=== PATIENT | female | born 1950 | race Caucasian/White ===

== ENCOUNTER 2016-08-09 09:53 | Emergency (ER) | payer OTHER, MEDICARE ==
[2016-08-09 09:59] VITALS: TEMP 98.5; BMI 39.1
--- NOTE | 2016-08-09 10:20 | PDOC ---
History of Present Illness - General History Source: Patient Exam Limitations: No Limitations - History of Present Illness Initial Comments: 08/09/16 10:45 The patient is a 65 year old female, with a significant past medical history of mantle cell lymphoma, NIDDM, diverticulitis, anxiety, bladder dysfunction, HTN, and ITP who presents to the emergency department with bilateral leg discoloration. She also has chief complaints of SOB for 3 months and some change in mental status which she attributes to her xanax. She reports her SOB is often made worse with any strenuous activity. She denies recent fevers, chills, headache or dizziness. She denies recent nausea, vomit, diarrhea or constipation. She denies recent dysuria, frequency, urgency or hematuria. She denies recent chest pain. Allergies: As per nursing notes. Past surgical history: Splenectomy, cervical laminectomy x2 Social history: Nonsmoker. Denies EtOH use and drug use. PCP: <Rich Soliman - Last Filed: 08/09/16 11:40> - General History Source: Patient Exam Limitations: No Limitations <Madisyn Hinkle - Last Filed: 08/09/16 12:43> - General Stated Complaint: LEG DISCOLORATION Time Seen by Provider: 08/09/16 10:17 Past History <Rich Soliman - Last Filed: 08/09/16 11:40> - Past Medical History Anemia: No Asthma: No Cancer: Yes (lymphoma) Cardiac Disorders: No CVA: No COPD: No CHF: No Dementia: No Diabetes: Yes (niddm) GI Disorders: Yes (DIVERTICULITIS) Disorders: Yes (bladder dysfunction) HTN: No Hypercholesterolemia: No Liver Disease: No Psychiatric Problems: Yes (ANXIETY) Seizures: No Thyroid Disease: No - Surgical History Abdominal Surgery: Yes (SPLEENECTOMY) Appendectomy: No Cardiac Surgery: No Cholecystectomy: No Lung Surgery: No Neurologic Surgery: (cervical laminectomy x 2) Orthopedic Surgery: Yes (Anterior and posterior cervical laminectomy with fusion ) - Psycho/Social/Smoking Cessation Hx Anxiety: Yes Suicidal Ideation: No Smoking Status: No Smoking History: Never smoked Have you smoked in the past 12 months: No Number of Cigarettes Smoked Daily: 0 If you are a former smoker, when did you quit?: 2001 Information on smoking cessation initiated: No Hx Alcohol Use: No Drug/Substance Use Hx: No Substance Use Type: None Hx Substance Use Treatment: No <Madisyn Hinkle - Last Filed: 08/09/16 12:43> - Past Medical History Allergies/Adverse Reactions: Allergies Allergy/AdvReac Type Severity Reaction Status Date / Time ciprofloxacin HCl Allergy Intermediate Itching Verified 08/09/16 09:59 [From Cipro] levofloxacin [From Levaquin] Allergy Intermediate Rash Verified 08/09/16 09:59 atorvastatin calcium Allergy Mild muscle Verified 08/09/16 09:59 [From Lipitor] aches Home Medications: Ambulatory Orders Sertraline HCl [Zoloft -] 25 mg PO DAILY 08/28/14 Lisinopril [Prinivil] 10 mg PO DAILY #30 tablet 09/09/14 Alprazolam [Xanax] 0.5 mg PO Q8H PRN #0 tablet 09/10/14 Morphine *Sr* [MS Contin -] 30 mg PO TID #0 tablet.sa 09/10/14 Pantoprazole Sodium [Protonix -] 40 mg PO DAILY #0 tablet.ec 09/10/14 Glipizide [Glucotrol Xl] 5 mg PO BID 11/12/15 Metformin HCl [Metformin HCl ER] 1,000 mg PO BID 03/31/16 Morphine Sulfate 15 mg PO QID PRN 03/31/16 Pregabalin [Lyrica] 25 mg PO DAILY 03/31/16 Allopurinol [Zyloprim -] 150 mg PO DAILY #60 tablet 04/07/16 Amlodipine Besylate 10 mg PO DAILY #30 tablet 04/07/16 Amlodipine Besylate [Norvasc -] 5 mg PO DAILY #30 tablet 04/07/16 Prednisone [Deltasone] 50 mg PO DAILY #42 tablet 04/07/16 Review of Systems - Review of Systems Able to Perform ROS?: Yes Comments:: 08/09/16 10:45 GENERAL/CONSTITUTIONAL: No: fever, chills, weakness, loss of appetite. HEAD, EYES, EARS, NOSE AND THROAT: No: change in vision, ear pain, discharge, sore throat, throat swelling. CARDIOVASCULAR: No: chest pain, lightheadedness, palpitations, syncope RESPIRATORY: +SOB. No: cough, wheezing, hemoptysis, stridor. GASTROINTESTINAL: No: nausea, vomiting, diarrhea, abdominal cramping, rectal bleeding, constipation. GENITOURINARY: No: dysuria, hematuria, frequency, urgency, flank pain. MUSCULOSKELETAL: No: back pain, neck pain, joint pain, muscle swelling or pain SKIN : +bilateral leg discoloration. No: lesions, pallor, rash or easy bruising. NEUROLOGIC: No: headache, vertigo, paresthesias, weakness ENDOCRINE: No: unexplained weight gain or loss HEMATOLOGIC/LYMPHATIC: No: anemia, easy bleeding, swelling nodes. <Rich Soliman - Last Filed: 08/09/16 11:40> *Physical Exam - Vital Signs Last Vital Signs Temp Pulse Resp BP Pulse Ox 98.5 F 95 H 18 159/96 95 08/09/16 09:54 08/09/16 09:54 08/09/16 09:54 08/09/16 09:54 08/09/16 09:54 - Physical Exam Comments: 08/09/16 11:02 GENERAL: The patient is in no acute distress. HEAD: Normal with no signs of trauma. EYES: PERRLA, EOMI, sclera anicteric, conjunctiva clear. ENT: Ears normal, nares patent, oropharynx clear without exudates. Moist mucous membranes. NECK: Normal range of motion, supple without lymphadenopathy, JVD, or masses. LUNGS: Questionable faint crackles at the bases. HEART: Regular rate and rhythm, normal S1 and S2 without murmur, rub or gallop. ABDOMEN: Soft, nontender, normoactive bowel sounds. No guarding, no rebound. No masses palpable. EXTREMITIES: Normal range of motion, no edema. No clubbing or cyanosis. No erythema, or tenderness. NEUROLOGICAL: Cranial nerves II through XII grossly intact. Normal speech. No focal neurological deficits. MUSCULOSKELETAL: Back non-tender to palpation, no CVA tenderness SKIN: Lower extremity petechiae. Warm, Dry, normal turgor. <Rich Soliman - Last Filed: 08/09/16 11:40> - Vital Signs Last Vital Signs Temp Pulse Resp BP Pulse Ox 98.5 F 95 H 18 159/96 95 08/09/16 09:54 08/09/16 09:54 08/09/16 09:54 08/09/16 09:54 08/09/16 09:54 <Madisyn Hinkle - Last Filed: 08/09/16 12:43> ED Treatment Course - LABORATORY CBC & Chemistry Diagram: 08/09/16 10:40 08/09/16 10:20 <Rich Soliman - Last Filed: 08/09/16 11:40> - LABORATORY CBC & Chemistry Diagram: 08/09/16 10:40 08/09/16 10:20 <Madisyn Hinkle - Last Filed: 08/09/16 12:43> Medical Decision Making - Medical Decision Making 08/09/16 11:40 Call made to , awaiting call back <Rich Soliman - Last Filed: 08/09/16 11:40> - Medical Decision Making 08/09/16 10:20 A portion of this note was documented by scribe services under my direction. I have reviewed the details of the note, within reason, and agree with the documentation with the following case summary and management plan written by me. Nursing documentation reviewed and incorporated into medical decision making 08/09/16 10:53 This is a 65 yo F with a history mantle cell lymphoma, NIDDM, diverticulitis, anxiety, bladder dysfunction, HTN, and ITP who presents to the emergency department due to bilateral lower extremity purpura/petechiae. Pt denies chest pain Pt reports 3 months of shortness of breath (cxrs in the past nml) Pt was recently admitted to the hospital for ITP (platelet count as low as 8), started on Steroids and IVIG with recovery of her platelet count to nml PT denies headache, head trauma Pt denies hematuria Pt denies rectal bleeding 08/09/16 10:57 Will check labs Will check CXR will re assess Pt may need admission, steroids, IVIG again 08/09/16 11:32 Laboratory Tests 08/09/16 08/09/16 10:20 10:40 WBC 10.8 H D Hgb 10.8 Hct 34.7 BUN 23 H D Creatinine 1.2 H 08/09/16 12:[address] Ty Pt does not follow up in the office He does not think pt needs to be admitted at this time She needs repeat labs in 2 days This was reviewed with Dr Mcfarlane who will see her in the office I have reviewed this with the patient she states she had a prescription for labs written by Karson I have enouraged her to be sure that those labs are reviewed with someone - Denys or Karson Clinical Impression: ITP, petechiae <Madisyn Hinkle - Last Filed: 08/09/16 12:43> *DC/Admit/Observation/Transfer - Attestations Scribe Attestion: 08/09/16 10:24 Documentation prepared by Rich Soliman, acting as biomedical engineering professor for Madisyn Hinkle MD. <Rich Soliman - Last Filed: 08/09/16 11:40> - Discharge Dispostion Admit: No <Madisyn Hinkle - Last Filed: 08/09/16 12:43> Diagnosis at time of Disposition: ITP (idiopathic thrombocytopenic purpura) - Discharge Dispostion Disposition: HOME Condition at time of disposition: Stable - Referrals Referrals: Subhash Mcfarlane MD [Primary Care Provider] - Rafael Ty MD [Staff Physician] - - Patient Instructions Printed Discharge Instructions: DI for Petechiae Additional Instructions: Thank you for coming in to the Er Please re check your CBC in 2 days Please follow up with Karson leon/or Denys in 2 days Return to the ER for any other concerns or complaints
[2016-08-09 10:50] LABS: BASOPHIL 1.1 % (0-2.0); EOSINOPHIL 2.9 % (0-4.5); MEAN CELL VOLUME 83.8 fl (80-96); MEAN PLT VOLUME 10.3 fl (7.5-11.1); RDW 17.3 % (11.6-15.6); WHITE BLOOD COUNT 10.8 K/mm3 (4.0-10.0)
[2016-08-09 11:20] LABS: ALBUMIN 3.4 g/dl (3.4-5.0); BILIRUBIN,TOTAL 0.2 mg/dL (0.2-1.0); CALCIUM 8.7 mg/dL (8.5-10.1); CREATININE 1.2 mg/dL (0.55-1.02); TOT PROT 7.5 g/dl (6.4-8.2)
[2016-08-09 11:34] LABS: PLATELET COUNT 50 K/MM3 (134-434)
[2016-08-09 11:37] LABS: INR 1.04 (0.82-1.09); PROTHROMBIN TIME (PATIENT) 11.5 SEC (9.98-11.88)
[2016-08-09 13:28] VITALS: BP 133/88; PULSE 68
== END 2016-08-09 12:45 | disposition home or self-care (01) ==
LOC: JER 09:53
DX: D69.3 Immune thrombocytopenic purpura (principal); C85.80 Other specified types of non-Hodgkin lymphoma, unspecified site; E11.9 Type 2 diabetes mellitus without complications; Z79.84 Long term (current) use of oral hypoglycemic drugs; I10 Essential (primary) hypertension; F41.9 Anxiety disorder, unspecified; N31.9 Neuromuscular dysfunction of bladder, unspecified
CPT/HCPCS: 36415; 71010-TC; 80053; 85025; 85610; 86850; 86900; 86901; 99282-25

== ENCOUNTER 2016-10-22 16:47 | Inpatient (IN) | payer OTHER, MEDICARE ==
[2016-10-22] MEDS ORDERED: ALPRAZolam 0.25 MG TABLET PO ONE (17:42)
[2016-10-22] MEDS ORDERED: ALPRAZolam 0.25 MG TABLET ONE (17:51)
[2016-10-22 18:18] LABS: EOSINOPHIL 1.7 % (0-4.5); MCH 23.9 pg (25.7-33.7); MCHC 30.5 g/dl (32.0-36.0); MEAN CELL VOLUME 78.2 fl (80-96); MEAN PLT VOLUME 12.4 fl (7.5-11.1); NEUTROPHILS 78.4 % (42.8-82.8); RDW 18.2 % (11.6-15.6); WHITE BLOOD COUNT 12.3 K/mm3 (4.0-10.0)
--- NOTE | 2016-10-22 18:22 | PDOC ---
History of Present Illness <Guanakito Cronin - Last Filed: 10/22/16 19:31> - General History Source: Patient, Family, Old Records Exam Limitations: No Limitations - History of Present Illness Initial Comments: 10/22/16 18:23 The patient is a 66 year old female presemting with her family, with a significant past medical history of mantle cell lymphoma, NIDDM, diverticulitis , anxiety, bladder dysfunction, HTN, and ITP, who presents to the emergency department after being sent by her PMD with bilateral lower extremity petechiae. She notes that the petechiae is mostly localized in the legs, from the ankle to the knees. She denies any kind of trauma. She denies any kind of bleeding from any sites. She states that her last platelet count was drawn on 10/10/2016 and was 50. She notes that she has been to the ED in the past for similar episodes. She also reports shortness of breath and nausea associated with her chief complaint. The patient denies chest pain, headache and dizziness. Denies fever, chills, cough, nausea, vomit, diarrhea and constipation. Denies dysuria, frequency, urgency and hematuria. Allergies: levofloxacin, lipitor, ciprofloxacin HCl Past surgical history: Splenectomy, cervical laminectomy x2 Social history: Nonsmoker. Denies EtOH use and drug use. PMD - Dr. Subhash Mcfarlane Oncologist - Dr. Rafael yT <Vipul Mills - Last Filed: 10/22/16 19:56> - General Chief Complaint: Redness To Affected Area Stated Complaint: PCP SENT/BLEEDING FROM LEGS/LOW PLATELET Time Seen by Provider: 10/22/16 17:40 Past History - Past Medical History Anemia: No Asthma: No Cancer: Yes (lymphoma) Cardiac Disorders: No CVA: No COPD: No CHF: No Dementia: No Diabetes: Yes (niddm) GI Disorders: Yes (DIVERTICULITIS) Disorders: Yes (bladder dysfunction) HTN: No Hypercholesterolemia: No Liver Disease: No Psychiatric Problems: Yes (ANXIETY) Seizures: No Thyroid Disease: No - Surgical History Abdominal Surgery: Yes (SPLEENECTOMY) Appendectomy: No Cardiac Surgery: No Cholecystectomy: No Lung Surgery: No Neurologic Surgery: (cervical laminectomy x 2) Orthopedic Surgery: Yes (Anterior and posterior cervical laminectomy with fusion ) - Psycho/Social/Smoking Cessation Hx Anxiety: Yes Suicidal Ideation: No Smoking Status: No Smoking History: Never smoked Have you smoked in the past 12 months: No Number of Cigarettes Smoked Daily: 0 If you are a former smoker, when did you quit?: 2001 Information on smoking cessation initiated: No Hx Alcohol Use: No Drug/Substance Use Hx: No Substance Use Type: None Hx Substance Use Treatment: No <Guanakito Cronin - Last Filed: 10/22/16 19:31> <Vipul Mills - Last Filed: 10/22/16 19:56> - Past Medical History Allergies/Adverse Reactions: Allergies Allergy/AdvReac Type Severity Reaction Status Date / Time ciprofloxacin HCl Allergy Intermediate Itching Verified 10/22/16 16:49 [From Cipro] levofloxacin [From Levaquin] Allergy Intermediate Rash Verified 10/22/16 16:49 atorvastatin calcium Allergy Mild muscle Verified 10/22/16 16:49 [From Lipitor] aches Home Medications: Ambulatory Orders Sertraline HCl [Zoloft -] 25 mg PO DAILY 08/28/14 Lisinopril [Prinivil] 10 mg PO DAILY #30 tablet 09/09/14 Alprazolam [Xanax] 0.5 mg PO Q8H PRN #0 tablet 09/10/14 Morphine *Sr* [MS Contin -] 30 mg PO TID #0 tablet.sa 09/10/14 Pantoprazole Sodium [Protonix -] 40 mg PO DAILY #0 tablet.ec 09/10/14 Glipizide [Glucotrol Xl] 5 mg PO BID 11/12/15 Metformin HCl [Metformin HCl ER] 1,000 mg PO BID 03/31/16 Morphine Sulfate 15 mg PO QID PRN 03/31/16 Allopurinol [Zyloprim -] 150 mg PO DAILY #60 tablet 04/07/16 Albuterol Sulfate Inhaler - [Ventolin Hfa Inhaler -] 1 - 2 inh PO Q4H 08/09/16 Calcium Carbonate 648 mg PO BID 08/09/16 Potassium Citrate [Potassium Citrate ER] 10 meq PO TID 08/09/16 Review of Systems - Review of Systems Constitutional: No: Chills, Fever HEENTM: No: Nose Bleeding Respiratory: No: Cough, Shortness of Breath Cardiac (ROS): No: Chest Pain ABD/GI: No: Blood Streaked Bowels : No: Hematuria Integumentary: Yes: Rash. No: Bruising Neurological: No: Headache All Other Systems: Reviewed and Negative <Guanakito Cronin - Last Filed: 10/22/16 19:31> *Physical Exam - Vital Signs Last Vital Signs Temp Pulse Resp BP Pulse Ox 97.9 F 101 H 18 147/104 93 L 10/22/16 16:50 10/22/16 16:50 10/22/16 16:50 10/22/16 16:50 10/22/16 16:50 <Guanakito Cronin - Last Filed: 10/22/16 19:31> - Vital Signs Last Vital Signs Temp Pulse Resp BP Pulse Ox 97.9 F 101 H 18 147/104 93 L 10/22/16 16:50 10/22/16 16:50 10/22/16 16:50 10/22/16 16:50 10/22/16 16:50 - Physical Exam Comments: 10/22/16 18:23 GENERAL: The patient is awake, alert, and fully oriented, in no acute distress. HEAD: Normal with no signs of trauma. EYES: Pupils equal, round and reactive to light, extraocular movements intact, sclera anicteric, conjunctiva clear with no pallor. ENT: Ears normal, nares patent, oropharynx clear without exudates. Moist mucous membranes. NECK: Normal range of motion, supple without lymphadenopathy, JVD, or masses. LUNGS: Breath sounds equal, clear to auscultation bilaterally. No wheeze/ crackles. HEART: Regular rate and rhythm, normal S1 and S2 without murmur or rub .ABDOMEN: Soft/nontender/nondistended. BS wnl. No guarding or rebound. No palpable masses. No hepatosplenomegaly. EXTREMITIES: Normal range of motion, no edema. No clubbing or cyanosis. No cords , erythema, or tenderness. NEUROLOGICAL: Cranial nerves II through XII grossly intact. Normal speech. PSYCH: Normal mood, normal affect. SKIN: (+) Multiple individual patechiae up the the knee, no confluence or indulgence <Vipul Mills - Last Filed: 10/22/16 19:56> Heart Score/ECG Review #1 ECG reviewed & interpreted by me at: 17:57 General ECG Interpretation: Sinus Rhythm, Normal Rate (99), Normal Intervals ( IRBBB), No acute ischemic changes <Guanakito Cronin - Last Filed: 10/22/16 19:31> ED Treatment Course - LABORATORY CBC & Chemistry Diagram: 10/22/16 18:04 10/22/16 18:04 - Medications Given in the ED: ED Medications Discontinued Medications Generic Name Dose Route Start Last Admin Trade Name Freq PRN Reason Stop Dose Admin Alprazolam 0.5 mg 10/22/16 17:42 10/22/16 17:54 Xanax - PO 10/22/16 17:43 0.5 mg ONCE ONE Administration <Guanakito Cronin - Last Filed: 10/22/16 19:31> - LABORATORY CBC & Chemistry Diagram: 10/22/16 18:04 10/22/16 18:20 - Medications Given in the ED: ED Medications Discontinued Medications Generic Name Dose Route Start Last Admin Trade Name Freq PRN Reason Stop Dose Admin Alprazolam 0.5 mg 10/22/16 17:42 10/22/16 17:54 Xanax - PO 10/22/16 17:43 0.5 mg ONCE ONE Administration <Vipul Mills - Last Filed: 10/22/16 19:56> Medical Decision Making - Medical Decision Making 10/22/16 18:13 66y/o F h/o mantle cell lymphoma and chronic ITP p/w atraumatic and otherwise asymptomatic petechiae to b/l lower legs that began yesterday. no other stigmata of bleeding, sent for platelet check by Dr. Mcfarlane. VSS, O2 98% well appearing b/l individual petechiea to the knees, no confluence/swelling/ecchymosis nvi no other bleeding/brusing check cbc and coags transfuse as needed. has received IVIG for past exacerbations reassess - discuss with Dr. Ty, her dispatcher refinery 10/22/16 18:46 Baseline hemoglobin of 10.2, but platelets decreased at 19,000, down from 50, 000 on 10/10. Will consult with Dr. Ty, will likely need treatment. 10/22/16 19:12 D/W Dr. Orellana, who knows the patient well. Recommends platelet transfusion, prednisone up to 1mg/kg, and admission for IVIG. Pt agrees, no clinical change. Dr. Mcfarlane's service called for admission. 10/22/16 19:31 Accepted for inpatient med/surg by Dr. Mcfarlane. <Guanakito Cronin - Last Filed: 10/22/16 19:31> - Medical Decision Making 10/22/16 19:52 Dr. Ty was called regarding the patient at 6:40pm. Dr. Orellana covering. Dr. Orellana was consulted regarding the patient at 7:08pm [phone] Dr. Mcfarlane was called regarding the patient at 7:09pm Dr. Mcfarlane was consulted regarding the patient at 7:30pm [phone] <Vipul Mills - Last Filed: 10/22/16 19:56> *DC/Admit/Observation/Transfer - Discharge Dispostion Admit: Yes <Guanakito Cronin - Last Filed: 10/22/16 19:31> - Attestations Scribe Attestion: 10/22/16 18:24 Documentation prepared by Vipul Mills, acting as medical investigator for Guanakito Cronin MD <Vipul Mills - Last Filed: 10/22/16 19:56> Diagnosis at time of Disposition: ITP (idiopathic thrombocytopenic purpura), Thrombopenia Mantle cell lymphoma Qualifiers: Lymphoma site: unspecified region Qualified Code(s): C83.10 - Mantle cell lymphoma, unspecified site - Discharge Dispostion Condition at time of disposition: Stable - Referrals
[2016-10-22 18:25] LABS: PLATELET COUNT 19 K/MM3 (134-434)
[2016-10-22 18:46] LABS: INR 1.08 (0.82-1.09); PROTHROMBIN TIME (PATIENT) 11.9 SEC (9.98-11.88)
[2016-10-22 18:48] LABS: ACTIVATED PTT 29.3 SECONDS (26.9-34.4)
[2016-10-22] MEDS ORDERED: predniSONE 20 MG TABLET (UD) PO ONE (19:09)
[2016-10-22] MEDS ORDERED: predniSONE 20 MG TABLET (UD) ONE (19:15)
[2016-10-22 19:32] LABS: ALBUMIN 3.6 g/dl (3.4-5.0); BILIRUBIN,TOTAL 0.3 mg/dL (0.2-1.0); CALCIUM 9.1 mg/dL (8.5-10.1); COCKROFT - GAULT 53.6095; CREATININE 1.7 mg/dL (0.55-1.02); TOT PROT 8.4 g/dl (6.4-8.2)
[2016-10-22] MEDS ORDERED: ALBUTEROL SO4 6.7 GM HFA INHALER IH PRN (20:15)
--- NOTE | 2016-10-22 20:22 | HP ---
Admitting History and Physical - Admission Chief Complaint: Spots on legs History of Present Illness: 66 yo female, h/o ITP, Mantle cell lymphoma with thrombocytopenia, noted spots on legs, similar to petechiae that she has had with previous low platelet readings. Had been hospitalized about 7 months ago with platelets 6000 at that time. Was started at that time on IVIG and Prednisone and responded well. Lately platelets had been dropping, down to 50,000 on 10/10/16. 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 History Source: Patient, Medical Record Limitations to Obtaining History: No Limitations - Past Medical History Cardiovascular: Yes: HTN Pulmonary: Yes: Other (diaphragmatic hernia) Gastrointestinal: Yes: Diverticulitis (osteoarthritis right hip) Renal/: Yes: Renal Calculi, UTI, Other (bladder dysfunction) Heme/Onc: Yes: Thrombocytopenia (s/p splenectomy), Other (lymphoma -Mantle cell) Psych: Yes: Anxiety, Depression Musculoskeletal: Yes: Chronic low back pain, Osteoarthritis (right hip) Rheumatology: Yes: Other (degenerative spine disease) Endocrine: Yes: Diabetes Mellitus - Past Surgical History Past Surgical History: Yes: Laminectomy (cervical laminectomy x2 (2001)), Splenectomy, Thoracotomy - Smoking History Smoking history: Never smoked Have you smoked in the past 12 months: No Aproximately how many cigarettes per day: 0 If you are a former smoker, when did you quit?: 2001 - Alcohol/Substance Use Hx Alcohol Use: No History of Substance Use: reports: None - Social History ADL: Independent 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, , 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 History of Recent Travel: No Home Medications - Allergies Allergies/Adverse Reactions: Allergies Allergy/AdvReac Type Severity Reaction Status Date / Time ciprofloxacin HCl Allergy Intermediate Itching Verified 10/22/16 16:49 [From Cipro] levofloxacin [From Levaquin] Allergy Intermediate Rash Verified 10/22/16 16:49 atorvastatin calcium Allergy Mild muscle Verified 10/22/16 16:49 [From Lipitor] aches - Home Medications Home Medications: Ambulatory Orders Sertraline HCl [Zoloft -] 25 mg PO DAILY 08/28/14 Lisinopril [Prinivil] 10 mg PO DAILY #30 tablet 09/09/14 Alprazolam [Xanax] 0.5 mg PO Q8H PRN #0 tablet 09/10/14 Morphine *Sr* [MS Contin -] 30 mg PO TID #0 tablet.sa 09/10/14 Pantoprazole Sodium [Protonix -] 40 mg PO DAILY #0 tablet.ec 09/10/14 Glipizide [Glucotrol Xl] 5 mg PO BID 11/12/15 Metformin HCl [Metformin HCl ER] 1,000 mg PO BID 03/31/16 Morphine Sulfate 15 mg PO QID PRN 03/31/16 Allopurinol [Zyloprim -] 150 mg PO DAILY #60 tablet 04/07/16 Albuterol Sulfate Inhaler - [Ventolin Hfa Inhaler -] 1 - 2 inh PO Q4H 08/09/16 Calcium Carbonate 648 mg PO BID 08/09/16 Potassium Citrate [Potassium Citrate ER] 10 meq PO TID 08/09/16 Family Disease History - Family Disease History Family Disease History: Heart Disease: Mother, Other: Father (thrombocytopenia) , Daughter (hypothyroidism) Review of Systems - Review of Systems Constitutional: reports: Lethargy. denies: Chills, Fever, Loss of Appetite Eyes: reports: No Symptoms HENT: denies: Difficult Swallowing, Epistaxis Neck: denies: Stiffness Cardiovascular: denies: Chest Pain, Palpitations Respiratory: reports: SOB on Exertion Gastrointestinal: denies: Abdominal Pain, Diarrhea, Melena, Nausea, Rectal Bleeding Genitourinary: denies: Burning, Dysuria Psychiatric: reports: Anxiety Physical Examination Vital Signs: Vital Signs Temperature 98.2 F 10/22/16 19:59 Pulse Rate 89 10/22/16 19:59 Respiratory Rate 18 10/22/16 19:59 Blood Pressure 121/58 10/22/16 19:59 O2 Sat by Pulse Oximetry (%) 94 L 10/22/16 19:59 Constitutional: Yes: Well Nourished, No Distress, Calm Eyes: Yes: Conjunctiva Clear, EOM Intact, PERRL HENT: Yes: Atraumatic, Normocephalic Neck: Yes: Supple, Trachea Midline Cardiovascular: Yes: Regular Rate and Rhythm, S1, S2. No: Murmur Respiratory: Yes: Regular, Diminished (left chest) Gastrointestinal: Yes: Normal Bowel Sounds, Soft, Abdomen, Obese. No: Distention, Tenderness Extremities: Yes: Other (petechiae lower extremities) Edema: No Neurological: Yes: Alert, Oriented Labs: Laboratory Results - last 24 hr 10/22/16 10/22/16 10/22/16 18:04 18:04 18:04 WBC 12.3 H RBC 4.28 Hgb 10.2 L Hct 33.5 MCV 78.2 L MCHC 30.5 L RDW 18.2 H Plt Count 19 L* D MPV 12.4 H D Neutrophils % 78.4 Lymphocytes % 11.1 Monocytes % 7.8 Eosinophils % 1.7 Basophils % 1.0 INR 1.08 PTT (Actin FS) 29.3 Sodium Cancelled Potassium Cancelled Chloride Cancelled Carbon Dioxide Cancelled Anion Gap Cancelled BUN Cancelled Creatinine Cancelled Creat Clearance w eGFR Cancelled Random Glucose Cancelled Calcium Cancelled Total Bilirubin Cancelled AST Cancelled ALT Cancelled Alkaline Phosphatase Cancelled Total Protein Cancelled Albumin Cancelled Blood Type Antibody Screen 10/22/16 10/22/16 18:04 18:20 WBC RBC Hgb Hct MCV MCHC RDW Plt Count MPV Neutrophils % Lymphocytes % Monocytes % Eosinophils % Basophils % INR PTT (Actin FS) Sodium 133 L Potassium 4.3 Chloride 96 L Carbon Dioxide 27 Anion Gap 10 BUN 36 H D Creatinine 1.7 H D Creat Clearance w eGFR 30.07 Random Glucose 104 D Calcium 9.1 Total Bilirubin 0.3 D AST 20 D ALT 14 D Alkaline Phosphatase 89 Total Protein 8.4 H Albumin 3.6 Blood Type A POSITIVE Antibody Screen Negative Problem List - Problems (1) ITP (idiopathic thrombocytopenic purpura) Assessment/Plan: -platelets dropped below 20,000 again -to restart IVIG, Prednisone -to get platelet transfusion for now Code(s): D69.3 - IMMUNE THROMBOCYTOPENIC PURPURA (2) Mantle cell lymphoma Assessment/Plan: -oncology to evaluate (not on active treatment currently) Code(s): C83.10 - MANTLE CELL LYMPHOMA, UNSPECIFIED SITE Qualifiers: Lymphoma site: unspecified region Qualified Code(s): C83.10 - Mantle cell lymphoma, unspecified site (3) Diabetes mellitus Assessment/Plan: -as will be on prednisone, will start insulin sliding scale and antihyperglycemics may hav eto be adjusted Code(s): E11.9 - TYPE 2 DIABETES MELLITUS WITHOUT COMPLICATIONS (4) Diaphragmatic hernia Assessment/Plan: -getting HAUSER due to hernia (eventual repair) Code(s): K44.9 - DIAPHRAGMATIC HERNIA WITHOUT OBSTRUCTION OR GANGRENE (5) HTN (hypertension) Assessment/Plan: -on lisinopril Code(s): I10 - ESSENTIAL (PRIMARY) HYPERTENSION
[2016-10-22] MEDS: INSULIN SLIDING SCALE (NOVOLOG) 1 VIAL SQ SCH (23:12)
[2016-10-22] MEDS: SODIUM CHLORIDE 1,000 ML IV SCH (23:13)
[2016-10-22] MEDS: CALCIUM CARBONATE 650 MG TABLET PO SCH (23:14)
[2016-10-22] MEDS: morphine SO4 SUSTAINED ACTING 30 MG TABLET.SA PO SCH (23:14)
[2016-10-22] MEDS: POTASSIUM CITRATE/CITRIC ACID 2 MEQ/ML ML PO SCH (23:15)
[2016-10-23] MEDS: ALPRAZolam 0.25 MG TABLET PO PRN ×2 (02:58→18:57)
[2016-10-23 05:05] VITALS: BMI 39.9
[2016-10-23] MEDS: INSULIN SLIDING SCALE (NOVOLOG) 1 VIAL SQ SCH ×4 (06:29→22:30)
[2016-10-23] MEDS: POTASSIUM CITRATE/CITRIC ACID 2 MEQ/ML ML PO SCH ×3 (06:30→21:31)
[2016-10-23] MEDS: morphine SO4 SUSTAINED ACTING 30 MG TABLET.SA PO SCH ×3 (06:30→21:33)
[2016-10-23] MEDS: metFORMIN HCL 500 MG TABLET (FP) PO SCH ×2 (06:31→17:27)
[2016-10-23] MEDS: glipiZIDE 5 MG TABLET (FP) PO SCH ×2 (06:31→17:27)
[2016-10-23 07:59] LABS: BASOPHIL 0.4 % (0-2.0); MCH 24.5 pg (25.7-33.7); MCHC 31.2 g/dl (32.0-36.0); MEAN CELL VOLUME 78.5 fl (80-96); MEAN PLT VOLUME 8.4 fl (7.5-11.1); NEUTROPHILS 88.4 % (42.8-82.8); PLATELET COUNT 48 K/MM3 (134-434); RDW 18.3 % (11.6-15.6)
[2016-10-23 08:37] LABS: ALBUMIN 3.4 g/dl (3.4-5.0); BILIRUBIN,TOTAL 0.3 mg/dL (0.2-1.0); COCKROFT - GAULT 59.5085; CREATININE 1.6 mg/dL (0.55-1.02); TOT PROT 8.2 g/dl (6.4-8.2); URIC ACID 5.1 mg/dL (2.6-7.2)
[2016-10-23] MEDS ORDERED: predniSONE 20 MG TABLET (UD) PO SCH (10:00)
[2016-10-23] MEDS: CALCIUM CARBONATE 650 MG TABLET PO SCH ×2 (10:17→21:31)
[2016-10-23] MEDS: ALLOPURINOL 100 MG TABLET (FP) PO SCH (10:17)
[2016-10-23] MEDS: methylPREDNISolone NA SUCC 125 MG/2 ML VIAL IVPB SCH ×2 (10:17→21:32)
[2016-10-23] MEDS: LISINOPRIL 10 MG TABLET (FP) PO SCH (10:17)
[2016-10-23] MEDS: PANTOPRAZOLE 40 MG TABLET (FP) PO SCH (10:17)
[2016-10-23] MEDS: SERTRALINE HCL 25 MG TABLET (FP) PO SCH (10:18)
[2016-10-23] MEDS: morphine SULFATE IMMEDIATE RELEASE 30 MG TAB PO PRN (10:24)
--- NOTE | 2016-10-23 10:44 | PN ---
Progress Note, Physician History of Present Illness: Patient feeling anxious about platelets, otherwise feeling OK. Did get a pruritic reaction to platelets yesterday, feeling better after Benadryl. - Current Medication List Current Medications: Active Medications Albuterol Sulfate (Ventolin Hfa Inhaler -) 2 puff IH Q4H PRN PRN Reason: SHORT OF BREATH/WHEEZING Allopurinol (Zyloprim -) 150 mg PO DAILY [facility] Last Admin: 10/23/16 10:17 Dose: 150 mg Alprazolam (Xanax -) 0.5 mg PO Q8H PRN PRN Reason: ANXIETY Last Admin: 10/23/16 02:58 Dose: 0.5 mg Calcium Carbonate (Calcium Carbonate -) 650 mg PO BID [facility] Last Admin: 10/23/16 10:17 Dose: 650 mg Glipizide (Glucotrol -) 5 mg PO BIDAC [facility] Last Admin: 10/23/16 06:31 Dose: 5 mg Sodium Chloride (Normal Saline -) 1,000 mls @ 42 mls/hr IV ASDIR [facility] Last Admin: 10/22/16 23:13 Dose: 42 mls/hr Insulin Aspart (Novolog Vial Sliding Scale -) 1 vial SQ ACHS [facility] PRN Reason: Protocol Last Admin: 10/23/16 06:29 Dose: 2 units Lisinopril (Prinivil) 10 mg PO DAILY [facility] Last Admin: 10/23/16 10:17 Dose: 10 mg Metformin HCl (Glucophage -) 1,000 mg PO BIDAC [facility] Last Admin: 10/23/16 06:31 Dose: 1,000 mg Methylprednisolone Sodium Succinate (Solu-Medrol -) 55 mg IVPB Q12H [facility] Last Admin: 10/23/16 10:17 Dose: 55 mg Morphine Sulfate (Ms Contin -) 30 mg PO TID [facility] Last Admin: 10/23/16 06:30 Dose: 30 mg Morphine Sulfate (Msir -) 15 mg PO Q4H PRN PRN Reason: breakthrough pain Last Admin: 10/23/16 10:24 Dose: 15 mg Pantoprazole Sodium (Protonix -) 40 mg PO DAILY [facility] Last Admin: 10/23/16 10:17 Dose: 40 mg Potassium Citrate/Citric Acid (Cytra-K -) 10 meq PO TID [facility] Last Admin: 10/23/16 06:30 Dose: 10 meq Sertraline HCl (Zoloft -) 25 mg PO DAILY [facility] Last Admin: 10/23/16 10:18 Dose: 25 mg - Objective Vital Signs: Vital Signs Temperature 97.5 F L 10/23/16 06:00 Pulse Rate 74 10/23/16 06:00 Respiratory Rate 20 10/23/16 06:00 Blood Pressure 126/68 10/23/16 06:00 O2 Sat by Pulse Oximetry (%) 99 10/23/16 01:55 Constitutional: Yes: No Distress, Calm Neck: Yes: Supple, Trachea Midline Cardiovascular: Yes: Regular Rate and Rhythm, S1, S2. No: Murmur Respiratory: Yes: Regular, Diminished (left side) Gastrointestinal: Yes: Normal Bowel Sounds, Soft, Abdomen, Obese. No: Distention, Tenderness Extremities: Yes: Other (petechiae on legs bilaterally) Neurological: Yes: Alert, Oriented Labs: CBC, BMP 10/23/16 06:00 10/23/16 06:00 INR, PTT INR 1.08 (0.82-1.09) 10/22/16 18:04 Problem List - Problems (1) ITP (idiopathic thrombocytopenic purpura) Code(s): D69.3 - IMMUNE THROMBOCYTOPENIC PURPURA (2) Mantle cell lymphoma Code(s): C83.10 - MANTLE CELL LYMPHOMA, UNSPECIFIED SITE Qualifiers: Lymphoma site: unspecified region Qualified Code(s): C83.10 - Mantle cell lymphoma, unspecified site (3) Diabetes mellitus Code(s): E11.9 - TYPE 2 DIABETES MELLITUS WITHOUT COMPLICATIONS (4) Diaphragmatic hernia Code(s): K44.9 - DIAPHRAGMATIC HERNIA WITHOUT OBSTRUCTION OR GANGRENE (5) HTN (hypertension) Code(s): I10 - ESSENTIAL (PRIMARY) HYPERTENSION Assessment/Plan Current Active Problems ITP (idiopathic thrombocytopenic purpura) (Acute) Mantle cell lymphoma (Acute) DM Anxiety Osteoarthritis Diaphragmatic Hernia -hematology to follow -to get IVIG, solumedrol for thrombocytopenia
--- NOTE | 2016-10-23 10:54 | EKG ---
Test Reason : Blood Pressure : / mmHG Vent. Rate : 099 BPM Atrial Rate : 099 BPM P-R Int : 140 ms QRS Dur : 088 ms QT Int : 368 ms P-R-T Axes : 056 -31 044 degrees QTc Int : 472 ms POOR DATA QUALITY, INTERPRETATION MAY BE ADVERSELY AFFECTED NORMAL SINUS RHYTHM LEFT AXIS DEVIATION LEFT ANTERIOR FASCICULAR BLOCK ABNORMAL ECG Confirmed by MD MELITON, PALOMA ([id number]) on 10/23/2016 10:54:11 AM Referred By: Confirmed By:PALOMA COELHO MD
[2016-10-23] MEDS: DOCUSATE SODIUM 100 MG CAPSULE (FP) PO SCH ×2 (12:20→21:31)
--- NOTE | 2016-10-23 15:10 | CONSULT ---
Consult - text type - Consultation Consultation Note: The patient is a 65 year old female, with a significant past medical history of mantle cell lymphoma, NIDDM, diverticulitis, anxiety, bladder dysfunction, HTN, and ITP who presents to the emergency department with bilateral petechial rash. She also has chief complaints of SOB for 3 months and some change in mental status which she attributes to her xanax. She denies recent fevers, chills, headache or dizziness. She denies recent nausea, vomit, diarrhea or constipation. She denies recent dysuria, frequency, urgency or hematuria. Allergies: As per nursing notes. Past surgical history: Splenectomy, cervical laminectomy x2 Social history: Nonsmoker. Denies EtOH use and drug use. - Past Medical History Cancer: Yes (lymphoma) Diabetes: Yes (niddm) GI Disorders: Yes (DIVERTICULITIS) Disorders: Yes (bladder dysfunction) Psychiatric Problems: Yes (ANXIETY) - Surgical History Abdominal Surgery: Yes (SPLENECTOMY) Neurologic Surgery: (cervical laminectomy x 2) Orthopedic Surgery: Yes (Anterior and posterior cervical laminectomy with fusion ) - Psycho/Social/Smoking Cessation Hx Anxiety: Yes Smoking History: Never smoked - Past Medical History Allergies/Adverse Reactions: Allergies Allergy/AdvReac Type Severity Reaction Status Date / Time ciprofloxacin HCl Allergy Intermediate Itching Verified 08/09/16 09:59 [From Cipro] levofloxacin [From Levaquin] Allergy Intermediate Rash Verified 08/09/16 09:59 atorvastatin calcium Allergy Mild muscle Verified 08/09/16 09:59 [From Lipitor] aches Home Medications: Ambulatory Orders Sertraline HCl [Zoloft -] 25 mg PO DAILY 08/28/14 Lisinopril [Prinivil] 10 mg PO DAILY #30 tablet 09/09/14 Alprazolam [Xanax] 0.5 mg PO Q8H PRN #0 tablet 09/10/14 Morphine *Sr* [MS Contin -] 30 mg PO TID #0 tablet.sa 09/10/14 Pantoprazole Sodium [Protonix -] 40 mg PO DAILY #0 tablet.ec 09/10/14 Glipizide [Glucotrol Xl] 5 mg PO BID 11/12/15 Metformin HCl [Metformin HCl ER] 1,000 mg PO BID 03/31/16 Morphine Sulfate 15 mg PO QID PRN 03/31/16 Pregabalin [Lyrica] 25 mg PO DAILY 03/31/16 Allopurinol [Zyloprim -] 150 mg PO DAILY #60 tablet 04/07/16 Amlodipine Besylate 10 mg PO DAILY #30 tablet 04/07/16 Amlodipine Besylate [Norvasc -] 5 mg PO DAILY #30 tablet 04/07/16 Prednisone [Deltasone] 50 mg PO DAILY #42 tablet 04/07/16 Active Medications Albuterol Sulfate (Ventolin Hfa Inhaler -) 2 puff IH Q4H PRN PRN Reason: SHORT OF BREATH/WHEEZING Allopurinol (Zyloprim -) 150 mg PO DAILY [facility] Last Admin: 10/23/16 10:17 Dose: 150 mg Alprazolam (Xanax -) 0.5 mg PO Q8H PRN PRN Reason: ANXIETY Last Admin: 10/23/16 02:58 Dose: 0.5 mg Calcium Carbonate (Calcium Carbonate -) 650 mg PO BID [facility] Last Admin: 10/23/16 10:17 Dose: 650 mg Docusate Sodium (Colace -) 100 mg PO BID [facility] Last Admin: 10/23/16 12:20 Dose: 100 mg Glipizide (Glucotrol -) 5 mg PO BIDAC [facility] Last Admin: 10/23/16 06:31 Dose: 5 mg Sodium Chloride (Normal Saline -) 1,000 mls @ 42 mls/hr IV ASDIR [facility] Last Admin: 10/22/16 23:13 Dose: 42 mls/hr Insulin Aspart (Novolog Vial Sliding Scale -) 1 vial SQ ACHS [facility] PRN Reason: Protocol Last Admin: 10/23/16 11:53 Dose: Not Given Lisinopril (Prinivil) 10 mg PO DAILY [facility] Last Admin: 10/23/16 10:17 Dose: 10 mg Metformin HCl (Glucophage -) 1,000 mg PO BIDAC [facility] Last Admin: 10/23/16 06:31 Dose: 1,000 mg Methylprednisolone Sodium Succinate (Solu-Medrol -) 55 mg IVPB Q12H [facility] Last Admin: 10/23/16 10:17 Dose: 55 mg Morphine Sulfate (Ms Contin -) 30 mg PO TID [facility] Last Admin: 10/23/16 14:06 Dose: 30 mg Morphine Sulfate (Msir -) 15 mg PO Q4H PRN PRN Reason: breakthrough pain Last Admin: 10/23/16 10:24 Dose: 15 mg Pantoprazole Sodium (Protonix -) 40 mg PO DAILY [facility] Last Admin: 10/23/16 10:17 Dose: 40 mg Potassium Citrate/Citric Acid (Cytra-K -) 10 meq PO TID [facility] Last Admin: 10/23/16 14:06 Dose: 10 meq Sertraline HCl (Zoloft -) 25 mg PO DAILY [facility] Last Admin: 10/23/16 10:18 Dose: 25 mg *Physical Exam - Vital Signs Last Vital Signs Temp Pulse Resp BP Pulse Ox 98 F 62 20 143/68 99 10/23/16 13:42 10/23/16 13:42 10/23/16 13:42 10/23/16 13:42 10/23/16 01:55 Cor: RSR, No murmurs, No gallops Lungs: Clear to P&A Abd: Soft, Normal bowel sounds, No organomegaly Ext:No significant edema Abnormal Lab Results 10/22/16 10/22/16 10/23/16 18:04 18:20 06:00 WBC 12.3 H Hgb 10.2 L 10.0 L Hct 32.1 L MCV 78.2 L 78.5 L MCHC 30.5 L 31.2 L RDW 18.2 H 18.3 H Plt Count 19 L* D 48 L D MPV 12.4 H D Neutrophils % 88.4 H Monocytes % 2.4 L ESR Sodium 133 L Chloride 96 L BUN 36 H D Creatinine 1.7 H D Random Glucose C-Reactive Protein Total Protein 8.4 H 10/23/16 10/23/16 10/23/16 06:00 06:00 06:00 WBC Hgb Hct MCV MCHC RDW Plt Count MPV Neutrophils % Monocytes % ESR 62 H Sodium 131 L Chloride 96 L BUN 32 H Creatinine 1.6 H Random Glucose 218 H D C-Reactive Protein 4.9 H Total Protein Home Medication List Medication Instructions Recorded Confirmed Type Sertraline HCl [Zoloft -] 25 mg PO DAILY 08/28/14 10/22/16 History Glipizide [Glucotrol Xl] 5 mg PO BID 11/12/15 10/22/16 History Metformin HCl [Metformin HCl ER] 1,000 mg PO BID 03/31/16 10/22/16 History Morphine Sulfate 15 mg PO QID PRN 03/31/16 10/22/16 History Albuterol Sulfate Inhaler - 1 - 2 inh PO Q4H 08/09/16 10/22/16 History [Ventolin Hfa Inhaler -] Calcium Carbonate 648 mg PO BID 08/09/16 10/22/16 History Potassium Citrate [Potassium 10 meq PO TID 08/09/16 10/22/16 History Citrate ER] Active Medications Generic Name Dose Route Start Last Admin Trade Name Freq PRN Reason Stop Dose Admin Albuterol Sulfate 2 puff 10/22/16 20:15 Ventolin Hfa Inhaler - IH Q4H PRN SHORT OF BREATH/WHEEZING Allopurinol 150 mg 10/23/16 10:00 10/23/16 10:17 Zyloprim - PO 150 mg DAILY [facility] Administration Alprazolam 0.5 mg 10/22/16 20:10 10/23/16 02:58 Xanax - PO 0.5 mg Q8H PRN Administration ANXIETY Calcium Carbonate 650 mg 10/22/16 22:00 10/23/16 10:17 Calcium Carbonate - PO 650 mg BID [facility] Administration Docusate Sodium 100 mg 10/23/16 11:15 10/23/16 12:20 Colace - PO 100 mg BID [facility] Administration Glipizide 5 mg 10/23/16 07:00 10/23/16 06:31 Glucotrol - PO 5 mg BIDAC [facility] Administration Sodium Chloride 1,000 mls @ 42 mls/hr 10/22/16 21:45 10/22/16 23:13 Normal Saline - IV 42 mls/hr ASDIR [facility] Administration Insulin Aspart 1 vial 10/22/16 22:00 10/23/16 11:53 Novolog Vial Sliding Scale - SQ Not Given ACHS [facility] Protocol Lisinopril 10 mg 10/23/16 10:00 10/23/16 10:17 Prinivil PO 10 mg DAILY [facility] Administration Metformin HCl 1,000 mg 10/23/16 07:00 10/23/16 06:31 Glucophage - PO 1,000 mg BIDAC [facility] Administration Methylprednisolone Sodium Succinate 55 mg 10/23/16 10:00 10/23/16 10:17 Solu-Medrol - IVPB 55 mg Q12H [facility] Administration Morphine Sulfate 30 mg 10/22/16 22:00 10/23/16 14:06 Ms Contin - PO 30 mg TID [facility] Administration Morphine Sulfate 15 mg 10/22/16 20:10 10/23/16 10:24 Msir - PO 15 mg Q4H PRN Administration breakthrough pain Pantoprazole Sodium 40 mg 10/23/16 10:00 10/23/16 10:17 Protonix - PO 40 mg DAILY [facility] Administration Potassium Citrate/Citric Acid 10 meq 10/22/16 22:00 10/23/16 14:06 Cytra-K - PO 10 meq TID [facility] Administration Sertraline HCl 25 mg 10/23/16 10:00 10/23/16 10:18 Zoloft - PO 25 mg DAILY [facility] Administration A/P 66 y/o patient with ITP/mantle cell lymphoma, h/o antiphospholipids, nephrolithiasis, DM, comes in with recurrent ITP petechial rash over lower ext. . No other bleeding issues s/p 1 unit monodonor platelets On medrol 55mg bid [facility] BMBX 04/10- < 5% mantle cell lymphoma repeat CT chest ? IVIG ? cytoxan ? Ibrutinib gentle hydration , await cr to improve further
--- NOTE | 2016-10-23 17:03 | CONSULT ---
Consult Consult Specialty:: Nephrolog ( [facility]) Referred by:: Dr. Orellana Reason for Consultation:: Abnormal kidney functions - History of Present Illness Chief Complaint: Multiple petiechiae on the lower extremities. History of Present Illness: The patient has h/o ITP, Mantle cell lymphoma, admitted with multiple lower extremity petiechie. She has h/o similar episodes in the past, at which time her platelets were very low, and and she had responded to Steroids and IVIG. Had minimal Shortness of breath. Her other medical issues include Nephrolithiasis, Hypertension, D2, O/A of the hip., UTI, Chronic low back pain. - History Source History Provided By: Patient Limitations to Obtaining History: No Limitations - Past Medical History Cardio/Vascular: Yes: HTN Pulmonary: Yes: Other (diaphragmatic hernia) Gastrointestinal: Yes: Diverticulitis (osteoarthritis right hip) Renal/: Yes: Renal Calculi, UTI, Other (bladder dysfunction) Psych: Yes: Anxiety, Depression Musculoskeletal: Yes: Chronic low back pain, Osteoarthritis (right hip) Rheumatology: Yes: Other (degenerative spine disease) Endocrine: Yes: Diabetes Mellitus Additional Medical History: ITP, Mantle Cell Lymphoma - Past Surgical History Past Surgical History: Yes: Laminectomy (cervical laminectomy x2 (2001)), Splenectomy, Thoracotomy - Alcohol/Substance Use Hx Alcohol Use: No History of Substance Use: reports: None - Smoking History Smoking history: Never smoked Have you smoked in the past 12 months: No Aproximately how many cigarettes per day: 0 If you are a former smoker, when did you quit?: 2001 - Social History Usual Living Arrangement: Other ADL: Independent 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, , 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 History of Recent Travel: No Home Medications - Allergies Allergies/Adverse Reactions: Allergies Allergy/AdvReac Type Severity Reaction Status Date / Time ciprofloxacin HCl Allergy Intermediate Itching Verified 10/22/16 16:49 [From Cipro] levofloxacin [From Levaquin] Allergy Intermediate Rash Verified 10/22/16 16:49 atorvastatin calcium Allergy Mild muscle Verified 10/22/16 16:49 [From Lipitor] aches - Home Medications Home Medications: Ambulatory Orders Sertraline HCl [Zoloft -] 25 mg PO DAILY 08/28/14 Lisinopril [Prinivil] 10 mg PO DAILY #30 tablet 09/09/14 Alprazolam [Xanax] 0.5 mg PO Q8H PRN #0 tablet 09/10/14 Morphine *Sr* [MS Contin -] 30 mg PO TID #0 tablet.sa 09/10/14 Pantoprazole Sodium [Protonix -] 40 mg PO DAILY #0 tablet.ec 09/10/14 Glipizide [Glucotrol Xl] 5 mg PO BID 11/12/15 Metformin HCl [Metformin HCl ER] 1,000 mg PO BID 03/31/16 Morphine Sulfate 15 mg PO QID PRN 03/31/16 Allopurinol [Zyloprim -] 150 mg PO DAILY #60 tablet 04/07/16 Albuterol Sulfate Inhaler - [Ventolin Hfa Inhaler -] 1 - 2 inh PO Q4H 08/09/16 Calcium Carbonate 648 mg PO BID 08/09/16 Potassium Citrate [Potassium Citrate ER] 10 meq PO TID 08/09/16 Family Disease History - Family Disease History Family Disease History: Heart Disease: Mother, Other: Father (thrombocytopenia) , Daughter (hypothyroidism) Review of Systems - Review of Systems Constitutional: denies: Chills, Diaphoresis, Fever, Lethargy Cardiovascular: reports: Shortness of Breath (mild). denies: Chest Pain, Palpitations Respiratory: denies: Cough, Hemoptysis Gastrointestinal: denies: Melena, Rectal Bleeding, Vomiting Blood Musculoskeletal: reports: Back Pain Integumentary: reports: Rash Physical Exam Vital Signs: Vital Signs Temperature 98 F 10/23/16 13:42 Pulse Rate 62 10/23/16 13:42 Respiratory Rate 20 10/23/16 13:42 Blood Pressure 143/68 10/23/16 13:42 O2 Sat by Pulse Oximetry (%) 99 10/23/16 01:55 Constitutional: Yes: Well Nourished, No Distress, Calm Eyes: Yes: Conjunctiva Clear HENT: Yes: Normocephalic Neck: Yes: Trachea Midline Cardiovascular: Yes: S1, S2 Respiratory: Yes: CTA Bilaterally, Diminished, Poor Air Entry Gastrointestinal: Yes: Normal Bowel Sounds, Abdomen, Obese Edema: LLE: 1+, RLE: 1+ Integumentary: Yes: Petechiae Labs: CBC, BMP 10/23/16 06:00 10/23/16 06:00 Problem List - Problems (1) ITP (idiopathic thrombocytopenic purpura) Code(s): D69.3 - IMMUNE THROMBOCYTOPENIC PURPURA (2) Mantle cell lymphoma Code(s): C83.10 - MANTLE CELL LYMPHOMA, UNSPECIFIED SITE Qualifiers: Lymphoma site: unspecified region Qualified Code(s): C83.10 - Mantle cell lymphoma, unspecified site (3) Thrombopenia Code(s): D69.6 - THROMBOCYTOPENIA, UNSPECIFIED (4) Abdominal pain Code(s): R10.9 - UNSPECIFIED ABDOMINAL PAIN (5) Diabetes mellitus Code(s): E11.9 - TYPE 2 DIABETES MELLITUS WITHOUT COMPLICATIONS (6) HTN (hypertension) Code(s): I10 - ESSENTIAL (PRIMARY) HYPERTENSION (7) Nephrolithiasis Code(s): N20.0 - CALCULUS OF KIDNEY (8) Spinal stenosis Code(s): M48.00 - SPINAL STENOSIS, SITE UNSPECIFIED (9) Staghorn kidney stones Code(s): N20.0 - CALCULUS OF KIDNEY (10) Urinary tract infection Code(s): N39.0 - URINARY TRACT INFECTION, SITE NOT SPECIFIED (11) Chronic kidney disease Code(s): N18.9 - CHRONIC KIDNEY DISEASE, UNSPECIFIED Assessment/Plan 66 y/o female admitted with petechial lesions of the lower extremities and Thrombocytopenia. Started on IV Medrol. The patient has h/o good response with IVIG. NO overt contraindication for the use of the same. The patient has h/o Chronic Nephrolithiasis. On KCitrate. Will continue the same. The Renal functions are close to her base line. Will monitor. Thanks again. Barbie Sabillon MD
[2016-10-23] MEDS ORDERED: PT OWN MED DRAWER 7, Y5N ONE (21:14)
[2016-10-23] MEDS: SODIUM CHLORIDE 1,000 ML IV SCH (22:30)
[2016-10-24] MEDS: SODIUM CHLORIDE 1,000 ML IV SCH ×2 (02:41→22:01)
[2016-10-24] MEDS: morphine SULFATE IMMEDIATE RELEASE 30 MG TAB PO PRN ×2 (04:39→20:59)
[2016-10-24] MEDS ORDERED: PT OWN MED DRAWER 7, Y5N ONE ×3 (05:15→20:11)
[2016-10-24] MEDS: morphine SO4 SUSTAINED ACTING 30 MG TABLET.SA PO SCH ×3 (06:08→21:55)
[2016-10-24] MEDS: POTASSIUM CITRATE/CITRIC ACID 2 MEQ/ML ML PO SCH ×3 (06:11→21:57)
[2016-10-24] MEDS: glipiZIDE 5 MG TABLET (FP) PO SCH ×2 (06:49→17:20)
[2016-10-24] MEDS: metFORMIN HCL 500 MG TABLET (FP) PO SCH ×2 (06:49→17:20)
[2016-10-24] MEDS: INSULIN SLIDING SCALE (NOVOLOG) 1 VIAL SQ SCH ×4 (06:50→22:20)
[2016-10-24] MEDS ORDERED: INSULIN (NOVOLOG) ASPART 100 UNITS/ML 10ML VIAL ONE (07:49)
[2016-10-24 08:06] LABS: BASOPHIL 0.2 % (0-2.0); MCH 24.7 pg (25.7-33.7); MCHC 31.2 g/dl (32.0-36.0); MEAN PLT VOLUME 10.8 fl (7.5-11.1); NEUTROPHILS 87.7 % (42.8-82.8); PLATELET COUNT 46 K/MM3 (134-434); RDW 18.1 % (11.6-15.6); WHITE BLOOD COUNT 10.7 K/mm3 (4.0-10.0)
[2016-10-24 08:42] LABS: CALCIUM 8.6 mg/dL (8.5-10.1); COCKROFT - GAULT 63.58; CREATININE 1.5 mg/dL (0.55-1.02)
[2016-10-24] MEDS: ALLOPURINOL 100 MG TABLET (FP) PO SCH (09:01)
[2016-10-24] MEDS: PANTOPRAZOLE 40 MG TABLET (FP) PO SCH (09:02)
[2016-10-24] MEDS: LISINOPRIL 10 MG TABLET (FP) PO SCH (09:02)
[2016-10-24] MEDS: ALPRAZolam 0.25 MG TABLET PO PRN ×2 (09:02→22:21)
[2016-10-24] MEDS: DOCUSATE SODIUM 100 MG CAPSULE (FP) PO SCH ×2 (09:02→21:55)
[2016-10-24] MEDS: methylPREDNISolone NA SUCC 125 MG/2 ML VIAL IVPB SCH ×2 (09:03→21:55)
[2016-10-24] MEDS: SERTRALINE HCL 25 MG TABLET (FP) PO SCH (11:08)
[2016-10-24] MEDS: CALCIUM CARBONATE 650 MG TABLET PO SCH ×2 (13:45→21:57)
--- NOTE | 2016-10-24 14:51 | PN ---
Progress Note, Physician Chief Complaint: Ms Painting says she is feeling a little nauseous today but not severe. No emesis. No cp or sob. Rash on legs improving. - Current Medication List Current Medications: Active Medications Albuterol Sulfate (Ventolin Hfa Inhaler -) 2 puff IH Q4H PRN PRN Reason: SHORT OF BREATH/WHEEZING Allopurinol (Zyloprim -) 150 mg PO DAILY [facility] Last Admin: 10/24/16 09:01 Dose: 150 mg Alprazolam (Xanax -) 0.5 mg PO Q8H PRN PRN Reason: ANXIETY Last Admin: 10/24/16 09:02 Dose: 0.5 mg Calcium Carbonate (Calcium Carbonate -) 650 mg PO BID [facility] Last Admin: 10/24/16 13:45 Dose: 650 mg Docusate Sodium (Colace -) 100 mg PO BID [facility] Last Admin: 10/24/16 09:02 Dose: Not Given Glipizide (Glucotrol -) 5 mg PO BIDAC [facility] Last Admin: 10/24/16 06:49 Dose: 5 mg Sodium Chloride (Normal Saline -) 1,000 mls @ 42 mls/hr IV ASDIR [facility] Last Admin: 10/24/16 02:41 Dose: 42 mls/hr Insulin Aspart (Novolog Vial Sliding Scale -) 1 vial SQ ACHS [facility] PRN Reason: Protocol Last Admin: 10/24/16 11:41 Dose: Not Given Lisinopril (Prinivil) 10 mg PO DAILY [facility] Last Admin: 10/24/16 09:02 Dose: 10 mg Metformin HCl (Glucophage -) 1,000 mg PO BIDAC [facility] Last Admin: 10/24/16 06:49 Dose: 1,000 mg Methylprednisolone Sodium Succinate (Solu-Medrol -) 55 mg IVPB Q12H [facility] Last Admin: 10/24/16 09:03 Dose: 55 mg Morphine Sulfate (Ms Contin -) 30 mg PO TID [facility] Last Admin: 10/24/16 13:45 Dose: 30 mg Morphine Sulfate (Msir -) 15 mg PO Q4H PRN PRN Reason: breakthrough pain Last Admin: 10/24/16 04:39 Dose: 15 mg Pantoprazole Sodium (Protonix -) 40 mg PO DAILY [facility] Last Admin: 10/24/16 09:02 Dose: 40 mg Potassium Citrate/Citric Acid (Cytra-K -) 10 meq PO TID [facility] Last Admin: 10/24/16 13:46 Dose: 10 meq Sertraline HCl (Zoloft -) 25 mg PO DAILY [facility] Last Admin: 10/24/16 11:08 Dose: 25 mg - Objective Vital Signs: Vital Signs Temperature 98 F 10/24/16 13:28 Pulse Rate 43 L 10/24/16 13:28 Respiratory Rate 20 10/24/16 13:28 Blood Pressure 131/61 10/24/16 13:28 O2 Sat by Pulse Oximetry (%) 99 10/24/16 09:00 Constitutional: Yes: No Distress, Calm, Obese Cardiovascular: Yes: Regular Rate and Rhythm. No: Gallop, Murmur, Rub Respiratory: Yes: Regular, CTA Bilaterally. No: Rales, Rhonchi, Wheezes Gastrointestinal: Yes: Normal Bowel Sounds, Soft. No: Distention, Tenderness Extremities: Yes: Other (petechiae on BLE) Edema: No Labs: CBC, BMP 10/24/16 07:00 10/24/16 07:00 INR, PTT INR 1.08 (0.82-1.09) 10/22/16 18:04 Problem List - Problems (1) ITP (idiopathic thrombocytopenic purpura) Assessment/Plan: -hematology following -on steroids -s/p platelet transfusion -possible IVIg per hematology orders Code(s): D69.3 - IMMUNE THROMBOCYTOPENIC PURPURA (2) Chronic kidney disease Assessment/Plan: -appreciate Dr Valentin's assistance -approaching baseline Code(s): N18.9 - CHRONIC KIDNEY DISEASE, UNSPECIFIED Qualifiers: Chronic kidney disease stage: stage 3 (moderate) Qualified Code(s): N18.3 - Chronic kidney disease, stage 3 (moderate) (3) Mantle cell lymphoma Assessment/Plan: -stable Code(s): C83.10 - MANTLE CELL LYMPHOMA, UNSPECIFIED SITE Qualifiers: Lymphoma site: unspecified region Qualified Code(s): C83.10 - Mantle cell lymphoma, unspecified site (4) Diabetes mellitus Assessment/Plan: -diabetic diet -continue glipizide and metformin -continue SSI -elevated glucose secondary to steroids Code(s): E11.9 - TYPE 2 DIABETES MELLITUS WITHOUT COMPLICATIONS (5) Diaphragmatic hernia Assessment/Plan: -with bowel sounds in the chest exam -outpatient follow up Code(s): K44.9 - DIAPHRAGMATIC HERNIA WITHOUT OBSTRUCTION OR GANGRENE (6) HTN (hypertension) Assessment/Plan: -well controlled Code(s): I10 - ESSENTIAL (PRIMARY) HYPERTENSION
--- NOTE | 2016-10-24 15:31 | PN ---
Progress Note, Physician Chief Complaint: The patient seen in her bed. Comfortable. Good urine output. No hematuria. The petiechial lesions are unchanged. History of Present Illness: The patient has h/o ITP, Mantle cell lymphoma, admitted with multiple lower extremity petiechie. The petechial lesions are unchanged. Her platelets are 46.000 today. Her other medical issues include Nephrolithiasis, Hypertension, D2, O/A of the hip., UTI, Chronic low back pain. - Current Medication List Current Medications: Active Medications Albuterol Sulfate (Ventolin Hfa Inhaler -) 2 puff IH Q4H PRN PRN Reason: SHORT OF BREATH/WHEEZING Allopurinol (Zyloprim -) 150 mg PO DAILY [facility] Last Admin: 10/24/16 09:01 Dose: 150 mg Alprazolam (Xanax -) 0.5 mg PO Q8H PRN PRN Reason: ANXIETY Last Admin: 10/24/16 09:02 Dose: 0.5 mg Calcium Carbonate (Calcium Carbonate -) 650 mg PO BID [facility] Last Admin: 10/24/16 13:45 Dose: 650 mg Docusate Sodium (Colace -) 100 mg PO BID [facility] Last Admin: 10/24/16 09:02 Dose: Not Given Glipizide (Glucotrol -) 5 mg PO BIDAC [facility] Last Admin: 10/24/16 06:49 Dose: 5 mg Sodium Chloride (Normal Saline -) 1,000 mls @ 42 mls/hr IV ASDIR [facility] Last Admin: 10/24/16 02:41 Dose: 42 mls/hr Insulin Aspart (Novolog Vial Sliding Scale -) 1 vial SQ ACHS [facility] PRN Reason: Protocol Last Admin: 10/24/16 11:41 Dose: Not Given Lisinopril (Prinivil) 10 mg PO DAILY [facility] Last Admin: 10/24/16 09:02 Dose: 10 mg Metformin HCl (Glucophage -) 1,000 mg PO BIDAC [facility] Last Admin: 10/24/16 06:49 Dose: 1,000 mg Methylprednisolone Sodium Succinate (Solu-Medrol -) 55 mg IVPB Q12H [facility] Last Admin: 10/24/16 09:03 Dose: 55 mg Morphine Sulfate (Ms Contin -) 30 mg PO TID [facility] Last Admin: 10/24/16 13:45 Dose: 30 mg Morphine Sulfate (Msir -) 15 mg PO Q4H PRN PRN Reason: breakthrough pain Last Admin: 10/24/16 04:39 Dose: 15 mg Pantoprazole Sodium (Protonix -) 40 mg PO DAILY [facility] Last Admin: 10/24/16 09:02 Dose: 40 mg Potassium Citrate/Citric Acid (Cytra-K -) 10 meq PO TID [facility] Last Admin: 10/24/16 13:46 Dose: 10 meq Sertraline HCl (Zoloft -) 25 mg PO DAILY [facility] Last Admin: 10/24/16 11:08 Dose: 25 mg - Objective Vital Signs: Vital Signs Temperature 98 F 10/24/16 13:28 Pulse Rate 43 L 10/24/16 13:28 Respiratory Rate 20 10/24/16 13:28 Blood Pressure 131/61 10/24/16 13:28 O2 Sat by Pulse Oximetry (%) 99 10/24/16 09:00 Constitutional: Yes: No Distress, Calm Cardiovascular: Yes: S1, S2 Respiratory: Yes: CTA Bilaterally, Diminished Gastrointestinal: Yes: Normal Bowel Sounds, Abdomen, Obese Edema: LLE: 1+, RLE: 1+ Neurological: Yes: Alert, Oriented Psychiatric: Yes: Oriented Labs: CBC, BMP 10/24/16 07:00 10/24/16 07:00 INR, PTT INR 1.08 (0.82-1.09) 10/22/16 18:04 Problem List - Problems (1) ITP (idiopathic thrombocytopenic purpura) Code(s): D69.3 - IMMUNE THROMBOCYTOPENIC PURPURA (2) Mantle cell lymphoma Code(s): C83.10 - MANTLE CELL LYMPHOMA, UNSPECIFIED SITE Qualifiers: Lymphoma site: unspecified region Qualified Code(s): C83.10 - Mantle cell lymphoma, unspecified site (3) Thrombopenia Code(s): D69.6 - THROMBOCYTOPENIA, UNSPECIFIED (4) Abdominal pain Code(s): R10.9 - UNSPECIFIED ABDOMINAL PAIN (5) Diabetes mellitus Code(s): E11.9 - TYPE 2 DIABETES MELLITUS WITHOUT COMPLICATIONS (6) HTN (hypertension) Code(s): I10 - ESSENTIAL (PRIMARY) HYPERTENSION (7) Nephrolithiasis Code(s): N20.0 - CALCULUS OF KIDNEY (8) Spinal stenosis Code(s): M48.00 - SPINAL STENOSIS, SITE UNSPECIFIED (9) Staghorn kidney stones Code(s): N20.0 - CALCULUS OF KIDNEY (10) Urinary tract infection Code(s): N39.0 - URINARY TRACT INFECTION, SITE NOT SPECIFIED (11) Chronic kidney disease Code(s): N18.9 - CHRONIC KIDNEY DISEASE, UNSPECIFIED Qualifiers: Chronic kidney disease stage: stage 3 (moderate) Qualified Code(s): N18.3 - Chronic kidney disease, stage 3 (moderate) Assessment/Plan 66 y/o female admitted with petechial lesions of the lower extremities and Thrombocytopenia. Started on IV Medrol. The patient has h/o good response with IVIG. NO overt contraindication for the use of the same. The patient has h/o Chronic Nephrolithiasis. On KCitrate. Will continue the same. The Serum Cr 1.5. Almost at her baseline. Will discuss with dr. Orellana about possible IVIG. Barbie Sabillon MD
--- NOTE | 2016-10-24 22:39 | PN ---
Progress Note (short form) - Note Progress Note: Patient seen and examined no c/o Last Vital Signs Temp Pulse Resp BP Pulse Ox 98.8 F 52 L 20 147/72 99 10/24/16 22:00 10/24/16 22:00 10/24/16 22:00 10/24/16 22:00 10/24/16 09:00 Cor: RSR, No murmurs, No gallops Lungs: Clear to P&A Abd: Soft, Normal bowel sounds, No organomegaly Ext:No significant edema Abnormal Lab Results 10/24/16 10/24/16 07:00 07:00 WBC 10.7 H Hgb 10.0 L Hct 32.1 L MCV 79.0 L MCHC 31.2 L RDW 18.1 H Plt Count 46 L Neutrophils % 87.7 H Monocytes % 3.6 L Sodium 133 L BUN 35 H Creatinine 1.5 H Random Glucose 226 H Active Medications Generic Name Dose Route Start Last Admin Trade Name Freq PRN Reason Stop Dose Admin Acetaminophen 650 mg 10/25/16 10:00 Tylenol - PO 10/29/16 10:01 DAILY [facility] Albuterol Sulfate 2 puff 10/22/16 20:15 Ventolin Hfa Inhaler - IH Q4H PRN SHORT OF BREATH/WHEEZING Allopurinol 150 mg 10/23/16 10:00 10/24/16 09:01 Zyloprim - PO 150 mg DAILY [facility] Administration Alprazolam 0.5 mg 10/22/16 20:10 10/24/16 22:21 Xanax - PO 0.5 mg Q8H PRN Administration ANXIETY Calcium Carbonate 650 mg 10/22/16 22:00 10/24/16 21:57 Calcium Carbonate - PO 650 mg BID [facility] Administration Diphenhydramine HCl 50 mg 10/25/16 10:00 Benadryl Injection - IVPB 10/29/16 10:01 DAILY [facility] Docusate Sodium 100 mg 10/23/16 11:15 10/24/16 21:55 Colace - PO 100 mg BID [facility] Administration Glipizide 5 mg 10/23/16 07:00 10/24/16 17:20 Glucotrol - PO 5 mg BIDAC [facility] Administration Sodium Chloride 1,000 mls @ 42 mls/hr 10/22/16 21:45 10/24/16 22:01 Normal Saline - IV 42 mls/hr ASDIR [facility] Administration Immune Globulin 400 mls @ 100 mls/hr 10/25/16 10:00 Gamunex-C IVPB 10/29/16 13:59 DAILY [facility] Insulin Aspart 1 vial 10/22/16 22:00 10/24/16 22:20 Novolog Vial Sliding Scale - SQ Not Given ACHS [facility] Protocol Lisinopril 10 mg 10/23/16 10:00 10/24/16 09:02 Prinivil PO 10 mg DAILY [facility] Administration Metformin HCl 1,000 mg 10/23/16 07:00 10/24/16 17:20 Glucophage - PO 1,000 mg BIDAC [facility] Administration Methylprednisolone Sodium Succinate 55 mg 10/23/16 10:00 10/24/16 21:55 Solu-Medrol - IVPB 55 mg Q12H [facility] Administration Morphine Sulfate 30 mg 10/22/16 22:00 10/24/16 21:55 Ms Contin - PO 30 mg TID [facility] Administration Morphine Sulfate 15 mg 10/22/16 20:10 10/24/16 20:59 Msir - PO 15 mg Q4H PRN Administration breakthrough pain Ondansetron HCl 4 mg 10/24/16 22:20 10/24/16 22:48 Zofran Injection IVPB 4 mg Q8H PRN Administration NAUSEA AND/OR VOMITING Pantoprazole Sodium 40 mg 10/23/16 10:00 10/24/16 09:02 Protonix - PO 40 mg DAILY [facility] Administration Potassium Citrate/Citric Acid 10 meq 10/22/16 22:00 10/24/16 21:57 Cytra-K - PO 10 meq TID [facility] Administration Sertraline HCl 25 mg 10/23/16 10:00 10/24/16 11:08 Zoloft - PO 25 mg DAILY [facility] Administration a/p 66 y/o with mantle cell lymphoma/itp/obesity/CKD/nephrolitjoasis to start ivig --400mh/kg perez 5 days, benadryl/tylenol/steroid premeds gentle hydraton discussed with nephrology
[2016-10-24] MEDS: ONDANSETRON 4 MG/2 ML VIAL IVPB PRN (22:48)
[2016-10-25] MEDS: morphine SULFATE IMMEDIATE RELEASE 30 MG TAB PO PRN ×2 (04:06→20:14)
[2016-10-25] MEDS: SODIUM CHLORIDE 1,000 ML IV SCH ×2 (04:08→22:30)
[2016-10-25] MEDS: morphine SO4 SUSTAINED ACTING 30 MG TABLET.SA PO SCH ×3 (05:59→22:29)
[2016-10-25] MEDS: POTASSIUM CITRATE/CITRIC ACID 2 MEQ/ML ML PO SCH ×2 (06:00→16:07)
[2016-10-25] MEDS: ONDANSETRON 4 MG/2 ML VIAL IVPB PRN ×2 (06:18→15:51)
[2016-10-25] MEDS: INSULIN SLIDING SCALE (NOVOLOG) 1 VIAL SQ SCH ×4 (06:35→22:35)
[2016-10-25] MEDS: glipiZIDE 5 MG TABLET (FP) PO SCH ×2 (06:35→18:00)
[2016-10-25] MEDS: metFORMIN HCL 500 MG TABLET (FP) PO SCH ×2 (06:35→18:00)
[2016-10-25 07:42] LABS: BASOPHIL 0.1 % (0-2.0); MCH 24.6 pg (25.7-33.7); MCHC 31.3 g/dl (32.0-36.0); MEAN CELL VOLUME 78.6 fl (80-96); MEAN PLT VOLUME 10.6 fl (7.5-11.1); NEUTROPHILS 88.6 % (42.8-82.8); PLATELET COUNT 56 K/MM3 (134-434); RDW 18.6 % (11.6-15.6); WHITE BLOOD COUNT 10.4 K/mm3 (4.0-10.0)
[2016-10-25 08:29] LABS: CALCIUM 8.4 mg/dL (8.5-10.1); COCKROFT - GAULT 68.2125; CREATININE 1.4 mg/dL (0.55-1.02); PHOSPHOROUS 3.5 mg/dL (2.5-4.9)
[2016-10-25] MEDS: ACETAMINOPHEN 325 MG TABLET (FP) PO SCH (09:17)
[2016-10-25] MEDS: ALLOPURINOL 100 MG TABLET (FP) PO SCH (09:18)
[2016-10-25] MEDS: methylPREDNISolone NA SUCC 125 MG/2 ML VIAL IVPB SCH ×2 (09:18→22:29)
[2016-10-25] MEDS: PANTOPRAZOLE 40 MG TABLET (FP) PO SCH (09:19)
[2016-10-25] MEDS: LISINOPRIL 10 MG TABLET (FP) PO SCH (09:19)
[2016-10-25] MEDS: SERTRALINE HCL 25 MG TABLET (FP) PO SCH (09:19)
[2016-10-25] MEDS ORDERED: IMMUNE GLOBULIN (IgG) 20 GM VIAL IVPB SCH (10:00)
[2016-10-25] MEDS: IMMUNE GLOB,GAM CAPRYLATE(IGG) 40 GM IVPB SCH (11:32)
--- NOTE | 2016-10-25 14:28 | PN ---
Progress Note, Physician Chief Complaint: Ms Painting says she is feeling a little jittery from the IVIg but otherwise is doing well. No cp, sob, n/v. - Current Medication List Current Medications: Active Medications Acetaminophen (Tylenol -) 650 mg PO DAILY [facility] Stop: 10/29/16 10:01 Last Admin: 10/25/16 09:17 Dose: 650 mg Albuterol Sulfate (Ventolin Hfa Inhaler -) 2 puff IH Q4H PRN PRN Reason: SHORT OF BREATH/WHEEZING Allopurinol (Zyloprim -) 150 mg PO DAILY [facility] Last Admin: 10/25/16 09:18 Dose: 150 mg Alprazolam (Xanax -) 0.5 mg PO Q8H PRN PRN Reason: ANXIETY Last Admin: 10/24/16 22:21 Dose: 0.5 mg Calcium Carbonate (Calcium Carbonate -) 650 mg PO BID [facility] Last Admin: 10/24/16 21:57 Dose: 650 mg Diphenhydramine HCl (Benadryl Injection -) 50 mg IVPB DAILY [facility] Stop: 10/29/16 10:01 Last Admin: 10/25/16 10:49 Dose: 50 mg Docusate Sodium (Colace -) 100 mg PO BID [facility] Last Admin: 10/24/16 21:55 Dose: 100 mg Glipizide (Glucotrol -) 5 mg PO BIDAC [facility] Last Admin: 10/25/16 06:35 Dose: 5 mg Sodium Chloride (Normal Saline -) 1,000 mls @ 42 mls/hr IV ASDIR [facility] Last Admin: 10/25/16 04:08 Dose: 42 mls/hr Immune Globulin (Gamunex-C) 400 mls @ 100 mls/hr IVPB DAILY [facility] Stop: 10/29/16 13:59 Last Admin: 10/25/16 11:32 Dose: 100 mls/hr Insulin Aspart (Novolog Vial Sliding Scale -) 1 vial SQ ACHS [facility] PRN Reason: Protocol Last Admin: 10/25/16 13:24 Dose: Not Given Lisinopril (Prinivil) 10 mg PO DAILY [facility] Last Admin: 10/25/16 09:19 Dose: 10 mg Metformin HCl (Glucophage -) 1,000 mg PO BIDAC [facility] Last Admin: 10/25/16 06:35 Dose: 1,000 mg Methylprednisolone Sodium Succinate (Solu-Medrol -) 55 mg IVPB Q12H [facility] Last Admin: 10/25/16 09:18 Dose: 55 mg Morphine Sulfate (Ms Contin -) 30 mg PO TID [facility] Last Admin: 10/25/16 05:59 Dose: 30 mg Morphine Sulfate (Msir -) 15 mg PO Q4H PRN PRN Reason: breakthrough pain Last Admin: 10/25/16 04:06 Dose: 15 mg Ondansetron HCl (Zofran Injection) 4 mg IVPB Q8H PRN PRN Reason: NAUSEA AND/OR VOMITING Last Admin: 10/25/16 06:18 Dose: 4 mg Pantoprazole Sodium (Protonix -) 40 mg PO DAILY [facility] Last Admin: 10/25/16 09:19 Dose: 40 mg Potassium Citrate/Citric Acid (Cytra-K -) 10 meq PO TID [facility] Last Admin: 10/25/16 06:00 Dose: 10 meq Sertraline HCl (Zoloft -) 25 mg PO DAILY [facility] Last Admin: 10/25/16 09:19 Dose: 25 mg - Objective Vital Signs: Vital Signs Temperature 98.5 F 10/25/16 05:58 Pulse Rate 43 L 10/25/16 05:58 Respiratory Rate 20 10/25/16 05:58 Blood Pressure 137/68 10/25/16 05:58 O2 Sat by Pulse Oximetry (%) 98 10/24/16 21:00 Constitutional: Yes: No Distress, Calm, Obese Cardiovascular: Yes: Regular Rate and Rhythm. No: Gallop, Murmur, Rub Respiratory: Yes: Regular, CTA Bilaterally. No: Rales, Rhonchi, Wheezes Gastrointestinal: Yes: Normal Bowel Sounds, Soft. No: Distention, Tenderness Extremities: Yes: WNL Edema: No Labs: CBC, BMP 10/25/16 06:00 10/25/16 06:00 INR, PTT INR 1.08 (0.82-1.09) 10/22/16 18:04 Problem List - Problems (1) ITP (idiopathic thrombocytopenic purpura) Code(s): D69.3 - IMMUNE THROMBOCYTOPENIC PURPURA (2) Chronic kidney disease Code(s): N18.9 - CHRONIC KIDNEY DISEASE, UNSPECIFIED Qualifiers: Chronic kidney disease stage: stage 3 (moderate) Qualified Code(s): N18.3 - Chronic kidney disease, stage 3 (moderate) (3) Mantle cell lymphoma Code(s): C83.10 - MANTLE CELL LYMPHOMA, UNSPECIFIED SITE Qualifiers: Lymphoma site: unspecified region Qualified Code(s): C83.10 - Mantle cell lymphoma, unspecified site (4) Diabetes mellitus Code(s): E11.9 - TYPE 2 DIABETES MELLITUS WITHOUT COMPLICATIONS (5) Diaphragmatic hernia Code(s): K44.9 - DIAPHRAGMATIC HERNIA WITHOUT OBSTRUCTION OR GANGRENE (6) HTN (hypertension) Code(s): I10 - ESSENTIAL (PRIMARY) HYPERTENSION Assessment/Plan (1) ITP (idiopathic thrombocytopenic purpura) Assessment/Plan: -platelet improving -IVIg started today Code(s): D69.3 - IMMUNE THROMBOCYTOPENIC PURPURA (2) Chronic kidney disease Assessment/Plan: -appreciate Dr Valentin's assistance -approaching baseline -with hyperkalemia -nephrology aware and will treat Code(s): N18.9 - CHRONIC KIDNEY DISEASE, UNSPECIFIED Qualifiers: Chronic kidney disease stage: stage 3 (moderate) Qualified Code(s): N18.3 - Chronic kidney disease, stage 3 (moderate) (3) Mantle cell lymphoma Assessment/Plan: -stable Code(s): C83.10 - MANTLE CELL LYMPHOMA, UNSPECIFIED SITE Qualifiers: Lymphoma site: unspecified region Qualified Code(s): C83.10 - Mantle cell lymphoma, unspecified site (4) Diabetes mellitus Assessment/Plan: -diabetic diet -continue glipizide and metformin -continue SSI -elevated glucose secondary to steroids Code(s): E11.9 - TYPE 2 DIABETES MELLITUS WITHOUT COMPLICATIONS (5) Diaphragmatic hernia Assessment/Plan: -with bowel sounds in the chest exam -outpatient follow up Code(s): K44.9 - DIAPHRAGMATIC HERNIA WITHOUT OBSTRUCTION OR GANGRENE (6) HTN (hypertension) Assessment/Plan: -well controlled Code(s): I10 - ESSENTIAL (PRIMARY) HYPERTENSION
--- NOTE | 2016-10-25 15:25 | PN ---
Progress Note (short form) - Note Progress Note: Patient seen and examined Complains of shortness of breath with minimal exertion. No chest pains Restricted volume of lung secondary to diaphragmatic hernia Begun on Gamma Globulin 0.4 mg/kg x 5 days. On steroids Last Vital Signs Temp Pulse Resp BP Pulse Ox 97.9 F 46 L 20 122/51 98 10/25/16 14:38 10/25/16 14:38 10/25/16 14:38 10/25/16 14:38 10/24/16 21:00 HEENT: DENEEN, EOM Intact Oropharynx: No thrush, No mucositis Neck: Supple Nodes: Without adenopathy Cor: RSR, No murmurs, No gallops Lungs: Clear to P&A Abd: Soft, Normal bowel sounds, No organomegaly Ext:No significant edema Skin: No rashes, Integument intact CBC, BMP 10/25/16 06:00 10/25/16 06:00 Current Medications Generic Name Dose Route Start Last Admin Trade Name Freq PRN Reason Stop Dose Admin Acetaminophen 650 mg 10/25/16 10:00 10/25/16 09:17 Tylenol - PO 10/29/16 10:01 650 mg DAILY [facility] Administration Albuterol Sulfate 2 puff 10/22/16 20:15 Ventolin Hfa Inhaler - IH Q4H PRN SHORT OF BREATH/WHEEZING Allopurinol 150 mg 10/23/16 10:00 10/25/16 09:18 Zyloprim - PO 150 mg DAILY [facility] Administration Alprazolam 0.5 mg 10/22/16 20:10 10/24/16 22:21 Xanax - PO 0.5 mg Q8H PRN Administration ANXIETY Calcium Carbonate 650 mg 10/22/16 22:00 10/24/16 21:57 Calcium Carbonate - PO 650 mg BID [facility] Administration Diphenhydramine HCl 50 mg 10/25/16 10:00 10/25/16 10:49 Benadryl Injection - IVPB 10/29/16 10:01 50 mg DAILY [facility] Administration Docusate Sodium 100 mg 10/23/16 11:15 10/24/16 21:55 Colace - PO 100 mg BID [facility] Administration Glipizide 5 mg 10/23/16 07:00 10/25/16 06:35 Glucotrol - PO 5 mg BIDAC [facility] Administration Sodium Chloride 1,000 mls @ 42 mls/hr 10/22/16 21:45 10/25/16 04:08 Normal Saline - IV 42 mls/hr ASDIR [facility] Administration Immune Globulin 400 mls @ 100 mls/hr 10/25/16 10:00 10/25/16 11:32 Gamunex-C IVPB 10/29/16 13:59 100 mls/hr DAILY [facility] Administration Insulin Aspart 1 vial 10/22/16 22:00 10/25/16 13:24 Novolog Vial Sliding Scale - SQ Not Given ACHS [facility] Protocol Lisinopril 10 mg 10/23/16 10:00 10/25/16 09:19 Prinivil PO 10 mg DAILY [facility] Administration Metformin HCl 1,000 mg 10/23/16 07:00 10/25/16 06:35 Glucophage - PO 1,000 mg BIDAC [facility] Administration Methylprednisolone Sodium Succinate 55 mg 10/23/16 10:00 10/25/16 09:18 Solu-Medrol - IVPB 55 mg Q12H [facility] Administration Morphine Sulfate 30 mg 10/22/16 22:00 10/25/16 05:59 Ms Contin - PO 30 mg TID [facility] Administration Morphine Sulfate 15 mg 10/22/16 20:10 10/25/16 04:06 Msir - PO 15 mg Q4H PRN Administration breakthrough pain Ondansetron HCl 4 mg 10/24/16 22:20 10/25/16 06:18 Zofran Injection IVPB 4 mg Q8H PRN Administration NAUSEA AND/OR VOMITING Pantoprazole Sodium 40 mg 10/23/16 10:00 10/25/16 09:19 Protonix - PO 40 mg DAILY [facility] Administration Potassium Citrate/Citric Acid 10 meq 10/22/16 22:00 10/25/16 06:00 Cytra-K - PO 10 meq TID [facility] Administration Sertraline HCl 25 mg 10/23/16 10:00 10/25/16 09:19 Zoloft - PO 25 mg DAILY [facility] Administration Impression: ITP Mantle cell lymphoma S/P splenectomy Hyperkalemia Pain management Diabetes Mellitus Hypertension Renal insufficiency Plan - d/c K+ Daily chemistries and CBC's Steroids and Gamma globulin
[2016-10-25] MEDS: CALCIUM CARBONATE 650 MG TABLET PO SCH ×2 (16:26→22:29)
--- NOTE | 2016-10-25 17:02 | PN ---
Progress Note (short form) - Note Progress Note: Renal follow up for CKD Pt seen and examined at the bedside no acute complaints getting IVIG no sob, chest pain, Abd pain, N/V/D no dysuria Vital Signs Temperature 97.9 F 10/25/16 14:38 Pulse Rate 46 L 10/25/16 14:38 Respiratory Rate 20 10/25/16 14:38 Blood Pressure 122/51 10/25/16 14:38 O2 Sat by Pulse Oximetry (%) 98 10/24/16 21:00 Intake & Output 10/22/16 10/23/16 10/24/16 10/25/16 23:59 23:59 23:59 23:59 Intake Total 870 1584 2054 720 Balance 870 1584 2054 720 Weight 240 lb 3.2 oz 240 lb 4.8 oz 240 lb 14.4 oz 241 lb Gen: NAD CVS: Braycardic no M/R Lungs :CTA, no rales or wheeze Abd: soft NT/ND Ext: No edema, clubbing or cyanosis : No bladder distension CBC, BMP 10/25/16 06:00 10/25/16 06:00 Current Medications Acetaminophen (Tylenol -) 650 mg PO DAILY [facility] Stop: 10/29/16 10:01 Last Admin: 10/25/16 09:17 Dose: 650 mg Albuterol Sulfate (Ventolin Hfa Inhaler -) 2 puff IH Q4H PRN PRN Reason: SHORT OF BREATH/WHEEZING Allopurinol (Zyloprim -) 150 mg PO DAILY [facility] Last Admin: 10/25/16 09:18 Dose: 150 mg Alprazolam (Xanax -) 0.5 mg PO Q8H PRN PRN Reason: ANXIETY Last Admin: 10/24/16 22:21 Dose: 0.5 mg Calcium Carbonate (Calcium Carbonate -) 650 mg PO BID [facility] Last Admin: 10/25/16 16:26 Dose: 650 mg Diphenhydramine HCl (Benadryl Injection -) 50 mg IVPB DAILY [facility] Stop: 10/29/16 10:01 Last Admin: 10/25/16 10:49 Dose: 50 mg Docusate Sodium (Colace -) 100 mg PO BID [facility] Last Admin: 10/24/16 21:55 Dose: 100 mg Glipizide (Glucotrol -) 5 mg PO BIDAC [facility] Last Admin: 10/25/16 06:35 Dose: 5 mg Sodium Chloride (Normal Saline -) 1,000 mls @ 42 mls/hr IV ASDIR [facility] Last Admin: 10/25/16 04:08 Dose: 42 mls/hr Immune Globulin (Gamunex-C) 400 mls @ 100 mls/hr IVPB DAILY [facility] Stop: 10/29/16 13:59 Last Admin: 10/25/16 11:32 Dose: 100 mls/hr Insulin Aspart (Novolog Vial Sliding Scale -) 1 vial SQ ACHS [facility] PRN Reason: Protocol Last Admin: 10/25/16 13:24 Dose: Not Given Lisinopril (Prinivil) 10 mg PO DAILY [facility] Last Admin: 10/25/16 09:19 Dose: 10 mg Metformin HCl (Glucophage -) 1,000 mg PO BIDAC [facility] Last Admin: 10/25/16 06:35 Dose: 1,000 mg Methylprednisolone Sodium Succinate (Solu-Medrol -) 55 mg IVPB Q12H [facility] Last Admin: 10/25/16 09:18 Dose: 55 mg Morphine Sulfate (Ms Contin -) 30 mg PO TID [facility] Last Admin: 10/25/16 15:52 Dose: 30 mg Morphine Sulfate (Msir -) 15 mg PO Q4H PRN PRN Reason: breakthrough pain Last Admin: 10/25/16 04:06 Dose: 15 mg Ondansetron HCl (Zofran Injection) 4 mg IVPB Q8H PRN PRN Reason: NAUSEA AND/OR VOMITING Last Admin: 10/25/16 15:51 Dose: 4 mg Pantoprazole Sodium (Protonix -) 40 mg PO DAILY [facility] Last Admin: 10/25/16 09:19 Dose: 40 mg Sertraline HCl (Zoloft -) 25 mg PO DAILY [facility] Last Admin: 10/25/16 09:19 Dose: 25 mg A/P 66 year old woman with PMhx of Mantle Cell Lymphoma, ITP, Hydronephrosis, Staghorn Calculi presented with worsening thrombocytopenia #CKD Stage 3 with b/l Hydronephrosis and staghorn calculi Renal function appears stable Repeat US of the Kidneys Continue to trend BUN/Cr while on IVIG continue gentle IVF #Nephrolithiasis Was on K-citra as an outpatient not on it now as pt with mildly elevated K Repeat US #Thrombocytopenia continue IVIG as per Heme #Mild Hyperkalemia Changed diet to low K Thank you Dash Padron DO
[2016-10-25] MEDS: DOCUSATE SODIUM 100 MG CAPSULE (FP) PO SCH ×2 (19:12→22:29)
[2016-10-25] MEDS: ALPRAZolam 0.25 MG TABLET PO PRN (22:28)
[2016-10-26] MEDS: morphine SULFATE IMMEDIATE RELEASE 30 MG TAB PO PRN ×2 (03:17→19:08)
[2016-10-26] MEDS: morphine SO4 SUSTAINED ACTING 30 MG TABLET.SA PO SCH ×3 (06:14→22:05)
[2016-10-26] MEDS: INSULIN SLIDING SCALE (NOVOLOG) 1 VIAL SQ SCH ×4 (06:16→22:07)
[2016-10-26] MEDS: SODIUM CHLORIDE 1,000 ML IV SCH ×2 (06:49→22:02)
[2016-10-26 07:46] LABS: CALCIUM 8.6 mg/dL (8.5-10.1); COCKROFT - GAULT 67.4135; CREATININE 1.4 mg/dL (0.55-1.02); MAGNESIUM 2.2 mg/dL (1.8-2.4); PHOSPHOROUS 3.4 mg/dL (2.5-4.9)
[2016-10-26 08:13] LABS: BASOPHIL 0.4 % (0-2.0); MCH 24.2 pg (25.7-33.7); MEAN CELL VOLUME 78.1 fl (80-96); MEAN PLT VOLUME 11.5 fl (7.5-11.1); PLATELET COUNT 101 K/MM3 (134-434); RDW 18.1 % (11.6-15.6); WHITE BLOOD COUNT 9.4 K/mm3 (4.0-10.0)
[2016-10-26] MEDS: metFORMIN HCL 500 MG TABLET (FP) PO SCH ×2 (09:01→17:18)
[2016-10-26] MEDS: glipiZIDE 5 MG TABLET (FP) PO SCH ×2 (09:01→17:18)
[2016-10-26] MEDS: ALPRAZolam 0.25 MG TABLET PO PRN ×2 (09:36→23:07)
[2016-10-26] MEDS: methylPREDNISolone NA SUCC 125 MG/2 ML VIAL IVPB SCH ×2 (09:36→22:06)
[2016-10-26] MEDS: SERTRALINE HCL 25 MG TABLET (FP) PO SCH (10:25)
[2016-10-26] MEDS: ALLOPURINOL 100 MG TABLET (FP) PO SCH (10:26)
[2016-10-26] MEDS: DOCUSATE SODIUM 100 MG CAPSULE (FP) PO SCH ×2 (10:26→22:05)
[2016-10-26] MEDS: ACETAMINOPHEN 325 MG TABLET (FP) PO SCH (10:26)
[2016-10-26] MEDS: PANTOPRAZOLE 40 MG TABLET (FP) PO SCH (10:26)
[2016-10-26] MEDS: LISINOPRIL 10 MG TABLET (FP) PO SCH (10:26)
[2016-10-26] MEDS ORDERED: PT OWN MED DRAWER 7, Y5N ONE (10:38)
[2016-10-26] MEDS: CALCIUM CARBONATE 650 MG TABLET PO SCH ×2 (10:52→22:05)
[2016-10-26] MEDS: IMMUNE GLOB,GAM CAPRYLATE(IGG) 40 GM IVPB SCH (11:08)
--- NOTE | 2016-10-26 11:48 | PN ---
Progress Note, Physician Chief Complaint: Ms Painting is without complaint. No cp, sob, n/v. - Current Medication List Current Medications: Active Medications Acetaminophen (Tylenol -) 650 mg PO DAILY [facility] Stop: 10/29/16 10:01 Last Admin: 10/26/16 10:26 Dose: 650 mg Albuterol Sulfate (Ventolin Hfa Inhaler -) 2 puff IH Q4H PRN PRN Reason: SHORT OF BREATH/WHEEZING Allopurinol (Zyloprim -) 150 mg PO DAILY [facility] Last Admin: 10/26/16 10:26 Dose: 150 mg Alprazolam (Xanax -) 0.5 mg PO Q8H PRN PRN Reason: ANXIETY Last Admin: 10/26/16 09:36 Dose: 0.5 mg Calcium Carbonate (Calcium Carbonate -) 650 mg PO BID [facility] Last Admin: 10/26/16 10:52 Dose: 650 mg Diphenhydramine HCl (Benadryl Injection -) 50 mg IVPB DAILY [facility] Stop: 10/29/16 10:01 Last Admin: 10/26/16 10:26 Dose: 50 mg Docusate Sodium (Colace -) 100 mg PO BID [facility] Last Admin: 10/26/16 10:26 Dose: 100 mg Glipizide (Glucotrol -) 5 mg PO BIDAC [facility] Last Admin: 10/26/16 09:01 Dose: 5 mg Sodium Chloride (Normal Saline -) 1,000 mls @ 42 mls/hr IV ASDIR [facility] Last Admin: 10/26/16 06:49 Dose: 42 mls/hr Immune Globulin (Gamunex-C) 400 mls @ 100 mls/hr IVPB DAILY [facility] Stop: 10/29/16 13:59 Last Admin: 10/26/16 11:08 Dose: 100 mls/hr Insulin Aspart (Novolog Vial Sliding Scale -) 1 vial SQ ACHS [facility] PRN Reason: Protocol Last Admin: 10/26/16 06:16 Dose: Not Given Lisinopril (Prinivil) 10 mg PO DAILY [facility] Last Admin: 10/26/16 10:26 Dose: 10 mg Metformin HCl (Glucophage -) 1,000 mg PO BIDAC [facility] Last Admin: 10/26/16 09:01 Dose: 1,000 mg Methylprednisolone Sodium Succinate (Solu-Medrol -) 55 mg IVPB Q12H [facility] Last Admin: 10/26/16 09:36 Dose: 55 mg Morphine Sulfate (Ms Contin -) 30 mg PO TID [facility] Last Admin: 10/26/16 06:14 Dose: 30 mg Morphine Sulfate (Msir -) 15 mg PO Q4H PRN PRN Reason: breakthrough pain Last Admin: 10/26/16 03:17 Dose: 15 mg Ondansetron HCl (Zofran Injection) 4 mg IVPB Q8H PRN PRN Reason: NAUSEA AND/OR VOMITING Last Admin: 10/25/16 15:51 Dose: 4 mg Pantoprazole Sodium (Protonix -) 40 mg PO DAILY [facility] Last Admin: 10/26/16 10:26 Dose: 40 mg Potassium Citrate/Citric Acid (Cytra-K -) 20 meq PO BID [facility] Sertraline HCl (Zoloft -) 25 mg PO DAILY [facility] Last Admin: 10/26/16 10:25 Dose: 25 mg - Objective Vital Signs: Vital Signs Temperature 97.8 F 10/26/16 06:00 Pulse Rate 59 L 10/26/16 06:00 Respiratory Rate 20 10/26/16 06:00 Blood Pressure 158/92 10/26/16 06:00 O2 Sat by Pulse Oximetry (%) 96 10/25/16 20:19 Constitutional: Yes: No Distress, Calm, Obese Cardiovascular: Yes: Regular Rate and Rhythm. No: Gallop, Murmur, Rub Respiratory: Yes: Regular, CTA Bilaterally. No: Rales, Rhonchi, Wheezes Gastrointestinal: Yes: Normal Bowel Sounds, Soft. No: Distention, Tenderness Extremities: Yes: WNL Edema: No Labs: CBC, BMP 10/26/16 06:10 10/26/16 06:10 INR, PTT INR 1.08 (0.82-1.09) 10/22/16 18:04 Problem List - Problems (1) ITP (idiopathic thrombocytopenic purpura) Code(s): D69.3 - IMMUNE THROMBOCYTOPENIC PURPURA (2) Chronic kidney disease Code(s): N18.9 - CHRONIC KIDNEY DISEASE, UNSPECIFIED Qualifiers: Chronic kidney disease stage: stage 3 (moderate) Qualified Code(s): N18.3 - Chronic kidney disease, stage 3 (moderate) (3) Mantle cell lymphoma Code(s): C83.10 - MANTLE CELL LYMPHOMA, UNSPECIFIED SITE Qualifiers: Lymphoma site: unspecified region Qualified Code(s): C83.10 - Mantle cell lymphoma, unspecified site (4) Diabetes mellitus Code(s): E11.9 - TYPE 2 DIABETES MELLITUS WITHOUT COMPLICATIONS (5) Diaphragmatic hernia Code(s): K44.9 - DIAPHRAGMATIC HERNIA WITHOUT OBSTRUCTION OR GANGRENE (6) HTN (hypertension) Code(s): I10 - ESSENTIAL (PRIMARY) HYPERTENSION Assessment/Plan (1) ITP (idiopathic thrombocytopenic purpura) Assessment/Plan: -platelet much improved -IVIgper hematology Code(s): D69.3 - IMMUNE THROMBOCYTOPENIC PURPURA (2) Chronic kidney disease Assessment/Plan: -nephrology following -hyperkalemia resolved -at baseline Code(s): N18.9 - CHRONIC KIDNEY DISEASE, UNSPECIFIED Qualifiers: Chronic kidney disease stage: stage 3 (moderate) Qualified Code(s): N18.3 - Chronic kidney disease, stage 3 (moderate) (3) Mantle cell lymphoma Assessment/Plan: -stable Code(s): C83.10 - MANTLE CELL LYMPHOMA, UNSPECIFIED SITE Qualifiers: Lymphoma site: unspecified region Qualified Code(s): C83.10 - Mantle cell lymphoma, unspecified site (4) Diabetes mellitus Assessment/Plan: -diabetic diet -continue glipizide and metformin -continue SSI Code(s): E11.9 - TYPE 2 DIABETES MELLITUS WITHOUT COMPLICATIONS (5) Diaphragmatic hernia Assessment/Plan: -with bowel sounds in the chest exam -outpatient follow up Code(s): K44.9 - DIAPHRAGMATIC HERNIA WITHOUT OBSTRUCTION OR GANGRENE (6) HTN (hypertension) Assessment/Plan: -well controlled Code(s): I10 - ESSENTIAL (PRIMARY) HYPERTENSION
[2016-10-26] MEDS ORDERED: INSULIN (NOVOLOG) ASPART 100 UNITS/ML 10ML VIAL ONE (12:11)
--- NOTE | 2016-10-26 12:51 | EKG ---
Test Reason : Blood Pressure : / mmHG Vent. Rate : 053 BPM Atrial Rate : 053 BPM P-R Int : 128 ms QRS Dur : 100 ms QT Int : 484 ms P-R-T Axes : 059 -13 017 degrees QTc Int : 454 ms SINUS BRADYCARDIA OTHERWISE NORMAL ECG WHEN COMPARED WITH ECG OF 22-OCT-2016 17:57, VENT. RATE HAS DECREASED BY 46 BPM NONSPECIFIC T WAVE ABNORMALITY NO LONGER EVIDENT IN ANTERIOR LEADS Confirmed by NANCI OLIVO, SHEKHAR ([id number]) on 10/26/2016 12:50:29 PM Referred By: Brianne CHADWICK Confirmed By:SHEKHAR CHRISTINE MD
--- NOTE | 2016-10-26 14:15 | PN ---
Progress Note (short form) - Note Progress Note: Renal follow up for CKD Pt seen and examined at the bedside no acute complaints no sob, chest pain, abd pain Vital Signs Temperature 98.5 F 10/26/16 10:00 Pulse Rate 54 L 10/26/16 10:00 Respiratory Rate 20 10/26/16 10:00 Blood Pressure 133/55 10/26/16 10:00 O2 Sat by Pulse Oximetry (%) 95 10/26/16 09:00 Intake & Output 10/23/16 10/24/16 10/25/16 10/26/16 23:59 23:59 23:59 23:59 Intake Total 1582053 119 Balance 1582053 119 Weight 240 lb 4.8 oz 240 lb 14.4 oz 241 lb 238 lb 3.2 oz Gen: NAD CVS: Braycardic no M/R Lungs :CTA, no rales or wheeze Abd: soft NT/ND Ext: No edema, clubbing or cyanosis : No bladder distension CBC, BMP 10/26/16 06:10 10/26/16 06:10 Current Medications Acetaminophen (Tylenol -) 650 mg PO DAILY [facility] Stop: 10/29/16 10:01 Last Admin: 10/26/16 10:26 Dose: 650 mg Albuterol Sulfate (Ventolin Hfa Inhaler -) 2 puff IH Q4H PRN PRN Reason: SHORT OF BREATH/WHEEZING Allopurinol (Zyloprim -) 150 mg PO DAILY [facility] Last Admin: 10/26/16 10:26 Dose: 150 mg Alprazolam (Xanax -) 0.5 mg PO Q8H PRN PRN Reason: ANXIETY Last Admin: 10/26/16 09:36 Dose: 0.5 mg Calcium Carbonate (Calcium Carbonate -) 650 mg PO BID [facility] Last Admin: 10/26/16 10:52 Dose: 650 mg Diphenhydramine HCl (Benadryl Injection -) 50 mg IVPB DAILY [facility] Stop: 10/29/16 10:01 Last Admin: 10/26/16 10:26 Dose: 50 mg Docusate Sodium (Colace -) 100 mg PO BID [facility] Last Admin: 10/26/16 10:26 Dose: 100 [facility] Last Admin: 10/26/16 09:01 Dose: 5 mg Sodium Chloride (Normal Saline -) 1,000 mls @ 42 mls/hr IV ASDIR [facility] Last Admin: 10/26/16 06:49 Dose: 42 mls/hr Immune Globulin (Gamunex-C) 400 mls @ 100 mls/hr IVPB DAILY [facility] Stop: 10/29/16 13:59 Last Admin: 10/26/16 11:08 Dose: 100 mls/hr Insulin Aspart (Novolog Vial Sliding Scale -) 1 vial SQ ACHS [facility] PRN Reason: Protocol Last Admin: 10/26/16 12:12 Dose: Not Given Lisinopril (Prinivil) 10 mg PO DAILY [facility] Last Admin: 10/26/16 10:26 Dose: 10 mg Metformin HCl (Glucophage -) 1,000 mg PO BIDAC [facility] Last Admin: 10/26/16 09:01 Dose: 1,000 mg Methylprednisolone Sodium Succinate (Solu-Medrol -) 55 mg IVPB Q12H [facility] Last Admin: 10/26/16 09:36 Dose: 55 mg Morphine Sulfate (Ms Contin -) 30 mg PO TID [facility] Last Admin: 10/26/16 06:14 Dose: 30 mg Morphine Sulfate (Msir -) 15 mg PO Q4H PRN PRN Reason: breakthrough pain Last Admin: 10/26/16 03:17 Dose: 15 mg Ondansetron HCl (Zofran Injection) 4 mg IVPB Q8H PRN PRN Reason: NAUSEA AND/OR VOMITING Last Admin: 10/25/16 15:51 Dose: 4 mg Pantoprazole Sodium (Protonix -) 40 mg PO DAILY [facility] Last Admin: 10/26/16 10:26 Dose: 40 mg Potassium Citrate/Citric Acid (Cytra-K -) 20 meq PO BID [facility] Sertraline HCl (Zoloft -) 25 mg PO DAILY [facility] Last Admin: 10/26/16 10:25 Dose: 25 mg A/P 66 year old woman with PMhx of Mantle Cell Lymphoma, ITP, Hydronephrosis, Staghorn Calculi presented with worsening thrombocytopenia #CKD Stage 3 with b/l Hydronephrosis and staghorn calculi Renal function stable trend BUN/Cr while on IVIG gentle hydration #Nephrolithiasis restarted K-citra (pt with stone studies as an outpatient that showed that she had a low urinary citrate level which is a risk factor for further stone formation) on Low K diet trend K levels #Thrombocytopenia continue IVIG as per Heme #Mild Hyperkalemia Changed diet to low K Thank you Dash Padron DO
--- NOTE | 2016-10-26 17:32 | PN ---
Progress Note (short form) - Note Progress Note: Patient seen and examined no c/o Last Vital Signs Temp Pulse Resp BP Pulse Ox 98.2 F 44 L 20 145/62 95 10/26/16 16:00 10/26/16 16:00 10/26/16 16:00 10/26/16 16:00 10/26/16 09:00 Cor: RSR, No murmurs, No gallops Lungs: Clear to P&A Abd: Soft, Normal bowel sounds, No organomegaly Ext:No significant edema Abnormal Lab Results 10/26/16 10/26/16 06:10 06:10 Hgb 10.1 L MCV 78.1 L MCHC 31.0 L RDW 18.1 H Plt Count 101 L D MPV 11.5 H Neutrophils % 85.0 H Monocytes % 3.2 L Sodium 134 L BUN 44 H Creatinine 1.4 H Random Glucose 155 H D Active Medications Generic Name Dose Route Start Last Admin Trade Name Freq PRN Reason Stop Dose Admin Acetaminophen 650 mg 10/25/16 10:00 10/26/16 10:26 Tylenol - PO 10/29/16 10:01 650 mg DAILY [facility] Administration Albuterol Sulfate 2 puff 10/22/16 20:15 Ventolin Hfa Inhaler - IH Q4H PRN SHORT OF BREATH/WHEEZING Allopurinol 150 mg 10/23/16 10:00 10/26/16 10:26 Zyloprim - PO 150 mg DAILY [facility] Administration Alprazolam 0.5 mg 10/22/16 20:10 10/26/16 09:36 Xanax - PO 0.5 mg Q8H PRN Administration ANXIETY Calcium Carbonate 650 mg 10/22/16 22:00 10/26/16 10:52 Calcium Carbonate - PO 650 mg BID [facility] Administration Diphenhydramine HCl 50 mg 10/25/16 10:00 10/26/16 10:26 Benadryl Injection - IVPB 10/29/16 10:01 50 mg DAILY [facility] Administration Docusate Sodium 100 mg 10/23/16 11:15 10/26/16 10:26 Colace - PO 100 mg BID [facility] Administration Glipizide 5 mg 10/23/16 07:00 10/26/16 17:18 Glucotrol - PO 5 mg BIDAC [facility] Administration Sodium Chloride 1,000 mls @ 42 mls/hr 10/22/16 21:45 10/26/16 06:49 Normal Saline - IV 42 mls/hr ASDIR [facility] Administration Immune Globulin 400 mls @ 100 mls/hr 10/25/16 10:00 10/26/16 11:08 Gamunex-C IVPB 10/29/16 13:59 100 mls/hr DAILY [facility] Administration Insulin Aspart 1 vial 10/22/16 22:00 10/26/16 17:19 Novolog Vial Sliding Scale - SQ Not Given ACHS [facility] Protocol Lisinopril 10 mg 10/23/16 10:00 10/26/16 10:26 Prinivil PO 10 mg DAILY [facility] Administration Metformin HCl 1,000 mg 10/23/16 07:00 10/26/16 17:18 Glucophage - PO 1,000 mg BIDAC [facility] Administration Methylprednisolone Sodium Succinate 55 mg 10/23/16 10:00 10/26/16 09:36 Solu-Medrol - IVPB 55 mg Q12H [facility] Administration Morphine Sulfate 30 mg 10/22/16 22:00 10/26/16 14:59 Ms Contin - PO 30 mg TID [facility] Administration Morphine Sulfate 15 mg 10/22/16 20:10 10/26/16 03:17 Msir - PO 15 mg Q4H PRN Administration breakthrough pain Ondansetron HCl 4 mg 10/24/16 22:20 10/25/16 15:51 Zofran Injection IVPB 4 mg Q8H PRN Administration NAUSEA AND/OR VOMITING Pantoprazole Sodium 40 mg 10/23/16 10:00 10/26/16 10:26 Protonix - PO 40 mg DAILY [facility] Administration Potassium Citrate/Citric Acid 20 meq 10/26/16 22:00 Cytra-K - PO BID [facility] Sertraline HCl 25 mg 10/23/16 10:00 10/26/16 10:25 Zoloft - PO 25 mg DAILY [facility] Administration a/p 66 y/o with mantle cell lymphoma/itp/obesity/CKD/nephrolithiasis on ivig --400mg/kg perez 5 days, benadryl/tylenol/steroid premeds gentle hydraton Cr stable platelets improved bradycardia--cardiology consult
[2016-10-26] MEDS: POTASSIUM CITRATE/CITRIC ACID 2 MEQ/ML ML PO SCH ×2 (22:06→22:12)
[2016-10-27] MEDS: morphine SULFATE IMMEDIATE RELEASE 30 MG TAB PO PRN ×2 (03:03→16:55)
[2016-10-27] MEDS: INSULIN SLIDING SCALE (NOVOLOG) 1 VIAL SQ SCH ×4 (06:36→22:15)
[2016-10-27] MEDS: morphine SO4 SUSTAINED ACTING 30 MG TABLET.SA PO SCH ×3 (06:37→22:09)
[2016-10-27] MEDS: glipiZIDE 5 MG TABLET (FP) PO SCH ×2 (06:37→17:53)
[2016-10-27] MEDS: metFORMIN HCL 500 MG TABLET (FP) PO SCH ×2 (06:38→17:52)
[2016-10-27 07:50] LABS: BASOPHIL 0.4 % (0-2.0); MCH 24.4 pg (25.7-33.7); MCHC 31.4 g/dl (32.0-36.0); MEAN CELL VOLUME 77.7 fl (80-96); MEAN PLT VOLUME 10.6 fl (7.5-11.1); NEUTROPHILS 82.1 % (42.8-82.8); PLATELET COUNT 150 K/MM3 (134-434); RDW 18.5 % (11.6-15.6); WHITE BLOOD COUNT 10.6 K/mm3 (4.0-10.0)
[2016-10-27 08:16] LABS: CALCIUM 8.6 mg/dL (8.5-10.1); CREATININE 1.3 mg/dL (0.55-1.02); MAGNESIUM 2.2 mg/dL (1.8-2.4); PHOSPHOROUS 3.6 mg/dL (2.5-4.9)
[2016-10-27] MEDS: methylPREDNISolone NA SUCC 125 MG/2 ML VIAL IVPB SCH ×2 (09:38→22:10)
[2016-10-27] MEDS: POTASSIUM CITRATE/CITRIC ACID 2 MEQ/ML ML PO SCH ×3 (10:15→22:17)
[2016-10-27] MEDS: ALLOPURINOL 100 MG TABLET (FP) PO SCH (10:38)
[2016-10-27] MEDS: PANTOPRAZOLE 40 MG TABLET (FP) PO SCH (10:38)
[2016-10-27] MEDS: amLODIPine BESYLATE 5 MG TABLET (FP) PO SCH (10:38)
[2016-10-27] MEDS: LISINOPRIL 10 MG TABLET (FP) PO SCH (10:39)
[2016-10-27] MEDS: SERTRALINE HCL 25 MG TABLET (FP) PO SCH (10:39)
[2016-10-27] MEDS: DOCUSATE SODIUM 100 MG CAPSULE (FP) PO SCH ×2 (10:39→22:08)
[2016-10-27] MEDS: ACETAMINOPHEN 325 MG TABLET (FP) PO SCH (10:39)
[2016-10-27] MEDS ORDERED: PT OWN MED DRAWER 7, Y5N ONE ×2 (10:44→11:50)
[2016-10-27] MEDS: IMMUNE GLOB,GAM CAPRYLATE(IGG) 40 GM IVPB SCH (11:14)
[2016-10-27] MEDS: CALCIUM CARBONATE 650 MG TABLET PO SCH ×2 (11:14→22:10)
[2016-10-27] MEDS: ALPRAZolam 0.25 MG TABLET PO PRN (12:46)
--- NOTE | 2016-10-27 13:13 | PN ---
Progress Note (short form) - Note Progress Note: Renal follow up for CKD Pt seen and examined at the bedside no acute complaints nurser reported that she refused k-citra yesterday Vital Signs Temperature 98.4 F 10/27/16 06:00 Pulse Rate 43 L 10/27/16 06:00 Respiratory Rate 20 10/27/16 06:00 Blood Pressure 170/72 10/27/16 06:00 O2 Sat by Pulse Oximetry (%) 97 10/26/16 21:00 Intake & Output 10/24/16 10/25/16 10/26/16 10/27/16 23:59 23:59 23:59 23:59 Intake Total 2053 1973 1909 Balance 2053 1973 1909 Weight 240 lb 14.4 oz 241 lb 238 lb 3.2 oz 236 lb 8 oz Gen: NAD CVS: Braycardic no M/R Lungs :CTA, no rales or wheeze Abd: soft NT/ND Ext: No edema, clubbing or cyanosis : No bladder distension CBC, BMP 10/27/16 06:00 10/27/16 06:00 Current Medications Acetaminophen (Tylenol -) 650 mg PO DAILY [facility] Stop: 10/29/16 10:01 Last Admin: 10/27/16 10:39 Dose: 650 mg Albuterol Sulfate (Ventolin Hfa Inhaler -) 2 puff IH Q4H PRN PRN Reason: SHORT OF BREATH/WHEEZING Allopurinol (Zyloprim -) 150 mg PO DAILY [facility] Last Admin: 10/27/16 10:38 Dose: 150 mg Alprazolam (Xanax -) 0.5 mg PO Q8H PRN PRN Reason: ANXIETY Last Admin: 10/27/16 12:46 Dose: 0.5 mg Amlodipine Besylate (Norvasc -) 5 mg PO DAILY [facility] Last Admin: 10/27/16 10:38 Dose: 5 mg Calcium Carbonate (Calcium Carbonate -) 650 mg PO BID [facility] Last Admin: 10/27/16 11:14 Dose: 650 mg Diphenhydramine HCl (Benadryl Injection -) 50 mg IVPB DAILY [facility] Stop: 10/29/16 10:01 Last Admin: 10/27/16 10:29 Dose: 50 mg Docusate Sodium (Colace -) 100 mg PO BID [facility] Last Admin: 10/27/16 10:39 Dose: 100 mg Glipizide (Glucotrol -) 5 mg PO BIDAC [facility] Last Admin: 10/27/16 06:37 Dose: 5 mg Sodium Chloride (Normal Saline -) 1,000 mls @ 42 mls/hr IV ASDIR [facility] Last Admin: 10/26/16 22:02 Dose: Not Given Immune Globulin (Gamunex-C) 400 mls @ 100 mls/hr IVPB DAILY [facility] Stop: 10/29/16 13:59 Last Admin: 10/27/16 11:14 Dose: 100 mls/hr Insulin Aspart (Novolog Vial Sliding Scale -) 1 vial SQ ACHS [facility] PRN Reason: Protocol Last Admin: 10/27/16 11:44 Dose: Not Given Lisinopril (Prinivil) 10 mg PO DAILY [facility] Last Admin: 10/27/16 10:39 Dose: 10 mg Metformin HCl (Glucophage -) 1,000 mg PO BIDAC [facility] Last Admin: 10/27/16 06:38 Dose: 1,000 mg Methylprednisolone Sodium Succinate (Solu-Medrol -) 55 mg IVPB Q12H [facility] Last Admin: 10/27/16 09:38 Dose: 55 mg Morphine Sulfate (Ms Contin -) 30 mg PO TID [facility] Last Admin: 10/27/16 06:37 Dose: 30 mg Morphine Sulfate (Msir -) 15 mg PO Q4H PRN PRN Reason: breakthrough pain Last Admin: 10/27/16 03:03 Dose: 15 mg Ondansetron HCl (Zofran Injection) 4 mg IVPB Q8H PRN PRN Reason: NAUSEA AND/OR VOMITING Last Admin: 10/25/16 15:51 Dose: 4 mg Pantoprazole Sodium (Protonix -) 40 mg PO DAILY [facility] Last Admin: 10/27/16 10:38 Dose: 40 mg Potassium Citrate/Citric Acid (Cytra-K -) 20 meq PO BID [facility] Last Admin: 10/27/16 11:56 Dose: 10 ml Sertraline HCl (Zoloft -) 25 mg PO DAILY [facility] Last Admin: 10/27/16 10:39 Dose: 25 mg A/P 66 year old woman with PMhx of Mantle Cell Lymphoma, ITP, Hydronephrosis, Staghorn Calculi presented with worsening thrombocytopenia #CKD Stage 3 with b/l Hydronephrosis and staghorn calculi Renal function stable trend BUN/Cr while on IVIG gentle hydration #Nephrolithiasis discussed importance of k-citra with pt, she was confused and thought it was kayexalate trend K on current meds #Thrombocytopenia continue IVIG as per Heme #Mild Hyperkalemia Changed diet to low K #Hypertension Amlodpine added for better BP control continue Lisinopril Thank you Dash Padron DO
--- NOTE | 2016-10-27 14:00 | PN ---
Progress Note, Physician Chief Complaint: Ms Painting is without complaint. No cp, sob, n/v. - Current Medication List Current Medications: Active Medications Acetaminophen (Tylenol -) 650 mg PO DAILY [facility] Stop: 10/29/16 10:01 Last Admin: 10/27/16 10:39 Dose: 650 mg Albuterol Sulfate (Ventolin Hfa Inhaler -) 2 puff IH Q4H PRN PRN Reason: SHORT OF BREATH/WHEEZING Allopurinol (Zyloprim -) 150 mg PO DAILY [facility] Last Admin: 10/27/16 10:38 Dose: 150 mg Alprazolam (Xanax -) 0.5 mg PO Q8H PRN PRN Reason: ANXIETY Last Admin: 10/27/16 12:46 Dose: 0.5 mg Amlodipine Besylate (Norvasc -) 5 mg PO DAILY [facility] Last Admin: 10/27/16 10:38 Dose: 5 mg Calcium Carbonate (Calcium Carbonate -) 650 mg PO BID [facility] Last Admin: 10/27/16 11:14 Dose: 650 mg Diphenhydramine HCl (Benadryl Injection -) 50 mg IVPB DAILY [facility] Stop: 10/29/16 10:01 Last Admin: 10/27/16 10:29 Dose: 50 mg Docusate Sodium (Colace -) 100 mg PO BID [facility] Last Admin: 10/27/16 10:39 Dose: 100 mg Glipizide (Glucotrol -) 5 mg PO BIDAC [facility] Last Admin: 10/27/16 06:37 Dose: 5 mg Sodium Chloride (Normal Saline -) 1,000 mls @ 42 mls/hr IV ASDIR [facility] Last Admin: 10/26/16 22:02 Dose: Not Given Immune Globulin (Gamunex-C) 400 mls @ 100 mls/hr IVPB DAILY [facility] Stop: 10/29/16 13:59 Last Admin: 10/27/16 11:14 Dose: 100 mls/hr Insulin Aspart (Novolog Vial Sliding Scale -) 1 vial SQ ACHS [facility] PRN Reason: Protocol Last Admin: 10/27/16 11:44 Dose: Not Given Lisinopril (Prinivil) 10 mg PO DAILY [facility] Last Admin: 10/27/16 10:39 Dose: 10 mg Metformin HCl (Glucophage -) 1,000 mg PO BIDAC [facility] Last Admin: 10/27/16 06:38 Dose: 1,000 mg Methylprednisolone Sodium Succinate (Solu-Medrol -) 55 mg IVPB Q12H [facility] Last Admin: 10/27/16 09:38 Dose: 55 mg Morphine Sulfate (Ms Contin -) 30 mg PO TID [facility] Last Admin: 10/27/16 06:37 Dose: 30 mg Morphine Sulfate (Msir -) 15 mg PO Q4H PRN PRN Reason: breakthrough pain Last Admin: 10/27/16 03:03 Dose: 15 mg Ondansetron HCl (Zofran Injection) 4 mg IVPB Q8H PRN PRN Reason: NAUSEA AND/OR VOMITING Last Admin: 10/25/16 15:51 Dose: 4 mg Pantoprazole Sodium (Protonix -) 40 mg PO DAILY [facility] Last Admin: 10/27/16 10:38 Dose: 40 mg Potassium Citrate/Citric Acid (Cytra-K -) 20 meq PO BID [facility] Last Admin: 10/27/16 11:56 Dose: 10 ml Sertraline HCl (Zoloft -) 25 mg PO DAILY [facility] Last Admin: 10/27/16 10:39 Dose: 25 mg - Objective Vital Signs: Vital Signs Temperature 97.2 F L 10/27/16 10:00 Pulse Rate 42 L 10/27/16 10:00 Respiratory Rate 20 10/27/16 10:00 Blood Pressure 145/60 10/27/16 10:00 O2 Sat by Pulse Oximetry (%) 97 10/27/16 09:00 Constitutional: Yes: No Distress, Calm, Obese Cardiovascular: Yes: Regular Rate and Rhythm. No: Gallop, Murmur, Rub Respiratory: Yes: Regular, CTA Bilaterally. No: Rales, Rhonchi, Wheezes Gastrointestinal: Yes: Normal Bowel Sounds, Soft. No: Distention, Tenderness Extremities: Yes: WNL Edema: No Labs: CBC, BMP 10/27/16 06:00 10/27/16 06:00 INR, PTT INR 1.08 (0.82-1.09) 10/22/16 18:04 Problem List - Problems (1) ITP (idiopathic thrombocytopenic purpura) Code(s): D69.3 - IMMUNE THROMBOCYTOPENIC PURPURA (2) Chronic kidney disease Code(s): N18.9 - CHRONIC KIDNEY DISEASE, UNSPECIFIED Qualifiers: Chronic kidney disease stage: stage 3 (moderate) Qualified Code(s): N18.3 - Chronic kidney disease, stage 3 (moderate) (3) Mantle cell lymphoma Code(s): C83.10 - MANTLE CELL LYMPHOMA, UNSPECIFIED SITE Qualifiers: Lymphoma site: unspecified region Qualified Code(s): C83.10 - Mantle cell lymphoma, unspecified site (4) Diabetes mellitus Code(s): E11.9 - TYPE 2 DIABETES MELLITUS WITHOUT COMPLICATIONS Qualifiers: 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 insulin use: without fpc use Chronic kidney disease stage: stage 2 (mild) (5) Diaphragmatic hernia Code(s): K44.9 - DIAPHRAGMATIC HERNIA WITHOUT OBSTRUCTION OR GANGRENE Qualifiers: Obstruction and gangrene presence: without obstruction or gangrene Qualified Code(s): K44.9 - Diaphragmatic hernia without obstruction or gangrene (6) HTN (hypertension) Code(s): I10 - ESSENTIAL (PRIMARY) HYPERTENSION Qualifiers: Hypertension type: essential hypertension Qualified Code(s): I10 - Essential (primary) hypertension Assessment/Plan (1) ITP (idiopathic thrombocytopenic purpura) Assessment/Plan: -platelets continues to improve -now normal at 150K -continue IVIg per hematology, day 3 Code(s): D69.3 - IMMUNE THROMBOCYTOPENIC PURPURA (2) Chronic kidney disease Assessment/Plan: -nephrology following -hyperkalemia resolved -at baseline Code(s): N18.9 - CHRONIC KIDNEY DISEASE, UNSPECIFIED Qualifiers: Chronic kidney disease stage: stage 3 (moderate) Qualified Code(s): N18.3 - Chronic kidney disease, stage 3 (moderate) (3) Mantle cell lymphoma Assessment/Plan: -stable Code(s): C83.10 - MANTLE CELL LYMPHOMA, UNSPECIFIED SITE Qualifiers: Lymphoma site: unspecified region Qualified Code(s): C83.10 - Mantle cell lymphoma, unspecified site (4) Diabetes mellitus Assessment/Plan: -diabetic diet -continue glipizide and metformin -continue SSI Code(s): E11.9 - TYPE 2 DIABETES MELLITUS WITHOUT COMPLICATIONS (5) Diaphragmatic hernia Assessment/Plan: -with bowel sounds in the chest exam -outpatient follow up Code(s): K44.9 - DIAPHRAGMATIC HERNIA WITHOUT OBSTRUCTION OR GANGRENE (6) HTN (hypertension) Assessment/Plan: -well controlled Code(s): I10 - ESSENTIAL (PRIMARY) HYPERTENSION
--- NOTE | 2016-10-27 14:57 | CON.CARD ---
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 She also recurrent SOB on exertion referable to failure of diaphragmatic hernia repair without associated chest pain, near or true syncope, palpitations, orthopnea, PND or LE edema. Allergies: As per nursing notes. Past surgical history: Splenectomy, cervical laminectomy x2 Social history: Nonsmoker. Denies EtOH use and drug use. - History Source History Provided By: Patient Limitations to Obtaining History: Clinical Condition - Past Medical History Cardio/Vascular: Yes: HTN Pulmonary: Yes: Other (diaphragmatic hernia) Gastrointestinal: Yes: Diverticulitis (osteoarthritis right hip) Renal/: Yes: Renal Calculi, UTI, Other (bladder dysfunction) Psych: Yes: Anxiety, Depression Musculoskeletal: Yes: Chronic low back pain, Osteoarthritis (right hip) Rheumatology: Yes: Other (degenerative spine disease) Endocrine: Yes: Diabetes Mellitus Additional Medical History: ITP, Mantle Cell Lymphoma - Past Surgical History Past Surgical History: Yes: Laminectomy (cervical laminectomy x2 (2001)), Splenectomy, Thoracotomy - Alcohol/Substance Use Hx Alcohol Use: No History of Substance Use: reports: None - Smoking History Smoking history: Never smoked Have you smoked in the past 12 months: No Aproximately how many cigarettes per day: 0 If you are a former smoker, when did you quit?: 2001 - Social History Usual Living Arrangement: Other ADL: Independent 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, , 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 History of Recent Travel: No Home Medications - Allergies Allergies/Adverse Reactions: Allergies Allergy/AdvReac Type Severity Reaction Status Date / Time ciprofloxacin HCl Allergy Intermediate Itching Verified 10/22/16 16:49 [From Cipro] levofloxacin [From Levaquin] Allergy Intermediate Rash Verified 10/22/16 16:49 atorvastatin calcium Allergy Mild muscle Verified 10/22/16 16:49 [From Lipitor] aches - Home Medications Home Medications: Ambulatory Orders Sertraline HCl [Zoloft -] 25 mg PO DAILY 03/26/15 Lisinopril [Prinivil] 10 mg PO DAILY #30 tablet 09/09/14 Alprazolam [Xanax] 0.5 mg PO Q8H PRN #0 tablet 09/10/14 Morphine *Sr* [MS Contin -] 30 mg PO TID #0 tablet.sa 09/10/14 Pantoprazole Sodium [Protonix -] 40 mg PO DAILY #0 tablet.ec 09/10/14 Glipizide [Glucotrol Xl] 5 mg PO BID 11/12/15 Metformin HCl [Metformin HCl ER] 1,000 mg PO BID 03/31/16 Morphine Sulfate 15 mg PO QID PRN 03/31/16 Allopurinol [Zyloprim -] 150 mg PO DAILY #60 tablet 04/07/16 Albuterol Sulfate Inhaler - [Ventolin Hfa Inhaler -] 1 - 2 inh PO Q4H 08/09/16 Calcium Carbonate 648 mg PO BID 08/09/16 Potassium Citrate [Potassium Citrate ER] 10 meq PO TID 08/09/16 Family Disease History - Family Disease History Family Disease History: Heart Disease: Mother, Other: Father (thrombocytopenia) , Daughter (hypothyroidism) Vital Signs: Vital Signs Temperature 97.2 F L 10/27/16 10:00 Pulse Rate 42 L 10/27/16 10:00 Respiratory Rate 20 10/27/16 10:00 Blood Pressure 145/60 10/27/16 10:00 O2 Sat by Pulse Oximetry (%) 97 10/27/16 09:00 - Other Data Labs, Other Data: CBC, BMP 10/27/16 06:00 10/27/16 06:00 INR, PTT INR 1.08 (0.82-1.09) 10/22/16 18:04 SB @ 53 Imaging - Results Cat Scan: Report Reviewed (10/24/2016 Recurrent left diaphragmatic hernia) Problem List - Problems (1) Chronic kidney disease Code(s): N18.9 - CHRONIC KIDNEY DISEASE, UNSPECIFIED Qualifiers: Chronic kidney disease stage: stage 3 (moderate) Qualified Code(s): N18.3 - Chronic kidney disease, stage 3 (moderate) (2) ITP (idiopathic thrombocytopenic purpura) Code(s): D69.3 - IMMUNE THROMBOCYTOPENIC PURPURA (3) Mantle cell lymphoma Code(s): C83.10 - MANTLE CELL LYMPHOMA, UNSPECIFIED SITE Qualifiers: Lymphoma site: unspecified region Qualified Code(s): C83.10 - Mantle cell lymphoma, unspecified site (4) Bradycardia Code(s): R00.1 - BRADYCARDIA, UNSPECIFIED (5) Diabetes mellitus Code(s): E11.9 - TYPE 2 DIABETES MELLITUS WITHOUT COMPLICATIONS Qualifiers: Diabetes mellitus senior care insulin use: without senior care use Chronic kidney disease stage: stage 2 (mild) (6) Diaphragmatic hernia Code(s): K44.9 - DIAPHRAGMATIC HERNIA WITHOUT OBSTRUCTION OR GANGRENE Qualifiers: Obstruction and gangrene presence: without obstruction or gangrene Qualified Code(s): K44.9 - Diaphragmatic hernia without obstruction or gangrene (7) HTN (hypertension) Code(s): I10 - ESSENTIAL (PRIMARY) HYPERTENSION Qualifiers: Hypertension type: essential hypertension Qualified Code(s): I10 - Essential (primary) hypertension (8) Hydronephrosis Code(s): N13.30 - UNSPECIFIED HYDRONEPHROSIS (9) Leukocytosis Code(s): D72.829 - ELEVATED WHITE BLOOD CELL COUNT, UNSPECIFIED Qualifiers: Leukocytosis type: unspecified Qualified Code(s): D72.829 - Elevated white blood cell count, unspecified (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 (11) Staghorn kidney stones Code(s): N20.0 - CALCULUS OF KIDNEY Assessment/Plan 08/29/2014 Normal LV size and fxn without sig valve abnl 1. Recurrent ITP h/o splenectomy improving 2. Recurrent dyspnea on exertion after failure of left diaphragmatic hernia repair/mesh 3. HTN 4. NIDDM 5. Sinus bradycardia due to high vagal tone 6. History of Mantle Cell Lymphoma 7. CKD 3, staghorn calculi and hydronephrosis PLAN: 1. Continue Lisinopril 10 qd and Norvasc 5 qd 2. DVT and GI prophylaxis, BD as needed 3. Steroids and IVIG course with monitor Plt 4. Consideration for re-op diaphragmatic hernia repair after recovery of plt counts, no specific cardiac therapy warranted for asymptomatic sinus bradycardia Thank you for consultative opportunity
[2016-10-27] MEDS: SODIUM CHLORIDE 1,000 ML IV SCH (22:08)
--- NOTE | 2016-10-27 22:41 | PN ---
Progress Note (short form) - Note Progress Note: Patient seen and examined no c/o afvss Cor: RSR, No murmurs, No gallops Lungs: Clear to P&A Abd: Soft, Normal bowel sounds, No organomegaly Ext:No significant edema labs/meds reviewed a/p 66 y/o with mantle cell lymphoma/itp/obesity/CKD/nephrolithiasis on ivig --400mg/kg perez 5 days, benadryl/tylenol/steroid premeds gentle hydraton Cr stable platelets improved
[2016-10-28] MEDS: ALPRAZolam 0.25 MG TABLET PO PRN ×2 (00:24→22:45)
[2016-10-28] MEDS: INSULIN SLIDING SCALE (NOVOLOG) 1 VIAL SQ SCH ×4 (06:28→22:04)
[2016-10-28] MEDS: morphine SO4 SUSTAINED ACTING 30 MG TABLET.SA PO SCH ×3 (06:29→22:05)
[2016-10-28] MEDS: glipiZIDE 5 MG TABLET (FP) PO SCH ×2 (06:29→17:30)
[2016-10-28] MEDS: metFORMIN HCL 500 MG TABLET (FP) PO SCH ×2 (06:29→17:30)
[2016-10-28 07:40] LABS: BASOPHIL 0.6 % (0-2.0); MCH 24.4 pg (25.7-33.7); MCHC 31.6 g/dl (32.0-36.0); MEAN CELL VOLUME 77.3 fl (80-96); MEAN PLT VOLUME 9.1 fl (7.5-11.1); NEUTROPHILS 86.3 % (42.8-82.8); PLATELET COUNT 206 K/MM3 (134-434); RDW 18.7 % (11.6-15.6); WHITE BLOOD COUNT 9.8 K/mm3 (4.0-10.0)
[2016-10-28 08:18] LABS: CALCIUM 8.2 mg/dL (8.5-10.1); COCKROFT - GAULT 66.844; CREATININE 1.4 mg/dL (0.55-1.02); MAGNESIUM 2.2 mg/dL (1.8-2.4); PHOSPHOROUS 3.9 mg/dL (2.5-4.9)
[2016-10-28] MEDS: DOCUSATE SODIUM 100 MG CAPSULE (FP) PO SCH ×2 (10:36→22:03)
[2016-10-28] MEDS: amLODIPine BESYLATE 5 MG TABLET (FP) PO SCH (10:36)
[2016-10-28] MEDS: ALLOPURINOL 100 MG TABLET (FP) PO SCH (10:36)
[2016-10-28] MEDS: LISINOPRIL 10 MG TABLET (FP) PO SCH (10:36)
[2016-10-28] MEDS: PANTOPRAZOLE 40 MG TABLET (FP) PO SCH (10:36)
[2016-10-28] MEDS: SERTRALINE HCL 25 MG TABLET (FP) PO SCH (10:37)
[2016-10-28] MEDS: methylPREDNISolone NA SUCC 125 MG/2 ML VIAL IVPB SCH (10:37)
[2016-10-28] MEDS: ACETAMINOPHEN 325 MG TABLET (FP) PO SCH (10:38)
--- NOTE | 2016-10-28 11:44 | PN ---
Progress Note, Physician History of Present Illness: Thrombocytopenia resolved with steroids and IVIG course. She also recurrent SOB on exertion referable to failure of diaphragmatic hernia repair without associated chest pain, near or true syncope, palpitations, orthopnea, PND or LE edema. - Current Medication List Current Medications: Active Medications Acetaminophen (Tylenol -) 650 mg PO DAILY [facility] Stop: 10/29/16 10:01 Last Admin: 10/28/16 10:38 Dose: 650 mg Albuterol Sulfate (Ventolin Hfa Inhaler -) 2 puff IH Q4H PRN PRN Reason: SHORT OF BREATH/WHEEZING Allopurinol (Zyloprim -) 150 mg PO DAILY [facility] Last Admin: 10/28/16 10:36 Dose: 150 mg Alprazolam (Xanax -) 0.5 mg PO Q8H PRN PRN Reason: ANXIETY Last Admin: 10/28/16 00:24 Dose: 0.5 mg Amlodipine Besylate (Norvasc -) 5 mg PO DAILY [facility] Last Admin: 10/28/16 10:36 Dose: 5 mg Calcium Carbonate (Calcium Carbonate -) 650 mg PO BID [facility] Last Admin: 10/27/16 22:10 Dose: 650 mg Diphenhydramine HCl (Benadryl Injection -) 50 mg IVPB DAILY [facility] Stop: 10/29/16 10:01 Last Admin: 10/28/16 10:51 Dose: 50 mg Docusate Sodium (Colace -) 100 mg PO BID [facility] Last Admin: 10/28/16 10:36 Dose: 100 mg Glipizide (Glucotrol -) 5 mg PO BIDAC [facility] Last Admin: 10/28/16 06:29 Dose: 5 mg Sodium Chloride (Normal Saline -) 1,000 mls @ 42 mls/hr IV ASDIR [facility] Last Admin: 10/27/16 22:08 Dose: 42 mls/hr Immune Globulin (Gamunex-C) 400 mls @ 100 mls/hr IVPB DAILY [facility] Stop: 10/29/16 13:59 Last Admin: 10/27/16 11:14 Dose: 100 mls/hr Insulin Aspart (Novolog Vial Sliding Scale -) 1 vial SQ ACHS [facility] PRN Reason: Protocol Last Admin: 10/28/16 06:28 Dose: Not Given Lisinopril (Prinivil) 10 mg PO DAILY [facility] Last Admin: 10/28/16 10:36 Dose: 10 mg Metformin HCl (Glucophage -) 1,000 mg PO BIDAC [facility] Last Admin: 10/28/16 06:29 Dose: 1,000 mg Methylprednisolone Sodium Succinate (Solu-Medrol -) 55 mg IVPB Q12H [facility] Last Admin: 10/28/16 10:37 Dose: 55 mg Morphine Sulfate (Ms Contin -) 30 mg PO TID [facility] Last Admin: 10/28/16 06:29 Dose: 30 mg Morphine Sulfate (Msir -) 15 mg PO Q4H PRN PRN Reason: breakthrough pain Last Admin: 10/27/16 16:55 Dose: 15 mg Ondansetron HCl (Zofran Injection) 4 mg IVPB Q8H PRN PRN Reason: NAUSEA AND/OR VOMITING Last Admin: 10/25/16 15:51 Dose: 4 mg Pantoprazole Sodium (Protonix -) 40 mg PO DAILY [facility] Last Admin: 10/28/16 10:36 Dose: 40 mg Potassium Citrate/Citric Acid (Cytra-K -) 20 meq PO BID [facility] Last Admin: 10/27/16 22:17 Dose: 20 ml Sertraline HCl (Zoloft -) 25 mg PO DAILY [facility] Last Admin: 10/28/16 10:37 Dose: 25 mg - Objective Vital Signs: Vital Signs Temperature 98.5 F 10/28/16 05:41 Pulse Rate 46 L 10/28/16 05:41 Respiratory Rate 20 10/28/16 05:41 Blood Pressure 108/43 10/28/16 05:41 O2 Sat by Pulse Oximetry (%) 95 10/27/16 20:54 Constitutional: Yes: No Distress, Calm Neck: Yes: Supple Cardiovascular: Yes: Regular Rate and Rhythm Respiratory: Yes: Regular, Diminished Gastrointestinal: Yes: Normal Bowel Sounds, Soft Edema: No Labs: CBC, BMP 10/28/16 06:00 10/28/16 06:00 INR, PTT INR 1.08 (0.82-1.09) 10/22/16 18:04 Problem List - Problems (1) Chronic kidney disease Code(s): N18.9 - CHRONIC KIDNEY DISEASE, UNSPECIFIED Qualifiers: Chronic kidney disease stage: stage 3 (moderate) Qualified Code(s): N18.3 - Chronic kidney disease, stage 3 (moderate) (2) ITP (idiopathic thrombocytopenic purpura) Code(s): D69.3 - IMMUNE THROMBOCYTOPENIC PURPURA (3) Mantle cell lymphoma Code(s): C83.10 - MANTLE CELL LYMPHOMA, UNSPECIFIED SITE Qualifiers: Lymphoma site: unspecified region Qualified Code(s): C83.10 - Mantle cell lymphoma, unspecified site (4) Bradycardia Code(s): R00.1 - BRADYCARDIA, UNSPECIFIED (5) Diabetes mellitus Code(s): E11.9 - TYPE 2 DIABETES MELLITUS WITHOUT COMPLICATIONS Qualifiers: Diabetes mellitus middle or intermediate school principal insulin use: without middle or intermediate school principal use Chronic kidney disease stage: stage 2 (mild) (6) Diaphragmatic hernia Code(s): K44.9 - DIAPHRAGMATIC HERNIA WITHOUT OBSTRUCTION OR GANGRENE Qualifiers: Obstruction and gangrene presence: without obstruction or gangrene Qualified Code(s): K44.9 - Diaphragmatic hernia without obstruction or gangrene (7) HTN (hypertension) Code(s): I10 - ESSENTIAL (PRIMARY) HYPERTENSION Qualifiers: Hypertension type: essential hypertension Qualified Code(s): I10 - Essential (primary) hypertension (8) Hydronephrosis Code(s): N13.30 - UNSPECIFIED HYDRONEPHROSIS (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 Recurrent ITP h/o splenectomy resolved 2. Recurrent dyspnea on exertion after failure of left diaphragmatic hernia repair/mesh 3. HTN 4. NIDDM 5. Sinus bradycardia due to high vagal tone 6. History of Mantle Cell Lymphoma 7. CKD 3, staghorn calculi and hydronephrosis PLAN: 1. Continue Lisinopril 10 qd and Norvasc 5 qd 2. DVT and GI prophylaxis, BD as needed 3. Steroids and IVIG course with monitor Plt 4. Consideration for re-op diaphragmatic hernia repair after recovery of plt counts, no specific cardiac therapy warranted for asymptomatic sinus bradycardia
[2016-10-28] MEDS: IMMUNE GLOB,GAM CAPRYLATE(IGG) 40 GM IVPB SCH (12:11)
--- NOTE | 2016-10-28 12:56 | PN ---
Progress Note, Physician Chief Complaint: Ms Painting is without complaint. No cp, sob, n/v. - Current Medication List Current Medications: Active Medications Acetaminophen (Tylenol -) 650 mg PO DAILY [facility] Stop: 10/29/16 10:01 Last Admin: 10/28/16 10:38 Dose: 650 mg Albuterol Sulfate (Ventolin Hfa Inhaler -) 2 puff IH Q4H PRN PRN Reason: SHORT OF BREATH/WHEEZING Allopurinol (Zyloprim -) 150 mg PO DAILY [facility] Last Admin: 10/28/16 10:36 Dose: 150 mg Alprazolam (Xanax -) 0.5 mg PO Q8H PRN PRN Reason: ANXIETY Last Admin: 10/28/16 00:24 Dose: 0.5 mg Amlodipine Besylate (Norvasc -) 5 mg PO DAILY [facility] Last Admin: 10/28/16 10:36 Dose: 5 mg Calcium Carbonate (Calcium Carbonate -) 650 mg PO BID [facility] Last Admin: 10/27/16 22:10 Dose: 650 mg Diphenhydramine HCl (Benadryl Injection -) 50 mg IVPB DAILY [facility] Stop: 10/29/16 10:01 Last Admin: 10/28/16 10:51 Dose: 50 mg Docusate Sodium (Colace -) 100 mg PO BID [facility] Last Admin: 10/28/16 10:36 Dose: 100 mg Glipizide (Glucotrol -) 5 mg PO BIDAC [facility] Last Admin: 10/28/16 06:29 Dose: 5 mg Sodium Chloride (Normal Saline -) 1,000 mls @ 42 mls/hr IV ASDIR [facility] Last Admin: 10/27/16 22:08 Dose: 42 mls/hr Immune Globulin (Gamunex-C) 400 mls @ 100 mls/hr IVPB DAILY [facility] Stop: 10/29/16 13:59 Last Admin: 10/28/16 12:11 Dose: 100 mls/hr Insulin Aspart (Novolog Vial Sliding Scale -) 1 vial SQ ACHS [facility] PRN Reason: Protocol Last Admin: 10/28/16 06:28 Dose: Not Given Lisinopril (Prinivil) 10 mg PO DAILY [facility] Last Admin: 10/28/16 10:36 Dose: 10 mg Metformin HCl (Glucophage -) 1,000 mg PO BIDAC [facility] Last Admin: 10/28/16 06:29 Dose: 1,000 mg Methylprednisolone Sodium Succinate (Solu-Medrol -) 55 mg IVPB Q12H [facility] Last Admin: 10/28/16 10:37 Dose: 55 mg Morphine Sulfate (Ms Contin -) 30 mg PO TID [facility] Last Admin: 10/28/16 06:29 Dose: 30 mg Morphine Sulfate (Msir -) 15 mg PO Q4H PRN PRN Reason: breakthrough pain Last Admin: 10/27/16 16:55 Dose: 15 mg Ondansetron HCl (Zofran Injection) 4 mg IVPB Q8H PRN PRN Reason: NAUSEA AND/OR VOMITING Last Admin: 10/25/16 15:51 Dose: 4 mg Pantoprazole Sodium (Protonix -) 40 mg PO DAILY [facility] Last Admin: 10/28/16 10:36 Dose: 40 mg Potassium Citrate/Citric Acid (Cytra-K -) 20 meq PO BID [facility] Last Admin: 10/27/16 22:17 Dose: 20 ml Sertraline HCl (Zoloft -) 25 mg PO DAILY [facility] Last Admin: 10/28/16 10:37 Dose: 25 mg - Objective Vital Signs: Vital Signs Temperature 98.5 F 10/28/16 05:41 Pulse Rate 46 L 10/28/16 05:41 Respiratory Rate 20 10/28/16 05:41 Blood Pressure 108/43 10/28/16 05:41 O2 Sat by Pulse Oximetry (%) 95 10/27/16 20:54 Constitutional: Yes: No Distress, Calm, Obese Cardiovascular: Yes: Regular Rate and Rhythm. No: Gallop, Murmur, Rub Respiratory: Yes: Regular, CTA Bilaterally. No: Rales, Rhonchi, Wheezes Gastrointestinal: Yes: Normal Bowel Sounds, Soft. No: Distention, Tenderness Extremities: Yes: WNL Edema: No Labs: CBC, BMP 10/28/16 06:00 10/28/16 06:00 INR, PTT INR 1.08 (0.82-1.09) 10/22/16 18:04 Problem List - Problems (1) ITP (idiopathic thrombocytopenic purpura) Code(s): D69.3 - IMMUNE THROMBOCYTOPENIC PURPURA (2) Chronic kidney disease Code(s): N18.9 - CHRONIC KIDNEY DISEASE, UNSPECIFIED Qualifiers: Chronic kidney disease stage: stage 3 (moderate) Qualified Code(s): N18.3 - Chronic kidney disease, stage 3 (moderate) (3) Mantle cell lymphoma Code(s): C83.10 - MANTLE CELL LYMPHOMA, UNSPECIFIED SITE Qualifiers: Lymphoma site: unspecified region Qualified Code(s): C83.10 - Mantle cell lymphoma, unspecified site (4) Diabetes mellitus Code(s): E11.9 - TYPE 2 DIABETES MELLITUS WITHOUT COMPLICATIONS Qualifiers: Diabetes mellitus long term care administrator insulin use: without long term care administrator use Chronic kidney disease stage: stage 2 (mild) (5) Diaphragmatic hernia Code(s): K44.9 - DIAPHRAGMATIC HERNIA WITHOUT OBSTRUCTION OR GANGRENE Qualifiers: Obstruction and gangrene presence: without obstruction or gangrene Qualified Code(s): K44.9 - Diaphragmatic hernia without obstruction or gangrene (6) HTN (hypertension) Code(s): I10 - ESSENTIAL (PRIMARY) HYPERTENSION Qualifiers: Hypertension type: essential hypertension Qualified Code(s): I10 - Essential (primary) hypertension Assessment/Plan (1) ITP (idiopathic thrombocytopenic purpura) Assessment/Plan: -platelets continues to improve -continue IVIg per hematology, day 4 Code(s): D69.3 - IMMUNE THROMBOCYTOPENIC PURPURA (2) Chronic kidney disease Assessment/Plan: -nephrology following -hyperkalemia resolved -at baseline Code(s): N18.9 - CHRONIC KIDNEY DISEASE, UNSPECIFIED Qualifiers: Chronic kidney disease stage: stage 3 (moderate) Qualified Code(s): N18.3 - Chronic kidney disease, stage 3 (moderate) (3) Mantle cell lymphoma Assessment/Plan: -stable Code(s): C83.10 - MANTLE CELL LYMPHOMA, UNSPECIFIED SITE Qualifiers: Lymphoma site: unspecified region Qualified Code(s): C83.10 - Mantle cell lymphoma, unspecified site (4) Diabetes mellitus Assessment/Plan: -diabetic diet -continue glipizide and metformin -continue SSI Code(s): E11.9 - TYPE 2 DIABETES MELLITUS WITHOUT COMPLICATIONS (5) Diaphragmatic hernia Assessment/Plan: -with bowel sounds in the chest exam -outpatient follow up Code(s): K44.9 - DIAPHRAGMATIC HERNIA WITHOUT OBSTRUCTION OR GANGRENE (6) HTN (hypertension) Assessment/Plan: -well controlled Code(s): I10 - ESSENTIAL (PRIMARY) HYPERTENSION Dispo -discharge tomorrow after last dose IVIg if ok with hematology
[2016-10-28] MEDS: POTASSIUM CITRATE/CITRIC ACID 2 MEQ/ML ML PO SCH ×2 (13:11→22:04)
[2016-10-28] MEDS: CALCIUM CARBONATE 650 MG TABLET PO SCH ×2 (13:11→22:03)
--- NOTE | 2016-10-28 16:05 | PN ---
Progress Note (short form) - Note Progress Note: Renal follow up for CKD Pt seen and examined at the bedside no acute complaints. Vital Signs Temperature 98.3 F 10/28/16 14:15 Pulse Rate 57 L 10/28/16 14:15 Respiratory Rate 20 10/28/16 14:15 Blood Pressure 143/58 10/28/16 14:15 O2 Sat by Pulse Oximetry (%) 95 10/27/16 20:54 Intake & Output 10/25/16 10/26/16 10/27/16 10/28/16 23:59 23:59 23:59 23:59 Intake Total 1973 1635 548 8746 Balance 1973 3325 841 0962 Weight 241 lb 238 lb 3.2 oz 236 lb 8 oz 236 lb 3 oz Gen: NAD CVS: Braycardic no M/R Lungs :CTA, no rales or wheeze Abd: soft NT/ND Ext: No edema, clubbing or cyanosis : No bladder distension CBC, BMP 10/28/16 06:00 10/28/16 06:00 Laboratory Tests 04/06/16 10/28/16 06:00 06:00 Calcium 8.2 L 8.2 L Phosphorus 4.1 3.9 Magnesium 2.2 2.2 Current Medications Acetaminophen (Tylenol -) 650 mg PO DAILY [facility] Stop: 10/29/16 10:01 Last Admin: 10/28/16 10:38 Dose: 650 mg Albuterol Sulfate (Ventolin Hfa Inhaler -) 2 puff IH Q4H PRN PRN Reason: SHORT OF BREATH/WHEEZING Allopurinol (Zyloprim -) 150 mg PO DAILY [facility] Last Admin: 10/28/16 10:36 Dose: 150 mg Alprazolam (Xanax -) 0.5 mg PO Q8H PRN PRN Reason: ANXIETY Last Admin: 10/28/16 00:24 Dose: 0.5 mg Amlodipine Besylate (Norvasc -) 5 mg PO DAILY [facility] Last Admin: 10/28/16 10:36 Dose: 5 mg Calcium Carbonate (Calcium Carbonate -) 650 mg PO BID [facility] Last Admin: 10/28/16 13:11 Dose: 650 mg Diphenhydramine HCl (Benadryl Injection -) 50 mg IVPB DAILY [facility] Stop: 10/29/16 10:01 Last Admin: 10/28/16 10:51 Dose: 50 mg Docusate Sodium (Colace -) 100 mg PO BID [facility] Last Admin: 10/28/16 10:36 Dose: 100 mg Glipizide (Glucotrol -) 5 mg PO BIDAC [facility] Last Admin: 10/28/16 06:29 Dose: 5 mg Sodium Chloride (Normal Saline -) 1,000 mls @ 42 mls/hr IV ASDIR [facility] Last Admin: 10/27/16 22:08 Dose: 42 mls/hr Immune Globulin (Gamunex-C) 400 mls @ 100 mls/hr IVPB DAILY [facility] Stop: 10/29/16 13:59 Last Admin: 10/28/16 12:11 Dose: 100 mls/hr Insulin Aspart (Novolog Vial Sliding Scale -) 1 vial SQ ACHS [facility] PRN Reason: Protocol Last Admin: 10/28/16 13:17 Dose: Not Given Lisinopril (Prinivil) 10 mg PO DAILY [facility] Last Admin: 10/28/16 10:36 Dose: 10 mg Metformin HCl (Glucophage -) 1,000 mg PO BIDAC [facility] Last Admin: 10/28/16 06:29 Dose: 1,000 mg Methylprednisolone Sodium Succinate (Solu-Medrol -) 55 mg IVPB Q12H [facility] Last Admin: 10/28/16 10:37 Dose: 55 mg Morphine Sulfate (Ms Contin -) 30 mg PO TID [facility] Last Admin: 10/28/16 14:19 Dose: 30 mg Morphine Sulfate (Msir -) 15 mg PO Q4H PRN PRN Reason: breakthrough pain Last Admin: 10/27/16 16:55 Dose: 15 mg Ondansetron HCl (Zofran Injection) 4 mg IVPB Q8H PRN PRN Reason: NAUSEA AND/OR VOMITING Last Admin: 10/25/16 15:51 Dose: 4 mg Pantoprazole Sodium (Protonix -) 40 mg PO DAILY [facility] Last Admin: 10/28/16 10:36 Dose: 40 mg Potassium Citrate/Citric Acid (Cytra-K -) 20 meq PO BID [facility] Last Admin: 10/28/16 13:11 Dose: 20 ml Sertraline HCl (Zoloft -) 25 mg PO DAILY [facility] Last Admin: 10/28/16 10:37 Dose: 25 mg A/P 66 year old woman with PMhx of Mantle Cell Lymphoma, ITP, Hydronephrosis, Staghorn Calculi presented with worsening thrombocytopenia #CKD Stage 3 with b/l Hydronephrosis and staghorn calculi Renal function stable #Nephrolithiasis continue k-citra trend K #Thrombocytopenia continue IVIG as per Heme #Mild Hyperkalemia Changed diet to low K on K citral and Lisinopril Trend serum k levels #Hypertension Amlodpine added for better BP control continue Lisinopril Thank you Dash Padron DO
[2016-10-28] MEDS: morphine SULFATE IMMEDIATE RELEASE 30 MG TAB PO PRN (17:31)
[2016-10-28] MEDS ORDERED: PT OWN MED DRAWER 7, Y5N ONE (21:37)
[2016-10-28] MEDS: SODIUM CHLORIDE 1,000 ML IV SCH (22:02)
--- NOTE | 2016-10-28 23:25 | PN ---
Progress Note (short form) - Note Progress Note: Patient seen and examined no c/o Last Vital Signs Temp Pulse Resp BP Pulse Ox 98.2 F 44 L 20 145/62 95 10/26/16 16:00 10/26/16 16:00 10/26/16 16:00 10/26/16 16:00 10/26/16 09:00 Cor: RSR, No murmurs, No gallops Lungs: Clear to P&A Abd: Soft, Normal bowel sounds, No organomegaly Ext:No significant edema Abnormal Lab Results 10/26/16 10/26/16 06:10 06:10 Hgb 10.1 L MCV 78.1 L MCHC 31.0 L RDW 18.1 H Plt Count 101 L D MPV 11.5 H Neutrophils % 85.0 H Monocytes % 3.2 L Sodium 134 L BUN 44 H Creatinine 1.4 H Random Glucose 155 H D Active Medications Generic Name Dose Route Start Last Admin Trade Name Freq PRN Reason Stop Dose Admin Acetaminophen 650 mg 10/25/16 10:00 10/26/16 10:26 Tylenol - PO 10/29/16 10:01 650 mg DAILY PRASHANT Administration Albuterol Sulfate 2 puff 10/22/16 20:15 Ventolin Hfa Inhaler - IH Q4H PRN SHORT OF BREATH/WHEEZING Allopurinol 150 mg 10/23/16 10:00 10/26/16 10:26 Zyloprim - PO 150 mg DAILY PRASHANT Administration Alprazolam 0.5 mg 10/22/16 20:10 10/26/16 09:36 Xanax - PO 0.5 mg Q8H PRN Administration ANXIETY Calcium Carbonate 650 mg 10/22/16 22:00 10/26/16 10:52 Calcium Carbonate - PO 650 mg BID PRASHANT Administration Diphenhydramine HCl 50 mg 10/25/16 10:00 10/26/16 10:26 Benadryl Injection - IVPB 10/29/16 10:01 50 mg DAILY PRASHANT Administration Docusate Sodium 100 mg 10/23/16 11:15 10/26/16 10:26 Colace - PO 100 mg BID PRASHANT Administration Glipizide 5 mg 10/23/16 07:00 10/26/16 17:18 Glucotrol - PO 5 mg BIDAC PRASHANT Administration Sodium Chloride 1,000 mls @ 42 mls/hr 10/22/16 21:45 10/26/16 06:49 Normal Saline - IV 42 mls/hr ASDIR PRASHANT Administration Immune Globulin 400 mls @ 100 mls/hr 10/25/16 10:00 10/26/16 11:08 Gamunex-C IVPB 10/29/16 13:59 100 mls/hr DAILY PRASHANT Administration Insulin Aspart 1 vial 10/22/16 22:00 10/26/16 17:19 Novolog Vial Sliding Scale - SQ Not Given ACHS [facility] Protocol Lisinopril 10 mg 10/23/16 10:00 10/26/16 10:26 Prinivil PO 10 mg DAILY PRASHANT Administration Metformin HCl 1,000 mg 10/23/16 07:00 10/26/16 17:18 Glucophage - PO 1,000 mg BIDAC PRASHANT Administration Methylprednisolone Sodium Succinate 55 mg 10/23/16 10:00 10/26/16 09:36 Solu-Medrol - IVPB 55 mg Q12H PRASHANT Administration Morphine Sulfate 30 mg 10/22/16 22:00 10/26/16 14:59 Ms Contin - PO 30 mg TID PRASHANT Administration Morphine Sulfate 15 mg 10/22/16 20:10 10/26/16 03:17 Msir - PO 15 mg Q4H PRN Administration breakthrough pain Ondansetron HCl 4 mg 10/24/16 22:20 10/25/16 15:51 Zofran Injection IVPB 4 mg Q8H PRN Administration NAUSEA AND/OR VOMITING Pantoprazole Sodium 40 mg 10/23/16 10:00 10/26/16 10:26 Protonix - PO 40 mg DAILY PRASHANT Administration Potassium Citrate/Citric Acid 20 meq 10/26/16 22:00 Cytra-K - PO BID PRASHANT Sertraline HCl 25 mg 10/23/16 10:00 10/26/16 10:25 Zoloft - PO 25 mg DAILY PRASHANT Administration a/p 66 y/o with mantle cell lymphoma/itp/obesity/CKD/nephrolithiasis on ivig --400mg/kg perez 5 days, benadryl/tylenol/steroid premeds gentle hydraton Cr stable platelets improved bradycardia--cardiology consul will discharge after todays dose ---on prednisone --20mg 3 tabs. daily ==60mg for 2 days followed by 40mg'd will add mepron 1500mg daily
[2016-10-29] MEDS: metFORMIN HCL 500 MG TABLET (FP) PO SCH ×2 (06:29→17:19)
[2016-10-29] MEDS: glipiZIDE 5 MG TABLET (FP) PO SCH ×2 (06:29→17:18)
[2016-10-29] MEDS: morphine SO4 SUSTAINED ACTING 30 MG TABLET.SA PO SCH ×2 (06:33→15:03)
[2016-10-29] MEDS: INSULIN SLIDING SCALE (NOVOLOG) 1 VIAL SQ SCH ×3 (06:34→17:19)
[2016-10-29 07:47] LABS: BASOPHIL 0.5 % (0-2.0); EOSINOPHIL 0.2 % (0-4.5); MCH 24.7 pg (25.7-33.7); MCHC 31.8 g/dl (32.0-36.0); MEAN CELL VOLUME 77.7 fl (80-96); MEAN PLT VOLUME 8.6 fl (7.5-11.1); NEUTROPHILS 67.9 % (42.8-82.8); PLATELET COUNT 278 K/MM3 (134-434); RDW 18.4 % (11.6-15.6); WHITE BLOOD COUNT 13.5 K/mm3 (4.0-10.0)
[2016-10-29 08:02] LABS: CALCIUM 7.8 mg/dL (8.5-10.1); CREATININE 1.2 mg/dL (0.55-1.02)
[2016-10-29 08:22] LABS: COCKROFT - GAULT 78.455
[2016-10-29] MEDS ORDERED: methylPREDNISolone NA SUCC 125 MG/2 ML VIAL IVPB SCH (10:00)
[2016-10-29] MEDS: ALLOPURINOL 100 MG TABLET (FP) PO SCH (10:18)
[2016-10-29] MEDS: SERTRALINE HCL 25 MG TABLET (FP) PO SCH (10:18)
[2016-10-29] MEDS: ACETAMINOPHEN 325 MG TABLET (FP) PO SCH (10:19)
[2016-10-29] MEDS: amLODIPine BESYLATE 5 MG TABLET (FP) PO SCH (10:20)
[2016-10-29] MEDS: LISINOPRIL 10 MG TABLET (FP) PO SCH (10:20)
[2016-10-29] MEDS: PANTOPRAZOLE 40 MG TABLET (FP) PO SCH (10:20)
[2016-10-29] MEDS: IMMUNE GLOB,GAM CAPRYLATE(IGG) 40 GM IVPB SCH (11:37)
--- NOTE | 2016-10-29 12:04 | PN ---
Progress Note (short form) - Note Progress Note: Progress Note: Patient seen in follow up. No events overnight. No complaints at this time. Meds reviewed. Current Medications Generic Name Dose Route Start Last Admin Trade Name Freq PRN Reason Stop Dose Admin Albuterol Sulfate 2 puff 10/22/16 20:15 Ventolin Hfa Inhaler - IH Q4H PRN SHORT OF BREATH/WHEEZING Allopurinol 150 mg 10/23/16 10:00 10/29/16 10:18 Zyloprim - PO 150 mg DAILY PRASHANT Administration Alprazolam 0.5 mg 10/22/16 20:10 10/28/16 22:45 Xanax - PO 0.5 mg Q8H PRN Administration ANXIETY Amlodipine Besylate 5 mg 10/27/16 10:15 10/29/16 10:20 Norvasc - PO 5 mg DAILY PRASHANT Administration Calcium Carbonate 650 mg 10/22/16 22:00 10/28/16 22:03 Calcium Carbonate - PO 650 mg BID PRASHANT Administration Docusate Sodium 100 mg 10/23/16 11:15 10/28/16 22:03 Colace - PO 100 mg BID PRASHANT Administration Glipizide 5 mg 10/23/16 07:00 10/29/16 06:29 Glucotrol - PO 5 mg BIDAC PRASHANT Administration Sodium Chloride 1,000 mls @ 42 mls/hr 10/22/16 21:45 10/28/16 22:02 Normal Saline - IV 42 mls/hr ASDIR PRASHANT Administration Immune Globulin 400 mls @ 100 mls/hr 10/25/16 10:00 10/29/16 11:37 Gamunex-C IVPB 10/29/16 13:59 100 mls/hr DAILY PRASHANT Administration Insulin Aspart 1 vial 10/22/16 22:00 10/29/16 06:34 Novolog Vial Sliding Scale - SQ Not Given ACHS PRASHANT Protocol Lisinopril 10 mg 10/23/16 10:00 10/29/16 10:20 Prinivil PO 10 mg DAILY PRASHANT Administration Metformin HCl 1,000 mg 10/23/16 07:00 10/29/16 06:29 Glucophage - PO 1,000 mg BIDAC PRASHANT Administration Methylprednisolone Sodium Succinate 60 mg 10/29/16 10:00 10/29/16 10:18 Solu-Medrol - IVPB 60 mg DAILY PRASHANT Administration Morphine Sulfate 30 mg 10/22/16 22:00 10/29/16 06:33 Ms Contin - PO 30 mg TID PRASHANT Administration Morphine Sulfate 15 mg 10/22/16 20:10 10/28/16 17:31 Msir - PO 15 mg Q4H PRN Administration breakthrough pain Ondansetron HCl 4 mg 10/24/16 22:20 10/25/16 15:51 Zofran Injection IVPB 4 mg Q8H PRN Administration NAUSEA AND/OR VOMITING Pantoprazole Sodium 40 mg 10/23/16 10:00 10/29/16 10:20 Protonix - PO 40 mg DAILY PRASHANT Administration Potassium Citrate/Citric Acid 20 meq 10/26/16 22:00 10/28/16 22:04 Cytra-K - PO 10 ml BID PRASHANT Administration Sertraline HCl 25 mg 10/23/16 10:00 10/29/16 10:18 Zoloft - PO 25 mg DAILY PRASHANT Administration On examination: Last Vital Signs Temp Pulse Resp BP Pulse Ox 97.8 F 56 L 18 139/64 96 10/29/16 08:14 10/29/16 08:14 10/29/16 08:14 10/29/16 08:14 10/28/16 21:00 General: In no acute distress. Extremities: no pedal edema. Resp: breathing comfortably, not tachypneic Abdomen: Obese. Neuro: Alert and oriented, non-focal. Skin: No rash, no petechiiae. Labs reviewed: CBC, BMP 10/29/16 06:00 10/29/16 06:00 Assessment: ITP (?secondary ITP, with background indolent mantle cell), with recent exacerbation, responded to steroids/IVIG. Will go home today on steroid taper, as described by Dr Orellana. Noted to have mild microcytic anemia, likely attributable to iron deficiency. (No stainable iron seen on bone marrow biopsy April 2016) Recommend out patient follow up.
[2016-10-29] MEDS: morphine SULFATE IMMEDIATE RELEASE 30 MG TAB PO PRN (12:24)
--- NOTE | 2016-10-29 12:54 | PN ---
Progress Note (short form) - Note Progress Note: Renal follow up for CKD Pt seen and examined at the bedside getting IVF no complaints k is 4.6 today Vital Signs Temperature 97.8 F 10/29/16 08:14 Pulse Rate 56 L 10/29/16 08:14 Respiratory Rate 18 10/29/16 08:14 Blood Pressure 139/64 10/29/16 08:14 O2 Sat by Pulse Oximetry (%) 96 10/28/16 21:00 Intake & Output 10/26/16 10/27/16 10/28/16 10/29/16 23:59 23:59 23:59 23:59 Intake Total 0564 829 1451 540 Balance 7281 923 0151 540 Weight 238 lb 3.2 oz 236 lb 8 oz 236 lb 3 oz 237 lb 9.6 oz Gen: NAD CVS: Braycardic no M/R Lungs :CTA, no rales or wheeze Abd: soft NT/ND Ext: No edema, clubbing or cyanosis : No bladder distension CBC, BMP 10/29/16 06:00 10/29/16 06:00 Current Medications Albuterol Sulfate (Ventolin Hfa Inhaler -) 2 puff IH Q4H PRN PRN Reason: SHORT OF BREATH/WHEEZING Allopurinol (Zyloprim -) 150 mg PO DAILY [facility] Last Admin: 10/29/16 10:18 Dose: 150 mg Alprazolam (Xanax -) 0.5 mg PO Q8H PRN PRN Reason: ANXIETY Last Admin: 10/28/16 22:45 Dose: 0.5 mg Amlodipine Besylate (Norvasc -) 5 mg PO DAILY [facility] Last Admin: 10/29/16 10:20 Dose: 5 mg Calcium Carbonate (Calcium Carbonate -) 650 mg PO BID [facility] Last Admin: 10/28/16 22:03 Dose: 650 mg Docusate Sodium (Colace -) 100 mg PO BID [facility] Last Admin: 10/28/16 22:03 Dose: 100 mg Glipizide (Glucotrol -) 5 mg PO BIDAC [facility] Last Admin: 10/29/16 06:29 Dose: 5 mg Sodium Chloride (Normal Saline -) 1,000 mls @ 42 mls/hr IV ASDIR [facility] Last Admin: 10/28/16 22:02 Dose: 42 mls/hr Immune Globulin (Gamunex-C) 400 mls @ 100 mls/hr IVPB DAILY [facility] Stop: 10/29/16 13:59 Last Admin: 10/29/16 11:37 Dose: 100 mls/hr Insulin Aspart (Novolog Vial Sliding Scale -) 1 vial SQ ACHS [facility] PRN Reason: Protocol Last Admin: 10/29/16 06:34 Dose: Not Given Lisinopril (Prinivil) 10 mg PO DAILY [facility] Last Admin: 10/29/16 10:20 Dose: 10 mg Metformin HCl (Glucophage -) 1,000 mg PO BIDAC [facility] Last Admin: 10/29/16 06:29 Dose: 1,000 mg Methylprednisolone Sodium Succinate (Solu-Medrol -) 60 mg IVPB DAILY [facility] Last Admin: 10/29/16 10:18 Dose: 60 mg Morphine Sulfate (Ms Contin -) 30 mg PO TID [facility] Last Admin: 10/29/16 06:33 Dose: 30 mg Morphine Sulfate (Msir -) 15 mg PO Q4H PRN PRN Reason: breakthrough pain Last Admin: 10/29/16 12:24 Dose: 15 mg Ondansetron HCl (Zofran Injection) 4 mg IVPB Q8H PRN PRN Reason: NAUSEA AND/OR VOMITING Last Admin: 10/25/16 15:51 Dose: 4 mg Pantoprazole Sodium (Protonix -) 40 mg PO DAILY [facility] Last Admin: 10/29/16 10:20 Dose: 40 mg Potassium Citrate/Citric Acid (Cytra-K -) 20 meq PO BID [facility] Last Admin: 10/28/16 22:04 Dose: 10 ml Sertraline HCl (Zoloft -) 25 mg PO DAILY [facility] Last Admin: 10/29/16 10:18 Dose: 25 mg A/P 66 year old woman with PMhx of Mantle Cell Lymphoma, ITP, Hydronephrosis, Staghorn Calculi presented with worsening thrombocytopenia #CKD Stage 3 with b/l Hydronephrosis and staghorn calculi Renal function stable #Nephrolithiasis continue potassium citrate to prevent formation of new Ca-phosphate stones #Thrombocytopenia continue IVIG as per Heme #Mild Hyperkalemia K is WNL at this time continue K-citrate and Linsopril #Hypertension Amlodpine added for better BP control continue Lisinopril Pt to have repeat labs in 1 week adn to follow up in the office on discharge Dash Padron DO
[2016-10-29] MEDS: ALPRAZolam 0.25 MG TABLET PO PRN (13:47)
[2016-10-29] MEDS ORDERED: predniSONE 20 MG TABLET (UD) PO SCH (14:00)
--- NOTE | 2016-10-29 14:04 | DS ---
Physical Examination Vital Signs: Vital Signs Temperature 97.8 F 10/29/16 08:14 Pulse Rate 56 L 10/29/16 08:14 Respiratory Rate 18 10/29/16 08:14 Blood Pressure 139/64 10/29/16 08:14 O2 Sat by Pulse Oximetry (%) 96 10/28/16 21:00 Constitutional: Yes: Calm Eyes: Yes: Conjunctiva Clear Cardiovascular: Yes: Regular Rate and Rhythm Respiratory: Yes: Regular Gastrointestinal: Yes: Soft. No: Tenderness Edema: No Neurological: Yes: Alert, Oriented Labs: CBC, BMP 10/29/16 06:00 10/29/16 06:00 Discharge Summary Reason For Visit: IDIOPATHIC THROMBOCYTOPENIC PURPURA Current Active Problems Chronic kidney disease (Acute) ITP (idiopathic thrombocytopenic purpura) (Acute) Mantle cell lymphoma (Acute) Thrombopenia (Acute) DM acute Hypertension acute Procedures: Principal: IV Steroids and Immune Globulin Other Procedures: Daily cbcc; BGM's. Heme Consultation Hospital Course: Improvement in Platelet count. Condition: Stable - Instructions Diet, Activity, Other Instructions: No added sugar or salt. Call Dr. Orellana Monday Re: continuing dose of Prednisone. Prednisone 60mg for 2 days ; the 40mg a day until Hematology is called. Referrals: Subhash Mcfarlane MD [Primary Care Provider] - Reyna Pham MD [Staff Physician] - Disposition: HOME - Home Medications Comprehensive Discharge Medication List: Ambulatory Orders Sertraline HCl [Zoloft -] 25 mg PO DAILY 08/28/14 Lisinopril [Prinivil] 10 mg PO DAILY #30 tablet 09/09/14 Alprazolam [Xanax] 0.5 mg PO Q8H PRN #0 tablet 09/10/14 Morphine *Sr* [MS Contin -] 30 mg PO TID #0 tablet.sa 09/10/14 Pantoprazole Sodium [Protonix -] 40 mg PO DAILY #0 tablet.ec 09/10/14 Glipizide [Glucotrol Xl] 5 mg PO BID 11/12/15 Metformin HCl [Metformin HCl ER] 1,000 mg PO BID 03/31/16 Morphine Sulfate 15 mg PO QID PRN 03/31/16 Allopurinol [Zyloprim -] 150 mg PO DAILY #60 tablet 04/07/16 Albuterol Sulfate Inhaler - [Ventolin HFA Inhaler -] 1 - 2 inh PO Q4H 08/09/16 Calcium Carbonate 648 mg PO BID 08/09/16 Potassium Citrate [Potassium Citrate ER] 10 meq PO TID 08/09/16 Acetaminophen [Tylenol .Regular Strength -] 650 mg PO DAILY tablet 10/29/16 Amlodipine Besylate [Norvasc -] 5 mg PO DAILY #0 tablet 10/29/16 Docusate Sodium [Colace -] 100 mg PO BID #60 tab-cap 10/29/16 Prednisone [Deltasone -] 20 mg PO TID #45 tablet 10/29/16
[2016-10-29] MEDS ORDERED: PT OWN MED DRAWER 7, Y5N ONE (15:01)
[2016-10-29] MEDS: POTASSIUM CITRATE/CITRIC ACID 2 MEQ/ML ML PO SCH (15:04)
[2016-10-29] MEDS: CALCIUM CARBONATE 650 MG TABLET PO SCH (15:05)
[2016-10-29] MEDS: DOCUSATE SODIUM 100 MG CAPSULE (FP) PO SCH (15:05)
[2016-10-29 18:59] VITALS: BP 124/69; PULSE 74; TEMP 99.3
== END 2016-10-29 18:00 | disposition home or self-care (01) | DRG 813 ==
LOC: JER 16:47 → JERBED 19:33 → J7W 20:10
PROVIDERS: ADMIT Specialist; ATTEND Specialist
PROC: 30233R1 Transfusion of Nonautologous Platelets into Peripheral Vein, Percutaneous Approach (ICD-10-PCS; principal; 2016-10-22)
DX: D69.3 Immune thrombocytopenic purpura (principal); C83.10 Mantle cell lymphoma, unspecified site; K57.92 Diverticulitis of intestine, part unspecified, without perforation or abscess without bleeding; N13.2 Hydronephrosis with renal and ureteral calculous obstruction; N31.9 Neuromuscular dysfunction of bladder, unspecified; F41.8 Other specified anxiety disorders; K44.9 Diaphragmatic hernia without obstruction or gangrene; D69.6 Thrombocytopenia, unspecified; M54.5 Low back pain; M16.11 Unilateral primary osteoarthritis, right hip; I12.9 Hypertensive chronic kidney disease with stage 1 through stage 4 chronic kidney disease, or unspecified chronic kidney disease; E11.22 Type 2 diabetes mellitus with diabetic chronic kidney disease; N18.3 Chronic kidney disease, stage 3 (moderate); E66.9 Obesity, unspecified; Z68.39 Body mass index [BMI] 39.0-39.9, adult; E87.5 Hyperkalemia; R00.1 Bradycardia, unspecified; D50.9 Iron deficiency anemia, unspecified; Z90.81 Acquired absence of spleen
CPT/HCPCS: 36415; 36430; 71250-TC; 80048; 80053; 83615; 83735; 84100; 84550; 85025; 85610; 85651; 85730; 86140; 86850; 86900; 86901; 87040; 87086; 93005; 93010; 97116-GP; 97162-PG; 99284-25; J1459; P9034

== ENCOUNTER 2016-12-23 14:09 | Inpatient (IN) | payer OTHER, MEDICARE ==
[2016-12-23] MEDS ORDERED: ALBUTEROL SO4 6.7 GM HFA INHALER IH PRN (16:24)
[2016-12-23 16:57] LABS: BASOPHIL 0.4 % (0-2.0); MCH 25.5 pg (25.7-33.7); MCHC 30.8 g/dl (32.0-36.0); MEAN CELL VOLUME 82.7 fl (80-96); NEUTROPHILS 92.8 % (42.8-82.8); RDW 18.9 % (11.6-15.6); WHITE BLOOD COUNT 10.2 K/mm3 (4.0-10.0)
[2016-12-23 17:11] LABS: INR 0.95 (0.82-1.09); PROTHROMBIN TIME (PATIENT) 10.4 SEC (9.98-11.88)
[2016-12-23 17:14] LABS: ACTIVATED PTT 19.6 SECONDS (26.9-34.4)
[2016-12-23] MEDS ORDERED: IMMUNE GLOBULIN (IgG) 10 GM VIAL IVPB SCH (17:30)
[2016-12-23] MEDS ORDERED: DEXAMETHASONE SOD PHOSPHATE 4 MG/1 ML VIAL IVPB SCH (17:30)
[2016-12-23 17:36] LABS: MEAN PLT VOLUME 8.9 fl (7.5-11.1); PLATELET COMMENT2 NO CLUMPING NOTED; PLATELET COMMENT3 NO CLOTTING DETECTED; PLATELET ESTIMATE MARKEDLY DECREASED (NORMAL)
[2016-12-23 17:38] LABS: PLATELET COUNT 22 K/MM3 (134-434)
[2016-12-23 17:43] LABS: ALBUMIN 3.2 g/dl (3.4-5.0); ANION GAP 12 (8-16); BILIRUBIN,TOTAL 0.5 mg/dL (0.2-1.0); CALCIUM 8.6 mg/dL (8.5-10.1); CO2 24 mmol/L (21-32); CREATININE 1.7 mg/dL (0.55-1.02); LDH 153 U/L (84-246); SGOT/AST 12 U/L (15-37); SGPT/ALT 10 U/L (12-78)
[2016-12-23 17:44] LABS: ALK PHOS 94 U/L (45-117); TOT PROT 8.1 g/dl (6.4-8.2)
[2016-12-23 17:50] LABS: GLUCOSE,RANDOM 398 mg/dL (74-106)
[2016-12-23] MEDS ORDERED: INSULIN (NOVOLOG) ASPART 100 UNITS/ML 10ML VIAL SQ ONE (18:30)
[2016-12-23 18:59] VITALS: BMI 36.6
--- NOTE | 2016-12-23 18:59 | HP ---
Admitting History and Physical - Admission Chief Complaint: low platelets History of Present Illness: 66 yo female, h/o ITP, Non-hodgkins lymphoma (not on any active lymphoma treatment) here for thrombocytopenia. She was hospitalized for IVIG and steroids about 3 months ago. She has been getting weekly home blood draws and last week's PLT in low 100,000's, now at 23,000. Did note some leg redness this morning which seems to have improved. Notes chronic left sided pain and dyspnea related to diaphragmatic hernia at site of her splenectomy. No bleeding noted. History Source: Patient - Past Medical History Cardiovascular: Yes: HTN Pulmonary: Yes: Other (diaphragmatic hernia) Gastrointestinal: Yes: Diverticulitis (osteoarthritis right hip) Renal/: Yes: Renal Calculi, UTI, Other (bladder dysfunction) ...: No Heme/Onc: Yes: Thrombocytopenia (s/p splenectomy), Other (lymphoma -Mantle cell) Psych: Yes: Anxiety, Depression Musculoskeletal: Yes: Chronic low back pain, Osteoarthritis (right hip) Rheumatology: Yes: Other (degenerative spine disease) Endocrine: Yes: Diabetes Mellitus - Past Surgical History Past Surgical History: Yes: Laminectomy (cervical laminectomy x2 (2001)), Splenectomy, Thoracotomy - Smoking History Smoking history: Former smoker Have you smoked in the past 12 months: No Aproximately how many cigarettes per day: 0 If you are a former smoker, when did you quit?: 2001 - Alcohol/Substance Use Hx Alcohol Use: No History of Substance Use: reports: None - Social History ADL: Independent 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, , 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 History of Recent Travel: No Home Medications - Allergies Allergies/Adverse Reactions: Allergies Allergy/AdvReac Type Severity Reaction Status Date / Time ciprofloxacin HCl Allergy Intermediate Itching Verified 10/22/16 16:49 [From Cipro] levofloxacin [From Levaquin] Allergy Intermediate Rash Verified 10/22/16 16:49 atorvastatin calcium Allergy Mild muscle Verified 10/22/16 16:49 [From Lipitor] aches - Home Medications Home Medications: Ambulatory Orders Sertraline HCl [Zoloft -] 25 mg PO DAILY 08/28/14 Lisinopril [Prinivil] 10 mg PO DAILY #30 tablet 09/09/14 Alprazolam [Xanax] 0.5 mg PO Q8H PRN #0 tablet 09/10/14 Morphine *Sr* [MS Contin -] 30 mg PO TID #0 tablet.sa 09/10/14 Pantoprazole Sodium [Protonix -] 40 mg PO DAILY #0 tablet.ec 09/10/14 Glipizide [Glucotrol Xl] 5 mg PO BID 11/12/15 Metformin HCl [Metformin HCl ER] 1,000 mg PO BID 03/31/16 Morphine Sulfate 15 mg PO QID PRN 03/31/16 Allopurinol [Zyloprim -] 150 mg PO DAILY #60 tablet 04/07/16 Albuterol Sulfate Inhaler - [Ventolin HFA Inhaler -] 1 - 2 inh PO Q4H 08/09/16 Calcium Carbonate 648 mg PO BID 08/09/16 Potassium Citrate [Potassium Citrate ER] 10 meq PO TID 08/09/16 Acetaminophen [Tylenol .Regular Strength -] 650 mg PO DAILY tablet 10/29/16 Amlodipine Besylate [Norvasc -] 5 mg PO DAILY #0 tablet 10/29/16 Docusate Sodium [Colace -] 100 mg PO BID #60 tab-cap 10/29/16 Prednisone [Deltasone -] 20 mg PO TID #45 tablet 10/29/16 Family Disease History - Family Disease History Family Disease History: Heart Disease: Mother, Other: Father (thrombocytopenia) , Daughter (hypothyroidism) Review of Systems - Review of Systems Constitutional: denies: Chills, Fever Eyes: reports: No Symptoms HENT: denies: Difficult Swallowing, Epistaxis, Throat Pain Neck: denies: Stiffness, Tenderness Cardiovascular: denies: Chest Pain, Palpitations Respiratory: denies: Cough, Hemoptysis, Wheezing Gastrointestinal: reports: Abdominal Pain (chronic left sided pressure from diaphragmatic hernia). denies: Nausea, Vomiting Genitourinary: denies: Burning, Discharge, Dysuria Musculoskeletal: reports: Other (chronic right hip, back pain) Neurological: denies: Change in LOC Physical Examination Vital Signs: Vital Signs Temperature 98.6 F 12/23/16 18:15 Pulse Rate 98 H 12/23/16 18:15 Respiratory Rate 20 12/23/16 18:15 Blood Pressure 122/53 12/23/16 18:15 O2 Sat by Pulse Oximetry (%) Constitutional: Yes: Well Nourished, No Distress, Calm Eyes: Yes: Conjunctiva Clear, EOM Intact, PERRL HENT: Yes: Atraumatic, Normocephalic Neck: Yes: Supple, Trachea Midline Cardiovascular: Yes: Regular Rate and Rhythm, S1, S2. No: Murmur Respiratory: Yes: Regular, Diminished (on left base) Gastrointestinal: Yes: Normal Bowel Sounds, Soft. No: Distention, Tenderness Extremities: Yes: Other (early venous stasis changes (slight discoloration to lower legs)) Edema: No Neurological: Yes: Alert, Oriented Labs: CBC, BMP 12/23/16 16:45 12/23/16 04:45 Problem List - Problems (1) ITP (idiopathic thrombocytopenic purpura) Assessment/Plan: -to restart steroids and IVIG, hematology following Code(s): D69.3 - IMMUNE THROMBOCYTOPENIC PURPURA (2) Diabetes mellitus Assessment/Plan: -likely control to worsen on steroids -to start insulin sliding scale, cont oral hypoglycemics as well Code(s): E11.9 - TYPE 2 DIABETES MELLITUS WITHOUT COMPLICATIONS Qualifiers: Diabetes mellitus jail insulin use: without superintendent terminal use Chronic kidney disease stage: stage 2 (mild) (3) Mantle cell lymphoma Assessment/Plan: -appears not to be active currently, not on active treatment Code(s): C83.10 - MANTLE CELL LYMPHOMA, UNSPECIFIED SITE Qualifiers: Lymphoma site: unspecified region Qualified Code(s): C83.10 - Mantle cell lymphoma, unspecified site (4) Renal insufficiency Assessment/Plan: -likely due to diabetes -creatinine stable at 1.5-1.7 Code(s): N28.9 - DISORDER OF KIDNEY AND URETER, UNSPECIFIED (5) Diaphragmatic hernia Assessment/Plan: -stable -causes pain and shortness of breath (may need surgical correction eventually) Code(s): K44.9 - DIAPHRAGMATIC HERNIA WITHOUT OBSTRUCTION OR GANGRENE Qualifiers: Obstruction and gangrene presence: without obstruction or gangrene Qualified Code(s): K44.9 - Diaphragmatic hernia without obstruction or gangrene (6) HTN (hypertension) Assessment/Plan: -stable on Norvasc, lisinopril Code(s): I10 - ESSENTIAL (PRIMARY) HYPERTENSION Qualifiers: Hypertension type: essential hypertension Qualified Code(s): I10 - Essential (primary) hypertension (7) Post-splenectomy Assessment/Plan: -has received pneumonia vaccines Code(s): 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 (8) Osteoarthritis Assessment/Plan: -chronic hip and knee pain -on MS contin and short acting morphine prn Code(s): M19.90 - UNSPECIFIED OSTEOARTHRITIS, UNSPECIFIED SITE
[2016-12-23] MEDS: glipiZIDE-XL 5 MG TAB.ER.24 PO SCH (19:02)
[2016-12-23] MEDS ORDERED: ACETAMINOPHEN 325 MG TABLET (FP) ONE (21:33)
[2016-12-23] MEDS: CALCIUM CARBONATE 650 MG TABLET PO SCH (21:46)
[2016-12-23] MEDS: morphine SO4 SUSTAINED ACTING 30 MG TABLET.SA PO SCH (21:47)
[2016-12-23] MEDS: DOCUSATE SODIUM 100 MG CAPSULE (FP) PO SCH (21:51)
[2016-12-23] MEDS: INSULIN SLIDING SCALE (NOVOLOG) 1 VIAL SQ SCH (21:52)
[2016-12-23] MEDS: ACETAMINOPHEN 325 MG TABLET (FP) PO SCH (21:53)
[2016-12-23] MEDS: DEXAMETHASONE SOD PHOSPHATE 4 MG/1 ML VIAL IVPB SCH (22:09)
[2016-12-23] MEDS: IMMUNE GLOB,GAM CAPRYLATE(IGG) 40 GM IVPB SCH (22:35)
[2016-12-24] MEDS: morphine SULFATE IMMEDIATE RELEASE 30 MG TAB PO PRN ×3 (00:10→18:16)
[2016-12-24] MEDS: morphine SO4 SUSTAINED ACTING 30 MG TABLET.SA PO SCH ×3 (06:16→21:18)
[2016-12-24] MEDS: metFORMIN HCL 500 MG TABLET (FP) PO SCH ×2 (06:24→18:05)
[2016-12-24] MEDS: INSULIN SLIDING SCALE (NOVOLOG) 1 VIAL SQ SCH ×4 (06:24→21:16)
[2016-12-24 07:31] LABS: ANION GAP 7 (8-16); CALCIUM 8.6 mg/dL (8.5-10.1); CO2 26 mmol/L (21-32); CREATININE 1.3 mg/dL (0.55-1.02); GLUCOSE,RANDOM 180 mg/dL (74-106)
[2016-12-24 07:37] LABS: MCH 26.2 pg (25.7-33.7); MCHC 31.9 g/dl (32.0-36.0); RDW 18.3 % (11.6-15.6); WHITE BLOOD COUNT 10.3 K/mm3 (4.0-10.0)
[2016-12-24] MEDS: glipiZIDE-XL 5 MG TAB.ER.24 PO SCH ×2 (08:03→18:06)
[2016-12-24] MEDS ORDERED: PT OWN MED DRAWER 7, Y5N ONE ×2 (09:55→19:40)
[2016-12-24] MEDS: ALLOPURINOL 100 MG TABLET (FP) PO SCH (09:56)
[2016-12-24] MEDS: SERTRALINE HCL 25 MG TABLET (FP) PO SCH (09:58)
[2016-12-24] MEDS: PANTOPRAZOLE 40 MG TABLET (FP) PO SCH (09:58)
[2016-12-24] MEDS: DOCUSATE SODIUM 100 MG CAPSULE (FP) PO SCH ×2 (09:59→21:17)
[2016-12-24] MEDS ORDERED: LISINOPRIL 10 MG TABLET (FP) PO SCH (10:00)
[2016-12-24] MEDS: CALCIUM CARBONATE 650 MG TABLET PO SCH ×2 (10:00→21:17)
[2016-12-24] MEDS ORDERED: ACETAMINOPHEN 325 MG TABLET (FP) PO SCH (10:00)
[2016-12-24] MEDS: ACETAMINOPHEN 325 MG TABLET (FP) PO SCH ×2 (10:10→21:37)
[2016-12-24 10:12] LABS: PLATELET COUNT 50 K/MM3 (134-434)
--- NOTE | 2016-12-24 10:59 | CONSULT ---
Consult Consult Specialty:: hematology Referred by:: Reason for Consultation:: Thrombocytopenia - History of Present Illness History of Present Illness: is a 66 year old patient with h/o mantle cell lymphoma , ITP, s/p steroids, rituxan, splenectomy, N-Plate. Splenic pathology was c/w mantle cell lymphoma.Patient was in remission after splenectomy. She did have a BM biopsy in 04/2016 with less than 5% of Mantle cell. Most recent ITP flare was in 10/2016, was discharged on a short steroid taper. She now is admitted with Thrombocytopenia. She also has a PMH of NIDDM, diverticulitis, anxiety, bladder dysfunction, HTN, and ITP , and a diaphrgamatic hernia post splenectomy complication. She denies any mucosal bleeding or bleed elsewhere. She denies recent fevers, chills, headache or dizziness. She denies recent nausea, vomit, diarrhea or constipation. She denies recent dysuria, frequency, urgency or hematuria. She was directly admitted under , [place] [id number]. She mentioned to me that she took prednisone 60mg yesterday at home. - History Source History Provided By: Patient Limitations to Obtaining History: No Limitations - Past Medical History Cardio/Vascular: Yes: HTN Pulmonary: Yes: Other (diaphragmatic hernia) Gastrointestinal: Yes: Diverticulitis (osteoarthritis right hip) Renal/: Yes: Renal Calculi, UTI, Other (bladder dysfunction) ...: No Psych: Yes: Anxiety, Depression Musculoskeletal: Yes: Chronic low back pain, Osteoarthritis (right hip) Rheumatology: Yes: Other (degenerative spine disease) Endocrine: Yes: Diabetes Mellitus Additional Medical History: ITP, Mantle Cell Lymphoma - Past Surgical History Past Surgical History: Yes: Laminectomy (cervical laminectomy x2 (2001)), Splenectomy, Thoracotomy - Alcohol/Substance Use Hx Alcohol Use: No History of Substance Use: reports: None - Smoking History Smoking history: Former smoker Have you smoked in the past 12 months: No Aproximately how many cigarettes per day: 0 If you are a former smoker, when did you quit?: 2001 - Social History Usual Living Arrangement: Other ADL: Independent 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, , 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 History of Recent Travel: No Home Medications - Allergies Allergies/Adverse Reactions: Allergies Allergy/AdvReac Type Severity Reaction Status Date / Time ciprofloxacin HCl Allergy Intermediate Itching Verified 10/22/16 16:49 [From Cipro] levofloxacin [From Levaquin] Allergy Intermediate Rash Verified 10/22/16 16:49 atorvastatin calcium Allergy Mild muscle Verified 10/22/16 16:49 [From Lipitor] aches - Home Medications Home Medications: Ambulatory Orders Sertraline HCl [Zoloft -] 25 mg PO DAILY 08/28/14 Lisinopril [Prinivil] 10 mg PO DAILY #30 tablet 09/09/14 Alprazolam [Xanax] 0.5 mg PO Q8H PRN #0 tablet 09/10/14 Morphine *Sr* [MS Contin -] 30 mg PO TID #0 tablet.sa 09/10/14 Pantoprazole Sodium [Protonix -] 40 mg PO DAILY #0 tablet.ec 09/10/14 Glipizide [Glucotrol Xl] 5 mg PO BID 11/12/15 Metformin HCl [Metformin HCl ER] 1,000 mg PO BID 03/31/16 Morphine Sulfate 15 mg PO QID PRN 03/31/16 Allopurinol [Zyloprim -] 150 mg PO DAILY #60 tablet 04/07/16 Albuterol Sulfate Inhaler - [Ventolin HFA Inhaler -] 1 - 2 inh PO Q4H 08/09/16 Calcium Carbonate 648 mg PO BID 08/09/16 Potassium Citrate [Potassium Citrate ER] 10 meq PO TID 08/09/16 Acetaminophen [Tylenol .Regular Strength -] 650 mg PO DAILY tablet 10/29/16 Amlodipine Besylate [Norvasc -] 5 mg PO DAILY #0 tablet 10/29/16 Docusate Sodium [Colace -] 100 mg PO BID #60 tab-cap 10/29/16 Prednisone [Deltasone -] 20 mg PO TID #45 tablet 10/29/16 Family Disease History - Family Disease History Family Disease History: Heart Disease: Mother, Other: Father (thrombocytopenia) , Daughter (hypothyroidism) Review of Systems - Review of Systems Constitutional: denies: Chills, Diaphoresis, Fever, Lethargy, Loss of Appetite, Unintentional Wgt. Loss Eyes: denies: Blurred Vision HENT: denies: Difficult Swallowing Neck: denies: Lumps, Pain on Movement Cardiovascular: reports: Shortness of Breath. denies: Chest Pain, Palpitations Respiratory: denies: Cough, Exercise Intolerance, Hemoptysis Gastrointestinal: denies: Abdominal Pain, Bloating, Constipation, Nausea, Rectal Bleeding, Vomiting Genitourinary: denies: Burning, Discharge, Dysuria Musculoskeletal: reports: Joint Pain Integumentary: denies: Blister, Bruising, Change in Color, Erythema, Rash, Wound Neurological: denies: Change in LOC, Change in Speech Endocrine: reports: No Symptoms Hematology/Lymphatic: denies: Easily Bruised, Excessive Bleeding, Swollen Glands Physical Exam Vital Signs: Vital Signs Temperature 97.6 F 12/24/16 09:44 Pulse Rate 67 12/24/16 09:44 Respiratory Rate 20 12/24/16 09:44 Blood Pressure 115/50 12/24/16 09:44 O2 Sat by Pulse Oximetry (%) Labs: CBC, BMP 12/24/16 05:50 12/24/16 05:50 Problem List - Problems (1) ITP (idiopathic thrombocytopenic purpura) Code(s): D69.3 - IMMUNE THROMBOCYTOPENIC PURPURA (2) Mantle cell lymphoma Code(s): C83.10 - MANTLE CELL LYMPHOMA, UNSPECIFIED SITE Qualifiers: Lymphoma site: unspecified region Qualified Code(s): C83.10 - Mantle cell lymphoma, unspecified site (3) Renal insufficiency Code(s): N28.9 - DISORDER OF KIDNEY AND URETER, UNSPECIFIED (4) Diaphragmatic hernia Code(s): K44.9 - DIAPHRAGMATIC HERNIA WITHOUT OBSTRUCTION OR GANGRENE Qualifiers: Obstruction and gangrene presence: without obstruction or gangrene Qualified Code(s): K44.9 - Diaphragmatic hernia without obstruction or gangrene (5) Leukocytosis Code(s): D72.829 - ELEVATED WHITE BLOOD CELL COUNT, UNSPECIFIED Qualifiers: Leukocytosis type: unspecified Qualified Code(s): D72.829 - Elevated white blood cell count, unspecified (6) 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 (7) Anemia Code(s): D64.9 - ANEMIA, UNSPECIFIED Qualifiers: Anemia type: due to chronic kidney disease Qualified Code(s): - Assessment/Plan ITP: -refractory at this point -no trigger identified -will dose IVIG with 400mg/kg/day x5 days with premeds of benadryl, dex, tylenol ( D1 on 12/23) -will continue to monitor CBC and chem. ( renal insufficiency reported with IVIG )' -CBC in the am reviewed -fall precautions -??prolonged steroid taper upon discharge to be discussed Mantle cell Lymphoma: - s/p splenectomy -BMB in 04/2016 with <5% -Presently in remission Leukocytosis: -observed in post splenectomy pts and also pt is s/p receiving steroids CKD: -continue to monitor Cr -Pt with episodes of HyperK, will order chem20 for tomorrow -renal input appreciated. Anemia: -basic screening labs ordered. -will follow will follow closely
[2016-12-24] MEDS: amLODIPine BESYLATE 5 MG TABLET (FP) PO SCH ×2 (11:17→18:19)
--- NOTE | 2016-12-24 12:34 | PN ---
Progress Note, Physician Chief Complaint: Ms Painting says she is feeling fatigued but otherwise is doing well. No cp, sob, n/ v. - Current Medication List Current Medications: Active Medications Acetaminophen (Tylenol -) 650 mg PO DAILY [facility] Last Admin: 12/24/16 10:10 Dose: Not Given Albuterol Sulfate (Ventolin Hfa Inhaler -) 2 puff IH Q4H PRN PRN Reason: SHORTNESS OF BREATH Allopurinol (Zyloprim -) 150 mg PO DAILY [facility] Last Admin: 12/24/16 09:56 Dose: 150 mg Alprazolam (Xanax -) 0.5 mg PO Q8H PRN PRN Reason: ANXIETY Amlodipine Besylate (Norvasc -) 5 mg PO DAILY [facility] Last Admin: 12/24/16 11:17 Dose: Not Given Calcium Carbonate (Calcium Carbonate -) 650 mg PO BID [facility] Last Admin: 12/24/16 10:00 Dose: 650 mg Dexamethasone Sodium Phosphate (Decadron Injection -) 4 mg IVPB DAILY@1930 [facility] Stop: 12/27/16 19:31 Last Admin: 12/23/16 22:09 Dose: 4 mg Diphenhydramine HCl (Benadryl Injection -) 25 mg IVPB DAILY@1930 [facility] Stop: 12/27/16 19:31 Last Admin: 12/23/16 21:36 Dose: 25 mg Docusate Sodium (Colace -) 100 mg PO BID [facility] Last Admin: 12/24/16 09:59 Dose: 100 mg Glipizide (Glucotrol Xl -) 5 mg PO BIDAC [facility] Last Admin: 12/24/16 08:03 Dose: 5 mg Immune Globulin (Gamunex-C) 400 mls @ 100 mls/hr IVPB DAILY@20 [facility] Stop: 12/27/16 23:59 Last Admin: 12/23/16 22:35 Dose: 100 mls/hr Insulin Aspart (Novolog Vial Sliding Scale -) 1 vial SQ ACHS [facility] PRN Reason: Protocol Last Admin: 12/24/16 12:07 Dose: 2 unit Lisinopril (Prinivil) 10 mg PO DAILY [facility] Last Admin: 12/24/16 11:11 Dose: 10 mg Metformin HCl (Glucophage -) 1,000 mg PO BIDAC [facility] Last Admin: 12/24/16 06:24 Dose: Not Given Morphine Sulfate (Ms Contin -) 30 mg PO TID [facility] Last Admin: 12/24/16 06:16 Dose: 30 mg Morphine Sulfate (Msir -) 15 mg PO QID PRN PRN Reason: breakthrough pain Last Admin: 12/24/16 10:05 Dose: 15 mg Pantoprazole Sodium (Protonix -) 40 mg PO DAILY [facility] Last Admin: 12/24/16 09:58 Dose: 40 mg Sertraline HCl (Zoloft -) 25 mg PO DAILY [facility] Last Admin: 12/24/16 09:58 Dose: 25 mg - Objective Vital Signs: Vital Signs Temperature 97.6 F 12/24/16 09:44 Pulse Rate 68 12/24/16 11:00 Respiratory Rate 20 12/24/16 11:00 Blood Pressure 101/79 12/24/16 11:00 O2 Sat by Pulse Oximetry (%) Constitutional: Yes: No Distress, Calm, Obese Cardiovascular: Yes: Regular Rate and Rhythm. No: Gallop, Murmur, Rub Respiratory: Yes: Regular, CTA Bilaterally. No: Rales, Rhonchi, Wheezes Gastrointestinal: Yes: Normal Bowel Sounds, Soft. No: Distention, Tenderness Extremities: Yes: WNL Edema: No Labs: CBC, BMP 12/24/16 05:50 12/24/16 05:50 INR, PTT INR 0.95 (0.82-1.09) 12/23/16 04:45 Assessment/Plan (1) ITP (idiopathic thrombocytopenic purpura) Assessment/Plan: -hematology following -on IV steroids and IVIg -improving Code(s): D69.3 - IMMUNE THROMBOCYTOPENIC PURPURA (2) Diabetes mellitus Assessment/Plan: -continue home regimen -place on SSI, expect hyperglycemia secondary to steroids Code(s): E11.9 - TYPE 2 DIABETES MELLITUS WITHOUT COMPLICATIONS Qualifiers: Diabetes mellitus intermediate manager insulin use: without intermediate manager use Chronic kidney disease stage: stage 2 (mild) (3) Mantle cell lymphoma Assessment/Plan: -appears not to be active currently, not on active treatment Code(s): C83.10 - MANTLE CELL LYMPHOMA, UNSPECIFIED SITE Qualifiers: Lymphoma site: unspecified region Qualified Code(s): C83.10 - Mantle cell lymphoma, unspecified site (4) Renal insufficiency Assessment/Plan: -secondary to diabetes -stable Code(s): N28.9 - DISORDER OF KIDNEY AND URETER, UNSPECIFIED (5) Diaphragmatic hernia Assessment/Plan: -stable Code(s): K44.9 - DIAPHRAGMATIC HERNIA WITHOUT OBSTRUCTION OR GANGRENE Qualifiers: Obstruction and gangrene presence: without obstruction or gangrene Qualified Code(s): K44.9 - Diaphragmatic hernia without obstruction or gangrene (6) HTN (hypertension) Assessment/Plan: --continue norvasc and lisinopril Code(s): I10 - ESSENTIAL (PRIMARY) HYPERTENSION Qualifiers: Hypertension type: essential hypertension Qualified Code(s): I10 - Essential (primary) hypertension (7) Post-splenectomy Assessment/Plan: -has received pneumonia vaccines Code(s): 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 (8) Osteoarthritis Assessment/Plan: -pain control Code(s): M19.90 - UNSPECIFIED OSTEOARTHRITIS, UNSPECIFIED SITE
--- NOTE | 2016-12-24 12:49 | CONSULT ---
Consult Consult Specialty:: Nephrology ( [facility]) Referred by:: Dr. Ruiz Reason for Consultation:: Abnormal kidney functions. - History of Present Illness Chief Complaint: Patient admitted with progressive thrombocytopenia. History of Present Illness: This is a 66 year old patient with h/o mantle cell lymphoma , ITP, s/p steroids , rituxan, splenectomy.. Splenic pathology was c/w mantle cell lymphoma.Patient was in remission after splenectomy. The patient has h/o diaphragmatic tear, evisceration of bowels into the thorax. She now is admitted with Thrombocytopenia. She also has a PMH of NIDDM, diverticulitis, anxiety, bladder dysfunction, HTN, and ITP , and a diaphrgamatic hernia post splenectomy complication. She denies any mucosal bleeding or bleed elsewhere. She denies recent fevers, chills, headache or dizziness. She denies recent nausea, vomit, diarrhea or constipation. She denies recent dysuria, frequency, urgency or hematuria. - History Source History Provided By: Patient Limitations to Obtaining History: No Limitations - Past Medical History Cardio/Vascular: Yes: HTN Pulmonary: Yes: Other (diaphragmatic hernia) Gastrointestinal: Yes: Diverticulitis (osteoarthritis right hip) Renal/: Yes: Renal Calculi, UTI, Other (bladder dysfunction) ...: No Psych: Yes: Anxiety, Depression Musculoskeletal: Yes: Chronic low back pain, Osteoarthritis (right hip) Rheumatology: Yes: Other (degenerative spine disease) Endocrine: Yes: Diabetes Mellitus Additional Medical History: ITP, Mantle Cell Lymphoma - Past Surgical History Past Surgical History: Yes: Laminectomy (cervical laminectomy x2 (2002)), Splenectomy, Thoracotomy - Alcohol/Substance Use Hx Alcohol Use: No History of Substance Use: reports: None - Smoking History Smoking history: Former smoker Have you smoked in the past 12 months: No Aproximately how many cigarettes per day: 0 If you are a former smoker, when did you quit?: 2001 - Social History Usual Living Arrangement: Other ADL: Independent 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, , 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 History of Recent Travel: No Home Medications - Allergies Allergies/Adverse Reactions: Allergies Allergy/AdvReac Type Severity Reaction Status Date / Time ciprofloxacin HCl Allergy Intermediate Itching Verified 10/22/16 16:49 [From Cipro] levofloxacin [From Levaquin] Allergy Intermediate Rash Verified 10/22/16 16:49 atorvastatin calcium Allergy Mild muscle Verified 10/22/16 16:49 [From Lipitor] aches - Home Medications Home Medications: Ambulatory Orders Sertraline HCl [Zoloft -] 25 mg PO DAILY 08/28/14 Lisinopril [Prinivil] 10 mg PO DAILY #30 tablet 09/09/14 Alprazolam [Xanax] 0.5 mg PO Q8H PRN #0 tablet 09/10/14 Morphine *Sr* [MS Contin -] 30 mg PO TID #0 tablet.sa 09/10/14 Pantoprazole Sodium [Protonix -] 40 mg PO DAILY #0 tablet.ec 09/10/14 Glipizide [Glucotrol Xl] 5 mg PO BID 11/12/15 Metformin HCl [Metformin HCl ER] 1,000 mg PO BID 03/31/16 Morphine Sulfate 15 mg PO QID PRN 03/31/16 Allopurinol [Zyloprim -] 150 mg PO DAILY #60 tablet 04/07/16 Albuterol Sulfate Inhaler - [Ventolin HFA Inhaler -] 1 - 2 inh PO Q4H 08/09/16 Calcium Carbonate 648 mg PO BID 08/09/16 Potassium Citrate [Potassium Citrate ER] 10 meq PO TID 08/09/16 Acetaminophen [Tylenol .Regular Strength -] 650 mg PO DAILY tablet 10/29/16 Amlodipine Besylate [Norvasc -] 5 mg PO DAILY #0 tablet 10/29/16 Docusate Sodium [Colace -] 100 mg PO BID #60 tab-cap 10/29/16 Prednisone [Deltasone -] 20 mg PO TID #45 tablet 10/29/16 Family Disease History - Family Disease History Family Disease History: Heart Disease: Mother, Other: Father (thrombocytopenia) , Daughter (hypothyroidism) Review of Systems - Review of Systems Constitutional: reports: Malaise Neck: reports: No Symptoms Cardiovascular: denies: Chest Pain, Palpitations Respiratory: denies: Cough Gastrointestinal: reports: Bloating Genitourinary: denies: Burning Musculoskeletal: reports: Back Pain Physical Exam Vital Signs: Vital Signs Temperature 97.6 F 12/24/16 09:44 Pulse Rate 68 12/24/16 11:00 Respiratory Rate 20 12/24/16 11:00 Blood Pressure 101/79 12/24/16 11:00 O2 Sat by Pulse Oximetry (%) Constitutional: Yes: Well Nourished, Calm Eyes: Yes: Conjunctiva Clear HENT: Yes: Normocephalic Neck: Yes: Trachea Midline Cardiovascular: Yes: Regular Rate and Rhythm, S1, S2 Respiratory: Yes: CTA Bilaterally, Diminished. No: Rales, Rhonchi Gastrointestinal: Yes: Normal Bowel Sounds, Soft, Abdomen, Obese Edema: LLE: Trace, RLE: Trace Neurological: Yes: Alert, Oriented Labs: CBC, BMP 12/24/16 05:50 12/24/16 05:50 Problem List - Problems (1) Anemia Code(s): D64.9 - ANEMIA, UNSPECIFIED Qualifiers: Anemia type: due to chronic kidney disease (2) Chronic kidney disease Code(s): N18.9 - CHRONIC KIDNEY DISEASE, UNSPECIFIED Qualifiers: Chronic kidney disease stage: stage 3 (moderate) Qualified Code(s): N18.3 - Chronic kidney disease, stage 3 (moderate) (3) Diabetes mellitus Code(s): E11.9 - TYPE 2 DIABETES MELLITUS WITHOUT COMPLICATIONS Qualifiers: Diabetes mellitus predatory animal exterminator insulin use: without group home use Chronic kidney disease stage: stage 2 (mild) (4) HTN (hypertension) Code(s): I10 - ESSENTIAL (PRIMARY) HYPERTENSION Qualifiers: Hypertension type: essential hypertension Qualified Code(s): I10 - Essential (primary) hypertension (5) ITP (idiopathic thrombocytopenic purpura) Code(s): D69.3 - IMMUNE THROMBOCYTOPENIC PURPURA (6) Mantle cell lymphoma Code(s): C83.10 - MANTLE CELL LYMPHOMA, UNSPECIFIED SITE Qualifiers: Lymphoma site: unspecified region Qualified Code(s): C83.10 - Mantle cell lymphoma, unspecified site (7) Acute kidney failure Code(s): N17.9 - ACUTE KIDNEY FAILURE, UNSPECIFIED (8) Hyperkalemia Code(s): E87.5 - HYPERKALEMIA Assessment/Plan 66 year old patient with h/o mantle cell lymphoma , ITP, NIDDM, diverticulitis , anxiety, bladder dysfunction, HTN, and ITP , and a diaphrgamatic hernia post splenectomy complication. Admitted with Thrombocytosis. Acute Hemodynamic Kidney injury, with some degree of underlying Chronic Kidney Disease Even though she has h/o Hypertension, the patients BP in low normal ranges at this point. Hyperkalemia may be due in part to the Hyperglycemia and to the effects of ACEI. Doubt GI bleeding. PLAN: Will reduce the dose of Enalapril No immediate indication to give Kayexelate Will monitor the renal function. Thank you. Will follow with you. Barbie Sabillon MD
[2016-12-24] MEDS ORDERED: INSULIN (NOVOLOG) ASPART 100 UNITS/ML 10ML VIAL ONE (19:39)
[2016-12-24] MEDS: DEXAMETHASONE SOD PHOSPHATE 4 MG/1 ML VIAL IVPB SCH (21:13)
[2016-12-24] MEDS: IMMUNE GLOB,GAM CAPRYLATE(IGG) 40 GM IVPB SCH (22:05)
[2016-12-25] MEDS: morphine SULFATE IMMEDIATE RELEASE 30 MG TAB PO PRN ×2 (01:40→09:19)
[2016-12-25] MEDS: metFORMIN HCL 500 MG TABLET (FP) PO SCH (06:19)
[2016-12-25] MEDS: morphine SO4 SUSTAINED ACTING 30 MG TABLET.SA PO SCH ×3 (06:19→21:22)
[2016-12-25] MEDS: INSULIN SLIDING SCALE (NOVOLOG) 1 VIAL SQ SCH ×4 (06:20→21:23)
[2016-12-25] MEDS: glipiZIDE-XL 5 MG TAB.ER.24 PO SCH ×2 (07:31→18:25)
[2016-12-25 08:19] LABS: FERRITIN 69.792 ng/ml (6.9-282.5)
[2016-12-25 08:23] LABS: ALK PHOS 67 U/L (45-117); THYROID STIMULATING HORMONE 0.17 uIU/ml (0.358-3.74)
[2016-12-25 08:32] LABS: ALBUMIN 2.8 g/dl (3.4-5.0); ANION GAP 8 (8-16); BILIRUBIN,TOTAL 0.3 mg/dL (0.2-1.0); CALCIUM 8.5 mg/dL (8.5-10.1); CO2 26 mmol/L (21-32); CREATININE 1.4 mg/dL (0.55-1.02); GLUCOSE,RANDOM 189 mg/dL (74-106); LDH 122 U/L (84-246); SGOT/AST 12 U/L (15-37); SGPT/ALT 9 U/L (12-78); TOT PROT 8.8 g/dl (6.4-8.2)
[2016-12-25] MEDS: ACETAMINOPHEN 325 MG TABLET (FP) PO SCH (09:03)
[2016-12-25] MEDS: SERTRALINE HCL 25 MG TABLET (FP) PO SCH (09:04)
[2016-12-25] MEDS: ALLOPURINOL 100 MG TABLET (FP) PO SCH (09:04)
[2016-12-25] MEDS: PANTOPRAZOLE 40 MG TABLET (FP) PO SCH (09:13)
[2016-12-25] MEDS: DOCUSATE SODIUM 100 MG CAPSULE (FP) PO SCH ×2 (09:13→21:22)
[2016-12-25] MEDS: CALCIUM CARBONATE 650 MG TABLET PO SCH ×2 (09:18→21:22)
[2016-12-25] MEDS: LISINOPRIL 5 MG TABLET (FP) PO SCH (10:12)
[2016-12-25] MEDS: amLODIPine BESYLATE 5 MG TABLET (FP) PO SCH (10:12)
--- NOTE | 2016-12-25 10:48 | PN ---
Progress Note, Physician Chief Complaint: Ms Painting complains of severe pain in her back. No cp, sob, n/v. - Current Medication List Current Medications: Active Medications Acetaminophen (Tylenol -) 650 mg PO DAILY [facility] Last Admin: 12/25/16 09:03 Dose: 650 mg Albuterol Sulfate (Ventolin Hfa Inhaler -) 2 puff IH Q4H PRN PRN Reason: SHORTNESS OF BREATH Allopurinol (Zyloprim -) 150 mg PO DAILY [facility] Last Admin: 12/25/16 09:04 Dose: 150 mg Alprazolam (Xanax -) 0.5 mg PO Q8H PRN PRN Reason: ANXIETY Amlodipine Besylate (Norvasc -) 5 mg PO DAILY [facility] Last Admin: 12/25/16 10:12 Dose: Not Given Calcium Carbonate (Calcium Carbonate -) 650 mg PO BID [facility] Last Admin: 12/25/16 09:18 Dose: 650 mg Dexamethasone Sodium Phosphate (Decadron Injection -) 4 mg IVPB DAILY@1930 [facility] Stop: 12/27/16 19:31 Last Admin: 12/24/16 21:13 Dose: 4 mg Diphenhydramine HCl (Benadryl Injection -) 25 mg IVPB DAILY@1930 [facility] Stop: 12/27/16 19:31 Last Admin: 12/24/16 20:36 Dose: 25 mg Docusate Sodium (Colace -) 100 mg PO BID [facility] Last Admin: 12/25/16 09:13 Dose: 100 mg Glipizide (Glucotrol Xl -) [facility] Last Admin: 12/25/16 07:31 Dose: 5 mg Immune Globulin (Gamunex-C) 400 mls @ 100 mls/hr IVPB DAILY@20 [facility] Stop: 12/27/16 23:59 Last Admin: 12/24/16 22:05 Dose: 100 mls/hr Insulin Aspart (Novolog Vial Sliding Scale -) 1 vial SQ ACHS [facility] PRN Reason: Protocol Last Admin: 12/25/16 06:20 Dose: Not Given Lisinopril (Prinivil) 5 mg PO DAILY [facility] Last Admin: 12/25/16 10:12 Dose: Not Given Morphine Sulfate (Msir -) 15 mg PO QID PRN PRN Reason: breakthrough pain Last Admin: 12/25/16 09:19 Dose: 15 mg Morphine Sulfate (Ms Contin -) 60 mg PO TID [facility] Pantoprazole Sodium (Protonix -) 40 mg PO DAILY [facility] Last Admin: 12/25/16 09:13 Dose: 40 mg Sertraline HCl (Zoloft -) 25 mg PO DAILY [facility] Last Admin: 12/25/16 09:04 Dose: 25 mg - Objective Vital Signs: Vital Signs Temperature 98 F 12/25/16 10:15 Pulse Rate 67 12/25/16 10:15 Respiratory Rate 20 12/25/16 10:15 Blood Pressure 118/57 12/25/16 10:15 O2 Sat by Pulse Oximetry (%) Constitutional: Yes: No Distress, Calm, Obese Cardiovascular: Yes: Regular Rate and Rhythm. No: Gallop, Murmur, Rub Respiratory: Yes: Regular, CTA Bilaterally. No: Rales, Rhonchi, Wheezes Gastrointestinal: Yes: Normal Bowel Sounds, Soft. No: Distention, Tenderness Extremities: Yes: WNL Edema: No Labs: CBC, BMP 12/24/16 05:50 12/25/16 06:10 INR, PTT INR 0.95 (0.82-1.09) 12/23/16 04:45 Assessment/Plan (1) ITP (idiopathic thrombocytopenic purpura) Assessment/Plan: -hematology following -on IV steroids and IVIg -improving Code(s): D69.3 - IMMUNE THROMBOCYTOPENIC PURPURA (2) Diabetes mellitus Assessment/Plan: -continue home regimen -continue SSI, elevation secondary to steroids Code(s): E11.9 - TYPE 2 DIABETES MELLITUS WITHOUT COMPLICATIONS Qualifiers: Diabetes mellitus terminal worker insulin use: without terminal worker use Chronic kidney disease stage: stage 2 (mild) (3) Mantle cell lymphoma Assessment/Plan: -appears not to be active currently, not on active treatment Code(s): C83.10 - MANTLE CELL LYMPHOMA, UNSPECIFIED SITE Qualifiers: Lymphoma site: unspecified region Qualified Code(s): C83.10 - Mantle cell lymphoma, unspecified site (4) Renal insufficiency Assessment/Plan: -secondary to diabetes -stable Code(s): N28.9 - DISORDER OF KIDNEY AND URETER, UNSPECIFIED (5) Diaphragmatic hernia Assessment/Plan: -stable Code(s): K44.9 - DIAPHRAGMATIC HERNIA WITHOUT OBSTRUCTION OR GANGRENE Qualifiers: Obstruction and gangrene presence: without obstruction or gangrene Qualified Code(s): K44.9 - Diaphragmatic hernia without obstruction or gangrene (6) HTN (hypertension) Assessment/Plan: -continue norvasc -lisinopril decreased to 5mg daily Code(s): I10 - ESSENTIAL (PRIMARY) HYPERTENSION Qualifiers: Hypertension type: essential hypertension Qualified Code(s): I10 - Essential (primary) hypertension (7) Post-splenectomy Assessment/Plan: -has received pneumonia vaccines Code(s): 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 (8) Osteoarthritis Assessment/Plan: -increase MS Contin to 60mg today Code(s): M19.90 - UNSPECIFIED OSTEOARTHRITIS, UNSPECIFIED SITE
--- NOTE | 2016-12-25 10:54 | PN ---
Progress Note (short form) - Note Progress Note: Patient seen and examined. No overnight events. Patient feels tired and has a bit of headache,s he also could not sleep well overnight. she feels that the present pain management may need to be titrated. O/E: General: NAD HEENT: No purpura noted, normal appearing mucous membranes' Cardiac: regular rate and rythm Lung: CTAS b/L Abdomen: Obese, soft Extremities: Mild pitting edema Last Vital Signs Temp Pulse Resp BP Pulse Ox 98 F 67 20 118/57 12/25/16 10:15 12/25/16 10:15 12/25/16 10:15 12/25/16 10:15 Abnormal Lab Results 12/25/16 06:10 Sodium 132 L Potassium 5.2 H BUN 42 H D Creatinine 1.4 H Random Glucose 189 H AST 12 L ALT 9 L Total Protein 8.8 H Albumin 2.8 L TSH 0.17 L D Current Medications Generic Name Dose Route Start Last Admin Trade Name Freq PRN Reason Stop Dose Admin Acetaminophen 650 mg 12/23/16 22:00 12/25/16 09:03 Tylenol - PO 650 mg DAILY PRASHANT Administration Albuterol Sulfate 2 puff 12/23/16 16:24 Ventolin Hfa Inhaler - IH Q4H PRN SHORTNESS OF BREATH Allopurinol 150 mg 12/24/16 10:00 12/25/16 09:04 Zyloprim - PO 150 mg DAILY PRASHANT Administration Alprazolam 0.5 mg 12/23/16 16:24 Xanax - PO Q8H PRN ANXIETY Amlodipine Besylate 5 mg 12/24/16 10:00 12/25/16 10:12 Norvasc - PO Not Given DAILY PRASHANT Calcium Carbonate 650 mg 12/23/16 22:00 12/25/16 09:18 Calcium Carbonate - PO 650 mg BID PRASHANT Administration Dexamethasone Sodium Phosphate 4 mg 12/23/16 19:30 12/24/16 21:13 Decadron Injection - IVPB 12/27/16 19:31 4 mg DAILY@1929 PRASHANT Administration Diphenhydramine HCl 25 mg 12/23/16 19:30 12/24/16 20:36 Benadryl Injection - IVPB 12/27/16 19:31 25 mg DAILY@1929 PRASHANT Administration Docusate Sodium 100 mg 12/23/16 22:00 12/25/16 09:13 Colace - PO 100 mg BID PRASHANT Administration Glipizide 5 mg 12/23/16 16:45 12/25/16 07:31 Glucotrol Xl - PO 5 mg BIDAC PRASHANT Administration Immune Globulin 400 mls @ 100 mls/hr 12/23/16 20:00 12/24/16 22:05 Gamunex-C IVPB 12/27/16 23:59 100 mls/hr DAILY@20 PRASHANT Administration Insulin Aspart 1 vial 12/23/16 22:00 12/25/16 06:20 Novolog Vial Sliding Scale - SQ Not Given ACHS [facility] Protocol Lisinopril 5 mg 12/25/16 10:00 12/25/16 10:12 Prinivil PO Not Given DAILY PRASHANT Morphine Sulfate 15 mg 12/23/16 16:24 12/25/16 09:19 Msir - PO 15 mg QID PRN Administration breakthrough pain Morphine Sulfate 60 mg 12/25/16 14:00 Ms Contin - PO TID PRASHANT Pantoprazole Sodium 40 mg 12/24/16 10:00 12/25/16 09:13 Protonix - PO 40 mg DAILY PRASHANT Administration Sertraline HCl 25 mg 12/24/16 10:00 12/25/16 09:04 Zoloft - PO 25 mg DAILY PRASHANT Administration Assessment/Plan: ITP: -refractory at this point -no trigger identified -On IVIG with 400mg/kg/day x5 days with premeds of benadryl, dex, tylenol ( D1 on 12/23) -will continue to monitor CBC and chem -CBC from today reviewed with up-trend in the platelet count -??prolonged steroid taper upon discharge to be discussed Mantle cell Lymphoma: - s/p splenectomy -BMB in 04/2016 with <5% -Presently in remission Leukocytosis: -observed in post splenectomy pts and also pt is s/p receiving steroids CKD: -continue to monitor Cr -Pt with episodes of HyperK, daily chem, pt considering low K diet. -renal input appreciated. Anemia: -basic screening labs ordered, pending -TSH slightly low, will order FT4 Diabetes: -exacerbated with the use of steroids -on Insulin Arthritic pain: -Patient on narcotics, long acting and also immediate release will follow closely Problem List - Problems (1) ITP (idiopathic thrombocytopenic purpura) Code(s): D69.3 - IMMUNE THROMBOCYTOPENIC PURPURA (2) Mantle cell lymphoma Code(s): C83.10 - MANTLE CELL LYMPHOMA, UNSPECIFIED SITE Qualifiers: Lymphoma site: unspecified region Qualified Code(s): C83.10 - Mantle cell lymphoma, unspecified site (3) Renal insufficiency Code(s): N28.9 - DISORDER OF KIDNEY AND URETER, UNSPECIFIED (4) Diaphragmatic hernia Code(s): K44.9 - DIAPHRAGMATIC HERNIA WITHOUT OBSTRUCTION OR GANGRENE Qualifiers: Obstruction and gangrene presence: without obstruction or gangrene Qualified Code(s): K44.9 - Diaphragmatic hernia without obstruction or gangrene (5) Leukocytosis Code(s): D72.829 - ELEVATED WHITE BLOOD CELL COUNT, UNSPECIFIED Qualifiers: Leukocytosis type: unspecified Qualified Code(s): D72.829 - Elevated white blood cell count, unspecified (6) 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 (7) Anemia Code(s): D64.9 - ANEMIA, UNSPECIFIED Qualifiers: Anemia type: due to chronic kidney disease (8) Diabetes mellitus Code(s): E11.9 - TYPE 2 DIABETES MELLITUS WITHOUT COMPLICATIONS Qualifiers: Diabetes mellitus intermediate card tender insulin use: without longterm use Chronic kidney disease stage: stage 2 (mild) (9) Osteoarthritis Code(s): M19.90 - UNSPECIFIED OSTEOARTHRITIS, UNSPECIFIED SITE
[2016-12-25 13:25] LABS: BASOPHIL 1.1 % (0-2.0); EOSINOPHIL 0.1 % (0-4.5); MCH 26.2 pg (25.7-33.7); MCHC 32.2 g/dl (32.0-36.0); MEAN CELL VOLUME 81.3 fl (80-96); MEAN PLT VOLUME 9.9 fl (7.5-11.1); NEUTROPHILS 74.2 % (42.8-82.8); PLATELET COUNT 115 K/MM3 (134-434); RDW 18.6 % (11.6-15.6); WHITE BLOOD COUNT 8.7 K/mm3 (4.0-10.0)
[2016-12-25] MEDS ORDERED: PT OWN MED DRAWER 7, Y5N ONE (20:00)
[2016-12-25] MEDS ORDERED: ACETAMINOPHEN 325 MG TABLET (FP) PO ONE (20:00)
[2016-12-25] MEDS: DEXAMETHASONE SOD PHOSPHATE 4 MG/1 ML VIAL IVPB SCH (20:22)
[2016-12-25] MEDS: IMMUNE GLOB,GAM CAPRYLATE(IGG) 40 GM IVPB SCH (21:18)
[2016-12-25] MEDS: ALPRAZolam 0.25 MG TABLET PO PRN (22:56)
[2016-12-26] MEDS: morphine SULFATE IMMEDIATE RELEASE 30 MG TAB PO PRN ×2 (04:01→09:47)
[2016-12-26 06:06] LABS: SERUM IRON 40 ug/dL (27-139); TOTAL IRON BINDING CAPACITY 304 ug/dL (250-450); UIBC 264 ug/dL (118-369)
[2016-12-26] MEDS: morphine SO4 SUSTAINED ACTING 30 MG TABLET.SA PO SCH ×3 (06:12→21:23)
[2016-12-26] MEDS: glipiZIDE-XL 5 MG TAB.ER.24 PO SCH ×2 (06:15→16:44)
[2016-12-26] MEDS: INSULIN SLIDING SCALE (NOVOLOG) 1 VIAL SQ SCH ×4 (06:15→21:24)
[2016-12-26 07:21] LABS: BASOPHIL 0.6 % (0-2.0); EOSINOPHIL 0.1 % (0-4.5); MCH 26.5 pg (25.7-33.7); MCHC 32.3 g/dl (32.0-36.0); MEAN PLT VOLUME 9.3 fl (7.5-11.1); NEUTROPHILS 79.1 % (42.8-82.8); PLATELET COUNT 152 K/MM3 (134-434); RDW 18.3 % (11.6-15.6); WHITE BLOOD COUNT 6.3 K/mm3 (4.0-10.0)
[2016-12-26 07:46] LABS: ANION GAP 9 (8-16); CALCIUM 8.3 mg/dL (8.5-10.1); CO2 25 mmol/L (21-32); CREATININE 1.4 mg/dL (0.55-1.02); GLUCOSE,RANDOM 248 mg/dL (74-106); MAGNESIUM 2.1 mg/dL (1.8-2.4); PHOSPHOROUS 3.3 mg/dL (2.5-4.9)
--- NOTE | 2016-12-26 08:54 | PN ---
Progress Note (short form) - Note Progress Note: Patient seen and examined ROS-- complains of frontal headaches, no diplopia, epistaxis, dysphahgia, some SOB, dyspnea, no chest pains, some LUQ abdominal pains, without nausea, emesis no dysuria, hematuria, back pains, no calf pains. Last Vital Signs Temp Pulse Resp BP Pulse Ox 98.1 F 50 L 20 143/68 12/26/16 06:09 12/26/16 06:09 12/26/16 06:09 12/26/16 06:09 HEENT: DENEEN, EOM Intact Oropharynx: No thrush, No mucositis Neck: Supple Nodes: Without adenopathy Cor: RSR, No murmurs, No gallops Lungs: Clear to P&A Abd: Soft, Normal bowel sounds, No organomegaly, ventral hernia Ext:No significant edema Skin: No rashes, Integument intact CBC, BMP 12/26/16 05:40 12/26/16 05:40 Current Medications Generic Name Dose Route Start Last Admin Trade Name Freq PRN Reason Stop Dose Admin Acetaminophen 650 mg 12/23/16 22:00 12/25/16 09:03 Tylenol - PO 650 mg DAILY PRASHANT Administration Albuterol Sulfate 2 puff 12/23/16 16:24 Ventolin Hfa Inhaler - IH Q4H PRN SHORTNESS OF BREATH Allopurinol 150 mg 12/24/16 10:00 12/25/16 09:04 Zyloprim - PO 150 mg DAILY PRASHANT Administration Alprazolam 0.5 mg 12/23/16 16:24 12/25/16 22:56 Xanax - PO 0.5 mg Q8H PRN Administration ANXIETY Amlodipine Besylate 5 mg 12/24/16 10:00 12/25/16 10:12 Norvasc - PO Not Given DAILY PRASHANT Calcium Carbonate 650 mg 12/23/16 22:00 12/25/16 21:22 Calcium Carbonate - PO 650 mg BID PRASHANT Administration Dexamethasone Sodium Phosphate 4 mg 12/23/16 19:30 12/25/16 20:22 Decadron Injection - IVPB 12/27/16 19:31 4 mg DAILY@1930 PRASHANT Administration Diphenhydramine HCl 25 mg 12/23/16 19:30 12/25/16 19:44 Benadryl Injection - IVPB 12/27/16 19:31 25 mg DAILY@1930 PRASHANT Administration Docusate Sodium 100 mg 12/23/16 22:00 12/25/16 21:22 Colace - PO 100 mg BID PRASHANT Administration Glipizide 5 mg 12/23/16 16:45 12/26/16 06:15 Glucotrol Xl - PO 5 mg BIDAC PRASHANT Administration Immune Globulin 400 mls @ 100 mls/hr 12/23/16 20:00 12/25/16 21:18 Gamunex-C IVPB 12/27/16 23:59 100 mls/hr DAILY@20 PRASHANT Administration Insulin Aspart 1 vial 12/23/16 22:00 12/26/16 06:15 Novolog Vial Sliding Scale - SQ 2 unit ACHS PRASHANT Administration Protocol Lisinopril 5 mg 12/25/16 10:00 12/25/16 10:12 Prinivil PO Not Given DAILY PRASHANT Morphine Sulfate 15 mg 12/23/16 16:24 12/26/16 04:01 Msir - PO 15 mg QID PRN Administration breakthrough pain Morphine Sulfate 60 mg 12/25/16 14:00 12/26/16 06:12 Ms Contin - PO 60 mg TID PRASHANT Administration Pantoprazole Sodium 40 mg 12/24/16 10:00 12/25/16 09:13 Protonix - PO 40 mg DAILY PRASHANT Administration Sertraline HCl 25 mg 12/24/16 10:00 12/25/16 09:04 Zoloft - PO 25 mg DAILY PRASHANT Administration Problem List - Problems (1) ITP (idiopathic thrombocytopenic purpura) Assessment/Plan: Day 4 of gamma globulin and steroids. To complete 5 day course of therapy. Code(s): D69.3 - IMMUNE THROMBOCYTOPENIC PURPURA (2) Acute kidney failure Assessment/Plan: Kidney function being monitored on Gamma Globulin- Creatinine stable . Code(s): N17.9 - ACUTE KIDNEY FAILURE, UNSPECIFIED (3) Diabetes mellitus Assessment/Plan: Blood sugars elevated on steroids. Coverage with insulin . Code(s): E11.9 - TYPE 2 DIABETES MELLITUS WITHOUT COMPLICATIONS Qualifiers: Diabetes mellitus oil heaterman insulin use: without oil heaterman use Chronic kidney disease stage: stage 2 (mild) (4) Leukocytosis Assessment/Plan: On steroids . Code(s): D72.829 - ELEVATED WHITE BLOOD CELL COUNT, UNSPECIFIED Qualifiers: Leukocytosis type: unspecified Qualified Code(s): D72.829 - Elevated white blood cell count, unspecified (5) Mantle cell lymphoma Assessment/Plan: S/P splenectomy < 5% cells on Flow To continue to monitor. Code(s): C83.10 - MANTLE CELL LYMPHOMA, UNSPECIFIED SITE Qualifiers: Lymphoma site: unspecified region Qualified Code(s): C83.10 - Mantle cell lymphoma, unspecified site (6) Diaphragmatic hernia Assessment/Plan: Ultimately will need surgical intervention . Code(s): K44.9 - DIAPHRAGMATIC HERNIA WITHOUT OBSTRUCTION OR GANGRENE Qualifiers: Obstruction and gangrene presence: without obstruction or gangrene Qualified Code(s): K44.9 - Diaphragmatic hernia without obstruction or gangrene
[2016-12-26] MEDS ORDERED: PT OWN MED DRAWER 7, Y5N ONE ×3 (09:28→13:49)
[2016-12-26] MEDS: ALLOPURINOL 100 MG TABLET (FP) PO SCH (09:40)
[2016-12-26] MEDS: PANTOPRAZOLE 40 MG TABLET (FP) PO SCH (09:48)
[2016-12-26] MEDS: SERTRALINE HCL 25 MG TABLET (FP) PO SCH (09:48)
[2016-12-26] MEDS: amLODIPine BESYLATE 5 MG TABLET (FP) PO SCH (09:48)
[2016-12-26] MEDS: DOCUSATE SODIUM 100 MG CAPSULE (FP) PO SCH ×2 (09:48→21:21)
[2016-12-26] MEDS: LISINOPRIL 5 MG TABLET (FP) PO SCH (09:48)
[2016-12-26] MEDS: ACETAMINOPHEN 325 MG TABLET (FP) PO SCH (09:50)
[2016-12-26] MEDS: CALCIUM CARBONATE 650 MG TABLET PO SCH ×2 (09:50→21:20)
[2016-12-26] MEDS: ENOXAPARIN NA (PORCINE) 40 MG/0.4 ML DISP.SYRIN SQ SCH ×2 (10:41→13:54)
--- NOTE | 2016-12-26 14:24 | PN ---
Progress Note (short form) - Note Progress Note: Renal Follow up for ARLETTE on CKD Pt seen and examined at the bedside no acute complaints no dysuria, hematuria, flank pain good urine output Vital Signs Temperature 99.2 F 12/26/16 10:42 Pulse Rate 84 12/26/16 10:42 Respiratory Rate 20 12/26/16 10:42 Blood Pressure 107/71 12/26/16 10:42 O2 Sat by Pulse Oximetry (%) Intake & Output 12/23/16 12/24/16 12/25/16 12/26/16 23:59 23:59 23:59 23:59 Intake Total 100 1030 1630 700 Balance 100 1030 1630 700 Weight 234 lb 1.6 oz Gen: NAD, awake and alert CVS: RRR Lungs: CTA, no rales Abd: soft, Obese, NT/ND Ext: No edema CBC, BMP 12/26/16 05:40 12/26/16 05:40 Current Medications Acetaminophen (Tylenol -) 650 mg PO DAILY [facility] Last Admin: 12/26/16 09:50 Dose: Not Given Albuterol Sulfate (Ventolin Hfa Inhaler -) 2 puff IH Q4H PRN PRN Reason: SHORTNESS OF BREATH Allopurinol (Zyloprim -) 150 mg PO DAILY [facility] Last Admin: 12/26/16 09:40 Dose: 150 mg Alprazolam (Xanax -) 0.5 mg PO Q8H PRN PRN Reason: ANXIETY Last Admin: 12/25/16 22:56 Dose: 0.5 mg Amlodipine Besylate (Norvasc -) 5 mg PO DAILY [facility] Last Admin: 12/26/16 09:48 Dose: 5 mg Calcium Carbonate (Calcium Carbonate -) 650 mg PO BID [facility] Last Admin: 12/26/16 09:50 Dose: 650 mg Dexamethasone Sodium Phosphate (Decadron Injection -) 4 mg IVPB DAILY@0 [facility] Stop: 12/27/16 19:31 Last Admin: 12/25/16 20:22 Dose: 4 mg Diphenhydramine HCl (Benadryl Injection -) 25 mg IVPB DAILY@1930 [facility] Stop: 12/27/16 19:31 Last Admin: 12/25/16 19:44 Dose: 25 mg Docusate Sodium (Colace -) 100 mg PO BID [facility] Last Admin: 12/26/16 09:48 Dose: 100 mg Enoxaparin Sodium (Lovenox -) 40 mg SQ DAILY [facility] Last Admin: 12/26/16 13:54 Dose: 40 mg Glipizide (Glucotrol Xl -) 5 mg PO BIDAC [facility] Last Admin: 12/26/16 06:15 Dose: 5 mg Immune Globulin (Gamunex-C) 400 mls @ 100 mls/hr IVPB DAILY@20 PRASHANT Stop: 12/27/16 23:59 Last Admin: 12/25/16 21:18 Dose: 100 mls/hr Insulin Aspart (Novolog Vial Sliding Scale -) 1 vial SQ ACHS [facility] PRN Reason: Protocol Last Admin: 12/26/16 11:47 Dose: Not Given Lisinopril (Prinivil) 5 mg PO DAILY [facility] Last Admin: 12/26/16 09:48 Dose: 5 mg Morphine Sulfate (Msir -) 15 mg PO QID PRN PRN Reason: breakthrough pain Last Admin: 12/26/16 09:47 Dose: 15 mg Morphine Sulfate (Ms Contin -) 60 mg PO TID [facility] Last Admin: 12/26/16 13:35 Dose: 60 mg Pantoprazole Sodium (Protonix -) 40 mg PO DAILY [facility] Last Admin: 12/26/16 09:48 Dose: 40 mg Sertraline HCl (Zoloft -) 25 mg PO DAILY [facility] Last Admin: 12/26/16 09:48 Dose: 25 mg A/p 66 year old woman with PMhx of CKD, Nephrolithiasis, Hypertension, ITP, Mantle Cell Ca s/p Splenectomy presented with thrombocytopenia with Cr of 1.7 #ARLETTE on CKD Renal function improving toward near baseline on ACEi pt appears evolemic continue to trend BU/Cr while on IVIG #Hyperkalemia on Low K DIET on DERRICK but dose is reduced #Hyponatremia likely from mild volume expansion (salt and water retention from steroids) continue to trend Na avoid hypotonic IVF's #ITP/Thrombocytopenia continue IVIG and steroids as per Enrique Padron DO
--- NOTE | 2016-12-26 15:47 | PN ---
Progress Note, Physician Chief Complaint: Pain is much better controlled today with increase in MS Contin. No cp, sob, n/ v. - Current Medication List Current Medications: Active Medications Acetaminophen (Tylenol -) 650 mg PO DAILY [facility] Last Admin: 12/26/16 09:50 Dose: Not Given Albuterol Sulfate (Ventolin Hfa Inhaler -) 2 puff IH Q4H PRN PRN Reason: SHORTNESS OF BREATH Allopurinol (Zyloprim -) 150 mg PO DAILY [facility] Last Admin: 12/26/16 09:40 Dose: 150 mg Alprazolam (Xanax -) 0.5 mg PO Q8H PRN PRN Reason: ANXIETY Last Admin: 12/25/16 22:56 Dose: 0.5 mg Amlodipine Besylate (Norvasc -) 5 mg PO DAILY [facility] Last Admin: 12/26/16 09:48 Dose: 5 mg Calcium Carbonate (Calcium Carbonate -) 650 mg PO BID [facility] Last Admin: 12/26/16 09:50 Dose: 650 mg Dexamethasone Sodium Phosphate (Decadron Injection -) 4 mg IVPB DAILY@1930 [facility] Stop: 12/27/16 19:31 Last Admin: 12/25/16 20:22 Dose: 4 mg Diphenhydramine HCl (Benadryl Injection -) 25 mg IVPB DAILY@1930 [facility] Stop: 12/27/16 19:31 Last Admin: 12/25/16 19:44 Dose: 25 mg Docusate Sodium (Colace -) 100 mg PO BID [facility] Last Admin: 12/26/16 09:48 Dose: 100 mg Enoxaparin Sodium (Lovenox -) 40 mg SQ DAILY [facility] Last Admin: 12/26/16 13:54 Dose: 40 mg Glipizide (Glucotrol Xl -) 5 mg PO BIDAC [facility] Last Admin: 12/26/16 06:15 Dose: 5 mg Immune Globulin (Gamunex-C) 400 mls @ 100 mls/hr IVPB DAILY@20 [facility] Stop: 12/27/16 23:59 Last Admin: 12/25/16 21:18 Dose: 100 mls/hr Insulin Aspart (Novolog Vial Sliding Scale -) 1 vial SQ ACHS [facility] PRN Reason: Protocol Last Admin: 12/26/16 11:47 Dose: Not Given Lisinopril (Prinivil) 5 mg PO DAILY [facility] Last Admin: 12/26/16 09:48 Dose: 5 mg Morphine Sulfate (Msir -) 15 mg PO QID PRN PRN Reason: breakthrough pain Last Admin: 12/26/16 09:47 Dose: 15 mg Morphine Sulfate (Ms Contin -) 60 mg PO TID [facility] Last Admin: 12/26/16 13:35 Dose: 60 mg Pantoprazole Sodium (Protonix -) 40 mg PO DAILY [facility] Last Admin: 12/26/16 09:48 Dose: 40 mg Sertraline HCl (Zoloft -) 25 mg PO DAILY [facility] Last Admin: 12/26/16 09:48 Dose: 25 mg - Objective Vital Signs: Vital Signs Temperature 97.6 F 12/26/16 14:23 Pulse Rate 67 12/26/16 14:23 Respiratory Rate 20 12/26/16 14:23 Blood Pressure 118/62 12/26/16 14:23 O2 Sat by Pulse Oximetry (%) Constitutional: Yes: No Distress, Calm, Obese Cardiovascular: Yes: Regular Rate and Rhythm. No: Gallop, Murmur, Rub Respiratory: Yes: Regular, CTA Bilaterally. No: Rales, Rhonchi, Wheezes Gastrointestinal: Yes: Normal Bowel Sounds, Soft. No: Distention, Tenderness Extremities: Yes: WNL Edema: No Labs: CBC, BMP 12/26/16 05:40 12/26/16 05:40 INR, PTT INR 0.95 (0.82-1.09) 12/23/16 04:45 Assessment/Plan (1) ITP (idiopathic thrombocytopenic purpura) Assessment/Plan: -hematology following -on IV steroids and IVIg -continues to improve, now normal -reviewed hematology note, start lovenox for DVT PPx Code(s): D69.3 - IMMUNE THROMBOCYTOPENIC PURPURA (2) Diabetes mellitus Assessment/Plan: -continue home regimen -continue SSI, elevation secondary to steroids Code(s): E11.9 - TYPE 2 DIABETES MELLITUS WITHOUT COMPLICATIONS Qualifiers: Diabetes mellitus long term care phlebotomist insulin use: without long term care phlebotomist use Chronic kidney disease stage: stage 2 (mild) (3) Mantle cell lymphoma Assessment/Plan: -appears not to be active currently, not on active treatment Code(s): C83.10 - MANTLE CELL LYMPHOMA, UNSPECIFIED SITE Qualifiers: Lymphoma site: unspecified region Qualified Code(s): C83.10 - Mantle cell lymphoma, unspecified site (4) Renal insufficiency Assessment/Plan: -secondary to diabetes -stable Code(s): N28.9 - DISORDER OF KIDNEY AND URETER, UNSPECIFIED (5) Diaphragmatic hernia Assessment/Plan: -stable Code(s): K44.9 - DIAPHRAGMATIC HERNIA WITHOUT OBSTRUCTION OR GANGRENE Qualifiers: Obstruction and gangrene presence: without obstruction or gangrene Qualified Code(s): K44.9 - Diaphragmatic hernia without obstruction or gangrene (6) HTN (hypertension) Assessment/Plan: -continue norvasc -lisinopril decreased to 5mg daily this admission Code(s): I10 - ESSENTIAL (PRIMARY) HYPERTENSION Qualifiers: Hypertension type: essential hypertension Qualified Code(s): I10 - Essential (primary) hypertension (7) Post-splenectomy Assessment/Plan: -has received pneumonia vaccines Code(s): 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 (8) Osteoarthritis Assessment/Plan: -pain much improved -continue MS Contin at increased dose Code(s): M19.90 - UNSPECIFIED OSTEOARTHRITIS, UNSPECIFIED SITE
[2016-12-26] MEDS: DEXAMETHASONE SOD PHOSPHATE 4 MG/1 ML VIAL IVPB SCH (20:30)
[2016-12-26] MEDS: IMMUNE GLOB,GAM CAPRYLATE(IGG) 40 GM IVPB SCH (21:16)
[2016-12-27] MEDS: ALPRAZolam 0.25 MG TABLET PO PRN (02:08)
[2016-12-27] MEDS: morphine SO4 SUSTAINED ACTING 30 MG TABLET.SA PO SCH ×3 (05:38→22:02)
[2016-12-27] MEDS: glipiZIDE-XL 5 MG TAB.ER.24 PO SCH ×2 (06:42→16:53)
[2016-12-27] MEDS: INSULIN SLIDING SCALE (NOVOLOG) 1 VIAL SQ SCH ×4 (06:42→22:02)
[2016-12-27 07:52] LABS: BASOPHIL 0.4 % (0-2.0); MCHC 32.1 g/dl (32.0-36.0); MEAN PLT VOLUME 9.3 fl (7.5-11.1); NEUTROPHILS 85.7 % (42.8-82.8); PLATELET COUNT 208 K/MM3 (134-434); RDW 17.6 % (11.6-15.6); WHITE BLOOD COUNT 9.2 K/mm3 (4.0-10.0)
[2016-12-27 08:01] LABS: ALBUMIN 2.7 g/dl (3.4-5.0); ANION GAP 8 (8-16); CALCIUM 8.6 mg/dL (8.5-10.1); CO2 26 mmol/L (21-32); GLUCOSE,RANDOM 221 mg/dL (74-106); MAGNESIUM 2.2 mg/dL (1.8-2.4)
[2016-12-27 08:07] LABS: ALK PHOS 65 U/L (45-117); BILIRUBIN,TOTAL 0.5 mg/dL (0.2-1.0); CREATININE 1.5 mg/dL (0.55-1.02); SGOT/AST 12 U/L (15-37); SGPT/ALT 11 U/L (12-78); TOT PROT 9.7 g/dl (6.4-8.2)
[2016-12-27] MEDS: amLODIPine BESYLATE 5 MG TABLET (FP) PO SCH (09:37)
[2016-12-27] MEDS: ENOXAPARIN NA (PORCINE) 40 MG/0.4 ML DISP.SYRIN SQ SCH (09:37)
[2016-12-27] MEDS: SERTRALINE HCL 25 MG TABLET (FP) PO SCH (09:38)
[2016-12-27] MEDS: LISINOPRIL 5 MG TABLET (FP) PO SCH (09:38)
[2016-12-27] MEDS: ALLOPURINOL 100 MG TABLET (FP) PO SCH (09:38)
[2016-12-27] MEDS: DOCUSATE SODIUM 100 MG CAPSULE (FP) PO SCH ×2 (09:38→22:02)
[2016-12-27] MEDS: PANTOPRAZOLE 40 MG TABLET (FP) PO SCH (09:38)
[2016-12-27] MEDS: CALCIUM CARBONATE 650 MG TABLET PO SCH ×2 (09:39→22:02)
[2016-12-27] MEDS: ACETAMINOPHEN 325 MG TABLET (FP) PO SCH ×2 (09:42→19:38)
--- NOTE | 2016-12-27 12:32 | PN ---
Progress Note (short form) - Note Progress Note: Renal Follow up for ARLETTE on CKD Pt seen and examined at the bedside no acute complaints denies any sob, chest pain, abd pain, N/v/D drinking > 1L of water daily + other fluids Vital Signs Temperature 98.3 F 12/27/16 09:44 Pulse Rate 55 L 12/27/16 09:44 Respiratory Rate 20 12/27/16 09:44 Blood Pressure 119/60 12/27/16 09:44 O2 Sat by Pulse Oximetry (%) 98 12/27/16 09:00 Intake & Output 12/24/16 12/25/16 12/26/16 12/27/16 23:59 23:59 23:59 23:59 Intake Total 1030 1630 1780 650 Balance 1030 1630 1780 650 Gen: NAD, awake and alert CVS: RRR Lungs: CTA, no rales Abd: soft, Obese, NT/ND Ext: No edema CBC, BMP 12/27/16 06:00 12/27/16 06:00 Laboratory Tests 12/26/16 12/27/16 05:40 06:00 Calcium 8.3 L 8.6 Phosphorus 3.3 Magnesium 2.1 2.2 Albumin 2.7 L Current Medications Acetaminophen (Tylenol -) 650 mg PO DAILY [facility] Last Admin: 12/27/16 09:42 Dose: Not Given Albuterol Sulfate (Ventolin Hfa Inhaler -) 2 puff IH Q4H PRN PRN Reason: SHORTNESS OF BREATH Allopurinol (Zyloprim -) 150 mg PO DAILY [facility] Last Admin: 12/27/16 09:38 Dose: 150 mg Alprazolam (Xanax -) 0.5 mg PO Q8H PRN PRN Reason: ANXIETY Last Admin: 12/27/16 02:08 Dose: 0.5 mg Amlodipine Besylate (Norvasc -) 5 mg PO DAILY [facility] Last Admin: 12/27/16 09:37 Dose: 5 mg Calcium Carbonate (Calcium Carbonate -) 650 mg PO BID [facility] Last Admin: 12/27/16 09:39 Dose: 650 mg Dexamethasone Sodium Phosphate (Decadron Injection -) 4 mg IVPB DAILY@1930 [facility] Stop: 12/27/16 19:31 Last Admin: 12/26/16 20:30 Dose: 4 mg Diphenhydramine HCl (Benadryl Injection -) 25 mg IVPB DAILY@1930 [facility] Stop: 12/27/16 19:31 Last Admin: 12/26/16 19:49 Dose: 25 mg Docusate Sodium (Colace -) 100 mg PO BID [facility] Last Admin: 12/27/16 09:38 Dose: 100 mg Enoxaparin Sodium (Lovenox -) 40 mg SQ DAILY [facility] Last Admin: 12/27/16 09:37 Dose: 40 mg Glipizide (Glucotrol Xl -) 5 mg PO BIDAC [facility] Last Admin: 12/27/16 06:42 Dose: 5 mg Immune Globulin (Gamunex-C) 400 mls @ 100 mls/hr IVPB DAILY@20 [facility] Stop: 12/27/16 23:59 Last Admin: 12/26/16 21:16 Dose: 100 mls/hr Insulin Aspart (Novolog Vial Sliding Scale -) 1 vial SQ ACHS [facility] PRN Reason: Protocol Last Admin: 12/27/16 11:27 Dose: Not Given Lisinopril (Prinivil) 5 mg PO DAILY [facility] Last Admin: 12/27/16 09:38 Dose: 5 mg Morphine Sulfate (Msir -) 15 mg PO QID PRN PRN Reason: breakthrough pain Last Admin: 12/26/16 09:47 Dose: 15 mg Morphine Sulfate (Ms Contin -) 60 mg PO TID [facility] Last Admin: 12/27/16 05:38 Dose: 60 mg Pantoprazole Sodium (Protonix -) 40 mg PO DAILY [facility] Last Admin: 12/27/16 09:38 Dose: 40 mg Sertraline HCl (Zoloft -) 25 mg PO DAILY [facility] Last Admin: 12/27/16 09:38 Dose: 25 mg A/p 66 year old woman with PMhx of CKD, Nephrolithiasis, Hypertension, ITP, Mantle Cell Ca s/p Splenectomy presented with thrombocytopenia with Cr of 1.7 #CKD stage 3 Renal function remains stable IVIG can cause acute kidney injury through osmotic nephrosis Trend BUN/Cr daily #Hyperkalemia on Low K DIET on DERRICK but dose is reduced #Hyponatremia IVIG can cause hyponatremia in rare instances by limiting the kidneys abiltiy to handle free water advised pt to reduce free water intake to < 1L daily Trend Na expect improvement possibly of IVIG #ITP/Thrombocytopenia continue IVIG and steroids as per Heme Dash Padron DO
--- NOTE | 2016-12-27 13:12 | PN ---
Progress Note, Physician Chief Complaint: Ms Painting says she is doing well today. No cp, sob, n/v. - Current Medication List Current Medications: Active Medications Acetaminophen (Tylenol -) 650 mg PO DAILY [facility] Last Admin: 12/27/16 09:42 Dose: Not Given Albuterol Sulfate (Ventolin Hfa Inhaler -) 2 puff IH Q4H PRN PRN Reason: SHORTNESS OF BREATH Allopurinol (Zyloprim -) 150 mg PO DAILY [facility] Last Admin: 12/27/16 09:38 Dose: 150 mg Alprazolam (Xanax -) 0.5 mg PO Q8H PRN PRN Reason: ANXIETY Last Admin: 12/27/16 02:08 Dose: 0.5 mg Amlodipine Besylate (Norvasc -) 5 mg PO DAILY [facility] Last Admin: 12/27/16 09:37 Dose: 5 mg Calcium Carbonate (Calcium Carbonate -) 650 mg PO BID [facility] Last Admin: 12/27/16 09:39 Dose: 650 mg Dexamethasone Sodium Phosphate (Decadron Injection -) 4 mg IVPB DAILY@1930 [facility] Stop: 12/27/16 19:31 Last Admin: 12/26/16 20:30 Dose: 4 mg Diphenhydramine HCl (Benadryl Injection -) 25 mg IVPB DAILY@1930 [facility] Stop: 12/27/16 19:31 Last Admin: 12/26/16 19:49 Dose: 25 mg Docusate Sodium (Colace -) 100 mg PO BID [facility] Last Admin: 12/27/16 09:38 Dose: 100 mg Enoxaparin Sodium (Lovenox -) 40 mg SQ DAILY [facility] Last Admin: 12/27/16 09:37 Dose: 40 mg Glipizide (Glucotrol Xl -) 5 mg PO BIDAC [facility] Last Admin: 12/27/16 06:42 Dose: 5 mg Immune Globulin (Gamunex-C) 400 mls @ 100 mls/hr IVPB DAILY@20 [facility] Stop: 12/27/16 23:59 Last Admin: 12/26/16 21:16 Dose: 100 mls/hr Insulin Aspart (Novolog Vial Sliding Scale -) 1 vial SQ ACHS [facility] PRN Reason: Protocol Last Admin: 12/27/16 11:27 Dose: Not Given Lisinopril (Prinivil) 5 mg PO DAILY [facility] Last Admin: 12/27/16 09:38 Dose: 5 mg Morphine Sulfate (Msir -) 15 mg PO QID PRN PRN Reason: breakthrough pain Last Admin: 12/26/16 09:47 Dose: 15 mg Morphine Sulfate (Ms Contin -) 60 mg PO TID [facility] Last Admin: 12/27/16 05:38 Dose: 60 mg Pantoprazole Sodium (Protonix -) 40 mg PO DAILY [facility] Last Admin: 12/27/16 09:38 Dose: 40 mg Sertraline HCl (Zoloft -) 25 mg PO DAILY [facility] Last Admin: 12/27/16 09:38 Dose: 25 mg - Objective Vital Signs: Vital Signs Temperature 98.3 F 12/27/16 09:44 Pulse Rate 55 L 12/27/16 09:44 Respiratory Rate 20 12/27/16 09:44 Blood Pressure 119/60 12/27/16 09:44 O2 Sat by Pulse Oximetry (%) 98 12/27/16 09:00 Constitutional: Yes: Well Nourished, No Distress, Calm Cardiovascular: Yes: Regular Rate and Rhythm. No: Gallop, Murmur, Rub Respiratory: Yes: Regular, CTA Bilaterally. No: Rales, Rhonchi, Wheezes Gastrointestinal: Yes: Normal Bowel Sounds, Soft. No: Distention, Tenderness Extremities: Yes: WNL Edema: No Labs: CBC, BMP 12/27/16 06:00 12/27/16 06:00 INR, PTT INR 0.95 (0.82-1.09) 12/23/16 04:45 Assessment/Plan (1) ITP (idiopathic thrombocytopenic purpura) Assessment/Plan: -hematology following -on IV steroids and IVIg -continues to improve, now normal -on lovenox for DVT PPx -finished IVIg today, plan for discharge tomorrow Code(s): D69.3 - IMMUNE THROMBOCYTOPENIC PURPURA (2) Diabetes mellitus Assessment/Plan: -continue home regimen -continue SSI, elevation secondary to steroids Code(s): E11.9 - TYPE 2 DIABETES MELLITUS WITHOUT COMPLICATIONS Qualifiers: Diabetes mellitus chcf insulin use: without chcf use Chronic kidney disease stage: stage 2 (mild) (3) Mantle cell lymphoma Assessment/Plan: -appears not to be active currently, not on active treatment Code(s): C83.10 - MANTLE CELL LYMPHOMA, UNSPECIFIED SITE Qualifiers: Lymphoma site: unspecified region Qualified Code(s): C83.10 - Mantle cell lymphoma, unspecified site (4) Renal insufficiency Assessment/Plan: -secondary to diabetes -stable Code(s): N28.9 - DISORDER OF KIDNEY AND URETER, UNSPECIFIED (5) Diaphragmatic hernia Assessment/Plan: -stable Code(s): K44.9 - DIAPHRAGMATIC HERNIA WITHOUT OBSTRUCTION OR GANGRENE Qualifiers: Obstruction and gangrene presence: without obstruction or gangrene Qualified Code(s): K44.9 - Diaphragmatic hernia without obstruction or gangrene (6) HTN (hypertension) Assessment/Plan: -continue norvasc -lisinopril decreased to 5mg daily this admission Code(s): I10 - ESSENTIAL (PRIMARY) HYPERTENSION Qualifiers: Hypertension type: essential hypertension Qualified Code(s): I10 - Essential (primary) hypertension (7) Post-splenectomy Assessment/Plan: -has received pneumonia vaccines Code(s): 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 (8) Osteoarthritis Assessment/Plan: -pain much improved -continue MS Contin at increased dose Code(s): M19.90 - UNSPECIFIED OSTEOARTHRITIS, UNSPECIFIED SITE
[2016-12-27] MEDS: DEXAMETHASONE SOD PHOSPHATE 4 MG/1 ML VIAL IVPB SCH (20:01)
[2016-12-27] MEDS: IMMUNE GLOB,GAM CAPRYLATE(IGG) 40 GM IVPB SCH (20:39)
--- NOTE | 2016-12-27 21:38 | PN ---
Progress Note (short form) - Note Progress Note: Patient seen and examined Completed 5 day course of Gamma Globulin with steroids Good response Last Vital Signs Temp Pulse Resp BP Pulse Ox 98.6 F 64 18 126/59 98 12/27/16 20:51 12/27/16 20:51 12/27/16 20:51 12/27/16 20:51 12/27/16 09:00 HEENT: DENEEN, EOM Intact Oropharynx: No thrush, No mucositis Cor: RSR, No murmurs, No gallops Lungs: Clear to P&A Abd: Soft, Normal bowel sounds, No organomegaly Ext:No significant edema Skin: No rashes, Integument intact CBC, BMP 12/27/16 06:00 12/27/16 06:00 Current Medications Generic Name Dose Route Start Last Admin Trade Name Freq PRN Reason Stop Dose Admin Acetaminophen 650 mg 12/23/16 22:00 12/27/16 19:38 Tylenol - PO 650 mg DAILY [facility] Administration Albuterol Sulfate 2 puff 12/23/16 16:24 Ventolin Hfa Inhaler - IH Q4H PRN SHORTNESS OF BREATH Allopurinol 150 mg 12/24/16 10:00 12/27/16 09:38 Zyloprim - PO 150 mg DAILY [facility] Administration Alprazolam 0.5 mg 12/23/16 16:24 12/27/16 02:08 Xanax - PO 0.5 mg Q8H PRN Administration ANXIETY Amlodipine Besylate 5 mg 12/24/16 10:00 12/27/16 09:37 Norvasc - PO 5 mg DAILY [facility] Administration Calcium Carbonate 650 mg 12/23/16 22:00 12/27/16 09:39 Calcium Carbonate - PO 650 mg BID [facility] Administration Docusate Sodium 100 mg 12/23/16 22:00 12/27/16 09:38 Colace - PO 100 mg BID PR[facility] Administration Enoxaparin Sodium 40 mg 12/26/16 10:00 12/27/16 09:37 Lovenox - SQ 40 mg DAILY [facility] Administration Glipizide 5 mg 12/23/16 16:45 12/27/16 16:53 Glucotrol Xl - PO 5 mg BIDAC PR[facility] Administration Immune Globulin 400 mls @ 100 mls/hr 12/23/16 20:00 12/27/16 20:39 Gamunex-C IVPB 12/27/16 23:59 100 mls/hr DAILY@20 PR[facility] Administration Insulin Aspart 1 vial 12/23/16 22:00 12/27/16 16:52 Novolog Vial Sliding Scale - SQ Not Given ACHS [facility] Protocol Lisinopril 5 mg 12/25/16 10:00 12/27/16 09:38 Prinivil PO 5 mg DAILY [facility] Administration Morphine Sulfate 15 mg 12/23/16 16:24 12/26/16 09:47 Msir - PO 15 mg QID PRN Administration breakthrough pain Morphine Sulfate 60 mg 12/25/16 14:00 12/27/16 14:38 Ms Contin - PO 60 mg TID [facility] Administration Pantoprazole Sodium 40 mg 12/24/16 10:00 12/27/16 09:38 Protonix - PO 40 mg DAILY [facility] Administration Sertraline HCl 25 mg 12/24/16 10:00 12/27/16 09:38 Zoloft - PO 25 mg DAILY [facility] Administration Impression: ITP- good response to gamma globulin and steroids Mantle cell lymphoma- less than 5% of cells in periphery on Flow -- s/p splenectomy DM - increase in levels on glucose Suggest: Discharge on prednisone 60 day with out patient taper Problem List - Problems (1) ITP (idiopathic thrombocytopenic purpura) Code(s): D69.3 - IMMUNE THROMBOCYTOPENIC PURPURA (2) Acute kidney failure Code(s): N17.9 - ACUTE KIDNEY FAILURE, UNSPECIFIED (3) Diabetes mellitus Code(s): E11.9 - TYPE 2 DIABETES MELLITUS WITHOUT COMPLICATIONS (4) Leukocytosis Code(s): D72.829 - ELEVATED WHITE BLOOD CELL COUNT, UNSPECIFIED Qualifiers: Qualified Code(s): D72.829 - Elevated white blood cell count, unspecified (5) Mantle cell lymphoma Code(s): C83.10 - MANTLE CELL LYMPHOMA, UNSPECIFIED SITE Qualifiers: Qualified Code(s): C83.10 - Mantle cell lymphoma, unspecified site (6) Diaphragmatic hernia Code(s): K44.9 - DIAPHRAGMATIC HERNIA WITHOUT OBSTRUCTION OR GANGRENE Qualifiers: Qualified Code(s): K44.9 - Diaphragmatic hernia without obstruction or gangrene
[2016-12-27] MEDS ORDERED: PT OWN MED DRAWER 7, Y5N ONE (22:01)
[2016-12-28] MEDS: ALPRAZolam 0.25 MG TABLET PO PRN (01:05)
[2016-12-28] MEDS: INSULIN SLIDING SCALE (NOVOLOG) 1 VIAL SQ SCH (06:47)
[2016-12-28] MEDS: morphine SO4 SUSTAINED ACTING 30 MG TABLET.SA PO SCH (06:47)
[2016-12-28] MEDS: glipiZIDE-XL 5 MG TAB.ER.24 PO SCH (06:47)
[2016-12-28] MEDS ORDERED: INSULIN (NOVOLOG) ASPART 100 UNITS/ML 10ML VIAL ONE (06:53)
[2016-12-28 07:28] LABS: BASOPHIL 0.3 % (0-2.0); MCH 26.4 pg (25.7-33.7); MCHC 32.4 g/dl (32.0-36.0); MEAN CELL VOLUME 81.4 fl (80-96); MEAN PLT VOLUME 9.3 fl (7.5-11.1); NEUTROPHILS 85.8 % (42.8-82.8); PLATELET COUNT 266 K/MM3 (134-434); RDW 17.4 % (11.6-15.6); WHITE BLOOD COUNT 8.2 K/mm3 (4.0-10.0)
[2016-12-28 07:50] LABS: ANION GAP 7 (8-16); CALCIUM 8.3 mg/dL (8.5-10.1); CO2 26 mmol/L (21-32); CREATININE 1.4 mg/dL (0.55-1.02); GLUCOSE,RANDOM 182 mg/dL (74-106); MAGNESIUM 2.2 mg/dL (1.8-2.4); PHOSPHOROUS 3.9 mg/dL (2.5-4.9)
[2016-12-28 08:23] VITALS: BP 149/52; PULSE 55; TEMP 98.8
[2016-12-28] MEDS ORDERED: PT OWN MED DRAWER 7, Y5N ONE (09:29)
[2016-12-28] MEDS: DOCUSATE SODIUM 100 MG CAPSULE (FP) PO SCH (09:40)
[2016-12-28] MEDS: ALLOPURINOL 100 MG TABLET (FP) PO SCH (09:40)
[2016-12-28] MEDS: PANTOPRAZOLE 40 MG TABLET (FP) PO SCH (09:41)
[2016-12-28] MEDS: LISINOPRIL 5 MG TABLET (FP) PO SCH (09:42)
[2016-12-28] MEDS: amLODIPine BESYLATE 5 MG TABLET (FP) PO SCH (09:42)
[2016-12-28] MEDS: CALCIUM CARBONATE 650 MG TABLET PO SCH (09:43)
[2016-12-28] MEDS: SERTRALINE HCL 25 MG TABLET (FP) PO SCH (09:43)
[2016-12-28] MEDS: ACETAMINOPHEN 325 MG TABLET (FP) PO SCH (09:44)
[2016-12-28] MEDS: ENOXAPARIN NA (PORCINE) 40 MG/0.4 ML DISP.SYRIN SQ SCH (09:44)
--- NOTE | 2016-12-28 10:28 | PN ---
Progress Note (short form) - Note Progress Note: Patient seen and examined. No overnight events. She feels well. O/E: General: NAD HEENT: No purpura noted, normal appearing mucous membranes' Cardiac: regular rate and rythm Lung: CTAS b/L Abdomen: Obese, soft Extremities: Mild pitting edema Last Vital Signs Temp Pulse Resp BP Pulse Ox 98.8 F 55 L 16 149/52 97 12/28/16 08:23 12/28/16 08:23 12/28/16 08:23 12/28/16 08:23 12/27/16 21:00 Current Medications Generic Name Dose Route Start Last Admin Trade Name Freq PRN Reason Stop Dose Admin Acetaminophen 650 mg 12/23/16 22:00 12/28/16 09:44 Tylenol - PO Not Given DAILY [facility] Albuterol Sulfate 2 puff 12/23/16 16:24 Ventolin Hfa Inhaler - IH Q4H PRN SHORTNESS OF BREATH Allopurinol 150 mg 12/24/16 10:00 12/28/16 09:40 Zyloprim - PO 150 mg DAILY [facility] Administration Alprazolam 0.5 mg 12/23/16 16:24 12/28/16 01:05 Xanax - PO 0.5 mg Q8H PRN Administration ANXIETY Amlodipine Besylate 5 mg 12/24/16 10:00 12/28/16 09:42 Norvasc - PO 5 mg DAILY [facility] Administration Calcium Carbonate 650 mg 12/23/16 22:00 12/28/16 09:43 Calcium Carbonate - PO 650 mg BID [facility] Administration Docusate Sodium 100 mg 12/23/16 22:00 12/28/16 09:40 Colace - PO 100 mg BID [facility] Administration Enoxaparin Sodium 40 mg 12/26/16 10:00 12/28/16 09:44 Lovenox - SQ Not Given DAILY [facility] Glipizide 5 mg 12/23/16 16:45 12/28/16 06:47 Glucotrol Xl - PO 5 mg BIDAC [facility] Administration Insulin Aspart 1 vial 12/23/16 22:00 12/28/16 06:47 Novolog Vial Sliding Scale - SQ Not Given [facility] Protocol Lisinopril 5 mg 12/25/16 10:00 12/28/16 09:42 Prinivil PO 5 mg DAILY [facility] Administration Morphine Sulfate 15 mg 12/23/16 16:24 12/26/16 09:47 Msir - PO 15 mg QID PRN Administration breakthrough pain Morphine Sulfate 60 mg 12/25/16 14:00 12/28/16 06:47 Ms Contin - PO 60 mg TID [facility] Administration Pantoprazole Sodium 40 mg 12/24/16 10:00 12/28/16 09:41 Protonix - PO 40 mg DAILY [facility] Administration Sertraline HCl 25 mg 12/24/16 10:00 12/28/16 09:43 Zoloft - PO 25 mg DAILY [facility] Administration CBC, BMP 12/28/16 05:35 12/28/16 05:35 Assessment/Plan: ITP: -s/p IVIG x5 days. -To be discharged on 60mg prednisone. -to continue until next monday, CBC on , pt will call with results on Monday. -pt will call the office for follow-up -advised to monitor her sugars closely and she is already on a PPI. Mantle cell Lymphoma: - s/p splenectomy -BMB in 04/2016 with <5% -Presently in remission CKD: -continue to monitor Cr Diabetes: -dvised to monitor her sugars closely due to increased steroids now. -on Insulin Follow-up in the office. Problem List - Problems (1) ITP (idiopathic thrombocytopenic purpura) Code(s): D69.3 - IMMUNE THROMBOCYTOPENIC PURPURA (2) Mantle cell lymphoma Code(s): C83.10 - MANTLE CELL LYMPHOMA, UNSPECIFIED SITE Qualifiers: Qualified Code(s): C83.10 - Mantle cell lymphoma, unspecified site (3) Renal insufficiency Code(s): N28.9 - DISORDER OF KIDNEY AND URETER, UNSPECIFIED (4) Diaphragmatic hernia Code(s): K44.9 - DIAPHRAGMATIC HERNIA WITHOUT OBSTRUCTION OR GANGRENE Qualifiers: Qualified Code(s): K44.9 - Diaphragmatic hernia without obstruction or gangrene (5) Leukocytosis Code(s): D72.829 - ELEVATED WHITE BLOOD CELL COUNT, UNSPECIFIED Qualifiers: Qualified Code(s): D72.829 - Elevated white blood cell count, unspecified (6) 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 (7) Anemia Code(s): D64.9 - ANEMIA, UNSPECIFIED (8) Diabetes mellitus Code(s): E11.9 - TYPE 2 DIABETES MELLITUS WITHOUT COMPLICATIONS (9) Osteoarthritis Code(s): M19.90 - UNSPECIFIED OSTEOARTHRITIS, UNSPECIFIED SITE
[2016-12-28] MEDS ORDERED: predniSONE 20 MG TABLET (UD) PO ONE (10:55)
--- NOTE | 2016-12-28 10:57 | DS ---
Physical Examination Vital Signs: Vital Signs Temperature 98.8 F 12/28/16 08:23 Pulse Rate 55 L 12/28/16 08:23 Respiratory Rate 16 12/28/16 08:23 Blood Pressure 149/52 12/28/16 08:23 O2 Sat by Pulse Oximetry (%) 97 12/27/16 21:00 Labs: CBC, BMP 12/28/16 05:35 12/28/16 05:35 Discharge Summary Reason For Visit: IMMUNE THROMBOCYTOPENIC PURPURA (ITP) Current Active Problems Acute kidney failure (Acute) Anemia (Acute) Hyperkalemia (Acute) Osteoarthritis (Acute) Renal insufficiency (Acute) Condition: Good - Instructions Diet, Activity, Other Instructions: resume previous diet and activity Referrals: Subhash Mcfarlane MD [Staff Physician] - Rafael Ty MD [Staff Physician] - Disposition: HOME - Home Medications Comprehensive Discharge Medication List: Ambulatory Orders Sertraline HCl [Zoloft -] 25 mg PO DAILY 08/28/14 Alprazolam [Xanax] 0.5 mg PO Q8H PRN #0 tablet 09/10/14 Pantoprazole Sodium [Protonix -] 40 mg PO DAILY #0 tablet.ec 09/10/14 Glipizide [Glucotrol Xl] 5 mg PO BID 11/12/15 Morphine Sulfate 15 mg PO QID PRN 03/31/16 Allopurinol [Zyloprim -] 150 mg PO DAILY #60 tablet 04/07/16 Albuterol Sulfate Inhaler - [Ventolin HFA Inhaler -] 1 - 2 inh PO Q4H 08/09/16 Calcium Carbonate 648 mg PO BID 08/09/16 Acetaminophen [Tylenol .Regular Strength -] 650 mg PO DAILY tablet 10/29/16 Amlodipine Besylate [Norvasc -] 5 mg PO DAILY #0 tablet 10/29/16 Docusate Sodium [Colace -] 100 mg PO BID #60 tab-cap 10/29/16 Lisinopril [Prinivil] 5 mg PO DAILY #30 tablet 12/28/16 Morphine *Sr* [MS Contin -] 60 mg PO TID #120 tab.sa MDD 180mg 12/28/16 Prednisone [Deltasone] 20 mg PO DAILY #90 tablet 12/28/16
[2016-12-29 00:10] LABS: A/G RATIO 0.5 (0.7-1.7); ALBUMIN 2.7 g/dL (2.9-4.4); ALPHA-1-GLOBULIN 0.3 g/dL (0.0-0.4); BETA GLOBULIN 1.1 g/dL (0.7-1.3); GAMMA GLOBULIN 3.3 g/dL (0.4-1.8); GLOBULIN, TOTAL 5.6 g/dL (2.2-3.9); M-SPIKE Not Observed g/dL (Not Observed); TOTAL PROTEIN 8.3 g/dL (6.0-8.5)
== END 2016-12-28 12:13 | disposition home or self-care (01) | DRG 813 ==
LOC: J7W 15:57
PROVIDERS: ADMIT Specialist; ATTEND Specialist
DX: D69.3 Immune thrombocytopenic purpura (principal); C83.10 Mantle cell lymphoma, unspecified site; N17.9 Acute kidney failure, unspecified; E87.1 Hypo-osmolality and hyponatremia; K44.9 Diaphragmatic hernia without obstruction or gangrene; M16.11 Unilateral primary osteoarthritis, right hip; D69.6 Thrombocytopenia, unspecified; M54.5 Low back pain; F41.8 Other specified anxiety disorders; E11.9 Type 2 diabetes mellitus without complications; D72.829 Elevated white blood cell count, unspecified; D63.8 Anemia in other chronic diseases classified elsewhere; E87.5 Hyperkalemia; I12.9 Hypertensive chronic kidney disease with stage 1 through stage 4 chronic kidney disease, or unspecified chronic kidney disease; N18.3 Chronic kidney disease, stage 3 (moderate); E11.22 Type 2 diabetes mellitus with diabetic chronic kidney disease; N20.0 Calculus of kidney; Z87.891 Personal history of nicotine dependence; Z79.52 Long term (current) use of systemic steroids; Z90.81 Acquired absence of spleen
CPT/HCPCS: 36415; 80048; 80053; 82607; 82728; 82746; 82784; 83540; 83550; 83615; 83735; 84100; 84155; 84165; 84439; 84443; 85025; 85027; 85044; 85610; 85730; 86334; 86850; 86900; 86901; J1459

== ENCOUNTER 2017-03-17 22:39 | Inpatient (IN) | payer OTHER, MEDICARE ==
--- NOTE | 2017-03-17 23:30 | PDOC ---
History of Present Illness <Willam Carey - Last Filed: 03/18/17 03:47> - General History Source: Patient Exam Limitations: No Limitations - History of Present Illness Initial Comments: 03/18/17 00:27 The patient is a 66-year-old female, with a significant past medical history of HTN, diabetes, Non-hodgkins lymphoma (not on any active lymphoma treatment), diaphragmatic hernia, Diverticulitis, Renal Calculi, UTI, Thrombocytopenia (s/p splenectomy), Anxiety, and Depression, who presents to the with thrombocytopenia. The pt had blood work drawn today at Dr. Meier office today. Pt received a call later on in the day and was advised that her platelet count was low at 30. She was told to report to the ED for further evaluation. Pt gets blood work done every week. The pts platelet count last week was noted to be 110. She reports that when she experiences thrombocytopenia she usually receives prednisone and a blood transfusion. Pt last had an episode of thrombocytopenia 3 months ago; pt last took prednisone one month ago. On exam, pt states that she thought she was experiencing purpura in her lower extremities since they appeared to be slightly red, but she denies noting any bleeding. The patient denies any fever, chills, nausea, vomiting, diarrhea, or abdominal pain. She denies any shortness of breath. PCP: Dr. Mcfarlane Nutrition Intern: Dr. Ty Surgical History: Laminectomy (cervical laminectomy x2 (2001)), Splenectomy, Thoracotomy <Neelam Miller - Last Filed: 03/18/17 06:41> - General Chief Complaint: Blood Transfusion Stated Complaint: PCP SENT Time Seen by Provider: 03/17/17 23:29 Past History - Past Medical History Anemia: Yes (ITP) Asthma: No Cancer: Yes (lymphoma) Cardiac Disorders: No CVA: No COPD: No CHF: No Dementia: No Diabetes: Yes (niddm) GI Disorders: Yes (DIVERTICULITIS) Disorders: Yes (bladder dysfunction) HTN: No Hypercholesterolemia: No Liver Disease: No Psychiatric Problems: Yes (Anxiety) Seizures: No Thyroid Disease: No Other medical history: Kidney stones - Surgical History Abdominal Surgery: Yes (SPLEENECTOMY) Appendectomy: No Cardiac Surgery: No Cholecystectomy: No Lung Surgery: No Neurologic Surgery: Yes (cervical laminectomy x 2) Orthopedic Surgery: Yes (Anterior and posterior cervical laminectomy with fusion ) - Suicide/Smoking/Psychosocial Hx Smoking Status: No Smoking History: Never smoked Have you smoked in the past 12 months: No Number of Cigarettes Smoked Daily: 0 If you are a former smoker, when did you quit?: 2001 Information on smoking cessation initiated: No Hx Alcohol Use: No Drug/Substance Use Hx: No Substance Use Type: None Hx Substance Use Treatment: No <Willam Carey - Last Filed: 03/18/17 03:47> <Neelam Miller - Last Filed: 03/18/17 06:41> - Past Medical History Allergies/Adverse Reactions: Allergies Allergy/AdvReac Type Severity Reaction Status Date / Time ciprofloxacin HCl Allergy Intermediate Itching Verified 03/17/17 22:49 [From Cipro] levofloxacin [From Levaquin] Allergy Intermediate Rash Verified 03/17/17 22:49 atorvastatin calcium Allergy Mild muscle Verified 03/17/17 22:49 [From Lipitor] aches Home Medications: Ambulatory Orders Sertraline HCl [Zoloft -] 25 mg PO DAILY 08/28/14 Alprazolam [Xanax] 0.5 mg PO Q8H PRN #0 tablet 09/10/14 Pantoprazole Sodium [Protonix -] 40 mg PO DAILY #0 tablet.ec 09/10/14 Glipizide [Glucotrol Xl] 10 mg PO Q6H PRN 11/12/15 Morphine Sulfate 15 mg PO QID PRN 03/31/16 Allopurinol [Zyloprim -] 150 mg PO DAILY #60 tablet 04/07/16 Albuterol Sulfate Inhaler - [Ventolin HFA Inhaler -] 1 - 2 inh PO Q4H 08/09/16 Calcium Carbonate 648 mg PO BID 08/09/16 Acetaminophen [Tylenol .Regular Strength -] 650 mg PO DAILY tablet 10/29/16 Amlodipine Besylate [Norvasc -] 5 mg PO DAILY #0 tablet 10/29/16 Docusate Sodium [Colace -] 100 mg PO BID #60 tab-cap 10/29/16 Morphine *Sr* [MS Contin -] 60 mg PO TID #120 tab.sa MDD 180mg 12/28/16 Sitagliptin Phosphate [Januvia] 50 mg PO DAILY 03/18/17 Review of Systems - Review of Systems Able to Perform ROS?: Yes Comments:: 03/18/17 00:30 GENERAL/CONSTITUTIONAL: No fever or chills. No weakness. HEAD, EYES, EARS, NOSE AND THROAT: No change in vision. No ear pain or discharge. No sore throat. CARDIOVASCULAR: No chest pain or shortness of breath. RESPIRATORY: No cough, wheezing, or hemoptysis. GASTROINTESTINAL: No nausea, vomiting, diarrhea or constipation. GENITOURINARY: No dysuria, frequency, or change in urination. MUSCULOSKELETAL: No joint or muscle swelling or pain. No neck or back pain. SKIN: No rash NEUROLOGIC: No headache, vertigo, loss of consciousness, or change in strength/ sensation. ENDOCRINE: No increased thirst. No abnormal weight change. HEMATOLOGIC/LYMPHATIC: (+)thrombocytopenia. ALLERGIC/IMMUNOLOGIC: No hives or skin allergy. <Neelam Miller - Last Filed: 03/18/17 06:41> *Physical Exam - Vital Signs Last Vital Signs Temp Pulse Resp BP Pulse Ox 98.3 F 105 H 20 146/69 96 03/17/17 22:49 03/17/17 22:49 03/17/17 22:49 03/17/17 22:49 03/17/17 22:49 <Willam Carey - Last Filed: 03/18/17 03:47> - Vital Signs Last Vital Signs Temp Pulse Resp BP Pulse Ox 98.3 F 105 H 20 146/69 96 03/17/17 22:49 03/17/17 22:49 03/17/17 22:49 03/17/17 22:49 03/17/17 22:49 - Physical Exam Comments: 03/18/17 00:32 GENERAL: Awake, alert, and fully oriented, in no acute distress HEAD: No signs of trauma EYES: PERRLA, EOMI, sclera anicteric, conjunctiva clear ENT: Auricles normal inspection, hearing grossly normal, nares patent, oropharynx clear without exudates. Moist mucosa NECK: Normal ROM, supple, no lymphadenopathy, JVD, or masses LUNGS: Breath sounds equal, clear to auscultation bilaterally. No wheezes, and no crackles HEART: (+)Systolic murmur. Normal S1 and S2, rubs or gallops ABDOMEN: Soft, nontender, normoactive bowel sounds. No guarding, no rebound. No masses EXTREMITIES: Normal range of motion, no edema. No clubbing or cyanosis. No cords, erythema, or tenderness NEUROLOGICAL: Cranial nerves II through XII grossly intact. SKIN: Warm, Dry, normal turgor. No purpura noted, not even on the dorsum of her feet bilaterally. <Neelam Miller - Last Filed: 03/18/17 06:41> Heart Score/ECG Review - ECG Intrepretation Comment:: 03/18/17 00:42 EKG was reviewed by Dr. Carey at 00:36. Impression: Normal sinus rhythm. Left axis deviation. Vent. Rate: 91 bpm GA Interval: 140 ms QTc: 484 ms <Neelam Miller - Last Filed: 03/18/17 06:41> ED Treatment Course - LABORATORY CBC & Chemistry Diagram: 03/18/17 00:14 03/18/17 00:14 <Willam Carey - Last Filed: 03/18/17 03:47> - LABORATORY CBC & Chemistry Diagram: 03/18/17 00:14 03/18/17 00:14 <Neelam Miller - Last Filed: 03/18/17 06:41> Medical Decision Making - Medical Decision Making 03/18/17 00:50 Dr. Ty was paged and notified via phone service. 03/18/17 01:42 Dr. Mcfarlane wanted the pt to receive 40 of decadron IV. The patient has already taken 60 of prednisone at home. Dr. Keating advised us to hold off on transfusion since the patient is not actively bleeding. Pt will be admitted to medicine. Dr. Nice signed out to [facility]. 03/18/17 06:41 Pt was admitted to [facility]. <Neelam Miller - Last Filed: 03/18/17 06:41> *DC/Admit/Observation/Transfer - Discharge Dispostion Admit: Yes - Attestations Physician Attestion: 03/17/17 23:29 I, Dr. Willam Carey, attest that this document has been prepared under my direction and personally reviewed by me in its entirety. I further attest, that it accurately reflects all work, treatment, procedures and medical decision -making performed by me. <Willam Carey - Last Filed: 03/18/17 03:47> - Attestations Scribe Attestion: 03/18/17 00:33 Documentation prepared by Neelam Miller, acting as biomedical repair technician for Willam Carey MD. <Neelam Miller - Last Filed: 03/18/17 06:41> Diagnosis at time of Disposition: Acute ITP - Discharge Dispostion Condition at time of disposition: Unchanged/Unknown - Referrals
[2017-03-18 00:32] LABS: BASOPHIL 0.4 % (0-2.0); EOSINOPHIL 0.3 % (0-4.5); MCH 24.1 pg (25.7-33.7); MCHC 30.8 g/dl (32.0-36.0); MEAN CELL VOLUME 78.2 fl (80-96); MEAN PLT VOLUME 11.1 fl (7.5-11.1); NEUTROPHILS 93.9 % (42.8-82.8); RDW 18.7 % (11.6-15.6); WHITE BLOOD COUNT 18.4 K/mm3 (4.0-10.0)
[2017-03-18 00:43] LABS: PLATELET COUNT 22 K/MM3 (134-434)
[2017-03-18 00:46] LABS: INR 1.08 (0.82-1.09); PROTHROMBIN TIME (PATIENT) 12.2 SEC (9.98-11.88)
[2017-03-18 00:56] LABS: ALBUMIN 3.6 g/dl (3.4-5.0); ALK PHOS 80 U/L (45-117); ANION GAP 12 (8-16); BILIRUBIN,DIRECT 0.1 mg/dL (0.0-0.2); BILIRUBIN,TOTAL 0.3 mg/dL (0.2-1.0); CALCIUM 9.3 mg/dL (8.5-10.1); CO2 26 mmol/L (21-32); CREATININE 1.3 mg/dL (0.55-1.02); GLUCOSE,RANDOM 188 mg/dL (74-106); SGOT/AST 14 U/L (15-37); SGPT/ALT 12 U/L (12-78); TOT PROT 8.8 g/dl (6.4-8.2)
--- NOTE | 2017-03-18 02:17 | HP ---
CHIEF COMPLAINT: Abnormal Lab Value PCP: Dr. Mcfarlane HISTORY OF PRESENT ILLNESS: This is a 66 y/o woman with a significant past medical history of Thrombocytopenia s/p Splenectomy, Non Hodgkin's Lymphoma (No active treatment). Who presents to the ED, for low platelet count 30. Patient reports having her platelets checked weekly, and was told to come in per her PCP. Patient reports her counts are normally in the low 100's. She reports her last transfusion of IMG was 3 months ago. Patient reports taking 60mg of Prednisone at home last night, per her PCP. Patient reports noting BRB after having a BM which she attributes to hemorrhoids. Patient denies fever, chills, cough, dizziness, CP, palpitations, AP, N/V/D, hematochezia, melena, hematuria, dysuria. ER course was notable for: (1) Platelets 22 (2) WBC 18.4 (3) BUN 33, Cr 1.3 Recent Travel: None PAST MEDICAL HISTORY: Thrombocytopenia Non- Hodgkin's Lymphoma (no active treatment) HTN NIDDM Spinal Stenosis OA Renal Insufficiency PAST SURGICAL HISTORY: Splenectomy Thoracotomy Social History: Smoking: Former Alcohol: None Drugs: None Lives with family Family History: Father: ITP, Lung Ca Mother- [place] Allergies ciprofloxacin HCl [From Cipro] Allergy (Intermediate, Verified 03/17/17 22:49) Itching levofloxacin [From Levaquin] Allergy (Intermediate, Verified 03/17/17 22:49) Rash atorvastatin calcium [From Lipitor] Allergy (Mild, Verified 03/17/17 22:49) muscle aches muscle aches HOME MEDICATIONS: Home Medications Medication Instructions Recorded Sertraline HCl [Zoloft -] 25 mg PO DAILY 08/28/14 Alprazolam [Xanax] 0.5 mg PO Q8H PRN #0 tablet 09/10/14 Pantoprazole Sodium [Protonix -] 40 mg PO DAILY #0 tablet.ec 09/10/14 Glipizide [Glucotrol Xl] 5 mg PO BID 11/12/15 Morphine Sulfate 15 mg PO QID PRN 03/31/16 Allopurinol [Zyloprim -] 150 mg PO DAILY #60 tablet 04/07/16 Albuterol Sulfate Inhaler - 1 - 2 inh PO Q4H 08/09/16 [Ventolin HFA Inhaler -] Calcium Carbonate 648 mg PO BID 08/09/16 Acetaminophen [Tylenol .Regular 650 mg PO DAILY tablet 10/29/16 Strength -] Amlodipine Besylate [Norvasc -] 5 mg PO DAILY #0 tablet 10/29/16 Docusate Sodium [Colace -] 100 mg PO BID #60 tab-cap 10/29/16 Lisinopril [Prinivil] 5 mg PO DAILY #30 tablet 12/28/16 Morphine *Sr* [MS Contin -] 60 mg PO TID #120 tab.sa MDD 180mg 12/28/16 Prednisone [Deltasone] 20 mg PO DAILY #90 tablet 12/28/16 REVIEW OF SYSTEMS CONSTITUTIONAL: Absent: fever, chills, diaphoresis, generalized weakness, malaise, loss of appetite, weight change HEENT: Absent: rhinorrhea, nasal congestion, throat pain, throat swelling, difficulty swallowing, mouth swelling, ear pain, eye pain, visual changes CARDIOVASCULAR: peripheral edema Absent: chest pain, syncope, palpitations, irregular heart rate, lightheadedness RESPIRATORY: chronic shortness of breath, dyspnea with exertion Absent: cough, orthopnea, wheezing, stridor, hemoptysis GASTROINTESTINAL: Absent: Obese, abdominal pain, abdominal distension, nausea, vomiting, diarrhea , constipation, melena, hematochezia RECTAL EXAM: Patient refused GENITOURINARY: Absent: dysuria, frequency, urgency, hesitancy, hematuria, flank pain, genital pain MUSCULOSKELETAL: arthralgia Absent: myalgia, joint swelling, back pain, neck pain SKIN: Absent: rash, itching, pallor HEMATOLOGIC/IMMUNOLOGIC: Absent: easy bleeding, easy bruising, lymphadenopathy, frequent infections ENDOCRINE: Absent: unexplained weight gain, unexplained weight loss, heat intolerance, cold intolerance NEUROLOGIC: Absent: headache, focal weakness or paresthesias, dizziness, unsteady gait, seizure, mental status changes, bladder or bowel incontinence PSYCHIATRIC: Absent: anxiety, depression, suicidal or homicidal ideation, hallucinations. PHYSICAL EXAMINATION GENERAL: Awake, alert, and fully oriented, in no acute distress. HEAD: Normal with no signs of trauma. EYES: Pupils equal, round and reactive to light, extraocular movements intact, sclera anicteric, conjunctiva clear. No lid lag. EARS, NOSE, THROAT: Ears normal, nares patent, oropharynx clear without exudates. Dry mucous membranes. NECK: Normal range of motion, supple without lymphadenopathy, JVD, or masses. LUNGS: Breath sounds equal, clear to auscultation bilaterally. No wheezes, and no crackles. No accessory muscle use. HEART: Regular rate and rhythm, normal S1 and S2 without murmur, rub or gallop. ABDOMEN: Obese, soft, nontender, not distended, normoactive bowel sounds, no guarding, no rebound, no masses. No hepatomegaly or splenomegaly. MUSCULOSKELETAL: Normal range of motion at all joints. No bony deformities or tenderness. No CVA tenderness. UPPER EXTREMITIES: 2+ pulses, warm, well-perfused. No cyanosis. No clubbing. No peripheral edema. LOWER EXTREMITIES: 2+ pulses, warm, well-perfused. No calf tenderness. +1 pitting R>L peripheral edema. NEUROLOGICAL: Cranial nerves II-XII intact. Normal speech. Gait not observed. PSYCHIATRIC: Cooperative. Good eye contact. Appropriate mood and affect. SKIN: Warm, dry, normal turgor, no rashes or lesions noted, normal capillary refill. Laboratory Results - last 24 hr 03/18/17 03/18/17 03/18/17 00:14 00:14 00:14 WBC 18.4 H D RBC 4.17 Hgb 10.0 L Hct 32.6 MCV 78.2 L MCH 24.1 L MCHC 30.8 L RDW 18.7 H Plt Count 22 L* D MPV 11.1 D Neutrophils % 93.9 H Lymphocytes % 3.7 L D Monocytes % 1.7 L Eosinophils % 0.3 D Basophils % 0.4 PT with INR 12.20 H INR 1.08 Sodium 135 L Potassium 4.0 D Chloride 97 L Carbon Dioxide 26 Anion Gap 12 BUN 17 D Creatinine 1.3 H Creat Clearance w eGFR 40.98 Random Glucose 188 H Calcium 9.3 Total Bilirubin 0.3 D Direct Bilirubin 0.1 D AST 14 L ALT 12 Alkaline Phosphatase 80 D B-Natriuretic Peptide 146.10 H Total Protein 8.8 H Albumin 3.6 D Blood Type Antibody Screen 03/18/17 00:14 WBC RBC Hgb Hct MCV MCH MCHC RDW Plt Count MPV Neutrophils % Lymphocytes % Monocytes % Eosinophils % Basophils % PT with INR INR Sodium Potassium Chloride Carbon Dioxide Anion Gap BUN Creatinine Creat Clearance w eGFR Random Glucose Calcium Total Bilirubin Direct Bilirubin AST ALT Alkaline Phosphatase B-Natriuretic Peptide Total Protein Albumin Blood Type A POSITIVE Antibody Screen Negative ASSESSMENT/PLAN: This is a 66 y/o woman with a PMHx of: Thrombocytopenia, Non- Hodgkin's Lymphoma, HTN, DM, OA. Admitted to M/S Acute ITP for further evaluation of their emergent condition. Plan: 1. Heme: Acute ITP - s/p Splenectomy - Patient took Prednisone 60mg at home before arrival to ED - Appreciate Hematology Consult - Will repeat CBC, BMP in am - Will defer glucocorticoids till am labs and discussion with Heme by Day Team - Monitor vitals // Non- Hodgkin's Lymphoma - Per patient no active treatments 2. Card: Hypertension - Monitor BP - Will need to verify home meds in am - Monitor renal function 3. Endo: Diabetes Mellitus - BGMs - ISS - Will hold home meds for tighter glycemic control 4. Musc: OA// Spinal Stenosis - Continue Morphine Sulfate - Will need to verify MS Contin with patient's home pharmacy 5. FEN - PO fluids as tolerated - Replete lytes prn - Low Na, Diabetic Diet 6. DVT Prophylaxis - OOB - SCDs - Will hold ACs secondary to Acute ITP Code Status: Full Code Dispo: Requires Inpatient Care Problem List - Problem (1) Acute ITP Code(s): D69.3 - IMMUNE THROMBOCYTOPENIC PURPURA (2) Chronic kidney disease Code(s): N18.9 - CHRONIC KIDNEY DISEASE, UNSPECIFIED Qualifiers: (3) Diabetes mellitus Code(s): E11.9 - TYPE 2 DIABETES MELLITUS WITHOUT COMPLICATIONS (4) HTN (hypertension) Code(s): I10 - ESSENTIAL (PRIMARY) HYPERTENSION Qualifiers: (5) Osteoarthritis Code(s): M19.90 - UNSPECIFIED OSTEOARTHRITIS, UNSPECIFIED SITE (6) Mantle cell lymphoma Code(s): C83.10 - MANTLE CELL LYMPHOMA, UNSPECIFIED SITE (7) Spinal stenosis Code(s): M48.00 - SPINAL STENOSIS, SITE UNSPECIFIED (8) DVT prophylaxis Code(s): NXT9140 - Visit type - Emergency Visit Emergency Visit: Yes ED Registration Date: 03/18/17 Care time: The patient presented to the Emergency Department on the above date and was hospitalized for further evaluation of their emergent condition. - New Patient This patient is new to me today: Yes Date on this admission: 03/18/17 - Critical Care Critical Care patient: No
[2017-03-18] MEDS ORDERED: morphine SULFATE IMMEDIATE RELEASE 30 MG TAB PO ONE (08:25)
[2017-03-18] MEDS ORDERED: morphine SULFATE IMMEDIATE RELEASE 30 MG TAB ONE (08:44)
[2017-03-18] MEDS: ALLOPURINOL 100 MG TABLET (FP) PO SCH (10:33)
[2017-03-18] MEDS: PANTOPRAZOLE 40 MG TABLET (FP) PO SCH (10:34)
[2017-03-18] MEDS: CALCIUM CARBONATE 650 MG TABLET PO SCH ×2 (10:34→22:12)
[2017-03-18] MEDS: amLODIPine BESYLATE 5 MG TABLET (FP) PO SCH (10:34)
[2017-03-18] MEDS: SERTRALINE HCL 25 MG TABLET (FP) PO SCH (10:34)
[2017-03-18] MEDS: DOCUSATE SODIUM 100 MG CAPSULE (FP) PO SCH ×2 (10:35→22:11)
[2017-03-18 10:50] LABS: BASOPHIL 0.4 % (0-2.0); MCH 23.6 pg (25.7-33.7); MCHC 30.3 g/dl (32.0-36.0); MEAN CELL VOLUME 77.7 fl (80-96); MEAN PLT VOLUME 10.4 fl (7.5-11.1); NEUTROPHILS 91.9 % (42.8-82.8); RDW 18.9 % (11.6-15.6)
[2017-03-18 10:53] LABS: PLATELET COUNT 24 K/MM3 (134-434)
[2017-03-18 11:11] LABS: INR 1.12 (0.82-1.09); PROTHROMBIN TIME (PATIENT) 12.7 SEC (9.98-11.88)
[2017-03-18 11:18] LABS: ANION GAP 10 (8-16); CO2 27 mmol/L (21-32); CREATININE 1.3 mg/dL (0.55-1.02); GLUCOSE,RANDOM 225 mg/dL (74-106); MAGNESIUM 2.1 mg/dL (1.8-2.4)
--- NOTE | 2017-03-18 12:35 | EKG ---
Test Reason : Blood Pressure : / mmHG Vent. Rate : 091 BPM Atrial Rate : 091 BPM P-R Int : 140 ms QRS Dur : 090 ms QT Int : 394 ms P-R-T Axes : 072 -43 008 degrees QTc Int : 484 ms NORMAL SINUS RHYTHM LEFT ANTERIOR HEMIBLOCK INCOMPLETE RBBB Confirmed by BEN ENNIS MD ([id number]) on 03/18/2017 12:34:50 PM Referred By: Confirmed By:BEN ENNIS MD
[2017-03-18] MEDS ORDERED: morphine SULFATE IMMEDIATE RELEASE 30 MG TAB PO PRN ×2 (13:04→13:06)
[2017-03-18] MEDS ORDERED: morphine SO4 SUSTAINED ACTING 15 MG TABLET.SA ONE (13:21)
[2017-03-18] MEDS: morphine SO4 SUSTAINED ACTING 30 MG TABLET.SA PO SCH ×2 (13:29→22:11)
[2017-03-18] MEDS ORDERED: morphine SO4 SUSTAINED ACTING 30 MG TABLET.SA PO SCH (14:00)
--- NOTE | 2017-03-18 14:33 | CONSULT ---
Consult - text type - Consultation Consultation Note: CHIEF COMPLAINT: Abnormal Lab Value PCP: Dr. Mcfarlane HISTORY OF PRESENT ILLNESS: This is a 66 y/o woman with a significant past medical history of Thrombocytopenia s/p Splenectomy, amntle cell lymphoma in remission who came in to ED with thrombocytopenia of 30. She has had episodes of past ITP whcih ahs responded well to decadron and IVIG. She ususally has her platelets checked weekly and since she had thrombocytopenia she came in. No evidence of bleeding at this time. Recent Travel: None PAST MEDICAL HISTORY: Thrombocytopenia Non- Hodgkin's Lymphoma (no active treatment) HTN NIDDM Spinal Stenosis OA Renal Insufficiency Diaphragmatic hernia CBC, BMP 03/18/17 10:10 03/18/17 10:10 PAST SURGICAL HISTORY: Splenectomy Thoracotomy Social History: Smoking: Former Alcohol: None Drugs: None Lives with family Family History: Father: ITP, Lung Ca Mother- [place] Allergies ciprofloxacin HCl [From Cipro] Allergy (Intermediate, Verified 03/17/17 22:49) Itching levofloxacin [From Levaquin] Allergy (Intermediate, Verified 03/17/17 22:49) Rash atorvastatin calcium [From Lipitor] Allergy (Mild, Verified 03/17/17 22:49) muscle aches muscle aches HOME MEDICATIONS: Home Medications Medication Instructions Recorded Sertraline HCl [Zoloft -] 25 mg PO DAILY 08/28/14 Alprazolam [Xanax] 0.5 mg PO Q8H PRN #0 tablet 09/10/14 Pantoprazole Sodium [Protonix -] 40 mg PO DAILY #0 tablet.ec 09/10/14 Glipizide [Glucotrol Xl] 5 mg PO BID 11/12/15 Morphine Sulfate 15 mg PO QID PRN 03/31/16 Allopurinol [Zyloprim -] 150 mg PO DAILY #60 tablet 04/07/16 Albuterol Sulfate Inhaler - 1 - 2 inh PO Q4H 08/09/16 [Ventolin HFA Inhaler -] Calcium Carbonate 648 mg PO BID 08/09/16 Acetaminophen [Tylenol .Regular 650 mg PO DAILY tablet 10/29/16 Strength -] Amlodipine Besylate [Norvasc -] 5 mg PO DAILY #0 tablet 10/29/16 Docusate Sodium [Colace -] 100 mg PO BID #60 tab-cap 05/27/17 Lisinopril [Prinivil] 5 mg PO DAILY #30 tablet 12/28/16 Morphine *Sr* [MS Contin -] 60 mg PO TID #120 tab.sa MDD 180mg 12/28/16 Prednisone [Deltasone] 20 mg PO DAILY #90 tablet 12/28/16 REVIEW OF SYSTEMS CONSTITUTIONAL: Absent: fever, chills, diaphoresis, generalized weakness, malaise, loss of appetite, weight change HEENT: Absent: rhinorrhea, nasal congestion, throat pain, throat swelling, difficulty swallowing, mouth swelling, ear pain, eye pain, visual changes CARDIOVASCULAR: peripheral edema Absent: chest pain, syncope, palpitations, irregular heart rate, lightheadedness RESPIRATORY: chronic shortness of breath, dyspnea with exertion Absent: cough, orthopnea, wheezing, stridor, hemoptysis GASTROINTESTINAL: Absent: Obese, abdominal pain, abdominal distension, nausea, vomiting, diarrhea , constipation, melena, hematochezia RECTAL EXAM: Patient refused GENITOURINARY: Absent: dysuria, frequency, urgency, hesitancy, hematuria, flank pain, genital pain MUSCULOSKELETAL: arthralgia Absent: myalgia, joint swelling, back pain, neck pain SKIN: Absent: rash, itching, pallor HEMATOLOGIC/IMMUNOLOGIC: Absent: easy bleeding, easy bruising, lymphadenopathy, frequent infections ENDOCRINE: Absent: unexplained weight gain, unexplained weight loss, heat intolerance, cold intolerance NEUROLOGIC: Absent: headache, focal weakness or paresthesias, dizziness, unsteady gait, seizure, mental status changes, bladder or bowel incontinence PSYCHIATRIC: Absent: anxiety, depression, suicidal or homicidal ideation, hallucinations. Vital Signs Period Temp Pulse Resp BP Sys/[place] Pulse Ox Last 24 Hr 98.3 F 105 20 146/69 96-97 PHYSICAL EXAMINATION GENERAL: Awake, alert, and fully oriented, in no acute distress. HEAD: Normal with no signs of trauma. EYES: Pupils equal, round and reactive to light, extraocular movements intact, sclera anicteric, conjunctiva clear. No lid lag. EARS, NOSE, THROAT: Ears normal, nares patent, oropharynx clear without exudates. Dry mucous membranes. NECK: Normal range of motion, supple without lymphadenopathy, JVD, or masses. LUNGS: Breath sounds equal, clear to auscultation bilaterally. No wheezes, and no crackles. No accessory muscle use. HEART: Regular rate and rhythm, normal S1 and S2 without murmur, rub or gallop. ABDOMEN: Obese, soft, nontender, not distended, normoactive bowel sounds, no guarding, no rebound, no masses. No hepatomegaly or splenomegaly. MUSCULOSKELETAL: Normal range of motion at all joints. No bony deformities or tenderness. No CVA tenderness. UPPER EXTREMITIES: 2+ pulses, warm, well-perfused. No cyanosis. No clubbing. No peripheral edema. LOWER EXTREMITIES: 2+ pulses, warm, well-perfused. No calf tenderness. +1 pitting R>L peripheral edema. NEUROLOGICAL: Cranial nerves II-XII intact. Normal speech. Gait not observed. PSYCHIATRIC: Cooperative. Good eye contact. Appropriate mood and affect. SKIN: Warm, dry, normal turgor, no rashes or lesions noted, normal capillary refill. CBC, BMP 03/18/17 10:10 03/18/17 10:10 Active Medications Generic Name Dose Route Start Last Admin Trade Name Freq PRN Reason Stop Dose Admin Albuterol Sulfate 1 puff 03/18/17 08:30 Ventolin Hfa Inhaler - IH Q4H PRASHANT Allopurinol 150 mg 03/18/17 10:00 03/18/17 10:33 Zyloprim - PO 150 mg DAILY PRASHANT Administration Alprazolam 0.5 mg 03/18/17 08:17 Xanax - PO Q8H PRN ANXIETY Amlodipine Besylate 5 mg 03/18/17 10:00 03/18/17 10:34 Norvasc - PO 5 mg DAILY PRASHANT Administration Calcium Carbonate 648 mg 03/18/17 10:00 03/18/17 10:34 Calcium Carbonate - PO 648 mg BID PRASHANT Administration Docusate Sodium 100 mg 03/18/17 10:00 03/18/17 10:35 Colace - PO 100 mg BID PRASHANT Administration Morphine Sulfate 60 mg 03/18/17 13:15 03/18/17 13:29 Ms Contin - PO 60 mg Q8H PRASHANT Administration Morphine Sulfate 15 mg 03/18/17 13:09 Msir - PO Q6H PRN PAIN Pantoprazole Sodium 40 mg 03/18/17 10:00 03/18/17 10:34 Protonix - PO 40 mg DAILY PRASHANT Administration Sertraline HCl 25 mg 03/18/17 10:00 10/14/17 10:34 Zoloft - PO 25 mg DAILY PRASHANT Administration ASSESSMENT/PLAN: This is a 66 y/o woman with a PMHx of thrombocytopenia, mantle cell lymphoma, HTN, DM, OA. She is here for acute ITP. ITP : -We will start dexamethasone 40 mg iv q day -PPI -Benadryl/tylenol -IVIG as well.
[2017-03-18] MEDS ORDERED: DEXAMETHASONE SOD PHOSPHATE 20 MG/5 ML VIAL IVPB SCH (14:45)
[2017-03-18] MEDS ORDERED: IMMUNE GLOBULIN (IgG) 10 GM VIAL IVPB SCH (15:00)
[2017-03-18] MEDS ORDERED: diphenhydrAMINE HCL 25 MG CAPSULE (FP) PO SCH ×2 (15:00→20:15)
[2017-03-18] MEDS ORDERED: ACETAMINOPHEN 500 MG TABLET (FP) PO SCH ×2 (15:00→20:15)
[2017-03-18 16:57] VITALS: BMI 38.6
[2017-03-18] MEDS ORDERED: DEXAMETHASONE SOD PHOSPHATE 10 MG/1 ML VIAL IVPB SCH (17:58)
[2017-03-18] MEDS: DEXAMETHASONE SOD PHOSPHATE 10 MG/1 ML VIAL IVPB SCH (20:21)
[2017-03-18] MEDS: morphine SULFATE IMMEDIATE RELEASE 30 MG TAB PO PRN (20:32)
[2017-03-18 20:54] LABS: URINE APPEARANCE SLCLOUDY; URINE BILIRUBIN NEGATIVE (NEGATIVE); URINE BLOOD 3+ (NEGATIVE); URINE COLOR YELLOW; URINE GLUCOSE (UA) NEGATIVE (NEGATIVE); URINE KETONE NEGATIVE (NEGATIVE); URINE NITRITE NEGATIVE (NEGATIVE); URINE UROBILINOGEN NEGATIVE mg/dL (0.2-1.0)
[2017-03-18 20:55] LABS: URINE PROTEIN 1+ (NEGATIVE)
[2017-03-18 21:01] LABS: URINE BACTERIA RARE /hpf (NONE SEEN); URINE HYALINE CAST 1 /lpf; URINE MUCUS RARE; URINE RBC 301 /hpf (0-3); URINE WBC 5 /hpf (3-5)
[2017-03-18] MEDS: IMMUNE GLOBULIN (IgG) 10 GM VIAL IVPB SCH (21:30)
[2017-03-18] MEDS: ALBUTEROL SO4 18 GM HFA INHALER IH SCH (21:32)
[2017-03-18] MEDS: ALPRAZolam 0.25 MG TABLET PO PRN (22:10)
[2017-03-18 23:00] LABS: URINE LEUK ESTERASE TRACE (NEGATIVE)
[2017-03-19] MEDS: morphine SO4 SUSTAINED ACTING 30 MG TABLET.SA PO SCH ×3 (05:56→21:44)
[2017-03-19] MEDS: ALBUTEROL SO4 18 GM HFA INHALER IH SCH (05:56)
[2017-03-19 07:37] LABS: BASOPHIL 0.2 % (0-2.0); MCH 24.2 pg (25.7-33.7); MCHC 30.9 g/dl (32.0-36.0); MEAN CELL VOLUME 78.4 fl (80-96); MEAN PLT VOLUME 12.3 fl (7.5-11.1); PLATELET COUNT 74 K/MM3 (134-434); RDW 18.6 % (11.6-15.6); WHITE BLOOD COUNT 8.4 K/mm3 (4.0-10.0)
[2017-03-19] MEDS ORDERED: ALBUTEROL SO4 2.5/IPRATROPIUM 0.5 INH SOL 3 ML VIAL.NEB. NEB PRN (10:39)
--- NOTE | 2017-03-19 10:43 | PN ---
Physical Exam: SUBJECTIVE: Patient seen and examined at the bedside. She denies any shortness of breath or pain. States she is comfortable at rest OBJECTIVE: Day #2 of IVIG therapy for thrombocytopenia - platelets 22>74 Premedicated with Benadryl 25mg ivpb Blood sugars elevated, started on Novolog BGMs ac/hs Vital Signs Period Temp Pulse Resp BP Sys/[place] Pulse Ox Last 24 Hr 97.5 F-98.1 F 88-102 18-20 124-155/61-78 92-95 GENERAL: The patient is awake, alert, and fully oriented, in no acute distress. HEAD: Normal with no signs of trauma. EYES: PERRL, extraocular movements intact, sclera anicteric, conjunctiva clear. No ptosis. ENT: Ears normal, nares patent, oropharynx clear without exudates, moist mucous membranes. NECK: Trachea midline, full range of motion, supple. LUNGS: +crackles at lower bases HEART: Regular rate and rhythm, S1, S2 without murmur, rub or gallop. ABDOMEN: Soft, nontender, nondistended, normoactive bowel sounds, no guarding, no rebound, no hepatosplenomegaly, no masses. EXTREMITIES: 2+ pulses, warm, well-perfused, no edema. NEUROLOGICAL: Cranial nerves II through XII grossly intact. Normal speech, gait not observed. PSYCH: Normal mood, normal affect. SKIN: Warm, dry, normal turgor, no rashes or lesions noted Laboratory Results - last 24 hr 03/18/17 03/18/17 03/18/17 10:10 10:10 10:10 WBC 12.0 H D RBC 4.01 Hgb 9.4 L Hct 31.2 L MCV 77.7 L MCH 23.6 L MCHC 30.3 L RDW 18.9 H Plt Count 24 L* MPV 10.4 Neutrophils % 91.9 H Lymphocytes % 6.2 L D Monocytes % 1.5 L Eosinophils % 0.0 D Basophils % 0.4 PT with INR 12.70 H INR 1.12 Sodium 133 L Potassium 4.2 Chloride 96 L Carbon Dioxide 27 Anion Gap 10 BUN 19 H Creatinine 1.3 H Creat Clearance w eGFR POC Glucometer Random Glucose 225 H Calcium 9.0 Phosphorus 4.0 Magnesium 2.1 Total Bilirubin AST ALT Alkaline Phosphatase Total Protein Albumin Urine Color Urine Appearance Urine pH Ur Specific [place] Urine Protein Urine Glucose (UA) Urine Ketones Urine Blood Urine Nitrite Urine Bilirubin Urine Urobilinogen Ur Leukocyte Esterase Urine RBC Urine WBC Ur Epithelial Cells Urine Bacteria Hyaline Casts Urine Mucus 03/18/17 03/19/17 03/19/17 20:10 06:15 06:15 WBC 8.4 RBC 3.65 Hgb 8.9 L Hct 28.7 L MCV 78.4 L MCH 24.2 L MCHC 30.9 L RDW 18.6 H Plt Count 74 L D MPV 12.3 H D Neutrophils % 91.0 H Lymphocytes % 7.9 L D Monocytes % 0.9 L Eosinophils % 0.0 Basophils % 0.2 PT with INR INR Sodium Cancelled Potassium Cancelled Chloride Cancelled Carbon Dioxide Cancelled Anion Gap Cancelled BUN Cancelled Creatinine Cancelled Creat Clearance w eGFR Cancelled POC Glucometer Random Glucose Cancelled Calcium Cancelled Phosphorus Magnesium Cancelled Total Bilirubin Cancelled AST Cancelled ALT Cancelled Alkaline Phosphatase Cancelled Total Protein Cancelled Albumin Cancelled Urine Color Yellow Urine Appearance Slcloudy Urine pH 5.0 Ur Specific [place] 1.010 Urine Protein 1+ H Urine Glucose (UA) Negative Urine Ketones Negative Urine Blood 3+ H Urine Nitrite Negative Urine Bilirubin Negative Urine Urobilinogen Negative Ur Leukocyte Esterase Trace H Urine RBC 301 Urine WBC 5 Ur Epithelial Cells Rare Urine Bacteria Rare Hyaline Casts 1 Urine Mucus Rare 03/19/17 08:33 WBC RBC Hgb Hct MCV MCH MCHC RDW Plt Count MPV Neutrophils % Lymphocytes % Monocytes % Eosinophils % Basophils % PT with INR INR Sodium Potassium Chloride Carbon Dioxide Anion Gap BUN Creatinine Creat Clearance w eGFR POC Glucometer 345 Random Glucose Calcium Phosphorus Magnesium Total Bilirubin AST ALT Alkaline Phosphatase Total Protein Albumin Urine Color Urine Appearance Urine pH Ur Specific [place] Urine Protein Urine Glucose (UA) Urine Ketones Urine Blood Urine Nitrite Urine Bilirubin Urine Urobilinogen Ur Leukocyte Esterase Urine RBC Urine WBC Ur Epithelial Cells Urine Bacteria Hyaline Casts Urine Mucus Active Medications Generic Name Dose Route Start Last Admin Trade Name Freq PRN Reason Stop Dose Admin Acetaminophen 500 mg 03/19/17 11:00 Tylenol - PO ONCE PRASHANT Albuterol/Ipratropium 1 amp 03/19/17 10:39 Duoneb - NEB Q6H PRN SHORTNESS OF BREATH Allopurinol 150 mg 03/18/17 10:00 03/18/17 10:33 Zyloprim - PO 150 mg DAILY PRASHANT Administration Alprazolam 0.5 mg 03/18/17 08:17 03/18/17 22:10 Xanax - PO 0.5 mg Q8H PRN Administration ANXIETY Amlodipine Besylate 5 mg 03/18/17 10:00 03/18/17 10:34 Norvasc - PO 5 mg DAILY PRASHANT Administration Calcium Carbonate 648 mg 03/18/17 10:00 03/18/17 22:12 Calcium Carbonate - PO 648 mg BID PRASHANT Administration Dexamethasone Sodium Phosphate 40 mg 03/18/17 20:15 03/18/17 20:21 Decadron Injection - IVPB 40 mg DAILY PRASHANT Administration Diphenhydramine HCl 25 mg 03/19/17 11:00 Benadryl Injection - IVPB 03/19/17 11:01 ONCE ONE Docusate Sodium 100 mg 03/18/17 10:00 03/18/17 22:11 Colace - PO 100 mg BID PRASHANT Administration Immune Globulin 40 gm 03/18/17 20:45 03/18/17 21:30 Gamunex - IVPB 40 gm DAILY PRASHANT Administration Insulin Aspart 1 vial 03/19/17 11:00 Novolog Vial Sliding Scale - SQ ACHS PRASHANT Protocol Morphine Sulfate 60 mg 03/18/17 13:15 03/19/17 05:56 Ms Contin - PO 60 mg Q8H PRASHANT Administration Morphine Sulfate 15 mg 03/18/17 13:09 03/18/17 20:32 Msir - PO 15 mg Q6H PRN Administration PAIN Pantoprazole Sodium 40 mg 03/18/17 10:00 03/18/17 10:34 Protonix - PO 40 mg DAILY PRASHANT Administration Sertraline HCl 25 mg 03/18/17 10:00 03/18/17 10:34 Zoloft - PO 25 mg DAILY PRASHANT Administration ASSESSMENT/PLAN: Patient is a 66 year old female with a PMHx thrombocytopenia, splenectomy, NHL, HTN and DM. She was admitted with acute ITP with platelets of 22. 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/P: Platelets on admission 22, now 74 Day #2 of IVIG therapy Premedicate 1 hour prior to IVIG with Tylenol, Tyelenol, IV Decadrol 40mg Monitor labs, vitals Non-Hodgkin's Lymphoma, chronic A/P: No active treatments per patient Cardiology: Hypertension A/P: Monitor BP Endocrine: Diabetes Mellitus, chronic/elevated blood sugars today A/P: on Novolog sliding scale, Michelle @ [facility] Will hold home meds for tighter glycemic control FEN Fluids: PO fluids as tolerated, Replete lytes prn, Low Na, Diabetic Diet DVT Prophylaxis: SCDs, A/C contraindicated Code Status: Full Code Dispo: Requires Inpatient Care Visit type - Emergency Visit Emergency Visit: Yes ED Registration Date: 03/18/17 Care time: The patient presented to the Emergency Department on the above date and was hospitalized for further evaluation of their emergent condition. - New Patient This patient is new to me today: Yes Date on this admission: 03/19/17 - Critical Care Critical Care patient: No - Discharge Referral Referred to [facility] No
[2017-03-19 10:44] LABS: ALBUMIN 3.2 g/dl (3.4-5.0); ANION GAP 9 (8-16); BILIRUBIN,TOTAL 0.4 mg/dL (0.2-1.0); CALCIUM 8.6 mg/dL (8.5-10.1); CO2 27 mmol/L (21-32); CREATININE 1.5 mg/dL (0.55-1.02); MAGNESIUM 2.3 mg/dL (1.8-2.4); SGOT/AST 16 U/L (15-37); SGPT/ALT 14 U/L (12-78); TOT PROT 8.6 g/dl (6.4-8.2)
[2017-03-19 10:45] LABS: ALK PHOS 67 U/L (45-117)
[2017-03-19] MEDS: DEXAMETHASONE SOD PHOSPHATE 10 MG/1 ML VIAL IVPB SCH ×2 (10:52→21:13)
[2017-03-19] MEDS: CALCIUM CARBONATE 650 MG TABLET PO SCH ×2 (10:52→21:46)
[2017-03-19] MEDS: amLODIPine BESYLATE 5 MG TABLET (FP) PO SCH (10:53)
[2017-03-19] MEDS: ALLOPURINOL 100 MG TABLET (FP) PO SCH (10:53)
[2017-03-19] MEDS: PANTOPRAZOLE 40 MG TABLET (FP) PO SCH (10:53)
[2017-03-19] MEDS: DOCUSATE SODIUM 100 MG CAPSULE (FP) PO SCH ×2 (10:54→21:45)
[2017-03-19 10:56] LABS: GLUCOSE,RANDOM 397 mg/dL (74-106)
[2017-03-19] MEDS: SERTRALINE HCL 25 MG TABLET (FP) PO SCH (10:56)
[2017-03-19] MEDS ORDERED: INSULIN SLIDING SCALE (NOVOLOG) 1 VIAL SQ SCH (11:00)
[2017-03-19] MEDS ORDERED: ACETAMINOPHEN 500 MG TABLET (FP) PO SCH (11:00)
[2017-03-19] MEDS ORDERED: INSULIN (NOVOLOG) ASPART 100 UNITS/ML 10ML VIAL ONE ×2 (11:22→20:14)
[2017-03-19] MEDS: INSULIN SLIDING SCALE (NOVOLOG) 1 VIAL SQ SCH ×3 (11:33→21:50)
[2017-03-19] MEDS: IMMUNE GLOBULIN (IgG) 10 GM VIAL IVPB SCH ×2 (12:27→22:18)
[2017-03-19] MEDS ORDERED: Insulin (LOG) Aspart 100 UNITS/ML VIAL SQ ONE (13:30)
--- NOTE | 2017-03-19 13:51 | PN ---
Progress Note (short form) - Note Progress Note: This is a 66 y/o woman with a significant past medical history of Thrombocytopenia s/p Splenectomy, amntle cell lymphoma in remission who came in to ED with thrombocytopenia of 30. She has had episodes of past ITP whcih has responded well to decadron and IVIG. She ususally has her platelets checked weekly and since she had thrombocytopenia she came in. No evidence of bleeding at this time. Overall she is doing well and is asymtpomatic Vital Signs Period Temp Pulse Resp BP Sys/[place] Pulse Ox Last 24 Hr 97.5 F-98.1 F 88-102 18-20 124-155/61-78 92-95 PHYSICAL EXAMINATION GENERAL: Awake, alert, and fully oriented, in no acute distress. HEAD: Normal with no signs of trauma. EYES: Pupils equal, round and reactive to light, extraocular movements intact, sclera anicteric, conjunctiva clear. No lid lag. EARS, NOSE, THROAT: Ears normal, nares patent, oropharynx clear without exudates. Dry mucous membranes. NECK: Normal range of motion, supple without lymphadenopathy, JVD, or masses. LUNGS: Breath sounds equal, clear to auscultation bilaterally. No wheezes, and no crackles. No accessory muscle use. HEART: Regular rate and rhythm, normal S1 and S2 without murmur, rub or gallop. ABDOMEN: Obese, soft, nontender, not distended, normoactive bowel sounds, no guarding, no rebound, no masses. No hepatomegaly or splenomegaly. MUSCULOSKELETAL: Normal range of motion at all joints. No bony deformities or tenderness. No CVA tenderness. UPPER EXTREMITIES: 2+ pulses, warm, well-perfused. No cyanosis. No clubbing. No peripheral edema. LOWER EXTREMITIES: 2+ pulses, warm, well-perfused. No calf tenderness. +1 pitting R>L peripheral edema. NEUROLOGICAL: Cranial nerves II-XII intact. Normal speech. Gait not observed. PSYCHIATRIC: Cooperative. Good eye contact. Appropriate mood and affect. SKIN: Warm, dry, normal turgor, no rashes or lesions noted, normal capillary refill. CBC, BMP 03/19/17 06:15 03/19/17 09:45 Active Medications Generic Name Dose Route Start Last Admin Trade Name Freq PRN Reason Stop Dose Admin Acetaminophen 500 mg 03/19/17 11:00 03/19/17 10:53 Tylenol - PO 500 mg ONCE PRASHANT Administration Albuterol/Ipratropium 1 amp 03/19/17 10:39 Duoneb - NEB Q6H PRN SHORTNESS OF BREATH Allopurinol 150 mg 03/18/17 10:00 03/19/17 10:53 Zyloprim - PO 150 mg DAILY PRASHANT Administration Alprazolam 0.5 mg 03/18/17 08:17 03/18/17 22:10 Xanax - PO 0.5 mg Q8H PRN Administration ANXIETY Amlodipine Besylate 5 mg 03/18/17 10:00 03/19/17 10:53 Norvasc - PO 5 mg DAILY PRASHANT Administration Calcium Carbonate 648 mg 03/18/17 10:00 03/19/17 10:52 Calcium Carbonate - PO 648 mg BID PRASHANT Administration Dexamethasone Sodium Phosphate 40 mg 03/18/17 20:15 03/19/17 10:52 Decadron Injection - IVPB Not Given DAILY PRASHANT Docusate Sodium 100 mg 03/18/17 10:00 03/19/17 10:54 Colace - PO 100 mg BID PRASHANT Administration Immune Globulin 40 gm 03/19/17 18:00 Gamunex - IVPB 03/21/17 23:59 DAILY PRASHANT Insulin Aspart 1 vial 03/19/17 11:00 03/19/17 11:33 Novolog Vial Sliding Scale - SQ 14 units ACHS PRASHANT Administration Protocol Morphine Sulfate 60 mg 03/18/17 13:15 03/19/17 13:30 Ms Contin - PO 60 mg Q8H PRASHANT Administration Morphine Sulfate 15 mg 03/18/17 13:09 03/18/17 20:32 Msir - PO 15 mg Q6H PRN Administration PAIN Pantoprazole Sodium 40 mg 03/18/17 10:00 03/19/17 10:53 Protonix - PO 40 mg DAILY PRASHANT Administration Sertraline HCl 25 mg 03/18/17 10:00 03/19/17 10:56 Zoloft - PO 25 mg DAILY PRASHANT Administration ASSESSMENT/PLAN: This is a 66 y/o woman with a PMHx of thrombocytopenia, mantle cell lymphoma, HTN, DM, OA. She is here for acute ITP. ITP : D2 of IVIG/ Decadron out of 5 days -Platelets are improving
[2017-03-19] MEDS ORDERED: INSULIN (NOVOLOG) ASPART 100 UNITS/ML 10ML VIAL SQ ONE (14:08)
[2017-03-19] MEDS: morphine SULFATE IMMEDIATE RELEASE 30 MG TAB PO PRN (16:37)
[2017-03-19] MEDS ORDERED: IMMUNE GLOBULIN (IgG) 10 GM VIAL IVPB SCH (18:00)
[2017-03-19] MEDS: INSULIN DETEMIR 100 UNITS/ML MDV SQ SCH (21:52)
[2017-03-19] MEDS: ACETAMINOPHEN 500 MG TABLET (FP) PO SCH (22:03)
[2017-03-19] MEDS: ALPRAZolam 0.25 MG TABLET PO PRN (22:30)
[2017-03-20] MEDS: morphine SO4 SUSTAINED ACTING 30 MG TABLET.SA PO SCH ×3 (04:41→21:18)
[2017-03-20] MEDS: INSULIN SLIDING SCALE (NOVOLOG) 1 VIAL SQ SCH ×4 (06:27→21:35)
[2017-03-20 07:26] LABS: BASOPHIL 0.2 % (0-2.0); MCH 24.5 pg (25.7-33.7); MCHC 31.6 g/dl (32.0-36.0); MEAN CELL VOLUME 77.5 fl (80-96); MEAN PLT VOLUME 10.2 fl (7.5-11.1); NEUTROPHILS 91.1 % (42.8-82.8); PLATELET COUNT 105 K/MM3 (134-434); RDW 18.7 % (11.6-15.6); WHITE BLOOD COUNT 9.3 K/mm3 (4.0-10.0)
[2017-03-20 07:54] LABS: ANION GAP 8 (8-16); CALCIUM 8.6 mg/dL (8.5-10.1); CO2 27 mmol/L (21-32); GLUCOSE,RANDOM 280 mg/dL (74-106)
[2017-03-20 07:57] LABS: ALK PHOS 53 U/L (45-117); BILIRUBIN,TOTAL 0.3 mg/dL (0.2-1.0); CREATININE 1.4 mg/dL (0.55-1.02); SGOT/AST 18 U/L (15-37); SGPT/ALT 14 U/L (12-78); TOT PROT 8.8 g/dl (6.4-8.2)
[2017-03-20] MEDS ORDERED: PT OWN MED DRAWER 7, Y5N ONE ×2 (10:41→21:32)
[2017-03-20] MEDS: DOCUSATE SODIUM 100 MG CAPSULE (FP) PO SCH ×2 (11:08→21:33)
[2017-03-20] MEDS: ALLOPURINOL 100 MG TABLET (FP) PO SCH (11:08)
[2017-03-20] MEDS: PANTOPRAZOLE 40 MG TABLET (FP) PO SCH (11:08)
[2017-03-20] MEDS: CALCIUM CARBONATE 650 MG TABLET PO SCH ×2 (11:08→21:33)
[2017-03-20] MEDS: amLODIPine BESYLATE 5 MG TABLET (FP) PO SCH (11:08)
[2017-03-20] MEDS: SERTRALINE HCL 25 MG TABLET (FP) PO SCH (11:08)
[2017-03-20] MEDS: morphine SULFATE IMMEDIATE RELEASE 30 MG TAB PO PRN ×2 (11:09→23:19)
[2017-03-20] MEDS: ALPRAZolam 0.25 MG TABLET PO PRN (11:32)
[2017-03-20] MEDS: DEXAMETHASONE SOD PHOSPHATE 10 MG/1 ML VIAL IVPB SCH ×2 (11:41→21:18)
[2017-03-20] MEDS: ACETAMINOPHEN 500 MG TABLET (FP) PO SCH ×2 (11:42→21:17)
[2017-03-20] MEDS: IMMUNE GLOBULIN (IgG) 10 GM VIAL IVPB SCH ×2 (11:42→22:42)
[2017-03-20] MEDS ORDERED: ALBUTEROL SO4 18 GM HFA INHALER IH PRN (11:58)
--- NOTE | 2017-03-20 12:00 | PN ---
Progress Note, Physician Chief Complaint: Ms Painting says she is feeling well. She denies cp, sob, n/v. - Current Medication List Current Medications: Active Medications Acetaminophen (Tylenol -) 500 mg PO DAILY [facility] Last Admin: 03/20/17 11:42 Dose: Not Given Albuterol Sulfate (Ventolin Hfa Inhaler -) 2 puff IH Q4H PRN PRN Reason: SHORT OF BREATH/WHEEZING Albuterol/Ipratropium (Duoneb -) 1 amp NEB Q6H PRN PRN Reason: SHORTNESS OF BREATH Allopurinol (Zyloprim -) 150 mg PO DAILY [facility] Last Admin: 03/20/17 11:08 Dose: 150 mg Alprazolam (Xanax -) 0.5 mg PO Q8H PRN PRN Reason: ANXIETY Last Admin: 03/20/17 11:32 Dose: 0.5 mg Amlodipine Besylate (Norvasc -) 5 mg PO DAILY [facility] Last Admin: 03/20/17 11:08 Dose: 5 mg Calcium Carbonate (Calcium Carbonate -) 648 mg PO BID [facility] Last Admin: 03/20/17 11:08 Dose: 648 mg Dexamethasone Sodium Phosphate (Decadron Injection -) 40 mg IVPB DAILY [facility] Last Admin: 03/20/17 11:41 Dose: Not Given Diphenhydramine HCl (Benadryl Injection -) 25 mg IVPUSH DAILY [facility] Last Admin: 03/20/17 11:41 Dose: Not Given Docusate Sodium (Colace -) 100 mg PO BID [facility] Last Admin: 03/20/17 11:08 Dose: 100 mg Glipizide (Glucotrol -) 10 mg PO BID@0700,1630 [facility] Immune Globulin (Gamunex -) 40 gm IVPB DAILY [facility] Stop: 03/21/17 23:59 Last Admin: 03/20/17 11:42 Dose: Not Given Insulin Aspart (Novolog Vial Sliding Scale -) 1 vial SQ ACHS [facility] PRN Reason: Protocol Last Admin: 03/20/17 11:33 Dose: 14 units Insulin Detemir (Levemir Vial) 10 units SQ HS [facility] Last Admin: 03/19/17 21:52 Dose: 10 units Morphine Sulfate (Ms Contin -) 60 mg PO Q8H [facility] Last Admin: 03/20/17 04:41 Dose: 60 mg Morphine Sulfate (Msir -) 15 mg PO Q6H PRN PRN Reason: PAIN Last Admin: 03/20/17 11:09 Dose: 15 mg Pantoprazole Sodium (Protonix -) 40 mg PO DAILY [facility] Last Admin: 03/20/17 11:08 Dose: 40 mg Sertraline HCl (Zoloft -) 25 mg PO DAILY [facility] Last Admin: 03/20/17 11:08 Dose: 25 mg Sitagliptin Phosphate (Januvia -) 50 mg PO DAILY@0700 [facility] - Objective Vital Signs: Vital Signs Temperature 36.7 C 03/20/17 11:00 Pulse Rate 80 03/20/17 11:00 Respiratory Rate 20 03/20/17 11:00 Blood Pressure 130/50 03/20/17 11:00 O2 Sat by Pulse Oximetry (%) 94 L 03/19/17 20:49 Constitutional: Yes: No Distress, Calm, Obese Cardiovascular: Yes: Regular Rate and Rhythm. No: Gallop, Murmur, Rub Respiratory: Yes: Regular, CTA Bilaterally. No: Rales, Rhonchi, Wheezes Gastrointestinal: Yes: Normal Bowel Sounds, Soft. No: Distention, Tenderness Extremities: Yes: WNL Edema: No Labs: CBC, BMP 03/20/17 05:35 03/20/17 05:35 INR, PTT INR 1.12 (0.82-1.09) 03/18/17 10:10 Problem List - Problems (1) Acute ITP Assessment/Plan: -appreciate hematology assistance -continue IVIg and decadron -day 3/5 -platelets much improved Code(s): D69.3 - IMMUNE THROMBOCYTOPENIC PURPURA (2) Chronic kidney disease Assessment/Plan: -at baseline Code(s): N18.9 - CHRONIC KIDNEY DISEASE, UNSPECIFIED Qualifiers: (3) Diabetes mellitus Assessment/Plan: -elevated secondary to steroids and not on oral hypoglycemics -restart januvia and glipizide today -continue levemir -diabetic diet -FSBS and SSI Code(s): E11.9 - TYPE 2 DIABETES MELLITUS WITHOUT COMPLICATIONS (4) HTN (hypertension) Assessment/Plan: -continue norvasc -controlled Code(s): I10 - ESSENTIAL (PRIMARY) HYPERTENSION Qualifiers: (5) Chronic pain Assessment/Plan: -continue MS contin -controlled Code(s): G89.29 - OTHER CHRONIC PAIN Qualifiers: Chronic pain type: chronic pain syndrome Qualified Code(s): G89.4 - Chronic pain syndrome; G89.4 - Chronic pain syndrome
[2017-03-20] MEDS: sitaGLIPtin PHOSPHATE 50 MG TABLET PO SCH (14:26)
--- NOTE | 2017-03-20 15:49 | PN ---
Progress Note (short form) - Note Progress Note: Patient seen and examined Denies any complaints Last Vital Signs Temp Pulse Resp BP Pulse Ox 97.6 F 81 20 121/48 92 L 03/20/17 15:39 03/20/17 15:39 03/20/17 15:39 03/20/17 15:39 03/20/17 11:00 Cor: RSR, No murmurs, No gallops Lungs: Clear to P&A Abd: Soft, Normal bowel sounds, No organomegaly Ext:No significant edema Skin: No rashes, Integument intact Abnormal Lab Results 03/20/17 03/20/17 05:35 05:35 RBC 3.41 L Hgb 8.4 L Hct 26.4 L MCV 77.5 L MCH 24.5 L MCHC 31.6 L RDW 18.7 H Plt Count 105 L D Neutrophils % 91.1 H Lymphocytes % 7.1 L Monocytes % 1.6 L Sodium 134 L BUN 28 H D Creatinine 1.4 H Random Glucose 280 H D Total Protein 8.8 H Albumin 3.0 L Active Medications Generic Name Dose Route Start Last Admin Trade Name Freq PRN Reason Stop Dose Admin Acetaminophen 500 mg 03/20/17 21:00 Tylenol - PO DAILY@2100 [facility] Albuterol Sulfate 2 puff 03/20/17 11:58 Ventolin Hfa Inhaler - IH Q4H PRN SHORT OF BREATH/WHEEZING Allopurinol 150 mg 03/18/17 10:00 03/20/17 11:08 Zyloprim - PO 150 mg DAILY PRASHANT Administration Alprazolam 0.5 mg 03/18/17 08:17 03/20/17 11:32 Xanax - PO 0.5 mg Q8H PRN Administration ANXIETY Amlodipine Besylate 5 mg 03/18/17 10:00 03/20/17 11:08 Norvasc - PO 5 mg DAILY PRASHANT Administration Calcium Carbonate 648 mg 03/18/17 10:00 03/20/17 11:08 Calcium Carbonate - PO 648 mg BID PRASHANT Administration Dexamethasone Sodium Phosphate 40 mg 03/20/17 21:00 Decadron Injection - IVPB DAILY@2100 [facility] Diphenhydramine HCl 25 mg 03/20/17 21:00 Benadryl Injection - IVPUSH DAILY@2100 [facility] Docusate Sodium 100 mg 03/18/17 10:00 03/20/17 11:08 Colace - PO 100 mg BID PRASHANT Administration Glipizide 10 mg 03/20/17 16:30 Glucotrol - PO BID@0700,1630 [facility] Immune Globulin 40 gm 03/19/17 22:00 03/20/17 11:42 Gamunex - IVPB 03/21/17 23:59 Not Given DAILY PRASHANT Insulin Aspart 1 vial 03/19/17 11:00 03/20/17 11:33 Novolog Vial Sliding Scale - SQ 14 units ACHS PRASHANT Administration Protocol Insulin Detemir 10 units 03/19/17 22:00 03/19/17 21:52 Levemir Vial SQ 10 units HS PRASHANT Administration Morphine Sulfate 60 mg 03/18/17 13:15 03/20/17 14:26 Ms Contin - PO 60 mg Q8H PRASHANT Administration Morphine Sulfate 15 mg 03/18/17 13:09 03/20/17 11:09 Msir - PO 15 mg Q6H PRN Administration PAIN Pantoprazole Sodium 40 mg 03/18/17 10:00 03/20/17 11:08 Protonix - PO 40 mg DAILY PRASHANT Administration Sertraline HCl 25 mg 03/18/17 10:00 03/20/17 11:08 Zoloft - PO 25 mg DAILY PRASHANT Administration Sitagliptin Phosphate 50 mg 03/20/17 13:00 03/20/17 14:26 Januvia - PO 50 mg DAILY@0700 PRASHANT Administration A/P 66 y/o patient with h/o mantle cell lymphoma, ITP On IVIG/steroids , reponding well ? ibrutinib in future supportive care
[2017-03-20] MEDS ORDERED: glipiZIDE 5 MG TABLET (FP) ONE (16:51)
[2017-03-20] MEDS: glipiZIDE 10 MG TABLET (FP) PO SCH (16:59)
[2017-03-20] MEDS ORDERED: DEXTROSE 5%-LACTATED RINGERS 1,000 ML IV SCH (19:00)
[2017-03-20] MEDS ORDERED: INSULIN (NOVOLOG) ASPART 100 UNITS/ML 10ML VIAL ONE (21:24)
[2017-03-20] MEDS: INSULIN DETEMIR 100 UNITS/ML MDV SQ SCH (21:34)
[2017-03-21] MEDS: ALPRAZolam 0.25 MG TABLET PO PRN (00:34)
[2017-03-21] MEDS ORDERED: glipiZIDE 5 MG TABLET (FP) ONE ×2 (05:58→16:47)
[2017-03-21] MEDS: morphine SO4 SUSTAINED ACTING 30 MG TABLET.SA PO SCH ×3 (06:04→21:13)
[2017-03-21] MEDS: sitaGLIPtin PHOSPHATE 50 MG TABLET PO SCH (06:04)
[2017-03-21] MEDS: glipiZIDE 10 MG TABLET (FP) PO SCH ×2 (06:04→17:25)
[2017-03-21] MEDS: INSULIN SLIDING SCALE (NOVOLOG) 1 VIAL SQ SCH ×4 (06:06→21:14)
[2017-03-21 07:49] LABS: BASOPHIL 0.3 % (0-2.0); MCH 24.7 pg (25.7-33.7); MCHC 31.4 g/dl (32.0-36.0); MEAN CELL VOLUME 78.5 fl (80-96); MEAN PLT VOLUME 9.3 fl (7.5-11.1); NEUTROPHILS 89.8 % (42.8-82.8); PLATELET COUNT 148 K/MM3 (134-434); RDW 18.5 % (11.6-15.6); WHITE BLOOD COUNT 9.2 K/mm3 (4.0-10.0)
[2017-03-21 08:13] LABS: ANION GAP 5 (8-16); CALCIUM 8.4 mg/dL (8.5-10.1); CO2 29 mmol/L (21-32); CREATININE 1.5 mg/dL (0.55-1.02); GLUCOSE,RANDOM 173 mg/dL (74-106); MAGNESIUM 2.3 mg/dL (1.8-2.4); PHOSPHOROUS 3.5 mg/dL (2.5-4.9)
[2017-03-21] MEDS ORDERED: INSULIN (NOVOLOG) ASPART 100 UNITS/ML 10ML VIAL ONE (11:04)
[2017-03-21] MEDS ORDERED: PT OWN MED DRAWER 7, Y5N ONE ×2 (11:05→20:28)
[2017-03-21] MEDS: SERTRALINE HCL 25 MG TABLET (FP) PO SCH (11:11)
[2017-03-21] MEDS: ALLOPURINOL 100 MG TABLET (FP) PO SCH (11:12)
[2017-03-21] MEDS: PANTOPRAZOLE 40 MG TABLET (FP) PO SCH (11:12)
[2017-03-21] MEDS: CALCIUM CARBONATE 650 MG TABLET PO SCH ×2 (11:13→21:12)
[2017-03-21] MEDS: DOCUSATE SODIUM 100 MG CAPSULE (FP) PO SCH ×2 (11:13→21:13)
[2017-03-21] MEDS: amLODIPine BESYLATE 5 MG TABLET (FP) PO SCH (11:13)
--- NOTE | 2017-03-21 11:25 | PN ---
Progress Note, Physician Chief Complaint: Ms Painting says she is feeling well. She denies cp, sob, n/v. - Current Medication List Current Medications: Active Medications Acetaminophen (Tylenol -) 500 mg PO DAILY@2100 [facility] Last Admin: 03/20/17 21:17 Dose: 500 mg Albuterol Sulfate (Ventolin Hfa Inhaler -) 2 puff IH Q4H PRN PRN Reason: SHORT OF BREATH/WHEEZING Allopurinol (Zyloprim -) 150 mg PO DAILY [facility] Last Admin: 03/21/17 11:12 Dose: 150 mg Amlodipine Besylate (Norvasc -) 5 mg PO DAILY [facility] Last Admin: 03/21/17 11:13 Dose: 5 mg Calcium Carbonate (Calcium Carbonate -) 648 mg PO BID [facility] Last Admin: 03/21/17 11:13 Dose: 648 mg Dexamethasone Sodium Phosphate (Decadron Injection -) 40 mg IVPB DAILY@2100 [facility] Last Admin: 03/20/17 21:18 Dose: 40 mg Diphenhydramine HCl (Benadryl Injection -) 25 mg IVPUSH DAILY@2100 [facility] Last Admin: 03/20/17 21:18 Dose: 25 mg Docusate Sodium (Colace -) 100 mg PO BID [facility] Last Admin: 03/21/17 11:13 Dose: 100 mg Glipizide (Glucotrol -) 10 mg PO BID@0700,1630 [facility] Last Admin: 03/21/17 06:04 Dose: 10 mg Immune Globulin (Gamunex -) 40 gm IVPB [facility] Stop: 03/22/17 22:01 Last Admin: 03/20/17 22:42 Dose: 40 gm Insulin Aspart (Novolog Vial Sliding Scale -) 1 vial SQ [facility] PRN Reason: Protocol Last Admin: 03/21/17 06:06 Dose: 4 units Insulin Detemir (Levemir Vial) 10 units SQ [facility] Last Admin: 03/20/17 21:34 Dose: 10 units Morphine Sulfate (Ms Contin -) 60 mg PO Q8H [facility] Last Admin: 03/21/17 06:04 Dose: 60 mg Morphine Sulfate (Msir -) 15 mg PO Q6H PRN PRN Reason: PAIN Last Admin: 03/20/17 23:19 Dose: 15 mg Pantoprazole Sodium (Protonix -) 40 mg PO DAILY [facility] Last Admin: 03/21/17 11:12 Dose: 40 mg Sertraline HCl (Zoloft -) 25 mg PO DAILY [facility] Last Admin: 03/21/17 11:11 Dose: 25 mg Sitagliptin Phosphate (Januvia -) 50 mg PO DAILY@0700 [facility] Last Admin: 03/21/17 06:04 Dose: 50 mg - Objective Vital Signs: Vital Signs Temperature 36.4 C 03/21/17 06:41 Pulse Rate 71 03/21/17 06:41 Respiratory Rate 20 03/21/17 06:41 Blood Pressure 120/50 03/21/17 06:41 O2 Sat by Pulse Oximetry (%) 96 03/20/17 21:00 Constitutional: Yes: No Distress, Calm, Obese Cardiovascular: Yes: Regular Rate and Rhythm. No: Gallop, Murmur, Rub Respiratory: Yes: Regular, CTA Bilaterally. No: Rales, Rhonchi, Wheezes Gastrointestinal: Yes: Normal Bowel Sounds, Soft. No: Distention, Tenderness Extremities: Yes: WNL Edema: No Labs: CBC, BMP 03/21/17 06:00 03/21/17 06:00 INR, PTT INR 1.12 (0.82-1.09) 03/18/17 10:10 Problem List - Problems (1) Acute ITP Code(s): D69.3 - IMMUNE THROMBOCYTOPENIC PURPURA (2) Chronic kidney disease Code(s): N18.9 - CHRONIC KIDNEY DISEASE, UNSPECIFIED Qualifiers: (3) Diabetes mellitus Code(s): E11.9 - TYPE 2 DIABETES MELLITUS WITHOUT COMPLICATIONS (4) HTN (hypertension) Code(s): I10 - ESSENTIAL (PRIMARY) HYPERTENSION Qualifiers: (5) Chronic pain Code(s): G89.29 - OTHER CHRONIC PAIN Qualifiers: Chronic pain type: chronic pain syndrome Qualified Code(s): G89.4 - Chronic pain syndrome; G89.4 - Chronic pain syndrome Assessment/Plan (1) Acute ITP Assessment/Plan: -appreciate hematology assistance -continue IVIg and decadron -day 4/5 -platelets continues to improve and now normal Code(s): D69.3 - IMMUNE THROMBOCYTOPENIC PURPURA (2) Chronic kidney disease Assessment/Plan: -at baseline Code(s): N18.9 - CHRONIC KIDNEY DISEASE, UNSPECIFIED Qualifiers: (3) Diabetes mellitus Assessment/Plan: -improved control with addition of oral hypoglycemics -continue current management Code(s): E11.9 - TYPE 2 DIABETES MELLITUS WITHOUT COMPLICATIONS (4) HTN (hypertension) Assessment/Plan: -continue norvasc -controlled Code(s): I10 - ESSENTIAL (PRIMARY) HYPERTENSION Qualifiers: (5) Chronic pain Assessment/Plan: -continue MS contin -controlled Code(s): G89.29 - OTHER CHRONIC PAIN Qualifiers: Chronic pain type: chronic pain syndrome Qualified Code(s): G89.4 - Chronic pain syndrome; G89.4 - Chronic pain syndrome
[2017-03-21] MEDS: morphine SULFATE IMMEDIATE RELEASE 30 MG TAB PO PRN (11:32)
[2017-03-21] MEDS: ALBUTEROL SO4 18 GM HFA INHALER IH SCH (11:45)
--- NOTE | 2017-03-21 15:49 | PN ---
Progress Note (short form) - Note Progress Note: Patient seen and examined Denies any complaints Cor: RSR, No murmurs, No gallops Lungs: Clear to P&A Abd: Soft, Normal bowel sounds, No organomegaly Ext:No significant edema Skin: No rashes, Integument intact Temp Pulse Resp BP Pulse Ox 98.6 F 73 20 120/55 95 03/21/17 15:06 03/21/17 15:06 03/21/17 15:06 03/21/17 15:06 03/21/17 11:45 CBC, BMP 03/21/17 06:00 03/21/17 06:00 Current Medications Generic Name Dose Route Start Last Admin Trade Name Freq PRN Reason Stop Dose Admin Acetaminophen 500 mg 03/20/17 21:00 03/20/17 21:17 Tylenol - PO 500 mg DAILY@2100 PRASHANT Administration Albuterol Sulfate 2 puff 03/20/17 11:58 Ventolin Hfa Inhaler - IH Q4H PRN SHORT OF BREATH/WHEEZING Allopurinol 150 mg 03/18/17 10:00 03/21/17 11:12 Zyloprim - PO 150 mg DAILY PRASHANT Administration Amlodipine Besylate 5 mg 03/18/17 10:00 03/21/17 11:13 Norvasc - PO 5 mg DAILY PRASHANT Administration Calcium Carbonate 648 mg 03/18/17 10:00 03/21/17 11:13 Calcium Carbonate - PO 648 mg BID PRASHANT Administration Dexamethasone Sodium Phosphate 40 mg 03/20/17 21:00 03/20/17 21:18 Decadron Injection - IVPB 40 mg DAILY@2100 PRASHANT Administration Diphenhydramine HCl 25 mg 03/20/17 21:00 03/20/17 21:18 Benadryl Injection - IVPUSH 25 mg DAILY@2100 PRASHANT Administration Docusate Sodium 100 mg 03/18/17 10:00 03/21/17 11:13 Colace - PO 100 mg BID PRASHANT Administration Glipizide 10 mg 03/20/17 16:30 03/21/17 06:04 Glucotrol - PO 10 mg BID@0700,1630 PRASHANT Administration Immune Globulin 40 gm 03/20/17 22:15 03/20/17 22:42 Gamunex - IVPB 03/22/17 22:01 40 gm HS PRASHANT Administration Insulin Aspart 1 vial 03/19/17 11:00 03/21/17 12:04 Novolog Vial Sliding Scale - SQ 10 units ACHS PRASHANT Administration Protocol Insulin Detemir 10 units 03/19/17 22:00 03/20/17 21:34 Levemir Vial SQ 10 units HS PRASHANT Administration Morphine Sulfate 60 mg 03/18/17 13:15 03/21/17 14:18 Ms Contin - PO 60 mg Q8H PRASHANT Administration Morphine Sulfate 15 mg 03/18/17 13:09 03/21/17 11:32 Msir - PO 15 mg Q6H PRN Administration PAIN Pantoprazole Sodium 40 mg 03/18/17 10:00 03/21/17 11:12 Protonix - PO 40 mg DAILY PRASHANT Administration Sertraline HCl 25 mg 03/18/17 10:00 03/21/17 11:11 Zoloft - PO 25 mg DAILY PRASHANT Administration Sitagliptin Phosphate 50 mg 03/20/17 13:00 03/21/17 06:04 Januvia - PO 50 mg DAILY@0700 PRASHANT Administration 66 y/o patient with h/o mantle cell lymphoma, ITP On IVIG/steroids , responding well likely dc on . will dc on steroid taper supportive care
[2017-03-21] MEDS: DEXAMETHASONE SOD PHOSPHATE 10 MG/1 ML VIAL IVPB SCH (21:12)
[2017-03-21] MEDS: ACETAMINOPHEN 500 MG TABLET (FP) PO SCH (21:12)
[2017-03-21] MEDS: INSULIN DETEMIR 100 UNITS/ML MDV SQ SCH (21:14)
[2017-03-21] MEDS: IMMUNE GLOBULIN (IgG) 10 GM VIAL IVPB SCH (22:12)
[2017-03-22] MEDS: ALPRAZolam 0.25 MG TABLET PO PRN ×2 (00:05→12:50)
[2017-03-22] MEDS ORDERED: glipiZIDE 5 MG TABLET (FP) ONE ×2 (05:42→16:09)
[2017-03-22] MEDS: sitaGLIPtin PHOSPHATE 50 MG TABLET PO SCH (06:11)
[2017-03-22] MEDS: glipiZIDE 10 MG TABLET (FP) PO SCH ×2 (06:11→17:17)
[2017-03-22] MEDS: morphine SO4 SUSTAINED ACTING 30 MG TABLET.SA PO SCH ×3 (06:11→21:30)
[2017-03-22] MEDS: INSULIN SLIDING SCALE (NOVOLOG) 1 VIAL SQ SCH ×4 (06:12→22:48)
[2017-03-22 07:39] LABS: BASOPHIL 0.5 % (0-2.0); MCH 24.4 pg (25.7-33.7); MCHC 31.9 g/dl (32.0-36.0); MEAN CELL VOLUME 76.6 fl (80-96); MEAN PLT VOLUME 9.1 fl (7.5-11.1); NEUTROPHILS 90.9 % (42.8-82.8); PLATELET COUNT 187 K/MM3 (134-434); RDW 18.4 % (11.6-15.6); WHITE BLOOD COUNT 7.7 K/mm3 (4.0-10.0)
[2017-03-22 08:05] LABS: ANION GAP 7 (8-16); CO2 28 mmol/L (21-32); CREATININE 1.5 mg/dL (0.55-1.02); GLUCOSE,RANDOM 273 mg/dL (74-106); MAGNESIUM 2.3 mg/dL (1.8-2.4); PHOSPHOROUS 3.7 mg/dL (2.5-4.9)
[2017-03-22] MEDS: ALLOPURINOL 100 MG TABLET (FP) PO SCH (10:09)
[2017-03-22] MEDS: DOCUSATE SODIUM 100 MG CAPSULE (FP) PO SCH ×2 (10:09→21:31)
[2017-03-22] MEDS: PANTOPRAZOLE 40 MG TABLET (FP) PO SCH (10:09)
[2017-03-22] MEDS: SERTRALINE HCL 25 MG TABLET (FP) PO SCH (10:10)
[2017-03-22] MEDS: amLODIPine BESYLATE 5 MG TABLET (FP) PO SCH (10:13)
[2017-03-22] MEDS ORDERED: PT OWN MED DRAWER 7, Y5N ONE ×2 (12:10→21:12)
[2017-03-22] MEDS: CALCIUM CARBONATE 650 MG TABLET PO SCH ×2 (12:12→21:30)
--- NOTE | 2017-03-22 12:19 | PN ---
Progress Note, Physician Chief Complaint: Ms Painting says she is feeling well. She denies cp, sob, n/v. - Current Medication List Current Medications: Active Medications Acetaminophen (Tylenol -) 500 mg PO DAILY@2100 [facility] Last Admin: 03/21/17 21:12 Dose: 500 mg Albuterol Sulfate (Ventolin Hfa Inhaler -) 2 puff IH Q4H PRN PRN Reason: SHORT OF BREATH/WHEEZING Allopurinol (Zyloprim -) 150 mg PO DAILY [facility] Last Admin: 03/22/17 10:09 Dose: 150 mg Alprazolam (Xanax -) 0.5 mg PO Q8H PRN PRN Reason: ANXIETY Last Admin: 03/22/17 00:05 Dose: 0.5 mg Amlodipine Besylate (Norvasc -) 5 mg PO DAILY [facility] Last Admin: 03/22/17 10:13 Dose: 5 mg Calcium Carbonate (Calcium Carbonate -) 648 mg PO BID [facility] Last Admin: 03/22/17 12:12 Dose: 648 mg Dexamethasone Sodium Phosphate (Decadron Injection -) 40 mg IVPB DAILY@2099 [facility] Last Admin: 03/21/17 21:12 Dose: 40 mg Diphenhydramine HCl (Benadryl Injection -) 25 mg IVPUSH DAILY@2100 [facility] Last Admin: 03/21/17 21:12 Dose: 25 mg Docusate Sodium (Colace -) 100 mg PO BID [facility] Last Admin: 03/22/17 10:09 Dose: 100 mg Glipizide (Glucotrol -) 10 mg PO BID@0700,1630 [facility] Last Admin: 03/22/17 06:11 Dose: 10 mg Immune Globulin (Gamunex -) 40 gm IVPB [facility] Stop: 03/22/17 22:01 Last Admin: 03/21/17 22:12 Dose: 40 gm Insulin Aspart (Novolog Vial Sliding Scale -) 1 vial SQ [facility] PRN Reason: Protocol Last Admin: 03/22/17 12:14 Dose: 10 units Insulin Detemir (Levemir Vial) 10 units SQ [facility] Last Admin: 03/21/17 21:14 Dose: 10 units Morphine Sulfate (Ms Contin -) 60 mg PO Q8H [facility] Last Admin: 03/22/17 06:11 Dose: 60 mg Morphine Sulfate (Msir -) 15 mg PO Q6H PRN PRN Reason: PAIN Last Admin: 03/21/17 11:32 Dose: 15 mg Pantoprazole Sodium (Protonix -) 40 mg PO DAILY [facility] Last Admin: 03/22/17 10:09 Dose: 40 mg Sertraline HCl (Zoloft -) 25 mg PO DAILY [facility] Last Admin: 03/22/17 10:10 Dose: 25 mg Sitagliptin Phosphate (Januvia -) 50 mg PO DAILY@0700 [facility] Last Admin: 03/22/17 06:11 Dose: 50 mg - Objective Vital Signs: Vital Signs Temperature 36.6 C 03/22/17 05:30 Pulse Rate 77 03/22/17 05:30 Respiratory Rate 18 03/22/17 05:30 Blood Pressure 124/60 03/22/17 05:30 O2 Sat by Pulse Oximetry (%) 96 03/21/17 21:00 Constitutional: Yes: No Distress, Calm, Obese Cardiovascular: Yes: Regular Rate and Rhythm. No: Gallop, Murmur, Rub Respiratory: Yes: Regular, CTA Bilaterally. No: Rales, Rhonchi, Wheezes Gastrointestinal: Yes: Normal Bowel Sounds, Soft. No: Distention, Tenderness Extremities: Yes: WNL Edema: No Labs: CBC, BMP 03/22/17 06:00 03/22/17 06:00 INR, PTT INR 1.12 (0.82-1.09) 03/18/17 10:10 Problem List - Problems (1) Acute ITP Code(s): D69.3 - IMMUNE THROMBOCYTOPENIC PURPURA (2) Chronic kidney disease Code(s): N18.9 - CHRONIC KIDNEY DISEASE, UNSPECIFIED Qualifiers: (3) Diabetes mellitus Code(s): E11.9 - TYPE 2 DIABETES MELLITUS WITHOUT COMPLICATIONS (4) HTN (hypertension) Code(s): I10 - ESSENTIAL (PRIMARY) HYPERTENSION Qualifiers: (5) Chronic pain Code(s): G89.29 - OTHER CHRONIC PAIN Qualifiers: Chronic pain type: chronic pain syndrome Qualified Code(s): G89.4 - Chronic pain syndrome; G89.4 - Chronic pain syndrome Assessment/Plan (1) Acute ITP Assessment/Plan: -appreciate hematology assistance -continue IVIg and decadron -day 5/5 -platelets continues to improve and now normal Code(s): D69.3 - IMMUNE THROMBOCYTOPENIC PURPURA (2) Chronic kidney disease Assessment/Plan: -at baseline Code(s): N18.9 - CHRONIC KIDNEY DISEASE, UNSPECIFIED Qualifiers: (3) Diabetes mellitus Assessment/Plan: -continue current regimen -will get back to baseline once steroids are tapered Code(s): E11.9 - TYPE 2 DIABETES MELLITUS WITHOUT COMPLICATIONS (4) HTN (hypertension) Assessment/Plan: -continue norvasc -controlled Code(s): I10 - ESSENTIAL (PRIMARY) HYPERTENSION Qualifiers: (5) Chronic pain Assessment/Plan: -continue MS contin -controlled Code(s): G89.29 - OTHER CHRONIC PAIN Qualifiers: Chronic pain type: chronic pain syndrome Qualified Code(s): G89.4 - Chronic pain syndrome; G89.4 - Chronic pain syndrome
--- NOTE | 2017-03-22 13:17 | PN ---
Progress Note (short form) - Note Progress Note: Patient seen and examined she feels well, a bit concerned that she is thoracic surgery appt. Denies any complaints Cor: RSR, No murmurs, No gallops Lungs: Clear to P&A Abd: Soft, Normal bowel sounds, No organomegaly Ext:No significant edema Skin: No rashes, Integument intact CBC, BMP 03/22/17 06:00 03/22/17 06:00 Current Medications Generic Name Dose Route Start Last Admin Trade Name Freq PRN Reason Stop Dose Admin Acetaminophen 500 mg 03/20/17 21:00 03/21/17 21:12 Tylenol - PO 500 mg DAILY@2100 PRASHANT Administration Albuterol Sulfate 2 puff 03/20/17 11:58 Ventolin Hfa Inhaler - IH Q4H PRN SHORT OF BREATH/WHEEZING Allopurinol 150 mg 03/18/17 10:00 03/22/17 10:09 Zyloprim - PO 150 mg DAILY PRASHANT Administration Alprazolam 0.5 mg 03/21/17 23:59 03/22/17 12:50 Xanax - PO 0.5 mg Q8H PRN Administration ANXIETY Amlodipine Besylate 5 mg 03/18/17 10:00 03/22/17 10:13 Norvasc - PO 5 mg DAILY PRASHANT Administration Calcium Carbonate 648 mg 03/18/17 10:00 03/22/17 12:12 Calcium Carbonate - PO 648 mg BID PRASHANT Administration Dexamethasone Sodium Phosphate 40 mg 03/20/17 21:00 03/21/17 21:12 Decadron Injection - IVPB 40 mg DAILY@2100 PRASHANT Administration Diphenhydramine HCl 25 mg 03/20/17 21:00 03/21/17 21:12 Benadryl Injection - IVPUSH 25 mg DAILY@2100 PRASHANT Administration Docusate Sodium 100 mg 03/18/17 10:00 03/22/17 10:09 Colace - PO 100 mg BID PRASHANT Administration Glipizide 10 mg 03/20/17 16:30 03/22/17 06:11 Glucotrol - PO 10 mg BID@0700,1630 PRASHANT Administration Immune Globulin 40 gm 03/20/17 22:15 03/21/17 22:12 Gamunex - IVPB 03/22/17 22:01 40 gm HS PRASHANT Administration Insulin Aspart 1 vial 03/19/17 11:00 03/22/17 12:14 Novolog Vial Sliding Scale - SQ 10 units ACHS PRASHANT Administration Protocol Insulin Detemir 10 units 03/19/17 22:00 03/21/17 21:14 Levemir Vial SQ 10 units HS PRASHANT Administration Morphine Sulfate 60 mg 03/18/17 13:15 03/22/17 12:50 Ms Contin - PO 60 mg Q8H PRASHANT Administration Morphine Sulfate 15 mg 03/18/17 13:09 03/21/17 11:32 Msir - PO 15 mg Q6H PRN Administration PAIN Pantoprazole Sodium 40 mg 03/18/17 10:00 03/22/17 10:09 Protonix - PO 40 mg DAILY PRASHANT Administration Sertraline HCl 25 mg 03/18/17 10:00 03/22/17 10:10 Zoloft - PO 25 mg DAILY PRASHANT Administration Sitagliptin Phosphate 50 mg 03/20/17 13:00 03/22/17 06:11 Januvia - PO 50 mg DAILY@0700 PRASHANT Administration 66 y/o patient with h/o mantle cell lymphoma, ITP On IVIG/steroids , responding well dc on . will dc on steroid taper, start prednisone 60mg ( I have discussed in detail with her about may be watching off steroid taper as she responded well with dex/ IVig combination, understandably she is concerned that ITP may relapse quickly) . For OP taper. She mentioned her CBC is monitored weekly, she has once a week home CBC draw set up. supportive care
[2017-03-22] MEDS: morphine SULFATE IMMEDIATE RELEASE 30 MG TAB PO PRN (16:20)
[2017-03-22] MEDS: ACETAMINOPHEN 500 MG TABLET (FP) PO SCH (20:55)
[2017-03-22] MEDS: DEXAMETHASONE SOD PHOSPHATE 10 MG/1 ML VIAL IVPB SCH (21:28)
[2017-03-22] MEDS: INSULIN DETEMIR 100 UNITS/ML MDV SQ SCH (21:35)
[2017-03-22] MEDS: IMMUNE GLOBULIN (IgG) 10 GM VIAL IVPB SCH (22:21)
[2017-03-23] MEDS: ALPRAZolam 0.25 MG TABLET PO PRN ×2 (00:27→11:07)
[2017-03-23 05:44] VITALS: BP 126/63; PULSE 59; TEMP 97.8
[2017-03-23] MEDS ORDERED: glipiZIDE 5 MG TABLET (FP) ONE (05:48)
[2017-03-23] MEDS: morphine SO4 SUSTAINED ACTING 30 MG TABLET.SA PO SCH ×2 (06:19→13:29)
[2017-03-23] MEDS: glipiZIDE 10 MG TABLET (FP) PO SCH (06:20)
[2017-03-23] MEDS: sitaGLIPtin PHOSPHATE 50 MG TABLET PO SCH (06:21)
[2017-03-23] MEDS: INSULIN SLIDING SCALE (NOVOLOG) 1 VIAL SQ SCH ×2 (06:21→12:13)
[2017-03-23 07:46] LABS: BASOPHIL 0.2 % (0-2.0); MCH 24.3 pg (25.7-33.7); MCHC 31.9 g/dl (32.0-36.0); MEAN PLT VOLUME 8.7 fl (7.5-11.1); NEUTROPHILS 90.5 % (42.8-82.8); PLATELET COUNT 244 K/MM3 (134-434); RDW 18.1 % (11.6-15.6); WHITE BLOOD COUNT 7.1 K/mm3 (4.0-10.0)
[2017-03-23] MEDS ORDERED: PT OWN MED DRAWER 7, Y5N ONE (09:10)
[2017-03-23] MEDS: SERTRALINE HCL 25 MG TABLET (FP) PO SCH (09:22)
[2017-03-23] MEDS: ALLOPURINOL 100 MG TABLET (FP) PO SCH (09:22)
[2017-03-23] MEDS: amLODIPine BESYLATE 5 MG TABLET (FP) PO SCH (09:23)
[2017-03-23] MEDS: PANTOPRAZOLE 40 MG TABLET (FP) PO SCH (09:23)
[2017-03-23] MEDS: DOCUSATE SODIUM 100 MG CAPSULE (FP) PO SCH (09:23)
[2017-03-23] MEDS ORDERED: CALCIUM CARBONATE 650 MG TABLET PO SCH (10:00)
--- NOTE | 2017-03-23 10:19 | DS ---
Physical Examination Vital Signs: Vital Signs Temperature 36.6 C 03/23/17 05:42 Pulse Rate 59 L 03/23/17 05:42 Respiratory Rate 20 03/23/17 05:42 Blood Pressure 126/63 03/23/17 05:42 O2 Sat by Pulse Oximetry (%) 96 03/22/17 21:00 Constitutional: Yes: No Distress, Calm, Obese Cardiovascular: Yes: Regular Rate and Rhythm. No: Gallop, Murmur, Rub Respiratory: Yes: Regular, CTA Bilaterally. No: Rales, Rhonchi, Wheezes Gastrointestinal: Yes: Normal Bowel Sounds, Soft. No: Distention, Tenderness Extremities: Yes: WNL Edema: No Labs: CBC, BMP 03/23/17 06:00 03/22/17 06:00 Discharge Summary Reason For Visit: ACUTE ITP Current Active Problems Acute ITP (Acute) Chronic pain (Acute) DVT prophylaxis (Acute) Hospital Course: (1) Acute ITP Code(s): D69.3 - IMMUNE THROMBOCYTOPENIC PURPURA (2) Chronic kidney disease Code(s): N18.9 - CHRONIC KIDNEY DISEASE, UNSPECIFIED Qualifiers: (3) Diabetes mellitus Code(s): E11.9 - TYPE 2 DIABETES MELLITUS WITHOUT COMPLICATIONS (4) HTN (hypertension) Code(s): I10 - ESSENTIAL (PRIMARY) HYPERTENSION Qualifiers: (5) Chronic pain Code(s): G89.29 - OTHER CHRONIC PAIN Qualifiers: Chronic pain type: chronic pain syndrome Qualified Code(s): G89.4 - Chronic pain syndrome; G89.4 - Chronic pain syndrome Ms Painting is a very pleasant 66 year old female who comes in with acute ITP. She was admitted and given IVIg and IV dexamethasone. Her platelets improved significantly and are now normal. She is safe to be discharged home on a steroid taper, she will take 60mg for 3 days and then decrease to 40mg. Further taper to be decided by hematology at her outpatient visit. Patient made aware of this and understood. Condition: Good - Instructions Diet, Activity, Other Instructions: resume previous diet and activity. Take 60mg prednisone for 3 days, then decrease to 40mg. Follow up with hematology/oncology for further taper of prednisone. Referrals: Subhash Mcfarlane MD [Primary Care Provider] - Blessing Ruiz MD [Staff Physician] - Disposition: HOME - Home Medications Comprehensive Discharge Medication List: Ambulatory Orders Sertraline HCl [Zoloft -] 25 mg PO DAILY 08/28/14 Alprazolam [Xanax] 0.5 mg PO Q8H PRN #0 tablet 09/10/14 Pantoprazole Sodium [Protonix -] 40 mg PO DAILY #0 tablet.ec 09/10/14 Glipizide [Glucotrol Xl] 10 mg PO Q6H PRN 11/12/15 Morphine Sulfate 15 mg PO QID PRN 03/31/16 Allopurinol [Zyloprim -] 150 mg PO DAILY #60 tablet 04/07/16 Albuterol Sulfate Inhaler - [Ventolin HFA Inhaler -] 1 - 2 inh PO Q4H 08/09/16 Calcium Carbonate 648 mg PO BID 08/09/16 Acetaminophen [Tylenol .Regular Strength -] 650 mg PO DAILY tablet 10/29/16 Amlodipine Besylate [Norvasc -] 5 mg PO DAILY #0 tablet 10/29/16 Docusate Sodium [Colace -] 100 mg PO BID #60 tab-cap 10/29/16 Morphine *Sr* [MS Contin -] 60 mg PO TID #120 tab.sa MDD 180mg 12/28/16 Sitagliptin Phosphate [Januvia] 50 mg PO DAILY 03/18/17 Prednisone [Deltasone -] 40 mg PO DAILY #60 tablet 03/23/17
[2017-03-23] MEDS ORDERED: INSULIN (NOVOLOG) ASPART 100 UNITS/ML 10ML VIAL ONE (12:12)
--- NOTE | 2017-03-23 14:13 | PN ---
Progress Note (short form) - Note Progress Note: Patient seen and examined ready for discharge Denies any complaints Cor: RSR, No murmurs, No gallops Lungs: Clear to P&A Abd: Soft, Normal bowel sounds, No organomegaly Ext:No significant edema Skin: No rashes, Integument intact CBC, BMP 03/23/17 06:00 03/22/17 06:00 Current Medications Generic Name Dose Route Start Last Admin Trade Name Freq PRN Reason Stop Dose Admin Acetaminophen 500 mg 03/20/17 21:00 03/22/17 20:55 Tylenol - PO 500 mg DAILY@2100 PRASHANT Administration Albuterol Sulfate 2 puff 03/20/17 11:58 Ventolin Hfa Inhaler - IH Q4H PRN SHORT OF BREATH/WHEEZING Allopurinol 150 mg 03/18/17 10:00 03/23/17 09:22 Zyloprim - PO 150 mg DAILY PRASHANT Administration Alprazolam 0.5 mg 03/21/17 23:59 03/23/17 11:07 Xanax - PO 0.5 mg Q8H PRN Administration ANXIETY Amlodipine Besylate 5 mg 03/18/17 10:00 03/23/17 09:23 Norvasc - PO 5 mg DAILY PRASHANT Administration Calcium Carbonate 650 mg 03/23/17 10:00 03/23/17 09:23 Calcium Carbonate - PO 650 mg BID PRASHANT Administration Dexamethasone Sodium Phosphate 40 mg 03/20/17 21:00 03/22/17 21:28 Decadron Injection - IVPB 40 mg DAILY@2100 PRASHANT Administration Diphenhydramine HCl 25 mg 03/20/17 21:00 03/22/17 20:54 Benadryl Injection - IVPUSH 25 mg DAILY@2100 PRASHANT Administration Docusate Sodium 100 mg 03/18/17 10:00 03/23/17 09:23 Colace - PO 100 mg BID PRASHANT Administration Glipizide 10 mg 03/20/17 16:30 03/23/17 06:20 Glucotrol - PO 10 mg BID@0700,1630 PRASHANT Administration Insulin Aspart 1 vial 03/19/17 11:00 03/23/17 12:13 Novolog Vial Sliding Scale - SQ 10 units ACHS PRASHANT Administration Protocol Insulin Detemir 10 units 03/19/17 22:00 03/22/17 21:35 Levemir Vial SQ 10 units HS PRASHANT Administration Morphine Sulfate 60 mg 03/18/17 13:15 03/23/17 13:29 Ms Contin - PO 60 mg Q8H PRASHANT Administration Pantoprazole Sodium 40 mg 03/18/17 10:00 03/23/17 09:23 Protonix - PO 40 mg DAILY PRASHANT Administration Sertraline HCl 25 mg 03/18/17 10:00 03/23/17 09:22 Zoloft - PO 25 mg DAILY PRASHANT Administration Sitagliptin Phosphate 50 mg 03/20/17 13:00 03/23/17 06:21 Januvia - PO 50 mg DAILY@0700 PRASHANT Administration Last Vital Signs Temp Pulse Resp BP Pulse Ox 97.8 F 59 L 20 126/63 96 03/23/17 05:42 03/23/17 05:42 03/23/17 09:00 03/23/17 05:42 03/23/17 09:00 66 y/o patient with h/o mantle cell lymphoma, ITP On IVIG/steroids , responding well dc today with prednisone She mentioned her CBC is monitored weekly, she has once a week home CBC draw set up. she knows to call the office with any issues supportive care
== END 2017-03-23 14:36 | disposition home or self-care (01) | DRG 813 ==
LOC: JER 22:39 → JERBED 03-18 00:54 → UNDOADMIN 03-18 01:39 → JERBED 03-18 01:39 → J7W 03-18 15:40
PROVIDERS: ADMIT Internal Medicine; ATTEND Internal Medicine
DX: D69.3 Immune thrombocytopenic purpura (principal); K44.9 Diaphragmatic hernia without obstruction or gangrene; F41.8 Other specified anxiety disorders; N31.8 Other neuromuscular dysfunction of bladder; M48.00 Spinal stenosis, site unspecified; M19.90 Unspecified osteoarthritis, unspecified site; G89.4 Chronic pain syndrome; I12.9 Hypertensive chronic kidney disease with stage 1 through stage 4 chronic kidney disease, or unspecified chronic kidney disease; E11.22 Type 2 diabetes mellitus with diabetic chronic kidney disease; N18.9 Chronic kidney disease, unspecified; Z79.84 Long term (current) use of oral hypoglycemic drugs; Z87.891 Personal history of nicotine dependence; Z85.72 Personal history of non-Hodgkin lymphomas; Z87.442 Personal history of urinary calculi; Z90.81 Acquired absence of spleen; Z79.52 Long term (current) use of systemic steroids
CPT/HCPCS: 36415; 71020-TC; 80048; 80053; 80076; 81003; 81015; 83735; 83880; 84100; 85025; 85610; 86850; 86900; 86901; 93005; 93010; 94010; 99284-25; J1561

== ENCOUNTER 2017-05-19 21:56 | Inpatient (IN) | payer OTHER, MEDICARE ==
--- NOTE | 2017-05-19 22:11 | PDOC ---
Rapid Medical Evaluation Time Seen by Provider: 05/19/17 22:06 Medical Evaluation: Allergies Allergy/AdvReac Type Severity Reaction Status Date / Time ciprofloxacin HCl Allergy Intermediate Itching Verified 03/17/17 22:49 [From Cipro] levofloxacin [From Levaquin] Allergy Intermediate Rash Verified 03/17/17 22:49 atorvastatin calcium Allergy Mild muscle Verified 03/17/17 22:49 [From Lipitor] aches 05/19/17 22:06 The patient presents with a chief complaint of: Low platelet count today. Hx of ITP. Pt. has lab work done weekly by visiting nurse services. Platelet drop 100 -->30. Dr. Broussard and Dr. Orellana made aware. Also c/o swollen ankles Dr. Mcfarlane PCP Dr. Orellana Heme/onc I have performed a brief in-person evaluation of this patient; Pertinent physical exam findings 2+ pitting edema I have ordered the following: CBC, CMP, PT/ INR, Type and screen The patient will proceed to the ED for further evaluation.
[2017-05-19 22:42] LABS: BASO % 1.8 % (0-2.0); EOS % 1.3 % (0-4.5); MCH 23.4 pg (25.7-33.7); MCHC 30.3 g/dl (32.0-36.0); MEAN CELL VOLUME 77.3 fl (80-96); NEUT % 87.9 % (42.8-82.8); RDW 20.5 % (11.6-15.6); WHITE BLOOD COUNT 16.8 K/mm3 (4.0-10.0)
[2017-05-19 22:49] LABS: INR 1.08 (0.82-1.09); PROTHROMBIN TIME (PATIENT) 12.2 SEC (9.98-11.88)
[2017-05-19 23:05] LABS: MEAN PLT VOLUME 7.5 fl (7.5-11.1)
[2017-05-19 23:06] LABS: PLATELET COUNT 28 K/MM3 (134-434)
[2017-05-19 23:08] LABS: HYPOCHROMIA 1+; POLYCHROMASIA 2+
[2017-05-19 23:09] LABS: ANISOCYTOSIS 2+; MACROCYTOSIS 1+; MICROCYTOSIS 1+; POIKILOCYTOSIS 2+
[2017-05-19 23:10] LABS: OVALOCYTE 1+; PLATELET ESTIMATE DECREASED; TARGET CELLS 1+
[2017-05-19 23:13] LABS: ALBUMIN 3.6 g/dl (3.4-5.0); ANION GAP 8 (8-16); BILIRUBIN,TOTAL 0.3 mg/dL (0.2-1.0); CALCIUM 9.2 mg/dL (8.5-10.1); CO2 28 mmol/L (21-32); CREATININE 1.4 mg/dL (0.55-1.02); GLUCOSE,RANDOM 147 mg/dL (74-106); SGOT/AST 23 U/L (15-37); SGPT/ALT 28 U/L (12-78); TOT PROT 9.1 g/dl (6.4-8.2)
[2017-05-19 23:14] LABS: ALK PHOS 88 U/L (45-117)
--- NOTE | 2017-05-20 01:04 | PDOC ---
History of Present Illness <Jocelin Galeano - Last Filed: 05/20/17 01:10> - General History Source: Patient Exam Limitations: No Limitations - History of Present Illness Initial Comments: 05/20/17 01:08 The patient is a 66-year-old female, with a significant past medical history of HTN, diabetes, Non-hodgkins lymphoma (not on any active lymphoma treatment), diaphragmatic hernia, Diverticulitis, Renal Calculi, UTI, Thrombocytopenia (s/p splenectomy), Anxiety, and Depression, who presents to the ED with, a platelet count of 30. As per patient and her daughter, two weeks ago her platelet count was 200,000 and now it is 30. The patient reports this to occurs episodically and to have multiple hospital visits due to this. He denies any recent fevers, chills, headache or dizziness. He denies any recent nausea, vomit, diarrhea or constipation. He denies any recent chest pain or shortness of breath. He denies any recent dysuria, frequency, urgency or hematuria. Allergies: Ciprofloxacin HCl, levofloxacin, atorvastatin calcium Social History: Former Smoker (Quit 2001). Denies EtOH use and recreational drug use. Primary Care Physician: Dr. Mcfarlane <Casey Cantu - Last Filed: 05/20/17 04:18> - General Chief Complaint: Revisit, Lab Variance Stated Complaint: PCP SENT Time Seen by Provider: 05/19/17 22:06 Past History - Past Medical History Anemia: No (ICP) Asthma: No Cancer: Yes (lymphoma) Cardiac Disorders: No CVA: No COPD: No CHF: No Dementia: No Diabetes: Yes (niddm) GI Disorders: Yes (DIVERTICULITIS) Disorders: Yes (bladder dysfunction) HTN: No Hypercholesterolemia: No Liver Disease: No Psychiatric Problems: Yes (ANXIETY) Seizures: No Thyroid Disease: No Other medical history: avascular necrosis of hip and knee, lymphoma, ICP, - Surgical History Abdominal Surgery: Yes (SPLEENECTOMY) Appendectomy: No Cardiac Surgery: No Cholecystectomy: No Lung Surgery: No Neurologic Surgery: Yes (cervical laminectomy x 2) Orthopedic Surgery: Yes (Anterior and posterior cervical laminectomy with fusion ) - Suicide/Smoking/Psychosocial Hx Smoking Status: No Smoking History: Never smoked Have you smoked in the past 12 months: No Number of Cigarettes Smoked Daily: 0 If you are a former smoker, when did you quit?: 2001 Information on smoking cessation initiated: No Hx Alcohol Use: No Drug/Substance Use Hx: No Substance Use Type: None Hx Substance Use Treatment: No <GaleanoJocelin - Last Filed: 05/20/17 01:10> <Casey Cantu - Last Filed: 05/20/17 04:18> - Past Medical History Allergies/Adverse Reactions: Allergies Allergy/AdvReac Type Severity Reaction Status Date / Time ciprofloxacin HCl Allergy Intermediate Itching Verified 05/19/17 22:12 [From Cipro] levofloxacin [From Levaquin] Allergy Intermediate Rash Verified 05/19/17 22:12 atorvastatin calcium Allergy Mild muscle Verified 05/19/17 22:12 [From Lipitor] aches Home Medications: Ambulatory Orders Sertraline HCl [Zoloft -] 25 mg PO DAILY 08/28/14 Alprazolam [Xanax] 0.5 mg PO Q8H PRN #0 tablet 09/10/14 Pantoprazole Sodium [Protonix -] 40 mg PO DAILY #0 tablet.ec 09/10/14 Glipizide [Glucotrol Xl] 10 mg PO Q6H PRN 11/12/15 Morphine Sulfate 15 mg PO QID PRN 03/31/16 Allopurinol [Zyloprim -] 150 mg PO DAILY #60 tablet 04/07/16 Albuterol Sulfate Inhaler - [Ventolin HFA Inhaler -] 1 - 2 inh PO Q4H 08/09/16 Calcium Carbonate 648 mg PO BID 08/09/16 Acetaminophen [Tylenol .Regular Strength -] 650 mg PO DAILY tablet 10/29/16 Amlodipine Besylate [Norvasc -] 5 mg PO DAILY #0 tablet 10/29/16 Docusate Sodium [Colace -] 100 mg PO BID #60 tab-cap 10/29/16 Morphine *Sr* [MS Contin -] 60 mg PO TID #120 tab.sa MDD 180mg 12/28/16 Sitagliptin Phosphate [Januvia] 50 mg PO DAILY 03/18/17 Prednisone [Deltasone -] 40 mg PO DAILY #60 tablet 03/23/17 Review of Systems - Review of Systems Able to Perform ROS?: Yes Comments:: 05/20/17 01:15 GENERAL/CONSTITUTIONAL: No fever or chills. No weakness. HEAD, EYES, EARS, NOSE AND THROAT: No change in vision. No ear pain or discharge. No sore throat. CARDIOVASCULAR: No chest pain or shortness of breath. RESPIRATORY: No cough, wheezing, or hemoptysis. GASTROINTESTINAL: No nausea, vomiting, diarrhea or constipation. GENITOURINARY: No dysuria, frequency, or change in urination. MUSCULOSKELETAL: No joint or muscle swelling or pain. No neck or back pain. SKIN: No rash NEUROLOGIC: No headache, vertigo, loss of consciousness, or change in strength/ sensation. ENDOCRINE: No increased thirst. No abnormal weight change. HEMATOLOGIC/LYMPHATIC: No anemia, easy bleeding, or history of blood clots. ALLERGIC/IMMUNOLOGIC: No hives or skin allergy. All Other Systems: Reviewed and Negative <Casey Cantu - Last Filed: 05/20/17 04:18> *Physical Exam - Vital Signs Last Vital Signs Temp Pulse Resp BP Pulse Ox 98.2 F 107 H 18 134/52 100 05/19/17 22:08 05/19/17 22:08 05/19/17 22:08 05/19/17 22:08 05/19/17 22:08 <Jocelin Galeano - Last Filed: 05/20/17 01:10> - Vital Signs Last Vital Signs Temp Pulse Resp BP Pulse Ox 98.2 F 107 H 18 134/52 100 05/19/17 22:08 05/19/17 22:08 05/19/17 22:08 05/19/17 22:08 05/19/17 22:08 - Physical Exam Comments: 05/20/17 01:16 GENERAL: Awake, alert, and fully oriented, in no acute distress HEAD: No signs of trauma EYES: PERRLA, EOMI, sclera anicteric, conjunctiva clear ENT: Auricles normal inspection, hearing grossly normal, nares patent, oropharynx clear without exudates. Moist mucosa NECK: Normal ROM, supple, no lymphadenopathy, JVD, or masses LUNGS: Breath sounds equal, clear to auscultation bilaterally. No wheezes, and no crackles HEART: Regular rate and rhythm, normal S1 and S2, no murmurs, rubs or gallops ABDOMEN: Soft, nontender, normoactive bowel sounds. No guarding, no rebound. No masses EXTREMITIES: Normal range of motion, no edema. No clubbing or cyanosis. No cords, erythema, or tenderness NEUROLOGICAL: Cranial nerves II through XII grossly intact. Normal speech, normal gait SKIN: Warm, Dry, normal turgor, no rashes or lesions noted. <Casey Cantu - Last Filed: 05/20/17 04:18> ED Treatment Course - LABORATORY CBC & Chemistry Diagram: 05/19/17 22:22 05/19/17 22:22 - ADDITIONAL ORDERS Additional order review: Laboratory Results 05/19/17 05/19/17 05/19/17 22:22 22:22 22:22 PT with INR 12.20 H INR 1.08 Sodium 138 Potassium 4.3 Chloride 102 Carbon Dioxide 28 Anion Gap 8 BUN 19 H D Creatinine 1.4 H Creat Clearance w eGFR 37.62 Random Glucose 147 H D Calcium 9.2 Total Bilirubin 0.3 AST 23 D ALT 28 D Alkaline Phosphatase 88 D Total Protein 9.1 H Albumin 3.6 Blood Type A POSITIVE Antibody Screen Negative 05/19/17 22:22 RBC 4.80 D MCV 77.3 L MCHC 30.3 L RDW 20.5 H D MPV 7.5 D Neutrophils % 87.9 H Lymphocytes % 6.0 L D Monocytes % 3.0 L D Eosinophils % 1.3 D Basophils % 1.8 D - RADIOLOGY Radiology Studies Ordered: Category Date Time Status CHEST X-RAY PORTABLE* [RAD] Stat Radiology 05/20/17 01:01 Ordered <Jocelin Galeano - Last Filed: 05/20/17 01:10> - LABORATORY CBC & Chemistry Diagram: 05/19/17 22:22 05/19/17 22:22 - ADDITIONAL ORDERS Additional order review: Laboratory Results 05/19/17 05/19/17 05/19/17 22:22 22:22 22:22 PT with INR 12.20 H INR 1.08 Sodium 138 Potassium 4.3 Chloride 102 Carbon Dioxide 28 Anion Gap 8 BUN 19 H D Creatinine 1.4 H Creat Clearance w eGFR 37.62 Random Glucose 147 H D Calcium 9.2 Total Bilirubin 0.3 AST 23 D ALT 28 D Alkaline Phosphatase 88 D Total Protein 9.1 H Albumin 3.6 Blood Type A POSITIVE Antibody Screen Negative 05/19/17 22:22 RBC 4.80 D MCV 77.3 L MCHC 30.3 L RDW 20.5 H D MPV 7.5 D Neutrophils % 87.9 H Lymphocytes % 6.0 L D Monocytes % 3.0 L D Eosinophils % 1.3 D Basophils % 1.8 D <Casey Cantu - Last Filed: 05/20/17 04:18> Medical Decision Making - Medical Decision Making 05/20/17 01:01 Dr. Orellana was paged and she is aware of the patient. Given that pt has no petechiae and no active bleeding, she recommends the patient's usual 40mg prednisone orally daily. In the event of bleeding, pt should get FFPs, IVIG and steroids IV. Reyna wants me to culture the patient urine and blood and get a CXR and admit. Tomorrow they will recheck pt's counts. Pt of Dr. Mcfarlane; will admit to Dr. Nice. I spoke to Dr. Bocanegra he accepts the patient. <Jocelin Galeano - Last Filed: 05/20/17 01:10> *DC/Admit/Observation/Transfer - Discharge Dispostion Admit: Yes <Jocelin Galeano - Last Filed: 05/20/17 01:10> - Attestations Scribe Attestion: 05/20/17 01:09 Documentation prepared by Casey Cantu, acting as medical housekeeper for Jocelin Galeano MD. <Casey Cantu - Last Filed: 05/20/17 04:18> Diagnosis at time of Disposition: Anemia, Acute ITP, ITP (idiopathic thrombocytopenic purpura), Mantle cell lymphoma - Discharge Dispostion Condition at time of disposition: Guarded
[2017-05-20] MEDS: SODIUM CHLORIDE 1,000 ML IV SCH (01:55)
[2017-05-20 03:38] VITALS: BMI 36.2
[2017-05-20] MEDS ORDERED: ALBUTEROL SO4 18 GM HFA INHALER IH PRN (04:00)
[2017-05-20] MEDS: INSULIN SLIDING SCALE (NOVOLOG) 1 VIAL SQ SCH ×3 (06:24→16:41)
[2017-05-20] MEDS: sitaGLIPtin PHOSPHATE 50 MG TABLET PO SCH (06:25)
[2017-05-20] MEDS: INSULIN DETEMIR 100 UNITS/ML MDV SQ SCH ×2 (06:25→16:44)
[2017-05-20] MEDS: morphine SO4 SUSTAINED ACTING 30 MG TABLET.SA PO SCH ×3 (06:25→21:42)
[2017-05-20] MEDS ORDERED: predniSONE 20 MG TABLET (UD) PO SCH (10:00)
--- NOTE | 2017-05-20 10:02 | HP ---
Admitting History and Physical - Primary Care Physician PCP: Subhash Mcfarlane - Admission Chief Complaint: Called back from Clinic for Thrombocytopenia History of Present Illness: 66-year-old female, with H/O HTN, T2DM, Diabetic Nephropathy CKD stage 3 base line GFR 35-40, Mantel Cell Lymphoma not on treatment, ITP s/p Spleenectomy multiple relapse last was in Mar 2017 treated with IVIG and Dexamethasone, Gout , OA, BIB daughter with c/o low platelet count, patient has arrangement for home Platelet count monitoring , today PMD call back with low platelet count result and asked her to visit ED, otherwise patient is in her USOH denies any fever, chills, sick contact, cough, fever, dysuria, petechial hemorrhage, head ache or hematuria, no c/o chest pain or SOB, ET is at base line. Patient c/o bleeding gums on brushing, as per patient Prednisone was tapered almost 2 wks ago her platelet count gradually declining since discharge, last wk platelet cunt was 33 K - Past Medical History Cardiovascular: Yes: HTN Pulmonary: Yes: Other (diaphragmatic hernia) Gastrointestinal: Yes: Diverticulitis (osteoarthritis right hip) Renal/: Yes: Renal Calculi, UTI, Other (bladder dysfunction) ...: No Heme/Onc: Yes: Thrombocytopenia (s/p splenectomy), Other (lymphoma -Mantle cell) Psych: Yes: Anxiety, Depression Musculoskeletal: Yes: Chronic low back pain, Osteoarthritis (right hip) Rheumatology: Yes: Other (degenerative spine disease) Endocrine: Yes: Diabetes Mellitus - Past Surgical History Past Surgical History: Yes: Laminectomy (cervical laminectomy x2 (2001)), Splenectomy, Thoracotomy - Smoking History Smoking history: Never smoked Have you smoked in the past 12 months: No Aproximately how many cigarettes per day: 0 If you are a former smoker, when did you quit?: 2001 - Alcohol/Substance Use Hx Alcohol Use: No History of Substance Use: reports: None - Social History ADL: Independent 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, , 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 History of Recent Travel: No Home Medications - Allergies Allergies/Adverse Reactions: Allergies Allergy/AdvReac Type Severity Reaction Status Date / Time ciprofloxacin HCl Allergy Intermediate Itching Verified 05/19/17 22:12 [From Cipro] levofloxacin [From Levaquin] Allergy Intermediate Rash Verified 05/19/17 22:12 atorvastatin calcium Allergy Mild muscle Verified 05/19/17 22:12 [From Lipitor] aches - Home Medications Home Medications: Ambulatory Orders Sertraline HCl [Zoloft -] 25 mg PO DAILY 08/28/14 Alprazolam [Xanax] 0.5 mg PO Q8H PRN #0 tablet 09/10/14 Pantoprazole Sodium [Protonix -] 40 mg PO DAILY #0 tablet.ec 09/10/14 Glipizide [Glucotrol Xl] 10 mg PO Q6H PRN 11/12/15 Morphine Sulfate 15 mg PO QID PRN 03/31/16 Allopurinol [Zyloprim -] 150 mg PO DAILY #60 tablet 04/07/16 Albuterol Sulfate Inhaler - [Ventolin HFA Inhaler -] 1 - 2 inh PO Q4H 08/09/16 Calcium Carbonate 648 mg PO BID 08/09/16 Acetaminophen [Tylenol .Regular Strength -] 650 mg PO DAILY tablet 10/29/16 Amlodipine Besylate [Norvasc -] 5 mg PO DAILY #0 tablet 10/29/16 Docusate Sodium [Colace -] 100 mg PO BID #60 tab-cap 10/29/16 Morphine *Sr* [MS Contin -] 60 mg PO TID #120 tab.sa MDD 180mg 12/28/16 Sitagliptin Phosphate [Januvia] 50 mg PO DAILY 03/18/17 Prednisone [Deltasone -] 40 mg PO DAILY #60 tablet 03/23/17 Family Disease History - Family Disease History Family Disease History: Heart Disease: Mother, Other: Father (thrombocytopenia) , Daughter (hypothyroidism) Review of Systems - Review of Systems Constitutional: denies: Diaphoresis, Fever, Lethargy Eyes: reports: No Symptoms HENT: denies: Difficult Swallowing, Ear Discharge, Ear Pain, Epistaxis, Gingival Bleeding Neck: denies: Decreased ROM, Lumps Cardiovascular: denies: Chest Pain, Palpitations, Shortness of Breath Respiratory: denies: Cough, Hemoptysis Gastrointestinal: denies: Abdominal Pain, Bloating, Constipation, Melena, Rectal Bleeding Genitourinary: denies: Burning, Dysuria, Hematuria Musculoskeletal: reports: Back Pain Integumentary: denies: Blister, Bruising, Change in Color, Rash Neurological: denies: Change in LOC, Change in Speech, Confusion Endocrine: denies: Excessive Sweating, Flushing, Increased Hunger Hematology/Lymphatic: denies: Easily Bruised, Swollen Glands Psychiatric: denies: Altered Sleep Pattern, Anxiety Physical Examination Vital Signs: Vital Signs Temperature 98.1 F 05/20/17 06:11 Pulse Rate 96 H 05/20/17 06:11 Respiratory Rate 20 05/20/17 06:11 Blood Pressure 135/66 05/20/17 06:11 O2 Sat by Pulse Oximetry (%) 98 05/20/17 03:00 GENERAL: Awake, alert, and fully oriented, in no acute distress HEEENT: No signs of trauma, PERRLA, EOMI, sclera anicteric, conjunctiva clear Auricles normal inspection, hearing grossly normal, oropharynx clear without exudates. Moist mucosa NECK: Normal ROM, supple, no lymphadenopathy, JVD, or masses CHEST and LUNGS: Non Tender , Breath sounds equal, clear to auscultation bilaterally. CVS: Regular rate and rhythm, normal S1 and S2, no murmurs, rubs or gallops ABDOMEN: Soft, nontender, normoactive bowel sounds. No guarding, no rebound. No masses EXTREMITIES and Back: Normal range of motion, no edema. No clubbing or cyanosis. No cords, erythema, or tenderness NEUROLOGICAL: Cranial nerves II through XII grossly intact. Normal speech, normal gait SKIN: Warm, Dry, no rashes or lesions noted. Labs: CBC, BMP 05/19/17 22:22 05/19/17 22:22 Imaging - Results Chest X-ray: Report Reviewed (Normal) EKG: Report Reviewed (Normal) Problem List - Problems (1) Acute ITP Assessment/Plan: Known case of ITP , Hematology consulted recommended Po Prednisone 60 mg daily and monitor platelete count. Code(s): D69.3 - IMMUNE THROMBOCYTOPENIC PURPURA (2) CKD stage 3 secondary to diabetes Code(s): E11.22 - TYPE 2 DIABETES MELLITUS W DIABETIC CHRONIC KIDNEY DISEASE; N18.3 - CHRONIC KIDNEY DISEASE, STAGE 3 (MODERATE) (3) Uncontrolled type 2 diabetes mellitus Assessment/Plan: Hold PO meds considering steroid use add levimir 10 units BID with correction dose insulin Code(s): E11.65 - TYPE 2 DIABETES MELLITUS WITH HYPERGLYCEMIA Qualifiers: Diabetes mellitus complication status: with kidney complications Diabetes mellitus complication detail: with nephropathy Diabetes mellitus nursing home insulin use: unspecified proof reader insulin use status Qualified Code(s): E11.21 - Type 2 diabetes mellitus with diabetic nephropathy; E11.65 - Type 2 diabetes mellitus with hyperglycemia; E11.65 - Type 2 diabetes mellitus with hyperglycemia; E11.65 - Type 2 diabetes mellitus with hyperglycemia; E11.65 - Type 2 diabetes mellitus with hyperglycemia (4) HTN (hypertension) Assessment/Plan: Well controlled cont all home medications Code(s): I10 - ESSENTIAL (PRIMARY) HYPERTENSION (5) Mantle cell lymphoma Assessment/Plan: In remission no active issue Code(s): C83.10 - MANTLE CELL LYMPHOMA, UNSPECIFIED SITE (6) Spinal stenosis Assessment/Plan: Chronic back paian spinal canal stenosis cont all home medications Code(s): M48.00 - SPINAL STENOSIS, SITE UNSPECIFIED (7) Osteoarthritis Assessment/Plan: Cont pain medications Code(s): M19.90 - UNSPECIFIED OSTEOARTHRITIS, UNSPECIFIED SITE (8) Anxiety Assessment/Plan: cont home medications Code(s): F41.9 - ANXIETY DISORDER, UNSPECIFIED Assessment/Plan Active Medications Generic Name Dose Route Start Last Admin Trade Name Freq PRN Reason Stop Dose Admin Acetaminophen 650 mg 05/20/17 10:00 Tylenol - PO DAILY PRASHANT Albuterol Sulfate 2 puff 05/20/17 04:00 Ventolin Hfa Inhaler - IH Q4H PRN Allopurinol 150 mg 05/20/17 10:00 Zyloprim - PO DAILY PRASHANT Alprazolam 0.5 mg 05/20/17 03:55 Xanax - PO Q8H PRN ANXIETY Amlodipine Besylate 5 mg 05/20/17 10:00 Norvasc - PO DAILY PRASHANT Calcium Carbonate 650 mg 05/20/17 10:00 Calcium Carbonate - PO BID PRASHANT Docusate Sodium 100 mg 05/20/17 10:00 Colace - PO BID PRASHANT Sodium Chloride 1,000 mls @ 42 mls/hr 05/20/17 01:00 05/20/17 01:55 Normal Saline - IV 42 mls/hr ASDIR PRASHANT Administration Insulin Aspart 1 vial 05/20/17 07:00 05/20/17 06:24 Novolog Vial Sliding Scale - SQ 4 unit TIDAC PRASHANT Administration Protocol Insulin Detemir 10 units 05/20/17 07:00 05/20/17 06:25 Levemir Vial SQ 10 unit BIDI PRASHANT Administration Morphine Sulfate 60 mg 05/20/17 06:00 05/20/17 06:25 Ms Contin - PO 60 mg TID PRASHANT Administration Morphine Sulfate 15 mg 05/20/17 03:55 Msir - PO QID PRN breakthrough pain Pantoprazole Sodium 40 mg 05/20/17 10:00 Protonix - PO DAILY [facility] Prednisone 40 mg 05/20/17 10:00 Deltasone - PO DAILY PRASHANT Sertraline HCl 25 mg 05/20/17 10:00 Zoloft - PO DAILY PRASHANT Sitagliptin Phosphate 50 mg 05/20/17 07:00 05/20/17 06:25 Januvia - PO 50 mg DAILY@0700 PRASHANT Administration
[2017-05-20] MEDS: CALCIUM CARBONATE 650 MG TABLET PO SCH ×2 (10:10→21:42)
[2017-05-20] MEDS: SERTRALINE HCL 25 MG TABLET (FP) PO SCH (10:14)
[2017-05-20] MEDS: ACETAMINOPHEN 325 MG TABLET (FP) PO SCH (10:14)
[2017-05-20] MEDS: DOCUSATE SODIUM 100 MG CAPSULE (FP) PO SCH ×2 (10:18→21:42)
[2017-05-20] MEDS: ALLOPURINOL 100 MG TABLET (FP) PO SCH (10:18)
[2017-05-20] MEDS: PANTOPRAZOLE 40 MG TABLET (FP) PO SCH (10:18)
[2017-05-20] MEDS: amLODIPine BESYLATE 5 MG TABLET (FP) PO SCH (10:18)
[2017-05-20] MEDS: morphine SULFATE IMMEDIATE RELEASE 30 MG TAB PO PRN ×2 (10:26→18:13)
[2017-05-20] MEDS: ALPRAZolam 0.25 MG TABLET PO PRN ×2 (10:27→21:42)
[2017-05-20 10:31] LABS: BASO % 0.3 % (0-2.0); MCH 23.1 pg (25.7-33.7); MCHC 30.3 g/dl (32.0-36.0); MEAN CELL VOLUME 76.4 fl (80-96); MEAN PLT VOLUME 10.6 fl (7.5-11.1); NEUT % 88.2 % (42.8-82.8); RDW 20.4 % (11.6-15.6); WHITE BLOOD COUNT 10.1 K/mm3 (4.0-10.0)
[2017-05-20 10:46] LABS: INR 1.12 (0.82-1.09); PROTHROMBIN TIME (PATIENT) 12.6 SEC (9.98-11.88)
[2017-05-20 10:53] LABS: PLATELET COUNT 34 K/MM3 (134-434)
[2017-05-20 10:54] LABS: ANION GAP 7 (8-16); CO2 29 mmol/L (21-32); CREATININE 1.2 mg/dL (0.55-1.02); GLUCOSE,RANDOM 261 mg/dL (74-106); SGOT/AST 17 U/L (15-37); SGPT/ALT 19 U/L (12-78)
[2017-05-20 10:55] LABS: ALK PHOS 70 U/L (45-117); BILIRUBIN,TOTAL 0.2 mg/dL (0.2-1.0); TOT PROT 7.5 g/dl (6.4-8.2)
[2017-05-20] MEDS ORDERED: INSULIN (NOVOLOG) ASPART 100 UNITS/ML 10ML VIAL ONE (12:11)
--- NOTE | 2017-05-20 13:19 | CONSULT ---
Consult - text type - Consultation Consultation Note: Admission Chief Complaint: Called back from Clinic for Thrombocytopenia History of Present Illness: 66-year-old female, with H/O HTN, T2DM, Diabetic Nephropathy CKD stage 3 base line GFR 35-40, Mantle Cell Lymphoma in [place]. She also has ITP and she is s/p Splenectomy with multiple relapses last was in Mar 2017 treated with IVIG and Dexamethasone, She cam in due to low platelet count, patient has arrangement for home Platelet count monitoring , today PMD call back with low platelet count result and asked her to visit ED, She had mild gum bleeding today when she brushed her teeth or else there was no bleeding. - Past Medical History Cardiovascular: Yes: HTN Pulmonary: Yes: Other (diaphragmatic hernia) Gastrointestinal: Yes: Diverticulitis (osteoarthritis right hip) Renal/: Yes: Renal Calculi, UTI, Other (bladder dysfunction) ...: No Heme/Onc: Yes: Thrombocytopenia (s/p splenectomy), Other (lymphoma -Mantle cell) Psych: Yes: Anxiety, Depression Musculoskeletal: Yes: Chronic low back pain, Osteoarthritis (right hip) Rheumatology: Yes: Other (degenerative spine disease) Endocrine: Yes: Diabetes Mellitus - Past Surgical History Past Surgical History: Yes: Laminectomy (cervical laminectomy x2 (2001)), Splenectomy, Thoracotomy - Smoking History Smoking history: Never smoked Have you smoked in the past 12 months: No Aproximately how many cigarettes per day: 0 If you are a former smoker, when did you quit?: 2001 - Alcohol/Substance Use Hx Alcohol Use: No History of Substance Use: reports: None - Social History ADL: Independent 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, , 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 History of Recent Travel: No Home Medications - Allergies Allergies/Adverse Reactions: Allergies Allergy/AdvReac Type Severity Reaction Status Date / Time ciprofloxacin HCl Allergy Intermediate Itching Verified 05/19/17 22:12 [From Cipro] levofloxacin [From Levaquin] Allergy Intermediate Rash Verified 05/19/17 22:12 atorvastatin calcium Allergy Mild muscle Verified 05/19/17 22:12 [From Lipitor] aches - Home Medications Home Medications: Ambulatory Orders Sertraline HCl [Zoloft -] 25 mg PO DAILY 08/28/14 Alprazolam [Xanax] 0.5 mg PO Q8H PRN #0 tablet 09/10/14 Pantoprazole Sodium [Protonix -] 40 mg PO DAILY #0 tablet.ec 09/10/14 Glipizide [Glucotrol Xl] 10 mg PO Q6H PRN 11/12/15 Morphine Sulfate 15 mg PO QID PRN 03/31/16 Allopurinol [Zyloprim -] 150 mg PO DAILY #60 tablet 04/07/16 Albuterol Sulfate Inhaler - [Ventolin HFA Inhaler -] 1 - 2 inh PO Q4H 08/09/16 Calcium Carbonate 648 mg PO BID 08/09/16 Acetaminophen [Tylenol .Regular Strength -] 650 mg PO DAILY tablet 10/29/16 Amlodipine Besylate [Norvasc -] 5 mg PO DAILY #0 tablet 10/29/16 Docusate Sodium [Colace -] 100 mg PO BID #60 tab-cap 10/29/16 Morphine *Sr* [MS Contin -] 60 mg PO TID #120 tab.sa MDD 180mg 12/28/16 Sitagliptin Phosphate [Januvia] 50 mg PO DAILY 03/18/17 Prednisone [Deltasone -] 40 mg PO DAILY #60 tablet 03/23/17 Family Disease History - Family Disease History Family Disease History: Heart Disease: Mother, Other: Father (thrombocytopenia) , Daughter (hypothyroidism) Review of Systems - Review of Systems Constitutional: denies: Diaphoresis, Fever, Lethargy Eyes: reports: No Symptoms HENT: denies: Difficult Swallowing, Ear Discharge, Ear Pain, Epistaxis, Gingival Bleeding Neck: denies: Decreased ROM, Lumps Cardiovascular: denies: Chest Pain, Palpitations, Shortness of Breath Respiratory: denies: Cough, Hemoptysis Gastrointestinal: denies: Abdominal Pain, Bloating, Constipation, Melena, Rectal Bleeding Genitourinary: denies: Burning, Dysuria, Hematuria Musculoskeletal: reports: Back Pain Integumentary: denies: Blister, Bruising, Change in Color, Rash Neurological: denies: Change in LOC, Change in Speech, Confusion Endocrine: denies: Excessive Sweating, Flushing, Increased Hunger Hematology/Lymphatic: denies: Easily Bruised, Swollen Glands Psychiatric: denies: Altered Sleep Pattern, Anxiety Physical Examination Vital Signs: Vital Signs Period Temp Pulse Resp BP Sys/[place] Pulse Ox Last 24 Hr 98.1 F-98.2 F 96-107 18-20 134-155/52-74 95-100 GENERAL: Awake, alert, and fully oriented, in no acute distress HEEENT: No signs of trauma, PERRLA, EOMI, sclera anicteric, conjunctiva clear Auricles normal inspection, hearing grossly normal, oropharynx clear without exudates. Moist mucosa NECK: Normal ROM, supple, no lymphadenopathy, JVD, or masses CHEST and LUNGS: Non Tender , Breath sounds equal, clear to auscultation bilaterally. No wheezes, and no crackles CVS: Regular rate and rhythm, normal S1 and S2, no murmurs, rubs or gallops ABDOMEN: Soft, nontender, normoactive bowel sounds. No guarding, no rebound. No masses EXTREMITIES and Back: Normal range of motion, no edema. No clubbing or cyanosis. No cords, erythema, or tenderness NEUROLOGICAL: Cranial nerves II through XII grossly intact. Normal speech, normal gait SKIN: Warm, Dry, normal turgor, no rashes or lesions noted. Labs: CBC, BMP 05/20/17 10:10 05/20/17 10:10 Imaging - Results Chest X-ray: Report Reviewed (Normal) EKG: Report Reviewed (Normal) Problem List - Problems (1) Acute ITP Code(s): D69.3 - IMMUNE THROMBOCYTOPENIC PURPURA (2) CKD stage 3 secondary to diabetes Code(s): E11.22 - TYPE 2 DIABETES MELLITUS W DIABETIC CHRONIC KIDNEY DISEASE; N18.3 - CHRONIC KIDNEY DISEASE, STAGE 3 (MODERATE) (3) Uncontrolled type 2 diabetes mellitus Code(s): E11.65 - TYPE 2 DIABETES MELLITUS WITH HYPERGLYCEMIA Qualifiers: Diabetes mellitus complication status: with kidney complications Diabetes mellitus complication detail: with nephropathy Diabetes mellitus half-way insulin use: unspecified half-way insulin use status Qualified Code(s): E11.21 - Type 2 diabetes mellitus with diabetic nephropathy; E11.65 - Type 2 diabetes mellitus with hyperglycemia; E11.65 - Type 2 diabetes mellitus with hyperglycemia; E11.65 - Type 2 diabetes mellitus with hyperglycemia; E11.65 - Type 2 diabetes mellitus with hyperglycemia (4) HTN (hypertension) Code(s): I10 - ESSENTIAL (PRIMARY) HYPERTENSION (5) Mantle cell lymphoma Code(s): C83.10 - MANTLE CELL LYMPHOMA, UNSPECIFIED SITE (6) Spinal stenosis Code(s): M48.00 - SPINAL STENOSIS, SITE UNSPECIFIED (7) Osteoarthritis Code(s): M19.90 - UNSPECIFIED OSTEOARTHRITIS, UNSPECIFIED SITE Assessment/Plan ITP : -Monitor -increase Prednisone to 60 mg po q day -if platelets don't continue to trend up then I will order IVIG in AM -Will continue to follow.
[2017-05-20] MEDS ORDERED: INSULIN DETEMIR 100 UNITS/ML MDV SQ ONE (16:48)
[2017-05-21] MEDS: morphine SULFATE IMMEDIATE RELEASE 30 MG TAB PO PRN ×3 (01:26→20:47)
[2017-05-21] MEDS: SODIUM CHLORIDE 1,000 ML IV SCH (02:31)
[2017-05-21] MEDS: morphine SO4 SUSTAINED ACTING 30 MG TABLET.SA PO SCH ×3 (05:15→21:55)
[2017-05-21] MEDS: INSULIN SLIDING SCALE (NOVOLOG) 1 VIAL SQ SCH ×3 (06:07→16:27)
[2017-05-21] MEDS: sitaGLIPtin PHOSPHATE 50 MG TABLET PO SCH (06:08)
[2017-05-21] MEDS: INSULIN DETEMIR 100 UNITS/ML MDV SQ SCH ×3 (06:08→16:26)
[2017-05-21] MEDS ORDERED: INSULIN (NOVOLOG) ASPART 100 UNITS/ML 10ML VIAL ONE (06:33)
[2017-05-21 08:05] LABS: BASO % 0.5 % (0-2.0); MCHC 29.9 g/dl (32.0-36.0); MEAN CELL VOLUME 76.7 fl (80-96); MEAN PLT VOLUME 11.7 fl (7.5-11.1); NEUT % 70.7 % (42.8-82.8); RDW 20.6 % (11.6-15.6); WHITE BLOOD COUNT 11.1 K/mm3 (4.0-10.0)
[2017-05-21 08:16] LABS: ANION GAP 9 (8-16); CALCIUM 8.9 mg/dL (8.5-10.1); CO2 29 mmol/L (21-32); CREATININE 1.3 mg/dL (0.55-1.02); GLUCOSE,RANDOM 149 mg/dL (74-106)
--- NOTE | 2017-05-21 09:36 | PN ---
Progress Note (short form) - Note Progress Note: Progress Note: Patient seen and examined She is doing ok No symptoms Vital Signs Period Temp Pulse Resp BP Sys/[place] Pulse Ox Last 24 Hr 97.5 F-98.0 F 77-95 20-20 143-144/67-71 94-97 CBC, BMP 05/21/17 06:00 05/21/17 06:00 Labs: reviewed A/P MCL with ITP -CONTINUE PREDNISONE 60 MG PO +PPI -She is going to have surgery on and I will reserve the IVIG at that time if possible -She will d/w Dr. Ty regarding treatment of MCL
[2017-05-21] MEDS: amLODIPine BESYLATE 5 MG TABLET (FP) PO SCH (10:04)
[2017-05-21] MEDS: PANTOPRAZOLE 40 MG TABLET (FP) PO SCH (10:04)
[2017-05-21] MEDS: predniSONE 20 MG TABLET (UD) PO SCH (10:06)
[2017-05-21] MEDS: DOCUSATE SODIUM 100 MG CAPSULE (FP) PO SCH ×2 (10:12→21:56)
[2017-05-21] MEDS: ACETAMINOPHEN 325 MG TABLET (FP) PO SCH (10:12)
[2017-05-21] MEDS: ALLOPURINOL 100 MG TABLET (FP) PO SCH (10:12)
[2017-05-21] MEDS: SERTRALINE HCL 25 MG TABLET (FP) PO SCH (10:12)
[2017-05-21] MEDS ORDERED: PT OWN MED DRAWER 7, Y5N ONE (10:19)
[2017-05-21] MEDS: CALCIUM CARBONATE 650 MG TABLET PO SCH ×2 (10:31→21:55)
[2017-05-21 11:19] LABS: PLATELET COMMENTS NO CLUMPING NOTED; PLATELET COUNT 93 K/MM3 (134-434)
--- NOTE | 2017-05-21 11:38 | PN ---
Progress Note, Physician Chief Complaint: No complaints platelet count improved History of Present Illness: 66-year-old female, with H/O HTN, T2DM, Diabetic Nephropathy CKD stage 3 base line GFR 35-40, Mantel Cell Lymphoma not on treatment, ITP s/p Spleenectomy multiple relapse last was in Mar 2017 treated with IVIG and Dexamethasone, Gout , OA, BIB daughter with c/o low platelet count - Current Medication List Current Medications: Active Medications Acetaminophen (Tylenol -) 650 mg PO DAILY [facility] Last Admin: 05/20/17 10:14 Dose: 650 mg Albuterol Sulfate (Ventolin Hfa Inhaler -) 2 puff IH Q4H PRN Allopurinol (Zyloprim -) 150 mg PO DAILY [facility] Last Admin: 05/20/17 10:18 Dose: 150 mg Alprazolam (Xanax -) 0.5 mg PO Q8H PRN PRN Reason: ANXIETY Last Admin: 05/20/17 21:42 Dose: 0.5 mg Amlodipine Besylate (Norvasc -) 5 mg PO DAILY [facility] Last Admin: 05/21/17 10:04 Dose: 5 mg Calcium Carbonate (Calcium Carbonate -) 650 mg PO BID [facility] Last Admin: 05/21/17 10:31 Dose: 650 mg Docusate Sodium (Colace -) 100 mg PO BID [facility] Last Admin: 05/20/17 21:42 Dose: 100 mg Sodium Chloride (Normal Saline -) 1,000 mls @ 42 mls/hr IV ASDIR [facility] Last Admin: 05/21/17 02:31 Dose: Not Given Insulin Aspart (Novolog Vial Sliding Scale -) 1 vial SQ TIDAC [facility] PRN Reason: Protocol Last Admin: 05/21/17 11:18 Dose: 2 unit Insulin Detemir (Levemir Vial) 10 units SQ BIDI [facility] Last Admin: 05/21/17 06:08 Dose: 10 unit Morphine Sulfate (Ms Contin -) 60 mg PO TID [facility] Last Admin: 05/21/17 05:15 Dose: 60 mg Morphine Sulfate (Msir -) 15 mg PO QID PRN PRN Reason: breakthrough pain Last Admin: 05/21/17 10:05 Dose: 15 mg Pantoprazole Sodium (Protonix -) 40 mg PO DAILY [facility] Last Admin: 05/21/17 10:04 Dose: 40 mg Prednisone (Deltasone -) 60 mg PO DAILY [facility] Last Admin: 12/17/17 10:06 Dose: 60 mg Sertraline HCl (Zoloft -) 25 mg PO DAILY [facility] Last Admin: 05/20/17 10:14 Dose: 25 mg Sitagliptin Phosphate (Januvia -) 50 mg PO DAILY@0700 [facility] Last Admin: 05/21/17 06:08 Dose: 50 mg - Objective Vital Signs: Vital Signs Temperature 97.5 F L 05/21/17 06:21 Pulse Rate 77 05/21/17 06:21 Respiratory Rate 20 05/21/17 06:21 Blood Pressure 143/71 05/21/17 06:21 O2 Sat by Pulse Oximetry (%) 97 05/21/17 06:12 GENERAL: Awake, alert, and fully oriented, in no acute distress HEEENT: No signs of trauma, PERRLA, EOMI, sclera anicteric, conjunctiva clear Auricles normal inspection, hearing grossly normal, oropharynx clear without exudates. Moist mucosa NECK: Normal ROM, supple, no lymphadenopathy, JVD, or masses CHEST and LUNGS: Non Tender , Breath sounds equal, clear to auscultation bilaterally. CVS: Regular rate and rhythm, normal S1 and S2, no murmurs, rubs or gallops ABDOMEN: Soft, nontender, normoactive bowel sounds. No guarding, no rebound. No masses EXTREMITIES and Back: Normal range of motion, no edema. No clubbing or cyanosis. No cords, erythema, or tenderness NEUROLOGICAL: Cranial nerves II through XII grossly intact. Normal speech, normal gait SKIN: Warm, Dry, no rashes or lesions noted. Labs: CBC, BMP 05/21/17 06:00 05/21/17 06:00 INR, PTT INR 1.12 (0.82-1.09) 05/20/17 10:10 Problem List - Problems (1) Acute ITP Assessment/Plan: Known case of ITP , Hematology consulted recommended Po Prednisone 60 mg daily and monitor platelete count. 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 insulin use: unspecified [facility] insulin use status Qualified Code(s): E11.21 - Type 2 diabetes mellitus with diabetic nephropathy; E11.65 - Type 2 diabetes mellitus with hyperglycemia; E11.65 - Type 2 diabetes mellitus with hyperglycemia; E11.65 - Type 2 diabetes mellitus with hyperglycemia; E11.65 - Type 2 diabetes mellitus with hyperglycemia (4) HTN (hypertension) Code(s): I10 - ESSENTIAL (PRIMARY) HYPERTENSION (5) Mantle cell lymphoma Code(s): C83.10 - MANTLE CELL LYMPHOMA, UNSPECIFIED SITE (6) Spinal stenosis Code(s): M48.00 - SPINAL STENOSIS, SITE UNSPECIFIED (7) Osteoarthritis Code(s): M19.90 - UNSPECIFIED OSTEOARTHRITIS, UNSPECIFIED SITE (8) Anxiety Code(s): F41.9 - ANXIETY DISORDER, UNSPECIFIED
[2017-05-21] MEDS ORDERED: INSULIN DETEMIR 100 UNITS/ML MDV SQ ONE (16:39)
[2017-05-21] MEDS: ALPRAZolam 0.25 MG TABLET PO PRN (21:56)
[2017-05-22] MEDS: morphine SO4 SUSTAINED ACTING 30 MG TABLET.SA PO SCH ×3 (06:42→21:19)
[2017-05-22] MEDS: sitaGLIPtin PHOSPHATE 50 MG TABLET PO SCH (06:43)
[2017-05-22] MEDS: SODIUM CHLORIDE 1,000 ML IV SCH ×2 (06:43→16:00)
[2017-05-22] MEDS: INSULIN DETEMIR 100 UNITS/ML MDV SQ SCH (06:44)
[2017-05-22] MEDS: INSULIN SLIDING SCALE (NOVOLOG) 1 VIAL SQ SCH ×3 (06:44→17:38)
[2017-05-22] MEDS ORDERED: INSULIN (NOVOLOG) ASPART 100 UNITS/ML 10ML VIAL ONE (07:01)
[2017-05-22 08:20] LABS: BASO % 0.7 % (0-2.0); MCH 23.1 pg (25.7-33.7); MCHC 30.3 g/dl (32.0-36.0); MEAN CELL VOLUME 76.2 fl (80-96); MEAN PLT VOLUME 10.7 fl (7.5-11.1); NEUT % 68.5 % (42.8-82.8); PLATELET COUNT 113 K/MM3 (134-434); RDW 20.6 % (11.6-15.6)
[2017-05-22 08:36] LABS: ANION GAP 9 (8-16); CALCIUM 8.6 mg/dL (8.5-10.1); CO2 27 mmol/L (21-32)
[2017-05-22 08:39] LABS: CREATININE 1.2 mg/dL (0.55-1.02); GLUCOSE,RANDOM 166 mg/dL (74-106)
[2017-05-22] MEDS: predniSONE 20 MG TABLET (UD) PO SCH (09:00)
[2017-05-22] MEDS: DOCUSATE SODIUM 100 MG CAPSULE (FP) PO SCH ×2 (09:00→21:20)
[2017-05-22] MEDS: ACETAMINOPHEN 325 MG TABLET (FP) PO SCH (09:00)
[2017-05-22] MEDS: ALPRAZolam 0.25 MG TABLET PO PRN ×2 (09:00→21:19)
[2017-05-22] MEDS: SERTRALINE HCL 25 MG TABLET (FP) PO SCH (09:00)
[2017-05-22] MEDS: amLODIPine BESYLATE 5 MG TABLET (FP) PO SCH (09:01)
[2017-05-22] MEDS: PANTOPRAZOLE 40 MG TABLET (FP) PO SCH (09:01)
[2017-05-22] MEDS: ALLOPURINOL 100 MG TABLET (FP) PO SCH (09:01)
[2017-05-22] MEDS: CALCIUM CARBONATE 650 MG TABLET PO SCH ×2 (09:23→21:20)
[2017-05-22] MEDS ORDERED: glipiZIDE-XL 5 MG TAB.ER.24 PO PRN (10:34)
--- NOTE | 2017-05-22 10:48 | PN ---
Progress Note, Physician Chief Complaint: Ms Painting complains of worsening abdominal pain and worsening shortness of breath. Also with n/v. No cp noted. - Current Medication List Current Medications: Active Medications Acetaminophen (Tylenol -) 650 mg PO DAILY [facility] Last Admin: 05/22/17 09:00 Dose: 650 mg Albuterol Sulfate (Ventolin Hfa Inhaler -) 2 puff IH Q4H PRN Allopurinol (Zyloprim -) 150 mg PO DAILY [facility] Last Admin: 05/22/17 09:01 Dose: 150 mg Alprazolam (Xanax -) 0.5 mg PO Q8H PRN PRN Reason: ANXIETY Last Admin: 05/22/17 09:00 Dose: 0.5 mg Amlodipine Besylate (Norvasc -) 5 mg PO DAILY [facility] Last Admin: 05/22/17 09:01 Dose: 5 mg Calcium Carbonate (Calcium Carbonate -) 650 mg PO BID [facility] Last Admin: 05/22/17 09:23 Dose: 650 mg Docusate Sodium (Colace -) 100 mg PO BID [facility] Last Admin: 05/22/17 09:00 Dose: 100 mg Glipizide (Glucotrol Xl -) 10 mg PO BID [facility] Sodium Chloride (Normal Saline -) 1,000 mls @ 42 mls/hr IV ASDIR [facility] Insulin Aspart (Novolog Vial Sliding Scale -) 1 vial SQ TIDAC [facility] PRN Reason: Protocol Last Admin: 05/22/17 06:44 Dose: 2 unit Morphine Sulfate (Ms Contin -) 60 mg PO TID [facility] Last Admin: 05/22/17 06:42 Dose: 60 mg Morphine Sulfate (Msir -) 15 mg PO QID PRN PRN Reason: breakthrough pain Last Admin: 05/21/17 20:47 Dose: 15 mg Pantoprazole Sodium (Protonix -) 40 mg PO DAILY [facility] Last Admin: 05/22/17 09:01 Dose: 40 mg Prednisone (Deltasone -) 60 mg PO DAILY [facility] Last Admin: 05/22/17 09:00 Dose: 60 mg Sertraline HCl (Zoloft -) 25 mg PO DAILY [facility] Last Admin: 05/22/17 09:00 Dose: 25 mg Sitagliptin Phosphate (Januvia -) 50 mg PO DAILY@0700 [facility] Last Admin: 05/22/17 06:43 Dose: 50 mg - Objective Vital Signs: Vital Signs Temperature 36.6 C 05/22/17 05:44 Pulse Rate 62 05/22/17 05:44 Respiratory Rate 20 05/22/17 05:44 Blood Pressure 144/55 05/22/17 05:44 O2 Sat by Pulse Oximetry (%) 97 05/21/17 21:00 Constitutional: Yes: No Distress, Calm, Obese Cardiovascular: Yes: Regular Rate and Rhythm. No: Gallop, Murmur, Rub Respiratory: Yes: Regular, CTA Bilaterally. No: Rales, Rhonchi, Wheezes Gastrointestinal: Yes: Normal Bowel Sounds, Soft, Tenderness. No: Distention Extremities: Yes: WNL Edema: No Labs: CBC, BMP 05/22/17 06:30 05/22/17 06:30 INR, PTT INR 1.12 (0.82-1.09) 05/20/17 10:10 Problem List - Problems (1) Acute ITP Assessment/Plan: -much improved on prednisone -continue currently -await hematology recommendations concerning course Code(s): D69.3 - IMMUNE THROMBOCYTOPENIC PURPURA (2) Anemia Assessment/Plan: -stable Code(s): D64.9 - ANEMIA, UNSPECIFIED (3) Anxiety Assessment/Plan: -continue xanax -controlled Code(s): F41.9 - ANXIETY DISORDER, UNSPECIFIED (4) CKD stage 3 secondary to diabetes Assessment/Plan: -stable -will hydrate and use mucomyst for renal protection from contrast Code(s): E11.22 - TYPE 2 DIABETES MELLITUS W DIABETIC CHRONIC KIDNEY DISEASE; N18.3 - CHRONIC KIDNEY DISEASE, STAGE 3 (MODERATE) (5) HTN (hypertension) Assessment/Plan: -controlled Code(s): I10 - ESSENTIAL (PRIMARY) HYPERTENSION (6) Diabetes mellitus Assessment/Plan: -restart glipizide 10mg bid -continue januvia -diabetic diet and SSI -will stop levemir Code(s): E11.9 - TYPE 2 DIABETES MELLITUS WITHOUT COMPLICATIONS (7) Diaphragmatic hernia Assessment/Plan: -with acute worsening of pain -also with worsening dyspnea on exertion -obtain CT scan, evaluate for incarceration Code(s): K44.9 - DIAPHRAGMATIC HERNIA WITHOUT OBSTRUCTION OR GANGRENE Qualifiers: Obstruction and gangrene presence: without obstruction or gangrene Qualified Code(s): K44.9 - Diaphragmatic hernia without obstruction or gangrene (8) HTN (hypertension) Assessment/Plan: -continue current regimen Code(s): I10 - ESSENTIAL (PRIMARY) HYPERTENSION Qualifiers:
[2017-05-22] MEDS: glipiZIDE-XL 10 MG TAB.ER.24 (FP) PO SCH ×2 (12:53→16:31)
--- NOTE | 2017-05-22 16:54 | PN ---
Progress Note (short form) - Note Progress Note: Patient seen and examined Denies any complaints Last Vital Signs Temp Pulse Resp BP Pulse Ox 98 F 72 20 136/62 98 05/22/17 10:00 05/22/17 10:00 05/22/17 10:00 05/22/17 10:00 05/22/17 09:00 Cor: RSR, No murmurs, No gallops Lungs: Clear to P&A Abd: Soft, Normal bowel sounds, No organomegaly Ext:No significant edema Abnormal Lab Results 05/22/17 05/22/17 06:30 06:30 WBC 12.0 H Hgb 9.5 L Hct 31.5 L MCV 76.2 L MCH 23.1 L MCHC 30.3 L RDW 20.6 H Plt Count 113 L D BUN 26 H Creatinine 1.2 H Random Glucose 166 H Active Medications Generic Name Dose Route Start Last Admin Trade Name Freq PRN Reason Stop Dose Admin Acetaminophen 650 mg 05/20/17 10:00 05/22/17 09:00 Tylenol - PO 650 mg DAILY PRASHANT Administration Acetylcysteine 1,200 mg 05/22/17 11:00 Mucomyst 20 Oral / Inh Use Only* PO 05/23/17 23:01 Q12H PRASHANT Albuterol Sulfate 2 puff 05/20/17 04:00 Ventolin Hfa Inhaler - IH Q4H PRN Allopurinol 150 mg 05/20/17 10:00 05/22/17 09:01 Zyloprim - PO 150 mg DAILY PRASHANT Administration Alprazolam 0.5 mg 05/20/17 03:55 05/22/17 09:00 Xanax - PO 0.5 mg Q8H PRN Administration ANXIETY Amlodipine Besylate 5 mg 05/20/17 10:00 05/22/17 09:01 Norvasc - PO 5 mg DAILY PRASHANT Administration Calcium Carbonate 650 mg 05/20/17 10:00 05/22/17 09:23 Calcium Carbonate - PO 650 mg BID PRASHANT Administration Docusate Sodium 100 mg 05/20/17 10:00 05/22/17 09:00 Colace - PO 100 mg BID PRASHANT Administration Glipizide 10 mg 05/22/17 10:45 05/22/17 16:31 Glucotrol Xl - PO 10 mg BIDAC PRASHANT Administration Sodium Chloride 1,000 mls @ 42 mls/hr 05/22/17 11:00 Normal Saline - IV ASDIR PRASHANT Insulin Aspart 1 vial 05/20/17 07:00 05/22/17 12:24 Novolog Vial Sliding Scale - SQ 8 unit TIDAC PRASHANT Administration Protocol Morphine Sulfate 60 mg 05/20/17 06:00 05/22/17 16:30 Ms Contin - PO 60 mg TID PRASHANT Administration Morphine Sulfate 15 mg 05/20/17 03:55 05/21/17 20:47 Msir - PO 15 mg QID PRN Administration breakthrough pain Pantoprazole Sodium 40 mg 05/20/17 10:00 05/22/17 09:01 Protonix - PO 40 mg DAILY PRASHANT Administration Prednisone 60 mg 05/21/17 10:00 05/22/17 09:00 Deltasone - PO 60 mg DAILY PRASHANT Administration Sertraline HCl 25 mg 05/20/17 10:00 05/22/17 09:00 Zoloft - PO 25 mg DAILY PRASHANT Administration Sitagliptin Phosphate 50 mg 05/20/17 07:00 05/22/17 06:43 Januvia - PO 50 mg DAILY@0700 PRASHANT Administration A/P 66 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 Randle
[2017-05-22] MEDS: ACETYLCYSTEINE 20% 200MG/ML 4 ML VIAL *FOR ORAL / INH USE ONLY PO SCH (17:37)
[2017-05-22] MEDS: morphine SULFATE IMMEDIATE RELEASE 30 MG TAB PO PRN (17:40)
--- NOTE | 2017-05-23 01:45 | EKG ---
Test Reason : Blood Pressure : / mmHG Vent. Rate : 105 BPM Atrial Rate : 105 BPM P-R Int : 150 ms QRS Dur : 090 ms QT Int : 378 ms P-R-T Axes : 069 -39 029 degrees QTc Int : 499 ms SINUS TACHYCARDIA LEFT AXIS DEVIATION ABNORMAL ECG WHEN COMPARED WITH ECG OF 18-MAR-2017 00:36, T WAVE VARIATION Confirmed by RIP ARGUETA MD ([id number]) on 05/23/2017 1:45:30 AM Referred By: Confirmed By:RIP ARGUETA MD
[2017-05-23] MEDS: sitaGLIPtin PHOSPHATE 50 MG TABLET PO SCH (06:07)
[2017-05-23] MEDS: INSULIN SLIDING SCALE (NOVOLOG) 1 VIAL SQ SCH ×2 (06:07→11:57)
[2017-05-23] MEDS: glipiZIDE-XL 10 MG TAB.ER.24 (FP) PO SCH (06:07)
[2017-05-23] MEDS: morphine SO4 SUSTAINED ACTING 30 MG TABLET.SA PO SCH ×2 (06:08→14:04)
[2017-05-23] MEDS: ACETYLCYSTEINE 20% 200MG/ML 4 ML VIAL *FOR ORAL / INH USE ONLY PO SCH ×2 (06:10→14:05)
[2017-05-23 07:22] VITALS: TEMP 98
[2017-05-23] MEDS ORDERED: PT OWN MED DRAWER 7, Y5N ONE ×2 (08:56→12:05)
[2017-05-23] MEDS: PANTOPRAZOLE 40 MG TABLET (FP) PO SCH (09:11)
[2017-05-23] MEDS: SERTRALINE HCL 25 MG TABLET (FP) PO SCH (09:11)
[2017-05-23] MEDS: ACETAMINOPHEN 325 MG TABLET (FP) PO SCH (09:11)
[2017-05-23] MEDS: DOCUSATE SODIUM 100 MG CAPSULE (FP) PO SCH (09:11)
[2017-05-23] MEDS: amLODIPine BESYLATE 5 MG TABLET (FP) PO SCH (09:13)
[2017-05-23] MEDS: ALLOPURINOL 100 MG TABLET (FP) PO SCH (09:13)
[2017-05-23] MEDS: CALCIUM CARBONATE 650 MG TABLET PO SCH (09:15)
[2017-05-23] MEDS: morphine SULFATE IMMEDIATE RELEASE 30 MG TAB PO PRN (09:17)
[2017-05-23] MEDS: predniSONE 20 MG TABLET (UD) PO SCH (09:17)
[2017-05-23] MEDS: ALPRAZolam 0.25 MG TABLET PO PRN (09:18)
[2017-05-23 11:13] VITALS: BP 155/60; PULSE 84
[2017-05-23 12:32] LABS: BASO % 0.4 % (0-2.0); EOS % 0.1 % (0-4.5); MCH 22.7 pg (25.7-33.7); MEAN CELL VOLUME 75.8 fl (80-96); NEUT % 75.2 % (42.8-82.8); PLATELET COUNT 144 K/MM3 (134-434); RDW 20.8 % (11.6-15.6); WHITE BLOOD COUNT 15.7 K/mm3 (4.0-10.0)
--- NOTE | 2017-05-23 12:35 | PN ---
Progress Note (short form) - Note Progress Note: Denies any complaints Cor: RSR, No murmurs, No gallops Lungs: Clear to P&A Abd: Soft, Normal bowel sounds, No organomegaly Ext:No significant edema Last Vital Signs Temp Pulse Resp BP Pulse Ox 98 F 84 20 155/60 96 05/23/17 06:00 05/23/17 10:00 05/23/17 10:00 05/23/17 10:00 05/23/17 09:00 Current Medications Generic Name Dose Route Start Last Admin Trade Name Freq PRN Reason Stop Dose Admin Acetaminophen 650 mg 05/20/17 10:00 05/23/17 09:11 Tylenol - PO 650 mg DAILY PRASHANT Administration Acetylcysteine 1,200 mg 05/22/17 11:00 05/23/17 06:10 Mucomyst 20 Oral / Inh Use Only* PO 05/23/17 23:01 1,200 mg Q12H PRASHANT Administration Albuterol Sulfate 2 puff 05/20/17 04:00 Ventolin Hfa Inhaler - IH Q4H PRN Allopurinol 150 mg 05/20/17 10:00 05/23/17 09:13 Zyloprim - PO 150 mg DAILY PRASHANT Administration Alprazolam 0.5 mg 05/20/17 03:55 05/23/17 09:18 Xanax - PO 0.5 mg Q8H PRN Administration ANXIETY Amlodipine Besylate 5 mg 05/20/17 10:00 05/23/17 09:13 Norvasc - PO 5 mg DAILY PRASHANT Administration Calcium Carbonate 650 mg 05/20/17 10:00 05/23/17 09:15 Calcium Carbonate - PO 650 mg BID PRASHANT Administration Docusate Sodium 100 mg 05/20/17 10:00 05/23/17 09:11 Colace - PO 100 mg BID PRASHANT Administration Glipizide 10 mg 05/22/17 10:45 05/23/17 06:07 Glucotrol Xl - PO Not Given BIDAC PRASHANT Sodium Chloride 1,000 mls @ 42 mls/hr 05/22/17 11:00 05/22/17 16:00 Normal Saline - IV 42 mls/hr ASDIR PRASHANT Administration Insulin Aspart 1 vial 05/20/17 07:00 05/23/17 11:57 Novolog Vial Sliding Scale - SQ 2 unit TIDAC PRASHANT Administration Protocol Morphine Sulfate 60 mg 05/20/17 06:00 05/23/17 06:08 Ms Contin - PO 60 mg TID PRASHANT Administration Morphine Sulfate 15 mg 05/20/17 03:55 05/23/17 09:17 Msir - PO 15 mg QID PRN Administration breakthrough pain Pantoprazole Sodium 40 mg 05/20/17 10:00 05/23/17 09:11 Protonix - PO 40 mg DAILY PRASHANT Administration Prednisone 60 mg 05/21/17 10:00 05/23/17 09:17 Deltasone - PO 60 mg DAILY PRASHANT Administration Sertraline HCl 25 mg 05/20/17 10:00 05/23/17 09:11 Zoloft - PO 25 mg DAILY PRASHANT Administration Sitagliptin Phosphate 50 mg 05/20/17 07:00 05/23/17 06:07 Januvia - PO Not Given DAILY@0700 [facility] 66 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 CBC check on . She will call with results on Monday. f/u closely in office. CT scan reviewed, for OP f/u and possible PETCT. for D/c today
[2017-05-23 12:40] LABS: ANION GAP 7 (8-16); CALCIUM 8.3 mg/dL (8.5-10.1); CO2 28 mmol/L (21-32); CREATININE 1.2 mg/dL (0.55-1.02); GLUCOSE,RANDOM 195 mg/dL (74-106)
--- NOTE | 2017-05-23 13:07 | DS ---
Physical Examination Vital Signs: Vital Signs Temperature 36.6 C 05/23/17 06:00 Pulse Rate 84 05/23/17 10:00 Respiratory Rate 20 05/23/17 10:00 Blood Pressure 155/60 05/23/17 10:00 O2 Sat by Pulse Oximetry (%) 96 05/23/17 09:00 Constitutional: Yes: No Distress, Calm, Obese Cardiovascular: Yes: Regular Rate and Rhythm. No: Gallop, Murmur, Rub Respiratory: Yes: Regular, CTA Bilaterally. No: Rales, Rhonchi, Wheezes Gastrointestinal: Yes: Normal Bowel Sounds, Soft. No: Distention, Tenderness Extremities: Yes: WNL Edema: No Labs: CBC, BMP 05/23/17 12:12 05/23/17 12:12 Discharge Summary Reason For Visit: ANEMIA, IDIOPATHIC THROMBOCYTOPENIC Current Active Problems Acute ITP (Acute) Anemia (Acute) Anxiety (Acute) CKD stage 3 secondary to diabetes (Acute) HTN (hypertension) (Acute) ITP (idiopathic thrombocytopenic purpura) (Acute) Mantle cell lymphoma (Acute) Uncontrolled type 2 diabetes mellitus (Acute) Hospital Course: (1) Acute ITP Code(s): D69.3 - IMMUNE THROMBOCYTOPENIC PURPURA (2) Anemia Code(s): D64.9 - ANEMIA, UNSPECIFIED (3) Anxiety Code(s): F41.9 - ANXIETY DISORDER, UNSPECIFIED (4) CKD stage 3 secondary to diabetes Code(s): E11.22 - TYPE 2 DIABETES MELLITUS W DIABETIC CHRONIC KIDNEY DISEASE; N18.3 - CHRONIC KIDNEY DISEASE, STAGE 3 (MODERATE) (5) HTN (hypertension) Code(s): I10 - ESSENTIAL (PRIMARY) HYPERTENSION (6) Diabetes mellitus Code(s): E11.9 - TYPE 2 DIABETES MELLITUS WITHOUT COMPLICATIONS (7) Diaphragmatic hernia Code(s): K44.9 - DIAPHRAGMATIC HERNIA WITHOUT OBSTRUCTION OR GANGRENE Qualifiers: Obstruction and gangrene presence: without obstruction or gangrene Qualified Code(s): K44.9 - Diaphragmatic hernia without obstruction or gangrene (8) HTN (hypertension) Code(s): I10 - ESSENTIAL (PRIMARY) HYPERTENSION Qualifiers: Ms Painting is a very pleasant 66 year old female who comes in with thrombocytopenia secondary to acute ITP flare. She was admitted to the hospital and seen by hematology. She was started on steroids and her platelets improved. She was having worsening severe abdominal pain and dyspnea. A CT scan of the chest and abdomen were performed and reviewed. These are stable and she feels improved today. She is safe for discharge home, she will be continued on prednisone 40mg daily with close follow up with hematology. 32 minutes spent in preparation of this discharge Condition: Stable - Instructions Diet, Activity, Other Instructions: resume previous diet and activity Referrals: Rafael Ty MD [Staff Physician] - Subhash Mcfarlane MD [Primary Care Provider] - Disposition: HOME - Home Medications Comprehensive Discharge Medication List: Ambulatory Orders Sertraline HCl [Zoloft -] 25 mg PO DAILY 08/28/14 Alprazolam [Xanax] 0.5 mg PO Q8H PRN #0 tablet 09/10/14 Pantoprazole Sodium [Protonix -] 40 mg PO DAILY #0 tablet.ec 09/10/14 Morphine Sulfate 15 mg PO QID PRN 03/31/16 Allopurinol [Zyloprim -] 150 mg PO DAILY #60 tablet 04/07/16 Albuterol Sulfate Inhaler - [Ventolin HFA Inhaler -] 1 - 2 inh PO Q4H 08/09/16 Calcium Carbonate 648 mg PO BID 08/09/16 Acetaminophen [Tylenol .Regular Strength -] 650 mg PO DAILY tablet 10/29/16 Amlodipine Besylate [Norvasc -] 5 mg PO DAILY #0 tablet 10/29/16 Docusate Sodium [Colace -] 100 mg PO BID #60 tab-cap 10/29/16 Morphine *Sr* [MS Contin -] 60 mg PO TID #120 tab.sa MDD 180mg 12/28/16 Sitagliptin Phosphate [Januvia] 50 mg PO DAILY 03/18/17 Prednisone [Deltasone -] 40 mg PO DAILY #60 tablet 03/23/17 Glipizide Xl [Glucotrol Xl -] 10 mg PO BIDAC tab.er.24 05/23/17
[2017-05-23] MEDS: SODIUM CHLORIDE 1,000 ML IV SCH (14:04)
== END 2017-05-23 14:50 | disposition home or self-care (01) | DRG 813 ==
LOC: JER 21:56 → JERBED 05-20 01:17 → J7W 05-20 04:58
PROVIDERS: ADMIT Internal Medicine; ATTEND Internal Medicine
DX: D69.3 Immune thrombocytopenic purpura (principal); Z85.72 Personal history of non-Hodgkin lymphomas; E11.22 Type 2 diabetes mellitus with diabetic chronic kidney disease; E11.21 Type 2 diabetes mellitus with diabetic nephropathy; N18.3 Chronic kidney disease, stage 3 (moderate); Z79.84 Long term (current) use of oral hypoglycemic drugs; Z68.36 Body mass index [BMI] 36.0-36.9, adult; E66.9 Obesity, unspecified; Z87.891 Personal history of nicotine dependence; D64.9 Anemia, unspecified
CPT/HCPCS: 36415; 71010-TC; 71260-TC; 74177-TC; 80048; 80053; 83036; 85025; 85610; 86850; 86900; 86901; 87040; 87086; 93005; 93010; 99283-25; Q9967

== ENCOUNTER 2017-05-26 08:23 | Emergency (ER) | payer OTHER, MEDICARE ==
[2017-05-26 08:48] VITALS: BP 137/76; PULSE 68; TEMP 97.7; BMI 36.1
[2017-05-26 10:34] LABS: LYMPH # 3.3 (8-40); MCH 22.7 pg (25.7-33.7); MCHC 29.6 g/dl (32.0-36.0); MEAN CELL VOLUME 76.5 fl (80-96); MEAN PLT VOLUME 9.4 fl (7.5-11.1); MONO # 0.4 # (3.8-10.2); NEUT # 13.2 # (42.8-82.8); PLATELET COUNT 177 K/MM3 (134-434); RDW 21.3 % (11.6-15.6); WHITE BLOOD COUNT 16.8 K/mm3 (4.0-10.0)
[2017-05-26 10:41] LABS: INR 0.96 (0.82-1.09); PROTHROMBIN TIME (PATIENT) 10.9 SEC (9.98-11.88)
[2017-05-26 10:47] LABS: ALBUMIN 3.4 g/dl (3.4-5.0); ALK PHOS 63 U/L (45-117); ANION GAP 9 (8-16); BILIRUBIN,TOTAL 0.3 mg/dL (0.2-1.0); CALCIUM 8.6 mg/dL (8.5-10.1); CO2 25 mmol/L (21-32); CREATININE 1.2 mg/dL (0.55-1.02); GLUCOSE,RANDOM 206 mg/dL (74-106); SGPT/ALT 17 U/L (12-78); TOT PROT 7.6 g/dl (6.4-8.2)
[2017-05-26 10:48] LABS: SGOT/AST 19 U/L (15-37)
--- NOTE | 2017-05-26 10:52 | PDOC ---
History of Present Illness - General Chief Complaint: Revisit, Lab Variance Stated Complaint: LOW BLOOD COUNT (PCP SENT) Time Seen by Provider: 05/26/17 09:13 - History of Present Illness Initial Comments: 05/26/17 10:47 "The patient is a 66 year old female with a significant PMH of HTN, NIDDM, Non- hodgkins lymphoma (not on any active lymphoma treatment), diaphragmatic hernia, Diverticulitis. renal calculi, UTI, ITP (s/p splenectomy), anxiety and depression who presents to the emergency department after having outpt labs that revealed a platelet count of 22 last night. The patient states she was discharged from our facilities on Monday with a platelet count of 145 after treatment for an ITP flare. She is currently on a prednisone taper, prescribed by her photoengraver apprentice Dr. Ty. Pt denies any complaints. The patient denies any bleeding, bruising, or rashes. The patient denies chest pain, shortness of breath, headache and dizziness. Denies fever, chills, nausea, vomit, diarrhea and constipation. Allergies: Ciprofloxacin, HCl, levofloacin, atorvastatin calcium Social history: Former smoker (quit in 2001) No reported alcohol or drug use. Android Architect: Dr. Ty PCP: Dr. Mcfarlane " Past History - Past Medical History Allergies/Adverse Reactions: Allergies Allergy/AdvReac Type Severity Reaction Status Date / Time ciprofloxacin HCl Allergy Intermediate Itching Verified 05/26/17 08:49 [From Cipro] levofloxacin [From Levaquin] Allergy Intermediate Rash Verified 05/26/17 08:49 atorvastatin calcium Allergy Mild muscle Verified 05/26/17 08:49 [From Lipitor] aches Home Medications: Ambulatory Orders Sertraline HCl [Zoloft -] 25 mg PO DAILY 08/28/14 Alprazolam [Xanax] 0.5 mg PO Q8H PRN #0 tablet 09/10/14 Pantoprazole Sodium [Protonix -] 40 mg PO DAILY #0 tablet.ec 09/10/14 Morphine Sulfate 15 mg PO QID PRN 03/31/16 Allopurinol [Zyloprim -] 150 mg PO DAILY #60 tablet 04/07/16 Albuterol Sulfate Inhaler - [Ventolin HFA Inhaler -] 1 - 2 inh PO PRN 08/09/16 Calcium Carbonate 648 mg PO BID 08/09/16 Amlodipine Besylate [Norvasc -] 5 mg PO DAILY #0 tablet 10/29/16 Docusate Sodium [Colace -] 100 mg PO BID #60 tab-cap 10/29/16 Morphine *Sr* [MS Contin -] 60 mg PO TID #120 tab.sa MDD 180mg 12/28/16 Sitagliptin Phosphate [Januvia] 50 mg PO DAILY 03/18/17 Prednisone [Deltasone -] 40 mg PO DAILY #60 tablet 03/23/17 Glipizide Xl [Glucotrol Xl -] 10 mg PO BIDAC tab.er.24 05/23/17 Acetaminophen [Tylenol .Regular Strength -] 650 mg PO PRN 05/26/17 Anemia: No (ICP) Asthma: No Cancer: Yes (lymphoma) Cardiac Disorders: No CVA: No COPD: No CHF: No Dementia: No Diabetes: Yes (niddm) GI Disorders: Yes (DIVERTICULITIS) Disorders: Yes (bladder dysfunction) HTN: No Hypercholesterolemia: No Liver Disease: No Psychiatric Problems: Yes (ANXIETY) Seizures: No Thyroid Disease: No - Surgical History Abdominal Surgery: Yes (SPLEENECTOMY) Appendectomy: No Cardiac Surgery: No Cholecystectomy: No Lung Surgery: No Neurologic Surgery: Yes (cervical laminectomy x 2) Orthopedic Surgery: Yes (Anterior and posterior cervical laminectomy with fusion ) - Immunization History Immunization Up to Date: Yes - Suicide/Smoking/Psychosocial Hx Smoking Status: No Smoking History: Former smoker Have you smoked in the past 12 months: Yes Number of Cigarettes Smoked Daily: 0 If you are a former smoker, when did you quit?: 2001 Information on smoking cessation initiated: No Hx Alcohol Use: No Drug/Substance Use Hx: No Substance Use Type: None Hx Substance Use Treatment: No Review of Systems - Review of Systems Comments:: 05/26/17 10:49 "GENERAL/CONSTITUTIONAL: No fever or chills. No weakness. HEAD, EYES, EARS, NOSE AND THROAT: No change in vision. No ear pain or discharge. No sore throat. CARDIOVASCULAR: No chest pain or shortness of breath. RESPIRATORY: No cough, wheezing, or hemoptysis. GASTROINTESTINAL: No nausea, vomiting, diarrhea or constipation. GENITOURINARY: No dysuria, frequency, or change in urination. MUSCULOSKELETAL: No joint or muscle swelling or pain. No neck or back pain. SKIN: No rash NEUROLOGIC: No headache, vertigo, loss of consciousness, or change in strength/ sensation. ENDOCRINE: No increased thirst. No abnormal weight change. HEMATOLOGIC/LYMPHATIC: No anemia, easy bleeding, or history of blood clots. ALLERGIC/IMMUNOLOGIC: No hives or skin allergy. " *Physical Exam - Vital Signs Last Vital Signs Temp Pulse Resp BP Pulse Ox 97.7 F 68 20 137/76 98 05/26/17 08:44 05/26/17 08:44 05/26/17 08:44 05/26/17 08:44 05/26/17 08:44 - Physical Exam Comments: 05/26/17 10:49 "GENERAL: Awake, alert, and fully oriented, in no acute distress HEAD: No signs of trauma EYES: PERRLA, EOMI, sclera anicteric, conjunctiva clear ENT: Auricles normal inspection, hearing grossly normal, nares patent, oropharynx clear without exudates. Moist mucosa NECK: Nontender, no stepoffs, Normal ROM, supple, no lymphadenopathy, JVD, or masses LUNGS: Breath sounds equal, clear to auscultation bilaterally. No wheezes, and no crackles HEART: Regular rate and rhythm, normal S1 and S2, no murmurs, rubs or gallops ABDOMEN: Soft, nontender, normoactive bowel sounds. No guarding, no rebound. No masses EXTREMITIES: Normal range of motion, no edema. No clubbing or cyanosis. No cords, erythema, or tenderness NEUROLOGICAL: Cranial nerves II through XII intact. 5/5 strength and sensation in all extremities, Normal speech, normal gait SKIN: Warm, Dry, normal turgor, no rashes or lesions noted. " ED Treatment Course - LABORATORY CBC & Chemistry Diagram: 05/26/17 10:13 05/26/17 10:15 - ADDITIONAL ORDERS Additional order review: Laboratory Results 05/26/17 10:15 PT with INR 10.90 INR 0.96 05/26/17 05/26/17 10:13 09:06 RBC 4.52 Cancelled MCV 76.5 L Cancelled MCHC 29.6 L Cancelled RDW 21.3 H Cancelled MPV 9.4 Cancelled Neutrophils % No Result Required. Cancelled Lymphocytes % No Result Required. Cancelled Monocytes % Cancelled Eosinophils % Cancelled Basophils % Cancelled Medical Decision Making - Medical Decision Making 05/26/17 10:50 66 F with ITP on prednisone taper for recent flare, presenting to ER after outpt labs showed plt count of 22. Pt without any s/s thrombocytopenia. - Labs 05/26/17 10:54 CBC,CMP WBC 16.8 K/mm3 (4.0-10.0) H 05/26/17 10:13 Corrected WBC (auto) Cancelled 05/26/17 09:06 RBC 4.52 M/mm3 (3.60-5.2) 05/26/17 10:13 Hgb 10.3 GM/dL (10.7-15.3) L 05/26/17 10:13 Hct 34.6 % (32.4-45.2) 05/26/17 10:13 MCV 76.5 fl (80-96) L 05/26/17 10:13 MCH 22.7 pg (25.7-33.7) L 05/26/17 10:13 MCHC 29.6 g/dl (32.0-36.0) L 05/26/17 10:13 RDW 21.3 % (11.6-15.6) H 05/26/17 10:13 Plt Count 177 K/MM3 (134-434) D 05/26/17 10:13 MPV 9.4 fl (7.5-11.1) 05/26/17 10:13 Absolute Neuts (auto) 13.2 # (42.8-82.8) L 05/26/17 10:13 Absolute Lymphs (auto) 3.3 (8-40) L 05/26/17 10:13 Absolute Monos (auto) 0.4 # (3.8-10.2) L 05/26/17 10:13 Absolute Eos (auto) 0.0 # (0-4.5) 05/26/17 10:13 Absolute Basos (auto) 0.0 # (0.1-1) L 05/26/17 10:13 Neutrophils % No Result Required. 05/26/17 10:13 Lymphocytes % No Result Required. 05/26/17 10:13 Monocytes % Cancelled 05/26/17 09:06 Eosinophils % Cancelled 05/26/17 09:06 Basophils % Cancelled 05/26/17 09:06 Nucleated RBC % Cancelled 05/26/17 09:06 Platelet Estimate Cancelled 05/26/17 09:06 Platelet Comment Cancelled 05/26/17 09:06 Sodium 135 mmol/L (136-145) L 05/26/17 10:15 Potassium 5.3 mmol/L (3.5-5.1) H D 05/26/17 10:15 Chloride 101 mmol/L (98-107) 05/26/17 10:15 Carbon Dioxide 25 mmol/L (21-32) 05/26/17 10:15 Anion Gap 9 (8-16) 05/26/17 10:15 BUN 32 mg/dL (7-18) H D 05/26/17 10:15 Creatinine 1.2 mg/dL (0.55-1.02) H 05/26/17 10:15 Creat Clearance w eGFR 44.95 (>60) 05/26/17 10:15 Random Glucose 206 mg/dL (74-106) H 05/26/17 10:15 Calcium 8.6 mg/dL (8.5-10.1) 05/26/17 10:15 Total Bilirubin 0.3 mg/dL (0.2-1.0) D 05/26/17 10:15 AST 19 U/L (15-37) 05/26/17 10:15 ALT 17 U/L (12-78) 05/26/17 10:15 Alkaline Phosphatase 63 U/L (45-117) 05/26/17 10:15 Total Protein 7.6 g/dl (6.4-8.2) 05/26/17 10:15 Albumin 3.4 g/dl (3.4-5.0) 05/26/17 10:15 Pt with plt 177 in ER today. Yesterday's lab result with plt 22 likely lab error. Pt with no clinical signs/ symptoms of thrombocytopenia today. Labs otherwise unremarkable. (K 5.3 but slightly hemolyzed) Pt well appearing, without complaints. Vitals normal, clinically stable for DC. I discussed the physical exam findings, ancillary test results and final diagnoses with the patient. I answered all of the patient's questions. The patient was satisfied with the care received and felt comfortable with the discharge plan and treatment plan. The patient agrees to follow up with the primary care physician within 24-72 hours. *DC/Admit/Observation/Transfer Diagnosis at time of Disposition: ITP (idiopathic thrombocytopenic purpura) - Discharge Dispostion Disposition: HOME - Referrals Referrals: Subhash Mcfarlane MD [Primary Care Provider] - - Patient Instructions Printed Discharge Instructions: DI for Immune Thrombocytopenic Purpura Additional Instructions: Please call Dr. Ty today to discuss the management of your ITP. Your platelet count was 177 in the ER today. If you experience any bruising, rashes, bleeding, dark or bloody stools, or any other concerning symptoms, return to the ER immediately. - Post Discharge Activity - Attestations Physician Attestion: 05/26/17 10:57 I, Dr. Jaya Alberts MD, attest that this document has been prepared under my direction and personally reviewed by me in its entirety. I further attest, that it accurately reflects all work, treatment, procedures and medical decision -making performed by me.
[2017-05-26 15:21] LABS: ANISOCYTOSIS 0; HYPOCHROMIA 2+; MACROCYTOSIS 0; METAMYELOCYTE 0 % (0-2); MICROCYTOSIS 1+; MYELOCYTE 0 % (0-2); PLATELET ESTIMATE NORMAL; POIKILOCYTOSIS 0; POLYCHROMASIA 0; REACTIVE LYMPHOCYTES 0 % (0-80); TARGET CELLS 2+
== END 2017-05-26 11:06 | disposition home or self-care (01) ==
LOC: JER 08:23
DX: D69.3 Immune thrombocytopenic purpura (principal); I10 Essential (primary) hypertension; E11.9 Type 2 diabetes mellitus without complications; F41.8 Other specified anxiety disorders; C85.80 Other specified types of non-Hodgkin lymphoma, unspecified site
CPT/HCPCS: 36415; 80053; 85025; 85610; 86850; 86900; 86901; 99282-25

== ENCOUNTER 2017-06-14 15:57 | Inpatient (IN) | payer OTHER, MEDICARE ==
[2017-06-14 18:44] VITALS: BMI 37.2
[2017-06-14] MEDS ORDERED: ACETAMINOPHEN 325 MG TABLET (FP) PO PRN (19:09)
[2017-06-14 20:27] LABS: EOS % 0.1 % (0-4.5); HEMOGLOBIN 9.4 GM/dL (10.7-15.3)
[2017-06-14 20:40] LABS: BASO % 0.4 % (0-2.0); HEMATOCRIT 30.7 % (32.4-45.2); LYMPH % 18.6 % (8-40); MCH 22.9 pg (25.7-33.7); MCHC 30.5 g/dl (32.0-36.0); MEAN CELL VOLUME 75.2 fl (80-96); MEAN PLT VOLUME 9.9 fl (7.5-11.1); NEUT % 73.9 % (42.8-82.8); PLATELET COUNT 58 K/MM3 (134-434); RBC 4.08 M/mm3 (3.60-5.2); WHITE BLOOD COUNT 13.7 K/mm3 (4.0-10.0)
[2017-06-14 20:58] LABS: ALBUMIN 2.9 g/dl (3.4-5.0); ANION GAP 5 (8-16); BILIRUBIN,TOTAL 0.3 mg/dL (0.2-1.0); BLOOD UREA NITROGEN 41 mg/dL (7-18); CALCIUM 8.5 mg/dL (8.5-10.1); CHLORIDE 104 mmol/L (98-107); CO2 30 mmol/L (21-32); GLUCOSE,RANDOM 78 mg/dL (74-106); POTASSIUM 4.3 mmol/L (3.5-5.1); SGOT/AST 5 U/L (15-37); SGPT/ALT 14 U/L (12-78); SODIUM 139 mmol/L (136-145); TOT PROT 6.6 g/dl (6.4-8.2)
[2017-06-14 20:59] LABS: ALK PHOS 64 U/L (45-117)
[2017-06-14] MEDS: CALCIUM CARBONATE 650 MG TABLET PO SCH (22:10)
[2017-06-14] MEDS: DOCUSATE SODIUM 100 MG CAPSULE (FP) PO SCH (22:10)
[2017-06-14] MEDS: morphine SO4 SUSTAINED ACTING 30 MG TABLET.SA PO SCH (22:10)
[2017-06-15] MEDS: ALPRAZolam 0.25 MG TABLET PO PRN ×3 (00:18→23:49)
[2017-06-15] MEDS ORDERED: glipiZIDE 5 MG TABLET (FP) ONE ×2 (06:18→17:14)
[2017-06-15] MEDS: sitaGLIPtin PHOSPHATE 50 MG TABLET PO SCH (06:42)
[2017-06-15] MEDS: morphine SO4 SUSTAINED ACTING 30 MG TABLET.SA PO SCH ×3 (06:43→21:19)
[2017-06-15] MEDS: glipiZIDE 10 MG TABLET (FP) PO SCH ×2 (06:50→17:17)
[2017-06-15] MEDS: SERTRALINE HCL 25 MG TABLET (FP) PO SCH (10:23)
[2017-06-15] MEDS: DOCUSATE SODIUM 100 MG CAPSULE (FP) PO SCH ×2 (10:23→21:19)
[2017-06-15] MEDS: amLODIPine BESYLATE 5 MG TABLET (FP) PO SCH (10:23)
[2017-06-15] MEDS: PANTOPRAZOLE 40 MG TABLET (FP) PO SCH (10:23)
[2017-06-15] MEDS: CALCIUM CARBONATE 650 MG TABLET PO SCH ×2 (10:24→21:19)
[2017-06-15] MEDS: ALLOPURINOL 100 MG TABLET (FP) PO SCH (10:24)
[2017-06-15] MEDS: morphine SULFATE IMMEDIATE RELEASE 30 MG TAB PO PRN (10:39)
--- NOTE | 2017-06-15 11:05 | HP ---
Admitting History and Physical - Primary Care Physician PCP: Subhash Mcfarlane - Admission Chief Complaint: I'm here for IVIG History of Present Illness: Ms Painting is a very pleasant 66 year old female who comes in for IVIg. She has a history of ITP and has been managed as an outpatient with prednisone. However she recently had her cbc checked and was found to have platelets in the 30s and was directly admitted for treatment. She is asymptomatic from this and has not had any bleeding. She has a history of chronic pain but this is controlled. She denies fevers, chills, lightheadedness, dizziness, chest pain or pressure, worsening shortness of breath (she has chronic dyspnea on exertion), nausea, vomiting, diarrhea, constipation, difficulty or pain on urination, or worsening swelling. History Source: Patient Limitations to Obtaining History: No Limitations - Past Medical History Cardiovascular: Yes: HTN Pulmonary: Yes: Other (diaphragmatic hernia) Gastrointestinal: Yes: Diverticulitis (osteoarthritis right hip) Renal/: Yes: Renal Calculi, UTI, Other (bladder dysfunction) Heme/Onc: Yes: Thrombocytopenia (s/p splenectomy), Other (lymphoma -Mantle cell) Psych: Yes: Anxiety, Depression Musculoskeletal: Yes: Chronic low back pain, Osteoarthritis (right hip) Rheumatology: Yes: Other (degenerative spine disease) Endocrine: Yes: Diabetes Mellitus - Past Surgical History Past Surgical History: Yes: Laminectomy (cervical laminectomy x2 (2001)), Splenectomy, Thoracotomy - Smoking History Smoking history: Former smoker Have you smoked in the past 12 months: No Aproximately how many cigarettes per day: 0 If you are a former smoker, when did you quit?: 2001 - Alcohol/Substance Use Hx Alcohol Use: No History of Substance Use: reports: None - Social History Usual Living Arrangement: Yes: With Significant Other ADL: Independent 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, , 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 History of Recent Travel: No Home Medications - Allergies Allergies/Adverse Reactions: Allergies Allergy/AdvReac Type Severity Reaction Status Date / Time ciprofloxacin HCl Allergy Intermediate Itching Verified 05/26/17 08:49 [From Cipro] levofloxacin [From Levaquin] Allergy Intermediate Rash Verified 05/26/17 08:49 atorvastatin calcium Allergy Mild muscle Verified 05/26/17 08:49 [From Lipitor] aches - Home Medications Home Medications: Ambulatory Orders Sertraline HCl [Zoloft -] 25 mg PO DAILY 08/28/14 Alprazolam [Xanax] 0.5 mg PO Q8H PRN #0 tablet 09/10/14 Pantoprazole Sodium [Protonix -] 40 mg PO DAILY #0 tablet.ec 09/10/14 Morphine Sulfate 15 mg PO QID PRN 03/31/16 Allopurinol [Zyloprim -] 150 mg PO DAILY #60 tablet 04/07/16 Albuterol Sulfate Inhaler - [Ventolin HFA Inhaler -] 1 - 2 inh PO PRN 08/09/16 Calcium Carbonate 648 mg PO BID 08/09/16 Amlodipine Besylate [Norvasc -] 5 mg PO DAILY #0 tablet 10/29/16 Docusate Sodium [Colace -] 100 mg PO BID #60 tab-cap 10/29/16 Morphine *Sr* [MS Contin -] 60 mg PO TID #120 tab.sa MDD 180mg 12/28/16 Sitagliptin Phosphate [Januvia] 50 mg PO DAILY 03/18/17 Prednisone [Deltasone -] 40 mg PO DAILY #60 tablet 03/23/17 Glipizide Xl [Glucotrol Xl -] 10 mg PO BIDAC tab.er.24 05/23/17 Acetaminophen [Tylenol .Regular Strength -] 650 mg PO PRN 05/26/17 Family Disease History - Family Disease History Family Disease History: Heart Disease: Mother, Other: Father (thrombocytopenia) , Daughter (hypothyroidism) Review of Systems Findings/Remarks: full review of systems obtained, as per HPI and otherwise negative. Physical Examination Vital Signs: Vital Signs Temperature 36.7 C 06/15/17 05:38 Pulse Rate 62 06/15/17 05:38 Respiratory Rate 20 06/15/17 05:38 Blood Pressure 132/63 06/15/17 05:38 O2 Sat by Pulse Oximetry (%) 97 06/14/17 20:09 Constitutional: Yes: No Distress, Calm, Obese Eyes: Yes: Conjunctiva Clear, EOM Intact, PERRL HENT: Yes: Atraumatic, Normocephalic Cardiovascular: Yes: Regular Rate and Rhythm. No: Gallop, Murmur, Rub Respiratory: Yes: Regular, CTA Bilaterally. No: Rales, Rhonchi, Wheezes Gastrointestinal: Yes: Normal Bowel Sounds, Soft. No: Distention, Tenderness Extremities: Yes: WNL Edema: Yes Edema: LLE: Trace, RLE: Trace Labs: CBC, BMP 06/14/17 20:15 06/14/17 20:15 Problem List - Problems (1) Acute ITP Assessment/Plan: -patient with acute flair -case d/w hematology -place on IV solumedrol -start IVIg x5 days -monitor for improvement Code(s): D69.3 - IMMUNE THROMBOCYTOPENIC PURPURA (2) CKD stage 3 secondary to diabetes Assessment/Plan: -at baseline -monitor Code(s): E11.22 - TYPE 2 DIABETES MELLITUS W DIABETIC CHRONIC KIDNEY DISEASE; N18.3 - CHRONIC KIDNEY DISEASE, STAGE 3 (MODERATE) (3) Diabetes mellitus Assessment/Plan: -well controlled -continue home regimen -diabetic diet Code(s): E11.9 - TYPE 2 DIABETES MELLITUS WITHOUT COMPLICATIONS (4) Diaphragmatic hernia Assessment/Plan: -present Code(s): K44.9 - DIAPHRAGMATIC HERNIA WITHOUT OBSTRUCTION OR GANGRENE Qualifiers: Obstruction and gangrene presence: without obstruction or gangrene Qualified Code(s): K44.9 - Diaphragmatic hernia without obstruction or gangrene (5) HTN (hypertension) Assessment/Plan: -controlled -continue norvasc Code(s): I10 - ESSENTIAL (PRIMARY) HYPERTENSION Qualifiers: (6) Spinal stenosis Assessment/Plan: -with chronic pain -controlled on ms contin Code(s): M48.00 - SPINAL STENOSIS, SITE UNSPECIFIED
--- NOTE | 2017-06-15 11:22 | PN ---
Progress Note (short form) - Note Progress Note: Seen and examined this am. Was sent in last night for dropping platelet counts. well known from the previous admissions. O/E: General: NAD Cor: RSR, No murmurs, No gallops Lungs: Clear to P&A Abd: Soft, Normal bowel sounds, No organomegaly Ext:No significant edema Last Vital Signs Temp Pulse Resp BP Pulse Ox 98.1 F 62 20 132/63 97 06/15/17 05:38 06/15/17 05:38 06/15/17 05:38 06/15/17 05:38 06/14/17 20:09 CBC, BMP 06/14/17 20:15 06/14/17 20:15 Current Medications Generic Name Dose Route Start Last Admin Trade Name Freq PRN Reason Stop Dose Admin Acetaminophen 650 mg 06/14/17 19:09 Tylenol - PO Q6H PRN FEVER Allopurinol 150 mg 06/15/17 10:00 06/15/17 10:24 Zyloprim - PO 150 mg DAILY PRASHANT Administration Alprazolam 0.5 mg 06/14/17 19:11 06/15/17 00:18 Xanax - PO 0.5 mg Q8H PRN Administration Amlodipine Besylate 5 mg 06/15/17 10:00 06/15/17 10:23 Norvasc - PO 5 mg DAILY PRASHANT Administration Calcium Carbonate 650 mg 06/14/17 22:00 06/15/17 10:24 Calcium Carbonate - PO 650 mg BID PRASHANT Administration Docusate Sodium 100 mg 06/14/17 22:00 06/15/17 10:23 Colace - PO 100 mg BID PRASHANT Administration Glipizide 10 mg 06/15/17 07:00 06/15/17 06:50 Glucotrol - PO 10 mg BIDAC PRASHANT Administration Immune Globulin 40 gm 06/15/17 11:30 Gamunex - IVPB 06/19/17 10:01 DAILY PRASHANT Morphine Sulfate 60 mg 06/14/17 22:00 06/15/17 06:43 Ms Contin - PO 60 mg TID PRASHANT Administration Morphine Sulfate 15 mg 06/14/17 19:16 06/15/17 10:39 Msir - PO 15 mg Q6H PRN Administration Pantoprazole Sodium 40 mg 06/15/17 10:00 01/11/18 10:23 Protonix - PO 40 mg DAILY PRASHANT Administration Prednisone 40 mg 06/15/17 11:15 Deltasone - PO DAILY PRASHANT Sertraline HCl 25 mg 06/15/17 10:00 06/15/17 10:23 Zoloft - PO 25 mg DAILY PRASHANT Administration Sitagliptin Phosphate 50 mg 06/15/17 07:00 06/15/17 06:42 Januvia - PO 50 mg DAILY@0700 PRASHANT Administration 66 y/o patient with h/o mantle cell lymphoma, ITP frequency of relapses increased, last marrow 04/2016, with WALT of Mantle cell. Last CT scan reviewed, will need Out Pt PETCT, she is aware. once discharged from the hospitalization, will need OP PET CT and consideration for Rituxan x4 (weekly ) stat labs will start 40mg prednisone, no taper IVIG D1 400mg/kg starting today. aware.
[2017-06-15] MEDS ORDERED: predniSONE 20 MG TABLET (UD) PO SCH (11:30)
[2017-06-15 12:00] LABS: HEMATOCRIT 32.5 % (32.4-45.2); HEMOGLOBIN 9.6 GM/dL (10.7-15.3); MCH 22.6 pg (25.7-33.7); MCHC 29.5 g/dl (32.0-36.0); MEAN CELL VOLUME 76.6 fl (80-96); MEAN PLT VOLUME 9.1 fl (7.5-11.1); RBC 4.24 M/mm3 (3.60-5.2); RDW 20.6 % (11.6-15.6); WHITE BLOOD COUNT 11.4 K/mm3 (4.0-10.0)
[2017-06-15] MEDS ORDERED: IMMUNE GLOBULIN (IgG) 10 GM VIAL IVPB SCH (12:00)
[2017-06-15 12:40] LABS: ALBUMIN 2.9 g/dl (3.4-5.0); ALK PHOS 61 U/L (45-117); ANION GAP 6 (8-16); BILIRUBIN,TOTAL 0.2 mg/dL (0.2-1.0); BLOOD UREA NITROGEN 39 mg/dL (7-18); CALCIUM 8.2 mg/dL (8.5-10.1); CHLORIDE 101 mmol/L (98-107); CO2 31 mmol/L (21-32); CREATININE 1.2 mg/dL (0.55-1.02); GLUCOSE,RANDOM 86 mg/dL (74-106); POTASSIUM 4.1 mmol/L (3.5-5.1); SGOT/AST 7 U/L (15-37); SGPT/ALT 13 U/L (12-78); SODIUM 138 mmol/L (136-145); TOT PROT 6.4 g/dl (6.4-8.2)
[2017-06-15 13:27] LABS: PLATELET COUNT 40 K/MM3 (134-434)
[2017-06-15] MEDS: ACETAMINOPHEN 325 MG TABLET (FP) PO SCH (14:46)
[2017-06-15] MEDS: methylPREDNISolone NA SUCC 40 MG/1 ML VIAL IVPUSH SCH (14:46)
[2017-06-15] MEDS: IMMUNE GLOB,GAM CAPRYLATE(IGG) 40 GM IVPB SCH (15:14)
[2017-06-16] MEDS ORDERED: glipiZIDE 5 MG TABLET (FP) ONE (06:15)
[2017-06-16] MEDS: morphine SO4 SUSTAINED ACTING 30 MG TABLET.SA PO SCH ×3 (06:35→21:25)
[2017-06-16 08:24] LABS: HEMATOCRIT 32.8 % (32.4-45.2); HEMOGLOBIN 9.7 GM/dL (10.7-15.3); MCH 22.5 pg (25.7-33.7); MCHC 29.7 g/dl (32.0-36.0); MEAN CELL VOLUME 75.8 fl (80-96); MEAN PLT VOLUME 10.4 fl (7.5-11.1); PLATELET COUNT 92 K/MM3 (134-434); RBC 4.32 M/mm3 (3.60-5.2); RDW 20.4 % (11.6-15.6)
[2017-06-16 09:03] LABS: ANION GAP 7 (8-16); BLOOD UREA NITROGEN 35 mg/dL (7-18); CALCIUM 9.1 mg/dL (8.5-10.1); CHLORIDE 99 mmol/L (98-107); CO2 30 mmol/L (21-32); GLUCOSE,RANDOM 81 mg/dL (74-106); MAGNESIUM 2.4 mg/dL (1.8-2.4); PHOSPHOROUS 5.1 mg/dL (2.5-4.9); POTASSIUM 4.4 mmol/L (3.5-5.1); SODIUM 136 mmol/L (136-145)
[2017-06-16 09:05] LABS: CREATININE 1.2 mg/dL (0.55-1.02)
[2017-06-16 10:29] LABS: ANISOCYTOSIS 1+; MACROCYTOSIS 0; PLATELET ESTIMATE DECREASED; TARGET CELLS 3+
[2017-06-16] MEDS: glipiZIDE 10 MG TABLET (FP) PO SCH ×2 (10:31→17:44)
[2017-06-16] MEDS: sitaGLIPtin PHOSPHATE 50 MG TABLET PO SCH (10:31)
[2017-06-16] MEDS: amLODIPine BESYLATE 5 MG TABLET (FP) PO SCH (10:34)
[2017-06-16] MEDS: DOCUSATE SODIUM 100 MG CAPSULE (FP) PO SCH ×2 (10:34→21:25)
[2017-06-16] MEDS: PANTOPRAZOLE 40 MG TABLET (FP) PO SCH (10:35)
[2017-06-16] MEDS: SERTRALINE HCL 25 MG TABLET (FP) PO SCH (10:35)
[2017-06-16] MEDS: ALLOPURINOL 100 MG TABLET (FP) PO SCH (10:35)
--- NOTE | 2017-06-16 11:30 | PN ---
Progress Note (short form) - Note Progress Note: Patient seen and examined Admitted with thrombocytopenia History of ITP and Mantle cell lymphoma Previous therapy with steroids, Gamma globulin , and Rituxin for ITP. Last Vital Signs Temp Pulse Resp BP Pulse Ox 97.9 F 61 20 141/76 94 L 06/15/17 22:00 06/15/17 22:00 06/15/17 22:00 06/15/17 22:00 06/15/17 21:00 HEENT: DENEEN, EOM Intact Oropharynx: No thrush, No mucositis Neck: Supple Nodes: Without adenopathy Breasts: Without masses Cor: RSR, No murmurs, No gallops Lungs: rales bilaterally bases Abd: Soft, Normal bowel sounds, No organomegaly, minimally LUQ pains Ext:No significant edema Skin: No rashes, Integument intact ROS- No headaches, diplopia, epistaxis, dysphagia, chest pains, fevers, sweats, night swats, nausea, emesis, diarrhea, constipation, dysuria, hematuria. Positive for SOB, back pains CBC, BMP 06/16/17 06:35 06/16/17 06:35 Current Medications Generic Name Dose Route Start Last Admin Trade Name Freq PRN Reason Stop Dose Admin Acetaminophen 650 mg 06/14/17 19:09 Tylenol - PO Q6H PRN FEVER Acetaminophen 650 mg 06/15/17 12:30 06/15/17 14:46 Tylenol - PO 06/19/17 18:00 650 mg Q24H PRASHANT Administration Allopurinol 150 mg 06/15/17 10:00 06/16/17 10:35 Zyloprim - PO 150 mg DAILY PRASHANT Administration Alprazolam 0.5 mg 06/14/17 19:11 06/15/17 23:49 Xanax - PO 0.5 mg Q8H PRN Administration Amlodipine Besylate 5 mg 06/15/17 10:00 06/16/17 10:34 Norvasc - PO 5 mg DAILY PRASHANT Administration Calcium Carbonate 650 mg 06/14/17 22:00 06/15/17 21:19 Calcium Carbonate - PO 650 mg BID PRASHANT Administration Diphenhydramine HCl 25 mg 06/15/17 12:30 06/15/17 14:50 Benadryl Injection - IVPB 06/19/17 18:00 25 mg Q24H PRASHANT Administration Docusate Sodium 100 mg 06/14/17 22:00 06/16/17 10:34 Colace - PO 100 mg BID PRASHANT Administration Glipizide 10 mg 06/15/17 07:00 06/16/17 10:31 Glucotrol - PO 10 mg BIDAC PRASHANT Administration Immune Globulin 400 mls @ 62 mls/hr 06/15/17 12:00 06/15/17 15:14 Gamunex-C IVPB 06/19/17 16:28 62 mls/hr DAILY PRASHANT Administration Methylprednisolone Sodium Succinate 40 mg 06/15/17 12:30 06/15/17 14:46 Solu-Medrol - IVPUSH 06/19/17 18:00 40 mg Q24H PRASHANT Administration Morphine Sulfate 60 mg 06/14/17 22:00 06/16/17 06:35 Ms Contin - PO 60 mg TID PRASHANT Administration Morphine Sulfate 15 mg 06/14/17 19:16 06/15/17 10:39 Msir - PO 15 mg Q6H PRN Administration Pantoprazole Sodium 40 mg 06/15/17 10:00 06/16/17 10:35 Protonix - PO 40 mg DAILY PRASHANT Administration Sertraline HCl 25 mg 06/15/17 10:00 06/16/17 10:35 Zoloft - PO 25 mg DAILY PRASHANT Administration Sitagliptin Phosphate 50 mg 06/15/17 07:00 06/16/17 10:31 Januvia - PO 50 mg DAILY@0700 PRASHANT Administration Impression: Refractory ITP-- for gamma globulin Mantle cell lymphoma-- for PET post treatment Diabetes Mellitus- under treatment - exacerbated by steroid therapy Essential Hypertension- under treatment. Back pain- analgesic therapy. Plan: Continue Gamma globulin @ 0.4 /kg x 5 days. Monitor CBC, chemistries and sugars
[2017-06-16] MEDS: CALCIUM CARBONATE 650 MG TABLET PO SCH ×2 (11:43→21:25)
[2017-06-16] MEDS: ACETAMINOPHEN 325 MG TABLET (FP) PO SCH (11:43)
[2017-06-16] MEDS: methylPREDNISolone NA SUCC 40 MG/1 ML VIAL IVPUSH SCH (11:43)
[2017-06-16] MEDS: ALPRAZolam 0.25 MG TABLET PO PRN ×2 (11:44→21:24)
--- NOTE | 2017-06-16 12:26 | PN ---
Progress Note, Physician Chief Complaint: Ms Painting is without complaints. No cp, sob, n/v. - Current Medication List Current Medications: Active Medications Acetaminophen (Tylenol -) 650 mg PO Q6H PRN PRN Reason: FEVER Acetaminophen (Tylenol -) 650 mg PO Q24H [facility] Stop: 06/19/17 18:00 Last Admin: 06/16/17 11:43 Dose: 650 mg Allopurinol (Zyloprim -) 150 mg PO DAILY [facility] Last Admin: 06/16/17 10:35 Dose: 150 mg Alprazolam (Xanax -) 0.5 mg PO Q8H PRN Last Admin: 06/16/17 11:44 Dose: 0.5 mg Amlodipine Besylate (Norvasc -) 5 mg PO DAILY [facility] Last Admin: 06/16/17 10:34 Dose: 5 mg Calcium Carbonate (Calcium Carbonate -) 650 mg PO BID [facility] Last Admin: 06/16/17 11:43 Dose: 650 mg Diphenhydramine HCl (Benadryl Injection -) 25 mg IVPB Q24H [facility] Stop: 06/19/17 18:00 Last Admin: 06/16/17 11:44 Dose: 25 mg Docusate Sodium (Colace -) 100 mg PO BID [facility] Last Admin: 06/16/17 10:34 Dose: 100 mg Glipizide (Glucotrol -) 10 mg PO BIDAC [facility] Last Admin: 06/16/17 10:31 Dose: 10 mg Immune Globulin (Gamunex-C) 400 mls @ 62 mls/hr IVPB DAILY [facility] Stop: 06/19/17 16:28 Last Admin: 06/15/17 15:14 Dose: 62 mls/hr Methylprednisolone Sodium Succinate (Solu-Medrol -) 40 mg IVPUSH Q24H [facility] Stop: 06/19/17 18:00 Last Admin: 06/16/17 11:43 Dose: 40 mg Morphine Sulfate (Ms Contin -) 60 mg PO TID [facility] Last Admin: 06/16/17 06:35 Dose: 60 mg Morphine Sulfate (Msir -) 15 mg PO Q6H PRN Last Admin: 06/15/17 10:39 Dose: 15 mg Pantoprazole Sodium (Protonix -) 40 mg PO DAILY [facility] Last Admin: 06/16/17 10:35 Dose: 40 mg Sertraline HCl (Zoloft -) 25 mg PO DAILY [facility] Last Admin: 06/16/17 10:35 Dose: 25 mg Sitagliptin Phosphate (Januvia -) 50 mg PO DAILY@0700 [facility] Last Admin: 06/16/17 10:31 Dose: 50 mg - Objective Vital Signs: Vital Signs Temperature 36.6 C 06/15/17 22:00 Pulse Rate 61 06/15/17 22:00 Respiratory Rate 20 06/15/17 22:00 Blood Pressure 141/76 06/15/17 22:00 O2 Sat by Pulse Oximetry (%) 94 L 06/15/17 21:00 Constitutional: Yes: No Distress, Calm, Obese Cardiovascular: Yes: Regular Rate and Rhythm. No: Gallop, Murmur, Rub Respiratory: Yes: Regular, CTA Bilaterally. No: Rales, Rhonchi, Wheezes Gastrointestinal: Yes: Normal Bowel Sounds, Soft. No: Distention, Tenderness Extremities: Yes: WNL Edema: No Labs: CBC, BMP 06/16/17 06:35 06/16/17 06:35 Problem List - Problems (1) Acute ITP Code(s): D69.3 - IMMUNE THROMBOCYTOPENIC PURPURA (2) CKD stage 3 secondary to diabetes Code(s): E11.22 - TYPE 2 DIABETES MELLITUS W DIABETIC CHRONIC KIDNEY DISEASE; N18.3 - CHRONIC KIDNEY DISEASE, STAGE 3 (MODERATE) (3) Diabetes mellitus Code(s): E11.9 - TYPE 2 DIABETES MELLITUS WITHOUT COMPLICATIONS (4) Diaphragmatic hernia Code(s): K44.9 - DIAPHRAGMATIC HERNIA WITHOUT OBSTRUCTION OR GANGRENE Qualifiers: Obstruction and gangrene presence: without obstruction or gangrene Qualified Code(s): K44.9 - Diaphragmatic hernia without obstruction or gangrene (5) HTN (hypertension) Code(s): I10 - ESSENTIAL (PRIMARY) HYPERTENSION Qualifiers: (6) Spinal stenosis Code(s): M48.00 - SPINAL STENOSIS, SITE UNSPECIFIED Assessment/Plan (1) Acute ITP Assessment/Plan: -continue prednisone -IVIg day 2/5 -improving -oncology following Code(s): D69.3 - IMMUNE THROMBOCYTOPENIC PURPURA (2) CKD stage 3 secondary to diabetes Assessment/Plan: -at baseline -monitor Code(s): E11.22 - TYPE 2 DIABETES MELLITUS W DIABETIC CHRONIC KIDNEY DISEASE; N18.3 - CHRONIC KIDNEY DISEASE, STAGE 3 (MODERATE) (3) Diabetes mellitus Assessment/Plan: -well controlled -continue home regimen -diabetic diet Code(s): E11.9 - TYPE 2 DIABETES MELLITUS WITHOUT COMPLICATIONS (4) Diaphragmatic hernia Assessment/Plan: -present Code(s): K44.9 - DIAPHRAGMATIC HERNIA WITHOUT OBSTRUCTION OR GANGRENE Qualifiers: Obstruction and gangrene presence: without obstruction or gangrene Qualified Code(s): K44.9 - Diaphragmatic hernia without obstruction or gangrene (5) HTN (hypertension) Assessment/Plan: -continue norvasc Code(s): I10 - ESSENTIAL (PRIMARY) HYPERTENSION Qualifiers: (6) Spinal stenosis Assessment/Plan: -with chronic pain -controlled on ms contin Code(s): M48.00 - SPINAL STENOSIS, SITE UNSPECIFIED
[2017-06-16] MEDS: IMMUNE GLOB,GAM CAPRYLATE(IGG) 40 GM IVPB SCH (15:44)
[2017-06-17] MEDS: morphine SO4 SUSTAINED ACTING 30 MG TABLET.SA PO SCH ×3 (05:58→22:47)
[2017-06-17] MEDS ORDERED: glipiZIDE 5 MG TABLET (FP) ONE (08:19)
[2017-06-17] MEDS: sitaGLIPtin PHOSPHATE 50 MG TABLET PO SCH (08:25)
[2017-06-17] MEDS: glipiZIDE 10 MG TABLET (FP) PO SCH ×2 (08:25→16:55)
[2017-06-17 08:35] LABS: BASO % 0.4 % (0-2.0); EOS % 0.4 % (0-4.5); HEMATOCRIT 31.4 % (32.4-45.2); HEMOGLOBIN 9.7 GM/dL (10.7-15.3); LYMPH % 26.6 % (8-40); MCH 23.2 pg (25.7-33.7); MCHC 30.7 g/dl (32.0-36.0); MEAN CELL VOLUME 75.4 fl (80-96); MEAN PLT VOLUME 9.1 fl (7.5-11.1); MONO % 11.2 % (3.8-10.2); NEUT % 61.4 % (42.8-82.8); PLATELET COUNT 126 K/MM3 (134-434); RBC 4.17 M/mm3 (3.60-5.2); WHITE BLOOD COUNT 8.6 K/mm3 (4.0-10.0)
[2017-06-17 09:15] LABS: ANION GAP 4 (8-16); BLOOD UREA NITROGEN 36 mg/dL (7-18); CALCIUM 8.3 mg/dL (8.5-10.1); CHLORIDE 100 mmol/L (98-107); CO2 32 mmol/L (21-32); CREATININE 1.1 mg/dL (0.55-1.02); GLUCOSE,RANDOM 90 mg/dL (74-106); MAGNESIUM 2.1 mg/dL (1.8-2.4); PHOSPHOROUS 4.2 mg/dL (2.5-4.9); SODIUM 136 mmol/L (136-145)
[2017-06-17] MEDS: ALPRAZolam 0.25 MG TABLET PO PRN ×2 (10:33→22:49)
[2017-06-17] MEDS: amLODIPine BESYLATE 5 MG TABLET (FP) PO SCH (10:33)
[2017-06-17] MEDS: PANTOPRAZOLE 40 MG TABLET (FP) PO SCH (10:33)
[2017-06-17] MEDS: SERTRALINE HCL 25 MG TABLET (FP) PO SCH (10:33)
[2017-06-17] MEDS: ALLOPURINOL 100 MG TABLET (FP) PO SCH (10:34)
[2017-06-17] MEDS: methylPREDNISolone NA SUCC 40 MG/1 ML VIAL IVPUSH SCH (12:21)
[2017-06-17] MEDS: ACETAMINOPHEN 325 MG TABLET (FP) PO SCH (12:21)
[2017-06-17] MEDS: morphine SULFATE IMMEDIATE RELEASE 30 MG TAB PO PRN (12:24)
[2017-06-17] MEDS: IMMUNE GLOB,GAM CAPRYLATE(IGG) 40 GM IVPB SCH (12:50)
--- NOTE | 2017-06-17 13:05 | PN ---
Progress Note (short form) - Note Progress Note: Patient seen and examined Admitted with thrombocytopenia History of ITP and Mantle cell lymphoma Previous therapy with steroids, Gamma globulin , and Rituxin for ITP. Vital Signs Period Temp Pulse Resp BP Sys/[place] Pulse Ox Last 24 Hr 97.6 F-98.8 F 61-70 20-20 133-156/53-71 94 HEENT: DENEEN, EOM Intact Oropharynx: No thrush, No mucositis Neck: Supple Nodes: Without adenopathy Breasts: Without masses Cor: RSR, No murmurs, No gallops Lungs: rales bilaterally bases Abd: Soft, Normal bowel sounds, No organomegaly, minimally LUQ pains Ext:No significant edema Skin: No rashes, Integument intact ROS- No headaches, diplopia, epistaxis, dysphagia, chest pains, fevers, sweats, night swats, nausea, emesis, diarrhea, constipation, dysuria, hematuria. Positive for SOB, back pains CBC, BMP 06/17/17 06:00 06/17/17 06:00 Active Medications Generic Name Dose Route Start Last Admin Trade Name Freq PRN Reason Stop Dose Admin Acetaminophen 650 mg 06/14/17 19:09 Tylenol - PO Q6H PRN FEVER Acetaminophen 650 mg 06/15/17 12:30 06/17/17 12:21 Tylenol - PO 06/19/17 18:00 650 mg Q24H PRASHANT Administration Allopurinol 150 mg 06/15/17 10:00 06/17/17 10:34 Zyloprim - PO 150 mg DAILY PRASHANT Administration Alprazolam 0.5 mg 06/14/17 19:11 06/17/17 10:33 Xanax - PO 0.5 mg Q8H PRN Administration Amlodipine Besylate 5 mg 06/15/17 10:00 06/17/17 10:33 Norvasc - PO 5 mg DAILY PRASHANT Administration Calcium Carbonate 650 mg 06/14/17 22:00 06/16/17 21:25 Calcium Carbonate - PO 650 mg BID PRASHANT Administration Diphenhydramine HCl 25 mg 06/15/17 12:30 06/17/17 12:21 Benadryl Injection - IVPB 06/19/17 18:00 25 mg Q24H PRASHANT Administration Docusate Sodium 100 mg 06/14/17 22:00 06/16/17 21:25 Colace - PO 100 mg BID PRASHANT Administration Glipizide 10 mg 06/15/17 07:00 06/17/17 08:25 Glucotrol - PO 10 mg BIDAC PRASHANT Administration Immune Globulin 400 mls @ 62 mls/hr 06/15/17 12:00 06/17/17 12:50 Gamunex-C IVPB 06/19/17 16:28 62 mls/hr DAILY PRASHANT Administration Methylprednisolone Sodium Succinate 40 mg 06/15/17 12:30 06/17/17 12:21 Solu-Medrol - IVPUSH 06/19/17 18:00 40 mg Q24H PRASHANT Administration Morphine Sulfate 60 mg 06/14/17 22:00 06/17/17 05:58 Ms Contin - PO 60 mg TID PRASHANT Administration Morphine Sulfate 15 mg 06/14/17 19:16 06/17/17 12:24 Msir - PO 15 mg Q6H PRN Administration Pantoprazole Sodium 40 mg 06/15/17 10:00 06/17/17 10:33 Protonix - PO 40 mg DAILY PRASHANT Administration Sertraline HCl 25 mg 06/15/17 10:00 06/17/17 10:33 Zoloft - PO 25 mg DAILY PRASHANT Administration Sitagliptin Phosphate 50 mg 06/15/17 07:00 06/17/17 08:25 Januvia - PO 50 mg DAILY@0700 PRASHANT Administration Impression: Refractory ITP-- for gamma globulin Mantle cell lymphoma-- for PET post treatment Diabetes Mellitus- under treatment - exacerbated by steroid therapy Essential Hypertension- under treatment. Back pain- analgesic therapy. Plan: Continue Gamma globulin @ 0.4 /kg x 4 days. Monitor CBC, chemistries and sugars
--- NOTE | 2017-06-17 13:53 | PN ---
Progress Note, Physician Chief Complaint: Feels comfortable, no bleeding or echymoses. History of Present Illness: 66 yrs old F with H/O ITP, Mantel Cell Lymphoma (remission), HTN, anxiety Depression, admitted with relapse of ITP with Thrombocytopenia. on Steroid and IgG day 3rd., platelet count is improving. - Current Medication List Current Medications: Active Medications Acetaminophen (Tylenol -) 650 mg PO Q6H PRN PRN Reason: FEVER Acetaminophen (Tylenol -) 650 mg PO Q24H [facility] Stop: 06/19/17 18:00 Last Admin: 06/17/17 12:21 Dose: 650 mg Allopurinol (Zyloprim -) 150 mg PO DAILY [facility] Last Admin: 06/17/17 10:34 Dose: 150 mg Alprazolam (Xanax -) 0.5 mg PO Q8H PRN Last Admin: 06/17/17 10:33 Dose: 0.5 mg Amlodipine Besylate (Norvasc -) 5 mg PO DAILY [facility] Last Admin: 06/17/17 10:33 Dose: 5 mg Calcium Carbonate (Calcium Carbonate -) 650 mg PO BID [facility] Last Admin: 06/16/17 21:25 Dose: 650 mg Diphenhydramine HCl (Benadryl Injection -) 25 mg IVPB Q24H [facility] Stop: 06/19/17 18:00 Last Admin: 06/17/17 12:21 Dose: 25 mg Docusate Sodium (Colace -) 100 mg PO BID [facility] Last Admin: 06/16/17 21:25 Dose: 100 mg Glipizide (Glucotrol -) 10 mg PO BIDAC [facility] Last Admin: 06/17/17 08:25 Dose: 10 mg Immune Globulin (Gamunex-C) 400 mls @ 62 mls/hr IVPB DAILY [facility] Stop: 06/19/17 16:28 Last Admin: 06/17/17 12:50 Dose: 62 mls/hr Methylprednisolone Sodium Succinate (Solu-Medrol -) 40 mg IVPUSH Q24H [facility] Stop: 06/19/17 18:00 Last Admin: 06/17/17 12:21 Dose: 40 mg Morphine Sulfate (Ms Contin -) 60 mg PO TID [facility] Last Admin: 06/17/17 05:58 Dose: 60 mg Morphine Sulfate (Msir -) 15 mg PO Q6H PRN Last Admin: 06/17/17 12:24 Dose: 15 mg Pantoprazole Sodium (Protonix -) 40 mg PO DAILY [facility] Last Admin: 06/17/17 10:33 Dose: 40 mg Sertraline HCl (Zoloft -) 25 mg PO DAILY [facility] Last Admin: 06/17/17 10:33 Dose: 25 mg Sitagliptin Phosphate (Januvia -) 50 mg PO DAILY@0700 [facility] Last Admin: 06/17/17 08:25 Dose: 50 mg - Objective Vital Signs: Vital Signs Temperature 98 F 06/17/17 09:00 Pulse Rate 68 06/17/17 09:00 Respiratory Rate 20 06/17/17 09:00 Blood Pressure 143/54 06/17/17 09:00 O2 Sat by Pulse Oximetry (%) 94 L 06/17/17 09:00 Elderly F comfortable not in acute distress HEENT: Mm moist, no anemia, PERRLA, EOMI NECK: No JVd No Bruit, no palpable nodes CHEST: CTA B/l CVS; S1S2 R no m/g/r ABD: No Distention, non tender Bs + EXT; No edema feet, no calf tenderness, Pulses + CRICKET COACH; AOx3 non focal Labs: CBC, BMP 06/17/17 06:00 06/17/17 06:00 Problem List - Problems (1) Acute ITP Assessment/Plan: on IV Steroids and IV IgG Platelet count improved to 126 k cont Code(s): D69.3 - IMMUNE THROMBOCYTOPENIC PURPURA (2) CKD stage 3 secondary to diabetes Assessment/Plan: Stable no active issue Code(s): E11.22 - TYPE 2 DIABETES MELLITUS W DIABETIC CHRONIC KIDNEY DISEASE; N18.3 - CHRONIC KIDNEY DISEASE, STAGE 3 (MODERATE) (3) HTN (hypertension) Assessment/Plan: Well controlled cont all home meds Code(s): I10 - ESSENTIAL (PRIMARY) HYPERTENSION Qualifiers: (4) T2DM (type 2 diabetes mellitus) Assessment/Plan: Cont oral meds and correction dose insulin on IV Steroids , optimize Glycemic control Code(s): E11.9 - TYPE 2 DIABETES MELLITUS WITHOUT COMPLICATIONS (5) Mantle cell lymphoma Assessment/Plan: In Remission,plan PET sca. Code(s): C83.10 - MANTLE CELL LYMPHOMA, UNSPECIFIED SITE (6) Anxiety Assessment/Plan: Cont Home meds. Code(s): F41.9 - ANXIETY DISORDER, UNSPECIFIED
[2017-06-17] MEDS ORDERED: PT OWN MED DRAWER 7, Y5N ONE (14:50)
[2017-06-17] MEDS: CALCIUM CARBONATE 650 MG TABLET PO SCH ×2 (14:53→22:46)
[2017-06-17] MEDS: DOCUSATE SODIUM 100 MG CAPSULE (FP) PO SCH ×2 (14:53→22:46)
[2017-06-18] MEDS ORDERED: glipiZIDE 5 MG TABLET (FP) ONE (04:54)
[2017-06-18] MEDS: morphine SO4 SUSTAINED ACTING 30 MG TABLET.SA PO SCH ×3 (06:39→22:28)
[2017-06-18] MEDS: sitaGLIPtin PHOSPHATE 50 MG TABLET PO SCH (06:39)
[2017-06-18] MEDS: glipiZIDE 10 MG TABLET (FP) PO SCH ×2 (06:39→17:15)
[2017-06-18 07:43] LABS: EOS % 0.7 % (0-4.5); HEMOGLOBIN 9.5 GM/dL (10.7-15.3); LYMPH % 24.1 % (8-40); MCHC 30.6 g/dl (32.0-36.0); MEAN CELL VOLUME 75.3 fl (80-96); MEAN PLT VOLUME 8.4 fl (7.5-11.1); NEUT % 64.2 % (42.8-82.8); PLATELET COUNT 179 K/MM3 (134-434); RBC 4.11 M/mm3 (3.60-5.2); WHITE BLOOD COUNT 8.6 K/mm3 (4.0-10.0)
[2017-06-18 08:10] LABS: ANION GAP 5 (8-16); BLOOD UREA NITROGEN 37 mg/dL (7-18); CHLORIDE 100 mmol/L (98-107); CO2 31 mmol/L (21-32); CREATININE 1.2 mg/dL (0.55-1.02); GLUCOSE,RANDOM 91 mg/dL (74-106); POTASSIUM 3.9 mmol/L (3.5-5.1); SODIUM 136 mmol/L (136-145)
[2017-06-18] MEDS: SERTRALINE HCL 25 MG TABLET (FP) PO SCH (09:30)
[2017-06-18] MEDS: PANTOPRAZOLE 40 MG TABLET (FP) PO SCH (09:30)
[2017-06-18] MEDS: DOCUSATE SODIUM 100 MG CAPSULE (FP) PO SCH ×2 (09:30→22:29)
[2017-06-18] MEDS: amLODIPine BESYLATE 5 MG TABLET (FP) PO SCH (09:30)
[2017-06-18] MEDS: ALLOPURINOL 100 MG TABLET (FP) PO SCH (09:30)
[2017-06-18] MEDS: ALPRAZolam 0.25 MG TABLET PO PRN ×2 (09:30→22:29)
[2017-06-18] MEDS: CALCIUM CARBONATE 650 MG TABLET PO SCH ×2 (09:31→22:29)
--- NOTE | 2017-06-18 12:48 | PN ---
Progress Note, Physician Chief Complaint: Feels comfortable, no bleeding or echymoses. History of Present Illness: 66 yrs old F with H/O ITP, Mantel Cell Lymphoma (remission), HTN, anxiety Depression, admitted with relapse of ITP with Thrombocytopenia. on Steroid and IgG day 3rd., platelet count is improving. - Current Medication List Current Medications: Active Medications Acetaminophen (Tylenol -) 650 mg PO Q6H PRN PRN Reason: FEVER Acetaminophen (Tylenol -) 650 mg PO Q24H [facility] Stop: 06/19/17 18:00 Last Admin: 06/17/17 12:21 Dose: 650 mg Allopurinol (Zyloprim -) 150 mg PO DAILY [facility] Last Admin: 06/18/17 09:30 Dose: 150 mg Alprazolam (Xanax -) 0.5 mg PO Q8H PRN Last Admin: 06/18/17 09:30 Dose: 0.5 mg Amlodipine Besylate (Norvasc -) 5 mg PO DAILY [facility] Last Admin: 06/18/17 09:30 Dose: 5 mg Calcium Carbonate (Calcium Carbonate -) 650 mg PO BID [facility] Last Admin: 06/18/17 09:31 Dose: 650 mg Diphenhydramine HCl (Benadryl Injection -) 25 mg IVPB Q24H [facility] Stop: 06/19/17 18:00 Last Admin: 06/17/17 12:21 Dose: 25 mg Docusate Sodium (Colace -) 100 mg PO BID [facility] Last Admin: 06/18/17 09:30 Dose: 100 mg Glipizide (Glucotrol -) 10 mg PO BIDAC [facility] Last Admin: 06/18/17 06:39 Dose: 10 mg Immune Globulin (Gamunex-C) 400 mls @ 62 mls/hr IVPB DAILY [facility] Stop: 06/19/17 16:28 Last Admin: 06/17/17 12:50 Dose: 62 mls/hr Methylprednisolone Sodium Succinate (Solu-Medrol -) 40 mg IVPUSH Q24H [facility] Stop: 06/19/17 18:00 Last Admin: 06/17/17 12:21 Dose: 40 mg Morphine Sulfate (Ms Contin -) 60 mg PO TID [facility] Last Admin: 06/18/17 06:39 Dose: 60 mg Morphine Sulfate (Msir -) 15 mg PO Q6H PRN Last Admin: 06/17/17 12:24 Dose: 15 mg Pantoprazole Sodium (Protonix -) 40 mg PO DAILY [facility] Last Admin: 06/18/17 09:30 Dose: 40 mg Sertraline HCl (Zoloft -) 25 mg PO DAILY [facility] Last Admin: 06/18/17 09:30 Dose: 25 mg Sitagliptin Phosphate (Januvia -) 50 mg PO DAILY@0700 [facility] Last Admin: 06/18/17 06:39 Dose: 50 mg - Objective Vital Signs: Vital Signs Temperature 97.5 F L 06/18/17 05:57 Pulse Rate 62 06/18/17 05:57 Respiratory Rate 20 06/18/17 05:57 Blood Pressure 146/66 06/18/17 05:57 O2 Sat by Pulse Oximetry (%) 94 L 06/17/17 20:30 Elderly F comfortable not in acute distress HEENT: Mm moist, no anemia, PERRLA, EOMI NECK: No JVd No Bruit, no palpable nodes CHEST: CTA B/l CVS; S1S2 R no m/g/r ABD: No Distention, non tender Bs + EXT; No edema feet, no calf tenderness, Pulses + MANAGER UNDERWRITING; AOx3 non focal Labs: CBC, BMP 06/18/17 06:00 06/18/17 06:00 Problem List - Problems (1) Acute ITP Assessment/Plan: on IV Steroids and IV IgG Platelet count improved to 179k cont Code(s): D69.3 - IMMUNE THROMBOCYTOPENIC PURPURA (2) CKD stage 3 secondary to diabetes Assessment/Plan: Stable no active issue Code(s): E11.22 - TYPE 2 DIABETES MELLITUS W DIABETIC CHRONIC KIDNEY DISEASE; N18.3 - CHRONIC KIDNEY DISEASE, STAGE 3 (MODERATE) (3) HTN (hypertension) Assessment/Plan: Well controlled cont all home meds Code(s): I10 - ESSENTIAL (PRIMARY) HYPERTENSION Qualifiers: (4) T2DM (type 2 diabetes mellitus) Assessment/Plan: Cont oral meds and correction dose insulin on IV Steroids , optimize Glycemic control Code(s): E11.9 - TYPE 2 DIABETES MELLITUS WITHOUT COMPLICATIONS (5) Mantle cell lymphoma Assessment/Plan: In Remission,plan PET sca. Code(s): C83.10 - MANTLE CELL LYMPHOMA, UNSPECIFIED SITE (6) Anxiety Assessment/Plan: Cont Home meds. Code(s): F41.9 - ANXIETY DISORDER, UNSPECIFIED
--- NOTE | 2017-06-18 12:51 | PN ---
Progress Note (short form) - Note Progress Note: Patient seen and examined Admitted with thrombocytopenia History of ITP and Mantle cell lymphoma Previous therapy with steroids, Gamma globulin , and Rituxin for ITP. Vital Signs Period Temp Pulse Resp BP Sys/[place] Pulse Ox Last 24 Hr 97.5 F-98.4 F 61-72 18-20 127-165/54-96 94 HEENT: DENEEN, EOM Intact Neck: Supple Ext:No significant edema Skin: No rashes, Integument intact CBC, BMP 06/18/17 06:00 06/18/17 06:00 Active Medications Generic Name Dose Route Start Last Admin Trade Name Freq PRN Reason Stop Dose Admin Acetaminophen 650 mg 06/14/17 19:09 Tylenol - PO Q6H PRN FEVER Acetaminophen 650 mg 06/15/17 12:30 06/17/17 12:21 Tylenol - PO 06/19/17 18:00 650 mg Q24H [facility] Administration Allopurinol 150 mg 06/15/17 10:00 06/18/17 09:30 Zyloprim - PO 150 mg DAILY [facility] Administration Alprazolam 0.5 mg 06/14/17 19:11 06/18/17 09:30 Xanax - PO 0.5 mg Q8H PRN Administration Amlodipine Besylate 5 mg 06/15/17 10:00 06/18/17 09:30 Norvasc - PO 5 mg DAILY [facility] Administration Calcium Carbonate 650 mg 06/14/17 22:00 06/18/17 09:31 Calcium Carbonate - PO 650 mg BID [facility] Administration Diphenhydramine HCl 25 mg 06/15/17 12:30 06/17/17 12:21 Benadryl Injection - IVPB 06/19/17 18:00 25 mg Q24H [facility] Administration Docusate Sodium 100 mg 06/14/17 22:00 06/18/17 09:30 Colace - PO 100 mg BID [facility] Administration Glipizide 10 mg 06/15/17 07:00 06/18/17 06:39 Glucotrol - PO 10 mg BIDAC [facility] Administration Immune Globulin 400 mls @ 62 mls/hr 06/15/17 12:00 06/17/17 12:50 Gamunex-C IVPB 06/19/17 16:28 62 mls/hr DAILY [facility] Administration Methylprednisolone Sodium Succinate 40 mg 06/15/17 12:30 01/13/18 12:21 Solu-Medrol - IVPUSH 06/19/17 18:00 40 mg Q24H [facility] Administration Morphine Sulfate 60 mg 06/14/17 22:00 06/18/17 06:39 Ms Contin - PO 60 mg TID [facility] Administration Morphine Sulfate 15 mg 06/14/17 19:16 06/17/17 12:24 Msir - PO 15 mg Q6H PRN Administration Pantoprazole Sodium 40 mg 06/15/17 10:00 06/18/17 09:30 Protonix - PO 40 mg DAILY [facility] Administration Sertraline HCl 25 mg 06/15/17 10:00 06/18/17 09:30 Zoloft - PO 25 mg DAILY [facility] Administration Sitagliptin Phosphate 50 mg 06/15/17 07:00 06/18/17 06:39 Januvia - PO 50 mg DAILY@0700 [facility] Administration Impression: Refractory ITP-- for gamma globulin Mantle cell lymphoma-- for PET post treatment Diabetes Mellitus- under treatment - exacerbated by steroid therapy Essential Hypertension- under treatment. Back pain- analgesic therapy. Plan: Continue Gamma globulin @ 0.4 /kg x 4 days. Monitor CBC, chemistries and sugars
[2017-06-18] MEDS: methylPREDNISolone NA SUCC 40 MG/1 ML VIAL IVPUSH SCH (13:37)
[2017-06-18] MEDS: IMMUNE GLOB,GAM CAPRYLATE(IGG) 40 GM IVPB SCH (14:13)
[2017-06-18] MEDS: ACETAMINOPHEN 325 MG TABLET (FP) PO SCH (16:20)
[2017-06-18] MEDS ORDERED: PT OWN MED DRAWER 7, Y5N ONE (20:59)
[2017-06-18] MEDS ORDERED: INSULIN (NOVOLOG) ASPART 100 UNITS/ML 10ML VIAL SQ ONE (22:45)
[2017-06-19 02:07] LABS: ANION GAP 10 (8-16); BLOOD UREA NITROGEN 40 mg/dL (7-18); CALCIUM 8.5 mg/dL (8.5-10.1); CHLORIDE 98 mmol/L (98-107); CO2 27 mmol/L (21-32); CREATININE 1.7 mg/dL (0.55-1.02); GLUCOSE,RANDOM 166 mg/dL (74-106); POTASSIUM 4.1 mmol/L (3.5-5.1); SODIUM 135 mmol/L (136-145)
[2017-06-19] MEDS ORDERED: glipiZIDE 5 MG TABLET (FP) ONE ×2 (05:53→16:14)
[2017-06-19] MEDS: glipiZIDE 10 MG TABLET (FP) PO SCH ×2 (06:18→17:14)
[2017-06-19] MEDS: sitaGLIPtin PHOSPHATE 50 MG TABLET PO SCH (06:20)
[2017-06-19] MEDS: morphine SO4 SUSTAINED ACTING 30 MG TABLET.SA PO SCH ×3 (06:20→21:14)
[2017-06-19] MEDS: INSULIN SLIDING SCALE (NOVOLOG) 1 VIAL SQ SCH ×3 (06:21→17:14)
[2017-06-19 07:57] LABS: BASO % 0.8 % (0-2.0); EOS % 0.2 % (0-4.5); HEMATOCRIT 30.6 % (32.4-45.2); HEMOGLOBIN 9.4 GM/dL (10.7-15.3); LYMPH % 20.3 % (8-40); MCH 22.9 pg (25.7-33.7); MCHC 30.7 g/dl (32.0-36.0); MEAN CELL VOLUME 74.7 fl (80-96); MEAN PLT VOLUME 8.2 fl (7.5-11.1); MONO % 10.8 % (3.8-10.2); NEUT % 67.9 % (42.8-82.8); PLATELET COUNT 235 K/MM3 (134-434); RDW 19.9 % (11.6-15.6); WHITE BLOOD COUNT 7.9 K/mm3 (4.0-10.0)
[2017-06-19] MEDS: ALLOPURINOL 100 MG TABLET (FP) PO SCH (09:29)
[2017-06-19] MEDS: amLODIPine BESYLATE 5 MG TABLET (FP) PO SCH (09:29)
[2017-06-19] MEDS: DOCUSATE SODIUM 100 MG CAPSULE (FP) PO SCH ×2 (09:29→21:14)
[2017-06-19] MEDS: SERTRALINE HCL 25 MG TABLET (FP) PO SCH (09:29)
[2017-06-19] MEDS: CALCIUM CARBONATE 650 MG TABLET PO SCH ×2 (09:30→21:14)
[2017-06-19] MEDS: IMMUNE GLOB,GAM CAPRYLATE(IGG) 40 GM IVPB SCH (09:30)
[2017-06-19] MEDS: PANTOPRAZOLE 40 MG TABLET (FP) PO SCH (09:30)
--- NOTE | 2017-06-19 09:32 | PN ---
Progress Note (short form) - Note Progress Note: Patient seen and examined Offers no specific complaints S/P 4 days of gamma globulin-with good clinical response of 235K platelets Creatinine increased to 1.7. ROS No headache, diplopia, epistaxis, dysphahia, chest pains, some SOB on exertion, no GI problems of nausea, emesis, diarrhea. back pain improved with analgesics and steroids Last Vital Signs Temp Pulse Resp BP Pulse Ox 97.6 F 64 20 152/70 96 06/19/17 06:41 06/19/17 06:41 06/19/17 06:41 06/19/17 06:41 06/18/17 21:00 HEENT: DENEEN, EOM Intact Oropharynx: No thrush, No mucositis Neck: Supple Nodes: Without adenopathy Cor: RSR, No murmurs, No gallops Lungs: atelectatic rales at bases Abd: Soft, Normal bowel sounds, No organomegaly Ext:No significant edema Skin: No rashes, Integument intact CBC, BMP 06/19/17 06:00 06/19/17 01:15 Current Medications Generic Name Dose Route Start Last Admin Trade Name Freq PRN Reason Stop Dose Admin Acetaminophen 650 mg 06/14/17 19:09 06/18/17 13:37 Tylenol - PO 650 mg Q6H PRN Administration FEVER Acetaminophen 650 mg 06/15/17 12:30 06/18/17 16:20 Tylenol - PO 06/19/17 18:00 Not Given Q24H [facility] Allopurinol 150 mg 06/15/17 10:00 06/18/17 09:30 Zyloprim - PO 150 mg DAILY [facility] Administration Alprazolam 0.5 mg 06/18/17 18:10 06/18/17 22:29 Xanax - PO 0.5 mg Q8H PRN Administration ANXIETY Amlodipine Besylate 5 mg 06/15/17 10:00 06/18/17 09:30 Norvasc - PO 5 mg DAILY [facility] Administration Calcium Carbonate 650 mg 06/14/17 22:00 06/18/17 22:29 Calcium Carbonate - PO 650 mg BID [facility] Administration Diphenhydramine HCl 25 mg 06/15/17 12:30 06/18/17 13:37 Benadryl Injection - IVPB 06/19/17 18:00 25 mg Q24H [facility] Administration Docusate Sodium 100 mg 06/14/17 22:00 06/18/17 22:29 Colace - PO 100 mg BID [facility] Administration Glipizide 10 mg 06/15/17 07:00 06/19/17 06:18 Glucotrol - PO 10 mg BIDAC [facility] Administration Immune Globulin 400 mls @ 62 mls/hr 06/15/17 12:00 06/18/17 14:13 Gamunex-C IVPB 06/19/17 16:28 62 mls/hr DAILY [facility] Administration Insulin Aspart 1 vial 06/19/17 07:00 06/19/17 06:21 Novolog Vial Sliding Scale - SQ Not Given TIDAC [facility] Protocol Methylprednisolone Sodium Succinate 40 mg 06/15/17 12:30 06/18/17 13:37 Solu-Medrol - IVPUSH 06/19/17 18:00 40 mg Q24H [facility] Administration Morphine Sulfate 60 mg 06/14/17 22:00 06/19/17 06:20 Ms Contin - PO 60 mg TID [facility] Administration Morphine Sulfate 15 mg 06/18/17 18:41 Msir - PO Q6H PRN PAIN LEVEL 6-10 Pantoprazole Sodium 40 mg 06/15/17 10:00 06/18/17 09:30 Protonix - PO 40 mg DAILY [facility] Administration Sertraline HCl 25 mg 06/15/17 10:00 06/18/17 09:30 Zoloft - PO 25 mg DAILY [facility] Administration Sitagliptin Phosphate 50 mg 06/15/17 07:00 06/19/17 06:20 Januvia - PO 50 mg DAILY@0700 [facility] Administration Impression: Refractory ITP Renal insufficiency likely secondary to gamma globulin DM - on steroids-under therapy Back pains- steroids and analgesics Essential hypertension-under therapy hypochromic ,microcytic anemia Mantle cell Lymphoma Plan: Cancel gamma globulin-- day 5 Hydrate Monitor kidney function PET-CT as out patient Check Fe++ studies for anemia
[2017-06-19] MEDS: ALPRAZolam 0.25 MG TABLET PO PRN (09:33)
[2017-06-19] MEDS: morphine SULFATE IMMEDIATE RELEASE 30 MG TAB PO PRN ×2 (09:34→20:00)
[2017-06-19] MEDS: SODIUM CHLORIDE 0.45% 1,000 ML IV SCH (09:45)
[2017-06-19] MEDS: predniSONE 20 MG TABLET (UD) PO SCH (09:50)
--- NOTE | 2017-06-19 11:45 | PN ---
Progress Note, Physician Chief Complaint: Feels comfortable, no bleeding or echymoses. yesterday had episode of Hyperglycemia. History of Present Illness: 66 yrs old F with H/O ITP, Mantel Cell Lymphoma (remission), HTN, anxiety Depression, admitted with relapse of ITP with Thrombocytopenia. on Steroid and IgG day 3rd., platelet count is improving. - Current Medication List Current Medications: Active Medications Acetaminophen (Tylenol -) 650 mg PO Q6H PRN PRN Reason: FEVER Last Admin: 06/18/17 13:37 Dose: 650 mg Acetaminophen (Tylenol -) 650 mg PO Q24H [facility] Stop: 06/19/17 18:00 Last Admin: 06/18/17 16:20 Dose: Not Given Allopurinol (Zyloprim -) 150 mg PO DAILY [facility] Last Admin: 06/19/17 09:29 Dose: 150 mg Alprazolam (Xanax -) 0.5 mg PO Q8H PRN PRN Reason: ANXIETY Last Admin: 06/19/17 09:33 Dose: 0.5 mg Amlodipine Besylate (Norvasc -) 5 mg PO DAILY [facility] Last Admin: 06/19/17 09:29 Dose: 5 mg Calcium Carbonate (Calcium Carbonate -) 650 mg PO BID [facility] Last Admin: 06/19/17 09:30 Dose: 650 mg Diphenhydramine HCl (Benadryl Injection -) 25 mg IVPB Q24H [facility] Stop: 06/19/17 18:00 Last Admin: 06/18/17 13:37 Dose: 25 mg Docusate Sodium (Colace -) 100 mg PO BID [facility] Last Admin: 06/19/17 09:29 Dose: 100 mg Glipizide (Glucotrol -) 10 mg PO BIDAC [facility] Last Admin: 06/19/17 06:18 Dose: 10 mg Sodium Chloride (1/2 Normal Saline) 1,000 mls @ 75 mls/hr IV ASDIR [facility] Last Admin: 06/19/17 09:45 Dose: 75 mls/hr Insulin Aspart (Novolog Vial Sliding Scale -) 1 vial SQ TIDAC [facility] PRN Reason: Protocol Last Admin: 06/19/17 06:21 Dose: Not Given Morphine Sulfate (Ms Contin -) 60 mg PO TID [facility] Last Admin: 06/19/17 06:20 Dose: 60 mg Morphine Sulfate (Msir -) 15 mg PO Q6H PRN PRN Reason: PAIN LEVEL 6-10 Last Admin: 06/19/17 09:34 Dose: 15 mg Pantoprazole Sodium (Protonix -) 40 mg PO DAILY [facility] Last Admin: 06/19/17 09:30 Dose: 40 mg Prednisone (Deltasone -) 40 mg PO DAILY [facility] Last Admin: 06/19/17 09:50 Dose: 40 mg Sertraline HCl (Zoloft -) 25 mg PO DAILY [facility] Last Admin: 06/19/17 09:29 Dose: 25 mg Sitagliptin Phosphate (Januvia -) 50 mg PO DAILY@0700 [facility] Last Admin: 06/19/17 06:20 Dose: 50 mg - Objective Vital Signs: Vital Signs Temperature 98.3 F 06/19/17 09:28 Pulse Rate 67 06/19/17 09:28 Respiratory Rate 20 06/19/17 09:28 Blood Pressure 139/57 06/19/17 09:28 O2 Sat by Pulse Oximetry (%) 96 06/18/17 21:00 Elderly F comfortable not in acute distress HEENT: Mm dry, no anemia, PERRLA, EOMI NECK: No JVd No Bruit, no palpable nodes CHEST: CTA B/l CVS; S1S2 R no m/g/r ABD: No Distention, non tender Bs + EXT; No edema feet, no calf tenderness, Pulses + ADMINISTRATOR; AOx3 non focal Labs: CBC, BMP 06/19/17 06:00 06/19/17 01:15 Problem List - Problems (1) Acute ITP Assessment/Plan: on IV Steroids and IV IgG Platelet count improved to 235 k on PO prednisone and IV IgG stopped by oncologist Code(s): D69.3 - IMMUNE THROMBOCYTOPENIC PURPURA (2) CKD stage 3 secondary to diabetes Assessment/Plan: Stable no active issue, nild evation of creat probably due to hyperglycemia induced dehydration , F/U BMP after Hydration. Code(s): E11.22 - TYPE 2 DIABETES MELLITUS W DIABETIC CHRONIC KIDNEY DISEASE; N18.3 - CHRONIC KIDNEY DISEASE, STAGE 3 (MODERATE) (3) HTN (hypertension) Assessment/Plan: Well controlled cont all home meds Code(s): I10 - ESSENTIAL (PRIMARY) HYPERTENSION Qualifiers: (4) T2DM (type 2 diabetes mellitus) Assessment/Plan: Cont oral meds and correction dose insulin on IV Steroids , optimize Glycemic control Code(s): E11.9 - TYPE 2 DIABETES MELLITUS WITHOUT COMPLICATIONS (5) Mantle cell lymphoma Assessment/Plan: In Remission,plan PET sca. Code(s): C83.10 - MANTLE CELL LYMPHOMA, UNSPECIFIED SITE (6) Anxiety Assessment/Plan: Cont Home meds. Code(s): F41.9 - ANXIETY DISORDER, UNSPECIFIED
[2017-06-19] MEDS: ACETAMINOPHEN 325 MG TABLET (FP) PO SCH (11:51)
[2017-06-20] MEDS: SODIUM CHLORIDE 0.45% 1,000 ML IV SCH (00:08)
[2017-06-20] MEDS ORDERED: glipiZIDE 5 MG TABLET (FP) ONE (06:05)
[2017-06-20] MEDS: INSULIN SLIDING SCALE (NOVOLOG) 1 VIAL SQ SCH ×2 (06:31→14:30)
[2017-06-20] MEDS: glipiZIDE 10 MG TABLET (FP) PO SCH (06:34)
[2017-06-20] MEDS: morphine SO4 SUSTAINED ACTING 30 MG TABLET.SA PO SCH ×2 (06:34→14:29)
[2017-06-20] MEDS: sitaGLIPtin PHOSPHATE 50 MG TABLET PO SCH (06:34)
[2017-06-20 07:47] LABS: BASO % 1.5 % (0-2.0); EOS % 0.7 % (0-4.5); HEMATOCRIT 29.8 % (32.4-45.2); HEMOGLOBIN 9.2 GM/dL (10.7-15.3); LYMPH % 26.1 % (8-40); MEAN CELL VOLUME 74.4 fl (80-96); MEAN PLT VOLUME 7.9 fl (7.5-11.1); MONO % 9.4 % (3.8-10.2); NEUT % 62.3 % (42.8-82.8); PLATELET COUNT 240 K/MM3 (134-434); RBC 4.01 M/mm3 (3.60-5.2); RDW 19.7 % (11.6-15.6); RETICULOCYTES 1.67 % (0.5-1.5); WHITE BLOOD COUNT 8.5 K/mm3 (4.0-10.0)
[2017-06-20 08:02] LABS: ALBUMIN 2.5 g/dl (3.4-5.0); ANION GAP 6 (8-16); BILIRUBIN,TOTAL 0.3 mg/dL (0.2-1.0); BLOOD UREA NITROGEN 35 mg/dL (7-18); CALCIUM 7.7 mg/dL (8.5-10.1); CHLORIDE 102 mmol/L (98-107); CO2 30 mmol/L (21-32); CREATININE 1.1 mg/dL (0.55-1.02); GLUCOSE,RANDOM 70 mg/dL (74-106); LDH 169 U/L (84-246); MAGNESIUM 2.2 mg/dL (1.8-2.4); PHOSPHOROUS 3.3 mg/dL (2.5-4.9); POTASSIUM 4.2 mmol/L (3.5-5.1); SGOT/AST 11 U/L (15-37); SGPT/ALT 12 U/L (12-78); SODIUM 138 mmol/L (136-145); TOT PROT 8.1 g/dl (6.4-8.2); URIC ACID 2.5 mg/dL (2.6-7.2)
[2017-06-20 08:03] LABS: ALK PHOS 51 U/L (45-117)
[2017-06-20] MEDS: ALLOPURINOL 100 MG TABLET (FP) PO SCH (11:28)
[2017-06-20] MEDS: predniSONE 20 MG TABLET (UD) PO SCH (11:29)
[2017-06-20] MEDS: DOCUSATE SODIUM 100 MG CAPSULE (FP) PO SCH (11:30)
[2017-06-20] MEDS: SERTRALINE HCL 25 MG TABLET (FP) PO SCH (11:35)
[2017-06-20] MEDS: amLODIPine BESYLATE 5 MG TABLET (FP) PO SCH (11:35)
[2017-06-20] MEDS: PANTOPRAZOLE 40 MG TABLET (FP) PO SCH (11:35)
[2017-06-20] MEDS: CALCIUM CARBONATE 650 MG TABLET PO SCH (11:36)
--- NOTE | 2017-06-20 11:43 | DS ---
Physical Examination Vital Signs: Vital Signs Temperature 36.6 C 06/20/17 06:00 Pulse Rate 57 L 06/20/17 06:00 Respiratory Rate 20 06/20/17 06:00 Blood Pressure 153/73 06/20/17 06:00 O2 Sat by Pulse Oximetry (%) 95 06/19/17 21:00 Constitutional: Yes: No Distress, Calm, Obese Cardiovascular: Yes: Regular Rate and Rhythm. No: Gallop, Murmur, Rub Respiratory: Yes: Regular, CTA Bilaterally. No: Rales, Rhonchi, Wheezes Gastrointestinal: Yes: Normal Bowel Sounds, Soft. No: Distention, Tenderness Extremities: Yes: WNL Edema: No Labs: CBC, BMP 06/20/17 06:00 06/20/17 06:00 Discharge Summary Reason For Visit: THROMBOCYTOPENIA Current Active Problems T2DM (type 2 diabetes mellitus) (Acute) Hospital Course: (1) Acute ITP Code(s): D69.3 - IMMUNE THROMBOCYTOPENIC PURPURA (2) CKD stage 3 secondary to diabetes Code(s): E11.22 - TYPE 2 DIABETES MELLITUS W DIABETIC CHRONIC KIDNEY DISEASE; N18.3 - CHRONIC KIDNEY DISEASE, STAGE 3 (MODERATE) (3) Diabetes mellitus Code(s): E11.9 - TYPE 2 DIABETES MELLITUS WITHOUT COMPLICATIONS (4) Diaphragmatic hernia Code(s): K44.9 - DIAPHRAGMATIC HERNIA WITHOUT OBSTRUCTION OR GANGRENE Qualifiers: Obstruction and gangrene presence: without obstruction or gangrene Qualified Code(s): K44.9 - Diaphragmatic hernia without obstruction or gangrene (5) HTN (hypertension) Code(s): I10 - ESSENTIAL (PRIMARY) HYPERTENSION Qualifiers: (6) Spinal stenosis Code(s): M48.00 - SPINAL STENOSIS, SITE UNSPECIFIED Ms Painting is a very pleasant 66 year old female who came in with acute ITP. She was admitted to the hospital and seen by oncology. She underwent IVIg, she was planned for 5 days but instead underwent 4 days secondary to worsening renal function. Her platelets are normal and her renal function has improved. She is safe for discharge home with close follow up. She is to continue taking prednisone Condition: Good - Instructions Diet, Activity, Other Instructions: resume previous diet and activity Referrals: Subhash Mcfarlane MD [Staff Physician] - Rafael Ty MD [Staff Physician] - Disposition: HOME - Home Medications Comprehensive Discharge Medication List: Ambulatory Orders Sertraline HCl [Zoloft -] 25 mg PO DAILY 08/28/14 Alprazolam [Xanax] 0.5 mg PO Q8H PRN #0 tablet 09/10/14 Pantoprazole Sodium [Protonix -] 40 mg PO DAILY #0 tablet.ec 09/10/14 Morphine Sulfate 15 mg PO QID PRN 03/31/16 Allopurinol [Zyloprim -] 150 mg PO DAILY #60 tablet 04/07/16 Albuterol Sulfate Inhaler - [Ventolin HFA Inhaler -] 1 - 2 inh PO PRN 08/09/16 Calcium Carbonate 648 mg PO BID 08/09/16 Amlodipine Besylate [Norvasc -] 5 mg PO DAILY #0 tablet 10/29/16 Docusate Sodium [Colace -] 100 mg PO BID #60 tab-cap 10/29/16 Morphine *Sr* [MS Contin -] 60 mg PO TID #120 tab.sa MDD 180mg 12/28/16 Sitagliptin Phosphate [Januvia] 50 mg PO DAILY 03/18/17 Glipizide Xl [Glucotrol Xl -] 10 mg PO BIDAC tab.er.24 05/23/17 Acetaminophen [Tylenol .Regular Strength -] 650 mg PO PRN 05/26/17 Prednisone [Deltasone -] 40 mg PO DAILY #60 tablet 06/20/17
[2017-06-20] MEDS: morphine SULFATE IMMEDIATE RELEASE 30 MG TAB PO PRN (11:44)
[2017-06-20] MEDS: ALPRAZolam 0.25 MG TABLET PO PRN (11:44)
--- NOTE | 2017-06-20 13:16 | PN ---
Progress Note (short form) - Note Progress Note: Seen and examined this am. events noted. O/E: General: NAD Cor: RSR, No murmurs, No gallops Lungs: Clear to P&A Abd: Soft, Normal bowel sounds, No organomegaly Ext:No significant edema Last Vital Signs Temp Pulse Resp BP Pulse Ox 97.8 F 57 L 20 153/73 95 06/20/17 06:00 06/20/17 06:00 06/20/17 06:00 06/20/17 06:00 06/19/17 21:00 CBC, BMP 06/20/17 06:00 06/20/17 06:00 Current Medications Generic Name Dose Route Start Last Admin Trade Name Freq PRN Reason Stop Dose Admin Acetaminophen 650 mg 06/14/17 19:09 06/18/17 13:37 Tylenol - PO 650 mg Q6H PRN Administration FEVER Allopurinol 150 mg 06/15/17 10:00 06/20/17 11:28 Zyloprim - PO 150 mg DAILY [facility] Administration Alprazolam 0.5 mg 06/18/17 18:10 06/20/17 11:44 Xanax - PO 0.5 mg Q8H PRN Administration ANXIETY Amlodipine Besylate 5 mg 06/15/17 10:00 06/20/17 11:35 Norvasc - PO 5 mg DAILY [facility] Administration Calcium Carbonate 650 mg 06/14/17 22:00 06/20/17 11:36 Calcium Carbonate - PO 650 mg BID [facility] Administration Docusate Sodium 100 mg 06/14/17 22:00 06/20/17 11:30 Colace - PO 100 mg BID [facility] Administration Glipizide 10 mg 06/15/17 07:00 06/20/17 06:34 Glucotrol - PO 10 mg BIDAC [facility] Administration Sodium Chloride 1,000 mls @ 75 mls/hr 06/19/17 09:45 06/20/17 00:08 1/2 Normal Saline IV 75 mls/hr ASDIR [facility] Administration Insulin Aspart 1 vial 06/19/17 07:00 06/20/17 06:31 Novolog Vial Sliding Scale - SQ Not Given [facility] Protocol Morphine Sulfate 60 mg 06/14/17 22:00 06/20/17 06:34 Ms Contin - PO 60 mg TID [facility] Administration Morphine Sulfate 15 mg 06/18/17 18:41 06/20/17 11:44 Msir - PO 15 mg Q6H PRN Administration PAIN LEVEL 6-10 Pantoprazole Sodium 40 mg 06/15/17 10:00 06/20/17 11:35 Protonix - PO 40 mg DAILY [facility] Administration Prednisone 40 mg 06/19/17 10:00 06/20/17 11:29 Deltasone - PO 40 mg DAILY [facility] Administration Sertraline HCl 25 mg 06/15/17 10:00 06/20/17 11:35 Zoloft - PO 25 mg DAILY [facility] Administration Sitagliptin Phosphate 50 mg 06/15/17 07:00 06/20/17 06:34 Januvia - PO 50 mg DAILY@0700 [facility] Administration 66 y/o patient with h/o mantle cell lymphoma, ITP s/p 4 doses of IvIg. Cr 1.1 OP PET-CT to be discharged on 40mg prednisone.
[2017-06-20 14:15] VITALS: BP 133/66; PULSE 76; TEMP 98.4
[2017-06-21 06:06] LABS: SERUM IRON SATURATION 14 % (15-55); TOTAL IRON BINDING CAPACITY 308 ug/dL (250-450); UIBC 264 ug/dL (118-369)
== END 2017-06-20 15:00 | disposition home or self-care (01) | DRG 813 ==
LOC: J7W 17:52
PROVIDERS: ADMIT Specialist; ATTEND Specialist
DX: D69.3 Immune thrombocytopenic purpura (principal); C83.10 Mantle cell lymphoma, unspecified site; J98.11 Atelectasis; K44.9 Diaphragmatic hernia without obstruction or gangrene; I12.9 Hypertensive chronic kidney disease with stage 1 through stage 4 chronic kidney disease, or unspecified chronic kidney disease; E11.22 Type 2 diabetes mellitus with diabetic chronic kidney disease; N18.3 Chronic kidney disease, stage 3 (moderate); M48.00 Spinal stenosis, site unspecified; F41.9 Anxiety disorder, unspecified; M54.9 Dorsalgia, unspecified
CPT/HCPCS: 36415; 80048; 80053; 82728; 82962; 83540; 83550; 83615; 83735; 84100; 84550; 85025; 85027; 85044; J1561

== ENCOUNTER 2017-08-17 12:35 | Inpatient (IN) | payer OTHER, MEDICARE ==
[2017-08-17] MEDS ORDERED: ALPRAZolam 0.25 MG TABLET PO PRN (13:46)
[2017-08-17] MEDS ORDERED: MORPHINE SULFATE 15 MG PO PRN ×2 (13:46→14:42)
[2017-08-17] MEDS ORDERED: ALBUTEROL SO4 18 GM HFA INHALER IH SCH (14:00)
[2017-08-17] MEDS ORDERED: ACETAMINOPHEN 325 MG TABLET (FP) PO PRN (14:25)
--- NOTE | 2017-08-17 14:29 | HP ---
Admitting History and Physical - Primary Care Physician PCP: Subhash Mcfarlane - Admission Chief Complaint: I'm weak and short of breath History of Present Illness: Ms Painting is a very pleasant 66 year old female who comes in with progressive weakness and shortness of breath. She says it began about 3 weeks ago. She noted the shortness of breath mainly on exertion. It started off minimal but progressed. She had generalized weakness and fatigue associated with this as well. She says she noted her legs were also swelling. She was given lasix as an outpatient and while her swelling improved, she overall did not. She was sent in for further evaluation. She denies fevers, chills, lightheadedness, dizziness , chest pain, abdominal pain, nausea, vomiting, diarrhea, constipation, or difficulty urinating. She endorses decreased appetite and fluid intake. History Source: Patient Limitations to Obtaining History: No Limitations - Past Medical History Cardiovascular: Yes: HTN Pulmonary: Yes: Other (diaphragmatic hernia) Gastrointestinal: Yes: Diverticulitis (osteoarthritis right hip) Renal/: Yes: Renal Calculi, UTI, Other (bladder dysfunction) Heme/Onc: Yes: Thrombocytopenia (s/p splenectomy), Other (lymphoma -Mantle cell) Psych: Yes: Anxiety, Depression Musculoskeletal: Yes: Chronic low back pain, Osteoarthritis (right hip) Rheumatology: Yes: Other (degenerative spine disease) Endocrine: Yes: Diabetes Mellitus - Past Surgical History Past Surgical History: Yes: Laminectomy (cervical laminectomy x2 (2002)), Splenectomy, Thoracotomy - Smoking History Smoking history: Former smoker Have you smoked in the past 12 months: No Aproximately how many cigarettes per day: 0 If you are a former smoker, when did you quit?: 2001 - Alcohol/Substance Use Hx Alcohol Use: No History of Substance Use: reports: None - Social History Usual Living Arrangement: Yes: With Significant Other ADL: Independent 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, , 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 History of Recent Travel: No Home Medications - Allergies Allergies/Adverse Reactions: Allergies Allergy/AdvReac Type Severity Reaction Status Date / Time ciprofloxacin HCl Allergy Intermediate Itching Verified 05/26/17 08:49 [From Cipro] levofloxacin [From Levaquin] Allergy Intermediate Rash Verified 05/26/17 08:49 atorvastatin calcium Allergy Mild muscle Verified 05/26/17 08:49 [From Lipitor] aches - Home Medications Home Medications: Ambulatory Orders Sertraline HCl [Zoloft -] 25 mg PO DAILY 08/28/14 Alprazolam [Xanax] 0.5 mg PO Q8H PRN #0 tablet 09/10/14 Pantoprazole Sodium [Protonix -] 40 mg PO DAILY #0 tablet.ec 09/10/14 Morphine Sulfate 15 mg PO QID PRN 03/31/16 Allopurinol [Zyloprim -] 150 mg PO DAILY #60 tablet 04/07/16 Albuterol Sulfate Inhaler - [Ventolin HFA Inhaler -] 1 - 2 inh PO PRN 08/09/16 Calcium Carbonate 648 mg PO BID 08/09/16 Amlodipine Besylate [Norvasc -] 5 mg PO DAILY #0 tablet 10/29/16 Docusate Sodium [Colace -] 100 mg PO BID #60 tab-cap 10/29/16 Morphine *Sr* [MS Contin -] 60 mg PO TID #120 tab.sa MDD 180mg 12/28/16 Sitagliptin Phosphate [Januvia] 50 mg PO DAILY 03/18/17 Glipizide Xl [Glucotrol Xl -] 10 mg PO BIDAC tab.er.24 05/23/17 Acetaminophen [Tylenol .Regular Strength -] 650 mg PO PRN 05/26/17 predniSONE [Deltasone -] 40 mg PO DAILY #60 tablet 06/20/17 Ascorbic Acid [Vitamin C] 1,000 mg PO DAILY 08/17/17 Ferrous Sulfate 325 mg PO DAILY 08/17/17 Furosemide [Lasix] 40 mg PO DAILY 08/17/17 Family Disease History - Family Disease History Family Disease History: Heart Disease: Mother, Other: Father (thrombocytopenia) , Daughter (hypothyroidism) Review of Systems Findings/Remarks: Full review of systems obtained, as per HPI and otherwise negative Physical Examination Vital Signs: Vital Signs Temperature 36.6 C 08/17/17 13:29 Pulse Rate 89 08/17/17 13:29 Respiratory Rate 22 08/17/17 13:29 Blood Pressure 138/64 08/17/17 13:29 O2 Sat by Pulse Oximetry (%) Constitutional: Yes: No Distress, Calm, Obese Eyes: Yes: Conjunctiva Clear, EOM Intact, PERRL HENT: Yes: Atraumatic, Normocephalic Cardiovascular: Yes: Regular Rate and Rhythm. No: Gallop, Murmur, Rub Respiratory: Yes: Regular, CTA Bilaterally, On Nasal O2. No: Rales, Rhonchi, Wheezes Gastrointestinal: Yes: Normal Bowel Sounds, Soft. No: Distention, Tenderness Extremities: Yes: WNL Edema: Yes Edema: LLE: 2+, RLE: 2+ Labs: Laboratory Results - last 24 hr 08/17/17 08/17/17 08/18/17 16:48 19:50 02:22 WBC RBC Hgb Hct MCV MCH MCHC RDW Plt Count MPV Neutrophils % Lymphocytes % Monocytes % Eosinophils % Basophils % Sodium Potassium Chloride Carbon Dioxide Anion Gap BUN Creatinine Creat Clearance w eGFR POC Glucometer 102 Random Glucose Calcium Phosphorus Magnesium Ferritin Total Bilirubin AST ALT Alkaline Phosphatase LD Total Total Protein Albumin TSH Free T4 Urine Color Light red Urine Appearance Cloudy Urine pH 5.0 Ur Specific May 1.006 Urine Protein 2+ H Urine Glucose (UA) Negative Urine Ketones Negative Urine Blood 3+ H Urine Nitrite Negative Urine Bilirubin Negative Urine Urobilinogen Negative Ur Leukocyte Esterase 1+ H Urine WBC (Auto) 57 Urine RBC (Auto) 1343 Ur Epithelial Cells Rare Urine Bacteria Rare Urine Mucus Rare Blood Type A POSITIVE Antibody Screen Negative 08/18/17 08/18/17 08/18/17 05:30 05:30 05:30 WBC 8.9 RBC 3.90 Hgb 8.6 L Hct 29.4 L MCV 75.4 L MCH 22.1 L MCHC 29.3 L RDW 20.6 H Plt Count 19 L* D MPV 6.4 L D Neutrophils % 92.4 H D Lymphocytes % 4.3 L D Monocytes % 2.4 L D Eosinophils % 0.2 D Basophils % 0.7 Sodium 134 L 133 L Potassium 3.8 3.7 Chloride 93 L 92 L Carbon Dioxide 34 H 35 H Anion Gap 7 L 6 L BUN 13 13 Creatinine 1.2 H 1.2 H Creat Clearance w eGFR 44.95 POC Glucometer Random Glucose 191 H 187 H Calcium 8.2 L 8.0 L Phosphorus 3.3 Magnesium 2.3 Ferritin 21.873 Total Bilirubin 0.4 D AST 17 ALT 7 L Alkaline Phosphatase 83 LD Total 224 Total Protein 8.2 Albumin 3.3 L TSH 0.76 Free T4 1.30 Urine Color Urine Appearance Urine pH Ur Specific May Urine Protein Urine Glucose (UA) Urine Ketones Urine Blood Urine Nitrite Urine Bilirubin Urine Urobilinogen Ur Leukocyte Esterase Urine WBC (Auto) Urine RBC (Auto) Ur Epithelial Cells Urine Bacteria Urine Mucus Blood Type Antibody Screen 08/18/17 08/18/17 06:42 12:33 WBC RBC Hgb Hct MCV MCH MCHC RDW Plt Count MPV Neutrophils % Lymphocytes % Monocytes % Eosinophils % Basophils % Sodium Potassium Chloride Carbon Dioxide Anion Gap BUN Creatinine Creat Clearance w eGFR POC Glucometer 216 277 Random Glucose Calcium Phosphorus Magnesium Ferritin Total Bilirubin AST ALT Alkaline Phosphatase LD Total Total Protein Albumin TSH Free T4 Urine Color Urine Appearance Urine pH Ur Specific May Urine Protein Urine Glucose (UA) Urine Ketones Urine Blood Urine Nitrite Urine Bilirubin Urine Urobilinogen Ur Leukocyte Esterase Urine WBC (Auto) Urine RBC (Auto) Ur Epithelial Cells Urine Bacteria Urine Mucus Blood Type Antibody Screen Problem List - Problems (1) Hypoxia Assessment/Plan: -unclear source -ABG ordered and reviewed -chest x-ray reviewed -continue lasix -if does not improve, pulmonary consult Code(s): R09.02 - HYPOXEMIA (2) Weakness Assessment/Plan: -suspect secondary to hypoxia -PT consult Code(s): R53.1 - WEAKNESS (3) Acute ITP Assessment/Plan: -platelets 8000 today -hematology consult -may need increase in steroids Code(s): D69.3 - IMMUNE THROMBOCYTOPENIC PURPURA (4) CKD stage 3 secondary to diabetes Assessment/Plan: -at baseline -monitor Code(s): E11.22 - TYPE 2 DIABETES MELLITUS W DIABETIC CHRONIC KIDNEY DISEASE; N18.3 - CHRONIC KIDNEY DISEASE, STAGE 3 (MODERATE) (5) Chronic pain Assessment/Plan: -continue MS contin -monitor for need to decrease Code(s): G89.29 - OTHER CHRONIC PAIN Qualifiers: Chronic pain type: chronic pain syndrome Qualified Code(s): G89.4 - Chronic pain syndrome (6) Diabetes mellitus Assessment/Plan: -continue home regimen -FSBS and SSI Code(s): E11.9 - TYPE 2 DIABETES MELLITUS WITHOUT COMPLICATIONS (7) HTN (hypertension) Assessment/Plan: -continue amlodipine Code(s): I10 - ESSENTIAL (PRIMARY) HYPERTENSION Qualifiers:
[2017-08-17 14:33] LABS: ARTERIAL BLD GAS O2 SATURATION 89.6 % (90-98.9); ARTERIAL BLOOD GAS BASE EXCESS 7.8 meq/l (-2-2); ARTERIAL BLOOD GAS PO2 62.4 mmHg (80-100); ARTERIAL BLOOD GAS pH 7.41 (7.35-7.45)
[2017-08-17] MEDS ORDERED: morphine SULFATE IMMEDIATE RELEASE 30 MG TAB PO PRN (14:43)
[2017-08-17 15:08] LABS: ANION GAP 8 (8-16); BLOOD UREA NITROGEN 14 mg/dL (7-18); CALCIUM 8.1 mg/dL (8.5-10.1); CHLORIDE 94 mmol/L (98-107); CO2 33 mmol/L (21-32); CREATININE 1.2 mg/dL (0.55-1.02); GLUCOSE,RANDOM 91 mg/dL (74-106); MAGNESIUM 2.2 mg/dL (1.8-2.4); PHOSPHOROUS 3.4 mg/dL (2.5-4.9); POTASSIUM 3.3 mmol/L (3.5-5.1); SODIUM 135 mmol/L (136-145)
[2017-08-17 15:14] LABS: BASO % 1.2 % (0-2.0); EOS % 5.5 % (0-4.5); HEMATOCRIT 28.7 % (32.4-45.2); HEMOGLOBIN 8.7 GM/dL (10.7-15.3); LYMPH % 15.1 % (8-40); MCH 22.6 pg (25.7-33.7); MCHC 30.2 g/dl (32.0-36.0); MEAN CELL VOLUME 74.8 fl (80-96); MONO % 15.2 % (3.8-10.2); RBC 3.84 M/mm3 (3.60-5.2); RDW 20.5 % (11.6-15.6); WHITE BLOOD COUNT 8.2 K/mm3 (4.0-10.0)
[2017-08-17 15:18] LABS: ALLENS TEST POSITIVE
[2017-08-17 15:19] LABS: MEAN PLT VOLUME 4.7 fl (7.5-11.1)
[2017-08-17] MEDS: morphine SO4 SUSTAINED ACTING 30 MG TABLET.SA PO SCH ×2 (15:49→21:28)
[2017-08-17] MEDS ORDERED: ALBUTEROL SO4 18 GM HFA INHALER IH PRN (15:49)
[2017-08-17] MEDS ORDERED: PT OWN MED DRAWER 7, Y5N ONE ×2 (16:44→20:43)
[2017-08-17 17:00] LABS: PLATELET COUNT 8 K/MM3 (134-434)
[2017-08-17 17:03] LABS: PLATELET ESTIMATE DECREASED
[2017-08-17] MEDS: glipiZIDE-XL 10 MG TAB.ER.24 (FP) PO SCH (17:35)
[2017-08-17] MEDS: morphine SULFATE IMMEDIATE RELEASE 30 MG TAB PO PRN (21:27)
[2017-08-17] MEDS: DOCUSATE SODIUM 100 MG CAPSULE (FP) PO SCH (21:27)
--- NOTE | 2017-08-17 21:58 | CONSULT ---
Consult - text type - Consultation Consultation Note: Patient seen and examined 65 year old female, with a significant past medical history of mantle cell lymphoma, NIDDM, diverticulitis, anxiety, bladder dysfunction, HTN, and ITP who presents to PMD with slowly worsening shortness of breath over last 2 months and increaing fatigue. She denies recent fevers, chills, headache or dizziness. She denies recent nausea, vomiting, diarrhea or constipation. She denies recent dysuria, frequency, urgency or hematuria. Her platelet count 08/07 was 400,000 Now with Plts of 8000 Allergies:cipro, levo, atorvastatin Past surgical history: Splenectomy, cervical laminectomy x2 Social history: Nonsmoker. Denies EtOH use and drug use. - Past Medical History Cancer: Yes (lymphoma) Diabetes: Yes (niddm) GI Disorders: Yes (DIVERTICULITIS) Disorders: Yes (bladder dysfunction) Psychiatric Problems: Yes (ANXIETY) - Surgical History Abdominal Surgery: Yes (SPLENECTOMY) Neurologic Surgery: (cervical laminectomy x 2) Orthopedic Surgery: Yes (Anterior and posterior cervical laminectomy with fusion ) - Psycho/Social/Smoking Cessation Hx Anxiety: Yes Smoking History: Never smoked - Past Medical History Allergies/Adverse Reactions: Allergies Allergy/AdvReac Type Severity Reaction Status Date / Time ciprofloxacin HCl Allergy Intermediate Itching Verified 08/09/16 09:59 [From Cipro] levofloxacin [From Levaquin] Allergy Intermediate Rash Verified 08/09/16 09:59 atorvastatin calcium Allergy Mild muscle Verified 08/09/16 09:59 [From Lipitor] aches Home Medications: Ambulatory Orders Sertraline HCl [Zoloft -] 25 mg PO DAILY 08/28/14 Lisinopril [Prinivil] 10 mg PO DAILY #30 tablet 09/09/14 Alprazolam [Xanax] 0.5 mg PO Q8H PRN #0 tablet 09/10/14 Morphine *Sr* [MS Contin -] 30 mg PO TID #0 tablet.sa 09/10/14 Pantoprazole Sodium [Protonix -] 40 mg PO DAILY #0 tablet.ec 09/10/14 Glipizide [Glucotrol Xl] 5 mg PO BID 11/12/15 Metformin HCl [Metformin HCl ER] 1,000 mg PO BID 03/31/16 Morphine Sulfate 15 mg PO QID PRN 03/31/16 Pregabalin [Lyrica] 25 mg PO DAILY 03/31/16 Allopurinol [Zyloprim -] 150 mg PO DAILY #60 tablet 04/07/16 Amlodipine Besylate 10 mg PO DAILY #30 tablet 04/07/16 Amlodipine Besylate [Norvasc -] 5 mg PO DAILY #30 tablet 04/07/16 Prednisone [Deltasone] 50 mg PO DAILY #42 tablet 04/07/16 Active Medications Albuterol Sulfate (Ventolin Hfa Inhaler -) 2 puff IH Q4H PRN PRN Reason: SHORT OF BREATH/WHEEZING Allopurinol (Zyloprim -) 150 mg PO DAILY [facility] Last Admin: 10/23/16 10:17 Dose: 150 mg Alprazolam (Xanax -) 0.5 mg PO Q8H PRN PRN Reason: ANXIETY Last Admin: 10/23/16 02:58 Dose: 0.5 mg Calcium Carbonate (Calcium Carbonate -) 650 mg PO BID [facility] Last Admin: 10/23/16 10:17 Dose: 650 mg Docusate Sodium (Colace -) 100 mg PO BID [facility] Last Admin: 10/23/16 12:20 Dose: 100 mg Glipizide (Glucotrol -) 5 mg PO BIDAC [facility] Last Admin: 10/23/16 06:31 Dose: 5 mg Sodium Chloride (Normal Saline -) 1,000 mls @ 42 mls/hr IV ASDIR [facility] Last Admin: 10/22/16 23:13 Dose: 42 mls/hr Insulin Aspart (Novolog Vial Sliding Scale -) 1 vial SQ ACHS [facility] PRN Reason: Protocol Last Admin: 10/23/16 11:53 Dose: Not Given Lisinopril (Prinivil) 10 mg PO DAILY [facility] Last Admin: 10/23/16 10:17 Dose: 10 mg Metformin HCl (Glucophage -) 1,000 mg PO BIDAC [facility] Last Admin: 10/23/16 06:31 Dose: 1,000 mg Methylprednisolone Sodium Succinate (Solu-Medrol -) 55 mg IVPB Q12H [facility] Last Admin: 10/23/16 10:17 Dose: 55 mg Morphine Sulfate (Ms Contin -) 30 mg PO TID [facility] Last Admin: 10/23/16 14:06 Dose: 30 mg Morphine Sulfate (Msir -) 15 mg PO Q4H PRN PRN Reason: breakthrough pain Last Admin: 10/23/16 10:24 Dose: 15 mg Pantoprazole Sodium (Protonix -) 40 mg PO DAILY [facility] Last Admin: 10/23/16 10:17 Dose: 40 mg Potassium Citrate/Citric Acid (Cytra-K -) 10 meq PO TID [facility] Last Admin: 10/23/16 14:06 Dose: 10 meq Sertraline HCl (Zoloft -) 25 mg PO DAILY [facility] Last Admin: 10/23/16 10:18 Dose: 25 mg *Physical Exam - Vital Signs Last Vital Signs Temp Pulse Resp BP Pulse Ox 97.9 F 85 20 129/59 93 L 08/17/17 17:57 08/17/17 17:57 08/17/17 17:57 08/17/17 17:57 08/17/17 13:35 Cor: RSR, No murmurs, No gallops Lungs: Clear to P&A Abd: Soft, Normal bowel sounds, No organomegaly Ext:2+ edema b/l Abnormal Lab Results 08/17/17 08/17/17 08/17/17 13:58 13:58 14:20 Hgb 8.7 L Hct 28.7 L MCV 74.8 L MCH 22.6 L MCHC 30.2 L RDW 20.5 H Plt Count 8 L* D MPV 4.7 L Monocytes % 15.2 H Eosinophils % 5.5 H D ABG pCO2 at Pt Temp 54.0 H D ABG pO2 at Pt Temp 62.4 L D ABG HCO3 33.1 H ABG O2 Sat (Measured) 89.6 L ABG O2 Content 10.4 L ABG Base Excess 7.8 H Sodium 135 L Potassium 3.3 L Chloride 94 L Carbon Dioxide 33 H Creatinine 1.2 H Calcium 8.1 L Active Medications Generic Name Dose Route Start Last Admin Trade Name Freq PRN Reason Stop Dose Admin Acetaminophen 650 mg 08/17/17 14:25 08/17/17 19:47 Tylenol - PO 650 mg Q4H PRN Administration FEVER Albuterol Sulfate 2 puff 08/17/17 15:49 Ventolin Hfa Inhaler - IH Q4H PRN ASTHMA Allopurinol 150 mg 08/18/17 10:00 Zyloprim - PO DAILY [facility] Alprazolam 0.5 mg 08/17/17 13:46 08/17/17 22:32 Xanax - PO 0.5 mg Q8H PRN Administration ANXIETY Amlodipine Besylate 5 mg 08/18/17 10:00 Norvasc - PO DAILY [facility] Ascorbic Acid 1,000 mg 08/18/17 10:00 Vitamin C - PO DAILY [facility] Calcium Carbonate 650 mg 08/17/17 22:00 08/17/17 22:32 Calcium Carbonate - PO 650 mg BID PRASHANT Administration Docusate Sodium 100 mg 08/17/17 22:00 08/17/17 21:27 Colace - PO 100 mg BID PRASHANT Administration Ferrous Sulfate 325 mg 08/18/17 10:00 Feosol - PO DAILY [facility] Furosemide 40 mg 08/18/17 10:00 Lasix - PO DAILY [facility] Glipizide 10 mg 08/17/17 16:30 08/17/17 17:35 Glucotrol Xl - PO Not Given BIDAC [facility] Morphine Sulfate 60 mg 08/17/17 14:00 08/17/17 21:28 Ms Contin - PO 60 mg TID [facility] Administration Morphine Sulfate 15 mg 08/17/17 14:43 08/17/17 21:27 Msir - PO 15 mg Q6H PRN Administration PAIN LEVEL 6-10 Non-Formulary Medication 1,000 mg 08/18/17 10:00 Ascorbic Acid [Vitamin C] PO DAILY [facility] Pantoprazole Sodium 40 mg 08/18/17 10:00 Protonix - PO DAILY [facility] Prednisone 40 mg 08/18/17 10:00 Deltasone - PO DAILY [facility] Sertraline HCl 25 mg 08/18/17 10:00 Zoloft - PO DAILY [facility] Sitagliptin Phosphate 50 mg 08/18/17 07:00 Januvia - PO ACBK [facility] A/P 66 y/o patient with ITP/mantle cell lymphoma, h/o antiphospholipids, nephrolithiasis, DM, comes in with recurrent ITP ( platelet count nl 10days back ) and worsening anemia, exertional dyspnea, fatigue No active bleeding Given exertional dyspnea--check CT chest/ pulmonary/cardiology consults/echo ? worsening anemia ? lymphoma check iron studies/ferrtitin transfuse PRBCs Lower extremity edema: ? due to steroids recent duplex neg. at PMDs office repeat duplex ITP : frequent recurrences PET_CT 06/29 showed small nodes mesenteric, external iliac with low SUVs ? inflammatory Transfuse monodonor platelets/decadron will re dose IVIG ?? ibrutinib
[2017-08-17] MEDS: CALCIUM CARBONATE 650 MG TABLET PO SCH (22:32)
[2017-08-17] MEDS ORDERED: DEXAMETHASONE SOD PHOSPHATE 4 MG/1 ML VIAL IVPB ONE (23:15)
[2017-08-17] MEDS ORDERED: ACETAMINOPHEN 325 MG TABLET (FP) PO ONE (23:30)
[2017-08-18 03:14] LABS: URINE APPEARANCE CLOUDY; URINE BILIRUBIN NEGATIVE (NEGATIVE); URINE BLOOD 3+ (NEGATIVE); URINE GLUCOSE (UA) NEGATIVE (NEGATIVE); URINE KETONE NEGATIVE (NEGATIVE); URINE NITRITE NEGATIVE (NEGATIVE); URINE UROBILINOGEN NEGATIVE mg/dL (0.2-1.0)
[2017-08-18 03:19] LABS: URINE COLOR LIGHT RED; URINE LEUK ESTERASE 1+ (NEGATIVE); URINE PROTEIN 2+ (NEGATIVE)
[2017-08-18 03:21] LABS: EPI CELLS RARE /HPF (FEW); URINE BACTERIA RARE /hpf (NONE SEEN); URINE MUCUS RARE
[2017-08-18] MEDS: morphine SULFATE IMMEDIATE RELEASE 30 MG TAB PO PRN (03:35)
[2017-08-18] MEDS: morphine SO4 SUSTAINED ACTING 30 MG TABLET.SA PO SCH ×3 (06:43→22:38)
[2017-08-18] MEDS: glipiZIDE-XL 10 MG TAB.ER.24 (FP) PO SCH ×2 (06:43→19:24)
[2017-08-18] MEDS: sitaGLIPtin PHOSPHATE 50 MG TABLET PO SCH (06:43)
[2017-08-18 06:59] LABS: BASO % 0.7 % (0-2.0); EOS % 0.2 % (0-4.5); HEMATOCRIT 29.4 % (32.4-45.2); HEMOGLOBIN 8.6 GM/dL (10.7-15.3); LYMPH % 4.3 % (8-40); MCH 22.1 pg (25.7-33.7); MCHC 29.3 g/dl (32.0-36.0); MEAN CELL VOLUME 75.4 fl (80-96); MEAN PLT VOLUME 6.4 fl (7.5-11.1); MONO % 2.4 % (3.8-10.2); NEUT % 92.4 % (42.8-82.8); RDW 20.6 % (11.6-15.6); WHITE BLOOD COUNT 8.9 K/mm3 (4.0-10.0)
[2017-08-18 07:04] LABS: ANION GAP 7 (8-16); BLOOD UREA NITROGEN 13 mg/dL (7-18); CALCIUM 8.2 mg/dL (8.5-10.1); CHLORIDE 93 mmol/L (98-107); CO2 34 mmol/L (21-32); CREATININE 1.2 mg/dL (0.55-1.02); GLUCOSE,RANDOM 191 mg/dL (74-106); MAGNESIUM 2.3 mg/dL (1.8-2.4); PHOSPHOROUS 3.3 mg/dL (2.5-4.9); POTASSIUM 3.8 mmol/L (3.5-5.1); SODIUM 134 mmol/L (136-145)
[2017-08-18 07:05] LABS: ALBUMIN 3.3 g/dl (3.4-5.0); ANION GAP 6 (8-16); BILIRUBIN,TOTAL 0.4 mg/dL (0.2-1.0); BLOOD UREA NITROGEN 13 mg/dL (7-18); CHLORIDE 92 mmol/L (98-107); CO2 35 mmol/L (21-32); CREATININE 1.2 mg/dL (0.55-1.02); GLUCOSE,RANDOM 187 mg/dL (74-106); LDH 224 U/L (84-246); POTASSIUM 3.7 mmol/L (3.5-5.1); SGOT/AST 17 U/L (15-37); SGPT/ALT 7 U/L (12-78); SODIUM 133 mmol/L (136-145); TOT PROT 8.2 g/dl (6.4-8.2)
[2017-08-18 07:08] LABS: ALK PHOS 83 U/L (45-117)
[2017-08-18 07:54] LABS: PLATELET COUNT 19 K/MM3 (134-434)
[2017-08-18] MEDS ORDERED: PATIENT'S OWN MEDICATION (NON-FORMULARY) (Ferrous Sulfate [Ferrous Sulfate] 325 MG) PO SCH (10:00)
[2017-08-18] MEDS ORDERED: FUROSEMIDE 40 MG TABLET (FP) PO SCH (10:00)
[2017-08-18] MEDS ORDERED: ACETAMINOPHEN 325 MG TABLET (FP) PO SCH (10:00)
[2017-08-18] MEDS ORDERED: predniSONE 20 MG TABLET (UD) PO SCH (10:00)
[2017-08-18] MEDS ORDERED: IMMUNE GLOBULIN (IgG) 10 GM VIAL IVPB SCH (10:00)
[2017-08-18] MEDS ORDERED: ASCORBIC ACID 1000 MG PO SCH (10:00)
[2017-08-18] MEDS: PANTOPRAZOLE 40 MG TABLET (FP) PO SCH (10:35)
[2017-08-18] MEDS: amLODIPine BESYLATE 5 MG TABLET (FP) PO SCH (10:35)
[2017-08-18] MEDS: FERROUS SO4 325 MG TABLET (FP) PO SCH (10:35)
[2017-08-18] MEDS: SERTRALINE HCL 25 MG TABLET (FP) PO SCH (10:35)
[2017-08-18] MEDS: ALLOPURINOL 100 MG TABLET (FP) PO SCH (10:36)
[2017-08-18] MEDS: DOCUSATE SODIUM 100 MG CAPSULE (FP) PO SCH ×2 (10:36→22:38)
[2017-08-18] MEDS: CALCIUM CARBONATE 650 MG TABLET PO SCH ×2 (10:36→22:38)
[2017-08-18] MEDS: ACETAMINOPHEN 325 MG TABLET (FP) PO SCH (10:37)
[2017-08-18] MEDS: ASCORBIC ACID 1000 MG PO SCH (10:37)
--- NOTE | 2017-08-18 11:23 | PN ---
Progress Note, Physician Chief Complaint: Patient still with dyspnea and weakness. No cp or n/v. - Current Medication List Current Medications: Active Medications Acetaminophen (Tylenol -) 650 mg PO DAILY [facility] Stop: 08/22/17 10:01 Last Admin: 08/18/17 10:37 Dose: 650 mg Albuterol Sulfate (Ventolin Hfa Inhaler -) 2 puff IH Q4H PRN PRN Reason: ASTHMA Allopurinol (Zyloprim -) 150 mg PO DAILY [facility] Last Admin: 08/18/17 10:36 Dose: 150 mg Alprazolam (Xanax -) 0.25 mg PO Q8H PRN PRN Reason: ANXIETY Amlodipine Besylate (Norvasc -) 5 mg PO DAILY [facility] Last Admin: 08/18/17 10:35 Dose: 5 mg Ascorbic Acid (Vitamin C -) 1,000 mg PO DAILY [facility] Calcium Carbonate (Calcium Carbonate -) 650 mg PO BID [facility] Last Admin: 08/18/17 10:36 Dose: 650 mg Dexamethasone Sodium Phosphate (Decadron Injection -) 20 mg IVPB DAILY [facility] Stop: 08/22/17 10:01 Diphenhydramine HCl (Benadryl Injection -) 25 mg IVPB DAILY [facility] Stop: 08/22/17 10:01 Last Admin: 08/18/17 10:37 Dose: 25 mg Docusate Sodium (Colace -) 100 mg PO BID [facility] Last Admin: 08/18/17 10:36 Dose: 100 mg Ferrous Sulfate (Feosol -) 325 mg PO DAILY [facility] Last Admin: 08/18/17 10:35 Dose: 325 mg Furosemide (Lasix -) 40 mg PO DAILY [facility] Last Admin: 08/18/17 10:35 Dose: 40 mg Glipizide (Glucotrol Xl -) 10 mg PO BIDAC [facility] Last Admin: 08/18/17 06:43 Dose: 10 mg Immune Globulin (Gamunex-C) 400 mls @ 100 mls/hr IVPB DAILY [facility] Stop: 08/22/17 13:59 Morphine Sulfate (Ms Contin -) 60 mg PO TID [facility] Last Admin: 08/18/17 06:43 Dose: 60 mg Morphine Sulfate (Msir -) 15 mg PO Q6H PRN PRN Reason: PAIN LEVEL 6-10 Last Admin: 08/18/17 03:35 Dose: 15 mg Non-Formulary Medication (Ascorbic Acid [Vitamin C]) 1,000 mg PO DAILY [facility] Last Admin: 08/18/17 10:37 Dose: 1,000 mg Pantoprazole Sodium (Protonix -) 40 mg PO DAILY [facility] Last Admin: 08/18/17 10:35 Dose: 40 mg Sertraline HCl (Zoloft -) 25 mg PO DAILY [facility] Last Admin: 08/18/17 10:35 Dose: 25 mg Sitagliptin Phosphate (Januvia -) 50 mg PO ACBK [facility] Last Admin: 08/18/17 06:43 Dose: Not Given - Objective Vital Signs: Vital Signs Temperature 37.0 C 08/18/17 06:28 Pulse Rate 63 08/18/17 06:28 Respiratory Rate 20 08/18/17 06:28 Blood Pressure 143/77 08/18/17 06:28 O2 Sat by Pulse Oximetry (%) 93 L 08/17/17 21:00 Constitutional: Yes: No Distress, Calm, Obese Cardiovascular: Yes: Regular Rate and Rhythm. No: Gallop, Murmur, Rub Respiratory: Yes: Regular, CTA Bilaterally, On Nasal O2. No: Rales, Rhonchi, Wheezes Gastrointestinal: Yes: Normal Bowel Sounds, Soft. No: Distention, Tenderness Extremities: Yes: WNL Edema: Yes Edema: LLE: 2+, RLE: 2+ Labs: CBC, BMP 08/18/17 05:30 08/18/17 05:30 Assessment/Plan (1) Hypoxia Assessment/Plan: -unclear source -chest CT reviewed -agree with pulmonary and cardiology consult -order ECHO Code(s): R09.02 - HYPOXEMIA (2) Weakness Assessment/Plan: -suspect secondary to hypoxia -PT consulted Code(s): R53.1 - WEAKNESS (3) Acute ITP Assessment/Plan: -hematology consulted -planning for IVIG Code(s): D69.3 - IMMUNE THROMBOCYTOPENIC PURPURA (4) CKD stage 3 secondary to diabetes Assessment/Plan: -at baseline -monitor Code(s): E11.22 - TYPE 2 DIABETES MELLITUS W DIABETIC CHRONIC KIDNEY DISEASE; N18.3 - CHRONIC KIDNEY DISEASE, STAGE 3 (MODERATE) (5) Chronic pain Assessment/Plan: -continue MS contin -monitor for need to decrease -make xanax prn Code(s): G89.29 - OTHER CHRONIC PAIN Qualifiers: Chronic pain type: chronic pain syndrome Qualified Code(s): G89.4 - Chronic pain syndrome (6) Diabetes mellitus Assessment/Plan: -continue home regimen -FSBS and SSI Code(s): E11.9 - TYPE 2 DIABETES MELLITUS WITHOUT COMPLICATIONS (7) HTN (hypertension) Assessment/Plan: -continue amlodipine Code(s): I10 - ESSENTIAL (PRIMARY) HYPERTENSION Qualifiers: (8) Anemia -consult GI
[2017-08-18] MEDS: DEXAMETHASONE SOD PHOSPHATE 10 MG/1 ML VIAL IVPB SCH (11:45)
[2017-08-18] MEDS: ASCORBIC ACID 500 MG TABLET (FP) PO SCH (11:52)
[2017-08-18] MEDS: IMMUNE GLOB,GAM CAPRYLATE(IGG) 40 GM IVPB SCH (12:41)
--- NOTE | 2017-08-18 12:51 | CON.PULM ---
Consult Consult Specialty:: PULMONARY Referred by:: RADHA Reason for Consultation:: ELEVATED HEMIDIAPHRAGM LEFT - History of Present Illness Chief Complaint: FATIGUE/SOB History of Present Illness: 65 year old female, with a significant past medical history of mantle cell lymphoma, NIDDM, diverticulitis, anxiety, bladder dysfunction, HTN, ITP, splenectomy with surgical injury to left hemidiaphragm and subsequent repair presents to PMD with slowly worsening shortness of breath over last 2 months and increaing fatigue. She denies recent fevers, chills, headache or dizziness. She denies recent nausea, vomiting, diarrhea or constipation. She denies recent dysuria, frequency, urgency or hematuria. 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 No: AFIB Pulmonary: Yes: COPD, Other (elevated left hemidiaphragm) Gastrointestinal: Yes: Diverticulitis (osteoarthritis right hip). No: Ascites Hepatobiliary: No: Cirrhosis Renal/: Yes: Renal Calculi, UTI, Other (bladder dysfunction). No: Renal Failure Reproductive: Yes: Postmenopausal ...: No Heme/Onc: Yes: Anemia, Thrombocytopenia, Other (mantle cell lymphoma) Infectious Disease: No: AIDS Psych: Yes: Anxiety, Depression Musculoskeletal: Yes: Chronic low back pain, Osteoarthritis (right hip) Rheumatology: Yes: Other (degenerative spine disease) Endocrine: Yes: Diabetes Mellitus Additional Medical History: ITP, Mantle Cell Lymphoma - Past Surgical History Past Surgical History: Yes: Laminectomy (cervical laminectomy x2 (2002)), Splenectomy, Thoracotomy - Alcohol/Substance Use Hx Alcohol Use: No History of Substance Use: reports: None - Smoking History Smoking history: Former smoker Have you smoked in the past 12 months: No Aproximately how many cigarettes per day: 0 If you are a former smoker, when did you quit?: 2001 - Social History Usual Living Arrangement: Other ADL: Independent 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, , [address] of : [facility] History of Recent Travel: No Home Medications - Allergies Allergies/Adverse Reactions: Allergies Allergy/AdvReac Type Severity Reaction Status Date / Time ciprofloxacin HCl Allergy Intermediate Itching Verified 05/26/17 08:49 [From Cipro] levofloxacin [From Levaquin] Allergy Intermediate Rash Verified 05/26/17 08:49 atorvastatin calcium Allergy Mild muscle Verified 05/26/17 08:49 [From Lipitor] aches - Home Medications Home Medications: Ambulatory Orders Sertraline HCl [Zoloft -] 25 mg PO DAILY 08/28/14 Alprazolam [Xanax] 0.5 mg PO Q8H PRN #0 tablet 09/10/14 Pantoprazole Sodium [Protonix -] 40 mg PO DAILY #0 tablet.ec 09/10/14 Morphine Sulfate 15 mg PO QID PRN 03/31/16 Allopurinol [Zyloprim -] 150 mg PO DAILY #60 tablet 04/07/16 Albuterol Sulfate Inhaler - [Ventolin HFA Inhaler -] 1 - 2 inh PO PRN 08/09/16 Calcium Carbonate 648 mg PO BID 08/09/16 Amlodipine Besylate [Norvasc -] 5 mg PO DAILY #0 tablet 10/29/16 Docusate Sodium [Colace -] 100 mg PO BID #60 tab-cap 10/29/16 Morphine *Sr* [MS Contin -] 60 mg PO TID #120 tab.sa MDD 180mg 12/28/16 Sitagliptin Phosphate [Januvia] 50 mg PO DAILY 03/18/17 Glipizide Xl [Glucotrol Xl -] 10 mg PO BIDAC tab.er.24 05/23/17 Acetaminophen [Tylenol .Regular Strength -] 650 mg PO PRN 05/26/17 predniSONE [Deltasone -] 40 mg PO DAILY #60 tablet 06/20/17 Ascorbic Acid [Vitamin C] 1,000 mg PO DAILY 08/17/17 Ferrous Sulfate 325 mg PO DAILY 08/17/17 Furosemide [Lasix] 40 mg PO DAILY 08/17/17 Family Disease History - Family Disease History Family Disease History: Heart Disease: Mother, Other: Father (thrombocytopenia) , Daughter (hypothyroidism) Review of Systems - Review of Systems Respiratory: reports: SOB, SOB on Exertion Physical Exam Vital Sings: Vital Signs Temperature 98.6 F 08/18/17 06:28 Pulse Rate 63 08/18/17 06:28 Respiratory Rate 20 08/18/17 06:28 Blood Pressure 143/77 08/18/17 06:28 O2 Sat by Pulse Oximetry (%) 93 L 08/17/17 21:00 Constitutional: Yes: Calm Eyes: Yes: EOM Intact HENT: Yes: Normocephalic Neck: Yes: Trachea Midline Cardiovascular: Yes: S1, S2 Respiratory: Yes: Diminished Gastrointestinal: Yes: Soft, Abdomen, Obese Edema: LLE: 1+, RLE: 1+ Neurological: Yes: Alert Labs: CBC, BMP 08/18/17 05:30 08/18/17 05:30 ABG Results ABG pH 7.41 (7.35-7.45) D 08/17/17 14:20 ABG pCO2 at Pt Temp 54.0 mmHg (35-45) H D 08/17/17 14:20 ABG pO2 at Pt Temp 62.4 mmHg (80-100) L D 08/17/17 14:20 ABG HCO3 33.1 meq/L (22-26) H 08/17/17 14:20 ABG O2 Sat (Measured) 89.6 % (90-98.9) L 08/17/17 14:20 ABG O2 Content 10.4 % vol (15-22) L 08/17/17 14:20 ABG Base Excess 7.8 meq/l (-2-2) H 08/17/17 14:20 rest reviewed Imaging - Results Chest X-ray: Report Reviewed, Image Reviewed Cat Scan: Report Reviewed, Image Reviewed Problem List - Problems (1) Abdominal pain Code(s): R10.9 - UNSPECIFIED ABDOMINAL PAIN (2) Acute ITP Code(s): D69.3 - IMMUNE THROMBOCYTOPENIC PURPURA (3) Anemia Code(s): D64.9 - ANEMIA, UNSPECIFIED (4) CKD stage 3 secondary to diabetes Code(s): E11.22 - TYPE 2 DIABETES MELLITUS W DIABETIC CHRONIC KIDNEY DISEASE; N18.3 - CHRONIC KIDNEY DISEASE, STAGE 3 (MODERATE) (5) DVT prophylaxis Code(s): HNB2058 - (6) Diabetes mellitus Code(s): E11.9 - TYPE 2 DIABETES MELLITUS WITHOUT COMPLICATIONS (7) Diaphragmatic hernia Code(s): K44.9 - DIAPHRAGMATIC HERNIA WITHOUT OBSTRUCTION OR GANGRENE Qualifiers: Obstruction and gangrene presence: without obstruction or gangrene Qualified Code(s): K44.9 - Diaphragmatic hernia without obstruction or gangrene (8) HTN (hypertension) Code(s): I10 - ESSENTIAL (PRIMARY) HYPERTENSION Qualifiers: (9) Mantle cell lymphoma Code(s): C83.10 - MANTLE CELL LYMPHOMA, UNSPECIFIED SITE (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 Assessment/Plan CHRONICALLY ELEVATED LEFT HEMIDIAPHRAGM STABLE APPEARING LUNG NODULE RESP STATUS STABLE AT THIS POINT MULTIPLE REASONS FOR SOB/FATIGUE IE. ANEMIA/DE-CONDITIONED STATE/UNDERLYING LYMPHOMA/ELEVATED LEFT LILA LOW INDEX OF SUSPICION FOR PNA OR PE AGREE WITH O2 SUPPLEMENTATION/BRONCHODILATORS NEEDED/INCENTIVE TONNY Jovanni LARRY MD
--- NOTE | 2017-08-18 15:35 | CON.CARD ---
Consult Consult Specialty:: Cardiology Referred by:: Roque Nice MD Reason for Consultation:: Dyspnea - History of Present Illness Chief Complaint: Dyspnea History of Present Illness: 65 year old female, with a significant past medical history of mantle cell lymphoma, NIDDM, diverticulitis, anxiety, bladder dysfunction, HTN, ITP, splenectomy with surgical injury to left hemidiaphragm and subsequent repair presents to PMD with slowly worsening shortness of breath over last 2 months and increasing fatigue, found to have microcytic anemia without overt bleed, severe ITP receiving IVIG. She denies chest pain, near or true syncope, palpitations, orthopnea, PND, reports lower extremity edema. - History Source History Provided By: Patient Limitations to Obtaining History: No Limitations - Past Medical History ACCOUNTS PAYABLE LEAD: No: Alzheimer's, CVA Cardio/Vascular: Yes: HTN. No: AFIB Pulmonary: Yes: COPD, Other (elevated left hemidiaphragm) Gastrointestinal: Yes: Diverticulitis (osteoarthritis right hip). No: Ascites Hepatobiliary: No: Cirrhosis Renal/: Yes: Renal Calculi, UTI, Other (bladder dysfunction). No: Renal Failure ...: No Infectious Disease: No: AIDS Psych: Yes: Anxiety, Depression Musculoskeletal: Yes: Chronic low back pain, Osteoarthritis (right hip) Rheumatology: Yes: Other (degenerative spine disease) Endocrine: Yes: Diabetes Mellitus Additional Medical History: ITP, Mantle Cell Lymphoma - Past Surgical History Past Surgical History: Yes: Laminectomy (cervical laminectomy x2 (2002)), Splenectomy, Thoracotomy - Alcohol/Substance Use Hx Alcohol Use: No History of Substance Use: reports: None - Smoking History Smoking history: Former smoker Have you smoked in the past 12 months: No Aproximately how many cigarettes per day: 0 If you are a former smoker, when did you quit?: 2001 - Social History Usual Living Arrangement: Other ADL: Independent 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, , 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 History of Recent Travel: No Home Medications - Allergies Allergies/Adverse Reactions: Allergies Allergy/AdvReac Type Severity Reaction Status Date / Time ciprofloxacin HCl Allergy Intermediate Itching Verified 05/26/17 08:49 [From Cipro] levofloxacin [From Levaquin] Allergy Intermediate Rash Verified 05/26/17 08:49 atorvastatin calcium Allergy Mild muscle Verified 05/26/17 08:49 [From Lipitor] aches - Home Medications Home Medications: Ambulatory Orders Sertraline HCl [Zoloft -] 25 mg PO DAILY 08/28/14 Alprazolam [Xanax] 0.5 mg PO Q8H PRN #0 tablet 09/10/14 Pantoprazole Sodium [Protonix -] 40 mg PO DAILY #0 tablet.ec 09/10/14 Morphine Sulfate 15 mg PO QID PRN 03/31/16 Allopurinol [Zyloprim -] 150 mg PO DAILY #60 tablet 04/07/16 Albuterol Sulfate Inhaler - [Ventolin HFA Inhaler -] 1 - 2 inh PO PRN 08/09/16 Calcium Carbonate 648 mg PO BID 08/09/16 Amlodipine Besylate [Norvasc -] 5 mg PO DAILY #0 tablet 10/29/16 Docusate Sodium [Colace -] 100 mg PO BID #60 tab-cap 10/29/16 Morphine *Sr* [MS Contin -] 60 mg PO TID #120 tab.sa MDD 180mg 12/28/16 Sitagliptin Phosphate [Januvia] 50 mg PO DAILY 03/18/17 Glipizide Xl [Glucotrol Xl -] 10 mg PO BIDAC tab.er.24 05/23/17 Acetaminophen [Tylenol .Regular Strength -] 650 mg PO PRN 05/26/17 predniSONE [Deltasone -] 40 mg PO DAILY #60 tablet 06/20/17 Ascorbic Acid [Vitamin C] 1,000 mg PO DAILY 08/17/17 Ferrous Sulfate 325 mg PO DAILY 08/17/17 Furosemide [Lasix] 40 mg PO DAILY 08/17/17 Family Disease History - Family Disease History Family Disease History: Heart Disease: Mother, Other: Father (thrombocytopenia) , Daughter (hypothyroidism) Review of Systems - Review of Systems Cardiovascular: reports: Edema, Shortness of Breath Vital Signs: Vital Signs Temperature 98.6 F 08/18/17 06:28 Pulse Rate 63 08/18/17 06:28 Respiratory Rate 20 08/18/17 06:28 Blood Pressure 143/77 08/18/17 06:28 O2 Sat by Pulse Oximetry (%) 93 L 08/17/17 21:00 Constitutional: Yes: No Distress, Calm Neck: Yes: Supple Respiratory: Yes: Regular, Diminished, On Nasal O2 Gastrointestinal: Yes: Normal Bowel Sounds, Soft, Abdomen, Obese Cardiovascular: Yes: Regular Rate and Rhythm JVD: No Carotid Bruit: No Heart Sounds: Yes: S1, S2 Murmur: Yes: Systolic Murmur, Grade 1 Edema: Yes Edema: LLE: 1+, RLE: 1+ - Other Data Labs, Other Data: CBC, BMP 08/18/17 05:30 08/18/17 05:30 Imaging - Results Cat Scan: Report Reviewed (Ground glass opacification, elevated left hemidiaphragm) Problem List - Problems (1) Acute ITP Code(s): D69.3 - IMMUNE THROMBOCYTOPENIC PURPURA (2) Anemia Code(s): D64.9 - ANEMIA, UNSPECIFIED Qualifiers: Anemia type: unspecified type Qualified Code(s): D64.9 - Anemia, unspecified (3) CKD stage 3 secondary to diabetes Code(s): E11.22 - TYPE 2 DIABETES MELLITUS W DIABETIC CHRONIC KIDNEY DISEASE; N18.3 - CHRONIC KIDNEY DISEASE, STAGE 3 (MODERATE) (4) Diabetes mellitus Code(s): E11.9 - TYPE 2 DIABETES MELLITUS WITHOUT COMPLICATIONS Qualifiers: Diabetes mellitus type: type 2 (5) Diaphragmatic hernia Code(s): K44.9 - DIAPHRAGMATIC HERNIA WITHOUT OBSTRUCTION OR GANGRENE Qualifiers: Obstruction and gangrene presence: without obstruction or gangrene Qualified Code(s): K44.9 - Diaphragmatic hernia without obstruction or gangrene (6) HTN (hypertension) Code(s): I10 - ESSENTIAL (PRIMARY) HYPERTENSION Qualifiers: Hypertension type: essential hypertension Qualified Code(s): I10 - Essential (primary) hypertension (7) Mantle cell lymphoma Code(s): C83.10 - MANTLE CELL LYMPHOMA, UNSPECIFIED SITE Assessment/Plan 08/18/2017 Normal biventricular size and fxn, mild LAE, MR, TR 08/29/2014 Normal LV size and fxn without sig valve abnl 1. Recurrent ITP h/o splenectomy, antiphospholipids 2. Recurrent dyspnea on exertion after failure of left diaphragmatic hernia repair/mesh 3. HTN 4. NIDDM 5. History of Mantle Cell Lymphoma 6. CKD 3, staghorn calculi and hydronephrosis 7. Chronic interstitial lung disease PLAN: 1. Resume Lisinopril 10 qd once renal fxn stable, continue Norvasc 5 qd, resume Lasix once IVIG infusion completed 2. DVT and GI prophylaxis, BD as needed 3. Steroids and IVIG course with monitor Plt 4. Consideration for re-op diaphragmatic hernia repair after recovery of plt counts 5. O2, BD as needed 6. Thank you for consultative opportunity
--- NOTE | 2017-08-18 15:58 | PN ---
Progress Note (short form) - Note Progress Note: PAtient seen and examined Denies any complaints Last Vital Signs Temp Pulse Resp BP Pulse Ox 98.6 F 63 20 143/77 93 L 08/18/17 06:28 08/18/17 06:28 08/18/17 06:28 08/18/17 06:28 08/17/17 21:00 Cor: RSR, No murmurs, No gallops Lungs: Clear to P&A Abd: Soft, Normal bowel sounds, No organomegaly Abnormal Lab Results 08/17/17 08/18/17 08/18/17 13:58 02:22 05:30 Hgb 8.6 L Hct 29.4 L MCV 75.4 L MCH 22.1 L MCHC 29.3 L RDW 20.6 H Plt Count 8 L* D 19 L* D MPV 6.4 L D Neutrophils % 92.4 H D Lymphocytes % 4.3 L D Monocytes % 2.4 L D Sodium Chloride Carbon Dioxide Anion Gap Creatinine Random Glucose Calcium ALT Albumin Urine Protein 2+ H Urine Blood 3+ H Ur Leukocyte Esterase 1+ H 08/18/17 08/18/17 05:30 05:30 Hgb Hct MCV MCH MCHC RDW Plt Count MPV Neutrophils % Lymphocytes % Monocytes % Sodium 134 L 133 L Chloride 93 L 92 L Carbon Dioxide 34 H 35 H Anion Gap 7 L 6 L Creatinine 1.2 H 1.2 H Random Glucose 191 H 187 H Calcium 8.2 L 8.0 L ALT 7 L Albumin 3.3 L Urine Protein Urine Blood Ur Leukocyte Esterase Active Medications Generic Name Dose Route Start Last Admin Trade Name Freq PRN Reason Stop Dose Admin Acetaminophen 650 mg 08/18/17 10:00 08/18/17 10:37 Tylenol - PO 08/22/17 10:01 650 mg DAILY PRASHANT Administration Albuterol Sulfate 2 puff 08/17/17 15:49 Ventolin Hfa Inhaler - IH Q4H PRN ASTHMA Allopurinol 150 mg 08/18/17 10:00 08/18/17 10:36 Zyloprim - PO 150 mg DAILY PRASHANT Administration Alprazolam 0.25 mg 08/18/17 10:57 Xanax - PO Q8H PRN ANXIETY Amlodipine Besylate 5 mg 08/18/17 10:00 08/18/17 10:35 Norvasc - PO 5 mg DAILY PRASHANT Administration Ascorbic Acid 1,000 mg 08/18/17 10:00 08/18/17 11:52 Vitamin C - PO Not Given DAILY PRASHANT Calcium Carbonate 650 mg 08/17/17 22:00 08/18/17 10:36 Calcium Carbonate - PO 650 mg BID PRASHANT Administration Dexamethasone Sodium Phosphate 20 mg 08/18/17 10:00 08/18/17 11:45 Decadron Injection - IVPB 08/22/17 10:01 20 mg DAILY PRASHANT Administration Diphenhydramine HCl 25 mg 08/18/17 10:00 08/18/17 10:37 Benadryl Injection - IVPB 08/22/17 10:01 25 mg DAILY PRASHANT Administration Docusate Sodium 100 mg 08/17/17 22:00 08/18/17 10:36 Colace - PO 100 mg BID PRASHANT Administration Ferrous Sulfate 325 mg 08/18/17 10:00 08/18/17 10:35 Feosol - PO 325 mg DAILY PRASHANT Administration Furosemide 40 mg 08/18/17 10:00 08/18/17 10:35 Lasix - PO 40 mg DAILY PRASHANT Administration Glipizide 10 mg 08/17/17 16:30 08/18/17 06:43 Glucotrol Xl - PO 10 mg BIDAC PRASHANT Administration Immune Globulin 400 mls @ 100 mls/hr 08/18/17 10:00 08/18/17 12:41 Gamunex-C IVPB 08/22/17 13:59 100 mls/hr DAILY PRASHANT Administration Morphine Sulfate 60 mg 08/17/17 14:00 08/18/17 14:08 Ms Contin - PO 60 mg TID PRASHANT Administration Morphine Sulfate 15 mg 08/17/17 14:43 08/18/17 03:35 Msir - PO 15 mg Q6H PRN Administration PAIN LEVEL 6-10 Non-Formulary Medication 1,000 mg 08/18/17 10:00 08/18/17 10:37 Ascorbic Acid [Vitamin C] PO 1,000 mg DAILY PRASHANT Administration Pantoprazole Sodium 40 mg 08/18/17 10:00 08/18/17 10:35 Protonix - PO 40 mg DAILY PRASHANT Administration Sertraline HCl 25 mg 08/18/17 10:00 08/18/17 10:35 Zoloft - PO 25 mg DAILY PRASHANT Administration Sitagliptin Phosphate 50 mg 08/18/17 07:00 08/18/17 06:43 Januvia - PO Not Given ACBK PRASHANT A/P 66 y/o patient with ITP/mantle cell lymphoma, h/o antiphospholipids, nephrolithiasis, DM, comes in with recurrent ITP ( platelet count nl 10days back ) and worsening anemia, exertional dyspnea, fatigue No active bleeding Given exertional dyspnea-- ? worsening anemia ? deconditioning check iron studies/ferrtitin CT chest --increasing mediastinal adenopathy, chronic interstitial lung disease Lower extremity edema: ? due to steroids recent duplex neg. at PMDs office ITP : frequent recurrences PET-CT 06/29 showed small nodes mesenteric, external iliac with low SUVs ? inflammatory redose IVIG will discuss with Dr. Ty
[2017-08-18] MEDS ORDERED: SODIUM CHLORIDE 1,000 ML IV SCH (16:15)
--- NOTE | 2017-08-18 16:26 | CON.GI ---
Consult Consult Specialty:: Gastroenterology Referred by:: Dr. Reyna Pham Reason for Consultation:: Anemia - History of Present Illness Chief Complaint: LUQ pain. History of Present Illness: 66F is admitted with worsening exercise tolerance and fatigue and is found to have a microcytic anemia. She denies any overt GI bleeding. She has chronic LUQ pain related to a LUQ hernia. She has mild hematuria that she relates to a UTI and which she has had in the past. No renal colic. She last had a colonoscopy with me in 1991. No FH of GI cancer. Denies acid reflux, early satiety, decreased stool caliber and weight loss. She has chronic constipation which she relates to narcotic usage. She had a normal PET scan in 06/22. She had a normal CTA in 2014. 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) Gastrointestinal: Yes: Constipation Hepatobiliary: Yes: Hepatitis B (vaccinated) Renal/: Yes: Renal Calculi (bilateral staghorn), UTI, Other (bladder dysfunction) ...: No Heme/Onc: Yes: Anemia, Cancer (Mantle cell lymphoma), Thrombocytopenia (ITP) Infectious Disease: No: AIDS Psych: Yes: Anxiety, Depression Musculoskeletal: Yes: Chronic low back pain (lumbar radiculopathy with 2012 epidural), Osteoarthritis (right hip), Other (cervical radiculopathy with laminectomy ) Rheumatology: Yes: Other (degenerative spine disease) Endocrine: Yes: Diabetes Mellitus Additional Medical History: ITP, Mantle Cell Lymphoma - Past Surgical History Past Surgical History: Yes: Colonoscopy, Laminectomy (cervical laminectomy x2 ( 2001)), Splenectomy (laparoscopic for ITP during which diaphragm was injured ), Thoracotomy (left thoracotomy 09/03/14 for mesh repair of left diaphragm) - Alcohol/Substance Use Hx Alcohol Use: No History of Substance Use: reports: None - Smoking History Smoking history: Former smoker Have you smoked in the past 12 months: No Aproximately how many cigarettes per day: 0 If you are a former smoker, when did you quit?: 2001 - Social History Usual Living Arrangement: Other ADL: Independent 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, , [address] of : [facility] History of Recent Travel: No Home Medications - Allergies Allergies/Adverse Reactions: Allergies Allergy/AdvReac Type Severity Reaction Status Date / Time ciprofloxacin HCl Allergy Intermediate Itching Verified 05/26/17 08:49 [From Cipro] levofloxacin [From Levaquin] Allergy Intermediate Rash Verified 05/26/17 08:49 atorvastatin calcium Allergy Mild muscle Verified 05/26/17 08:49 [From Lipitor] aches - Home Medications Home Medications: Ambulatory Orders Sertraline HCl [Zoloft -] 25 mg PO DAILY 08/28/14 Alprazolam [Xanax] 0.5 mg PO Q8H PRN #0 tablet 09/10/14 Pantoprazole Sodium [Protonix -] 40 mg PO DAILY #0 tablet.ec 09/10/14 Morphine Sulfate 15 mg PO QID PRN 03/31/16 Allopurinol [Zyloprim -] 150 mg PO DAILY #60 tablet 04/07/16 Albuterol Sulfate Inhaler - [Ventolin HFA Inhaler -] 1 - 2 inh PO PRN 08/09/16 Calcium Carbonate 648 mg PO BID 08/09/16 Amlodipine Besylate [Norvasc -] 5 mg PO DAILY #0 tablet 10/29/16 Docusate Sodium [Colace -] 100 mg PO BID #60 tab-cap 10/29/16 Morphine *Sr* [MS Contin -] 60 mg PO TID #120 tab.sa MDD 180mg 12/28/16 Sitagliptin Phosphate [Januvia] 50 mg PO DAILY 03/18/17 Glipizide Xl [Glucotrol Xl -] 10 mg PO BIDAC tab.er.24 05/23/17 Acetaminophen [Tylenol .Regular Strength -] 650 mg PO PRN 05/26/17 predniSONE [Deltasone -] 40 mg PO DAILY #60 tablet 06/20/17 Ascorbic Acid [Vitamin C] 1,000 mg PO DAILY 08/17/17 Ferrous Sulfate 325 mg PO DAILY 08/17/17 Furosemide [Lasix] 40 mg PO DAILY 08/17/17 Family Disease History - Family Disease History Family Disease History: Heart Disease: Mother ( age 68), CA: Father ( thrombocytopenia,lung cancer 60), Other: Father, Daughter (hypothyroidism) Review of Systems - Review of Systems Constitutional: reports: No Symptoms Eyes: reports: No Symptoms HENT: reports: No Symptoms Neck: reports: Pain on Movement, Stiffness Cardiovascular: reports: Shortness of Breath Respiratory: reports: Exercise Intolerance, SOB on Exertion Gastrointestinal: reports: Abdominal Pain (LUQ), Constipation Genitourinary: reports: Hematuria Musculoskeletal: reports: Back Pain, Joint Pain (right hip) Neurological: reports: No Symptoms Endocrine: reports: Increased Thirst Psychiatric: reports: Anxiety Physical Exam-GI Vital Signs: Vital Signs Temperature 98.6 F 08/18/17 06:28 Pulse Rate 63 08/18/17 06:28 Respiratory Rate 20 08/18/17 06:28 Blood Pressure 143/77 08/18/17 06:28 O2 Sat by Pulse Oximetry (%) 93 L 08/17/17 21:00 CBC,CMP WBC 8.9 K/mm3 (4.0-10.0) 08/18/17 05:30 RBC 3.90 M/mm3 (3.60-5.2) 08/18/17 05:30 Hgb 8.6 GM/dL (10.7-15.3) L 08/18/17 05:30 Hct 29.4 % (32.4-45.2) L 08/18/17 05:30 MCV 75.4 fl (80-96) L 08/18/17 05:30 MCH 22.1 pg (25.7-33.7) L 08/18/17 05:30 MCHC 29.3 g/dl (32.0-36.0) L 08/18/17 05:30 RDW 20.6 % (11.6-15.6) H 08/18/17 05:30 Plt Count 19 K/MM3 (134-434) L* D 08/18/17 05:30 MPV 6.4 fl (7.5-11.1) L D 08/18/17 05:30 Neutrophils % 92.4 % (42.8-82.8) H D 08/18/17 05:30 Lymphocytes % 4.3 % (8-40) L D 08/18/17 05:30 Monocytes % 2.4 % (3.8-10.2) L D 08/18/17 05:30 Eosinophils % 0.2 % (0-4.5) D 08/18/17 05:30 Basophils % 0.7 % (0-2.0) 08/18/17 05:30 Platelet Estimate Decreased 08/17/17 13:58 Platelet Comment No clumping noted 08/17/17 13:58 Sodium 133 mmol/L (136-145) L 08/18/17 05:30 Potassium 3.7 mmol/L (3.5-5.1) 08/18/17 05:30 Chloride 92 mmol/L (98-107) L 08/18/17 05:30 Carbon Dioxide 35 mmol/L (21-32) H 08/18/17 05:30 Anion Gap 6 (8-16) L 08/18/17 05:30 BUN 13 mg/dL (7-18) 08/18/17 05:30 Creatinine 1.2 mg/dL (0.55-1.02) H 08/18/17 05:30 Creat Clearance w eGFR 44.95 (>60) 08/18/17 05:30 POC Glucometer 277 UNITS (80-120) 08/18/17 12:33 Random Glucose 187 mg/dL (74-106) H 08/18/17 05:30 Calcium 8.0 mg/dL (8.5-10.1) L 08/18/17 05:30 Phosphorus 3.3 mg/dL (2.5-4.9) 08/18/17 05:30 Magnesium 2.3 mg/dL (1.8-2.4) 08/18/17 05:30 Ferritin 21.873 ng/ml (6.9-282.5) 08/18/17 05:30 Total Bilirubin 0.4 mg/dL (0.2-1.0) D 08/18/17 05:30 AST 17 U/L (15-37) 08/18/17 05:30 ALT 7 U/L (12-78) L 08/18/17 05:30 Alkaline Phosphatase 83 U/L (45-117) 08/18/17 05:30 LD Total 224 U/L (84-246) 08/18/17 05:30 Total Protein 8.2 g/dl (6.4-8.2) 08/18/17 05:30 Albumin 3.3 g/dl (3.4-5.0) L 08/18/17 05:30 TSH 0.76 uIU/ml (0.358-3.74) 08/18/17 05:30 Free T4 1.30 ng/dl (0.76-1.46) 08/18/17 05:30 Current Medications Generic Name Dose Route Start Last Admin Trade Name Freq PRN Reason Stop Dose Admin Acetaminophen 650 mg 08/18/17 10:00 08/18/17 10:37 Tylenol - PO 08/22/17 10:01 650 mg DAILY PRASHANT Administration Albuterol Sulfate 2 puff 08/17/17 15:49 Ventolin Hfa Inhaler - IH Q4H PRN ASTHMA Allopurinol 150 mg 08/18/17 10:00 08/18/17 10:36 Zyloprim - PO 150 mg DAILY PRASHANT Administration Alprazolam 0.25 mg 08/18/17 10:57 Xanax - PO Q8H PRN ANXIETY Amlodipine Besylate 5 mg 08/18/17 10:00 08/18/17 10:35 Norvasc - PO 5 mg DAILY PRASHANT Administration Ascorbic Acid 1,000 mg 08/18/17 10:00 08/18/17 11:52 Vitamin C - PO Not Given DAILY PRASHANT Calcium Carbonate 650 mg 08/17/17 22:00 08/18/17 10:36 Calcium Carbonate - PO 650 mg BID PRASHANT Administration Dexamethasone Sodium Phosphate 20 mg 08/18/17 10:00 08/18/17 11:45 Decadron Injection - IVPB 08/22/17 10:01 20 mg DAILY PRASHANT Administration Diphenhydramine HCl 25 mg 08/18/17 10:00 08/18/17 10:37 Benadryl Injection - IVPB 08/22/17 10:01 25 mg DAILY PRASHANT Administration Docusate Sodium 100 mg 08/17/17 22:00 08/18/17 10:36 Colace - PO 100 mg BID PRASHANT Administration Ferrous Sulfate 325 mg 08/18/17 10:00 08/18/17 10:35 Feosol - PO 325 mg DAILY PRASHANT Administration Glipizide 10 mg 08/17/17 16:30 08/18/17 06:43 Glucotrol Xl - PO 10 mg BIDAC PRASHANT Administration Immune Globulin 400 mls @ 100 mls/hr 08/18/17 10:00 08/18/17 12:41 Gamunex-C IVPB 08/22/17 13:59 100 mls/hr DAILY PRASHANT Administration Sodium Chloride 1,000 mls @ 42 mls/hr 08/18/17 16:15 Normal Saline - IV ASDIR PRASHANT Morphine Sulfate 60 mg 08/17/17 14:00 08/18/17 14:08 Ms Contin - PO 60 mg TID PRASHANT Administration Morphine Sulfate 15 mg 08/17/17 14:43 08/18/17 03:35 Msir - PO 15 mg Q6H PRN Administration PAIN LEVEL 6-10 Non-Formulary Medication 1,000 mg 08/18/17 10:00 08/18/17 10:37 Ascorbic Acid [Vitamin C] PO 1,000 mg DAILY PRASHANT Administration Pantoprazole Sodium 40 mg 08/18/17 10:00 08/18/17 10:35 Protonix - PO 40 mg DAILY PRASHANT Administration Sertraline HCl 25 mg 08/18/17 10:00 08/18/17 10:35 Zoloft - PO 25 mg DAILY PRASHANT Administration Sitagliptin Phosphate 50 mg 08/18/17 07:00 08/18/17 06:43 Januvia - PO Not Given ACBK PRASHANT Constitutional: Yes: Well Nourished Eyes: Yes: Conjunctiva Clear HENT: Yes: Atraumatic Neck: Yes: Supple Cardiovascular: Yes: Regular Rate and Rhythm Respiratory: Yes: CTA Bilaterally, Other (left thoracotomy incision) Gastrointestinal Inspection: Yes: Hernia (left lateral subcostal nontender hernia nontender small umbilical), Scars (healed laparoscopic incisions) ...Auscultate: Yes: Normoactive Bowel Sounds ...Palpate: Yes: Soft, Other (nontender) ...Rectal Exam: Yes: Guaiac Positive (brown trace guaiac positive stool) Edema: LLE: 2+, RLE: 2+ Neurological: Yes: Alert, Oriented Labs: CBC, BMP 08/18/17 05:30 08/18/17 05:30 Imaging - Results Cat Scan: Report Reviewed (Niki Chowdhury Name: [facility] DEPARTMENT OF RADIOLOGY Phys: Roque Nice MD : 1950 Age: 66 Sex: F [facility] Acct: [id number] Loc: [address] Exam Date: 05/22/17 Status: [place] [address] Unit Number: [id number] EXAM#: TYPE/EXAM: RESULT: CT/ABDOMEN PELVIS CT WITH CONTR CT/CHEST CT WITH CONTRAST EXAM: CT chest, abdomen and pelvis with IV contrast. INDICATION: Worsening dyspnea. Worsening abdominal pain with hernia. TECHNIQUE: Contiguous axial CT images of the chest, abdomen and pelvis were obtained with oral contrast, following the intravenous administration of 95 mL of Omnipaque 350 contrast. Coronal and sagittal reconstructions obtained. COMPARISON: 10/24/2016 CT chest and 03/31/2016 CT abdomen/pelvis. FINDINGS: CHEST - The large airways of the central tracheobronchial tree are patent. There are mild centrilobular emphysematous changes. There is bronchial wall thickening in the segmental and subsegmental airways to several left lower lobe basal segments with subsegmental opacities, which may represent atelectasis and/or scarring. There is no pulmonary edema, pleural effusion or pneumothorax. There is a new subsolid opacity in the superior segment of the right lower lobe measuring approximately 1.2 cm (image 45 of series 5). The solid component of this opacity measures approximately 6 x 4 mm. There is an 8 mm solid noncalcified subpleural nodule in the right lung apex (image 21 of series 5) , unchanged in size from 10/24/2016. There are several round and enlarged pretracheal lymph nodes measuring up to 1.8 x 1.8 cm there are nonspecific subcentimeter prevascular space lymph nodes and rounded, enlarged aortopulmonary window lymph nodes. These appear similar to the 10/24/2016 CT. There is an enlarged right hilar lymph node measuring 2.1 x 1.4 cm, probably similar in size to the prior chest CT, however, comparison is difficult due to lack of contrast on 10/24/2016 CT. There are prominent left hilar lymph nodes, which are difficult to compare to the prior exam due to lack of contrast. There are bilateral enlarged axillary lymph nodes, which appear similar in size to 10/24/[address] There is enlargement of the right lobe of the thyroid gland containing punctate nodular calcification nodules in the right lobe measuring up to approximately 2.2 x 2.0 cm. The heart is not enlarged. There is no pericardial effusion. There is moderate coronary artery calcific atherosclerosis, within the LAD predominance. There is no pericardial effusion. There is calcification along the aortic valve. Normal caliber thoracic aorta with scattered calcific atherosclerosis including the great vessels off the aortic arch. The main pulmonary artery is borderline, measuring 30 mm in diameter. No evidence of acute fracture. There are chronic deformities of the left seventh and eighth ribs with deformity of the left pleura and elevation of the left hemidiaphragm is presumably the chronic sequela of prior traumatic injury. There are degenerative changes in the thoracic spine multilevel canal and neural foraminal stenosis. Partially visualized ACDF hardware and posterior instrumented fusion hardware in the cervical spine. ABDOMEN/PELVIS - The liver is normal in size and contour. There are subcentimeter hypoattenuating lesions scattered within the right and left hepatic lobes which are too small to characterize. Difficult to compare these nodules to the 03/31/2016 CT abdomen/pelvis due to lack of IV contrast. The spleen is absent with several small soft tissue nodules in the left upper quadrant, presumably splenules. The gallbladder is contracted with a prominent gallbladder wall which is possibly secondary to the contracted state common bile duct is dilated, measuring approximately 8 mm, similar to 2015 CT chest. There is no intrahepatic biliary ductal dilatation. The pancreas is unremarkable. There are enlarged peripancreatic lymph nodes measuring up to 1.7 x 0.9 cm, likely similar to the prior CT. There is no mass in the adrenal glands. Normal caliber abdominal aorta with moderately severe calcific atherosclerosis, including the ostia of the renal arteries, with possible hemodynamically significant stenosis. There are multiple prominent retroperitoneal lymph nodes, similar to the prior CT. The kidneys are normal in size with symmetric enhancement. There is a staghorn calculus in the right renal pelvis extending towards the lower pole major calyces, measuring up to 1.2 x 1.2 cm. There is mild distention of the right lower pole calyces. There is also a 7 mm nonobstructing calculus in a lower pole calyx of the left kidney. There is a staghorn type calculus in lower pole calyces of the left kidney measuring approximately 8 x 8 mm. There is a staghorn calculus in the left renal pelvis measuring approximately 2.0 x 1.3 cm with mild to moderate hydronephrosis. There are no ureteral calculi. Subcentimeter hypoattenuating lesions in the kidneys are too small to characterize. There is a small hiatal hernia. There are no dilated loops of large or small bowel to suggest obstruction. There is a large, left spigelian hernia containing mesenteric fat, small volume of layering fluid as well as loops of nonobstructed large and small bowel and small. The abdominal wall defect measures approximately 7.5 cm in transverse dimension and maximum transverse dimension of the hernia sac measures approximately 14.5 cm. There is also a small fat-containing umbilical hernia. There is diastases of the rectus abdominis muscle. There is prominent stool throughout the colon. Please correlate for constipation. There is no definite bowel wall thickening and no evidence of diverticulitis or colitis. The entire appendix is not definitively visualized, however, there are no secondary signs of acute appendicitis. There is no free intraperitoneal air. There are numerous enlarged mesenteric lymph nodes centered along the root of the mesentery with extensive surrounding fat stranding, which is new since 2015. There is no drainable collection within the abdomen or pelvis. The urinary bladder and uterus are unremarkable. There are bilateral prominent pelvic sidewall lymph nodes, similar in size to the prior exam. There is severe bone-on- bone osteoarthritis in the right hip with extensive osteophyte formation, subchondral cystic bone formation and remodeling of the femoral head. There is partial osseous fusion of the right femoral head and acetabulum. There are moderate osteoarthritic changes in the left hip. There are degenerative changes with multilevel canal and neural foraminal stenosis in the lower thoracic and lumbar spines. There is a nonspecific circumscribed lucency within the right half of the L4 vertebral body, unchanged in size from 03/31/2016 CT. IMPRESSION: 1. Numerous enlarged mesenteric lymph nodes with extensive surrounding fat stranding unchanged described above, new since 03/31/2016 CT abdomen/pelvis, nonspecific but may be attributed to acute exacerbation of chronic lymphoproliferative disorder, lymphoma or panniculitis/sclerosing mesenteritis. Please correlate clinically. A short-term interval follow-up CT is recommended for reevaluation. 2. Additional multifocal lymphadenopathy in the chest, abdomen and pelvis as described above are of indeterminant etiology, but appear similar to the 10/24/2016 CT chest and 03/31/2016 CT abdomen / pelvis. Please correlate with clinical history. 3. A new right lower lobe subsolid nodule measuring 1.2 cm with solid components measuring approximately 6 mm is since 10/24/2016 and may be infectious/inflammatory. A follow-up chest CT is recommended in 3 months. 8 mm solid nodule in the right lung apex is unchanged in size. 4. Large left spigelian hernia containing small volume of fluid, loops of nonobstructed large bowel and small bowel with no evidence of strangulation or bowel obstruction. 5. Bilateral renal staghorn calculi with mild to moderate left hydronephrosis and distention of local right renal calyces as described above. 6. Moderate coronary artery calcific atherosclerosis. Borderline main pulmonary artery. Please correlate clinically for mild pulmonary artery hypertension. 7. Enlarged right lobe of the thyroid gland with nodules measuring up to 2.2 cm may be on the basis of multinodular goiter. Please correlate clinically with thyroid function tests, outpatient sonogram and/or FNA. 8. Severe [id number] osteoarthritis of the right hip with partial osseous fusion, as described above. Reported By: Vinh Conti DO 05/22/17 1659 Technologist: Kaveh Dunbar Transcribed Date/Time: 05/22/171658 Territory Sales Representative: Vinh Conti DO Printed Date/Time: By: Signed by: Vinh Conti Signed on: 17:00) Problem List - Problems (1) Microcytic anemia Assessment/Plan: Given her microcytic iron deficiency anemia and occult bleeding I have advised Luzma to undergo both an EGD and a colonoscopy to exclude a GI neoplasm, AVMs , ulcers, GERD and other etiologies. I have discussed the potential risks of perforation and hemorrhage with her and answered all of her questions after which she has declined to proceed with these evaluations. Her PPI should be continued empirically. If she changes her mind and her platelet count rises to an adequate threshold please contact us to schedule these cases. Code(s): D50.9 - IRON DEFICIENCY ANEMIA, UNSPECIFIED (2) Constipation Assessment/Plan: Will start Miralax given her usage of iron and narcotics and minimal ambulation Code(s): K59.00 - CONSTIPATION, UNSPECIFIED Qualifiers: Constipation type: unspecified constipation type Qualified Code(s): K59.00 - Constipation, unspecified (3) Abdominal wall hernia Code(s): K43.9 - VENTRAL HERNIA WITHOUT OBSTRUCTION OR GANGRENE (4) Occult blood positive stool Code(s): R19.5 - OTHER FECAL ABNORMALITIES
[2017-08-18] MEDS: ALPRAZolam 0.25 MG TABLET PO PRN (20:51)
[2017-08-18] MEDS: INSULIN SLIDING SCALE (NOVOLOG) 1 VIAL SQ SCH (22:39)
[2017-08-19] MEDS: morphine SO4 SUSTAINED ACTING 30 MG TABLET.SA PO SCH ×3 (06:54→21:01)
[2017-08-19] MEDS: glipiZIDE-XL 10 MG TAB.ER.24 (FP) PO SCH ×2 (06:54→17:19)
[2017-08-19] MEDS: sitaGLIPtin PHOSPHATE 50 MG TABLET PO SCH (06:54)
[2017-08-19] MEDS: INSULIN SLIDING SCALE (NOVOLOG) 1 VIAL SQ SCH ×4 (06:55→21:02)
[2017-08-19 08:06] LABS: SERUM IRON SATURATION 3 % (15-55); TOTAL IRON BINDING CAPACITY 413 ug/dL (250-450); UIBC 402 ug/dL (118-369)
[2017-08-19 08:17] LABS: CHLORIDE 95 mmol/L (98-107); CHLORIDE 96 mmol/L (98-107); POTASSIUM 3.5 mmol/L (3.5-5.1); POTASSIUM 3.6 mmol/L (3.5-5.1); SODIUM 135 mmol/L (136-145)
[2017-08-19 08:23] LABS: BASO % 0.3 % (0-2.0); HEMATOCRIT 25.9 % (32.4-45.2); HEMOGLOBIN 7.6 GM/dL (10.7-15.3); LYMPH % 6.9 % (8-40); MCH 21.9 pg (25.7-33.7); MCHC 29.3 g/dl (32.0-36.0); MEAN CELL VOLUME 74.7 fl (80-96); MEAN PLT VOLUME 10.6 fl (7.5-11.1); MONO % 7.3 % (3.8-10.2); NEUT % 85.5 % (42.8-82.8); RBC 3.46 M/mm3 (3.60-5.2); RDW 20.2 % (11.6-15.6); WHITE BLOOD COUNT 6.4 K/mm3 (4.0-10.0)
[2017-08-19 08:25] LABS: ANION GAP 7 (8-16); BLOOD UREA NITROGEN 21 mg/dL (7-18); CO2 32 mmol/L (21-32); CREATININE 1.2 mg/dL (0.55-1.02); GLUCOSE,RANDOM 214 mg/dL (74-106); MAGNESIUM 2.3 mg/dL (1.8-2.4); PHOSPHOROUS 2.7 mg/dL (2.5-4.9)
[2017-08-19 08:30] LABS: ALBUMIN 2.9 g/dl (3.4-5.0); ALK PHOS 61 U/L (45-117); ANION GAP 8 (8-16); BILIRUBIN,TOTAL 0.7 mg/dL (0.2-1.0); BLOOD UREA NITROGEN 22 mg/dL (7-18); CO2 32 mmol/L (21-32); CREATININE 1.3 mg/dL (0.55-1.02); GLUCOSE,RANDOM 217 mg/dL (74-106); SGOT/AST 15 U/L (15-37); SGPT/ALT 7 U/L (12-78); TOT PROT 8.1 g/dl (6.4-8.2)
--- NOTE | 2017-08-19 10:32 | PN ---
Progress Note (short form) - Note Progress Note: Breathing feels better today. Less SOB. No acute events overnight. Minimal dry cough. No hemoptysis. Intake & Output 08/16/17 08/17/17 08/18/17 08/19/17 23:59 23:59 23:59 23:59 Intake Total 300 1532 612 Balance 300 1532 612 Weight 249 lb Last Vital Signs Temp Pulse Resp BP Pulse Ox 98.2 F 85 20 124/64 94 L 08/19/17 06:13 08/19/17 06:13 08/19/17 06:13 08/19/17 06:13 08/18/17 21:00 Active Medications Acetaminophen (Tylenol -) 650 mg PO DAILY [facility] Stop: 08/22/17 10:01 Last Admin: 08/18/17 10:37 Dose: 650 mg Albuterol Sulfate (Ventolin Hfa Inhaler -) 2 puff IH Q4H PRN PRN Reason: ASTHMA Allopurinol (Zyloprim -) 150 mg PO DAILY [facility] Last Admin: 08/18/17 10:36 Dose: 150 mg Alprazolam (Xanax -) 0.25 mg PO Q8H PRN PRN Reason: ANXIETY Last Admin: 08/18/17 20:51 Dose: 0.25 mg Amlodipine Besylate (Norvasc -) 5 mg PO DAILY [facility] Last Admin: 08/18/17 10:35 Dose: 5 mg Ascorbic Acid (Vitamin C -) 1,000 mg PO DAILY [facility] Last Admin: 08/18/17 11:52 Dose: Not Given Calcium Carbonate (Calcium Carbonate -) 650 mg PO BID [facility] Last Admin: 08/18/17 22:38 Dose: 650 mg Dexamethasone Sodium Phosphate (Decadron Injection -) 20 mg IVPB DAILY [facility] Stop: 08/22/17 10:01 Last Admin: 08/18/17 11:45 Dose: 20 mg Diphenhydramine HCl (Benadryl Injection -) 25 mg IVPB DAILY [facility] Stop: 08/22/17 10:01 Last Admin: 08/18/17 10:37 Dose: 25 mg Docusate Sodium (Colace -) 100 mg PO BID [facility] Last Admin: 08/18/17 22:38 Dose: 100 mg Ferrous Sulfate (Feosol -) 325 mg PO DAILY [facility] Last Admin: 08/18/17 10:35 Dose: 325 mg Glipizide (Glucotrol Xl -) 10 mg PO BIDAC [facility] Last Admin: 08/19/17 06:54 Dose: 10 mg Immune Globulin (Gamunex-C) 400 mls @ 100 mls/hr IVPB DAILY [facility] Stop: 08/22/17 13:59 Last Admin: 08/18/17 12:41 Dose: 100 mls/hr Sodium Chloride (Normal Saline -) 1,000 mls @ 42 mls/hr IV ASDIR [facility] Last Admin: 08/18/17 19:24 Dose: 42 mls/hr Insulin Aspart (Novolog Vial Sliding Scale -) 1 vial SQ ACHS [facility] PRN Reason: Protocol Last Admin: 08/19/17 06:55 Dose: 2 units Morphine Sulfate (Ms Contin -) 60 mg PO TID [facility] Last Admin: 08/19/17 06:54 Dose: 60 mg Morphine Sulfate (Msir -) 15 mg PO Q6H PRN PRN Reason: PAIN LEVEL 6-10 Last Admin: 08/18/17 03:35 Dose: 15 mg Non-Formulary Medication (Ascorbic Acid [Vitamin C]) 1,000 mg PO DAILY [facility] Last Admin: 08/18/17 10:37 Dose: 1,000 mg Pantoprazole Sodium (Protonix -) 40 mg PO DAILY [facility] Last Admin: 08/18/17 10:35 Dose: 40 mg Sertraline HCl (Zoloft -) 25 mg PO DAILY [facility] Last Admin: 08/18/17 10:35 Dose: 25 mg Sitagliptin Phosphate (Januvia -) 50 mg PO ACBK [facility] Last Admin: 08/19/17 06:54 Dose: 50 mg Constitutional: Yes: NAD Eyes: Yes: EOM Intact HENT: Yes: Normocephalic Neck: Yes: Trachea Midline Cardiovascular: Yes: S1, S2 Respiratory: Yes: Diminished at the bases Gastrointestinal: Yes: Soft, Abdomen, Obese Edema: LLE: 1+, RLE: 1+ Neurological: Yes: Alert Labs: Laboratory Results - last 24 hr 08/18/17 08/18/17 08/18/17 05:30 06:42 12:33 WBC RBC Hgb Hct MCV MCH MCHC RDW Plt Count MPV Neutrophils % Lymphocytes % Monocytes % Eosinophils % Basophils % Sodium Potassium Chloride Carbon Dioxide Anion Gap BUN Creatinine Creat Clearance w eGFR POC Glucometer 216 277 Random Glucose Calcium Phosphorus Magnesium Iron 11 L TIBC 413 Iron Saturation 3 L Total Bilirubin AST ALT Alkaline Phosphatase B-Natriuretic Peptide Total Protein Albumin 08/18/17 08/18/17 08/19/17 17:45 22:37 06:18 WBC 6.4 RBC 3.46 L Hgb 7.6 L D Hct 25.9 L MCV 74.7 L MCH 21.9 L MCHC 29.3 L RDW 20.2 H Plt Count 17 L* MPV 10.6 D Neutrophils % 85.5 H Lymphocytes % 6.9 L D Monocytes % 7.3 D Eosinophils % 0.0 D Basophils % 0.3 Sodium Potassium Chloride Carbon Dioxide Anion Gap BUN Creatinine Creat Clearance w eGFR POC Glucometer 247 207 Random Glucose Calcium Phosphorus Magnesium Iron TIBC Iron Saturation Total Bilirubin AST ALT Alkaline Phosphatase B-Natriuretic Peptide Total Protein Albumin 08/19/17 08/19/17 08/19/17 06:18 06:18 06:52 WBC RBC Hgb Hct MCV MCH MCHC RDW Plt Count MPV Neutrophils % Lymphocytes % Monocytes % Eosinophils % Basophils % Sodium 135 L 135 L Potassium 3.6 3.5 Chloride 96 L 95 L Carbon Dioxide 32 32 Anion Gap 7 L 8 BUN 21 H 22 H Creatinine 1.2 H 1.3 H Creat Clearance w eGFR 40.98 POC Glucometer 232 Random Glucose 214 H 217 H Calcium 8.0 L 8.0 L Phosphorus 2.7 Magnesium 2.3 Iron TIBC Iron Saturation Total Bilirubin 0.7 D AST 15 ALT 7 L Alkaline Phosphatase 61 B-Natriuretic Peptide 2685.50 H Total Protein 8.1 Albumin 2.9 L Problem List - Problems (1) Abdominal pain Code(s): R10.9 - UNSPECIFIED ABDOMINAL PAIN (2) Acute ITP Code(s): D69.3 - IMMUNE THROMBOCYTOPENIC PURPURA (3) Anemia Code(s): D64.9 - ANEMIA, UNSPECIFIED (4) CKD stage 3 secondary to diabetes Code(s): E11.22 - TYPE 2 DIABETES MELLITUS W DIABETIC CHRONIC KIDNEY DISEASE; N18.3 - CHRONIC KIDNEY DISEASE, STAGE 3 (MODERATE) (5) DVT prophylaxis Code(s): [id number] - (6) Diabetes mellitus Code(s): E11.9 - TYPE 2 DIABETES MELLITUS WITHOUT COMPLICATIONS (7) Diaphragmatic hernia Code(s): K44.9 - DIAPHRAGMATIC HERNIA WITHOUT OBSTRUCTION OR GANGRENE Qualifiers: Obstruction and gangrene presence: without obstruction or gangrene Qualified Code(s): K44.9 - Diaphragmatic hernia without obstruction or gangrene (8) HTN (hypertension) Code(s): I10 - ESSENTIAL (PRIMARY) HYPERTENSION Qualifiers: (9) Mantle cell lymphoma Code(s): C83.10 - MANTLE CELL LYMPHOMA, UNSPECIFIED SITE (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
[2017-08-19 11:03] LABS: PLATELET COUNT 17 K/MM3 (134-434)
--- NOTE | 2017-08-19 11:09 | PN ---
Progress Note, Physician Chief Complaint: feeling weak no active bleeding History of Present Illness: 66-year-old female, with H/O HTN, T2DM, Diabetic Nephropathy CKD stage 3 base line GFR 35-40, Mantel Cell Lymphoma not on treatment, ITP s/p Spleenectomy multiple relapse admitted with SOB with thrombocytopenia and anemia on 08/17/2017 - Current Medication List Current Medications: Active Medications Acetaminophen (Tylenol -) 650 mg PO DAILY [facility] Stop: 08/22/17 10:01 Last Admin: 08/18/17 10:37 Dose: 650 mg Albuterol Sulfate (Ventolin Hfa Inhaler -) 2 puff IH Q4H PRN PRN Reason: ASTHMA Allopurinol (Zyloprim -) 150 mg PO DAILY [facility] Last Admin: 08/18/17 10:36 Dose: 150 mg Alprazolam (Xanax -) 0.25 mg PO Q8H PRN PRN Reason: ANXIETY Last Admin: 08/18/17 20:51 Dose: 0.25 mg Amlodipine Besylate (Norvasc -) 5 mg PO DAILY [facility] Last Admin: 08/18/17 10:35 Dose: 5 mg Ascorbic Acid (Vitamin C -) 1,000 mg PO DAILY [facility] Last Admin: 08/18/17 11:52 Dose: Not Given Calcium Carbonate (Calcium Carbonate -) 650 mg PO BID [facility] Last Admin: 08/18/17 22:38 Dose: 650 mg Dexamethasone Sodium Phosphate (Decadron Injection -) 20 mg IVPB DAILY [facility] Stop: 08/22/17 10:01 Last Admin: 08/18/17 11:45 Dose: 20 mg Diphenhydramine HCl (Benadryl Injection -) 25 mg IVPB DAILY [facility] Stop: 08/22/17 10:01 Last Admin: 08/18/17 10:37 Dose: 25 mg Docusate Sodium (Colace -) 100 mg PO BID [facility] Last Admin: 08/18/17 22:38 Dose: 100 mg Ferrous Sulfate (Feosol -) 325 mg PO DAILY [facility] Last Admin: 08/18/17 10:35 Dose: 325 mg Glipizide ([facility]l -) [facility] Last Admin: 08/19/17 06:54 Dose: 10 mg Immune Globulin (Gamunex-C) 400 mls @ 100 mls/hr IVPB DAILY [facility] Stop: 08/22/17 13:59 Last Admin: 08/18/17 12:41 Dose: 100 mls/hr Sodium Chloride (Normal Saline -) 1,000 mls @ 42 mls/hr IV ASDIR [facility] Last Admin: 08/18/17 19:24 Dose: 42 mls/hr Insulin Aspart (Novolog Vial Sliding Scale -) 1 vial SQ ACHS [facility] PRN Reason: Protocol Last Admin: 08/19/17 06:55 Dose: 2 units Morphine Sulfate (Ms Contin -) 60 mg PO TID [facility] Last Admin: 08/19/17 06:54 Dose: 60 mg Morphine Sulfate (Msir -) 15 mg PO Q6H PRN PRN Reason: PAIN LEVEL 6-10 Last Admin: 08/18/17 03:35 Dose: 15 mg Non-Formulary Medication (Ascorbic Acid [Vitamin C]) 1,000 mg PO DAILY [facility] Last Admin: 08/18/17 10:37 Dose: 1,000 mg Pantoprazole Sodium (Protonix -) 40 mg PO DAILY [facility] Last Admin: 08/18/17 10:35 Dose: 40 mg Sertraline HCl (Zoloft -) 25 mg PO DAILY [facility] Last Admin: 08/18/17 10:35 Dose: 25 mg Sitagliptin Phosphate (Januvia -) 50 mg PO ACBK [facility] Last Admin: 08/19/17 06:54 Dose: 50 mg - Objective Vital Signs: Vital Signs Temperature 98.2 F 08/19/17 06:13 Pulse Rate 85 08/19/17 06:13 Respiratory Rate 20 08/19/17 06:13 Blood Pressure 124/64 08/19/17 06:13 O2 Sat by Pulse Oximetry (%) 94 L 08/18/17 21:00 GENERAL: Awake, alert, and fully oriented, in no acute distress HEEENT: No signs of trauma, PERRLA, EOMI, sclera anicteric, conjunctiva clear Auricles normal inspection, hearing grossly normal, oropharynx clear without exudates. Moist mucosa NECK: Normal ROM, supple, no lymphadenopathy, JVD, or masses CHEST and LUNGS: Non Tender , Breath sounds equal, clear to auscultation bilaterally. CVS: Regular rate and rhythm, normal S1 and S2, no murmurs, rubs or gallops ABDOMEN: Soft, nontender, normoactive bowel sounds. No guarding, no rebound. No masses EXTREMITIES and Back: Normal range of motion, no edema. No clubbing or cyanosis. No cords, erythema, or tenderness NEUROLOGICAL: Cranial nerves II through XII grossly intact. Normal speech, normal gait SKIN: Warm, Dry, no rashes or lesions noted. Labs: CBC, BMP 08/19/17 06:18 08/19/17 06:18 Problem List - Problems (1) Thrombocytopenia Assessment/Plan: Known case of ITP admitted with thrombocytopenia, platelet count is improving on current therapy. Code(s): D69.6 - THROMBOCYTOPENIA, UNSPECIFIED (2) CKD stage 3 secondary to diabetes Assessment/Plan: Admitted with worsening renal functions, now improving Code(s): E11.22 - TYPE 2 DIABETES MELLITUS W DIABETIC CHRONIC KIDNEY DISEASE; N18.3 - CHRONIC KIDNEY DISEASE, STAGE 3 (MODERATE) (3) Anemia Assessment/Plan: Chronic present with worsening H/H stable since yesterday Code(s): D64.9 - ANEMIA, UNSPECIFIED Qualifiers: Anemia type: iron deficiency Iron deficiency anemia type: chronic blood loss (4) HTN (hypertension) Assessment/Plan: Well controlled on current therapy Code(s): I10 - ESSENTIAL (PRIMARY) HYPERTENSION Qualifiers: Hypertension type: essential hypertension Qualified Code(s): I10 - Essential (primary) hypertension (5) Mantle cell lymphoma Assessment/Plan: In remission Code(s): C83.10 - MANTLE CELL LYMPHOMA, UNSPECIFIED SITE (6) T2DM (type 2 diabetes mellitus) Assessment/Plan: optimize glycemic control on steroids Code(s): E11.9 - TYPE 2 DIABETES MELLITUS WITHOUT COMPLICATIONS Qualifiers: Diabetes mellitus manager intermediate insulin use: without longterm use Diabetes mellitus complication status: without complication Qualified Code(s): E11.9 - Type 2 diabetes mellitus without complications (7) SOB (shortness of breath) Assessment/Plan: Due to Volume over load and anemia , now improving Code(s): R06.02 - SHORTNESS OF BREATH
--- NOTE | 2017-08-19 12:11 | PN ---
Progress Note (short form) - Note Progress Note: Seen in follow up. No new complaints. Ongoing bilateral LE swelling. Meds reviewed. Current Medications Generic Name Dose Route Start Last Admin Trade Name Freq PRN Reason Stop Dose Admin Acetaminophen 650 mg 08/18/17 10:00 08/18/17 10:37 Tylenol - PO 08/22/17 10:01 650 mg DAILY [facility] Administration Albuterol Sulfate 2 puff 08/17/17 15:49 Ventolin Hfa Inhaler - IH Q4H PRN ASTHMA Allopurinol 150 mg 08/18/17 10:00 08/18/17 10:36 Zyloprim - PO 150 mg DAILY [facility] Administration Alprazolam 0.25 mg 08/18/17 10:57 08/18/17 20:51 Xanax - PO 0.25 mg Q8H PRN Administration ANXIETY Amlodipine Besylate 5 mg 08/18/17 10:00 08/18/17 10:35 Norvasc - PO 5 mg DAILY [facility] Administration Ascorbic Acid 1,000 mg 08/18/17 10:00 08/18/17 11:52 Vitamin C - PO Not Given DAILY [facility] Calcium Carbonate 650 mg 08/17/17 22:00 08/18/17 22:38 Calcium Carbonate - PO 650 mg BID [facility] Administration Dexamethasone Sodium Phosphate 20 mg 08/18/17 10:00 08/18/17 11:45 Decadron Injection - IVPB 08/22/17 10:01 20 mg DAILY [facility] Administration Diphenhydramine HCl 25 mg 08/18/17 10:00 08/18/17 10:37 Benadryl Injection - IVPB 08/22/17 10:01 25 mg DAILY [facility] Administration Docusate Sodium 100 mg 08/17/17 22:00 08/18/17 22:38 Colace - PO 100 mg BID [facility] Administration Ferrous Sulfate 325 mg 08/18/17 10:00 08/18/17 10:35 Feosol - PO 325 mg DAILY [facility] Administration Glipizide 10 mg 08/17/17 16:30 08/19/17 06:54 Glucotrol Xl - PO 10 mg BIDAC [facility] Administration Immune Globulin 400 mls @ 100 mls/hr 08/18/17 10:00 08/18/17 12:41 Gamunex-C IVPB 08/22/17 13:59 100 mls/hr DAILY [facility] Administration Sodium Chloride 1,000 mls @ 42 mls/hr 08/18/17 16:15 08/18/17 19:24 Normal Saline - IV 42 mls/hr ASDIR [facility] Administration Insulin Aspart 1 vial 08/18/17 22:00 08/19/17 06:55 Novolog Vial Sliding Scale - SQ 2 units ACHS [facility] Administration Protocol Morphine Sulfate 60 mg 08/17/17 14:00 08/19/17 06:54 Ms Contin - PO 60 mg TID [facility] Administration Morphine Sulfate 15 mg 08/17/17 14:43 08/18/17 03:35 Msir - PO 15 mg Q6H PRN Administration PAIN LEVEL 6-10 Non-Formulary Medication 1,000 mg 08/18/17 10:00 08/18/17 10:37 Ascorbic Acid [Vitamin C] PO 1,000 mg DAILY [facility] Administration Pantoprazole Sodium 40 mg 08/18/17 10:00 08/18/17 10:35 Protonix - PO 40 mg DAILY [facility] Administration Sertraline HCl 25 mg 08/18/17 10:00 08/18/17 10:35 Zoloft - PO 25 mg DAILY [facility] Administration Sitagliptin Phosphate 50 mg 08/18/17 07:00 08/19/17 06:54 Januvia - PO 50 mg ACBK [facility] Administration On exam: Last Vital Signs Temp Pulse Resp BP Pulse Ox 98 F 117 H 18 99/61 98 08/19/17 09:08 08/19/17 09:08 08/19/17 09:08 08/19/17 09:08 08/18/17 21:00 General: Looks well, obese, supine in bed. Extremities: No pallor, no icterus. Bilateral pedal edema, mild. Chest: breathing comfortably, clear to auscultation CVS: S1, S2, no gallop or murmur. Abdomen: Soft, no organomegaly, no masses. Neuro: Alert, oriented, non-focal. Skin: Petechiae lower extremities. CBC, BMP 08/19/17 06:18 08/19/17 06:18 Assessment. ITP (previously considered possible secondary ITP, with background indolent mantle cell, but as per patient recent PEP negative, less likely), with exacerbation currently. Historically has always responded to steroids/IVIG. Some response seen, but somewhat concerned about no observed increment yesterday to today. Continue current treatment, observation. Gradually worsening microcytic anemia, attributable to iron deficiency. (No stainable iron seen on bone marrow biopsy April 2016) Ferritins progressively lower. Has never had GI workup - needs endoscopy. While admitted will replenish iron intravenously.
--- NOTE | 2017-08-19 12:24 | PN ---
Progress Note, Physician History of Present Illness: Stable dyspnea. - Current Medication List Current Medications: Active Medications Acetaminophen (Tylenol -) 650 mg PO DAILY [facility] Stop: 08/22/17 10:01 Last Admin: 08/18/17 10:37 Dose: 650 mg Albuterol Sulfate (Ventolin Hfa Inhaler -) 2 puff IH Q4H PRN PRN Reason: ASTHMA Allopurinol (Zyloprim -) 150 mg PO DAILY [facility] Last Admin: 08/18/17 10:36 Dose: 150 mg Alprazolam (Xanax -) 0.25 mg PO Q8H PRN PRN Reason: ANXIETY Last Admin: 08/18/17 20:51 Dose: 0.25 mg Amlodipine Besylate (Norvasc -) 5 mg PO DAILY [facility] Last Admin: 08/18/17 10:35 Dose: 5 mg Ascorbic Acid (Vitamin C -) 1,000 mg PO DAILY [facility] Last Admin: 08/18/17 11:52 Dose: Not Given Calcium Carbonate (Calcium Carbonate -) 650 mg PO BID [facility] Last Admin: 08/18/17 22:38 Dose: 650 mg Dexamethasone Sodium Phosphate (Decadron Injection -) 20 mg IVPB DAILY [facility] Stop: 08/22/17 10:01 Last Admin: 08/18/17 11:45 Dose: 20 mg Diphenhydramine HCl (Benadryl Injection -) 25 mg IVPB DAILY [facility] Stop: 08/22/17 10:01 Last Admin: 08/18/17 10:37 Dose: 25 mg Docusate Sodium (Colace -) 100 mg PO BID [facility] Last Admin: 08/18/17 22:38 Dose: 100 mg Ferrous Sulfate (Feosol -) 325 mg PO DAILY [facility] Last Admin: 08/18/17 10:35 Dose: 325 mg Glipizide (Glucotrol Xl -) 10 mg PO BIDAC [facility] Last Admin: 08/19/17 06:54 Dose: 10 mg Immune Globulin (Gamunex-C) 400 mls @ 100 mls/hr IVPB DAILY [facility] Stop: 08/22/17 13:59 Last Admin: 08/18/17 12:41 Dose: 100 mls/hr Sodium Chloride (Normal Saline -) 1,000 mls @ 42 mls/hr IV ASDIR [facility] Last Admin: 08/18/17 19:24 Dose: 42 mls/hr Insulin Aspart (Novolog Vial Sliding Scale -) 1 vial SQ ACHS [facility] PRN Reason: Protocol Last Admin: 08/19/17 06:55 Dose: 2 units Morphine Sulfate (Ms Contin -) 60 mg PO TID [facility] Last Admin: 08/19/17 06:54 Dose: 60 mg Morphine Sulfate (Msir -) 15 mg PO Q6H PRN PRN Reason: PAIN LEVEL 6-10 Last Admin: 08/18/17 03:35 Dose: 15 mg Non-Formulary Medication (Ascorbic Acid [Vitamin C]) 1,000 mg PO DAILY [facility] Last Admin: 08/18/17 10:37 Dose: 1,000 mg Pantoprazole Sodium (Protonix -) 40 mg PO DAILY [facility] Last Admin: 08/18/17 10:35 Dose: 40 mg Sertraline HCl (Zoloft -) 25 mg PO DAILY [facility] Last Admin: 08/18/17 10:35 Dose: 25 mg Sitagliptin Phosphate (Januvia -) 50 mg PO ACBK [facility] Last Admin: 08/19/17 06:54 Dose: 50 mg - Objective Vital Signs: Vital Signs Temperature 98.2 F 08/19/17 06:13 Pulse Rate 85 08/19/17 06:13 Respiratory Rate 20 08/19/17 06:13 Blood Pressure 124/64 08/19/17 06:13 O2 Sat by Pulse Oximetry (%) 94 L 08/18/17 21:00 Constitutional: Yes: No Distress, Calm Neck: Yes: Supple Cardiovascular: Yes: Regular Rate and Rhythm Respiratory: Yes: Regular, Diminished Gastrointestinal: Yes: Normal Bowel Sounds, Soft, Abdomen, Obese Edema: Yes Edema: LLE: 1+, RLE: 1+ Labs: CBC, BMP 08/19/17 06:18 08/19/17 06:18 Problem List - Problems (1) Acute ITP Code(s): D69.3 - IMMUNE THROMBOCYTOPENIC PURPURA (2) Anemia Code(s): D64.9 - ANEMIA, UNSPECIFIED Qualifiers: Qualified Code(s): D64.9 - Anemia, unspecified (3) CKD stage 3 secondary to diabetes Code(s): E11.22 - TYPE 2 DIABETES MELLITUS W DIABETIC CHRONIC KIDNEY DISEASE; N18.3 - CHRONIC KIDNEY DISEASE, STAGE 3 (MODERATE) (4) Diabetes mellitus Code(s): E11.9 - TYPE 2 DIABETES MELLITUS WITHOUT COMPLICATIONS (5) Diaphragmatic hernia Code(s): K44.9 - DIAPHRAGMATIC HERNIA WITHOUT OBSTRUCTION OR GANGRENE Qualifiers: Qualified Code(s): K44.9 - Diaphragmatic hernia without obstruction or gangrene (6) HTN (hypertension) Code(s): I10 - ESSENTIAL (PRIMARY) HYPERTENSION Qualifiers: Qualified Code(s): I10 - Essential (primary) hypertension (7) Mantle cell lymphoma Code(s): C83.10 - MANTLE CELL LYMPHOMA, UNSPECIFIED SITE Assessment/Plan 08/18/2017 Normal biventricular size and fxn, mild LAE, MR, TR 08/29/2014 Normal LV size and fxn without sig valve abnl 1. Recurrent ITP h/o splenectomy, antiphospholipids 2. Recurrent dyspnea on exertion after failure of left diaphragmatic hernia repair/mesh 3. HTN 4. NIDDM 5. History of Mantle Cell Lymphoma 6. CKD 3, staghorn calculi and hydronephrosis 7. Chronic interstitial lung disease PLAN: 1. Resume Lisinopril 10 qd once renal fxn stable, continue Norvasc 5 qd, resume Lasix once IVIG infusion completed 2. DVT and GI prophylaxis, BD as needed 3. Steroids and IVIG course with monitor Plt, usual transfusion parameters. 4. Consideration for re-op diaphragmatic hernia repair after recovery of plt counts 5. O2, BD as needed
[2017-08-19] MEDS: ALLOPURINOL 100 MG TABLET (FP) PO SCH (12:28)
[2017-08-19] MEDS: FERROUS SO4 325 MG TABLET (FP) PO SCH (12:29)
[2017-08-19] MEDS: DOCUSATE SODIUM 100 MG CAPSULE (FP) PO SCH ×2 (12:29→21:01)
[2017-08-19] MEDS: SERTRALINE HCL 25 MG TABLET (FP) PO SCH (12:29)
[2017-08-19] MEDS: PANTOPRAZOLE 40 MG TABLET (FP) PO SCH (12:29)
[2017-08-19] MEDS: amLODIPine BESYLATE 5 MG TABLET (FP) PO SCH (12:29)
[2017-08-19] MEDS: ASCORBIC ACID 1000 MG PO SCH (12:30)
[2017-08-19] MEDS: ACETAMINOPHEN 325 MG TABLET (FP) PO SCH (12:30)
[2017-08-19] MEDS: CALCIUM CARBONATE 650 MG TABLET PO SCH ×2 (12:31→21:01)
[2017-08-19] MEDS: ASCORBIC ACID 500 MG TABLET (FP) PO SCH (12:31)
[2017-08-19] MEDS: ALPRAZolam 0.25 MG TABLET PO PRN ×2 (12:36→20:27)
[2017-08-19] MEDS: morphine SULFATE IMMEDIATE RELEASE 30 MG TAB PO PRN ×2 (12:46→23:57)
[2017-08-19] MEDS: DEXAMETHASONE SOD PHOSPHATE 10 MG/1 ML VIAL IVPB SCH (13:49)
[2017-08-19] MEDS: IMMUNE GLOB,GAM CAPRYLATE(IGG) 40 GM IVPB SCH (14:27)
[2017-08-19] MEDS: IRON SUCROSE INJECTION 200 MG in SODIUM CHLORIDE 90 ML IVPB SCH (20:29)
--- NOTE | 2017-08-19 22:59 | CONSULT ---
Consult Consult Specialty:: Rheumatology - History of Present Illness History of Present Illness: 65 year old female, with a significant past medical history of ITP, mantle cell lymphoma, NIDDM, HTN, s/p splenectomy, Diaphragmatic hernia, cervical laminectomy x2, admitted with progressive shortness of breath and thrombocytopenia HPI. The patient hasd ITP since age 40. She was treated in the past with steroids, IVIg, and 2 years ago she had splenectomy. Surgery was complicated with diaphragm perforation and subsequent hernia to chest cavity. The splenic pathology was compatible with mantle cell lymphoma treated with Rituximab. Since the surgery the patient has and progressive shortness of breath. Recently she had been stable, on 08/07/17 platelets were 400,000 and on admission she had 8,000. I saw the patient in the hospital on 06/22/09. Laboratory at that time revealed creatinine of 1.02, ESR 85. C3 was 141 and C4 was decreased (14). Anti- Sm, anti-CUSTOMER SERVICES MANAGER and anti-DNAds were all negative. Rheumatoid factor was 485. The patient followed with me only once. As per Dr. Orellana the patient was also was diagnosed antiphospholipid syndrome, however there is no pertinent serology in the laboratory. At the present time the patient reports significant shortness of breath and she has a 1 year history of hair loss, dry eyes and dry mouth. Progressive pain in the right hip and denies other joint involvement. She denies skin rash, oral ulcers, Raynaud's phenomenon or fever. Laboratory work-up on this admission: platelets increased to 17, creatinine 1.3 , eGFR 40.98, Urinalysis with protein 2+, blood 3+ and LE 1+. ABG PO2 62.4%, saturation 89.6%. - History Source History Provided By: Patient, Medical Record - Past Medical History LEAD ESTHETICIAN: No: Alzheimer's, CVA Cardio/Vascular: Yes: HTN. No: AFIB Pulmonary: Yes: COPD, Other (elevated left hemidiaphragm) Gastrointestinal: Yes: Diverticulitis (osteoarthritis right hip). No: Ascites Hepatobiliary: No: Cirrhosis Renal/: Yes: Renal Calculi, UTI, Other (bladder dysfunction). No: Renal Failure ...: No Infectious Disease: No: AIDS Psych: Yes: Anxiety, Depression Musculoskeletal: Yes: Chronic low back pain, Osteoarthritis (right hip) Rheumatology: Yes: Other (degenerative spine disease) Endocrine: Yes: Diabetes Mellitus Additional Medical History: ITP, Mantle Cell Lymphoma - Past Surgical History Past Surgical History: Yes: Laminectomy (cervical laminectomy x2 (2001)), Splenectomy, Thoracotomy - Alcohol/Substance Use Hx Alcohol Use: No History of Substance Use: reports: None - Smoking History Smoking history: Former smoker Have you smoked in the past 12 months: No Aproximately how many cigarettes per day: 0 If you are a former smoker, when did you quit?: 2001 - Social History Usual Living Arrangement: Other ADL: Independent 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, , 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 History of Recent Travel: No Home Medications - Allergies Allergies/Adverse Reactions: Allergies Allergy/AdvReac Type Severity Reaction Status Date / Time ciprofloxacin HCl Allergy Intermediate Itching Verified 05/26/17 08:49 [From Cipro] levofloxacin [From Levaquin] Allergy Intermediate Rash Verified 05/26/17 08:49 atorvastatin calcium Allergy Mild muscle Verified 05/26/17 08:49 [From Lipitor] aches - Home Medications Home Medications: Ambulatory Orders Sertraline HCl [Zoloft -] 25 mg PO DAILY 08/28/14 Alprazolam [Xanax] 0.5 mg PO Q8H PRN #0 tablet 09/10/14 Pantoprazole Sodium [Protonix -] 40 mg PO DAILY #0 tablet.ec 09/10/14 Morphine Sulfate 15 mg PO QID PRN 03/31/16 Allopurinol [Zyloprim -] 150 mg PO DAILY #60 tablet 04/07/16 Albuterol Sulfate Inhaler - [Ventolin HFA Inhaler -] 1 - 2 inh PO PRN 08/09/16 Calcium Carbonate 648 mg PO BID 08/09/16 Amlodipine Besylate [Norvasc -] 5 mg PO DAILY #0 tablet 10/29/16 Docusate Sodium [Colace -] 100 mg PO BID #60 tab-cap 10/29/16 Morphine *Sr* [MS Contin -] 60 mg PO TID #120 tab.sa MDD 180mg 12/28/16 Sitagliptin Phosphate [Januvia] 50 mg PO DAILY 03/18/17 Glipizide Xl [Glucotrol Xl -] 10 mg PO BIDAC tab.er.24 05/23/17 Acetaminophen [Tylenol .Regular Strength -] 650 mg PO PRN 05/26/17 predniSONE [Deltasone -] 40 mg PO DAILY #60 tablet 06/20/17 Ascorbic Acid [Vitamin C] 1,000 mg PO DAILY 08/17/17 Ferrous Sulfate 325 mg PO DAILY 08/17/17 Furosemide [Lasix] 40 mg PO DAILY 08/17/17 Family Disease History - Family Disease History Family Disease History: Heart Disease: Mother, Other: Father (thrombocytopenia) , Daughter (hypothyroidism) Review of Systems - Review of Systems Constitutional: reports: Malaise Eyes: reports: No Symptoms HENT: reports: No Symptoms Neck: reports: No Symptoms Cardiovascular: reports: Shortness of Breath Respiratory: reports: SOB Gastrointestinal: reports: No Symptoms Musculoskeletal: reports: Other (Pain in the right hip with excertion.) Integumentary: reports: No Symptoms Physical Exam Vital Signs: Vital Signs Temperature 97.9 F 08/19/17 20:46 Pulse Rate 97 H 08/19/17 20:46 Respiratory Rate 18 08/19/17 20:54 Blood Pressure 148/69 08/19/17 20:46 O2 Sat by Pulse Oximetry (%) 97 08/19/17 20:54 Constitutional: Yes: Moderate Distress Eyes: Yes: WNL HENT: Yes: WNL Neck: Yes: WNL Cardiovascular: Yes: WNL Respiratory: Yes: WNL Musculoskeletal: Yes: Other (Nop active joints.) Labs: CBC, BMP 08/19/17 06:18 08/19/17 06:18 Laboratory Tests 08/17/17 08/18/17 08/19/17 14:20 02:22 06:18 ABG pH 7.41 D ABG pCO2 at Pt Temp 54.0 H D ABG pO2 at Pt Temp 62.4 L D ABG HCO3 33.1 H ABG O2 Sat (Measured) 89.6 L ABG O2 Content 10.4 L ABG Base Excess 7.8 H Total Bilirubin 0.7 D AST 15 Alkaline Phosphatase 61 B-Natriuretic Peptide 2685.50 H Total Protein 8.1 Albumin 2.9 L Urine Color Light red Urine Appearance Cloudy Urine pH 5.0 Ur Specific [place] 1.006 Urine Protein 2+ H Urine Glucose (UA) Negative Urine Ketones Negative Urine Blood 3+ H Urine Nitrite Negative Urine Bilirubin Negative Urine Urobilinogen Negative Ur Leukocyte Esterase 1+ H Urine WBC (Auto) 57 Urine RBC (Auto) 1343 Problem List - Problems (1) ITP (idiopathic thrombocytopenic purpura) Assessment/Plan: The patient has a fdc history of ITP and no clinical changes suggestive of Lupus or other connective tissue disease, however as per Dr. Winkler she has antiphospholipid syndrome and urinalysis has proteinuria and hematuria. SOB probably related to injury to diaphragm (rule out 'shrinking lung" as seen in lupus). Rule out SLE. CT of chest with new lung nodule and mild progression of lymphadenopathy - rule out lymphoma. Rule out osteoarthritis of the right hip vs AVN Plan: Serology. X ray pelvis. Thanks. Code(s): D69.3 - IMMUNE THROMBOCYTOPENIC PURPURA
[2017-08-20] MEDS: ALPRAZolam 0.25 MG TABLET PO PRN ×2 (02:54→22:34)
[2017-08-20 04:38] LABS: URINE APPEARANCE CLEAR; URINE BILIRUBIN NEGATIVE (NEGATIVE); URINE BLOOD 3+ (NEGATIVE); URINE COLOR STRAW; URINE GLUCOSE (UA) 1+ (NEGATIVE); URINE KETONE NEGATIVE (NEGATIVE); URINE LEUK ESTERASE NEGATIVE (NEGATIVE); URINE NITRITE NEGATIVE (NEGATIVE); URINE PROTEIN NEGATIVE (NEGATIVE); URINE UROBILINOGEN NEGATIVE mg/dL (0.2-1.0)
[2017-08-20 04:41] LABS: EPI CELLS RARE /HPF (FEW); URINE MUCUS RARE
[2017-08-20] MEDS: morphine SO4 SUSTAINED ACTING 30 MG TABLET.SA PO SCH ×3 (05:56→18:12)
[2017-08-20] MEDS: sitaGLIPtin PHOSPHATE 50 MG TABLET PO SCH (06:28)
[2017-08-20] MEDS: glipiZIDE-XL 10 MG TAB.ER.24 (FP) PO SCH ×2 (06:29→18:04)
[2017-08-20] MEDS: INSULIN SLIDING SCALE (NOVOLOG) 1 VIAL SQ SCH ×4 (06:29→22:30)
[2017-08-20] MEDS ORDERED: INSULIN (NOVOLOG) ASPART 100 UNITS/ML 10ML VIAL ONE (06:45)
[2017-08-20 07:55] LABS: BASO % 0.3 % (0-2.0); HEMATOCRIT 28.5 % (32.4-45.2); HEMOGLOBIN 8.4 GM/dL (10.7-15.3); LYMPH % 4.8 % (8-40); MCH 21.9 pg (25.7-33.7); MCHC 29.4 g/dl (32.0-36.0); MEAN CELL VOLUME 74.5 fl (80-96); MEAN PLT VOLUME 9.7 fl (7.5-11.1); MONO % 5.8 % (3.8-10.2); NEUT % 89.1 % (42.8-82.8); PLATELET COUNT 52 K/MM3 (134-434); RBC 3.82 M/mm3 (3.60-5.2); RDW 20.3 % (11.6-15.6); WHITE BLOOD COUNT 9.7 K/mm3 (4.0-10.0)
[2017-08-20 08:20] LABS: CHLORIDE 96 mmol/L (98-107); POTASSIUM 4.2 mmol/L (3.5-5.1); SODIUM 135 mmol/L (136-145)
[2017-08-20 08:26] LABS: ANION GAP 9 (8-16); BLOOD UREA NITROGEN 31 mg/dL (7-18); CALCIUM 7.8 mg/dL (8.5-10.1); CO2 30 mmol/L (21-32); CREATININE 1.6 mg/dL (0.55-1.02); GLUCOSE,RANDOM 209 mg/dL (74-106)
--- NOTE | 2017-08-20 10:20 | PN ---
Progress Note (short form) - Note Progress Note: Renal Follow up for ARLETTE on CKD This is a 66 year old woman with PMhx of CKD stage 3, hx of staghorn calculi with mild hydronephrosis, ITP, Mantle Cell lymphoma, UTI's, NIDDM, Hypertension who presented with weakness, lethargy and to have recurrent worsening thrombocytopneia and developed ARLETTE during the hospitalization with Cr of 1.6. Baseline Cr 1.1-1.2. Pt noted to have edema and started on oral diuretics. Pt currently getting IVIG for thrombocytopenia. Denies any flank pain, dysuria, N/ V. Leg edema improving with diuretics. No NSAID use, no contrast exposure. Making urine. Getting IVIG day 08/07. PMHx: as above Allergies: As listed in EMR Family Hx: NC Social Hx: no T/A/D ROS: as per HPI, all other ros negative Home Medications Medication Instructions Recorded Sertraline HCl [Zoloft -] 25 mg PO DAILY 08/28/14 Alprazolam [Xanax] 0.5 mg PO Q8H PRN #0 tablet 09/10/14 Pantoprazole Sodium [Protonix -] 40 mg PO DAILY #0 tablet.ec 09/10/14 Morphine Sulfate 15 mg PO QID PRN 03/31/16 Allopurinol [Zyloprim -] 150 mg PO DAILY #60 tablet 04/07/16 Albuterol Sulfate Inhaler - 1 - 2 inh PO PRN 08/09/16 [Ventolin HFA Inhaler -] Calcium Carbonate 648 mg PO BID 08/09/16 Amlodipine Besylate [Norvasc -] 5 mg PO DAILY #0 tablet 10/29/16 Docusate Sodium [Colace -] 100 mg PO BID #60 tab-cap 10/29/16 Morphine *Sr* [MS Contin -] 60 mg PO TID #120 tab.sa MDD 180mg 12/28/16 Sitagliptin Phosphate [Januvia] 50 mg PO DAILY 03/18/17 Glipizide Xl [Glucotrol Xl -] 10 mg PO BIDAC tab.er.24 05/23/17 Acetaminophen [Tylenol .Regular 650 mg PO PRN 05/26/17 Strength -] predniSONE [Deltasone -] 40 mg PO DAILY #60 tablet 06/20/17 Ascorbic Acid [Vitamin C] 1,000 mg PO DAILY 08/17/17 Ferrous Sulfate 325 mg PO DAILY 08/17/17 Furosemide [Lasix] 40 mg PO DAILY 08/17/17 Vital Signs Temperature 97.8 F 08/20/17 04:00 Pulse Rate 78 08/20/17 04:00 Respiratory Rate 18 08/20/17 04:00 Blood Pressure 143/70 08/20/17 04:00 O2 Sat by Pulse Oximetry (%) 97 08/19/17 20:54 Intake & Output 08/17/17 08/18/17 08/19/17 08/20/17 23:59 23:59 23:59 23:59 Intake Total 300 1532 862 Output Total 400 Balance 300 1532 862 -400 Weight 112.945 kg NAD on NC O2 awake and alert MMM, No JVD, neck supple RRR, no M/R CTA in anterior exam Abd obese, midl tenderness LUQ 1+ LE edmea, no clubbing or cyanosis no neurologic defects no bladder distension CBC, BMP 08/20/17 06:35 08/20/17 06:35 Laboratory Tests 08/18/17 08/19/17 08/20/17 05:30 06:18 06:35 MCV 74.5 L Calcium Iron Saturation 3 L Albumin 2.9 L 08/20/17 06:35 MCV Calcium 7.8 L Iron Saturation Albumin Current Medications Acetaminophen (Tylenol -) 650 mg PO DAILY [facility] Stop: 08/22/17 10:01 Last Admin: 08/19/17 12:30 Dose: 650 mg Albuterol Sulfate (Ventolin Hfa Inhaler -) 2 puff IH Q4H PRN PRN Reason: ASTHMA Allopurinol (Zyloprim -) 150 mg PO DAILY [facility] Last Admin: 08/19/17 12:28 Dose: 150 mg Alprazolam (Xanax -) 0.25 mg PO Q8H PRN PRN Reason: ANXIETY Last Admin: 08/20/17 02:54 Dose: 0.25 mg Amlodipine Besylate (Norvasc -) 5 mg PO DAILY [facility] Last Admin: 08/19/17 12:29 Dose: 5 mg Ascorbic Acid (Vitamin C -) 1,000 mg PO DAILY [facility] Last Admin: 08/19/17 12:31 Dose: Not Given Calcium Carbonate (Calcium Carbonate -) 650 mg PO BID [facility] Last Admin: 08/19/17 21:01 Dose: 650 mg Dexamethasone Sodium Phosphate (Decadron Injection -) 20 mg IVPB DAILY [facility] Stop: 08/22/17 10:01 Last Admin: 08/19/17 13:49 Dose: 20 mg Diphenhydramine HCl (Benadryl Injection -) 25 mg IVPB DAILY [facility] Stop: 08/22/17 10:01 Last Admin: 08/19/17 12:30 Dose: 25 mg Docusate Sodium (Colace -) 100 mg PO BID [facility] Last Admin: 08/19/17 21:01 Dose: 100 mg Ferrous Sulfate (Feosol -) 325 mg PO DAILY [facility] Last Admin: 08/19/17 12:29 Dose: 325 mg Glipizide (Glucotrol Xl -) 10 mg PO BIDAC [facility] Last Admin: 08/20/17 06:29 Dose: 10 mg Immune Globulin (Gamunex-C) 400 mls @ 100 mls/hr IVPB DAILY [facility] Stop: 08/22/17 13:59 Last Admin: 08/19/17 14:27 Dose: 100 mls/hr Iron Sucrose 200 mg/ Sodium (Chloride) 100 mls @ 100 mls/hr IVPB DAILY@0800 [facility] Last Admin: 08/19/17 20:29 Dose: 100 mls/hr Insulin Aspart (Novolog Vial Sliding Scale -) 1 vial SQ ACHS [facility] PRN Reason: Protocol Last Admin: 08/20/17 06:29 Dose: 4 units Morphine Sulfate (Ms Contin -) 60 mg PO TID [facility] Last Admin: 08/20/17 05:56 Dose: 60 mg Morphine Sulfate (Msir -) 15 mg PO Q6H PRN PRN Reason: PAIN LEVEL 6-10 Last Admin: 08/19/17 23:57 Dose: 15 mg Non-Formulary Medication (Ascorbic Acid [Vitamin C]) 1,000 mg PO DAILY [facility] Last Admin: 08/19/17 12:30 Dose: 1,000 mg Pantoprazole Sodium (Protonix -) 40 mg PO DAILY [facility] Last Admin: 08/19/17 12:29 Dose: 40 mg Sertraline HCl (Zoloft -) 25 mg PO DAILY [facility] Last Admin: 08/19/17 12:29 Dose: 25 mg Sitagliptin Phosphate (Januvia -) 50 mg PO ACBK [facility] Last Admin: 08/20/17 06:28 Dose: 50 mg A/p 66 year old woman with PMhx of CKD stage 3, hx of staghorn calculi with mild hydronephrosis, ITP, Mantle Cell lymphoma, UTI's, NIDDM, Hypertension who presented with weakness, lethargy and to have recurrent worsening thrombocytopneia and developed ARLETTE during the hospitalization with Cr of 1.6. #ARLETTE on CKD Differential includes osmolar injury to renal tubular cells from IVIG vs. obstruction vs. intravascular volume depletion Check Urine studies for FeNa, FeUrea, UPCR if renal function is w/o improvement would recommend US of the kidney (pt requested to defer the US because of anterior abd discomfort) continue oral lasix for now as pt has volume expansion avoid NSAIDS, IV contrast, DERRICK/ARB for now Dose all meds for CrCl ~30\ #ITP/Thrombocytopenia improving Continue IVIG and steroids Heme following #Anemia (iron deficiency) getting IV iron no acute indication for transfusion #Hypertension continue amllodpine low salt diet #Hyponatremia secondary to volume overload continue diuretics no indication for 3% saline #Hypocalcemia corrected Ca is WNL Thank you Dash Padron DO
[2017-08-20] MEDS: IRON SUCROSE INJECTION 200 MG in SODIUM CHLORIDE 90 ML IVPB SCH (10:40)
[2017-08-20] MEDS: SERTRALINE HCL 25 MG TABLET (FP) PO SCH (10:41)
[2017-08-20] MEDS: ALLOPURINOL 100 MG TABLET (FP) PO SCH (10:41)
[2017-08-20] MEDS: PANTOPRAZOLE 40 MG TABLET (FP) PO SCH (10:41)
[2017-08-20] MEDS: FERROUS SO4 325 MG TABLET (FP) PO SCH (10:41)
[2017-08-20] MEDS: amLODIPine BESYLATE 5 MG TABLET (FP) PO SCH (10:41)
[2017-08-20] MEDS: DOCUSATE SODIUM 100 MG CAPSULE (FP) PO SCH ×2 (10:41→22:29)
[2017-08-20] MEDS: ASCORBIC ACID 500 MG TABLET (FP) PO SCH (10:42)
[2017-08-20] MEDS: CALCIUM CARBONATE 650 MG TABLET PO SCH ×2 (10:42→22:28)
[2017-08-20] MEDS: ASCORBIC ACID 1000 MG PO SCH (10:43)
[2017-08-20] MEDS: morphine SULFATE IMMEDIATE RELEASE 30 MG TAB PO PRN ×2 (10:47→22:34)
--- NOTE | 2017-08-20 11:07 | PN ---
Progress Note (short form) - Note Progress Note: Breathing feels better today. Less SOB. Down to 3 L NC from 4 L. No acute events overnight. Minimal dry cough. No hemoptysis. Receiving IV Iron. Intake & Output 08/17/17 08/18/17 08/19/17 08/20/17 23:59 23:59 23:59 23:59 Intake Total 300 1532 862 Output Total 400 Balance 300 1532 862 -400 Weight 249 lb Last Vital Signs Temp Pulse Resp BP Pulse Ox 98.4 F 70 18 128/51 97 08/20/17 10:39 08/20/17 10:39 08/20/17 10:39 08/20/17 10:39 08/19/17 20:54 Active Medications Acetaminophen (Tylenol -) 650 mg PO DAILY [facility] Stop: 08/22/17 10:01 Last Admin: 08/19/17 12:30 Dose: 650 mg Albuterol Sulfate (Ventolin Hfa Inhaler -) 2 puff IH Q4H PRN PRN Reason: ASTHMA Allopurinol (Zyloprim -) 150 mg PO DAILY [facility] Last Admin: 08/20/17 10:41 Dose: 150 mg Alprazolam (Xanax -) 0.25 mg PO Q8H PRN PRN Reason: ANXIETY Last Admin: 08/20/17 02:54 Dose: 0.25 mg Amlodipine Besylate (Norvasc -) 5 mg PO DAILY [facility] Last Admin: 08/20/17 10:41 Dose: 5 mg Ascorbic Acid (Vitamin C -) 1,000 mg PO DAILY [facility] Last Admin: 08/20/17 10:42 Dose: Not Given Calcium Carbonate (Calcium Carbonate -) 650 mg PO BID [facility] Last Admin: 08/20/17 10:42 Dose: 650 mg Dexamethasone Sodium Phosphate (Decadron Injection -) 20 mg IVPB DAILY [facility] Stop: 08/22/17 10:01 Last Admin: 08/19/17 13:49 Dose: 20 mg Diphenhydramine HCl (Benadryl Injection -) 25 mg IVPB DAILY [facility] Stop: 08/22/17 10:01 Last Admin: 08/19/17 12:30 Dose: 25 mg Docusate Sodium (Colace -) 100 mg PO BID [facility] Last Admin: 08/20/17 10:41 Dose: 100 mg Ferrous Sulfate (Feosol -) 325 mg PO DAILY [facility] Last Admin: 08/20/17 10:41 Dose: 325 mg Glipizide (Glucotrol Xl -) 10 mg PO BIDAC [facility] Last Admin: 08/20/17 06:29 Dose: 10 mg Immune Globulin (Gamunex-C) 400 mls @ 100 mls/hr IVPB DAILY [facility] Stop: 08/22/17 13:59 Last Admin: 08/19/17 14:27 Dose: 100 mls/hr Iron Sucrose 200 mg/ Sodium (Chloride) 100 mls @ 100 mls/hr IVPB DAILY@0800 [facility] Last Admin: 08/20/17 10:40 Dose: 100 mls/hr Insulin Aspart (Novolog Vial Sliding Scale -) 1 vial SQ ACHS [facility] PRN Reason: Protocol Last Admin: 08/20/17 06:29 Dose: 4 units Morphine Sulfate (Ms Contin -) 60 mg PO TID [facility] Last Admin: 08/20/17 05:56 Dose: 60 mg Morphine Sulfate (Msir -) 15 mg PO Q6H PRN PRN Reason: PAIN LEVEL 6-10 Last Admin: 08/20/17 10:47 Dose: 15 mg Non-Formulary Medication (Ascorbic Acid [Vitamin C]) 1,000 mg PO DAILY [facility] Last Admin: 08/20/17 10:43 Dose: 1,000 mg Pantoprazole Sodium (Protonix -) 40 mg PO DAILY [facility] Last Admin: 08/20/17 10:41 Dose: 40 mg Sertraline HCl (Zoloft -) 25 mg PO DAILY [facility] Last Admin: 08/20/17 10:41 Dose: 25 mg Sitagliptin Phosphate (Januvia -) 50 mg PO ACBK [facility] Last Admin: 08/20/17 06:28 Dose: 50 mg Constitutional: Yes: NAD Eyes: Yes: EOM Intact HENT: Yes: Normocephalic Neck: Yes: Trachea Midline Cardiovascular: Yes: S1, S2 Respiratory: Yes: Diminished at the bases Gastrointestinal: Yes: Soft, Abdomen, Obese Edema: LLE: 1+, RLE: 1+ Neurological: Yes: Alert Labs: Laboratory Results - last 24 hr 08/19/17 08/19/17 08/19/17 12:20 16:30 17:16 WBC RBC Hgb Hct MCV MCH MCHC RDW Plt Count MPV Neutrophils % Lymphocytes % Monocytes % Eosinophils % Basophils % ESR Sodium Potassium Chloride Carbon Dioxide Anion Gap BUN Creatinine POC Glucometer 311 180 Random Glucose Calcium Urine Color Urine Appearance Urine pH Ur Specific [place] Urine Protein Urine Glucose (UA) Urine Ketones Urine Blood Urine Nitrite Urine Bilirubin Urine Urobilinogen Ur Leukocyte Esterase Urine WBC (Auto) Urine RBC (Auto) Ur Epithelial Cells Urine Mucus Stool Occult Blood Negative 08/19/17 08/20/17 08/20/17 20:52 04:10 05:55 WBC RBC Hgb Hct MCV MCH MCHC RDW Plt Count MPV Neutrophils % Lymphocytes % Monocytes % Eosinophils % Basophils % ESR Sodium Potassium Chloride Carbon Dioxide Anion Gap BUN Creatinine POC Glucometer 298 259 Random Glucose Calcium Urine Color Straw Urine Appearance Clear Urine pH 7.0 D Ur Specific [place] 1.005 Urine Protein Negative Urine Glucose (UA) 1+ H Urine Ketones Negative Urine Blood 3+ H Urine Nitrite Negative Urine Bilirubin Negative Urine Urobilinogen Negative Ur Leukocyte Esterase Negative Urine WBC (Auto) 20 Urine RBC (Auto) 20 Ur Epithelial Cells Rare Urine Mucus Rare Stool Occult Blood 08/20/17 08/20/17 08/20/17 06:35 06:35 06:35 WBC 9.7 D RBC 3.82 Hgb 8.4 L D Hct 28.5 L MCV 74.5 L MCH 21.9 L MCHC 29.4 L RDW 20.3 H Plt Count 52 L D MPV 9.7 Neutrophils % 89.1 H Lymphocytes % 4.8 L D Monocytes % 5.8 Eosinophils % 0.0 Basophils % 0.3 ESR 77 H Sodium 135 L Potassium 4.2 Chloride 96 L Carbon Dioxide 30 Anion Gap 9 BUN 31 H Creatinine 1.6 H POC Glucometer Random Glucose 209 H Calcium 7.8 L Urine Color Urine Appearance Urine pH Ur Specific [place] Urine Protein Urine Glucose (UA) Urine Ketones Urine Blood Urine Nitrite Urine Bilirubin Urine Urobilinogen Ur Leukocyte Esterase Urine WBC (Auto) Urine RBC (Auto) Ur Epithelial Cells Urine Mucus Stool Occult Blood Problem List - Problems (1) Abdominal pain Code(s): R10.9 - UNSPECIFIED ABDOMINAL PAIN (2) Acute ITP Code(s): D69.3 - IMMUNE THROMBOCYTOPENIC PURPURA (3) Anemia Code(s): D64.9 - ANEMIA, UNSPECIFIED (4) CKD stage 3 secondary to diabetes Code(s): E11.22 - TYPE 2 DIABETES MELLITUS W DIABETIC CHRONIC KIDNEY DISEASE; N18.3 - CHRONIC KIDNEY DISEASE, STAGE 3 (MODERATE) (5) DVT prophylaxis Code(s): [id number] - (6) Diabetes mellitus Code(s): E11.9 - TYPE 2 DIABETES MELLITUS WITHOUT COMPLICATIONS (7) Diaphragmatic hernia Code(s): K44.9 - DIAPHRAGMATIC HERNIA WITHOUT OBSTRUCTION OR GANGRENE Qualifiers: Obstruction and gangrene presence: without obstruction or gangrene Qualified Code(s): K44.9 - Diaphragmatic hernia without obstruction or gangrene (8) HTN (hypertension) Code(s): I10 - ESSENTIAL (PRIMARY) HYPERTENSION Qualifiers: (9) Mantle cell lymphoma Code(s): C83.10 - MANTLE CELL LYMPHOMA, UNSPECIFIED SITE (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
--- NOTE | 2017-08-20 11:57 | PN ---
Progress Note, Physician History of Present Illness: Stable dyspnea. - Current Medication List Current Medications: Active Medications Acetaminophen (Tylenol -) 650 mg PO DAILY [facility] Stop: 08/22/17 10:01 Last Admin: 08/19/17 12:30 Dose: 650 mg Albuterol Sulfate (Ventolin Hfa Inhaler -) 2 puff IH Q4H PRN PRN Reason: ASTHMA Allopurinol (Zyloprim -) 150 mg PO DAILY [facility] Last Admin: 08/20/17 10:41 Dose: 150 mg Alprazolam (Xanax -) 0.25 mg PO Q8H PRN PRN Reason: ANXIETY Last Admin: 08/20/17 02:54 Dose: 0.25 mg Amlodipine Besylate (Norvasc -) 5 mg PO DAILY [facility] Last Admin: 08/20/17 10:41 Dose: 5 mg Ascorbic Acid (Vitamin C -) 1,000 mg PO DAILY [facility] Last Admin: 08/20/17 10:42 Dose: Not Given Calcium Carbonate (Calcium Carbonate -) 650 mg PO BID [facility] Last Admin: 08/20/17 10:42 Dose: 650 mg Dexamethasone Sodium Phosphate (Decadron Injection -) 20 mg IVPB DAILY [facility] Stop: 08/22/17 10:01 Last Admin: 08/19/17 13:49 Dose: 20 mg Diphenhydramine HCl (Benadryl Injection -) 25 mg IVPB DAILY [facility] Stop: 08/22/17 10:01 Last Admin: 08/19/17 12:30 Dose: 25 mg Docusate Sodium (Colace -) 100 mg PO BID [facility] Last Admin: 08/20/17 10:41 Dose: 100 mg Ferrous Sulfate (Feosol -) 325 mg PO DAILY [facility] Last Admin: 08/20/17 10:41 Dose: 325 mg Glipiz[facility] ([facility]) [facility] Last Admin: 08/20/17 06:29 Dose: 10 mg Immune Globulin (Gamunex-C) 400 mls @ 100 mls/hr IVPB DAILY [facility] Stop: 08/22/17 13:59 Last Admin: 08/19/17 14:27 Dose: 100 mls/hr Iron Sucrose 200 mg/ Sodium (Chloride) 100 mls @ 100 mls/hr IVPB DAILY@0800 [facility] Last Admin: 08/20/17 10:40 Dose: 100 mls/hr Insulin Aspart (Novolog Vial Sliding Scale -) 1 vial SQ ACHS [facility] PRN Reason: Protocol Last Admin: 08/20/17 06:29 Dose: 4 units Morphine Sulfate (Ms Contin -) 60 mg PO TID [facility] Last Admin: 08/20/17 05:56 Dose: 60 mg Morphine Sulfate (Msir -) 15 mg PO Q6H PRN PRN Reason: PAIN LEVEL 6-10 Last Admin: 08/20/17 10:47 Dose: 15 mg Non-Formulary Medication (Ascorbic Acid [Vitamin C]) 1,000 mg PO DAILY [facility] Last Admin: 08/20/17 10:43 Dose: 1,000 mg Pantoprazole Sodium (Protonix -) 40 mg PO DAILY [facility] Last Admin: 08/20/17 10:41 Dose: 40 mg Sertraline HCl (Zoloft -) 25 mg PO DAILY [facility] Last Admin: 08/20/17 10:41 Dose: 25 mg Sitagliptin Phosphate (Januvia -) 50 mg PO ACBK [facility] Last Admin: 08/20/17 06:28 Dose: 50 mg - Objective Vital Signs: Vital Signs Temperature 98.4 F 08/20/17 10:39 Pulse Rate 70 08/20/17 10:39 Respiratory Rate 18 08/20/17 10:39 Blood Pressure 128/51 08/20/17 10:39 O2 Sat by Pulse Oximetry (%) 97 08/19/17 20:54 Constitutional: Yes: No Distress, Calm Neck: Yes: Supple Cardiovascular: Yes: Regular Rate and Rhythm Respiratory: Yes: Regular, Diminished, On Nasal O2 Gastrointestinal: Yes: Normal Bowel Sounds, Soft, Abdomen, Obese Edema: Yes Labs: CBC, BMP 08/20/17 06:35 08/20/17 06:35 Problem List - Problems (1) Acute ITP Code(s): D69.3 - IMMUNE THROMBOCYTOPENIC PURPURA (2) Anemia Code(s): D64.9 - ANEMIA, UNSPECIFIED Qualifiers: Anemia type: unspecified type Qualified Code(s): D64.9 - Anemia, unspecified (3) CKD stage 3 secondary to diabetes Code(s): E11.22 - TYPE 2 DIABETES MELLITUS W DIABETIC CHRONIC KIDNEY DISEASE; N18.3 - CHRONIC KIDNEY DISEASE, STAGE 3 (MODERATE) (4) Diabetes mellitus Code(s): E11.9 - TYPE 2 DIABETES MELLITUS WITHOUT COMPLICATIONS Qualifiers: Diabetes mellitus type: type 2 (5) Diaphragmatic hernia Code(s): K44.9 - DIAPHRAGMATIC HERNIA WITHOUT OBSTRUCTION OR GANGRENE Qualifiers: Obstruction and gangrene presence: without obstruction or gangrene Qualified Code(s): K44.9 - Diaphragmatic hernia without obstruction or gangrene (6) HTN (hypertension) Code(s): I10 - ESSENTIAL (PRIMARY) HYPERTENSION Qualifiers: Hypertension type: essential hypertension Qualified Code(s): I10 - Essential (primary) hypertension (7) Mantle cell lymphoma Code(s): C83.10 - MANTLE CELL LYMPHOMA, UNSPECIFIED SITE Assessment/Plan 08/18/2017 Normal biventricular size and fxn, mild LAE, MR, TR 08/29/2014 Normal LV size and fxn without sig valve abnl 1. Recurrent ITP h/o splenectomy, antiphospholipids 2. Recurrent dyspnea on exertion after failure of left diaphragmatic hernia repair/mesh 3. HTN 4. NIDDM 5. History of Mantle Cell Lymphoma 6. Acute on CKD 3, staghorn calculi and hydronephrosis 7. Chronic interstitial lung disease PLAN: 1. Resume Lisinopril 10 qd once renal fxn stable, continue Norvasc 5 qd 2. DVT and GI prophylaxis, BD as needed 3. Steroids and IVIG course with monitor Plt, usual transfusion parameters. 4. Consideration for re-op diaphragmatic hernia repair after recovery of plt counts 5. O2, BD as needed
[2017-08-20] MEDS: ACETAMINOPHEN 325 MG TABLET (FP) PO SCH (11:58)
[2017-08-20] MEDS: DEXAMETHASONE SOD PHOSPHATE 10 MG/1 ML VIAL IVPB SCH (12:27)
--- NOTE | 2017-08-20 13:02 | PN ---
Progress Note, Physician Chief Complaint: feeling weak no active bleeding History of Present Illness: 66-year-old female, with H/O HTN, T2DM, Diabetic Nephropathy CKD stage 3 base line GFR 35-40, Mantel Cell Lymphoma not on treatment, ITP s/p Spleenectomy multiple relapse admitted with SOB with thrombocytopenia and anemia on 08/17/2017 - Current Medication List Current Medications: Active Medications Acetaminophen (Tylenol -) 650 mg PO DAILY [facility] Stop: 08/22/17 10:01 Last Admin: 08/20/17 11:58 Dose: 650 mg Albuterol Sulfate (Ventolin Hfa Inhaler -) 2 puff IH Q4H PRN PRN Reason: ASTHMA Allopurinol (Zyloprim -) 150 mg PO DAILY [facility] Last Admin: 08/20/17 10:41 Dose: 150 mg Alprazolam (Xanax -) 0.25 mg PO Q8H PRN PRN Reason: ANXIETY Last Admin: 08/20/17 02:54 Dose: 0.25 mg Amlodipine Besylate (Norvasc -) 5 mg PO DAILY [facility] Last Admin: 08/20/17 10:41 Dose: 5 mg Ascorbic Acid (Vitamin C -) 1,000 mg PO DAILY [facility] Last Admin: 08/20/17 10:42 Dose: Not Given Calcium Carbonate (Calcium Carbonate -) 650 mg PO BID [facility] Last Admin: 08/20/17 10:42 Dose: 650 mg Dexamethasone Sodium Phosphate (Decadron Injection -) 20 mg IVPB DAILY [facility] Stop: 08/22/17 10:01 Last Admin: 08/20/17 12:27 Dose: 20 mg Diphenhydramine HCl (Benadryl Injection -) 25 mg IVPB DAILY [facility] Stop: 08/22/17 10:01 Last Admin: 08/20/17 11:58 Dose: 25 mg Docusate Sodium (Colace -) 100 mg PO BID [facility] Last Admin: 08/20/17 10:41 Dose: 100 mg Ferrous Sulfate (Feosol -) 325 mg PO DAILY [facility] Last Admin: 08/20/17 10:41 Dose: 325 mg [facility]ipizide [facility]) [facility] Last Admin: 08/20/17 06:29 Dose: 10 mg Immune Globulin (Gamunex-C) 400 mls @ 100 mls/hr IVPB DAILY [facility] Stop: 08/22/17 13:59 Last Admin: 08/19/17 14:27 Dose: 100 mls/hr Iron Sucrose 200 mg/ Sodium (Chloride) 100 mls @ 100 mls/hr IVPB DAILY@0800 [facility] Last Admin: 08/20/17 10:40 Dose: 100 mls/hr Insulin Aspart (Novolog Vial Sliding Scale -) 1 vial SQ ACHS [facility] PRN Reason: Protocol Last Admin: 08/20/17 12:26 Dose: 2 units Morphine Sulfate (Ms Contin -) 60 mg PO TID [facility] Last Admin: 08/20/17 05:56 Dose: 60 mg Morphine Sulfate (Msir -) 15 mg PO Q6H PRN PRN Reason: PAIN LEVEL 6-10 Last Admin: 08/20/17 10:47 Dose: 15 mg Non-Formulary Medication (Ascorbic Acid [Vitamin C]) 1,000 mg PO DAILY [facility] Last Admin: 08/20/17 10:43 Dose: 1,000 mg Pantoprazole Sodium (Protonix -) 40 mg PO DAILY [facility] Last Admin: 08/20/17 10:41 Dose: 40 mg Sertraline HCl (Zoloft -) 25 mg PO DAILY [facility] Last Admin: 08/20/17 10:41 Dose: 25 mg Sitagliptin Phosphate (Januvia -) 50 mg PO ACBK [facility] Last Admin: 08/20/17 06:28 Dose: 50 mg - Objective Vital Signs: Vital Signs Temperature 98.4 F 08/20/17 10:39 Pulse Rate 70 08/20/17 10:39 Respiratory Rate 18 08/20/17 10:39 Blood Pressure 128/51 08/20/17 10:39 O2 Sat by Pulse Oximetry (%) 97 08/19/17 20:54 GENERAL: Awake, alert, and fully oriented, in no acute distress HEEENT: No signs of trauma, PERRLA, EOMI, sclera anicteric, conjunctiva clear Auricles normal inspection, hearing grossly normal, oropharynx clear without exudates. Moist mucosa NECK: Normal ROM, supple, no lymphadenopathy, JVD, or masses CHEST and LUNGS: Non Tender , Breath sounds equal, clear to auscultation bilaterally. CVS: Regular rate and rhythm, normal S1 and S2, no murmurs, rubs or gallops ABDOMEN: Soft, nontender, normoactive bowel sounds. No guarding, no rebound. No masses EXTREMITIES and Back: Normal range of motion, no edema. No clubbing or cyanosis. No cords, erythema, or tenderness NEUROLOGICAL: Cranial nerves II through XII grossly intact. Normal speech, normal gait SKIN: Warm, Dry, no rashes or lesions noted. Labs: CBC, BMP 08/20/17 06:35 08/20/17 06:35 Problem List - Problems (1) Thrombocytopenia Assessment/Plan: Known case of ITP admitted with thrombocytopenia, platelet count is improving on current therapy. Code(s): D69.6 - THROMBOCYTOPENIA, UNSPECIFIED (2) CKD stage 3 secondary to diabetes Assessment/Plan: Admitted with worsening renal functions, now improving Code(s): E11.22 - TYPE 2 DIABETES MELLITUS W DIABETIC CHRONIC KIDNEY DISEASE; N18.3 - CHRONIC KIDNEY DISEASE, STAGE 3 (MODERATE) (3) Anemia Assessment/Plan: Chronic present with worsening H/H stable since yesterday Code(s): D64.9 - ANEMIA, UNSPECIFIED Qualifiers: Anemia type: iron deficiency Iron deficiency anemia type: chronic blood loss (4) HTN (hypertension) Assessment/Plan: Well controlled on current therapy Code(s): I10 - ESSENTIAL (PRIMARY) HYPERTENSION Qualifiers: Hypertension type: essential hypertension Qualified Code(s): I10 - Essential (primary) hypertension (5) Mantle cell lymphoma Assessment/Plan: In remission Code(s): C83.10 - MANTLE CELL LYMPHOMA, UNSPECIFIED SITE (6) T2DM (type 2 diabetes mellitus) Assessment/Plan: optimize glycemic control on steroids Code(s): E11.9 - TYPE 2 DIABETES MELLITUS WITHOUT COMPLICATIONS Qualifiers: Diabetes mellitus ferry terminal agent insulin use: without ferry terminal agent use Diabetes mellitus complication status: without complication Qualified Code(s): E11.9 - Type 2 diabetes mellitus without complications (7) SOB (shortness of breath) Assessment/Plan: Due to Volume over load and anemia , now improving Code(s): R06.02 - SHORTNESS OF BREATH
--- NOTE | 2017-08-20 13:19 | PN ---
Progress Note (short form) - Note Progress Note: Seen in follow up. No new complaints. Platelets improved today. Meds reviewed. Current Medications Generic Name Dose Route Start Last Admin Trade Name Freq PRN Reason Stop Dose Admin Acetaminophen 650 mg 08/18/17 10:00 08/20/17 11:58 Tylenol - PO 08/22/17 10:01 650 mg DAILY [facility] Administration Albuterol Sulfate 2 puff 08/17/17 15:49 Ventolin Hfa Inhaler - IH Q4H PRN ASTHMA Allopurinol 150 mg 08/18/17 10:00 08/20/17 10:41 Zyloprim - PO 150 mg DAILY [facility] Administration Alprazolam 0.25 mg 08/18/17 10:57 08/20/17 02:54 Xanax - PO 0.25 mg Q8H PRN Administration ANXIETY Amlodipine Besylate 5 mg 08/18/17 10:00 08/20/17 10:41 Norvasc - PO 5 mg DAILY [facility] Administration Ascorbic Acid 1,000 mg 08/18/17 10:00 08/20/17 10:42 Vitamin C - PO Not Given DAILY [facility] Calcium Carbonate 650 mg 08/17/17 22:00 08/20/17 10:42 Calcium Carbonate - PO 650 mg BID [facility] Administration Dexamethasone Sodium Phosphate 20 mg 08/18/17 10:00 08/20/17 12:27 Decadron Injection - IVPB 08/22/17 10:01 20 mg DAILY [facility] Administration Diphenhydramine HCl 25 mg 08/18/17 10:00 08/20/17 11:58 Benadryl Injection - IVPB 08/22/17 10:01 25 mg DAILY [facility] Administration Docusate Sodium 100 mg 08/17/17 22:00 08/20/17 10:41 Colace - PO 100 mg BID [facility] Administration Ferrous Sulfate 325 mg 08/18/17 10:00 08/20/17 10:41 Feosol - PO 325 mg DAILY [facility] Administration Glipizide 10 mg 08/17/17 16:30 08/20/17 06:29 Glucotrol Xl - PO 10 mg BIDAC [facility] Administration Immune Globulin 400 mls @ 100 mls/hr 08/18/17 10:00 08/19/17 14:27 Gamunex-C IVPB 08/22/17 13:59 100 mls/hr DAILY [facility] Administration Iron Sucrose 200 mg/ Sodium 100 mls @ 100 mls/hr 08/19/17 12:45 08/20/17 10: 40 Chloride IVPB 100 mls/hr DAILY@0800 [facility] Administration Insulin Aspart 1 vial 08/18/17 22:00 08/20/17 12:26 Novolog Vial Sliding Scale - SQ 2 units ACHS [facility] Administration Protocol Morphine Sulfate 60 mg 08/17/17 14:00 08/20/17 05:56 Ms Contin - PO 60 mg TID [facility] Administration Morphine Sulfate 15 mg 08/17/17 14:43 08/20/17 10:47 Msir - PO 15 mg Q6H PRN Administration PAIN LEVEL 6-10 Non-Formulary Medication 1,000 mg 08/18/17 10:00 08/20/17 10:43 Ascorbic Acid [Vitamin C] PO 1,000 mg DAILY [facility] Administration Pantoprazole Sodium 40 mg 08/18/17 10:00 08/20/17 10:41 Protonix - PO 40 mg DAILY [facility] Administration Sertraline HCl 25 mg 08/18/17 10:00 08/20/17 10:41 Zoloft - PO 25 mg DAILY [facility] Administration Sitagliptin Phosphate 50 mg 08/18/17 07:00 08/20/17 06:28 Januvia - PO 50 mg ACBK [facility] Administration On exam: Last Vital Signs Temp Pulse Resp BP Pulse Ox 98.4 F 70 18 128/51 97 08/20/17 10:39 08/20/17 10:39 08/20/17 10:39 08/20/17 10:39 08/19/17 20:54 General: Looks well, obese, supine in bed. Extremities: No pallor, no icterus. Bilateral pedal edema, mild. Neuro: Alert, oriented, non-focal. Skin: Petechiae lower extremities. CBC, BMP 08/20/17 06:35 08/20/17 06:35 Assessment. ITP (previously considered possible secondary ITP, with background indolent mantle cell, but as per patient recent PEP negative, less likely), with exacerbation currently. Historically has always responded to steroids/IVIG. Today with robust platelet response. Gradually worsening microcytic anemia, attributable to iron deficiency. (No stainable iron seen on bone marrow biopsy April 2016) Ferritins progressively lower. Has never had GI workup - needs endoscopy. While admitted will replenish iron intravenously. Does not need to kept in hospital for IV iron. If platelet improvement trend confirmed tomorrow then (from hematological point of view) can be discharged.
[2017-08-20] MEDS: IMMUNE GLOB,GAM CAPRYLATE(IGG) 40 GM IVPB SCH (14:34)
[2017-08-20 14:44] LABS: URINE CREATININE 32.5 mg/dL (20-320)
[2017-08-21] MEDS: morphine SO4 SUSTAINED ACTING 30 MG TABLET.SA PO SCH ×4 (00:29→21:56)
[2017-08-21] MEDS: glipiZIDE-XL 10 MG TAB.ER.24 (FP) PO SCH ×2 (06:20→16:46)
[2017-08-21] MEDS: sitaGLIPtin PHOSPHATE 50 MG TABLET PO SCH (06:20)
[2017-08-21] MEDS: INSULIN SLIDING SCALE (NOVOLOG) 1 VIAL SQ SCH ×4 (06:21→21:57)
[2017-08-21 06:42] LABS: BASO % 0.2 % (0-2.0); EOS % 0.1 % (0-4.5); HEMATOCRIT 27.2 % (32.4-45.2); HEMOGLOBIN 8.2 GM/dL (10.7-15.3); LYMPH % 6.7 % (8-40); MCH 22.4 pg (25.7-33.7); MCHC 29.9 g/dl (32.0-36.0); MEAN CELL VOLUME 74.8 fl (80-96); MONO % 5.5 % (3.8-10.2); NEUT % 87.5 % (42.8-82.8); RBC 3.64 M/mm3 (3.60-5.2); RDW 20.7 % (11.6-15.6); WHITE BLOOD COUNT 7.6 K/mm3 (4.0-10.0)
[2017-08-21 07:11] LABS: ANION GAP 10 (8-16); BILIRUBIN,TOTAL 0.6 mg/dL (0.2-1.0); BLOOD UREA NITROGEN 38 mg/dL (7-18); CALCIUM 8.4 mg/dL (8.5-10.1); CHLORIDE 96 mmol/L (98-107); CO2 29 mmol/L (21-32); CREATININE 1.9 mg/dL (0.55-1.02); GLUCOSE,RANDOM 203 mg/dL (74-106); MAGNESIUM 2.7 mg/dL (1.8-2.4); POTASSIUM 4.2 mmol/L (3.5-5.1); SGOT/AST 13 U/L (15-37); SGPT/ALT 10 U/L (12-78); SODIUM 135 mmol/L (136-145); TOT PROT 9.1 g/dl (6.4-8.2)
[2017-08-21 07:12] LABS: ALK PHOS 50 U/L (45-117)
[2017-08-21 09:20] LABS: MEAN PLT VOLUME 11.3 fl (7.5-11.1); PLATELET COUNT 100 K/MM3 (134-434); PLATELET ESTIMATE DECREASED
[2017-08-21] MEDS ORDERED: PT OWN MED DRAWER 7, Y5N ONE ×3 (09:29→20:52)
[2017-08-21] MEDS: FERROUS SO4 325 MG TABLET (FP) PO SCH (09:31)
[2017-08-21] MEDS: amLODIPine BESYLATE 5 MG TABLET (FP) PO SCH (09:31)
[2017-08-21] MEDS: PANTOPRAZOLE 40 MG TABLET (FP) PO SCH (09:31)
[2017-08-21] MEDS: DOCUSATE SODIUM 100 MG CAPSULE (FP) PO SCH ×2 (09:31→21:57)
[2017-08-21] MEDS: IRON SUCROSE INJECTION 200 MG in SODIUM CHLORIDE 90 ML IVPB SCH (09:31)
[2017-08-21] MEDS: SERTRALINE HCL 25 MG TABLET (FP) PO SCH (09:31)
[2017-08-21] MEDS: ALLOPURINOL 100 MG TABLET (FP) PO SCH (09:32)
[2017-08-21] MEDS: CALCIUM CARBONATE 650 MG TABLET PO SCH ×2 (09:33→21:57)
[2017-08-21] MEDS: ASCORBIC ACID 1000 MG PO SCH (09:39)
--- NOTE | 2017-08-21 10:41 | PN ---
Progress Note, Physician History of Present Illness: Stable dyspnea. Plts recovering. - Current Medication List Current Medications: Active Medications Acetaminophen (Tylenol -) 650 mg PO DAILY [facility] Stop: 08/22/17 10:01 Last Admin: 08/20/17 11:58 Dose: 650 mg Albuterol Sulfate (Ventolin Hfa Inhaler -) 2 puff IH Q4H PRN PRN Reason: ASTHMA Allopurinol (Zyloprim -) 150 mg PO DAILY [facility] Last Admin: 08/21/17 09:32 Dose: 150 mg Alprazolam (Xanax -) 0.25 mg PO Q8H PRN PRN Reason: ANXIETY Last Admin: 08/20/17 22:34 Dose: 0.25 mg Amlodipine Besylate (Norvasc -) 5 mg PO DAILY [facility] Last Admin: 08/21/17 09:31 Dose: 5 mg Ascorbic Acid (Vitamin C -) 1,000 mg PO DAILY [facility] Last Admin: 08/20/17 10:42 Dose: Not Given Calcium Carbonate (Calcium Carbonate -) 650 mg PO BID [facility] Last Admin: 08/21/17 09:33 Dose: 650 mg Dexamethasone Sodium Phosphate (Decadron Injection -) 20 mg IVPB DAILY [facility] Stop: 08/22/17 10:01 Last Admin: 08/20/17 12:27 Dose: 20 mg Diphenhydramine HCl (Benadryl Injection -) 25 mg IVPB DAILY [facility] Stop: 08/22/17 10:01 Last Admin: 08/20/17 11:58 Dose: 25 mg Docusate Sodium (Colace -) 100 mg PO BID [facility] Last Admin: 08/21/17 09:31 Dose: 100 mg Ferrous Sulfate (Feosol -) 325 mg PO DAILY [facility] Last Admin: 08/21/17 09:31 Dose: 325 mg Glipiz[facility]l -) [facility] Last Admin: 08/21/17 06:20 Dose: 10 mg Immune Globulin (Gamunex-C) 400 mls @ 100 mls/hr IVPB DAILY [facility] Stop: 08/22/17 13:59 Last Admin: 08/20/17 14:34 Dose: 100 mls/hr Iron Sucrose 200 mg/ Sodium (Chloride) 100 mls @ 100 mls/hr IVPB DAILY@0800 [facility] Last Admin: 08/21/17 09:31 Dose: 100 mls/hr Insulin Aspart (Novolog Vial Sliding Scale -) 1 vial SQ ACHS [facility] PRN Reason: Protocol Last Admin: 08/21/17 06:21 Dose: 2 units Morphine Sulfate (Ms Contin -) 60 mg PO TID [facility] Last Admin: 08/21/17 06:20 Dose: 60 mg Morphine Sulfate (Msir -) 15 mg PO Q6H PRN PRN Reason: PAIN LEVEL 4 - 6 Last Admin: 08/20/17 22:34 Dose: 15 mg Non-Formulary Medication (Ascorbic Acid [Vitamin C]) 1,000 mg PO DAILY [facility] Last Admin: 08/21/17 09:39 Dose: 1,000 mg Pantoprazole Sodium (Protonix -) 40 mg PO DAILY [facility] Last Admin: 08/21/17 09:31 Dose: 40 mg Sertraline HCl (Zoloft -) 25 mg PO DAILY [facility] Last Admin: 08/21/17 09:31 Dose: 25 mg Sitagliptin Phosphate (Januvia -) 50 mg PO ACBK [facility] Last Admin: 08/21/17 06:20 Dose: 50 mg - Objective Vital Signs: Vital Signs Temperature 97.8 F 08/21/17 06:00 Pulse Rate 78 08/21/17 06:00 Respiratory Rate 20 08/21/17 06:00 Blood Pressure 156/74 08/21/17 06:00 O2 Sat by Pulse Oximetry (%) 98 08/20/17 21:00 Constitutional: Yes: No Distress, Calm Neck: Yes: Supple Cardiovascular: Yes: Regular Rate and Rhythm Respiratory: Yes: Regular, CTA Bilaterally, On Nasal O2 Gastrointestinal: Yes: Normal Bowel Sounds, Soft, Abdomen, Obese Edema: Yes Edema: LLE: 1+, RLE: 1+ Labs: CBC, BMP 08/21/17 06:15 08/21/17 06:15 Problem List - Problems (1) Acute ITP Code(s): D69.3 - IMMUNE THROMBOCYTOPENIC PURPURA (2) Anemia Code(s): D64.9 - ANEMIA, UNSPECIFIED Qualifiers: Anemia type: unspecified type Qualified Code(s): D64.9 - Anemia, unspecified (3) CKD stage 3 secondary to diabetes Code(s): E11.22 - TYPE 2 DIABETES MELLITUS W DIABETIC CHRONIC KIDNEY DISEASE; N18.3 - CHRONIC KIDNEY DISEASE, STAGE 3 (MODERATE) (4) Diabetes mellitus Code(s): E11.9 - TYPE 2 DIABETES MELLITUS WITHOUT COMPLICATIONS Qualifiers: Diabetes mellitus type: type 2 (5) Diaphragmatic hernia Code(s): K44.9 - DIAPHRAGMATIC HERNIA WITHOUT OBSTRUCTION OR GANGRENE Qualifiers: Obstruction and gangrene presence: without obstruction or gangrene Qualified Code(s): K44.9 - Diaphragmatic hernia without obstruction or gangrene (6) HTN (hypertension) Code(s): I10 - ESSENTIAL (PRIMARY) HYPERTENSION Qualifiers: Hypertension type: essential hypertension Qualified Code(s): I10 - Essential (primary) hypertension (7) Mantle cell lymphoma Code(s): C83.10 - MANTLE CELL LYMPHOMA, UNSPECIFIED SITE Assessment/Plan 08/18/2017 Normal biventricular size and fxn, mild LAE, MR, TR 08/29/2014 Normal LV size and fxn without sig valve abnl 1. Recurrent ITP h/o splenectomy, antiphospholipids improving 2. Recurrent dyspnea on exertion after failure of left diaphragmatic hernia repair/mesh 3. HTN 4. NIDDM 5. History of Mantle Cell Lymphoma 6. Acute on CKD 3, staghorn calculi and hydronephrosis 7. Chronic interstitial lung disease PLAN: 1. Resume Lisinopril 10 qd once renal fxn stable, continue Norvasc 5 qd 2. DVT and GI prophylaxis 3. Steroids and IVIG course with monitor Plt, usual transfusion parameters. 4. Consideration for re-op diaphragmatic hernia repair after recovery of plt counts, endoscopy w/u of Fe deficient anemia 5. O2, BD as needed, wrap legs
--- NOTE | 2017-08-21 11:03 | PN ---
Progress Note (short form) - Note Progress Note: PULMONARY Some dyspnea with exertion but without significant cough or wheezing. Last Vital Signs Temp Pulse Resp BP Pulse Ox 97.8 F 78 20 156/74 98 08/21/17 06:00 08/21/17 06:00 08/21/17 06:00 08/21/17 06:00 08/20/17 21:00 Gen: NAD at rest Heart: RRR Lung: decreased breath sounds at the bases Abd: soft, nontender Ext: + edema CBC, BMP 08/21/17 06:15 08/21/17 06:15 Active Medications Acetaminophen (Tylenol -) 650 mg PO DAILY [facility] Stop: 08/22/17 10:01 Last Admin: 08/20/17 11:58 Dose: 650 mg Albuterol Sulfate (Ventolin Hfa Inhaler -) 2 puff IH Q4H PRN PRN Reason: ASTHMA Allopurinol (Zyloprim -) 150 mg PO DAILY [facility] Last Admin: 08/21/17 09:32 Dose: 150 mg Amlodipine Besylate (Norvasc -) 5 mg PO DAILY [facility] Last Admin: 08/21/17 09:31 Dose: 5 mg Ascorbic Acid (Vitamin C -) 1,000 mg PO DAILY [facility] Last Admin: 08/20/17 10:42 Dose: Not Given Calcium Carbonate (Calcium Carbonate -) 650 mg PO BID [facility] Last Admin: 08/21/17 09:33 Dose: 650 mg Dexamethasone Sodium Phosphate (Decadron Injection -) 20 mg IVPB DAILY [facility] Stop: 08/22/17 10:01 Last Admin: 08/20/17 12:27 Dose: 20 mg Diphenhydramine HCl (Benadryl Injection -) 25 mg IVPB DAILY [facility] Stop: 08/22/17 10:01 Last Admin: 08/20/17 11:58 Dose: 25 mg Docusate Sodium (Colace -) 100 mg PO BID [facility] Last Admin: 08/21/17 09:31 Dose: 100 mg Ferrous Sulfate (Feosol -) 325 mg PO DAILY [facility] Last Admin: 08/21/17 09:31 Dose: 325 mg Glipizide (Glucotrol Xl -) [facility] Last Admin: 08/21/17 06:20 Dose: 10 mg Immune Globulin (Gamunex-C) 400 mls @ 100 mls/hr IVPB DAILY [facility] Stop: 08/22/17 13:59 Last Admin: 08/20/17 14:34 Dose: 100 mls/hr Iron Sucrose 200 mg/ Sodium (Chloride) 100 mls @ 100 mls/hr IVPB DAILY@0800 [facility] Last Admin: 08/21/17 09:31 Dose: 100 mls/hr Insulin Aspart (Novolog Vial Sliding Scale -) 1 vial SQ ACHS [facility] PRN Reason: Protocol Last Admin: 08/21/17 06:21 Dose: 2 units Morphine Sulfate (Ms Contin -) 60 mg PO TID [facility] Last Admin: 08/21/17 06:20 Dose: 60 mg Morphine Sulfate (Msir -) 15 mg PO Q6H PRN PRN Reason: PAIN LEVEL 4 - 6 Last Admin: 08/20/17 22:34 Dose: 15 mg Non-Formulary Medication (Ascorbic Acid [Vitamin C]) 1,000 mg PO DAILY [facility] Last Admin: 08/21/17 09:39 Dose: 1,000 mg Pantoprazole Sodium (Protonix -) 40 mg PO DAILY [facility] Last Admin: 08/21/17 09:31 Dose: 40 mg Sertraline HCl (Zoloft -) 25 mg PO DAILY [facility] Last Admin: 08/21/17 09:31 Dose: 25 mg Sitagliptin Phosphate (Januvia -) 50 mg PO ACBK [facility] Last Admin: 08/21/17 06:20 Dose: 50 mg A/P Recurrent ITP Left Diaphragmatic Hernia Acute on Chronic Renal Failure Interstitial Lung Disease HTN DM h/o Lymphoma - continue decadron, IVIG per heme/onc - O2 to keep SpO2 >90% - inhaled bronchodilators - monitor CBC - DVT prophylaxis
--- NOTE | 2017-08-21 11:50 | PN ---
Progress Note, Physician Chief Complaint: Ms Painting today says she is feeling well. SOB minimal. No cp or n/v. - Current Medication List Current Medications: Active Medications Acetaminophen (Tylenol -) 650 mg PO DAILY [facility] Stop: 08/22/17 10:01 Last Admin: 08/20/17 11:58 Dose: 650 mg Albuterol Sulfate (Ventolin Hfa Inhaler -) 2 puff IH Q4H PRN PRN Reason: ASTHMA Allopurinol (Zyloprim -) 150 mg PO DAILY [facility] Last Admin: 08/21/17 09:32 Dose: 150 mg Amlodipine Besylate (Norvasc -) 5 mg PO DAILY [facility] Last Admin: 08/21/17 09:31 Dose: 5 mg Ascorbic Acid (Vitamin C -) 1,000 mg PO DAILY [facility] Last Admin: 08/20/17 10:42 Dose: Not Given Calcium Carbonate (Calcium Carbonate -) 650 mg PO BID [facility] Last Admin: 08/21/17 09:33 Dose: 650 mg Dexamethasone Sodium Phosphate (Decadron Injection -) 20 mg IVPB DAILY [facility] Stop: 08/22/17 10:01 Last Admin: 08/20/17 12:27 Dose: 20 mg Diphenhydramine HCl (Benadryl Injection -) 25 mg IVPB DAILY [facility] Stop: 08/22/17 10:01 Last Admin: 08/20/17 11:58 Dose: 25 mg Docusate Sodium (Colace -) 100 mg PO BID [facility] Last Admin: 08/21/17 09:31 Dose: 100 mg Ferrous Sulfate (Feosol -) 325 mg PO DAILY [facility] Last Admin: 08/21/17 09:31 Dose: 325 mg [facility] Admin: 08/21/17 06:20 Dose: 10 mg Immune Globulin (Gamunex-C) 400 mls @ 100 mls/hr IVPB DAILY [facility] Stop: 08/22/17 13:59 Last Admin: 08/20/17 14:34 Dose: 100 mls/hr Iron Sucrose 200 mg/ Sodium (Chloride) 100 mls @ 100 mls/hr IVPB DAILY@0800 [facility] Last Admin: 08/21/17 09:31 Dose: 100 mls/hr Insulin Aspart (Novolog Vial Sliding Scale -) 1 vial SQ ACHS [facility] PRN Reason: Protocol Last Admin: 08/21/17 06:21 Dose: 2 units Morphine Sulfate (Ms Contin -) 60 mg PO TID [facility] Last Admin: 08/21/17 06:20 Dose: 60 mg Morphine Sulfate (Msir -) 15 mg PO Q6H PRN PRN Reason: PAIN LEVEL 4 - 6 Last Admin: 08/20/17 22:34 Dose: 15 mg Non-Formulary Medication (Ascorbic Acid [Vitamin C]) 1,000 mg PO DAILY [facility] Last Admin: 08/21/17 09:39 Dose: 1,000 mg Pantoprazole Sodium (Protonix -) 40 mg PO DAILY [facility] Last Admin: 08/21/17 09:31 Dose: 40 mg Senna (Senna -) 1 tab PO BID [facility] Sertraline HCl (Zoloft -) 25 mg PO DAILY [facility] Last Admin: 08/21/17 09:31 Dose: 25 mg Sitagliptin Phosphate (Januvia -) 50 mg PO ACBK [facility] Last Admin: 08/21/17 06:20 Dose: 50 mg - Objective Vital Signs: Vital Signs Temperature 36.6 C 08/21/17 06:00 Pulse Rate 78 08/21/17 06:00 Respiratory Rate 20 08/21/17 06:00 Blood Pressure 156/74 08/21/17 06:00 O2 Sat by Pulse Oximetry (%) 98 08/20/17 21:00 Constitutional: Yes: No Distress, Calm, Obese Cardiovascular: Yes: Regular Rate and Rhythm. No: Gallop, Murmur, Rub Respiratory: Yes: Regular, CTA Bilaterally. No: Rales, Rhonchi, Wheezes Gastrointestinal: Yes: Normal Bowel Sounds, Soft. No: Distention, Tenderness Extremities: Yes: WNL Edema: Yes Edema: LLE: 1+, RLE: 1+ Labs: CBC, BMP 08/21/17 06:15 08/21/17 06:15 Assessment/Plan (1) Hypoxia Assessment/Plan: -possibly secondary to diaphragmatic hernia -outpatient evaluation for repair -appreciate pulmonary assistance -continue current management Code(s): R09.02 - HYPOXEMIA (2) Weakness Assessment/Plan: -secondary to ITP -much improved with IVIg Code(s): R53.1 - WEAKNESS (3) Acute ITP Assessment/Plan: -hematology following -day 4 of IVIg -continue solumedrol Code(s): D69.3 - IMMUNE THROMBOCYTOPENIC PURPURA (4) CKD stage 3 secondary to diabetes Assessment/Plan: -worsened -appreciate nephrology consult Code(s): E11.22 - TYPE 2 DIABETES MELLITUS W DIABETIC CHRONIC KIDNEY DISEASE; N18.3 - CHRONIC KIDNEY DISEASE, STAGE 3 (MODERATE) (5) Chronic pain Assessment/Plan: -continue MS contin -monitor for need to decrease -make xanax prn Code(s): G89.29 - OTHER CHRONIC PAIN Qualifiers: Chronic pain type: chronic pain syndrome Qualified Code(s): G89.4 - Chronic pain syndrome (6) Diabetes mellitus Assessment/Plan: -continue home regimen -FSBS and SSI Code(s): E11.9 - TYPE 2 DIABETES MELLITUS WITHOUT COMPLICATIONS (7) HTN (hypertension) Assessment/Plan: -continue amlodipine Code(s): I10 - ESSENTIAL (PRIMARY) HYPERTENSION Qualifiers: (8) Anemia -appreciate GI assistance -continue iron infusion
[2017-08-21] MEDS: DEXAMETHASONE SOD PHOSPHATE 10 MG/1 ML VIAL IVPB SCH (12:51)
[2017-08-21] MEDS: ACETAMINOPHEN 325 MG TABLET (FP) PO SCH (12:52)
[2017-08-21] MEDS: IMMUNE GLOB,GAM CAPRYLATE(IGG) 40 GM IVPB SCH (13:42)
[2017-08-21] MEDS: ASCORBIC ACID 500 MG TABLET (FP) PO SCH (13:43)
[2017-08-21] MEDS: SENNOSIDES 8.6MG TABLET (FP) PO SCH ×2 (14:06→21:57)
[2017-08-21] MEDS ORDERED: SODIUM CHLORIDE 1,000 ML IV SCH (14:30)
--- NOTE | 2017-08-21 18:44 | PN ---
Progress Note (short form) - Note Progress Note: Renal Follow up for ARLETTE on CKD Pt seen and examined at the bedside no acute complaints sob is improved no chest pain, abd pain, N/V/D making urine leg swelling is improved Vital Signs Temperature 98.3 F 08/21/17 14:27 Pulse Rate 72 08/21/17 17:50 Respiratory Rate 20 08/21/17 17:50 Blood Pressure 145/60 08/21/17 17:50 O2 Sat by Pulse Oximetry (%) 98 08/21/17 09:00 Intake & Output 08/18/17 08/19/17 08/20/17 08/21/17 23:59 23:59 23:59 23:59 Intake Total 1532 583 029 5412.4 Output Total 400 Balance 1532 123 492 5522.4 NAD on NC O2 MMM, No JVD, neck supple RRR, no M/R CTA in anterior exam Abd obese, midl tenderness LUQ 1+ LE edmea, no clubbing or cyanosis no neurologic defects no bladder distension CBC, BMP 08/21/17 06:15 08/21/17 06:15 Current Medications Acetaminophen (Tylenol -) 650 mg PO DAILY [facility] Stop: 08/22/17 10:01 Last Admin: 08/21/17 12:52 Dose: 650 mg Albuterol Sulfate (Ventolin Hfa Inhaler -) 2 puff IH Q4H PRN PRN Reason: ASTHMA Allopurinol (Zyloprim -) 150 mg PO DAILY [facility] Last Admin: 08/21/17 09:32 Dose: 150 mg Alprazolam (Xanax -) 0.25 mg PO Q8H PRN PRN Reason: ANXIETY Amlodipine Besylate (Norvasc -) 5 mg PO DAILY [facility] Last Admin: 08/21/17 09:31 Dose: 5 mg Ascorbic Acid (Vitamin C -) 1,000 mg PO DAILY [facility] Last Admin: 08/21/17 13:43 Dose: Not Given Calcium Carbonate (Calcium Carbonate -) 650 mg PO BID [facility] Last Admin: 08/21/17 09:33 Dose: 650 mg Dexamethasone Sodium Phosphate (Decadron Injection -) 20 mg IVPB DAILY [facility] Stop: 08/22/17 10:01 Last Admin: 08/21/17 12:51 Dose: 20 mg Diphenhydramine HCl (Benadryl Injection -) 25 mg IVPB DAILY [facility] Stop: 08/22/17 10:01 Last Admin: 08/21/17 12:52 Dose: 25 mg Docusate Sodium (Colace -) 100 mg PO BID [facility] Last Admin: 08/21/17 09:31 Dose: 100 mg Ferrous Sulfate (Feosol -) 325 mg PO DAILY [facility] Last Admin: 08/21/17 09:31 Dose: 325 mg Glipizide (Glucotrol Xl -) 10 mg PO BIDAC [facility] Last Admin: 08/21/17 16:46 Dose: 10 mg Immune Globulin (Gamunex-C) 400 mls @ 100 mls/hr IVPB DAILY [facility] Stop: 08/22/17 13:59 Last Admin: 08/21/17 13:42 Dose: 100 mls/hr Iron Sucrose 200 mg/ Sodium (Chloride) 100 mls @ 100 mls/hr IVPB DAILY@0800 [facility] Last Admin: 08/21/17 09:31 Dose: 100 mls/hr Sodium Chloride (Normal Saline -) 1,000 mls @ 83 mls/hr IV ASDIR [facility] Stop: 08/22/17 02:29 Last Admin: 08/21/17 16:08 Dose: 83 mls/hr Insulin Aspart (Novolog Vial Sliding Scale -) 1 vial SQ ACHS [facility] PRN Reason: Protocol Last Admin: 08/21/17 16:45 Dose: 2 units Morphine Sulfate (Ms Contin -) 60 mg PO TID [facility] Last Admin: 08/21/17 14:06 Dose: 60 mg Morphine Sulfate (Msir -) 15 mg PO Q6H PRN PRN Reason: PAIN LEVEL 4 - 6 Last Admin: 08/20/17 22:34 Dose: 15 mg Non-Formulary Medication (Ascorbic Acid [Vitamin C]) 1,000 mg PO DAILY [facility] Last Admin: 08/21/17 09:39 Dose: 1,000 mg Pantoprazole Sodium (Protonix -) 40 mg PO DAILY [facility] Last Admin: 08/21/17 09:31 Dose: 40 mg Senna (Senna -) 1 tab PO BID [facility] Last Admin: 08/21/17 14:06 Dose: 1 tab Sertraline HCl (Zoloft -) 25 mg PO DAILY [facility] Last Admin: 08/21/17 09:31 Dose: 25 mg Sitagliptin Phosphate (Januvia -) 50 mg PO ACBK [facility] Last Admin: 08/21/17 06:20 Dose: 50 mg A/p 66 year old woman with PMhx of CKD stage 3, hx of staghorn calculi with mild hydronephrosis, ITP, Mantle Cell lymphoma, UTI's, NIDDM, Hypertension who presented with weakness, lethargy and to have recurrent worsening thrombocytopneia and developed ARLETTE during the hospitalization with Cr of 1.6. #ARLETTE on CKD Cr worse today then yesterday US showed mild left sided hydronephrosis, prior obstruction was on right would recommend urology evaluation would start isotonic fluids for 12 hours and monitor renal function IVIG may be cause of injury hold diuretics for now trend BUN/Cr dialy no indication for [employer] at the present time dose all meds for CrCl less then 30 #Hypertension BP is slightly above goal can titrate amlodpine to 10mg if BP consistently > 140 systolic Thank you Dash Padron DO
[2017-08-21] MEDS: ALPRAZolam 0.25 MG TABLET PO PRN (20:11)
--- NOTE | 2017-08-21 22:31 | PN ---
Progress Note (short form) - Note Progress Note: PAtient seen and examined Denies any complaints Last Vital Signs Temp Pulse Resp BP Pulse Ox 98.3 F 72 20 145/60 98 08/21/17 14:27 08/21/17 17:50 08/21/17 17:50 08/21/17 17:50 08/21/17 09:00 Cor: RSR, No murmurs, No gallops Lungs: Clear to P&A Abd: Soft, Normal bowel sounds, No organomegaly Ext:No significant edema Abnormal Lab Results 08/21/17 08/21/17 06:15 06:15 Hgb 8.2 L Hct 27.2 L MCV 74.8 L MCH 22.4 L MCHC 29.9 L RDW 20.7 H Plt Count 100 L D MPV 11.3 H D Neutrophils % 87.5 H Lymphocytes % 6.7 L D Sodium 135 L Chloride 96 L BUN 38 H Creatinine 1.9 H Random Glucose 203 H Calcium 8.4 L Magnesium 2.7 H AST 13 L ALT 10 L Total Protein 9.1 H Albumin 3.0 L Home Medication List Medication Instructions Recorded Confirmed Type Sertraline HCl [Zoloft -] 25 mg PO DAILY 08/28/14 08/17/17 History Morphine Sulfate 15 mg PO QID PRN 03/31/16 08/17/17 History Albuterol Sulfate Inhaler - 1 - 2 inh PO PRN 08/09/16 08/17/17 History [Ventolin HFA Inhaler -] Calcium Carbonate 648 mg PO BID 08/09/16 08/17/17 History Sitagliptin Phosphate [Januvia] 50 mg PO DAILY 03/18/17 08/17/17 History Acetaminophen [Tylenol .Regular 650 mg PO PRN 05/26/17 08/17/17 History Strength -] Ascorbic Acid [Vitamin C] 1,000 mg PO DAILY 08/17/17 08/17/17 History Ferrous Sulfate 325 mg PO DAILY 08/17/17 08/17/17 History Furosemide [Lasix] 40 mg PO DAILY 08/17/17 08/17/17 History Active Medications Generic Name Dose Route Start Last Admin Trade Name Freq PRN Reason Stop Dose Admin Acetaminophen 650 mg 08/18/17 10:00 08/21/17 12:52 Tylenol - PO 08/22/17 10:01 650 mg DAILY [facility] Administration Albuterol Sulfate 2 puff 08/17/17 15:49 Ventolin Hfa Inhaler - IH Q4H PRN ASTHMA Allopurinol 150 mg 08/18/17 10:00 08/21/17 09:32 Zyloprim - PO 150 mg DAILY [facility] Administration Alprazolam 0.25 mg 08/21/17 11:49 08/21/17 20:11 Xanax - PO 0.25 mg Q8H PRN Administration ANXIETY Amlodipine Besylate 5 mg 08/18/17 10:00 08/21/17 09:31 Norvasc - PO 5 mg DAILY [facility] Administration Ascorbic Acid 1,000 mg 08/18/17 10:00 08/21/17 13:43 Vitamin C - PO Not Given DAILY [facility] Calcium Carbonate 650 mg 08/17/17 22:00 08/21/17 21:57 Calcium Carbonate - PO 650 mg BID [facility] Administration Dexamethasone Sodium Phosphate 20 mg 08/18/17 10:00 08/21/17 12:51 Decadron Injection - IVPB 08/22/17 10:01 20 mg DAILY [facility] Administration Diphenhydramine HCl 25 mg 08/18/17 10:00 08/21/17 12:52 Benadryl Injection - IVPB 08/22/17 10:01 25 mg DAILY [facility] Administration Docusate Sodium 100 mg 08/17/17 22:00 08/21/17 21:57 Colace - PO 100 mg BID [facility] Administration Ferrous Sulfate 325 mg 08/18/17 10:00 08/21/17 09:31 Feosol - PO 325 mg DAILY [facility] Administration Glipizide 10 mg 08/17/17 16:30 08/21/17 16:46 Glucotrol Xl - PO 10 mg BIDAC [facility] Administration Immune Globulin 400 mls @ 100 mls/hr 08/18/17 10:00 08/21/17 13:42 Gamunex-C IVPB 08/22/17 13:59 100 mls/hr DAILY [facility] Administration Iron Sucrose 200 mg/ Sodium 100 mls @ 100 mls/hr 08/19/17 12:45 08/21/17 09: 31 Chloride IVPB 100 mls/hr DAILY@0800 [facility] Administration Insulin Aspart 1 vial 08/18/17 22:00 08/21/17 21:57 Novolog Vial Sliding Scale - SQ 6 units ACHS [facility] Administration Protocol Morphine Sulfate 60 mg 08/17/17 14:00 08/21/17 21:56 Ms Contin - PO 60 mg TID [facility] Administration Morphine Sulfate 15 mg 08/20/17 19:48 08/22/17 01:41 Msir - PO 15 mg Q6H PRN Administration PAIN LEVEL 4 - 6 Non-Formulary Medication 1,000 mg 08/18/17 10:00 08/21/17 09:39 Ascorbic Acid [Vitamin C] PO 1,000 mg DAILY [facility] Administration Pantoprazole Sodium 40 mg 08/18/17 10:00 08/21/17 09:31 Protonix - PO 40 mg DAILY [facility] Administration Senna 1 tab 08/21/17 12:00 08/21/17 21:57 Senna - PO 1 tab BID [facility] Administration Sertraline HCl 25 mg 08/18/17 10:00 08/21/17 09:31 Zoloft - PO 25 mg DAILY [facility] Administration Sitagliptin Phosphate 50 mg 08/18/17 07:00 08/21/17 06:20 Januvia - PO 50 mg ACBK [facility] Administration A/P 66 y/o patient with ITP/mantle cell lymphoma, h/o antiphospholipids, nephrolithiasis, DM, comes in with recurrent ITP ( platelet count nl 10days back ) and worsening anemia, exertional dyspnea, fatigue No active bleeding ITP : frequent recurrences PET-CT 06/29 showed small nodes mesenteric, external iliac with low SUVs ? inflammatory redosing IVIG day n. 4 monitir cbc/cmp anemia--may need transfusion on iv iron elevated cr--urology consult iv fluids
[2017-08-22 00:11] LABS: COMPLEMENT TOTAL(CH50) 52 U/mL (42-60)
[2017-08-22] MEDS: morphine SULFATE IMMEDIATE RELEASE 30 MG TAB PO PRN ×2 (01:41→09:46)
[2017-08-22] MEDS: ALPRAZolam 0.25 MG TABLET PO PRN ×3 (04:14→23:36)
[2017-08-22] MEDS ORDERED: PT OWN MED DRAWER 7, Y5N ONE ×3 (06:43→21:49)
[2017-08-22] MEDS: glipiZIDE-XL 10 MG TAB.ER.24 (FP) PO SCH ×2 (06:48→16:20)
[2017-08-22] MEDS: sitaGLIPtin PHOSPHATE 50 MG TABLET PO SCH (06:48)
[2017-08-22] MEDS: morphine SO4 SUSTAINED ACTING 30 MG TABLET.SA PO SCH ×3 (06:48→21:59)
[2017-08-22] MEDS: INSULIN SLIDING SCALE (NOVOLOG) 1 VIAL SQ SCH ×4 (06:49→22:01)
[2017-08-22 07:48] LABS: BASO % 0.4 % (0-2.0); HEMATOCRIT 26.7 % (32.4-45.2); LYMPH % 6.7 % (8-40); MCH 22.5 pg (25.7-33.7); MEAN CELL VOLUME 75.1 fl (80-96); MEAN PLT VOLUME 10.2 fl (7.5-11.1); MONO % 10.4 % (3.8-10.2); NEUT % 82.5 % (42.8-82.8); PLATELET COUNT 133 K/MM3 (134-434); RBC 3.56 M/mm3 (3.60-5.2); RDW 20.5 % (11.6-15.6); WHITE BLOOD COUNT 8.2 K/mm3 (4.0-10.0)
[2017-08-22 08:15] LABS: ANION GAP 7 (8-16); BLOOD UREA NITROGEN 38 mg/dL (7-18); CALCIUM 7.9 mg/dL (8.5-10.1); CHLORIDE 100 mmol/L (98-107); CO2 29 mmol/L (21-32); GLUCOSE,RANDOM 178 mg/dL (74-106); MAGNESIUM 2.5 mg/dL (1.8-2.4); PHOSPHOROUS 3.1 mg/dL (2.5-4.9); POTASSIUM 4.5 mmol/L (3.5-5.1); SODIUM 136 mmol/L (136-145)
[2017-08-22] MEDS: amLODIPine BESYLATE 5 MG TABLET (FP) PO SCH (09:29)
[2017-08-22] MEDS: ASCORBIC ACID 500 MG TABLET (FP) PO SCH (09:30)
[2017-08-22] MEDS: FERROUS SO4 325 MG TABLET (FP) PO SCH (09:31)
[2017-08-22] MEDS: PANTOPRAZOLE 40 MG TABLET (FP) PO SCH (09:31)
[2017-08-22] MEDS: IRON SUCROSE INJECTION 200 MG in SODIUM CHLORIDE 90 ML IVPB SCH (09:31)
[2017-08-22] MEDS: DOCUSATE SODIUM 100 MG CAPSULE (FP) PO SCH ×2 (09:31→21:59)
[2017-08-22] MEDS: CALCIUM CARBONATE 650 MG TABLET PO SCH ×2 (09:32→22:05)
[2017-08-22] MEDS: ASCORBIC ACID 1000 MG PO SCH (09:32)
[2017-08-22] MEDS: SERTRALINE HCL 25 MG TABLET (FP) PO SCH (10:02)
[2017-08-22] MEDS: SENNOSIDES 8.6MG TABLET (FP) PO SCH ×2 (10:02→21:59)
[2017-08-22] MEDS: ALLOPURINOL 100 MG TABLET (FP) PO SCH (10:02)
--- NOTE | 2017-08-22 10:47 | PN ---
Progress Note (short form) - Note Progress Note: PULMONARY More dyspneic today. Started on IVF yesterday. +nonproductive cough without wheezing. Last Vital Signs Temp Pulse Resp BP Pulse Ox 98.2 F 82 20 125/72 99 08/22/17 06:00 08/22/17 06:00 08/22/17 06:00 08/22/17 06:00 08/21/17 21:00 Gen: NAD at rest Heart: RRR Lung: decreased breath sounds at the bases, left base rales Abd: soft, nontender Ext: + edema CBC, BMP 08/22/17 06:00 08/22/17 06:00 Active Medications Albuterol Sulfate (Ventolin Hfa Inhaler -) 2 puff IH Q4H PRN PRN Reason: ASTHMA Allopurinol (Zyloprim -) 150 mg PO DAILY [facility] Last Admin: 08/21/17 09:32 Dose: 150 mg Alprazolam (Xanax -) 0.25 mg PO Q8H PRN PRN Reason: ANXIETY Last Admin: 08/22/17 04:14 Dose: 0.25 mg Amlodipine Besylate (Norvasc -) 5 mg PO DAILY [facility] Last Admin: 08/22/17 09:29 Dose: 5 mg Ascorbic Acid (Vitamin C -) 1,000 mg PO DAILY [facility] Last Admin: 08/22/17 09:30 Dose: 500 mg Calcium Carbonate (Calcium Carbonate -) 650 mg PO BID [facility] Last Admin: 08/22/17 09:32 Dose: 650 mg Docusate Sodium (Colace -) 100 mg PO BID [facility] Last Admin: 08/22/17 09:31 Dose: 100 mg Ferrous Sulfate (Feosol -) 325 mg PO DAILY [facility] Last Admin: 08/22/17 09:31 Dose: 325 mg Glipizide (Glucotrol Xl -) 10 mg PO BIDAC [facility] Last Admin: 08/22/17 06:48 Dose: 10 mg Iron Sucrose 200 mg/ Sodium (Chloride) 100 mls @ 100 mls/hr IVPB DAILY@0800 [facility] Last Admin: 08/22/17 09:31 Dose: 100 mls/hr Insulin Aspart (Novolog Vial Sliding Scale -) 1 vial SQ ACHS [facility] PRN Reason: Protocol Last Admin: 08/22/17 06:49 Dose: 2 units Morphine Sulfate (Ms Contin -) 60 mg PO TID [facility] Last Admin: 08/22/17 06:48 Dose: 60 mg Morphine Sulfate (Msir -) 15 mg PO Q6H PRN PRN Reason: PAIN LEVEL 4 - 6 Last Admin: 08/22/17 09:46 Dose: 15 mg Non-Formulary Medication (Ascorbic Acid [Vitamin C]) 1,000 mg PO DAILY [facility] Last Admin: 08/22/17 09:32 Dose: 1,000 mg Pantoprazole Sodium (Protonix -) 40 mg PO DAILY [facility] Last Admin: 08/22/17 09:31 Dose: 40 mg Senna (Senna -) 1 tab PO BID [facility] Last Admin: 08/21/17 21:57 Dose: 1 tab Sertraline HCl (Zoloft -) 25 mg PO DAILY [facility] Last Admin: 08/21/17 09:31 Dose: 25 mg Sitagliptin Phosphate (Januvia -) 50 mg PO ACBK [facility] Last Admin: 08/22/17 06:48 Dose: 50 mg A/P Recurrent ITP Left Diaphragmatic Hernia Acute on Chronic Renal Failure Interstitial Lung Disease HTN DM h/o Lymphoma - will get CXR to r/o volume overload - consider decreasing or stopping IVF - monitor urine output, creatinine - continue decadron, IVIG per heme/onc - O2 to keep SpO2 >90% - inhaled bronchodilators - monitor CBC - DVT prophylaxis
--- NOTE | 2017-08-22 11:16 | PN ---
Progress Note, Physician Chief Complaint: Events noted Complains of dyspnea intermittently Denies chest pain or palpitations History of Present Illness: Patient was seen and examined. Awake and alert. Chart was reviewed As outlined - Current Medication List Current Medications: Active Medications Albuterol Sulfate (Ventolin Hfa Inhaler -) 2 puff IH Q4H PRN PRN Reason: ASTHMA Allopurinol (Zyloprim -) 150 mg PO DAILY [facility] Last Admin: 08/21/17 09:32 Dose: 150 mg Alprazolam (Xanax -) 0.25 mg PO Q8H PRN PRN Reason: ANXIETY Last Admin: 08/22/17 04:14 Dose: 0.25 mg Amlodipine Besylate (Norvasc -) 5 mg PO DAILY [facility] Last Admin: 08/22/17 09:29 Dose: 5 mg Ascorbic Acid (Vitamin C -) 1,000 mg PO DAILY [facility] Last Admin: 08/22/17 09:30 Dose: 500 mg Calcium Carbonate (Calcium Carbonate -) 650 mg PO BID [facility] Last Admin: 08/22/17 09:32 Dose: 650 mg Docusate Sodium (Colace -) 100 mg PO BID [facility] Last Admin: 08/22/17 09:31 Dose: 100 mg Ferrous Sulfate (Feosol -) 325 mg PO DAILY [facility] Last Admin: 08/22/17 09:31 Dose: 325 mg Glipizide (Glucotrol Xl -) 10 mg PO BIDAC [facility] Last Admin: 08/22/17 06:48 Dose: 10 mg Iron Sucrose 200 mg/ Sodium (Chloride) 100 mls @ 100 mls/hr IVPB DAILY@0800 [facility] Last Admin: 08/22/17 09:31 Dose: 100 mls/hr Insulin Aspart (Novolog Vial Sliding Scale -) 1 vial SQ ACHS [facility] PRN Reason: Protocol Last Admin: 08/22/17 06:49 Dose: 2 units Morphine Sulfate (Ms Contin -) 60 mg PO TID [facility] Last Admin: 08/22/17 06:48 Dose: 60 mg Morphine Sulfate (Msir -) 15 mg PO Q6H PRN PRN Reason: PAIN LEVEL 4 - 6 Last Admin: 08/22/17 09:46 Dose: 15 mg Non-Formulary Medication (Ascorbic Acid [Vitamin C]) 1,000 mg PO DAILY [facility] Last Admin: 08/22/17 09:32 Dose: 1,000 mg Pantoprazole Sodium (Protonix -) 40 mg PO DAILY [facility] Last Admin: 08/22/17 09:31 Dose: 40 mg Senna (Senna -) 1 tab PO BID [facility] Last Admin: 08/21/17 21:57 Dose: 1 tab Sertraline HCl (Zoloft -) 25 mg PO DAILY [facility] Last Admin: 08/21/17 09:31 Dose: 25 mg Sitagliptin Phosphate (Januvia -) 50 mg PO ACBK [facility] Last Admin: 08/22/17 06:48 Dose: 50 mg - Objective Vital Signs: Vital Signs Temperature 98.2 F 08/22/17 06:00 Pulse Rate 82 08/22/17 06:00 Respiratory Rate 20 08/22/17 06:00 Blood Pressure 125/72 08/22/17 06:00 O2 Sat by Pulse Oximetry (%) 99 08/21/17 21:00 Constitutional: Yes: Well Nourished, Obese Eyes: Yes: PERRL HENT: Yes: Atraumatic Neck: Yes: Supple Cardiovascular: Yes: Regular Rate and Rhythm, S1, S2 Respiratory: Yes: Diminished (left lung field) Gastrointestinal: Yes: Normal Bowel Sounds, Soft, Abdomen, Obese. No: Tenderness Edema: Yes Edema: LLE: 1+, RLE: 1+ Labs: CBC, BMP 08/22/17 06:00 08/22/17 06:00 Problem List - Problems (1) SOB (shortness of breath) Code(s): R06.02 - SHORTNESS OF BREATH (2) Thrombocytopenia Code(s): D69.6 - THROMBOCYTOPENIA, UNSPECIFIED (3) Weakness Code(s): R53.1 - WEAKNESS (4) Acute ITP Code(s): D69.3 - IMMUNE THROMBOCYTOPENIC PURPURA (5) Anemia Code(s): D64.9 - ANEMIA, UNSPECIFIED Qualifiers: Anemia type: unspecified type Qualified Code(s): D64.9 - Anemia, unspecified (6) CKD stage 3 secondary to diabetes Code(s): E11.22 - TYPE 2 DIABETES MELLITUS W DIABETIC CHRONIC KIDNEY DISEASE; N18.3 - CHRONIC KIDNEY DISEASE, STAGE 3 (MODERATE) (7) HTN (hypertension) Code(s): I10 - ESSENTIAL (PRIMARY) HYPERTENSION Qualifiers: Hypertension type: essential hypertension Qualified Code(s): I10 - Essential (primary) hypertension (8) Hyperkalemia Code(s): E87.5 - HYPERKALEMIA (9) ITP (idiopathic thrombocytopenic purpura) Code(s): D69.3 - IMMUNE THROMBOCYTOPENIC PURPURA (10) Mantle cell lymphoma Code(s): C83.10 - MANTLE CELL LYMPHOMA, UNSPECIFIED SITE (11) Staghorn kidney stones Code(s): N20.0 - CALCULUS OF KIDNEY (12) T2DM (type 2 diabetes mellitus) Code(s): E11.9 - TYPE 2 DIABETES MELLITUS WITHOUT COMPLICATIONS Assessment/Plan 1. Recurrent ITP h/o splenectomy and antiphospholipids 2. Recurrent dyspnea on exertion after failure of left diaphragmatic hernia repair/mesh 3. HTN 4. NIDDM 5. History of Mantle Cell Lymphoma 6. Acute on CKD 3, staghorn calculi and hydronephrosis 7. Chronic interstitial lung disease PLAN: 1. Resume Lisinopril 10 mg QD once renal function stabilizes. Continue Norvasc 5 mg QD 2. DVT and GI prophylaxis 3. Steroids and IVIG course with monitoring CBC 4. Consideration for re-op diaphragmatic hernia repair after recovery of platelet counts and endoscopy/colonoscopy as per GI service. Specifics to follow 5. O2 and bronchodilators as needed 6. Monitor I/Os and renal function Further plans are to follow Abdon Salinas MD
[2017-08-22] MEDS: ACETAMINOPHEN 325 MG TABLET (FP) PO SCH (11:20)
[2017-08-22] MEDS: DEXAMETHASONE SOD PHOSPHATE 10 MG/1 ML VIAL IVPB SCH (11:20)
--- NOTE | 2017-08-22 12:55 | PN ---
Progress Note, Physician Chief Complaint: Ms Painting today says she is feeling well. No cp, sob at rest, or n/v. Having dyspnea on exertion. - Current Medication List Current Medications: Active Medications Albuterol Sulfate (Ventolin Hfa Inhaler -) 2 puff IH Q4H PRN PRN Reason: ASTHMA Allopurinol (Zyloprim -) 150 mg PO DAILY [facility] Last Admin: 08/22/17 10:02 Dose: 150 mg Alprazolam (Xanax -) 0.5 mg PO Q8H PRN PRN Reason: ANXIETY Amlodipine Besylate (Norvasc -) 5 mg PO DAILY [facility] Last Admin: 08/22/17 09:29 Dose: 5 mg Ascorbic Acid (Vitamin C -) 1,000 mg PO DAILY [facility] Last Admin: 08/22/17 09:30 Dose: 500 mg Calcium Carbonate (Calcium Carbonate -) 650 mg PO BID [facility] Last Admin: 08/22/17 09:32 Dose: 650 mg Docusate Sodium (Colace -) 100 mg PO BID [facility] Last Admin: 08/22/17 09:31 Dose: 100 mg Ferrous Sulfate (Feosol -) 325 mg PO DAILY [facility] Last Admin: 08/22/17 09:31 Dose: 325 mg Glipizide (Glucotrol Xl -) 10 mg PO BIDAC [facility] Last Admin: 08/22/17 06:48 Dose: 10 mg Iron Sucrose 200 mg/ Sodium (Chloride) 100 mls @ 100 mls/hr IVPB DAILY@0800 [facility] Last Admin: 08/22/17 09:31 Dose: 100 mls/hr Insulin Aspart (Novolog Vial Sliding Scale -) 1 vial SQ ACHS [facility] PRN Reason: Protocol Last Admin: 08/22/17 11:54 Dose: Not Given Morphine Sulfate (Ms Contin -) 60 mg PO TID [facility] Last Admin: 08/22/17 06:48 Dose: 60 mg Morphine Sulfate (Msir -) 15 mg PO Q6H PRN PRN Reason: PAIN LEVEL 4 - 6 Last Admin: 08/22/17 09:46 Dose: 15 mg Non-Formulary Medication (Ascorbic Acid [Vitamin C]) 1,000 mg PO DAILY [facility] Last Admin: 08/22/17 09:32 Dose: 1,000 mg Pantoprazole Sodium (Protonix -) 40 mg PO DAILY [facility] Last Admin: 08/22/17 09:31 Dose: 40 mg Senna (Senna -) 1 tab PO BID [facility] Last Admin: 08/22/17 10:02 Dose: 1 tab Sertraline HCl (Zoloft -) 25 mg PO DAILY [facility] Last Admin: 08/22/17 10:02 Dose: 25 mg Sitagliptin Phosphate (Januvia -) 50 mg PO ACBK [facility] Last Admin: 08/22/17 06:48 Dose: 50 mg - Objective Vital Signs: Vital Signs Temperature 36.8 C 08/22/17 06:00 Pulse Rate 82 08/22/17 06:00 Respiratory Rate 20 08/22/17 06:00 Blood Pressure 125/72 08/22/17 06:00 O2 Sat by Pulse Oximetry (%) 99 08/21/17 21:00 Constitutional: Yes: No Distress, Calm, Obese Cardiovascular: Yes: Regular Rate and Rhythm. No: Gallop, Murmur, Rub Respiratory: Yes: Regular, CTA Bilaterally, On Nasal O2. No: Rales, Rhonchi, Wheezes Gastrointestinal: Yes: Normal Bowel Sounds, Soft. No: Distention, Tenderness Extremities: Yes: WNL Edema: Yes Edema: LLE: 2+, RLE: 2+ Labs: CBC, BMP 08/22/17 06:00 08/22/17 06:00 Assessment/Plan (1) Hypoxia Assessment/Plan: -possibly secondary to diaphragmatic hernia -outpatient evaluation for repair -appreciate pulmonary assistance -continue current management -may need home oxygen, will obtain pre and post prior to discharge Code(s): R09.02 - HYPOXEMIA (2) Weakness Assessment/Plan: -secondary to ITP -resolved Code(s): R53.1 - WEAKNESS (3) Acute ITP Assessment/Plan: -hematology following -IVIg held secondary to renal function Code(s): D69.3 - IMMUNE THROMBOCYTOPENIC PURPURA (4) CKD stage 3 secondary to diabetes Assessment/Plan: -continue to worsen -nephrology following -IVIg stopped Code(s): E11.22 - TYPE 2 DIABETES MELLITUS W DIABETIC CHRONIC KIDNEY DISEASE; N18.3 - CHRONIC KIDNEY DISEASE, STAGE 3 (MODERATE) (5) Chronic pain Assessment/Plan: -continue MS contin -continue prn xanax Code(s): G89.29 - OTHER CHRONIC PAIN Qualifiers: Chronic pain type: chronic pain syndrome Qualified Code(s): G89.4 - Chronic pain syndrome (6) Diabetes mellitus Assessment/Plan: -continue home regimen -FSBS and SSI Code(s): E11.9 - TYPE 2 DIABETES MELLITUS WITHOUT COMPLICATIONS (7) HTN (hypertension) Assessment/Plan: -continue amlodipine -may be contributing to lower extremity edema Code(s): I10 - ESSENTIAL (PRIMARY) HYPERTENSION Qualifiers: (8) Anemia -appreciate GI assistance -continue iron infusion
--- NOTE | 2017-08-22 17:06 | PN ---
Progress Note (short form) - Note Progress Note: Patient seen and improved Less Short of breath. Last day of Gamma globulin held in view of rising creatinine. IV discontinued . Signs of fluid overload with LE edema. Last Vital Signs Temp Pulse Resp BP Pulse Ox 97.9 F 65 20 129/59 99 08/22/17 15:23 08/22/17 15:23 08/22/17 15:23 08/22/17 15:23 08/21/17 21:00 HEENT: DENEEN, EOM Intact Oropharynx: No thrush, No mucositis, poor dentition Cor: RSR, No murmurs, No gallops Lungs: Diminished breath sounds bilaterally Abd: Soft, Normal bowel sounds, No organomegaly, ventral hernia Skin: No rashes, Integument intact CBC, BMP 08/22/17 06:00 08/22/17 06:00 Current Medications Generic Name Dose Route Start Last Admin Trade Name Freq PRN Reason Stop Dose Admin Albuterol Sulfate 2 puff 08/17/17 15:49 Ventolin Hfa Inhaler - IH Q4H PRN ASTHMA Allopurinol 150 mg 08/18/17 10:00 08/22/17 10:02 Zyloprim - PO 150 mg DAILY [facility] Administration Alprazolam 0.5 mg 08/22/17 12:54 08/22/17 14:54 Xanax - PO 0.5 mg Q8H PRN Administration ANXIETY Amlodipine Besylate 5 mg 08/18/17 10:00 08/22/17 09:29 Norvasc - PO 5 mg DAILY [facility] Administration Ascorbic Acid 1,000 mg 08/18/17 10:00 08/22/17 09:30 Vitamin C - PO 500 mg DAILY [facility] Administration Calcium Carbonate 650 mg 08/17/17 22:00 08/22/17 09:32 Calcium Carbonate - PO 650 mg BID [facility] Administration Docusate Sodium 100 mg 08/17/17 22:00 08/22/17 09:31 Colace - PO 100 mg BID [facility] Administration Ferrous Sulfate 325 mg 08/18/17 10:00 08/22/17 09:31 Feosol - PO 325 mg DAILY [facility] Administration Glipizide 10 mg 08/17/17 16:30 08/22/17 06:48 Glucotrol Xl - PO 10 mg BIDAC [facility] Administration Iron Sucrose 200 mg/ Sodium 100 mls @ 100 mls/hr 08/19/17 12:45 08/22/17 09: 31 Chloride IVPB 08/23/17 10:00 100 mls/hr DAILY@0800 [facility] Administration Insulin Aspart 1 vial 08/18/17 22:00 08/22/17 16:41 Novolog Vial Sliding Scale - SQ Not Given ACHS [facility] Protocol Morphine Sulfate 60 mg 08/17/17 14:00 08/22/17 14:49 Ms Contin - PO 60 mg TID [facility] Administration Morphine Sulfate 15 mg 08/20/17 19:48 08/22/17 09:46 Msir - PO 15 mg Q6H PRN Administration PAIN LEVEL 4 - 6 Non-Formulary Medication 1,000 mg 08/18/17 10:00 08/22/17 09:32 Ascorbic Acid [Vitamin C] PO 1,000 mg DAILY [facility] Administration Pantoprazole Sodium 40 mg 08/18/17 10:00 08/22/17 09:31 Protonix - PO 40 mg DAILY [facility] Administration Senna 1 tab 08/21/17 12:00 08/22/17 10:02 Senna - PO 1 tab BID [facility] Administration Sertraline HCl 25 mg 08/18/17 10:00 08/22/17 10:02 Zoloft - PO 25 mg DAILY [facility] Administration Sitagliptin Phosphate 50 mg 08/18/17 07:00 08/22/17 06:48 Januvia - PO 50 mg ACBK [facility] Administration Impression: ITP Mantle cell lymphoma Fe++ deficiency Diabetes Mellitus HBP Steroids as out patient IV Venofer as out patient Will give both in AM. Need careful monitoring of CBC in view of Fe++ deficiency and GI bleeding.
[2017-08-22] MEDS ORDERED: DEXAMETHASONE SOD PHOSPHATE 10 MG/1 ML VIAL IVPB ONE (17:15)
--- NOTE | 2017-08-22 18:34 | PN ---
Progress Note (short form) - Note Progress Note: Renal Follow up for ARLETTE on CKD Pt seen and examined at the bedside has some sob last night was on IVF until this am no N/V/D, making urine Vital Signs Temperature 97.9 F 08/22/17 15:23 Pulse Rate 65 08/22/17 15:23 Respiratory Rate 20 08/22/17 15:23 Blood Pressure 129/59 08/22/17 15:23 O2 Sat by Pulse Oximetry (%) 98 08/22/17 09:30 Intake & Output 08/19/17 08/20/17 08/21/17 08/22/17 23:59 23:59 23:59 23:59 Intake Total 524 060 5759.4 581 Output Total 400 Balance 980 273 4267.4 581 NAD on NC O2 RRR, no M/R CTA in anterior exam Abd obese, midl tenderness LUQ 1+ LE edmea, no clubbing or cyanosis CBC, BMP 08/22/17 06:00 08/22/17 06:00 Current Medications Albuterol Sulfate (Ventolin Hfa Inhaler -) 2 puff IH Q4H PRN PRN Reason: ASTHMA Allopurinol (Zyloprim -) 150 mg PO DAILY [facility] Last Admin: 08/22/17 10:02 Dose: 150 mg Alprazolam (Xanax -) 0.5 mg PO Q8H PRN PRN Reason: ANXIETY Last Admin: 08/22/17 14:54 Dose: 0.5 mg Amlodipine Besylate (Norvasc -) 5 mg PO DAILY [facility] Last Admin: 08/22/17 09:29 Dose: 5 mg Ascorbic Acid (Vitamin C -) 1,000 mg PO DAILY [facility] Last Admin: 08/22/17 09:30 Dose: 500 mg Calcium Carbonate (Calcium Carbonate -) 650 mg PO BID [facility] Last Admin: 08/22/17 09:32 Dose: 650 mg Docusate Sodium (Colace -) 100 mg PO BID [facility] Last Admin: 08/22/17 09:31 Dose: 100 mg Ferrous Sulfate (Feosol -) 325 mg PO DAILY [facility] Last Admin: 08/22/17 09:31 Dose: 325 mg Glipizide (Glucotrol Xl -) 10 mg PO BIDAC [facility] Last Admin: 08/22/17 06:48 Dose: 10 mg Iron Sucrose 200 mg/ Sodium (Chloride) 100 mls @ 100 mls/hr IVPB DAILY@0800 [facility] Stop: 08/23/17 11:00 Insulin Aspart (Novolog Vial Sliding Scale -) 1 vial SQ ACHS [facility] PRN Reason: Protocol Last Admin: 08/22/17 16:41 Dose: Not Given Morphine Sulfate (Ms Contin -) 60 mg PO TID [facility] Last Admin: 08/22/17 14:49 Dose: 60 mg Morphine Sulfate (Msir -) 15 mg PO Q6H PRN PRN Reason: PAIN LEVEL 4 - 6 Last Admin: 08/22/17 09:46 Dose: 15 mg Non-Formulary Medication (Ascorbic Acid [Vitamin C]) 1,000 mg PO DAILY [facility] Last Admin: 08/22/17 09:32 Dose: 1,000 mg Pantoprazole Sodium (Protonix -) 40 mg PO DAILY [facility] Last Admin: 08/22/17 09:31 Dose: 40 mg Senna (Senna -) 1 tab PO BID [facility] Last Admin: 08/22/17 10:02 Dose: 1 tab Sertraline HCl (Zoloft -) 25 mg PO DAILY [facility] Last Admin: 08/22/17 10:02 Dose: 25 mg Sitagliptin Phosphate (Januvia -) 50 mg PO ACBK [facility] Last Admin: 08/22/17 06:48 Dose: 50 mg A/p 66 year old woman with PMhx of CKD stage 3, hx of staghorn calculi with mild hydronephrosis, ITP, Mantle Cell lymphoma, UTI's, NIDDM, Hypertension who presented with weakness, lethargy and to have recurrent worsening thrombocytopneia and developed ARLETTE during the hospitalization with Cr of 1.6. #ARLETTE on CKD Renal function essentially unchanged despite IVF injury likely related to IVIG (pt now completed course) can hold any further IVF as pt with mild edema hold diuretics for now expect renal function to improve slowly mild hydronephrosis noted, unlikely to be contributing to injury but still would warrant urology eval #Hypertension BP is slightly above goal can titrate amlodpine to 10mg if BP consistently > 140 systolic Thank you Dash Padron DO
--- NOTE | 2017-08-22 19:27 | PN ---
GI Progress Note Subjective: GI NOte: I returned to again discuss GI evaluation for a source of anemia with Luzma's Hb hovering about 8 and with occult positive stool. I again discussed the risks of perforation and hemorrhage and difficulty of prepping. She has granted informed consents for both procedures. - Objective Vital Signs: Vital Signs Temperature 98.2 F 08/22/17 19:02 Pulse Rate 63 08/22/17 19:02 Respiratory Rate 20 08/22/17 19:02 Blood Pressure 136/67 08/22/17 19:02 O2 Sat by Pulse Oximetry (%) 98 08/22/17 09:30 Laboratory Tests 08/22/17 08/22/17 06:00 06:00 Hgb 8.0 L Plt Count 133 L D BUN 38 H Creatinine 2.0 H Constitutional: No Distress ...Auscultate: Yes: Normoactive Bowel Sounds ...Palpate: Yes: Soft, Other (nontender) Labs: CBC, BMP 08/22/17 06:00 08/22/17 06:00 Assessment/Plan Consent obtained for EGD and colonoscopy which I have scheduled for 08/25. Will give Golytely over two days as well as Relistor to relieve narcotic inhibition of the bowel. Problem List - Problems (1) Hypoxia Code(s): R09.02 - HYPOXEMIA (2) Weakness Code(s): R53.1 - WEAKNESS (3) Thrombocytopenia Code(s): D69.6 - THROMBOCYTOPENIA, UNSPECIFIED (4) SOB (shortness of breath) Code(s): R06.02 - SHORTNESS OF BREATH
[2017-08-23] MEDS: morphine SULFATE IMMEDIATE RELEASE 30 MG TAB PO PRN ×2 (03:18→18:49)
[2017-08-23] MEDS ORDERED: ONDANSETRON 4 MG/2 ML VIAL IVPUSH ONE (03:50)
[2017-08-23] MEDS ORDERED: PT OWN MED DRAWER 7, Y5N ONE ×3 (06:08→20:47)
[2017-08-23] MEDS: sitaGLIPtin PHOSPHATE 50 MG TABLET PO SCH (06:44)
[2017-08-23] MEDS: INSULIN SLIDING SCALE (NOVOLOG) 1 VIAL SQ SCH ×4 (06:44→22:04)
[2017-08-23] MEDS: glipiZIDE-XL 10 MG TAB.ER.24 (FP) PO SCH ×2 (06:44→16:28)
[2017-08-23] MEDS: morphine SO4 SUSTAINED ACTING 30 MG TABLET.SA PO SCH ×3 (06:45→22:03)
[2017-08-23] MEDS: ALPRAZolam 0.25 MG TABLET PO PRN ×2 (07:53→22:03)
[2017-08-23] MEDS ORDERED: ONDANSETRON 4 MG/2 ML VIAL IVPB PRN (08:14)
[2017-08-23 08:16] LABS: BASO % 0.1 % (0-2.0); HEMATOCRIT 28.4 % (32.4-45.2); HEMOGLOBIN 8.5 GM/dL (10.7-15.3); MCH 22.6 pg (25.7-33.7); MCHC 29.9 g/dl (32.0-36.0); MEAN CELL VOLUME 75.7 fl (80-96); MEAN PLT VOLUME 9.6 fl (7.5-11.1); MONO % 6.8 % (3.8-10.2); NEUT % 83.1 % (42.8-82.8); PLATELET COUNT 129 K/MM3 (134-434); RBC 3.75 M/mm3 (3.60-5.2); WHITE BLOOD COUNT 11.6 K/mm3 (4.0-10.0)
--- NOTE | 2017-08-23 08:21 | PN ---
Progress Note (short form) - Note Progress Note: Patient seen and examined Complains of some nausea No chest pain Some SOB Last Vital Signs Temp Pulse Resp BP Pulse Ox 98.2 F 81 20 157/75 98 08/23/17 05:00 08/23/17 05:00 08/23/17 05:00 08/23/17 05:00 08/22/17 21:00 HEENT: DENEEN, EOM Intact Oropharynx: No thrush, No mucositis Cor: RSR, No murmurs, No gallops Lungs: Clear to P&A Abd: Soft, Normal bowel sounds, No organomegaly Ext:No significant edema, some calf tenderness Skin: No rashes, Integument intact CBC, BMP 08/23/17 06:00 Current Medications Generic Name Dose Route Start Last Admin Trade Name Freq PRN Reason Stop Dose Admin Albuterol Sulfate 2 puff 08/17/17 15:49 Ventolin Hfa Inhaler - IH Q4H PRN ASTHMA Allopurinol 150 mg 08/18/17 10:00 08/22/17 10:02 Zyloprim - PO 150 mg DAILY [facility] Administration Alprazolam 0.5 mg 08/22/17 12:54 08/23/17 07:53 Xanax - PO 0.5 mg Q8H PRN Administration ANXIETY Amlodipine Besylate 5 mg 08/18/17 10:00 08/22/17 09:29 Norvasc - PO 5 mg DAILY [facility] Administration Ascorbic Acid 1,000 mg 08/18/17 10:00 08/22/17 09:30 Vitamin C - PO 500 mg DAILY [facility] Administration Bisacodyl 20 mg 08/23/17 16:00 Dulcolax - PO 08/23/17 16:01 ONCE ONE Bisacodyl 20 mg 08/24/17 19:35 Dulcolax - PO 08/24/17 19:36 ONCE ONE Calcium Carbonate 650 mg 08/17/17 22:00 08/22/17 22:05 Calcium Carbonate - PO 650 mg BID [facility] Administration Docusate Sodium 100 mg 08/17/17 22:00 08/22/17 21:59 Colace - PO Not Given BID [facility] Glipizide 10 mg 08/17/17 16:30 08/23/17 06:44 Glucotrol Xl - PO 10 mg BIDAC [facility] Administration Iron Sucrose 200 mg/ Sodium 100 mls @ 100 mls/hr 08/23/17 10:00 Chloride IVPB 08/23/17 11:00 DAILY@0800 [facility] Insulin Aspart 1 vial 08/18/17 22:00 08/23/17 06:44 Novolog Vial Sliding Scale - SQ Not Given ACHS [facility] Protocol Methylnaltrexone [place] 8 mg 08/23/17 10:00 Relistor - SQ DAILY [facility] Morphine Sulfate 60 mg 08/17/17 14:00 08/23/17 06:45 Ms Contin - PO 60 mg TID [facility] Administration Morphine Sulfate 15 mg 08/20/17 19:48 08/23/17 03:18 Msir - PO 15 mg Q6H PRN Administration PAIN LEVEL 4 - 6 Non-Formulary Medication 1,000 mg 08/18/17 10:00 08/22/17 09:32 Ascorbic Acid [Vitamin C] PO 1,000 mg DAILY [facility] Administration Ondansetron HCl 8 mg 08/23/17 08:14 Zofran Injection IVPB Q8H PRN NAUSEA Pantoprazole Sodium 40 mg 08/18/17 10:00 08/22/17 09:31 Protonix - PO 40 mg DAILY [facility] Administration Senna 1 tab 08/21/17 12:00 08/22/17 21:59 Senna - PO Not Given BID [facility] Sertraline HCl 25 mg 08/18/17 10:00 08/22/17 10:02 Zoloft - PO 25 mg DAILY [facility] Administration Sitagliptin Phosphate 50 mg 08/18/17 07:00 08/23/17 06:44 Januvia - PO 50 mg ACBK [facility] Administration Impression: ITP Mantle cell lymphoma SOB Pain management ARLETTE---> gamma globulin Plan: IV Venofer Begin steroids for ITP ( parenteral) Await labs.
[2017-08-23 08:22] LABS: CHLORIDE 97 mmol/L (98-107); POTASSIUM 4.8 mmol/L (3.5-5.1); SODIUM 136 mmol/L (136-145)
[2017-08-23 08:54] LABS: ALK PHOS 46 U/L (45-117); ANION GAP 11 (8-16); BILIRUBIN,TOTAL 0.5 mg/dL (0.2-1.0); BLOOD UREA NITROGEN 37 mg/dL (7-18); CALCIUM 8.2 mg/dL (8.5-10.1); CO2 28 mmol/L (21-32); CREATININE 1.7 mg/dL (0.55-1.02); GLUCOSE,RANDOM 191 mg/dL (74-106); MAGNESIUM 2.4 mg/dL (1.8-2.4); PHOSPHOROUS 3.6 mg/dL (2.5-4.9); SGOT/AST 13 U/L (15-37); SGPT/ALT 12 U/L (12-78); TOT PROT 8.4 g/dl (6.4-8.2)
[2017-08-23] MEDS ORDERED: PEG3350/SOD SULF,BICARB,CL/KCL 4,000 ML SOLN.RECON PO ONE ×2 (09:00)
[2017-08-23] MEDS: SENNOSIDES 8.6MG TABLET (FP) PO SCH ×2 (09:57→22:03)
[2017-08-23] MEDS: PANTOPRAZOLE 40 MG TABLET (FP) PO SCH (09:57)
[2017-08-23] MEDS: amLODIPine BESYLATE 5 MG TABLET (FP) PO SCH (09:57)
[2017-08-23] MEDS: SERTRALINE HCL 25 MG TABLET (FP) PO SCH (09:57)
[2017-08-23] MEDS: DOCUSATE SODIUM 100 MG CAPSULE (FP) PO SCH ×2 (09:57→22:03)
[2017-08-23] MEDS: ASCORBIC ACID 500 MG TABLET (FP) PO SCH (09:58)
[2017-08-23] MEDS: ASCORBIC ACID 1000 MG PO SCH (09:58)
[2017-08-23] MEDS: ALLOPURINOL 100 MG TABLET (FP) PO SCH (09:58)
[2017-08-23] MEDS: CALCIUM CARBONATE 650 MG TABLET PO SCH ×2 (09:58→22:04)
[2017-08-23] MEDS ORDERED: IRON SUCROSE INJECTION 200 MG in SODIUM CHLORIDE 90 ML IVPB SCH (10:00)
--- NOTE | 2017-08-23 10:07 | PN ---
Progress Note, Physician History of Present Illness: Stable dyspnea. Plts recovered, planned for EGD/colonoscopy. - Current Medication List Current Medications: Active Medications Albuterol Sulfate (Ventolin Hfa Inhaler -) 2 puff IH Q4H PRN PRN Reason: ASTHMA Allopurinol (Zyloprim -) 150 mg PO DAILY [facility] Last Admin: 08/22/17 10:02 Dose: 150 mg Alprazolam (Xanax -) 0.5 mg PO Q8H PRN PRN Reason: ANXIETY Last Admin: 08/23/17 07:53 Dose: 0.5 mg Amlodipine Besylate (Norvasc -) 5 mg PO DAILY [facility] Last Admin: 08/22/17 09:29 Dose: 5 mg Ascorbic Acid (Vitamin C -) 1,000 mg PO DAILY [facility] Last Admin: 08/22/17 09:30 Dose: 500 mg Bisacodyl (Dulcolax -) 20 mg PO ONCE ONE Stop: 08/23/17 16:01 Bisacodyl (Dulcolax -) 20 mg PO ONCE ONE Stop: 08/24/17 19:36 Calcium Carbonate (Calcium Carbonate -) 650 mg PO BID [facility] Last Admin: 08/22/17 22:05 Dose: 650 mg Docusate Sodium (Colace -) 100 mg PO BID [facility] Last Admin: 08/22/17 21:59 Dose: Not Given Glipizide (Glucotrol Xl -) 10 mg PO BIDAC [facility] Last Admin: 08/23/17 06:44 Dose: 10 mg Iron Sucrose 200 mg/ Sodium (Chloride) 100 mls @ 100 mls/hr IVPB DAILY@0800 [facility] Stop: 08/23/17 11:00 Insulin Aspart (Novolog Vial Sliding Scale -) 1 vial SQ ACHS [facility] PRN Reason: Protocol Last Admin: 08/23/17 06:44 Dose: Not Given Methylnaltrexone [place] (Relistor -) 8 mg SQ DAILY [facility] Morphine Sulfate (Ms Contin -) 60 mg PO TID [facility] Last Admin: 08/23/17 06:45 Dose: 60 mg Morphine Sulfate (Msir -) 15 mg PO Q6H PRN PRN Reason: PAIN LEVEL 4 - 6 Last Admin: 08/23/17 03:18 Dose: 15 mg Non-Formulary Medication (Ascorbic Acid [Vitamin C]) 1,000 mg PO DAILY [facility] Last Admin: 08/22/17 09:32 Dose: 1,000 mg Ondansetron HCl (Zofran Injection) 8 mg IVPB Q8H PRN PRN Reason: NAUSEA Pantoprazole Sodium (Protonix -) 40 mg PO DAILY [facility] Last Admin: 08/22/17 09:31 Dose: 40 mg Senna (Senna -) 1 tab PO BID [facility] Last Admin: 08/22/17 21:59 Dose: Not Given Sertraline HCl (Zoloft -) 25 mg PO DAILY [facility] Last Admin: 08/22/17 10:02 Dose: 25 mg Sitagliptin Phosphate (Januvia -) 50 mg PO ACBK [facility] Last Admin: 08/23/17 06:44 Dose: 50 mg - Objective Vital Signs: Vital Signs Temperature 98.2 F 08/23/17 05:00 Pulse Rate 81 08/23/17 05:00 Respiratory Rate 20 08/23/17 05:00 Blood Pressure 157/75 08/23/17 05:00 O2 Sat by Pulse Oximetry (%) 98 08/22/17 21:00 Constitutional: Yes: No Distress, Calm Neck: Yes: Supple Cardiovascular: Yes: Regular Rate and Rhythm Respiratory: Yes: Regular, Diminished, On Nasal O2 Gastrointestinal: Yes: Normal Bowel Sounds, Soft, Abdomen, Obese Edema: Yes Edema: LLE: 2+, RLE: 2+ Labs: CBC, BMP 08/23/17 06:00 08/23/17 06:00 Problem List - Problems (1) Acute ITP Code(s): D69.3 - IMMUNE THROMBOCYTOPENIC PURPURA (2) Anemia Code(s): D64.9 - ANEMIA, UNSPECIFIED Qualifiers: Anemia type: iron deficiency Iron deficiency anemia type: chronic blood loss Qualified Code(s): D50.0 - Iron deficiency anemia secondary to blood loss (chronic) (3) CKD stage 3 secondary to diabetes Code(s): E11.22 - TYPE 2 DIABETES MELLITUS W DIABETIC CHRONIC KIDNEY DISEASE; N18.3 - CHRONIC KIDNEY DISEASE, STAGE 3 (MODERATE) (4) Diabetes mellitus Code(s): E11.9 - TYPE 2 DIABETES MELLITUS WITHOUT COMPLICATIONS Qualifiers: Diabetes mellitus type: type 2 (5) Diaphragmatic hernia Code(s): K44.9 - DIAPHRAGMATIC HERNIA WITHOUT OBSTRUCTION OR GANGRENE Qualifiers: Obstruction and gangrene presence: without obstruction or gangrene Qualified Code(s): K44.9 - Diaphragmatic hernia without obstruction or gangrene (6) HTN (hypertension) Code(s): I10 - ESSENTIAL (PRIMARY) HYPERTENSION Qualifiers: Hypertension type: essential hypertension Qualified Code(s): I10 - Essential (primary) hypertension (7) Mantle cell lymphoma Code(s): C83.10 - MANTLE CELL LYMPHOMA, UNSPECIFIED SITE Assessment/Plan 08/18/2017 Normal biventricular size and fxn, mild LAE, MR, TR 08/29/2014 Normal LV size and fxn without sig valve abnl 1. Recurrent ITP h/o splenectomy, antiphospholipids improving 2. Recurrent dyspnea on exertion after failure of left diaphragmatic hernia repair/mesh 3. HTN 4. NIDDM 5. History of Mantle Cell Lymphoma 6. Acute on CKD 3 referable to IVIG and hydronephrosis 7. Chronic interstitial lung disease 8. Fe-deficient microcytic anemia r/o GI sourse PLAN: 1. Resume Lisinopril 10 qd once renal fxn stable, continue Norvasc 5 qd 2. DVT and GI prophylaxis 3. Steroids course with monitor Plt, usual transfusion parameters, IV Venofer 4. Consideration for re-op diaphragmatic hernia repair after recovery of plt counts, endoscopy w/u of Fe deficient anemia 5. O2, BD as needed, wrap legs 6. Plan for EGD/colonscopy, may proceed from CV-standpoint
--- NOTE | 2017-08-23 11:30 | PN ---
Progress Note (short form) - Note Progress Note: PULMONARY Breathing better after IVF stopped. No cough or wheezing. Last Vital Signs Temp Pulse Resp BP Pulse Ox 98.2 F 81 20 157/75 98 08/23/17 05:00 08/23/17 05:00 08/23/17 05:00 08/23/17 05:00 08/22/17 21:00 Gen: NAD at rest Heart: RRR Lung: bibasilar rales Abd: soft, nontender Ext: + edema CBC, BMP 08/23/17 06:00 08/23/17 06:00 Active Medications Albuterol Sulfate (Ventolin Hfa Inhaler -) 2 puff IH Q4H PRN PRN Reason: ASTHMA Allopurinol (Zyloprim -) 150 mg PO DAILY [facility] Last Admin: 08/23/17 09:58 Dose: 150 mg Alprazolam (Xanax -) 0.5 mg PO Q8H PRN PRN Reason: ANXIETY Last Admin: 08/23/17 07:53 Dose: 0.5 mg Amlodipine Besylate (Norvasc -) 5 mg PO DAILY [facility] Last Admin: 08/23/17 09:57 Dose: 5 mg Ascorbic Acid (Vitamin C -) 1,000 mg PO DAILY [facility] Last Admin: 08/23/17 09:58 Dose: Not Given Bisacodyl (Dulcolax -) 20 mg PO ONCE ONE Stop: 08/23/17 16:01 Bisacodyl (Dulcolax -) 20 mg PO ONCE ONE Stop: 08/24/17 19:36 Calcium Carbonate (Calcium Carbonate -) 650 mg PO BID [facility] Last Admin: 08/23/17 09:58 Dose: 650 mg Docusate Sodium (Colace -) 100 mg PO BID [facility] Last Admin: 08/23/17 09:57 Dose: 100 mg Glipizide (Glucotrol Xl -) 10 mg PO BIDAC [facility] Last Admin: 08/23/17 06:44 Dose: 10 mg Insulin Aspart (Novolog Vial Sliding Scale -) 1 vial SQ ACHS [facility] PRN Reason: Protocol Last Admin: 08/23/17 06:44 Dose: Not Given Methylnaltrexone [place] (Relistor -) 8 mg SQ DAILY [facility] Morphine Sulfate (Ms Contin -) 60 mg PO TID [facility] Last Admin: 08/23/17 06:45 Dose: 60 mg Morphine Sulfate (Msir -) 15 mg PO Q6H PRN PRN Reason: PAIN LEVEL 4 - 6 Last Admin: 08/23/17 03:18 Dose: 15 mg Non-Formulary Medication (Ascorbic Acid [Vitamin C]) 1,000 mg PO DAILY [facility] Last Admin: 08/23/17 09:58 Dose: 1,000 mg Ondansetron HCl (Zofran Injection) 8 mg IVPB Q8H PRN PRN Reason: NAUSEA Pantoprazole Sodium (Protonix -) 40 mg PO DAILY [facility] Last Admin: 08/23/17 09:57 Dose: 40 mg Senna (Senna -) 1 tab PO BID [facility] Last Admin: 08/23/17 09:57 Dose: 1 tab Sertraline HCl (Zoloft -) 25 mg PO DAILY [facility] Last Admin: 08/23/17 09:57 Dose: 25 mg Sitagliptin Phosphate (Januvia -) 50 mg PO ACBK [facility] Last Admin: 08/23/17 06:44 Dose: 50 mg A/P Recurrent ITP Left Diaphragmatic Hernia Acute on Chronic Renal Failure Interstitial Lung Disease HTN DM h/o Lymphoma - monitor urine output, creatinine - steroids per heme/onc - O2 to keep SpO2 >90% - inhaled bronchodilators - monitor CBC - DVT prophylaxis - for EGD/colonoscopy, no pulmonary contraindications for planned procedure
--- NOTE | 2017-08-23 12:30 | CON.GU ---
Consult Consult Specialty:: Referred by:: Medicine Reason for Consultation:: hydronephrosis - History of Present Illness Chief Complaint: hydronephrosis History of Present Illness: 66 year old female admitted with shortness of breath. She has a history of thrombocytopenia. She also has a history of large bilateral renal calculi on CT May 2017. She has had a US here with some might left hydro but no stones seen on either side. Her creatinine is 1.7. - History Source History Provided By: Patient, Medical Record Limitations to Obtaining History: No Limitations - Past Medical History CLASSROOM AIDE: No: Alzheimer's, CVA Cardio/Vascular: Yes: HTN. No: AFIB Pulmonary: Yes: COPD, Other (elevated left hemidiaphragm) Gastrointestinal: Yes: Diverticulitis (osteoarthritis right hip). No: Ascites Hepatobiliary: No: Cirrhosis Renal/: Yes: Renal Calculi, UTI, Other (bladder dysfunction). No: Renal Failure ...: No Infectious Disease: No: AIDS Psych: Yes: Anxiety, Depression Musculoskeletal: Yes: Chronic low back pain, Osteoarthritis (right hip) Rheumatology: Yes: Other (degenerative spine disease) Endocrine: Yes: Diabetes Mellitus Additional Medical History: ITP, Mantle Cell Lymphoma - Past Surgical History Past Surgical History: Yes: Laminectomy (cervical laminectomy x2 (2001)), Splenectomy, Thoracotomy - Alcohol/Substance Use Hx Alcohol Use: No History of Substance Use: reports: None - Smoking History Smoking history: Former smoker Have you smoked in the past 12 months: No Aproximately how many cigarettes per day: 0 If you are a former smoker, when did you quit?: 2001 - Social History Usual Living Arrangement: Other ADL: Independent 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, , 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 History of Recent Travel: No Home Medications - Allergies Allergies/Adverse Reactions: Allergies Allergy/AdvReac Type Severity Reaction Status Date / Time ciprofloxacin HCl Allergy Intermediate Itching Verified 05/26/17 08:49 [From Cipro] levofloxacin [From Levaquin] Allergy Intermediate Rash Verified 05/26/17 08:49 atorvastatin calcium Allergy Mild muscle Verified 05/26/17 08:49 [From Lipitor] aches - Home Medications Home Medications: Ambulatory Orders Sertraline HCl [Zoloft -] 25 mg PO DAILY 08/28/14 Alprazolam [Xanax] 0.5 mg PO Q8H PRN #0 tablet 09/10/14 Pantoprazole Sodium [Protonix -] 40 mg PO DAILY #0 tablet.ec 09/10/14 Morphine Sulfate 15 mg PO QID PRN 03/31/16 Allopurinol [Zyloprim -] 150 mg PO DAILY #60 tablet 04/07/16 Albuterol Sulfate Inhaler - [Ventolin HFA Inhaler -] 1 - 2 inh PO PRN 08/09/16 Calcium Carbonate 648 mg PO BID 08/09/16 Amlodipine Besylate [Norvasc -] 5 mg PO DAILY #0 tablet 10/29/16 Docusate Sodium [Colace -] 100 mg PO BID #60 tab-cap 10/29/16 Morphine *Sr* [MS Contin -] 60 mg PO TID #120 tab.sa MDD 180mg 12/28/16 Sitagliptin Phosphate [Januvia] 50 mg PO DAILY 03/18/17 Glipizide Xl [Glucotrol Xl -] 10 mg PO BIDAC tab.er.24 05/23/17 Acetaminophen [Tylenol .Regular Strength -] 650 mg PO PRN 05/26/17 predniSONE [Deltasone -] 40 mg PO DAILY #60 tablet 06/20/17 Ascorbic Acid [Vitamin C] 1,000 mg PO DAILY 08/17/17 Ferrous Sulfate 325 mg PO DAILY 08/17/17 Furosemide [Lasix] 40 mg PO DAILY 08/17/17 Family Disease History - Family Disease History Family Disease History: Heart Disease: Mother, Other: Father (thrombocytopenia) , Daughter (hypothyroidism) Review of Systems - Review of Systems Genitourinary: reports: Flank Pain Physical Exam- Vital Signs: Vital Signs Temperature 98.2 F 08/23/17 05:00 Pulse Rate 81 08/23/17 05:00 Respiratory Rate 20 08/23/17 05:00 Blood Pressure 157/75 08/23/17 05:00 O2 Sat by Pulse Oximetry (%) 98 08/22/17 21:00 Renal/: No: Bladder Distention, CVA Tenderness - Left, CVA Tenderness - Right Pelvis: No: Bladder Distended Labs: CBC, BMP 08/23/17 06:00 08/23/17 06:00 Imaging - Results Cat Scan: Report Reviewed Ultrasound: Report Reviewed Problem List - Problems (1) Calculus of kidney Assessment/Plan: recent history of bilateral staghorn calculi on CT. US on this visit shows no stones. Will order a KUB. Code(s): N20.0 - CALCULUS OF KIDNEY
--- NOTE | 2017-08-23 13:34 | PN ---
Progress Note (short form) - Note Progress Note: Renal Follow up for ARLETTE on CKD Pt seen and examined at the bedside no acute complaints making urine no sob Vital Signs Temperature 98.2 F 08/23/17 05:00 Pulse Rate 81 08/23/17 05:00 Respiratory Rate 20 08/23/17 05:00 Blood Pressure 157/75 08/23/17 05:00 O2 Sat by Pulse Oximetry (%) 98 08/22/17 21:00 Intake & Output 08/20/17 08/21/17 08/22/17 08/23/17 23:59 23:59 23:59 23:59 Intake Total 550 1664.4 831 300 Output Total 400 Balance 150 1664.4 831 300 NAD on NC O2 RRR, no M/R CTA in anterior exam Abd obese, midl tenderness LUQ 1+ LE edmea, no clubbing or cyanosis CBC, BMP 08/23/17 06:00 08/23/17 06:00 Current Medications Albuterol Sulfate (Ventolin Hfa Inhaler -) 2 puff IH Q4H PRN PRN Reason: ASTHMA Allopurinol (Zyloprim -) 150 mg PO DAILY [facility] Last Admin: 08/23/17 09:58 Dose: 150 mg Alprazolam (Xanax -) 0.5 mg PO Q8H PRN PRN Reason: ANXIETY Last Admin: 08/23/17 07:53 Dose: 0.5 mg Amlodipine Besylate (Norvasc -) 5 mg PO DAILY [facility] Last Admin: 08/23/17 09:57 Dose: 5 mg Ascorbic Acid (Vitamin C -) 1,000 mg PO DAILY [facility] Last Admin: 08/23/17 09:58 Dose: Not Given Bisacodyl (Dulcolax -) 20 mg PO ONCE ONE Stop: 08/23/17 16:01 Bisacodyl (Dulcolax -) 20 mg PO ONCE ONE Stop: 08/24/17 19:36 Calcium Carbonate (Calcium Carbonate -) 650 mg PO BID [facility] Last Admin: 08/23/17 09:58 Dose: 650 mg Docusate Sodium (Colace -) 100 mg PO BID [facility] Last Admin: 08/23/17 09:57 Dose: 100 mg Glipizide (Glucotrol Xl -) 10 mg PO BIDAC [facility] Last Admin: 08/23/17 06:44 Dose: 10 mg Insulin Aspart (Novolog Vial Sliding Scale -) 1 vial SQ ACHS [facility] PRN Reason: Protocol Last Admin: 08/23/17 12:02 Dose: Not Given Methylnaltrexone [place] (Relistor -) 8 mg SQ DAILY [facility] Morphine Sulfate (Ms Contin -) 60 mg PO TID [facility] Last Admin: 08/23/17 06:45 Dose: 60 mg Morphine Sulfate (Msir -) 15 mg PO Q6H PRN PRN Reason: PAIN LEVEL 4 - 6 Last Admin: 08/23/17 03:18 Dose: 15 mg Non-Formulary Medication (Ascorbic Acid [Vitamin C]) 1,000 mg PO DAILY [facility] Last Admin: 08/23/17 09:58 Dose: 1,000 mg Ondansetron HCl (Zofran Injection) 8 mg IVPB Q8H PRN PRN Reason: NAUSEA Pantoprazole Sodium (Protonix -) 40 mg PO DAILY [facility] Last Admin: 08/23/17 09:57 Dose: 40 mg Senna (Senna -) 1 tab PO BID [facility] Last Admin: 08/23/17 09:57 Dose: 1 tab Sertraline HCl (Zoloft -) 25 mg PO DAILY [facility] Last Admin: 08/23/17 09:57 Dose: 25 mg Sitagliptin Phosphate (Januvia -) 50 mg PO ACBK [facility] Last Admin: 08/23/17 06:44 Dose: 50 mg A/p 66 year old woman with PMhx of CKD stage 3, hx of staghorn calculi with mild hydronephrosis, ITP, Mantle Cell lymphoma, UTI's, NIDDM, Hypertension who presented with weakness, lethargy and to have recurrent worsening thrombocytopneia and developed ARLETTE during the hospitalization with Cr of 1.6. #ARLETTE on CKD Cr with mild improvement today can resume diuretics after colonoscopy, would want to avoid hypovolemia in setting fo bowel prep Trend BUN/Cr off IVF Urology eval noted Thank you Dash Padron DO
[2017-08-23] MEDS: Methylnaltrexone Bromide 12 MG/0.6 ML KIT SQ SCH (14:17)
--- NOTE | 2017-08-23 14:53 | PN ---
Progress Note, Physician Chief Complaint: Ms Painting today says she is feeling well. No cp, sob at rest, or n/v. - Current Medication List Current Medications: Active Medications Albuterol Sulfate (Ventolin Hfa Inhaler -) 2 puff IH Q4H PRN PRN Reason: ASTHMA Allopurinol (Zyloprim -) 150 mg PO DAILY [facility] Last Admin: 08/23/17 09:58 Dose: 150 mg Alprazolam (Xanax -) 0.5 mg PO Q8H PRN PRN Reason: ANXIETY Last Admin: 08/23/17 07:53 Dose: 0.5 mg Amlodipine Besylate (Norvasc -) 5 mg PO DAILY [facility] Last Admin: 08/23/17 09:57 Dose: 5 mg Ascorbic Acid (Vitamin C -) 1,000 mg PO DAILY [facility] Last Admin: 08/23/17 09:58 Dose: Not Given Bisacodyl (Dulcolax -) 20 mg PO ONCE ONE Stop: 08/23/17 16:01 Bisacodyl (Dulcolax -) 20 mg PO ONCE ONE Stop: 08/24/17 19:36 Calcium Carbonate (Calcium Carbonate -) 650 mg PO BID [facility] Last Admin: 08/23/17 09:58 Dose: 650 mg Docusate Sodium (Colace -) 100 mg PO BID [facility] Last Admin: 08/23/17 09:57 Dose: 100 mg Glipizide (Glucotrol Xl -) 10 mg PO BIDAC [facility] Last Admin: 08/23/17 06:44 Dose: 10 mg Insulin Aspart (Novolog Vial Sliding Scale -) 1 vial SQ ACHS [facility] PRN Reason: Protocol Last Admin: 08/23/17 12:02 Dose: Not Given Methylnaltrexone [place] (Relistor -) 8 mg SQ DAILY [facility] Last Admin: 08/23/17 14:17 Dose: 8 mg Morphine Sulfate (Ms Contin -) 60 mg PO TID [facility] Last Admin: 08/23/17 14:17 Dose: 60 mg Morphine Sulfate (Msir -) 15 mg PO Q6H PRN PRN Reason: PAIN LEVEL 4 - 6 Last Admin: 08/23/17 03:18 Dose: 15 mg Non-Formulary Medication (Ascorbic Acid [Vitamin C]) 1,000 mg PO DAILY [facility] Last Admin: 08/23/17 09:58 Dose: 1,000 mg Ondansetron HCl (Zofran Injection) 8 mg IVPB Q8H PRN PRN Reason: NAUSEA Pantoprazole Sodium (Protonix -) 40 mg PO DAILY [facility] Last Admin: 08/23/17 09:57 Dose: 40 mg Senna (Senna -) 1 tab PO BID [facility] Last Admin: 08/23/17 09:57 Dose: 1 tab Sertraline HCl (Zoloft -) 25 mg PO DAILY [facility] Last Admin: 08/23/17 09:57 Dose: 25 mg Sitagliptin Phosphate (Januvia -) 50 mg PO ACBK [facility] Last Admin: 08/23/17 06:44 Dose: 50 mg - Objective Vital Signs: Vital Signs Temperature 36.4 C L 08/23/17 14:27 Pulse Rate 66 08/23/17 14:27 Respiratory Rate 20 08/23/17 14:27 Blood Pressure 134/59 08/23/17 14:27 O2 Sat by Pulse Oximetry (%) 98 08/23/17 09:00 Constitutional: Yes: No Distress, Calm, Obese Cardiovascular: Yes: Regular Rate and Rhythm. No: Gallop, Murmur, Rub Respiratory: Yes: Regular, CTA Bilaterally. No: Rales, Rhonchi, Wheezes Gastrointestinal: Yes: Normal Bowel Sounds, Soft. No: Distention, Tenderness Extremities: Yes: WNL Edema: No Labs: CBC, BMP 08/23/17 06:00 08/23/17 06:00 Assessment/Plan (1) Hypoxia Assessment/Plan: -possibly secondary to diaphragmatic hernia -outpatient evaluation for repair -appreciate pulmonary assistance -continue current management -may need home oxygen, will obtain pre and post prior to discharge Code(s): R09.02 - HYPOXEMIA (2) Weakness Assessment/Plan: -secondary to ITP -resolved Code(s): R53.1 - WEAKNESS (3) Acute ITP Assessment/Plan: -hematology following -IVIg held secondary to renal function -defer to hematology if needs one more treatment or if finished Code(s): D69.3 - IMMUNE THROMBOCYTOPENIC PURPURA (4) CKD stage 3 secondary to diabetes Assessment/Plan: -improving today Code(s): E11.22 - TYPE 2 DIABETES MELLITUS W DIABETIC CHRONIC KIDNEY DISEASE; N18.3 - CHRONIC KIDNEY DISEASE, STAGE 3 (MODERATE) (5) Chronic pain Assessment/Plan: -continue MS contin -continue prn xanax Code(s): G89.29 - OTHER CHRONIC PAIN Qualifiers: Chronic pain type: chronic pain syndrome Qualified Code(s): G89.4 - Chronic pain syndrome (6) Diabetes mellitus Assessment/Plan: -continue home regimen -FSBS and SSI Code(s): E11.9 - TYPE 2 DIABETES MELLITUS WITHOUT COMPLICATIONS (7) HTN (hypertension) Assessment/Plan: -continue amlodipine -may be contributing to lower extremity edema Code(s): I10 - ESSENTIAL (PRIMARY) HYPERTENSION Qualifiers: (8) Anemia -appreciate GI assistance -continue iron infusion -plan for endoscopy and colonoscopy on Monday
[2017-08-23] MEDS ORDERED: BISACODYL 5 MG TABLET.DR (FP) PO ONE ×2 (16:00→18:00)
[2017-08-23] MEDS ORDERED: INSULIN (NOVOLOG) ASPART 100 UNITS/ML 10ML VIAL ONE (20:45)
[2017-08-24] MEDS: morphine SULFATE IMMEDIATE RELEASE 30 MG TAB PO PRN ×2 (00:53→20:29)
[2017-08-24] MEDS ORDERED: ACETAMINOPHEN 325 MG TABLET (FP) PO ONE (03:46)
[2017-08-24] MEDS: morphine SO4 SUSTAINED ACTING 30 MG TABLET.SA PO SCH ×3 (05:53→22:46)
[2017-08-24] MEDS: ALPRAZolam 0.25 MG TABLET PO PRN ×2 (05:53→14:21)
[2017-08-24] MEDS: glipiZIDE-XL 10 MG TAB.ER.24 (FP) PO SCH ×2 (06:04→16:34)
[2017-08-24] MEDS: INSULIN SLIDING SCALE (NOVOLOG) 1 VIAL SQ SCH ×4 (06:05→22:48)
[2017-08-24] MEDS: sitaGLIPtin PHOSPHATE 50 MG TABLET PO SCH (06:05)
[2017-08-24 07:53] LABS: HEMATOCRIT 29.8 % (32.4-45.2); MCH 23.2 pg (25.7-33.7); MCHC 30.2 g/dl (32.0-36.0); MEAN CELL VOLUME 76.7 fl (80-96); MEAN PLT VOLUME 9.8 fl (7.5-11.1); PLATELET COUNT 120 K/MM3 (134-434); RBC 3.89 M/mm3 (3.60-5.2); RDW 20.7 % (11.6-15.6)
[2017-08-24 08:09] LABS: INR 1.03 (0.82-1.09); PROTHROMBIN TIME (PATIENT) 11.6 SEC (9.98-11.88)
[2017-08-24 08:10] LABS: ALBUMIN 2.9 g/dl (3.4-5.0); ANION GAP 10 (8-16); BLOOD UREA NITROGEN 30 mg/dL (7-18); CALCIUM 8.3 mg/dL (8.5-10.1); CHLORIDE 96 mmol/L (98-107); CO2 32 mmol/L (21-32); CREATININE 1.6 mg/dL (0.55-1.02); GLUCOSE,RANDOM 86 mg/dL (74-106); MAGNESIUM 2.6 mg/dL (1.8-2.4); PHOSPHOROUS 3.6 mg/dL (2.5-4.9); POTASSIUM 4.2 mmol/L (3.5-5.1); SGOT/AST 14 U/L (15-37); SGPT/ALT 15 U/L (12-78); SODIUM 138 mmol/L (136-145)
[2017-08-24 08:12] LABS: ALK PHOS 43 U/L (45-117); BILIRUBIN,TOTAL 0.5 mg/dL (0.2-1.0); TOT PROT 7.7 g/dl (6.4-8.2)
--- NOTE | 2017-08-24 08:44 | PN ---
Progress Note (short form) - Note Progress Note: Patient seen and examined Being prepped for GI work up to assess Fe++ deficiency Denies chest pain or SOB Last Vital Signs Temp Pulse Resp BP Pulse Ox 98.4 F 68 20 154/61 96 08/24/17 06:00 08/24/17 06:00 08/24/17 06:00 08/24/17 06:00 08/23/17 20:59 HEENT: DENEEN, EOM Intact Oropharynx: No thrush, No mucositis Cor: RSR, No murmurs, No gallops Lungs:Rales at bases and diminished breath sounds Abd: Soft, Normal bowel sounds, No organomegaly, ventral hernia Ext:LE edema edema Skin: No rashes, Integument intact CBC, BMP 08/24/17 06:00 08/24/17 06:00 Current Medications Generic Name Dose Route Start Last Admin Trade Name Freq PRN Reason Stop Dose Admin Albuterol Sulfate 2 puff 08/17/17 15:49 Ventolin Hfa Inhaler - IH Q4H PRN ASTHMA Allopurinol 150 mg 08/18/17 10:00 08/23/17 09:58 Zyloprim - PO 150 mg DAILY [facility] Administration Alprazolam 0.5 mg 08/22/17 12:54 08/24/17 05:53 Xanax - PO 0.5 mg Q8H PRN Administration ANXIETY Amlodipine Besylate 5 mg 08/18/17 10:00 08/23/17 09:57 Norvasc - PO 5 mg DAILY [facility] Administration Ascorbic Acid 1,000 mg 08/18/17 10:00 08/23/17 09:58 Vitamin C - PO Not Given DAILY [facility] Bisacodyl 20 mg 08/24/17 19:35 Dulcolax - PO 08/24/17 19:36 ONCE ONE Calcium Carbonate 650 mg 08/17/17 22:00 08/23/17 22:04 Calcium Carbonate - PO 650 mg BID [facility] Administration Docusate Sodium 100 mg 08/17/17 22:00 08/23/17 22:03 Colace - PO Not Given BID [facility] Glipizide 10 mg 08/17/17 16:30 08/24/17 06:04 Glucotrol Xl - PO Not Given BIDAC [facility] Insulin Aspart 1 vial 08/18/17 22:00 08/24/17 06:05 Novolog Vial Sliding Scale - SQ Not Given ACHS [facility] Protocol Methylnaltrexone [place] 8 mg 08/23/17 10:00 08/23/17 14:17 Relistor - SQ 8 mg DAILY [facility] Administration Morphine Sulfate 60 mg 08/17/17 14:00 08/24/17 05:53 Ms Contin - PO 60 mg TID [facility] Administration Morphine Sulfate 15 mg 08/20/17 19:48 08/24/17 00:53 Msir - PO 15 mg Q6H PRN Administration PAIN LEVEL 4 - 6 Non-Formulary Medication 1,000 mg 08/18/17 10:00 08/23/17 09:58 Ascorbic Acid [Vitamin C] PO 1,000 mg DAILY [facility] Administration Ondansetron HCl 8 mg 08/23/17 08:14 Zofran Injection IVPB Q8H PRN NAUSEA Pantoprazole Sodium 40 mg 08/18/17 10:00 08/23/17 09:57 Protonix - PO 40 mg DAILY [facility] Administration Senna 1 tab 08/21/17 12:00 08/23/17 22:03 Senna - PO Not Given BID [facility] Sertraline HCl 25 mg 08/18/17 10:00 08/23/17 09:57 Zoloft - PO 25 mg DAILY [facility] Administration Sitagliptin Phosphate 50 mg 08/18/17 07:00 08/24/17 06:05 Januvia - PO Not Given ACBK [facility] Impression: ITP S/P 4 days of Gamma globulin ( 80% of planned dose ) ARLETTE secondary to Gamma globulin - improved --Creatinine decreased to 1.6 Mantle cell lymphoma Fe++ deficiency Anemia - responsive to Fe++ supplementation DM- oral agents HBP Pain management Response to gamma globulin was less than usual. Raises need for continuation of steroids in future and consideration for Rituxin . For GI assessment.
[2017-08-24] MEDS ORDERED: PEG3350/SOD SULF,BICARB,CL/KCL 4,000 ML SOLN.RECON PO ONE ×2 (09:00)
[2017-08-24 09:24] LABS: ANISOCYTOSIS 2+; MACROCYTOSIS 1+; OVALOCYTE 1+; PLATELET ESTIMATE DECREASED; TARGET CELLS 2+; TEAR DROP CELLS 1+
[2017-08-24] MEDS: ASCORBIC ACID 500 MG TABLET (FP) PO SCH (10:10)
[2017-08-24] MEDS: PANTOPRAZOLE 40 MG TABLET (FP) PO SCH (10:10)
[2017-08-24] MEDS: SENNOSIDES 8.6MG TABLET (FP) PO SCH ×2 (10:10→22:46)
[2017-08-24] MEDS: DOCUSATE SODIUM 100 MG CAPSULE (FP) PO SCH (10:10)
[2017-08-24] MEDS: ASCORBIC ACID 1000 MG PO SCH (10:10)
[2017-08-24] MEDS: SERTRALINE HCL 25 MG TABLET (FP) PO SCH (10:10)
[2017-08-24] MEDS: CALCIUM CARBONATE 650 MG TABLET PO SCH ×2 (10:10→22:47)
[2017-08-24] MEDS: amLODIPine BESYLATE 5 MG TABLET (FP) PO SCH (10:10)
[2017-08-24] MEDS: ALLOPURINOL 100 MG TABLET (FP) PO SCH (10:11)
--- NOTE | 2017-08-24 10:37 | PN ---
Progress Note (short form) - Note Progress Note: PULMONARY Denies shortness of breath or chest pain. No cough or wheezing. Being prepped for colonoscopy. Last Vital Signs Temp Pulse Resp BP Pulse Ox 98.4 F 68 20 154/61 96 08/24/17 06:00 08/24/17 06:00 08/24/17 06:00 08/24/17 06:00 08/23/17 20:59 Gen: NAD at rest Heart: RRR Lung: left base rales Abd: soft, nontender Ext: + edema CBC, BMP 08/24/17 06:00 08/24/17 06:00 Active Medications Albuterol Sulfate (Ventolin Hfa Inhaler -) 2 puff IH Q4H PRN PRN Reason: ASTHMA Allopurinol (Zyloprim -) 150 mg PO DAILY [facility] Last Admin: 08/24/17 10:11 Dose: 150 mg Alprazolam (Xanax -) 0.5 mg PO Q8H PRN PRN Reason: ANXIETY Last Admin: 08/24/17 05:53 Dose: 0.5 mg Amlodipine Besylate (Norvasc -) 5 mg PO DAILY [facility] Last Admin: 08/24/17 10:10 Dose: 5 mg Ascorbic Acid (Vitamin C -) 1,000 mg PO DAILY [facility] Last Admin: 08/24/17 10:10 Dose: Not Given Bisacodyl (Dulcolax -) 20 mg PO ONCE ONE Stop: 08/24/17 19:36 Calcium Carbonate (Calcium Carbonate -) 650 mg PO BID [facility] Last Admin: 08/24/17 10:10 Dose: 650 mg Docusate Sodium (Colace -) 100 mg PO BID [facility] Last Admin: 08/24/17 10:10 Dose: 100 mg Glipizide (Glucotrol Xl -) 10 mg PO BIDAC [facility] Last Admin: 08/24/17 06:04 Dose: Not Given Insulin Aspart (Novolog Vial Sliding Scale -) 1 vial SQ ACHS [facility] PRN Reason: Protocol Last Admin: 08/24/17 06:05 Dose: Not Given Methylnaltrexone [place] (Relistor -) 8 mg SQ DAILY [facility] Last Admin: 08/23/17 14:17 Dose: 8 mg Morphine Sulfate (Ms Contin -) 60 mg PO TID [facility] Last Admin: 08/24/17 05:53 Dose: 60 mg Morphine Sulfate (Msir -) 15 mg PO Q6H PRN PRN Reason: PAIN LEVEL 4 - 6 Last Admin: 08/24/17 00:53 Dose: 15 mg Non-Formulary Medication (Ascorbic Acid [Vitamin C]) 1,000 mg PO DAILY [facility] Last Admin: 08/24/17 10:10 Dose: 1,000 mg Ondansetron HCl (Zofran Injection) 8 mg IVPB Q8H PRN PRN Reason: NAUSEA Pantoprazole Sodium (Protonix -) 40 mg PO DAILY [facility] Last Admin: 08/24/17 10:10 Dose: 40 mg Senna (Senna -) 1 tab PO BID [facility] Last Admin: 08/24/17 10:10 Dose: 1 tab Sertraline HCl (Zoloft -) 25 mg PO DAILY [facility] Last Admin: 08/24/17 10:10 Dose: 25 mg Sitagliptin Phosphate (Januvia -) 50 mg PO ACBK [facility] Last Admin: 08/24/17 06:05 Dose: Not Given A/P Recurrent ITP Left Diaphragmatic Hernia Acute on Chronic Renal Failure Interstitial Lung Disease HTN DM h/o Lymphoma - monitor urine output, creatinine - off steroids/IVIG - O2 to keep SpO2 >90% - inhaled bronchodilators - monitor CBC - DVT prophylaxis - for EGD/colonoscopy, no pulmonary contraindications for planned procedure
--- NOTE | 2017-08-24 11:29 | PN ---
Progress Note, Physician History of Present Illness: Stable dyspnea. Plts recovered, planned for EGD/colonoscopy, undergoing prep. - Current Medication List Current Medications: Active Medications Albuterol Sulfate (Ventolin Hfa Inhaler -) 2 puff IH Q4H PRN PRN Reason: ASTHMA Allopurinol (Zyloprim -) 150 mg PO DAILY [facility] Last Admin: 08/24/17 10:11 Dose: 150 mg Alprazolam (Xanax -) 0.5 mg PO Q8H PRN PRN Reason: ANXIETY Last Admin: 08/24/17 05:53 Dose: 0.5 mg Amlodipine Besylate (Norvasc -) 5 mg PO DAILY [facility] Last Admin: 08/24/17 10:10 Dose: 5 mg Ascorbic Acid (Vitamin C -) 1,000 mg PO DAILY [facility] Last Admin: 08/24/17 10:10 Dose: Not Given Bisacodyl (Dulcolax -) 20 mg PO ONCE ONE Stop: 08/24/17 19:36 Calcium Carbonate (Calcium Carbonate -) 650 mg PO BID [facility] Last Admin: 08/24/17 10:10 Dose: 650 mg Docusate Sodium (Colace -) 100 mg PO BID [facility] Last Admin: 08/24/17 10:10 Dose: 100 mg Glipizide (Glucotrol Xl -) 10 mg PO BIDAC [facility] Last Admin: 08/24/17 06:04 Dose: Not Given Insulin Aspart (Novolog Vial Sliding Scale -) 1 vial SQ ACHS [facility] PRN Reason: Protocol Last Admin: 08/24/17 06:05 Dose: Not Given Methylnaltrexone [place] (Relistor -) 8 mg SQ DAILY [facility] Last Admin: 08/23/17 14:17 Dose: 8 mg Morphine Sulfate (Ms Contin -) 60 mg PO TID [facility] Last Admin: 08/24/17 05:53 Dose: 60 mg Morphine Sulfate (Msir -) 15 mg PO Q6H PRN PRN Reason: PAIN LEVEL 4 - 6 Last Admin: 08/24/17 00:53 Dose: 15 mg Non-Formulary Medication (Ascorbic Acid [Vitamin C]) 1,000 mg PO DAILY [facility] Last Admin: 08/24/17 10:10 Dose: 1,000 mg Ondansetron HCl (Zofran Injection) 8 mg IVPB Q8H PRN PRN Reason: NAUSEA Pantoprazole Sodium (Protonix -) 40 mg PO DAILY [facility] Last Admin: 08/24/17 10:10 Dose: 40 mg Senna (Senna -) 1 tab PO BID [facility] Last Admin: 08/24/17 10:10 Dose: 1 tab Sertraline HCl (Zoloft -) 25 mg PO DAILY [facility] Last Admin: 08/24/17 10:10 Dose: 25 mg Sitagliptin Phosphate (Januvia -) 50 mg PO ACBK [facility] Last Admin: 08/24/17 06:05 Dose: Not Given - Objective Vital Signs: Vital Signs Temperature 98.4 F 08/24/17 06:00 Pulse Rate 68 08/24/17 06:00 Respiratory Rate 20 08/24/17 09:00 Blood Pressure 154/61 08/24/17 06:00 O2 Sat by Pulse Oximetry (%) 96 08/24/17 09:00 Constitutional: Yes: No Distress, Calm Neck: Yes: Supple Cardiovascular: Yes: Regular Rate and Rhythm Respiratory: Yes: Regular, Diminished, On Nasal O2 Gastrointestinal: Yes: Normal Bowel Sounds, Soft, Abdomen, Obese Edema: Yes Edema: LLE: 1+, RLE: 1+ Labs: CBC, BMP 08/24/17 06:00 08/24/17 06:00 INR, PTT INR 1.03 (0.82-1.09) 08/24/17 06:00 Problem List - Problems (1) Acute ITP Code(s): D69.3 - IMMUNE THROMBOCYTOPENIC PURPURA (2) Anemia Code(s): D64.9 - ANEMIA, UNSPECIFIED Qualifiers: Anemia type: iron deficiency Iron deficiency anemia type: chronic blood loss Qualified Code(s): D50.0 - Iron deficiency anemia secondary to blood loss (chronic) (3) CKD stage 3 secondary to diabetes Code(s): E11.22 - TYPE 2 DIABETES MELLITUS W DIABETIC CHRONIC KIDNEY DISEASE; N18.3 - CHRONIC KIDNEY DISEASE, STAGE 3 (MODERATE) (4) Diabetes mellitus Code(s): E11.9 - TYPE 2 DIABETES MELLITUS WITHOUT COMPLICATIONS Qualifiers: Diabetes mellitus type: type 2 (5) Diaphragmatic hernia Code(s): K44.9 - DIAPHRAGMATIC HERNIA WITHOUT OBSTRUCTION OR GANGRENE Qualifiers: Obstruction and gangrene presence: without obstruction or gangrene Qualified Code(s): K44.9 - Diaphragmatic hernia without obstruction or gangrene (6) HTN (hypertension) Code(s): I10 - ESSENTIAL (PRIMARY) HYPERTENSION Qualifiers: Hypertension type: essential hypertension Qualified Code(s): I10 - Essential (primary) hypertension (7) Mantle cell lymphoma Code(s): C83.10 - MANTLE CELL LYMPHOMA, UNSPECIFIED SITE Assessment/Plan 08/18/2017 Normal biventricular size and fxn, mild LAE, MR, TR 08/29/2014 Normal LV size and fxn without sig valve abnl 1. Recurrent ITP h/o splenectomy, antiphospholipids improving 2. Recurrent dyspnea on exertion after failure of left diaphragmatic hernia repair/mesh 3. HTN 4. NIDDM 5. History of Mantle Cell Lymphoma 6. Acute on CKD 3 referable to IVIG and hydronephrosis improving 7. Chronic interstitial lung disease 8. Fe-deficient microcytic anemia r/o GI sourse PLAN: 1. Resume Lisinopril 10 qd once renal fxn stable, continue Norvasc 5 qd 2. DVT and GI prophylaxis 3. Completed IVIG/steroids course with monitor Plt, usual transfusion parameters , IV Venofer 4. Consideration for re-op diaphragmatic hernia repair after recovery of plt counts, endoscopy w/u of Fe deficient anemia 5. O2, BD as needed, wrap legs 6. Plan for EGD/colonscopy, may proceed from CV-standpoint
--- NOTE | 2017-08-24 11:45 | PN ---
Progress Note, Physician Chief Complaint: Ms Painting today says she is feeling well. No cp, sob at rest, or n/v. - Current Medication List Current Medications: Active Medications Albuterol Sulfate (Ventolin Hfa Inhaler -) 2 puff IH Q4H PRN PRN Reason: ASTHMA Allopurinol (Zyloprim -) 150 mg PO DAILY [facility] Last Admin: 08/24/17 10:11 Dose: 150 mg Alprazolam (Xanax -) 0.5 mg PO Q8H PRN PRN Reason: ANXIETY Last Admin: 08/24/17 05:53 Dose: 0.5 mg Amlodipine Besylate (Norvasc -) 5 mg PO DAILY [facility] Last Admin: 08/24/17 10:10 Dose: 5 mg Ascorbic Acid (Vitamin C -) 1,000 mg PO DAILY [facility] Last Admin: 08/24/17 10:10 Dose: Not Given Bisacodyl (Dulcolax -) 20 mg PO ONCE ONE Stop: 08/24/17 19:36 Calcium Carbonate (Calcium Carbonate -) 650 mg PO BID [facility] Last Admin: 08/24/17 10:10 Dose: 650 mg Docusate Sodium (Colace -) 100 mg PO BID [facility] Last Admin: 08/24/17 10:10 Dose: 100 mg Glipizide (Glucotrol Xl -) 10 mg PO BIDAC [facility] Last Admin: 08/24/17 06:04 Dose: Not Given Insulin Aspart (Novolog Vial Sliding Scale -) 1 vial SQ ACHS [facility] PRN Reason: Protocol Last Admin: 08/24/17 11:34 Dose: Not Given Methylnaltrexone [place] (Relistor -) 8 mg SQ DAILY [facility] Last Admin: 08/23/17 14:17 Dose: 8 mg Morphine Sulfate (Ms Contin -) 60 mg PO TID [facility] Last Admin: 08/24/17 05:53 Dose: 60 mg Morphine Sulfate (Msir -) 15 mg PO Q6H PRN PRN Reason: PAIN LEVEL 4 - 6 Last Admin: 08/24/17 00:53 Dose: 15 mg Non-Formulary Medication (Ascorbic Acid [Vitamin C]) 1,000 mg PO DAILY [facility] Last Admin: 08/24/17 10:10 Dose: 1,000 mg Ondansetron HCl (Zofran Injection) 8 mg IVPB Q8H PRN PRN Reason: NAUSEA Pantoprazole Sodium (Protonix -) 40 mg PO DAILY [facility] Last Admin: 08/24/17 10:10 Dose: 40 mg Senna (Senna -) 1 tab PO BID [facility] Last Admin: 08/24/17 10:10 Dose: 1 tab Sertraline HCl (Zoloft -) 25 mg PO DAILY [facility] Last Admin: 08/24/17 10:10 Dose: 25 mg Sitagliptin Phosphate (Januvia -) 50 mg PO ACBK [facility] Last Admin: 08/24/17 06:05 Dose: Not Given - Objective Vital Signs: Vital Signs Temperature 36.9 C 08/24/17 06:00 Pulse Rate 68 08/24/17 06:00 Respiratory Rate 20 08/24/17 09:00 Blood Pressure 154/61 08/24/17 06:00 O2 Sat by Pulse Oximetry (%) 96 08/24/17 09:00 Constitutional: Yes: No Distress, Calm, Obese Cardiovascular: Yes: Regular Rate and Rhythm. No: Gallop, Murmur, Rub Respiratory: Yes: Regular, CTA Bilaterally. No: Rales, Rhonchi, Wheezes Gastrointestinal: Yes: Normal Bowel Sounds, Soft. No: Distention, Tenderness Extremities: Yes: WNL Edema: Yes Edema: LLE: 2+, RLE: 2+ Labs: CBC, BMP 08/24/17 06:00 08/24/17 06:00 INR, PTT INR 1.03 (0.82-1.09) 08/24/17 06:00 Assessment/Plan (1) Hypoxia Assessment/Plan: -possibly secondary to diaphragmatic hernia -outpatient evaluation for repair -appreciate pulmonary assistance -continue current management -may need home oxygen, pre and post ordered today Code(s): R09.02 - HYPOXEMIA (2) Weakness Assessment/Plan: -secondary to ITP -resolved Code(s): R53.1 - WEAKNESS (3) Acute ITP Assessment/Plan: -hematology following -note reviewed, may need high dose steroids or rituxan Code(s): D69.3 - IMMUNE THROMBOCYTOPENIC PURPURA (4) CKD stage 3 secondary to diabetes Assessment/Plan: -improving today Code(s): E11.22 - TYPE 2 DIABETES MELLITUS W DIABETIC CHRONIC KIDNEY DISEASE; N18.3 - CHRONIC KIDNEY DISEASE, STAGE 3 (MODERATE) (5) Chronic pain Assessment/Plan: -continue MS contin -continue prn xanax Code(s): G89.29 - OTHER CHRONIC PAIN Qualifiers: Chronic pain type: chronic pain syndrome Qualified Code(s): G89.4 - Chronic pain syndrome (6) Diabetes mellitus Assessment/Plan: -continue home regimen -FSBS and SSI Code(s): E11.9 - TYPE 2 DIABETES MELLITUS WITHOUT COMPLICATIONS (7) HTN (hypertension) Assessment/Plan: -continue amlodipine -may be contributing to lower extremity edema Code(s): I10 - ESSENTIAL (PRIMARY) HYPERTENSION Qualifiers: (8) Anemia -appreciate GI assistance -prep for endoscopy/colonoscopy
[2017-08-24] MEDS: Methylnaltrexone Bromide 12 MG/0.6 ML KIT SQ SCH (16:11)
--- NOTE | 2017-08-24 16:20 | PN ---
GI Progress Note Subjective: GI NOte: Completed 4 liters yesterday and working an 2nd portion today. Having multiple BMs. Receiving Relistor to facilitate the prep. Platelets are 125K - Objective Vital Signs: Vital Signs Temperature 98.4 F 08/24/17 15:35 Pulse Rate 73 08/24/17 15:35 Respiratory Rate 20 08/24/17 15:35 Blood Pressure 142/65 08/24/17 15:35 O2 Sat by Pulse Oximetry (%) 91 L 08/24/17 15:20 Constitutional: No Distress ...Auscultate: Yes: Hyperactive Bowel Sounds ...Palpate: Yes: Soft, Other (nontender) Labs: CBC, BMP 08/24/17 06:00 08/24/17 06:00 INR, PTT INR 1.03 (0.82-1.09) 08/24/17 06:00 Assessment/Plan For EGD and colonoscopy tomorrow to evaluate for a source of anemia Problem List - Problems (1) Hypoxia Code(s): R09.02 - HYPOXEMIA (2) Weakness Code(s): R53.1 - WEAKNESS (3) Thrombocytopenia Code(s): D69.6 - THROMBOCYTOPENIA, UNSPECIFIED (4) SOB (shortness of breath) Code(s): R06.02 - SHORTNESS OF BREATH
--- NOTE | 2017-08-24 17:17 | PN ---
Progress Note (short form) - Note Progress Note: Renal Follow up for ARLETTE on CKD Pt seen and examined at the bedside has frequent BM's with bowel prep no sob, chest pain, N/V making urine no flank pain Vital Signs Temperature 98.4 F 08/24/17 15:35 Pulse Rate 73 08/24/17 15:35 Respiratory Rate 20 08/24/17 15:35 Blood Pressure 142/65 08/24/17 15:35 O2 Sat by Pulse Oximetry (%) 91 L 08/24/17 15:20 Intake & Output 08/21/17 08/22/17 08/23/17 08/24/17 23:59 23:59 23:59 23:59 Intake Total 1664.4 831 4400 400 Balance 1664.4 831 4400 400 NAD on NC O2 RRR, no M/R CTA in anterior exam Abd obese, midl tenderness LUQ 1+ LE edmea, no clubbing or cyanosis CBC, BMP 08/24/17 06:00 08/24/17 06:00 Current Medications Albuterol Sulfate (Ventolin Hfa Inhaler -) 2 puff IH Q4H PRN PRN Reason: ASTHMA Allopurinol (Zyloprim -) 150 mg PO DAILY [facility] Last Admin: 08/24/17 10:11 Dose: 150 mg Alprazolam (Xanax -) 0.5 mg PO Q8H PRN PRN Reason: ANXIETY Last Admin: 08/24/17 14:21 Dose: 0.5 mg Amlodipine Besylate (Norvasc -) 5 mg PO DAILY [facility] Last Admin: 08/24/17 10:10 Dose: 5 mg Ascorbic Acid (Vitamin C -) 1,000 mg PO DAILY [facility] Last Admin: 08/24/17 10:10 Dose: Not Given Bisacodyl (Dulcolax -) 20 mg PO ONCE ONE Stop: 08/24/17 19:36 Calcium Carbonate (Calcium Carbonate -) 650 mg PO BID [facility] Last Admin: 08/24/17 10:10 Dose: 650 mg Glipizide (Glucotrol Xl -) 10 mg PO BIDAC [facility] Last Admin: 08/24/17 16:34 Dose: Not Given Insulin Aspart (Novolog Vial Sliding Scale -) 1 vial SQ ACHS [facility] PRN Reason: Protocol Last Admin: 08/24/17 16:34 Dose: Not Given Methylnaltrexone [place] (Relistor -) 8 mg SQ DAILY [facility] Last Admin: 08/24/17 16:11 Dose: 8 mg Morphine Sulfate (Ms Contin -) 60 mg PO TID [facility] Last Admin: 08/24/17 13:28 Dose: 60 mg Morphine Sulfate (Msir -) 15 mg PO Q6H PRN PRN Reason: PAIN LEVEL 4 - 6 Last Admin: 08/24/17 00:53 Dose: 15 mg Non-Formulary Medication (Ascorbic Acid [Vitamin C]) 1,000 mg PO DAILY [facility] Last Admin: 08/24/17 10:10 Dose: 1,000 mg Ondansetron HCl (Zofran Injection) 8 mg IVPB Q8H PRN PRN Reason: NAUSEA Pantoprazole Sodium (Protonix -) 40 mg PO DAILY [facility] Last Admin: 08/24/17 10:10 Dose: 40 mg Senna (Senna -) 1 tab PO BID [facility] Last Admin: 08/24/17 10:10 Dose: 1 tab Sertraline HCl (Zoloft -) 25 mg PO DAILY [facility] Last Admin: 08/24/17 10:10 Dose: 25 mg Sitagliptin Phosphate (Januvia -) 50 mg PO ACBK [facility] Last Admin: 08/24/17 06:05 Dose: Not Given A/p 66 year old woman with PMhx of CKD stage 3, hx of staghorn calculi with mild hydronephrosis, ITP, Mantle Cell lymphoma, UTI's, NIDDM, Hypertension who presented with weakness, lethargy and to have recurrent worsening thrombocytopneia and developed ARLETTE during the hospitalization with Cr of 1.6. #ARLETTE on CKD likely due to IVIG Renal function stable at this time no need for IVF (pt is volume expanded) restart lasix s/p colonoscopy Trend BUN/Cr and electrolytes daily Thank you Dash Padron DO
[2017-08-24] MEDS ORDERED: BISACODYL 5 MG TABLET.DR (FP) PO ONE (19:35)
[2017-08-25] MEDS: ALPRAZolam 0.25 MG TABLET PO PRN ×2 (02:16→10:25)
[2017-08-25] MEDS: morphine SO4 SUSTAINED ACTING 30 MG TABLET.SA PO SCH ×3 (05:22→22:32)
[2017-08-25] MEDS: glipiZIDE-XL 10 MG TAB.ER.24 (FP) PO SCH ×2 (06:04→16:14)
[2017-08-25] MEDS: INSULIN SLIDING SCALE (NOVOLOG) 1 VIAL SQ SCH ×4 (06:04→22:35)
[2017-08-25] MEDS: sitaGLIPtin PHOSPHATE 50 MG TABLET PO SCH (06:04)
[2017-08-25 08:00] LABS: BASO % 0.4 % (0-2.0); EOS % 1.9 % (0-4.5); HEMATOCRIT 33.1 % (32.4-45.2); HEMOGLOBIN 9.9 GM/dL (10.7-15.3); LYMPH % 19.3 % (8-40); MCH 23.4 pg (25.7-33.7); MCHC 30.1 g/dl (32.0-36.0); MEAN CELL VOLUME 77.8 fl (80-96); MEAN PLT VOLUME 10.6 fl (7.5-11.1); MONO % 10.2 % (3.8-10.2); NEUT % 68.2 % (42.8-82.8); RBC 4.25 M/mm3 (3.60-5.2); RDW 20.7 % (11.6-15.6); WHITE BLOOD COUNT 10.5 K/mm3 (4.0-10.0)
[2017-08-25 08:19] LABS: ADD RBC MORPHOLOGY YES
[2017-08-25] MEDS: morphine SULFATE IMMEDIATE RELEASE 30 MG TAB PO PRN (08:27)
[2017-08-25 08:55] LABS: CHLORIDE 98 mmol/L (98-107); POTASSIUM 3.9 mmol/L (3.5-5.1); SODIUM 136 mmol/L (136-145)
[2017-08-25 09:03] LABS: ALBUMIN 2.9 g/dl (3.4-5.0); ALK PHOS 52 U/L (45-117); ANION GAP 8 (8-16); BILIRUBIN,TOTAL 0.4 mg/dL (0.2-1.0); BLOOD UREA NITROGEN 19 mg/dL (7-18); CALCIUM 8.5 mg/dL (8.5-10.1); CO2 30 mmol/L (21-32); CREATININE 1.4 mg/dL (0.55-1.02); GLUCOSE,RANDOM 103 mg/dL (74-106); MAGNESIUM 2.3 mg/dL (1.8-2.4); SGOT/AST 17 U/L (15-37); SGPT/ALT 13 U/L (12-78); TOT PROT 7.7 g/dl (6.4-8.2)
[2017-08-25 09:14] LABS: PLATELET COUNT 78 K/MM3 (134-434)
[2017-08-25 09:19] LABS: ANISOCYTOSIS 2+; PLATELET ESTIMATE DECREASED
[2017-08-25] MEDS: Methylnaltrexone Bromide 12 MG/0.6 ML KIT SQ SCH (10:24)
[2017-08-25] MEDS: amLODIPine BESYLATE 5 MG TABLET (FP) PO SCH (10:24)
[2017-08-25] MEDS: PANTOPRAZOLE 40 MG TABLET (FP) PO SCH (10:25)
[2017-08-25] MEDS: ASCORBIC ACID 1000 MG PO SCH (10:25)
[2017-08-25] MEDS: CALCIUM CARBONATE 650 MG TABLET PO SCH ×2 (10:25→22:33)
[2017-08-25] MEDS: SENNOSIDES 8.6MG TABLET (FP) PO SCH ×2 (10:25→22:32)
[2017-08-25] MEDS: ASCORBIC ACID 500 MG TABLET (FP) PO SCH (10:25)
[2017-08-25] MEDS: SERTRALINE HCL 25 MG TABLET (FP) PO SCH (10:25)
[2017-08-25] MEDS: ALLOPURINOL 100 MG TABLET (FP) PO SCH (10:25)
--- NOTE | 2017-08-25 12:33 | PN ---
Progress Note (short form) - Note Progress Note: Currently down for colonoscopy Of concern is falling platelets. Platelets decreased from 120K to 78K. If biopsies are performed at time of procedure, - platelets will be necessary.
--- NOTE | 2017-08-25 13:06 | PN ---
Progress Note, Physician Chief Complaint: Ms Painting says she is very tired from the procedures. No cp, sob, n/v. - Current Medication List Current Medications: Active Medications Albuterol Sulfate (Ventolin Hfa Inhaler -) 2 puff IH Q4H PRN PRN Reason: ASTHMA Allopurinol (Zyloprim -) 150 mg PO DAILY [facility] Last Admin: 08/25/17 10:25 Dose: Not Given Alprazolam (Xanax -) 0.5 mg PO Q8H PRN PRN Reason: ANXIETY Last Admin: 08/25/17 10:25 Dose: 0.5 mg Amlodipine Besylate (Norvasc -) 5 mg PO DAILY [facility] Last Admin: 08/25/17 10:24 Dose: 5 mg Ascorbic Acid (Vitamin C -) 1,000 mg PO DAILY [facility] Last Admin: 08/25/17 10:25 Dose: Not Given Calcium Carbonate (Calcium Carbonate -) 650 mg PO BID [facility] Last Admin: 08/25/17 10:25 Dose: Not Given Glipizide (Glucotrol Xl -) 10 mg PO BIDAC [facility] Last Admin: 08/25/17 06:04 Dose: Not Given Insulin Aspart (Novolog Vial Sliding Scale -) 1 vial SQ ACHS [facility] PRN Reason: Protocol Last Admin: 08/25/17 11:16 Dose: Not Given Methylnaltrexone [place] (Relistor -) 8 mg SQ DAILY [facility] Last Admin: 08/25/17 10:24 Dose: 8 mg Morphine Sulfate (Ms Contin -) 60 mg PO TID [facility] Last Admin: 08/25/17 05:22 Dose: 60 mg Morphine Sulfate (Msir -) 15 mg PO Q6H PRN PRN Reason: PAIN LEVEL 4 - 6 Last Admin: 08/25/17 08:27 Dose: 15 mg Non-Formulary Medication (Ascorbic Acid [Vitamin C]) 1,000 mg PO DAILY [facility] Last Admin: 08/25/17 10:25 Dose: Not Given Ondansetron HCl (Zofran Injection) 8 mg IVPB Q8H PRN PRN Reason: NAUSEA Pantoprazole Sodium (Protonix -) 40 mg PO DAILY [facility] Last Admin: 08/25/17 10:25 Dose: Not Given Senna (Senna -) 1 tab PO BID [facility] Last Admin: 08/25/17 10:25 Dose: Not Given Sertraline HCl (Zoloft -) 25 mg PO DAILY [facility] Last Admin: 08/25/17 10:25 Dose: 25 mg Sitagliptin Phosphate (Januvia -) 50 mg PO ACBK [facility] Last Admin: 08/25/17 06:04 Dose: Not Given - Objective Vital Signs: Vital Signs Temperature 36.7 C 08/25/17 09:00 Pulse Rate 75 08/25/17 09:00 Respiratory Rate 20 08/25/17 09:00 Blood Pressure 152/77 08/25/17 09:00 O2 Sat by Pulse Oximetry (%) 98 08/25/17 09:00 Constitutional: Yes: No Distress, Calm, Obese Cardiovascular: Yes: Regular Rate and Rhythm. No: Gallop, Murmur, Rub Respiratory: Yes: Regular, CTA Bilaterally. No: Rales, Rhonchi, Wheezes Gastrointestinal: Yes: Normal Bowel Sounds, Soft. No: Distention, Tenderness Extremities: Yes: WNL Edema: No Labs: CBC, BMP 08/25/17 06:30 08/25/17 06:30 INR, PTT INR 1.03 (0.82-1.09) 08/24/17 06:00 Assessment/Plan (1) Hypoxia Assessment/Plan: -possibly secondary to diaphragmatic hernia -outpatient evaluation for repair -appreciate pulmonary assistance -continue current management -repeat pre and post as an outpatient Code(s): R09.02 - HYPOXEMIA (2) Weakness Assessment/Plan: -secondary to ITP -resolved Code(s): R53.1 - WEAKNESS (3) Acute ITP Assessment/Plan: -hematology following and case d/w Dr Ty -receiving platelets after colonoscopy, biopsy performed -received 4/5 days of IVIg, had to stop secondary to renal function -response not as robust this time -on discharge, trial of rituxan Code(s): D69.3 - IMMUNE THROMBOCYTOPENIC PURPURA (4) CKD stage 3 secondary to diabetes Assessment/Plan: -continues to improve Code(s): E11.22 - TYPE 2 DIABETES MELLITUS W DIABETIC CHRONIC KIDNEY DISEASE; N18.3 - CHRONIC KIDNEY DISEASE, STAGE 3 (MODERATE) (5) Chronic pain Assessment/Plan: -continue MS contin -continue prn xanax Code(s): G89.29 - OTHER CHRONIC PAIN Qualifiers: Chronic pain type: chronic pain syndrome Qualified Code(s): G89.4 - Chronic pain syndrome (6) Diabetes mellitus Assessment/Plan: -continue home regimen -FSBS and SSI Code(s): E11.9 - TYPE 2 DIABETES MELLITUS WITHOUT COMPLICATIONS (7) HTN (hypertension) Assessment/Plan: -continue amlodipine -may be contributing to lower extremity edema Code(s): I10 - ESSENTIAL (PRIMARY) HYPERTENSION Qualifiers: (8) Anemia -appreciate GI assistance -s/p scopes -polyp biopsied and angiodysplasia noted Dispo -plan for discharge tomorrow
[2017-08-25] MEDS ORDERED: LIDOCAINE HCL/PF 2% SDV 5ML VIAL ONE (13:47)
[2017-08-25] MEDS ORDERED: PROPOFOL 20 ML ONE ×5 (13:47)
--- NOTE | 2017-08-25 15:38 | PN ---
Progress Note (short form) - Note Progress Note: Patient seen and examined post upper and lower endoscopy Discussed with Dr. Campbell Polyp removed Right sided angiodysplasia No obvious bleeding site detected Last Vital Signs Temp Pulse Resp BP Pulse Ox 97.7 F 68 19 136/61 95 08/25/17 15:04 08/25/17 15:19 08/25/17 15:19 08/25/17 15:19 08/25/17 15:19 Awake lungs -clear anteriorly Cor- RSR Soft abd LE edema CBC, BMP 08/25/17 06:30 08/25/17 06:30 Current Medications Generic Name Dose Route Start Last Admin Trade Name Freq PRN Reason Stop Dose Admin Albuterol Sulfate 2 puff 08/17/17 15:49 Ventolin Hfa Inhaler - IH Q4H PRN ASTHMA Allopurinol 150 mg 08/18/17 10:00 08/25/17 10:25 Zyloprim - PO Not Given DAILY [facility] Alprazolam 0.5 mg 08/22/17 12:54 08/25/17 10:25 Xanax - PO 0.5 mg Q8H PRN Administration ANXIETY Amlodipine Besylate 5 mg 08/18/17 10:00 08/25/17 10:24 Norvasc - PO 5 mg DAILY [facility] Administration Ascorbic Acid 1,000 mg 08/18/17 10:00 08/25/17 10:25 Vitamin C - PO Not Given DAILY [facility] Calcium Carbonate 650 mg 08/17/17 22:00 08/25/17 10:25 Calcium Carbonate - PO Not Given BID [facility] Glipizide 10 mg 08/17/17 16:30 08/25/17 06:04 Glucotrol Xl - PO Not Given BIDAC [facility] Insulin Aspart 1 vial 08/18/17 22:00 08/25/17 11:16 Novolog Vial Sliding Scale - SQ Not Given ACHS [facility] Protocol Methylnaltrexone [place] 8 mg 08/23/17 10:00 08/25/17 10:24 Relistor - SQ 8 mg DAILY [facility] Administration Morphine Sulfate 60 mg 08/17/17 14:00 08/25/17 05:22 Ms Contin - PO 60 mg TID [facility] Administration Morphine Sulfate 15 mg 08/20/17 19:48 08/25/17 08:27 Msir - PO 15 mg Q6H PRN Administration PAIN LEVEL 4 - 6 Non-Formulary Medication 1,000 mg 08/18/17 10:00 08/25/17 10:25 Ascorbic Acid [Vitamin C] PO Not Given DAILY [facility] Ondansetron HCl 8 mg 08/23/17 08:14 Zofran Injection IVPB Q8H PRN NAUSEA Pantoprazole Sodium 40 mg 08/18/17 10:00 08/25/17 10:25 Protonix - PO Not Given DAILY [facility] Senna 1 tab 08/21/17 12:00 08/25/17 10:25 Senna - PO Not Given BID [facility] Sertraline HCl 25 mg 08/18/17 10:00 08/25/17 10:25 Zoloft - PO 25 mg DAILY [facility] Administration Sitagliptin Phosphate 50 mg 08/18/17 07:00 08/25/17 06:04 Januvia - PO Not Given ACBK [facility] Impression: S/p upper and lower endoscopy Right sided angiodysplasia--?? site of bleeding when patient is thrombocytopenic ITP s/p 4 days of Gamma globulin ARLETTE - secondary to Gamma globulin - improving Mantle cell lymphoma Fe++ deficiency Thrombocytopenia DM HBP Back pain SOB/Dyspnea Diminished response to Gamma globulin as compared to prior treatment. Current fall in platelets to 78K. In light of polpectomy, will give platelet infusion and attempt to get platelet count above 100K. Will maintain steroids for now. Consider Rituxin therapy in future.
[2017-08-25] MEDS ORDERED: PT OWN MED DRAWER 7, Y5N ONE (16:06)
[2017-08-25 16:52] LABS: HEMOGLOBIN 10.2 GM/dL (10.7-15.3); MCH 23.9 pg (25.7-33.7); MCHC 30.6 g/dl (32.0-36.0)
[2017-08-25 16:56] LABS: BASO % 0.2 % (0-2.0); EOS % 1.8 % (0-4.5); HEMATOCRIT 33.2 % (32.4-45.2); LYMPH % 10.3 % (8-40); MEAN CELL VOLUME 78.3 fl (80-96); MEAN PLT VOLUME 10.6 fl (7.5-11.1); MONO % 8.8 % (3.8-10.2); NEUT % 78.9 % (42.8-82.8); PLATELET COUNT 47 K/MM3 (134-434); RBC 4.24 M/mm3 (3.60-5.2); RDW 20.4 % (11.6-15.6); WHITE BLOOD COUNT 10.9 K/mm3 (4.0-10.0)
--- NOTE | 2017-08-25 17:06 | PN ---
Progress Note, Physician History of Present Illness: Stable dyspnea. Plts recovered, endoscopy showed right-sided angiodysplasia, polyp removed. - Current Medication List Current Medications: Active Medications Albuterol Sulfate (Ventolin Hfa Inhaler -) 2 puff IH Q4H PRN PRN Reason: ASTHMA Allopurinol (Zyloprim -) 150 mg PO DAILY [facility] Last Admin: 08/25/17 10:25 Dose: Not Given Alprazolam (Xanax -) 0.5 mg PO Q8H PRN PRN Reason: ANXIETY Last Admin: 08/25/17 10:25 Dose: 0.5 mg Amlodipine Besylate (Norvasc -) 5 mg PO DAILY [facility] Last Admin: 08/25/17 10:24 Dose: 5 mg Ascorbic Acid (Vitamin C -) 1,000 mg PO DAILY [facility] Last Admin: 08/25/17 10:25 Dose: Not Given Calcium Carbonate (Calcium Carbonate -) 650 mg PO BID [facility] Last Admin: 08/25/17 10:25 Dose: Not Given Glipizide (Glucotrol Xl -) 10 mg PO BIDAC [facility] Last Admin: 08/25/17 16:14 Dose: Not Given Insulin Aspart (Novolog Vial Sliding Scale -) 1 vial SQ ACHS [facility] PRN Reason: Protocol Last Admin: 08/25/17 16:15 Dose: Not Given Methylnaltrexone [place] (Relistor -) 8 mg SQ DAILY [facility] Last Admin: 08/25/17 10:24 Dose: 8 mg Morphine Sulfate (Ms Contin -) 60 mg PO TID [facility] Last Admin: 08/25/17 16:10 Dose: 60 mg Morphine Sulfate (Msir -) 15 mg PO Q6H PRN PRN Reason: PAIN LEVEL 4 - 6 Last Admin: 08/25/17 08:27 Dose: 15 mg Non-Formulary Medication (Ascorbic Acid [Vitamin C]) 1,000 mg PO DAILY [facility] Last Admin: 08/25/17 10:25 Dose: Not Given Ondansetron HCl (Zofran Injection) 8 mg IVPB Q8H PRN PRN Reason: NAUSEA Pantoprazole Sodium (Protonix -) 40 mg PO DAILY [facility] Last Admin: 08/25/17 10:25 Dose: Not Given Senna (Senna -) 1 tab PO BID [facility] Last Admin: 08/25/17 10:25 Dose: Not Given Sertraline HCl (Zoloft -) 25 mg PO DAILY [facility] Last Admin: 08/25/17 10:25 Dose: 25 mg Sitagliptin Phosphate (Januvia -) 50 mg PO ACBK [facility] Last Admin: 08/25/17 06:04 Dose: Not Given - Objective Vital Signs: Vital Signs Temperature 98.0 F 08/25/17 16:03 Pulse Rate 69 08/25/17 16:03 Respiratory Rate 20 08/25/17 16:03 Blood Pressure 150/69 08/25/17 16:03 O2 Sat by Pulse Oximetry (%) 97 08/25/17 16:03 Constitutional: Yes: No Distress, Calm Neck: Yes: Supple Cardiovascular: Yes: Regular Rate and Rhythm Respiratory: Yes: Regular, Diminished Gastrointestinal: Yes: Soft, Abdomen, Obese, Hypoactive Bowel Sounds Edema: Yes Labs: CBC, BMP 08/25/17 06:30 INR, PTT INR 1.03 (0.82-1.09) 08/24/17 06:00 Problem List - Problems (1) Acute ITP Code(s): D69.3 - IMMUNE THROMBOCYTOPENIC PURPURA (2) Anemia Code(s): D64.9 - ANEMIA, UNSPECIFIED Qualifiers: Anemia type: iron deficiency Iron deficiency anemia type: chronic blood loss Qualified Code(s): D50.0 - Iron deficiency anemia secondary to blood loss (chronic) (3) CKD stage 3 secondary to diabetes Code(s): E11.22 - TYPE 2 DIABETES MELLITUS W DIABETIC CHRONIC KIDNEY DISEASE; N18.3 - CHRONIC KIDNEY DISEASE, STAGE 3 (MODERATE) (4) Diabetes mellitus Code(s): E11.9 - TYPE 2 DIABETES MELLITUS WITHOUT COMPLICATIONS Qualifiers: Diabetes mellitus type: type 2 (5) Diaphragmatic hernia Code(s): K44.9 - DIAPHRAGMATIC HERNIA WITHOUT OBSTRUCTION OR GANGRENE Qualifiers: Obstruction and gangrene presence: without obstruction or gangrene Qualified Code(s): K44.9 - Diaphragmatic hernia without obstruction or gangrene (6) HTN (hypertension) Code(s): I10 - ESSENTIAL (PRIMARY) HYPERTENSION Qualifiers: Hypertension type: essential hypertension Qualified Code(s): I10 - Essential (primary) hypertension (7) Mantle cell lymphoma Code(s): C83.10 - MANTLE CELL LYMPHOMA, UNSPECIFIED SITE Assessment/Plan 08/18/2017 Normal biventricular size and fxn, mild LAE, MR, TR 08/29/2014 Normal LV size and fxn without sig valve abnl 1. Recurrent ITP h/o splenectomy, antiphospholipids worse 2. Recurrent dyspnea on exertion after failure of left diaphragmatic hernia repair/mesh 3. HTN 4. NIDDM 5. History of Mantle Cell Lymphoma 6. Acute on CKD 3 referable to IVIG and hydronephrosis improving 7. Chronic interstitial lung disease 8. 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 Resume Lisinopril 10 qd once renal fxn stable, continue Norvasc 5 qd 2. DVT and GI prophylaxis 3. Completed IVIG/steroids course with monitor Plt, usual transfusion parameters , IV Venofer, considering Rituxan 4. Consideration for re-op diaphragmatic hernia repair after recovery of plt counts 5. O2, BD as needed, wrap legs
--- NOTE | 2017-08-25 17:33 | PN ---
Progress Note (short form) - Note Progress Note: GI Procedures Note: Please see scanned EGD and colonoscopy reports. A single small colon polyp was removed and the site was endoclipped. Discussed with Dr. Ty. Problem List - Problems (1) Hypoxia Code(s): R09.02 - HYPOXEMIA (2) Weakness Code(s): R53.1 - WEAKNESS (3) Thrombocytopenia Code(s): D69.6 - THROMBOCYTOPENIA, UNSPECIFIED (4) SOB (shortness of breath) Code(s): R06.02 - SHORTNESS OF BREATH
[2017-08-26 00:07] LABS: HEMATOCRIT 32.5 % (32.4-45.2); HEMOGLOBIN 9.9 GM/dL (10.7-15.3); MCH 23.7 pg (25.7-33.7); MCHC 30.4 g/dl (32.0-36.0); RBC 4.17 M/mm3 (3.60-5.2); RDW 21.3 % (11.6-15.6); WHITE BLOOD COUNT 14.3 K/mm3 (4.0-10.0)
[2017-08-26 00:58] LABS: MEAN PLT VOLUME 9.9 fl (7.5-11.1); PLATELET COUNT 84 K/MM3 (134-434)
[2017-08-26] MEDS: ALPRAZolam 0.25 MG TABLET PO PRN ×2 (01:57→10:02)
[2017-08-26] MEDS: morphine SO4 SUSTAINED ACTING 30 MG TABLET.SA PO SCH ×3 (06:03→21:05)
[2017-08-26] MEDS: INSULIN SLIDING SCALE (NOVOLOG) 1 VIAL SQ SCH ×4 (06:03→21:06)
[2017-08-26] MEDS: sitaGLIPtin PHOSPHATE 50 MG TABLET PO SCH (06:28)
[2017-08-26] MEDS: glipiZIDE-XL 10 MG TAB.ER.24 (FP) PO SCH ×2 (06:28→17:17)
[2017-08-26 08:14] LABS: ALBUMIN 2.8 g/dl (3.4-5.0); ALK PHOS 47 U/L (45-117); ANION GAP 5 (8-16); BILIRUBIN,TOTAL 0.4 mg/dL (0.2-1.0); BLOOD UREA NITROGEN 14 mg/dL (7-18); CALCIUM 8.5 mg/dL (8.5-10.1); CHLORIDE 100 mmol/L (98-107); CO2 33 mmol/L (21-32); CREATININE 1.3 mg/dL (0.55-1.02); GLUCOSE,RANDOM 115 mg/dL (74-106); MAGNESIUM 2.2 mg/dL (1.8-2.4); PHOSPHOROUS 3.6 mg/dL (2.5-4.9); POTASSIUM 3.9 mmol/L (3.5-5.1); SGOT/AST 10 U/L (15-37); SGPT/ALT 11 U/L (12-78); SODIUM 138 mmol/L (136-145); TOT PROT 7.2 g/dl (6.4-8.2)
[2017-08-26 08:23] LABS: BASO % 0.5 % (0-2.0); EOS % 1.9 % (0-4.5); HEMATOCRIT 30.3 % (32.4-45.2); HEMOGLOBIN 9.1 GM/dL (10.7-15.3); LYMPH % 13.8 % (8-40); MCH 23.6 pg (25.7-33.7); MEAN CELL VOLUME 78.7 fl (80-96); MEAN PLT VOLUME 9.6 fl (7.5-11.1); MONO % 10.2 % (3.8-10.2); NEUT % 73.6 % (42.8-82.8); RBC 3.85 M/mm3 (3.60-5.2); RDW 25.1 % (11.6-15.6); WHITE BLOOD COUNT 9.8 K/mm3 (4.0-10.0)
[2017-08-26 09:29] LABS: PLATELET COUNT 65 K/MM3 (134-434); PLATELET ESTIMATE MOD DECREASED
[2017-08-26] MEDS: morphine SULFATE IMMEDIATE RELEASE 30 MG TAB PO PRN ×2 (09:59→17:28)
[2017-08-26] MEDS ORDERED: DEXAMETHASONE SOD PHOSPHATE 20 MG/5 ML VIAL IVPB SCH (10:00)
[2017-08-26] MEDS: ASCORBIC ACID 500 MG TABLET (FP) PO SCH (10:00)
[2017-08-26] MEDS: SERTRALINE HCL 25 MG TABLET (FP) PO SCH (10:00)
[2017-08-26] MEDS: SENNOSIDES 8.6MG TABLET (FP) PO SCH ×2 (10:00→21:06)
[2017-08-26] MEDS: amLODIPine BESYLATE 5 MG TABLET (FP) PO SCH (10:00)
[2017-08-26] MEDS: PANTOPRAZOLE 40 MG TABLET (FP) PO SCH (10:01)
[2017-08-26] MEDS: ASCORBIC ACID 1000 MG PO SCH (10:04)
[2017-08-26] MEDS: CALCIUM CARBONATE 650 MG TABLET PO SCH ×2 (10:04→21:05)
[2017-08-26] MEDS: ALLOPURINOL 100 MG TABLET (FP) PO SCH (10:05)
--- NOTE | 2017-08-26 10:38 | PN ---
Progress Note, Physician History of Present Illness: Feeling OK this morning, just tired form the procedures yesterday. Had been on Decadron IV, but looks like order fell of now (did not receive any today). Platelets 65,000 this morning, no signs of bleeding. - Current Medication List Current Medications: Active Medications Albuterol Sulfate (Ventolin Hfa Inhaler -) 2 puff IH Q4H PRN PRN Reason: ASTHMA Allopurinol (Zyloprim -) 150 mg PO DAILY [facility] Last Admin: 08/26/17 10:05 Dose: 150 mg Alprazolam (Xanax -) 0.5 mg PO Q8H PRN PRN Reason: ANXIETY Last Admin: 08/26/17 10:02 Dose: 0.5 mg Amlodipine Besylate (Norvasc -) 5 mg PO DAILY [facility] Last Admin: 08/26/17 10:00 Dose: 5 mg Ascorbic Acid (Vitamin C -) 1,000 mg PO DAILY [facility] Last Admin: 08/26/17 10:00 Dose: 1,000 mg Calcium Carbonate (Calcium Carbonate -) 650 mg PO BID [facility] Last Admin: 08/26/17 10:04 Dose: 650 mg Dexamethasone Sodium Phosphate (Decadron Injection -) 40 mg IVPB DAILY [facility] Glipizide (Glucotrol Xl -) 10 mg PO BIDAC [facility] Last Admin: 08/26/17 06:28 Dose: 10 mg Insulin Aspart (Novolog Vial Sliding Scale -) 1 vial SQ ACHS [facility] PRN Reason: Protocol Last Admin: 08/26/17 06:03 Dose: Not Given Methylnaltrexone [place] (Relistor -) 8 mg SQ DAILY [facility] Last Admin: 08/25/17 10:24 Dose: 8 mg Morphine Sulfate (Ms Contin -) 60 mg PO TID [facility] Last Admin: 08/26/17 06:03 Dose: 60 mg Morphine Sulfate (Msir -) 15 mg PO Q6H PRN PRN Reason: PAIN LEVEL 4 - 6 Last Admin: 08/26/17 09:59 Dose: 15 mg Non-Formulary Medication (Ascorbic Acid [Vitamin C]) 1,000 mg PO DAILY [facility] Last Admin: 08/26/17 10:04 Dose: 1,000 mg Ondansetron HCl (Zofran Injection) 8 mg IVPB Q8H PRN PRN Reason: NAUSEA Pantoprazole Sodium (Protonix -) 40 mg PO DAILY [facility] Last Admin: 08/26/17 10:01 Dose: 40 mg Senna (Senna -) 1 tab PO BID [facility] Last Admin: 08/26/17 10:00 Dose: 1 tab Sertraline HCl (Zoloft -) 25 mg PO DAILY [facility] Last Admin: 08/26/17 10:00 Dose: 25 mg Sitagliptin Phosphate (Januvia -) 50 mg PO ACBK [facility] Last Admin: 08/26/17 06:28 Dose: 50 mg - Objective Vital Signs: Vital Signs Temperature 98.9 F 08/26/17 05:59 Pulse Rate 69 08/26/17 05:59 Respiratory Rate 20 08/26/17 05:59 Blood Pressure 140/69 08/26/17 05:59 O2 Sat by Pulse Oximetry (%) 98 08/25/17 21:00 Constitutional: Yes: No Distress, Calm Eyes: Yes: Conjunctiva Clear, EOM Intact, PERRL HENT: Yes: Atraumatic, Normocephalic Neck: Yes: Supple, Trachea Midline Cardiovascular: Yes: Regular Rate and Rhythm, S1, S2 Respiratory: Yes: Regular, Diminished (at bases (right > left)). No: Rales, Rhonchi, Wheezes Gastrointestinal: Yes: Normal Bowel Sounds, Soft, Abdomen, Obese. No: Distention, Tenderness Edema: Yes Edema: LLE: Trace, RLE: Trace Neurological: Yes: Alert, Oriented Labs: CBC, BMP 08/26/17 06:00 08/26/17 06:00 INR, PTT INR 1.03 (0.82-1.09) 08/24/17 06:00 Assessment/Plan Current Active Problems ITP Mantle Cell Lymphoma GI bleed Intestinal angiodysplasia Anemia due to GI bleed Diaphragmatic Hernia Diabetes Melitus Severe Osteoarthritis of right hip Depression Calculus of kidney (Acute) Hypoxia (Acute) SOB (shortness of breath) (Acute) Weakness (Acute) -restart steroids for ITP (appears to have dropped off med list) -cont pain meds for OA -will have to follow platelets and plans for Rituxin in future per hematology
[2017-08-26] MEDS ORDERED: INSULIN (NOVOLOG) ASPART 100 UNITS/ML 10ML VIAL ONE (10:59)
[2017-08-26] MEDS: Methylnaltrexone Bromide 12 MG/0.6 ML KIT SQ SCH (11:00)
--- NOTE | 2017-08-26 12:27 | PN ---
Progress Note (short form) - Note Progress Note: PULMONARY STABLE POST GI PROCEDURE VSS/AFEBRILE ANICTERIC DISTANT B/L BREATH SOUNDS S1S2 BS+ NO EDEMA LABS/MEDS/NOTES/IMAGES REVIEWED SPO2 87% ON AMBULATION ROOM AIR Recurrent ITP Left Diaphragmatic Hernia Acute on Chronic Renal Failure Interstitial Lung Disease HTN DM h/o Lymphoma - monitor urine output, creatinine - on Dexamethasone - O2 to keep SpO2 >90% - inhaled bronchodilators - monitor CBC/PLTS - DVT prophylaxis Jovanni LARRY MD Problem List - Problems (1) Abdominal pain Code(s): R10.9 - UNSPECIFIED ABDOMINAL PAIN (2) Acute ITP Code(s): D69.3 - IMMUNE THROMBOCYTOPENIC PURPURA (3) Anemia Code(s): D64.9 - ANEMIA, UNSPECIFIED Qualifiers: Anemia type: iron deficiency Iron deficiency anemia type: chronic blood loss Qualified Code(s): D50.0 - Iron deficiency anemia secondary to blood loss (chronic) (4) CKD stage 3 secondary to diabetes Code(s): E11.22 - TYPE 2 DIABETES MELLITUS W DIABETIC CHRONIC KIDNEY DISEASE; N18.3 - CHRONIC KIDNEY DISEASE, STAGE 3 (MODERATE) (5) DVT prophylaxis Code(s): [id number] - (6) Diabetes mellitus Code(s): E11.9 - TYPE 2 DIABETES MELLITUS WITHOUT COMPLICATIONS Qualifiers: Diabetes mellitus type: type 2 (7) Diaphragmatic hernia Code(s): K44.9 - DIAPHRAGMATIC HERNIA WITHOUT OBSTRUCTION OR GANGRENE Qualifiers: Obstruction and gangrene presence: without obstruction or gangrene Qualified Code(s): K44.9 - Diaphragmatic hernia without obstruction or gangrene (8) HTN (hypertension) Code(s): I10 - ESSENTIAL (PRIMARY) HYPERTENSION Qualifiers: Hypertension type: essential hypertension Qualified Code(s): I10 - Essential (primary) hypertension (9) Mantle cell lymphoma Code(s): C83.10 - MANTLE CELL LYMPHOMA, UNSPECIFIED SITE (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
--- NOTE | 2017-08-26 12:28 | PN ---
Progress Note (short form) - Note Progress Note: Patient seen and examined chart reviewed s/p One unit of SDU platelets overnight, Platelets improved to 80s, this am is again 65K O/E General : NAD HEENT: NCAT Cor: RRR Lungs: clear anteriorly Abd: soft NT LE: + edema Last Vital Signs Temp Pulse Resp BP Pulse Ox 98.9 F 69 20 140/69 98 08/26/17 05:59 08/26/17 05:59 08/26/17 05:59 08/26/17 05:59 08/25/17 21:00 CBC, BMP 08/26/17 06:00 08/26/17 06:00 Current Medications Generic Name Dose Route Start Last Admin Trade Name Freq PRN Reason Stop Dose Admin Albuterol Sulfate 2 puff 08/17/17 15:49 Ventolin Hfa Inhaler - IH Q4H PRN ASTHMA Allopurinol 150 mg 08/18/17 10:00 08/26/17 10:05 Zyloprim - PO 150 mg DAILY [facility] Administration Alprazolam 0.5 mg 08/22/17 12:54 08/26/17 10:02 Xanax - PO 0.5 mg Q8H PRN Administration ANXIETY Amlodipine Besylate 5 mg 08/18/17 10:00 08/26/17 10:00 Norvasc - PO 5 mg DAILY [facility] Administration Ascorbic Acid 1,000 mg 08/18/17 10:00 08/26/17 10:00 Vitamin C - PO 1,000 mg DAILY [facility] Administration Calcium Carbonate 650 mg 08/17/17 22:00 08/26/17 10:04 Calcium Carbonate - PO 650 mg BID [facility] Administration Dexamethasone Sodium Phosphate 40 mg 08/26/17 10:12 Decadron Injection - IVPB DAILY [facility] Glipizide 10 mg 08/17/17 16:30 08/26/17 06:28 Glucotrol Xl - PO 10 mg BIDAC [facility] Administration Insulin Aspart 1 vial 08/18/17 22:00 08/26/17 11:41 Novolog Vial Sliding Scale - SQ Not Given ACHS [facility] Protocol Methylnaltrexone [place] 8 mg 08/23/17 10:00 08/26/17 11:00 Relistor - SQ 8 mg DAILY [facility] Administration Morphine Sulfate 60 mg 08/17/17 14:00 08/26/17 06:03 Ms Contin - PO 60 mg TID [facility] Administration Morphine Sulfate 15 mg 08/20/17 19:48 08/26/17 09:59 Msir - PO 15 mg Q6H PRN Administration PAIN LEVEL 4 - 6 Non-Formulary Medication 1,000 mg 08/18/17 10:00 08/26/17 10:04 Ascorbic Acid [Vitamin C] PO 1,000 mg DAILY [facility] Administration Ondansetron HCl 8 mg 08/23/17 08:14 Zofran Injection IVPB Q8H PRN NAUSEA Pantoprazole Sodium 40 mg 08/18/17 10:00 08/26/17 10:01 Protonix - PO 40 mg DAILY [facility] Administration Senna 1 tab 08/21/17 12:00 08/26/17 10:00 Senna - PO 1 tab BID [facility] Administration Sertraline HCl 25 mg 08/18/17 10:00 08/26/17 10:00 Zoloft - PO 25 mg DAILY [facility] Administration Sitagliptin Phosphate 50 mg 08/18/17 07:00 08/26/17 06:28 Januvia - PO 50 mg ACBK [facility] Administration ITP s/p 4 days of Gamma globulin ARLETTE - secondary to Gamma globulin - improving Mantle cell lymphoma Fe++ deficiency ,S/p upper and lower endoscopy Right sided angiodysplasia DM HBP Back pain SOB/Dyspnea Steroids, Dex 40mg IV daily To consider rituxan will maintain Platelets >50K
--- NOTE | 2017-08-26 12:38 | PN ---
GI Progress Note Subjective: GI NOte: No overt bleeding after endoscopies but platelets are down to 65K. Has back pain but no abdominal pain. - Objective Vital Signs: Vital Signs Temperature 98.9 F 08/26/17 05:59 Pulse Rate 69 08/26/17 05:59 Respiratory Rate 20 08/26/17 05:59 Blood Pressure 140/69 08/26/17 05:59 O2 Sat by Pulse Oximetry (%) 98 08/25/17 21:00 Laboratory Tests 08/24/17 08/25/17 08/25/17 06:00 06:30 16:35 Plt Count 120 L 78 L D 47 L D 08/25/17 08/26/17 23:40 06:00 Plt Count 84 L D 65 L D Constitutional: No Distress ...Auscultate: Yes: Normoactive Bowel Sounds ...Palpate: Yes: Soft, Other (nontender) Labs: CBC, BMP 08/26/17 06:00 08/26/17 06:00 INR, PTT INR 1.03 (0.82-1.09) 08/24/17 06:00 Assessment/Plan Stable day 1 after colonoscopy with polypectomy Started on steroids to raise her platelet count. May need platelet transfusion if they falls further Problem List - Problems (1) Anemia Assessment/Plan: I believe that the anemia and occult bleeding reflect bleeding from vascular ectasias rather than her small polyp. Code(s): D64.9 - ANEMIA, UNSPECIFIED Qualifiers: Anemia type: iron deficiency Iron deficiency anemia type: chronic blood loss Qualified Code(s): D50.0 - Iron deficiency anemia secondary to blood loss (chronic) (2) Hypoxia Code(s): R09.02 - HYPOXEMIA (3) Weakness Code(s): R53.1 - WEAKNESS (4) Thrombocytopenia Code(s): D69.6 - THROMBOCYTOPENIA, UNSPECIFIED (5) SOB (shortness of breath) Code(s): R06.02 - SHORTNESS OF BREATH (6) Occult blood in stools Code(s): R19.5 - OTHER FECAL ABNORMALITIES
--- NOTE | 2017-08-26 12:50 | PN ---
Progress Note, Physician Chief Complaint: Events noted Not in distress Denies chest pain or palpitations History of Present Illness: Patient was seen and examined. Awake and alert. Chart was reviewed Denies chest pain, SOB or palpitations - Current Medication List Current Medications: Active Medications Albuterol Sulfate (Ventolin Hfa Inhaler -) 2 puff IH Q4H PRN PRN Reason: ASTHMA Allopurinol (Zyloprim -) 150 mg PO DAILY [facility] Last Admin: 08/26/17 10:05 Dose: 150 mg Alprazolam (Xanax -) 0.5 mg PO Q8H PRN PRN Reason: ANXIETY Last Admin: 08/26/17 10:02 Dose: 0.5 mg Amlodipine Besylate (Norvasc -) 5 mg PO DAILY [facility] Last Admin: 08/26/17 10:00 Dose: 5 mg Ascorbic Acid (Vitamin C -) 1,000 mg PO DAILY [facility] Last Admin: 08/26/17 10:00 Dose: 1,000 mg Calcium Carbonate (Calcium Carbonate -) 650 mg PO BID [facility] Last Admin: 08/26/17 10:04 Dose: 650 mg Dexamethasone Sodium Phosphate (Decadron Injection -) 40 mg IVPB DAILY [facility] Glipizide (Glucotrol Xl -) 10 mg PO BIDAC [facility] Last Admin: 08/26/17 06:28 Dose: 10 mg Insulin Aspart (Novolog Vial Sliding Scale -) 1 vial SQ ACHS [facility] PRN Reason: Protocol Last Admin: 08/26/17 11:41 Dose: Not Given Methylnaltrexone [place] (Relistor -) 8 mg SQ DAILY [facility] Last Admin: 08/26/17 11:00 Dose: 8 mg Morphine Sulfate (Ms Contin -) 60 mg PO TID [facility] Last Admin: 08/26/17 06:03 Dose: 60 mg Morphine Sulfate (Msir -) 15 mg PO Q6H PRN PRN Reason: PAIN LEVEL 4 - 6 Last Admin: 08/26/17 09:59 Dose: 15 mg Non-Formulary Medication (Ascorbic Acid [Vitamin C]) 1,000 mg PO DAILY [facility] Last Admin: 08/26/17 10:04 Dose: 1,000 mg Ondansetron HCl (Zofran Injection) 8 mg IVPB Q8H PRN PRN Reason: NAUSEA Pantoprazole Sodium (Protonix -) 40 mg PO DAILY [facility] Last Admin: 08/26/17 10:01 Dose: 40 mg Senna (Senna -) 1 tab PO BID [facility] Last Admin: 08/26/17 10:00 Dose: 1 tab Sertraline HCl (Zoloft -) 25 mg PO DAILY [facility] Last Admin: 08/26/17 10:00 Dose: 25 mg Sitagliptin Phosphate (Januvia -) 50 mg PO ACBK [facility] Last Admin: 08/26/17 06:28 Dose: 50 mg - Objective Vital Signs: Vital Signs Temperature 98.9 F 08/26/17 05:59 Pulse Rate 69 08/26/17 05:59 Respiratory Rate 20 08/26/17 05:59 Blood Pressure 140/69 08/26/17 05:59 O2 Sat by Pulse Oximetry (%) 98 08/25/17 21:00 HENT: Yes: Atraumatic Neck: Yes: Supple Cardiovascular: Yes: Regular Rate and Rhythm, S1, S2 Respiratory: Yes: Diminished Gastrointestinal: Yes: Normal Bowel Sounds, Soft. No: Tenderness Edema: No Labs: CBC, BMP 08/26/17 06:00 08/26/17 06:00 Problem List - Problems (1) SOB (shortness of breath) Code(s): R06.02 - SHORTNESS OF BREATH (2) Thrombocytopenia Code(s): D69.6 - THROMBOCYTOPENIA, UNSPECIFIED (3) Weakness Code(s): R53.1 - WEAKNESS (4) Acute ITP Code(s): D69.3 - IMMUNE THROMBOCYTOPENIC PURPURA (5) Anemia Code(s): D64.9 - ANEMIA, UNSPECIFIED Qualifiers: Anemia type: iron deficiency Iron deficiency anemia type: chronic blood loss Qualified Code(s): D50.0 - Iron deficiency anemia secondary to blood loss (chronic) (6) CKD stage 3 secondary to diabetes Code(s): E11.22 - TYPE 2 DIABETES MELLITUS W DIABETIC CHRONIC KIDNEY DISEASE; N18.3 - CHRONIC KIDNEY DISEASE, STAGE 3 (MODERATE) (7) HTN (hypertension) Code(s): I10 - ESSENTIAL (PRIMARY) HYPERTENSION Qualifiers: Hypertension type: essential hypertension Qualified Code(s): I10 - Essential (primary) hypertension (8) Hyperkalemia Code(s): E87.5 - HYPERKALEMIA (9) ITP (idiopathic thrombocytopenic purpura) Code(s): D69.3 - IMMUNE THROMBOCYTOPENIC PURPURA (10) Mantle cell lymphoma Code(s): C83.10 - MANTLE CELL LYMPHOMA, UNSPECIFIED SITE (11) Staghorn kidney stones Code(s): N20.0 - CALCULUS OF KIDNEY (12) T2DM (type 2 diabetes mellitus) Code(s): E11.9 - TYPE 2 DIABETES MELLITUS WITHOUT COMPLICATIONS Qualifiers: Diabetes mellitus halfway insulin use: without bed bug exterminator use Diabetes mellitus complication status: without complication Qualified Code(s): E11.9 - Type 2 diabetes mellitus without complications Assessment/Plan 1. Recurrent ITP h/o splenectomy and antiphospholipids 2. Recurrent dyspnea on exertion after failure of left diaphragmatic hernia repair/mesh 3. HTN 4. NIDDM 5. History of Mantle Cell Lymphoma 6. Acute on CKD 3, staghorn calculi and hydronephrosis 7. Chronic interstitial lung disease PLAN: 1. Resume Lisinopril once renal function stabilizes. Continue Norvasc 5 mg QD 2. DVT and GI prophylaxis 3. Steroids and IVIG course with monitoring CBC 4. Consideration for re-op diaphragmatic hernia repair after recovery of platelet counts 5. O2 and bronchodilators as needed 6. Monitor I/Os and renal function 7. GI input noted Further plans are to follow Abdon Salinas MD
[2017-08-26] MEDS ORDERED: INSULIN DETEMIR 100 UNITS/ML MDV SQ ONE (18:01)
[2017-08-27] MEDS: morphine SULFATE IMMEDIATE RELEASE 30 MG TAB PO PRN (00:09)
[2017-08-27] MEDS: ALPRAZolam 0.25 MG TABLET PO PRN ×3 (01:24→23:58)
[2017-08-27] MEDS: morphine SO4 SUSTAINED ACTING 30 MG TABLET.SA PO SCH ×3 (05:33→21:52)
[2017-08-27] MEDS: INSULIN SLIDING SCALE (NOVOLOG) 1 VIAL SQ SCH ×4 (06:29→21:55)
[2017-08-27] MEDS: glipiZIDE-XL 10 MG TAB.ER.24 (FP) PO SCH ×2 (06:29→16:46)
[2017-08-27] MEDS: sitaGLIPtin PHOSPHATE 50 MG TABLET PO SCH (06:29)
[2017-08-27 08:23] LABS: HEMATOCRIT 30.7 % (32.4-45.2); HEMOGLOBIN 9.4 GM/dL (10.7-15.3); MCH 23.8 pg (25.7-33.7); MCHC 30.5 g/dl (32.0-36.0); MEAN PLT VOLUME 10.8 fl (7.5-11.1); RBC 3.94 M/mm3 (3.60-5.2); RDW 26.5 % (11.6-15.6); WHITE BLOOD COUNT 5.6 K/mm3 (4.0-10.0)
[2017-08-27] MEDS: SERTRALINE HCL 25 MG TABLET (FP) PO SCH (09:25)
[2017-08-27] MEDS: SENNOSIDES 8.6MG TABLET (FP) PO SCH ×2 (09:25→21:53)
[2017-08-27] MEDS: PANTOPRAZOLE 40 MG TABLET (FP) PO SCH (09:25)
[2017-08-27] MEDS: DEXAMETHASONE SOD PHOSPHATE 10 MG/1 ML VIAL IVPB SCH (09:25)
[2017-08-27] MEDS: ASCORBIC ACID 1000 MG PO SCH (09:25)
[2017-08-27] MEDS: amLODIPine BESYLATE 5 MG TABLET (FP) PO SCH (09:25)
[2017-08-27] MEDS: CALCIUM CARBONATE 650 MG TABLET PO SCH ×2 (09:25→21:53)
--- NOTE | 2017-08-27 09:25 | PN ---
Progress Note, Physician History of Present Illness: Feeling a little better today (gets less arthritis pain when she is on steroids) . Denies shortness of breath today. Has not had BM since colonoscopy prep. - Current Medication List Current Medications: Active Medications Albuterol Sulfate (Ventolin Hfa Inhaler -) 2 puff IH Q4H PRN PRN Reason: ASTHMA Allopurinol (Zyloprim -) 150 mg PO DAILY [facility] Last Admin: 08/26/17 10:05 Dose: 150 mg Alprazolam (Xanax -) 0.5 mg PO Q8H PRN PRN Reason: ANXIETY Last Admin: 08/27/17 01:24 Dose: 0.5 mg Amlodipine Besylate (Norvasc -) 5 mg PO DAILY [facility] Last Admin: 08/26/17 10:00 Dose: 5 mg Ascorbic Acid (Vitamin C -) 1,000 mg PO DAILY [facility] Last Admin: 08/26/17 10:00 Dose: 1,000 mg Calcium Carbonate (Calcium Carbonate -) 650 mg PO BID [facility] Last Admin: 08/26/17 21:05 Dose: 650 mg Dexamethasone Sodium Phosphate (Decadron Injection -) 40 mg IVPB DAILY [facility] Glipizide (Glucotrol Xl -) 10 mg PO BIDAC [facility] Last Admin: 08/27/17 06:29 Dose: 10 mg Insulin Aspart (Novolog Vial Sliding Scale -) 1 vial SQ ACHS [facility] PRN Reason: Protocol Last Admin: 08/27/17 06:29 Dose: 4 units Methylnaltrexone [place] (Relistor -) 8 mg SQ DAILY [facility] Last Admin: 08/26/17 11:00 Dose: 8 mg Morphine Sulfate (Ms Contin -) 60 mg PO TID [facility] Last Admin: 08/27/17 05:33 Dose: 60 mg Morphine Sulfate (Msir -) 15 mg PO Q6H PRN PRN Reason: PAIN LEVEL 4 - 6 Last Admin: 08/27/17 00:09 Dose: 15 mg Non-Formulary Medication (Ascorbic Acid [Vitamin C]) 1,000 mg PO DAILY [facility] Last Admin: 08/26/17 10:04 Dose: 1,000 mg Ondansetron HCl (Zofran Injection) 8 mg IVPB Q8H PRN PRN Reason: NAUSEA Pantoprazole Sodium (Protonix -) 40 mg PO DAILY [facility] Last Admin: 08/26/17 10:01 Dose: 40 mg Senna (Senna -) 1 tab PO BID [facility] Last Admin: 08/26/17 21:06 Dose: 1 tab Sertraline HCl (Zoloft -) 25 mg PO DAILY [facility] Last Admin: 08/26/17 10:00 Dose: 25 mg Sitagliptin Phosphate (Januvia -) 50 mg PO ACBK [facility] Last Admin: 08/27/17 06:29 Dose: 50 mg - Objective Vital Signs: Vital Signs Temperature 98 F 08/27/17 05:41 Pulse Rate 58 L 08/27/17 05:41 Respiratory Rate 20 08/27/17 05:41 Blood Pressure 150/71 08/27/17 05:41 O2 Sat by Pulse Oximetry (%) 97 08/26/17 21:00 Constitutional: Yes: No Distress, Calm Neck: Yes: Supple, Trachea Midline Cardiovascular: Yes: Regular Rate and Rhythm, S1, S2. No: Murmur Respiratory: Yes: Regular, Diminished (at bases) Gastrointestinal: Yes: Normal Bowel Sounds, Soft, Abdomen, Obese. No: Distention, Tenderness Edema: No Neurological: Yes: Alert, Oriented Labs: CBC, BMP 08/27/17 06:00 INR, PTT INR 1.03 (0.82-1.09) 08/24/17 06:00 Assessment/Plan Current Active Problems ITP Mantle Cell Lymphoma GI bleed Intestinal angiodysplasia Anemia due to GI bleed Diaphragmatic Hernia Diabetes Melitus Severe Osteoarthritis of right hip Depression Calculus of kidney (Acute) Hypoxia (Acute) SOB (shortness of breath) (Acute) Weakness (Acute) -cont steroids, follow platelets (if platelets cont to drop then may need to consider Rituxin while here)
[2017-08-27] MEDS: ASCORBIC ACID 500 MG TABLET (FP) PO SCH (09:26)
[2017-08-27] MEDS: ALLOPURINOL 100 MG TABLET (FP) PO SCH (09:27)
--- NOTE | 2017-08-27 10:26 | PN ---
Progress Note, Physician Chief Complaint: Events noted Not in distress Denies chest pain or palpitations History of Present Illness: Patient was seen and examined. Awake and alert. Chart was reviewed Denies chest pain, SOB or palpitations Labs pending - Current Medication List Current Medications: Active Medications Albuterol Sulfate (Ventolin Hfa Inhaler -) 2 puff IH Q4H PRN PRN Reason: ASTHMA Allopurinol (Zyloprim -) 150 mg PO DAILY [facility] Last Admin: 08/27/17 09:27 Dose: 150 mg Alprazolam (Xanax -) 0.5 mg PO Q8H PRN PRN Reason: ANXIETY Last Admin: 08/27/17 01:24 Dose: 0.5 mg Amlodipine Besylate (Norvasc -) 5 mg PO DAILY [facility] Last Admin: 08/27/17 09:25 Dose: 5 mg Ascorbic Acid (Vitamin C -) 1,000 mg PO DAILY [facility] Last Admin: 08/27/17 09:26 Dose: Not Given Calcium Carbonate (Calcium Carbonate -) 650 mg PO BID [facility] Last Admin: 08/27/17 09:25 Dose: 650 mg Dexamethasone Sodium Phosphate (Decadron Injection -) 40 mg IVPB DAILY [facility] Last Admin: 08/27/17 09:25 Dose: 40 mg Glipizide (Glucotrol Xl -) 10 mg PO BIDAC [facility] Last Admin: 08/27/17 06:29 Dose: 10 mg Insulin Aspart (Novolog Vial Sliding Scale -) 1 vial SQ ACHS [facility] PRN Reason: Protocol Last Admin: 08/27/17 06:29 Dose: 4 units Methylnaltrexone [place] (Relistor -) 8 mg SQ DAILY [facility] Last Admin: 08/26/17 11:00 Dose: 8 mg Morphine Sulfate (Ms Contin -) 60 mg PO TID [facility] Last Admin: 08/27/17 05:33 Dose: 60 mg Morphine Sulfate (Msir -) 15 mg PO Q6H PRN PRN Reason: PAIN LEVEL 4 - 6 Last Admin: 08/27/17 00:09 Dose: 15 mg Non-Formulary Medication (Ascorbic Acid [Vitamin C]) 1,000 mg PO DAILY [facility] Last Admin: 08/27/17 09:25 Dose: 1,000 mg Ondansetron HCl (Zofran Injection) 8 mg IVPB Q8H PRN PRN Reason: NAUSEA Pantoprazole Sodium (Protonix -) 40 mg PO DAILY [facility] Last Admin: 08/27/17 09:25 Dose: 40 mg Senna (Senna -) 1 tab PO BID [facility] Last Admin: 08/27/17 09:25 Dose: 1 tab Sertraline HCl (Zoloft -) 25 mg PO DAILY [facility] Last Admin: 08/27/17 09:25 Dose: 25 mg Sitagliptin Phosphate (Januvia -) 50 mg PO ACBK [facility] Last Admin: 08/27/17 06:29 Dose: 50 mg - Objective Vital Signs: Vital Signs Temperature 98 F 08/27/17 05:41 Pulse Rate 58 L 08/27/17 05:41 Respiratory Rate 20 08/27/17 05:41 Blood Pressure 150/71 08/27/17 05:41 O2 Sat by Pulse Oximetry (%) 97 08/26/17 21:00 HENT: Yes: Atraumatic Neck: Yes: Supple Cardiovascular: Yes: Regular Rate and Rhythm, S1, S2 Respiratory: Yes: Diminished Gastrointestinal: Yes: Normal Bowel Sounds, Soft, Abdomen, Obese. No: Tenderness Edema: No Labs: CBC, BMP 08/27/17 06:00 Problem List - Problems (1) SOB (shortness of breath) Code(s): R06.02 - SHORTNESS OF BREATH (2) Thrombocytopenia Code(s): D69.6 - THROMBOCYTOPENIA, UNSPECIFIED (3) Weakness Code(s): R53.1 - WEAKNESS (4) Acute ITP Code(s): D69.3 - IMMUNE THROMBOCYTOPENIC PURPURA (5) Anemia Code(s): D64.9 - ANEMIA, UNSPECIFIED Qualifiers: Anemia type: iron deficiency Iron deficiency anemia type: chronic blood loss Qualified Code(s): D50.0 - Iron deficiency anemia secondary to blood loss (chronic) (6) CKD stage 3 secondary to diabetes Code(s): E11.22 - TYPE 2 DIABETES MELLITUS W DIABETIC CHRONIC KIDNEY DISEASE; N18.3 - CHRONIC KIDNEY DISEASE, STAGE 3 (MODERATE) (7) HTN (hypertension) Code(s): I10 - ESSENTIAL (PRIMARY) HYPERTENSION Qualifiers: Hypertension type: essential hypertension Qualified Code(s): I10 - Essential (primary) hypertension (8) Hyperkalemia Code(s): E87.5 - HYPERKALEMIA (9) ITP (idiopathic thrombocytopenic purpura) Code(s): D69.3 - IMMUNE THROMBOCYTOPENIC PURPURA (10) Mantle cell lymphoma Code(s): C83.10 - MANTLE CELL LYMPHOMA, UNSPECIFIED SITE (11) Staghorn kidney stones Code(s): N20.0 - CALCULUS OF KIDNEY (12) T2DM (type 2 diabetes mellitus) Code(s): E11.9 - TYPE 2 DIABETES MELLITUS WITHOUT COMPLICATIONS Qualifiers: Diabetes mellitus long term care phlebotomist insulin use: without long term care phlebotomist use Diabetes mellitus complication status: without complication Qualified Code(s): E11.9 - Type 2 diabetes mellitus without complications Assessment/Plan 1. Recurrent ITP h/o splenectomy and antiphospholipids 2. Recurrent dyspnea on exertion after failure of left diaphragmatic hernia repair/mesh 3. HTN 4. NIDDM 5. History of Mantle Cell Lymphoma 6. Acute on CKD 3, staghorn calculi and hydronephrosis 7. Chronic interstitial lung disease PLAN: 1. Resume Lisinopril once renal function stabilizes. Continue Norvasc 2. DVT and GI prophylaxis 3. Steroids and IVIG course with monitoring CBC 4. Consideration for re-op diaphragmatic hernia repair after recovery of platelet counts 5. O2 and bronchodilators as needed 6. Monitor I/Os and renal function 7. Await platelet level Further plans are to follow Abdon Salinas MD
--- NOTE | 2017-08-27 10:45 | PN ---
Progress Note (short form) - Note Progress Note: PULMONARY OFFERS NO COMPLAINTS VSS/AFEBRILE ANICTERIC DISTANT B/L BREATH SOUNDS S1S2 BS+ NO EDEMA LABS/MEDS/NOTES/IMAGES REVIEWED SPO2 87% ON AMBULATION ROOM AIR Recurrent ITP Left Diaphragmatic Hernia Acute on Chronic Renal Failure Interstitial Lung Disease HTN DM h/o Lymphoma - monitor urine output, creatinine - on Dexamethasone - O2 to keep SpO2 >90% - inhaled bronchodilators - monitor CBC/PLTS - DVT prophylaxis Jovanni LARRY MD Problem List - Problems (1) Abdominal pain Code(s): R10.9 - UNSPECIFIED ABDOMINAL PAIN (2) Acute ITP Code(s): D69.3 - IMMUNE THROMBOCYTOPENIC PURPURA (3) Anemia Code(s): D64.9 - ANEMIA, UNSPECIFIED Qualifiers: Anemia type: iron deficiency Iron deficiency anemia type: chronic blood loss Qualified Code(s): D50.0 - Iron deficiency anemia secondary to blood loss (chronic) (4) CKD stage 3 secondary to diabetes Code(s): E11.22 - TYPE 2 DIABETES MELLITUS W DIABETIC CHRONIC KIDNEY DISEASE; N18.3 - CHRONIC KIDNEY DISEASE, STAGE 3 (MODERATE) (5) DVT prophylaxis Code(s): [id number] - (6) Diabetes mellitus Code(s): E11.9 - TYPE 2 DIABETES MELLITUS WITHOUT COMPLICATIONS Qualifiers: Diabetes mellitus type: type 2 (7) Diaphragmatic hernia Code(s): K44.9 - DIAPHRAGMATIC HERNIA WITHOUT OBSTRUCTION OR GANGRENE Qualifiers: Obstruction and gangrene presence: without obstruction or gangrene Qualified Code(s): K44.9 - Diaphragmatic hernia without obstruction or gangrene (8) HTN (hypertension) Code(s): I10 - ESSENTIAL (PRIMARY) HYPERTENSION Qualifiers: Hypertension type: essential hypertension Qualified Code(s): I10 - Essential (primary) hypertension (9) Mantle cell lymphoma Code(s): C83.10 - MANTLE CELL LYMPHOMA, UNSPECIFIED SITE (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
--- NOTE | 2017-08-27 11:59 | PN ---
GI Progress Note Subjective: GI NOte: No bleeding in fact no BM. Platelets still pending,. Hb stable - Objective Vital Signs: Vital Signs Temperature 98 F 08/27/17 05:41 Pulse Rate 58 L 08/27/17 05:41 Respiratory Rate 20 08/27/17 05:41 Blood Pressure 150/71 08/27/17 05:41 O2 Sat by Pulse Oximetry (%) 97 08/26/17 21:00 ...Auscultate: Yes: Normoactive Bowel Sounds ...Palpate: Yes: Soft, Other (nontender) Labs: CBC, BMP 08/27/17 06:00 INR, PTT INR 1.03 (0.82-1.09) 08/24/17 06:00 Assessment/Plan Stable day 2 after colonoscopy with polypectomy Started on steroids to raise her platelet count. May need platelet transfusion if they falls further Stop Relistor Continue miralax Problem List - Problems (1) Anemia Assessment/Plan: Anemia due to vascualr ectasias. Polypectomy done 08/25. No overt bleeding Code(s): D64.9 - ANEMIA, UNSPECIFIED Qualifiers: Anemia type: iron deficiency Iron deficiency anemia type: chronic blood loss Qualified Code(s): D50.0 - Iron deficiency anemia secondary to blood loss (chronic) (2) Hypoxia Code(s): R09.02 - HYPOXEMIA (3) Weakness Code(s): R53.1 - WEAKNESS (4) Thrombocytopenia Code(s): D69.6 - THROMBOCYTOPENIA, UNSPECIFIED (5) SOB (shortness of breath) Code(s): R06.02 - SHORTNESS OF BREATH (6) Occult blood in stools Code(s): R19.5 - OTHER FECAL ABNORMALITIES
[2017-08-27 12:00] LABS: ANISOCYTOSIS 3+; MACROCYTOSIS 2+; PLATELET ESTIMATE DECREASED
[2017-08-27] MEDS: Methylnaltrexone Bromide 12 MG/0.6 ML KIT SQ SCH (12:06)
[2017-08-27 12:33] LABS: PLATELET COUNT 26 K/MM3 (134-434)
--- NOTE | 2017-08-27 12:47 | PN ---
Progress Note (short form) - Note Progress Note: Patient seen and examined chart reviewed She says , shes been much better today than any other days, walked around, breathing is better O/E General : NAD HEENT: NCAT Cor: RRR Lungs: clear anteriorly Abd: soft NT LE: + edema Last Vital Signs Temp Pulse Resp BP Pulse Ox 98.1 F 75 20 135/52 97 08/27/17 11:00 08/27/17 11:00 08/27/17 11:00 08/27/17 11:00 08/27/17 09:00 CBC, BMP 08/27/17 06:00 Current Medications Generic Name Dose Route Start Last Admin Trade Name Freq PRN Reason Stop Dose Admin Albuterol Sulfate 2 puff 08/17/17 15:49 Ventolin Hfa Inhaler - IH Q4H PRN ASTHMA Allopurinol 150 mg 08/18/17 10:00 08/27/17 09:27 Zyloprim - PO 150 mg DAILY PRASHANT Administration Alprazolam 0.5 mg 08/22/17 12:54 08/27/17 11:13 Xanax - PO 0.5 mg Q8H PRN Administration ANXIETY Amlodipine Besylate 5 mg 08/18/17 10:00 08/27/17 09:25 Norvasc - PO 5 mg DAILY PRASHANT Administration Ascorbic Acid 1,000 mg 08/18/17 10:00 08/27/17 09:26 Vitamin C - PO Not Given DAILY PRASHANT Calcium Carbonate 650 mg 08/17/17 22:00 08/27/17 09:25 Calcium Carbonate - PO 650 mg BID PRASHANT Administration Dexamethasone Sodium Phosphate 40 mg 08/26/17 10:12 08/27/17 09:25 Decadron Injection - IVPB 40 mg DAILY PRASHANT Administration Glipizide 10 mg 08/17/17 16:30 08/27/17 06:29 Glucotrol Xl - PO 10 mg BIDAC PRASHANT Administration Insulin Aspart 1 vial 08/18/17 22:00 08/27/17 11:57 Novolog Vial Sliding Scale - SQ 4 units ACHS PRASHANT Administration Protocol Morphine Sulfate 60 mg 08/17/17 14:00 08/27/17 05:33 Ms Contin - PO 60 mg TID PRASHANT Administration Morphine Sulfate 15 mg 08/20/17 19:48 08/27/17 00:09 Msir - PO 15 mg Q6H PRN Administration PAIN LEVEL 4 - 6 Non-Formulary Medication 1,000 mg 08/18/17 10:00 08/27/17 09:25 Ascorbic Acid [Vitamin C] PO 1,000 mg DAILY PRASHANT Administration Ondansetron HCl 8 mg 08/23/17 08:14 Zofran Injection IVPB Q8H PRN NAUSEA Pantoprazole Sodium 40 mg 08/18/17 10:00 08/27/17 09:25 Protonix - PO 40 mg DAILY PRASHANT Administration Polyethylene Glycol 17 gm 08/27/17 22:00 Miralax (For Daily Use) - PO BID PRASHANT Senna 1 tab 08/21/17 12:00 08/27/17 09:25 Senna - PO 1 tab BID PRASHANT Administration Sertraline HCl 25 mg 08/18/17 10:00 08/27/17 09:25 Zoloft - PO 25 mg DAILY PRASHANT Administration Sitagliptin Phosphate 50 mg 08/18/17 07:00 08/27/17 06:29 Januvia - PO 50 mg ACBK PRASHANT Administration ITP s/p 4 days of Gamma globulin ARLETTE - secondary to Gamma globulin - improving Mantle cell lymphoma Fe++ deficiency ,S/p upper and lower endoscopy Right sided angiodysplasia DM HBP Back pain platelets 26K! today ( non-sustained response to IVIg/ refractory ?underlying lymphoma ) LDH/Uric acid pending. /Will send peripheral blood flow One unit SDU platelets now---repeat One hr post-transfusion CBC Steroids, Dex 40mg IV daily , to be continued To consider rituxan ?this admission. will maintain Platelets >50K d/w RN
[2017-08-27 15:02] LABS: BLOOD UREA NITROGEN 23 mg/dL (7-18); CREATININE 1.3 mg/dL (0.55-1.02); GLUCOSE,RANDOM 263 mg/dL (74-106); SODIUM 138 mmol/L (136-145)
[2017-08-27 15:03] LABS: ALBUMIN 3.5 g/dl (3.4-5.0); ANION GAP 12 (8-16); CALCIUM 9.4 mg/dL (8.5-10.1); CHLORIDE 100 mmol/L (98-107); CO2 26 mmol/L (21-32); POTASSIUM 4.2 mmol/L (3.5-5.1); TOT PROT 7.6 g/dl (6.4-8.2); URIC ACID 4.5 mg/dL (2.6-7.2)
[2017-08-27 15:04] LABS: ALK PHOS 55 U/L (45-117); BILIRUBIN,TOTAL 0.5 mg/dL (0.2-1.0); LDH 477 U/L (84-246); SGOT/AST 16 U/L (15-37); SGPT/ALT 13 U/L (12-78)
[2017-08-27 17:43] LABS: BASO % 0.1 % (0-2.0); HEMATOCRIT 30.1 % (32.4-45.2); HEMOGLOBIN 9.4 GM/dL (10.7-15.3); LYMPH % 4.9 % (8-40); MCH 24.3 pg (25.7-33.7); MCHC 31.2 g/dl (32.0-36.0); MEAN CELL VOLUME 77.8 fl (80-96); MEAN PLT VOLUME 8.5 fl (7.5-11.1); MONO % 1.1 % (3.8-10.2); NEUT % 93.9 % (42.8-82.8); RBC 3.86 M/mm3 (3.60-5.2); RDW 25.4 % (11.6-15.6); WHITE BLOOD COUNT 9.3 K/mm3 (4.0-10.0)
[2017-08-27 17:46] LABS: PLATELET COUNT 17 K/MM3 (134-434)
[2017-08-27 19:42] LABS: HEMATOCRIT 31.5 % (32.4-45.2); HEMOGLOBIN 9.6 GM/dL (10.7-15.3); MCH 24.1 pg (25.7-33.7); MCHC 30.6 g/dl (32.0-36.0); MEAN PLT VOLUME 11.1 fl (7.5-11.1); PLATELET COUNT 39 K/MM3 (134-434); RBC 3.99 M/mm3 (3.60-5.2); RDW 26.8 % (11.6-15.6); WHITE BLOOD COUNT 9.4 K/mm3 (4.0-10.0)
[2017-08-27] MEDS: POLYETHYLENE GLYCOL 3350 119 GM BTL PO SCH (21:51)
[2017-08-28] MEDS: morphine SULFATE IMMEDIATE RELEASE 30 MG TAB PO PRN (03:48)
[2017-08-28] MEDS: morphine SO4 SUSTAINED ACTING 30 MG TABLET.SA PO SCH ×3 (06:00→23:11)
[2017-08-28] MEDS: sitaGLIPtin PHOSPHATE 50 MG TABLET PO SCH (06:41)
[2017-08-28] MEDS: INSULIN SLIDING SCALE (NOVOLOG) 1 VIAL SQ SCH ×4 (06:42→23:12)
[2017-08-28] MEDS: glipiZIDE-XL 10 MG TAB.ER.24 (FP) PO SCH ×2 (06:42→17:34)
[2017-08-28 07:54] LABS: HEMATOCRIT 31.2 % (32.4-45.2); HEMOGLOBIN 9.5 GM/dL (10.7-15.3); MCH 24.2 pg (25.7-33.7); MCHC 30.5 g/dl (32.0-36.0); MEAN CELL VOLUME 79.4 fl (80-96); MEAN PLT VOLUME 10.8 fl (7.5-11.1); RBC 3.93 M/mm3 (3.60-5.2); WHITE BLOOD COUNT 7.9 K/mm3 (4.0-10.0)
[2017-08-28 08:36] LABS: ANION GAP 7 (8-16); BLOOD UREA NITROGEN 28 mg/dL (7-18); CALCIUM 8.4 mg/dL (8.5-10.1); CHLORIDE 100 mmol/L (98-107); CO2 27 mmol/L (21-32); CREATININE 1.3 mg/dL (0.55-1.02); GLUCOSE,RANDOM 249 mg/dL (74-106); POTASSIUM 3.6 mmol/L (3.5-5.1); SGOT/AST 16 U/L (15-37); SGPT/ALT 17 U/L (12-78); SODIUM 134 mmol/L (136-145)
[2017-08-28 08:38] LABS: ALK PHOS 48 U/L (45-117); BILIRUBIN,TOTAL 0.2 mg/dL (0.2-1.0); TOT PROT 7.8 g/dl (6.4-8.2)
[2017-08-28 08:50] LABS: PLATELET COUNT 17 K/MM3 (134-434)
[2017-08-28] MEDS: SENNOSIDES 8.6MG TABLET (FP) PO SCH ×2 (10:18→23:11)
[2017-08-28] MEDS: SERTRALINE HCL 25 MG TABLET (FP) PO SCH (10:18)
[2017-08-28] MEDS: amLODIPine BESYLATE 5 MG TABLET (FP) PO SCH (10:18)
[2017-08-28] MEDS: ALPRAZolam 0.25 MG TABLET PO PRN ×2 (10:18→23:16)
[2017-08-28] MEDS: ALLOPURINOL 100 MG TABLET (FP) PO SCH (10:20)
[2017-08-28] MEDS: PANTOPRAZOLE 40 MG TABLET (FP) PO SCH (10:20)
[2017-08-28] MEDS: DEXAMETHASONE SOD PHOSPHATE 10 MG/1 ML VIAL IVPB SCH (10:21)
[2017-08-28] MEDS: ASCORBIC ACID 1000 MG PO SCH (10:21)
[2017-08-28] MEDS: CALCIUM CARBONATE 650 MG TABLET PO SCH ×2 (10:21→23:10)
[2017-08-28] MEDS: ASCORBIC ACID 500 MG TABLET (FP) PO SCH (10:21)
[2017-08-28] MEDS: POLYETHYLENE GLYCOL 3350 119 GM BTL PO SCH ×2 (10:22→23:13)
--- NOTE | 2017-08-28 11:00 | PN ---
GI Progress Note Subjective: GI NOte: Platelets down to 17K but Hb fortunately stable. NO BM since the colonoscopy. Receiving Miralax. - Objective Vital Signs: Vital Signs Temperature 97.6 F 08/28/17 05:24 Pulse Rate 55 L 08/28/17 05:24 Respiratory Rate 20 08/28/17 05:24 Blood Pressure 148/71 08/28/17 05:24 O2 Sat by Pulse Oximetry (%) 97 08/27/17 21:00 Laboratory Tests 08/28/17 06:50 Hgb 9.5 L Plt Count 17 L* D Constitutional: No Distress ...Auscultate: Yes: Normoactive Bowel Sounds ...Palpate: Yes: Soft, Other (nontender) Labs: CBC, BMP 08/28/17 06:50 08/28/17 06:50 INR, PTT INR 1.03 (0.82-1.09) 08/24/17 06:00 Problem List - Problems (1) Colon polyp Assessment/Plan: No signs of bleeding from the polyp site which was endoclipped. Will continue Miralax. Anticipate platelet transfusions. Will discuss with Dr Ruiz. Code(s): K63.5 - POLYP OF COLON (2) Anemia Code(s): D64.9 - ANEMIA, UNSPECIFIED Qualifiers: Anemia type: iron deficiency Iron deficiency anemia type: chronic blood loss Qualified Code(s): D50.0 - Iron deficiency anemia secondary to blood loss (chronic) (3) Hypoxia Code(s): R09.02 - HYPOXEMIA (4) Weakness Code(s): R53.1 - WEAKNESS (5) Thrombocytopenia Code(s): D69.6 - THROMBOCYTOPENIA, UNSPECIFIED (6) SOB (shortness of breath) Code(s): R06.02 - SHORTNESS OF BREATH (7) Occult blood in stools Code(s): R19.5 - OTHER FECAL ABNORMALITIES
[2017-08-28 11:36] LABS: ANISOCYTOSIS 2+; PLATELET ESTIMATE DECREASED; TARGET CELLS 2+
--- NOTE | 2017-08-28 11:37 | PN ---
Progress Note (short form) - Note Progress Note: Renal Follow up for ARLETTE on CKD Pt seen and examined at the bedside no acute complaints no sob, chest pain edema improving making urine Vital Signs Temperature 97.6 F 08/28/17 05:24 Pulse Rate 55 L 08/28/17 05:24 Respiratory Rate 20 08/28/17 05:24 Blood Pressure 148/71 08/28/17 05:24 O2 Sat by Pulse Oximetry (%) 97 08/27/17 21:00 Intake & Output 08/25/17 08/26/17 08/27/17 08/28/17 23:59 23:59 23:59 23:59 Intake Total 7177 074 8897 100 Balance 2504 747 9242 100 Weight 108.409 kg NAD on NC O2 RRR, no M/R CTA in anterior exam Abd obese, midl tenderness LUQ Trace edema in LE CBC, BMP 08/28/17 06:50 08/28/17 06:50 Current Medications Albuterol Sulfate (Ventolin Hfa Inhaler -) 2 puff IH Q4H PRN PRN Reason: ASTHMA Allopurinol (Zyloprim -) 150 mg PO DAILY [facility] Last Admin: 08/28/17 10:20 Dose: 150 mg Alprazolam (Xanax -) 0.5 mg PO Q8H PRN PRN Reason: ANXIETY Last Admin: 08/28/17 10:18 Dose: 0.5 mg Amlodipine Besylate (Norvasc -) 5 mg PO DAILY [facility] Last Admin: 08/28/17 10:18 Dose: 5 mg Ascorbic Acid (Vitamin C -) 1,000 mg PO DAILY [facility] Last Admin: 08/28/17 10:21 Dose: 1,000 mg Calcium Carbonate (Calcium Carbonate -) 650 mg PO BID [facility] Last Admin: 08/28/17 10:21 Dose: 650 mg Dexamethasone Sodium Phosphate (Decadron Injection -) 40 mg IVPB DAILY [facility] Last Admin: 08/28/17 10:21 Dose: 40 mg Glipizide (Glucotrol Xl -) 10 mg PO BIDAC [facility] Last Admin: 08/28/17 06:42 Dose: 10 mg Insulin Aspart (Novolog Vial Sliding Scale -) 1 vial SQ ACHS [facility] PRN Reason: Protocol Last Admin: 08/28/17 06:42 Dose: 4 units Morphine Sulfate (Ms Contin -) 60 mg PO TID [facility] Last Admin: 08/28/17 06:00 Dose: 60 mg Morphine Sulfate (Msir -) 15 mg PO Q6H PRN PRN Reason: PAIN LEVEL 4 - 6 Last Admin: 08/28/17 03:48 Dose: 15 mg Non-Formulary Medication (Ascorbic Acid [Vitamin C]) 1,000 mg PO DAILY [facility] Last Admin: 08/28/17 10:21 Dose: 1,000 mg Ondansetron HCl (Zofran Injection) 8 mg IVPB Q8H PRN PRN Reason: NAUSEA Pantoprazole Sodium (Protonix -) 40 mg PO DAILY [facility] Last Admin: 08/28/17 10:20 Dose: 40 mg Polyethylene Glycol (Miralax (For Daily Use) -) 17 gm PO BID [facility] Last Admin: 08/28/17 10:22 Dose: 17 grams Senna (Senna -) 1 tab PO BID [facility] Last Admin: 08/28/17 10:18 Dose: 1 tab Sertraline HCl (Zoloft -) 25 mg PO DAILY [facility] Last Admin: 08/28/17 10:18 Dose: 25 mg Sitagliptin Phosphate (Januvia -) 50 mg PO ACBK [facility] Last Admin: 08/28/17 06:41 Dose: 50 mg A/p 66 year old woman with PMhx of CKD stage 3, hx of staghorn calculi with mild hydronephrosis, ITP, Mantle Cell lymphoma, UTI's, NIDDM, Hypertension who presented with weakness, lethargy and to have recurrent worsening thrombocytopneia and developed ARLETTE during the hospitalization with Cr of 1.6. #ARLETTE on CKD likely due to IVIG #ITP #Anemia #Hyponatremia Renal function imporved and stable volume status is ok, no need for diuretics at this time oral intake as tolerated on IV steroids for ITP Hgb stable s/p colonoscopy with polypectomy serum Na stable, no indication for 3% saline Thank you Dash Padron DO
--- NOTE | 2017-08-28 11:40 | PN ---
<Kurt Calzada - Last Filed: 08/28/17 11:41> Physical Exam: SERVICE: Hematology and Oncology SUBJECTIVE: No acute event reported by patient or her nurse. Patient states she' s aware of today's plt count but she feels fine. No bowel movement since colonoscopy. Denies fever, chills, chest pain, sob, abd pain, urinary sx. OBJECTIVE: Vital Signs Period Temp Pulse Resp BP Sys/[place] Pulse Ox Last 24 Hr 97.2 F-98.1 F 55-67 20-20 136-414/53-73 97 GENERAL: AAO x 3, no in cardiopulmonary distress HEAD: AT, NC EYES: PERRA, sclera anicteric, conjunctiva pale ENT: oropharynx clear without exudates, moist mucous membranes. NECK: No bruits or lymphedopathy LUNGS: CTAB HEART: RRR, S1, S2 without murmur, rub or gallop. ABDOMEN: Soft, nontender, nondistended, normoactive bowel sounds, no guarding, no rebound, no hepatosplenomegaly, no masses. EXTREMITIES: 1+ pulses, warm, +1 b/l edema. CBCD WBC 7.9 K/mm3 (4.0-10.0) 08/28/17 06:50 RBC 3.93 M/mm3 (3.60-5.2) 08/28/17 06:50 Hgb 9.5 GM/dL (10.7-15.3) L 08/28/17 06:50 Hct 31.2 % (32.4-45.2) L 08/28/17 06:50 MCV 79.4 fl (80-96) L 08/28/17 06:50 MCHC 30.5 g/dl (32.0-36.0) L 08/28/17 06:50 RDW 28.0 % (11.6-15.6) H 08/28/17 06:50 Plt Count 17 K/MM3 (134-434) L* D 08/28/17 06:50 MPV 10.8 fl (7.5-11.1) 08/28/17 06:50 CMP Sodium 134 mmol/L (136-145) L 08/28/17 06:50 Potassium 3.6 mmol/L (3.5-5.1) 03/26/18 06:50 Chloride 100 mmol/L (98-107) 08/28/17 06:50 Carbon Dioxide 27 mmol/L (21-32) 08/28/17 06:50 Anion Gap 7 (8-16) L 08/28/17 06:50 BUN 28 mg/dL (7-18) H 08/28/17 06:50 Creatinine 1.3 mg/dL (0.55-1.02) H 08/28/17 06:50 Creat Clearance w eGFR 40.98 (>60) 08/28/17 06:50 Calcium 8.4 mg/dL (8.5-10.1) L 08/28/17 06:50 Total Bilirubin 0.2 mg/dL (0.2-1.0) D 08/28/17 06:50 AST 16 U/L (15-37) 08/28/17 06:50 ALT 17 U/L (12-78) 08/28/17 06:50 Alkaline Phosphatase 48 U/L (45-117) 08/28/17 06:50 Total Protein 7.8 g/dl (6.4-8.2) 08/28/17 06:50 Albumin 3.0 g/dl (3.4-5.0) L 08/28/17 06:50 Active Medications Generic Name Dose Route Start Last Admin Trade Name Freq PRN Reason Stop Dose Admin Albuterol Sulfate 2 puff 08/17/17 15:49 Ventolin Hfa Inhaler - IH Q4H PRN ASTHMA Allopurinol 150 mg 08/18/17 10:00 08/28/17 10:20 Zyloprim - PO 150 mg DAILY PRASHANT Administration Alprazolam 0.5 mg 08/22/17 12:54 08/28/17 10:18 Xanax - PO 0.5 mg Q8H PRN Administration ANXIETY Amlodipine Besylate 5 mg 08/18/17 10:00 08/28/17 10:18 Norvasc - PO 5 mg DAILY PRASHANT Administration Ascorbic Acid 1,000 mg 08/18/17 10:00 08/28/17 10:21 Vitamin C - PO 1,000 mg DAILY PRASHANT Administration Calcium Carbonate 650 mg 08/17/17 22:00 08/28/17 10:21 Calcium Carbonate - PO 650 mg BID PRASHANT Administration Dexamethasone Sodium Phosphate 40 mg 08/26/17 10:12 08/28/17 10:21 Decadron Injection - IVPB 40 mg DAILY PRASHANT Administration Glipizide 10 mg 08/17/17 16:30 08/28/17 06:42 Glucotrol Xl - PO 10 mg BIDAC PRASHANT Administration Insulin Aspart 1 vial 08/18/17 22:00 08/28/17 06:42 Novolog Vial Sliding Scale - SQ 4 units ACHS PRASHANT Administration Protocol Morphine Sulfate 60 mg 08/17/17 14:00 08/28/17 06:00 Ms Contin - PO 60 mg TID PRASHANT Administration Morphine Sulfate 15 mg 08/20/17 19:48 08/28/17 03:48 Msir - PO 15 mg Q6H PRN Administration PAIN LEVEL 4 - 6 Non-Formulary Medication 1,000 mg 08/18/17 10:00 08/28/17 10:21 Ascorbic Acid [Vitamin C] PO 1,000 mg DAILY PRASHANT Administration Ondansetron HCl 8 mg 08/23/17 08:14 Zofran Injection IVPB Q8H PRN NAUSEA Pantoprazole Sodium 40 mg 08/18/17 10:00 08/28/17 10:20 Protonix - PO 40 mg DAILY PRASHANT Administration Polyethylene Glycol 17 gm 08/27/17 22:00 08/28/17 10:22 Miralax (For Daily Use) - PO 17 grams BID PRASHANT Administration Senna 1 tab 08/21/17 12:00 08/28/17 10:18 Senna - PO 1 tab BID PRASHANT Administration Sertraline HCl 25 mg 08/18/17 10:00 08/28/17 10:18 Zoloft - PO 25 mg DAILY PRASHANT Administration Sitagliptin Phosphate 50 mg 08/18/17 07:00 08/28/17 06:41 Januvia - PO 50 mg ACBK PRASHANT Administration ASSESSMENT 66 yo F w/ h/o mantle cell lymphoma, NIDDM, diverticulitis, anxiety, bladder dysfunction, HTN, and ITP admitted to the hospital for exertional dyspnea and exacerbation of ITP. PLAN Refractory ITP s/p IVIG, plt transfusion and currently on decadron: plt count cont. to fluctuate, will give rituxin Anemia: stable; HGB to maintain > 9 Kurt [facility] PGY2 Pager: [phone] Visit type - Emergency Visit Emergency Visit: No - New Patient This patient is new to me today: Yes Date on this admission: 08/28/17 - Critical Care Critical Care patient: No - Discharge Referral Referred to [facility] No <Reyna Pham - Last Filed: 09/03/17 16:28> Physical Exam: SUBJECTIVE: Patient seen and examined OBJECTIVE: Vital Signs Period Temp Pulse Resp BP Sys/[place] Pulse Ox Last 24 Hr 97.2 F-98 F 55-69 20-20 136-154/50-73 97-97 GENERAL: The patient is awake, alert, and fully oriented, in no acute distress. HEAD: Normal with no signs of trauma. EYES: PERRL, extraocular movements intact, sclera anicteric, conjunctiva clear. No ptosis. ENT: Ears normal, nares patent, oropharynx clear without exudates, moist mucous membranes. NECK: Trachea midline, full range of motion, supple. LUNGS: Breath sounds equal, clear to auscultation bilaterally, no wheezes, no crackles, no accessory muscle use. HEART: Regular rate and rhythm, S1, S2 without murmur, rub or gallop. ABDOMEN: Soft, nontender, nondistended, normoactive bowel sounds, no guarding, no rebound, no hepatosplenomegaly, no masses. EXTREMITIES: 2+ pulses, warm, well-perfused, no edema. NEUROLOGICAL: Cranial nerves II through XII grossly intact. Normal speech, gait not observed. PSYCH: Normal mood, normal affect. SKIN: Warm, dry, normal turgor, no rashes or lesions noted Laboratory Results - last 24 hr 08/27/17 08/27/17 08/27/17 16:45 17:20 18:50 WBC 9.3 D 9.4 RBC 3.86 3.99 Hgb 9.4 L 9.6 L Hct 30.1 L 31.5 L MCV 77.8 L 79.0 L MCH 24.3 L 24.1 L MCHC 31.2 L 30.6 L RDW 25.4 H 26.8 H Plt Count 17 L* D 39 L D MPV 8.5 D 11.1 D Neutrophils % 93.9 H D Neutrophils % (Manual) Band Neutrophils % Lymphocytes % 4.9 L D Lymphocytes % (Manual) Monocytes % 1.1 L D Monocytes % (Manual) Eosinophils % 0.0 D Eosinophils % (Manual) Basophils % 0.1 Basophils % (Manual) Myelocytes % (Man) Promyelocytes % (Man) Blast Cells % (Manual) Nucleated RBC % Metamyelocytes Hypochromia Platelet Estimate Polychromasia Anisocytosis Microcytosis Target Cells Sodium Potassium Chloride Carbon Dioxide Anion Gap BUN Creatinine Creat Clearance w eGFR POC Glucometer 316 Random Glucose Calcium Total Bilirubin AST ALT Alkaline Phosphatase Total Protein Albumin 08/27/17 08/28/17 08/28/17 21:47 05:59 06:50 WBC 7.9 RBC 3.93 Hgb 9.5 L Hct 31.2 L MCV 79.4 L MCH 24.2 L MCHC 30.5 L RDW 28.0 H Plt Count 17 L* D MPV 10.8 Neutrophils % No Result Required. Neutrophils % (Manual) 90.0 H Band Neutrophils % 0.0 Lymphocytes % No Result Required. Lymphocytes % (Manual) 8.0 D Monocytes % Monocytes % (Manual) 2 L D Eosinophils % Eosinophils % (Manual) 0.0 Basophils % Basophils % (Manual) 0.0 Myelocytes % (Man) 0 Promyelocytes % (Man) 0 Blast Cells % (Manual) 0 Nucleated RBC % 0 Metamyelocytes 0 Hypochromia 2+ Platelet Estimate Decreased Polychromasia 1+ Anisocytosis 2+ Microcytosis 2+ Target Cells 2+ Sodium Potassium Chloride Carbon Dioxide Anion Gap BUN Creatinine Creat Clearance w eGFR POC Glucometer 394 290 Random Glucose Calcium Total Bilirubin AST ALT Alkaline Phosphatase Total Protein Albumin 08/28/17 08/28/17 06:50 10:58 WBC RBC Hgb Hct MCV MCH MCHC RDW Plt Count MPV Neutrophils % Neutrophils % (Manual) Band Neutrophils % Lymphocytes % Lymphocytes % (Manual) Monocytes % Monocytes % (Manual) Eosinophils % Eosinophils % (Manual) Basophils % Basophils % (Manual) Myelocytes % (Man) Promyelocytes % (Man) Blast Cells % (Manual) Nucleated RBC % Metamyelocytes Hypochromia Platelet Estimate Polychromasia Anisocytosis Microcytosis Target Cells Sodium 134 L Potassium 3.6 Chloride 100 Carbon Dioxide 27 Anion Gap 7 L BUN 28 H Creatinine 1.3 H Creat Clearance w eGFR 40.98 POC Glucometer 289 Random Glucose 249 H Calcium 8.4 L Total Bilirubin 0.2 D AST 16 ALT 17 Alkaline Phosphatase 48 Total Protein 7.8 Albumin 3.0 L Active Medications Generic Name Dose Route Start Last Admin Trade Name Freq PRN Reason Stop Dose Admin Albuterol Sulfate 2 puff 08/17/17 15:49 Ventolin Hfa Inhaler - IH Q4H PRN ASTHMA Allopurinol 150 mg 08/18/17 10:00 08/28/17 10:20 Zyloprim - PO 150 mg DAILY PRASHANT Administration Alprazolam 0.5 mg 08/22/17 12:54 08/28/17 10:18 Xanax - PO 0.5 mg Q8H PRN Administration ANXIETY Amlodipine Besylate 5 mg 08/18/17 10:00 08/28/17 10:18 Norvasc - PO 5 mg DAILY PR[facility]ANT Administration Ascorbic Acid 1,000 mg 08/18/17 10:00 08/28/17 10:21 Vitamin C - PO 1,000 mg DAILY PRASHANT Administration Calcium Carbonate 650 mg 08/17/17 22:00 08/28/17 10:21 Calcium Carbonate - PO 650 mg BID PRASHANT Administration Dexamethasone Sodium Phosphate 40 mg 08/26/17 10:12 08/28/17 10:21 Decadron Injection - IVPB 40 mg DAILY PR[facility] Administration Glipizide 10 mg 08/17/17 16:30 08/28/17 06:42 Glucotrol Xl - PO 10 mg BIDAC PRASHANT Administration Insulin Aspart 1 vial 08/18/17 22:00 08/28/17 12:11 Novolog Vial Sliding Scale - SQ 4 units ACHS PRASHANT Administration Protocol Morphine Sulfate 60 mg 08/17/17 14:00 08/28/17 14:02 Ms Contin - PO 60 mg TID PRASHANT Administration Morphine Sulfate 15 mg 08/20/17 19:48 08/28/17 03:48 Msir - PO 15 mg Q6H PRN Administration PAIN LEVEL 4 - 6 Non-Formulary Medication 1,000 mg 08/18/17 10:00 08/28/17 10:21 Ascorbic Acid [Vitamin C] PO 1,000 mg DAILY [facility] Administration Ondansetron HCl 8 mg 08/23/17 08:14 Zofran Injection IVPB Q8H PRN NAUSEA Pantoprazole Sodium 40 mg 08/18/17 10:00 08/28/17 10:20 Protonix - PO 40 mg DAILY [facility] Administration Polyethylene Glycol 17 gm 08/27/17 22:00 08/28/17 10:22 Miralax (For Daily Use) - PO 17 grams BID PR[facility]ANT Administration Senna 1 tab 08/21/17 12:00 08/28/17 10:18 Senna - PO 1 tab BID PRASHANT Administration Sertraline HCl 25 mg 08/18/17 10:00 08/28/17 10:18 Zoloft - PO 25 mg DAILY [facility] Administration Sitagliptin Phosphate 50 mg 08/18/17 07:00 08/28/17 06:41 Januvia - PO 50 mg ACBK PRASHANT Administration ASSESSMENT/PLAN: 66 yo F w/ h/o mantle cell lymphoma, NIDDM, diverticulitis, anxiety, bladder dysfunction, HTN, and ITP admitted to the hospital for exertional dyspnea and exacerbation of ITP. PLAN Refractory ITP s/p IVIG, plt transfusion and currently on decadron: plt count cont. to fluctuate, will give rituxin Anemia: stable; HGB to maintain > 9
--- NOTE | 2017-08-28 12:33 | PN ---
Progress Note, Physician History of Present Illness: Stable dyspnea, ambulated. Plts declining again. - Current Medication List Current Medications: Active Medications Albuterol Sulfate (Ventolin Hfa Inhaler -) 2 puff IH Q4H PRN PRN Reason: ASTHMA Allopurinol (Zyloprim -) 150 mg PO DAILY [facility] Last Admin: 08/28/17 10:20 Dose: 150 mg Alprazolam (Xanax -) 0.5 mg PO Q8H PRN PRN Reason: ANXIETY Last Admin: 08/28/17 10:18 Dose: 0.5 mg Amlodipine Besylate (Norvasc -) 5 mg PO DAILY [facility] Last Admin: 08/28/17 10:18 Dose: 5 mg Ascorbic Acid (Vitamin C -) 1,000 mg PO DAILY [facility] Last Admin: 08/28/17 10:21 Dose: 1,000 mg Calcium Carbonate (Calcium Carbonate -) 650 mg PO BID [facility] Last Admin: 08/28/17 10:21 Dose: 650 mg Dexamethasone Sodium Phosphate (Decadron Injection -) 40 mg IVPB DAILY [facility] Last Admin: 08/28/17 10:21 Dose: 40 mg Glipizide (Glucotrol Xl -) 10 mg PO BIDAC [facility] Last Admin: 08/28/17 06:42 Dose: 10 mg Insulin Aspart (Novolog Vial Sliding Scale -) 1 vial SQ ACHS [facility] PRN Reason: Protocol Last Admin: 08/28/17 12:11 Dose: 4 units Morphine Sulfate (Ms Contin -) 60 mg PO TID [facility] Last Admin: 08/28/17 06:00 Dose: 60 mg Morphine Sulfate (Msir -) 15 mg PO Q6H PRN PRN Reason: PAIN LEVEL 4 - 6 Last Admin: 08/28/17 03:48 Dose: 15 mg Non-Formulary Medication (Ascorbic Acid [Vitamin C]) 1,000 mg PO DAILY [facility] Last Admin: 08/28/17 10:21 Dose: 1,000 mg Ondansetron HCl (Zofran Injection) 8 mg IVPB Q8H PRN PRN Reason: NAUSEA Pantoprazole Sodium (Protonix -) 40 mg PO DAILY [facility] Last Admin: 08/28/17 10:20 Dose: 40 mg Polyethylene Glycol (Miralax (For Daily Use) -) 17 gm PO BID [facility] Last Admin: 08/28/17 10:22 Dose: 17 grams Senna (Senna -) 1 tab PO BID [facility] Last Admin: 08/28/17 10:18 Dose: 1 tab Sertraline HCl (Zoloft -) 25 mg PO DAILY [facility] Last Admin: 08/28/17 10:18 Dose: 25 mg Sitagliptin Phosphate (Januvia -) 50 mg PO ACBK [facility] Last Admin: 08/28/17 06:41 Dose: 50 mg - Objective Vital Signs: Vital Signs Temperature 97.6 F 08/28/17 05:24 Pulse Rate 55 L 08/28/17 05:24 Respiratory Rate 20 08/28/17 05:24 Blood Pressure 148/71 08/28/17 05:24 O2 Sat by Pulse Oximetry (%) 97 08/27/17 21:00 Constitutional: Yes: No Distress, Calm Neck: Yes: Supple Cardiovascular: Yes: Regular Rate and Rhythm Respiratory: Yes: Regular, Diminished Gastrointestinal: Yes: Normal Bowel Sounds, Soft, Abdomen, Obese Edema: No Labs: CBC, BMP 08/28/17 06:50 08/28/17 06:50 INR, PTT INR 1.03 (0.82-1.09) 08/24/17 06:00 Problem List - Problems (1) Acute ITP Code(s): D69.3 - IMMUNE THROMBOCYTOPENIC PURPURA (2) Anemia Code(s): D64.9 - ANEMIA, UNSPECIFIED Qualifiers: Anemia type: iron deficiency Iron deficiency anemia type: chronic blood loss Qualified Code(s): D50.0 - Iron deficiency anemia secondary to blood loss (chronic) (3) CKD stage 3 secondary to diabetes Code(s): E11.22 - TYPE 2 DIABETES MELLITUS W DIABETIC CHRONIC KIDNEY DISEASE; N18.3 - CHRONIC KIDNEY DISEASE, STAGE 3 (MODERATE) (4) Diabetes mellitus Code(s): E11.9 - TYPE 2 DIABETES MELLITUS WITHOUT COMPLICATIONS Qualifiers: Diabetes mellitus type: type 2 (5) Diaphragmatic hernia Code(s): K44.9 - DIAPHRAGMATIC HERNIA WITHOUT OBSTRUCTION OR GANGRENE Qualifiers: Obstruction and gangrene presence: without obstruction or gangrene Qualified Code(s): K44.9 - Diaphragmatic hernia without obstruction or gangrene (6) HTN (hypertension) Code(s): I10 - ESSENTIAL (PRIMARY) HYPERTENSION Qualifiers: Hypertension type: essential hypertension Qualified Code(s): I10 - Essential (primary) hypertension (7) Mantle cell lymphoma Code(s): C83.10 - MANTLE CELL LYMPHOMA, UNSPECIFIED SITE Assessment/Plan 08/18/2017 Normal biventricular size and fxn, mild LAE, MR, TR 08/29/2014 Normal LV size and fxn without sig valve abnl 1. Recurrent ITP h/o splenectomy, antiphospholipids worse 2. Recurrent dyspnea on exertion after failure of left diaphragmatic hernia repair/mesh 3. HTN 4. NIDDM 5. History of Mantle Cell Lymphoma 6. Acute on CKD 3 referable to IVIG and hydronephrosis improving 7. Chronic interstitial lung disease 8. 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 Resume Lisinopril 10 qd once renal fxn stable, continue Norvasc 5 qd 2. DVT and GI prophylaxis 3. Completed IVIG/steroids course with monitor Plt, usual transfusion parameters , IV Venofer, considering Rituxan 4. Consideration for re-op diaphragmatic hernia repair after recovery of plt counts 5. O2, BD as needed, wrap legs while in bed
--- NOTE | 2017-08-28 15:28 | PN ---
Progress Note, Physician History of Present Illness: PULMONARY ALERT,NAD,-C/O CP,-SOB. + HAUSER - Current Medication List Current Medications: Active Medications Albuterol Sulfate (Ventolin Hfa Inhaler -) 2 puff IH Q4H PRN PRN Reason: ASTHMA Allopurinol (Zyloprim -) 150 mg PO DAILY [facility] Last Admin: 08/28/17 10:20 Dose: 150 mg Alprazolam (Xanax -) 0.5 mg PO Q8H PRN PRN Reason: ANXIETY Last Admin: 08/28/17 10:18 Dose: 0.5 mg Amlodipine Besylate (Norvasc -) 5 mg PO DAILY [facility] Last Admin: 08/28/17 10:18 Dose: 5 mg Ascorbic Acid (Vitamin C -) 1,000 mg PO DAILY [facility] Last Admin: 08/28/17 10:21 Dose: 1,000 mg Calcium Carbonate (Calcium Carbonate -) 650 mg PO BID [facility] Last Admin: 08/28/17 10:21 Dose: 650 mg Dexamethasone Sodium Phosphate (Decadron Injection -) 40 mg IVPB DAILY [facility] Last Admin: 08/28/17 10:21 Dose: 40 mg Glipizide (Glucotrol Xl -) 10 mg PO BIDAC [facility] Last Admin: 08/28/17 06:42 Dose: 10 mg Insulin Aspart (Novolog Vial Sliding Scale -) 1 vial SQ ACHS [facility] PRN Reason: Protocol Last Admin: 08/28/17 12:11 Dose: 4 units Morphine Sulfate (Ms Contin -) 60 mg PO TID [facility] Last Admin: 08/28/17 14:02 Dose: 60 mg Morphine Sulfate (Msir -) 15 mg PO Q6H PRN PRN Reason: PAIN LEVEL 4 - 6 Last Admin: 08/28/17 03:48 Dose: 15 mg Non-Formulary Medication (Ascorbic Acid [Vitamin C]) 1,000 mg PO DAILY [facility] Last Admin: 08/28/17 10:21 Dose: 1,000 mg Ondansetron HCl (Zofran Injection) 8 mg IVPB Q8H PRN PRN Reason: NAUSEA Pantoprazole Sodium (Protonix -) 40 mg PO DAILY [facility] Last Admin: 08/28/17 10:20 Dose: 40 mg Polyethylene Glycol (Miralax (For Daily Use) -) 17 gm PO BID [facility] Last Admin: 08/28/17 10:22 Dose: 17 grams Senna (Senna -) 1 tab PO BID [facility] Last Admin: 08/28/17 10:18 Dose: 1 tab Sertraline HCl (Zoloft -) 25 mg PO DAILY [facility] Last Admin: 08/28/17 10:18 Dose: 25 mg Sitagliptin Phosphate (Januvia -) 50 mg PO ACBK [facility] Last Admin: 08/28/17 06:41 Dose: 50 mg - Objective Vital Signs: Vital Signs Temperature 97.9 F 08/28/17 10:00 Pulse Rate 69 08/28/17 10:00 Respiratory Rate 20 08/28/17 10:00 Blood Pressure 154/57 08/28/17 10:00 O2 Sat by Pulse Oximetry (%) 97 08/28/17 09:00 Constitutional: Yes: Well Nourished, Calm Eyes: Yes: WNL HENT: Yes: WNL Neck: Yes: WNL Cardiovascular: Yes: Regular Rate and Rhythm, S1, S2 Respiratory: Yes: CTA Bilaterally Gastrointestinal: Yes: Normal Bowel Sounds, Soft Extremities: Yes: WNL Edema: No Labs: CBC, BMP 08/28/17 06:50 08/28/17 06:50 INR, PTT INR 1.03 (0.82-1.09) 08/24/17 06:00 Assessment/Plan Recurrent ITP Left Diaphragmatic Hernia Acute on Chronic Renal Failure Interstitial Lung Disease HTN DM h/o Lymphoma R/O OSAS - monitor urine output, creatinine - Dexamethasone - O2 to keep SpO2 >90% - inhaled bronchodilators - monitor CBC/PLTS - DVT prophylaxis - SLEEP SCREEN DR ISRA[place] Problem List - Problems (1) Abdominal pain Code(s): R10.9 - UNSPECIFIED ABDOMINAL PAIN (2) Acute ITP Code(s): D69.3 - IMMUNE THROMBOCYTOPENIC PURPURA (3) Anemia Code(s): D64.9 - ANEMIA, UNSPECIFIED Qualifiers: Anemia type: iron deficiency Iron deficiency anemia type: chronic blood loss Qualified Code(s): D50.0 - Iron deficiency anemia secondary to blood loss (chronic) (4) CKD stage 3 secondary to diabetes Code(s): E11.22 - TYPE 2 DIABETES MELLITUS W DIABETIC CHRONIC KIDNEY DISEASE; N18.3 - CHRONIC KIDNEY DISEASE, STAGE 3 (MODERATE) (5) DVT prophylaxis Code(s): [id number] - (6) Diabetes mellitus Code(s): E11.9 - TYPE 2 DIABETES MELLITUS WITHOUT COMPLICATIONS Qualifiers: Diabetes mellitus type: type 2 (7) Diaphragmatic hernia Code(s): K44.9 - DIAPHRAGMATIC HERNIA WITHOUT OBSTRUCTION OR GANGRENE Qualifiers: Obstruction and gangrene presence: without obstruction or gangrene Qualified Code(s): K44.9 - Diaphragmatic hernia without obstruction or gangrene (8) HTN (hypertension) Code(s): I10 - ESSENTIAL (PRIMARY) HYPERTENSION Qualifiers: Hypertension type: essential hypertension Qualified Code(s): I10 - Essential (primary) hypertension (9) Mantle cell lymphoma Code(s): C83.10 - MANTLE CELL LYMPHOMA, UNSPECIFIED SITE (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
--- NOTE | 2017-08-28 16:25 | PN ---
Progress Note, Physician Chief Complaint: Ms Painting denies cp, sob, n/v. - Current Medication List Current Medications: Active Medications Albuterol Sulfate (Ventolin Hfa Inhaler -) 2 puff IH Q4H PRN PRN Reason: ASTHMA Allopurinol (Zyloprim -) 150 mg PO DAILY [facility] Last Admin: 08/28/17 10:20 Dose: 150 mg Alprazolam (Xanax -) 0.5 mg PO Q8H PRN PRN Reason: ANXIETY Last Admin: 08/28/17 10:18 Dose: 0.5 mg Amlodipine Besylate (Norvasc -) 5 mg PO DAILY [facility] Last Admin: 08/28/17 10:18 Dose: 5 mg Ascorbic Acid (Vitamin C -) 1,000 mg PO DAILY [facility] Last Admin: 08/28/17 10:21 Dose: 1,000 mg Calcium Carbonate (Calcium Carbonate -) 650 mg PO BID [facility] Last Admin: 08/28/17 10:21 Dose: 650 mg Dexamethasone Sodium Phosphate (Decadron Injection -) 40 mg IVPB DAILY [facility] Last Admin: 08/28/17 10:21 Dose: 40 mg Glipizide (Glucotrol Xl -) 10 mg PO BIDAC [facility] Last Admin: 08/28/17 06:42 Dose: 10 mg Insulin Aspart (Novolog Vial Sliding Scale -) 1 vial SQ ACHS [facility] PRN Reason: Protocol Last Admin: 08/28/17 12:11 Dose: 4 units Morphine Sulfate (Ms Contin -) 60 mg PO TID [facility] Last Admin: 08/28/17 14:02 Dose: 60 mg Morphine Sulfate (Msir -) 15 mg PO Q6H PRN PRN Reason: PAIN LEVEL 4 - 6 Last Admin: 08/28/17 03:48 Dose: 15 mg Non-Formulary Medication (Ascorbic Acid [Vitamin C]) 1,000 mg PO DAILY [facility] Last Admin: 08/28/17 10:21 Dose: 1,000 mg Ondansetron HCl (Zofran Injection) 8 mg IVPB Q8H PRN PRN Reason: NAUSEA Pantoprazole Sodium (Protonix -) 40 mg PO DAILY [facility] Last Admin: 08/28/17 10:20 Dose: 40 mg Polyethylene Glycol (Miralax (For Daily Use) -) 17 gm PO BID [facility] Last Admin: 08/28/17 10:22 Dose: 17 grams Senna (Senna -) 1 tab PO BID [facility] Last Admin: 08/28/17 10:18 Dose: 1 tab Sertraline HCl (Zoloft -) 25 mg PO DAILY [facility] Last Admin: 08/28/17 10:18 Dose: 25 mg Sitagliptin Phosphate (Januvia -) 50 mg PO ACBK [facility] Last Admin: 08/28/17 06:41 Dose: 50 mg - Objective Vital Signs: Vital Signs Temperature 36.6 C 08/28/17 15:29 Pulse Rate 60 08/28/17 15:29 Respiratory Rate 20 08/28/17 15:29 Blood Pressure 138/50 08/28/17 15:29 O2 Sat by Pulse Oximetry (%) 97 08/28/17 09:00 Constitutional: Yes: No Distress, Calm, Obese Cardiovascular: Yes: Regular Rate and Rhythm. No: Gallop, Murmur, Rub Respiratory: Yes: Regular, CTA Bilaterally. No: Rales, Rhonchi, Wheezes Gastrointestinal: Yes: Normal Bowel Sounds, Soft. No: Distention, Tenderness Extremities: Yes: WNL Edema: No Labs: CBC, BMP 08/28/17 06:50 08/28/17 06:50 INR, PTT INR 1.03 (0.82-1.09) 08/24/17 06:00 Assessment/Plan (1) Hypoxia Assessment/Plan: -possibly secondary to diaphragmatic hernia -outpatient evaluation for repair -appreciate pulmonary assistance -continue current management -repeat pre and post as an outpatient Code(s): R09.02 - HYPOXEMIA (2) Weakness Assessment/Plan: -secondary to ITP -resolved Code(s): R53.1 - WEAKNESS (3) Acute ITP Assessment/Plan: -response to IVIg not robust this time -also stopped early secondary to renal function -now with severe thrombocytopenia again -s/p transfusions -possible rituxan while here, defer to hematology Code(s): D69.3 - IMMUNE THROMBOCYTOPENIC PURPURA (4) CKD stage 3 secondary to diabetes Assessment/Plan: -continues to improve Code(s): E11.22 - TYPE 2 DIABETES MELLITUS W DIABETIC CHRONIC KIDNEY DISEASE; N18.3 - CHRONIC KIDNEY DISEASE, STAGE 3 (MODERATE) (5) Chronic pain Assessment/Plan: -continue MS contin -continue prn xanax Code(s): G89.29 - OTHER CHRONIC PAIN Qualifiers: Chronic pain type: chronic pain syndrome Qualified Code(s): G89.4 - Chronic pain syndrome (6) Diabetes mellitus Assessment/Plan: -continue home regimen -FSBS and SSI Code(s): E11.9 - TYPE 2 DIABETES MELLITUS WITHOUT COMPLICATIONS (7) HTN (hypertension) Assessment/Plan: -continue amlodipine -may be contributing to lower extremity edema Code(s): I10 - ESSENTIAL (PRIMARY) HYPERTENSION Qualifiers: (8) Anemia -appreciate GI assistance -s/p scopes -polyp biopsied and angiodysplasia noted
--- NOTE | 2017-08-28 23:44 | PN ---
Progress Note (short form) - Note Progress Note: PAtient seen and examined Denies any complaints Last Vital Signs Temp Pulse Resp BP Pulse Ox 97.8 F 61 20 155/61 95 08/28/17 22:00 08/28/17 22:00 08/28/17 22:00 08/28/17 22:00 08/28/17 21:00 Cor: RSR, No murmurs, No gallops Lungs: Clear to P&A Abd: Soft, Normal bowel sounds, No organomegaly Ext:No significant edema Abnormal Lab Results 08/28/17 08/28/17 06:50 06:50 Hgb 9.5 L Hct 31.2 L MCV 79.4 L MCH 24.2 L MCHC 30.5 L RDW 28.0 H Plt Count 17 L* D Neutrophils % (Manual) 90.0 H Monocytes % (Manual) 2 L D Sodium 134 L Anion Gap 7 L BUN 28 H Creatinine 1.3 H Random Glucose 249 H Calcium 8.4 L Albumin 3.0 L Active Medications Generic Name Dose Route Start Last Admin Trade Name Freq PRN Reason Stop Dose Admin Albuterol Sulfate 2 puff 08/17/17 15:49 Ventolin Hfa Inhaler - IH Q4H PRN ASTHMA Allopurinol 150 mg 08/18/17 10:00 08/28/17 10:20 Zyloprim - PO 150 mg DAILY [facility] Administration Alprazolam 0.5 mg 08/22/17 12:54 08/28/17 23:16 Xanax - PO 0.5 mg Q8H PRN Administration ANXIETY Amlodipine Besylate 5 mg 08/18/17 10:00 08/28/17 10:18 Norvasc - PO 5 mg DAILY [facility] Administration Ascorbic Acid 1,000 mg 08/18/17 10:00 08/28/17 10:21 Vitamin C - PO 1,000 mg DAILY [facility] Administration Calcium Carbonate 650 mg 08/17/17 22:00 08/28/17 23:10 Calcium Carbonate - PO 650 mg BID [facility] Administration Dexamethasone Sodium Phosphate 40 mg 08/26/17 10:12 08/28/17 10:21 Decadron Injection - IVPB 40 mg DAILY [facility] Administration Glipizide 10 mg 08/17/17 16:30 08/28/17 17:34 Glucotrol Xl - PO 10 mg BIDAC [facility] Administration Insulin Aspart 1 vial 08/18/17 22:00 08/28/17 23:12 Novolog Vial Sliding Scale - SQ 6 units ACHS [facility] Administration Protocol Morphine Sulfate 60 mg 08/17/17 14:00 08/28/17 23:11 Ms Contin - PO 60 mg TID [facility] Administration Morphine Sulfate 15 mg 08/20/17 19:48 08/28/17 03:48 Msir - PO 15 mg Q6H PRN Administration PAIN LEVEL 4 - 6 Non-Formulary Medication 1,000 mg 08/18/17 10:00 08/28/17 10:21 Ascorbic Acid [Vitamin C] PO 1,000 mg DAILY [facility] Administration Ondansetron HCl 8 mg 08/23/17 08:14 Zofran Injection IVPB Q8H PRN NAUSEA Pantoprazole Sodium 40 mg 08/18/17 10:00 08/28/17 10:20 Protonix - PO 40 mg DAILY [facility] Administration Polyethylene Glycol 17 gm 08/27/17 22:00 08/28/17 23:13 Miralax (For Daily Use) - PO 17 grams BID [facility] Administration Senna 1 tab 08/21/17 12:00 08/28/17 23:11 Senna - PO 1 tab BID [facility] Administration Sertraline HCl 25 mg 08/18/17 10:00 08/28/17 10:18 Zoloft - PO 25 mg DAILY [facility] Administration Sitagliptin Phosphate 50 mg 08/18/17 07:00 08/28/17 06:41 Januvia - PO 50 mg ACBK [facility] Administration A/P 66 y/o patient with ITP/mantle cell lymphoma, h/o antiphospholipids, nephrolithiasis, DM, comes in with recurrent ITP and worsening anemia, exertional dyspnea, fatigue No active bleeding ITP : frequent recurrences. poor response to sterids/ivig PET-CT 06/29 showed small nodes mesenteric, external iliac with low SUVs ? inflammatory s/p 4 days IVIG on dexamethasone 40mg daily for rituxan discussed with patient anemia--monitor s/p colonoscopy/egd ? avms renal function improving
[2017-08-29] MEDS: morphine SULFATE IMMEDIATE RELEASE 30 MG TAB PO PRN ×3 (01:43→16:48)
[2017-08-29] MEDS: sitaGLIPtin PHOSPHATE 50 MG TABLET PO SCH (06:37)
[2017-08-29] MEDS: glipiZIDE-XL 10 MG TAB.ER.24 (FP) PO SCH ×2 (06:37→16:48)
[2017-08-29] MEDS: morphine SO4 SUSTAINED ACTING 30 MG TABLET.SA PO SCH ×3 (06:37→22:03)
[2017-08-29] MEDS: INSULIN SLIDING SCALE (NOVOLOG) 1 VIAL SQ SCH ×4 (06:38→22:05)
[2017-08-29 07:48] LABS: HEMATOCRIT 31.7 % (32.4-45.2); HEMOGLOBIN 9.8 GM/dL (10.7-15.3); MCH 24.3 pg (25.7-33.7); MCHC 30.8 g/dl (32.0-36.0); MEAN CELL VOLUME 78.9 fl (80-96); MEAN PLT VOLUME 10.8 fl (7.5-11.1); RBC 4.01 M/mm3 (3.60-5.2); RDW 27.1 % (11.6-15.6); WHITE BLOOD COUNT 7.2 K/mm3 (4.0-10.0)
[2017-08-29 08:02] LABS: ALBUMIN 2.9 g/dl (3.4-5.0); ANION GAP 6 (8-16); BLOOD UREA NITROGEN 32 mg/dL (7-18); CALCIUM 8.1 mg/dL (8.5-10.1); CHLORIDE 100 mmol/L (98-107); CO2 29 mmol/L (21-32); CREATININE 1.2 mg/dL (0.55-1.02); GLUCOSE,RANDOM 195 mg/dL (74-106); PHOSPHOROUS 2.9 mg/dL (2.5-4.9); POTASSIUM 3.5 mmol/L (3.5-5.1); SGOT/AST 10 U/L (15-37); SGPT/ALT 21 U/L (12-78); SODIUM 135 mmol/L (136-145)
[2017-08-29 08:05] LABS: ALK PHOS 46 U/L (45-117); BILIRUBIN,TOTAL 0.3 mg/dL (0.2-1.0); TOT PROT 7.5 g/dl (6.4-8.2)
[2017-08-29 08:25] LABS: PLATELET COUNT 16 K/MM3 (134-434)
[2017-08-29 09:42] LABS: ANISOCYTOSIS 3+; MACROCYTOSIS 1+; PLATELET ESTIMATE DECREASED; TARGET CELLS 1+
[2017-08-29] MEDS: SERTRALINE HCL 25 MG TABLET (FP) PO SCH (09:54)
[2017-08-29] MEDS: ALPRAZolam 0.25 MG TABLET PO PRN ×2 (09:54→22:02)
[2017-08-29] MEDS: POLYETHYLENE GLYCOL 3350 119 GM BTL PO SCH ×2 (09:54→22:04)
[2017-08-29] MEDS: PANTOPRAZOLE 40 MG TABLET (FP) PO SCH (09:55)
[2017-08-29] MEDS: amLODIPine BESYLATE 5 MG TABLET (FP) PO SCH (09:55)
[2017-08-29] MEDS: DEXAMETHASONE SOD PHOSPHATE 10 MG/1 ML VIAL IVPB SCH (09:55)
[2017-08-29] MEDS: ASCORBIC ACID 500 MG TABLET (FP) PO SCH (09:55)
[2017-08-29] MEDS: SENNOSIDES 8.6MG TABLET (FP) PO SCH ×2 (09:55→22:04)
[2017-08-29] MEDS: ALLOPURINOL 100 MG TABLET (FP) PO SCH (09:56)
[2017-08-29] MEDS: CALCIUM CARBONATE 650 MG TABLET PO SCH ×2 (09:57→22:05)
[2017-08-29] MEDS: ASCORBIC ACID 1000 MG PO SCH (09:57)
--- NOTE | 2017-08-29 10:12 | PN ---
Progress Note, Physician Chief Complaint: Events noted Not in distress Denies chest pain or palpitations Low platelet History of Present Illness: Patient was seen and examined. Awake and alert. Chart was reviewed Denies chest pain, SOB or palpitations - Current Medication List Current Medications: Active Medications Albuterol Sulfate (Ventolin Hfa Inhaler -) 2 puff IH Q4H PRN PRN Reason: ASTHMA Allopurinol (Zyloprim -) 150 mg PO DAILY [facility] Last Admin: 08/29/17 09:56 Dose: 150 mg Alprazolam (Xanax -) 0.5 mg PO Q8H PRN PRN Reason: ANXIETY Last Admin: 08/29/17 09:54 Dose: 0.5 mg Amlodipine Besylate (Norvasc -) 5 mg PO DAILY [facility] Last Admin: 08/29/17 09:55 Dose: 5 mg Ascorbic Acid (Vitamin C -) 1,000 mg PO DAILY [facility] Last Admin: 08/29/17 09:55 Dose: 1,000 mg Calcium Carbonate (Calcium Carbonate -) 650 mg PO BID [facility] Last Admin: 08/29/17 09:57 Dose: 650 mg Dexamethasone Sodium Phosphate (Decadron Injection -) 40 mg IVPB DAILY [facility] Last Admin: 08/29/17 09:55 Dose: 40 mg Glipizide (Glucotrol Xl -) 10 mg PO BIDAC [facility] Last Admin: 08/29/17 06:37 Dose: 10 mg Insulin Aspart (Novolog Vial Sliding Scale -) 1 vial SQ ACHS [facility] PRN Reason: Protocol Last Admin: 08/29/17 06:38 Dose: 2 units Morphine Sulfate (Ms Contin -) 60 mg PO TID [facility] Last Admin: 08/29/17 06:37 Dose: 60 mg Morphine Sulfate (Msir -) 15 mg PO Q6H PRN PRN Reason: PAIN LEVEL 4 - 6 Last Admin: 08/29/17 09:56 Dose: 15 mg Non-Formulary Medication (Ascorbic Acid [Vitamin C]) 1,000 mg PO DAILY [facility] Last Admin: 08/29/17 09:57 Dose: 1,000 mg Ondansetron HCl (Zofran Injection) 8 mg IVPB Q8H PRN PRN Reason: NAUSEA Pantoprazole Sodium (Protonix -) 40 mg PO DAILY [facility] Last Admin: 08/29/17 09:55 Dose: 40 mg Polyethylene Glycol (Miralax (For Daily Use) -) 17 gm PO BID [facility] Last Admin: 08/29/17 09:54 Dose: 17 grams Senna (Senna -) 1 tab PO BID [facility] Last Admin: 08/29/17 09:55 Dose: 1 tab Sertraline HCl (Zoloft -) 25 mg PO DAILY [facility] Last Admin: 08/29/17 09:54 Dose: 25 mg Sitagliptin Phosphate (Januvia -) 50 mg PO ACBK [facility] Last Admin: 08/29/17 06:37 Dose: 50 mg - Objective Vital Signs: Vital Signs Temperature 97.7 F 08/29/17 05:59 Pulse Rate 56 L 08/29/17 05:59 Respiratory Rate 20 08/29/17 05:59 Blood Pressure 155/61 08/28/17 22:00 O2 Sat by Pulse Oximetry (%) 95 08/28/17 21:00 HENT: Yes: Atraumatic Neck: Yes: Supple Cardiovascular: Yes: Regular Rate and Rhythm, S1 Respiratory: Yes: Diminished Gastrointestinal: Yes: Normal Bowel Sounds, Soft. No: Tenderness Edema: No Labs: CBC, BMP 08/29/17 06:00 08/29/17 06:00 Problem List - Problems (1) SOB (shortness of breath) Code(s): R06.02 - SHORTNESS OF BREATH (2) Thrombocytopenia Code(s): D69.6 - THROMBOCYTOPENIA, UNSPECIFIED (3) Weakness Code(s): R53.1 - WEAKNESS (4) Acute ITP Code(s): D69.3 - IMMUNE THROMBOCYTOPENIC PURPURA (5) Anemia Code(s): D64.9 - ANEMIA, UNSPECIFIED Qualifiers: Anemia type: iron deficiency Iron deficiency anemia type: chronic blood loss Qualified Code(s): D50.0 - Iron deficiency anemia secondary to blood loss (chronic) (6) CKD stage 3 secondary to diabetes Code(s): E11.22 - TYPE 2 DIABETES MELLITUS W DIABETIC CHRONIC KIDNEY DISEASE; N18.3 - CHRONIC KIDNEY DISEASE, STAGE 3 (MODERATE) (7) HTN (hypertension) Code(s): I10 - ESSENTIAL (PRIMARY) HYPERTENSION Qualifiers: Hypertension type: essential hypertension Qualified Code(s): I10 - Essential (primary) hypertension (8) Hyperkalemia Code(s): E87.5 - HYPERKALEMIA (9) ITP (idiopathic thrombocytopenic purpura) Code(s): D69.3 - IMMUNE THROMBOCYTOPENIC PURPURA (10) Mantle cell lymphoma Code(s): C83.10 - MANTLE CELL LYMPHOMA, UNSPECIFIED SITE (11) Staghorn kidney stones Code(s): N20.0 - CALCULUS OF KIDNEY (12) T2DM (type 2 diabetes mellitus) Code(s): E11.9 - TYPE 2 DIABETES MELLITUS WITHOUT COMPLICATIONS Qualifiers: Diabetes mellitus correction insulin use: without correction use Diabetes mellitus complication status: without complication Qualified Code(s): E11.9 - Type 2 diabetes mellitus without complications Assessment/Plan 1. Recurrent ITP h/o splenectomy and antiphospholipids 2. Recurrent dyspnea on exertion after failure of left diaphragmatic hernia repair/mesh 3. HTN 4. NIDDM 5. History of Mantle Cell Lymphoma 6. Acute on CKD 3, staghorn calculi and hydronephrosis 7. Chronic interstitial lung disease PLAN: 1. Resume Lisinopril once renal function stabilizes. Continue Norvasc 2. DVT and GI prophylaxis 3. Steroids and IVIG course with monitoring CBC 4. Consideration for re-op diaphragmatic hernia repair after recovery of platelet counts 5. O2 and bronchodilators as needed 6. Monitor I/Os and renal function 7. Considering Rituxin therapy as per Hematology Further plans are to follow Abdon Salinas MD
--- NOTE | 2017-08-29 10:56 | PN ---
Progress Note (short form) - Note Progress Note: Breathing feels better today. Less SOB. Ambulating in the hallway with a walker. No acute events overnight. Minimal dry cough. No hemoptysis. Intake & Output 08/26/17 08/27/17 08/28/17 08/29/17 23:59 23:59 23:59 23:59 Intake Total 300 1250 650 Balance 300 1250 650 Weight 239 lb Last Vital Signs Temp Pulse Resp BP Pulse Ox 97.7 F 56 L 20 155/61 95 08/29/17 05:59 08/29/17 05:59 08/29/17 05:59 08/28/17 22:00 08/28/17 21:00 Home Medication List Medication Instructions Recorded Confirmed Type Sertraline HCl [Zoloft -] 25 mg PO DAILY 08/28/14 08/17/17 History Morphine Sulfate 15 mg PO QID PRN 03/31/16 08/17/17 History Albuterol Sulfate Inhaler - 1 - 2 inh PO PRN 08/09/16 08/17/17 History [Ventolin HFA Inhaler -] Calcium Carbonate 648 mg PO BID 08/09/16 08/17/17 History Sitagliptin Phosphate [Januvia] 50 mg PO DAILY 03/18/17 08/17/17 History Acetaminophen [Tylenol .Regular 650 mg PO PRN 05/26/17 08/17/17 History Strength -] Ascorbic Acid [Vitamin C] 1,000 mg PO DAILY 08/17/17 08/17/17 History Ferrous Sulfate 325 mg PO DAILY 08/17/17 08/17/17 History Furosemide [Lasix] 40 mg PO DAILY 08/17/17 08/17/17 History Active Medications Generic Name Dose Route Start Last Admin Trade Name Freq PRN Reason Stop Dose Admin Albuterol Sulfate 2 puff 08/17/17 15:49 Ventolin Hfa Inhaler - IH Q4H PRN ASTHMA Allopurinol 150 mg 08/18/17 10:00 08/29/17 09:56 Zyloprim - PO 150 mg DAILY PR[facility]ANT Administration Alprazolam 0.5 mg 08/22/17 12:54 08/29/17 09:54 Xanax - PO 0.5 mg Q8H PRN Administration ANXIETY Amlodipine Besylate 5 mg 08/18/17 10:00 08/29/17 09:55 Norvasc - PO 5 mg DAILY PRASHANT Administration Ascorbic Acid 1,000 mg 08/18/17 10:00 08/29/17 09:55 Vitamin C - PO 1,000 mg DAILY PRASHANT Administration Calcium Carbonate 650 mg 08/17/17 22:00 08/29/17 09:57 Calcium Carbonate - PO 650 mg BID PRASHANT Administration Dexamethasone Sodium Phosphate 40 mg 08/26/17 10:12 08/29/17 09:55 Decadron Injection - IVPB 40 mg DAILY PR[facility] Administration Glipizide 10 mg 08/17/17 16:30 08/29/17 06:37 Glucotrol Xl - PO 10 mg BIDAC PRASHANT Administration Insulin Aspart 1 vial 08/18/17 22:00 08/29/17 06:38 Novolog Vial Sliding Scale - SQ 2 units ACHS PR[facility]ANT Administration Protocol Morphine Sulfate 60 mg 08/17/17 14:00 08/29/17 06:37 Ms Contin - PO 60 mg TID PR[facility]ANT Administration Morphine Sulfate 15 mg 08/20/17 19:48 08/29/17 09:56 Msir - PO 15 mg Q6H PRN Administration PAIN LEVEL 4 - 6 Non-Formulary Medication 1,000 mg 08/18/17 10:00 08/29/17 09:57 Ascorbic Acid [Vitamin C] PO 1,000 mg DAILY PR[facility]ANT Administration Ondansetron HCl 8 mg 08/23/17 08:14 Zofran Injection IVPB Q8H PRN NAUSEA Pantoprazole Sodium 40 mg 08/18/17 10:00 08/29/17 09:55 Protonix - PO 40 mg DAILY [facility] Administration Polyethylene Glycol 17 gm 08/27/17 22:00 08/29/17 09:54 Miralax (For Daily Use) - PO 17 grams BID PR[facility]ANT Administration Senna 1 tab 08/21/17 12:00 08/29/17 09:55 Senna - PO 1 tab BID PR[facility]ANT Administration Sertraline HCl 25 mg 08/18/17 10:00 08/29/17 09:54 Zoloft - PO 25 mg DAILY [facility] Administration Sitagliptin Phosphate 50 mg 08/18/17 07:00 08/29/17 06:37 Januvia - PO 50 mg ACBK PR[facility]ANT Administration Constitutional: Yes: NAD Eyes: Yes: EOM Intact HENT: Yes: Normocephalic Neck: Yes: Trachea Midline Cardiovascular: Yes: S1, S2 Respiratory: Yes: Diminished at the bases Gastrointestinal: Yes: Soft, Abdomen, Obese Edema: LLE: 1+, RLE: 1+ Neurological: Yes: Alert Labs: Laboratory Results - last 24 hr 08/28/17 08/28/17 08/28/17 06:50 10:58 17:32 WBC RBC Hgb Hct MCV MCH MCHC RDW Plt Count MPV Total Counted Neutrophils % Neutrophils % (Manual) 90.0 H Band Neutrophils % 0.0 Lymphocytes % Lymphocytes % (Manual) 8.0 D Monocytes % (Manual) 2 L D Eosinophils % (Manual) 0.0 Basophils % (Manual) 0.0 Myelocytes % (Man) 0 Promyelocytes % (Man) 0 Blast Cells % (Manual) 0 Nucleated RBC % 0 Metamyelocytes 0 Hypochromia 2+ Platelet Estimate Decreased Polychromasia 1+ Anisocytosis 2+ Microcytosis 2+ Macrocytosis Target Cells 2+ Fragmented RBCs Sodium Potassium Chloride Carbon Dioxide Anion Gap BUN Creatinine Creat Clearance w eGFR POC Glucometer 289 294 Random Glucose Calcium Phosphorus Magnesium Total Bilirubin AST ALT Alkaline Phosphatase Total Protein Albumin 08/28/17 08/29/17 08/29/17 22:53 06:00 06:00 WBC 7.2 RBC 4.01 Hgb 9.8 L Hct 31.7 L MCV 78.9 L MCH 24.3 L MCHC 30.8 L RDW 27.1 H Plt Count 16 L* MPV 10.8 Total Counted 100 Neutrophils % No Result Required. Neutrophils % (Manual) 83.0 H Band Neutrophils % Lymphocytes % No Result Required. Lymphocytes % (Manual) 8.0 Monocytes % (Manual) 9 D Eosinophils % (Manual) Basophils % (Manual) Myelocytes % (Man) Promyelocytes % (Man) Blast Cells % (Manual) Nucleated RBC % Metamyelocytes Hypochromia Platelet Estimate Decreased Polychromasia Anisocytosis 3+ Microcytosis 2+ Macrocytosis 1+ Target Cells 1+ Fragmented RBCs 1+ Sodium 135 L Potassium 3.5 Chloride 100 Carbon Dioxide 29 Anion Gap 6 L BUN 32 H Creatinine 1.2 H Creat Clearance w eGFR 44.95 POC Glucometer 331 Random Glucose 195 H Calcium 8.1 L Phosphorus 2.9 Magnesium 2.0 Total Bilirubin 0.3 D AST 10 L ALT 21 Alkaline Phosphatase 46 Total Protein 7.5 Albumin 2.9 L 08/29/17 06:36 WBC RBC Hgb Hct MCV MCH MCHC RDW Plt Count MPV Total Counted Neutrophils % Neutrophils % (Manual) Band Neutrophils % Lymphocytes % Lymphocytes % (Manual) Monocytes % (Manual) Eosinophils % (Manual) Basophils % (Manual) Myelocytes % (Man) Promyelocytes % (Man) Blast Cells % (Manual) Nucleated RBC % Metamyelocytes Hypochromia Platelet Estimate Polychromasia Anisocytosis Microcytosis Macrocytosis Target Cells Fragmented RBCs Sodium Potassium Chloride Carbon Dioxide Anion Gap BUN Creatinine Creat Clearance w eGFR POC Glucometer 204 Random Glucose Calcium Phosphorus Magnesium Total Bilirubin AST ALT Alkaline Phosphatase Total Protein Albumin Problem List - Problems (1) Abdominal pain Code(s): R10.9 - UNSPECIFIED ABDOMINAL PAIN (2) Acute ITP Code(s): D69.3 - IMMUNE THROMBOCYTOPENIC PURPURA (3) Anemia Code(s): D64.9 - ANEMIA, UNSPECIFIED (4) CKD stage 3 secondary to diabetes Code(s): E11.22 - TYPE 2 DIABETES MELLITUS W DIABETIC CHRONIC KIDNEY DISEASE; N18.3 - CHRONIC KIDNEY DISEASE, STAGE 3 (MODERATE) (5) DVT prophylaxis Code(s): [id number] - (6) Diabetes mellitus Code(s): E11.9 - TYPE 2 DIABETES MELLITUS WITHOUT COMPLICATIONS (7) Diaphragmatic hernia Code(s): K44.9 - DIAPHRAGMATIC HERNIA WITHOUT OBSTRUCTION OR GANGRENE Qualifiers: Obstruction and gangrene presence: without obstruction or gangrene Qualified Code(s): K44.9 - Diaphragmatic hernia without obstruction or gangrene (8) HTN (hypertension) Code(s): I10 - ESSENTIAL (PRIMARY) HYPERTENSION Qualifiers: (9) Mantle cell lymphoma Code(s): C83.10 - MANTLE CELL LYMPHOMA, UNSPECIFIED SITE (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
[2017-08-29 14:13] LABS: DRVVT - 41.1 sec (0.0-47.0)
--- NOTE | 2017-08-29 14:46 | PN ---
Progress Note (short form) - Note Progress Note: Renal Follow up for ARLETTE on CKD Pt seen and examined at the bedside no complaints no sob, chest pain, abd pain, LE swelling Vital Signs Temperature 97.7 F 08/29/17 13:59 Pulse Rate 57 L 08/29/17 13:59 Respiratory Rate 20 08/29/17 13:59 Blood Pressure 130/45 08/29/17 13:59 O2 Sat by Pulse Oximetry (%) 97 08/29/17 09:00 Intake & Output 08/26/17 08/27/17 08/28/17 08/29/17 23:59 23:59 23:59 23:59 Intake Total 300 1250 650 500 Balance 300 1250 650 500 Weight 108.409 kg NAD on NC O2 RRR, no M/R CTA in anterior exam Abd obese, midl tenderness LUQ no Le edema CBC, BMP 08/29/17 06:00 08/29/17 06:00 Current Medications Albuterol Sulfate (Ventolin Hfa Inhaler -) 2 puff IH Q4H PRN PRN Reason: ASTHMA Allopurinol (Zyloprim -) 150 mg PO DAILY [facility] Last Admin: 08/29/17 09:56 Dose: 150 mg Alprazolam (Xanax -) 0.5 mg PO Q8H PRN PRN Reason: ANXIETY Last Admin: 08/29/17 09:54 Dose: 0.5 mg Amlodipine Besylate (Norvasc -) 5 mg PO DAILY [facility] Last Admin: 08/29/17 09:55 Dose: 5 mg Ascorbic Acid (Vitamin C -) 1,000 mg PO DAILY [facility] Last Admin: 08/29/17 09:55 Dose: 1,000 mg Calcium Carbonate (Calcium Carbonate -) 650 mg PO BID [facility] Last Admin: 08/29/17 09:57 Dose: 650 mg Dexamethasone Sodium Phosphate (Decadron Injection -) 40 mg IVPB DAILY [facility] Last Admin: 08/29/17 09:55 Dose: 40 mg Glipizide (Glucotrol Xl -) 10 mg PO BIDAC [facility] Last Admin: 08/29/17 06:37 Dose: 10 mg Insulin Aspart (Novolog Vial Sliding Scale -) 1 vial SQ ACHS [facility] PRN Reason: Protocol Last Admin: 08/29/17 11:32 Dose: Not Given Morphine Sulfate (Ms Contin -) 60 mg PO TID [facility] Last Admin: 08/29/17 13:28 Dose: 60 mg Morphine Sulfate (Msir -) 15 mg PO Q6H PRN PRN Reason: PAIN LEVEL 4 - 6 Last Admin: 08/29/17 09:56 Dose: 15 mg Non-Formulary Medication (Ascorbic Acid [Vitamin C]) 1,000 mg PO DAILY [facility] Last Admin: 08/29/17 09:57 Dose: 1,000 mg Ondansetron HCl (Zofran Injection) 8 mg IVPB Q8H PRN PRN Reason: NAUSEA Pantoprazole Sodium (Protonix -) 40 mg PO DAILY [facility] Last Admin: 08/29/17 09:55 Dose: 40 mg Polyethylene Glycol (Miralax (For Daily Use) -) 17 gm PO BID [facility] Last Admin: 08/29/17 09:54 Dose: 17 grams Senna (Senna -) 1 tab PO BID [facility] Last Admin: 08/29/17 09:55 Dose: 1 tab Sertraline HCl (Zoloft -) 25 mg PO DAILY [facility] Last Admin: 08/29/17 09:54 Dose: 25 mg Sitagliptin Phosphate (Januvia -) 50 mg PO ACBK [facility] Last Admin: 08/29/17 06:37 Dose: 50 mg A/p 66 year old woman with PMhx of CKD stage 3, hx of staghorn calculi with mild hydronephrosis, ITP, Mantle Cell lymphoma, UTI's, NIDDM, Hypertension who presented with weakness, lethargy and to have recurrent worsening thrombocytopneia and developed ARLETTE during the hospitalization with Cr of 1.6. #ARLETTE on CKD likely due to IVIG #ITP #Anemia #Hyponatremia renal function stable at this time no edema, can hold off on diuretics at this time trend BUN/Cr and electrolytes continue thrombocytopneia management per Heme Thank you Dash Padron DO
--- NOTE | 2017-08-29 15:44 | PN ---
Progress Note, Physician Chief Complaint: Ms Painting denies cp, sob, n/v. - Current Medication List Current Medications: Active Medications Albuterol Sulfate (Ventolin Hfa Inhaler -) 2 puff IH Q4H PRN PRN Reason: ASTHMA Allopurinol (Zyloprim -) 150 mg PO DAILY [facility] Last Admin: 08/29/17 09:56 Dose: 150 mg Alprazolam (Xanax -) 0.5 mg PO Q8H PRN PRN Reason: ANXIETY Last Admin: 08/29/17 09:54 Dose: 0.5 mg Amlodipine Besylate (Norvasc -) 5 mg PO DAILY [facility] Last Admin: 08/29/17 09:55 Dose: 5 mg Ascorbic Acid (Vitamin C -) 1,000 mg PO DAILY [facility] Last Admin: 08/29/17 09:55 Dose: 1,000 mg Calcium Carbonate (Calcium Carbonate -) 650 mg PO BID [facility] Last Admin: 08/29/17 09:57 Dose: 650 mg Dexamethasone Sodium Phosphate (Decadron Injection -) 40 mg IVPB DAILY [facility] Last Admin: 08/29/17 09:55 Dose: 40 mg Glipizide (Glucotrol Xl -) 10 mg PO BIDAC [facility] Last Admin: 08/29/17 06:37 Dose: 10 mg Insulin Aspart (Novolog Vial Sliding Scale -) 1 vial SQ ACHS [facility] PRN Reason: Protocol Last Admin: 08/29/17 11:32 Dose: Not Given Morphine Sulfate (Ms Contin -) 60 mg PO TID [facility] Last Admin: 08/29/17 13:28 Dose: 60 mg Morphine Sulfate (Msir -) 15 mg PO Q6H PRN PRN Reason: PAIN LEVEL 4 - 6 Last Admin: 08/29/17 09:56 Dose: 15 mg Non-Formulary Medication (Ascorbic Acid [Vitamin C]) 1,000 mg PO DAILY [facility] Last Admin: 08/29/17 09:57 Dose: 1,000 mg Ondansetron HCl (Zofran Injection) 8 mg IVPB Q8H PRN PRN Reason: NAUSEA Pantoprazole Sodium (Protonix -) 40 mg PO DAILY [facility] Last Admin: 08/29/17 09:55 Dose: 40 mg Polyethylene Glycol (Miralax (For Daily Use) -) 17 gm PO BID [facility] Last Admin: 08/29/17 09:54 Dose: 17 grams Senna (Senna -) 1 tab PO BID [facility] Last Admin: 08/29/17 09:55 Dose: 1 tab Sertraline HCl (Zoloft -) 25 mg PO DAILY [facility] Last Admin: 08/29/17 09:54 Dose: 25 mg Sitagliptin Phosphate (Januvia -) 50 mg PO ACBK [facility] Last Admin: 08/29/17 06:37 Dose: 50 mg - Objective Vital Signs: Vital Signs Temperature 36.5 C 08/29/17 13:59 Pulse Rate 57 L 08/29/17 13:59 Respiratory Rate 20 08/29/17 13:59 Blood Pressure 130/45 08/29/17 13:59 O2 Sat by Pulse Oximetry (%) 97 08/29/17 09:00 Constitutional: Yes: No Distress, Calm, Obese Cardiovascular: Yes: Regular Rate and Rhythm. No: Gallop, Murmur, Rub Respiratory: Yes: Regular, CTA Bilaterally. No: Rales, Rhonchi, Wheezes Gastrointestinal: Yes: Normal Bowel Sounds, Soft. No: Distention, Tenderness Extremities: Yes: WNL Edema: No Labs: CBC, BMP 08/29/17 06:00 08/29/17 06:00 INR, PTT INR 1.03 (0.82-1.09) 08/24/17 06:00 Assessment/Plan (1) Hypoxia Assessment/Plan: -possibly secondary to diaphragmatic hernia -outpatient evaluation for repair -appreciate pulmonary assistance -continue current management -oxygenation much improved currently Code(s): R09.02 - HYPOXEMIA (2) Weakness Assessment/Plan: -resolved Code(s): R53.1 - WEAKNESS (3) Acute ITP Assessment/Plan: -response to IVIg not robust this time -also stopped early secondary to renal function -now with severe thrombocytopenia again -s/p transfusions -case d/w hematology -planning for rituxan Code(s): D69.3 - IMMUNE THROMBOCYTOPENIC PURPURA (4) CKD stage 3 secondary to diabetes Assessment/Plan: -continues to improve Code(s): E11.22 - TYPE 2 DIABETES MELLITUS W DIABETIC CHRONIC KIDNEY DISEASE; N18.3 - CHRONIC KIDNEY DISEASE, STAGE 3 (MODERATE) (5) Chronic pain Assessment/Plan: -continue MS contin -continue prn xanax Code(s): G89.29 - OTHER CHRONIC PAIN Qualifiers: Chronic pain type: chronic pain syndrome Qualified Code(s): G89.4 - Chronic pain syndrome (6) Diabetes mellitus Assessment/Plan: -continue home regimen -FSBS and SSI Code(s): E11.9 - TYPE 2 DIABETES MELLITUS WITHOUT COMPLICATIONS (7) HTN (hypertension) Assessment/Plan: -continue amlodipine -may be contributing to lower extremity edema Code(s): I10 - ESSENTIAL (PRIMARY) HYPERTENSION Qualifiers: (8) Anemia -appreciate GI assistance -s/p scopes -polyp biopsied and angiodysplasia noted
[2017-08-29] MEDS ORDERED: PT OWN MED DRAWER 7, Y5N ONE ×2 (16:20→21:40)
--- NOTE | 2017-08-29 17:07 | PATH ---
Surgical Pathology Report Patient Name: PATTY PORTILLO Med. Rec. #: [id number] /Age/Gender: 1950 (Age: 66) / F Account: [id number] Location: [facility] MED/SURG Taken: 08/25/2017 Received: 08/28/2017 Reported: 08/29/2017 Physicians: Eric Jennings Specimen(s) Received A: BX GASTRIC BODY B: BX POLYP DESCENDING COLON Clinical History Preoperative diagnosis: Occult GI bleeding, anemia, colon cancer screening Postop diagnosis: Candidal esophagitis, hiatal hernia, hemorrhoids, polyp Final Diagnosis A. STOMACH, BODY, BIOPSY: GASTRIC BODY MUCOSA WITH MILD CHRONIC GASTRITIS. IMMUNOHISTOCHEMICAL STAIN FOR H. PYLORI IS NEGATIVE. B. DESCENDING COLON, POLYP, BIOPSY: TUBULAR ADENOMA. Electronically Signed Paula Robles M.D. Gross Description A. Received in formalin, labeled "biopsy gastric body" is a mccrary, irregular portion of soft tissue measuring 0.7 cm. in greatest dimension. The specimen is submitted in toto in one cassette. B. Received in formalin, labeled "biopsy polyp descending colon" is a mccrary, irregular portion of soft tissue measuring 0.1 cm. in greatest dimension. The specimen is submitted in toto in one cassette. 08/28/2017 saudi08/28/2017
--- NOTE | 2017-08-29 17:26 | PATH ---
Surgical Pathology Report Patient Name: PATTY PORTILLO Med. Rec. #: [id number] /Age/Gender: 1950 (Age: 66) / F Account: [id number] Location: [facility] MED/SURG Taken: 08/28/2017 Received: 08/28/2017 Reported: 08/29/2017 Physicians: Blessing Ruiz M.D. Specimen(s) Received PERIPHERAL BLOOD 2 GREEN TOPS Clinical History History of Mantle cell lymphoma in CR refractory thrombocytopenia Final Diagnosis COMPREHENSIVE FLOW CYTOMETRY performed and interpreted at [facility], [place], [place] ([id number]) INTERPRETATION: LOW-LEVEL INVOLVEMENT BY CD5+ B-CELL LYMPHOPROLIFERATIVE DISORDER. SEE COMMENT. Comment: Based on the history of mantle cell lymphoma, the findings are consistent with low-level recurrent disease. Phenotype: A small population of CD20+ B cells detected that coexpress kappa light chain and CD5, and is negative for CD10 and CD23, comprising 27% of lymphocytes and 1% of all analyzed white blood cells. Other lymphocytes include polyclonal B cells, NK cells and immunophenotypically normal CD4+ and CD8+ T cells in normal proportions. Granulocytes are increased but show no detectable aberrant marker expression. Blasts are not detected. Cytomorphology: Smear preparation shows peripheral blood with mature granulocytes, lymphocytes and monocytes seen. See [facility] report for details ([id number]). Electronically Signed Paula Robles M.D. Gross Description Received are 2 green top tubes of peripheral blood which are sent to [facility]. /08/28/2017 saudi/08/28/2017
--- NOTE | 2017-08-29 17:27 | PN ---
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 Trial of Gamma globulin- ARLETTE 4 days of decadron 40 mg with no clinical response Last Vital Signs Temp Pulse Resp BP Pulse Ox 97.7 F 57 L 20 130/45 97 08/29/17 13:59 08/29/17 13:59 08/29/17 13:59 08/29/17 13:59 08/29/17 09:00 HEENT: DENEEN, EOM Intact Oropharynx: No thrush, No mucositis Neck: Supple Nodes: Without adenopathy Breasts: Without masses Cor: RSR, No murmurs, No gallops Lungs: Rales at bases Abd: Soft, Normal bowel sounds, No organomegaly Ext:No significant edema--1+ Skin: No rashes, Integument intact CBC, BMP 08/29/17 06:00 08/29/17 06:00 Current Medications Generic Name Dose Route Start Last Admin Trade Name Freq PRN Reason Stop Dose Admin Albuterol Sulfate 2 puff 08/17/17 15:49 Ventolin Hfa Inhaler - IH Q4H PRN ASTHMA Allopurinol 150 mg 08/18/17 10:00 08/29/17 09:56 Zyloprim - PO 150 mg DAILY [facility] Administration Alprazolam 0.5 mg 08/22/17 12:54 08/29/17 09:54 Xanax - PO 0.5 mg Q8H PRN Administration ANXIETY Amlodipine Besylate 5 mg 08/18/17 10:00 08/29/17 09:55 Norvasc - PO 5 mg DAILY [facility] Administration Ascorbic Acid 1,000 mg 08/18/17 10:00 08/29/17 09:55 Vitamin C - PO 1,000 mg DAILY PR[facility] Administration Calcium Carbonate 650 mg 08/17/17 22:00 08/29/17 09:57 Calcium Carbonate - PO 650 mg BID PRASHANT Administration Dexamethasone Sodium Phosphate 40 mg 08/26/17 10:12 08/29/17 09:55 Decadron Injection - IVPB 40 mg DAILY [facility] Administration Glipizide 10 mg 08/17/17 16:30 08/29/17 16:48 Glucotrol Xl - PO 10 mg BIDAC PRASHANT Administration Insulin Aspart 1 vial 08/18/17 22:00 03/27/18 16:51 Novolog Vial Sliding Scale - SQ 6 units ACHS [facility] Administration Protocol Morphine Sulfate 60 mg 08/17/17 14:00 08/29/17 13:28 Ms Contin - PO 60 mg TID [facility] Administration Morphine Sulfate 15 mg 08/20/17 19:48 08/29/17 16:48 Msir - PO 15 mg Q6H PRN Administration PAIN LEVEL 4 - 6 Non-Formulary Medication 1,000 mg 08/18/17 10:00 08/29/17 09:57 Ascorbic Acid [Vitamin C] PO 1,000 mg DAILY [facility] Administration Ondansetron HCl 8 mg 08/23/17 08:14 Zofran Injection IVPB Q8H PRN NAUSEA Pantoprazole Sodium 40 mg 08/18/17 10:00 08/29/17 09:55 Protonix - PO 40 mg DAILY [facility] Administration Polyethylene Glycol 17 gm 08/27/17 22:00 08/29/17 09:54 Miralax (For Daily Use) - PO 17 grams BID [facility] Administration Senna 1 tab 08/21/17 12:00 08/29/17 09:55 Senna - PO 1 tab BID [facility] Administration Sertraline HCl 25 mg 08/18/17 10:00 08/29/17 09:54 Zoloft - PO 25 mg DAILY [facility] Administration Sitagliptin Phosphate 50 mg 08/18/17 07:00 08/29/17 06:37 Januvia - PO 50 mg ACBK [facility] Administration Impression: Refactory ITP Mantle cell lymphoma DM ARLETTE Back pain Anemia Plan: Rituxin therapy --Side effects including possible infusion discussed.
--- NOTE | 2017-08-29 18:11 | PN ---
GI Progress Note Subjective: GI: Had BM . NO blood. Hb stable despite low platelets. Polyp was an adenoma, NO HP in the stomach. Anticipate Rituxin. - Objective Vital Signs: Vital Signs Temperature 97.7 F 08/29/17 13:59 Pulse Rate 57 L 08/29/17 13:59 Respiratory Rate 20 08/29/17 13:59 Blood Pressure 130/45 08/29/17 13:59 O2 Sat by Pulse Oximetry (%) 97 08/29/17 09:00 Laboratory Tests 08/26/17 08/27/17 08/27/17 06:00 06:00 17:20 Hgb 9.1 L Plt Count 65 L D 26 L* D 17 L* D 08/28/17 08/29/17 06:50 06:00 Hgb 9.5 L 9.8 L Plt Count 17 L* D 16 L* Constitutional: Calm ...Auscultate: Yes: Normoactive Bowel Sounds ...Palpate: Yes: Soft, Other (nontender) Labs: CBC, BMP 08/29/17 06:00 08/29/17 06:00 INR, PTT INR 1.03 (0.82-1.09) 08/24/17 06:00 Problem List - Problems (1) Occult blood in stools Assessment/Plan: Chronic bleeding most likely due to vascular ectasias Code(s): R19.5 - OTHER FECAL ABNORMALITIES (2) Colon polyp Code(s): K63.5 - POLYP OF COLON Qualifiers: Colon polyp type: adenomatous (3) Anemia Code(s): D64.9 - ANEMIA, UNSPECIFIED Qualifiers: Anemia type: iron deficiency Iron deficiency anemia type: chronic blood loss Qualified Code(s): D50.0 - Iron deficiency anemia secondary to blood loss (chronic) (4) Hypoxia Code(s): R09.02 - HYPOXEMIA (5) Weakness Code(s): R53.1 - WEAKNESS (6) Thrombocytopenia Code(s): D69.6 - THROMBOCYTOPENIA, UNSPECIFIED (7) SOB (shortness of breath) Code(s): R06.02 - SHORTNESS OF BREATH
[2017-08-30] MEDS: morphine SULFATE IMMEDIATE RELEASE 30 MG TAB PO PRN (03:25)
[2017-08-30] MEDS: morphine SO4 SUSTAINED ACTING 30 MG TABLET.SA PO SCH ×3 (06:25→22:44)
[2017-08-30] MEDS: sitaGLIPtin PHOSPHATE 50 MG TABLET PO SCH (06:25)
[2017-08-30] MEDS: ALPRAZolam 0.25 MG TABLET PO PRN ×2 (06:26→22:43)
[2017-08-30] MEDS: glipiZIDE-XL 10 MG TAB.ER.24 (FP) PO SCH ×2 (06:26→17:05)
[2017-08-30] MEDS: INSULIN SLIDING SCALE (NOVOLOG) 1 VIAL SQ SCH ×4 (06:26→22:49)
[2017-08-30 07:57] LABS: ALBUMIN 2.8 g/dl (3.4-5.0); ALK PHOS 46 U/L (45-117); ANION GAP 7 (8-16); BILIRUBIN,TOTAL 0.2 mg/dL (0.2-1.0); BLOOD UREA NITROGEN 35 mg/dL (7-18); CALCIUM 7.9 mg/dL (8.5-10.1); CHLORIDE 99 mmol/L (98-107); CO2 28 mmol/L (21-32); CREATININE 1.3 mg/dL (0.55-1.02); GLUCOSE,RANDOM 281 mg/dL (74-106); PHOSPHOROUS 2.9 mg/dL (2.5-4.9); POTASSIUM 3.6 mmol/L (3.5-5.1); SGOT/AST 9 U/L (15-37); SGPT/ALT 18 U/L (12-78); SODIUM 134 mmol/L (136-145); TOT PROT 7.3 g/dl (6.4-8.2)
[2017-08-30 08:01] LABS: HEMOGLOBIN 10.2 GM/dL (10.7-15.3); MCH 24.6 pg (25.7-33.7); MCHC 30.9 g/dl (32.0-36.0); MEAN CELL VOLUME 79.5 fl (80-96); MEAN PLT VOLUME 8.7 fl (7.5-11.1); RBC 4.15 M/mm3 (3.60-5.2); RDW 28.3 % (11.6-15.6); WHITE BLOOD COUNT 8.9 K/mm3 (4.0-10.0)
[2017-08-30 08:17] LABS: PLATELET COUNT 12 K/MM3 (134-434)
[2017-08-30] MEDS ORDERED: DEXAMETHASONE IVPB ONE (10:00)
[2017-08-30] MEDS ORDERED: DIPHENHYDRAMINE IVPB ONE (10:00)
[2017-08-30] MEDS ORDERED: ACETAMINOPHEN 325 MG TABLET (FP) PO ONE (10:00)
[2017-08-30] MEDS ORDERED: SODIUM CHLORIDE IVPB ONE ×2 (10:00→10:30)
[2017-08-30] MEDS: ASCORBIC ACID 500 MG TABLET (FP) PO SCH (10:25)
[2017-08-30] MEDS: SERTRALINE HCL 25 MG TABLET (FP) PO SCH (10:25)
[2017-08-30] MEDS: amLODIPine BESYLATE 5 MG TABLET (FP) PO SCH (10:25)
[2017-08-30] MEDS: CALCIUM CARBONATE 650 MG TABLET PO SCH ×2 (10:25→22:45)
[2017-08-30] MEDS: DEXAMETHASONE SOD PHOSPHATE 10 MG/1 ML VIAL IVPB SCH (10:25)
[2017-08-30] MEDS: PANTOPRAZOLE 40 MG TABLET (FP) PO SCH (10:26)
[2017-08-30] MEDS: POLYETHYLENE GLYCOL 3350 119 GM BTL PO SCH ×2 (10:26→22:47)
[2017-08-30] MEDS: SENNOSIDES 8.6MG TABLET (FP) PO SCH ×2 (10:26→22:44)
[2017-08-30] MEDS: ALLOPURINOL 100 MG TABLET (FP) PO SCH (10:27)
[2017-08-30] MEDS: ASCORBIC ACID 1000 MG PO SCH (10:29)
[2017-08-30] MEDS ORDERED: RITUXIMAB IVPB ONE (10:30)
[2017-08-30 11:21] LABS: ANISOCYTOSIS 3+; PLATELET ESTIMATE DECREASED
--- NOTE | 2017-08-30 11:38 | PN ---
Progress Note, Physician History of Present Illness: Stable dyspnea, ambulated. Plts declining again. - Current Medication List Current Medications: Active Medications Albuterol Sulfate (Ventolin Hfa Inhaler -) 2 puff IH Q4H PRN PRN Reason: ASTHMA Allopurinol (Zyloprim -) 150 mg PO DAILY [facility] Last Admin: 08/30/17 10:27 Dose: 150 mg Alprazolam (Xanax -) 0.5 mg PO Q8H PRN PRN Reason: ANXIETY Last Admin: 08/30/17 06:26 Dose: 0.5 mg Amlodipine Besylate (Norvasc -) 5 mg PO DAILY [facility] Last Admin: 08/30/17 10:25 Dose: 5 mg Ascorbic Acid (Vitamin C -) 1,000 mg PO DAILY [facility] Last Admin: 08/30/17 10:25 Dose: 1,000 mg Calcium Carbonate (Calcium Carbonate -) 650 mg PO BID [facility] Last Admin: 08/30/17 10:25 Dose: 650 mg Dexamethasone Sodium Phosphate (Decadron Injection -) 40 mg IVPB DAILY [facility] Last Admin: 08/30/17 10:25 Dose: 40 mg Glipizide (Glucotrol Xl -) 10 mg PO BIDAC [facility] Last Admin: 08/30/17 06:26 Dose: 10 mg Rituximab 500 mg/ Rituximab (310 mg/ Sodium Chloride) 800 mls @ 49.3 mls/hr IVPB ONCE ONE Stop: 08/31/17 02:43 Insulin Aspart (Novolog Vial Sliding Scale -) 1 vial SQ ACHS [facility] PRN Reason: Protocol Last Admin: 08/30/17 06:26 Dose: 6 units Morphine Sulfate (Ms Contin -) 60 mg PO TID [facility] Last Admin: 08/30/17 06:25 Dose: 60 mg Morphine Sulfate (Msir -) 15 mg PO Q6H PRN PRN Reason: PAIN LEVEL 4 - 6 Last Admin: 08/30/17 03:25 Dose: 15 mg Non-Formulary Medication (Ascorbic Acid [Vitamin C]) 1,000 mg PO DAILY [facility] Last Admin: 08/30/17 10:29 Dose: 1,000 mg Ondansetron HCl (Zofran Injection) 8 mg IVPB Q8H PRN PRN Reason: NAUSEA Pantoprazole Sodium (Protonix -) 40 mg PO DAILY [facility] Last Admin: 08/30/17 10:26 Dose: 40 mg Polyethylene Glycol (Miralax (For Daily Use) -) 17 gm PO BID [facility] Last Admin: 08/30/17 10:26 Dose: 17 grams Senna (Senna -) 1 tab PO BID [facility] Last Admin: 08/30/17 10:26 Dose: 1 tab Sertraline HCl (Zoloft -) 25 mg PO DAILY [facility] Last Admin: 08/30/17 10:25 Dose: 25 mg Sitagliptin Phosphate (Januvia -) 50 mg PO ACBK [facility] Last Admin: 08/30/17 06:25 Dose: 50 mg - Objective Vital Signs: Vital Signs Temperature 97.7 F 08/30/17 05:46 Pulse Rate 57 L 08/30/17 05:46 Respiratory Rate 20 08/30/17 05:46 Blood Pressure 152/62 08/30/17 05:46 O2 Sat by Pulse Oximetry (%) 96 08/29/17 22:16 Constitutional: Yes: No Distress, Calm Neck: Yes: Supple Cardiovascular: Yes: Regular Rate and Rhythm Respiratory: Yes: Regular, Diminished Gastrointestinal: Yes: Normal Bowel Sounds, Soft, Abdomen, Obese Edema: No Labs: CBC, BMP 08/30/17 06:00 08/30/17 06:00 INR, PTT INR 1.03 (0.82-1.09) 08/24/17 06:00 Problem List - Problems (1) Acute ITP Code(s): D69.3 - IMMUNE THROMBOCYTOPENIC PURPURA (2) Anemia Code(s): D64.9 - ANEMIA, UNSPECIFIED Qualifiers: Anemia type: iron deficiency Iron deficiency anemia type: chronic blood loss Qualified Code(s): D50.0 - Iron deficiency anemia secondary to blood loss (chronic) (3) CKD stage 3 secondary to diabetes Code(s): E11.22 - TYPE 2 DIABETES MELLITUS W DIABETIC CHRONIC KIDNEY DISEASE; N18.3 - CHRONIC KIDNEY DISEASE, STAGE 3 (MODERATE) (4) Diabetes mellitus Code(s): E11.9 - TYPE 2 DIABETES MELLITUS WITHOUT COMPLICATIONS Qualifiers: Diabetes mellitus type: type 2 (5) Diaphragmatic hernia Code(s): K44.9 - DIAPHRAGMATIC HERNIA WITHOUT OBSTRUCTION OR GANGRENE Qualifiers: Obstruction and gangrene presence: without obstruction or gangrene Qualified Code(s): K44.9 - Diaphragmatic hernia without obstruction or gangrene (6) HTN (hypertension) Code(s): I10 - ESSENTIAL (PRIMARY) HYPERTENSION Qualifiers: Hypertension type: essential hypertension Qualified Code(s): I10 - Essential (primary) hypertension (7) Mantle cell lymphoma Code(s): C83.10 - MANTLE CELL LYMPHOMA, UNSPECIFIED SITE Assessment/Plan 08/18/2017 Normal biventricular size and fxn, mild LAE, MR, TR 08/29/2014 Normal LV size and fxn without sig valve abnl 1. Recurrent ITP h/o splenectomy, antiphospholipids worse 2. Recurrent dyspnea on exertion after failure of left diaphragmatic hernia repair/mesh 3. HTN 4. NIDDM 5. History of Mantle Cell Lymphoma 6. Acute on CKD 3 referable to IVIG and hydronephrosis resolved 7. Chronic interstitial lung disease 8. 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 Resume Lisinopril 10 qd as renal fxn stable, continue Norvasc 5 qd 2. DVT and GI prophylaxis 3. Starting Rituxan and steroids course with monitor Plt, usual transfusion parameters, IV Venofer 4. Consideration for re-op diaphragmatic hernia repair after recovery of plt counts 5. O2, BD as needed, wrap legs while in bed
--- NOTE | 2017-08-30 12:41 | PN ---
GI Progress Note Subjective: GI NOteL Had normal BM. NO bleeding. Informed Luzma that her polyp was an adenoma. Awaiting decision re: Rituxin as platelets are 12K - Objective Vital Signs: Vital Signs Temperature 97.7 F 08/30/17 05:46 Pulse Rate 57 L 08/30/17 05:46 Respiratory Rate 20 08/30/17 05:46 Blood Pressure 152/62 08/30/17 05:46 O2 Sat by Pulse Oximetry (%) 96 08/29/17 22:16 Laboratory Tests 08/30/17 06:00 Hgb 10.2 L Plt Count 12 L* D Constitutional: Calm ...Auscultate: Yes: Normoactive Bowel Sounds ...Palpate: Yes: Soft, Other (nontender) Labs: CBC, BMP 08/30/17 06:00 08/30/17 06:00 INR, PTT INR 1.03 (0.82-1.09) 08/24/17 06:00 Problem List - Problems (1) Occult blood in stools Code(s): R19.5 - OTHER FECAL ABNORMALITIES (2) Colon polyp Assessment/Plan: No signs of bleeding from the adenomatous polyp site which was endoclipped. Will continue Miralax. Code(s): K63.5 - POLYP OF COLON Qualifiers: Colon polyp type: adenomatous (3) Anemia Code(s): D64.9 - ANEMIA, UNSPECIFIED Qualifiers: Anemia type: iron deficiency Iron deficiency anemia type: chronic blood loss Qualified Code(s): D50.0 - Iron deficiency anemia secondary to blood loss (chronic) (4) Hypoxia Code(s): R09.02 - HYPOXEMIA (5) Weakness Code(s): R53.1 - WEAKNESS (6) Thrombocytopenia Code(s): D69.6 - THROMBOCYTOPENIA, UNSPECIFIED (7) SOB (shortness of breath) Code(s): R06.02 - SHORTNESS OF BREATH
[2017-08-30] MEDS ORDERED: ACETAMINOPHEN 325 MG TABLET (FP) ONE (13:09)
--- NOTE | 2017-08-30 13:19 | PN ---
Progress Note, Physician Chief Complaint: Ms Painting denies cp, sob, n/v. Says she is very anxious today. - Current Medication List Current Medications: Active Medications Albuterol Sulfate (Ventolin Hfa Inhaler -) 2 puff IH Q4H PRN PRN Reason: ASTHMA Allopurinol (Zyloprim -) 150 mg PO DAILY [facility] Last Admin: 08/30/17 10:27 Dose: 150 mg Amlodipine Besylate (Norvasc -) 5 mg PO DAILY [facility] Last Admin: 08/30/17 10:25 Dose: 5 mg Ascorbic Acid (Vitamin C -) 1,000 mg PO DAILY [facility] Last Admin: 08/30/17 10:25 Dose: 1,000 mg Calcium Carbonate (Calcium Carbonate -) 650 mg PO BID [facility] Last Admin: 08/30/17 10:25 Dose: 650 mg Dexamethasone Sodium Phosphate (Decadron Injection -) 40 mg IVPB DAILY [facility] Last Admin: 08/30/17 10:25 Dose: 40 mg Glipizide (Glucotrol Xl -) 10 mg PO BIDAC [facility] Last Admin: 08/30/17 06:26 Dose: 10 mg Rituximab 500 mg/ Rituximab (310 mg/ Sodium Chloride) 800 mls @ 49.3 mls/hr IVPB ONCE ONE Stop: 08/31/17 02:43 Insulin Aspart (Novolog Vial Sliding Scale -) 1 vial SQ ACHS [facility] PRN Reason: Protocol Last Admin: 08/30/17 11:30 Dose: 2 units Lisinopril (Prinivil) 10 mg PO DAILY [facility] Morphine Sulfate (Ms Contin -) 60 mg PO TID [facility] Last Admin: 08/30/17 06:25 Dose: 60 mg Morphine Sulfate (Msir -) 15 mg PO Q6H PRN PRN Reason: PAIN LEVEL 4 - 6 Last Admin: 08/30/17 03:25 Dose: 15 mg Non-Formulary Medication (Ascorbic Acid [Vitamin C]) 1,000 mg PO DAILY [facility] Last Admin: 08/30/17 10:29 Dose: 1,000 mg Ondansetron HCl (Zofran Injection) 8 mg IVPB Q8H PRN PRN Reason: NAUSEA Pantoprazole Sodium (Protonix -) 40 mg PO DAILY [facility] Last Admin: 08/30/17 10:26 Dose: 40 mg Polyethylene Glycol (Miralax (For Daily Use) -) 17 gm PO BID [facility] Last Admin: 08/30/17 10:26 Dose: 17 grams Senna (Senna -) 1 tab PO BID [facility] Last Admin: 08/30/17 10:26 Dose: 1 tab Sertraline HCl (Zoloft -) 25 mg PO DAILY [facility] Last Admin: 08/30/17 10:25 Dose: 25 mg Sitagliptin Phosphate (Januvia -) 50 mg PO ACBK [facility] Last Admin: 08/30/17 06:25 Dose: 50 mg - Objective Vital Signs: Vital Signs Temperature 36.5 C 08/30/17 05:46 Pulse Rate 57 L 08/30/17 05:46 Respiratory Rate 20 08/30/17 05:46 Blood Pressure 152/62 08/30/17 05:46 O2 Sat by Pulse Oximetry (%) 96 08/29/17 22:16 Constitutional: Yes: No Distress, Calm, Obese Cardiovascular: Yes: Regular Rate and Rhythm. No: Gallop, Murmur, Rub Respiratory: Yes: Regular, CTA Bilaterally. No: Rales, Rhonchi, Wheezes Gastrointestinal: Yes: Normal Bowel Sounds, Soft. No: Distention, Tenderness Extremities: Yes: WNL Edema: No Labs: CBC, BMP 08/30/17 06:00 08/30/17 06:00 INR, PTT INR 1.03 (0.82-1.09) 08/24/17 06:00 Assessment/Plan (1) Hypoxia Assessment/Plan: -possibly secondary to diaphragmatic hernia -outpatient evaluation for repair -appreciate pulmonary assistance -continue current management -oxygenation much improved currently Code(s): R09.02 - HYPOXEMIA (2) Weakness Assessment/Plan: -resolved Code(s): R53.1 - WEAKNESS (3) Acute ITP Assessment/Plan: -decreased response to IVIg and solumedrol -to receive rituxan today -monitor for side effects -plan for discharge tomorrow Code(s): D69.3 - IMMUNE THROMBOCYTOPENIC PURPURA (4) CKD stage 3 secondary to diabetes Assessment/Plan: -continues to improve Code(s): E11.22 - TYPE 2 DIABETES MELLITUS W DIABETIC CHRONIC KIDNEY DISEASE; N18.3 - CHRONIC KIDNEY DISEASE, STAGE 3 (MODERATE) (5) Chronic pain Assessment/Plan: -continue MS contin -continue prn xanax -will increase xanax for anxiety Code(s): G89.29 - OTHER CHRONIC PAIN Qualifiers: Chronic pain type: chronic pain syndrome Qualified Code(s): G89.4 - Chronic pain syndrome (6) Diabetes mellitus Assessment/Plan: -continue home regimen -FSBS and SSI Code(s): E11.9 - TYPE 2 DIABETES MELLITUS WITHOUT COMPLICATIONS (7) HTN (hypertension) Assessment/Plan: -continue amlodipine -may be contributing to lower extremity edema Code(s): I10 - ESSENTIAL (PRIMARY) HYPERTENSION Qualifiers: (8) Anemia -appreciate GI assistance -s/p scopes -polyp biopsied and angiodysplasia noted Dispo -plan for discharge tomorrow
--- NOTE | 2017-08-30 14:56 | PN ---
<Kurt Calzada - Last Filed: 08/30/17 14:51> Progress Note, Physician History of Present Illness: Pt in good spirits. She has no complaint. - Current Medication List Current Medications: Active Medications Albuterol Sulfate (Ventolin Hfa Inhaler -) 2 puff IH Q4H PRN PRN Reason: ASTHMA Allopurinol (Zyloprim -) 150 mg PO DAILY [facility] Last Admin: 08/30/17 10:27 Dose: 150 mg Alprazolam (Xanax -) 0.75 mg PO Q8H PRN PRN Reason: ANXIETY Amlodipine Besylate (Norvasc -) 5 mg PO DAILY [facility] Last Admin: 08/30/17 10:25 Dose: 5 mg Ascorbic Acid (Vitamin C -) 1,000 mg PO DAILY [facility] Last Admin: 08/30/17 10:25 Dose: 1,000 mg Calcium Carbonate (Calcium Carbonate -) 650 mg PO BID [facility] Last Admin: 08/30/17 10:25 Dose: 650 mg Dexamethasone Sodium Phosphate (Decadron Injection -) 40 mg IVPB DAILY [facility] Last Admin: 08/30/17 10:25 Dose: 40 mg Glipizide (Glucotrol Xl -) 10 mg PO BIDAC [facility] Last Admin: 08/30/17 06:26 Dose: 10 mg Rituximab 500 mg/ Rituximab (310 mg/ Sodium Chloride) 800 mls @ 49.3 mls/hr IVPB ONCE ONE Stop: 08/31/17 02:43 Last Admin: 08/30/17 14:08 Dose: 49.3 mls/hr Insulin Aspart (Novolog Vial Sliding Scale -) 1 vial SQ ACHS [facility] PRN Reason: Protocol Last Admin: 08/30/17 11:30 Dose: 2 units Lisinopril (Prinivil) 10 mg PO DAILY [facility] Morphine Sulfate (Ms Contin -) 60 mg PO TID [facility] Last Admin: 08/30/17 14:27 Dose: 60 mg Morphine Sulfate (Msir -) 15 mg PO Q6H PRN PRN Reason: PAIN LEVEL 4 - 6 Last Admin: 08/30/17 03:25 Dose: 15 mg Non-Formulary Medication (Ascorbic Acid [Vitamin C]) 1,000 mg PO DAILY [facility] Last Admin: 08/30/17 10:29 Dose: 1,000 mg Ondansetron HCl (Zofran Injection) 8 mg IVPB Q8H PRN PRN Reason: NAUSEA Pantoprazole Sodium (Protonix -) 40 mg PO DAILY [facility] Last Admin: 08/30/17 10:26 Dose: 40 mg Polyethylene Glycol (Miralax (For Daily Use) -) 17 gm PO BID [facility] Last Admin: 08/30/17 10:26 Dose: 17 grams Senna (Senna -) 1 tab PO BID [facility] Last Admin: 08/30/17 10:26 Dose: 1 tab Sertraline HCl (Zoloft -) 25 mg PO DAILY [facility] Last Admin: 08/30/17 10:25 Dose: 25 mg Sitagliptin Phosphate (Januvia -) 50 mg PO ACBK [facility] Last Admin: 08/30/17 06:25 Dose: 50 mg - Objective Vital Signs: Vital Signs Temperature 97.8 F 08/30/17 13:52 Pulse Rate 67 08/30/17 13:52 Respiratory Rate 20 08/30/17 13:52 Blood Pressure 145/67 08/30/17 13:52 O2 Sat by Pulse Oximetry (%) 96 08/29/17 22:16 Constitutional: Yes: Well Nourished, Calm Eyes: Yes: Conjunctiva Clear, PERRL HENT: Yes: Atraumatic, Normocephalic Neck: Yes: Supple, Trachea Midline. No: Lymphadenopathy, Tenderness, Thyromegaly Cardiovascular: Yes: Regular Rate and Rhythm Respiratory: Yes: CTA Bilaterally Gastrointestinal: Yes: Normal Bowel Sounds, Soft. No: Splenomegaly, Tenderness Edema: No Peripheral Pulses WNL: Yes Neurological: Yes: Alert, Oriented Labs: CBC, BMP 08/30/17 06:00 08/30/17 06:00 INR, PTT INR 1.03 (0.82-1.09) 08/24/17 06:00 Impression/Plan Impression/Plan: ASSESSMENT/PLAN 66 yo F w/ h/o mantle cell lymphoma, NIDDM, diverticulitis, anxiety, bladder dysfunction, HTN, and ITP admitted to the hospital for exertional dyspnea and exacerbation of ITP. #Refractory ITP s/p IVIG, plt transfusion #Anemia: stable Plt plummeted today, Given rituxan HGB to maintain > 9 [facility] PGY2 Pager: [phone] Visit type - Emergency Visit Emergency Visit: No - New Patient This patient is new to me today: No - Critical Care Critical Care patient: No - Discharge Referral Referred to [facility] No <Blessing Ruiz - Last Filed: 08/30/17 21:26> Progress Note, Physician - Current Medication List Current Medications: Active Medications Albuterol Sulfate (Ventolin Hfa Inhaler -) 2 puff IH Q4H PRN PRN Reason: ASTHMA Allopurinol (Zyloprim -) 150 mg PO DAILY [facility] Last Admin: 08/30/17 10:27 Dose: 150 mg Alprazolam (Xanax -) 0.75 mg PO Q8H PRN PRN Reason: ANXIETY Amlodipine Besylate (Norvasc -) 5 mg PO DAILY [facility] Last Admin: 08/30/17 10:25 Dose: 5 mg Ascorbic Acid (Vitamin C -) 1,000 mg PO DAILY [facility] Last Admin: 08/30/17 10:25 Dose: 1,000 mg Calcium Carbonate (Calcium Carbonate -) 650 mg PO BID [facility] Last Admin: 08/30/17 10:25 Dose: 650 mg Glipizide (Glucotrol Xl -) 10 mg PO BIDAC [facility] Last Admin: 08/30/17 17:05 Dose: 10 mg Rituximab 500 mg/ Rituximab (310 mg/ Sodium Chloride) 800 mls @ 49.3 mls/hr IVPB ONCE ONE Stop: 08/31/17 02:43 Last Admin: 08/30/17 14:08 Dose: 49.3 mls/hr Sodium Chloride (Normal Saline -) 1,000 mls @ 75 mls/hr IV ASDIR [facility] Insulin Aspart (Novolog Vial Sliding Scale -) 1 vial SQ ACHS [facility] PRN Reason: Protocol Last Admin: 08/30/17 17:04 Dose: 6 units Lisinopril (Prinivil) 10 mg PO DAILY [facility] Morphine Sulfate (Ms Contin -) 60 mg PO TID [facility] Last Admin: 08/30/17 14:27 Dose: 60 mg Morphine Sulfate (Msir -) 15 mg PO Q6H PRN PRN Reason: PAIN LEVEL 4 - 6 Last Admin: 08/30/17 03:25 Dose: 15 mg Non-Formulary Medication (Ascorbic Acid [Vitamin C]) 1,000 mg PO DAILY [facility] Last Admin: 08/30/17 10:29 Dose: 1,000 mg Ondansetron HCl (Zofran Injection) 8 mg IVPB Q8H PRN PRN Reason: NAUSEA Pantoprazole Sodium (Protonix -) 40 mg PO DAILY [facility] Last Admin: 08/30/17 10:26 Dose: 40 mg Polyethylene Glycol (Miralax (For Daily Use) -) 17 gm PO BID [facility] Last Admin: 08/30/17 10:26 Dose: 17 grams Prednisone (Deltasone -) 60 mg PO DAILY [facility] Senna (Senna -) 1 tab PO BID [facility] Last Admin: 08/30/17 10:26 Dose: 1 tab Sertraline HCl (Zoloft -) 25 mg PO DAILY [facility] Last Admin: 08/30/17 10:25 Dose: 25 mg Sitagliptin Phosphate (Januvia -) 50 mg PO ACBK [facility] Last Admin: 08/30/17 06:25 Dose: 50 mg - Objective Vital Signs: Vital Signs Temperature 97.8 F 08/30/17 18:28 Pulse Rate 64 08/30/17 18:28 Respiratory Rate 20 08/30/17 18:28 Blood Pressure 175/67 08/30/17 18:28 O2 Sat by Pulse Oximetry (%) 96 08/30/17 09:00 Labs: CBC, BMP 08/30/17 06:00 08/30/17 06:00 INR, PTT INR 1.03 (0.82-1.09) 08/24/17 06:00
--- NOTE | 2017-08-30 16:03 | PATH ---
Cytology Non-Gynecological Report Patient Name: PATTY PORTILLO Med. Rec. #: [id number] /Age/Gender: 1950 (Age: 66) / F Account: [id number] Location: [facility] MED/SURG Taken: 08/25/2017 Received: 08/28/2017 Reported: 08/30/2017 Physicians: Eric Jennings Specimen(s) Received MID ESOPHAGEAL BRUSH Clinical History Plaque mid esophagus, Candidal esophagitis Final Diagnosis MID ESOPHAGEAL BRUSHING FOR CYTOLOGY: SATISFACTORY FOR EVALUATION. NO MALIGNANT CELLS IDENTIFIED. NUMEROUS SQUAMOUS CELLS IN A BACKGROUND OF ACUTE INFLAMMATION, REACTIVE CHANGES, AND FUNGAL FORMS MORPHOLOGICALLY CONSISTENT WITH GAEL SPECIES. Comment: PAS fungal stain highlights fungal forms. Overall cytologic findings are consistent with clinical impression of candidal esophagitis. Electronically Signed Paula Robles M.D. Gross Description Received is one direct smear and brush in 95% alcohol. An additional slide prepared and both slides were Pap stained. A cellblock is prepared.
--- NOTE | 2017-08-30 21:19 | PN ---
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 Trial of Gamma globulin- ARLETTE 4 days of decadron 40 mg with no clinical response s/p Rituxan today, no issues O/E HEENT: DENEEN, EOM Intact Oropharynx: No thrush, No mucositis Neck: Supple Nodes: Without adenopathy Breasts: Without masses Cor: RSR, No murmurs, No gallops Lungs: Rales at bases Abd: Soft, Normal bowel sounds, No organomegaly Ext:No significant edema--1+ Skin: No rashes, Integument intact Temp Pulse Resp BP Pulse Ox 97.8 F 64 20 175/67 96 08/30/17 18:28 08/30/17 18:28 08/30/17 18:28 08/30/17 18:28 08/30/17 09:00 CBC, BMP 08/30/17 06:00 08/30/17 06:00 Current Medications Generic Name Dose Route Start Last Admin Trade Name Freq PRN Reason Stop Dose Admin Albuterol Sulfate 2 puff 08/17/17 15:49 Ventolin Hfa Inhaler - IH Q4H PRN ASTHMA Allopurinol 150 mg 08/18/17 10:00 08/30/17 10:27 Zyloprim - PO 150 mg DAILY [facility] Administration Alprazolam 0.75 mg 08/30/17 14:27 Xanax - PO Q8H PRN ANXIETY Amlodipine Besylate 5 mg 08/18/17 10:00 08/30/17 10:25 Norvasc - PO 5 mg DAILY [facility] Administration Ascorbic Acid 1,000 mg 08/18/17 10:00 08/30/17 10:25 Vitamin C - PO 1,000 mg DAILY [facility] Administration Calcium Carbonate 650 mg 08/17/17 22:00 08/30/17 10:25 Calcium Carbonate - PO 650 mg BID [facility] Administration Glipizide 10 mg 08/17/17 16:30 08/30/17 17:05 Glucotrol Xl - PO 10 mg BIDAC [facility] Administration Rituximab 500 mg/ Rituximab 800 mls @ 49.3 mls/hr 08/30/17 10:30 08/30/17 14: 08 310 mg/ Sodium Chloride IVPB 08/31/17 02:43 49.3 mls/hr ONCE ONE Administration Sodium Chloride 1,000 mls @ 75 mls/hr 08/30/17 19:00 Normal Saline - IV ASDIR [facility] Insulin Aspart 1 vial 08/18/17 22:00 08/30/17 17:04 Novolog Vial Sliding Scale - SQ 6 units ACHS [facility] Administration Protocol Lisinopril 10 mg 08/31/17 10:00 Prinivil PO DAILY [facility] Morphine Sulfate 60 mg 08/17/17 14:00 08/30/17 14:27 Ms Contin - PO 60 mg TID [facility] Administration Morphine Sulfate 15 mg 08/20/17 19:48 08/30/17 03:25 Msir - PO 15 mg Q6H PRN Administration PAIN LEVEL 4 - 6 Non-Formulary Medication 1,000 mg 08/18/17 10:00 08/30/17 10:29 Ascorbic Acid [Vitamin C] PO 1,000 mg DAILY [facility] Administration Ondansetron HCl 8 mg 08/23/17 08:14 Zofran Injection IVPB Q8H PRN NAUSEA Pantoprazole Sodium 40 mg 08/18/17 10:00 08/30/17 10:26 Protonix - PO 40 mg DAILY [facility] Administration Polyethylene Glycol 17 gm 08/27/17 22:00 08/30/17 10:26 Miralax (For Daily Use) - PO 17 grams BID [facility] Administration Prednisone 60 mg 08/31/17 10:00 Deltasone - PO DAILY [facility] Senna 1 tab 08/21/17 12:00 08/30/17 10:26 Senna - PO 1 tab BID [facility] Administration Sertraline HCl 25 mg 08/18/17 10:00 08/30/17 10:25 Zoloft - PO 25 mg DAILY [facility] Administration Sitagliptin Phosphate 50 mg 08/18/17 07:00 08/30/17 06:25 Januvia - PO 50 mg ACBK [facility] Administration Refactory ITP Mantle cell lymphoma DM ARLETTE Back pain Anemia Plan: Rituxin therapy , tolerated well change steroids to 60mg daily PO ( to be discharged on PO Prednisone) gentle hydration will follow in the am will need chemo next week.
[2017-08-30] MEDS ORDERED: INSULIN (NOVOLOG) ASPART 100 UNITS/ML 10ML VIAL ONE (22:00)
--- NOTE | 2017-08-30 22:43 | PN ---
Progress Note (short form) - Note Progress Note: Peripheral blood flow : consistent with recurrence of Mantle cell lymphoma ( "Low-Level")
[2017-08-30] MEDS: SODIUM CHLORIDE 1,000 ML IV SCH (22:48)
[2017-08-31] MEDS: sitaGLIPtin PHOSPHATE 50 MG TABLET PO SCH (06:28)
[2017-08-31] MEDS: glipiZIDE-XL 10 MG TAB.ER.24 (FP) PO SCH ×2 (06:28→17:14)
[2017-08-31] MEDS: morphine SO4 SUSTAINED ACTING 30 MG TABLET.SA PO SCH ×2 (06:29→14:22)
[2017-08-31] MEDS: INSULIN SLIDING SCALE (NOVOLOG) 1 VIAL SQ SCH ×3 (06:30→17:13)
[2017-08-31] MEDS ORDERED: LISINOPRIL 10 MG TABLET (FP) PO SCH (10:00)
[2017-08-31] MEDS ORDERED: predniSONE 20 MG TABLET (UD) PO SCH (10:00)
[2017-08-31] MEDS: POLYETHYLENE GLYCOL 3350 119 GM BTL PO SCH (10:00)
[2017-08-31] MEDS: ALLOPURINOL 100 MG TABLET (FP) PO SCH (10:17)
[2017-08-31] MEDS: ASCORBIC ACID 500 MG TABLET (FP) PO SCH (10:18)
[2017-08-31] MEDS: amLODIPine BESYLATE 5 MG TABLET (FP) PO SCH (10:18)
[2017-08-31] MEDS: SERTRALINE HCL 25 MG TABLET (FP) PO SCH (10:18)
[2017-08-31] MEDS: PANTOPRAZOLE 40 MG TABLET (FP) PO SCH (10:18)
[2017-08-31] MEDS: CALCIUM CARBONATE 650 MG TABLET PO SCH (10:19)
[2017-08-31] MEDS: SENNOSIDES 8.6MG TABLET (FP) PO SCH (10:19)
[2017-08-31] MEDS: morphine SULFATE IMMEDIATE RELEASE 30 MG TAB PO PRN ×2 (10:24→20:15)
[2017-08-31] MEDS: ALPRAZolam 0.25 MG TABLET PO PRN (10:24)
[2017-08-31] MEDS: SODIUM CHLORIDE 1,000 ML IV SCH (10:26)
[2017-08-31] MEDS: ASCORBIC ACID 1000 MG PO SCH (10:47)
--- NOTE | 2017-08-31 11:23 | DS ---
Physical Examination Vital Signs: Vital Signs Temperature 36.7 C 08/31/17 09:31 Pulse Rate 64 08/31/17 09:31 Respiratory Rate 18 08/31/17 09:31 Blood Pressure 144/86 08/31/17 09:31 O2 Sat by Pulse Oximetry (%) 98 08/30/17 21:00 Constitutional: Yes: No Distress, Calm, Obese Cardiovascular: Yes: Regular Rate and Rhythm. No: Gallop, Murmur, Rub Respiratory: Yes: Regular, CTA Bilaterally. No: Rales, Rhonchi, Wheezes Gastrointestinal: Yes: Normal Bowel Sounds, Soft. No: Distention, Tenderness Extremities: Yes: WNL Edema: No Labs: CBC, BMP 08/30/17 06:00 08/30/17 06:00 Discharge Summary Reason For Visit: ANEMIA; THROMBOCYTOPENIA; SOB Current Active Problems Calculus of kidney (Acute) Colon polyp (Acute) Hypoxia (Acute) Occult blood in stools (Acute) SOB (shortness of breath) (Acute) Thrombocytopenia (Acute) Weakness (Acute) Hospital Course: (1) Hypoxia Code(s): R09.02 - HYPOXEMIA (2) Weakness Code(s): R53.1 - WEAKNESS (3) Acute ITP Code(s): D69.3 - IMMUNE THROMBOCYTOPENIC PURPURA (4) CKD stage 3 secondary to diabetes Code(s): E11.22 - TYPE 2 DIABETES MELLITUS W DIABETIC CHRONIC KIDNEY DISEASE; N18.3 - CHRONIC KIDNEY DISEASE, STAGE 3 (MODERATE) (5) Chronic pain Code(s): G89.29 - OTHER CHRONIC PAIN Qualifiers: Chronic pain type: chronic pain syndrome Qualified Code(s): G89.4 - Chronic pain syndrome (6) Diabetes mellitus Code(s): E11.9 - TYPE 2 DIABETES MELLITUS WITHOUT COMPLICATIONS (7) HTN (hypertension) Code(s): I10 - ESSENTIAL (PRIMARY) HYPERTENSION Qualifiers: (8) Anemia Ms Painting is a very pleasant 66 year old female who came in with weakness and hypoxia and found to have an ITP exacerbation. She was admitted to the hospital and started on IVIg. Unfortunately she could only tolerate four rounds secondary to ARLETTE. Nephrology was consulted, once IVIg stopped her renal function improved. She was given IV steroids and transfusion, she was also given rituxan and this will be continued as an outpatient. She was noted to hae iron deficiency anemia and given iron infusion. GI was consulted and she underwent endoscopy and colonoscopy. Colonoscopy showing angiodysplasia. Currently she is stable and is safe for discharge home with close follow up. 33 minutes spent in preparation of this discharge Condition: Stable - Instructions Diet, Activity, Other Instructions: resume previous diet and activity Referrals: Subhash Mcfarlane MD [Staff Physician] - Rafael Ty MD [Staff Physician] - Masoud Chapa MD [Staff Physician] - Dash Padron MD [Staff Physician] - Disposition: HOME - Home Medications Comprehensive Discharge Medication List: Ambulatory Orders Sertraline HCl [Zoloft -] 25 mg PO DAILY 08/28/14 Alprazolam [Xanax] 0.5 mg PO Q8H PRN #0 tablet 09/10/14 Pantoprazole Sodium [Protonix -] 40 mg PO DAILY #0 tablet.ec 09/10/14 Allopurinol [Zyloprim -] 150 mg PO DAILY #60 tablet 04/07/16 Albuterol Sulfate Inhaler - [Ventolin HFA Inhaler -] 1 - 2 inh PO PRN 08/09/16 Amlodipine Besylate [Norvasc -] 5 mg PO DAILY #0 tablet 10/29/16 Docusate Sodium [Colace -] 100 mg PO BID #60 tab-cap 10/29/16 Sitagliptin Phosphate [Januvia] 50 mg PO DAILY 03/18/17 Glipizide Xl [Glucotrol Xl -] 10 mg PO BIDAC tab.er.24 05/23/17 Acetaminophen [Tylenol .Regular Strength -] 650 mg PO PRN 05/26/17 Ascorbic Acid [Vitamin C] 1,000 mg PO DAILY 08/17/17 Ferrous Sulfate 325 mg PO DAILY 08/17/17 Calcium Carbonate - 650 mg PO BID #60 tablet 08/31/17 Lisinopril [Prinivil] 10 mg PO DAILY #30 tablet 08/31/17 Morphine *Sr* [MS Contin -] 60 mg PO TID #60 tab.sa MDD 180mg 08/31/17 Morphine Sulfate 15 mg PO QID PRN #30 tablet MDD 60mg 08/31/17 predniSONE [Deltasone -] 60 mg PO DAILY #30 tablet 08/31/17
[2017-08-31 11:55] LABS: BASO % 0.2 % (0-2.0); HEMATOCRIT 34.5 % (32.4-45.2); HEMOGLOBIN 10.5 GM/dL (10.7-15.3); LYMPH % 8.8 % (8-40); MCH 24.6 pg (25.7-33.7); MCHC 30.5 g/dl (32.0-36.0); MEAN CELL VOLUME 80.6 fl (80-96); MEAN PLT VOLUME 10.8 fl (7.5-11.1); MONO % 13.7 % (3.8-10.2); NEUT % 77.3 % (42.8-82.8); RBC 4.28 M/mm3 (3.60-5.2); RDW 27.7 % (11.6-15.6); WHITE BLOOD COUNT 11.3 K/mm3 (4.0-10.0)
--- NOTE | 2017-08-31 11:55 | PN ---
Progress Note, Physician History of Present Illness: Stable dyspnea, ambulated. Tolerated Rituxan. - Current Medication List Current Medications: Active Medications Albuterol Sulfate (Ventolin Hfa Inhaler -) 2 puff IH Q4H PRN PRN Reason: ASTHMA Allopurinol (Zyloprim -) 150 mg PO DAILY [facility] Last Admin: 08/31/17 10:17 Dose: 150 mg Alprazolam (Xanax -) 0.75 mg PO Q8H PRN PRN Reason: ANXIETY Last Admin: 08/31/17 10:24 Dose: 0.75 mg Amlodipine Besylate (Norvasc -) 5 mg PO DAILY [facility] Last Admin: 08/31/17 10:18 Dose: 5 mg Ascorbic Acid (Vitamin C -) 1,000 mg PO DAILY [facility] Last Admin: 08/31/17 10:18 Dose: 1,000 mg Calcium Carbonate (Calcium Carbonate -) 650 mg PO BID [facility] Last Admin: 08/31/17 10:19 Dose: 650 mg Glipizide (Glucotrol Xl -) 10 mg PO BIDAC [facility] Last Admin: 08/31/17 06:28 Dose: 10 mg Sodium Chloride (Normal Saline -) 1,000 mls @ 75 mls/hr IV ASDIR [facility] Last Admin: 08/31/17 10:26 Dose: 75 mls/hr Insulin Aspart (Novolog Vial Sliding Scale -) 1 vial SQ ACHS [facility] PRN Reason: Protocol Last Admin: 08/31/17 11:33 Dose: 2 units Lisinopril (Prinivil) 10 mg PO DAILY [facility] Last Admin: 08/31/17 10:18 Dose: 10 mg Morphine Sulfate (Ms Contin -) 60 mg PO TID [facility] Last Admin: 08/31/17 06:29 Dose: 60 mg Morphine Sulfate (Msir -) 15 mg PO Q6H PRN PRN Reason: PAIN LEVEL 4 - 6 Last Admin: 08/31/17 10:24 Dose: 15 mg Non-Formulary Medication (Ascorbic Acid [Vitamin C]) 1,000 mg PO DAILY [facility] Last Admin: 08/31/17 10:47 Dose: Not Given Ondansetron HCl (Zofran Injection) 8 mg IVPB Q8H PRN PRN Reason: NAUSEA Pantoprazole Sodium (Protonix -) 40 mg PO DAILY [facility] Last Admin: 03/29/18 10:18 Dose: 40 mg Polyethylene Glycol (Miralax (For Daily Use) -) 17 gm PO BID [facility] Last Admin: 08/31/17 10:00 Dose: 17 grams Prednisone (Deltasone -) 60 mg PO DAILY [facility] Last Admin: 08/31/17 10:17 Dose: 60 mg Senna (Senna -) 1 tab PO BID [facility] Last Admin: 08/31/17 10:19 Dose: 1 tab Sertraline HCl (Zoloft -) 25 mg PO DAILY [facility] Last Admin: 08/31/17 10:18 Dose: 25 mg Sitagliptin Phosphate (Januvia -) 50 mg PO ACBK [facility] Last Admin: 08/31/17 06:28 Dose: 50 mg - Objective Vital Signs: Vital Signs Temperature 98.1 F 08/31/17 09:31 Pulse Rate 64 08/31/17 09:31 Respiratory Rate 18 08/31/17 09:31 Blood Pressure 144/86 08/31/17 09:31 O2 Sat by Pulse Oximetry (%) 98 08/30/17 21:00 Constitutional: Yes: No Distress, Calm Neck: Yes: Supple Cardiovascular: Yes: Regular Rate and Rhythm Respiratory: Yes: Regular, Diminished Gastrointestinal: Yes: Normal Bowel Sounds, Soft, Abdomen, Obese Edema: No Labs: INR, PTT INR 1.03 (0.82-1.09) 08/24/17 06:00 Problem List - Problems (1) Acute ITP Code(s): D69.3 - IMMUNE THROMBOCYTOPENIC PURPURA (2) Anemia Code(s): D64.9 - ANEMIA, UNSPECIFIED Qualifiers: Anemia type: iron deficiency Iron deficiency anemia type: chronic blood loss Qualified Code(s): D50.0 - Iron deficiency anemia secondary to blood loss (chronic) (3) CKD stage 3 secondary to diabetes Code(s): E11.22 - TYPE 2 DIABETES MELLITUS W DIABETIC CHRONIC KIDNEY DISEASE; N18.3 - CHRONIC KIDNEY DISEASE, STAGE 3 (MODERATE) (4) Diabetes mellitus Code(s): E11.9 - TYPE 2 DIABETES MELLITUS WITHOUT COMPLICATIONS Qualifiers: Diabetes mellitus type: type 2 (5) Diaphragmatic hernia Code(s): K44.9 - DIAPHRAGMATIC HERNIA WITHOUT OBSTRUCTION OR GANGRENE Qualifiers: Obstruction and gangrene presence: without obstruction or gangrene Qualified Code(s): K44.9 - Diaphragmatic hernia without obstruction or gangrene (6) HTN (hypertension) Code(s): I10 - ESSENTIAL (PRIMARY) HYPERTENSION Qualifiers: Hypertension type: essential hypertension Qualified Code(s): I10 - Essential (primary) hypertension (7) Mantle cell lymphoma Code(s): C83.10 - MANTLE CELL LYMPHOMA, UNSPECIFIED SITE Assessment/Plan 08/18/2017 Normal biventricular size and fxn, mild LAE, MR, TR 08/29/2014 Normal LV size and fxn without sig valve abnl 1. Refractory ITP h/o splenectomy 2. Recurrent dyspnea on exertion after failure of left diaphragmatic hernia repair/mesh 3. HTN 4. NIDDM 5. Mantle Cell Lymphoma 6. Acute on CKD 3 referable to IVIG and hydronephrosis resolved 7. Chronic interstitial lung disease 8. 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 Continue Lisinopril 10 qd and Norvasc 5 qd 2. DVT and GI prophylaxis 3. Tolerated Rituxan and steroids course with monitor Plt, usual transfusion parameters 4. Consideration for re-op diaphragmatic hernia repair after recovery of plt counts 5. O2, BD as needed, wrap legs while in bed
[2017-08-31 12:07] LABS: PLATELET COUNT 31 K/MM3 (134-434)
--- NOTE | 2017-08-31 12:15 | PN ---
<Kurt Calzada - Last Filed: 08/31/17 12:10> Progress Note, Physician History of Present Illness: Uneventful after starting rituxan. She has no complaint. - Current Medication List Current Medications: Active Medications Albuterol Sulfate (Ventolin Hfa Inhaler -) 2 puff IH Q4H PRN PRN Reason: ASTHMA Allopurinol (Zyloprim -) 150 mg PO DAILY [facility] Last Admin: 08/31/17 10:17 Dose: 150 mg Alprazolam (Xanax -) 0.75 mg PO Q8H PRN PRN Reason: ANXIETY Last Admin: 08/31/17 10:24 Dose: 0.75 mg Amlodipine Besylate (Norvasc -) 5 mg PO DAILY [facility] Last Admin: 08/31/17 10:18 Dose: 5 mg Ascorbic Acid (Vitamin C -) 1,000 mg PO DAILY [facility] Last Admin: 08/31/17 10:18 Dose: 1,000 mg Calcium Carbonate (Calcium Carbonate -) 650 mg PO BID [facility] Last Admin: 08/31/17 10:19 Dose: 650 mg Glipizide (Glucotrol Xl -) 10 mg PO BIDAC [facility] Last Admin: 08/31/17 06:28 Dose: 10 mg Sodium Chloride (Normal Saline -) 1,000 mls @ 75 mls/hr IV ASDIR [facility] Last Admin: 08/31/17 10:26 Dose: 75 mls/hr Insulin Aspart (Novolog Vial Sliding Scale -) 1 vial SQ ACHS [facility] PRN Reason: Protocol Last Admin: 08/31/17 11:33 Dose: 2 units Lisinopril (Prinivil) 10 mg PO DAILY [facility] Last Admin: 08/31/17 10:18 Dose: 10 mg Morphine Sulfate (Ms Contin -) 60 mg PO TID [facility] Last Admin: 08/31/17 06:29 Dose: 60 mg Morphine Sulfate (Msir -) 15 mg PO Q6H PRN PRN Reason: PAIN LEVEL 4 - 6 Last Admin: 08/31/17 10:24 Dose: 15 mg Non-Formulary Medication (Ascorbic Acid [Vitamin C]) 1,000 mg PO DAILY [facility] Last Admin: 08/31/17 10:47 Dose: Not Given Ondansetron HCl (Zofran Injection) 8 mg IVPB Q8H PRN PRN Reason: NAUSEA Pantoprazole Sodium (Protonix -) 40 mg PO DAILY [facility] Last Admin: 08/31/17 10:18 Dose: 40 mg Polyethylene Glycol (Miralax (For Daily Use) -) 17 gm PO BID [facility] Last Admin: 08/31/17 10:00 Dose: 17 grams Prednisone (Deltasone -) 60 mg PO DAILY [facility] Last Admin: 08/31/17 10:17 Dose: 60 mg Senna (Senna -) 1 tab PO BID [facility] Last Admin: 08/31/17 10:19 Dose: 1 tab Sertraline HCl (Zoloft -) 25 mg PO DAILY [facility] Last Admin: 08/31/17 10:18 Dose: 25 mg Sitagliptin Phosphate (Januvia -) 50 mg PO ACBK [facility] Last Admin: 08/31/17 06:28 Dose: 50 mg - Objective Vital Signs: Vital Signs Temperature 98.1 F 08/31/17 09:31 Pulse Rate 64 08/31/17 09:31 Respiratory Rate 18 08/31/17 09:31 Blood Pressure 144/86 08/31/17 09:31 O2 Sat by Pulse Oximetry (%) 98 08/30/17 21:00 Constitutional: Yes: No Distress, Calm Eyes: Yes: Conjunctiva Clear, PERRL HENT: Yes: Atraumatic, Normocephalic Cardiovascular: Yes: Regular Rate and Rhythm Respiratory: Yes: CTA Bilaterally Gastrointestinal: Yes: Normal Bowel Sounds, Soft Edema: No Peripheral Pulses WNL: Yes Neurological: Yes: Alert, Oriented Labs: CBC, BMP 08/31/17 11:15 INR, PTT INR 1.03 (0.82-1.09) 08/24/17 06:00 Impression/Plan Impression/Plan: ASSESSMENT/PLAN 66 yo F w/ h/o mantle cell lymphoma, NIDDM, diverticulitis, anxiety, bladder dysfunction, HTN, and ITP admitted to the hospital for exertional dyspnea and exacerbation of ITP. #Refractory ITP s/p IVIG, plt transfusion #Anemia: stable Started rituxan without any complication. Cont. rituxan and blood work as outpatient. Kurt Calzada Medicine PGY2 Pager: [phone] Visit type - Emergency Visit Emergency Visit: No - New Patient This patient is new to me today: No - Critical Care Critical Care patient: No - Discharge Referral Referred to [facility] Med P.C.: No <Blessing Ruiz - Last Filed: 08/31/17 13:59> Progress Note, Physician - Current Medication List Current Medications: Active Medications Albuterol Sulfate (Ventolin Hfa Inhaler -) 2 puff IH Q4H PRN PRN Reason: ASTHMA Allopurinol (Zyloprim -) 150 mg PO DAILY [facility] Last Admin: 08/31/17 10:17 Dose: 150 mg Alprazolam (Xanax -) 0.75 mg PO Q8H PRN PRN Reason: ANXIETY Last Admin: 08/31/17 10:24 Dose: 0.75 mg Amlodipine Besylate (Norvasc -) 5 mg PO DAILY [facility] Last Admin: 08/31/17 10:18 Dose: 5 mg Ascorbic Acid (Vitamin C -) 1,000 mg PO DAILY [facility] Last Admin: 08/31/17 10:18 Dose: 1,000 mg Calcium Carbonate (Calcium Carbonate -) 650 mg PO BID [facility] Last Admin: 08/31/17 10:19 Dose: 650 mg Glipizide (Glucotrol Xl -) 10 mg PO BIDAC [facility] Last Admin: 08/31/17 06:28 Dose: 10 mg Sodium Chloride (Normal Saline -) 1,000 mls @ 75 mls/hr IV ASDIR [facility] Last Admin: 08/31/17 10:26 Dose: 75 mls/hr Insulin Aspart (Novolog Vial Sliding Scale -) 1 vial SQ ACHS [facility] PRN Reason: Protocol Last Admin: 08/31/17 11:33 Dose: 2 units Lisinopril (Prinivil) 10 mg PO DAILY [facility] Last Admin: 08/31/17 10:18 Dose: 10 mg Morphine Sulfate (Ms Contin -) 60 mg PO TID [facility] Last Admin: 08/31/17 06:29 Dose: 60 mg Morphine Sulfate (Msir -) 15 mg PO Q6H PRN PRN Reason: PAIN LEVEL 4 - 6 Last Admin: 08/31/17 10:24 Dose: 15 mg Non-Formulary Medication (Ascorbic Acid [Vitamin C]) 1,000 mg PO DAILY [facility] Last Admin: 08/31/17 10:47 Dose: Not Given Ondansetron HCl (Zofran Injection) 8 mg IVPB Q8H PRN PRN Reason: NAUSEA Pantoprazole Sodium (Protonix -) 40 mg PO DAILY [facility] Last Admin: 08/31/17 10:18 Dose: 40 mg Polyethylene Glycol (Miralax (For Daily Use) -) 17 gm PO BID [facility] Last Admin: 08/31/17 10:00 Dose: 17 grams Prednisone (Deltasone -) 60 mg PO DAILY [facility] Last Admin: 08/31/17 10:17 Dose: 60 mg Senna (Senna -) 1 tab PO BID [facility] Last Admin: 08/31/17 10:19 Dose: 1 tab Sertraline HCl (Zoloft -) 25 mg PO DAILY [facility] Last Admin: 08/31/17 10:18 Dose: 25 mg Sitagliptin Phosphate (Januvia -) 50 mg PO ACBK [facility] Last Admin: 08/31/17 06:28 Dose: 50 mg - Objective Vital Signs: Vital Signs Temperature 97.8 F 08/31/17 13:45 Pulse Rate 63 08/31/17 13:45 Respiratory Rate 18 08/31/17 13:45 Blood Pressure 151/66 08/31/17 13:45 O2 Sat by Pulse Oximetry (%) 98 08/30/17 21:00 Labs: CBC, BMP 08/31/17 11:15 08/31/17 11:15 INR, PTT INR 1.03 (0.82-1.09) 08/24/17 06:00
[2017-08-31 12:50] LABS: ANION GAP 9 (8-16); BLOOD UREA NITROGEN 39 mg/dL (7-18); CALCIUM 8.2 mg/dL (8.5-10.1); CHLORIDE 99 mmol/L (98-107); CO2 27 mmol/L (21-32); GLUCOSE,RANDOM 212 mg/dL (74-106); POTASSIUM 4.2 mmol/L (3.5-5.1); SODIUM 135 mmol/L (136-145)
[2017-08-31 12:54] LABS: ALK PHOS 48 U/L (45-117); BILIRUBIN,TOTAL 0.3 mg/dL (0.2-1.0); CREATININE 1.5 mg/dL (0.55-1.02); SGOT/AST 11 U/L (15-37); SGPT/ALT 17 U/L (12-78); TOT PROT 7.4 g/dl (6.4-8.2)
--- NOTE | 2017-08-31 14:00 | PN ---
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 Trial of Gamma globulin- ARLETTE 4 days of decadron 40 mg with no clinical response s/p Rituxan on 08/30, no issues O/E HEENT: DENEEN, EOM Intact Oropharynx: No thrush, No mucositis Neck: Supple Nodes: Without adenopathy Breasts: Without masses Cor: RSR, No murmurs, No gallops Lungs: Rales at bases Abd: Soft, Normal bowel sounds, No organomegaly Ext:No significant edema--1+ Skin: No rashes, Integument intact Temp Pulse Resp BP Pulse Ox 97.8 F 64 20 175/67 96 08/30/17 18:28 08/30/17 18:28 08/30/17 18:28 08/30/17 18:28 08/30/17 09:00 CBC, BMP 08/30/17 06:00 08/30/17 06:00 Current Medications Generic Name Dose Route Start Last Admin Trade Name Freq PRN Reason Stop Dose Admin Albuterol Sulfate 2 puff 08/17/17 15:49 Ventolin Hfa Inhaler - IH Q4H PRN ASTHMA Allopurinol 150 mg 08/18/17 10:00 08/30/17 10:27 Zyloprim - PO 150 mg DAILY [facility] Administration Alprazolam 0.75 mg 08/30/17 14:27 Xanax - PO Q8H PRN ANXIETY Amlodipine Besylate 5 mg 08/18/17 10:00 08/30/17 10:25 Norvasc - PO 5 mg DAILY [facility] Administration Ascorbic Acid 1,000 mg 08/18/17 10:00 08/30/17 10:25 Vitamin C - PO 1,000 mg DAILY [facility] Administration Calcium Carbonate 650 mg 08/17/17 22:00 08/30/17 10:25 Calcium Carbonate - PO 650 mg BID [facility] Administration Glipizide 10 mg 08/17/17 16:30 08/30/17 17:05 Glucotrol Xl - PO 10 mg BIDAC [facility] Administration Rituximab 500 mg/ Rituximab 800 mls @ 49.3 mls/hr 08/30/17 10:30 08/30/17 14: 08 310 mg/ Sodium Chloride IVPB 08/31/17 02:43 49.3 mls/hr ONCE ONE Administration Sodium Chloride 1,000 mls @ 75 mls/hr 08/30/17 19:00 Normal Saline - IV ASDIR [facility] Insulin Aspart 1 vial 08/18/17 22:00 08/30/17 17:04 Novolog Vial Sliding Scale - SQ 6 units ACHS [facility] Administration Protocol Lisinopril 10 mg 08/31/17 10:00 Prinivil PO DAILY [facility] Morphine Sulfate 60 mg 08/17/17 14:00 08/30/17 14:27 Ms Contin - PO 60 mg TID [facility] Administration Morphine Sulfate 15 mg 08/20/17 19:48 08/30/17 03:25 Msir - PO 15 mg Q6H PRN Administration PAIN LEVEL 4 - 6 Non-Formulary Medication 1,000 mg 08/18/17 10:00 08/30/17 10:29 Ascorbic Acid [Vitamin C] PO 1,000 mg DAILY [facility] Administration Ondansetron HCl 8 mg 08/23/17 08:14 Zofran Injection IVPB Q8H PRN NAUSEA Pantoprazole Sodium 40 mg 08/18/17 10:00 08/30/17 10:26 Protonix - PO 40 mg DAILY [facility] Administration Polyethylene Glycol 17 gm 08/27/17 22:00 08/30/17 10:26 Miralax (For Daily Use) - PO 17 grams BID [facility] Administration Prednisone 60 mg 08/31/17 10:00 Deltasone - PO DAILY [facility] Senna 1 tab 08/21/17 12:00 08/30/17 10:26 Senna - PO 1 tab BID [facility] Administration Sertraline HCl 25 mg 08/18/17 10:00 08/30/17 10:25 Zoloft - PO 25 mg DAILY [facility] Administration Sitagliptin Phosphate 50 mg 08/18/17 07:00 08/30/17 06:25 Januvia - PO 50 mg ACBK [facility] Administration Refactory ITP Mantle cell lymphoma DM ARLETTE Back pain Anemia Plan: Rituxin therapy , tolerated well week one on 08/30 c/w 60mg daily PO ( to be discharged on PO Prednisone) Monday CBC Week 2 ritixan on 08/06/2017. d/dov [facility]
--- NOTE | 2017-08-31 17:25 | PN ---
Progress Note (short form) - Note Progress Note: Renal Follow up for ARLETTE on CKD Pt seen and examined at the bedside no complaints no sob, chest pain Vital Signs Temperature 97.8 F 08/31/17 13:45 Pulse Rate 63 08/31/17 13:45 Respiratory Rate 18 08/31/17 13:45 Blood Pressure 151/66 08/31/17 13:45 O2 Sat by Pulse Oximetry (%) 98 08/31/17 09:00 Intake & Output 08/28/17 08/29/17 08/30/17 08/31/17 23:59 23:59 23:59 23:59 Intake Total 650 1000 2755 2165 Balance 650 1000 2755 2165 Weight 108.409 kg NAD on NC O2 RRR, no M/R CTA in anterior exam Abd obese, midl tenderness LUQ no Le edema CBC, BMP 08/31/17 11:15 08/31/17 11:15 Current Medications Albuterol Sulfate (Ventolin Hfa Inhaler -) 2 puff IH Q4H PRN PRN Reason: ASTHMA Allopurinol (Zyloprim -) 150 mg PO DAILY [facility] Last Admin: 08/31/17 10:17 Dose: 150 mg Alprazolam (Xanax -) 0.75 mg PO Q8H PRN PRN Reason: ANXIETY Last Admin: 08/31/17 10:24 Dose: 0.75 mg Amlodipine Besylate (Norvasc -) 5 mg PO DAILY [facility] Last Admin: 08/31/17 10:18 Dose: 5 mg Ascorbic Acid (Vitamin C -) 1,000 mg PO DAILY [facility] Last Admin: 08/31/17 10:18 Dose: 1,000 mg Calcium Carbonate (Calcium Carbonate -) 650 mg PO BID [facility] Last Admin: 08/31/17 10:19 Dose: 650 mg Glipizide (Glucotrol Xl -) 10 mg PO BIDAC [facility] Last Admin: 08/31/17 17:14 Dose: 10 mg Sodium Chloride (Normal Saline -) 1,000 mls @ 75 mls/hr IV ASDIR [facility] Last Admin: 08/31/17 10:26 Dose: 75 mls/hr Insulin Aspart (Novolog Vial Sliding Scale -) 1 vial SQ ACHS [facility] PRN Reason: Protocol Last Admin: 08/31/17 17:13 Dose: 6 units Morphine Sulfate (Ms Contin -) 60 mg PO TID [facility] Last Admin: 08/31/17 14:22 Dose: 60 mg Morphine Sulfate (Msir -) 15 mg PO Q6H PRN PRN Reason: PAIN LEVEL 4 - 6 Last Admin: 08/31/17 10:24 Dose: 15 mg Non-Formulary Medication (Ascorbic Acid [Vitamin C]) 1,000 mg PO DAILY [facility] Last Admin: 08/31/17 10:47 Dose: Not Given Ondansetron HCl (Zofran Injection) 8 mg IVPB Q8H PRN PRN Reason: NAUSEA Pantoprazole Sodium (Protonix -) 40 mg PO DAILY [facility] Last Admin: 08/31/17 10:18 Dose: 40 mg Polyethylene Glycol (Miralax (For Daily Use) -) 17 gm PO BID [facility] Last Admin: 08/31/17 10:00 Dose: 17 grams Prednisone (Deltasone -) 60 mg PO DAILY [facility] Last Admin: 08/31/17 10:17 Dose: 60 mg Senna (Senna -) 1 tab PO BID [facility] Last Admin: 08/31/17 10:19 Dose: 1 tab Sertraline HCl (Zoloft -) 25 mg PO DAILY [facility] Last Admin: 08/31/17 10:18 Dose: 25 mg Sitagliptin Phosphate (Januvia -) 50 mg PO ACBK [facility] Last Admin: 08/31/17 06:28 Dose: 50 mg A/p 66 year old woman with PMhx of CKD stage 3, hx of staghorn calculi with mild hydronephrosis, ITP, Mantle Cell lymphoma, UTI's, NIDDM, Hypertension who presented with weakness, lethargy and to have recurrent worsening thrombocytopneia and developed ARLETTE during the hospitalization with Cr of 1.6. #ARLETTE on CKD likely due to IVIG #ITP #Anemia #Hyponatremia will D/c lasix as Cr not stable at this time increase amlodpine to 10mg daily for BP control ok to be discharged with outpatient follow up repeat labs next week Thank you aDsh Padron DO
[2017-08-31 18:57] VITALS: BP 138/50; PULSE 55; TEMP 97.9
[2017-09-01] MEDS ORDERED: amLODIPine BESYLATE 10 MG TABLET (FP) PO SCH (10:00)
== END 2017-08-31 21:15 | disposition home or self-care (01) | DRG 840 ==
LOC: J7W 12:35
PROVIDERS: ADMIT Specialist; ATTEND Specialist
PROC: 0DD68ZX Extraction of Stomach, Via Natural or Artificial Opening Endoscopic, Diagnostic (ICD-10-PCS; 2017-08-25)
PROC: 30233R1 Transfusion of Nonautologous Platelets into Peripheral Vein, Percutaneous Approach (ICD-10-PCS; 2017-08-25)
PROC: 0DBM8ZX Excision of Descending Colon, Via Natural or Artificial Opening Endoscopic, Diagnostic (ICD-10-PCS; principal; 2017-08-25 13:00)
DX: C83.10 Mantle cell lymphoma, unspecified site (principal); K31.811 Angiodysplasia of stomach and duodenum with bleeding; D69.3 Immune thrombocytopenic purpura; N13.2 Hydronephrosis with renal and ureteral calculous obstruction; J84.9 Interstitial pulmonary disease, unspecified; E87.1 Hypo-osmolality and hyponatremia; N17.9 Acute kidney failure, unspecified; B37.81 Candidal esophagitis; K44.9 Diaphragmatic hernia without obstruction or gangrene; M16.11 Unilateral primary osteoarthritis, right hip; F41.8 Other specified anxiety disorders; M54.5 Low back pain; E11.9 Type 2 diabetes mellitus without complications; R09.02 Hypoxemia; M54.12 Radiculopathy, cervical region; R53.1 Weakness; E83.51 Hypocalcemia; D50.9 Iron deficiency anemia, unspecified; R19.5 Other fecal abnormalities; K59.00 Constipation, unspecified; G89.4 Chronic pain syndrome; I12.9 Hypertensive chronic kidney disease with stage 1 through stage 4 chronic kidney disease, or unspecified chronic kidney disease; E11.22 Type 2 diabetes mellitus with diabetic chronic kidney disease; N18.3 Chronic kidney disease, stage 3 (moderate); N31.9 Neuromuscular dysfunction of bladder, unspecified; D64.9 Anemia, unspecified; I25.10 Atherosclerotic heart disease of native coronary artery without angina pectoris; I27.20 Pulmonary hypertension, unspecified; K63.5 Polyp of colon; K64.8 Other hemorrhoids; J44.9 Chronic obstructive pulmonary disease, unspecified; Z78.0 Asymptomatic menopausal state; Z90.81 Acquired absence of spleen; Z87.891 Personal history of nicotine dependence; Z87.442 Personal history of urinary calculi
CPT/HCPCS: 36415; 36430; 36600; 70450-TC; 71045-TC-FY; 71046-TC-FY; 71250-TC; 72170-TC-FY; 74018-TC-FY; 76775-TC; 80048; 80053; 81003; 81015; 82272; 82570; 82728; 82803; 82962; 83540; 83550; 83615; 83735; 83880; 84100; 84156; 84300; 84439; 84443; 84540; 84550; 85025; 85027; 85610; 85613; 85651; 85732; 86162; 86225; 86431; 86850; 86900; 86901; 87040; 87086; 88104; 88300-TC; 88305-TC; 93306-TC; 93970-TC; 94761; 96367; 96375; 96413; 96415; 97116-GP; 97162-GP; J1100; J1561; J1756; J7030; J9310; P9034; P9038

== ENCOUNTER 2017-09-03 09:56 | Inpatient (IN) | payer OTHER, MEDICARE ==
[2017-09-03 10:17] VITALS: BMI 38.7
[2017-09-25 14:42] VITALS: BP 147/75; PULSE 72; TEMP 98
== END 2017-09-25 18:08 | disposition home or self-care (01) | DRG 813 ==
LOC: JER 09:56 → JERBED 15:34 → OBSVTOIN 16:03 → J5S 18:42 → J7W 09-06 15:49
PROVIDERS: ADMIT Internal Medicine; ATTEND Internal Medicine
PROC: 30233R1 Transfusion of Nonautologous Platelets into Peripheral Vein, Percutaneous Approach (ICD-10-PCS; principal; 2017-09-06)
DX: D69.3 Immune thrombocytopenic purpura (principal); N13.6 Pyonephrosis; J98.11 Atelectasis; N17.9 Acute kidney failure, unspecified; C83.10 Mantle cell lymphoma, unspecified site; J44.9 Chronic obstructive pulmonary disease, unspecified; E66.8 Other obesity; Z68.38 Body mass index [BMI] 38.0-38.9, adult; F41.8 Other specified anxiety disorders; M54.5 Low back pain; M16.11 Unilateral primary osteoarthritis, right hip; R31.9 Hematuria, unspecified; I12.9 Hypertensive chronic kidney disease with stage 1 through stage 4 chronic kidney disease, or unspecified chronic kidney disease; E11.22 Type 2 diabetes mellitus with diabetic chronic kidney disease; N18.3 Chronic kidney disease, stage 3 (moderate); K44.9 Diaphragmatic hernia without obstruction or gangrene; E11.65 Type 2 diabetes mellitus with hyperglycemia; D64.9 Anemia, unspecified; M48.00 Spinal stenosis, site unspecified
CPT/HCPCS: 36415; 36430; 71045-TC-FY; 71046-TC-FY; 74176; 80048; 80053; 81003; 81015; 82607; 82728; 82747; 82947; 82962; 83036; 83540; 83615; 83735; 84100; 84466; 84550; 85014; 85025; 85027; 85610; 85730; 86850; 86900; 86901; 87040; 87086; 87186; 88300-TC; 88305-TC; 88311-TC; 88313-TC; 93005; 93010; 94010; 94640; 96375; 96413; 96415; 99284-25; G0378; J1100; J1561; J7030; J9310; P9034; P9038

== ENCOUNTER 2017-09-30 15:17 | Emergency (ER) | payer OTHER, MEDICARE ==
[2017-09-30 15:46] VITALS: BMI 33.0
--- NOTE | 2017-09-30 15:50 | PDOC ---
History of Present Illness - General Chief Complaint: Altered Mental Status Stated Complaint: AMS Time Seen by Provider: 09/30/17 15:41 History Source: Family - History of Present Illness Initial Comments: 09/30/17 17:05 Patient is a 67 year old female with a PMH of mantle cell lymphoma (on steroids) , ITP (w/recent admission for thrombocytopenia), NIDDM, HTN, and CKD stage III who presents with two resolved episodes of AMS. As per patient's daughter and @ bedside patient initially confused at 4:30 a.m. this morning asking if it was day or night and and again around 9:30 a.m. this morning. Both episodes resolved within 10-15 minutes and patient currently at baseline MS. H/o of similar presentation with episode of urosepsis 3 years previous. ROS is positive for weakness and subjective dyspnea. Patient denies chest pain, headache or dizziness. Patient denies fever, chills, abdominal pain, nausea, vomit, diarrhea or constipation. Patient denies sick contacts or recent travel. As per EMR, patient evaluated at our facility earlier this month for thrombocytopenia 2/2 to ITP and UTI. Past History - Past Medical History Allergies/Adverse Reactions: Allergies Allergy/AdvReac Type Severity Reaction Status Date / Time ciprofloxacin HCl Allergy Intermediate Itching Verified 09/30/17 15:28 [From Cipro] levofloxacin [From Levaquin] Allergy Intermediate Rash Verified 09/30/17 15:28 atorvastatin calcium Allergy Mild muscle Verified 09/30/17 15:28 [From Lipitor] aches Home Medications: Ambulatory Orders Sertraline HCl [Zoloft -] 25 mg PO DAILY 08/28/14 Alprazolam [Xanax] 0.5 mg PO Q8H PRN #0 tablet 09/10/14 Pantoprazole Sodium [Protonix -] 40 mg PO DAILY #0 tablet.ec 09/10/14 Allopurinol [Zyloprim -] 150 mg PO DAILY #60 tablet 04/07/16 Albuterol Sulfate Inhaler - [Ventolin HFA Inhaler -] 1 - 2 inh PO PRN 08/09/16 Docusate Sodium [Colace -] 100 mg PO BID #60 tab-cap 10/29/16 Sitagliptin Phosphate [Januvia] 50 mg PO DAILY 03/18/17 Acetaminophen [Tylenol .Regular Strength -] 650 mg PO PRN 05/26/17 Ascorbic Acid [Vitamin C] 1,000 mg PO DAILY 08/17/17 Ferrous Sulfate 325 mg PO DAILY 08/17/17 Calcium Carbonate - 650 mg PO BID #60 tablet 08/31/17 Morphine *Sr* [MS Contin -] 60 mg PO TID #60 tab.sa MDD 180mg 08/31/17 Morphine Sulfate 15 mg PO QID PRN #30 tablet MDD 60mg 08/31/17 Amlodipine Besylate [Norvasc -] 5 mg PO DAILY #30 tablet 09/25/17 Arformoterol Tartrate [Brovana -] 1 amp NEB RBID #60 amp 09/25/17 Atovaquone [Mepron Oral Solution -] 1,500 mg PO DAILY@0800 #1 bottle 09/25/17 Budesonide/Formeterol Fumarate [SYMBICORT 160/4.5mcg -] 2 puff IH BID #1 inhaler 09/25/17 Glipizide [Glucotrol -] 5 mg PO BIDBL #60 tablet 09/25/17 Metoprolol Tartrate [Lopressor -] 25 mg PO BID #60 tablet 09/25/17 predniSONE [Deltasone -] 35 mg PO DAILY 09/30/17 Anemia: No (ICP) Asthma: No Cancer: Yes (lymphoma) Cardiac Disorders: Yes (SOB) CVA: No COPD: No CHF: No Dementia: No Diabetes: Yes (niddm) GI Disorders: Yes (DIVERTICULOSIS) Disorders: Yes (KIDNEY STONES, RECOCCURENT UTI) HTN: Yes Hypercholesterolemia: No Liver Disease: No Psychiatric Problems: Yes (ANXIETY) Seizures: No Thyroid Disease: No - Surgical History Abdominal Surgery: Yes (SPLEENECTOMY) Appendectomy: No Cardiac Surgery: No Cholecystectomy: No Lung Surgery: No Neurologic Surgery: Yes (cervical laminectomy x 2) Orthopedic Surgery: Yes (Anterior and posterior cervical laminectomy with fusion ) - Immunization History Immunization Up to Date: Yes - Suicide/Smoking/Psychosocial Hx Smoking Status: No Smoking History: Never smoked Have you smoked in the past 12 months: No Number of Cigarettes Smoked Daily: 0 If you are a former smoker, when did you quit?: 2001 Information on smoking cessation initiated: No Hx Alcohol Use: No Drug/Substance Use Hx: No Substance Use Type: None Hx Substance Use Treatment: No *Physical Exam - Vital Signs Last Vital Signs Temp Pulse Resp BP Pulse Ox 99.0 F 99 H 18 150/70 96 09/30/17 15:29 09/30/17 15:29 09/30/17 15:29 09/30/17 15:29 09/30/17 15:29 ED Treatment Course - LABORATORY CBC & Chemistry Diagram: 09/30/17 16:03 09/30/17 16:03 Medical Decision Making - Medical Decision Making 09/30/17 17:26 67 year old female presents to ED c/o 2 isolated episodes of AMS and generalized weakness. Will CT head to rule out acute bleed (h/o thrombocytopenia) vs. ischemic event as well UA to evaluate for possible urosepsis. CBC, CMP to evaluate for weakness Reassess. 09/30/17 17:29 CBC shows mild hyponatremia (133), CMP, Troponin, CT head pending. 09/30/17 18:22 Leukocytosis 22; UA pending to evaluate for UTI as infectious source vs. elevated WBC 2/2 to Predisone. Patient @ CT 09/30/17 18:36 Patient reassessed @ bedside. States weakness improved. Tolerating PO intake. 09/30/17 19:31 Case d/w Dr. Muir (oncology) agree with d/c home pending head CT, UA read. 09/30/17 19:[address] negative for acute bleed; UA clean. Will discharge patient home with return precautions and instruction to f/u with PMD and keep previously scheduled appointment with oncology. I discussed the physical exam findings, ancillary test results and final diagnoses with the patient. I answered all of the patient's questions. The patient was satisfied with the care received and felt comfortable with the discharge plan and treatment plan. The patient will return to the Emergency Department with any new, persistent or worsening symptoms. *DC/Admit/Observation/Transfer Diagnosis at time of Disposition: Altered mental status - Discharge Dispostion Disposition: HOME Condition at time of disposition: Stable - Referrals Referrals: Subhash Mcfarlane MD [Primary Care Provider] - - Patient Instructions - Post Discharge Activity
[2017-09-30 17:05] LABS: ALBUMIN 2.4 g/dl (3.4-5.0); ALK PHOS 56 U/L (45-117); ANION GAP 8 (8-16); BILIRUBIN,TOTAL 0.3 mg/dL (0.2-1.0); BLOOD UREA NITROGEN 30 mg/dL (7-18); CALCIUM 7.5 mg/dL (8.5-10.1); CHLORIDE 102 mmol/L (98-107); CO2 23 mmol/L (21-32); CREATININE 1.9 mg/dL (0.55-1.02); GLUCOSE,RANDOM 248 mg/dL (74-106); MAGNESIUM 1.9 mg/dL (1.8-2.4); POTASSIUM 4.5 mmol/L (3.5-5.1); SGOT/AST 20 U/L (15-37); SGPT/ALT 19 U/L (12-78); SODIUM 133 mmol/L (136-145); TOT PROT 6.8 g/dl (6.4-8.2)
[2017-09-30 17:59] LABS: HEMATOCRIT 33.6 % (32.4-45.2); MCH 28.6 pg (25.7-33.7); MCHC 32.9 g/dl (32.0-36.0); MEAN PLT VOLUME 8.8 fl (7.5-11.1); PLATELET COUNT 190 K/MM3 (134-434); RBC 3.86 M/mm3 (3.60-5.2); RDW 27.8 % (11.6-15.6)
[2017-09-30 18:05] LABS: ADD RBC MORPHOLOGY YES
[2017-09-30 18:11] LABS: INR 0.96 (0.82-1.09); PROTHROMBIN TIME (PATIENT) 10.8 SEC (9.7-13.0)
[2017-09-30 18:24] LABS: ALBUMIN 2.5 g/dl (3.4-5.0); ANION GAP 7 (8-16); BILIRUBIN,TOTAL 0.3 mg/dL (0.2-1.0); BLOOD UREA NITROGEN 30 mg/dL (7-18); CALCIUM 7.8 mg/dL (8.5-10.1); CHLORIDE 98 mmol/L (98-107); CO2 28 mmol/L (21-32); GLUCOSE,RANDOM 282 mg/dL (74-106); POTASSIUM 4.8 mmol/L (3.5-5.1); SGOT/AST 17 U/L (15-37); SGPT/ALT 18 U/L (12-78); SODIUM 133 mmol/L (136-145)
[2017-09-30 18:26] LABS: ALK PHOS 58 U/L (45-117)
[2017-09-30 18:47] LABS: ANISOCYTOSIS 3+; MACROCYTOSIS 1+; PLATELET ESTIMATE ADEQUATE
--- NOTE | 2017-09-30 19:05 | PDOC ---
Attending Attestation - Resident Resident Name: Danyelle Herbert - ED Attending Attestation I have performed the following: I have examined & evaluated the patient, The case was reviewed & discussed with the resident, I agree w/resident's findings & plan, Exceptions are as noted - Medical Decision Making 09/30/17 19:03 67 yo F with h/o lymphoma, itp, prior smoker here wtih c/o brief episode of confusion. per her daughter pt was confused lasted few hours. takes morphine at times for pain, last took night prior. no f/c baseline oxygen sat for 95-96% . no f or c/ no trauma. was recently admitted with platelets as low as 3, hematuria, and gi bleed. no headache . differential Ich, tia, infection such as pna or uti. plan labs ct head ekg. will d/w pt oncologist dr. mills pt at baseline now feeling better ok going home. would like to be dc. d/w covering for dr. mills. will dc home. pending ct and ua results. <Nishi Decker - Last Filed: 09/30/17 19:02> - HPI HPI: Patient is a 67F, with PMHx of lymphoma, ITP, who presents today for altered mental status. Patient was recently d/c from [facility] 5 days ago for low platelets. Patients daughter states that her loss of lucidity began around 2:30 this morning, when she got up to side of bed in a confused state and wasn't sure if it was day or night. This morning during breakfast she had another moment of confusion and asked Where am I?, Whats going on? and was very jittery. Patients daughter states similar episode of confusion like this in this past when she had UTI's. Currently she is awake, alert and oriented to person place and time. She is currently complaining of feeling short of breath. She denies chest pain, headache, fever, chills, nausea, vomiting, diarrhea. PCP: Subhash Mcfarlane 09/30/17 19:08 - Physicial Exam PE: GENERAL: Awake, alert, and fully oriented, in no acute distress HEAD: No signs of trauma EYES: PERRLA, EOMI, sclera anicteric, conjunctiva clear ENT: Auricles normal inspection, nares patent, Moist mucosa NECK: Normal ROM, supple, no lymphadenopathy, JVD, or masses LUNGS: Faint crackles at left base. HEART: Regular rate and rhythm, normal S1 and S2, no murmurs, rubs or gallops ABDOMEN: Soft, nontender, normoactive bowel sounds. No guarding, no rebound. No masses EXTREMITIES: Normal range of motion, no edema. No clubbing or cyanosis. No cords, erythema, or tenderness NEUROLOGICAL: Normal speech. No focal neurological deficits. SKIN: Warm, Dry, normal turgor, no rashes or lesions noted. 09/30/17 19:08 <Debby Cortez - Last Filed: 09/30/17 19:08>
[2017-09-30 19:31] LABS: URINE APPEARANCE CLEAR; URINE BILIRUBIN NEGATIVE (<2.0 mg/dL); URINE BLOOD NEGATIVE (NEGATIVE); URINE COLOR STRAW; URINE GLUCOSE (UA) 2+ (NEGATIVE); URINE KETONE NEGATIVE (NEGATIVE); URINE LEUK ESTERASE NEGATIVE (NEGATIVE); URINE NITRITE NEGATIVE (NEGATIVE); URINE PROTEIN 2+ (NEGATIVE); URINE UROBILINOGEN NEGATIVE mg/dL (0.2-1.0)
[2017-09-30 19:36] LABS: EPI CELLS RARE /HPF (FEW)
[2017-09-30 20:00] VITALS: BP 146/76; PULSE 86; TEMP 98.6
--- NOTE | 2017-10-01 10:43 | EKG ---
Test Reason : Blood Pressure : / mmHG Vent. Rate : 089 BPM Atrial Rate : 089 BPM P-R Int : 120 ms QRS Dur : 088 ms QT Int : 364 ms P-R-T Axes : 059 -34 021 degrees QTc Int : 442 ms NORMAL SINUS RHYTHM POSSIBLE LEFT ATRIAL ENLARGEMENT LEFT AXIS DEVIATION ABNORMAL ECG WHEN COMPARED WITH ECG OF 03-SEP-2017 11:24, NO SIGNIFICANT CHANGE WAS FOUND Confirmed by SARA OLIVO, DORCAS ([id number]) on 10/01/2017 10:43:31 AM Referred By: Confirmed By:DORCAS RUIZ MD
== END 2017-09-30 20:01 | disposition home or self-care (01) ==
LOC: JER 15:17
DX: R41.82 Altered mental status, unspecified (principal); D69.3 Immune thrombocytopenic purpura; E11.9 Type 2 diabetes mellitus without complications; Z79.84 Long term (current) use of oral hypoglycemic drugs; C83.10 Mantle cell lymphoma, unspecified site; F41.9 Anxiety disorder, unspecified; I12.9 Hypertensive chronic kidney disease with stage 1 through stage 4 chronic kidney disease, or unspecified chronic kidney disease; E11.22 Type 2 diabetes mellitus with diabetic chronic kidney disease; N18.3 Chronic kidney disease, stage 3 (moderate)
CPT/HCPCS: 36415; 70450-TC; 71045-TC-FY; 80053; 81003; 81015; 82140; 82550; 82962; 83735; 84484; 85025; 85610; 85730; 86850; 86900; 86901; 87040; 87086; 93005; 93010; 99285-25

== ENCOUNTER 2017-10-18 06:09 | Inpatient (IN) | payer OTHER, MEDICARE ==
[2017-10-18] MEDS ORDERED: MAGNESIUM SULF 50% (8.12 MEQ/2 ML-1 GM VIAL) IVPB ONE (06:23)
[2017-10-18] MEDS ORDERED: methylPREDNISolone NA SUCC 125 MG/2 ML VIAL IVPUSH ONE (06:23)
[2017-10-18] MEDS ORDERED: MAGNESIUM SULF 50% (8.12 MEQ/2 ML-1 GM VIAL) ONE (06:33)
[2017-10-18] MEDS ORDERED: methylPREDNISolone NA SUCC 125 MG/2 ML VIAL ONE (06:35)
--- NOTE | 2017-10-18 06:37 | PDOC ---
History of Present Illness - General Stated Complaint: DIFFICULTY BREATHING Time Seen by Provider: 10/18/17 06:37 History Source: Patient, EMS Past History - Past Medical History Allergies/Adverse Reactions: Allergies Allergy/AdvReac Type Severity Reaction Status Date / Time ciprofloxacin HCl Allergy Intermediate Itching Verified 09/30/17 15:28 [From Cipro] levofloxacin [From Levaquin] Allergy Intermediate Rash Verified 09/30/17 15:28 atorvastatin calcium Allergy Mild muscle Verified 09/30/17 15:28 [From Lipitor] aches Home Medications: Ambulatory Orders Sertraline HCl [Zoloft -] 25 mg PO DAILY 08/28/14 Alprazolam [Xanax] 0.5 mg PO Q8H PRN #0 tablet 09/10/14 Pantoprazole Sodium [Protonix -] 40 mg PO DAILY #0 tablet.ec 09/10/14 Allopurinol [Zyloprim -] 150 mg PO DAILY #60 tablet 04/07/16 Albuterol Sulfate Inhaler - [Ventolin HFA Inhaler -] 1 - 2 inh PO PRN 08/09/16 Docusate Sodium [Colace -] 100 mg PO BID #60 tab-cap 10/29/16 Sitagliptin Phosphate [Januvia] 50 mg PO DAILY 03/18/17 Acetaminophen [Tylenol .Regular Strength -] 650 mg PO PRN 05/26/17 Ascorbic Acid [Vitamin C] 1,000 mg PO DAILY 08/17/17 Ferrous Sulfate 325 mg PO DAILY 08/17/17 Calcium Carbonate - 650 mg PO BID #60 tablet 08/31/17 Morphine *Sr* [MS Contin -] 60 mg PO TID #60 tab.sa MDD 180mg 08/31/17 Morphine Sulfate 15 mg PO QID PRN #30 tablet MDD 60mg 08/31/17 Amlodipine Besylate [Norvasc -] 5 mg PO DAILY #30 tablet 09/25/17 Arformoterol Tartrate [Brovana -] 1 amp NEB RBID #60 amp 09/25/17 Atovaquone [Mepron Oral Solution -] 1,500 mg PO DAILY@0800 #1 bottle 09/25/17 Budesonide/Formeterol Fumarate [SYMBICORT 160/4.5mcg -] 2 puff IH BID #1 inhaler 09/25/17 Glipizide [Glucotrol -] 5 mg PO BIDBL #60 tablet 09/25/17 Metoprolol Tartrate [Lopressor -] 25 mg PO BID #60 tablet 09/25/17 predniSONE [Deltasone -] 35 mg PO DAILY 09/30/17 Anemia: No (ICP) Asthma: No Cancer: Yes (lymphoma) Cardiac Disorders: Yes (SOB) CVA: No COPD: No CHF: No Dementia: No Diabetes: Yes (niddm) GI Disorders: Yes (DIVERTICULOSIS) Disorders: Yes (bladder dysfunction) HTN: Yes Hypercholesterolemia: No Liver Disease: No Psychiatric Problems: Yes (ANXIETY) Seizures: No Thyroid Disease: No - Surgical History Abdominal Surgery: Yes (SPLEENECTOMY) Appendectomy: No Cardiac Surgery: No Cholecystectomy: No Lung Surgery: No Neurologic Surgery: Yes (cervical laminectomy x 2) Orthopedic Surgery: Yes (Anterior and posterior cervical laminectomy with fusion ) - Immunization History Immunization Up to Date: Yes - Suicide/Smoking/Psychosocial Hx Smoking Status: No Smoking History: Never smoked Have you smoked in the past 12 months: No Number of Cigarettes Smoked Daily: 0 If you are a former smoker, when did you quit?: 2001 Hx Alcohol Use: No Drug/Substance Use Hx: No Substance Use Type: None Hx Substance Use Treatment: No
[2017-10-18] MEDS ORDERED: FUROSEMIDE 40 MG/4 ML INJECTABLE VIAL IVPUSH ONE ×2 (06:38→22:59)
[2017-10-18] MEDS ORDERED: FUROSEMIDE 40 MG/4 ML INJECTABLE VIAL ONE (06:39)
--- NOTE | 2017-10-18 06:41 | PDOC ---
History of Present Illness - General Stated Complaint: DIFFICULTY BREATHING Time Seen by Provider: 10/18/17 06:15 History Source: Patient, EMS Exam Limitations: Clinical Condition - History of Present Illness Initial Comments: CHIEF COMPLAINT: 67 y/o afebrile female with PMH mantle cell lymphoma (on steroids), ITP, NIDDM, HTN and stage 3 CKD BIB EMS for difficulty breathing. HISTORY OF PRESENT ILLNESS: The patient admits she woke up with difficulty breathing. This is the worst she's ever felt. She denies previous intubation or BiPap. She denies fever, chest pain, ARMAS, dizziness, abd pain, n/v/d, constipation. Vital signs on arrival are notable for pulse of 163, RR 26, O2 sat 73% on NRB. REVIEW OF SYSTEMS: GENERAL/CONSTITUTIONAL: No fever. CARDIOVASCULAR: +SOB with difficulty breathing. No chest pain. RESPIRATORY: No cough, wheezing, or hemoptysis. GASTROINTESTINAL: No vomiting, diarrhea, constipation. GENITOURINARY: No change in urination. SKIN: No rash or easy bruising. PHYSICAL EXAM: GENERAL: The patient is awake, alert, and fully oriented, in acute respiratory distress. She is agitated. HEAD: Normal with no signs of trauma. ENT: Pupils equal, round and reactive to light, extraocular movements intact, sclera anicteric, conjunctiva clear. LUNGS: Very faint expiratory wheezing in upper julian. Poor air movement. Use of accessory muscles. CV: tachycardic, S1/S2, no MRG. Cap refill < 2 sec. ABDOMEN: Soft, obese, non-tender even to deep palpation, no hepatomegaly or splenomegaly, no masses. EXTREMITIES: 2+ pitting edema b/l LEs. NEUROLOGICAL: Normal speech. CN II-XII grossly intact. SKIN: Warm, dry, normal turgor, no rashes or lesions noted. Past History - Past Medical History Allergies/Adverse Reactions: Allergies Allergy/AdvReac Type Severity Reaction Status Date / Time ciprofloxacin HCl Allergy Intermediate Itching Verified 09/30/17 15:28 [From Cipro] levofloxacin [From Levaquin] Allergy Intermediate Rash Verified 09/30/17 15:28 atorvastatin calcium Allergy Mild muscle Verified 09/30/17 15:28 [From Lipitor] aches Home Medications: Ambulatory Orders Sertraline HCl [Zoloft -] 25 mg PO DAILY 08/28/14 Alprazolam [Xanax] 0.5 mg PO Q8H PRN #0 tablet 09/10/14 Pantoprazole Sodium [Protonix -] 40 mg PO DAILY #0 tablet.ec 09/10/14 Allopurinol [Zyloprim -] 150 mg PO DAILY #60 tablet 04/07/16 Albuterol Sulfate Inhaler - [Ventolin HFA Inhaler -] 1 - 2 inh PO PRN 08/09/16 Docusate Sodium [Colace -] 100 mg PO BID #60 tab-cap 10/29/16 Sitagliptin Phosphate [Januvia] 50 mg PO DAILY 03/18/17 Acetaminophen [Tylenol .Regular Strength -] 650 mg PO PRN 05/26/17 Ascorbic Acid [Vitamin C] 1,000 mg PO DAILY 08/17/17 Ferrous Sulfate 325 mg PO DAILY 08/17/17 Calcium Carbonate - 650 mg PO BID #60 tablet 08/31/17 Morphine *Sr* [MS Contin -] 60 mg PO TID #60 tab.sa MDD 180mg 08/31/17 Morphine Sulfate 15 mg PO QID PRN #30 tablet MDD 60mg 08/31/17 Amlodipine Besylate [Norvasc -] 5 mg PO DAILY #30 tablet 09/25/17 Arformoterol Tartrate [Brovana -] 1 amp NEB RBID #60 amp 09/25/17 Atovaquone [Mepron Oral Solution -] 1,500 mg PO DAILY@0800 #1 bottle 09/25/17 Budesonide/Formeterol Fumarate [SYMBICORT 160/4.5mcg -] 2 puff IH BID #1 inhaler 09/25/17 Glipizide [Glucotrol -] 5 mg PO BIDBL #60 tablet 09/25/17 Metoprolol Tartrate [Lopressor -] 25 mg PO BID #60 tablet 09/25/17 predniSONE [Deltasone -] 35 mg PO DAILY 09/30/17 Anemia: No (ICP) Asthma: No Cancer: Yes (lymphoma) Cardiac Disorders: Yes (SOB) CVA: No COPD: No CHF: No Dementia: No Diabetes: Yes (niddm) GI Disorders: Yes (DIVERTICULOSIS) Disorders: Yes (bladder dysfunction) HTN: Yes Hypercholesterolemia: No Liver Disease: No Psychiatric Problems: Yes (ANXIETY) Seizures: No Thyroid Disease: No - Surgical History Abdominal Surgery: Yes (SPLEENECTOMY) Appendectomy: No Cardiac Surgery: No Cholecystectomy: No Lung Surgery: No Neurologic Surgery: Yes (cervical laminectomy x 2) Orthopedic Surgery: Yes (Anterior and posterior cervical laminectomy with fusion ) - Immunization History Immunization Up to Date: Yes - Suicide/Smoking/Psychosocial Hx Smoking Status: No Smoking History: Never smoked Have you smoked in the past 12 months: No Number of Cigarettes Smoked Daily: 0 If you are a former smoker, when did you quit?: 2001 Hx Alcohol Use: No Drug/Substance Use Hx: No Substance Use Type: None Hx Substance Use Treatment: No Respiratory Specific PMHX - Complaint Specific PMHX Angina: No ED Treatment Course - RADIOLOGY Radiology Studies Ordered: Category Date Time Status CHEST X-RAY PORTABLE* [RAD] Stat Radiology 10/18/17 06:23 Ordered Medical Decision Making - Medical Decision Making A/P: 67 y/o female in acute respiratory distress. asthma/COPD exacerbation vs new onset CHF vs flash pulmonary edema. Patient was initially placed in Room 6 in the ER. She was assessed and moved to Room 10. Respiratory was called for BIpap. IV access was obtained and IV solumedrol, IV magnesium and IV lasix was given. Patient was given duoneb through bipap machine a second IV access was obtained and blood work drawn CXR ordered *DC/Admit/Observation/Transfer Diagnosis at time of Disposition: Difficulty breathing - Referrals - Patient Instructions - Post Discharge Activity
--- NOTE | 2017-10-18 06:41 | PDOC ---
ED Treatment Course - LABORATORY CBC & Chemistry Diagram: 10/18/17 07:56 10/18/17 06:40 Medical Decision Making - Medical Decision Making 10/18/17 06:40 agree with care from DUANE Calloway. Pt presents with acute SOB earlier this morning. Pt presented Tachynpic and tachycardiac *DC/Admit/Observation/Transfer Diagnosis at time of Disposition: Difficulty breathing, Pneumonia, Hypercapnic respiratory failure - Discharge Dispostion Condition at time of disposition: Critical - Referrals - Patient Instructions - Post Discharge Activity
[2017-10-18] MEDS ORDERED: ALBUTEROL SO4 2.5/IPRATROPIUM 0.5 INH SOL 3 ML VIAL.NEB. NEB ONE (06:52)
[2017-10-18] MEDS ORDERED: ACETAMINOPHEN 1000 MG/100 ML VIAL (NON FORMULARY) IVPB ONE ×2 (07:06→07:45)
[2017-10-18 07:25] LABS: URINE APPEARANCE SLCLOUDY; URINE BILIRUBIN NEGATIVE (<2.0 mg/dL); URINE COLOR LTYELLOW; URINE GLUCOSE (UA) 1+ (NEGATIVE); URINE KETONE NEGATIVE (NEGATIVE); URINE LEUK ESTERASE NEGATIVE (NEGATIVE); URINE NITRITE NEGATIVE (NEGATIVE); URINE UROBILINOGEN NEGATIVE mg/dL (0.2-1.0); VENOUS PO2 83.6 mmHg (28-48)
[2017-10-18 07:26] LABS: VENOUS PH 6.71 (7.32-7.42)
[2017-10-18 07:27] LABS: ALBUMIN 2.9 g/dl (3.4-5.0); ANION GAP 11 (8-16); BILIRUBIN,TOTAL 0.4 mg/dL (0.2-1.0); BLOOD UREA NITROGEN 29 mg/dL (7-18); CALCIUM 8.6 mg/dL (8.5-10.1); CHLORIDE 98 mmol/L (98-107); CO2 28 mmol/L (21-32); GLUCOSE,RANDOM 168 mg/dL (74-106); POTASSIUM 4.9 mmol/L (3.5-5.1); SGOT/AST 23 U/L (15-37); SGPT/ALT 18 U/L (12-78); SODIUM 137 mmol/L (136-145); TOT PROT 7.6 g/dl (6.4-8.2)
[2017-10-18 07:27] LABS: URINE PROTEIN 2+ (NEGATIVE); VENOUS PC02 75.2 mmHg (38-52)
[2017-10-18 07:30] LABS: ALK PHOS 86 U/L (45-117); N-TERMINAL BNP 376.96 pg/ml (5-125)
[2017-10-18] MEDS ORDERED: VANCOMYCIN 1,000 MG in DEXTROSE 5%-WATER - 250 ML IVPB ONE ×2 (07:30→20:58)
[2017-10-18 07:31] LABS: EPI CELLS RARE /HPF (FEW); URINE BACTERIA MODERATE /hpf (NONE SEEN); URINE MUCUS RARE
[2017-10-18] MEDS ORDERED: SODIUM CHLORIDE 1,000 ML IV STA (07:31)
--- NOTE | 2017-10-18 07:36 | PDOC ---
*Physical Exam - Vital Signs Last Vital Signs Temp Pulse Resp BP Pulse Ox 100.9 F H 151 H 26 H 170/100 88 L 10/18/17 07:04 10/18/17 07:04 10/18/17 07:04 10/18/17 07:04 10/18/17 07:04 - Physical Exam Comments: 10/18/17 07:39 Appears comfortable on BiPAP General Appearance: No: Appropriately Dressed HEENT: positive: Normal Voice Neck: positive: Supple Respiratory/Chest: positive: Lungs Clear, Normal Breath Sounds. negative: Respiratory Distress Cardiovascular: positive: S1, S2, Tachycardia Gastrointestinal/Abdominal: positive: Soft. negative: Tender Extremity: positive: Pedal Edema (1+ b/l) Integumentary: positive: Dry, Warm Neurologic: positive: Fully Oriented, Alert, Normal Mood/Affect ED Treatment Course - LABORATORY CBC & Chemistry Diagram: 10/18/17 07:56 10/18/17 06:40 - ADDITIONAL ORDERS Additional order review: Laboratory Results 10/18/17 10/18/17 07:09 07:09 VBG pH 6.71 L* POC VBG pCO2 75.2 H* POC VBG pO2 83.6 H Mixed VBG HCO3 9.0 L* Urine Color Ltyellow Urine Appearance Slcloudy Urine pH 5.0 D Ur Specific Harlan 1.012 Urine Protein 2+ H Urine Glucose (UA) 1+ H Urine Ketones Negative Urine Blood 2+ H Urine Nitrite Negative Urine Bilirubin Negative Urine Urobilinogen Negative Ur Leukocyte Esterase Negative Urine WBC (Auto) 5 Urine RBC (Auto) 35 Ur Epithelial Cells Rare Urine Bacteria Moderate Urine Mucus Rare 10/18/17 06:40 RBC Cancelled MCV Cancelled MCHC Cancelled RDW Cancelled MPV Cancelled Neutrophils % Cancelled Lymphocytes % Cancelled Monocytes % Cancelled Eosinophils % Cancelled Basophils % Cancelled - RADIOLOGY Radiology Studies Ordered: Category Date Time Status DUPLEX VASCUL US-2LEGS [US] Stat Ultrasound 10/18/17 07:34 Ordered - Medications Given in the ED: ED Medications Discontinued Medications Generic Name Dose Route Start Last Admin Trade Name Freq PRN Reason Stop Dose Admin Acetaminophen 1,000 mg 10/18/17 07:06 10/18/17 07:15 Ofirmev Injection - IVPB 10/18/17 07:07 1,000 mg ONCE ONE Administration Albuterol/Ipratropium 1 amp 10/18/17 06:52 10/18/17 07:02 Duoneb - NEB 10/18/17 06:53 1 amp ONCE ONE Administration Furosemide 60 mg 10/18/17 06:38 10/18/17 07:02 Lasix Injection - IVPUSH 10/18/17 06:39 60 mg ONCE ONE Administration Magnesium Sulfate 2 gm 10/18/17 06:23 10/18/17 06:42 Magnesium Sulfate IVPB 10/18/17 06:24 2 gm ONCE ONE Administration Methylprednisolone Sodium Succinate 125 mg 10/18/17 06:23 10/18/17 06:43 Solu-Medrol - IVPUSH 10/18/17 06:24 125 mg ONCE ONE Administration Medical Decision Making - Medical Decision Making 10/18/17 07:35 Signed out to me at 7 AM by DUANE Calloway Patient is a 66-year-old female, morbidly obese with hypertension, non-insulin- dependent diabetic mantle cell lymphoma, ITP status post splenectomy, diaphragmatic hernia, diverticulitis, renal stone, recurrent UTIs, anxiety, depression, per records use albuterol pump though denies COPD/asthma (possible tob use in past-pt poor historian), who presents with acute shortness of breath this a.m. with possible dry cough. Found to be in respiratory distress in ED sating 70s on non-rebreather and tachycardic to 140s w/ low-grade fever. Now sating 100% on BiPAP with antipyretic and antibiotics in progress. Rest of labs and chest x-ray pending. Will also get bedside lower extremity dopplers. Admission pending 10/18/17 07:45 PH of 6.7 with CO2 of 75 and bicarbonate of 9! Suspect sepsis at this time, source possible pulmonary, does have history of recurrent UTIs with UA pending. Dose of vanc and cefepime in progress. Will also give IV fluids as discussed with ED attending. Of note, patient was given 80 mg of Lasix by prior team. 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 UA w/ mod bacteria but no LE or nit. Lactate 2.8. Clinical picture consistent with sepsis secondary to pneumonia. Cultures pending. Abx/IVF in progress. Of note, bicarbonate on chemistry 28 does not correlate with bicarbonate of 9 on VBG. As per discussion with Dr. Randall, will get repeat VBG. 10/18/17 09:09 Called ICU, told no stamp press operator present at this time. Paged Dr Carroll as d/w Dr Randall. Of note, repeat ABG with pH of 7, CO2 of 75, O2 of 26 and bicarbonate of 10. ABG pending 10/18/17 09:[address] Carroll to the unit. Admission arranged with 10/18/17 11:06 At this time, patient transferred upstairs. Repeat lactate still pending. ABG not performed in ED *DC/Admit/Observation/Transfer Diagnosis at time of Disposition: Difficulty breathing Pneumonia Qualifiers: Pneumonia type: due to unspecified organism Laterality: unspecified laterality Lung location: unspecified part of lung Qualified Code(s): J18.9 - Pneumonia, unspecified organism Hypercapnic respiratory failure Qualifiers: Chronicity: acute Qualified Code(s): J96.02 - Acute respiratory failure with hypercapnia - Discharge Dispostion Condition at time of disposition: Critical Decision to Admit order: Yes - Referrals - Patient Instructions - Post Discharge Activity
[2017-10-18] MEDS ORDERED: ACETAMINOPHEN INJECTION 100 ML IVPB ONE (07:59)
--- NOTE | 2017-10-18 08:01 | PDOC ---
*Physical Exam - Vital Signs Last Vital Signs Temp Pulse Resp BP Pulse Ox 100.9 F H 151 H 26 H 170/100 88 L 10/18/17 07:04 10/18/17 07:04 10/18/17 07:04 10/18/17 07:04 10/18/17 07:04 - Physical Exam Comments: 10/18/17 07:57 gen: awake, on bipap, states feeling better heart: +s1s2 tachy lungs: coarse bs b/l abd: soft, obese, nontender ext: R>L LE swelling with calf ttp neuro: no focal deficits ED Treatment Course - LABORATORY CBC & Chemistry Diagram: 10/18/17 07:56 10/18/17 06:40 - ADDITIONAL ORDERS Additional order review: Laboratory Results 10/18/17 10/18/17 10/18/17 07:09 07:09 06:40 VBG pH 6.71 L* POC VBG pCO2 75.2 H* POC VBG pO2 83.6 H Mixed VBG HCO3 9.0 L* Sodium 137 Potassium 4.9 Chloride 98 Carbon Dioxide 28 Anion Gap 11 BUN 29 H Creatinine 2.0 H Creat Clearance w eGFR 24.85 Random Glucose 168 H Calcium 8.6 Total Bilirubin 0.4 D AST 23 ALT 18 Alkaline Phosphatase 86 Creatine Kinase 36 Troponin I < 0.02 B-Natriuretic Peptide 376.96 H Total Protein 7.6 Albumin 2.9 L Urine Color Ltyellow Urine Appearance Slcloudy Urine pH 5.0 D Ur Specific [place] 1.012 Urine Protein 2+ H Urine Glucose (UA) 1+ H Urine Ketones Negative Urine Blood 2+ H Urine Nitrite Negative Urine Bilirubin Negative Urine Urobilinogen Negative Ur Leukocyte Esterase Negative Urine WBC (Auto) 5 Urine RBC (Auto) 35 Ur Epithelial Cells Rare Urine Bacteria Moderate Urine Mucus Rare 10/18/17 06:40 RBC Cancelled MCV Cancelled MCHC Cancelled RDW Cancelled MPV Cancelled Neutrophils % Cancelled Lymphocytes % Cancelled Monocytes % Cancelled Eosinophils % Cancelled Basophils % Cancelled - Medications Given in the ED: ED Medications Discontinued Medications Generic Name Dose Route Start Last Admin Trade Name Freq PRN Reason Stop Dose Admin Acetaminophen 1,000 mg 10/18/17 07:06 10/18/17 07:15 Ofirmev Injection - IVPB 10/18/17 07:07 1,000 mg ONCE ONE Administration Albuterol/Ipratropium 1 amp 10/18/17 06:52 10/18/17 07:02 Duoneb - NEB 10/18/17 06:53 1 amp ONCE ONE Administration Furosemide 60 mg 10/18/17 06:38 10/18/17 07:02 Lasix Injection - IVPUSH 10/18/17 06:39 60 mg ONCE ONE Administration Magnesium Sulfate 2 gm 10/18/17 06:23 10/18/17 06:42 Magnesium Sulfate IVPB 10/18/17 06:24 2 gm ONCE ONE Administration Methylprednisolone Sodium Succinate 125 mg 10/18/17 06:23 10/18/17 06:43 Solu-Medrol - IVPUSH 10/18/17 06:24 125 mg ONCE ONE Administration Medical Decision Making - Medical Decision Making 10/18/17 07:58 a/p: 67yo female with acute onset of SOB/COUGH -pt signed out from the prior attending pending labs, cxr -pt running a fever, will send cultures and start abx -pt will need admission poss pna on cxr abx started mod bacteria in urine 10/18/17 11:12 pt will be admitted to the ICU for pna, uti, hypercapnic resp failure *DC/Admit/Observation/Transfer Diagnosis at time of Disposition: Difficulty breathing Pneumonia Qualifiers: Pneumonia type: due to unspecified organism Laterality: unspecified laterality Lung location: unspecified part of lung Qualified Code(s): J18.9 - Pneumonia, unspecified organism Hypercapnic respiratory failure Qualifiers: Chronicity: acute Qualified Code(s): J96.02 - Acute respiratory failure with hypercapnia - Discharge Dispostion Condition at time of disposition: Critical Decision to Admit order: Yes - Referrals - Patient Instructions - Post Discharge Activity - Attestations Physician Attestion: 10/18/17 08:02 I, Dr. Rossi Randall, DO, attest that this document has been prepared under my direction and personally reviewed by me in its entirety. I further attest, that it accurately reflects all work, treatment, procedures and medical decision -making performed by me.
[2017-10-18 08:08] LABS: BASO % 1.2 % (0-2.0); EOS % 0.1 % (0-4.5); HEMOGLOBIN 12.9 GM/dL (10.7-15.3); LYMPH % 2.7 % (8-40); MCH 30.5 pg (25.7-33.7); MEAN CELL VOLUME 92.5 fl (80-96); MEAN PLT VOLUME 8.7 fl (7.5-11.1); MONO % 2.6 % (3.8-10.2); NEUT % 93.4 % (42.8-82.8); PLATELET COUNT 378 K/MM3 (134-434); RBC 4.22 M/mm3 (3.60-5.2); RDW 21.2 % (11.6-15.6); WHITE BLOOD COUNT 8.9 K/mm3 (4.0-10.0)
[2017-10-18 08:41] LABS: VENOUS PC02 42.2 mmHg (38-52); VENOUS PH 7.03 (7.32-7.42)
[2017-10-18 08:42] LABS: VENOUS PO2 26.8 mmHg (28-48)
[2017-10-18] MEDS ORDERED: VANCOMYCIN 1 GRAM (PRE-DOCKED) 1,000 MG/250 ML BAG IVPB ONE (09:12)
[2017-10-18] MEDS ORDERED: CEFEPIME HCL/D5W 2 GM/50 ML BAG IVPB SCH (10:00)
[2017-10-18] MEDS ORDERED: ONDANSETRON 4 MG/2 ML VIAL IVPUSH PRN (10:24)
[2017-10-18] MEDS ORDERED: ACETAMINOPHEN 325 MG TABLET (FP) PO PRN (10:24)
[2017-10-18] MEDS ORDERED: CEFEPIME 2 GM in DEXTROSE 5%-WATER - 100 ML IVPB ONE (10:30)
--- NOTE | 2017-10-18 10:32 | HP ---
Admitting History and Physical - Primary Care Physician PCP: Subhash Mcfarlane - Admission Chief Complaint: I couldn't breathe History of Present Illness: Ms Painting is a very pleasant 67 year old female who comes in with sudden onset shortness of breath. She says she has a lot of sick contacts at home, including her children. She was in her normal state of health until she woke up with acute shortness of breath. She had a non-productive cough associated with it. She had nausea but no vomiting. She denies fevers, chills, lightheadedness, dizziness, chest pain or pressure, diarrhea, constipation, difficulty or pain on urination, or worsening leg swelling. She says the shortness of breath was so severe she immediately came in. She was found to be hypoxic and placed on bipap. Currently she is feeling improved but still acutely short of breath. History Source: Patient Limitations to Obtaining History: No Limitations - Past Medical History Cardiovascular: Yes: HTN. No: AFIB Pulmonary: Yes: COPD, Other (elevated left hemidiaphragm) Gastrointestinal: Yes: Diverticulitis (osteoarthritis right hip). No: Ascites Hepatobiliary: No: Cirrhosis Renal/: Yes: Renal Calculi, UTI, Other (bladder dysfunction). No: Renal Failure Heme/Onc: Yes: Thrombocytopenia (s/p splenectomy), Other (lymphoma -Mantle cell) Psych: Yes: Anxiety, Depression Musculoskeletal: Yes: Chronic low back pain, Osteoarthritis (right hip) Rheumatology: Yes: Other (degenerative spine disease) Endocrine: Yes: Diabetes Mellitus - Past Surgical History Past Surgical History: Yes: Laminectomy (cervical laminectomy x2 (2001)), Splenectomy, Thoracotomy - Smoking History Smoking history: Never smoked Have you smoked in the past 12 months: No Aproximately how many cigarettes per day: 0 If you are a former smoker, when did you quit?: 2001 - Alcohol/Substance Use Hx Alcohol Use: No History of Substance Use: reports: None - Social History Usual Living Arrangement: Yes: With Spouse ADL: Independent 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, , 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 History of Recent Travel: No Home Medications - Allergies Allergies/Adverse Reactions: Allergies Allergy/AdvReac Type Severity Reaction Status Date / Time ciprofloxacin HCl Allergy Intermediate Itching Verified 10/18/17 07:07 [From Cipro] levofloxacin [From Levaquin] Allergy Intermediate Rash Verified 10/18/17 07:07 atorvastatin calcium Allergy Mild muscle Verified 10/18/17 07:07 [From Lipitor] aches - Home Medications Home Medications: Ambulatory Orders Sertraline HCl [Zoloft -] 25 mg PO DAILY 08/28/14 Alprazolam [Xanax] 0.5 mg PO Q8H PRN #0 tablet 09/10/14 Pantoprazole Sodium [Protonix -] 40 mg PO DAILY #0 tablet.ec 09/10/14 Allopurinol [Zyloprim -] 150 mg PO DAILY #60 tablet 04/07/16 Albuterol Sulfate Inhaler - [Ventolin HFA Inhaler -] 1 - 2 inh PO PRN 08/09/16 Docusate Sodium [Colace -] 100 mg PO BID #60 tab-cap 10/29/16 Sitagliptin Phosphate [Januvia] 50 mg PO DAILY 03/18/17 Acetaminophen [Tylenol .Regular Strength -] 650 mg PO PRN 05/26/17 Ascorbic Acid [Vitamin C] 1,000 mg PO DAILY 08/17/17 Ferrous Sulfate 325 mg PO DAILY 08/17/17 Calcium Carbonate - 650 mg PO BID #60 tablet 08/31/17 Morphine *Sr* [MS Contin -] 60 mg PO TID #60 tab.sa MDD 180mg 08/31/17 Morphine Sulfate 15 mg PO QID PRN #30 tablet MDD 60mg 08/31/17 Amlodipine Besylate [Norvasc -] 5 mg PO DAILY #30 tablet 09/25/17 Arformoterol Tartrate [Brovana -] 1 amp NEB RBID #60 amp 09/25/17 Atovaquone [Mepron Oral Solution -] 1,500 mg PO DAILY@0800 #1 bottle 09/25/17 Budesonide/Formeterol Fumarate [SYMBICORT 160/4.5mcg -] 2 puff IH BID #1 inhaler 09/25/17 Glipizide [Glucotrol -] 5 mg PO BIDBL #60 tablet 09/25/17 Metoprolol Tartrate [Lopressor -] 25 mg PO BID #60 tablet 09/25/17 Eltrombopag Olamine [Promacta] 50 mg PO DAILY 10/18/17 Family Disease History - Family Disease History Family Disease History: Diabetes: Mother, Heart Disease: Mother, Other: Father ( thrombocytopenia), Daughter (hypothyroidism) Review of Systems Findings/Remarks: Full review of systems obtained, as per HPI and otherwise negative Physical Examination Vital Signs: Vital Signs Temperature 38.3 C H 10/18/17 07:04 Pulse Rate 110 H 10/18/17 10:03 Respiratory Rate 16 10/18/17 09:53 Blood Pressure 125/54 10/18/17 09:53 O2 Sat by Pulse Oximetry (%) 100 10/18/17 10:08 Constitutional: Yes: No Distress, Calm, Obese Eyes: Yes: Conjunctiva Clear, EOM Intact, PERRL HENT: Yes: Atraumatic, Normocephalic Cardiovascular: Yes: Tachycardia. No: Pulse Irregular, Gallop, Murmur, Rub Respiratory: Yes: On BiPap, Rales, Rhonchi, Tachypnea. No: Regular, CTA Bilaterally, Wheezes Gastrointestinal: Yes: Normal Bowel Sounds, Soft. No: Distention, Tenderness Extremities: Yes: WNL Edema: Yes Edema: LLE: 1+, RLE: 1+ Labs: CBC, BMP 10/18/17 07:56 10/18/17 06:40 Imaging - Results Chest X-ray: Report Reviewed, Image Reviewed Problem List - Problems (1) Acute respiratory failure with hypoxia Assessment/Plan: -secondary to pneumonia -suspect CAP since multiple sick contacts -however with recent hospitalization, have to treat for HCAP -admit to ICU -ID and pulmonary consult -ABx per ID -trial off of bipap Code(s): J96.01 - ACUTE RESPIRATORY FAILURE WITH HYPOXIA (2) HCAP (healthcare-associated pneumonia) Assessment/Plan: -case d/w ID -start on vancomycin, zosyn, and azithromax -monitor for improvement Code(s): J18.9 - PNEUMONIA, UNSPECIFIED ORGANISM (3) CKD (chronic kidney disease) Assessment/Plan: -stable -consult nephro to monitor Code(s): N18.9 - CHRONIC KIDNEY DISEASE, UNSPECIFIED (4) Chronic ITP (idiopathic thrombocytopenia) Assessment/Plan: -consult hematology -continue promacta Code(s): D69.3 - IMMUNE THROMBOCYTOPENIC PURPURA (5) Diabetes mellitus Assessment/Plan: -continue home regimen -diabetic diet -FSBS and SSI Code(s): E11.9 - TYPE 2 DIABETES MELLITUS WITHOUT COMPLICATIONS Qualifiers: Diabetes mellitus type: drug or chemical induced Diabetes mellitus complication status: without complication (6) HTN (hypertension) Assessment/Plan: -continue norvasc and metoprolol -hold parameters Code(s): I10 - ESSENTIAL (PRIMARY) HYPERTENSION Qualifiers: (7) Sepsis Assessment/Plan: -antibiotics as above -gentle hydration and hold lasix Code(s): A41.9 - SEPSIS, UNSPECIFIED ORGANISM
[2017-10-18] MEDS ORDERED: ALBUTEROL SO4 18 GM HFA INHALER IH PRN (11:00)
[2017-10-18 11:20] LABS: ARTERIAL BLD GAS O2 SATURATION 92.9 % (90-98.9); ARTERIAL BLOOD GAS BASE EXCESS 3.2 meq/l (-2-2); ARTERIAL BLOOD GAS PCO2 46.4 mmHg (35-45); ARTERIAL BLOOD GAS PO2 65.3 mmHg (80-100)
[2017-10-18 11:35] LABS: ALLENS TEST POSITIVE
--- NOTE | 2017-10-18 11:51 | EKG ---
Test Reason : Blood Pressure : / mmHG Vent. Rate : 165 BPM Atrial Rate : 165 BPM P-R Int : 122 ms QRS Dur : 082 ms QT Int : 254 ms P-R-T Axes : 065 -49 058 degrees QTc Int : 420 ms POOR DATA QUALITY, INTERPRETATION MAY BE ADVERSELY AFFECTED SINUS TACHYCARDIA WITH OCCASIONAL PREMATURE VENTRICULAR COMPLEXES AND FUSION COMPLEXES LEFT ANTERIOR FASCICULAR BLOCK ABNORMAL ECG WHEN COMPARED WITH ECG OF 30-SEP-2017 16:19, FUSION COMPLEXES ARE NOW PRESENT PREMATURE VENTRICULAR COMPLEXES ARE NOW PRESENT VENT. RATE HAS INCREASED BY 76 BPM Confirmed by SHEKHAR CHRISTINE MD ([id number]) on 10/18/2017 11:50:28 AM Referred By: Confirmed By:SHEKHAR CHRISTINE MD
[2017-10-18] MEDS ORDERED: glipiZIDE 5 MG TABLET (FP) PO SCH (12:00)
--- NOTE | 2017-10-18 12:26 | PN ---
Teaching Attending Note Name of Resident: Danyelle Herbert ATTENDING PHYSICIAN STATEMENT I saw and evaluated the patient. I reviewed the resident's note and discussed the case with the resident. I agree with the resident's findings and plan as documented. SUBJECTIVE: Pt seen and examined in the ICU. Briefly, 67yo female with h/o HTN, DM, CKD, mantle cell lymphoma, recurrent ITP just tapered off steroids yesterday who woke up this AM with shortness of breath and nonproductive cough. No fevers, chills or sweats. Reports multiple sick contacts, no recent travel. No chest pain or chest tightness. No wheezing. Noted to be saturating 73% on NRB on arrival to ER. OBJECTIVE: Last Vital Signs Temp Pulse Resp BP Pulse Ox 98.3 F 105 H 18 113/44 100 10/18/17 12:00 10/18/17 12:00 10/18/17 12:00 10/18/17 12:00 10/18/17 10:08 Intake & Output 10/15/17 10/16/17 10/17/17 10/18/17 23:59 23:59 23:59 23:59 Output Total 300 Balance -300 Weight 115.4 kg Gen: mildly tachypneic at rest Heart: tachycardic, regular Lung: bibasilar rales Abd: soft, nontender Ext: + edema CBC, BMP 10/18/17 07:56 10/18/17 06:40 Active Medications Acetaminophen (Tylenol -) 650 mg PO Q4H PRN PRN Reason: PAIN LEVEL 1-5 Albuterol Sulfate (Ventolin Hfa Inhaler -) 2 puff IH Q6H PRN PRN Reason: SHORTNESS OF BREATH Allopurinol (Zyloprim -) 150 mg PO DAILY [facility] Amlodipine Besylate (Norvasc -) 5 mg PO DAILY [facility] Arformoterol Tartrate (Brovana (Restricted To Pulmonology/Resp) -) 1 amp NEB RBID [facility] Ascorbic Acid (Vitamin C -) 1,000 mg PO DAILY [facility] Atovaquone (Mepron -) 1,500 mg PO DAILY@0800 [facility] Budesonide/Formoterol Fumarate (Symbicort 160/4.5mcg -) 2 puff IH BID [facility] Calcium Carbonate (Calcium Carbonate -) 650 mg PO BID [facility] Chlorhexidine Gluconate (Hibiclens For Decolonization -) 1 applic TP HS [facility] Ferrous Sulfate (Feosol -) 325 mg PO DAILY [facility] Glipizide (Glucotrol -) 5 mg PO BIDBL [facility] Cefepime HCl 2 gm/ Dextrose 100 mls @ 100 mls/hr IVPB Q8H-IV [facility] PRN Reason: Protocol Insulin Aspart (Novolog Vial) 1 units SQ ACHS [facility] PRN Reason: Protocol Metoprolol Tartrate (Lopressor -) 25 mg PO BID [facility] Morphine Sulfate (Ms Contin -) 60 mg PO TID [facility] Morphine Sulfate (Msir -) 15 mg PO QID PRN PRN Reason: breakthrough pain 6-10 Mupirocin (Bactroban Ointment (For Decolonization) -) 1 applic NS BID [facility] Stop: 10/23/17 21:59 Non-Formulary Medication (Eltrombopag Olamine [Promacta]) 50 mg PO DAILY [facility] Ondansetron HCl (Zofran Injection) 4 mg IVPUSH Q6H PRN PRN Reason: NAUSEA Pantoprazole Sodium (Protonix -) 40 mg PO DAILY [facility] Sertraline HCl (Zoloft -) 25 mg PO DAILY [facility] Sitagliptin Phosphate (Januvia -) 50 mg PO DAILY@0700 [facility] ASSESSMENT AND PLAN: Acute Hypoxic and Hypercapneic Respiratory Failure Pneumonia Sepsis Lactic Acidosis Mantle Cell Lymphoma h/o ITP HTN DM CKD - IV antibiotics to cover health care acquired organisms - ID evaluation - f/u cultures - empiric steroids - inhaled bronchodilators standing and PRN - O2 to keep SpO2 >90% - IVF - trend lactate - monitor urine output, creatinine - glucose control while on systemic steroids - DVT prophylaxis - ICU monitoring critical care time spent in reviewing chart, evaluating patient and formulating plan 35 min
[2017-10-18] MEDS: morphine SO4 SUSTAINED ACTING 30 MG TABLET.SA PO SCH ×2 (13:39→22:06)
[2017-10-18] MEDS: methylPREDNISolone NA SUCC 40 MG/1 ML VIAL IVPUSH SCH ×2 (13:40→18:03)
--- NOTE | 2017-10-18 13:49 | PN ---
Progress Note (short form) - Note Progress Note: ID consult dictated imp/reccd 67 year old female
--- NOTE | 2017-10-18 14:03 | PN ---
Progress Note (short form) - Note Progress Note: ID consult dictated imp/reccd 67 year old female pmh mantle cell lymphoma, ITP, s/p splenectomy recent admission in September for thrombocytopenia and hematuria treated with rituxan, steroids, and IVIG placed on Mepron for PCP prophylaxis due to her CKD has been well since discharge completed steroid taper yesterday- last dose prednisone no hematuria denies cough- no hemoptysis no diarrhea no dysuria no travel +sick contacts- graddaughter with cough, signifcant other seen in ED on Monday and given steroids/antibiotics developed SOB this am acute fever to 100.9 in ER hypoxia bilateral lower lobe infiltrates acute hypercapneic/hypoxemic respiratory failure pneumonia immunocompromised patient CKD quinolone allergy needs coverage for HAP and atypicals acute nature c/w bacterial pneumonia blood cultures urinary antigens for pneumonia sputum culture vancomycin, zosyn, zithromax, received ceftriaxone in September follow vanco levels and redose one gram when less then 15 continue PCP prophylaxis icu monitoring over 40 minutes spent in the care of this critically ill ICU patient Problem List - Problems (1) Respiratory failure with hypoxia and hypercapnia Code(s): J96.91 - RESPIRATORY FAILURE, UNSPECIFIED WITH HYPOXIA; J96.92 - RESPIRATORY FAILURE, UNSPECIFIED WITH HYPERCAPNIA (2) Pneumonia Code(s): J18.9 - PNEUMONIA, UNSPECIFIED ORGANISM (3) History of immunocompromised state Code(s): Z86.2 - PRSNL HISTORY OF DIS OF THE BLD/BLD-FORM ORG/IMMUN MECHNSM (4) CKD (chronic kidney disease) Code(s): N18.9 - CHRONIC KIDNEY DISEASE, UNSPECIFIED
--- NOTE | 2017-10-18 14:29 | CONSULT ---
Consultation: HISTORY OF PRESENT ILLNESS: 66 year old female with a PMH of HTN, NIDDM, ITP (s/p splenectomy), diverticulitis, recurrent UTI's, and mantle cell lymphoma who presented to the ED earlier this morning c/o cough. In ED patient found to be hypoxic to SpO2 70 's and febrile. Admitted to ICU for SIRS 2/4 with source of infection pending. REVIEW OF SYSTEMS: CONSTITUTIONAL: Absent: fever, chills, diaphoresis, generalized weakness, malaise, loss of appetite, weight change HEENT: cough Absent: rhinorrhea, nasal congestion, throat pain, throat swelling, difficulty swallowing, mouth swelling, ear pain, eye pain, visual changes CARDIOVASCULAR: Absent: chest pain, syncope, palpitations, irregular heart rate, lightheadedness , peripheral edema RESPIRATORY: Absent: cough, shortness of breath, dyspnea with exertion, orthopnea, wheezing, stridor, hemoptysis GASTROINTESTINAL: Absent: abdominal pain, abdominal distension, nausea, vomiting, diarrhea, constipation, melena, hematochezia GENITOURINARY: Absent: dysuria, frequency, urgency, hesitancy, hematuria, flank pain, genital pain MUSCULOSKELETAL: Absent: myalgia, arthralgia, joint swelling, back pain, neck pain SKIN: Absent: rash, itching, pallor HEMATOLOGIC/IMMUNOLOGIC: Absent: easy bleeding, easy bruising, lymphadenopathy, frequent infections ENDOCRINE: Absent: unexplained weight gain, unexplained weight loss, heat intolerance, cold intolerance NEUROLOGIC: Absent: headache, focal weakness or paresthesias, dizziness, unsteady gait, seizure, mental status changes, bladder or bowel incontinence PSYCHIATRIC: Absent: anxiety, depression, suicidal or homicidal ideation, hallucinations. PHYSICAL EXAMINATION Vital Signs - 24 hr 10/18/17 10/18/17 10/18/17 06:24 06:35 07:04 Temperature 100.9 F H Pulse Rate 151 H Pulse Rate [ Left Apical] Respiratory 26 H Rate Blood Pressure 170/100 Blood Pressure [Left Arm] O2 Sat by Pulse 100 97 88 L Oximetry (%) 10/18/17 10/18/17 10/18/17 08:14 09:45 09:53 Temperature Pulse Rate Pulse Rate [ 119 H 108 H Left Apical] Respiratory 22 16 Rate Blood Pressure Blood Pressure 122/56 125/54 [Left Arm] O2 Sat by Pulse 100 93 L 100 Oximetry (%) 10/18/17 10/18/17 10/18/17 10:03 10:08 11:18 Temperature 98.3 F Pulse Rate 110 H 112 H Pulse Rate [ Left Apical] Respiratory 24 Rate Blood Pressure 135/63 Blood Pressure [Left Arm] O2 Sat by Pulse 96 100 Oximetry (%) 10/18/17 12:00 Temperature 98.3 F Pulse Rate 105 H Pulse Rate [ Left Apical] Respiratory 18 Rate Blood Pressure 113/44 Blood Pressure [Left Arm] O2 Sat by Pulse Oximetry (%) General: awake, alert, A&O x3 Respiratory: B/L wheezes, non-labored respirations CV: S1/S2 ascultated, RRR Abdomen: soft, no TTP, (+) bowel sounds Extremities: B/L LE non-pitting edema Laboratory Results - last 24 hr 10/18/17 10/18/17 10/18/17 06:40 06:40 07:09 WBC Cancelled Corrected WBC (auto) Cancelled RBC Cancelled Hgb Cancelled Hct Cancelled MCV Cancelled MCH Cancelled MCHC Cancelled RDW Cancelled Plt Count Cancelled MPV Cancelled Neutrophils % Cancelled Lymphocytes % Cancelled Monocytes % Cancelled Eosinophils % Cancelled Basophils % Cancelled Nucleated RBC % Cancelled Platelet Estimate Cancelled Platelet Comment Cancelled Puncture Site ABG pH ABG pCO2 at Pt Temp ABG pO2 at Pt Temp ABG HCO3 ABG O2 Sat (Measured) ABG O2 Content ABG Base Excess Sanket Test VBG pH 6.71 L* POC VBG pCO2 75.2 H* POC VBG pO2 83.6 H Mixed VBG HCO3 9.0 L* O2 Delivery Device Oxygen Flow Rate Mechanical Rate PEEP Sodium 137 Potassium 4.9 Chloride 98 Carbon Dioxide 28 Anion Gap 11 BUN 29 H Creatinine 2.0 H Creat Clearance w eGFR 24.85 Random Glucose 168 H Lactic Acid Calcium 8.6 Total Bilirubin 0.4 D AST 23 ALT 18 Alkaline Phosphatase 86 Creatine Kinase 36 Troponin I < 0.02 B-Natriuretic Peptide 376.96 H Total Protein 7.6 Albumin 2.9 L Urine Color Urine Appearance Urine pH Ur Specific T[place] Urine Protein Urine Glucose (UA) Urine Ketones Urine Blood Urine Nitrite Urine Bilirubin Urine Urobilinogen Ur Leukocyte Esterase Urine WBC (Auto) Urine RBC (Auto) Ur Epithelial Cells Urine Bacteria Urine Mucus 10/18/17 10/18/17 10/18/17 07:09 07:09 07:56 WBC 8.9 D Corrected WBC (auto) RBC 4.22 Hgb 12.9 D Hct 39.0 D MCV 92.5 MCH 30.5 MCHC 33.0 RDW 21.2 H D Plt Count 378 D MPV 8.7 Neutrophils % 93.4 H D Lymphocytes % 2.7 L D Monocytes % 2.6 L Eosinophils % 0.1 Basophils % 1.2 D Nucleated RBC % Platelet Estimate Platelet Comment Puncture Site ABG pH ABG pCO2 at Pt Temp ABG pO2 at Pt Temp ABG HCO3 ABG O2 Sat (Measured) ABG O2 Content ABG Base Excess Sanket Test VBG pH POC VBG pCO2 POC VBG pO2 Mixed VBG HCO3 O2 Delivery Device Oxygen Flow Rate Mechanical Rate PEEP Sodium Potassium Chloride Carbon Dioxide Anion Gap BUN Creatinine Creat Clearance w eGFR Random Glucose Lactic Acid 2.8 H* Calcium Total Bilirubin AST ALT Alkaline Phosphatase Creatine Kinase Troponin I B-Natriuretic Peptide Total Protein Albumin Urine Color Ltyellow Urine Appearance Slcloudy Urine pH 5.0 D Ur Specific [place] 1.012 Urine Protein 2+ H Urine Glucose (UA) 1+ H Urine Ketones Negative Urine Blood 2+ H Urine Nitrite Negative Urine Bilirubin Negative Urine Urobilinogen Negative Ur Leukocyte Esterase Negative Urine WBC (Auto) 5 Urine RBC (Auto) 35 Ur Epithelial Cells Rare Urine Bacteria Moderate Urine Mucus Rare 10/18/17 10/18/17 10/18/17 07:56 08:12 10:10 WBC Corrected WBC (auto) RBC Hgb Hct MCV MCH MCHC RDW Plt Count MPV Neutrophils % Lymphocytes % Monocytes % Eosinophils % Basophils % Nucleated RBC % Platelet Estimate Platelet Comment Puncture Site ABG pH ABG pCO2 at Pt Temp ABG pO2 at Pt Temp ABG HCO3 ABG O2 Sat (Measured) ABG O2 Content ABG Base Excess Sanket Test VBG pH Cancelled 7.03 L* D POC VBG pCO2 Cancelled 42.2 D POC VBG pO2 Cancelled 26.8 L D Mixed VBG HCO3 Cancelled 10.7 L* O2 Delivery Device Oxygen Flow Rate Mechanical Rate PEEP Sodium Potassium Chloride Carbon Dioxide Anion Gap BUN Creatinine Creat Clearance w eGFR Random Glucose Lactic Acid 2.8 H* Calcium Total Bilirubin AST ALT Alkaline Phosphatase Creatine Kinase Troponin I B-Natriuretic Peptide Total Protein Albumin Urine Color Urine Appearance Urine pH Ur Specific [place] Urine Protein Urine Glucose (UA) Urine Ketones Urine Blood Urine Nitrite Urine Bilirubin Urine Urobilinogen Ur Leukocyte Esterase Urine WBC (Auto) Urine RBC (Auto) Ur Epithelial Cells Urine Bacteria Urine Mucus 10/18/17 10:45 WBC Corrected WBC (auto) RBC Hgb Hct MCV MCH MCHC RDW Plt Count MPV Neutrophils % Lymphocytes % Monocytes % Eosinophils % Basophils % Nucleated RBC % Platelet Estimate Platelet Comment Puncture Site Right radial ABG pH 7.40 ABG pCO2 at Pt Temp 46.4 H ABG pO2 at Pt Temp 65.3 L ABG HCO3 28.1 H ABG O2 Sat (Measured) 92.9 ABG O2 Content 14.9 L ABG Base Excess 3.2 H Sanket Test Positive VBG pH POC VBG pCO2 POC VBG pO2 Mixed VBG HCO3 O2 Delivery Device Nasal cannula Oxygen Flow Rate 4l Mechanical Rate No PEEP 0.0 Sodium Potassium Chloride Carbon Dioxide Anion Gap BUN Creatinine Creat Clearance w eGFR Random Glucose Lactic Acid Calcium Total Bilirubin AST ALT Alkaline Phosphatase Creatine Kinase Troponin I B-Natriuretic Peptide Total Protein Albumin Urine Color Urine Appearance Urine pH Ur Specific [place] Urine Protein Urine Glucose (UA) Urine Ketones Urine Blood Urine Nitrite Urine Bilirubin Urine Urobilinogen Ur Leukocyte Esterase Urine WBC (Auto) Urine RBC (Auto) Ur Epithelial Cells Urine Bacteria Urine Mucus Active Medications Generic Name Dose Route Start Last Admin Trade Name Freq PRN Reason Stop Dose Admin Acetaminophen 650 mg 10/18/17 10:24 Tylenol - PO Q4H PRN PAIN LEVEL 1-5 Albuterol Sulfate 2 puff 10/18/17 11:00 Ventolin Hfa Inhaler - IH Q6H PRN SHORTNESS OF BREATH Allopurinol 150 mg 10/19/17 10:00 Zyloprim - PO DAILY [facility] Amlodipine Besylate 5 mg 10/19/17 10:00 Norvasc - PO DAILY [facility] Arformoterol Tartrate 1 amp 10/18/17 20:00 Brovana (Restricted To Pulmonology/Resp) - NEB RBID [facility] Ascorbic Acid 1,000 mg 10/19/17 10:00 Vitamin C - PO DAILY [facility] Atovaquone 1,500 mg 10/19/17 08:00 Mepron - PO DAILY@0800 [facility] Budesonide/Formoterol Fumarate 2 puff 10/18/17 22:00 Symbicort 160/4.5mcg - IH BID [facility] Calcium Carbonate 650 mg 10/18/17 22:00 Calcium Carbonate - PO BID [facility] Chlorhexidine Gluconate 1 applic 10/18/17 22:00 Hibiclens For Decolonization - TP HS [facility] Ferrous Sulfate 325 mg 10/19/17 10:00 Feosol - PO DAILY [facility] Glipizide 5 mg 10/18/17 16:30 Glucotrol - PO BIDAC [facility] Azithromycin 500 mg/ Dextrose 250 mls @ 250 mls/hr 10/18/17 14:30 IVPB DAILY [facility] Piperacillin Sod/Tazobactam 100 mls @ 200 mls/hr 10/18/17 18:00 Sod 4.5 gm/ Dextrose IVPB Q8H-IV [facility] Protocol Insulin Aspart 1 vial 10/18/17 16:30 Novolog Vial Sliding Scale - SQ ACHS [facility] Protocol Methylprednisolone Sodium Succinate 40 mg 10/18/17 12:30 10/18/17 13:40 Solu-Medrol - IVPUSH 40 mg Q8H-IV [facility] Administration Metoprolol Tartrate 25 mg 10/18/17 22:00 Lopressor - PO BID [facility] Morphine Sulfate 60 mg 10/18/17 14:00 10/18/17 13:39 Ms Contin - PO 60 mg TID [facility] Administration Morphine Sulfate 15 mg 10/18/17 10:57 Msir - PO QID PRN breakthrough pain 6-10 Mupirocin 1 applic 10/18/17 22:00 Bactroban Ointment (For Decolonization) - NS 10/23/17 21:59 BID [facility] Non-Formulary Medication 50 mg 10/19/17 10:00 Eltrombopag Olamine [Promacta] PO DAILY [facility] Pantoprazole Sodium 40 mg 10/19/17 10:00 Protonix - PO DAILY [facility] Sertraline HCl 25 mg 10/19/17 10:00 Zoloft - PO DAILY [facility] Sitagliptin Phosphate 50 mg 10/19/17 07:00 Januvia - PO DAILY@0700 [facility] ASSESSMENT/PLAN: 66 year old female with a PMH of HTN, NIDDM, ITP (s/p splenectomy), diverticulitis, recurrent UTI's, and mantle cell lymphoma who presented to the ED earlier this morning c/o cough. In ED patient found to be hypoxic to SpO2 70 's and febrile. Admitted to ICU for sepsis. 1. ACUTE HYPOXIC AND HYPERCAPNEIC RESPIRATORY FAILURE - SpO2 70's @ presentation - VB.71/75.2/83.6/9.0 @ presentation - AB.4/46/4/65/3/28.1 - Repeat ABG in a.m. - Monitor O2 to keep SpO2 > 90% 2. SEPSIS - Hypoxic and febrile @ presentation w/source bacterial PNA - Lactic Acid 2.8 x2 - Trend lactate - IV NS - Monitor O2 to keep SpO2 > 90% 3. HCAP - B/L lower lobe infiltrates on CXR - Admission in 09/2017 for thrombocytopenia likely 2/2 to ITP - Will treat for HCAP + Atypicals given patient's IC w/Vanc, Zosyn, Zithromax - renal dosing (Vanc level pending) 4. CKD - 2.0 Cr/20 BUN stable, c/w 09/2017 admission - Continue to monitor Cr and UOP 5. NIDDM - Monitor BS, especially in light of recent predisone use 6. H/O ITP - Platelets 378, <-- 190 in 09/30/17 -Continue to monitor FEN - Continue to monitor - Renal Diet Prophylaxis - DVT prophylaxis not indicated 2/2 to ITP - GI prophylaxis not indicated as per patient's clinical presentation Visit type - Emergency Visit Emergency Visit: No - New Patient This patient is new to me today: Yes Date on this admission: 10/19/17 - Critical Care Critical Care patient: No
[2017-10-18] MEDS ORDERED: PT OWN MED DRAWER 7, Y5N ONE ×3 (15:49→22:03)
[2017-10-18] MEDS: AZITHROMYCIN IVPB 500 MG in DEXTROSE 5%-WATER - 250 ML IVPB SCH (16:07)
[2017-10-18] MEDS ORDERED: INSULIN SLIDING SCALE (NOVOLOG) 1 VIAL SQ SCH (16:30)
--- NOTE | 2017-10-18 17:23 | CONSULT ---
Consult - text type - Consultation Consultation Note: Renal Consult for CKD This is a 67 year old woman with PMhx of CKD, Mantle Cell Lymphoma, ITP, IDDM, Hypertension, chronic hydronephorosis who presents with SOB and cough and found to be hypoxic in setting of PNA with Cr of 2. Cr was 1.9 when last discharged. Pt reports SOB occured over 1 day at home. Pt reports dome decreased urine output but no flank pain. No N/V/D. + Fever in the ED. No NSAID use or contrast exposure. PMHx: as above Allergies: NKDA Family Hx: NC Social hx: NO T/A/D ROS: as per HPI Home Meds: Home Medications Medication Instructions Recorded Sertraline HCl [Zoloft -] 25 mg PO DAILY 08/28/14 Alprazolam [Xanax] 0.5 mg PO Q8H PRN #0 tablet 09/10/14 Pantoprazole Sodium [Protonix -] 40 mg PO DAILY #0 tablet.ec 09/10/14 Allopurinol [Zyloprim -] 150 mg PO DAILY #60 tablet 04/07/16 Albuterol Sulfate Inhaler - 1 - 2 inh PO PRN 08/09/16 [Ventolin HFA Inhaler -] Docusate Sodium [Colace -] 100 mg PO BID #60 tab-cap 10/29/16 Sitagliptin Phosphate [Januvia] 50 mg PO DAILY 03/18/17 Acetaminophen [Tylenol .Regular 650 mg PO PRN 05/26/17 Strength -] Ascorbic Acid [Vitamin C] 1,000 mg PO DAILY 08/17/17 Ferrous Sulfate 325 mg PO DAILY 08/17/17 Calcium Carbonate - 650 mg PO BID #60 tablet 08/31/17 Morphine *Sr* [MS Contin -] 60 mg PO TID #60 tab.sa MDD 180mg 08/31/17 Morphine Sulfate 15 mg PO QID PRN #30 tablet MDD 08/31/17 60mg Amlodipine Besylate [Norvasc -] 5 mg PO DAILY #30 tablet 09/25/17 Arformoterol Tartrate [Brovana -] 1 amp NEB RBID #60 amp 09/25/17 Atovaquone [Mepron Oral Solution -] 1,500 mg PO DAILY@0800 #1 bottle 09/25/17 Budesonide/Formeterol Fumarate 2 puff IH BID #1 inhaler 09/25/17 [SYMBICORT 160/4.5mcg -] Glipizide [Glucotrol -] 5 mg PO BIDBL #60 tablet 09/25/17 Metoprolol Tartrate [Lopressor -] 25 mg PO BID #60 tablet 09/25/17 Eltrombopag Olamine [Promacta] 50 mg PO DAILY 10/18/17 Vital Signs Temperature 98.4 F 10/18/17 17:15 Pulse Rate 85 10/18/17 17:15 Respiratory Rate 20 10/18/17 17:15 Blood Pressure 148/68 10/18/17 17:15 O2 Sat by Pulse Oximetry (%) 100 10/18/17 10:08 Intake & Output 10/15/17 10/16/17 10/17/17 10/18/17 23:59 23:59 23:59 23:59 Intake Total 300 Output Total 1600 Balance -1300 Weight 115.4 kg NAD awake and alert MMM, No JVD RRR, No M/R + rales b/l lung julian soft NT/ND 1+ LE edema no cyanosis no focal neurologic defects CBC, BMP 10/18/17 07:56 10/18/17 06:40 Current Medications Acetaminophen (Tylenol -) 650 mg PO Q4H PRN PRN Reason: PAIN LEVEL 1-5 Albuterol Sulfate (Ventolin Hfa Inhaler -) 2 puff IH Q6H PRN PRN Reason: SHORTNESS OF BREATH Allopurinol (Zyloprim -) 150 mg PO DAILY [facility] Amlodipine Besylate (Norvasc -) 5 mg PO DAILY [facility] Arformoterol Tartrate (Brovana (Restricted To Pulmonology/Resp) -) 1 amp NEB RBID [facility] Ascorbic Acid (Vitamin C -) 1,000 mg PO DAILY [facility] Atovaquone (Mepron -) 1,500 mg PO DAILY@0800 [facility] Budesonide/Formoterol Fumarate (Symbicort 160/4.5mcg -) 2 puff IH BID [facility] Calcium Carbonate (Calcium Carbonate -) 650 mg PO BID [facility] Chlorhexidine Gluconate (Hibiclens For Decolonization -) 1 applic TP HS [facility] Ferrous Sulfate (Feosol -) 325 mg PO DAILY [facility] Glipizide (Glucotrol -) 5 mg PO BIDAC [facility] Azithromycin 500 mg/ Dextrose 250 mls @ 250 mls/hr IVPB DAILY [facility] Last Admin: 10/18/17 16:07 Dose: 250 mls/hr Piperacillin Sod/Tazobactam (Sod 4.5 gm/ Dextrose) 100 mls @ 200 mls/hr IVPB Q8H-IV [facility] PRN Reason: Protocol Insulin Aspart (Novolog Vial Sliding Scale -) 1 vial SQ ACHS [facility] PRN Reason: Protocol Methylprednisolone Sodium Succinate (Solu-Medrol -) 40 mg IVPUSH Q8H-IV [facility] Last Admin: 10/18/17 13:40 Dose: 40 mg Metoprolol Tartrate (Lopressor -) 25 mg PO BID [facility] Morphine Sulfate (Ms Contin -) 60 mg PO TID [facility] Last Admin: 10/18/17 13:39 Dose: 60 mg Morphine Sulfate (Msir -) 15 mg PO QID PRN PRN Reason: breakthrough pain 6-10 Mupirocin (Bactroban Ointment (For Decolonization) -) 1 applic NS BID [facility] Stop: 10/23/17 21:59 Non-Formulary Medication (Eltrombopag Olamine [Promacta]) 50 mg PO DAILY [facility] Pantoprazole Sodium (Protonix -) 40 mg PO DAILY [facility] Sertraline HCl (Zoloft -) 25 mg PO DAILY [facility] Sitagliptin Phosphate (Januvia -) 50 mg PO DAILY@0700 [facility] 67 year old woman with PMhx of CKD, Mantle Cell Lymphoma, ITP, IDDM, Hypertension, chronic hydronephorosis who presents with SOB and cough and found to be hypoxic in setting of PNA with Cr of 2. #CKD Stage 3 #ITP #Hx of Mantle Cell Lymphoma #Sepsis/PNA #Hx of Hydronephrosis Renal function stable at this time Trend BUN/Cr while inpatient Abx as per ID dosed for renal function Can given PRN Lasix if there is worsening LE edema or if there are signs of pleural effusions Plt counts stable Thank you Will follow Dash Padron DO
[2017-10-18] MEDS ORDERED: SODIUM CHLORIDE 1,000 ML IV SCH ×2 (17:45)
[2017-10-18] MEDS ORDERED: DEXTROSE 5%-WATER 100 ML IVPB ONE ×2 (17:49→22:04)
[2017-10-18] MEDS ORDERED: PIPERACILLIN/TAZOBACTAM 4.5 GM VIAL IVPB ONE ×2 (17:49→22:04)
[2017-10-18] MEDS: PIPERACILLIN/TAZOB 4.5 GM 4.5 GM in DEXTROSE 5%-WATER 100 ML IVPB SCH (17:50)
--- NOTE | 2017-10-18 17:51 | PN ---
Progress Note (short form) - Note Progress Note: ICU Evening Resident. Lactic acid trending up. -- Was not on IVF jourdan. Received boluses and Lasix 60mg IV in the AM for possible ?overload. Patient does not have hx of CHF, normal echo 2 mo ago. + bibasilar crackles (?from PNA). +BLLE edema (chronic from steroids as per pt). However, CXR does show some increased congestion. Started GENTLE hydration IV ns 75cc/hr. Through the night she developed few crackles. Ordered IV Lasix 20 and stopped fluids. Vanc level <10 -- Ordered extra 1g Khalif ram
--- NOTE | 2017-10-18 17:55 | PN ---
Progress Note (short form) - Note Progress Note: ms. hubbard is admitted to ICU overnight for acute hypoxic resp failure. She was critically ill, was on BiPAP, febrile, she was transferred to the ICU. Patient seen and examined. chart reviewed in detail. Now more improved than the am. O/E: Gen: NAD, on Oxygen now HEENt: NCAT Cor: RRR Lungs: decreased at bases, left lung with crackles Abd: BS+ Neuro: AAOx3 Le: no edema Last Vital Signs Temp Pulse Resp BP Pulse Ox 98.4 F 85 20 148/68 100 10/18/17 17:15 10/18/17 17:15 10/18/17 17:15 10/18/17 17:15 10/18/17 10:08 CBC, BMP 10/18/17 07:56 10/18/17 06:40 Current Medications Generic Name Dose Route Start Last Admin Trade Name Freq PRN Reason Stop Dose Admin Acetaminophen 650 mg 10/18/17 10:24 Tylenol - PO Q4H PRN PAIN LEVEL 1-5 Albuterol Sulfate 2 puff 10/18/17 11:00 Ventolin Hfa Inhaler - IH Q6H PRN SHORTNESS OF BREATH Allopurinol 150 mg 10/19/17 10:00 Zyloprim - PO DAILY [facility] Amlodipine Besylate 5 mg 10/19/17 10:00 Norvasc - PO DAILY [facility] Arformoterol Tartrate 1 amp 10/18/17 20:00 Brovana (Restricted To Pulmonology/Resp) - NEB RBID [facility] Ascorbic Acid 1,000 mg 10/19/17 10:00 Vitamin C - PO DAILY [facility] Atovaquone 1,500 mg 10/19/17 08:00 Mepron - PO DAILY@0800 [facility] Budesonide/Formoterol Fumarate 2 puff 10/18/17 22:00 Symbicort 160/4.5mcg - IH BID [facility] Calcium Carbonate 650 mg 10/18/17 22:00 Calcium Carbonate - PO BID [facility] Chlorhexidine Gluconate 1 applic 10/18/17 22:00 Hibiclens For Decolonization - TP HS [facility] Ferrous Sulfate 325 mg 10/19/17 10:00 Feosol - PO DAILY [facility] Glipizide 5 mg 10/18/17 16:30 Glucotrol - PO BIDAC [facility] Azithromycin 500 mg/ Dextrose 250 mls @ 250 mls/hr 10/18/17 14:30 10/18/17 16 :07 IVPB 250 mls/hr DAILY [facility] Administration Piperacillin Sod/Tazobactam 100 mls @ 200 mls/hr 10/18/17 18:00 10/18/17 17: 50 Sod 4.5 gm/ Dextrose IVPB 200 mls/hr Q8H-IV [facility] Administration Protocol Sodium Chloride 1,000 mls @ 75 mls/hr 10/18/17 17:45 Normal Saline - IV ASDIR [facility] Insulin Aspart 1 vial 10/18/17 16:30 Novolog Vial Sliding Scale - SQ ACHS [facility] Protocol Methylprednisolone Sodium Succinate 40 mg 10/18/17 12:30 10/18/17 13:40 Solu-Medrol - IVPUSH 40 mg Q8H-IV [facility] Administration Metoprolol Tartrate 25 mg 10/18/17 22:00 Lopressor - PO BID [facility] Morphine Sulfate 60 mg 10/18/17 14:00 10/18/17 13:39 Ms Contin - PO 60 mg TID [facility] Administration Morphine Sulfate 15 mg 10/18/17 10:57 Msir - PO QID PRN breakthrough pain 6-10 Mupirocin 1 applic 10/18/17 22:00 Bactroban Ointment (For Decolonization) - NS 10/23/17 21:59 BID [facility] Non-Formulary Medication 50 mg 10/19/17 10:00 Eltrombopag Olamine [Promacta] PO DAILY [facility] Pantoprazole Sodium 40 mg 10/19/17 10:00 Protonix - PO DAILY [facility] Sertraline HCl 25 mg 10/19/17 10:00 Zoloft - PO DAILY [facility] Sitagliptin Phosphate 50 mg 10/19/17 07:00 Januvia - PO DAILY@0700 [facility] Acute Hypoxic respiratory failure PNA Refractory ITP, most recently on promacta Mantle cell lymphoma (minimal involvement in the marrow and peripheral blood ) ARLETTE/CKD Pt started Promacta(a TPO-mimetic) for her ITP 4 days ago. Stopped steroids. Now admitted with PNA. Though, the promacta's adverse events are reported to cause pulm symptoms, but in her its less likely, she only used for 4days, presentation most consistent with PNA ( splenectomized, immunocompromised, + sick contacts) Will hold promacta while in-house, daily cbc, will monitor platelets. Pt improving, US negative for DVT studies, if worsening resp status, if possible (renal issues) we need to eval for CTA. Now on steroids for resp failure , taper per pulm. ID f.u noted, on broad spectrum abx, mepron to be continued. d.c allopurinol for now , no indication for lymphoma, and also Cr of 2.0 d.w pt and daughter
[2017-10-18] MEDS ORDERED: CEFEPIME 2 GM in DEXTROSE 5%-WATER 100 ML IVPB SCH (18:00)
[2017-10-18] MEDS ORDERED: INSULIN (NOVOLOG) ASPART 100 UNITS/ML 10ML VIAL SQ ONE (18:01)
[2017-10-18] MEDS: INSULIN SLIDING SCALE (NOVOLOG) 1 VIAL SQ SCH ×2 (18:10→22:15)
[2017-10-18] MEDS: glipiZIDE 5 MG TABLET (FP) PO SCH (19:21)
[2017-10-18] MEDS: ARFORMOTEROL TARTRATE 15 MCG/2 ML VIAL NEB SCH (21:00)
[2017-10-18] MEDS: METOPROLOL TARTRATE 25 MG TABLET (FP) PO SCH (22:06)
[2017-10-18] MEDS: ALPRAZolam 0.25 MG TABLET PO PRN (22:06)
[2017-10-18] MEDS: ATOVAQUONE 750 MG/5 ML (UNIT-DOSE PACKAGING) PO SCH (22:07)
[2017-10-18] MEDS: MUPIROCIN 2% TOPICAL OINTMENT FOR DECOLONIZATION NS SCH (22:07)
[2017-10-18] MEDS: CHLORHEXIDINE GLUCONATE 4% CLEANSER FOR DECOLONIZATION TP SCH (22:08)
[2017-10-18] MEDS: CALCIUM CARBONATE 650 MG TABLET PO SCH (23:18)
[2017-10-18] MEDS: BUDESONIDE/FORMETEROL FUMARATE 160/4.5 mcg INHALER IH SCH (23:19)
[2017-10-19] MEDS: methylPREDNISolone NA SUCC 40 MG/1 ML VIAL IVPUSH SCH ×3 (02:00→17:19)
[2017-10-19] MEDS: PIPERACILLIN/TAZOB 4.5 GM 4.5 GM in DEXTROSE 5%-WATER 100 ML IVPB SCH ×3 (02:35→17:18)
[2017-10-19] MEDS ORDERED: PT OWN MED DRAWER 7, Y5N ONE ×4 (05:54→22:24)
[2017-10-19] MEDS: morphine SO4 SUSTAINED ACTING 30 MG TABLET.SA PO SCH ×3 (05:57→21:37)
[2017-10-19] MEDS: INSULIN SLIDING SCALE (NOVOLOG) 1 VIAL SQ SCH ×4 (06:02→21:37)
[2017-10-19] MEDS: glipiZIDE 5 MG TABLET (FP) PO SCH ×2 (06:02→17:17)
[2017-10-19 06:52] LABS: HEMATOCRIT 32.8 % (32.4-45.2); HEMOGLOBIN 10.6 GM/dL (10.7-15.3); MCH 29.5 pg (25.7-33.7); MCHC 32.3 g/dl (32.0-36.0); MEAN CELL VOLUME 91.2 fl (80-96); PLATELET COUNT 375 K/MM3 (134-434); RDW 21.1 % (11.6-15.6); WHITE BLOOD COUNT 29.5 K/mm3 (4.0-10.0)
[2017-10-19 06:54] LABS: ADD RBC MORPHOLOGY YES
[2017-10-19] MEDS ORDERED: sitaGLIPtin PHOSPHATE 50 MG TABLET PO SCH (07:00)
--- NOTE | 2017-10-19 07:05 | PN ---
Progress Note, Physician Chief Complaint: ID Vik is dramatically better today and while she experiences SOB when she moves around in bed overall she is much better She no longer has fever and has no chills couph hemoptysis or other complaints Antibiotics Janak Du Hematology note seen with interest - Current Medication List Current Medications: Active Medications Acetaminophen (Tylenol -) 650 mg PO Q4H PRN PRN Reason: PAIN LEVEL 1-5 Albuterol Sulfate (Ventolin Hfa Inhaler -) 2 puff IH Q6H PRN PRN Reason: SHORTNESS OF BREATH Alprazolam (Xanax -) 0.5 mg PO Q8H PRN PRN Reason: ANXIETY Last Admin: 10/18/17 22:06 Dose: 0.5 mg Amlodipine Besylate (Norvasc -) 5 mg PO DAILY [facility] Arformoterol Tartrate (Brovana (Restricted To Pulmonology/Resp) -) 1 amp NEB RBID [facility] Last Admin: 10/18/17 21:00 Dose: 1 amp Ascorbic Acid (Vitamin C -) 1,000 mg PO DAILY [facility] Atovaquone (Mepron -) 1,500 mg PO DAILY@1900 [facility] Last Admin: 10/18/17 22:07 Dose: 1,500 mg Budesonide/Formoterol Fumarate (Symbicort 160/4.5mcg -) 2 puff IH BID [facility] Last Admin: 10/18/17 23:19 Dose: 2 puff Calcium Carbonate (Calcium Carbonate -) 650 mg PO BID [facility] Last Admin: 10/18/17 23:18 Dose: 650 mg Chlorhexidine Gluconate (Hibiclens For Decolonization -) 1 applic TP HS [facility] Last Admin: 10/18/17 22:08 Dose: 1 applic Ferrous Sulfate (Feosol -) 325 mg PO DAILY [facility] Glipizide (Glucotrol -) 5 mg PO BIDAC [facility] Last Admin: 10/19/17 06:02 Dose: 5 mg Azithromycin 500 mg/ Dextrose 250 mls @ 250 mls/hr IVPB DAILY [facility] Last Admin: 10/18/17 16:07 Dose: 250 mls/hr Piperacillin Sod/Tazobactam (Sod 4.5 gm/ Dextrose) 100 mls @ 200 mls/hr IVPB Q8H-IV [facility] PRN Reason: Protocol Last Admin: 10/19/17 02:35 Dose: 200 mls/hr Insulin Aspart (Novolog Vial Sliding Scale -) 1 vial SQ ACHS [facility] PRN Reason: Protocol Last Admin: 10/19/17 06:02 Dose: Not Given Methylprednisolone Sodium Succinate (Solu-Medrol -) 40 mg IVPUSH Q8H-IV [facility] Last Admin: 10/19/17 02:00 Dose: 40 mg Metoprolol Tartrate (Lopressor -) 25 mg PO BID [facility] Last Admin: 10/18/17 22:06 Dose: 25 mg Morphine Sulfate (Ms Contin -) 60 mg PO TID [facility] Last Admin: 10/19/17 05:57 Dose: 60 mg Morphine Sulfate (Msir -) 15 mg PO QID PRN PRN Reason: breakthrough pain 6-10 Mupirocin (Bactroban Ointment (For Decolonization) -) 1 applic NS BID [facility] Stop: 10/23/17 21:59 Last Admin: 10/18/17 22:07 Dose: 1 applic Non-Formulary Medication (Eltrombopag Olamine [Promacta]) 50 mg PO DAILY [facility] Pantoprazole Sodium (Protonix -) 40 mg PO DAILY [facility] Sertraline HCl (Zoloft -) 25 mg PO DAILY [facility] Sitagliptin Phosphate (Januvia -) 50 mg PO DAILY@0700 [facility] Last Admin: 10/19/17 06:02 Dose: 50 mg - Objective Vital Signs: Vital Signs Temperature 98.2 F 10/19/17 02:12 Pulse Rate 64 10/19/17 06:00 Respiratory Rate 15 10/19/17 06:00 Blood Pressure 111/50 10/19/17 06:00 O2 Sat by Pulse Oximetry (%) 100 10/18/17 10:08 Constitutional: Yes: Well Nourished, No Distress HENT: Yes: WNL, Atraumatic Neck: Yes: WNL, Supple Cardiovascular: Yes: Regular Rate and Rhythm, S1, S2. No: Murmur Respiratory: Yes: WNL, Regular, CTA Bilaterally, Rales Gastrointestinal: Yes: Normal Bowel Sounds, Soft. No: Tenderness, Tenderness, Rebound Extremities: No: Cold, Cool, Cyanosis Edema: Yes Labs: CBC, BMP 10/19/17 05:40 Assessment/Plan Microbiology 10/18/17 18:45 Nasopharyngeal Swab Influenza Types A,B Antigen (HALEY) - Final 10/18/17 18:45 Nasopharyngeal Swab - Final 10/18/17 14:00 Urine For Antigen Detection Legionella Antigen - Final 10/18/17 14:00 Urine For Antigen Detection Streptococcus pneumoniae Antigen (M - Final Laboratory Tests 10/18/17 10/18/17 10/18/17 06:40 07:09 07:56 WBC 8.9 D Hgb 12.9 D Plt Count 378 D BUN 29 H Creatinine 2.0 H Creat Clearance w eGFR 24.85 Lactic Acid Urine WBC (Auto) 5 Urine RBC (Auto) 35 Random Vancomycin 10/18/17 10/18/17 10/18/17 10:10 15:45 19:50 WBC Hgb Plt Count BUN Creatinine Creat Clearance w eGFR Lactic Acid 2.8 H* 4.3 H* 4.3 H* Urine WBC (Auto) Urine RBC (Auto) Random Vancomycin 10/19/17 10/19/17 05:40 05:40 WBC Pending Hgb Pending Plt Count Pending BUN Creatinine Creat Clearance w eGFR Lactic Acid Urine WBC (Auto) Urine RBC (Auto) Random Vancomycin Pending Assessment Respiratory failure improved today Bilateral pneumonitis in an immunosurpressed host unspecified etiology as of now History of mantle cell lymphoma S/P Splenectomy History of ITP on Promecta Acute and chronic kidney disease Plan Continue Ana Laura Forbes Would get a chest CT in this immunosurpressed host for further evaluation of infiltrates Critical care time spent 35 minutes today Dotty OLIVO
[2017-10-19 07:17] LABS: ANION GAP 7 (8-16); CALCIUM 8.3 mg/dL (8.5-10.1); CHLORIDE 95 mmol/L (98-107); CO2 33 mmol/L (21-32); POTASSIUM 5.1 mmol/L (3.5-5.1); SODIUM 135 mmol/L (136-145)
[2017-10-19 07:21] LABS: BLOOD UREA NITROGEN 36 mg/dL (7-18); CREATININE 2.1 mg/dL (0.55-1.02); GLUCOSE,RANDOM 183 mg/dL (74-106); MAGNESIUM 2.5 mg/dL (1.8-2.4); PHOSPHOROUS 3.3 mg/dL (2.5-4.9)
[2017-10-19] MEDS ORDERED: ATOVAQUONE 750 MG/5 ML (UNIT-DOSE PACKAGING) PO SCH (08:00)
[2017-10-19] MEDS: ARFORMOTEROL TARTRATE 15 MCG/2 ML VIAL NEB SCH ×2 (08:10→20:42)
--- NOTE | 2017-10-19 08:16 | PN ---
Physical Exam: SUBJECTIVE: Patient awake, tolerating PO intake. States she was unable to move from bed to chair without significant shortness of breath. OBJECTIVE: Vital Signs Period Temp Pulse Resp BP Sys/[place] Pulse Ox Last 24 Hr 98.2 F-98.4 F 64-112 15-26 107-148/43-70 93-100 General: awake, alert, A&O x3 Respiratory: bibasilar crackles CV: S1/S2 ascultated, RRR Abdomen: soft, no TTP, (+) bowel sounds Extremities: B/L LE non-pitting edema Laboratory Results - last 24 hr 10/18/17 10/18/17 10/18/17 07:09 07:56 08:12 WBC 8.9 D RBC 4.22 Hgb 12.9 D Hct 39.0 D MCV 92.5 MCH 30.5 MCHC 33.0 RDW 21.2 H D Plt Count 378 D MPV 8.7 Neutrophils % 93.4 H D Lymphocytes % 2.7 L D Monocytes % 2.6 L Eosinophils % 0.1 Basophils % 1.2 D Puncture Site ABG pH ABG pCO2 at Pt Temp ABG pO2 at Pt Temp ABG HCO3 ABG O2 Sat (Measured) ABG O2 Content ABG Base Excess Sanket Test VBG pH 7.03 L* D POC VBG pCO2 42.2 D POC VBG pO2 26.8 L D Mixed VBG HCO3 10.7 L* O2 Delivery Device Oxygen Flow Rate Mechanical Rate PEEP POC Glucometer Lactic Acid 2.8 H* Random Vancomycin 10/18/17 10/18/17 10/18/17 10:10 10:45 15:45 WBC RBC Hgb Hct MCV MCH MCHC RDW Plt Count MPV Neutrophils % Lymphocytes % Monocytes % Eosinophils % Basophils % Puncture Site Right radial ABG pH 7.40 ABG pCO2 at Pt Temp 46.4 H ABG pO2 at Pt Temp 65.3 L ABG HCO3 28.1 H ABG O2 Sat (Measured) 92.9 ABG O2 Content 14.9 L ABG Base Excess 3.2 H Sanket Test Positive VBG pH POC VBG pCO2 POC VBG pO2 Mixed VBG HCO3 O2 Delivery Device Nasal cannula Oxygen Flow Rate 4l Mechanical Rate No PEEP 0.0 POC Glucometer Lactic Acid 2.8 H* 4.3 H* Random Vancomycin 0510/18/17 10/18/17 17:52 19:50 19:50 WBC RBC Hgb Hct MCV MCH MCHC RDW Plt Count MPV Neutrophils % Lymphocytes % Monocytes % Eosinophils % Basophils % Puncture Site ABG pH ABG pCO2 at Pt Temp ABG pO2 at Pt Temp ABG HCO3 ABG O2 Sat (Measured) ABG O2 Content ABG Base Excess Sanket Test VBG pH POC VBG pCO2 POC VBG pO2 Mixed VBG HCO3 O2 Delivery Device Oxygen Flow Rate Mechanical Rate PEEP POC Glucometer > 400 Lactic Acid 4.3 H* Random Vancomycin 9.886 10/19/17 10/19/17 10/19/17 05:40 05:40 05:40 WBC 29.5 H D RBC 3.60 Hgb 10.6 L D Hct 32.8 D MCV 91.2 MCH 29.5 MCHC 32.3 RDW 21.1 H Plt Count 375 MPV 9.0 Neutrophils % No Result Required. Lymphocytes % No Result Required. Monocytes % Eosinophils % Basophils % Puncture Site ABG pH ABG pCO2 at Pt Temp ABG pO2 at Pt Temp ABG HCO3 ABG O2 Sat (Measured) ABG O2 Content ABG Base Excess Sanket Test VBG pH POC VBG pCO2 POC VBG pO2 Mixed VBG HCO3 O2 Delivery Device Oxygen Flow Rate Mechanical Rate PEEP POC Glucometer Lactic Acid 2.1 H Random Vancomycin 7.047 Active Medications Generic Name Dose Route Start Last Admin Trade Name Freq PRN Reason Stop Dose Admin Acetaminophen 650 mg 10/18/17 10:24 Tylenol - PO Q4H PRN PAIN LEVEL 1-5 Albuterol Sulfate 2 puff 10/18/17 11:00 Ventolin Hfa Inhaler - IH Q6H PRN SHORTNESS OF BREATH Alprazolam 0.5 mg 10/18/17 19:33 10/18/17 22:06 Xanax - PO 0.5 mg Q8H PRN Administration ANXIETY Amlodipine Besylate 5 mg 10/19/17 10:00 Norvasc - PO DAILY [facility] Arformoterol Tartrate 1 amp 10/18/17 20:00 10/18/17 21:00 Brovana (Restricted To Pulmonology/Resp) - NEB 1 amp RBID [facility] Administration Ascorbic Acid 1,000 mg 10/19/17 10:00 Vitamin C - PO DAILY [facility] Atovaquone 1,500 mg 10/18/17 20:30 10/18/17 22:07 Mepron - PO 1,500 mg DAILY@1900 [facility] Administration Budesonide/Formoterol Fumarate 2 puff 10/18/17 22:00 10/18/17 23:19 Symbicort 160/4.5mcg - IH 2 puff BID [facility] Administration Calcium Carbonate 650 mg 10/18/17 22:00 10/18/17 23:18 Calcium Carbonate - PO 650 mg BID [facility] Administration Chlorhexidine Gluconate 1 applic 10/18/17 22:00 10/18/17 22:08 Hibiclens For Decolonization - TP 1 applic HS [facility] Administration Ferrous Sulfate 325 mg 10/19/17 10:00 Feosol - PO DAILY [facility] Glipizide 5 mg 10/18/17 16:30 10/19/17 06:02 Glucotrol - PO 5 mg BIDAC [facility] Administration Azithromycin 500 mg/ Dextrose 250 mls @ 250 mls/hr 10/18/17 14:30 10/18/17 16 :07 IVPB 250 mls/hr DAILY [facility] Administration Piperacillin Sod/Tazobactam 100 mls @ 200 mls/hr 10/18/17 18:00 10/19/17 02: 35 Sod 4.5 gm/ Dextrose IVPB 200 mls/hr Q8H-IV [facility] Administration Protocol Insulin Aspart 1 vial 10/18/17 16:30 10/19/17 06:02 Novolog Vial Sliding Scale - SQ Not Given ACHS [facility] Protocol Methylprednisolone Sodium Succinate 40 mg 10/18/17 12:30 10/19/17 02:00 Solu-Medrol - IVPUSH 40 mg Q8H-IV [facility] Administration Metoprolol Tartrate 25 mg 10/18/17 22:00 10/18/17 22:06 Lopressor - PO 25 mg BID [facility] Administration Morphine Sulfate 60 mg 10/18/17 14:00 10/19/17 05:57 Ms Contin - PO 60 mg TID [facility] Administration Morphine Sulfate 15 mg 10/18/17 10:57 Msir - PO QID PRN breakthrough pain 6-10 Mupirocin 1 applic 10/18/17 22:00 10/18/17 22:07 Bactroban Ointment (For Decolonization) - NS 10/23/17 21:59 1 applic BID [facility] Administration Non-Formulary Medication 50 mg 05/17/18 10:00 Eltrombopag Olamine [Promacta] PO DAILY [facility] Pantoprazole Sodium 40 mg 10/19/17 10:00 Protonix - PO DAILY [facility] Sertraline HCl 25 mg 10/19/17 10:00 Zoloft - PO DAILY [facility] Sitagliptin Phosphate 50 mg 10/19/17 07:00 10/19/17 06:02 Januvia - PO 50 mg DAILY@0700 [facility] Administration ASSESSMENT/PLAN: 66 year old female with a PMH of HTN, NIDDM, ITP (s/p splenectomy), diverticulitis, recurrent UTI's, and mantle cell lymphoma who presented to the ED earlier this morning c/o cough. In ED patient found to be hypoxic to SpO2 70 's and febrile. Admitted to ICU for sepsis. 1. ACUTE HYPOXIC AND HYPERCAPNEIC RESPIRATORY FAILURE - likely 2/2 to PNA - SpO2 90's on 4 L NC - VB.71/75.2/83.6/9.0 @ presentation; AB.4/46/4/65/3/28.1 - Continue empiric steroids with planned taper for tomorrow (10/20) - Continue scheduled bronchodilators - Monitor O2 to keep SpO2 > 90% 2. SEPSIS - RESOLVED - Hypoxic and febrile @ presentation w/source bacterial PNA - Lactic Acid 2.1 today (10/19); Lactic Acid 2.8 x2 @ presentation; Overnight on (10/18-10/19) lactic acid increased, patient started on gentle hydration ( normal LV function as per EMR) w/subsequent fluid overload (crackles on PE) -- currently withholding fluid, s/p Lasix 20 IV - WBC 29.2 likely 2/2 to Solumedrol - Monitor O2 to keep SpO2 > 90% 3. HCAP - Legionella, Influenza, Strep Pneumo negative on CXR - B/L lower lobe congestion on CXR, slightly improved since presentation - Admission in 09/2017 for thrombocytopenia likely 2/2 to ITP - Will treat for HCAP + Atypicals given patient's IC w/Vanc, Zosyn, Zithromax - renal dosing - ID following appreciate recs - possible CT pending patient clinical progress to evaluate for further infiltrates 4. CKD - Cr 2.1/BUN 36 today (10/19) <-- - 2.0 Cr/20 BUN stable, c/w 09/2017 admission - Continue to monitor Cr and UOP 5. NIDDM - BS FS 160's-180's - Monitor BS, especially in light of recent steroids 6. H/O ITP - Platelets 375<-- 378, <-- 190 in 09/30/17 - Continue to monitor FEN - Continue to monitor - Renal Diet Prophylaxis - DVT prophylaxis not indicated 2/2 to ITP - GI prophylaxis not indicated as per patient's clinical presentation Visit type - Emergency Visit Emergency Visit: No - New Patient This patient is new to me today: No - Critical Care Critical Care patient: No
[2017-10-19] MEDS ORDERED: DEXTROSE 5%-WATER 100 ML IVPB ONE ×2 (09:37→15:27)
[2017-10-19] MEDS ORDERED: PIPERACILLIN/TAZOBACTAM 4.5 GM VIAL IVPB ONE ×2 (09:37→15:27)
[2017-10-19] MEDS: CALCIUM CARBONATE 650 MG TABLET PO SCH ×2 (09:55→21:36)
[2017-10-19] MEDS: METOPROLOL TARTRATE 25 MG TABLET (FP) PO SCH ×2 (09:57→21:36)
[2017-10-19] MEDS ORDERED: PREDNISONE PO SCH (10:00)
[2017-10-19] MEDS ORDERED: PANTOPRAZOLE 40 MG TABLET (FP) PO SCH (10:00)
[2017-10-19] MEDS ORDERED: ALLOPURINOL 100 MG TABLET (FP) PO SCH (10:00)
[2017-10-19] MEDS ORDERED: predniSONE 20 MG TABLET (UD) PO SCH (10:00)
[2017-10-19] MEDS: ALPRAZolam 0.25 MG TABLET PO PRN ×2 (10:00→21:37)
[2017-10-19] MEDS ORDERED: FERROUS SO4 325 MG TABLET (FP) PO SCH (10:00)
[2017-10-19] MEDS ORDERED: ASCORBIC ACID 500 MG TABLET (FP) PO SCH (10:00)
[2017-10-19] MEDS ORDERED: SERTRALINE HCL 25 MG TABLET (FP) PO SCH (10:00)
[2017-10-19] MEDS ORDERED: ELTROMBOPAG OLAMINE 50 MG PO SCH (10:00)
[2017-10-19] MEDS ORDERED: amLODIPine BESYLATE 5 MG TABLET (FP) PO SCH (10:00)
[2017-10-19] MEDS: MUPIROCIN 2% TOPICAL OINTMENT FOR DECOLONIZATION NS SCH ×2 (10:12→21:36)
[2017-10-19] MEDS: BUDESONIDE/FORMETEROL FUMARATE 160/4.5 mcg INHALER IH SCH ×2 (10:14→21:38)
[2017-10-19] MEDS: morphine SULFATE IMMEDIATE RELEASE 30 MG TAB PO PRN ×2 (10:16→19:05)
--- NOTE | 2017-10-19 11:07 | PN ---
Progress Note, Physician Chief Complaint: Ms Painting says she is feeling much better. Shortness of breath much improved. No cp or n/v. Says feels very weak today. - Current Medication List Current Medications: Active Medications Acetaminophen (Tylenol -) 650 mg PO Q4H PRN PRN Reason: PAIN LEVEL 1-5 Albuterol Sulfate (Ventolin Hfa Inhaler -) 2 puff IH Q6H PRN PRN Reason: SHORTNESS OF BREATH Alprazolam (Xanax -) 0.5 mg PO Q8H PRN PRN Reason: ANXIETY Last Admin: 10/19/17 10:00 Dose: 0.5 mg Amlodipine Besylate (Norvasc -) 5 mg PO DAILY [facility] Last Admin: 10/19/17 09:54 Dose: 5 mg Arformoterol Tartrate (Brovana (Restricted To Pulmonology/Resp) -) 1 amp NEB RBID [facility] Last Admin: 10/19/17 08:10 Dose: 1 amp Ascorbic Acid (Vitamin C -) 1,000 mg PO DAILY [facility] Last Admin: 10/19/17 09:55 Dose: 1,000 mg Atovaquone (Mepron -) 1,500 mg PO DAILY@1900 [facility] Last Admin: 10/18/17 22:07 Dose: 1,500 mg Budesonide/Formoterol Fumarate (Symbicort 160/4.5mcg -) 2 puff IH BID [facility] Last Admin: 10/19/17 10:14 Dose: 2 puff Calcium Carbonate (Calcium Carbonate -) 650 mg PO BID [facility] Last Admin: 10/19/17 09:55 Dose: 650 mg Chlorhexidine Gluconate (Hibiclens For Decolonization -) 1 applic TP HS [facility] Last Admin: 10/18/17 22:08 Dose: 1 applic Ferrous Sulfate (Feosol -) 325 mg PO DAILY [facility] Last Admin: 10/19/17 09:55 Dose: 325 mg Glipizide (Glucotrol -) 5 mg PO BIDAC [facility] Last Admin: 10/19/17 06:02 Dose: 5 mg Azithromycin 500 mg/ Dextrose 250 mls @ 250 mls/hr IVPB DAILY [facility] Last Admin: 10/18/17 16:07 Dose: 250 mls/hr Piperacillin Sod/Tazobactam (Sod 4.5 gm/ Dextrose) 100 mls @ 200 mls/hr IVPB Q8H-IV [facility] PRN Reason: Protocol Last Admin: 10/19/17 10:13 Dose: 200 mls/hr Insulin Aspart (Novolog Vial Sliding Scale -) 1 vial SQ ACHS [facility] PRN Reason: Protocol Last Admin: 10/19/17 06:02 Dose: Not Given Methylprednisolone Sodium Succinate (Solu-Medrol -) 40 mg IVPUSH Q8H-IV [facility] Last Admin: 10/19/17 09:55 Dose: 40 mg Metoprolol Tartrate (Lopressor -) 25 mg PO BID [facility] Last Admin: 10/19/17 09:57 Dose: 25 mg Morphine Sulfate (Ms Contin -) 60 mg PO TID [facility] Last Admin: 10/19/17 05:57 Dose: 60 mg Morphine Sulfate (Msir -) 15 mg PO QID PRN PRN Reason: breakthrough pain 6-10 Last Admin: 10/19/17 10:16 Dose: 15 mg Mupirocin (Bactroban Ointment (For Decolonization) -) 1 applic NS BID [facility] Stop: 10/23/17 21:59 Last Admin: 10/19/17 10:12 Dose: 1 applic Non-Formulary Medication (Eltrombopag Olamine [Promacta]) 50 mg PO DAILY [facility] Pantoprazole Sodium (Protonix -) 40 mg PO DAILY [facility] Last Admin: 10/19/17 09:54 Dose: 40 mg Sertraline HCl (Zoloft -) 25 mg PO DAILY [facility] Last Admin: 10/19/17 09:55 Dose: 25 mg Sitagliptin Phosphate (Januvia -) 50 mg PO DAILY@0700 [facility] Last Admin: 10/19/17 06:02 Dose: 50 mg - Objective Vital Signs: Vital Signs Temperature 37.0 C 10/19/17 10:00 Pulse Rate 86 10/19/17 10:00 Respiratory Rate 16 10/19/17 10:00 Blood Pressure 115/42 10/19/17 10:00 O2 Sat by Pulse Oximetry (%) 100 10/18/17 10:08 Constitutional: Yes: No Distress, Calm, Obese Cardiovascular: Yes: Regular Rate and Rhythm. No: Gallop, Murmur, Rub Respiratory: Yes: Regular, On Nasal O2, Rhonchi. No: CTA Bilaterally, Rales, Wheezes Gastrointestinal: Yes: Normal Bowel Sounds, Soft. No: Distention, Tenderness Extremities: Yes: WNL Edema: Yes Edema: LLE: 1+, RLE: 1+ Labs: CBC, BMP 10/19/17 05:40 10/19/17 05:40 Assessment/Plan (1) Acute respiratory failure with hypoxia Assessment/Plan: -secondary to pneumonia -much improved -pulmonary following, on steroids -continue oxygen supplementation, lessening Code(s): J96.01 - ACUTE RESPIRATORY FAILURE WITH HYPOXIA (2) HCAP (healthcare-associated pneumonia) Assessment/Plan: -case d/w ID -start on vancomycin, zosyn, and azithromax -improving -agree with CT scan to evaluate for PCP -patient reluctant, encouraged Code(s): J18.9 - PNEUMONIA, UNSPECIFIED ORGANISM (3) CKD (chronic kidney disease) Assessment/Plan: -stable -case d/w nephrology -restart lasix Code(s): N18.9 - CHRONIC KIDNEY DISEASE, UNSPECIFIED (4) Chronic ITP (idiopathic thrombocytopenia) Assessment/Plan: -hematology following -continue promacta Code(s): D69.3 - IMMUNE THROMBOCYTOPENIC PURPURA (5) Diabetes mellitus Assessment/Plan: -continue home regimen -diabetic diet -FSBS and SSI Code(s): E11.9 - TYPE 2 DIABETES MELLITUS WITHOUT COMPLICATIONS Qualifiers: Diabetes mellitus type: drug or chemical induced Diabetes mellitus complication status: without complication (6) HTN (hypertension) Assessment/Plan: -continue norvasc and metoprolol -hold parameters Code(s): I10 - ESSENTIAL (PRIMARY) HYPERTENSION Qualifiers: (7) Sepsis Assessment/Plan: -antibiotics as above -improving Code(s): A41.9 - SEPSIS, UNSPECIFIED ORGANISM 33 minutes spent in critical care time with this patient
[2017-10-19] MEDS ORDERED: FUROSEMIDE 40 MG TABLET (FP) PO SCH (11:15)
--- NOTE | 2017-10-19 11:19 | PN ---
Progress Note (short form) - Note Progress Note: Renal follow up for CKD pt seen and examined in the ICU awake and alert reports feeling better making urine has HAUSER with minimal exertion Vital Signs Temperature 98.6 F 10/19/17 10:00 Pulse Rate 86 10/19/17 10:00 Respiratory Rate 16 10/19/17 10:00 Blood Pressure 115/42 10/19/17 10:00 O2 Sat by Pulse Oximetry (%) 100 10/18/17 10:08 Intake & Output 10/16/17 10/17/17 10/18/17 10/19/17 23:59 23:59 23:59 23:59 Intake Total 2100 400 Output Total 2400 700 Balance -300 -300 Weight 115.4 kg 113.115 kg NAD awake and alert RRR, NO m/R Dec Bs at lung bases obese, NT/ND + edema in LE CBC, BMP 10/19/17 05:40 10/19/17 05:40 Current Medications Acetaminophen (Tylenol -) 650 mg PO Q4H PRN PRN Reason: PAIN LEVEL 1-5 Albuterol Sulfate (Ventolin Hfa Inhaler -) 2 puff IH Q6H PRN PRN Reason: SHORTNESS OF BREATH Alprazolam (Xanax -) 0.5 mg PO Q8H PRN PRN Reason: ANXIETY Last Admin: 10/19/17 10:00 Dose: 0.5 mg Amlodipine Besylate (Norvasc -) 5 mg PO DAILY [facility] Last Admin: 10/19/17 09:54 Dose: 5 mg Arformoterol Tartrate (Brovana (Restricted To Pulmonology/Resp) -) 1 amp NEB RBID [facility] Last Admin: 10/19/17 08:10 Dose: 1 amp Ascorbic Acid (Vitamin C -) 1,000 mg PO DAILY [facility] Last Admin: 10/19/17 09:55 Dose: 1,000 mg Atovaquone (Mepron -) 1,500 mg PO DAILY@1900 [facility] Last Admin: 10/18/17 22:07 Dose: 1,500 mg Budesonide/Formoterol Fumarate (Symbicort 160/4.5mcg -) 2 puff IH BID [facility] Last Admin: 10/19/17 10:14 Dose: 2 puff Calcium Carbonate (Calcium Carbonate -) 650 mg PO BID [facility] Last Admin: 10/19/17 09:55 Dose: 650 mg Chlorhexidine Gluconate (Hibiclens For Decolonization -) 1 applic TP HS [facility] Last Admin: 10/18/17 22:08 Dose: 1 applic Ferrous Sulfate (Feosol -) 325 mg PO DAILY [facility] Last Admin: 10/19/17 09:55 Dose: 325 mg Furosemide (Lasix -) 40 mg PO DAILY [facility] Glipizide (Glucotrol -) 5 mg PO BIDAC [facility] Last Admin: 10/19/17 06:02 Dose: 5 mg Azithromycin 500 mg/ Dextrose 250 mls @ 250 mls/hr IVPB DAILY [facility] Last Admin: 10/18/17 16:07 Dose: 250 mls/hr Piperacillin Sod/Tazobactam (Sod 4.5 gm/ Dextrose) 100 mls @ 200 mls/hr IVPB Q8H-IV [facility] PRN Reason: Protocol Last Admin: 10/19/17 10:13 Dose: 200 mls/hr Insulin Aspart (Novolog Vial Sliding Scale -) 1 vial SQ ACHS [facility] PRN Reason: Protocol Last Admin: 10/19/17 06:02 Dose: Not Given Methylprednisolone Sodium Succinate (Solu-Medrol -) 40 mg IVPUSH Q8H-IV [facility] Last Admin: 10/19/17 09:55 Dose: 40 mg Metoprolol Tartrate (Lopressor -) 25 mg PO BID [facility] Last Admin: 10/19/17 09:57 Dose: 25 mg Morphine Sulfate (Ms Contin -) 60 mg PO TID [facility] Last Admin: 10/19/17 05:57 Dose: 60 mg Morphine Sulfate (Msir -) 15 mg PO QID PRN PRN Reason: breakthrough pain 6-10 Last Admin: 10/19/17 10:16 Dose: 15 mg Mupirocin (Bactroban Ointment (For Decolonization) -) 1 applic NS BID [facility] Stop: 10/23/17 21:59 Last Admin: 10/19/17 10:12 Dose: 1 applic Non-Formulary Medication (Eltrombopag Olamine [Promacta]) 50 mg PO DAILY [facility] Pantoprazole Sodium (Protonix -) 40 mg PO DAILY [facility] Last Admin: 10/19/17 09:54 Dose: 40 mg Sertraline HCl (Zoloft -) 25 mg PO DAILY [facility] Last Admin: 10/19/17 09:55 Dose: 25 mg Sitagliptin Phosphate (Januvia -) 50 mg PO DAILY@0700 [facility] Last Admin: 10/19/17 06:02 Dose: 50 mg 67 year old woman with PMhx of CKD, Mantle Cell Lymphoma, ITP, IDDM, Hypertension, chronic hydronephorosis who presents with SOB and cough and found to be hypoxic in setting of PNA with Cr of 2. #CKD Stage 3 #ITP #Hx of Mantle Cell Lymphoma #Sepsis/PNA #Hx of Hydronephrosis Cr stable, BUN uptrending (likely related to steroids) now with evidence of volume expansion, start oral lasix 40mg Daily On Mepron for PCP prophylaxis CT chest as per ID continue Abx can consider repeat Renal US when stable Plt counts stable Dash Padron DO
--- NOTE | 2017-10-19 11:32 | PN ---
Teaching Attending Note Name of Resident: Danyelle Herbert ATTENDING PHYSICIAN STATEMENT I saw and evaluated the patient. I reviewed the resident's note and discussed the case with the resident. I agree with the resident's findings and plan as documented. SUBJECTIVE: Pt seen and examined in the ICU. Breathing much improved. Dyspneic and respiratory distress overnight when being moved. +nonproductive cough. No further fevers. OBJECTIVE: Last Vital Signs Temp Pulse Resp BP Pulse Ox 98.6 F 86 16 115/42 100 10/19/17 10:00 10/19/17 10:00 10/19/17 10:00 10/19/17 10:00 10/18/17 10:08 Intake & Output 10/16/17 10/17/17 10/18/17 10/19/17 23:59 23:59 23:59 23:59 Intake Total 2100 400 Output Total 2400 700 Balance -300 -300 Weight 115.4 kg 113.115 kg Gen: less tachypneic Heart: RRR Lung: bibasilar rales Abd: soft, nontender Ext: + edema CBC, BMP 10/19/17 05:40 10/19/17 05:40 Active Medications Acetaminophen (Tylenol -) 650 mg PO Q4H PRN PRN Reason: PAIN LEVEL 1-5 Albuterol Sulfate (Ventolin Hfa Inhaler -) 2 puff IH Q6H PRN PRN Reason: SHORTNESS OF BREATH Alprazolam (Xanax -) 0.5 mg PO Q8H PRN PRN Reason: ANXIETY Last Admin: 10/19/17 10:00 Dose: 0.5 mg Amlodipine Besylate (Norvasc -) 5 mg PO DAILY [facility] Last Admin: 10/19/17 09:54 Dose: 5 mg Arformoterol Tartrate (Brovana (Restricted To Pulmonology/Resp) -) 1 amp NEB RBID [facility] Last Admin: 10/19/17 08:10 Dose: 1 amp Ascorbic Acid (Vitamin C -) 1,000 mg PO DAILY [facility] Last Admin: 10/19/17 09:55 Dose: 1,000 mg Atovaquone (Mepron -) 1,500 mg PO DAILY@1900 [facility] Last Admin: 10/18/17 22:07 Dose: 1,500 mg Budesonide/Formoterol Fumarate (Symbicort 160/4.5mcg -) 2 puff IH BID [facility] Last Admin: 10/19/17 10:14 Dose: 2 puff Calcium Carbonate (Calcium Carbonate -) 650 mg PO BID [facility] Last Admin: 10/19/17 09:55 Dose: 650 mg Chlorhexidine Gluconate (Hibiclens For Decolonization -) 1 applic TP HS [facility] Last Admin: 10/18/17 22:08 Dose: 1 applic Ferrous Sulfate (Feosol -) 325 mg PO DAILY [facility] Last Admin: 10/19/17 09:55 Dose: 325 mg Furosemide (Lasix -) 40 mg PO DAILY [facility] Glipizide (Glucotrol -) 5 mg PO BIDAC [facility] Last Admin: 10/19/17 06:02 Dose: 5 mg Azithromycin 500 mg/ Dextrose 250 mls @ 250 mls/hr IVPB DAILY [facility] Last Admin: 10/18/17 16:07 Dose: 250 mls/hr Piperacillin Sod/Tazobactam (Sod 4.5 gm/ Dextrose) 100 mls @ 200 mls/hr IVPB Q8H-IV [facility] PRN Reason: Protocol Last Admin: 10/19/17 10:13 Dose: 200 mls/hr Insulin Aspart (Novolog Vial Sliding Scale -) 1 vial SQ ACHS [facility] PRN Reason: Protocol Last Admin: 10/19/17 06:02 Dose: Not Given Methylprednisolone Sodium Succinate (Solu-Medrol -) 40 mg IVPUSH Q8H-IV [facility] Last Admin: 10/19/17 09:55 Dose: 40 mg Metoprolol Tartrate (Lopressor -) 25 mg PO BID [facility] Last Admin: 10/19/17 09:57 Dose: 25 mg Morphine Sulfate (Ms Contin -) 60 mg PO TID [facility] Last Admin: 10/19/17 05:57 Dose: 60 mg Morphine Sulfate (Msir -) 15 mg PO QID PRN PRN Reason: breakthrough pain 6-10 Last Admin: 10/19/17 10:16 Dose: 15 mg Mupirocin (Bactroban Ointment (For Decolonization) -) 1 applic NS BID [facility] Stop: 10/23/17 21:59 Last Admin: 10/19/17 10:12 Dose: 1 applic Non-Formulary Medication (Eltrombopag Olamine [Promacta]) 50 mg PO DAILY [facility] Pantoprazole Sodium (Protonix -) 40 mg PO DAILY [facility] Last Admin: 10/19/17 09:54 Dose: 40 mg Sertraline HCl (Zoloft -) 25 mg PO DAILY [facility] Last Admin: 10/19/17 09:55 Dose: 25 mg Sitagliptin Phosphate (Januvia -) 50 mg PO DAILY@0700 [facility] Last Admin: 10/19/17 06:02 Dose: 50 mg ASSESSMENT AND PLAN: Acute Hypoxic and Hypercapneic Respiratory Failure improving Pneumonia Sepsis resolving Lactic Acidosis improving Mantle Cell Lymphoma h/o ITP HTN DM CKD - continue antibiotics per ID - f/u cultures - empiric steroids, can start taper in AM - inhaled bronchodilators standing and PRN - O2 to keep SpO2 >90% - lasix today - monitor urine output, creatinine - glucose control while on systemic steroids - DVT prophylaxis critical care time spent in reviewing chart, evaluating patient and formulating plan 35 min
[2017-10-19 11:36] LABS: ANISOCYTOSIS 2+; PLATELET ESTIMATE ADEQUATE
[2017-10-19] MEDS: AZITHROMYCIN IVPB 500 MG in DEXTROSE 5%-WATER - 250 ML IVPB SCH (11:53)
--- NOTE | 2017-10-19 14:12 | PN ---
Progress Note (short form) - Note Progress Note: Patient seen and examined. chart reviewed in detail. Now more improved than the am. O/E: Gen: NAD, on Oxygen now HEENt: NCAT Cor: RRR Lungs: decreased at bases, left lung with crackles Abd: BS+ Neuro: AAOx3 Le: no edema Last Vital Signs Temp Pulse Resp BP Pulse Ox 98.6 F 78 12 128/56 100 10/19/17 10:00 10/19/17 12:00 10/19/17 12:00 10/19/17 12:00 10/18/17 10:08 CBC, BMP 10/19/17 05:40 10/19/17 05:40 Current Medications Generic Name Dose Route Start Last Admin Trade Name Freq PRN Reason Stop Dose Admin Acetaminophen 650 mg 10/18/17 10:24 Tylenol - PO Q4H PRN PAIN LEVEL 1-5 Albuterol Sulfate 2 puff 10/18/17 11:00 Ventolin Hfa Inhaler - IH Q6H PRN SHORTNESS OF BREATH Alprazolam 0.5 mg 10/18/17 19:33 10/19/17 10:00 Xanax - PO 0.5 mg Q8H PRN Administration ANXIETY Amlodipine Besylate 5 mg 10/19/17 10:00 10/19/17 09:54 Norvasc - PO 5 mg DAILY [facility] Administration Arformoterol Tartrate 1 amp 10/18/17 20:00 10/19/17 08:10 Brovana (Restricted To Pulmonology/Resp) - NEB 1 amp RBID [facility] Administration Ascorbic Acid 1,000 mg 10/19/17 10:00 10/19/17 09:55 Vitamin C - PO 1,000 mg DAILY [facility] Administration Atovaquone 1,500 mg 10/18/17 20:30 10/18/17 22:07 Mepron - PO 1,500 mg DAILY@1900 [facility] Administration Budesonide/Formoterol Fumarate 2 puff 10/18/17 22:00 10/19/17 10:14 Symbicort 160/4.5mcg - IH 2 puff BID [facility] Administration Calcium Carbonate 650 mg 10/18/17 22:00 10/19/17 09:55 Calcium Carbonate - PO 650 mg BID [facility] Administration Chlorhexidine Gluconate 1 applic 10/18/17 22:00 10/18/17 22:08 Hibiclens For Decolonization - TP 1 applic HS [facility] Administration Ferrous Sulfate 325 mg 10/19/17 10:00 10/19/17 09:55 Feosol - PO 325 mg DAILY [facility] Administration Furosemide 40 mg 10/19/17 11:15 10/19/17 12:22 Lasix - PO 40 mg DAILY [facility] Administration Glipizide 5 mg 10/18/17 16:30 10/19/17 06:02 Glucotrol - PO 5 mg BIDAC [facility] Administration Azithromycin 500 mg/ Dextrose 250 mls @ 250 mls/hr 10/18/17 14:30 10/19/17 11 :53 IVPB 250 mls/hr DAILY [facility] Administration Piperacillin Sod/Tazobactam 100 mls @ 200 mls/hr 10/18/17 18:00 10/19/17 10: 13 Sod 4.5 gm/ Dextrose IVPB 200 mls/hr Q8H-IV [facility] Administration Protocol Insulin Aspart 1 vial 10/18/17 16:30 10/19/17 12:00 Novolog Vial Sliding Scale - SQ 10 units ACHS [facility] Administration Protocol Methylprednisolone Sodium Succinate 40 mg 10/18/17 12:30 10/19/17 09:55 Solu-Medrol - IVPUSH 40 mg Q8H-IV [facility] Administration Metoprolol Tartrate 25 mg 10/18/17 22:00 10/19/17 09:57 Lopressor - PO 25 mg BID [facility] Administration Morphine Sulfate 60 mg 10/18/17 14:00 10/19/17 05:57 Ms Contin - PO 60 mg TID [facility] Administration Morphine Sulfate 15 mg 10/18/17 10:57 10/19/17 10:16 Msir - PO 15 mg QID PRN Administration breakthrough pain 6-10 Mupirocin 1 applic 10/18/17 22:00 10/19/17 10:12 Bactroban Ointment (For Decolonization) - NS 10/23/17 21:59 1 applic BID [facility] Administration Non-Formulary Medication 50 mg 10/19/17 10:00 Eltrombopag Olamine [Promacta] PO DAILY [facility] Pantoprazole Sodium 40 mg 10/19/17 10:00 10/19/17 09:54 Protonix - PO 40 mg DAILY [facility] Administration Sertraline HCl 25 mg 10/19/17 10:00 10/19/17 09:55 Zoloft - PO 25 mg DAILY [facility] Administration Sitagliptin Phosphate 50 mg 10/19/17 07:00 10/19/17 06:02 Januvia - PO 50 mg DAILY@0700 [facility] Administration Acute Hypoxic respiratory failure----much improved-- Refractory ITP, most recently on promacta Mantle cell lymphoma (minimal involvement in the marrow and peripheral blood ) ARLETTE/CKD steroids per pulm CT chest Abx per ID Hold promacta
[2017-10-19] MEDS: ATOVAQUONE 750 MG/5 ML (UNIT-DOSE PACKAGING) PO SCH (19:18)
[2017-10-19] MEDS ORDERED: ATOVAQUONE 750 MG/5 ML (UNIT-DOSE PACKAGING) PO ONE (20:24)
[2017-10-19] MEDS: CHLORHEXIDINE GLUCONATE 4% CLEANSER FOR DECOLONIZATION TP SCH (21:36)
[2017-10-19] MEDS ORDERED: ACETAMINOPHEN 325 MG TABLET (FP) PO PRN (22:19)
[2017-10-20] MEDS ORDERED: PIPERACILLIN/TAZOBACTAM 4.5 GM VIAL IVPB ONE ×3 (02:06→17:45)
[2017-10-20] MEDS ORDERED: DEXTROSE 5%-WATER 100 ML IVPB ONE ×3 (02:06→17:45)
[2017-10-20] MEDS: PIPERACILLIN/TAZOB 4.5 GM 4.5 GM in DEXTROSE 5%-WATER 100 ML IVPB SCH ×3 (02:26→18:01)
[2017-10-20] MEDS: methylPREDNISolone NA SUCC 40 MG/1 ML VIAL IVPUSH SCH ×3 (02:26→18:01)
[2017-10-20] MEDS: morphine SULFATE IMMEDIATE RELEASE 30 MG TAB PO PRN (04:06)
[2017-10-20] MEDS: glipiZIDE 5 MG TABLET (FP) PO SCH ×2 (06:46→17:57)
[2017-10-20] MEDS: sitaGLIPtin PHOSPHATE 50 MG TABLET PO SCH (06:46)
[2017-10-20] MEDS: INSULIN SLIDING SCALE (NOVOLOG) 1 VIAL SQ SCH ×4 (06:47→21:37)
[2017-10-20] MEDS: morphine SO4 SUSTAINED ACTING 15 MG TABLET.SA PO SCH ×3 (06:47→21:35)
[2017-10-20] MEDS: ALBUTEROL SO4 18 GM HFA INHALER IH PRN (06:48)
[2017-10-20] MEDS: ARFORMOTEROL TARTRATE 15 MCG/2 ML VIAL NEB SCH ×2 (07:30→20:32)
--- NOTE | 2017-10-20 08:51 | PN ---
Progress Note, Physician Chief Complaint: ID Clinical improvement Less SOB on steroids - Current Medication List Current Medications: Active Medications Acetaminophen (Tylenol -) 650 mg PO Q4H PRN PRN Reason: PAIN LEVEL 1-5 Albuterol Sulfate (Ventolin Hfa Inhaler -) 2 puff IH Q6H PRN PRN Reason: SHORTNESS OF BREATH Last Admin: 10/20/17 06:48 Dose: 2 inh Alprazolam (Xanax -) 0.5 mg PO Q8H PRN PRN Reason: ANXIETY Amlodipine Besylate (Norvasc -) 5 mg PO DAILY [facility] Arformoterol Tartrate (Brovana (Restricted To Pulmonology/Resp) -) 1 amp NEB RBID [facility] Last Admin: 10/20/17 07:30 Dose: 1 amp Ascorbic Acid (Vitamin C -) 1,000 mg PO DAILY [facility] Atovaquone (Mepron -) 1,500 mg PO DAILY@1900 [facility] Calcium Carbonate (Calcium Carbonate -) 650 mg PO BID [facility] Chlorhexidine Gluconate (Hibiclens For Decolonization -) 1 applic TP HS [facility] Ferrous Sulfate (Feosol -) 325 mg PO DAILY [facility] Furosemide (Lasix -) 40 mg PO DAILY [facility] Glipizide (Glucotrol -) 5 mg PO BIDAC [facility] Last Admin: 10/20/17 06:46 Dose: 5 mg Azithromycin 500 mg/ Dextrose 250 mls @ 250 mls/hr IVPB DAILY [facility] Piperacillin Sod/Tazobactam (Sod 4.5 gm/ Dextrose) 100 mls @ 200 mls/hr IVPB Q8H-IV [facility] PRN Reason: Protocol Last Admin: 10/20/17 02:26 Dose: 200 mls/hr Insulin Aspart (Novolog Vial Sliding Scale -) 1 vial SQ ACHS [facility] PRN Reason: Protocol Last Admin: 10/20/17 06:47 Dose: 2 units Methylprednisolone Sodium Succinate (Solu-Medrol -) 40 mg IVPUSH Q8H-IV [facility] Last Admin: 10/20/17 02:26 Dose: 40 mg Metoprolol Tartrate (Lopressor -) 25 mg PO BID [facility] Morphine Sulfate (Msir -) 15 mg PO Q6H PRN PRN Reason: breakthrough pain 6-10 Last Admin: 10/20/17 04:06 Dose: 15 mg Morphine Sulfate (Ms Contin -) 60 mg PO TID [facility] Last Admin: 10/20/17 06:47 Dose: 60 mg Mupirocin (Bactroban Ointment (For Decolonization) -) 1 applic NS BID [facility] Stop: 10/23/17 21:59 Non-Formulary Medication (Eltrombopag Olamine [Promacta]) 50 mg PO DAILY [facility] Pantoprazole Sodium (Protonix -) 40 mg PO DAILY [facility] Sertraline HCl (Zoloft -) 25 mg PO DAILY [facility] Sitagliptin Phosphate (Januvia -) 50 mg PO DAILY@0700 [facility] Last Admin: 10/20/17 06:46 Dose: 50 mg - Objective Vital Signs: Vital Signs Temperature 98.4 F 10/20/17 05:55 Pulse Rate 60 10/20/17 05:55 Respiratory Rate 20 10/20/17 05:55 Blood Pressure 144/62 10/20/17 05:55 O2 Sat by Pulse Oximetry (%) 100 10/18/17 10:08 Constitutional: Yes: No Distress Cardiovascular: Yes: Regular Rate and Rhythm, S1, S2 Respiratory: Yes: WNL, Regular, CTA Bilaterally, Diminished Gastrointestinal: Yes: Soft. No: Tenderness, Tenderness, Rebound Edema: Yes Labs: CBC, BMP 10/19/17 05:40 10/19/17 05:40 Assessment/Plan Microbiology 10/18/17 14:00 Urine For Antigen Detection Legionella Antigen - Final 10/18/17 14:00 Urine For Antigen Detection Streptococcus pneumoniae Antigen (M - Final 10/18/17 07:09 Urine - Urine Clean Catch Urine Culture - Final NO GROWTH OBTAINED 10/18/17 07:09 Blood - Peripheral Venous Blood Culture - Preliminary NO GROWTH OBTAINED AFTER 48 HOURS, INCUBATION TO CONTINUE FOR 3 DAYS. 10/18/17 07:09 Blood - Peripheral Venous Blood Culture - Preliminary NO GROWTH OBTAINED AFTER 48 HOURS, INCUBATION TO CONTINUE FOR 3 DAYS. Selected Entries 10/20/17 05:55 Temperature 98.4 F Pulse Rate 60 Laboratory Tests 10/19/17 10/19/17 05:40 05:40 WBC 29.5 H D Hgb 10.6 L D Hct 32.8 D Plt Count 375 BUN 36 H Creatinine 2.1 H Assessment Pneumonia unspecified etiology Plan Continue current therapy as ordered Ana Laura and Dianna Storm MD
[2017-10-20 09:02] LABS: HEMATOCRIT 33.3 % (32.4-45.2); HEMOGLOBIN 10.9 GM/dL (10.7-15.3); MCH 29.5 pg (25.7-33.7); MCHC 32.8 g/dl (32.0-36.0); MEAN PLT VOLUME 9.3 fl (7.5-11.1); PLATELET COUNT 394 K/MM3 (134-434); RDW 20.6 % (11.6-15.6); WHITE BLOOD COUNT 29.2 K/mm3 (4.0-10.0)
[2017-10-20 09:29] LABS: ALBUMIN 2.4 g/dl (3.4-5.0); ANION GAP 10 (8-16); BLOOD UREA NITROGEN 41 mg/dL (7-18); CALCIUM 8.7 mg/dL (8.5-10.1); CHLORIDE 92 mmol/L (98-107); CO2 30 mmol/L (21-32); GLUCOSE,RANDOM 232 mg/dL (74-106); SGOT/AST 29 U/L (15-37); SGPT/ALT 18 U/L (12-78); SODIUM 132 mmol/L (136-145)
[2017-10-20 09:30] LABS: ALK PHOS 62 U/L (45-117); BILIRUBIN,TOTAL 0.3 mg/dL (0.2-1.0); TOT PROT 6.8 g/dl (6.4-8.2)
[2017-10-20] MEDS ORDERED: PT OWN MED DRAWER 7, Y5N ONE (09:30)
[2017-10-20] MEDS: FERROUS SO4 325 MG TABLET (FP) PO SCH (09:34)
[2017-10-20] MEDS: METOPROLOL TARTRATE 25 MG TABLET (FP) PO SCH ×2 (09:34→21:36)
[2017-10-20] MEDS: SERTRALINE HCL 25 MG TABLET (FP) PO SCH (09:34)
[2017-10-20] MEDS: CALCIUM CARBONATE 650 MG TABLET PO SCH ×2 (09:34→21:37)
[2017-10-20] MEDS: ASCORBIC ACID 500 MG TABLET (FP) PO SCH (09:34)
[2017-10-20] MEDS: amLODIPine BESYLATE 5 MG TABLET (FP) PO SCH (09:35)
[2017-10-20] MEDS: PANTOPRAZOLE 40 MG TABLET (FP) PO SCH (09:35)
[2017-10-20] MEDS: MUPIROCIN 2% TOPICAL OINTMENT FOR DECOLONIZATION NS SCH ×2 (09:35→21:37)
[2017-10-20] MEDS: FUROSEMIDE 40 MG TABLET (FP) PO SCH (09:35)
[2017-10-20] MEDS: ALPRAZolam 0.25 MG TABLET PO PRN ×2 (09:44→23:28)
[2017-10-20] MEDS ORDERED: BUDESONIDE/FORMETEROL FUMARATE 160/4.5 mcg INHALER IH SCH (10:00)
[2017-10-20] MEDS: AZITHROMYCIN IVPB 500 MG in DEXTROSE 5%-WATER - 250 ML IVPB SCH (10:20)
--- NOTE | 2017-10-20 10:29 | PN ---
Progress Note (short form) - Note Progress Note: PULMONARY AWAKE/ALERT LESS SOB VSS/AFEBRILE ANICTERIC/CUSHINOID FEATURES DISTANT BUT CLEAR BREATH SOUNDS S1S2 BS+ OBESE NO EDEMA LABS/MEDS/NOTES/IMAGES REVIEWED CT CHEST PENDING Acute Hypoxic and Hypercapneic Respiratory Failure improving Pneumonia ? Sepsis resolving Lactic Acidosis improving Mantle Cell Lymphoma h/o ITP HTN DM CKD - antibiotics per ID - f/u cultures - empiric steroids, can start taper - inhaled bronchodilators standing and PRN - O2 to keep SpO2 >90% - lasix today - monitor urine output, creatinine - glucose control while on systemic steroids - DVT prophylaxis Jovanni LARRY MD
[2017-10-20] MEDS ORDERED: INSULIN (NOVOLOG) ASPART 100 UNITS/ML 10ML VIAL ONE ×2 (11:44→20:52)
--- NOTE | 2017-10-20 15:03 | PN ---
Progress Note, Physician Chief Complaint: Ms Painting continues to improve. Says her strength is improving. Says her breathing is approaching normal. No cp, sob, n/v. Complains that she is experiencing tremors. - Current Medication List Current Medications: Active Medications Acetaminophen (Tylenol -) 650 mg PO Q4H PRN PRN Reason: PAIN LEVEL 1-5 Albuterol Sulfate (Ventolin Hfa Inhaler -) 2 puff IH Q6H PRN PRN Reason: SHORTNESS OF BREATH Last Admin: 10/20/17 06:48 Dose: 2 inh Alprazolam (Xanax -) 0.5 mg PO Q8H PRN PRN Reason: ANXIETY Last Admin: 10/20/17 09:44 Dose: 0.5 mg Amlodipine Besylate (Norvasc -) 5 mg PO DAILY [facility] Last Admin: 10/20/17 09:35 Dose: 5 mg Arformoterol Tartrate (Brovana (Restricted To Pulmonology/Resp) -) 1 amp NEB RBID [facility] Last Admin: 10/20/17 07:30 Dose: 1 amp Ascorbic Acid (Vitamin C -) 1,000 mg PO DAILY [facility] Last Admin: 10/20/17 09:34 Dose: 1,000 mg Atovaquone (Mepron -) 1,500 mg PO DAILY@1900 [facility] Calcium Carbonate (Calcium Carbonate -) 650 mg PO BID [facility] Last Admin: 10/20/17 09:34 Dose: 650 mg Chlorhexidine Gluconate (Hibiclens For Decolonization -) 1 applic TP HS [facility] Ferrous Sulfate (Feosol -) 325 mg PO DAILY [facility] Last Admin: 10/20/17 09:34 Dose: 325 mg Furosemide (Lasix -) 40 mg PO DAILY [facility] Last Admin: 10/20/17 09:35 Dose: 40 mg Glipizide (Glucotrol -) 5 mg PO BIDAC [facility] Last Admin: 10/20/17 06:46 Dose: 5 mg Azithromycin 500 mg/ Dextrose 250 mls @ 250 mls/hr IVPB DAILY [facility] Last Admin: 10/20/17 10:20 Dose: 250 mls/hr Piperacillin Sod/Tazobactam (Sod 4.5 gm/ Dextrose) 100 mls @ 200 mls/hr IVPB Q8H-IV [facility] PRN Reason: Protocol Last Admin: 10/20/17 09:36 Dose: 200 mls/hr Insulin Aspart (Novolog Vial Sliding Scale -) 1 vial SQ ACHS [facility] PRN Reason: Protocol Last Admin: 10/20/17 11:45 Dose: 12 units Methylprednisolone Sodium Succinate (Solu-Medrol -) 40 mg IVPUSH Q8H-IV [facility] Last Admin: 10/20/17 09:35 Dose: 40 mg Metoprolol Tartrate (Lopressor -) 25 mg PO BID [facility] Last Admin: 10/20/17 09:34 Dose: 25 mg Morphine Sulfate (Msir -) 15 mg PO Q6H PRN PRN Reason: breakthrough pain 6-10 Last Admin: 10/20/17 04:06 Dose: 15 mg Morphine Sulfate (Ms Contin -) 60 mg PO TID [facility] Last Admin: 10/20/17 06:47 Dose: 60 mg Mupirocin (Bactroban Ointment (For Decolonization) -) 1 applic NS BID [facility] Stop: 10/23/17 21:59 Last Admin: 10/20/17 09:35 Dose: Not Given Non-Formulary Medication (Eltrombopag Olamine [Promacta]) 50 mg PO DAILY [facility] Pantoprazole Sodium (Protonix -) 40 mg PO DAILY [facility] Last Admin: 10/20/17 09:35 Dose: 40 mg Sertraline HCl (Zoloft -) 25 mg PO DAILY [facility] Last Admin: 10/20/17 09:34 Dose: 25 mg Sitagliptin Phosphate (Januvia -) 50 mg PO DAILY@0700 [facility] Last Admin: 10/20/17 06:46 Dose: 50 mg - Objective Vital Signs: Vital Signs Temperature 36.6 C 10/20/17 09:00 Pulse Rate 96 H 10/20/17 09:00 Respiratory Rate 20 10/20/17 09:00 Blood Pressure 158/90 10/20/17 09:00 O2 Sat by Pulse Oximetry (%) 98 10/20/17 09:00 Constitutional: Yes: No Distress, Calm, Obese Cardiovascular: Yes: Regular Rate and Rhythm. No: Gallop, Murmur, Rub Respiratory: Yes: Regular, CTA Bilaterally, On Nasal O2. No: Rales, Rhonchi, Wheezes Gastrointestinal: Yes: Normal Bowel Sounds, Soft. No: Distention, Tenderness Extremities: Yes: WNL Edema: No Labs: CBC, BMP 10/20/17 08:30 10/20/17 08:30 Assessment/Plan (1) Acute respiratory failure with hypoxia Assessment/Plan: -much improved -continue current management -pulmonary following -possible wean to room air Code(s): J96.01 - ACUTE RESPIRATORY FAILURE WITH HYPOXIA (2) HCAP (healthcare-associated pneumonia) Assessment/Plan: -case d/w ID -continue on vancomycin, zosyn, and azithromax -patient remains reluctant about CT scan Code(s): J18.9 - PNEUMONIA, UNSPECIFIED ORGANISM (3) CKD (chronic kidney disease) Assessment/Plan: -stable -case d/w nephrology -continue lasix Code(s): N18.9 - CHRONIC KIDNEY DISEASE, UNSPECIFIED (4) Chronic ITP (idiopathic thrombocytopenia) Assessment/Plan: -hematology following -continue promacta Code(s): D69.3 - IMMUNE THROMBOCYTOPENIC PURPURA (5) Diabetes mellitus Assessment/Plan: -difficult to control secondary to steroids -endocrinology consult Code(s): E11.9 - TYPE 2 DIABETES MELLITUS WITHOUT COMPLICATIONS Qualifiers: Diabetes mellitus type: drug or chemical induced Diabetes mellitus complication status: without complication (6) HTN (hypertension) Assessment/Plan: -continue norvasc and metoprolol -hold parameters Code(s): I10 - ESSENTIAL (PRIMARY) HYPERTENSION Qualifiers: (7) Sepsis Assessment/Plan: -antibiotics as above -improving -leukocytosis, but suspect secondary to steroids Code(s): A41.9 - SEPSIS, UNSPECIFIED ORGANISM (8) Tremors -neurology consult
[2017-10-20 16:55] VITALS: BMI 40.1
[2017-10-20] MEDS: ATOVAQUONE 750 MG/5 ML (UNIT-DOSE PACKAGING) PO SCH (18:02)
--- NOTE | 2017-10-20 19:16 | PN ---
Progress Note (short form) - Note Progress Note: Patient seen and examined Presumptive diagnosis is sepsis and Hypoxic respiratory failure with pneumonitis. Improving clinically Blood sugars have been elevated. Endocrine on board Last Vital Signs Temp Pulse Resp BP Pulse Ox 98 F 96 H 20 158/90 98 10/20/17 09:00 10/20/17 09:00 10/20/17 09:00 10/20/17 09:00 10/20/17 09:00 HEENT: DENEEN, EOM Intact Oropharynx:coated tongue Cor: RSR, No murmurs, No gallops Lungs: rales and diminished breath sounds LLL Abd: Soft, Normal bowel sounds, No organomegaly Ext: 2+ LE edema Skin: No rashes, Integument intact CBC, BMP 10/20/17 08:30 10/20/17 08:30 Impression: Hypoxic Respiratory Failure- improved DM- worsened by steroids-- endocrine ot advise Pneumonitis- antibiotics per ID Thrombocytopenia - had normalized prior to Promacta Plan: Continue off Promacta and monitor platelets.
--- NOTE | 2017-10-20 19:17 | CONSULT ---
Consult Consult Specialty:: endocrine Referred by:: evangelina Reason for Consultation:: diabetes mellitus - History of Present Illness Chief Complaint: high sugar difficulty breathing History of Present Illness: 66 year old female with a PMH of HTN, NIDDM, ITP (s/p splenectomy), diverticulitis, recurrent UTI's, and mantle cell lymphoma who presented to the ED earlier this morning c/o cough. In ED patient found to be hypoxic to SpO2 70 's and febrile. Admitted for exarcerbation copd has required iv steroids and has had elevated bs previously home sugars have been controlled with diet and compliance with meds - History Source History Provided By: Patient - Past Medical History Cardio/Vascular: Yes: HTN. No: AFIB Pulmonary: Yes: COPD, Other (elevated left hemidiaphragm) Gastrointestinal: Yes: Diverticulitis (osteoarthritis right hip). No: Ascites Hepatobiliary: No: Cirrhosis Renal/: Yes: Renal Calculi, UTI, Other (bladder dysfunction). No: Renal Failure Psych: Yes: Anxiety, Depression Musculoskeletal: Yes: Chronic low back pain, Osteoarthritis (right hip) Rheumatology: Yes: Other (degenerative spine disease) Endocrine: Yes: Diabetes Mellitus Additional Medical History: ITP, Mantle Cell Lymphoma - Past Surgical History Past Surgical History: Yes: Laminectomy (cervical laminectomy x2 (2002)), Splenectomy, Thoracotomy - Alcohol/Substance Use Hx Alcohol Use: No History of Substance Use: reports: None - Smoking History Smoking history: Never smoked Have you smoked in the past 12 months: No Aproximately how many cigarettes per day: 0 If you are a former smoker, when did you quit?: 2001 - Social History Usual Living Arrangement: Other ADL: Independent 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, , 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 History of Recent Travel: No Home Medications - Allergies Allergies/Adverse Reactions: Allergies Allergy/AdvReac Type Severity Reaction Status Date / Time ciprofloxacin HCl Allergy Intermediate Itching Verified 10/18/17 07:07 [From Cipro] levofloxacin [From Levaquin] Allergy Intermediate Rash Verified 10/18/17 07:07 atorvastatin calcium Allergy Mild muscle Verified 10/18/17 07:07 [From Lipitor] aches - Home Medications Home Medications: Ambulatory Orders Sertraline HCl [Zoloft -] 25 mg PO DAILY 08/28/14 Alprazolam [Xanax] 0.5 mg PO Q8H PRN #0 tablet 09/10/14 Pantoprazole Sodium [Protonix -] 40 mg PO DAILY #0 tablet.ec 09/10/14 Allopurinol [Zyloprim -] 150 mg PO DAILY #60 tablet 04/07/16 Albuterol Sulfate Inhaler - [Ventolin HFA Inhaler -] 1 - 2 inh PO PRN 08/09/16 Docusate Sodium [Colace -] 100 mg PO BID #60 tab-cap 10/29/16 Sitagliptin Phosphate [Januvia] 50 mg PO DAILY 03/18/17 Acetaminophen [Tylenol .Regular Strength -] 650 mg PO PRN 05/26/17 Ascorbic Acid [Vitamin C] 1,000 mg PO DAILY 08/17/17 Ferrous Sulfate 325 mg PO DAILY 08/17/17 Calcium Carbonate - 650 mg PO BID #60 tablet 08/31/17 Morphine *Sr* [MS Contin -] 60 mg PO TID #60 tab.sa MDD 180mg 08/31/17 Morphine Sulfate 15 mg PO QID PRN #30 tablet MDD 60mg 08/31/17 Amlodipine Besylate [Norvasc -] 5 mg PO DAILY #30 tablet 09/25/17 Arformoterol Tartrate [Brovana -] 1 amp NEB RBID #60 amp 09/25/17 Atovaquone [Mepron Oral Solution -] 1,500 mg PO DAILY@0800 #1 bottle 09/25/17 Budesonide/Formeterol Fumarate [SYMBICORT 160/4.5mcg -] 2 puff IH BID #1 inhaler 09/25/17 Glipizide [Glucotrol -] 5 mg PO BIDBL #60 tablet 09/25/17 Metoprolol Tartrate [Lopressor -] 25 mg PO BID #60 tablet 09/25/17 Eltrombopag Olamine [Promacta] 50 mg PO DAILY 10/18/17 Family Disease History - Family Disease History Family Disease History: Diabetes: Mother, Heart Disease: Mother, Other: Father ( thrombocytopenia), Daughter (hypothyroidism) Review of Systems - Review of Systems Constitutional: reports: Malaise Eyes: reports: No Symptoms HENT: reports: No Symptoms Neck: reports: No Symptoms Cardiovascular: reports: Shortness of Breath Respiratory: reports: SOB, SOB on Exertion Gastrointestinal: reports: Bloating Genitourinary: reports: No Symptoms Musculoskeletal: reports: Joint Swelling, Muscle Pain, Muscle Cramps, Muscle Weakness Integumentary: reports: No Symptoms Neurological: reports: Weakness Endocrine: reports: Unexplained Weight Gain Physical Exam Vital Signs: Vital Signs Temperature 98 F 10/20/17 09:00 Pulse Rate 96 H 10/20/17 09:00 Respiratory Rate 20 10/20/17 09:00 Blood Pressure 158/90 10/20/17 09:00 O2 Sat by Pulse Oximetry (%) 98 10/20/17 09:00 Constitutional: Yes: Anxious Eyes: Yes: EOM Intact HENT: Yes: Normocephalic Neck: Yes: Trachea Midline Cardiovascular: Yes: Tachycardia Respiratory: Yes: SOB on Exertion, Tachypnea Gastrointestinal: Yes: Normal Bowel Sounds ...Rectal Exam: Yes: Deferred Renal/: Yes: WNL Breast(s): Yes: WNL Musculoskeletal: Yes: WNL Edema: No Neurological: Yes: Alert Psychiatric: Yes: Alert, Oriented Labs: CBC, BMP 10/20/17 08:30 10/20/17 08:30 Assessment/Plan Current Active Problems Acute respiratory failure with hypoxia (Acute) CKD (chronic kidney disease) (Acute) Difficulty breathing (Acute) HCAP (healthcare-associated pneumonia) (Acute) History of immunocompromised state (Acute) Hypercapnic respiratory failure (Acute) Pneumonia (Acute) Pneumonia (Acute) Respiratory failure with hypoxia and hypercapnia (Acute) Abnormal Lab Results 10/20/17 10/20/17 10/20/17 08:30 08:30 08:30 WBC 29.2 H RDW 20.6 H Sodium 132 L Chloride 92 L BUN 41 H Creatinine 2.0 H Random Glucose 232 H Lactic Acid 2.3 H* Albumin 2.4 L Laboratory Results - last 24 hr 10/20/17 10/20/17 10/20/17 06:46 08:30 08:30 WBC 29.2 H RBC 3.70 Hgb 10.9 Hct 33.3 MCV 90.0 MCH 29.5 MCHC 32.8 RDW 20.6 H Plt Count 394 MPV 9.3 Sodium 132 L Potassium 4.0 Chloride 92 L Carbon Dioxide 30 Anion Gap 10 BUN 41 H Creatinine 2.0 H Creat Clearance w eGFR 24.85 POC Glucometer 246 Random Glucose 232 H Lactic Acid Calcium 8.7 Total Bilirubin 0.3 D AST 29 ALT 18 Alkaline Phosphatase 62 Total Protein 6.8 Albumin 2.4 L 10/20/17 10/20/17 10/20/17 08:30 11:38 17:38 WBC RBC Hgb Hct MCV MCH MCHC RDW Plt Count MPV Sodium Potassium Chloride Carbon Dioxide Anion Gap BUN Creatinine Creat Clearance w eGFR POC Glucometer 439 309 Random Glucose Lactic Acid 2.3 H* Calcium Total Bilirubin AST ALT Alkaline Phosphatase Total Protein Albumin Laboratory Tests 09/12/17 06:00 Hemoglobin A1c % 6.6 H plan: bgm qid novolog insulin doses levemir 15 units am if sugar over 150 am continue [id number] daily glucotrol 5mg bid
[2017-10-20] MEDS: CHLORHEXIDINE GLUCONATE 4% CLEANSER FOR DECOLONIZATION TP SCH (21:36)
[2017-10-20] MEDS: DOCUSATE SODIUM 100 MG CAPSULE (FP) PO SCH (23:28)
[2017-10-21] MEDS ORDERED: PIPERACILLIN/TAZOBACTAM 4.5 GM VIAL IVPB ONE ×3 (02:19→17:17)
[2017-10-21] MEDS ORDERED: DEXTROSE 5%-WATER 100 ML IVPB ONE ×3 (02:20→17:18)
[2017-10-21] MEDS: PIPERACILLIN/TAZOB 4.5 GM 4.5 GM in DEXTROSE 5%-WATER 100 ML IVPB SCH ×3 (02:37→17:42)
[2017-10-21] MEDS: methylPREDNISolone NA SUCC 40 MG/1 ML VIAL IVPUSH SCH ×3 (02:37→17:42)
[2017-10-21] MEDS: morphine SULFATE IMMEDIATE RELEASE 30 MG TAB PO PRN ×2 (03:45→10:21)
[2017-10-21] MEDS: morphine SO4 SUSTAINED ACTING 15 MG TABLET.SA PO SCH ×3 (06:31→23:03)
[2017-10-21] MEDS: INSULIN SLIDING SCALE (NOVOLOG) 1 VIAL SQ SCH ×4 (06:32→23:04)
[2017-10-21] MEDS: sitaGLIPtin PHOSPHATE 50 MG TABLET PO SCH (06:32)
[2017-10-21] MEDS: INSULIN (LEVEMIR) 100 UNITS/ML UNITS SQ SCH (06:32)
[2017-10-21] MEDS: glipiZIDE 5 MG TABLET (FP) PO SCH ×2 (06:32→17:09)
[2017-10-21] MEDS ORDERED: INSULIN (NOVOLOG) ASPART 100 UNITS/ML 10ML VIAL ONE (06:57)
[2017-10-21 07:24] LABS: HEMATOCRIT 33.4 % (32.4-45.2); HEMOGLOBIN 10.8 GM/dL (10.7-15.3); MCH 29.3 pg (25.7-33.7); MCHC 32.4 g/dl (32.0-36.0); MEAN CELL VOLUME 90.5 fl (80-96); MEAN PLT VOLUME 9.3 fl (7.5-11.1); PLATELET COUNT 393 K/MM3 (134-434); RBC 3.69 M/mm3 (3.60-5.2); RDW 20.1 % (11.6-15.6); WHITE BLOOD COUNT 24.4 K/mm3 (4.0-10.0)
[2017-10-21] MEDS: ARFORMOTEROL TARTRATE 15 MCG/2 ML VIAL NEB SCH ×2 (07:25→20:33)
[2017-10-21 08:13] LABS: ANION GAP 7 (8-16); BLOOD UREA NITROGEN 48 mg/dL (7-18); CALCIUM 8.6 mg/dL (8.5-10.1); CHLORIDE 93 mmol/L (98-107); CO2 34 mmol/L (21-32); CREATININE 2.1 mg/dL (0.55-1.02); GLUCOSE,RANDOM 295 mg/dL (74-106); MAGNESIUM 2.4 mg/dL (1.8-2.4); PHOSPHOROUS 3.9 mg/dL (2.5-4.9); POTASSIUM 5.2 mmol/L (3.5-5.1); SODIUM 134 mmol/L (136-145)
--- NOTE | 2017-10-21 09:41 | PN ---
Progress Note, Physician Chief Complaint: ID Imrproving daily Able to ambulate now more then before less limited by SOB - Current Medication List Current Medications: Active Medications Acetaminophen (Tylenol -) 650 mg PO Q4H PRN PRN Reason: PAIN LEVEL 1-5 Albuterol Sulfate (Ventolin Hfa Inhaler -) 2 puff IH Q6H PRN PRN Reason: SHORTNESS OF BREATH Last Admin: 10/20/17 06:48 Dose: 2 inh Alprazolam (Xanax -) 0.5 mg PO Q8H PRN PRN Reason: ANXIETY Last Admin: 10/20/17 23:28 Dose: 0.5 mg Amlodipine Besylate (Norvasc -) 5 mg PO DAILY [facility] Last Admin: 10/20/17 09:35 Dose: 5 mg Arformoterol Tartrate (Brovana (Restricted To Pulmonology/Resp) -) 1 amp NEB RBID [facility] Last Admin: 10/21/17 07:25 Dose: 1 amp Ascorbic Acid (Vitamin C -) 1,000 mg PO DAILY [facility] Last Admin: 10/20/17 09:34 Dose: 1,000 mg Atovaquone (Mepron -) 1,500 mg PO DAILY@1900 [facility] Last Admin: 10/20/17 18:02 Dose: 1,500 mg Calcium Carbonate (Calcium Carbonate -) 650 mg PO BID [facility] Last Admin: 10/20/17 21:37 Dose: 650 mg Chlorhexidine Gluconate (Hibiclens For Decolonization -) 1 applic TP HS [facility] Last Admin: 10/20/17 21:36 Dose: 1 applic Docusate Sodium (Colace -) 100 mg PO BID [facility] Last Admin: 10/20/17 23:28 Dose: 100 mg Ferrous Sulfate (Feosol -) 325 mg PO DAILY [facility] Last Admin: 10/20/17 09:34 Dose: 325 mg Furosemide (Lasix -) 40 mg PO DAILY [facility] Last Admin: 10/20/17 09:35 Dose: 40 mg Glipizide (Glucotrol -) 5 mg PO BIDAC [facility] Last Admin: 10/21/17 06:32 Dose: 5 mg Azithromycin 500 mg/ Dextrose 250 mls @ 250 mls/hr IVPB DAILY [facility] Last Admin: 10/20/17 10:20 Dose: 250 mls/hr Piperacillin Sod/Tazobactam (Sod 4.5 gm/ Dextrose) 100 mls @ 200 mls/hr IVPB Q8H-IV [facility] PRN Reason: Protocol Last Admin: 10/21/17 02:37 Dose: 200 mls/hr Insulin Aspart (Novolog Vial Sliding Scale -) 1 vial SQ ACHS [facility] PRN Reason: Protocol Last Admin: 10/21/17 06:32 Dose: 4 units Insulin Detemir (Levemir Vial) 15 units SQ AM [facility] Last Admin: 10/21/17 06:32 Dose: 15 unit Methylprednisolone Sodium Succinate (Solu-Medrol -) 40 mg IVPUSH Q8H-IV [facility] Last Admin: 10/21/17 02:37 Dose: 40 mg Metoprolol Tartrate (Lopressor -) 25 mg PO BID [facility] Last Admin: 10/20/17 21:36 Dose: Not Given Morphine Sulfate (Msir -) 15 mg PO Q6H PRN PRN Reason: breakthrough pain 6-10 Last Admin: 10/21/17 03:45 Dose: 15 mg Morphine Sulfate (Ms Contin -) 60 mg PO TID [facility] Last Admin: 10/21/17 06:31 Dose: 60 mg Mupirocin (Bactroban Ointment (For Decolonization) -) 1 applic NS BID [facility] Stop: 10/23/17 21:59 Last Admin: 10/20/17 21:37 Dose: Not Given Non-Formulary Medication (Eltrombopag Olamine [Promacta]) 50 mg PO DAILY [facility] Pantoprazole Sodium (Protonix -) 40 mg PO DAILY [facility] Last Admin: 10/20/17 09:35 Dose: 40 mg Sertraline HCl (Zoloft -) 25 mg PO DAILY [facility] Last Admin: 10/20/17 09:34 Dose: 25 mg Sitagliptin Phosphate (Januvia -) 50 mg PO DAILY@0700 [facility] Last Admin: 10/21/17 06:32 Dose: 50 mg - Objective Vital Signs: Vital Signs Temperature 97.6 F 10/21/17 06:00 Pulse Rate 64 10/21/17 06:00 Respiratory Rate 20 10/21/17 06:00 Blood Pressure 143/63 10/21/17 06:00 O2 Sat by Pulse Oximetry (%) 94 L 10/20/17 21:00 Constitutional: Yes: Obese Eyes: Yes: WNL, Conjunctiva Clear, Occular Prosthesis Neck: Yes: Supple Cardiovascular: Yes: Regular Rate and Rhythm, S1, S2. No: Murmur Respiratory: Yes: WNL, Regular, CTA Bilaterally. No: Rales, Rhonchi Gastrointestinal: Yes: Abdomen, Obese. No: Tenderness, Tenderness, Epigastrium Edema: Yes Labs: CBC, BMP 10/21/17 06:00 10/21/17 06:00 Assessment/Plan Microbiology 10/18/17 18:45 Nasopharyngeal Swab Influenza Types A,B Antigen ([facility]ALEY) - Final 10/18/17 18:45 Nasopharyngeal Swab - Final 10/18/17 14:00 Urine For Antigen Detection Legionella Antigen - Final 10/18/17 14:00 Urine For Antigen Detection Streptococcus pneumoniae Antigen (M - Final 10/18/17 07:09 Urine - Urine Clean Catch Urine Culture - Final NO GROWTH OBTAINED 10/18/17 07:09 Blood - Peripheral Venous Blood Culture - Preliminary NO GROWTH OBTAINED AFTER 72 HOURS, INCUBATION TO CONTINUE FOR 2 DAYS. 10/18/17 07:09 Blood - Peripheral Venous Blood Culture - Preliminary NO GROWTH OBTAINED AFTER 72 HOURS, INCUBATION TO CONTINUE FOR 2 DAYS. Laboratory Tests 10/21/17 10/21/17 06:00 06:00 WBC 24.4 H Hgb 10.8 Hct 33.4 Plt Count 393 BUN 48 H Creatinine 2.1 H Assessment Bilateral pneumonitis unspecified etiology History of Mantle cell Lymphoma Thrombocytopenia Respiratory failure improved Plan She seems to be getting better with combination of antibiotics and steroids so continue same management through the weekend Dotty OLIVO
[2017-10-21] MEDS: AZITHROMYCIN IVPB 500 MG in DEXTROSE 5%-WATER - 250 ML IVPB SCH (10:02)
[2017-10-21] MEDS: ASCORBIC ACID 500 MG TABLET (FP) PO SCH (10:03)
[2017-10-21] MEDS: SERTRALINE HCL 25 MG TABLET (FP) PO SCH (10:03)
[2017-10-21] MEDS: MUPIROCIN 2% TOPICAL OINTMENT FOR DECOLONIZATION NS SCH ×2 (10:04→23:04)
[2017-10-21] MEDS: FERROUS SO4 325 MG TABLET (FP) PO SCH (10:04)
[2017-10-21] MEDS: amLODIPine BESYLATE 5 MG TABLET (FP) PO SCH (10:04)
[2017-10-21] MEDS: METOPROLOL TARTRATE 25 MG TABLET (FP) PO SCH ×2 (10:04→23:03)
[2017-10-21] MEDS: PANTOPRAZOLE 40 MG TABLET (FP) PO SCH (10:04)
[2017-10-21] MEDS: DOCUSATE SODIUM 100 MG CAPSULE (FP) PO SCH ×2 (10:04→23:03)
[2017-10-21] MEDS: FUROSEMIDE 40 MG TABLET (FP) PO SCH (10:04)
[2017-10-21] MEDS: ALPRAZolam 0.25 MG TABLET PO PRN ×2 (10:20→23:02)
[2017-10-21] MEDS: CALCIUM CARBONATE 650 MG TABLET PO SCH ×2 (10:22→23:04)
--- NOTE | 2017-10-21 10:27 | PN ---
Progress Note, Physician History of Present Illness: Still getting short of breath with exertion. Overall breathing much better than when she came in. Starting to get a little phlegm now. Some swelling in legs, on 40 mg lasix now. - Current Medication List Current Medications: Active Medications Acetaminophen (Tylenol -) 650 mg PO Q4H PRN PRN Reason: PAIN LEVEL 1-5 Albuterol Sulfate (Ventolin Hfa Inhaler -) 2 puff IH Q6H PRN PRN Reason: SHORTNESS OF BREATH Last Admin: 10/20/17 06:48 Dose: 2 inh Alprazolam (Xanax -) 0.5 mg PO Q8H PRN PRN Reason: ANXIETY Last Admin: 10/20/17 23:28 Dose: 0.5 mg Amlodipine Besylate (Norvasc -) 5 mg PO DAILY [facility] Last Admin: 10/21/17 10:04 Dose: 5 mg Arformoterol Tartrate (Brovana (Restricted To Pulmonology/Resp) -) 1 amp NEB RBID [facility] Last Admin: 10/21/17 07:25 Dose: 1 amp Ascorbic Acid (Vitamin C -) 1,000 mg PO DAILY [facility] Last Admin: 10/21/17 10:03 Dose: 1,000 mg Atovaquone (Mepron -) 1,500 mg PO DAILY@1900 [facility] Last Admin: 10/20/17 18:02 Dose: 1,500 mg Calcium Carbonate (Calcium Carbonate -) 650 mg PO BID [facility] Last Admin: 10/20/17 21:37 Dose: 650 mg Chlorhexidine Gluconate (Hibiclens For Decolonization -) 1 applic TP HS [facility] Last Admin: 10/20/17 21:36 Dose: 1 applic Docusate Sodium (Colace -) 100 mg PO BID [facility] Last Admin: 10/21/17 10:04 Dose: 100 mg Ferrous Sulfate (Feosol -) 325 mg PO DAILY [facility] Last Admin: 10/21/17 10:04 Dose: 325 mg Furosemide (Lasix -) 40 mg PO DAILY [facility] Last Admin: 10/21/17 10:04 Dose: 40 mg Glipizide (Glucotrol -) 5 mg PO BIDAC [facility] Last Admin: 10/21/17 06:32 Dose: 5 mg Azithromycin 500 mg/ Dextrose 250 mls @ 250 mls/hr IVPB DAILY [facility] Last Admin: 10/21/17 10:02 Dose: 250 mls/hr Piperacillin Sod/Tazobactam (Sod 4.5 gm/ Dextrose) 100 mls @ 200 mls/hr IVPB Q8H-IV [facility] PRN Reason: Protocol Last Admin: 10/21/17 10:05 Dose: 200 mls/hr Insulin Aspart (Novolog Vial Sliding Scale -) 1 vial SQ ACHS [facility] PRN Reason: Protocol Last Admin: 10/21/17 06:32 Dose: 4 units Insulin Detemir (Levemir Vial) 15 units SQ AM [facility] Last Admin: 10/21/17 06:32 Dose: 15 unit Methylprednisolone Sodium Succinate (Solu-Medrol -) 40 mg IVPUSH Q8H-IV [facility] Last Admin: 10/21/17 10:03 Dose: 40 mg Metoprolol Tartrate (Lopressor -) 25 mg PO BID [facility] Last Admin: 10/21/17 10:04 Dose: 25 mg Morphine Sulfate (Msir -) 15 mg PO Q6H PRN PRN Reason: breakthrough pain 6-10 Last Admin: 10/21/17 03:45 Dose: 15 mg Morphine Sulfate (Ms Contin -) 60 mg PO TID [facility] Last Admin: 10/21/17 06:31 Dose: 60 mg Mupirocin (Bactroban Ointment (For Decolonization) -) 1 applic NS BID [facility] Stop: 10/23/17 21:59 Last Admin: 10/21/17 10:04 Dose: Not Given Non-Formulary Medication (Eltrombopag Olamine [Promacta]) 50 mg PO DAILY [facility] Pantoprazole Sodium (Protonix -) 40 mg PO DAILY [facility] Last Admin: 10/21/17 10:04 Dose: 40 mg Sertraline HCl (Zoloft -) 25 mg PO DAILY [facility] Last Admin: 10/21/17 10:03 Dose: 25 mg Sitagliptin Phosphate (Januvia -) 50 mg PO DAILY@0700 [facility] Last Admin: 10/21/17 06:32 Dose: 50 mg - Objective Vital Signs: Vital Signs Temperature 98.2 F 10/21/17 10:00 Pulse Rate 79 10/21/17 10:00 Respiratory Rate 20 10/21/17 10:00 Blood Pressure 138/65 10/21/17 10:00 O2 Sat by Pulse Oximetry (%) 94 L 10/20/17 21:00 Constitutional: Yes: No Distress, Calm Eyes: Yes: Conjunctiva Clear, EOM Intact, PERRL HENT: Yes: Atraumatic, Normocephalic Neck: Yes: Supple, Trachea Midline Cardiovascular: Yes: Regular Rate and Rhythm, S1, S2. 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
[2017-10-21 10:52] LABS: PLATELET ESTIMATE SLT INCREASE
--- NOTE | 2017-10-21 11:00 | PN ---
Progress Note (short form) - Note Progress Note: PULMONARY AWAKE/ALERT LESS SOB VSS/AFEBRILE ANICTERIC/CUSHINOID FEATURES DISTANT BUT CLEAR BREATH SOUNDS S1S2 BS+ OBESE NO EDEMA LABS/MEDS/NOTES/IMAGES REVIEWED CT CHEST REVIEWED Acute Hypoxic and Hypercapneic Respiratory Failure improved Pneumonitis Sepsis resolving Lactic Acidosis improving Mantle Cell Lymphoma h/o ITP HTN DM CKD - antibiotics per ID - f/u cultures - empiric steroids - inhaled bronchodilators standing and PRN - O2 to keep SpO2 >90% - lasix today - monitor urine output, creatinine - glucose control while on systemic steroids - DVT prophylaxis Jovanni LARRY MD
--- NOTE | 2017-10-21 12:52 | PN ---
Progress Note (short form) - Note Progress Note: Renal follow up for CKD pt seen and examined at the bedside awake and alert no acute complaints no sob, chest pain, abd pain + cough Vital Signs Temperature 98.2 F 10/21/17 10:00 Pulse Rate 79 10/21/17 10:00 Respiratory Rate 20 10/21/17 10:00 Blood Pressure 138/65 10/21/17 10:00 O2 Sat by Pulse Oximetry (%) 94 L 10/20/17 21:00 Intake & Output 10/18/17 10/19/17 10/20/17 10/21/17 23:59 23:59 23:59 23:59 Intake Total 2100 1400 475 Output Total 2400 2300 3800 1200 Balance -300 900 -3328 -1200 Weight 115.4 kg 113.115 kg 112.945 kg NAD awake and alert RRR, NO m/R Dec Bs at lung bases obese, NT/ND + edema in LE CBC, BMP 10/21/17 06:00 10/21/17 06:00 Current Medications Acetaminophen (Tylenol -) 650 mg PO Q4H PRN PRN Reason: PAIN LEVEL 1-5 Albuterol Sulfate (Ventolin Hfa Inhaler -) 2 puff IH Q6H PRN PRN Reason: SHORTNESS OF BREATH Last Admin: 10/20/17 06:48 Dose: 2 inh Alprazolam (Xanax -) 0.5 mg PO Q8H PRN PRN Reason: ANXIETY Last Admin: 10/21/17 10:20 Dose: 0.5 mg Amlodipine Besylate (Norvasc -) 5 mg PO DAILY [facility] Last Admin: 10/21/17 10:04 Dose: 5 mg Arformoterol Tartrate (Brovana (Restricted To Pulmonology/Resp) -) 1 amp NEB RBID [facility] Last Admin: 10/21/17 07:25 Dose: 1 amp Ascorbic Acid (Vitamin C -) 1,000 mg PO DAILY [facility] Last Admin: 10/21/17 10:03 Dose: 1,000 mg Atovaquone (Mepron -) 1,500 mg PO DAILY@1900 [facility] Last Admin: 10/20/17 18:02 Dose: 1,500 mg Calcium Carbonate (Calcium Carbonate -) 650 mg PO BID [facility] Last Admin: 10/21/17 10:22 Dose: 650 mg Chlorhexidine Gluconate (Hibiclens For Decolonization -) 1 applic TP HS [facility] Last Admin: 10/20/17 21:36 Dose: 1 applic Docusate Sodium (Colace -) 100 mg PO BID [facility] Last Admin: 10/21/17 10:04 Dose: 100 mg Ferrous Sulfate (Feosol -) 325 mg PO DAILY [facility] Last Admin: 10/21/17 10:04 Dose: 325 mg Furosemide (Lasix -) 40 mg PO DAILY [facility] Last Admin: 10/21/17 10:04 Dose: 40 mg Furosemide (Lasix -) 40 mg PO ONCE ONE Stop: 10/21/17 16:01 Glipizide (Glucotrol -) 5 mg PO BIDAC [facility] Last Admin: 10/21/17 06:32 Dose: 5 mg Azithromycin 500 mg/ Dextrose 250 mls @ 250 mls/hr IVPB DAILY [facility] Last Admin: 10/21/17 10:02 Dose: 250 mls/hr Piperacillin Sod/Tazobactam (Sod 4.5 gm/ Dextrose) 100 mls @ 200 mls/hr IVPB Q8H-IV [facility] PRN Reason: Protocol Last Admin: 10/21/17 10:05 Dose: 200 mls/hr Insulin Aspart (Novolog Vial Sliding Scale -) 1 vial SQ ACHS [facility] PRN Reason: Protocol Last Admin: 10/21/17 11:30 Dose: 8 units Insulin Detemir (Levemir Vial) 15 units SQ AM [facility] Last Admin: 10/21/17 06:32 Dose: 15 unit Methylprednisolone Sodium Succinate (Solu-Medrol -) 40 mg IVPUSH Q8H-IV [facility] Last Admin: 10/21/17 10:03 Dose: 40 mg Metoprolol Tartrate (Lopressor -) 25 mg PO BID [facility] Last Admin: 10/21/17 10:04 Dose: 25 mg Morphine Sulfate (Msir -) 15 mg PO Q6H PRN PRN Reason: breakthrough pain 6-10 Last Admin: 10/21/17 10:21 Dose: 15 mg Morphine Sulfate (Ms Contin -) 60 mg PO TID [facility] Last Admin: 10/21/17 06:31 Dose: 60 mg Mupirocin (Bactroban Ointment (For Decolonization) -) 1 applic NS BID [facility] Stop: 10/23/17 21:59 Last Admin: 10/21/17 10:04 Dose: Not Given Non-Formulary Medication (Eltrombopag Olamine [Promacta]) 50 mg PO DAILY [facility] Pantoprazole Sodium (Protonix -) 40 mg PO DAILY [facility] Last Admin: 10/21/17 10:04 Dose: 40 mg Sertraline HCl (Zoloft -) 25 mg PO DAILY [facility] Last Admin: 10/21/17 10:03 Dose: 25 mg Sitagliptin Phosphate (Januvia -) 50 mg PO DAILY@0700 [facility] Last Admin: 10/21/17 06:32 Dose: 50 mg 67 year old woman with PMhx of CKD, Mantle Cell Lymphoma, ITP, IDDM, Hypertension, chronic hydronephorosis who presents with SOB and cough and found to be hypoxic in setting of PNA with Cr of 2. #CKD Stage 3 #ITP #Hx of Mantle Cell Lymphoma #Sepsis/PNA #Hx of Hydronephrosis Renal function stable BUN higher, likely related to steroids change diet to Low K continue Abx as per ID Continue Lasix daily Dash Padron DO
--- NOTE | 2017-10-21 13:24 | PN ---
Progress Note (short form) - Note Progress Note: Hematology/Oncology Follow-up Note S: Patient feels better today, her SOB is improved. Not symptomatic anymore Last Vital Signs Temp Pulse Resp BP Pulse Ox 98.2 F 79 20 138/65 99 10/21/17 10:00 10/21/17 10:00 10/21/17 10:00 10/21/17 10:00 10/21/17 09:00 Physical exam : On O2 via NC Awake, alert, pleasant CTA(BL) Soft abdomen No c/c/e CBC, BMP 10/21/17 06:00 10/21/17 06:00 Current Medications Generic Name Dose Route Start Last Admin Trade Name Freq PRN Reason Stop Dose Admin Acetaminophen 650 mg 10/19/17 22:19 Tylenol - PO Q4H PRN PAIN LEVEL 1-5 Albuterol Sulfate 2 puff 10/19/17 22:19 10/20/17 06:48 Ventolin Hfa Inhaler - IH 2 inh Q6H PRN Administration SHORTNESS OF BREATH Alprazolam 0.5 mg 10/19/17 22:19 10/21/17 10:20 Xanax - PO 0.5 mg Q8H PRN Administration ANXIETY Amlodipine Besylate 5 mg 10/20/17 10:00 10/21/17 10:04 Norvasc - PO 5 mg DAILY PRASHANT Administration Arformoterol Tartrate 1 amp 10/20/17 08:00 10/21/17 07:25 Brovana (Restricted To Pulmonology/Resp) - NEB 1 amp RBID PRASHANT Administration Ascorbic Acid 1,000 mg 10/20/17 10:00 10/21/17 10:03 Vitamin C - PO 1,000 mg DAILY PRASHANT Administration Atovaquone 1,500 mg 10/20/17 19:00 10/20/17 18:02 Mepron - PO 1,500 mg DAILY@1900 PRASHANT Administration Calcium Carbonate 650 mg 10/20/17 10:00 10/21/17 10:22 Calcium Carbonate - PO 650 mg BID PRASHANT Administration Chlorhexidine Gluconate 1 applic 10/20/17 22:00 10/20/17 21:36 Hibiclens For Decolonization - TP 1 applic HS PRASHANT Administration Docusate Sodium 100 mg 10/20/17 23:15 10/21/17 10:04 Colace - PO 100 mg BID PRASHANT Administration Ferrous Sulfate 325 mg 10/20/17 10:00 10/21/17 10:04 Feosol - PO 325 mg DAILY PRASHANT Administration Furosemide 40 mg 10/20/17 10:00 10/21/17 10:04 Lasix - PO 40 mg DAILY PRASHANT Administration Furosemide 40 mg 10/21/17 16:00 Lasix - PO 10/21/17 16:01 ONCE ONE Glipizide 5 mg 10/20/17 07:00 10/21/17 06:32 Glucotrol - PO 5 mg BIDAC PRASHANT Administration Azithromycin 500 mg/ Dextrose 250 mls @ 250 mls/hr 10/20/17 10:00 10/21/17 10 :02 IVPB 250 mls/hr DAILY PRASHANT Administration Piperacillin Sod/Tazobactam 100 mls @ 200 mls/hr 10/20/17 02:00 10/21/17 10: 05 Sod 4.5 gm/ Dextrose IVPB 200 mls/hr Q8H-IV PRASHANT Administration Protocol Insulin Aspart 1 vial 10/20/17 07:00 10/21/17 11:30 Novolog Vial Sliding Scale - SQ 8 units ACHS PRASHANT Administration Protocol Insulin Detemir 15 units 10/21/17 07:00 10/21/17 06:32 Levemir Vial SQ 15 unit AM PRASHANT Administration Methylprednisolone Sodium Succinate 40 mg 10/20/17 02:00 10/21/17 10:03 Solu-Medrol - IVPUSH 40 mg Q8H-IV PRASHANT Administration Metoprolol Tartrate 25 mg 10/20/17 10:00 10/21/17 10:04 Lopressor - PO 25 mg BID PRASHANT Administration Morphine Sulfate 15 mg 10/19/17 22:19 10/21/17 10:21 Msir - PO 15 mg Q6H PRN Administration breakthrough pain 6-10 Morphine Sulfate 60 mg 10/20/17 06:00 10/21/17 06:31 Ms Contin - PO 60 mg TID PRASHANT Administration Mupirocin 1 applic 10/20/17 10:00 10/21/17 10:04 Bactroban Ointment (For Decolonization) - NS 10/23/17 21:59 Not Given BID [facility] Non-Formulary Medication 50 mg 10/20/17 10:00 Eltrombopag Olamine [Promacta] PO DAILY [facility] Pantoprazole Sodium 40 mg 10/20/17 10:00 10/21/17 10:04 Protonix - PO 40 mg DAILY PRASHANT Administration Sertraline HCl 25 mg 10/20/17 10:00 10/21/17 10:03 Zoloft - PO 25 mg DAILY PRASHANT Administration Sitagliptin Phosphate 50 mg 10/20/17 07:00 10/21/17 06:32 Januvia - PO 50 mg DAILY@0700 PRASHANT Administration A/P : Her SOB has improved, continue with supplemental O2 -Abx per ID -Plts are stable off promacta -increased WBC counts with increased neutrophils likely from infection, will monitor
[2017-10-21] MEDS ORDERED: FUROSEMIDE 40 MG TABLET (FP) PO ONE (16:00)
[2017-10-21] MEDS: ATOVAQUONE 750 MG/5 ML (UNIT-DOSE PACKAGING) PO SCH (18:33)
[2017-10-21] MEDS ORDERED: PT OWN MED DRAWER 7, Y5N ONE (21:01)
[2017-10-21] MEDS: CHLORHEXIDINE GLUCONATE 4% CLEANSER FOR DECOLONIZATION TP SCH (23:03)
[2017-10-22] MEDS ORDERED: PIPERACILLIN/TAZOBACTAM 4.5 GM VIAL IVPB ONE ×3 (01:34→18:41)
[2017-10-22] MEDS ORDERED: DEXTROSE 5%-WATER 100 ML IVPB ONE ×3 (01:34→18:41)
[2017-10-22] MEDS: PIPERACILLIN/TAZOB 4.5 GM 4.5 GM in DEXTROSE 5%-WATER 100 ML IVPB SCH ×3 (02:03→18:52)
[2017-10-22] MEDS: methylPREDNISolone NA SUCC 40 MG/1 ML VIAL IVPUSH SCH ×3 (02:04→18:53)
[2017-10-22] MEDS: INSULIN SLIDING SCALE (NOVOLOG) 1 VIAL SQ SCH ×4 (06:57→22:26)
[2017-10-22] MEDS: glipiZIDE 5 MG TABLET (FP) PO SCH ×2 (06:57→16:50)
[2017-10-22] MEDS: morphine SO4 SUSTAINED ACTING 15 MG TABLET.SA PO SCH ×3 (06:57→22:25)
[2017-10-22] MEDS: INSULIN (LEVEMIR) 100 UNITS/ML UNITS SQ SCH (06:57)
[2017-10-22] MEDS: sitaGLIPtin PHOSPHATE 50 MG TABLET PO SCH (06:57)
[2017-10-22] MEDS: ARFORMOTEROL TARTRATE 15 MCG/2 ML VIAL NEB SCH ×2 (07:50→20:54)
[2017-10-22 08:06] LABS: HEMATOCRIT 38.2 % (32.4-45.2); HEMOGLOBIN 12.1 GM/dL (10.7-15.3); MCH 28.7 pg (25.7-33.7); MCHC 31.6 g/dl (32.0-36.0); MEAN CELL VOLUME 90.9 fl (80-96); MEAN PLT VOLUME 9.5 fl (7.5-11.1); PLATELET COUNT 515 K/MM3 (134-434); RDW 19.3 % (11.6-15.6)
[2017-10-22 08:23] LABS: CHLORIDE 89 mmol/L (98-107); POTASSIUM 4.2 mmol/L (3.5-5.1); SODIUM 135 mmol/L (136-145)
[2017-10-22 08:26] LABS: ALBUMIN 2.8 g/dl (3.4-5.0); ANION GAP 8 (8-16); BLOOD UREA NITROGEN 49 mg/dL (7-18); CALCIUM 9.3 mg/dL (8.5-10.1); CO2 38 mmol/L (21-32); CREATININE 2.4 mg/dL (0.55-1.02); GLUCOSE,RANDOM 130 mg/dL (74-106); SGOT/AST 16 U/L (15-37); SGPT/ALT 21 U/L (12-78)
[2017-10-22 08:29] LABS: ALK PHOS 71 U/L (45-117); BILIRUBIN,TOTAL 0.4 mg/dL (0.2-1.0); TOT PROT 7.6 g/dl (6.4-8.2)
[2017-10-22] MEDS: ALBUTEROL SO4 18 GM HFA INHALER IH PRN ×2 (10:00→18:52)
--- NOTE | 2017-10-22 10:19 | PN ---
Progress Note, Physician History of Present Illness: Feeling alittle less short of breath today. Did cough up some phlegm. - Current Medication List Current Medications: Active Medications Acetaminophen (Tylenol -) 650 mg PO Q4H PRN PRN Reason: PAIN LEVEL 1-5 Albuterol Sulfate (Ventolin Hfa Inhaler -) 2 puff IH Q6H PRN PRN Reason: SHORTNESS OF BREATH Last Admin: 10/20/17 06:48 Dose: 2 inh Alprazolam (Xanax -) 0.5 mg PO Q8H PRN PRN Reason: ANXIETY Last Admin: 10/21/17 23:02 Dose: 0.5 mg Amlodipine Besylate (Norvasc -) 5 mg PO DAILY [facility] Last Admin: 10/21/17 10:04 Dose: 5 mg Arformoterol Tartrate (Brovana (Restricted To Pulmonology/Resp) -) 1 amp NEB RBID [facility] Last Admin: 10/22/17 07:50 Dose: 1 amp Ascorbic Acid (Vitamin C -) 1,000 mg PO DAILY [facility] Last Admin: 10/21/17 10:03 Dose: 1,000 mg Atovaquone (Mepron -) 1,500 mg PO DAILY@1900 [facility] Last Admin: 10/21/17 18:33 Dose: 1,500 mg Calcium Carbonate (Calcium Carbonate -) 650 mg PO BID [facility] Last Admin: 10/21/17 23:04 Dose: 650 mg Chlorhexidine Gluconate (Hibiclens For Decolonization -) 1 applic TP HS [facility] Last Admin: 10/21/17 23:03 Dose: 1 applic Docusate Sodium (Colace -) 100 mg PO BID [facility] Last Admin: 10/21/17 23:03 Dose: 100 mg Ferrous Sulfate (Feosol -) 325 mg PO DAILY [facility] Last Admin: 10/21/17 10:04 Dose: 325 mg Glipizide (Glucotrol -) 5 mg PO BIDAC [facility] Last Admin: 10/22/17 06:57 Dose: 5 mg Azithromycin 500 mg/ Dextrose 250 mls @ 250 mls/hr IVPB DAILY [facility] Last Admin: 10/21/17 10:02 Dose: 250 mls/hr Piperacillin Sod/Tazobactam (Sod 4.5 gm/ Dextrose) 100 mls @ 200 mls/hr IVPB Q8H-IV [facility] PRN Reason: Protocol Last Admin: 10/22/17 02:03 Dose: 200 mls/hr Insulin Aspart (Novolog Vial Sliding Scale -) 1 vial SQ ACHS [facility] PRN Reason: Protocol Last Admin: 10/22/17 06:57 Dose: Not Given Insulin Detemir (Levemir Vial) 15 units SQ AM [facility] Last Admin: 10/22/17 06:57 Dose: 15 unit Methylprednisolone Sodium Succinate (Solu-Medrol -) 40 mg IVPUSH Q8H-IV [facility] Last Admin: 10/22/17 02:04 Dose: 40 mg Metoprolol Tartrate (Lopressor -) 25 mg PO BID [facility] Last Admin: 10/21/17 23:03 Dose: 25 mg Morphine Sulfate (Msir -) 15 mg PO Q6H PRN PRN Reason: breakthrough pain 6-10 Last Admin: 10/21/17 10:21 Dose: 15 mg Morphine Sulfate (Ms Contin -) 60 mg PO TID [facility] Last Admin: 10/22/17 06:57 Dose: 60 mg Mupirocin (Bactroban Ointment (For Decolonization) -) 1 applic NS BID [facility] Stop: 10/23/17 21:59 Last Admin: 10/21/17 23:04 Dose: Not Given Non-Formulary Medication (Eltrombopag Olamine [Promacta]) 50 mg PO DAILY [facility] Pantoprazole Sodium (Protonix -) 40 mg PO DAILY [facility] Last Admin: 10/21/17 10:04 Dose: 40 mg Sertraline HCl (Zoloft -) 25 mg PO DAILY [facility] Last Admin: 10/21/17 10:03 Dose: 25 mg Sitagliptin Phosphate (Januvia -) 50 mg PO DAILY@0700 [facility] Last Admin: 10/22/17 06:57 Dose: 50 mg - Objective Vital Signs: Vital Signs Temperature 97.8 F 10/22/17 09:45 Pulse Rate 70 10/22/17 09:45 Respiratory Rate 18 10/22/17 09:45 Blood Pressure 131/79 10/22/17 09:45 O2 Sat by Pulse Oximetry (%) 95 10/22/17 07:49 Constitutional: Yes: No Distress, Calm Neck: Yes: Supple, Trachea Midline Cardiovascular: Yes: Regular Rate and Rhythm, S1, S2. No: Murmur Respiratory: Yes: Regular, Diminished (left base). No: Wheezes Gastrointestinal: Yes: Normal Bowel Sounds, Soft. 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
[2017-10-22 10:36] LABS: ANISOCYTOSIS 1+; MACROCYTOSIS 1+
--- NOTE | 2017-10-22 10:39 | PN ---
Progress Note (short form) - Note Progress Note: Chief Complaint: Events noted, notes reviewed, progressive dyspnea with minimal physical activity, denies any orthopnea or PND, denies any chest discomfort History of Present Illness: Seen and examined on telemetry. Full consult dictated Echocardiography dated 08/18/2017 revealed normal bi-ventricular size and function, mild MR and TR - Current Medication List Current Medications Acetaminophen (Tylenol -) 650 mg PO Q4H PRN PRN Reason: PAIN LEVEL 1-5 Albuterol Sulfate (Ventolin Hfa Inhaler -) 2 puff IH Q6H PRN PRN Reason: SHORTNESS OF BREATH Last Admin: 10/20/17 06:48 Dose: 2 inh Alprazolam (Xanax -) 0.5 mg PO Q8H PRN PRN Reason: ANXIETY Last Admin: 10/21/17 23:02 Dose: 0.5 mg Amlodipine Besylate (Norvasc -) 5 mg PO DAILY [facility] Last Admin: 10/21/17 10:04 Dose: 5 mg Arformoterol Tartrate (Brovana (Restricted To Pulmonology/Resp) -) 1 amp NEB RBID [facility] Last Admin: 10/22/17 07:50 Dose: 1 amp Ascorbic Acid (Vitamin C -) 1,000 mg PO DAILY [facility] Last Admin: 10/21/17 10:03 Dose: 1,000 mg Atovaquone (Mepron -) 1,500 mg PO DAILY@1900 [facility] Last Admin: 10/21/17 18:33 Dose: 1,500 mg Calcium Carbonate (Calcium Carbonate -) 650 mg PO BID [facility] Last Admin: 10/21/17 23:04 Dose: 650 mg Chlorhexidine Gluconate (Hibiclens For Decolonization -) 1 applic TP HS [facility] Last Admin: 10/21/17 23:03 Dose: 1 applic Docusate Sodium (Colace -) 100 mg PO BID [facility] Last Admin: 10/21/17 23:03 Dose: 100 mg Ferrous Sulfate (Feosol -) 325 mg PO DAILY [facility] Last Admin: 10/21/17 10:04 Dose: 325 mg Glipizide (Glucotrol -) 5 mg PO BIDAC [facility] Last Admin: 10/22/17 06:57 Dose: 5 mg Azithromycin 500 mg/ Dextrose 250 mls @ 250 mls/hr IVPB DAILY [facility] Last Admin: 10/21/17 10:02 Dose: 250 mls/hr Piperacillin Sod/Tazobactam (Sod 4.5 gm/ Dextrose) 100 mls @ 200 mls/hr IVPB Q8H-IV [facility] PRN Reason: Protocol Last Admin: 10/22/17 02:03 Dose: 200 mls/hr Insulin Aspart (Novolog Vial Sliding Scale -) 1 vial SQ ACHS [facility] PRN Reason: Protocol Last Admin: 10/22/17 06:57 Dose: Not Given Insulin Detemir (Levemir Vial) 15 units SQ AM [facility] Last Admin: 10/22/17 06:57 Dose: 15 unit Methylprednisolone Sodium Succinate (Solu-Medrol -) 40 mg IVPUSH Q8H-IV [facility] Last Admin: 10/22/17 02:04 Dose: 40 mg Metoprolol Tartrate (Lopressor -) 25 mg PO BID [facility] Last Admin: 10/21/17 23:03 Dose: 25 mg Morphine Sulfate (Msir -) 15 mg PO Q6H PRN PRN Reason: breakthrough pain 6-10 Last Admin: 10/21/17 10:21 Dose: 15 mg Morphine Sulfate (Ms Contin -) 60 mg PO TID [facility] Last Admin: 10/22/17 06:57 Dose: 60 mg Mupirocin (Bactroban Ointment (For Decolonization) -) 1 applic NS BID [facility] Stop: 10/23/17 21:59 Last Admin: 10/21/17 23:04 Dose: Not Given Non-Formulary Medication (Eltrombopag Olamine [Promacta]) 50 mg PO DAILY [facility] Pantoprazole Sodium (Protonix -) 40 mg PO DAILY [facility] Last Admin: 10/21/17 10:04 Dose: 40 mg Sertraline HCl (Zoloft -) 25 mg PO DAILY [facility] Last Admin: 10/21/17 10:03 Dose: 25 mg Sitagliptin Phosphate (Januvia -) 50 mg PO DAILY@0700 [facility] Last Admin: 10/22/17 06:57 Dose: 50 mg Review of Systems Cardiovascular: As noted above Respiratory: denies: Cough or Sputum Production Gastrointestinal: denies: Nausea, Vomiting, Diarrhea, Constipation or Abdominal Discomfort Musculoskeletal: No Symptoms Reported Endocrine: Diabetes Mellitus - Objective Vital Signs: Last Vital Signs Temp Pulse Resp BP Pulse Ox 97.8 F 70 18 131/79 95 10/22/17 09:45 10/22/17 09:45 10/22/17 09:45 10/22/17 09:45 10/22/17 07:49 Intake & Output 10/19/17 10/20/17 10/21/17 10/22/17 23:59 23:59 23:59 23:59 Intake Total 1400 475 250 Output Total 2300 3800 3100 Balance -900 -7501 -3103 250 Weight 249 lb 6 oz 249 lb 248 lb 9 oz Constitutional: No Distress, Calm, Obese Neck: Supple Negative JVD No Bruit Respiratory: Diminished Breath Sounds at the Bases Bilaterally with Scattered Rhonchi Cardiovascular: S1 S2 Regular Rate and Rhythm Grade 1-2/6 DAYNE Gastrointestinal: Soft Benign Normal Bowel Sounds Ext: Trace Edema Labs: Troponin, BNP 10/22/17 06:00 B-Natriuretic Peptide 2869.20 H CBC, BMP 10/22/17 06:00 10/22/17 06:00 Hepatic Panel Total Bilirubin 0.4 mg/dL (0.2-1.0) D 10/22/17 06:00 AST 16 U/L (15-37) 10/22/17 06:00 ALT 21 U/L (12-78) 10/22/17 06:00 Alkaline Phosphatase 71 U/L (45-117) 10/22/17 06:00 Albumin 2.8 g/dl (3.4-5.0) L 10/22/17 06:00 Assessment/Plan ASSESSMENT: 1. Acute Hypoxic and Hypercapneic Respiratory Failure, related to pneumonia, resolving and 2. Acute on chronic class II NYHA classification LV failure related to diastolic LV dysfunction 3. CAD angina pectoris to be considered in the differential 4. HTN 5. Diabetes mellitus 6. Hypercholesterolemia 7. COPD 8. Acute on CKD 9. History of thrombocytopenia post splenectomy, history of ITP 10. History of Mantle cell lymphoma 11. History of degenerative joint disease 12. Morbid obesity PLAN: 1. Continue Lopressor 2. Continue Norvasc 3. Resume Diuretics with close monitoring of renal function 4. Ideally ACEI or ARBS are recommended unless absolutely contraindicated with close monitoring of renal function, once renal function at baseline 5. Recommend pharmacologic MPI study as outpatient for further evaluation of CAD , ischemic burden Nick Medina M.D.
[2017-10-22 10:46] LABS: PLATELET ESTIMATE SLT INCREASE
[2017-10-22] MEDS: MUPIROCIN 2% TOPICAL OINTMENT FOR DECOLONIZATION NS SCH ×2 (10:54→22:23)
[2017-10-22] MEDS: ASCORBIC ACID 500 MG TABLET (FP) PO SCH (10:55)
[2017-10-22] MEDS: DOCUSATE SODIUM 100 MG CAPSULE (FP) PO SCH ×2 (10:55→22:24)
[2017-10-22] MEDS: amLODIPine BESYLATE 5 MG TABLET (FP) PO SCH (10:55)
[2017-10-22] MEDS: SERTRALINE HCL 25 MG TABLET (FP) PO SCH (10:55)
[2017-10-22] MEDS: METOPROLOL TARTRATE 25 MG TABLET (FP) PO SCH ×2 (10:55→22:25)
[2017-10-22] MEDS: FERROUS SO4 325 MG TABLET (FP) PO SCH (10:55)
[2017-10-22] MEDS: PANTOPRAZOLE 40 MG TABLET (FP) PO SCH (10:55)
[2017-10-22] MEDS: CALCIUM CARBONATE 650 MG TABLET PO SCH ×2 (10:56→22:24)
[2017-10-22] MEDS: AZITHROMYCIN IVPB 500 MG in DEXTROSE 5%-WATER - 250 ML IVPB SCH (10:56)
[2017-10-22] MEDS: ALPRAZolam 0.25 MG TABLET PO PRN ×2 (11:14→22:23)
[2017-10-22] MEDS: morphine SULFATE IMMEDIATE RELEASE 30 MG TAB PO PRN (11:17)
--- NOTE | 2017-10-22 12:00 | PN ---
Progress Note (short form) - Note Progress Note: Renal follow up for CKD pt seen and examined at the bedside no acute complaints sob is improved, le edema improved making urine no CP Vital Signs Temperature 97.8 F 10/22/17 09:45 Pulse Rate 70 10/22/17 09:45 Respiratory Rate 18 10/22/17 09:45 Blood Pressure 131/79 10/22/17 09:45 O2 Sat by Pulse Oximetry (%) 95 10/22/17 07:49 Intake & Output 10/19/17 10/20/17 10/21/17 10/22/17 23:59 23:59 23:59 23:59 Intake Total 1400 475 250 Output Total 2300 3800 3100 Balance -900 -3325 -3100 250 Weight 113.115 kg 112.945 kg 112.746 kg NAD awake and alert RRR, NO m/R Dec Bs at lung bases obese, NT/ND + edema in LE CBC, BMP 10/22/17 06:00 10/22/17 06:00 Current Medications Acetaminophen (Tylenol -) 650 mg PO Q4H PRN PRN Reason: PAIN LEVEL 1-5 Albuterol Sulfate (Ventolin Hfa Inhaler -) 2 puff IH Q6H PRN PRN Reason: SHORTNESS OF BREATH Last Admin: 10/20/17 06:48 Dose: 2 inh Alprazolam (Xanax -) 0.5 mg PO Q8H PRN PRN Reason: ANXIETY Last Admin: 10/22/17 11:14 Dose: 0.5 mg Amlodipine Besylate (Norvasc -) 5 mg PO DAILY [facility] Last Admin: 10/22/17 10:55 Dose: 5 mg Arformoterol Tartrate (Brovana (Restricted To Pulmonology/Resp) -) 1 amp NEB RBID [facility] Last Admin: 10/22/17 07:50 Dose: 1 amp Ascorbic Acid (Vitamin C -) 1,000 mg PO DAILY [facility] Last Admin: 10/22/17 10:55 Dose: 1,000 mg Atovaquone (Mepron -) 1,500 mg PO DAILY@1900 [facility] Last Admin: 10/21/17 18:33 Dose: 1,500 mg Calcium Carbonate (Calcium Carbonate -) 650 mg PO BID [facility] Last Admin: 10/22/17 10:56 Dose: 650 mg Chlorhexidine Gluconate (Hibiclens For Decolonization -) 1 applic TP HS [facility] Last Admin: 10/21/17 23:03 Dose: 1 applic Docusate Sodium (Colace -) 100 mg PO BID [facility] Last Admin: 10/22/17 10:55 Dose: 100 mg Ferrous Sulfate (Feosol -) 325 mg PO DAILY [facility] Last Admin: 10/22/17 10:55 Dose: 325 mg Glipizide (Glucotrol -) 5 mg PO BIDAC [facility] Last Admin: 10/22/17 06:57 Dose: 5 mg Azithromycin 500 mg/ Dextrose 250 mls @ 250 mls/hr IVPB DAILY [facility] Last Admin: 10/22/17 10:56 Dose: 250 mls/hr Piperacillin Sod/Tazobactam (Sod 4.5 gm/ Dextrose) 100 mls @ 200 mls/hr IVPB Q8H-IV [facility] PRN Reason: Protocol Last Admin: 10/22/17 10:56 Dose: 200 mls/hr Insulin Aspart (Novolog Vial Sliding Scale -) 1 vial SQ ACHS [facility] PRN Reason: Protocol Last Admin: 10/22/17 06:57 Dose: Not Given Insulin Detemir (Levemir Vial) 15 units SQ AM [facility] Last Admin: 10/22/17 06:57 Dose: 15 unit Methylprednisolone Sodium Succinate (Solu-Medrol -) 40 mg IVPUSH Q8H-IV [facility] Last Admin: 10/22/17 10:56 Dose: 40 mg Metoprolol Tartrate (Lopressor -) 25 mg PO BID [facility] Last Admin: 10/22/17 10:55 Dose: 25 mg Morphine Sulfate (Msir -) 15 mg PO Q6H PRN PRN Reason: breakthrough pain 6-10 Last Admin: 10/22/17 11:17 Dose: 15 mg Morphine Sulfate (Ms Contin -) 60 mg PO TID [facility] Last Admin: 10/22/17 06:57 Dose: 60 mg Mupirocin (Bactroban Ointment (For Decolonization) -) 1 applic NS BID [facility] Stop: 10/23/17 21:59 Last Admin: 10/22/17 10:54 Dose: Not Given Non-Formulary Medication (Eltrombopag Olamine [Promacta]) 50 mg PO DAILY [facility] Pantoprazole Sodium (Protonix -) 40 mg PO DAILY [facility] Last Admin: 10/22/17 10:55 Dose: 40 mg Sertraline HCl (Zoloft -) 25 mg PO DAILY [facility] Last Admin: 10/22/17 10:55 Dose: 25 mg Sitagliptin Phosphate (Januvia -) 50 mg PO DAILY@0700 [facility] Last Admin: 10/22/17 06:57 Dose: 50 mg 67 year old woman with PMhx of CKD, Mantle Cell Lymphoma, ITP, IDDM, Hypertension, chronic hydronephorosis who presents with SOB and cough and found to be hypoxic in setting of PNA with Cr of 2. #CKD Stage 3 #ITP #Hx of Mantle Cell Lymphoma #Sepsis/PNA #Hx of Hydronephrosis Cr 2 to 2.4 s/p Lasix x 2 yesterday no overt hypotension and no clinical signs of obstruction will hold Lasix x 24 hours and monitor renal function Trend BUN/Cr , K can resume Lasix if renal function improves or if pt begins to show signs of overt HF Dash Padron DO
--- NOTE | 2017-10-22 12:19 | CONS ---
DATE OF CONSULTATION: 10/22/2017 CONSULTATION REQUESTED BY: Subhash Mcfarlane MD CHIEF COMPLAINT: Dyspnea, cardiovascular evaluation. 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 Patient, in addition, has history of chronic obstructive pulmonary disease. Patient presented to [facility] with dyspnea with minimal physical exertion and increasing bilateral lower extremity edema. Patient reported orthopnea, but denied any paroxysmal nocturnal dyspnea. Patient denied any chest discomfort. Patient did not report any palpitation, dizziness, lightheadedness, or syncope. Patient reported increasing fatigue and tiredness. patient noted to have evidence of probable pneumonia and, in addition, congestive heart failure, for which diuretic therapy was initiated. Patient reported improvement with the above-noted therapy initiation. 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 SOCIAL HISTORY: Prior history of tobacco abuse. FAMILY HISTORY: Positive for coronary artery disease. ALLERGIES: CIPROFLOXACIN, LEVOFLOXACIN, and ATORVASTATIN. MEDIAL THERAPY: Currently includes: Acetaminophen 650 mg every 4 hours as needed; Ventolin HFA; Xanax 0.5 mg every 8 hours as needed; Norvasc 5 mg once a day; Brovana nebulizer twice a day; vitamin C 1000 mg once a day; Mepron 1500 mg once a day; calcium carbonate 650 mg twice a day; Colace 100 mg twice a day; ferrous sulfate 325 mg once a day; Glucotrol 5 mg twice a day; Zithromax 500 mg once a day; piperacillin/tazobactam 4.5 g every 8 hours; insulin as prescribed; Solu-Medrol 40 mg every 8 hours; Lopressor 25 mg twice a day; morphine sulfate 15 mg orally every 6 hours as needed; MS-Contin 60 mg 3 times a day; Bactroban ointment; Protonix 40 mg once a day; Zoloft 25 mg once a day; Januvia 50 mg once a day. REVIEW OF SYSTEMS: Head/Neck: Patient denies headaches, photophobia, blurring of vision. Respiratory: No cough or sputum production. Cardiovascular: As noted above. Gastrointestinal: Patient denies nausea, vomiting, diarrhea, abdominal discomfort. Genitourinary: No symptoms reported. Musculoskeletal: History of degenerative joint disease. Endocrine: Diabetes mellitus. PHYSICAL EXAMINATION: Vital Signs: Blood pressure is 131/79 mmHg, pulse rate is 70 beats/min. Head/Neck: Pupils equal and reactive to light and accommodation. Extraocular muscles are intact. Anicteric sclerae. Negative JVD. No bruit appreciated. Chest: Diminished breath sounds at the bases bilaterally with bilateral scattered rhonchi. Cardiovascular: S1, S2, regular. Grade 1/6 to 2/6 systolic ejection murmur. No clicks or gallops. Abdomen: Soft, benign, normoactive bowel sounds. Extremities: Trace bilateral edema. Chest x-ray report was noted. Electrocardiogram revealed sinus tachycardia with left axis deviation, poor R- wave progression. CBC revealed a white cell count of 18.0, hemoglobin 12.1, platelet count 515. Basic metabolic profile revealed a sodium 135, potassium 4.2, BUN of 49, creatinine 2.4, glucose 130. BNP 2869. Echocardiography dated August 18, 2017, revealed normal biventricular size and function with mild mitral and tricuspid valve regurgitation. ASSESSMENT: 1. Acute hypoxic and hypercapnic respiratory failure related to pneumonia, resolving. 2. [id number] Class 2 [place] Heart Association Classification left ventricular failure related to diastolic left ventricular dysfunction. 3. Coronary artery disease, angina pectoris to be considered in the differential diagnosis. 4. Hypertensive cardiovascular disease. 5. Diabetes mellitus. 6. Hypercholesterolemia. 7. Chronic obstructive pulmonary disease. 8. [id number] kidney disease. 9. History of thrombocytopenia post splenectomy. 10. History of idiopathic thrombocytopenic purpura. 11. History of mantle cell lymphoma. 12. History of degenerative joint disease. 13. Morbid obesity. RECOMMENDATIONS: 1. Continuation of Lopressor therapy. 2. Continuation of Norvasc therapy. 3. Resumption of diuretic therapy with close monitoring of renal function. 4. Ideally, DERRICK inhibitor, angiotensin receptor marie therapy initiation is recommended unless it is absolutely contraindicated with close monitoring of renal function once renal function is at baseline. 5. Pharmacologic myocardial perfusion imaging study as outpatient for further evaluation of coronary artery disease and ischemic burden. Thank you for the kind referral. DORIAN PARKINSON M.D. MAURICIO/[id number] MTDD
[2017-10-22] MEDS: ATOVAQUONE 750 MG/5 ML (UNIT-DOSE PACKAGING) PO SCH (18:53)
[2017-10-22] MEDS ORDERED: INSULIN (LEVEMIR) 100 UNITS/ML UNITS SQ ONE (19:00)
[2017-10-22] MEDS ORDERED: INSULIN (NOVOLOG) ASPART 100 UNITS/ML 10ML VIAL ONE (19:01)
[2017-10-22] MEDS: CHLORHEXIDINE GLUCONATE 4% CLEANSER FOR DECOLONIZATION TP SCH (22:25)
[2017-10-23] MEDS ORDERED: DEXTROSE 5%-WATER 100 ML IVPB ONE ×3 (01:04→17:04)
[2017-10-23] MEDS ORDERED: PIPERACILLIN/TAZOBACTAM 4.5 GM VIAL IVPB ONE ×3 (01:04→17:04)
[2017-10-23] MEDS: methylPREDNISolone NA SUCC 40 MG/1 ML VIAL IVPUSH SCH ×3 (01:18→17:46)
[2017-10-23] MEDS: PIPERACILLIN/TAZOB 4.5 GM 4.5 GM in DEXTROSE 5%-WATER 100 ML IVPB SCH ×3 (01:24→17:38)
[2017-10-23] MEDS: morphine SO4 SUSTAINED ACTING 15 MG TABLET.SA PO SCH ×3 (05:59→22:08)
[2017-10-23] MEDS: sitaGLIPtin PHOSPHATE 50 MG TABLET PO SCH (06:41)
[2017-10-23] MEDS: INSULIN SLIDING SCALE (NOVOLOG) 1 VIAL SQ SCH ×5 (06:41→22:10)
[2017-10-23] MEDS: INSULIN (LEVEMIR) 100 UNITS/ML UNITS SQ SCH (06:42)
[2017-10-23] MEDS: glipiZIDE 5 MG TABLET (FP) PO SCH ×2 (06:44→17:39)
[2017-10-23] MEDS ORDERED: INSULIN (NOVOLOG) ASPART 100 UNITS/ML 10ML VIAL ONE (06:50)
[2017-10-23] MEDS: ARFORMOTEROL TARTRATE 15 MCG/2 ML VIAL NEB SCH ×2 (07:34→21:35)
[2017-10-23 07:52] LABS: HEMATOCRIT 38.8 % (32.4-45.2); HEMOGLOBIN 12.6 GM/dL (10.7-15.3); MCH 29.5 pg (25.7-33.7); MCHC 32.4 g/dl (32.0-36.0); MEAN PLT VOLUME 9.5 fl (7.5-11.1); PLATELET COUNT 557 K/MM3 (134-434); RBC 4.26 M/mm3 (3.60-5.2); RDW 19.8 % (11.6-15.6); WHITE BLOOD COUNT 13.9 K/mm3 (4.0-10.0)
[2017-10-23 08:15] LABS: CHLORIDE 89 mmol/L (98-107); POTASSIUM 5.2 mmol/L (3.5-5.1); SODIUM 132 mmol/L (136-145)
[2017-10-23 08:30] LABS: ALBUMIN 2.4 g/dl (3.4-5.0); ALK PHOS 59 U/L (45-117); ANION GAP 6 (8-16); BILIRUBIN,TOTAL 0.4 mg/dL (0.2-1.0); BLOOD UREA NITROGEN 47 mg/dL (7-18); CALCIUM 8.7 mg/dL (8.5-10.1); CO2 37 mmol/L (21-32); CREATININE 2.1 mg/dL (0.55-1.02); MAGNESIUM 2.5 mg/dL (1.8-2.4); PHOSPHOROUS 3.7 mg/dL (2.5-4.9); SGOT/AST 12 U/L (15-37); SGPT/ALT 16 U/L (12-78); TOT PROT 6.4 g/dl (6.4-8.2)
--- NOTE | 2017-10-23 09:50 | CONSULT ---
Consult - text type - Consultation Consultation Note: Neurology History of Present Illness: 67 year old female who initially presented with sudden onset shortness of breath , reportedly with non-productive cough and nausea but no vomiting. She denied fevers, chills, lightheadedness, dizziness, chest pain or pressure, diarrhea, constipation, difficulty or pain on urination, or worsening leg swelling. She was found to be hypoxic and placed on bipap. Respiratory discomfort has improved and I was consulted for tremor. She appears to have small amplitude tremor on UE extension. Does not have h/o heavy Etoh, does have h/o DM but persistent tremor that does not appear be 2/2 glycemic shifts. More likely benign essential tremor. - Past Medical History Cardiovascular: Yes: HTN. No: AFIB Pulmonary: Yes: COPD, Other (elevated left hemidiaphragm) Gastrointestinal: Yes: Diverticulitis (osteoarthritis right hip). No: Ascites Hepatobiliary: No: Cirrhosis Renal/: Yes: Renal Calculi, UTI, Other (bladder dysfunction). No: Renal Failure Heme/Onc: Yes: Thrombocytopenia (s/p splenectomy), Other (lymphoma -Mantle cell) Psych: Yes: Anxiety, Depression Musculoskeletal: Yes: Chronic low back pain, Osteoarthritis (right hip) Rheumatology: Yes: Other (degenerative spine disease) Endocrine: Yes: Diabetes Mellitus - Past Surgical History Past Surgical History: Yes: Laminectomy (cervical laminectomy x2 (2001)), Splenectomy, Thoracotomy - Smoking History Smoking history: Never smoked Have you smoked in the past 12 months: No Aproximately how many cigarettes per day: 0 If you are a former smoker, when did you quit?: 2001 - Alcohol/Substance Use Hx Alcohol Use: No History of Substance Use: reports: None - Social History Usual Living Arrangement: Yes: With Spouse ADL: Independent 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, , 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 History of Recent Travel: No Home Medications - Allergies Allergies/Adverse Reactions: Allergies Allergy/AdvReac Type Severity Reaction Status Date / Time ciprofloxacin HCl Allergy Intermediate Itching Verified 10/18/17 07:07 [From Cipro] levofloxacin [From Levaquin] Allergy Intermediate Rash Verified 10/18/17 07:07 atorvastatin calcium Allergy Mild muscle Verified 10/18/17 07:07 [From Lipitor] aches - Home Medications Home Medications: Ambulatory Orders Sertraline HCl [Zoloft -] 25 mg PO DAILY 08/28/14 Alprazolam [Xanax] 0.5 mg PO Q8H PRN #0 tablet 09/10/14 Pantoprazole Sodium [Protonix -] 40 mg PO DAILY #0 tablet.ec 09/10/14 Allopurinol [Zyloprim -] 150 mg PO DAILY #60 tablet 04/07/16 Albuterol Sulfate Inhaler - [Ventolin HFA Inhaler -] 1 - 2 inh PO PRN 08/09/16 Docusate Sodium [Colace -] 100 mg PO BID #60 tab-cap 10/29/16 Sitagliptin Phosphate [Januvia] 50 mg PO DAILY 03/18/17 Acetaminophen [Tylenol .Regular Strength -] 650 mg PO PRN 05/26/17 Ascorbic Acid [Vitamin C] 1,000 mg PO DAILY 08/17/17 Ferrous Sulfate 325 mg PO DAILY 08/17/17 Calcium Carbonate - 650 mg PO BID #60 tablet 08/31/17 Morphine *Sr* [MS Contin -] 60 mg PO TID #60 tab.sa MDD 180mg 08/31/17 Morphine Sulfate 15 mg PO QID PRN #30 tablet MDD 60mg 08/31/17 Amlodipine Besylate [Norvasc -] 5 mg PO DAILY #30 tablet 09/25/17 Arformoterol Tartrate [Brovana -] 1 amp NEB RBID #60 amp 09/25/17 Atovaquone [Mepron Oral Solution -] 1,500 mg PO DAILY@0800 #1 bottle 09/25/17 Budesonide/Formeterol Fumarate [SYMBICORT 160/4.5mcg -] 2 puff IH BID #1 inhaler 09/25/17 Glipizide [Glucotrol -] 5 mg PO BIDBL #60 tablet 09/25/17 Metoprolol Tartrate [Lopressor -] 25 mg PO BID #60 tablet 09/25/17 Eltrombopag Olamine [Promacta] 50 mg PO DAILY 10/18/17 Family Disease History - Family Disease History Family Disease History: Diabetes: Mother, Heart Disease: Mother, Other: Father ( thrombocytopenia), Daughter (hypothyroidism) Review of Systems Findings/Remarks: Full review of systems obtained, as per HPI and otherwise negative Physical Examination Vital Signs Period Temp Pulse Resp BP Sys/[place] Pulse Ox Last 24 Hr 97.9 F-98.5 F 55-61 16-18 152-161/53-74 96 Constitutional: Yes: No Distress, Calm, Obese Eyes: Yes: Conjunctiva Clear, EOM Intact, PERRL HENT: Yes: Atraumatic, Normocephalic Cardiovascular: Yes: Tachycardia. No: Pulse Irregular, Gallop, Murmur, Rub Respiratory: Yes: On BiPap, Rales, Rhonchi, Tachypnea. No: Regular, CTA Bilaterally, Wheezes Gastrointestinal: Yes: Normal Bowel Sounds, Soft. No: Distention, Tenderness Extremities: Yes: WNL Neuro: CN intact, sensory normal, moves all extremities equally, mild tremor on UE extension, no convulsions noted, gait deferred CBCD WBC 13.9 K/mm3 (4.0-10.0) H 10/23/17 06:20 RBC 4.26 M/mm3 (3.60-5.2) 10/23/17 06:20 Hgb 12.6 GM/dL (10.7-15.3) 10/23/17 06:20 Hct 38.8 % (32.4-45.2) 10/23/17 06:20 MCV 91.0 fl (80-96) 10/23/17 06:20 MCHC 32.4 g/dl (32.0-36.0) 10/23/17 06:20 RDW 19.8 % (11.6-15.6) H 10/23/17 06:20 Plt Count 557 K/MM3 (134-434) H 10/23/17 06:20 MPV 9.5 fl (7.5-11.1) 10/23/17 06:20 CMP Sodium 135 mmol/L (136-145) L 10/22/17 06:00 Potassium 4.2 mmol/L (3.5-5.1) 10/22/17 06:00 Chloride 89 mmol/L (98-107) L 10/22/17 06:00 Carbon Dioxide 38 mmol/L (21-32) H 10/22/17 06:00 Anion Gap 8 (8-16) 10/22/17 06:00 BUN 49 mg/dL (7-18) H 10/22/17 06:00 Creatinine 2.4 mg/dL (0.55-1.02) H 10/22/17 06:00 Creat Clearance w eGFR 20.14 (>60) 10/22/17 06:00 Random Glucose 130 mg/dL (74-106) H 10/22/17 06:00 Calcium 9.3 mg/dL (8.5-10.1) 10/22/17 06:00 Total Bilirubin 0.4 mg/dL (0.2-1.0) D 10/22/17 06:00 AST 16 U/L (15-37) 10/22/17 06:00 ALT 21 U/L (12-78) 10/22/17 06:00 Alkaline Phosphatase 71 U/L (45-117) 10/22/17 06:00 Total Protein 7.6 g/dl (6.4-8.2) 10/22/17 06:00 Albumin 2.8 g/dl (3.4-5.0) L 10/22/17 06:00 CARDIAC ENZYMES Creatine Kinase 36 IU/L (26-192) 10/18/17 06:40 Troponin I < 0.02 ng/ml (0.00-0.05) 10/18/17 06:40 PLan 67 year old female who initially presented with sudden onset shortness of breath , reportedly with non-productive cough and nausea but no vomiting. She denied fevers, chills, lightheadedness, dizziness, chest pain or pressure, diarrhea, constipation, difficulty or pain on urination, or worsening leg swelling. She was found to be hypoxic and placed on bipap. Respiratory discomfort has improved and I was consulted for tremor. She appears to have small amplitude tremor on UE extension. Does not have h/o heavy Etoh, does have h/o DM but persistent tremor that does not appear be 2/2 glycemic shifts. More likely benign essential tremor. Will not pursue further intervention now in acute setting, recommended outpatient followup when clinically at baseline and can further assess. Patient in agreement. Continue current mgmt for sepsis. Would advise monitoring glucose and maintain euglycemic state.
[2017-10-23 09:53] LABS: GLUCOSE,RANDOM 352 mg/dL (74-106)
--- NOTE | 2017-10-23 10:42 | PN ---
Progress Note, Physician Chief Complaint: ID Clinical improvement Zosyn and Azithromycin Able to not use O2 now - Current Medication List Current Medications: Active Medications Acetaminophen (Tylenol -) 650 mg PO Q4H PRN PRN Reason: PAIN LEVEL 1-5 Albuterol Sulfate (Ventolin Hfa Inhaler -) 2 puff IH Q6H PRN PRN Reason: SHORTNESS OF BREATH Last Admin: 10/22/17 18:52 Dose: 2 puff Alprazolam (Xanax -) 0.5 mg PO Q8H PRN PRN Reason: ANXIETY Last Admin: 10/22/17 22:23 Dose: 0.5 mg Amlodipine Besylate (Norvasc -) 5 mg PO DAILY [facility] Last Admin: 10/22/17 10:55 Dose: 5 mg Arformoterol Tartrate (Brovana (Restricted To Pulmonology/Resp) -) 1 amp NEB RBID [facility] Last Admin: 10/23/17 07:34 Dose: 1 amp Ascorbic Acid (Vitamin C -) 1,000 mg PO DAILY [facility] Last Admin: 10/22/17 10:55 Dose: 1,000 mg Atovaquone (Mepron -) 1,500 mg PO DAILY@1900 [facility] Last Admin: 10/22/17 18:53 Dose: 1,500 mg Calcium Carbonate (Calcium Carbonate -) 650 mg PO BID [facility] Last Admin: 10/22/17 22:24 Dose: 650 mg Chlorhexidine Gluconate (Hibiclens For Decolonization -) 1 applic TP HS [facility] Last Admin: 10/22/17 22:25 Dose: Not Given Docusate Sodium (Colace -) 100 mg PO BID [facility] Last Admin: 10/22/17 22:24 Dose: 100 mg Ferrous Sulfate (Feosol -) 325 mg PO DAILY [facility] Last Admin: 10/22/17 10:55 Dose: 325 mg Glipizide (Glucotrol -) 5 mg PO BIDAC [facility] Last Admin: 10/23/17 06:44 Dose: 5 mg Azithromycin 500 mg/ Dextrose 250 mls @ 250 mls/hr IVPB DAILY [facility] Last Admin: 10/22/17 10:56 Dose: 250 mls/hr Piperacillin Sod/Tazobactam (Sod 4.5 gm/ Dextrose) 100 mls @ 200 mls/hr IVPB Q8H-IV [facility] PRN Reason: Protocol Last Admin: 10/23/17 01:24 Dose: 200 mls/hr Insulin Aspart (Novolog Vial Sliding Scale -) 1 vial SQ ACHS [facility] PRN Reason: Protocol Last Admin: 10/23/17 06:47 Dose: 6 units Insulin Detemir (Levemir Vial) 15 units SQ AM [facility] Last Admin: 10/23/17 06:42 Dose: 15 unit Methylprednisolone Sodium Succinate (Solu-Medrol -) 40 mg IVPUSH Q8H-IV [facility] Last Admin: 10/23/17 01:18 Dose: 40 mg Metoprolol Tartrate (Lopressor -) 25 mg PO BID [facility] Last Admin: 10/22/17 22:25 Dose: 25 mg Morphine Sulfate (Msir -) 15 mg PO Q6H PRN PRN Reason: breakthrough pain 6-10 Last Admin: 10/22/17 11:17 Dose: 15 mg Morphine Sulfate (Ms Contin -) 60 mg PO TID [facility] Last Admin: 10/23/17 05:59 Dose: 60 mg Mupirocin (Bactroban Ointment (For Decolonization) -) 1 applic NS BID [facility] Stop: 10/23/17 21:59 Last Admin: 10/22/17 22:23 Dose: Not Given Non-Formulary Medication (Eltrombopag Olamine [Promacta]) 50 mg PO DAILY [facility] Pantoprazole Sodium (Protonix -) 40 mg PO DAILY [facility] Last Admin: 10/22/17 10:55 Dose: 40 mg Sertraline HCl (Zoloft -) 25 mg PO DAILY [facility] Last Admin: 10/22/17 10:55 Dose: 25 mg Sitagliptin Phosphate (Januvia -) 50 mg PO DAILY@0700 [facility] Last Admin: 10/23/17 06:41 Dose: 50 mg - Objective Vital Signs: Vital Signs Temperature 97.9 F 10/23/17 05:00 Pulse Rate 61 10/23/17 05:00 Respiratory Rate 18 10/23/17 05:00 Blood Pressure 156/57 10/23/17 05:00 O2 Sat by Pulse Oximetry (%) 96 10/22/17 21:00 Constitutional: Yes: Well Nourished, No Distress Eyes: Yes: WNL, Conjunctiva Clear HENT: Yes: WNL, Atraumatic Neck: Yes: WNL, Supple Cardiovascular: Yes: Regular Rate and Rhythm, S1, S2. No: Murmur Respiratory: Yes: WNL, Regular, CTA Bilaterally Gastrointestinal: Yes: Soft. No: Tenderness, Tenderness, Rebound Labs: CBC, BMP 10/23/17 06:20 10/23/17 06:20 Assessment/Plan Microbiology 10/18/17 18:45 Nasopharyngeal Swab Influenza Types A,B Antigen (HALEY) - Final 10/18/17 18:45 Nasopharyngeal Swab - Final 10/18/17 14:00 Urine For Antigen Detection Legionella Antigen - Final 10/18/17 14:00 Urine For Antigen Detection Streptococcus pneumoniae Antigen (M - Final 10/18/17 07:09 Urine - Urine Clean Catch Urine Culture - Final NO GROWTH OBTAINED 10/18/17 07:09 Blood - Peripheral Venous Blood Culture - Final NO GROWTH AFTER 5 DAYS INCUBATION 10/18/17 07:09 Blood - Peripheral Venous Blood Culture - Final NO GROWTH AFTER 5 DAYS INCUBATION Laboratory Tests 10/23/17 10/23/17 06:20 06:20 WBC 13.9 H Hgb 12.6 Hct 38.8 Plt Count 557 H Creatinine 2.1 H Assessment Pneumonia Clinically improved Case Discussed with Pulmonary regarding discharge planning Plan I would suggest by tomorrow she shold be fine with oral antibiotic Augmentin 500bid for another 3 days Dotty OLIVO
--- NOTE | 2017-10-23 10:49 | PN ---
Progress Note (short form) - Note Progress Note: PULMONARY Breathing improving. Less cough, no wheezing. Legs swollen. Last Vital Signs Temp Pulse Resp BP Pulse Ox 97.9 F 61 18 156/57 96 10/23/17 05:00 10/23/17 05:00 10/23/17 05:00 10/23/17 05:00 10/22/17 21:00 Gen: NAD at rest Heart: RRR Lung: decreased breath sounds at the bases Abd: soft, nontender Ext: + edema CBC, BMP 10/23/17 06:20 10/23/17 06:20 Active Medications Acetaminophen (Tylenol -) 650 mg PO Q4H PRN PRN Reason: PAIN LEVEL 1-5 Albuterol Sulfate (Ventolin Hfa Inhaler -) 2 puff IH Q6H PRN PRN Reason: SHORTNESS OF BREATH Last Admin: 10/22/17 18:52 Dose: 2 puff Alprazolam (Xanax -) 0.5 mg PO Q8H PRN PRN Reason: ANXIETY Last Admin: 10/22/17 22:23 Dose: 0.5 mg Amlodipine Besylate (Norvasc -) 5 mg PO DAILY [facility] Last Admin: 10/22/17 10:55 Dose: 5 mg Arformoterol Tartrate (Brovana (Restricted To Pulmonology/Resp) -) 1 amp NEB RBID [facility] Last Admin: 10/23/17 07:34 Dose: 1 amp Ascorbic Acid (Vitamin C -) 1,000 mg PO DAILY [facility] Last Admin: 10/22/17 10:55 Dose: 1,000 mg Atovaquone (Mepron -) 1,500 mg PO DAILY@1900 [facility] Last Admin: 10/22/17 18:53 Dose: 1,500 mg Calcium Carbonate (Calcium Carbonate -) 650 mg PO BID [facility] Last Admin: 10/22/17 22:24 Dose: 650 mg Chlorhexidine Gluconate (Hibiclens For Decolonization -) 1 applic TP HS [facility] Last Admin: 10/22/17 22:25 Dose: Not Given Docusate Sodium (Colace -) 100 mg PO BID [facility] Last Admin: 10/22/17 22:24 Dose: 100 mg Ferrous Sulfate (Feosol -) 325 mg PO DAILY [facility] Last Admin: 10/22/17 10:55 Dose: 325 mg Glipizide (Glucotrol -) 5 mg PO BIDAC [facility] Last Admin: 10/23/17 06:44 Dose: 5 mg Azithromycin 500 mg/ Dextrose 250 mls @ 250 mls/hr IVPB DAILY [facility] Last Admin: 10/22/17 10:56 Dose: 250 mls/hr Piperacillin Sod/Tazobactam (Sod 4.5 gm/ Dextrose) 100 mls @ 200 mls/hr IVPB Q8H-IV [facility] PRN Reason: Protocol Last Admin: 10/23/17 01:24 Dose: 200 mls/hr Insulin Aspart (Novolog Vial Sliding Scale -) 1 vial SQ ACHS [facility] PRN Reason: Protocol Last Admin: 10/23/17 06:47 Dose: 6 units Insulin Detemir (Levemir Vial) 15 units SQ AM [facility] Last Admin: 10/23/17 06:42 Dose: 15 unit Methylprednisolone Sodium Succinate (Solu-Medrol -) 40 mg IVPUSH Q8H-IV [facility] Last Admin: 10/23/17 01:18 Dose: 40 mg Metoprolol Tartrate (Lopressor -) 25 mg PO BID [facility] Last Admin: 10/22/17 22:25 Dose: 25 mg Morphine Sulfate (Msir -) 15 mg PO Q6H PRN PRN Reason: breakthrough pain 6-10 Last Admin: 10/22/17 11:17 Dose: 15 mg Morphine Sulfate (Ms Contin -) 60 mg PO TID [facility] Last Admin: 10/23/17 05:59 Dose: 60 mg Mupirocin (Bactroban Ointment (For Decolonization) -) 1 applic NS BID [facility] Stop: 10/23/17 21:59 Last Admin: 10/22/17 22:23 Dose: Not Given Non-Formulary Medication (Eltrombopag Olamine [Promacta]) 50 mg PO DAILY [facility] Pantoprazole Sodium (Protonix -) 40 mg PO DAILY [facility] Last Admin: 10/22/17 10:55 Dose: 40 mg Sertraline HCl (Zoloft -) 25 mg PO DAILY [facility] Last Admin: 10/22/17 10:55 Dose: 25 mg Sitagliptin Phosphate (Januvia -) 50 mg PO DAILY@0700 [facility] Last Admin: 10/23/17 06:41 Dose: 50 mg A/P Acute Hypoxic and Hypercapneic Respiratory Failure improving Pneumonia Sepsis resolving Lactic Acidosis improving Mantle Cell Lymphoma h/o ITP HTN DM CKD - continue antibiotics per ID - lung exam improved, will decrease medrol to daily - inhaled bronchodilators standing and PRN - O2 to keep SpO2 >90% - lasix as needed - monitor urine output, creatinine - glucose control while on systemic steroids - DVT prophylaxis
[2017-10-23] MEDS ORDERED: PT OWN MED DRAWER 7, Y5N ONE ×2 (10:50→20:24)
[2017-10-23] MEDS: morphine SULFATE IMMEDIATE RELEASE 30 MG TAB PO PRN (10:57)
[2017-10-23] MEDS: CALCIUM CARBONATE 650 MG TABLET PO SCH ×2 (10:58→22:50)
[2017-10-23] MEDS: PANTOPRAZOLE 40 MG TABLET (FP) PO SCH (10:58)
[2017-10-23] MEDS: ASCORBIC ACID 500 MG TABLET (FP) PO SCH (10:59)
[2017-10-23] MEDS: FERROUS SO4 325 MG TABLET (FP) PO SCH (10:59)
[2017-10-23] MEDS: DOCUSATE SODIUM 100 MG CAPSULE (FP) PO SCH ×2 (10:59→22:08)
[2017-10-23] MEDS: SERTRALINE HCL 25 MG TABLET (FP) PO SCH (11:00)
[2017-10-23] MEDS: amLODIPine BESYLATE 5 MG TABLET (FP) PO SCH (11:00)
[2017-10-23] MEDS: AZITHROMYCIN IVPB 500 MG in DEXTROSE 5%-WATER - 250 ML IVPB SCH (11:00)
[2017-10-23] MEDS: MUPIROCIN 2% TOPICAL OINTMENT FOR DECOLONIZATION NS SCH (11:00)
[2017-10-23 11:02] LABS: ANISOCYTOSIS 1+; MACROCYTOSIS 1+; PLATELET ESTIMATE INCREASED; TARGET CELLS 1+
[2017-10-23] MEDS: METOPROLOL TARTRATE 25 MG TABLET (FP) PO SCH ×2 (11:02→22:08)
[2017-10-23] MEDS: ALPRAZolam 0.25 MG TABLET PO PRN (11:32)
--- NOTE | 2017-10-23 13:01 | PN ---
Progress Note, Physician Chief Complaint: Not in distress History of Present Illness: Patient was seen and examined. Awake and alert. Chart was reviewed Denies chest pain or palpitations - Current Medication List Current Medications: Active Medications Acetaminophen (Tylenol -) 650 mg PO Q4H PRN PRN Reason: PAIN LEVEL 1-5 Albuterol Sulfate (Ventolin Hfa Inhaler -) 2 puff IH Q6H PRN PRN Reason: SHORTNESS OF BREATH Last Admin: 10/22/17 18:52 Dose: 2 puff Alprazolam (Xanax -) 0.5 mg PO Q8H PRN PRN Reason: ANXIETY Last Admin: 10/23/17 11:32 Dose: 0.5 mg Amlodipine Besylate (Norvasc -) 5 mg PO DAILY [facility] Last Admin: 10/23/17 11:00 Dose: 5 mg Arformoterol Tartrate (Brovana (Restricted To Pulmonology/Resp) -) 1 amp NEB RBID [facility] Last Admin: 10/23/17 07:34 Dose: 1 amp Ascorbic Acid (Vitamin C -) 1,000 mg PO DAILY [facility] Last Admin: 10/23/17 10:59 Dose: 1,000 mg Atovaquone (Mepron -) 1,500 mg PO DAILY@1900 [facility] Last Admin: 10/22/17 18:53 Dose: 1,500 mg Calcium Carbonate (Calcium Carbonate -) 650 mg PO BID [facility] Last Admin: 10/23/17 10:58 Dose: 650 mg Chlorhexidine Gluconate (Hibiclens For Decolonization -) 1 applic TP HS [facility] Last Admin: 10/22/17 22:25 Dose: Not Given Docusate Sodium (Colace -) 100 mg PO BID [facility] Last Admin: 10/23/17 10:59 Dose: 100 mg Ferrous Sulfate (Feosol -) 325 mg PO DAILY [facility] Last Admin: 10/23/17 10:59 Dose: 325 mg [facility] Last Admin: 10/23/17 06:44 Dose: 5 mg Azithromycin 500 mg/ Dextrose 250 mls @ 250 mls/hr IVPB DAILY [facility] Last Admin: 10/23/17 11:00 Dose: 250 mls/hr Piperacillin Sod/Tazobactam (Sod 4.5 gm/ Dextrose) 100 mls @ 200 mls/hr IVPB Q8H-IV [facility] PRN Reason: Protocol Last Admin: 10/23/17 11:01 Dose: 200 mls/hr Insulin Aspart (Novolog Vial Sliding Scale -) 1 vial SQ ACHS [facility] PRN Reason: Protocol Last Admin: 10/23/17 06:47 Dose: 6 units Insulin Detemir (Levemir Vial) 15 units SQ AM [facility] Last Admin: 10/23/17 06:42 Dose: 15 unit Methylprednisolone Sodium Succinate (Solu-Medrol -) 40 mg IVPUSH Q8H-IV [facility] Last Admin: 10/23/17 11:01 Dose: 40 mg Metoprolol Tartrate (Lopressor -) 25 mg PO BID [facility] Last Admin: 10/23/17 11:02 Dose: 25 mg Morphine Sulfate (Msir -) 15 mg PO Q6H PRN PRN Reason: breakthrough pain 6-10 Last Admin: 10/23/17 10:57 Dose: 15 mg Morphine Sulfate (Ms Contin -) 60 mg PO TID [facility] Last Admin: 10/23/17 05:59 Dose: 60 mg Mupirocin (Bactroban Ointment (For Decolonization) -) 1 applic NS BID [facility] Stop: 10/23/17 21:59 Last Admin: 10/23/17 11:00 Dose: Not Given Non-Formulary Medication (Eltrombopag Olamine [Promacta]) 50 mg PO DAILY [facility] Pantoprazole Sodium (Protonix -) 40 mg PO DAILY [facility] Last Admin: 10/23/17 10:58 Dose: 40 mg Sertraline HCl (Zoloft -) 25 mg PO DAILY [facility] Last Admin: 10/23/17 11:00 Dose: 25 mg Sitagliptin Phosphate (Januvia -) 50 mg PO DAILY@0700 [facility] Last Admin: 10/23/17 06:41 Dose: 50 mg - Objective Vital Signs: Vital Signs Temperature 98.1 F 10/23/17 09:00 Pulse Rate 69 10/23/17 09:00 Respiratory Rate 18 10/23/17 09:00 Blood Pressure 152/64 10/23/17 09:00 O2 Sat by Pulse Oximetry (%) 96 10/22/17 21:00 HENT: Yes: Atraumatic Neck: Yes: Supple Cardiovascular: Yes: Regular Rate and Rhythm, Murmur (SM), S1, S2 Respiratory: Yes: Diminished Gastrointestinal: Yes: Normal Bowel Sounds, Soft. No: Tenderness Edema: No Labs: CBC, BMP 10/23/17 06:20 10/23/17 06:20 Problem List - Problems (1) Acute respiratory failure with hypoxia Code(s): J96.01 - ACUTE RESPIRATORY FAILURE WITH HYPOXIA (2) CKD (chronic kidney disease) Code(s): N18.9 - CHRONIC KIDNEY DISEASE, UNSPECIFIED (3) Hypercapnic respiratory failure Code(s): J96.92 - RESPIRATORY FAILURE, UNSPECIFIED WITH HYPERCAPNIA Qualifiers: Chronicity: acute Qualified Code(s): J96.02 - Acute respiratory failure with hypercapnia (4) Pneumonia Code(s): J18.9 - PNEUMONIA, UNSPECIFIED ORGANISM Qualifiers: Pneumonia type: due to unspecified organism Laterality: unspecified laterality Lung location: unspecified part of lung Qualified Code(s): J18.9 - Pneumonia, unspecified organism (5) Respiratory failure with hypoxia and hypercapnia Code(s): J96.91 - RESPIRATORY FAILURE, UNSPECIFIED WITH HYPOXIA; J96.92 - RESPIRATORY FAILURE, UNSPECIFIED WITH HYPERCAPNIA (6) Anemia Code(s): D64.9 - ANEMIA, UNSPECIFIED Qualifiers: Anemia type: iron deficiency Iron deficiency anemia type: chronic blood loss Qualified Code(s): D50.0 - Iron deficiency anemia secondary to blood loss (chronic) (7) Chronic ITP (idiopathic thrombocytopenia) Code(s): D69.3 - IMMUNE THROMBOCYTOPENIC PURPURA (8) Diabetes mellitus Code(s): E11.9 - TYPE 2 DIABETES MELLITUS WITHOUT COMPLICATIONS Qualifiers: Diabetes mellitus type: drug or chemical induced Diabetes mellitus complication status: without complication (9) HTN (hypertension) Code(s): I10 - ESSENTIAL (PRIMARY) HYPERTENSION Qualifiers: Hypertension type: essential hypertension (10) Mantle cell lymphoma Code(s): C83.10 - MANTLE CELL LYMPHOMA, UNSPECIFIED SITE (11) Osteoarthritis Code(s): M19.90 - UNSPECIFIED OSTEOARTHRITIS, UNSPECIFIED SITE Assessment/Plan 1. Acute Hypoxic and Hypercapneic Respiratory Failure, related to pneumonia 2. Acute on chronic class II NYHA classification LV failure related to diastolic LV dysfunction 3. CAD angina pectoris 4. HTN 5. Diabetes mellitus 6. Hypercholesterolemia 7. COPD 8. Acute on CKD 9. History of thrombocytopenia post splenectomy with history of ITP 10. History of Mantle cell lymphoma 11. History of degenerative joint disease 12. Morbid obesity PLAN: 1. Continue Lopressor and Norvasc 2. Continue Diuretics with close monitoring of renal function 3. Ideally ACEI or ARBS are recommended once renal function at baseline 4. Recommend pharmacologic MPI study as outpatient for further evaluation of CAD , ischemic burden Further plans are to follow Abdon Salinas MD
--- NOTE | 2017-10-23 14:22 | PN ---
Progress Note, Physician Chief Complaint: Ms Painting continues to improve. Denies cp, sob, n/v. Feels she is stronger today. - Current Medication List Current Medications: Active Medications Acetaminophen (Tylenol -) 650 mg PO Q4H PRN PRN Reason: PAIN LEVEL 1-5 Albuterol Sulfate (Ventolin Hfa Inhaler -) 2 puff IH Q6H PRN PRN Reason: SHORTNESS OF BREATH Last Admin: 10/22/17 18:52 Dose: 2 puff Alprazolam (Xanax -) 0.5 mg PO Q8H PRN PRN Reason: ANXIETY Last Admin: 10/23/17 11:32 Dose: 0.5 mg Amlodipine Besylate (Norvasc -) 5 mg PO DAILY [facility] [place] Last Admin: 10/23/17 11:00 Dose: 5 mg Arformoterol Tartrate (Brovana (Restricted To Pulmonology/Resp) -) 1 amp NEB RBID [facility] Last Admin: 10/23/17 07:34 Dose: 1 amp Ascorbic Acid (Vitamin C -) 1,000 mg PO DAILY [facility] [place] Last Admin: 10/23/17 10:59 Dose: 1,000 mg Atovaquone (Mepron -) 1,500 mg PO DAILY@1900 [facility] Last Admin: 10/22/17 18:53 Dose: 1,500 mg Calcium Carbonate (Calcium Carbonate -) 650 mg PO BID [facility] Last Admin: 10/23/17 10:58 Dose: 650 mg Chlorhexidine Gluconate (Hibiclens For Decolonization -) 1 applic TP HS [facility] [place] Last Admin: 10/22/17 22:25 Dose: Not Given Docusate Sodium (Colace -) 100 mg PO BID [facility] [place] Last Admin: 10/23/17 10:59 Dose: 100 mg Ferrous Sulfate (Feosol -) 325 mg PO DAILY [facility] [place] Last Admin: 10/23/17 10:59 Dose: 325 mg [facility] Admin: 10/23/17 06:44 Dose: 5 mg Azithromycin 500 mg/ Dextrose 250 mls @ 250 mls/hr IVPB DAILY [facility] [place] Last Admin: 10/23/17 11:00 Dose: 250 mls/hr Piperacillin Sod/Tazobactam (Sod 4.5 gm/ Dextrose) 100 mls @ 200 mls/hr IVPB Q8H-IV [facility] PRN Reason: Protocol Last Admin: 10/23/17 11:01 Dose: 200 mls/hr Insulin Aspart (Novolog Vial Sliding Scale -) 1 vial SQ ACHS [facility] [place] PRN Reason: Protocol Last Admin: 10/23/17 13:05 Dose: 4 units Insulin Detemir (Levemir Vial) 15 units SQ AM [facility] Last Admin: 10/23/17 06:42 Dose: 15 unit Methylprednisolone Sodium Succinate (Solu-Medrol -) 40 mg IVPUSH Q8H-IV [facility] [place] Last Admin: 10/23/17 11:01 Dose: 40 mg Metoprolol Tartrate (Lopressor -) 25 mg PO BID [facility] [place] Last Admin: 10/23/17 11:02 Dose: 25 mg Morphine Sulfate (Msir -) 15 mg PO Q6H PRN PRN Reason: breakthrough pain 6-10 Last Admin: 10/23/17 10:57 Dose: 15 mg Morphine Sulfate (Ms Contin -) 60 mg PO TID [facility] [place] Last Admin: 10/23/17 05:59 Dose: 60 mg Mupirocin (Bactroban Ointment (For Decolonization) -) 1 applic NS BID [facility] [place] Stop: 10/23/17 21:59 Last Admin: 10/23/17 11:00 Dose: Not Given Non-Formulary Medication (Eltrombopag Olamine [Promacta]) 50 mg PO DAILY [facility] [place] Pantoprazole Sodium (Protonix -) 40 mg PO DAILY [facility] [place] Last Admin: 10/23/17 10:58 Dose: 40 mg Sertraline HCl (Zoloft -) 25 mg PO DAILY [facility] [place] Last Admin: 10/23/17 11:00 Dose: 25 mg Sitagliptin Phosphate (Januvia -) 50 mg PO DAILY@0700 [facility] [place] Last Admin: 10/23/17 06:41 Dose: 50 mg - Objective Vital Signs: Vital Signs Temperature 36.6 C 10/23/17 13:54 Pulse Rate 66 10/23/17 13:54 Respiratory Rate 18 10/23/17 13:54 Blood Pressure 128/60 10/23/17 13:54 O2 Sat by Pulse Oximetry (%) 96 10/23/17 09:00 Constitutional: Yes: No Distress, Calm, Obese Neck: Yes: Tenderness Cardiovascular: No: Gallop, Murmur, Rub Respiratory: Yes: Regular, CTA Bilaterally. No: Rales, Rhonchi, Wheezes Gastrointestinal: Yes: Normal Bowel Sounds, Soft. No: Distention, Tenderness Extremities: Yes: WNL Edema: No Labs: CBC, BMP 10/23/17 06:20 10/23/17 06:20 Assessment/Plan (1) Acute respiratory failure with hypoxia Assessment/Plan: -resolved -begin to taper solumedrol -make solumedrol 40mg q12h today -possible to decrease further tomorrow and change to prednisone taper on Mon Code(s): J96.01 - ACUTE RESPIRATORY FAILURE WITH HYPOXIA (2) HCAP (healthcare-associated pneumonia) Assessment/Plan: -ID note reviewed -change to augmentin 500mg bid x3d tomorrow Code(s): J18.9 - PNEUMONIA, UNSPECIFIED ORGANISM (3) CKD (chronic kidney disease) Assessment/Plan: -stable -continue lasix Code(s): N18.9 - CHRONIC KIDNEY DISEASE, UNSPECIFIED (4) Chronic ITP (idiopathic thrombocytopenia) Assessment/Plan: -hematology following -continue promacta -defer to hematology if promacta needs to be held as platelets are elevated Code(s): D69.3 - IMMUNE THROMBOCYTOPENIC PURPURA (5) Diabetes mellitus Assessment/Plan: -difficult to control secondary to steroids -endocrinology consulted Code(s): E11.9 - TYPE 2 DIABETES MELLITUS WITHOUT COMPLICATIONS Qualifiers: Diabetes mellitus type: drug or chemical induced Diabetes mellitus complication status: without complication (6) HTN (hypertension) Assessment/Plan: -continue norvasc and metoprolol -hold parameters Code(s): I10 - ESSENTIAL (PRIMARY) HYPERTENSION Qualifiers: (7) Sepsis Assessment/Plan: -resolved Code(s): A41.9 - SEPSIS, UNSPECIFIED ORGANISM (8) Tremors -appreciate neurology assistance Dispo -possible discharge Mon
[2017-10-23] MEDS: NYSTATIN 500,000 UNITS/5 ML SUSPENSION PO SCH ×2 (15:12→18:35)
--- NOTE | 2017-10-23 17:52 | PN ---
Progress Note (short form) - Note Progress Note: Renal follow up for CKD pt seen and examined at the bedside no acute complaints no sob, chest pain, abd pain breathing is better s/p nebs legs remains swollen lasix was held yesterday Vital Signs Temperature 97.8 F 10/23/17 13:54 Pulse Rate 66 10/23/17 13:54 Respiratory Rate 18 10/23/17 13:54 Blood Pressure 128/60 10/23/17 13:54 O2 Sat by Pulse Oximetry (%) 96 10/23/17 09:00 Intake & Output 10/20/17 10/21/17 10/22/17 10/23/17 23:59 23:59 23:59 23:59 Intake Total 475 1230 340 Output Total 3800 3100 Balance -3325 -3100 1230 340 Weight 112.945 kg 112.746 kg 113.086 kg NAD awake and alert RRR, NO m/R Dec Bs at lung bases obese, NT/ND + edema in LE CBC, BMP 10/23/17 06:20 10/23/17 06:20 Current Medications Acetaminophen (Tylenol -) 650 mg PO Q4H PRN PRN Reason: PAIN LEVEL 1-5 Albuterol Sulfate (Ventolin Hfa Inhaler -) 2 puff IH Q6H PRN PRN Reason: SHORTNESS OF BREATH Last Admin: 10/22/17 18:52 Dose: 2 puff Alprazolam (Xanax -) 0.5 mg PO Q8H PRN PRN Reason: ANXIETY Last Admin: 10/23/17 11:32 Dose: 0.5 mg Amlodipine Besylate (Norvasc -) 5 mg PO DAILY [facility] Last Admin: 10/23/17 11:00 Dose: 5 mg Amoxicillin/Clavulanate Potassium (Augmentin - 500mg Tablet) 1 tab PO BID@0800, 1730 [facility] Stop: 10/27/17 07:59 Arformoterol Tartrate (Brovana (Restricted To Pulmonology/Resp) -) 1 amp NEB RBID [facility] Last Admin: 10/23/17 07:34 Dose: 1 amp Ascorbic Acid (Vitamin C -) 1,000 mg PO DAILY [facility] Last Admin: 10/23/17 10:59 Dose: 1,000 mg Atovaquone (Mepron -) 1,500 mg PO DAILY@1900 [facility] Last Admin: 10/22/17 18:53 Dose: 1,500 mg Calcium Carbonate (Calcium Carbonate -) 650 mg PO BID [facility] Last Admin: 10/23/17 10:58 Dose: 650 mg Chlorhexidine Gluconate (Hibiclens For Decolonization -) 1 applic TP HS [facility] Last Admin: 10/22/17 22:25 Dose: Not Given Docusate Sodium (Colace -) 100 mg PO BID [facility] Last Admin: 10/23/17 10:59 Dose: 100 mg Ferrous Sulfate (Feosol -) 325 mg PO DAILY [facility] Last Admin: 10/23/17 10:59 Dose: 325 mg Glipizide (Glucotrol -) 5 mg PO BIDAC [facility] Last Admin: 10/23/17 17:39 Dose: 5 mg Piperacillin Sod/Tazobactam (Sod 4.5 gm/ Dextrose) 100 mls @ 200 mls/hr IVPB Q8H-IV [facility] PRN Reason: Protocol Stop: 10/23/17 23:59 Last Admin: 10/23/17 17:38 Dose: 200 mls/hr Insulin Aspart (Novolog Vial Sliding Scale -) 1 vial SQ ACHS [facility] PRN Reason: Protocol Last Admin: 10/23/17 17:47 Dose: 2 units Insulin Detemir (Levemir Vial) 15 units SQ AM [facility] Last Admin: 10/23/17 06:42 Dose: 15 unit Methylprednisolone Sodium Succinate (Solu-Medrol -) 40 mg IVPUSH Q12H [facility] Last Admin: 10/23/17 17:46 Dose: 40 mg Metoprolol Tartrate (Lopressor -) 25 mg PO BID [facility] Last Admin: 10/23/17 11:02 Dose: 25 mg Morphine Sulfate (Msir -) 15 mg PO Q6H PRN PRN Reason: breakthrough pain 6-10 Last Admin: 10/23/17 10:57 Dose: 15 mg Morphine Sulfate (Ms Contin -) 60 mg PO TID [facility] Last Admin: 10/23/17 15:12 Dose: 60 mg Mupirocin (Bactroban Ointment (For Decolonization) -) 1 applic NS BID [facility] Stop: 10/23/17 21:59 Last Admin: 10/23/17 11:00 Dose: Not Given Non-Formulary Medication (Eltrombopag Olamine [Promacta]) 50 mg PO DAILY [facility] Nystatin (Nystatin Oral Suspension -) 500,000 units PO Q6HPO [facility] Last Admin: 10/23/17 15:12 Dose: 500,000 units Pantoprazole Sodium (Protonix -) 40 mg PO DAILY [facility] Last Admin: 10/23/17 10:58 Dose: 40 mg Sertraline HCl (Zoloft -) 25 mg PO DAILY [facility] Last Admin: 10/23/17 11:00 Dose: 25 mg Sitagliptin Phosphate (Januvia -) 50 mg PO DAILY@0700 [facility] Last Admin: 10/23/17 06:41 Dose: 50 mg 67 year old woman with PMhx of CKD, Mantle Cell Lymphoma, ITP, IDDM, Hypertension, chronic hydronephorosis who presents with SOB and cough and found to be hypoxic in setting of PNA with Cr of 2. #CKD Stage 3 #ITP #Hx of Mantle Cell Lymphoma #Sepsis/PNA #Hx of Hydronephrosis Renal function improved s/p withholding of Lasix pt with LE edema and will need diuretics plan to restart standing dose tomorrow if renal function remains stable continue steroid taper and Abx as per ID Dash Padron DO
[2017-10-23] MEDS: ATOVAQUONE 750 MG/5 ML (UNIT-DOSE PACKAGING) PO SCH (18:36)
[2017-10-23] MEDS: CHLORHEXIDINE GLUCONATE 4% CLEANSER FOR DECOLONIZATION TP SCH (22:09)
--- NOTE | 2017-10-23 23:53 | PN ---
Progress Note (short form) - Note Progress Note: Patient seen and examined Feels ok denies any specific complaints AFVSS Cor: RSR, No murmurs, No gallops Lungs: scattered wheezes Abd: Soft, Normal bowel sounds, No organomegaly Ext:No significant edema Abnormal Lab Results 10/23/17 10/23/17 06:20 06:20 WBC 13.9 H RDW 19.8 H Plt Count 557 H Neutrophils % (Manual) 93.8 H Lymphocytes % (Manual) 1.1 L D Monocytes % (Manual) 3 L Nucleated RBC % 1 H Sodium 132 L Potassium 5.2 H Chloride 89 L Carbon Dioxide 37 H Anion Gap 6 L BUN 47 H Creatinine 2.1 H Random Glucose 352 H* Magnesium 2.5 H AST 12 L Albumin 2.4 L Active Medications Generic Name Dose Route Start Last Admin Trade Name Freq PRN Reason Stop Dose Admin Acetaminophen 650 mg 10/19/17 22:19 Tylenol - PO Q4H PRN PAIN LEVEL 1-5 Albuterol Sulfate 2 puff 10/19/17 22:19 10/22/17 18:52 Ventolin Hfa Inhaler - IH 2 puff Q6H PRN Administration SHORTNESS OF BREATH Alprazolam 0.5 mg 10/19/17 22:19 10/23/17 11:32 Xanax - PO 0.5 mg Q8H PRN Administration ANXIETY Amlodipine Besylate 5 mg 10/20/17 10:00 10/23/17 11:00 Norvasc - PO 5 mg DAILY [facility] Administration Amoxicillin/Clavulanate Potassium 1 tab 10/24/17 08:00 Augmentin - 500mg Tablet PO 10/27/17 07:59 BID@0800,1730 [facility] Arformoterol Tartrate 1 amp 10/20/17 08:00 10/23/17 21:35 Brovana (Restricted To Pulmonology/Resp) - NEB 1 amp RBID [facility] Administration Ascorbic Acid 1,000 mg 10/20/17 10:00 10/23/17 10:59 Vitamin C - PO 1,000 mg DAILY [facility] Administration Atovaquone 1,500 mg 10/20/17 19:00 10/23/17 18:36 Mepron - PO 1,500 mg DAILY@1900 [facility] Administration Calcium Carbonate 650 mg 10/20/17 10:00 10/23/17 22:50 Calcium Carbonate - PO 650 mg BID [facility] Administration Chlorhexidine Gluconate 1 applic 10/20/17 22:00 10/23/17 22:09 Hibiclens For Decolonization - TP Not Given HS [facility] Docusate Sodium 100 mg 10/20/17 23:15 10/23/17 22:08 Colace - PO 100 mg Glipizide 5 mg 10/20/17 07:00 10/24/17 06:35 Glucotrol - PO 5 mg BIDAC [facility] [place] Administration Insulin Aspart 1 vial 10/20/17 07:00 10/24/17 06:44 Novolog Vial Sliding Scale - SQ Not Given ACHS [facility] [place] Protocol Insulin Detemir 15 units 10/21/17 07:00 10/24/17 06:33 Levemir Vial SQ 15 unit AM [facility] [place] Administration Methylprednisolone Sodium Succinate 40 mg 10/23/17 17:30 10/24/17 06:35 Solu-Medrol - IVPUSH 40 mg Q12H [facility] Administration Metoprolol Tartrate 25 mg 10/20/17 10:00 10/23/17 22:08 Lopressor - PO 25 mg BID [facility] [place] Administration Morphine Sulfate 15 mg 10/19/17 22:19 10/24/17 02:31 Msir - PO 15 mg Q6H PRN Administration breakthrough pain 6-10 Morphine Sulfate 60 mg 10/20/17 06:00 10/24/17 06:35 Ms Contin - PO 60 mg TID [facility] [place] Administration Nystatin 500,000 units 10/23/17 14:30 10/24/17 06:33 Nystatin Oral Suspension - PO 500,000 units Q6HPO [facility] Administration Pantoprazole Sodium 40 mg 10/20/17 10:00 10/23/17 10:58 Protonix - PO 40 mg DAILY [facility] Administration Sertraline HCl 25 mg 10/20/17 10:00 10/23/17 11:00 Zoloft - PO 25 mg DAILY [facility] Administration Sitagliptin Phosphate 50 mg 10/20/17 07:00 10/24/17 06:35 Januvia - PO 50 mg DAILY@0700 [facility] [place] Administration A/P 67 y/o patient with Acute Hypoxic and Hypercapneic Respiratory Failure improved Pneumonia Sepsis resolving Lactic Acidosis improving Mantle Cell Lymphoma h/o ITP HTN DM CKD Holding promacta. will reinitiate when latelet counts are <50,000 continue supportive care
[2017-10-24] MEDS ORDERED: PIPERACILLIN/TAZOBACTAM 4.5 GM VIAL IVPB ONE ×2 (00:31→00:33)
[2017-10-24] MEDS ORDERED: DEXTROSE 5%-WATER 100 ML IVPB ONE ×2 (00:33→00:34)
[2017-10-24] MEDS: NYSTATIN 500,000 UNITS/5 ML SUSPENSION PO SCH ×4 (00:42→17:17)
[2017-10-24] MEDS: morphine SULFATE IMMEDIATE RELEASE 30 MG TAB PO PRN ×2 (02:31→16:13)
[2017-10-24] MEDS: INSULIN (LEVEMIR) 100 UNITS/ML UNITS SQ SCH (06:33)
[2017-10-24] MEDS: methylPREDNISolone NA SUCC 40 MG/1 ML VIAL IVPUSH SCH (06:35)
[2017-10-24] MEDS: glipiZIDE 5 MG TABLET (FP) PO SCH ×2 (06:35→17:17)
[2017-10-24] MEDS: morphine SO4 SUSTAINED ACTING 15 MG TABLET.SA PO SCH ×3 (06:35→21:54)
[2017-10-24] MEDS: sitaGLIPtin PHOSPHATE 50 MG TABLET PO SCH (06:35)
[2017-10-24] MEDS: INSULIN SLIDING SCALE (NOVOLOG) 1 VIAL SQ SCH ×4 (06:44→21:55)
[2017-10-24] MEDS ORDERED: INSULIN (LEVEMIR) 100 UNITS/ML UNITS SQ ONE ×2 (07:05→21:07)
[2017-10-24] MEDS: ARFORMOTEROL TARTRATE 15 MCG/2 ML VIAL NEB SCH ×2 (07:25→19:58)
[2017-10-24 07:51] LABS: BASO % 0.2 % (0-2.0); EOS % 0.1 % (0-4.5); HEMATOCRIT 41.2 % (32.4-45.2); HEMOGLOBIN 13.2 GM/dL (10.7-15.3); LYMPH % 9.2 % (8-40); MCH 29.2 pg (25.7-33.7); MCHC 32.1 g/dl (32.0-36.0); MEAN CELL VOLUME 90.8 fl (80-96); MEAN PLT VOLUME 9.3 fl (7.5-11.1); MONO % 7.5 % (3.8-10.2); PLATELET COUNT 624 K/MM3 (134-434); RBC 4.54 M/mm3 (3.60-5.2); WHITE BLOOD COUNT 18.1 K/mm3 (4.0-10.0)
[2017-10-24 08:16] LABS: CHLORIDE 94 mmol/L (98-107); POTASSIUM 4.6 mmol/L (3.5-5.1); SODIUM 136 mmol/L (136-145)
[2017-10-24 08:50] LABS: ANION GAP 10 (8-16); BLOOD UREA NITROGEN 41 mg/dL (7-18); CALCIUM 9.4 mg/dL (8.5-10.1); CO2 32 mmol/L (21-32); CREATININE 1.7 mg/dL (0.55-1.02); GLUCOSE,RANDOM 87 mg/dL (74-106); MAGNESIUM 2.4 mg/dL (1.8-2.4); PHOSPHOROUS 3.6 mg/dL (2.5-4.9)
[2017-10-24] MEDS: AMOX TR/POT CLAV 500MG/125MG TABLETS (FP) PO SCH ×2 (09:00→17:17)
--- NOTE | 2017-10-24 09:13 | PN ---
Progress Note (short form) - Note Progress Note: Neurology History of Present Illness: 67 year old female who initially presented with sudden onset shortness of breath , reportedly with non-productive cough and nausea but no vomiting. She denied fevers, chills, lightheadedness, dizziness, chest pain or pressure, diarrhea, constipation, difficulty or pain on urination, or worsening leg swelling. She was found to be hypoxic and placed on bipap. Respiratory discomfort has improved and I was consulted for tremor. She appeared to have small amplitude tremor on UE extension and reports slightly better today. Does not have h/o heavy Etoh, does have h/o DM but persistent tremor that does not appear be 2/2 glycemic shifts. More likely benign essential tremor, mild in severity. Active Medications Acetaminophen (Tylenol -) 650 mg PO Q4H PRN PRN Reason: PAIN LEVEL 1-5 Albuterol Sulfate (Ventolin Hfa Inhaler -) 2 puff IH Q6H PRN PRN Reason: SHORTNESS OF BREATH Last Admin: 10/22/17 18:52 Dose: 2 puff Alprazolam (Xanax -) 0.5 mg PO Q8H PRN PRN Reason: ANXIETY Last Admin: 10/23/17 11:32 Dose: 0.5 mg Amlodipine Besylate (Norvasc -) 5 mg PO DAILY [facility] Last Admin: 10/23/17 11:00 Dose: 5 mg Amoxicillin/Clavulanate Potassium (Augmentin - 500mg Tablet) 1 tab PO BID@0800, 1730 [facility] Stop: 10/27/17 07:59 Arformoterol Tartrate (Brovana (Restricted To Pulmonology/Resp) -) 1 amp NEB RBID [facility] Last Admin: 10/24/17 07:25 Dose: 1 amp Ascorbic Acid (Vitamin C -) 1,000 mg PO DAILY [facility] Last Admin: 10/23/17 10:59 Dose: 1,000 mg Atovaquone (Mepron -) 1,500 mg PO DAILY@1900 [facility] Last Admin: 10/23/17 18:36 Dose: 1,500 mg Calcium Carbonate (Calcium Carbonate -) 650 mg PO BID [facility] Last Admin: 10/23/17 22:50 Dose: 650 mg Chlorhexidine Gluconate (Hibiclens For Decolonization -) 1 applic TP HS [facility] Last Admin: 10/23/17 22:09 Dose: Not Given Docusate Sodium (Colace -) 100 mg PO BID [facility] Last Admin: 10/23/17 22:08 Dose: 100 mg Ferrous Sulfate (Feosol -) 325 mg PO DAILY [facility] Last Admin: 10/23/17 10:59 Dose: 325 mg Glipizide (Glucotrol -) 5 mg PO BIDAC [facility] Last Admin: 10/24/17 06:35 Dose: 5 mg Insulin Aspart (Novolog Vial Sliding Scale -) 1 vial SQ ACHS [facility] PRN Reason: Protocol Last Admin: 10/24/17 06:44 Dose: Not Given Insulin Detemir (Levemir Vial) 15 units SQ AM [facility] Last Admin: 10/24/17 06:33 Dose: 15 unit Methylprednisolone Sodium Succinate (Solu-Medrol -) 40 mg IVPUSH Q12H [facility] Last Admin: 10/24/17 06:35 Dose: 40 mg Metoprolol Tartrate (Lopressor -) 25 mg PO BID [facility] Last Admin: 10/23/17 22:08 Dose: 25 mg Morphine Sulfate (Msir -) 15 mg PO Q6H PRN PRN Reason: breakthrough pain 6-10 Last Admin: 10/24/17 02:31 Dose: 15 mg Morphine Sulfate (Ms Contin -) 60 mg PO TID [facility] Last Admin: 10/24/17 06:35 Dose: 60 mg Nystatin (Nystatin Oral Suspension -) 500,000 units PO Q6HPO [facility] Last Admin: 10/24/17 06:33 Dose: 500,000 units Pantoprazole Sodium (Protonix -) 40 mg PO DAILY [facility] Last Admin: 10/23/17 10:58 Dose: 40 mg Sertraline HCl (Zoloft -) 25 mg PO DAILY [facility] Last Admin: 10/23/17 11:00 Dose: 25 mg Sitagliptin Phosphate (Januvia -) 50 mg PO DAILY@0700 [facility] Last Admin: 10/24/17 06:35 Dose: 50 mg Physical Examination Vital Signs Temperature 98.9 F 10/24/17 05:41 Pulse Rate 55 L 10/24/17 05:41 Respiratory Rate 18 10/24/17 05:41 Blood Pressure 154/65 10/24/17 05:41 O2 Sat by Pulse Oximetry (%) 96 10/23/17 21:00 Constitutional: Yes: No Distress, Calm, Obese Eyes: Yes: Conjunctiva Clear, EOM Intact, PERRL HENT: Yes: Atraumatic, Normocephalic Cardiovascular: Yes: Tachycardia. No: Pulse Irregular, Gallop, Murmur, Rub Respiratory: Yes: On BiPap, Rales, Rhonchi, Tachypnea. No: Regular, CTA Bilaterally, Wheezes Gastrointestinal: Yes: Normal Bowel Sounds, Soft. No: Distention, Tenderness Extremities: Yes: WNL Neuro: CN intact, sensory normal, moves all extremities equally, mild tremor on UE extension, no convulsions noted, gait deferred CBCD WBC 18.1 K/mm3 (4.0-10.0) H D 10/24/17 06:00 RBC 4.54 M/mm3 (3.60-5.2) 10/24/17 06:00 Hgb 13.2 GM/dL (10.7-15.3) 10/24/17 06:00 Hct 41.2 % (32.4-45.2) 10/24/17 06:00 MCV 90.8 fl (80-96) 10/24/17 06:00 MCHC 32.1 g/dl (32.0-36.0) 10/24/17 06:00 RDW 19.0 % (11.6-15.6) H 10/24/17 06:00 Plt Count 624 K/MM3 (134-434) H 10/24/17 06:00 MPV 9.3 fl (7.5-11.1) 10/24/17 06:00 CMP Sodium 136 mmol/L (136-145) 10/24/17 06:00 Potassium 4.6 mmol/L (3.5-5.1) 10/24/17 06:00 Chloride 94 mmol/L (98-107) L 10/24/17 06:00 Carbon Dioxide 32 mmol/L (21-32) 10/24/17 06:00 Anion Gap 10 (8-16) 10/24/17 06:00 BUN 41 mg/dL (7-18) H 10/24/17 06:00 Creatinine 1.7 mg/dL (0.55-1.02) H 10/24/17 06:00 Creat Clearance w eGFR 23.49 (>60) 10/23/17 06:20 Calcium 9.4 mg/dL (8.5-10.1) 10/24/17 06:00 Total Bilirubin 0.4 mg/dL (0.2-1.0) 10/23/17 06:20 AST 12 U/L (15-37) L 10/23/17 06:20 ALT 16 U/L (12-78) 10/23/17 06:20 Alkaline Phosphatase 59 U/L (45-117) 10/23/17 06:20 Total Protein 6.4 g/dl (6.4-8.2) 10/23/17 06:20 Albumin 2.4 g/dl (3.4-5.0) L 10/23/17 06:20 PLan 67 year old female who initially presented with sudden onset shortness of breath , reportedly with non-productive cough and nausea but no vomiting. She denied fevers, chills, lightheadedness, dizziness, chest pain or pressure, diarrhea, constipation, difficulty or pain on urination, or worsening leg swelling. She was found to be hypoxic and placed on bipap. Respiratory discomfort has improved and I was consulted for tremor. She appears to have small amplitude tremor on UE extension. Does not have h/o heavy Etoh, does have h/o DM but persistent tremor that does not appear be 2/2 glycemic shifts. Reports being better today. More likely benign essential tremor. Will not pursue further intervention now in acute setting, recommended outpatient followup when clinically at baseline and can further assess. Patient in agreement. Continue current medical mgmt. Would advise monitoring glucose and maintain euglycemic state.
[2017-10-24] MEDS: METOPROLOL TARTRATE 25 MG TABLET (FP) PO SCH ×2 (09:46→21:53)
[2017-10-24] MEDS: SERTRALINE HCL 25 MG TABLET (FP) PO SCH (09:46)
[2017-10-24] MEDS: ALPRAZolam 0.25 MG TABLET PO PRN ×2 (09:46→21:59)
[2017-10-24] MEDS: amLODIPine BESYLATE 5 MG TABLET (FP) PO SCH (09:46)
[2017-10-24] MEDS: FERROUS SO4 325 MG TABLET (FP) PO SCH (09:46)
[2017-10-24] MEDS: ASCORBIC ACID 500 MG TABLET (FP) PO SCH (09:46)
[2017-10-24] MEDS: PANTOPRAZOLE 40 MG TABLET (FP) PO SCH (09:46)
[2017-10-24] MEDS: DOCUSATE SODIUM 100 MG CAPSULE (FP) PO SCH ×2 (09:46→21:53)
--- NOTE | 2017-10-24 10:22 | PN ---
Progress Note (short form) - Note Progress Note: PULMONARY Denies shortness of breath, cough or wheezing. Last Vital Signs Temp Pulse Resp BP Pulse Ox 98.9 F 55 L 18 154/65 96 10/24/17 05:41 10/24/17 05:41 10/24/17 05:41 10/24/17 05:41 10/23/17 21:00 Gen: NAD at rest Heart: RRR Lung: decreased breath sounds at the bases Abd: soft, nontender Ext: + edema CBC, BMP 10/24/17 06:00 10/24/17 06:00 Active Medications Acetaminophen (Tylenol -) 650 mg PO Q4H PRN PRN Reason: PAIN LEVEL 1-5 Albuterol Sulfate (Ventolin Hfa Inhaler -) 2 puff IH Q6H PRN PRN Reason: SHORTNESS OF BREATH Last Admin: 10/22/17 18:52 Dose: 2 puff Alprazolam (Xanax -) 0.5 mg PO Q8H PRN PRN Reason: ANXIETY Last Admin: 10/24/17 09:46 Dose: 0.5 mg Amlodipine Besylate (Norvasc -) 5 mg PO DAILY [facility] Last Admin: 10/24/17 09:46 Dose: 5 mg Amoxicillin/Clavulanate Potassium (Augmentin - 500mg Tablet) 1 tab PO BID@0800, 1730 [facility] Stop: 10/27/17 07:59 Arformoterol Tartrate (Brovana (Restricted To Pulmonology/Resp) -) 1 amp NEB RBID [facility] Last Admin: 10/24/17 07:25 Dose: 1 amp Ascorbic Acid (Vitamin C -) 1,000 mg PO DAILY [facility] Last Admin: 10/24/17 09:46 Dose: 1,000 mg Atovaquone (Mepron -) 1,500 mg PO DAILY@1900 [facility] Last Admin: 10/23/17 18:36 Dose: 1,500 mg Calcium Carbonate (Calcium Carbonate -) 650 mg PO BID [facility] Last Admin: 10/23/17 22:50 Dose: 650 mg Chlorhexidine Gluconate (Hibiclens For Decolonization -) 1 applic TP HS [facility] Last Admin: 10/23/17 22:09 Dose: Not Given Docusate Sodium (Colace -) 100 mg PO BID [facility] Last Admin: 10/24/17 09:46 Dose: 100 mg Ferrous Sulfate (Feosol -) 325 mg PO DAILY [facility] Last Admin: 10/24/17 09:46 Dose: 325 mg Glipizide (Glucotrol -) 5 mg PO BIDAC [facility] Last Admin: 10/24/17 06:35 Dose: 5 mg Insulin Aspart (Novolog Vial Sliding Scale -) 1 vial SQ ACHS [facility] PRN Reason: Protocol Last Admin: 10/24/17 06:44 Dose: Not Given Insulin Detemir (Levemir Vial) 15 units SQ AM [facility] Last Admin: 10/24/17 06:33 Dose: 15 unit Methylprednisolone Sodium Succinate (Solu-Medrol -) 40 mg IVPUSH Q12H [facility] Last Admin: 10/24/17 06:35 Dose: 40 mg Metoprolol Tartrate (Lopressor -) 25 mg PO BID [facility] Last Admin: 10/24/17 09:46 Dose: 25 mg Morphine Sulfate (Msir -) 15 mg PO Q6H PRN PRN Reason: breakthrough pain 6-10 Last Admin: 10/24/17 02:31 Dose: 15 mg Morphine Sulfate (Ms Contin -) 60 mg PO TID [facility] Last Admin: 10/24/17 06:35 Dose: 60 mg Nystatin (Nystatin Oral Suspension -) 500,000 units PO Q6HPO [facility] Last Admin: 10/24/17 06:33 Dose: 500,000 units Pantoprazole Sodium (Protonix -) 40 mg PO DAILY [facility] Last Admin: 10/24/17 09:46 Dose: 40 mg Sertraline HCl (Zoloft -) 25 mg PO DAILY [facility] Last Admin: 10/24/17 09:46 Dose: 25 mg Sitagliptin Phosphate (Januvia -) 50 mg PO DAILY@0700 [facility] Last Admin: 10/24/17 06:35 Dose: 50 mg A/P Acute Hypoxic and Hypercapneic Respiratory Failure improving Pneumonia Sepsis resolving Lactic Acidosis improving Mantle Cell Lymphoma h/o ITP HTN DM CKD - continue antibiotics per ID - will change steroids to PO prednisone 30mg daily and can taper as outpt - inhaled bronchodilators standing and PRN - O2 to keep SpO2 >90% - lasix as needed - monitor urine output, creatinine - glucose control while on systemic steroids - DVT prophylaxis
[2017-10-24] MEDS: CALCIUM CARBONATE 650 MG TABLET PO SCH ×2 (11:00→21:53)
[2017-10-24] MEDS: predniSONE 10 MG TABLET (UD) PO SCH (11:30)
--- NOTE | 2017-10-24 11:39 | PN ---
Progress Note (short form) - Note Progress Note: Patient seen and examined Feels ok denies any specific complaints AFVSS Cor: RSR, No murmurs, No gallops Lungs: scattered wheezes Abd: Soft, Normal bowel sounds, No organomegaly Ext:No significant edema Last Vital Signs Temp Pulse Resp BP Pulse Ox 98.3 F 70 18 149/55 96 10/24/17 10:00 10/24/17 10:00 10/24/17 10:00 10/24/17 10:00 10/23/17 21:00 CBC, BMP 10/24/17 06:00 10/24/17 06:00 Current Medications Generic Name Dose Route Start Last Admin Trade Name Freq PRN Reason Stop Dose Admin Acetaminophen 650 mg 10/19/17 22:19 Tylenol - PO Q4H PRN PAIN LEVEL 1-5 Albuterol Sulfate 2 puff 10/19/17 22:19 10/22/17 18:52 Ventolin Hfa Inhaler - IH 2 puff Q6H PRN Administration SHORTNESS OF BREATH Alprazolam 0.5 mg 10/19/17 22:19 10/24/17 09:46 Xanax - PO 0.5 mg Q8H PRN Administration ANXIETY Amlodipine Besylate 5 mg 10/20/17 10:00 10/24/17 09:46 Norvasc - PO 5 mg DAILY PR[facility]ANT Administration Amoxicillin/Clavulanate Potassium 1 tab 10/24/17 08:00 Augmentin - 500mg Tablet PO 10/27/17 07:59 BID@0800,1730 PRASHANT Arformoterol Tartrate 1 amp 10/20/17 08:00 10/24/17 07:25 Brovana (Restricted To Pulmonology/Resp) - NEB 1 amp RBID PR[facility] Administration Ascorbic Acid 1,000 mg 10/20/17 10:00 10/24/17 09:46 Vitamin C - PO 1,000 mg DAILY [facility] Administration Atovaquone 1,500 mg 10/20/17 19:00 10/23/17 18:36 Mepron - PO 1,500 mg DAILY@1900 PR[facility] Administration Calcium Carbonate 650 mg 10/20/17 10:00 10/23/17 22:50 Calcium Carbonate - PO 650 mg BID PR[facility] Administration Chlorhexidine Gluconate 1 applic 10/20/17 22:00 10/23/17 22:09 Hibiclens For Decolonization - TP Not Given HS [facility] Docusate Sodium 100 mg 10/20/17 23:15 10/24/17 09:46 Colace - PO 100 mg BID PR[facility]ANT Administration Ferrous Sulfate 325 mg 10/20/17 10:00 10/24/17 09:46 Feosol - PO 325 mg DAILY [facility] Administration Glipizide 5 mg 10/20/17 07:00 10/24/17 06:35 Glucotrol - PO 5 mg BIDAC PR[facility] Administration Insulin Aspart 1 vial 10/20/17 07:00 10/24/17 06:44 Novolog Vial Sliding Scale - SQ Not Given ACHS [facility] Protocol Insulin Detemir 15 units 10/21/17 07:00 10/24/17 06:33 Levemir Vial SQ 15 unit AM [facility] Administration Metoprolol Tartrate 25 mg 10/20/17 10:00 10/24/17 09:46 Lopressor - PO 25 mg BID [facility] Administration Morphine Sulfate 15 mg 10/19/17 22:19 10/24/17 02:31 Msir - PO 15 mg Q6H PRN Administration breakthrough pain 6-10 Morphine Sulfate 60 mg 10/20/17 06:00 10/24/17 06:35 Ms Contin - PO 60 mg TID PRASHANT Administration Nystatin 500,000 units 10/23/17 14:30 10/24/17 06:33 Nystatin Oral Suspension - PO 500,000 units Q6HPO [facility] Administration Pantoprazole Sodium 40 mg 10/20/17 10:00 10/24/17 09:46 Protonix - PO 40 mg DAILY [facility] Administration Prednisone 30 mg 10/24/17 10:30 Deltasone - PO DAILY [facility] Sertraline HCl 25 mg 10/20/17 10:00 10/24/17 09:46 Zoloft - PO 25 mg DAILY [facility] Administration Sitagliptin Phosphate 50 mg 10/20/17 07:00 10/24/17 06:35 Januvia - PO 50 mg DAILY@0700 [facility] Administration A/P 67 y/o patient with Acute Hypoxic and Hypercapneic Respiratory Failure improved Pneumonia Mantle Cell Lymphoma h/o ITP HTN DM CKD Holding promacta. will reinitiate when platelet counts are <50,000 continue supportive care will c/w mepron d/c planning f/u in office
[2017-10-24 11:48] LABS: ANISOCYTOSIS 1+; MACROCYTOSIS 1+; PLATELET ESTIMATE INCREASED; TARGET CELLS 1+
[2017-10-24] MEDS ORDERED: INSULIN (NOVOLOG) ASPART 100 UNITS/ML 10ML VIAL ONE ×3 (13:24→21:05)
[2017-10-24] MEDS: ELTROMBOPAG OLAMINE 50 MG PO SCH ×3 (13:38→15:22)
--- NOTE | 2017-10-24 16:51 | PN ---
Progress Note, Physician Chief Complaint: Ms Painting complains of being very anxious but otherwise feeling well. No cp, sob, n/v. - Current Medication List Current Medications: Active Medications Acetaminophen (Tylenol -) 650 mg PO Q4H PRN PRN Reason: PAIN LEVEL 1-5 Albuterol Sulfate (Ventolin Hfa Inhaler -) 2 puff IH Q6H PRN PRN Reason: SHORTNESS OF BREATH Last Admin: 10/22/17 18:52 Dose: 2 puff Alprazolam (Xanax -) 0.5 mg PO Q6H PRN PRN Reason: ANXIETY Amlodipine Besylate (Norvasc -) 5 mg PO DAILY [facility] Last Admin: 10/24/17 09:46 Dose: 5 mg Amoxicillin/Clavulanate Potassium (Augmentin - 500mg Tablet) 1 tab PO BID@0800, 1730 [facility] Stop: 10/27/17 07:59 Last Admin: 10/24/17 09:00 Dose: 1 tab Arformoterol Tartrate (Brovana (Restricted To Pulmonology/Resp) -) 1 amp NEB RBID [facility] Last Admin: 10/24/17 07:25 Dose: 1 amp Ascorbic Acid (Vitamin C -) 1,000 mg PO DAILY [facility] Last Admin: 10/24/17 09:46 Dose: 1,000 mg Atovaquone (Mepron -) 1,500 mg PO DAILY@1900 [facility] Last Admin: 10/23/17 18:36 Dose: 1,500 mg Calcium Carbonate (Calcium Carbonate -) 650 mg PO BID [facility] Last Admin: 10/24/17 11:00 Dose: 650 mg Chlorhexidine Gluconate (Hibiclens For Decolonization -) 1 applic TP HS [facility] Last Admin: 10/23/17 22:09 Dose: Not Given Docusate Sodium (Colace -) 100 mg PO BID [facility] Last Admin: 10/24/17 09:46 Dose: 100 mg Ferrous Sulfate (Feosol -) 325 mg PO DAILY [facility] Last Admin: 10/24/17 09:46 Dose: 325 mg Glipizide (Glucotrol -) 5 mg PO BIDAC [facility] Last Admin: 10/24/17 06:35 Dose: 5 mg Insulin Aspart (Novolog Vial Sliding Scale -) 1 vial SQ ACHS [facility] PRN Reason: Protocol Last Admin: 10/24/17 13:27 Dose: 2 units Insulin Detemir (Levemir Vial) 15 units SQ AM [facility] Last Admin: 10/24/17 06:33 Dose: 15 unit Metoprolol Tartrate (Lopressor -) 25 mg PO BID [facility] Last Admin: 10/24/17 09:46 Dose: 25 mg Morphine Sulfate (Msir -) 15 mg PO Q6H PRN PRN Reason: breakthrough pain 6-10 Last Admin: 10/24/17 16:13 Dose: 15 mg Morphine Sulfate (Ms Contin -) 60 mg PO TID [facility] Last Admin: 10/24/17 13:26 Dose: 60 mg Nystatin (Nystatin Oral Suspension -) 500,000 units PO Q6HPO [facility] Last Admin: 10/24/17 12:00 Dose: 500,000 units Pantoprazole Sodium (Protonix -) 40 mg PO DAILY [facility] Last Admin: 10/24/17 09:46 Dose: 40 mg Prednisone (Deltasone -) 30 mg PO DAILY [facility] Last Admin: 10/24/17 11:30 Dose: 30 mg Sertraline HCl (Zoloft -) 25 mg PO DAILY [facility] Last Admin: 10/24/17 09:46 Dose: 25 mg Sitagliptin Phosphate (Januvia -) 50 mg PO DAILY@0700 [facility] Last Admin: 10/24/17 06:35 Dose: 50 mg - Objective Vital Signs: Vital Signs Temperature 36.8 C 10/24/17 14:03 Pulse Rate 66 10/24/17 14:03 Respiratory Rate 20 10/24/17 14:03 Blood Pressure 134/69 10/24/17 14:03 O2 Sat by Pulse Oximetry (%) 94 L 10/24/17 09:00 Constitutional: Yes: No Distress, Calm, Obese Cardiovascular: Yes: Regular Rate and Rhythm. No: Gallop, Murmur, Rub Respiratory: Yes: Regular, CTA Bilaterally. No: Rales, Rhonchi, Wheezes Gastrointestinal: Yes: Normal Bowel Sounds, Soft. No: Distention, Tenderness Extremities: Yes: WNL Edema: No Labs: CBC, BMP 10/24/17 06:00 10/24/17 06:00 Assessment/Plan (1) Acute respiratory failure with hypoxia Assessment/Plan: -resolved -changed to oral prednisone today secondary to elevated platelets -monitor, plan for discharge tomorrow Code(s): J96.01 - ACUTE RESPIRATORY FAILURE WITH HYPOXIA (2) HCAP (healthcare-associated pneumonia) Assessment/Plan: -ID note reviewed -augmentin day 06/07 today Code(s): J18.9 - PNEUMONIA, UNSPECIFIED ORGANISM (3) CKD (chronic kidney disease) Assessment/Plan: -stable -continue lasix Code(s): N18.9 - CHRONIC KIDNEY DISEASE, UNSPECIFIED (4) Chronic ITP (idiopathic thrombocytopenia) Assessment/Plan: -hematology following -continue promacta -changed to prednisone Code(s): D69.3 - IMMUNE THROMBOCYTOPENIC PURPURA (5) Diabetes mellitus Assessment/Plan: -endocrinology following and appreciate assistance Code(s): E11.9 - TYPE 2 DIABETES MELLITUS WITHOUT COMPLICATIONS Qualifiers: Diabetes mellitus type: drug or chemical induced Diabetes mellitus complication status: without complication (6) HTN (hypertension) Assessment/Plan: -continue norvasc and metoprolol -hold parameters Code(s): I10 - ESSENTIAL (PRIMARY) HYPERTENSION Qualifiers: (7) Sepsis Assessment/Plan: -resolved Code(s): A41.9 - SEPSIS, UNSPECIFIED ORGANISM (8) Tremors -appreciate neurology assistance Dispo -plan for discharge tomorrow
--- NOTE | 2017-10-24 17:25 | PN ---
Progress Note, Physician Chief Complaint: Not in distress History of Present Illness: Patient was seen and examined. Awake and alert. Chart was reviewed Denies chest pain or palpitations - Current Medication List Current Medications: Active Medications Acetaminophen (Tylenol -) 650 mg PO Q4H PRN PRN Reason: PAIN LEVEL 1-5 Albuterol Sulfate (Ventolin Hfa Inhaler -) 2 puff IH Q6H PRN PRN Reason: SHORTNESS OF BREATH Last Admin: 10/22/17 18:52 Dose: 2 puff Alprazolam (Xanax -) 0.5 mg PO Q6H PRN PRN Reason: ANXIETY Amlodipine Besylate (Norvasc -) 5 mg PO DAILY [facility] Last Admin: 10/24/17 09:46 Dose: 5 mg Amoxicillin/Clavulanate Potassium (Augmentin - 500mg Tablet) 1 tab PO BID@0800, 1730 [facility] Stop: 10/27/17 07:59 Last Admin: 10/24/17 17:17 Dose: 1 tab Arformoterol Tartrate (Brovana (Restricted To Pulmonology/Resp) -) 1 amp NEB RBID [facility] Last Admin: 10/24/17 07:25 Dose: 1 amp Ascorbic Acid (Vitamin C -) 1,000 mg PO DAILY [facility] Last Admin: 10/24/17 09:46 Dose: 1,000 mg Atovaquone (Mepron -) 1,500 mg PO DAILY@1900 [facility] Last Admin: 10/23/17 18:36 Dose: 1,500 mg Calcium Carbonate (Calcium Carbonate -) 650 mg PO BID [facility] Last Admin: 10/24/17 11:00 Dose: 650 mg Chlorhexidine Gluconate (Hibiclens For Decolonization -) 1 applic TP HS [facility] Last Admin: 10/23/17 22:09 Dose: Not Given Docusate Sodium (Colace -) 100 mg PO BID [facility] Last Admin: 10/24/17 09:46 Dose: 100 mg Ferrous Sulfate (Feosol -) 325 mg PO DAILY [facility] Last Admin: 10/24/17 09:46 Dose: 325 mg Glipizide (Glucotrol -) 5 mg PO BIDAC [facility] Last Admin: 10/24/17 17:17 Dose: 5 mg Insulin Aspart (Novolog Vial Sliding Scale -) 1 vial SQ ACHS [facility] PRN Reason: Protocol Last Admin: 10/24/17 17:16 Dose: 6 units Insulin Detemir (Levemir Vial) 15 units SQ AM [facility] Last Admin: 10/24/17 06:33 Dose: 15 unit Metoprolol Tartrate (Lopressor -) 25 mg PO BID [facility] Last Admin: 10/24/17 09:46 Dose: 25 mg Morphine Sulfate (Msir -) 15 mg PO Q6H PRN PRN Reason: breakthrough pain 6-10 Last Admin: 10/24/17 16:13 Dose: 15 mg Morphine Sulfate (Ms Contin -) 60 mg PO TID [facility] Last Admin: 10/24/17 13:26 Dose: 60 mg Nystatin (Nystatin Oral Suspension -) 500,000 units PO Q6HPO [facility] Last Admin: 10/24/17 17:17 Dose: 500,000 units Pantoprazole Sodium (Protonix -) 40 mg PO DAILY [facility] Last Admin: 10/24/17 09:46 Dose: 40 mg Prednisone (Deltasone -) 30 mg PO DAILY [facility] Last Admin: 10/24/17 11:30 Dose: 30 mg Sertraline HCl (Zoloft -) 25 mg PO DAILY [facility] Last Admin: 10/24/17 09:46 Dose: 25 mg Sitagliptin Phosphate (Januvia -) 50 mg PO DAILY@0700 [facility] Last Admin: 10/24/17 06:35 Dose: 50 mg - Objective Vital Signs: Vital Signs Temperature 98.3 F 10/24/17 14:03 Pulse Rate 66 10/24/17 14:03 Respiratory Rate 20 10/24/17 14:03 Blood Pressure 134/69 10/24/17 14:03 O2 Sat by Pulse Oximetry (%) 94 L 10/24/17 09:00 HENT: Yes: Atraumatic Neck: Yes: Supple Cardiovascular: Yes: Regular Rate and Rhythm, Murmur (Soft SM), S1, S2 Respiratory: Yes: CTA Bilaterally Gastrointestinal: Yes: Normal Bowel Sounds, Soft, Abdomen, Obese. No: Tenderness Edema: No Labs: CBC, BMP 10/24/17 06:00 10/24/17 06:00 Problem List - Problems (1) Acute respiratory failure with hypoxia Code(s): J96.01 - ACUTE RESPIRATORY FAILURE WITH HYPOXIA (2) CKD (chronic kidney disease) Code(s): N18.9 - CHRONIC KIDNEY DISEASE, UNSPECIFIED (3) Hypercapnic respiratory failure Code(s): J96.92 - RESPIRATORY FAILURE, UNSPECIFIED WITH HYPERCAPNIA Qualifiers: Chronicity: acute Qualified Code(s): J96.02 - Acute respiratory failure with hypercapnia (4) Pneumonia Code(s): J18.9 - PNEUMONIA, UNSPECIFIED ORGANISM Qualifiers: Pneumonia type: due to unspecified organism Laterality: unspecified laterality Lung location: unspecified part of lung Qualified Code(s): J18.9 - Pneumonia, unspecified organism (5) Respiratory failure with hypoxia and hypercapnia Code(s): J96.91 - RESPIRATORY FAILURE, UNSPECIFIED WITH HYPOXIA; J96.92 - RESPIRATORY FAILURE, UNSPECIFIED WITH HYPERCAPNIA (6) Anemia Code(s): D64.9 - ANEMIA, UNSPECIFIED Qualifiers: Anemia type: iron deficiency Iron deficiency anemia type: chronic blood loss Qualified Code(s): D50.0 - Iron deficiency anemia secondary to blood loss (chronic) (7) Chronic ITP (idiopathic thrombocytopenia) Code(s): D69.3 - IMMUNE THROMBOCYTOPENIC PURPURA (8) Diabetes mellitus Code(s): E11.9 - TYPE 2 DIABETES MELLITUS WITHOUT COMPLICATIONS Qualifiers: Diabetes mellitus type: drug or chemical induced Diabetes mellitus complication status: without complication (9) HTN (hypertension) Code(s): I10 - ESSENTIAL (PRIMARY) HYPERTENSION Qualifiers: Hypertension type: essential hypertension Qualified Code(s): I10 - Essential (primary) hypertension (10) Mantle cell lymphoma Code(s): C83.10 - MANTLE CELL LYMPHOMA, UNSPECIFIED SITE (11) Osteoarthritis Code(s): M19.90 - UNSPECIFIED OSTEOARTHRITIS, UNSPECIFIED SITE Assessment/Plan 1. Acute Hypoxic and Hypercapneic Respiratory Failure, related to pneumonia 2. Acute on chronic class II NYHA classification LV failure related to diastolic LV dysfunction 3. CAD angina pectoris 4. HTN 5. Diabetes mellitus 6. Hypercholesterolemia 7. COPD 8. Acute on CKD 9. History of thrombocytopenia post splenectomy with history of ITP 10. History of Mantle cell lymphoma 11. History of degenerative joint disease 12. Morbid obesity PLAN: 1. Continue Lopressor and Norvasc 2. Continue Diuretics with close monitoring of renal function 3. Ideally ACEI or ARBS are recommended once renal function at baseline 4. Recommend pharmacologic MPI study as outpatient Further plans are to follow Abdon Salinas MD
--- NOTE | 2017-10-24 17:57 | PN ---
Progress Note (short form) - Note Progress Note: Renal follow up for CKD pt seen and examined at the bedside no complaints feels well no sob, chest pain, N/V Vital Signs Temperature 98.3 F 10/24/17 14:03 Pulse Rate 66 10/24/17 14:03 Respiratory Rate 20 10/24/17 14:03 Blood Pressure 134/69 10/24/17 14:03 O2 Sat by Pulse Oximetry (%) 94 L 10/24/17 09:00 Intake & Output 10/21/17 10/22/17 10/23/17 10/24/17 23:59 23:59 23:59 23:59 Intake Total 1230 340 500 Output Total 3100 Balance -3100 1230 340 500 Weight 112.746 kg 113.086 kg 111.901 kg NAD awake and alert RRR, NO m/R Dec Bs at lung bases obese, NT/ND + edema in LE CBC, BMP 10/24/17 06:00 10/24/17 06:00 Current Medications Acetaminophen (Tylenol -) 650 mg PO Q4H PRN PRN Reason: PAIN LEVEL 1-5 Albuterol Sulfate (Ventolin Hfa Inhaler -) 2 puff IH Q6H PRN PRN Reason: SHORTNESS OF BREATH Last Admin: 10/22/17 18:52 Dose: 2 puff Alprazolam (Xanax -) 0.5 mg PO Q6H PRN PRN Reason: ANXIETY Amlodipine Besylate (Norvasc -) 5 mg PO DAILY [facility] Last Admin: 10/24/17 09:46 Dose: 5 mg Amoxicillin/Clavulanate Potassium (Augmentin - 500mg Tablet) 1 tab PO BID@0800, 1730 [facility] Stop: 10/27/17 07:59 Last Admin: 10/24/17 17:17 Dose: 1 tab Arformoterol Tartrate (Brovana (Restricted To Pulmonology/Resp) -) 1 amp NEB RBID [facility] Last Admin: 10/24/17 07:25 Dose: 1 amp Ascorbic Acid (Vitamin C -) 1,000 mg PO DAILY [facility] Last Admin: 10/24/17 09:46 Dose: 1,000 mg Atovaquone (Mepron -) 1,500 mg PO DAILY@1900 [facility] Last Admin: 10/23/17 18:36 Dose: 1,500 mg Calcium Carbonate (Calcium Carbonate -) 650 mg PO BID [facility] Last Admin: 10/24/17 11:00 Dose: 650 mg Chlorhexidine Gluconate (Hibiclens For Decolonization -) 1 applic TP HS [facility] Last Admin: 10/23/17 22:09 Dose: Not Given Docusate Sodium (Colace -) 100 mg PO BID [facility] Last Admin: 10/24/17 09:46 Dose: 100 mg Ferrous Sulfate (Feosol -) 325 mg PO DAILY [facility] Last Admin: 10/24/17 09:46 Dose: 325 mg Glipizide (Glucotrol -) 5 mg PO BIDAC [facility] Last Admin: 10/24/17 17:17 Dose: 5 mg Insulin Aspart (Novolog Vial Sliding Scale -) 1 vial SQ ACHS [facility] PRN Reason: Protocol Last Admin: 10/24/17 17:16 Dose: 6 units Insulin Detemir (Levemir Vial) 15 units SQ AM [facility] Last Admin: 10/24/17 06:33 Dose: 15 unit Metoprolol Tartrate (Lopressor -) 25 mg PO BID [facility] Last Admin: 10/24/17 09:46 Dose: 25 mg Morphine Sulfate (Msir -) 15 mg PO Q6H PRN PRN Reason: breakthrough pain 6-10 Last Admin: 10/24/17 16:13 Dose: 15 mg Morphine Sulfate (Ms Contin -) 60 mg PO TID [facility] Last Admin: 10/24/17 13:26 Dose: 60 mg Nystatin (Nystatin Oral Suspension -) 500,000 units PO Q6HPO [facility] Last Admin: 10/24/17 17:17 Dose: 500,000 units Pantoprazole Sodium (Protonix -) 40 mg PO DAILY [facility] Last Admin: 10/24/17 09:46 Dose: 40 mg Prednisone (Deltasone -) 30 mg PO DAILY [facility] Last Admin: 10/24/17 11:30 Dose: 30 mg Sertraline HCl (Zoloft -) 25 mg PO DAILY [facility] Last Admin: 10/24/17 09:46 Dose: 25 mg Sitagliptin Phosphate (Januvia -) 50 mg PO DAILY@0700 [facility] Last Admin: 10/24/17 06:35 Dose: 50 mg 67 year old woman with PMhx of CKD, Mantle Cell Lymphoma, ITP, IDDM, Hypertension, chronic hydronephorosis who presents with SOB and cough and found to be hypoxic in setting of PNA with Cr of 2. #CKD Stage 3 #ITP #Hx of Mantle Cell Lymphoma #Sepsis/PNA #Hx of Hydronephrosis Renal function improved and stable will resume Lasix 40mg Daily tomorrow continue oral Abx as per ID Dash Padron DO
[2017-10-24] MEDS: ATOVAQUONE 750 MG/5 ML (UNIT-DOSE PACKAGING) PO SCH (18:51)
[2017-10-24] MEDS: CHLORHEXIDINE GLUCONATE 4% CLEANSER FOR DECOLONIZATION TP SCH (21:54)
[2017-10-25] MEDS: NYSTATIN 500,000 UNITS/5 ML SUSPENSION PO SCH ×3 (01:01→12:39)
[2017-10-25] MEDS ORDERED: INSULIN (LEVEMIR) 100 UNITS/ML UNITS SQ ONE (07:40)
[2017-10-25] MEDS: ARFORMOTEROL TARTRATE 15 MCG/2 ML VIAL NEB SCH (07:41)
[2017-10-25 07:43] LABS: BASO % 0.1 % (0-2.0); EOS % 0.6 % (0-4.5); HEMOGLOBIN 12.6 GM/dL (10.7-15.3); LYMPH % 11.4 % (8-40); MCH 29.3 pg (25.7-33.7); MCHC 32.2 g/dl (32.0-36.0); MONO % 9.9 % (3.8-10.2); PLATELET COUNT 698 K/MM3 (134-434); RBC 4.28 M/mm3 (3.60-5.2); RDW 19.7 % (11.6-15.6); WHITE BLOOD COUNT 15.9 K/mm3 (4.0-10.0)
[2017-10-25 08:07] LABS: ANION GAP 7 (8-16); BLOOD UREA NITROGEN 38 mg/dL (7-18); CALCIUM 9.1 mg/dL (8.5-10.1); CHLORIDE 93 mmol/L (98-107); CO2 36 mmol/L (21-32); CREATININE 1.7 mg/dL (0.55-1.02); GLUCOSE,RANDOM 85 mg/dL (74-106); MAGNESIUM 2.3 mg/dL (1.8-2.4); PHOSPHOROUS 3.9 mg/dL (2.5-4.9); POTASSIUM 4.2 mmol/L (3.5-5.1); SODIUM 136 mmol/L (136-145)
[2017-10-25] MEDS: AMOX TR/POT CLAV 500MG/125MG TABLETS (FP) PO SCH (09:00)
--- NOTE | 2017-10-25 09:32 | PN ---
Progress Note (short form) - Note Progress Note: Feels better No SOB admitted with SOB, found to have pneumonia Currently on Prednisone 30mg QD BGM fluctuating Vital Signs Period Temp Pulse Resp BP Sys/[place] Pulse Ox Last 24 Hr 98.2 F-98.3 F 52-70 18-20 134-174/49-69 96 PE; AOx3 Neck: Supple, No JVD Lungs: CTA CVS: S1S2 Abd: Benign EXt: No edema Neuro: No focal deficit CMP Sodium 136 mmol/L (136-145) 10/25/17 06:00 Potassium 4.2 mmol/L (3.5-5.1) 10/25/17 06:00 Chloride 93 mmol/L (98-107) L 10/25/17 06:00 Carbon Dioxide 36 mmol/L (21-32) H 10/25/17 06:00 Anion Gap 7 (8-16) L 10/25/17 06:00 BUN 38 mg/dL (7-18) H 10/25/17 06:00 Creatinine 1.7 mg/dL (0.55-1.02) H 10/25/17 06:00 Creat Clearance w eGFR 23.49 (>60) 10/23/17 06:20 POC Glucometer 99 UNITS (80-120) 10/25/17 06:17 Random Glucose 85 mg/dL (74-106) 10/25/17 06:00 Lactic Acid 2.3 mmol/L (0.0-2.0) H* 10/20/17 08:30 Calcium 9.1 mg/dL (8.5-10.1) 10/25/17 06:00 Phosphorus 3.9 mg/dL (2.5-4.9) 10/25/17 06:00 Magnesium 2.3 mg/dL (1.8-2.4) 10/25/17 06:00 Total Bilirubin 0.4 mg/dL (0.2-1.0) 10/23/17 06:20 AST 12 U/L (15-37) L 10/23/17 06:20 ALT 16 U/L (12-78) 10/23/17 06:20 Alkaline Phosphatase 59 U/L (45-117) 10/23/17 06:20 Creatine Kinase 36 IU/L (26-192) 10/18/17 06:40 Troponin I < 0.02 ng/ml (0.00-0.05) 10/18/17 06:40 B-Natriuretic Peptide 2869.20 pg/ml (5-125) H 10/22/17 06:00 Total Protein 6.4 g/dl (6.4-8.2) 10/23/17 06:20 Albumin 2.4 g/dl (3.4-5.0) L 10/23/17 06:20 Current Medications Generic Name Dose Route Start Last Admin Trade Name Freq PRN Reason Stop Dose Admin Acetaminophen 650 mg 10/19/17 22:19 Tylenol - PO Q4H PRN PAIN LEVEL 1-5 Albuterol Sulfate 2 puff 10/19/17 22:19 10/22/17 18:52 Ventolin Hfa Inhaler - IH 2 puff Q6H PRN Administration SHORTNESS OF BREATH Alprazolam 0.5 mg 10/24/17 15:06 10/24/17 21:59 Xanax - PO 0.5 mg Q6H PRN Administration ANXIETY Amlodipine Besylate 5 mg 10/20/17 10:00 10/24/17 09:46 Norvasc - PO 5 mg DAILY PRASHANT Administration Amoxicillin/Clavulanate Potassium 1 tab 10/24/17 08:00 10/24/17 17:17 Augmentin - 500mg Tablet PO 10/27/17 07:59 1 tab BID@0800,1730 PRASHANT Administration Arformoterol Tartrate 1 amp 10/20/17 08:00 10/25/17 07:41 Brovana (Restricted To Pulmonology/Resp) - NEB 1 amp RBID PRASHANT Administration Ascorbic Acid 1,000 mg 10/20/17 10:00 10/24/17 09:46 Vitamin C - PO 1,000 mg DAILY PRASHANT Administration Atovaquone 1,500 mg 10/20/17 19:00 10/24/17 18:51 Mepron - PO 1,500 mg DAILY@1900 PRASHANT Administration Calcium Carbonate 650 mg 10/20/17 10:00 10/24/17 21:53 Calcium Carbonate - PO 650 mg BID PRASHANT Administration Chlorhexidine Gluconate 1 applic 10/20/17 22:00 10/24/17 21:54 Hibiclens For Decolonization - TP Not Given HS [facility] Docusate Sodium 100 mg 10/20/17 23:15 10/24/17 21:53 Colace - PO 100 mg BID PRASHANT Administration Ferrous Sulfate 325 mg 10/20/17 10:00 10/24/17 09:46 Feosol - PO 325 mg DAILY PRASHANT Administration Furosemide 40 mg 10/25/17 10:00 Lasix - PO DAILY PRASHANT Glipizide 5 mg 10/20/17 07:00 10/24/17 17:17 Glucotrol - PO 5 mg BIDAC PRASHANT Administration Insulin Aspart 1 vial 10/20/17 07:00 10/24/17 21:55 Novolog Vial Sliding Scale - SQ 6 units ACHS PRASHANT Administration Protocol Insulin Detemir 15 units 10/21/17 07:00 10/24/17 06:33 Levemir Vial SQ 15 unit AM PRASHANT Administration Metoprolol Tartrate 25 mg 10/20/17 10:00 10/24/17 21:53 Lopressor - PO 25 mg BID PRASHANT Administration Morphine Sulfate 15 mg 10/19/17 22:19 10/24/17 16:13 Msir - PO 15 mg Q6H PRN Administration breakthrough pain 6-10 Morphine Sulfate 60 mg 10/20/17 06:00 10/24/17 21:54 Ms Contin - PO 60 mg TID PRASHANT Administration Nystatin 500,000 units 10/23/17 14:30 10/25/17 01:01 Nystatin Oral Suspension - PO 500,000 units Q6HPO PRASHANT Administration Pantoprazole Sodium 40 mg 10/20/17 10:00 10/24/17 09:46 Protonix - PO 40 mg DAILY PRASHANT Administration Prednisone 30 mg 10/24/17 10:30 10/24/17 11:30 Deltasone - PO 30 mg DAILY PRASHANT Administration Sertraline HCl 25 mg 10/20/17 10:00 10/24/17 09:46 Zoloft - PO 25 mg DAILY PRASHANT Administration Sitagliptin Phosphate 50 mg 10/20/17 07:00 10/24/17 06:35 Januvia - PO 50 mg DAILY@0700 [facility] Administration AP: T2DM uncontrolled due to steroids Pneumonia CKD Idiopathic thrombocytopenia Chart reviewed Events noted BGM QACHS Glipizide 5mg BID Januvia 50mg QD Novolog SS coverage Will f/u
[2017-10-25] MEDS ORDERED: FUROSEMIDE 40 MG TABLET (FP) PO SCH (10:00)
--- NOTE | 2017-10-25 10:00 | PN ---
Progress Note (short form) - Note Progress Note: Neurology History of Present Illness: 67 year old female who initially presented with sudden onset shortness of breath , reportedly with non-productive cough and nausea but no vomiting. She denied fevers, chills, lightheadedness, dizziness, chest pain or pressure, diarrhea, constipation, difficulty or pain on urination, or worsening leg swelling. She was found to be hypoxic and placed on bipap. Respiratory discomfort has improved and I was consulted for tremor. She appeared to have small amplitude tremor on UE extension and reports slightly better today. Does not have h/o heavy Etoh, does have h/o DM but persistent tremor that does not appear be 2/2 glycemic shifts. More likely benign essential tremor, mild in severity. Reports it is minimal and I advised seems more visible when she thinks about it. Less occuring when distracted. Active Medications Acetaminophen (Tylenol -) 650 mg PO Q4H PRN PRN Reason: PAIN LEVEL 1-5 Albuterol Sulfate (Ventolin Hfa Inhaler -) 2 puff IH Q6H PRN PRN Reason: SHORTNESS OF BREATH Last Admin: 10/22/17 18:52 Dose: 2 puff Alprazolam (Xanax -) 0.5 mg PO Q6H PRN PRN Reason: ANXIETY Last Admin: 10/24/17 21:59 Dose: 0.5 mg Amlodipine Besylate (Norvasc -) 5 mg PO DAILY [facility] Last Admin: 10/24/17 09:46 Dose: 5 mg Amoxicillin/Clavulanate Potassium (Augmentin - 500mg Tablet) 1 tab PO BID@0800, 1730 [facility] Stop: 10/27/17 07:59 Last Admin: 10/24/17 17:17 Dose: 1 tab Arformoterol Tartrate (Brovana (Restricted To Pulmonology/Resp) -) 1 amp NEB RBID [facility] Last Admin: 10/25/17 07:41 Dose: 1 amp Ascorbic Acid (Vitamin C -) 1,000 mg PO DAILY [facility] Last Admin: 10/24/17 09:46 Dose: 1,000 mg Atovaquone (Mepron -) 1,500 mg PO DAILY@1900 [facility] Last Admin: 10/24/17 18:51 Dose: 1,500 mg Calcium Carbonate (Calcium Carbonate -) 650 mg PO BID [facility] Last Admin: 10/24/17 21:53 Dose: 650 mg Chlorhexidine Gluconate (Hibiclens For Decolonization -) 1 applic TP HS [facility] Last Admin: 10/24/17 21:54 Dose: Not Given Docusate Sodium (Colace -) 100 mg PO BID [facility] Last Admin: 10/24/17 21:53 Dose: 100 mg Ferrous Sulfate (Feosol -) 325 mg PO DAILY [facility] Last Admin: 10/24/17 09:46 Dose: 325 mg Furosemide (Lasix -) 40 mg PO DAILY [facility] Glipizide (Glucotrol -) 5 mg PO BIDAC [facility] Last Admin: 10/24/17 17:17 Dose: 5 mg Insulin Aspart (Novolog Vial Sliding Scale -) 1 vial SQ ACHS [facility]; Protocol Last Admin: 10/24/17 21:55 Dose: 6 units Insulin Detemir (Levemir Vial) 15 units SQ AM [facility] Last Admin: 10/24/17 06:33 Dose: 15 unit Metoprolol Tartrate (Lopressor -) 25 mg PO BID [facility] Last Admin: 10/24/17 21:53 Dose: 25 mg Morphine Sulfate (Msir -) 15 mg PO Q6H PRN PRN Reason: breakthrough pain 6-10 Last Admin: 10/24/17 16:13 Dose: 15 mg Morphine Sulfate (Ms Contin -) 60 mg PO TID [facility] Last Admin: 10/24/17 21:54 Dose: 60 mg Nystatin (Nystatin Oral Suspension -) 500,000 units PO Q6HPO [facility] Last Admin: 10/25/17 01:01 Dose: 500,000 units Pantoprazole Sodium (Protonix -) 40 mg PO DAILY [facility] Last Admin: 10/24/17 09:46 Dose: 40 mg Prednisone (Deltasone -) 30 mg PO DAILY [facility] Last Admin: 10/24/17 11:30 Dose: 30 mg Sertraline HCl (Zoloft -) 25 mg PO DAILY [facility] Last Admin: 10/24/17 09:46 Dose: 25 mg Sitagliptin Phosphate (Januvia -) 50 mg PO DAILY@0700 [facility] Last Admin: 10/24/17 06:35 Dose: 50 mg Physical Examination Vital Signs Temperature 98.3 F 10/25/17 02:14 Pulse Rate 52 L 10/25/17 02:14 Respiratory Rate 20 10/25/17 02:14 Blood Pressure 174/63 10/25/17 02:14 O2 Sat by Pulse Oximetry (%) 96 10/24/17 20:44 Constitutional: Yes: No Distress, Calm, Obese Eyes: Yes: Conjunctiva Clear, EOM Intact, PERRL HENT: Yes: Atraumatic, Normocephalic Cardiovascular: Yes: Tachycardia. No: Pulse Irregular, Gallop, Murmur, Rub Respiratory: Yes: On BiPap, Rales, Rhonchi, Tachypnea. No: Regular, CTA Bilaterally, Wheezes Gastrointestinal: Yes: Normal Bowel Sounds, Soft. No: Distention, Tenderness Extremities: Yes: WNL Neuro: CN intact, sensory normal, moves all extremities equally, mild tremor on UE extension, no convulsions noted, gait deferred CBCD WBC 15.9 K/mm3 (4.0-10.0) H 10/25/17 06:00 RBC 4.28 M/mm3 (3.60-5.2) 10/25/17 06:00 Hgb 12.6 GM/dL (10.7-15.3) 10/25/17 06:00 Hct 39.0 % (32.4-45.2) 10/25/17 06:00 MCV 91.0 fl (80-96) 10/25/17 06:00 MCHC 32.2 g/dl (32.0-36.0) 10/25/17 06:00 RDW 19.7 % (11.6-15.6) H 10/25/17 06:00 Plt Count 698 K/MM3 (134-434) H 10/25/17 06:00 MPV 9.0 fl (7.5-11.1) 10/25/17 06:00 CMP Sodium 136 mmol/L (136-145) 10/25/17 06:00 Potassium 4.2 mmol/L (3.5-5.1) 10/25/17 06:00 Chloride 93 mmol/L (98-107) L 10/25/17 06:00 Carbon Dioxide 36 mmol/L (21-32) H 10/25/17 06:00 Anion Gap 7 (8-16) L 10/25/17 06:00 BUN 38 mg/dL (7-18) H 10/25/17 06:00 Creatinine 1.7 mg/dL (0.55-1.02) H 10/25/17 06:00 Creat Clearance w eGFR 23.49 (>60) 10/23/17 06:20 Calcium 9.1 mg/dL (8.5-10.1) 10/25/17 06:00 Total Bilirubin 0.4 mg/dL (0.2-1.0) 10/23/17 06:20 AST 12 U/L (15-37) L 10/23/17 06:20 ALT 16 U/L (12-78) 10/23/17 06:20 Alkaline Phosphatase 59 U/L (45-117) 10/23/17 06:20 Total Protein 6.4 g/dl (6.4-8.2) 10/23/17 06:20 Albumin 2.4 g/dl (3.4-5.0) L 10/23/17 06:20 PLan 67 year old female who initially presented with sudden onset shortness of breath , reportedly with non-productive cough and nausea but no vomiting. She denied fevers, chills, lightheadedness, dizziness, chest pain or pressure, diarrhea, constipation, difficulty or pain on urination, or worsening leg swelling. She was found to be hypoxic and placed on bipap. Respiratory discomfort has improved and I was consulted for tremor. She appears to have small amplitude tremor on UE extension. Does not have h/o heavy Etoh, does have h/o DM but persistent tremor that does not appear be 2/2 glycemic shifts. Reports being better today. More likely benign essential tremor. Will not pursue further intervention now in acute setting, recommended outpatient followup when clinically at baseline and can further assess. Patient in agreement. More apparent when she thinks about, less visible when distracted. Continue current medical mgmt. Would advise monitoring glucose and maintain euglycemic state.
[2017-10-25] MEDS: CALCIUM CARBONATE 650 MG TABLET PO SCH (10:02)
[2017-10-25] MEDS: FERROUS SO4 325 MG TABLET (FP) PO SCH (10:03)
[2017-10-25] MEDS: SERTRALINE HCL 25 MG TABLET (FP) PO SCH (10:03)
[2017-10-25] MEDS: METOPROLOL TARTRATE 25 MG TABLET (FP) PO SCH (10:03)
[2017-10-25] MEDS: ASCORBIC ACID 500 MG TABLET (FP) PO SCH (10:03)
[2017-10-25] MEDS: predniSONE 10 MG TABLET (UD) PO SCH (10:03)
[2017-10-25] MEDS: DOCUSATE SODIUM 100 MG CAPSULE (FP) PO SCH (10:03)
[2017-10-25] MEDS: sitaGLIPtin PHOSPHATE 50 MG TABLET PO SCH (10:04)
[2017-10-25] MEDS: glipiZIDE 5 MG TABLET (FP) PO SCH (10:04)
[2017-10-25] MEDS: PANTOPRAZOLE 40 MG TABLET (FP) PO SCH (10:04)
[2017-10-25] MEDS: amLODIPine BESYLATE 5 MG TABLET (FP) PO SCH (10:04)
[2017-10-25] MEDS: ALPRAZolam 0.25 MG TABLET PO PRN (10:04)
[2017-10-25] MEDS: morphine SO4 SUSTAINED ACTING 15 MG TABLET.SA PO SCH ×2 (10:04→14:24)
[2017-10-25] MEDS: INSULIN (LEVEMIR) 100 UNITS/ML UNITS SQ SCH (10:05)
[2017-10-25] MEDS: INSULIN SLIDING SCALE (NOVOLOG) 1 VIAL SQ SCH ×2 (10:05→12:00)
[2017-10-25 10:16] LABS: ANISOCYTOSIS 2+; MACROCYTOSIS 1+; PLATELET ESTIMATE INCREASED; TARGET CELLS 1+
[2017-10-25 11:43] VITALS: TEMP 98.2
[2017-10-25] MEDS ORDERED: INSULIN (NOVOLOG) ASPART 100 UNITS/ML 10ML VIAL ONE (12:33)
[2017-10-25] MEDS: morphine SULFATE IMMEDIATE RELEASE 30 MG TAB PO PRN (12:43)
--- NOTE | 2017-10-25 13:38 | DS ---
Physical Examination Vital Signs: Vital Signs Temperature 36.8 C 10/25/17 10:00 Pulse Rate 71 10/25/17 10:00 Respiratory Rate 20 10/25/17 10:00 Blood Pressure 154/42 10/25/17 10:00 O2 Sat by Pulse Oximetry (%) 96 10/24/17 20:44 Constitutional: Yes: No Distress, Calm, Obese Cardiovascular: Yes: Regular Rate and Rhythm. No: Gallop, Murmur, Rub Respiratory: Yes: Regular, CTA Bilaterally. No: Rales, Rhonchi, Wheezes Gastrointestinal: Yes: Normal Bowel Sounds, Soft. No: Distention, Tenderness Extremities: Yes: WNL Edema: No Labs: CBC, BMP 10/25/17 06:00 10/25/17 06:00 Discharge Summary Reason For Visit: SEPSIS,PNEUMONIA Current Active Problems Acute respiratory failure with hypoxia (Acute) CKD (chronic kidney disease) (Acute) Difficulty breathing (Acute) HCAP (healthcare-associated pneumonia) (Acute) History of immunocompromised state (Acute) Hypercapnic respiratory failure (Acute) Pneumonia (Acute) Pneumonia (Acute) Respiratory failure with hypoxia and hypercapnia (Acute) Hospital Course: (1) Acute respiratory failure with hypoxia Code(s): J96.01 - ACUTE RESPIRATORY FAILURE WITH HYPOXIA (2) HCAP (healthcare-associated pneumonia) Code(s): J18.9 - PNEUMONIA, UNSPECIFIED ORGANISM (3) CKD (chronic kidney disease) Code(s): N18.9 - CHRONIC KIDNEY DISEASE, UNSPECIFIED (4) Chronic ITP (idiopathic thrombocytopenia) Code(s): D69.3 - IMMUNE THROMBOCYTOPENIC PURPURA (5) Diabetes mellitus Code(s): E11.9 - TYPE 2 DIABETES MELLITUS WITHOUT COMPLICATIONS Qualifiers: Diabetes mellitus type: drug or chemical induced Diabetes mellitus complication status: without complication (6) HTN (hypertension) Code(s): I10 - ESSENTIAL (PRIMARY) HYPERTENSION Qualifiers: (7) Sepsis Code(s): A41.9 - SEPSIS, UNSPECIFIED ORGANISM (8) Tremors Ms Painting is a very pleasant 67 year old female who came in with acute respiratory failure secondary to HCAP. She was originally admitted to the ICU and started on vancomycin and zosyn. She tolerated this well and her sepsis, which was present on admission, resolved. She was also started on solumedrol and this has been successfully transitioned over to prednisone which will be tapered as an outpatient. She can finish her course with augmentin per ID. She is currently safe for discharge home, she is recommended to follow up with her PCP for psychiatry/psychology recommendations. 37 minutes spent in preparation of this discharge Condition: Good - Instructions Diet, Activity, Other Instructions: resume previous diet and activity Referrals: Subhash Mcfarlane MD [Staff Physician] - Rafael Ty MD [Staff Physician] - Joe Macdonald MD [Staff Physician] - Dash Padron MD [Staff Physician] - Disposition: HOME - Home Medications Comprehensive Discharge Medication List: Ambulatory Orders Sertraline HCl [Zoloft -] 25 mg PO DAILY 08/28/14 Alprazolam [Xanax] 0.5 mg PO Q8H PRN #0 tablet 09/10/14 Pantoprazole Sodium [Protonix -] 40 mg PO DAILY #0 tablet.ec 09/10/14 Allopurinol [Zyloprim -] 150 mg PO DAILY #60 tablet 04/07/16 Albuterol Sulfate Inhaler - [Ventolin HFA Inhaler -] 1 - 2 inh PO PRN 08/09/16 Docusate Sodium [Colace -] 100 mg PO BID #60 tab-cap 10/29/16 Sitagliptin Phosphate [Januvia] 50 mg PO DAILY 03/18/17 Acetaminophen [Tylenol .Regular Strength -] 650 mg PO PRN 05/26/17 Ascorbic Acid [Vitamin C] 1,000 mg PO DAILY 08/17/17 Ferrous Sulfate 325 mg PO DAILY 08/17/17 Calcium Carbonate - 650 mg PO BID #60 tablet 08/31/17 Morphine *Sr* [MS Contin -] 60 mg PO TID #60 tab.sa MDD 180mg 08/31/17 Morphine Sulfate 15 mg PO QID PRN #30 tablet MDD 60mg 08/31/17 Amlodipine Besylate [Norvasc -] 5 mg PO DAILY #30 tablet 09/25/17 Arformoterol Tartrate [Brovana -] 1 amp NEB RBID #60 amp 09/25/17 Budesonide/Formeterol Fumarate [SYMBICORT 160/4.5mcg -] 2 puff IH BID #1 inhaler 09/25/17 Glipizide [Glucotrol -] 5 mg PO BIDBL #60 tablet 09/25/17 Metoprolol Tartrate [Lopressor -] 25 mg PO BID #60 tablet 09/25/17 Eltrombopag Olamine [Promacta] 50 mg PO DAILY 10/18/17 Amox-Tr/K Cl [Augmentin 500-125mg Tablet -] 1 tab PO BID@0800,1730 #3 tablet Atovaquone [Mepron Oral Solution -] 1,500 mg PO DAILY@0800 #1 bottle 10/25/17 Furosemide [Lasix -] 40 mg PO DAILY #30 tablet 10/25/17 predniSONE [Deltasone -] 10 mg PO ASDIR #12 tablet 10/25/17
[2017-10-25 13:48] VITALS: BP 137/60; PULSE 69
== END 2017-10-25 17:22 | disposition home or self-care (01) | DRG 871 ==
LOC: JER 06:09 → JERBED 09:41 → JICU 10:58 → J6S 10-19 22:31 → J7W 10-20 13:18
PROVIDERS: ADMIT Internal Medicine; ATTEND Internal Medicine
PROC: 5A09557 Assistance with Respiratory Ventilation, Greater than 96 Consecutive Hours, Continuous Positive Airway Pressure (ICD-10-PCS; principal; 2017-10-18)
DX: A41.9 Sepsis, unspecified organism (principal); J18.9 Pneumonia, unspecified organism; J96.01 Acute respiratory failure with hypoxia; J96.02 Acute respiratory failure with hypercapnia; I50.33 Acute on chronic diastolic (congestive) heart failure; D69.3 Immune thrombocytopenic purpura; Z68.41 Body mass index [BMI] 40.0-44.9, adult; C83.10 Mantle cell lymphoma, unspecified site; I13.0 Hypertensive heart and chronic kidney disease with heart failure and stage 1 through stage 4 chronic kidney disease, or unspecified chronic kidney disease; E87.2 Acidosis; N17.9 Acute kidney failure, unspecified; E11.22 Type 2 diabetes mellitus with diabetic chronic kidney disease; N18.3 Chronic kidney disease, stage 3 (moderate); D64.9 Anemia, unspecified; E66.01 Morbid (severe) obesity due to excess calories; I25.119 Atherosclerotic heart disease of native coronary artery with unspecified angina pectoris; J44.9 Chronic obstructive pulmonary disease, unspecified; F41.9 Anxiety disorder, unspecified; E11.65 Type 2 diabetes mellitus with hyperglycemia
CPT/HCPCS: 36415; 36600; 71045-TC-FY; 71250-TC; 80048; 80053; 81003; 81015; 82550; 82803; 82962; 83605; 83735; 83880; 84100; 84484; 85025; 85027; 87040; 87086; 87804; 87899; 93005; 93010; 93306-TC; 93970-TC; 94010; 94640; 94660; 99285-25; G0480; J0131; J7030; J7620

== ENCOUNTER 2017-11-22 07:32 | Day surgery (SDC) | payer OTHER, MEDICARE ==
[2017-11-22 09:59] LABS: BASO % 1.5 % (0-2.0); EOS % 0.6 % (0-4.5); HEMATOCRIT 37.3 % (32.4-45.2); HEMOGLOBIN 12.2 GM/dL (10.7-15.3); LYMPH % 9.8 % (8-40); MCH 29.7 pg (25.7-33.7); MCHC 32.8 g/dl (32.0-36.0); MEAN CELL VOLUME 90.7 fl (80-96); MEAN PLT VOLUME 8.9 fl (7.5-11.1); MONO % 8.6 % (3.8-10.2); NEUT % 79.5 % (42.8-82.8); PLATELET COUNT 347 K/MM3 (134-434); RBC 4.11 M/mm3 (3.60-5.2); RDW 16.8 % (11.6-15.6); WHITE BLOOD COUNT 12.8 K/mm3 (4.0-10.0)
[2017-11-22] MEDS ORDERED: SODIUM CHLORIDE 1,000 ML IV ONE (10:00)
[2017-11-22] MEDS ORDERED: ACETAMINOPHEN 325 MG TABLET (FP) PO ONE (10:00)
[2017-11-22] MEDS ORDERED: diphenhydrAMINE HCL 25 MG CAPSULE (FP) PO ONE (10:00)
[2017-11-22 10:24] LABS: ALBUMIN 3.1 g/dl (3.4-5.0); ANION GAP 9 (8-16); BLOOD UREA NITROGEN 20 mg/dL (7-18); CALCIUM 9.7 mg/dL (8.5-10.1); CHLORIDE 96 mmol/L (98-107); CO2 35 mmol/L (21-32); GLUCOSE,RANDOM 87 mg/dL (74-106); POTASSIUM 4.2 mmol/L (3.5-5.1); SGPT/ALT 14 U/L (12-78); SODIUM 140 mmol/L (136-145)
[2017-11-22 10:27] LABS: ALK PHOS 88 U/L (45-117); BILIRUBIN,TOTAL 0.2 mg/dL (0.2-1.0); CREATININE 1.9 mg/dL (0.55-1.02); SGOT/AST 16 U/L (15-37); TOT PROT 7.3 g/dl (6.4-8.2)
[2017-11-22] MEDS ORDERED: SODIUM CHLORIDE IVPB ONE (10:30)
[2017-11-22] MEDS ORDERED: RITUXIMAB IVPB ONE (10:30)
[2017-11-22] MEDS ORDERED: FUROSEMIDE 40 MG/4 ML INJECTABLE VIAL IVPUSH ONE ×2 (11:00→13:45)
[2017-11-22 11:28] LABS: ALBUMIN 3.1 g/dl (3.4-5.0); BILIRUBIN,DIRECT < 0.2 mg/dL (0.0-0.2); BILIRUBIN,TOTAL 0.2 mg/dL (0.2-1.0); MAGNESIUM 2.1 mg/dL (1.8-2.4); SGOT/AST 15 U/L (15-37); SGPT/ALT 14 U/L (12-78); TOT PROT 7.4 g/dl (6.4-8.2)
[2017-11-22 11:29] LABS: ALK PHOS 88 U/L (45-117)
--- NOTE | 2017-11-22 12:24 | EKG ---
Test Reason : Blood Pressure : / mmHG Vent. Rate : 061 BPM Atrial Rate : 061 BPM P-R Int : 136 ms QRS Dur : 102 ms QT Int : 456 ms P-R-T Axes : 040 -19 009 degrees QTc Int : 459 ms SINUS RHYTHM WITH PREMATURE ATRIAL COMPLEXES INCOMPLETE RIGHT BUNDLE BRANCH BLOCK MINIMAL VOLTAGE CRITERIA FOR LVH, MAY BE NORMAL VARIANT BORDERLINE ECG WHEN COMPARED WITH ECG OF 18-OCT-2017 06:30, PATIENT SITTING IN CHAIR DURING EKG Confirmed by SHEKHAR CHRISTINE MD ([id number]) on 11/22/2017 12:24:27 PM Referred By: Jack VALDEZ Confirmed By:SHEKHAR CHRISTINE MD
[2017-11-22 15:57] VITALS: PULSE 62; TEMP 98.1
[2017-11-22] MEDS ORDERED: PORTA CATH FLUSH 10 ML IVPUSH ONE (16:00)
[2017-11-22 16:22] VITALS: BP 127/52
== END 2017-11-22 17:05 | disposition home or self-care (01) ==
LOC: JONCCHEMO 07:32 → J7W 10:23 → JONCCHEMO 17:05
PROVIDERS: ATTEND Internal Medicine Hematology & Oncology
DX: D69.3 Immune thrombocytopenic purpura (principal)
CPT/HCPCS: 36415; 71046-TC-FY; 80053; 80076; 83735; 85025; 93005; 93010; 96413; 96415; J7030; J9310

== ENCOUNTER 2018-02-04 08:30 | Inpatient (IN) | payer OTHER, MEDICARE ==
[2018-02-04 09:19] VITALS: BMI 38.3
[2018-02-04] MEDS ORDERED: morphine SO4 SUSTAINED ACTING 15 MG TABLET.SA PO ONE (09:54)
--- NOTE | 2018-02-04 10:15 | PDOC ---
History of Present Illness - General Chief Complaint: Blood Sugar Problem Stated Complaint: BLOOD SUGAR PROBLEM Time Seen by Provider: 02/04/18 09:39 History Source: Patient Exam Limitations: No Limitations - History of Present Illness Initial Comments: 02/04/18 10:02 67-year-old female with history of diabetes presents to ED with confusion and weakness this morning which prompted her daughter to check her glucose which read 37. When EMS arrived she was noted to be 57 and received D10. Pt arrived here alert oriented complaining of bilateral hip pain secondary to necrosis patient had no complaint of headache, visual changes, neck pain, chest pain, abdominal pain, nausea, or chills. Patient does state has had urinary frequency with mild dysuria. Patient unsure if last night she doubled her dose of her diabetic medication since her daughter states had a glucose of 250 and then when rechecked was noted to have a glucose reading a 52 and repeated shortly thereafter with a reading of 70. Timing/Duration: 4-6 hours Severity: moderate Associated Symptoms: reports: weakness Past History - Travel Traveled outside of the country in the last 30 days: No - Past Medical History Allergies/Adverse Reactions: Allergies Allergy/AdvReac Type Severity Reaction Status Date / Time ciprofloxacin HCl Allergy Intermediate Itching Verified 02/04/18 12:26 [From Cipro] levofloxacin [From Levaquin] Allergy Intermediate Rash Verified 02/04/18 12:26 atorvastatin calcium Allergy Mild muscle Verified 02/04/18 12:26 [From Lipitor] aches pregabalin [From Lyrica] Allergy Verified 02/04/18 12:26 Home Medications: Ambulatory Orders Sertraline HCl [Zoloft -] 25 mg PO DAILY 08/28/14 Alprazolam [Xanax] 0.5 mg PO Q8H PRN #0 tablet 09/10/14 Pantoprazole Sodium [Protonix -] 40 mg PO DAILY #0 tablet.ec 09/10/14 Allopurinol [Zyloprim -] 150 mg PO DAILY #60 tablet 04/07/16 Albuterol Sulfate Inhaler - [Ventolin HFA Inhaler -] 1 - 2 inh PO PRN 08/09/16 Docusate Sodium [Colace -] 100 mg PO BID #60 tab-cap 10/29/16 Sitagliptin Phosphate [Januvia] 50 mg PO DAILY 03/18/17 Acetaminophen [Tylenol .Regular Strength -] 650 mg PO PRN 05/26/17 Calcium Carbonate - 650 mg PO BID #60 tablet 08/31/17 Morphine *Sr* [MS Contin -] 60 mg PO TID #60 tab.sa MDD 180mg 08/31/17 Morphine Sulfate 15 mg PO QID PRN #30 tablet MDD 60mg 08/31/17 Amlodipine Besylate [Norvasc -] 5 mg PO DAILY #30 tablet 09/25/17 Arformoterol Tartrate [Brovana -] 1 amp NEB RBID #60 amp 09/25/17 Budesonide/Formeterol Fumarate [SYMBICORT 160/4.5mcg -] 2 puff IH BID #1 inhaler 09/25/17 Glipizide [Glucotrol -] 5 mg PO BIDBL #60 tablet 09/25/17 Metoprolol Tartrate [Lopressor -] 25 mg PO BID #60 tablet 09/25/17 Atovaquone [Mepron Oral Solution -] 1,500 mg PO DAILY@0800 #1 bottle 10/25/17 Furosemide [Lasix -] 40 mg PO DAILY #30 tablet 10/25/17 Anemia: No (ICP) Asthma: No Cancer: Yes (lymphoma) Cardiac Disorders: (SOB) CVA: No COPD: No CHF: No Dementia: No Diabetes: Yes (niddm) GI Disorders: Yes (DIVERTICULOSIS) Disorders: Yes (renal calculi) HTN: Yes Hypercholesterolemia: Yes Liver Disease: No Psychiatric Problems: Yes (ANXIETY) Seizures: No Thyroid Disease: No - Surgical History Abdominal Surgery: Yes (SPLENECTOMY) Appendectomy: No Cardiac Surgery: No Cholecystectomy: No Lung Surgery: No Neurologic Surgery: Yes (cervical laminectomy x 2) Orthopedic Surgery: Yes (Anterior and posterior cervical laminectomy with fusion ) - Immunization History Immunization Up to Date: Yes - Suicide/Smoking/Psychosocial Hx Smoking Status: No Smoking History: Never smoked Have you smoked in the past 12 months: No Number of Cigarettes Smoked Daily: 0 If you are a former smoker, when did you quit?: 2001 Information on smoking cessation initiated: No Hx Alcohol Use: No Drug/Substance Use Hx: No Substance Use Type: None Hx Substance Use Treatment: No Patient Lives Alone: No Lives with/in: spouse/SO Review of Systems - Review of Systems Able to Perform ROS?: No Constitutional: Yes: Weakness HEENTM: No: Symptoms Reported Respiratory: No: Symptoms reported Cardiac (ROS): No: Symptoms Reported ABD/GI: No: Symptoms Reported : Yes: Dysuria, Frequency Musculoskeletal: No: Symptoms Reported Integumentary: No: Symptoms Reported Neurological: No: Symptoms reported *Physical Exam - Vital Signs Last Vital Signs Temp Pulse Resp BP Pulse Ox 97.9 F 67 18 156/69 99 02/04/18 08:49 02/04/18 08:49 02/04/18 08:49 02/04/18 08:49 02/04/18 08:49 - Physical Exam General Appearance: Yes: Nourished, Appropriately Dressed. No: Apparent Distress HEENT: negative: Pale Conjunctivae Neck: positive: Supple Respiratory/Chest: positive: Lungs Clear, Normal Breath Sounds. negative: Respiratory Distress, Accessory Muscle Use Cardiovascular: positive: Regular Rhythm, Regular Rate. negative: Murmur Gastrointestinal/Abdominal: positive: Soft. negative: Tenderness Extremity: positive: Normal Capillary Refill. negative: Pedal Edema Integumentary: positive: Normal Color, Dry, Warm Neurologic: positive: Motor Strength 5/5 (ambulatory with cane). negative: Normal Mood/Affect (mildly anxious) ED Treatment Course - LABORATORY CBC & Chemistry Diagram: 02/04/18 10:45 02/04/18 10:45 - ADDITIONAL ORDERS Additional order review: Laboratory Results 02/04/18 08:52 POC Glucometer [id number] 02/04/18 08:52 POC Glucometer [id number] - RADIOLOGY Radiology Studies Ordered: Category Date Time Status CHEST X-RAY PORTABLE* [RAD] Stat Radiology 02/04/18 09:57 Ordered Medical Decision Making - Medical Decision Making 02/04/18 10:07 Patient here for hypoglycemic episode prompting her to receive D10. Patient arrives alert oriented but complaining of bilateral hip pain requesting her morphine. Patient had no acute findings on exam. Patient will have repeat PGM performed since she was able to tolerate 100% of her breakfast. Patient also ordered for urine including labs chest x-ray EKG. 02/04/18 11:39 Laboratory Tests 10/22/17 10/23/17 10/24/17 06:00 06:20 06:00 Chloride BUN 49 H Creatinine 2.4 H 2.1 H 1.7 H Troponin I 10/25/17 11/22/17 01/17/18 06:00 09:39 08:48 Chloride BUN 38 H 20 H 48 H Creatinine 1.7 H 1.9 H 2.4 H Troponin I 02/04/18 10:45 Chloride 97 L BUN 58 H Creatinine Troponin I < 0.02 02/04/18 11:39 Laboratory Tests 02/04/18 02/04/18 10:45 10:50 WBC 9.8 Hgb 11.4 Hct 35.2 RDW 18.6 H Absolute Neuts (auto) 8.7 H Neutrophils % 87.9 H D Lymphocytes % 5.8 L D VBG pH 7.34 D POC VBG pCO2 56.6 H D POC VBG pO2 33.0 D Mixed VBG HCO3 29.6 H Patient had repeat BGM which was 64 after eating breakfast. Patient was given D50. Serum glucose was drawn prior to the D50. Will repeat BGM. Patient still complaining of pain after the MS Contin. Patient ordered for 4 mg of morphine IV push 02/04/18 12:21 Laboratory Tests 02/04/18 11:40 POC Glucometer [id number] Patient ordered for another D50 amp. Patient also given lunch tray and placed in Dee chair. Patient remains very anxious per patient be given her Xanax. 02/04/18 12:43 Patient previous urine culture on file 4 2017 showed Escherichia coli. Patient will be given a dose of IV ceftriaxone 02/04/18 13:[address] Alhaji bazzi. Patient will be admitted to obs under MedSurg unit. Patient is requesting breakthrough morphine *DC/Admit/Observation/Transfer Diagnosis at time of Disposition: Hypoglycemia, Osteoarthritis - Discharge Dispostion Decision to Admit order: Yes - Referrals Referrals: Subhash Mcfarlane MD [Primary Care Provider] - - Patient Instructions - Post Discharge Activity
[2018-02-04] MEDS ORDERED: DEXTROSE 50%-WATER 25 GM/50 ML DISP.SYRIN ONE ×2 (10:22→12:08)
[2018-02-04] MEDS ORDERED: DEXTROSE 50%-WATER - 25 GM/50 ML VIAL IVPUSH ONE ×2 (10:22→11:51)
[2018-02-04 11:01] LABS: VENOUS PH 7.34 (7.32-7.42)
[2018-02-04 11:02] LABS: VENOUS PC02 56.6 mmHg (38-52)
[2018-02-04 11:08] LABS: BASO % 0.7 % (0-2.0); EOS % 0.4 % (0-4.5); HEMATOCRIT 35.2 % (32.4-45.2); HEMOGLOBIN 11.4 GM/dL (10.7-15.3); LYMPH % 5.8 % (8-40); MCH 28.3 pg (25.7-33.7); MCHC 32.4 g/dl (32.0-36.0); MEAN CELL VOLUME 87.5 fl (80-96); MEAN PLT VOLUME 9.6 fl (7.5-11.1); MONO % 5.2 % (3.8-10.2); NEUT % 87.9 % (42.8-82.8); PLATELET COUNT 184 K/MM3 (134-434); RBC 4.03 M/mm3 (3.60-5.2); RDW 18.6 % (11.6-15.6); WHITE BLOOD COUNT 9.8 K/mm3 (4.0-10.0)
[2018-02-04] MEDS ORDERED: morphine CARPU-JECT 2 MG/1 ML DISP.SYRIN IVPUSH ONE (11:13)
[2018-02-04] MEDS ORDERED: MORPHINE SULFATE 2 MG/ML VIAL ONE (11:17)
[2018-02-04 11:27] LABS: ALBUMIN 3.3 g/dl (3.4-5.0); ANION GAP 12 MMOL/L (8-16); BILIRUBIN,TOTAL 0.2 mg/dL (0.2-1.0); BLOOD UREA NITROGEN 58 mg/dL (7-18); CALCIUM 8.9 mg/dL (8.5-10.1); CHLORIDE 97 mmol/L (98-107); CO2 29 mmol/L (21-32); CREATININE 2.2 mg/dL (0.55-1.02); MAGNESIUM 2.5 mg/dL (1.8-2.4); POTASSIUM 4.6 mmol/L (3.5-5.1); SGOT/AST 19 U/L (15-37); SGPT/ALT 14 U/L (12-78); SODIUM 138 mmol/L (136-145); TOT PROT 7.3 g/dl (6.4-8.2)
[2018-02-04 11:30] LABS: ALK PHOS 64 U/L (45-117)
[2018-02-04 11:33] LABS: GLUCOSE,RANDOM 47 mg/dL (74-106); URINE APPEARANCE SLCLOUDY; URINE BILIRUBIN NEGATIVE (<2.0 mg/dL); URINE COLOR LTYELLOW; URINE GLUCOSE (UA) NEGATIVE (NEGATIVE); URINE KETONE NEGATIVE (NEGATIVE); URINE NITRITE NEGATIVE (NEGATIVE); URINE UROBILINOGEN NEGATIVE mg/dL (0.2-1.0)
[2018-02-04 11:41] LABS: URINE LEUK ESTERASE 1+ (NEGATIVE); URINE PROTEIN 2+ (NEGATIVE)
[2018-02-04 11:42] LABS: EPI CELLS RARE /HPF (FEW); URINE HYALINE CAST 1 /lpf; URINE MUCUS MODERATE
[2018-02-04] MEDS ORDERED: ALPRAZolam 0.25 MG TABLET PO ONE (12:20)
[2018-02-04] MEDS ORDERED: CEFTRIAXONE 1 GM in DEXTROSE 5%-WATER - 50 ML IVPB ONE (12:43)
[2018-02-04] MEDS ORDERED: ALPRAZolam 0.25 MG TABLET ONE (12:56)
[2018-02-04] MEDS ORDERED: morphine SULFATE IMMEDIATE RELEASE 30 MG TAB PO ONE (13:18)
[2018-02-04] MEDS ORDERED: morphine SO4 SUSTAINED ACTING 15 MG TABLET.SA ONE (13:25)
[2018-02-04] MEDS ORDERED: CEFTRIAXONE 1 GM/50 ML BAG ONE (13:25)
[2018-02-04] MEDS ORDERED: ALBUTEROL SO4 8 GM HFA INHALER IH PRN (17:30)
[2018-02-04] MEDS ORDERED: ATOVAQUONE 750 MG/5 ML (UNIT-DOSE PACKAGING) PO SCH (17:45)
[2018-02-04] MEDS: PANTOPRAZOLE 40 MG TABLET (FP) PO SCH (17:54)
[2018-02-04] MEDS: amLODIPine BESYLATE 5 MG TABLET (FP) PO SCH (17:55)
[2018-02-04] MEDS: ALLOPURINOL 100 MG TABLET (FP) PO SCH ×2 (17:57→18:46)
[2018-02-04] MEDS: FUROSEMIDE 40 MG TABLET (FP) PO SCH ×2 (17:57→18:46)
[2018-02-04] MEDS: morphine SULFATE IMMEDIATE RELEASE 30 MG TAB PO PRN (18:05)
[2018-02-04] MEDS: sitaGLIPtin PHOSPHATE 50 MG TABLET PO SCH (18:44)
[2018-02-04] MEDS: SERTRALINE HCL 50 MG TABLET (FP) PO SCH (18:44)
[2018-02-04] MEDS ORDERED: PT OWN MED DRAWER 7, Y5N ONE (19:02)
[2018-02-04] MEDS ORDERED: DEXTROSE 5%-0.45% SALINE 1,000 ML IV SCH (19:15)
[2018-02-04] MEDS: ARFORMOTEROL TARTRATE 15 MCG/2 ML VIAL NEB SCH (20:18)
[2018-02-04] MEDS: ATOVAQUONE 750 MG/5 ML (UNIT-DOSE PACKAGING) PO SCH (20:54)
[2018-02-04] MEDS: morphine SO4 SUSTAINED ACTING 30 MG TABLET.SA PO SCH (21:00)
[2018-02-04] MEDS: ALPRAZolam 0.25 MG TABLET PO PRN (22:31)
[2018-02-04] MEDS: DOCUSATE SODIUM 100 MG CAPSULE (FP) PO SCH (22:31)
[2018-02-04] MEDS: CALCIUM CARBONATE 650 MG TABLET PO SCH (22:31)
[2018-02-04] MEDS: BUDESONIDE/FORMETEROL FUMARATE 160/4.5 mcg INHALER IH SCH (22:31)
[2018-02-04] MEDS: METOPROLOL TARTRATE 25 MG TABLET (FP) PO SCH (22:31)
[2018-02-05] MEDS: morphine SULFATE IMMEDIATE RELEASE 30 MG TAB PO PRN ×3 (01:05→20:02)
[2018-02-05] MEDS: ACETAMINOPHEN 325 MG TABLET (FP) PO PRN (02:19)
[2018-02-05] MEDS: morphine SO4 SUSTAINED ACTING 30 MG TABLET.SA PO SCH ×3 (06:20→22:01)
[2018-02-05] MEDS: sitaGLIPtin PHOSPHATE 50 MG TABLET PO SCH (06:28)
[2018-02-05] MEDS ORDERED: glipiZIDE 5 MG TABLET (FP) PO SCH (07:00)
[2018-02-05] MEDS: ARFORMOTEROL TARTRATE 15 MCG/2 ML VIAL NEB SCH ×2 (07:30→20:30)
[2018-02-05] MEDS ORDERED: PT OWN MED DRAWER 7, Y5N ONE ×2 (08:21→18:45)
[2018-02-05] MEDS ORDERED: INSULIN (NOVOLOG) ASPART 100 UNITS/ML 10ML VIAL ONE (08:48)
[2018-02-05 09:00] LABS: CHLORIDE 100 mmol/L (98-107); POTASSIUM 4.7 mmol/L (3.5-5.1); SODIUM 139 mmol/L (136-145)
[2018-02-05 09:09] LABS: ANION GAP 10 MMOL/L (8-16); BLOOD UREA NITROGEN 52 mg/dL (7-18); CALCIUM 9.1 mg/dL (8.5-10.1); CO2 29 mmol/L (21-32); CREATININE 2.2 mg/dL (0.55-1.02); GLUCOSE,RANDOM 155 mg/dL (74-106)
[2018-02-05] MEDS: METOPROLOL TARTRATE 25 MG TABLET (FP) PO SCH ×2 (09:09→22:01)
[2018-02-05] MEDS: ALPRAZolam 0.25 MG TABLET PO PRN ×2 (09:09→22:06)
[2018-02-05] MEDS: PANTOPRAZOLE 40 MG TABLET (FP) PO SCH (09:09)
[2018-02-05] MEDS: DOCUSATE SODIUM 100 MG CAPSULE (FP) PO SCH ×2 (09:09→22:01)
[2018-02-05] MEDS: FUROSEMIDE 40 MG TABLET (FP) PO SCH (09:09)
[2018-02-05] MEDS: CALCIUM CARBONATE 650 MG TABLET PO SCH ×2 (09:09→22:00)
[2018-02-05] MEDS: ATOVAQUONE 750 MG/5 ML (UNIT-DOSE PACKAGING) PO SCH (09:09)
[2018-02-05] MEDS: ALLOPURINOL 100 MG TABLET (FP) PO SCH (09:10)
[2018-02-05] MEDS: amLODIPine BESYLATE 5 MG TABLET (FP) PO SCH (09:10)
[2018-02-05] MEDS: SERTRALINE HCL 50 MG TABLET (FP) PO SCH (09:10)
[2018-02-05] MEDS: BUDESONIDE/FORMETEROL FUMARATE 160/4.5 mcg INHALER IH SCH ×2 (09:40→22:08)
--- NOTE | 2018-02-05 12:43 | HP ---
Admitting History and Physical - Primary Care Physician PCP: Subhash Mcfarlane - Admission Chief Complaint: Hypoglycemia History of Present Illness: 67year-old female, with H/O HTN, T2DM, Diabetic Nephropathy CKD stage 4 base line GFR <29, Mantel Cell Lymphoma not on treatment, ITP s/p Spleenectomy multiple relapse last Hospitalization was in 10/2017 with Pneumonia, patient was doing well yesterday present with an episode of Hypoglycemia and confusion, patient daughter noticed that [atient is lethargic and confused Fs recorded 37 911 was activated FS improved to 57 after D10 infusion, on arrival AOX3 non focal, no clinical sign of focal infection normal TWBC, mildly elevated BYN/ creat from base line - Past Medical History Cardiovascular: Yes: HTN. No: AFIB Pulmonary: Yes: COPD, Other (elevated left hemidiaphragm) Gastrointestinal: Yes: Diverticulitis (osteoarthritis right hip). No: Ascites Hepatobiliary: No: Cirrhosis Renal/: Yes: Renal Calculi, UTI, Other (bladder dysfunction). No: Renal Failure Heme/Onc: Yes: Thrombocytopenia (s/p splenectomy), Other (lymphoma -Mantle cell) Psych: Yes: Anxiety, Depression Musculoskeletal: Yes: Chronic low back pain, Osteoarthritis (right hip) Rheumatology: Yes: Other (degenerative spine disease) Endocrine: Yes: Diabetes Mellitus - Past Surgical History Past Surgical History: Yes: Laminectomy (cervical laminectomy x2 (2002)), Splenectomy, Thoracotomy - Smoking History Smoking history: Never smoked Have you smoked in the past 12 months: No Aproximately how many cigarettes per day: 0 If you are a former smoker, when did you quit?: 2001 - Alcohol/Substance Use Hx Alcohol Use: No History of Substance Use: reports: None - Social History ADL: Independent 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, , 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 History of Recent Travel: No Home Medications - Allergies Allergies/Adverse Reactions: Allergies Allergy/AdvReac Type Severity Reaction Status Date / Time ciprofloxacin HCl Allergy Intermediate Itching Verified 02/04/18 12:26 [From Cipro] levofloxacin [From Levaquin] Allergy Intermediate Rash Verified 02/04/18 12:26 atorvastatin calcium Allergy Mild muscle Verified 02/04/18 12:26 [From Lipitor] aches pregabalin [From Lyrica] Allergy Verified 02/04/18 12:26 - Home Medications Home Medications: Ambulatory Orders Sertraline HCl [Zoloft -] 25 mg PO DAILY 08/28/14 Alprazolam [Xanax] 0.5 mg PO Q8H PRN #0 tablet 09/10/14 Pantoprazole Sodium [Protonix -] 40 mg PO DAILY #0 tablet.ec 09/10/14 Allopurinol [Zyloprim -] 150 mg PO DAILY #60 tablet 04/07/16 Albuterol Sulfate Inhaler - [Ventolin HFA Inhaler -] 1 - 2 inh PO PRN 08/09/16 Docusate Sodium [Colace -] 100 mg PO BID #60 tab-cap 10/29/16 Sitagliptin Phosphate [Januvia] 50 mg PO DAILY 03/18/17 Acetaminophen [Tylenol .Regular Strength -] 650 mg PO PRN 05/26/17 Calcium Carbonate - 650 mg PO BID #60 tablet 08/31/17 Morphine *Sr* [MS Contin -] 60 mg PO TID #60 tab.sa MDD 180mg 08/31/17 Morphine Sulfate 15 mg PO QID PRN #30 tablet MDD 60mg 08/31/17 Amlodipine Besylate [Norvasc -] 5 mg PO DAILY #30 tablet 09/25/17 Arformoterol Tartrate [Brovana -] 1 amp NEB RBID #60 amp 09/25/17 Budesonide/Formeterol Fumarate [SYMBICORT 160/4.5mcg -] 2 puff IH BID #1 inhaler 09/25/17 Glipizide [Glucotrol -] 5 mg PO BIDBL #60 tablet 09/25/17 Metoprolol Tartrate [Lopressor -] 25 mg PO BID #60 tablet 09/25/17 Atovaquone [Mepron Oral Solution -] 1,500 mg PO DAILY@0800 #1 bottle 10/25/17 Furosemide [Lasix -] 40 mg PO DAILY #30 tablet 10/25/17 Family Disease History - Family Disease History Family Disease History: Diabetes: Mother, Heart Disease: Mother, Other: Father ( thrombocytopenia), Daughter (hypothyroidism) Review of Systems - Review of Systems Constitutional: reports: Diaphoresis, Lethargy, Malaise Eyes: denies: Blind Spots, Blurred Vision HENT: denies: Difficult Swallowing, Ear Discharge Neck: denies: Decreased ROM, Lumps, Pain on Movement Cardiovascular: reports: Edema, Shortness of Breath. denies: Chest Pain, Palpitations Respiratory: reports: Exercise Intolerance, Orthopnea. denies: Cough, Hemoptysis Gastrointestinal: denies: Abdominal Pain, Bloating Genitourinary: denies: Burning, Discharge Musculoskeletal: reports: Back Pain Hematology/Lymphatic: reports: Easily Bruised. denies: Excessive Bleeding Psychiatric: denies: Altered Sleep Pattern, Anxiety Physical Examination Vital Signs: Vital Signs Temperature 99.4 F 02/05/18 09:00 Pulse Rate 79 02/05/18 09:00 Respiratory Rate 22 02/05/18 09:00 Blood Pressure 140/64 02/05/18 09:00 O2 Sat by Pulse Oximetry (%) 99 02/05/18 09:00 Elderly F comfortable HEENT: Mm moist mild anemia NECK: No JVD No Bruit CHEST: CTA B/L CVS; S1S2 R ABD: Obese non tender Bs + EXT: Trace yasmin afeet CONTRACT ADMINISTRATOR: AOx3 non focal Labs: CBC, BMP 02/04/18 10:45 02/05/18 07:00 Imaging - Results X-ray: Report Reviewed (No acute changes) Problem List - Problems (1) Hypoglycemia Assessment/Plan: Most likely due to Glipizide will Hold Glipizide resumed 2.5 mg BID once Fs are stable no clinical sign of Infectious etiology Code(s): E16.2 - HYPOGLYCEMIA, UNSPECIFIED (2) Uncontrolled diabetes mellitus Assessment/Plan: Needs optimization of medication cont Januvia decrese Glipizide to 2.5 mg BID on Discharge educate to monitor FS before taling meds Code(s): E11.65 - TYPE 2 DIABETES MELLITUS WITH HYPERGLYCEMIA (3) Acute on chronic renal failure Assessment/Plan: Due to Dehydration encourage PO F/U BMP Code(s): N17.9 - ACUTE KIDNEY FAILURE, UNSPECIFIED; N18.9 - CHRONIC KIDNEY DISEASE, UNSPECIFIED Qualifiers: Chronic kidney disease stage: stage 4 (severe) (4) Chronic ITP (idiopathic thrombocytopenia) Assessment/Plan: Stable omn chemotherapy will F/U with Oncology Code(s): D69.3 - IMMUNE THROMBOCYTOPENIC PURPURA (5) HTN (hypertension) Assessment/Plan: Well controlled cont all home meds Code(s): I10 - ESSENTIAL (PRIMARY) HYPERTENSION Qualifiers: Hypertension type: essential hypertension Qualified Code(s): I10 - Essential (primary) hypertension (6) Obesity (BMI 35.0-39.9 without comorbidity) Assessment/Plan: Chronic needs nutritional evaluation as out patient Code(s): E66.9 - OBESITY, UNSPECIFIED (7) COPD (chronic obstructive pulmonary disease) Assessment/Plan: Stable cont Home MDIS Code(s): J44.9 - CHRONIC OBSTRUCTIVE PULMONARY DISEASE, UNSPECIFIED
--- NOTE | 2018-02-05 13:28 | EKG ---
Test Reason : Blood Pressure : / mmHG Vent. Rate : 075 BPM Atrial Rate : 075 BPM P-R Int : 128 ms QRS Dur : 100 ms QT Int : 420 ms P-R-T Axes : 041 -27 023 degrees QTc Int : 469 ms POOR DATA QUALITY, INTERPRETATION MAY BE ADVERSELY AFFECTED NORMAL SINUS RHYTHM NONSPECIFIC ST ABNORMALITY ABNORMAL ECG WHEN COMPARED WITH ECG OF 22-NOV-2017 11:48, PREMATURE ATRIAL COMPLEXES ARE NO LONGER PRESENT Confirmed by TREVON COMER MD ([id number]) on 02/05/2018 1:28:00 PM Referred By: Confirmed By:TREVON COMER MD
[2018-02-05 22:08] VITALS: TEMP 98.8
--- NOTE | 2018-02-05 23:35 | CONSULT ---
Consult - text type - Consultation Consultation Note: 67-year-old female with history of diabetes presents to ED with confusion and weakness which prompted her daughter to check her glucose which read 37. When EMS arrived she was noted to be 57 and received D10. Pt arrived here alert oriented complaining of bilateral hip pain secondary to severe OA. She had no complaint of headache, visual changes, neck pain, chest pain, abdominal pain, nausea, or chills. Patient does state has had urinary frequency with mild dysuria. Patient unsure if last night she doubled her dose of her diabetic medication. - Past Medical History Allergies/Adverse Reactions: Allergies Allergy/AdvReac Type Severity Reaction Status Date / Time ciprofloxacin HCl Allergy Intermediate Itching Verified 02/04/18 12:26 [From Cipro] levofloxacin [From Levaquin] Allergy Intermediate Rash Verified 02/04/18 12:26 atorvastatin calcium Allergy Mild muscle Verified 02/04/18 12:26 [From Lipitor] aches pregabalin [From Lyrica] Allergy Verified 02/04/18 12:26 Home Medications: Ambulatory Orders Sertraline HCl [Zoloft -] 25 mg PO DAILY 08/28/14 Alprazolam [Xanax] 0.5 mg PO Q8H PRN #0 tablet 09/10/14 Pantoprazole Sodium [Protonix -] 40 mg PO DAILY #0 tablet.ec 09/10/14 Allopurinol [Zyloprim -] 150 mg PO DAILY #60 tablet 04/07/16 Albuterol Sulfate Inhaler - [Ventolin HFA Inhaler -] 1 - 2 inh PO PRN 08/09/16 Docusate Sodium [Colace -] 100 mg PO BID #60 tab-cap 10/29/16 Sitagliptin Phosphate [Januvia] 50 mg PO DAILY 03/18/17 Acetaminophen [Tylenol .Regular Strength -] 650 mg PO PRN 05/26/17 Calcium Carbonate - 650 mg PO BID #60 tablet 08/31/17 Morphine *Sr* [MS Contin -] 60 mg PO TID #60 tab.sa MDD 180mg 08/31/17 Morphine Sulfate 15 mg PO QID PRN #30 tablet MDD 60mg 08/31/17 Amlodipine Besylate [Norvasc -] 5 mg PO DAILY #30 tablet 09/25/17 Arformoterol Tartrate [Brovana -] 1 amp NEB RBID #60 amp 04/23/18 Budesonide/Formeterol Fumarate [SYMBICORT 160/4.5mcg -] 2 puff IH BID #1 inhaler 09/25/17 Glipizide [Glucotrol -] 5 mg PO BIDBL #60 tablet 09/25/17 Metoprolol Tartrate [Lopressor -] 25 mg PO BID #60 tablet 09/25/17 Atovaquone [Mepron Oral Solution -] 1,500 mg PO DAILY@0800 #1 bottle 10/25/17 Furosemide [Lasix -] 40 mg PO DAILY #30 tablet 10/25/17 PMH Cancer: Yes ( mantle cell lymphoma) Cardiac Disorders: (SOB) Diabetes: Yes (niddm) GI Disorders: Yes (DIVERTICULOSIS) Disorders: Yes (renal calculi) HTN: Yes Hypercholesterolemia: Yes Psychiatric Problems: Yes (ANXIETY) - Surgical History Abdominal Surgery: Yes (SPLENECTOMY) Neurologic Surgery: Yes (cervical laminectomy x 2) Orthopedic Surgery: Yes (Anterior and posterior cervical laminectomy with fusion ) - Immunization History Immunization Up to Date: Yes - Suicide/Smoking/Psychosocial Hx Smoking History: Never smoked - Vital Signs Last Vital Signs Temp Pulse Resp BP Pulse Ox 98.8 F 68 20 124/53 99 02/05/18 17:07 02/05/18 17:07 02/05/18 21:00 02/05/18 17:07 02/05/18 21:00 - Physical Exam General Appearance: Yes: Nourished, Appropriately Dressed. No: Apparent Distress Neck: positive: Supple Respiratory/Chest: positive: Lungs Clear, Normal Breath Sounds. negative: Respiratory Distress, Accessory Muscle Use Cardiovascular: positive: Regular Rhythm, Regular Rate. negative: Murmur Gastrointestinal/Abdominal: positive: Soft. negative: Tenderness Neurologic: positive: Motor Strength 5/5 (ambulatory with cane). negative: A/P 67 y/o patient with obesity, OA, mantle cell lymphoma, recurrent ITP in remission, s/p rituxan/IVIG in 09/2017, now with hypoglycemic episode. r/o occult sepsis f/u urine cx/blood cx monitor CBC will follow
[2018-02-06] MEDS: ACETAMINOPHEN 325 MG TABLET (FP) PO PRN ×2 (00:41→10:26)
[2018-02-06] MEDS: morphine SULFATE IMMEDIATE RELEASE 30 MG TAB PO PRN ×2 (02:19→10:25)
[2018-02-06] MEDS: morphine SO4 SUSTAINED ACTING 30 MG TABLET.SA PO SCH ×2 (05:51→13:16)
[2018-02-06] MEDS: ALPRAZolam 0.25 MG TABLET PO PRN ×2 (05:51→13:16)
[2018-02-06] MEDS: sitaGLIPtin PHOSPHATE 50 MG TABLET PO SCH (06:56)
[2018-02-06] MEDS: ARFORMOTEROL TARTRATE 15 MCG/2 ML VIAL NEB SCH (07:35)
[2018-02-06] MEDS: ATOVAQUONE 750 MG/5 ML (UNIT-DOSE PACKAGING) PO SCH (08:19)
[2018-02-06 08:29] LABS: BASO % 1.6 % (0-2.0); EOS % 4.7 % (0-4.5); HEMATOCRIT 31.3 % (32.4-45.2); HEMOGLOBIN 10.2 GM/dL (10.7-15.3); LYMPH % 15.8 % (8-40); MCH 28.3 pg (25.7-33.7); MCHC 32.5 g/dl (32.0-36.0); MEAN CELL VOLUME 87.1 fl (80-96); MEAN PLT VOLUME 9.2 fl (7.5-11.1); MONO % 13.8 % (3.8-10.2); NEUT % 64.1 % (42.8-82.8); PLATELET COUNT 178 K/MM3 (134-434); RBC 3.59 M/mm3 (3.60-5.2); RDW 18.9 % (11.6-15.6); WHITE BLOOD COUNT 7.6 K/mm3 (4.0-10.0)
[2018-02-06 08:42] LABS: ANION GAP 12 MMOL/L (8-16); BLOOD UREA NITROGEN 50 mg/dL (7-18); CALCIUM 9.2 mg/dL (8.5-10.1); CHLORIDE 99 mmol/L (98-107); CO2 29 mmol/L (21-32); GLUCOSE,RANDOM 166 mg/dL (74-106); POTASSIUM 4.1 mmol/L (3.5-5.1); SODIUM 140 mmol/L (136-145)
[2018-02-06] MEDS ORDERED: PT OWN MED DRAWER 7, Y5N ONE (10:22)
[2018-02-06] MEDS: ALLOPURINOL 100 MG TABLET (FP) PO SCH (10:28)
[2018-02-06] MEDS: DOCUSATE SODIUM 100 MG CAPSULE (FP) PO SCH (10:29)
[2018-02-06] MEDS: PANTOPRAZOLE 40 MG TABLET (FP) PO SCH (10:30)
[2018-02-06] MEDS: CALCIUM CARBONATE 650 MG TABLET PO SCH (10:31)
[2018-02-06] MEDS: SERTRALINE HCL 50 MG TABLET (FP) PO SCH (10:31)
[2018-02-06] MEDS: BUDESONIDE/FORMETEROL FUMARATE 160/4.5 mcg INHALER IH SCH (10:34)
[2018-02-06] MEDS: amLODIPine BESYLATE 5 MG TABLET (FP) PO SCH (10:46)
[2018-02-06] MEDS: METOPROLOL TARTRATE 25 MG TABLET (FP) PO SCH (10:47)
--- NOTE | 2018-02-06 11:21 | DS ---
Physical Examination Vital Signs: Vital Signs Temperature 37.1 C 02/05/18 17:07 Pulse Rate 68 02/05/18 17:07 Respiratory Rate 20 02/05/18 21:00 Blood Pressure 124/53 02/05/18 17:07 O2 Sat by Pulse Oximetry (%) 99 02/05/18 21:00 Constitutional: Yes: No Distress, Obese Cardiovascular: Yes: Regular Rate and Rhythm. No: Gallop, Murmur, Rub Respiratory: Yes: Regular, CTA Bilaterally. No: Rales, Rhonchi, Wheezes Gastrointestinal: Yes: Normal Bowel Sounds, Soft. No: Distention, Tenderness Extremities: Yes: WNL Edema: No Labs: CBC, BMP 02/06/18 07:00 02/06/18 07:00 Discharge Summary Reason For Visit: HYPOGLYCEMIA Current Active Problems Acute on chronic renal failure (Acute) COPD (chronic obstructive pulmonary disease) (Acute) Hypoglycemia (Acute) Osteoarthritis (Acute) Uncontrolled diabetes mellitus (Acute) Hospital Course: (1) Hypoglycemia Code(s): E16.2 - HYPOGLYCEMIA, UNSPECIFIED (2) Uncontrolled diabetes mellitus Code(s): E11.65 - TYPE 2 DIABETES MELLITUS WITH HYPERGLYCEMIA (3) Acute on chronic renal failure Code(s): N17.9 - ACUTE KIDNEY FAILURE, UNSPECIFIED; N18.9 - CHRONIC KIDNEY DISEASE, UNSPECIFIED Qualifiers: Chronic kidney disease stage: stage 4 (severe) (4) Chronic ITP (idiopathic thrombocytopenia)gy Code(s): D69.3 - IMMUNE THROMBOCYTOPENIC PURPURA (5) HTN (hypertension) Code(s): I10 - ESSENTIAL (PRIMARY) HYPERTENSION Qualifiers: Hypertension type: essential hypertension Qualified Code(s): I10 - Essential (primary) hypertension (6) Obesity (BMI 35.0-39.9 without comorbidity) Code(s): E66.9 - OBESITY, UNSPECIFIED (7) COPD (chronic obstructive pulmonary disease) Code(s): J44.9 - CHRONIC OBSTRUCTIVE PULMONARY DISEASE, UNSPECIFIED Ms Painting is a very pleasant 67 year old female who comes in with hypoglycemia. She was admitted and her glucose was replaced with IVF. Her glipizide was held while here. Her glucose normalized and she was taken off of IVF. Her glucose remained in the high 100s-low 200s on a diabetic diet and januvia. Currently she is stable for discharge. I will not restart her glipizide at this time but will defer to Dr Mcfarlane on follow up to start a lower dose (glipizide 5mg qam vs 2.5mg bid) if needed. She states she was having muscle spasms but cannot tolerate muscle relaxants as states it makes her dizzy and loopy. Will trial magnesium oxide 400mg daily. Patient is safe for discharge home. 32 minutes spent in preparation of this discharge Condition: Good - Instructions Diet, Activity, Other Instructions: resume previous diet and activity Referrals: Rafael Ty MD [Staff Physician] - Subhash Mcfarlane MD [Primary Care Provider] - 1 Week Disposition: HOME - Home Medications Comprehensive Discharge Medication List: Ambulatory Orders Sertraline HCl [Zoloft -] 25 mg PO DAILY 08/28/14 Alprazolam [Xanax] 0.5 mg PO Q8H PRN #0 tablet 09/10/14 Pantoprazole Sodium [Protonix -] 40 mg PO DAILY #0 tablet.ec 09/10/14 Allopurinol [Zyloprim -] 150 mg PO DAILY #60 tablet 04/07/16 Albuterol Sulfate Inhaler - [Ventolin HFA Inhaler -] 1 - 2 inh PO PRN 08/09/16 Docusate Sodium [Colace -] 100 mg PO BID #60 tab-cap 10/29/16 Sitagliptin Phosphate [Januvia] 50 mg PO DAILY 03/18/17 Acetaminophen [Tylenol .Regular Strength -] 650 mg PO PRN 05/26/17 Calcium Carbonate - 650 mg PO BID #60 tablet 08/31/17 Morphine *Sr* [MS Contin -] 60 mg PO TID #60 tab.sa MDD 180mg 08/31/17 Morphine Sulfate 15 mg PO QID PRN #30 tablet MDD 60mg 08/31/17 Amlodipine Besylate [Norvasc -] 5 mg PO DAILY #30 tablet 09/25/17 Arformoterol Tartrate [Brovana -] 1 amp NEB RBID #60 amp 09/25/17 Budesonide/Formeterol Fumarate [SYMBICORT 160/4.5mcg -] 2 puff IH BID #1 inhaler 09/25/17 Metoprolol Tartrate [Lopressor -] 25 mg PO BID #60 tablet 09/25/17 Atovaquone [Mepron Oral Solution -] 1,500 mg PO DAILY@0800 #1 bottle 10/25/17 Furosemide [Lasix -] 40 mg PO DAILY #30 tablet 10/25/17
[2018-02-06 14:26] VITALS: BP 126/43; PULSE 73
== END 2018-02-06 14:05 | disposition home or self-care (01) | DRG 638 ==
LOC: JER 08:30 → JERBED 13:30 → J8W 14:49
PROVIDERS: ADMIT Internal Medicine; ATTEND Internal Medicine
DX: E11.649 Type 2 diabetes mellitus with hypoglycemia without coma (principal); D69.3 Immune thrombocytopenic purpura; C83.10 Mantle cell lymphoma, unspecified site; N17.9 Acute kidney failure, unspecified; I12.9 Hypertensive chronic kidney disease with stage 1 through stage 4 chronic kidney disease, or unspecified chronic kidney disease; E11.22 Type 2 diabetes mellitus with diabetic chronic kidney disease; E66.9 Obesity, unspecified; Z68.38 Body mass index [BMI] 38.0-38.9, adult; J44.9 Chronic obstructive pulmonary disease, unspecified; E11.65 Type 2 diabetes mellitus with hyperglycemia; M19.90 Unspecified osteoarthritis, unspecified site; E11.21 Type 2 diabetes mellitus with diabetic nephropathy; N18.4 Chronic kidney disease, stage 4 (severe)
CPT/HCPCS: 36415; 71045-TC-FY; 80048; 80053; 81003; 81015; 82533; 82550; 82803; 82962; 83735; 84484; 85025; 87040; 87086; 93005; 93010; 94640; 97116-GP; 97161-GP; 99285-25

== ENCOUNTER 2018-03-13 07:43 | Day surgery (SDC) | payer OTHER, MEDICARE ==
[2018-03-13] MEDS ORDERED: ACETAMINOPHEN 325 MG TABLET (FP) PO ONE (10:00)
[2018-03-13] MEDS ORDERED: SODIUM CHLORIDE 250 ML IV ONE (10:00)
[2018-03-13] MEDS ORDERED: diphenhydrAMINE HCL 25 MG CAPSULE (FP) PO ONE (10:00)
[2018-03-13] MEDS ORDERED: RITUXIMAB IVPB ONE (10:30)
[2018-03-13] MEDS ORDERED: SODIUM CHLORIDE IVPB ONE (10:30)
[2018-03-13 10:31] LABS: BASO % 0.8 % (0-2.0); EOS % 3.1 % (0-4.5); HEMOGLOBIN 11.3 GM/dL (10.7-15.3); LYMPH % 7.5 % (8-40); MCH 27.3 pg (25.7-33.7); MCHC 31.3 g/dl (32.0-36.0); MEAN CELL VOLUME 87.2 fl (80-96); MEAN PLT VOLUME 9.2 fl (7.5-11.1); MONO % 6.9 % (3.8-10.2); NEUT % 81.7 % (42.8-82.8); PLATELET COUNT 180 K/MM3 (134-434); RBC 4.13 M/mm3 (3.60-5.2); RDW 18.3 % (11.6-15.6); WHITE BLOOD COUNT 15.9 K/mm3 (4.0-10.0)
[2018-03-13 10:50] LABS: INR 0.97 (0.83-1.09); PROTHROMBIN TIME (PATIENT) 11.4 SEC (9.7-13.0)
[2018-03-13 11:08] LABS: ALBUMIN 3.2 g/dl (3.4-5.0); BILIRUBIN,DIRECT 0.1 mg/dL (0.0-0.2); BILIRUBIN,TOTAL 0.1 mg/dL (0.2-1); MAGNESIUM 2.1 mg/dL (1.8-2.4); TOT PROT 7.5 g/dl (6.4-8.2)
[2018-03-13 11:23] LABS: ALBUMIN 3.1 g/dl (3.4-5.0); ALK PHOS 109 U/L (45-117); ANION GAP 9 MMOL/L (8-16); BILIRUBIN,TOTAL 0.2 mg/dL (0.2-1); BLOOD UREA NITROGEN 33 mg/dL (7-18); CHLORIDE 96 mmol/L (98-107); CO2 31 mmol/L (21-32); CREATININE 2.1 mg/dL (0.55-1.3); GLUCOSE,RANDOM 157 mg/dL (74-106); POTASSIUM 3.5 mmol/L (3.5-5.1); SGOT/AST 17 U/L (15-37); SGPT/ALT 16 U/L (13-61); SODIUM 136 mmol/L (136-145); TOT PROT 7.2 g/dl (6.4-8.2)
[2018-03-13 18:12] VITALS: TEMP 98.1
[2018-03-13 18:13] VITALS: BP 118/71; PULSE 64
[2018-03-15 00:12] LABS: FREE KAPPA,SERUM 43.4 mg/L (3.3-19.4)
== END 2018-03-13 16:15 | disposition home or self-care (01) ==
LOC: JONCCHEMO 07:43 → J7W 11:14 → JONCCHEMO 16:15
PROVIDERS: ATTEND Internal Medicine Hematology & Oncology
DX: Z51.11 Encounter for antineoplastic chemotherapy (principal); D69.3 Immune thrombocytopenic purpura; C83.10 Mantle cell lymphoma, unspecified site
CPT/HCPCS: 36415; 80053; 80076; 83615; 83735; 83883; 85025; 85610; 85651; 85730; 86140; 96361; 96413; 96415; J7030; J9310

== ENCOUNTER 2018-03-27 08:00 | Inpatient (IN) | payer OTHER, MEDICARE ==
[2018-03-19 17:38] VITALS: BMI 38.3
--- NOTE | 2018-03-27 08:00 | HP ---
[facility] - Chief Complaint Chief Complaint: right hip pain - Past Medical History Allergies/Adverse Reactions: Allergies Allergy/AdvReac Type Severity Reaction Status Date / Time pregabalin [From Lyrica] Allergy Severe Swelling Verified 03/19/18 17:41 ciprofloxacin HCl Allergy Intermediate Itching Verified 03/19/18 17:40 [From Cipro] levofloxacin [From Levaquin] Allergy Intermediate Rash Verified 03/19/18 17:40 atorvastatin calcium Allergy Mild muscle Verified 03/19/18 17:40 [From Lipitor] aches Cardiovascular: Yes: HTN. No: AFIB Pulmonary: Yes: COPD, Other (elevated left hemidiaphragm) Gastrointestinal: Yes: Diverticulitis (osteoarthritis right hip). No: Ascites Hepatobiliary: No: Cirrhosis Renal/: Yes: Renal Calculi, UTI, Other (bladder dysfunction). No: Renal Failure Heme/Onc: Yes: Thrombocytopenia (s/p splenectomy), Other (lymphoma -Mantle cell) Musculoskeletal: Yes: Chronic low back pain, Osteoarthritis (right hip) Rheumatology: Yes: Other (degenerative spine disease) Endocrine: Yes: Diabetes Mellitus Additional Medical History: ITP, Mantle Cell Lymphoma - Current Medications Current Medications: Home Medications Medication Instructions Recorded Sertraline HCl [Zoloft -] 50 mg PO DAILY 08/28/14 Alprazolam [Xanax] 0.5 mg PO Q8H PRN #0 tablet 09/10/14 Pantoprazole Sodium [Protonix -] 40 mg PO DAILY #0 tablet.ec 09/10/14 Allopurinol [Zyloprim -] 150 mg PO DAILY #60 tablet 04/07/16 Albuterol Sulfate Inhaler - 1 - 2 inh PO PRN 08/09/16 [Ventolin HFA Inhaler -] Docusate Sodium [Colace -] 100 mg PO BID #60 tab-cap 10/29/16 Sitagliptin Phosphate [Januvia] 50 mg PO DAILY 03/18/17 Acetaminophen [Tylenol .Regular 650 mg PO PRN 05/26/17 Strength -] Calcium Carbonate - 650 mg PO BID #60 tablet 08/31/17 Morphine *Sr* [MS Contin -] 60 mg PO TID #60 tab.sa MDD 180mg 08/31/17 Morphine Sulfate 15 mg PO QID PRN #30 tablet MDD 08/31/17 60mg Amlodipine Besylate [Norvasc -] 5 mg PO DAILY #30 tablet 09/25/17 Budesonide/Formeterol Fumarate 2 puff IH BID #1 inhaler 09/25/17 [SYMBICORT 160/4.5mcg -] Metoprolol Tartrate [Lopressor -] 25 mg PO BID #60 tablet 09/25/17 Atovaquone [Mepron Oral Solution -] 1,500 mg PO DAILY@0800 #1 bottle 10/25/17 Furosemide [Lasix -] 40 mg PO DAILY #30 tablet 10/25/17 Glyburide 4 mg PO BID 03/19/18 Rituximab [Rituxan] 0 mg IVPB Q2M 03/19/18 Satellite Physical Exam - Physical Examination General Appearance: Well Nourished, Well Developed, Alert & Oriented x3 ENT: Clear Lung: Normal air movement Heart: Regular rate & rhythm Extremities: Other (right hip- + ttp, decr rom, nvi xrays show grade 4 hip djd) Neurological: Intact, Alert, Oriented Satellite Impression/Plan - Impression/Plan Impression: right hip djd Operative Procedure: right daisha thr Date to be Performed: 03/27/18
[2018-03-27] MEDS ORDERED: CELECOXIB 200 MG CAPSULE PO ONE (10:15)
[2018-03-27] MEDS ORDERED: GABAPENTIN 300 MG CAPSULE (FP) PO ONE (10:15)
[2018-03-27] MEDS ORDERED: TRANEXAMIC ACID 1000 MG/10 ML VIAL IVPUSH ONE (10:15)
[2018-03-27] MEDS ORDERED: CEFAZOLIN 2 GM in DEXTROSE 5%-WATER - 50 ML IVPB ONE (10:15)
[2018-03-27] MEDS ORDERED: oxyCODONE HCL 10 MG SUSTAINED ACTING TABLET PO ONE (10:15)
[2018-03-27] MEDS ORDERED: DEXAMETHASONE SOD PHOSPHATE/PF 10 MG/ML SDV ONE (12:03)
[2018-03-27] MEDS ORDERED: MIDAZOLAM HCL 2 MG/2 ML SINGLE DOSE VIAL ONE ×4 (12:03→14:15)
[2018-03-27] MEDS ORDERED: LIDOCAINE 1% P/F 10 MG/ML VIAL ONE (12:04)
[2018-03-27] MEDS ORDERED: BUPIVACAINE HCL/PF (5 MG/ML) 30 ML VIAL IJ ONE (12:04)
[2018-03-27] MEDS ORDERED: ceFAZolin SODIUM 1 GM VIAL ONE ×2 (12:10→12:19)
[2018-03-27] MEDS ORDERED: VANCOMYCIN 1,000 MG VIAL (RESTRICTED TO ID ONLY) ONE (12:10)
[2018-03-27] MEDS ORDERED: TRANEXAMIC ACID 1000 MG/10 ML VIAL ONE (12:19)
[2018-03-27] MEDS ORDERED: PROPOFOL 20 ML ONE (14:00)
[2018-03-27] MEDS ORDERED: KETAMINE HCL 200 MG/20 ML VIAL ONE (14:01)
[2018-03-27] MEDS ORDERED: ONDANSETRON 4 MG/2 ML VIAL IVPUSH PRN ×2 (14:30→14:55)
[2018-03-27] MEDS ORDERED: HYDROmorphone HCL/PF 1 MG/ML AMP ONE (14:43)
[2018-03-27] MEDS ORDERED: oxyCODONE HCL 40 MG SUSTAINED ACTING TABLET PO SCH (14:45)
[2018-03-27] MEDS ORDERED: MAGNESIUM HYDROX 2400MG/30ML ORAL SUSPENSION 30 ML CUP PO PRN ×2 (14:55→16:58)
[2018-03-27] MEDS ORDERED: MAG HYDROX/AL HYDROX/SIMETH 30 ML UNIT-DOSE CUP PO PRN (14:55)
--- NOTE | 2018-03-27 14:58 | OP ---
Operative Note - Note: Operative Date: 03/27/18 (brendan) Pre-Operative Diagnosis: right hip djd Operation: right daisha thr Post-Operative Diagnosis: Same as Pre-op Surgeon: Subhash Flores Hydrate Control Tender: Rich Baldwin Anesthesiologist/GROUNDS SUPERVISOR: Alysia Palencia Anesthesia: Spinal, Local Specimens Removed: femoral head Estimated Blood Loss (mls): 200 Operative Report Dictated: Yes
[2018-03-27] MEDS ORDERED: ALBUTEROL SO4 8 GM HFA INHALER IH SCH (15:00)
[2018-03-27] MEDS ORDERED: LACTATED RINGERS SOLUTION 1,000 ML IV SCH (15:00)
[2018-03-27] MEDS ORDERED: VANCOMYCIN 1,000 MG VIAL (RESTRICTED TO ID ONLY) IVPB ONE (15:01)
[2018-03-27] MEDS ORDERED: oxyCODONE HCL 10 MG SUSTAINED ACTING TABLET ONE (15:18)
[2018-03-27] MEDS: ACETAMINOPHEN 1000 MG/100 ML VIAL (NON FORMULARY) IVPB SCH ×2 (16:52→21:36)
[2018-03-27] MEDS ORDERED: ALBUTEROL SO4 8 GM HFA INHALER IH PRN (16:56)
[2018-03-27] MEDS ORDERED: INSULIN (NOVOLOG) ASPART 100 UNITS/ML 10ML VIAL ONE ×2 (17:00→21:29)
[2018-03-27] MEDS: INSULIN SLIDING SCALE (NOVOLOG) 1 VIAL SQ SCH ×2 (17:04→21:37)
[2018-03-27] MEDS: morphine SO4 SUSTAINED ACTING 30 MG TABLET.SA PO SCH (17:05)
[2018-03-27] MEDS: CEFAZOLIN 2 GM/D5W 2 GM/50 ML ML IVPB SCH (20:02)
--- NOTE | 2018-03-27 20:02 | SPEC ---
DATE OF OPERATION: 03/27/2018 LOCATION: [facility]. PREOPERATIVE DIAGNOSIS: Degenerative joint disease right hip. POSTOPERATIVE DIAGNOSIS: Degenerative joint disease right hip. PROCEDURE PERFORMED: Right total hip replacement with robotic-assisted navigation (MAKOplasty). SURGICAL ATTENDING: Subhash Flores MD SCOWMAN: DUANE Chawla ANESTHESIA: Regional and spinal. CLOSURE: A 54 Trident II Press-Fit acetabulum, a number 8 Accolade II femoral stem, a 36 +5 mm metallic femoral head. Number 1 Vicryl for fascia, 0 and 2-0 for subcutaneous, and 3-0 Monocryl subcuticular with skin glue for skin, 4-0 undyed Vicryl for pin sites. ESTIMATED BLOOD LOSS: Less than 100 mL. COMPLICATIONS: None. CONDITION: To the recovery room in stable condition. DESCRIPTION OF PROCEDURE: The patient was taken to the operating room on March 27, 2018. Regional and spinal anesthesia was administered by the anesthesiologist. IV Kefzol and TXA were administered prophylactically prior to the case. The patient was placed in the lateral decubitus position will all prominences well-padded. The right hip area was prepped and draped in the usual sterile fashion. Using 3 small stab incisions over the iliac crest, 3 threaded pins were drilled in power fashion through the 2 tables of the crest. These pins were fastened and the navigation array for the Martín navigation system. Next, a 12 to 15-cm curved longitudinal incision over the posterolateral aspect of the greater trochanter was incised. Hemostasis was achieved with Bovie cautery. Sharp dissection was carried down to level of the fascia. The fascia was opened the entire length of the incision, spreading the fibers of the gluteus chito in the direction of origin. A Charnley retractor was placed in this layer. Care was taken not to impale the sciatic nerve. The short external rotators were detached off the insertion of the greater trochanter and peeled off the capsule. A posterior capsulotomy was then performed. A check point was malleted into the greater trochanter and a point on the inferior pole of the patella was obtained as well. These 2 points were used to assess the preoperative offset and limb lengths of the hip. The hip was then dislocated. The femoral neck was then osteotomized down to the appropriate level as directed by the navigation device. Anterior and posterior retractors were placed, exposing the acetabulum. A circumferential labral excision was performed. A check point was malleted into the acetabulum as well. Multiple sites inside the acetabulum and around the rim were utilized to register the acetabulum with the navigation device. An excellent registration of less than 0.5 mm was obtained. The hip was then reamed with the appropriate reamer down to the appropriate depth, with the appropriate orientation and version as assessed on our preoperative plan for this patient. The reamer was removed and the acetabulum was inspected to have good bleeding surfaces throughout. The real acetabular cup was then malleted down into place, with the holes in the appropriate position, until an excellent fixation was obtained. No screws were necessary. The navigation device ensured appropriate orientation and version, with the depth as predetermined. The appropriate liner was then clipped into place. Attention was directed to the femur. The proximal femur was prepared by use a box chisel, a canal finder and serial broaches until the broach achieved excellent rigidity in the proximal femur with the appropriate version being applied. A calcar planer was used to smooth off the calcar flush with the trial components. A trial reduction with the appropriate head was done, and the hip was reduced. The hip was taken through a range of motion from full extension with external rotation to marked flexion, and was stable at 90 degrees of flexion. It was stable to marked abduction and internal rotation, with a positive hang test and negative telescoping. Limb lengths were ascertained visually as well as with the navigation device to be within the targeted range for this patient. The trial component was removed. The real component was then malleted into place. The head was cold welded to the trunnion, and the hip was reduced. Range of motion, stability and limb lengths were as described in the trial component. Then the hip was pulse antibiotic irrigated. Vancomycin powder was placed in the hip joint. The capsule was closed. The fascia was then closed as well using number 1 Vicryl interrupted suture, 0 and 2-0 subcutaneous, and 3-0 Monocryl subcuticular with skin glue for skin. 4-0 undyed Vicryl was used to close the pin sites after the pins were removed. All check points were also removed. Sterile Aquacel dressing was applied. The patient was awakened from anesthesia and transferred into the supine position. Bilateral SCDs and an abduction pillow were placed. X-rays revealed excellent position of the components. The patient was transferred to the recovery room in stable condition, with no complications. Estimated blood loss was less than 100 mL. Eric [id number]
[2018-03-27] MEDS: METOPROLOL TARTRATE 25 MG TABLET (FP) PO SCH (21:36)
[2018-03-27] MEDS: SENNOSIDES/DOCUSATE COMBO (SENNA PLUS) TABLET (UD) PO SCH (21:36)
[2018-03-27] MEDS: BUDESONIDE/FORMETEROL FUMARATE 160/4.5 mcg INHALER IH SCH (21:38)
[2018-03-27] MEDS: oxyCODONE HCL 5 MG TABLET PO PRN (21:42)
[2018-03-27] MEDS: ALPRAZolam 0.25 MG TABLET PO PRN (21:43)
[2018-03-27] MEDS ORDERED: GABAPENTIN 300 MG CAPSULE (FP) PO SCH (22:00)
[2018-03-28] MEDS: morphine SO4 SUSTAINED ACTING 30 MG TABLET.SA PO SCH ×4 (00:22→21:59)
[2018-03-28] MEDS: CEFAZOLIN 2 GM/D5W 2 GM/50 ML ML IVPB SCH (03:39)
[2018-03-28] MEDS: ACETAMINOPHEN 1000 MG/100 ML VIAL (NON FORMULARY) IVPB SCH ×2 (03:39→09:09)
[2018-03-28] MEDS ORDERED: sitaGLIPtin PHOSPHATE 50 MG TABLET PO SCH (07:00)
[2018-03-28] MEDS ORDERED: ASPIRIN 325 MG TABLET PO SCH (08:00)
[2018-03-28 08:58] LABS: HEMATOCRIT 30.8 % (32.4-45.2); HEMOGLOBIN 9.9 GM/dl (10.7-15.3); MCH 29.2 pg (25.7-33.7); MCHC 32.3 g/dl (32.0-36.0); MEAN CELL VOLUME 90.4 fl (80-96); MEAN PLT VOLUME 9.8 fl (7.5-11.1); PLATELET COUNT 246 K/MM3 (134-434); WHITE BLOOD COUNT 18.6 K/mm3 (4.0-10.8)
[2018-03-28] MEDS: FUROSEMIDE 40 MG TABLET (FP) PO SCH (09:12)
[2018-03-28] MEDS: SENNOSIDES/DOCUSATE COMBO (SENNA PLUS) TABLET (UD) PO SCH ×2 (09:12→22:05)
[2018-03-28] MEDS: ALLOPURINOL 100 MG TABLET (FP) PO SCH (09:13)
[2018-03-28] MEDS: oxyCODONE HCL 5 MG TABLET PO PRN ×3 (09:14→19:40)
[2018-03-28] MEDS: MULTIVITAMINS (DAILY MVI) TABLET (FP) PO SCH (09:15)
[2018-03-28] MEDS: PANTOPRAZOLE 40 MG TABLET (FP) PO SCH (09:16)
[2018-03-28] MEDS: SERTRALINE HCL 50 MG TABLET (FP) PO SCH (09:20)
[2018-03-28] MEDS: METOPROLOL TARTRATE 25 MG TABLET (FP) PO SCH ×2 (09:20→22:02)
[2018-03-28] MEDS: sitaGLIPtin PHOSPHATE 50 MG TABLET PO SCH (09:20)
[2018-03-28] MEDS: amLODIPine BESYLATE 5 MG TABLET (FP) PO SCH (09:20)
[2018-03-28] MEDS: ATOVAQUONE 750 MG/5 ML (UNIT-DOSE PACKAGING) PO SCH (09:25)
[2018-03-28] MEDS ORDERED: glyBURIDE 2.5 MG TABLET (FP) PO SCH (10:00)
--- NOTE | 2018-03-28 10:26 | PN ---
Progress Note (short form) - Note Progress Note: Ortho Pt seen and examined s/p right daisha thr pod #1 Selected Entries 03/28/18 05:00 Temperature 98.0 F Pulse Rate 60 Respiratory 19 Rate Blood Pressure 133/36 L Laboratory Tests 03/28/18 07:53 WBC 18.6 H Hgb 9.9 L Hct 30.8 L D Plt Count 246 dressing c/d/i, calf soft, nt nvi a/p PT hip precautions dvt ppx pain control d/c planning to snf
--- NOTE | 2018-03-28 11:51 | PN ---
Progress Note (short form) - Note Progress Note: ANESTHESIA POSTOP 67 yo female POD#1 s/p R EMMA Patient participating in PT. Pain adequately controlled. Tolerating PO VSS, Afebrile Encouraged ambulation and IS. No anesthetic complications
[2018-03-28] MEDS: BUDESONIDE/FORMETEROL FUMARATE 160/4.5 mcg INHALER IH SCH ×2 (14:20→22:11)
[2018-03-28] MEDS ORDERED: GLIMEPIRIDE 4 MG TABLET (FP) PO SCH (16:15)
[2018-03-28] MEDS: INSULIN SLIDING SCALE (NOVOLOG) 1 VIAL SQ SCH ×2 (18:44→22:14)
[2018-03-28] MEDS: CALCIUM (OYSTER SHELL) 500 MG TABLET (FP) PO SCH ×2 (18:45→22:00)
[2018-03-28] MEDS ORDERED: PT OWN MED DRAWER 7, Y5N ONE (21:22)
[2018-03-28] MEDS: ENOXAPARIN NA (PORCINE) 30 MG/0.3 ML DISP.SYRIN SQ SCH (22:00)
[2018-03-28] MEDS: ALPRAZolam 0.25 MG TABLET PO PRN (22:35)
[2018-03-29] MEDS: oxyCODONE HCL 5 MG TABLET PO PRN ×4 (00:57→18:13)
[2018-03-29] MEDS: morphine SO4 SUSTAINED ACTING 30 MG TABLET.SA PO SCH ×3 (06:39→21:39)
[2018-03-29] MEDS: INSULIN SLIDING SCALE (NOVOLOG) 1 VIAL SQ SCH ×4 (07:04→21:36)
[2018-03-29] MEDS: GLIMEPIRIDE 2 MG TABLET (FP) PO SCH (07:41)
[2018-03-29] MEDS: sitaGLIPtin PHOSPHATE 50 MG TABLET PO SCH (07:41)
[2018-03-29] MEDS: ATOVAQUONE 750 MG/5 ML (UNIT-DOSE PACKAGING) PO SCH (08:19)
[2018-03-29 08:51] LABS: HEMATOCRIT 31.2 % (32.4-45.2); HEMOGLOBIN 10.3 GM/dl (10.7-15.3); MCH 29.5 pg (25.7-33.7); MCHC 32.9 g/dl (32.0-36.0); MEAN CELL VOLUME 89.8 fl (80-96); MEAN PLT VOLUME 9.8 fl (7.5-11.1); PLATELET COUNT 218 K/MM3 (134-434); RBC 3.48 M/mm3 (3.60-5.2); RDW 17.5 % (11.6-15.6); WHITE BLOOD COUNT 16.9 K/mm3 (4.0-10.8)
--- NOTE | 2018-03-29 08:57 | PN ---
Progress Note (short form) - Note Progress Note: Ortho Pt seen and examined s/p right daisha thr pod #2 Selected Entries 03/29/18 06:00 Temperature 98.9 F Pulse Rate 76 Respiratory 20 Rate Blood Pressure 140/42 L Laboratory Tests 03/29/18 07:55 WBC 16.9 H Hgb 10.3 L Hct 31.2 L Plt Count 218 dressing c/d/i, calf soft, nt nvi a/p PT hip precautions dvt ppx pain control d/c planning to snf
[2018-03-29] MEDS: KETOROLAC TROMETHAMINE 30 MG/1 ML VIAL IVPUSH SCH ×3 (08:58→22:36)
[2018-03-29] MEDS: ENOXAPARIN NA (PORCINE) 30 MG/0.3 ML DISP.SYRIN SQ SCH ×2 (09:07→21:39)
[2018-03-29] MEDS: FUROSEMIDE 40 MG TABLET (FP) PO SCH (09:08)
[2018-03-29] MEDS: ALLOPURINOL 100 MG TABLET (FP) PO SCH (09:08)
[2018-03-29] MEDS: CALCIUM (OYSTER SHELL) 500 MG TABLET (FP) PO SCH ×2 (09:08→21:39)
[2018-03-29] MEDS: SENNOSIDES/DOCUSATE COMBO (SENNA PLUS) TABLET (UD) PO SCH ×2 (09:08→21:39)
[2018-03-29] MEDS: SERTRALINE HCL 50 MG TABLET (FP) PO SCH (09:08)
[2018-03-29] MEDS: PANTOPRAZOLE 40 MG TABLET (FP) PO SCH (09:08)
[2018-03-29] MEDS: MULTIVITAMINS (DAILY MVI) TABLET (FP) PO SCH (09:08)
[2018-03-29] MEDS: amLODIPine BESYLATE 5 MG TABLET (FP) PO SCH (09:08)
[2018-03-29] MEDS: BUDESONIDE/FORMETEROL FUMARATE 160/4.5 mcg INHALER IH SCH ×2 (09:33→21:42)
[2018-03-29] MEDS ORDERED: INSULIN (NOVOLOG) ASPART 100 UNITS/ML 10ML VIAL ONE (11:54)
[2018-03-29] MEDS: METOPROLOL TARTRATE 25 MG TABLET (FP) PO SCH ×2 (15:12→21:38)
[2018-03-29] MEDS: ALPRAZolam 0.25 MG TABLET PO PRN (22:36)
[2018-03-30] MEDS: KETOROLAC TROMETHAMINE 30 MG/1 ML VIAL IVPUSH SCH (03:01)
[2018-03-30] MEDS: oxyCODONE HCL 5 MG TABLET PO PRN ×2 (05:34→10:11)
[2018-03-30] MEDS: morphine SO4 SUSTAINED ACTING 30 MG TABLET.SA PO SCH (06:38)
[2018-03-30] MEDS: INSULIN SLIDING SCALE (NOVOLOG) 1 VIAL SQ SCH (06:40)
[2018-03-30 06:42] VITALS: TEMP 98.4
[2018-03-30] MEDS: GLIMEPIRIDE 2 MG TABLET (FP) PO SCH (07:43)
[2018-03-30] MEDS: sitaGLIPtin PHOSPHATE 50 MG TABLET PO SCH (07:44)
[2018-03-30] MEDS: ATOVAQUONE 750 MG/5 ML (UNIT-DOSE PACKAGING) PO SCH (08:07)
[2018-03-30 08:46] LABS: HEMATOCRIT 28.4 % (32.4-45.2); HEMOGLOBIN 9.5 GM/dl (10.7-15.3); MCH 30.6 pg (25.7-33.7); MCHC 33.5 g/dl (32.0-36.0); MEAN CELL VOLUME 91.3 fl (80-96); MEAN PLT VOLUME 10.1 fl (7.5-11.1); PLATELET COUNT 197 K/MM3 (134-434); RBC 3.11 M/mm3 (3.60-5.2); RDW 17.1 % (11.6-15.6); WHITE BLOOD COUNT 23.8 K/mm3 (4.0-10.8)
--- NOTE | 2018-03-30 09:03 | PN ---
Progress Note (short form) - Note Progress Note: Ortho Pt seen and examined s/p right daisha thr pod #3 Selected Entries 03/27/18 03/30/18 15:05 06:00 Temperature 98.4 F Pulse Rate 79 Respiratory 14 18 Rate Respiratory Non-Labored Effort Blood Pressure 111/39 L Laboratory Tests 03/30/18 08:15 WBC 23.8 H Hgb 9.5 L Hct 28.4 L Plt Count 197 dressing c/d/i, calf soft, nt nvi a/p PT hip precautions dvt ppx pain control d/c planning to snf
--- NOTE | 2018-03-30 09:04 | DS ---
Physical Examination Vital Signs: Vital Signs Temperature 98.4 F 03/30/18 06:00 Pulse Rate 74 03/30/18 07:42 Respiratory Rate 18 03/30/18 07:46 Blood Pressure 108/33 L 03/30/18 07:42 O2 Sat by Pulse Oximetry (%) 98 03/30/18 07:46 Labs: CBC, BMP 03/30/18 08:15 Discharge Summary Reason For Visit: OSTEOARTHRITIS Procedures: Principal: right thr Hospital Course: admitted for elective right daisha thr, uneventful post-op, stable for d/c Condition: Good - Instructions Diet, Activity, Other Instructions: Post-op Instructions-Total Hip Replacement Call the office for a follow-up appointment in 1 week - [phone] Lovenox 430 mg SQ twice daily. Apply Graduated Compression Stockings (TEDs) to both lower extremities- remove daily for hygiene ONLY Apply Sequential Compression Device (SCDs) to both Lower extremities remove for PT and hygiene ONLY Apply cold packs to affected area for 15 minutes every 2 hours. Physical Therapist will come to your home for the first 5 days. You will be set up with outpatient PT at your first post-operative visit. Patient may ambulate as tolerated-encourage self care (at least every 2-3 hours while awake) with walker or cane Maintain Aquacel (waterproof) dressing to operative wound (will be removed by surgeon at first office visit) Shower with Aquacel dressing in place-if Aquacel integrity compromised, remove and apply dry sterile dressing and notify Orthopedist. DO NOT SHOWER unless Orthopedists approves without Aquacel dressing CONTACT THE OFFICE FOR ANY CHANGE IN YOUR CONDITION (for example-fever greater than 102 degrees, excessive bleeding from operative site, purulent drainage, severe swelling or pain) GO TO THE EMERGENCY ROOM IF THERE IS A MEDICAL EMERGENCY Hip Precautions: * Keep a rolled towel under affected heel while in bed or chair (to keep knee in extension) * Dependent upon approach: * Posterior - do not cross legs; do not sit on low chairs or toilets. * If you have any questions, please do not hesitate to call the office - . Referrals: Subhash Flores MD [Staff Physician] - Disposition: VNS/HOME HEALTH CARE - Home Medications Comprehensive Discharge Medication List: Ambulatory Orders Sertraline HCl [Zoloft -] 50 mg PO DAILY 08/28/14 Alprazolam [Xanax] 0.5 mg PO Q8H PRN #0 tablet 09/10/14 Pantoprazole Sodium [Protonix -] 40 mg PO DAILY #0 tablet.ec 09/10/14 Allopurinol [Zyloprim -] 150 mg PO DAILY #60 tablet 04/07/16 Albuterol Sulfate Inhaler - [Ventolin HFA Inhaler -] 1 - 2 inh PO PRN 08/09/16 Docusate Sodium [Colace -] 100 mg PO BID #60 tab-cap 10/29/16 Sitagliptin Phosphate [Januvia] 50 mg PO DAILY 03/18/17 Acetaminophen [Tylenol .Regular Strength -] 650 mg PO PRN 05/26/17 Calcium Carbonate - 650 mg PO BID #60 tablet 08/31/17 Morphine *Sr* [MS Contin -] 60 mg PO TID #60 tab.sa MDD 180mg 08/31/17 Morphine Sulfate 15 mg PO QID PRN #30 tablet MDD 60mg 08/31/17 Amlodipine Besylate [Norvasc -] 5 mg PO DAILY #30 tablet 09/25/17 Budesonide/Formeterol Fumarate [SYMBICORT 160/4.5mcg -] 2 puff IH BID #1 inhaler 09/25/17 Metoprolol Tartrate [Lopressor -] 25 mg PO BID #60 tablet 09/25/17 Atovaquone [Mepron Oral Solution -] 1,500 mg PO DAILY@0800 #1 bottle 10/25/17 Furosemide [Lasix -] 40 mg PO DAILY #30 tablet 10/25/17 Glyburide 4 mg PO DAILY 03/19/18 Rituximab [Rituxan] 0 mg IVPB Q2M 03/19/18
[2018-03-30] MEDS ORDERED: PT OWN MED DRAWER 7, Y5N ONE (09:39)
[2018-03-30] MEDS: PANTOPRAZOLE 40 MG TABLET (FP) PO SCH (10:02)
[2018-03-30] MEDS: SENNOSIDES/DOCUSATE COMBO (SENNA PLUS) TABLET (UD) PO SCH (10:02)
[2018-03-30] MEDS: SERTRALINE HCL 50 MG TABLET (FP) PO SCH (10:02)
[2018-03-30] MEDS: ALLOPURINOL 100 MG TABLET (FP) PO SCH (10:02)
[2018-03-30] MEDS: CALCIUM (OYSTER SHELL) 500 MG TABLET (FP) PO SCH (10:02)
[2018-03-30] MEDS: BUDESONIDE/FORMETEROL FUMARATE 160/4.5 mcg INHALER IH SCH (10:03)
[2018-03-30] MEDS: METOPROLOL TARTRATE 25 MG TABLET (FP) PO SCH (10:03)
[2018-03-30] MEDS: ENOXAPARIN NA (PORCINE) 30 MG/0.3 ML DISP.SYRIN SQ SCH (10:03)
[2018-03-30] MEDS: FUROSEMIDE 40 MG TABLET (FP) PO SCH (10:03)
[2018-03-30] MEDS: MULTIVITAMINS (DAILY MVI) TABLET (FP) PO SCH (10:03)
[2018-03-30] MEDS: amLODIPine BESYLATE 5 MG TABLET (FP) PO SCH (10:03)
[2018-03-30 10:15] VITALS: BP 140/48; PULSE 88
--- NOTE | 2018-04-02 16:59 | PATH ---
Surgical Pathology Report Patient Name: PATTY PORTILLO Med. Rec. #: [id number] /Age/Gender: 1950 (Age: 67) / F Account: [id number] [facility] Taken: 03/27/2018 Received: 03/28/2018 Reported: 04/02/2018 Physicians: Subhash Flores M.D. Specimen(s) Received RIGHT FEMORAL HEAD Clinical History Osteoarthritis right hip Final Diagnosis BONE, FEMORAL HEAD, RIGHT, TOTAL HIP REPLACEMENT: BONE WITH DEGENERATIVE JOINT DISEASE. Electronically Signed Paula Robles M.D. Gross Description Received in formalin, labeled "right femoral head," is a 4.7 x 4.7 x 4.5 cm. femoral head with a 0.5 cm in length portion of femoral neck attached. The margin of resection is smooth. There is a 5 cm in greatest dimension area of eburnation present. The remaining articular surface is mccrary-yellow and focally granular. The underlying trabecular bone is yellow and hard. A architectural representative section is submitted in one cassette, following decalcification. /03/29/2018 saudi03/29/2018
== END 2018-03-30 11:55 | DRG 470 ==
LOC: FM/S 09:59
PROVIDERS: ADMIT Orthopaedic Surgery; ATTEND Orthopaedic Surgery
PROC: 8E0W0CZ Robotic Assisted Procedure of Trunk Region, Open Approach (ICD-10-PCS; 2018-03-27)
PROC: 0SR90JA Replacement of Right Hip Joint with Synthetic Substitute, Uncemented, Open Approach (ICD-10-PCS; principal; 2018-03-27 13:02)
DX: M16.11 Unilateral primary osteoarthritis, right hip (principal); D69.3 Immune thrombocytopenic purpura; I10 Essential (primary) hypertension; J44.9 Chronic obstructive pulmonary disease, unspecified; E11.9 Type 2 diabetes mellitus without complications
CPT/HCPCS: 36415; 73502-TC-RT; 82962; 85027; 85032; 88305-TC; 88311-TC; 94760; 97116-GP; 97162-GP; J0131

== ENCOUNTER 2018-03-31 21:07 | Inpatient (IN) | payer OTHER, MEDICARE ==
[2018-03-31] MEDS ORDERED: morphine CARPU-JECT 4 MG/1 ML DISP.SYRIN IVPUSH ONE (22:09)
[2018-03-31] MEDS ORDERED: morphine SULFATE 4 MG/ML VIAL ONE (22:12)
[2018-03-31 22:33] LABS: URINE APPEARANCE CLEAR; URINE BILIRUBIN NEGATIVE (<2.0 mg/dL); URINE COLOR STRAW; URINE GLUCOSE (UA) NEGATIVE (NEGATIVE); URINE KETONE NEGATIVE (NEGATIVE); URINE LEUK ESTERASE TRACE (NEGATIVE); URINE NITRITE NEGATIVE (NEGATIVE); URINE PROTEIN NEGATIVE (NEGATIVE); URINE UROBILINOGEN NEGATIVE mg/dL (0.2-1.0)
[2018-03-31 22:35] LABS: EPI CELLS RARE /HPF (FEW)
[2018-03-31 22:40] LABS: INR 1.06 (0.83-1.09); PROTHROMBIN TIME (PATIENT) 12.5 SEC (9.7-13.0)
[2018-03-31 22:43] LABS: ACTIVATED PTT 27.4 SECONDS (25.2-36.5)
[2018-03-31 22:44] LABS: ALBUMIN 2.8 g/dl (3.4-5.0); ALK PHOS 114 U/L (45-117); ANION GAP 16 MMOL/L (8-16); BILIRUBIN,TOTAL 0.5 mg/dL (0.2-1); BLOOD UREA NITROGEN 50 mg/dL (7-18); CALCIUM 8.7 mg/dL (8.5-10.1); CHLORIDE 88 mmol/L (98-107); CO2 26 mmol/L (21-32); CREATININE 2.8 mg/dL (0.55-1.3); GLUCOSE,RANDOM 188 mg/dL (74-106); MAGNESIUM 2.2 mg/dL (1.8-2.4); PHOSPHOROUS 2.5 mg/dL (2.5-4.9); POTASSIUM 4.2 mmol/L (3.5-5.1); SGOT/AST 36 U/L (15-37); SGPT/ALT 8 U/L (13-61); SODIUM 130 mmol/L (136-145); TOT PROT 6.8 g/dl (6.4-8.2)
[2018-03-31] MEDS ORDERED: HYDROmorphone HCL CARPU-JECT 2 MG/1 ML DISP.SYRIN IVPUSH ONE (22:49)
[2018-03-31] MEDS ORDERED: HYDROmorphone HCl 2 MG/ML VIAL ONE (22:54)
[2018-03-31 22:58] LABS: BASO % 0.7 % (0-2.0); EOS % 0.5 % (0-4.5); HEMATOCRIT 31.5 % (32.4-45.2); HEMOGLOBIN 9.7 GM/dL (10.7-15.3); LYMPH % 5.7 % (8-40); MCHC 30.9 g/dl (32.0-36.0); MEAN CELL VOLUME 87.3 fl (80-96); MEAN PLT VOLUME 10.2 fl (7.5-11.1); MONO % 6.7 % (3.8-10.2); NEUT % 86.4 % (42.8-82.8); PLATELET COUNT 281 K/MM3 (134-434); RBC 3.61 M/mm3 (3.60-5.2); RDW 17.5 % (11.6-15.6)
--- NOTE | 2018-03-31 23:05 | PDOC ---
Attending Attestation - Resident Resident Name: Tram Torres - ED Attending Attestation I have performed the following: I have examined & evaluated the patient, The case was reviewed & discussed with the resident, I agree w/resident's findings & plan, Exceptions are as noted - HPI HPI: 03/31/18 23:19 Ms Painting is a 67 yo F who presents to the ER with a complaint of chest pain She has a h/o ITP s/p splenectomy, Lymphoma (in remission), CKD, DM, HTN, R hip replacement 4 days ago BIBA for chest pain and R hip pain. Pt says she was at physical therapy around 4pm today when she had sudden onset chest pressure that radiated to her L arm. Pain has been intermittent but now feels constant. - Physicial Exam PE: 03/31/18 23:22 GENERAL: The patient is in no acute distress. HEAD: Normal with no signs of trauma. EYES: PERRLA, EOMI, sclera anicteric, conjunctiva clear. ENT: Ears normal, nares patent, oropharynx clear without exudates. Moist mucous membranes. NECK: Normal range of motion, supple without lymphadenopathy, JVD, or masses. LUNGS: Breath sounds equal, clear to auscultation bilaterally. No wheezes, and no crackles. HEART:Regular rate and rhythm, normal S1 and S2 without murmur, rub or gallop. ABDOMEN: Soft, nontender, normoactive bowel sounds. No guarding, no rebound. No masses palpable. EXTREMITIES: Normal range of motion, no edema. No clubbing or cyanosis. No erythema, or tenderness. NEUROLOGICAL: Cranial nerves II through XII grossly intact. Normal speech. No focal neurological deficits. MUSCULOSKELETAL: Back non-tender to palpation, no CVA tenderness SKIN: Warm, Dry, normal turgor, no rashes or lesions noted. - Medical Decision Making 03/31/18 23:22 EKG: Normal sinus rhythm, rate of 87 bpm, axis is normal, intervals are abnormal-WA 124 MS, QRS 92 MS, QTC 507 MS, J-point elevation seen in lead I (similar to prior EKG), no other ST elevations or depressions. T wave inversion in lead III, artifact noted in lead V6 03/31/18 23:24 Laboratory Tests 03/31/18 03/31/18 03/31/18 21:59 21:59 21:59 WBC Hgb Hct Plt Count Neutrophils % INR 1.06 Sodium 130 L Potassium 4.2 Chloride 88 L BUN 50 H Creatinine 2.8 H Random Glucose 188 H Creatine Kinase 429 H Creatine Kinase Index 0.3 CK-MB (CK-2) 1.4 Troponin I < 0.02 Urine Blood Urine Nitrite Ur Leukocyte Esterase 03/31/18 03/31/18 22:24 22:47 WBC 20.0 H Hgb 9.7 L Hct 31.5 L Plt Count 281 D Neutrophils % 86.4 H INR Sodium Potassium Chloride BUN Creatinine Random Glucose Creatine Kinase Creatine Kinase Index CK-MB (CK-2) Troponin I Urine Blood 1+ H Urine Nitrite Negative Ur Leukocyte Esterase Trace DD: ACS, PE, Pleural Effusion, Pneumothorax Will plan to admit Consider Heparin given we can not rule out PE tonight (will not do lovenox given renal insufficiency) Clinical Impression: chest pain, initial presentation 03/31/18 23:27
--- NOTE | 2018-03-31 23:08 | PDOC ---
History of Present Illness - General Chief Complaint: Chest Pain Stated Complaint: CHEST PAIN Time Seen by Provider: 03/31/18 21:13 History Source: Patient Exam Limitations: No Limitations - History of Present Illness Initial Comments: 03/31/18 22:58 Pt is a 67yo f with PMH of ITP s/p splenectomy, Lymphoma (in remission), CKD, DM , HTN, R hip replacement 4 days ago BIBA for chest pain and R hip pain. Pt says she was at physical therapy around 4pm today when she had sudden onset chest pressure that radiated to her L arm. Pain has been intermittent but now feels constant. She has not had chest pain like this before. She is also complaining of R hip pain which has been constant since the surgery but alleviated with morphine 60mg which she takes every 8 hours. She admits to shortness of breath and nausea in the ambulance. Denies abdominal pain, vomiting, diarrhea, urinary symptoms, fevers, cough, headaches, changes in vision. She states she was on blood thinners in the hospital, but has not been discharged with any. PMD: Denys Ortho: Sandra Cardio: Rita Heme: Karson PMH: see hpi PSH: see hpi Meds: see med rec Social: denies Past History - Past Medical History Allergies/Adverse Reactions: Allergies Allergy/AdvReac Type Severity Reaction Status Date / Time pregabalin [From Lyrica] Allergy Severe Swelling Verified 03/31/18 21:24 ciprofloxacin HCl Allergy Intermediate Itching Verified 03/31/18 21:24 [From Cipro] levofloxacin [From Levaquin] Allergy Intermediate Rash Verified 03/31/18 21:24 atorvastatin calcium Allergy Mild muscle Verified 03/31/18 21:24 [From Lipitor] aches Home Medications: Ambulatory Orders Sertraline HCl [Zoloft -] 50 mg PO DAILY 08/28/14 Alprazolam [Xanax] 0.5 mg PO Q8H PRN #0 tablet 09/10/14 Pantoprazole Sodium [Protonix -] 40 mg PO DAILY #0 tablet.ec 09/10/14 Allopurinol [Zyloprim -] 150 mg PO DAILY #60 tablet 04/07/16 Albuterol Sulfate Inhaler - [Ventolin HFA Inhaler -] 1 - 2 inh PO PRN 08/09/16 Docusate Sodium [Colace -] 100 mg PO BID #60 tab-cap 10/29/16 Sitagliptin Phosphate [Januvia] 50 mg PO DAILY 03/18/17 Acetaminophen [Tylenol .Regular Strength -] 650 mg PO PRN 05/26/17 Calcium Carbonate - 650 mg PO BID #60 tablet 08/31/17 Morphine *Sr* [MS Contin -] 60 mg PO TID #60 tab.sa MDD 180mg 08/31/17 Morphine Sulfate 15 mg PO QID PRN #30 tablet MDD 60mg 08/31/17 Amlodipine Besylate [Norvasc -] 5 mg PO DAILY #30 tablet 09/25/17 Budesonide/Formeterol Fumarate [SYMBICORT 160/4.5mcg -] 2 puff IH BID #1 inhaler 09/25/17 Metoprolol Tartrate [Lopressor -] 25 mg PO BID #60 tablet 09/25/17 Atovaquone [Mepron Oral Solution -] 1,500 mg PO DAILY@0800 #1 bottle 10/25/17 Furosemide [Lasix -] 40 mg PO DAILY #30 tablet 10/25/17 Glyburide 4 mg PO DAILY 03/19/18 Rituximab [Rituxan -] 0 mg IVPB Q2M 03/19/18 Anemia: No (ICP) Asthma: Yes Cancer: Yes (lymphoma) Cardiac Disorders: (SOB) CVA: No COPD: No CHF: No Dementia: No Diabetes: Yes (niddm) GI Disorders: Yes (DIVERTICULOSIS) Disorders: Yes (renal calculi) HTN: Yes Hypercholesterolemia: Yes Liver Disease: No Psychiatric Problems: Yes (ANXIETY) Seizures: No Thyroid Disease: No - Surgical History Abdominal Surgery: Yes (SPLENECTOMY) Appendectomy: No Cardiac Surgery: No Cholecystectomy: No Lung Surgery: No Neurologic Surgery: Yes (cervical laminectomy x 2) Orthopedic Surgery: Yes (Anterior and posterior cervical laminectomy with fusion ) - Immunization History Immunization Up to Date: Yes - Suicide/Smoking/Psychosocial Hx Smoking Status: No Smoking History: Never smoked Have you smoked in the past 12 months: No Number of Cigarettes Smoked Daily: 0 If you are a former smoker, when did you quit?: 2001 Information on smoking cessation initiated: No Hx Alcohol Use: No Drug/Substance Use Hx: No Substance Use Type: None Hx Substance Use Treatment: No Review of Systems - Review of Systems Constitutional: No: Chills, Fever HEENTM: No: Symptoms Reported Respiratory: Yes: Shortness of Breath. No: Cough Cardiac (ROS): Yes: Chest Pain, Chest Tightness. No: Lightheadedness, Palpitations, Syncope ABD/GI: Yes: Nausea. No: Constipated, Diarrhea, Rectal Bleeding, Vomiting, Abdominal cramping, Tarry Stools : No: Burning, Dysuria, Frequency, Flank Pain Musculoskeletal: Yes: See HPI, Joint Pain (R hip pain), Muscle Pain (R leg pain , Bilateral calf pain) Integumentary: No: Bruising, Change in Color, Erythema, Lesions, Pruritus, Rash Neurological: No: Headache, Numbness, Tingling, Tremors *Physical Exam - Vital Signs Last Vital Signs Temp Pulse Resp BP Pulse Ox 98.1 F 98 H 18 146/60 100 03/31/18 21:15 03/31/18 21:15 03/31/18 21:15 03/31/18 21:15 03/31/18 21:15 - Physical Exam General Appearance: Yes: Appropriately Dressed, Moderate Distress, Obese HEENT: positive: EOMI, MARLA, Normal ENT Inspection Neck: positive: Trachea midline, Supple. negative: Carotid bruit, Lymphadenopathy (R), Lymphadenopathy (L) Respiratory/Chest: positive: Lungs Clear, Normal Breath Sounds. negative: Crackles, Rales, Rhonchi, Stridor, Wheezing Cardiovascular: positive: Regular Rhythm, Regular Rate, S1, S2. negative: Edema , JVD, Murmur Vascular Pulses: Carotid (R): 2+, Carotid (L): 2+, Dorsalis-Pedis (R): 2+, Doralis-Pedis (L): 2+ Gastrointestinal/Abdominal: positive: Normal Bowel Sounds, Soft. negative: Distended, Guarding, Rebound, Tenderness Musculoskeletal: positive: Muscle Spasm, Other (R hip pain with movement and palpation. Clean surgical incision, no overlying erythema or warmth. ). negative: CVA Tenderness Extremity: positive: Normal Capillary Refill, Calf Tenderness (bilateral). negative: Coldness, Cyanosis, Pedal Edema, Swelling Integumentary: positive: Normal Color, Dry, Warm. 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 negative: Numbness, Sensory Deficit ED Treatment Course - LABORATORY CBC & Chemistry Diagram: 03/31/18 22:47 03/31/18 21:59 - ADDITIONAL ORDERS Additional order review: Laboratory Results 03/31/18 03/31/18 03/31/18 22:24 21:59 21:59 PT with INR INR PTT (Actin FS) Sodium 130 L Potassium 4.2 Chloride 88 L Carbon Dioxide 26 Anion Gap 16 BUN 50 H Creatinine 2.8 H Creat Clearance w eGFR 16.86 Random Glucose 188 H Calcium 8.7 Phosphorus 2.5 Magnesium 2.2 Total Bilirubin 0.5 AST 36 ALT 8 L Alkaline Phosphatase 114 Creatine Kinase 429 H Troponin I < 0.02 Total Protein 6.8 Albumin 2.8 L Urine Color Straw Urine Appearance Clear Urine pH 8.0 D Ur Specific Chrisman 1.004 L Urine Protein Negative Urine Glucose (UA) Negative Urine Ketones Negative Urine Blood 1+ H Urine Nitrite Negative Urine Bilirubin Negative Urine Urobilinogen Negative Ur Leukocyte Esterase Trace Urine WBC (Auto) 3 Urine RBC (Auto) <1 Ur Epithelial Cells Rare 03/31/18 21:59 PT with INR 12.50 INR 1.06 PTT (Actin FS) 27.4 Sodium Potassium Chloride Carbon Dioxide Anion Gap BUN Creatinine Creat Clearance w eGFR Random Glucose Calcium Phosphorus Magnesium Total Bilirubin AST ALT Alkaline Phosphatase Creatine Kinase Troponin I Total Protein Albumin Urine Color Urine Appearance Urine pH Ur Specific Chrisman Urine Protein Urine Glucose (UA) Urine Ketones Urine Blood Urine Nitrite Urine Bilirubin Urine Urobilinogen Ur Leukocyte Esterase Urine WBC (Auto) Urine RBC (Auto) Ur Epithelial Cells - RADIOLOGY Radiology Studies Ordered: Category Date Time Status CHEST X-RAY PORTABLE* [RAD] Stat Radiology 03/31/18 21:24 Taken - Medications Given in the ED: ED Medications Discontinued Medications Generic Name Dose Route Start Last Admin Trade Name Freq PRN Reason Stop Dose Admin Morphine Sulfate 8 mg 03/31/18 22:09 03/31/18 22:16 Morphine Injection - IVPUSH 03/31/18 22:10 8 mg ONCE ONE Administration Medical Decision Making - Medical Decision Making 04/01/18 00:13 Pt is a 67yo f with PMH of ITP s/p splenectomy, Lymphoma (in remission), CKD, DM , HTN, R hip replacement 4 days ago BIBA for chest pain and R hip pain. Vitals: wnl PE: R hip tenerness, pain with movement, pt appeared short of breath, either due to chest pain and/or hip pain. DDx: hip pain, PE, acs low suspicion for pna, chf given no swelling, does not look fluid overloaded , no fevers, cough. High suspicion for PE given recent surgery however not tachycardic, tachypneic or hypoxic. Recent surgery is the criteria met on [place]. Ordered cbc, cmp, cardiac profile, pt/inr, aptt. ekg, cxr EKG: similar compared to prior. sinus rhythm. no new joaquin or depressions. Cr 2.8, elevated CK, 1+blood in urine <1 RBC most likey rhabdo. ordered fluids. Platelet 280s. will give ASA for chest pain. Hb 9.7 around baseline, Na 130 (baseline) PT given 8mg morphine IV. Still in pain, given .5 Dilaudid. Still in pain. Ordered DVT study, pt could not tolerate and refused. Ordered home dose morphine. Perhaps pathology in hip? Due to Cr, cannot do CTA. Pt admitted to Dr. Bocanegra for chest pain (acs v. pe) started on heparin drip. *DC/Admit/Observation/Transfer Diagnosis at time of Disposition: Hip pain, right Chest pain Qualifiers: Chest pain type: unspecified Qualified Code(s): R07.9 - Chest pain, unspecified - Discharge Dispostion Condition at time of disposition: Fair Decision to Admit order: Yes - Referrals Referrals: Subhash Mcfarlane MD [Primary Care Provider] - - Patient Instructions - Post Discharge Activity
[2018-03-31] MEDS ORDERED: ASPIRIN 81 MG CHEWABLE TABLETS PO ONE (23:09)
[2018-03-31] MEDS ORDERED: SODIUM CHLORIDE 1,000 ML IV STA (23:18)
[2018-03-31] MEDS ORDERED: ASPIRIN 325 MG TABLET ONE (23:27)
[2018-04-01] MEDS ORDERED: morphine SULFATE IMMEDIATE RELEASE 30 MG TAB PO ONE (00:01)
[2018-04-01] MEDS ORDERED: HEPARIN INFUSION - 25,000 UNITS/500 ML INFUS.BAG IVPB ONE (00:48)
[2018-04-01] MEDS ORDERED: morphine SULFATE IMMEDIATE RELEASE 30 MG TAB ONE ×3 (00:48→16:33)
[2018-04-01] MEDS: HEPARIN - 25,000 UNIT in SODIUM CHLORIDE 495 ML IV SCH (01:00)
[2018-04-01] MEDS ORDERED: ALBUTEROL SO4 8 GM HFA INHALER IH PRN (01:00)
[2018-04-01 02:22] LABS: ANISOCYTOSIS 1+; MACROCYTOSIS 0; PLATELET ESTIMATE NORMAL
[2018-04-01] MEDS ORDERED: ACETAMINOPHEN 325 MG TABLET (FP) ONE (03:28)
[2018-04-01] MEDS ORDERED: ALPRAZolam 0.25 MG TABLET ONE ×2 (03:29→23:33)
[2018-04-01] MEDS: morphine SULFATE IMMEDIATE RELEASE 30 MG TAB PO PRN ×2 (03:36→16:47)
[2018-04-01] MEDS: ACETAMINOPHEN 325 MG TABLET (FP) PO PRN (03:37)
[2018-04-01] MEDS: ALPRAZolam 0.25 MG TABLET PO PRN ×2 (03:39→23:35)
[2018-04-01 03:52] LABS: CHOLESTEROL 227 mg/dL (50-200); HDL CHOLESTEROL 22 mg/dL (40-60); TRIGLYCERIDES 306 mg/dL (0-150)
[2018-04-01 05:47] LABS: BASO % 1.2 % (0-2.0); EOS % 0.7 % (0-4.5); HEMATOCRIT 26.4 % (32.4-45.2); HEMOGLOBIN 8.3 GM/dL (10.7-15.3); LYMPH % 7.7 % (8-40); MCH 27.4 pg (25.7-33.7); MCHC 31.5 g/dl (32.0-36.0); MEAN CELL VOLUME 86.9 fl (80-96); MEAN PLT VOLUME 9.3 fl (7.5-11.1); MONO % 8.1 % (3.8-10.2); NEUT % 82.3 % (42.8-82.8); PLATELET COUNT 241 K/MM3 (134-434); RBC 3.04 M/mm3 (3.60-5.2); RDW 17.4 % (11.6-15.6); WHITE BLOOD COUNT 16.1 K/mm3 (4.0-10.0)
[2018-04-01 06:01] LABS: INR 1.18 (0.83-1.09)
[2018-04-01] MEDS ORDERED: morphine SO4 SUSTAINED ACTING 15 MG TABLET.SA ONE ×3 (06:22→23:23)
[2018-04-01] MEDS: morphine SO4 SUSTAINED ACTING 30 MG TABLET.SA PO SCH ×3 (06:34→23:30)
[2018-04-01] MEDS: GLIMEPIRIDE 4 MG TABLET (FP) PO SCH (07:00)
[2018-04-01] MEDS: ATOVAQUONE 750 MG/5 ML (UNIT-DOSE PACKAGING) PO SCH (08:08)
--- NOTE | 2018-04-01 10:27 | HP ---
Admitting History and Physical - Primary Care Physician PCP: Subhash Mcfarlane - Admission Chief Complaint: Chest pain History of Present Illness: 67year-old female, with H/O HTN, Paroxysmal afib, T2DM, Diabetic Nephropathy CKD stage 4 base line GFR <29, Mantel Cell Lymphoma not on treatment, ITP s/p Spleenectomy multiple relapse in the past now platelet count is stable, present to Ed from [facility] rehab for revaluation of Chest Pain , patient underwent RT THR at [place] was discharged to [facility] at [facility] on Monday , yesterday, patient experienced central sharp chest pain 03/14 with radiation to both shoulder, associated chest wall tenderness and pain in Rt Hip no SOB or Palpitation denies any diaphoresis or Dizziness, patient was transferred to Ed for evaluation, hemodynamically , worsening renal functions, patient was not on DVT prophylaxis after Hip surgery so patient was put on Heparin GTT empirically as patient cant receive IV contrast and VQ scan is not possible before Monday, patient feels improved CP resolved denies any SOB or palpitation , mild tenderness over the sternum. o c/o fever, dysuria - Past Medical History Cardiovascular: Yes: HTN. No: AFIB Pulmonary: Yes: COPD, Other (elevated left hemidiaphragm) Gastrointestinal: Yes: Diverticulitis (osteoarthritis right hip). No: Ascites Hepatobiliary: No: Cirrhosis Renal/: Yes: Renal Calculi, UTI, Other (bladder dysfunction). No: Renal Failure Heme/Onc: Yes: Thrombocytopenia (s/p splenectomy), Other (lymphoma -Mantle cell) Psych: Yes: Anxiety, Depression Musculoskeletal: Yes: Chronic low back pain, Osteoarthritis (right hip) Rheumatology: Yes: Other (degenerative spine disease) Endocrine: Yes: Diabetes Mellitus - Past Surgical History Past Surgical History: Yes: Laminectomy (cervical laminectomy x2 (2002)), Splenectomy, Thoracotomy - Smoking History Smoking history: Never smoked Have you smoked in the past 12 months: No Aproximately how many cigarettes per day: 0 If you are a former smoker, when did you quit?: 2001 - Alcohol/Substance Use Hx Alcohol Use: No History of Substance Use: reports: None - Social History ADL: Independent 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, , 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 History of Recent Travel: No Home Medications - Allergies Allergies/Adverse Reactions: Allergies Allergy/AdvReac Type Severity Reaction Status Date / Time pregabalin [From Lyrica] Allergy Severe Swelling Verified 03/31/18 21:24 ciprofloxacin HCl Allergy Intermediate Itching Verified 03/31/18 21:24 [From Cipro] levofloxacin [From Levaquin] Allergy Intermediate Rash Verified 03/31/18 21:24 atorvastatin calcium Allergy Mild muscle Verified 03/31/18 21:24 [From Lipitor] aches - Home Medications Home Medications: Ambulatory Orders Sertraline HCl [Zoloft -] 50 mg PO DAILY 08/28/14 Alprazolam [Xanax] 0.5 mg PO Q8H PRN #0 tablet 09/10/14 Pantoprazole Sodium [Protonix -] 40 mg PO DAILY #0 tablet.ec 09/10/14 Allopurinol [Zyloprim -] 150 mg PO DAILY #60 tablet 04/07/16 Albuterol Sulfate Inhaler - [Ventolin HFA Inhaler -] 1 - 2 inh PO PRN 08/09/16 Docusate Sodium [Colace -] 100 mg PO BID #60 tab-cap 10/29/16 Sitagliptin Phosphate [Januvia] 50 mg PO DAILY 03/18/17 Acetaminophen [Tylenol .Regular Strength -] 650 mg PO PRN 05/26/17 Calcium Carbonate - 650 mg PO BID #60 tablet 08/31/17 Morphine *Sr* [MS Contin -] 60 mg PO TID #60 tab.sa MDD 180mg 08/31/17 Morphine Sulfate 15 mg PO QID PRN #30 tablet MDD 60mg 08/31/17 Amlodipine Besylate [Norvasc -] 5 mg PO DAILY #30 tablet 09/25/17 Budesonide/Formeterol Fumarate [SYMBICORT 160/4.5mcg -] 2 puff IH BID #1 inhaler 09/25/17 Metoprolol Tartrate [Lopressor -] 25 mg PO BID #60 tablet 09/25/17 Atovaquone [Mepron Oral Solution -] 1,500 mg PO DAILY@0800 #1 bottle 10/25/17 Furosemide [Lasix -] 40 mg PO DAILY #30 tablet 10/25/17 Glyburide 4 mg PO DAILY 03/19/18 Rituximab [Rituxan -] 0 mg IVPB Q2M 03/19/18 Family Disease History - Family Disease History Family Disease History: Diabetes: Mother, Heart Disease: Mother, Other: Father ( thrombocytopenia), Daughter (hypothyroidism) Physical Examination Vital Signs: Vital Signs Temperature 98.0 F 04/01/18 05:15 Pulse Rate 72 04/01/18 07:10 Respiratory Rate 19 04/01/18 07:10 Blood Pressure 118/45 L 04/01/18 07:10 O2 Sat by Pulse Oximetry (%) 98 04/01/18 07:10 Elderly F not in distresss c/o RT Hip Pian no c/o CP or SOB HEENT: Mm moist, anemia, PERRLA EOMI NECK: No JVD No Bruit CHEST: Mild sternal tenderness, minimal Basal crept CVS; S1S2 R no m/g/r ABD: Obese, Left ant abd wall Hernia, BS + EXT: Rt Hip TKR , Pulses +, Rt Le swelling + 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 SERVICES DIRECTOR: AOx3 non focal Labs: CBC, BMP 04/01/18 05:30 03/31/18 21:59 Imaging - Results Chest X-ray: Report Reviewed (No infiltrates) EKG: Report Reviewed ([address] chnages) Problem List - Problems (1) Chest pain Assessment/Plan: Patient present with sharp reproducible chest pain while doing PT no associated SOB , Hypoxia or Palpitation, less likely ACS serial CE and EKG unremarkable will cont Home medication, considering recent surgery and not on DVT prophylaxis risk of VTE is High unfortunately unable to perform CT chest with IV Contrast due to advanced renal failure so patient was put on AC will F/U LE Doppler, VQ scan and Hematology input before DC AC mean time cont Heparin infusion Code(s): R07.9 - CHEST PAIN, UNSPECIFIED Qualifiers: Chest pain type: unspecified Qualified Code(s): R07.9 - Chest pain, unspecified (2) Acute on chronic renal failure Assessment/Plan: Due to dehydration recived IV Hydration all meds renally adjusted renal consult F/U BMP Code(s): N17.9 - ACUTE KIDNEY FAILURE, UNSPECIFIED; N18.9 - CHRONIC KIDNEY DISEASE, UNSPECIFIED Qualifiers: Chronic kidney disease stage: stage 4 (severe) (3) Hip pain, right Assessment/Plan: S/P THR on Last Monday will f/u PT and ortho input. Code(s): M25.551 - PAIN IN RIGHT HIP (4) COPD (chronic obstructive pulmonary disease) Assessment/Plan: Stable cont all home meds Code(s): J44.9 - CHRONIC OBSTRUCTIVE PULMONARY DISEASE, UNSPECIFIED (5) HTN (hypertension) Assessment/Plan: Well controlled cont all home meds Code(s): I10 - ESSENTIAL (PRIMARY) HYPERTENSION Qualifiers: Hypertension type: essential hypertension Qualified Code(s): I10 - Essential (primary) hypertension (6) Diabetes mellitus Assessment/Plan: Resume home meds Code(s): E11.9 - TYPE 2 DIABETES MELLITUS WITHOUT COMPLICATIONS Qualifiers: Diabetes mellitus type: drug or chemical induced Diabetes mellitus complication status: without complication (7) History of immunocompromised state Assessment/Plan: On Mepron Code(s): Z86.2 - PRSNL HISTORY OF DIS OF THE BLD/BLD-FORM ORG/IMMUN MECHNSM (8) Mantle cell lymphoma Assessment/Plan: In remission Code(s): C83.10 - MANTLE CELL LYMPHOMA, UNSPECIFIED SITE (9) Elevated WBC count Assessment/Plan: trending normal most likely reactive Code(s): D72.829 - ELEVATED WHITE BLOOD CELL COUNT, UNSPECIFIED (10) Chronic pain Assessment/Plan: On Pain medication cont same dose of Oxycontin Code(s): G89.29 - OTHER CHRONIC PAIN Qualifiers: Chronic pain type: chronic pain syndrome Qualified Code(s): G89.4 - Chronic pain syndrome (11) Chronic ITP (idiopathic thrombocytopenia) Assessment/Plan: In remission on Rituximab platelet counts are stable off steroids Code(s): D69.3 - IMMUNE THROMBOCYTOPENIC PURPURA
[2018-04-01] MEDS: DOCUSATE SODIUM 100 MG CAPSULE (FP) PO SCH ×2 (10:30→23:00)
[2018-04-01] MEDS: PANTOPRAZOLE 40 MG TABLET (FP) PO SCH (10:30)
[2018-04-01] MEDS: CALCIUM CARBONATE 650 MG TABLET PO SCH ×2 (10:30→23:00)
[2018-04-01] MEDS: ALLOPURINOL 100 MG TABLET (FP) PO SCH (10:30)
[2018-04-01] MEDS ORDERED: FUROSEMIDE 40 MG TABLET (FP) ONE (10:38)
[2018-04-01] MEDS: FUROSEMIDE 40 MG TABLET (FP) PO SCH (10:56)
[2018-04-01] MEDS: amLODIPine BESYLATE 5 MG TABLET (FP) PO SCH (10:57)
[2018-04-01] MEDS: METOPROLOL TARTRATE 25 MG TABLET (FP) PO SCH ×2 (10:57→23:00)
[2018-04-01 11:59] LABS: ANION GAP 15 MMOL/L (8-16); BLOOD UREA NITROGEN 44 mg/dL (7-18); CALCIUM 8.3 mg/dL (8.5-10.1); CHLORIDE 94 mmol/L (98-107); CO2 25 mmol/L (21-32); CREATININE 2.5 mg/dL (0.55-1.3); GLUCOSE,RANDOM 117 mg/dL (74-106); POTASSIUM 3.7 mmol/L (3.5-5.1); SODIUM 134 mmol/L (136-145)
[2018-04-01] MEDS: BUDESONIDE/FORMETEROL FUMARATE 160/4.5 mcg INHALER IH SCH ×2 (13:04→23:00)
--- NOTE | 2018-04-01 13:59 | EKG ---
Test Reason : Blood Pressure : / mmHG Vent. Rate : 087 BPM Atrial Rate : 087 BPM P-R Int : 124 ms QRS Dur : 092 ms QT Int : 422 ms P-R-T Axes : 063 -19 021 degrees QTc Int : 507 ms NORMAL SINUS RHYTHM PROLONGED QT ABNORMAL ECG WHEN COMPARED WITH ECG OF 04-FEB-2018 10:46, NO SIGNIFICANT CHANGE WAS FOUND Confirmed by MD Nikkie, Harris ([id number]) on 04/01/2018 1:58:40 PM Referred By: Confirmed By:Harris Lundy MD
[2018-04-02] MEDS ORDERED: HEPARIN NA (PORCINE) 5,000 UNITS/ML 1ML VIAL ONE ×2 (01:35→15:18)
[2018-04-02] MEDS: HEPARIN - 25,000 UNIT in SODIUM CHLORIDE 495 ML IV SCH ×3 (01:51→23:49)
[2018-04-02] MEDS ORDERED: morphine SO4 SUSTAINED ACTING 15 MG TABLET.SA ONE ×2 (04:10→10:01)
[2018-04-02] MEDS: morphine SULFATE IMMEDIATE RELEASE 30 MG TAB PO PRN ×2 (04:13→17:50)
[2018-04-02] MEDS: morphine SO4 SUSTAINED ACTING 30 MG TABLET.SA PO SCH ×4 (06:50→21:18)
[2018-04-02] MEDS: GLIMEPIRIDE 4 MG TABLET (FP) PO SCH (06:50)
[2018-04-02 07:26] LABS: BASO % 1.1 % (0-2.0); EOS % 5.9 % (0-4.5); HEMATOCRIT 26.8 % (32.4-45.2); HEMOGLOBIN 8.3 GM/dL (10.7-15.3); MCH 27.5 pg (25.7-33.7); MCHC 31.1 g/dl (32.0-36.0); MEAN CELL VOLUME 88.4 fl (80-96); MEAN PLT VOLUME 9.3 fl (7.5-11.1); MONO % 9.1 % (3.8-10.2); NEUT % 71.9 % (42.8-82.8); PLATELET COUNT 284 K/MM3 (134-434); RBC 3.03 M/mm3 (3.60-5.2); RDW 17.8 % (11.6-15.6); WHITE BLOOD COUNT 12.5 K/mm3 (4.0-10.0)
[2018-04-02 08:05] LABS: ALBUMIN 2.3 g/dl (3.4-5.0); ALK PHOS 84 U/L (45-117); ANION GAP 12 MMOL/L (8-16); BILIRUBIN,TOTAL 0.2 mg/dL (0.2-1); BLOOD UREA NITROGEN 38 mg/dL (7-18); CALCIUM 8.1 mg/dL (8.5-10.1); CHLORIDE 98 mmol/L (98-107); CO2 26 mmol/L (21-32); CREATININE 2.1 mg/dL (0.55-1.3); GLUCOSE,RANDOM 114 mg/dL (74-106); POTASSIUM 3.9 mmol/L (3.5-5.1); SGOT/AST 32 U/L (15-37); SGPT/ALT 10 U/L (13-61); SODIUM 135 mmol/L (136-145); TOT PROT 5.7 g/dl (6.4-8.2)
[2018-04-02 08:12] LABS: PROTHROMBIN TIME (PATIENT) 11.8 SEC (9.7-13.0)
--- NOTE | 2018-04-02 08:12 | PN ---
Progress Note, Physician Chief Complaint: C/O Rt Hip Painn no SOB - Current Medication List Current Medications: Active Medications Acetaminophen (Tylenol -) 650 mg PO Q6H PRN PRN Reason: FEVER/PAIN LEVEL 1-5 Last Admin: 04/01/18 03:37 Dose: 650 mg Albuterol Sulfate (Ventolin Hfa Inhaler -) 2 puff IH Q4H PRN PRN Reason: SHORTNESS OF BREATH Allopurinol (Zyloprim -) 150 mg PO DAILY [facility] Last Admin: 04/01/18 10:30 Dose: 150 mg Alprazolam (Xanax -) 0.5 mg PO Q8H PRN PRN Reason: ANXIETY Last Admin: 04/01/18 23:35 Dose: 0.5 mg Amlodipine Besylate (Norvasc -) 5 mg PO DAILY [facility] Last Admin: 04/01/18 10:57 Dose: Not Given Atovaquone (Mepron -) 1,500 mg PO DAILY@0800 [facility] Last Admin: 04/01/18 08:08 Dose: 1,500 mg Budesonide/Formoterol Fumarate (Symbicort 160/4.5mcg -) 2 puff IH BID [facility] Last Admin: 04/01/18 23:00 Dose: 2 puff Calcium Carbonate (Calcium Carbonate -) 650 mg PO BID [facility] Last Admin: 04/01/18 23:00 Dose: 650 mg Docusate Sodium (Colace -) 100 mg PO BID [facility] Last Admin: 04/01/18 23:00 Dose: 100 mg Furosemide (Lasix -) 40 mg PO DAILY [facility] Last Admin: 04/01/18 10:56 Dose: Not Given Glimepiride (Amaryl -) 4 mg PO DAILY@0700 [facility] Last Admin: 04/02/18 06:50 Dose: 4 mg Heparin Sodium (Porcine) 25, (000 unit/ Sodium Chloride) 500 mls @ 20 mls/hr IV TITR [facility]; Protocol Last Admin: 04/02/18 01:51 Dose: 1,450 unit/hr, 29 mls/hr Metoprolol Tartrate (Lopressor -) 25 mg PO BID [facility] Last Admin: 04/01/18 23:00 Dose: 25 mg Morphine Sulfate (Ms Contin -) 60 mg PO TID [facility] Last Admin: 04/02/18 06:50 Dose: 60 mg Morphine Sulfate (Msir -) 15 mg PO Q6H PRN PRN Reason: BREAKTHROUGH PAIN 6-10 Last Admin: 04/02/18 04:13 Dose: 15 mg Pantoprazole Sodium (Protonix -) 40 mg PO DAILY [facility] Last Admin: 04/01/18 10:30 Dose: 40 mg - Objective Vital Signs: Vital Signs Temperature 98.0 F 04/02/18 06:30 Pulse Rate 70 04/02/18 06:30 Respiratory Rate 17 04/02/18 06:30 Blood Pressure 125/44 L 04/02/18 06:30 O2 Sat by Pulse Oximetry (%) 95 04/02/18 06:30 Elderly F not in distresss c/o RT Hip Pian no c/o CP or SOB HEENT: Mm moist, anemia, PERRLA EOMI NECK: No JVD No Bruit CHEST: Mild sternal tenderness, minimal Basal crept CVS; S1S2 R no m/g/r ABD: Obese, Left ant abd wall Hernia, BS + EXT: Rt Hip TKR , Pulses +, Rt Le swelling + 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: AOx3 non focal Labs: CBC, BMP 04/02/18 07:00 04/02/18 07:00 INR, PTT INR 1.18 (0.83-1.09) H 04/01/18 05:30 Problem List - Problems (1) Chest pain Assessment/Plan: Patient present with sharp reproducible chest pain while doing PT no associated SOB , Hypoxia or Palpitation, less likely ACS serial CE and EKG unremarkable will cont Home medication, considering recent surgery and not on DVT prophylaxis risk of VTE is High unfortunately unable to perform CT chest with IV Contrast due to advanced renal failure so patient was put on AC will F/U LE Doppler, VQ scan and Hematology input before DC AC mean time cont Heparin infusion Code(s): R07.9 - CHEST PAIN, UNSPECIFIED Qualifiers: Chest pain type: unspecified Qualified Code(s): R07.9 - Chest pain, unspecified (2) Acute on chronic renal failure Assessment/Plan: Due to dehydration improving F/U BMP Code(s): N17.9 - ACUTE KIDNEY FAILURE, UNSPECIFIED; N18.9 - CHRONIC KIDNEY DISEASE, UNSPECIFIED Qualifiers: Chronic kidney disease stage: stage 4 (severe) (3) Hip pain, right Assessment/Plan: S/P THR on Last Monday will f/u PT and ortho input. Code(s): M25.551 - PAIN IN RIGHT HIP (4) COPD (chronic obstructive pulmonary disease) Assessment/Plan: Stable cont all home meds Code(s): J44.9 - CHRONIC OBSTRUCTIVE PULMONARY DISEASE, UNSPECIFIED (5) Acute ITP Assessment/Plan: Stable cont Hematology input Code(s): D69.3 - IMMUNE THROMBOCYTOPENIC PURPURA (6) HTN (hypertension) Assessment/Plan: Well controlled cont all home meds Code(s): I10 - ESSENTIAL (PRIMARY) HYPERTENSION Qualifiers: Hypertension type: essential hypertension Qualified Code(s): I10 - Essential (primary) hypertension (7) Diabetes mellitus Assessment/Plan: Resume home meds Code(s): E11.9 - TYPE 2 DIABETES MELLITUS WITHOUT COMPLICATIONS Qualifiers: Diabetes mellitus type: drug or chemical induced Diabetes mellitus complication status: without complication (8) History of immunocompromised state Assessment/Plan: On Mepron Code(s): Z86.2 - PRSNL HISTORY OF DIS OF THE BLD/BLD-FORM ORG/IMMUN MECHNSM (9) Mantle cell lymphoma Assessment/Plan: In remission Code(s): C83.10 - MANTLE CELL LYMPHOMA, UNSPECIFIED SITE (10) Elevated WBC count Assessment/Plan: trending normal most likely reactive Code(s): D72.829 - ELEVATED WHITE BLOOD CELL COUNT, UNSPECIFIED (11) Anemia Assessment/Plan: H/h stable intial drop dilutional Code(s): D64.9 - ANEMIA, UNSPECIFIED Qualifiers: Anemia type: iron deficiency Iron deficiency anemia type: chronic blood loss Qualified Code(s): D50.0 - Iron deficiency anemia secondary to blood loss (chronic)
[2018-04-02] MEDS: HEPARIN NA (PORCINE) 5,000 UNITS/ML 1ML VIAL IVPUSH PRN ×2 (08:15→23:49)
[2018-04-02] MEDS: ATOVAQUONE 750 MG/5 ML (UNIT-DOSE PACKAGING) PO SCH (10:08)
--- NOTE | 2018-04-02 10:18 | ECHO ---
Name: BANDARCHRISTOPATTY Exam:Adult Echocardiogram Study Date: 04/02/2018 08:30 AM Age: 67 yrs Reason For Study: SYNCOPE Height: 67 in Weight: 250 lb BSA: 2.2 m2 MMode/2D Measurements & Calculations IVSd: 1.0 cm Ao root diam: 2.4 cm LVIDd: 3.4 cm ACS: 0.97 cm LVIDs: 2.4 cm LVPWd: 1.2 cm EDV(Teich): 46.8 ml LVOT diam: 1.6 cm ESV(Teich): 19.2 ml Doppler Measurements & Calculations TV V2 max: 336.6 cm/sec TV max P.4 mmHg TV V2 mean: 239.4 cm/sec TV mean P.4 mmHg TV V2 VTI: 102.8 cm Procedure A complete two-dimensional transthoracic echocardiogram was performed (2D, M-mode, Doppler and color flow Doppler). Severely limited study. Left Ventricle The left ventricle is normal in size. Left ventricular systolic function is normal. Ejection Fraction = 60- 65%. No regional wall motion abnormalities noted. Right Ventricle The right ventricle is not well visualized. Atria The left atrial size is normal. Right atrium not well visualized. Mitral Valve There is mild mitral valve thickening. There is mild mitral annular calcification. There is no mitral regurgitation noted. Tricuspid Valve The tricuspid valve is not well visualized. Aortic Valve There is mild aortic sclerosis.;. No aortic regurgitation is present. Pulmonic Valve The pulmonic valve is not well visualized. Great Vessels The aortic root is normal size. Pericardium/Pleura There is no pericardial effusion. Interpretation Summary Severely limited study The left ventricle is normal in size. Left ventricular systolic function is normal. No regional wall motion abnormalities noted. Ejection Fraction = 60-65%. The right ventricle is not well visualized. The left atrial size is normal. Right atrium not well visualized. There is mild mitral valve thickening. There is mild mitral annular calcification. There is mild aortic sclerosis. Valvular regurgitations could not be accurately assessed due to poor acoustic window Pulmonary artery systolic pressure is at least 51 mmHg assuming RA pressure of 3 mmHg There is no pericardial effusion. Previous study is not available for comparison Abdon Salinas MD 04/02/2018 10:18 AM
[2018-04-02] MEDS: CALCIUM CARBONATE 650 MG TABLET PO SCH ×2 (10:24→21:43)
[2018-04-02] MEDS: DOCUSATE SODIUM 100 MG CAPSULE (FP) PO SCH ×2 (10:24→21:18)
[2018-04-02] MEDS: ALLOPURINOL 100 MG TABLET (FP) PO SCH (10:25)
[2018-04-02] MEDS: amLODIPine BESYLATE 5 MG TABLET (FP) PO SCH (10:25)
[2018-04-02] MEDS: METOPROLOL TARTRATE 25 MG TABLET (FP) PO SCH ×2 (10:25→21:20)
[2018-04-02] MEDS: FUROSEMIDE 40 MG TABLET (FP) PO SCH (10:25)
[2018-04-02] MEDS: PANTOPRAZOLE 40 MG TABLET (FP) PO SCH (10:25)
[2018-04-02] MEDS: BUDESONIDE/FORMETEROL FUMARATE 160/4.5 mcg INHALER IH SCH ×2 (10:27→21:44)
--- NOTE | 2018-04-02 14:08 | CON.CARD ---
Consult Consult Specialty:: Cardiology Referred by:: Subhash Mcfarlane MD Reason for Consultation:: Chest pain - History of Present Illness Chief Complaint: Chest pain History of Present Illness: 67 year-old female, with H/O HTN, Paroxysmal afib, T2DM, Diabetic Nephropathy CKD stage 4 base line GFR <29, Mantel Cell Lymphoma not on treatment, ITP s/p Spleenectomy multiple relapse in the past now platelet count is stable, post recent right THR d/riaz without DVT prophylaxis presented with chest tightness worse with exertion and deep breathing associated with light-headedness without true syncope, or dyspnea since resolved. She was empirically treated with heparin gtt pending V/Q scan, chest CTA not ideal due to CKD. - History Source History Provided By: Patient Limitations to Obtaining History: No Limitations - Past Medical History Cardio/Vascular: Yes: HTN. No: AFIB Pulmonary: Yes: COPD, Other (elevated left hemidiaphragm) Gastrointestinal: Yes: Diverticulitis (osteoarthritis right hip). No: Ascites Hepatobiliary: No: Cirrhosis Renal/: Yes: Renal Calculi, UTI, Other (bladder dysfunction). No: Renal Failure Psych: Yes: Anxiety, Depression Musculoskeletal: Yes: Chronic low back pain, Osteoarthritis (right hip) Rheumatology: Yes: Other (degenerative spine disease) Endocrine: Yes: Diabetes Mellitus Additional Medical History: ITP, Mantle Cell Lymphoma - Past Surgical History Past Surgical History: Yes: Laminectomy (cervical laminectomy x2 (2001)), Splenectomy, Thoracotomy - Alcohol/Substance Use Hx Alcohol Use: No History of Substance Use: reports: None - Smoking History Smoking history: Never smoked Have you smoked in the past 12 months: No Aproximately how many cigarettes per day: 0 If you are a former smoker, when did you quit?: 2001 - Social History Usual Living Arrangement: Other ADL: Independent 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, , 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 History of Recent Travel: No Home Medications - Allergies Allergies/Adverse Reactions: Allergies Allergy/AdvReac Type Severity Reaction Status Date / Time pregabalin [From Lyrica] Allergy Severe Swelling Verified 03/31/18 21:24 ciprofloxacin HCl Allergy Intermediate Itching Verified 03/31/18 21:24 [From Cipro] levofloxacin [From Levaquin] Allergy Intermediate Rash Verified 03/31/18 21:24 atorvastatin calcium Allergy Mild muscle Verified 03/31/18 21:24 [From Lipitor] aches - Home Medications Home Medications: Ambulatory Orders Sertraline HCl [Zoloft -] 50 mg PO DAILY 08/28/14 Alprazolam [Xanax] 0.5 mg PO Q8H PRN #0 tablet 09/10/14 Pantoprazole Sodium [Protonix -] 40 mg PO DAILY #0 tablet.ec 09/10/14 Allopurinol [Zyloprim -] 150 mg PO DAILY #60 tablet 04/07/16 Albuterol Sulfate Inhaler - [Ventolin HFA Inhaler -] 1 - 2 inh PO PRN 08/09/16 Docusate Sodium [Colace -] 100 mg PO BID #60 tab-cap 10/29/16 Sitagliptin Phosphate [Januvia] 50 mg PO DAILY 03/18/17 Acetaminophen [Tylenol .Regular Strength -] 650 mg PO PRN 05/26/17 Calcium Carbonate - 650 mg PO BID #60 tablet 08/31/17 Morphine *Sr* [MS Contin -] 60 mg PO TID #60 tab.sa MDD 180mg 08/31/17 Morphine Sulfate 15 mg PO QID PRN #30 tablet MDD 60mg 08/31/17 Amlodipine Besylate [Norvasc -] 5 mg PO DAILY #30 tablet 09/25/17 Budesonide/Formeterol Fumarate [SYMBICORT 160/4.5mcg -] 2 puff IH BID #1 inhaler 09/25/17 Metoprolol Tartrate [Lopressor -] 25 mg PO BID #60 tablet 09/25/17 Atovaquone [Mepron Oral Solution -] 1,500 mg PO DAILY@0800 #1 bottle 10/25/17 Furosemide [Lasix -] 40 mg PO DAILY #30 tablet 10/25/17 Glyburide 4 mg PO DAILY 03/19/18 Rituximab [Rituxan -] 0 mg IVPB Q2M 03/19/18 Family Disease History - Family Disease History Family Disease History: Diabetes: Mother, Heart Disease: Mother, Other: Father ( thrombocytopenia), Daughter (hypothyroidism) Review of Systems - Review of Systems Constitutional: reports: No Symptoms Eyes: reports: No Symptoms HENT: reports: No Symptoms Cardiovascular: reports: Chest Pain Respiratory: reports: No Symptoms Gastrointestinal: reports: Constipation Genitourinary: reports: No Symptoms Musculoskeletal: reports: Joint Pain Neurological: reports: No Symptoms Vital Signs: Vital Signs Temperature 98.0 F 04/02/18 06:30 Pulse Rate 66 04/02/18 11:03 Respiratory Rate 16 04/02/18 11:03 Blood Pressure 114/44 L 04/02/18 11:03 O2 Sat by Pulse Oximetry (%) 95 04/02/18 11:03 Constitutional: Yes: No Distress, Calm Neck: Yes: Supple Respiratory: Yes: Regular, Diminished Gastrointestinal: Yes: Normal Bowel Sounds, Soft, Abdomen, Obese Cardiovascular: Yes: Regular Rate and Rhythm JVD: No Carotid Bruit: No Heart Sounds: Yes: S1, S2 Edema: No - Other Data Labs, Other Data: CBC, BMP 04/02/18 07:00 04/02/18 07:00 INR, PTT INR 1.00 (0.83-1.09) 04/02/18 07:00 NSR @ 87 Ejection Fraction %: LVEF > or = 40 % Imaging - Results Chest X-ray: Report Reviewed (Left base ATX) Problem List - Problems (1) Status post total hip replacement, right Code(s): Z96.641 - PRESENCE OF RIGHT ARTIFICIAL HIP JOINT (2) Chest pain Code(s): R07.9 - CHEST PAIN, UNSPECIFIED Qualifiers: Chest pain type: precordial pain Qualified Code(s): R07.2 - Precordial pain (3) Hip pain, right Code(s): M25.551 - PAIN IN RIGHT HIP (4) Acute ITP Code(s): D69.3 - IMMUNE THROMBOCYTOPENIC PURPURA (5) CKD (chronic kidney disease) Code(s): N18.9 - CHRONIC KIDNEY DISEASE, UNSPECIFIED Qualifiers: Chronic kidney disease stage: stage 3 (moderate) Qualified Code(s): N18.3 - Chronic kidney disease, stage 3 (moderate) (6) HTN (hypertension) Code(s): I10 - ESSENTIAL (PRIMARY) HYPERTENSION Qualifiers: Hypertension type: essential hypertension Qualified Code(s): I10 - Essential (primary) hypertension (7) Mantle cell lymphoma Code(s): C83.10 - MANTLE CELL LYMPHOMA, UNSPECIFIED SITE Qualifiers: Lymphoma site: unspecified region Qualified Code(s): C83.10 - Mantle cell lymphoma, unspecified site (8) T2DM (type 2 diabetes mellitus) Code(s): E11.9 - TYPE 2 DIABETES MELLITUS WITHOUT COMPLICATIONS Qualifiers: Diabetes mellitus penitentiary insulin use: without penitentiary use Diabetes mellitus complication status: without complication Qualified Code(s): E11.9 - Type 2 diabetes mellitus without complications Assessment/Plan Echocardiography dated 08/18/2017 revealed normal bi-ventricular size and function, mild MR and TR 04/02/2018 Echo: RV not well seen, normal LV size and fxn, LVEF 60-65%, RVSP 51 mmHg 1. Chest pain syndrome r/o post-op PE 2. s/p recent right THR 3. Diastolic dysfunction 4. CAD angina pectoris 5. HTN 6. Type 2 Diabetes mellitus 7. Hypercholesterolemia 8. COPD 9. Acute on CKD improving 10. History of thrombocytopenia post splenectomy with history of ITP 11. History of Mantle cell lymphoma 12. History of degenerative joint disease 13. Morbid obesity PLAN: 1. F/u V/Q scan and LE dopplers r/o DVT/PE, maintain on heparin gtt for now 2. Continue Lopressor 25 bid and Norvasc 5 qd 3. Continue Lasix 40 qd with close monitoring of renal function and electrolytes 4. Analgesia as needed, PT as tolerated 5. Ideally ACEI or ARBS are recommended once renal function at baseline 6. Recommend pharmacologic MPI study as outpatient once clinically stable 7. Thank you for consultative opportunity
--- NOTE | 2018-04-02 14:46 | CON.PULM ---
Consult Consult Specialty:: PULM/CCM Referred by:: RADHA Reason for Consultation:: SOB / CP - History of Present Illness Chief Complaint: CP / SOB / Hip pain History of Present Illness: 67 F, well known to our service. COPD due to previous smoking history, HTN, Paroxysmal AFib, DM2, Diabetic Nephropathy, CKD, Mantel Cell Lymphoma not on treatment, ITP s/p spleenectomy, S/P recent right THR. Presented to the ER with band like chest tightness that is worsened with deep breathing and activity. She does report some exertion chest discomfort as well. Started on IV Heparin protocol. Apparently no VTE prophylaxis at rehab. CXR: LLL atelectasis. - History Source History Provided By: Patient Limitations to Obtaining History: No Limitations - Past Medical History Cardio/Vascular: Yes: HTN. No: AFIB Pulmonary: Yes: COPD, Other (elevated left hemidiaphragm) Gastrointestinal: Yes: Diverticulitis (osteoarthritis right hip). No: Ascites Hepatobiliary: No: Cirrhosis Renal/: Yes: Renal Calculi, UTI, Other (bladder dysfunction). No: Renal Failure Psych: Yes: Anxiety, Depression Musculoskeletal: Yes: Chronic low back pain, Osteoarthritis (right hip) Rheumatology: Yes: Other (degenerative spine disease) Endocrine: Yes: Diabetes Mellitus Additional Medical History: ITP, Mantle Cell Lymphoma - Past Surgical History Past Surgical History: Yes: Laminectomy (cervical laminectomy x2 (2002)), Splenectomy, Thoracotomy - Alcohol/Substance Use Hx Alcohol Use: No History of Substance Use: reports: None - Smoking History Smoking history: Never smoked Have you smoked in the past 12 months: No Aproximately how many cigarettes per day: 0 If you are a former smoker, when did you quit?: 2001 - Social History Usual Living Arrangement: Other ADL: Independent 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, , 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 History of Recent Travel: No Home Medications - Allergies Allergies/Adverse Reactions: Allergies Allergy/AdvReac Type Severity Reaction Status Date / Time pregabalin [From Lyrica] Allergy Severe Swelling Verified 03/31/18 21:24 ciprofloxacin HCl Allergy Intermediate Itching Verified 03/31/18 21:24 [From Cipro] levofloxacin [From Levaquin] Allergy Intermediate Rash Verified 03/31/18 21:24 atorvastatin calcium Allergy Mild muscle Verified 03/31/18 21:24 [From Lipitor] aches - Home Medications Home Medications: Ambulatory Orders Sertraline HCl [Zoloft -] 50 mg PO DAILY 08/28/14 Alprazolam [Xanax] 0.5 mg PO Q8H PRN #0 tablet 09/10/14 Pantoprazole Sodium [Protonix -] 40 mg PO DAILY #0 tablet.ec 09/10/14 Allopurinol [Zyloprim -] 150 mg PO DAILY #60 tablet 04/07/16 Albuterol Sulfate Inhaler - [Ventolin HFA Inhaler -] 1 - 2 inh PO PRN 08/09/16 Docusate Sodium [Colace -] 100 mg PO BID #60 tab-cap 10/29/16 Sitagliptin Phosphate [Januvia] 50 mg PO DAILY 03/18/17 Acetaminophen [Tylenol .Regular Strength -] 650 mg PO PRN 05/26/17 Calcium Carbonate - 650 mg PO BID #60 tablet 08/31/17 Morphine *Sr* [MS Contin -] 60 mg PO TID #60 tab.sa MDD 180mg 08/31/17 Morphine Sulfate 15 mg PO QID PRN #30 tablet MDD 60mg 08/31/17 Amlodipine Besylate [Norvasc -] 5 mg PO DAILY #30 tablet 09/25/17 Budesonide/Formeterol Fumarate [SYMBICORT 160/4.5mcg -] 2 puff IH BID #1 inhaler 09/25/17 Metoprolol Tartrate [Lopressor -] 25 mg PO BID #60 tablet 09/25/17 Atovaquone [Mepron Oral Solution -] 1,500 mg PO DAILY@0800 #1 bottle 10/25/17 Furosemide [Lasix -] 40 mg PO DAILY #30 tablet 10/25/17 Glyburide 4 mg PO DAILY 03/19/18 Rituximab [Rituxan -] 0 mg IVPB Q2M 03/19/18 Family Disease History - Family Disease History Family Disease History: Diabetes: Mother, Heart Disease: Mother, Other: Father ( thrombocytopenia), Daughter (hypothyroidism) Review of Systems - Review of Systems Constitutional: reports: Malaise, Weakness. denies: Chills, Fever, Loss of Appetite, Night Sweats Eyes: reports: No Symptoms HENT: reports: No Symptoms Neck: reports: No Symptoms Cardiovascular: reports: Chest Pain, Edema, Palpitations, Shortness of Breath Respiratory: reports: Cough, Orthopnea, Snoring, SOB, SOB on Exertion. denies: Hemoptysis, Wheezing Gastrointestinal: reports: No Symptoms Genitourinary: reports: No Symptoms Breasts: reports: No Symptoms Reported Musculoskeletal: reports: Back Pain, Decreased ROM, Extremity Pain, Joint Pain, Joint Swelling, Muscle Pain, Muscle Cramps Integumentary: reports: No Symptoms Neurological: reports: No Symptoms Endocrine: reports: No Symptoms Hematology/Lymphatic: reports: No Symptoms Psychiatric: reports: No Symptoms Physical Exam Vital Sings: Vital Signs Temperature 98.0 F 04/02/18 06:30 Pulse Rate 66 04/02/18 11:03 Respiratory Rate 16 04/02/18 11:03 Blood Pressure 114/44 L 04/02/18 11:03 O2 Sat by Pulse Oximetry (%) 95 04/02/18 11:03 Constitutional: Yes: Mild Distress, Obese Eyes: Yes: Conjunctiva Clear, EOM Intact HENT: Yes: Atraumatic, Normocephalic Neck: Yes: Supple, Trachea Midline Cardiovascular: Yes: Regular Rate and Rhythm Respiratory: Yes: Cough, Diminished, Dullness, SOB, SOB on Exertion, Tachypnea. No: Accessory Muscle Use, Rales, Rhonchi, Stridor, Wheezes ...Inspection: Yes: WNL ...Clubbing: No Gastrointestinal: Yes: Normal Bowel Sounds, Soft, Hepatomegaly Musculoskeletal: Yes: Joint Stiffness, Joint Swelling, Muscle Pain Extremities: Yes: WNL Edema: Yes Peripheral Pulses WNL: Yes Integumentary: Yes: WNL Neurological: Yes: Alert, Oriented ...Motor Strength: WNL Psychiatric: Yes: WNL, Alert, Oriented Labs: CBC, BMP 04/02/18 07:00 04/02/18 07:00 Imaging - Results Chest X-ray: Report Reviewed, Image Reviewed Problem List - Problems (1) Chest pain Code(s): R07.9 - CHEST PAIN, UNSPECIFIED Qualifiers: Chest pain type: precordial pain Qualified Code(s): R07.2 - Precordial pain (2) Hip pain, right Code(s): M25.551 - PAIN IN RIGHT HIP (3) Status post total hip replacement, right Code(s): Z96.641 - PRESENCE OF RIGHT ARTIFICIAL HIP JOINT (4) Anemia Code(s): D64.9 - ANEMIA, UNSPECIFIED Qualifiers: Anemia type: iron deficiency Iron deficiency anemia type: chronic blood loss Qualified Code(s): D50.0 - Iron deficiency anemia secondary to blood loss (chronic) (5) Atelectasis Code(s): J98.11 - ATELECTASIS (6) CKD (chronic kidney disease) Code(s): N18.9 - CHRONIC KIDNEY DISEASE, UNSPECIFIED Qualifiers: Chronic kidney disease stage: stage 3 (moderate) Qualified Code(s): N18.3 - Chronic kidney disease, stage 3 (moderate) (7) COPD (chronic obstructive pulmonary disease) Code(s): J44.9 - CHRONIC OBSTRUCTIVE PULMONARY DISEASE, UNSPECIFIED (8) Chronic ITP (idiopathic thrombocytopenia) Code(s): D69.3 - IMMUNE THROMBOCYTOPENIC PURPURA (9) Chronic kidney disease Code(s): N18.9 - CHRONIC KIDNEY DISEASE, UNSPECIFIED Qualifiers: (10) Diabetes mellitus Code(s): E11.9 - TYPE 2 DIABETES MELLITUS WITHOUT COMPLICATIONS Qualifiers: Diabetes mellitus type: drug or chemical induced Diabetes mellitus complication status: without complication (11) Diaphragmatic hernia Code(s): K44.9 - DIAPHRAGMATIC HERNIA WITHOUT OBSTRUCTION OR GANGRENE Qualifiers: Obstruction and gangrene presence: without obstruction or gangrene Qualified Code(s): K44.9 - Diaphragmatic hernia without obstruction or gangrene (12) HTN (hypertension) Code(s): I10 - ESSENTIAL (PRIMARY) HYPERTENSION Qualifiers: Hypertension type: essential hypertension Qualified Code(s): I10 - Essential (primary) hypertension (13) History of immunocompromised state Code(s): Z86.2 - PRSNL HISTORY OF DIS OF THE BLD/BLD-FORM ORG/IMMUN MECHNSM (14) ITP (idiopathic thrombocytopenic purpura) Code(s): D69.3 - IMMUNE THROMBOCYTOPENIC PURPURA (15) Mantle cell lymphoma Code(s): C83.10 - MANTLE CELL LYMPHOMA, UNSPECIFIED SITE Qualifiers: Lymphoma site: unspecified region Qualified Code(s): C83.10 - Mantle cell lymphoma, unspecified site (16) Obesity (BMI 35.0-39.9 without comorbidity) Code(s): E66.9 - OBESITY, UNSPECIFIED (17) Osteoarthritis Code(s): M19.90 - UNSPECIFIED OSTEOARTHRITIS, UNSPECIFIED SITE (18) 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 (19) SOB (shortness of breath) Code(s): R06.02 - SHORTNESS OF BREATH (20) Spinal stenosis Code(s): M48.00 - SPINAL STENOSIS, SITE UNSPECIFIED (21) T2DM (type 2 diabetes mellitus) Code(s): E11.9 - TYPE 2 DIABETES MELLITUS WITHOUT COMPLICATIONS Qualifiers: Diabetes mellitus custodial insulin use: without custodial use Diabetes mellitus complication status: without complication Qualified Code(s): E11.9 - Type 2 diabetes mellitus without complications Assessment/Plan IMP: R/O PE : due to recent surgery, immobilization, no VTE prophylaxis, and high risk PLAN: V/Q imaging due to elevated creatinine LE doppler O2 as needed Agree with IV Heparin per protocol Pain control Incentive Spirometry Due not suspect PNA: monitor off ABX Telemetry monitoring Will follow Thank you. Dr Nobles
[2018-04-02] MEDS ORDERED: HEPARIN INFUSION - 25,000 UNITS/500 ML INFUS.BAG IVPB ONE (15:18)
--- NOTE | 2018-04-02 15:26 | CONSULT ---
Consult Consult Specialty:: Heme/Onc Referred by:: Dr. Ward Reason for Consultation:: history of ITP now need AC - History of Present Illness Chief Complaint: chest pain History of Present Illness: 67F history of HTN, paroxysmal A fib, DM2, diabetic nephropathy, CKD stage 4, mantle cell lymphoma, ITP s/p splenectomy with platelets WNL on Rituximab every [address] mills, presents to the hospital with chest pain. patient had recent right total hip replacement and was doing PT in [facility] when all of a sudden she started to have chest pain and shortness of breath. She describes the pain as chest tightness which gets worse with any exertion. Concern for DVT/ PE given recent surgery, being more bed bound than usual, and no DVT Prophylaxis. An US duplex was done but her calves were too tender to be compressed per patient. Read is pending. CTA can not be done due to CKD and patient is pending a V/Q scan. In the meantime given high suspicion she was started on heparin gtt. She denies easy bruising. She states her legs are always a bit swollen. - History Source History Provided By: Patient, Medical Record - Past Medical History Cardio/Vascular: Yes: HTN. No: AFIB Pulmonary: Yes: COPD, Other (elevated left hemidiaphragm) Gastrointestinal: Yes: Diverticulitis (osteoarthritis right hip). No: Ascites Hepatobiliary: No: Cirrhosis Renal/: Yes: Renal Calculi, UTI, Other (bladder dysfunction). No: Renal Failure Psych: Yes: Anxiety, Depression Musculoskeletal: Yes: Chronic low back pain, Osteoarthritis (right hip) Rheumatology: Yes: Other (degenerative spine disease) Endocrine: Yes: Diabetes Mellitus Additional Medical History: ITP, Mantle Cell Lymphoma - Past Surgical History Past Surgical History: Yes: Laminectomy (cervical laminectomy x2 (2002)), Splenectomy, Thoracotomy - Alcohol/Substance Use Hx Alcohol Use: No History of Substance Use: reports: None - Smoking History Smoking history: Never smoked Have you smoked in the past 12 months: No Aproximately how many cigarettes per day: 0 If you are a former smoker, when did you quit?: 2001 - Social History Usual Living Arrangement: Other ADL: Independent 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, , 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 History of Recent Travel: No Home Medications - Allergies Allergies/Adverse Reactions: Allergies Allergy/AdvReac Type Severity Reaction Status Date / Time pregabalin [From Lyrica] Allergy Severe Swelling Verified 03/31/18 21:24 ciprofloxacin HCl Allergy Intermediate Itching Verified 03/31/18 21:24 [From Cipro] levofloxacin [From Levaquin] Allergy Intermediate Rash Verified 03/31/18 21:24 atorvastatin calcium Allergy Mild muscle Verified 03/31/18 21:24 [From Lipitor] aches - Home Medications Home Medications: Ambulatory Orders Sertraline HCl [Zoloft -] 50 mg PO DAILY 08/28/14 Alprazolam [Xanax] 0.5 mg PO Q8H PRN #0 tablet 09/10/14 Pantoprazole Sodium [Protonix -] 40 mg PO DAILY #0 tablet.ec 09/10/14 Allopurinol [Zyloprim -] 150 mg PO DAILY #60 tablet 04/07/16 Albuterol Sulfate Inhaler - [Ventolin HFA Inhaler -] 1 - 2 inh PO PRN 08/09/16 Docusate Sodium [Colace -] 100 mg PO BID #60 tab-cap 10/29/16 Sitagliptin Phosphate [Januvia] 50 mg PO DAILY 03/18/17 Acetaminophen [Tylenol .Regular Strength -] 650 mg PO PRN 05/26/17 Calcium Carbonate - 650 mg PO BID #60 tablet 08/31/17 Morphine *Sr* [MS Contin -] 60 mg PO TID #60 tab.sa MDD 180mg 08/31/17 Morphine Sulfate 15 mg PO QID PRN #30 tablet MDD 60mg 08/31/17 Amlodipine Besylate [Norvasc -] 5 mg PO DAILY #30 tablet 09/25/17 Budesonide/Formeterol Fumarate [SYMBICORT 160/4.5mcg -] 2 puff IH BID #1 inhaler 09/25/17 Metoprolol Tartrate [Lopressor -] 25 mg PO BID #60 tablet 09/25/17 Atovaquone [Mepron Oral Solution -] 1,500 mg PO DAILY@0800 #1 bottle 10/25/17 Furosemide [Lasix -] 40 mg PO DAILY #30 tablet 10/25/17 Glyburide 4 mg PO DAILY 03/19/18 Rituximab [Rituxan -] 0 mg IVPB Q2M 03/19/18 Family Disease History - Family Disease History Family Disease History: Diabetes: Mother, Heart Disease: Mother, Other: Father ( thrombocytopenia), Daughter (hypothyroidism) Review of Systems - Review of Systems Constitutional: reports: No Symptoms Eyes: reports: No Symptoms HENT: reports: No Symptoms Neck: reports: No Symptoms Cardiovascular: reports: Chest Pain, Shortness of Breath Respiratory: reports: SOB on Exertion Gastrointestinal: reports: No Symptoms Genitourinary: reports: No Symptoms Breasts: reports: No Symptoms Reported Hematology/Lymphatic: reports: No Symptoms Psychiatric: reports: No Symptoms Physical Exam Vital Signs: Vital Signs Temperature 98.0 F 04/02/18 06:30 Pulse Rate 66 04/02/18 11:03 Respiratory Rate 16 04/02/18 11:03 Blood Pressure 114/44 L 04/02/18 11:03 O2 Sat by Pulse Oximetry (%) 95 04/02/18 11:03 Constitutional: Yes: No Distress, Calm, Obese Eyes: Yes: EOM Intact, PERRL HENT: Yes: Atraumatic, Normocephalic Neck: Yes: Supple. No: Lymphadenopathy Cardiovascular: Yes: Regular Rate and Rhythm Respiratory: Yes: Regular, CTA Bilaterally Gastrointestinal: Yes: Soft, Abdomen, Obese Breast(s): Yes: Other (no axillary lymphadenopathy) Extremities: Yes: Calf Tenderness (right calf tenderness. positive homans sign on right.), Other (no inguinal lymphadenopathy) Edema: Yes Edema: LLE: Trace, RLE: Trace Neurological: Yes: Alert, Oriented Psychiatric: Yes: Alert, Oriented Labs: CBC, BMP 04/02/18 07:00 04/02/18 07:00 Imaging - Results Chest X-ray: Report Reviewed, Image Reviewed Assessment/Plan 67F with multiple medical problems, recent right THR, presents to the hospital with chest tightness and dyspnea on exertion, concern for PE, on heparin gtt. Problem List: Chest pain r/o PE Trop negative x3 HTN DM CKD stage 4 ITP Diabetic nephropathy mantle cell lymphoma s/p splenectomy Plan: Given recent surgery, being more bed bound than usual and lack of DVT PPx agree with empiric heparin gtt trend PTT f/u Duplex bilateral LE to r/o DVT f/u VQ scan to r/o PE will follow with you thank you for this consultative opportunity .
[2018-04-02] MEDS ORDERED: HEPARIN NA (PORCINE) 5,000 UNITS/ML 1ML VIAL IVPUSH PRN (16:33)
[2018-04-02] MEDS: ACETAMINOPHEN 325 MG TABLET (FP) PO PRN (17:33)
[2018-04-02 18:42] VITALS: BMI 38.3
[2018-04-02] MEDS ORDERED: PT OWN MED DRAWER 7, Y5N ONE (21:14)
[2018-04-02] MEDS: ALPRAZolam 0.25 MG TABLET PO PRN (21:18)
--- NOTE | 2018-04-02 21:34 | CONSULT ---
Consult - text type - Consultation Consultation Note: Pt is a 67yo f with PMH of ITP s/p splenectomy,mantle cell lymphoma, CKD, DM, HTN, R hip replacement 7 days ago BIBA for chest pain and R hip pain. On heparin drip for presumed PE while awaiting V/Q scan No abdominal pain/diaarhea/nausea/vomiting/urinary symptoms Allergies/Adverse Reactions: Allergies Allergy/AdvReac Type Severity Reaction Status Date / Time pregabalin [From Lyrica] Allergy Severe Swelling Verified 03/31/18 21:24 ciprofloxacin HCl Allergy Intermediate Itching Verified 03/31/18 21:24 [From Cipro] levofloxacin [From Levaquin] Allergy Intermediate Rash Verified 03/31/18 21:24 atorvastatin calcium Allergy Mild muscle Verified 03/31/18 21:24 [From Lipitor] aches Home Medications: Ambulatory Orders Sertraline HCl [Zoloft -] 50 mg PO DAILY 08/28/14 Alprazolam [Xanax] 0.5 mg PO Q8H PRN #0 tablet 09/10/14 Pantoprazole Sodium [Protonix -] 40 mg PO DAILY #0 tablet.ec 09/10/14 Allopurinol [Zyloprim -] 150 mg PO DAILY #60 tablet 04/07/16 Albuterol Sulfate Inhaler - [Ventolin HFA Inhaler -] 1 - 2 inh PO PRN 08/09/16 Docusate Sodium [Colace -] 100 mg PO BID #60 tab-cap 10/29/16 Sitagliptin Phosphate [Januvia] 50 mg PO DAILY 03/18/17 Acetaminophen [Tylenol .Regular Strength -] 650 mg PO PRN 05/26/17 Calcium Carbonate - 650 mg PO BID #60 tablet 08/31/17 Morphine *Sr* [MS Contin -] 60 mg PO TID #60 tab.sa MDD 180mg 08/31/17 Morphine Sulfate 15 mg PO QID PRN #30 tablet MDD 60mg 08/31/17 Amlodipine Besylate [Norvasc -] 5 mg PO DAILY #30 tablet 09/25/17 Budesonide/Formeterol Fumarate [SYMBICORT 160/4.5mcg -] 2 puff IH BID #1 inhaler 09/25/17 Metoprolol Tartrate [Lopressor -] 25 mg PO BID #60 tablet 09/25/17 Atovaquone [Mepron Oral Solution -] 1,500 mg PO DAILY@0800 #1 bottle 10/25/17 Furosemide [Lasix -] 40 mg PO DAILY #30 tablet 10/25/17 Glyburide 4 mg PO DAILY 03/19/18 Rituximab [Rituxan -] 0 mg IVPB Q2M 03/19/18 PMH Asthma: Yes Cancer: Yes (lymphoma) Cardiac Disorders: (SOB) Diabetes: Yes (niddm) GI Disorders: Yes (DIVERTICULOSIS) Disorders: Yes (renal calculi) HTN: Yes Hypercholesterolemia: Yes - Surgical History Abdominal Surgery: Yes (SPLENECTOMY) Neurologic Surgery: Yes (cervical laminectomy x 2) Orthopedic Surgery: Yes (Anterior and posterior cervical laminectomy with fusion ) - Suicide/Smoking/Psychosocial Hx Smoking History: Never smoked - Vital Signs AFVSS Cor: RSR, No murmurs, No gallops Lungs: Clear to P&A Abd: Soft, Normal bowel sounds, No organomegaly Ext:No significant edema Labs/MEds reviewed A/P 67yo f with PMH of ITP s/p splenectomy,mantle cell lymphoma, CKD, DM, HTN, R hip replacement 4 days ago BIBA for chest pain and R hip pain. ITP is in remission after IVIG/rituxan and maintenance rituxan Recent hip replacement 1 week ago On heparin drip while ruling out PE. Awaiting V/Q. Unable to do CTA due to CKD Pulmonary consulted will follow
[2018-04-03] MEDS: morphine SULFATE IMMEDIATE RELEASE 30 MG TAB PO PRN ×3 (00:56→15:01)
[2018-04-03] MEDS ORDERED: PT OWN MED DRAWER 7, Y5N ONE ×4 (05:25→12:59)
[2018-04-03] MEDS: morphine SO4 SUSTAINED ACTING 30 MG TABLET.SA PO SCH ×3 (05:43→21:01)
[2018-04-03] MEDS: ACETAMINOPHEN 325 MG TABLET (FP) PO PRN (06:36)
[2018-04-03 06:46] LABS: BASO % 1.1 % (0-2.0); EOS % 6.3 % (0-4.5); HEMATOCRIT 27.1 % (32.4-45.2); HEMOGLOBIN 8.5 GM/dL (10.7-15.3); LYMPH % 14.5 % (8-40); MCH 27.4 pg (25.7-33.7); MCHC 31.4 g/dl (32.0-36.0); MEAN CELL VOLUME 87.2 fl (80-96); MEAN PLT VOLUME 9.1 fl (7.5-11.1); MONO % 11.1 % (3.8-10.2); PLATELET COUNT 321 K/MM3 (134-434); RBC 3.11 M/mm3 (3.60-5.2); RDW 17.5 % (11.6-15.6); WHITE BLOOD COUNT 13.9 K/mm3 (4.0-10.0)
[2018-04-03] MEDS: GLIMEPIRIDE 4 MG TABLET (FP) PO SCH (07:15)
[2018-04-03 07:48] LABS: ANION GAP 13 MMOL/L (8-16); BLOOD UREA NITROGEN 33 mg/dL (7-18); CHLORIDE 101 mmol/L (98-107); CO2 24 mmol/L (21-32); CREATININE 1.8 mg/dL (0.55-1.3); GLUCOSE,RANDOM 116 mg/dL (74-106); POTASSIUM 3.9 mmol/L (3.5-5.1); SODIUM 138 mmol/L (136-145)
--- NOTE | 2018-04-03 07:49 | PN ---
Progress Note (short form) - Note Progress Note: Chief Complaint: Events noted, notes reviewed, reports dyspnea and cough, denies any orthopnea or PND, denies any further chest discomfort, complaining of right hip site muscular cramping discomfort History of Present Illness: Seen and examined on telemetry. Events noted, notes reviewed, reports dyspnea and cough, denies any orthopnea or PND, denies any further chest discomfort, complaining of right hip site muscular cramping discomfort Echocardiography yesterday was limited revealed normal LV size and function with LVEF 60-65%, RV not visualized, MAC, AVS, valvular regurgitation could not be assessed Echocardiography dated 08/18/2017 revealed normal bi-ventricular size and function, mild MR and TR - Current Medication List Current Medications Acetaminophen (Tylenol -) 650 mg PO Q6H PRN PRN Reason: FEVER/PAIN LEVEL 1-5 Last Admin: 04/03/18 06:36 Dose: 650 mg Albuterol Sulfate (Ventolin Hfa Inhaler -) 2 puff IH Q4H PRN PRN Reason: SHORTNESS OF BREATH Allopurinol (Zyloprim -) 150 mg PO DAILY [facility] Last Admin: 04/02/18 10:25 Dose: 150 mg Alprazolam (Xanax -) 0.5 mg PO Q8H PRN PRN Reason: ANXIETY Last Admin: 04/02/18 21:18 Dose: 0.5 mg Amlodipine Besylate (Norvasc -) 5 mg PO DAILY [facility] Last Admin: 04/02/18 10:25 Dose: 5 mg Atovaquone (Mepron -) 1,500 mg PO DAILY@0800 [facility] Last Admin: 04/02/18 10:08 Dose: 1,500 mg Budesonide/Formoterol Fumarate (Symbicort 160/4.5mcg -) 2 puff IH BID [facility] Last Admin: 04/02/18 21:44 Dose: 2 puff Calcium Carbonate (Calcium Carbonate -) 650 mg PO BID [facility] Last Admin: 04/02/18 21:43 Dose: 650 mg Docusate Sodium (Colace -) 100 mg PO BID [facility] Last Admin: 04/02/18 21:18 Dose: 100 mg Furosemide (Lasix -) 40 mg PO DAILY [facility] Last Admin: 04/02/18 10:25 Dose: 40 mg Glimepiride (Amaryl -) 4 mg PO DAILY@0700 [facility] Last Admin: 04/03/18 07:15 Dose: 4 mg Heparin Sodium (Porcine) (Heparin -) 1,000 unit IVPUSH PRN PRN PRN Reason: Heparin Last Admin: 04/02/18 23:49 Dose: 1,000 unit Heparin Sodium (Porcine) (Heparin -) 5,000 unit IVPUSH PRN PRN PRN Reason: Heparin Heparin Sodium (Porcine) 25, (000 unit/ Sodium Chloride) 500 mls @ 20 mls/hr IV TITR [facility]; Protocol Last Admin: 04/02/18 23:49 Dose: 1,650 unit/hr, 33 mls/hr Metoprolol Tartrate (Lopressor -) 25 mg PO BID [facility] Last Admin: 04/02/18 21:20 Dose: Not Given Morphine Sulfate (Ms Contin -) 60 mg PO TID [facility] Last Admin: 04/03/18 05:43 Dose: 60 mg Morphine Sulfate (Msir -) 15 mg PO Q6H PRN PRN Reason: BREAKTHROUGH PAIN 6-10 Last Admin: 04/03/18 00:56 Dose: 15 mg Pantoprazole Sodium (Protonix -) 40 mg PO DAILY [facility] Last Admin: 04/02/18 10:25 Dose: 40 mg Review of Systems Cardiovascular: As noted above Respiratory: reports: Cough but denies Sputum Production Gastrointestinal: denies: Nausea, Vomiting, Diarrhea, Constipation or Abdominal Discomfort Musculoskeletal: No Symptoms Reported Endocrine: Diabetes Mellitus - Objective Vital Signs: Last Vital Signs Temp Pulse Resp BP Pulse Ox 97.8 F 83 20 157/98 97 04/03/18 06:00 04/03/18 06:00 04/03/18 06:00 04/03/18 06:00 04/02/18 21:00 Intake & Output 03/31/18 04/01/18 04/02/18 04/03/18 23:59 23:59 23:59 23:59 Weight 250 lb 245 lb Constitutional: No Distress, Calm, Obese Neck: Supple Negative JVD No Bruit Respiratory: Diminished Breath Sounds at the Bases Bilaterally Cardiovascular: S1 S2 Regular Rate and Rhythm Grade 1-2/6 DAYNE Gastrointestinal: Soft Benign Normal Bowel Sounds Ext: Trace Edema Labs: CBC, BMP 04/03/18 06:00 Hepatic Panel Total Bilirubin 0.2 mg/dL (0.2-1) 04/02/18 07:00 AST 32 U/L (15-37) 04/02/18 07:00 ALT 10 U/L (13-61) L 04/02/18 07:00 Alkaline Phosphatase 84 U/L (45-117) 04/02/18 07:00 Albumin 2.3 g/dl (3.4-5.0) L 04/02/18 07:00 Assessment/Plan ASSESSMENT: 1. Chest pain syndrome, to rule out PTE post operatively, post recent right Total Hip Replacement 2. CAD angina pectoris stable 3. History of diastolic LV dysfunction with chronic class I-II NYHA classification LV failure, clinically compensated/euvolemic 4. HTN 5. Diabetes mellitus 6. Hypercholesterolemia 7. History of COPD 8. CKD 9. History of thrombocytopenia post splenectomy, history of ITP 10. History of Mantle cell lymphoma 11. History of degenerative joint disease 12. Morbid obesity PLAN: 1. Await venous Duplex study and VQ scan to evaluate for PTE, CTA should be avoided considering her CKD 2. Continue Lopressor and titrate dose as needed and as tolerated 3. Continue Norvasc 4. Continue Diuretics/Lasix with caution and close monitoring of renal function 5. Ideally ACEI or ARBS are recommended unless absolutely contraindicated with close monitoring of renal function, once renal function at baseline 6. Continue heparin pending completion of the above noted studies Nick Medina M.D. PLAN: 1. F/u V/Q scan and LE dopplers r/o DVT/PE, maintain on heparin gtt for now 2. Continue Lopressor 25 bid and Norvasc 5 qd 3. Continue Lasix 40 qd with close monitoring of renal function and electrolytes 4. Analgesia as needed, PT as tolerated 5. Ideally ACEI or ARBS are recommended once renal function at baseline 6. Recommend pharmacologic MPI study as outpatient once clinically stable 7. Thank you for consultative opportunity
--- NOTE | 2018-04-03 07:51 | PN ---
Progress Note, Physician Chief Complaint: C/O Rt Hip Pain and spasms, no SOB - Current Medication List Current Medications: Active Medications Home Medication List Medication Instructions Recorded Confirmed Type Sertraline HCl [Zoloft -] 50 mg PO DAILY 08/28/14 04/01/18 History Albuterol Sulfate Inhaler - 1 - 2 inh PO PRN 08/09/16 04/01/18 History [Ventolin HFA Inhaler -] Sitagliptin Phosphate [Januvia] 50 mg PO DAILY 03/18/17 04/01/18 History Acetaminophen [Tylenol .Regular 650 mg PO PRN 05/26/17 04/01/18 History Strength -] Glyburide 4 mg PO DAILY 03/19/18 04/01/18 History Rituximab [Rituxan -] 0 mg IVPB Q2M 03/19/18 04/01/18 History Active Medications Active Medications Acetaminophen (Tylenol -) 650 mg PO Q6H PRN PRN Reason: FEVER/PAIN LEVEL 1-5 Last Admin: 04/03/18 06:36 Dose: 650 mg Albuterol Sulfate (Ventolin Hfa Inhaler -) 2 puff IH Q4H PRN PRN Reason: SHORTNESS OF BREATH Allopurinol (Zyloprim -) 150 mg PO DAILY [facility] Last Admin: 04/02/18 10:25 Dose: 150 mg Alprazolam (Xanax -) 0.5 mg PO Q8H PRN PRN Reason: ANXIETY Last Admin: 04/02/18 21:18 Dose: 0.5 mg Amlodipine Besylate (Norvasc -) 5 mg PO DAILY [facility] [place] Last Admin: 04/02/18 10:25 Dose: 5 mg Atovaquone (Mepron -) 1,500 mg PO DAILY@0800 [facility] Last Admin: 04/02/18 10:08 Dose: 1,500 mg Baclofen (Lioresal -) 10 mg PO TID [facility] Budesonide/Formoterol Fumarate (Symbicort 160/4.5mcg -) 2 puff IH BID [facility] [place] Last Admin: 04/02/18 21:44 Dose: 2 puff Calcium Carbonate (Calcium Carbonate -) 650 mg PO BID [facility] [place] Last Admin: 04/02/18 21:43 Dose: 650 mg Docusate Sodium (Colace -) 100 mg PO BID [facility] [place] Last Admin: 04/02/18 21:18 Dose: 100 mg Furosemide (Lasix -) 40 mg PO DAILY [facility] [place] Last Admin: 04/02/18 10:25 Dose: 40 mg Glimepiride (Amaryl -) 4 mg PO DAILY@0700 [facility] [place] Last Admin: 04/03/18 07:15 Dose: 4 mg Heparin Sodium (Porcine) (Heparin -) 1,000 unit IVPUSH PRN PRN PRN Reason: Heparin Last Admin: 04/02/18 23:49 Dose: 1,000 unit Heparin Sodium (Porcine) (Heparin -) 5,000 unit IVPUSH PRN PRN PRN Reason: Heparin Heparin Sodium (Porcine) 25, (000 unit/ Sodium Chloride) 500 mls @ 20 mls/hr IV TITR [facility]; Protocol Last Admin: 04/02/18 23:49 Dose: 1,650 unit/hr, 33 mls/hr Metoprolol Tartrate (Lopressor -) 50 mg PO BID [facility] [place] Morphine Sulfate (Ms Contin -) 60 mg PO TID [facility] Last Admin: 04/03/18 05:43 Dose: 60 mg Morphine Sulfate (Msir -) 15 mg PO Q6H PRN PRN Reason: BREAKTHROUGH PAIN 6-10 Last Admin: 04/03/18 00:56 Dose: 15 mg Pantoprazole Sodium (Protonix -) 40 mg PO DAILY [facility] [place] Last Admin: 04/02/18 10:25 Dose: 40 mg - Objective Vital Signs: Vital Signs Temperature 97.8 F 04/03/18 06:00 Pulse Rate 83 04/03/18 06:00 Respiratory Rate 20 04/03/18 06:00 Blood Pressure 157/98 04/03/18 06:00 O2 Sat by Pulse Oximetry (%) 97 04/02/18 21:00 Elderly F not in distress c/o RT Hip Pian no c/o CP or SOB HEENT: Mm moist, anemia, PERRLA EOMI NECK: No JVD No Bruit CHEST: Mild sternal tenderness, minimal Basal crept CVS; S1S2 R no m/g/r ABD: Obese, Left ant abd wall Hernia, BS + EXT: Rt Hip THR , Pulses +, Rt Le swelling + [employer]: AOx3 non focal Labs: CBC, BMP 04/03/18 06:00 INR, PTT INR 1.00 (0.83-1.09) 04/02/18 07:00 Problem List - Problems (1) Chest pain Assessment/Plan: Patient present with sharp reproducible chest pain while doing PT no associated SOB , Hypoxia or Palpitation, less likely ACS serial CE and EKG unremarkable will cont Home medication, considering recent surgery and not on DVT prophylaxis risk of VTE is High unfortunately unable to perform CT chest with IV Contrast due to advanced renal failure so patient was put on AC will F/U LE Doppler, VQ scan and Hematology input before DC AC mean time cont Heparin infusion Code(s): R07.9 - CHEST PAIN, UNSPECIFIED Qualifiers: Chest pain type: precordial pain Qualified Code(s): R07.2 - Precordial pain (2) Acute on chronic renal failure Assessment/Plan: Due to dehydration recived IV Hydration all meds renally adjusted renal consult F/U BMP Code(s): N17.9 - ACUTE KIDNEY FAILURE, UNSPECIFIED; N18.9 - CHRONIC KIDNEY DISEASE, UNSPECIFIED Qualifiers: Chronic kidney disease stage: stage 4 (severe) (3) Hip pain, right Assessment/Plan: S/P THR on Last Monday will f/u PT and ortho input. Code(s): M25.551 - PAIN IN RIGHT HIP (4) COPD (chronic obstructive pulmonary disease) Assessment/Plan: Stable cont all home meds Code(s): J44.9 - CHRONIC OBSTRUCTIVE PULMONARY DISEASE, UNSPECIFIED (5) HTN (hypertension) Assessment/Plan: Well controlled cont all home meds Code(s): I10 - ESSENTIAL (PRIMARY) HYPERTENSION Qualifiers: Hypertension type: essential hypertension Qualified Code(s): I10 - Essential (primary) hypertension (6) Diabetes mellitus Assessment/Plan: Resume home meds Code(s): E11.9 - TYPE 2 DIABETES MELLITUS WITHOUT COMPLICATIONS Qualifiers: Diabetes mellitus type: drug or chemical induced Diabetes mellitus complication status: without complication (7) History of immunocompromised state Assessment/Plan: On Mepron Code(s): Z86.2 - PRSNL HISTORY OF DIS OF THE BLD/BLD-FORM ORG/IMMUN MECHNSM (8) Mantle cell lymphoma Assessment/Plan: In remission Code(s): C83.10 - MANTLE CELL LYMPHOMA, UNSPECIFIED SITE Qualifiers: Lymphoma site: unspecified region Qualified Code(s): C83.10 - Mantle cell lymphoma, unspecified site (9) Elevated WBC count Assessment/Plan: trending normal most likely reactive Code(s): D72.829 - ELEVATED WHITE BLOOD CELL COUNT, UNSPECIFIED (10) Chronic pain Assessment/Plan: On Pain medication cont same dose of Oxycontin Code(s): G89.29 - OTHER CHRONIC PAIN Qualifiers: Chronic pain type: chronic pain syndrome Qualified Code(s): G89.4 - Chronic pain syndrome (11) Chronic ITP (idiopathic thrombocytopenia) Assessment/Plan: In remission on Rituximab platelet are stable Code(s): D69.3 - IMMUNE THROMBOCYTOPENIC PURPURA (12) Status post total hip replacement, right Assessment/Plan: PT, Pian medications add Baclofen 10 mg TID, ortho consult. Code(s): Z96.641 - PRESENCE OF RIGHT ARTIFICIAL HIP JOINT
[2018-04-03] MEDS: ALPRAZolam 0.25 MG TABLET PO PRN ×2 (09:49→21:01)
[2018-04-03] MEDS: FUROSEMIDE 40 MG TABLET (FP) PO SCH (09:51)
[2018-04-03] MEDS: PANTOPRAZOLE 40 MG TABLET (FP) PO SCH (09:51)
[2018-04-03] MEDS: ALLOPURINOL 100 MG TABLET (FP) PO SCH (09:51)
[2018-04-03] MEDS: DOCUSATE SODIUM 100 MG CAPSULE (FP) PO SCH ×2 (09:51→21:01)
[2018-04-03] MEDS: ATOVAQUONE 750 MG/5 ML (UNIT-DOSE PACKAGING) PO SCH (09:52)
[2018-04-03] MEDS: METOPROLOL TARTRATE 50 MG TABLET (FP) PO SCH ×2 (09:52→21:07)
[2018-04-03] MEDS: amLODIPine BESYLATE 5 MG TABLET (FP) PO SCH (09:52)
[2018-04-03] MEDS: CALCIUM CARBONATE 650 MG TABLET PO SCH ×2 (09:52→21:00)
[2018-04-03] MEDS: BUDESONIDE/FORMETEROL FUMARATE 160/4.5 mcg INHALER IH SCH ×2 (10:23→21:02)
--- NOTE | 2018-04-03 12:44 | PN ---
Progress Note, Physician History of Present Illness: pulmonary alert,feeling better,-cp,-sob - Current Medication List Current Medications: Active Medications Acetaminophen (Tylenol -) 650 mg PO Q6H PRN PRN Reason: FEVER/PAIN LEVEL 1-5 Last Admin: 04/03/18 06:36 Dose: 650 mg Albuterol Sulfate (Ventolin Hfa Inhaler -) 2 puff IH Q4H PRN PRN Reason: SHORTNESS OF BREATH Allopurinol (Zyloprim -) 150 mg PO DAILY [facility] Last Admin: 04/03/18 09:51 Dose: 150 mg Alprazolam (Xanax -) 0.5 mg PO Q8H PRN PRN Reason: ANXIETY Last Admin: 04/03/18 09:49 Dose: 0.5 mg Amlodipine Besylate (Norvasc -) 5 mg PO DAILY [facility] Last Admin: 04/03/18 09:52 Dose: 5 mg Atovaquone (Mepron -) 1,500 mg PO DAILY@0800 [facility] Last Admin: 04/03/18 09:52 Dose: 1,500 mg Baclofen (Lioresal -) 10 mg PO TID [facility] Budesonide/Formoterol Fumarate (Symbicort 160/4.5mcg -) 2 puff IH BID [facility] Last Admin: 04/03/18 10:23 Dose: 2 puff Calcium Carbonate (Calcium Carbonate -) 650 mg PO BID [facility] Last Admin: 04/03/18 09:52 Dose: 650 mg Docusate Sodium (Colace -) 100 mg PO BID [facility] Last Admin: 04/03/18 09:51 Dose: 100 mg Furosemide (Lasix -) 40 mg PO DAILY [facility] Last Admin: 04/03/18 09:51 Dose: 40 mg Glimepiride (Amaryl -) 4 mg PO DAILY@0700 [facility] Last Admin: 04/03/18 07:15 Dose: 4 mg Heparin Sodium (Porcine) (Heparin -) 1,000 unit IVPUSH PRN PRN PRN Reason: Heparin Last Admin: 04/02/18 23:49 Dose: 1,000 unit Heparin Sodium (Porcine) (Heparin -) 5,000 unit IVPUSH PRN PRN PRN Reason: Heparin Heparin Sodium (Porcine) 25, (000 unit/ Sodium Chloride) 500 mls @ 20 mls/hr IV TITR [facility]; Protocol Last Admin: 04/02/18 23:49 Dose: 1,650 unit/hr, 33 mls/hr Metoprolol Tartrate (Lopressor -) 50 mg PO BID [facility] Last Admin: 04/03/18 09:52 Dose: 50 mg Morphine Sulfate (Ms Contin -) 60 mg PO TID [facility] Last Admin: 04/03/18 05:43 Dose: 60 mg Morphine Sulfate (Msir -) 15 mg PO Q6H PRN PRN Reason: BREAKTHROUGH PAIN 6-10 Last Admin: 04/03/18 09:48 Dose: 15 mg Nystatin (Nystop Powder -) 1 applic TP BID [facility] Pantoprazole Sodium (Protonix -) 40 mg PO DAILY [facility] Last Admin: 04/03/18 09:51 Dose: 40 mg - Objective Vital Signs: Vital Signs Temperature 97.9 F 04/03/18 09:59 Pulse Rate 84 04/03/18 09:59 Respiratory Rate 20 04/03/18 09:59 Blood Pressure 134/46 L 04/03/18 09:59 O2 Sat by Pulse Oximetry (%) 93 L 04/03/18 09:00 Constitutional: Yes: Well Nourished, Calm Eyes: Yes: WNL HENT: Yes: WNL Neck: Yes: WNL Cardiovascular: Yes: Regular Rate and Rhythm, S1, S2 Respiratory: Yes: CTA Bilaterally Gastrointestinal: Yes: Normal Bowel Sounds, Soft Extremities: Yes: WNL Edema: No Labs: CBC, BMP 04/03/18 06:00 04/03/18 06:00 INR, PTT INR 1.00 (0.83-1.09) 04/02/18 07:00 Assessment/Plan Problem List - Problems (1) Chest pain Code(s): R07.9 - CHEST PAIN, UNSPECIFIED Qualifiers: Chest pain type: precordial pain Qualified Code(s): R07.2 - Precordial pain (2) Hip pain, right Code(s): M25.551 - PAIN IN RIGHT HIP (3) Status post total hip replacement, right Code(s): Z96.641 - PRESENCE OF RIGHT ARTIFICIAL HIP JOINT (4) Anemia Code(s): D64.9 - ANEMIA, UNSPECIFIED Qualifiers: Anemia type: iron deficiency Iron deficiency anemia type: chronic blood loss Qualified Code(s): D50.0 - Iron deficiency anemia secondary to blood loss (chronic) (5) Atelectasis Code(s): J98.11 - ATELECTASIS (6) CKD (chronic kidney disease) Code(s): N18.9 - CHRONIC KIDNEY DISEASE, UNSPECIFIED Qualifiers: Chronic kidney disease stage: stage 3 (moderate) Qualified Code(s): N18.3 - Chronic kidney disease, stage 3 (moderate) (7) COPD (chronic obstructive pulmonary disease) Code(s): J44.9 - CHRONIC OBSTRUCTIVE PULMONARY DISEASE, UNSPECIFIED (8) Chronic ITP (idiopathic thrombocytopenia) Code(s): D69.3 - IMMUNE THROMBOCYTOPENIC PURPURA (9) Chronic kidney disease Code(s): N18.9 - CHRONIC KIDNEY DISEASE, UNSPECIFIED Qualifiers: (10) Diabetes mellitus Code(s): E11.9 - TYPE 2 DIABETES MELLITUS WITHOUT COMPLICATIONS Qualifiers: Diabetes mellitus type: drug or chemical induced Diabetes mellitus complication status: without complication (11) Diaphragmatic hernia Code(s): K44.9 - DIAPHRAGMATIC HERNIA WITHOUT OBSTRUCTION OR GANGRENE Qualifiers: Obstruction and gangrene presence: without obstruction or gangrene Qualified Code(s): K44.9 - Diaphragmatic hernia without obstruction or gangrene (12) HTN (hypertension) Code(s): I10 - ESSENTIAL (PRIMARY) HYPERTENSION Qualifiers: Hypertension type: essential hypertension Qualified Code(s): I10 - Essential (primary) hypertension (13) History of immunocompromised state Code(s): Z86.2 - PRSNL HISTORY OF DIS OF THE BLD/BLD-FORM ORG/IMMUN MECHNSM (14) ITP (idiopathic thrombocytopenic purpura) Code(s): D69.3 - IMMUNE THROMBOCYTOPENIC PURPURA (15) Mantle cell lymphoma Code(s): C83.10 - MANTLE CELL LYMPHOMA, UNSPECIFIED SITE Qualifiers: Lymphoma site: unspecified region Qualified Code(s): C83.10 - Mantle cell lymphoma, unspecified site (16) Obesity (BMI 35.0-39.9 without comorbidity) Code(s): E66.9 - OBESITY, UNSPECIFIED (17) Osteoarthritis Code(s): M19.90 - UNSPECIFIED OSTEOARTHRITIS, UNSPECIFIED SITE (18) 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 (19) SOB (shortness of breath) Code(s): R06.02 - SHORTNESS OF BREATH (20) Spinal stenosis Code(s): M48.00 - SPINAL STENOSIS, SITE UNSPECIFIED (21) T2DM (type 2 diabetes mellitus) Code(s): E11.9 - TYPE 2 DIABETES MELLITUS WITHOUT COMPLICATIONS Qualifiers: Diabetes mellitus exterminator termite insulin use: without exterminator termite use Diabetes mellitus complication status: without complication Qualified Code(s): E11.9 - Type 2 diabetes mellitus without complications Assessment/Plan IMP: R/O PE : due to recent surgery, immobilization, no VTE prophylaxis, and high risk PLAN: check v/q LE doppler O2 as needed IV Heparin per protocol Pain control Incentive Spirometry Due not suspect PNA: monitor off ABX
[2018-04-03] MEDS: NYSTATIN POWDER 100,000 UNITS/GM - 15 GM TOPICAL POWDER TP SCH ×2 (13:29→21:02)
[2018-04-03] MEDS: BACLOFEN 10 MG TABLET (FP) PO SCH ×2 (13:29→21:02)
[2018-04-03 16:18] LABS: ALBUMIN 2.3 g/dl (3.4-5.0); ALK PHOS 83 U/L (45-117); ANION GAP 5 MMOL/L (8-16); BILIRUBIN,TOTAL 0.2 mg/dL (0.2-1); BLOOD UREA NITROGEN 33 mg/dL (7-18); CALCIUM 8.3 mg/dL (8.5-10.1); CHLORIDE 97 mmol/L (98-107); CO2 30 mmol/L (21-32); CREATININE 1.9 mg/dL (0.55-1.3); GLUCOSE,RANDOM 136 mg/dL (74-106); POTASSIUM 4.3 mmol/L (3.5-5.1); SGOT/AST 27 U/L (15-37); SGPT/ALT 12 U/L (13-61); SODIUM 132 mmol/L (136-145); TOT PROT 5.7 g/dl (6.4-8.2)
--- NOTE | 2018-04-03 16:27 | PN ---
Progress Note (short form) - Note Progress Note: Pt seen and examined. She is 1 week s/p right THR. Was doing well, then developed CP, was admitted to [facility] for further work up, and was found to have a PE. Now on IV Heparin. Denies any CP, SOB, palpitations, or feelings of anxiety. Is very comfortable at the moment. Did ambulate with P.T. today. She states she did well, little pain. All questions and concerns addressed. PE Right LE is NVI. Good ROM with no pain at the right knee, ankle, foot, toes. Appears comfortable. RLE not swollen, no tense compartments. Negative Homman's sign Imp Doing fine orthopedically. Rec On Heparin for the PE. Should continue P.T., WBAT Will observe.
[2018-04-03] MEDS ORDERED: METOCLOPRAMIDE HCL 10 MG TABLET (FP) PO ONE (18:48)
--- NOTE | 2018-04-03 19:30 | PN ---
Teaching Attending Note Name of Resident: Kvng Larson ATTENDING PHYSICIAN STATEMENT I saw and evaluated the patient. I reviewed the resident's note and discussed the case with the resident. I agree with the resident's findings and plan as documented. SUBJECTIVE: Patient seen and examined Denies chest pains or SOB Complains of hip pains post surgery Last Vital Signs Temp Pulse Resp BP Pulse Ox 97.7 F 63 16 107/62 93 L 04/03/18 14:49 04/03/18 14:49 04/03/18 14:49 04/03/18 14:49 04/03/18 09:00 HEENT: DENEEN, EOM Intact Cor: RSR, No murmurs, No gallops Lungs:diminished breath sounds bilaterally with poor inspiratory effort Abd: Soft, Normal bowel sounds, No organomegaly Ext:No significant edema Skin: No rashes, Integument intact CBC, BMP 04/03/18 06:00 04/03/18 14:55 Current Medications Generic Name Dose Route Start Last Admin Trade Name Freq PRN Reason Stop Dose Admin Acetaminophen 650 mg 04/01/18 01:00 04/03/18 06:36 Tylenol - PO 650 mg Q6H PRN Administration FEVER/PAIN LEVEL 1-5 Albuterol Sulfate 2 puff 04/01/18 01:00 Ventolin Hfa Inhaler - IH Q4H PRN SHORTNESS OF BREATH Allopurinol 150 mg 04/01/18 10:00 04/03/18 09:51 Zyloprim - PO 150 mg DAILY [facility] Administration Alprazolam 0.5 mg 04/01/18 00:47 04/03/18 09:49 Xanax - PO 0.5 mg Q8H PRN Administration ANXIETY Amlodipine Besylate 5 mg 04/01/18 10:00 04/03/18 09:52 Norvasc - PO 5 mg DAILY [facility] Administration Atovaquone 1,500 mg 04/01/18 08:00 04/03/18 09:52 Mepron - PO 1,500 mg DAILY@0800 [facility] Administration Baclofen 10 mg 04/03/18 14:00 04/03/18 13:29 Lioresal - PO 10 mg TID [facility] Administration Budesonide/Formoterol Fumarate 2 puff 04/01/18 10:00 04/03/18 10:23 Symbicort 160/4.5mcg - IH 2 puff BID [facility] Administration Calcium Carbonate 650 mg 04/01/18 10:00 04/03/18 09:52 Calcium Carbonate - PO 650 mg BID [facility] Administration Docusate Sodium 100 mg 04/01/18 10:00 04/03/18 09:51 Colace - PO 100 mg BID [facility] Administration Furosemide 40 mg 04/01/18 10:00 04/03/18 09:51 Lasix - PO 40 mg DAILY [facility] Administration Glimepiride 4 mg 04/01/18 07:00 04/03/18 07:15 Amaryl - PO 4 mg DAILY@0700 [facility] Administration Heparin Sodium (Porcine) 1,000 unit 04/02/18 16:31 04/02/18 23:49 Heparin - IVPUSH 1,000 unit PRN PRN Administration Heparin Heparin Sodium (Porcine) 5,000 unit 04/02/18 16:33 Heparin - IVPUSH PRN PRN Heparin Heparin Sodium (Porcine) 25, 500 mls @ 20 mls/hr 03/31/18 23:45 04/03/18 17: 20 000 unit/ Sodium Chloride IV 1,650 unit/hr TITR [facility] 33 mls/hr Titration Protocol 1,000 UNIT/HR Metoprolol Tartrate 50 mg 04/03/18 08:10 04/03/18 09:52 Lopressor - PO 50 mg BID [facility] Administration Morphine Sulfate 60 mg 04/01/18 06:00 04/03/18 13:30 Ms Contin - PO 60 mg TID [facility] Administration Morphine Sulfate 15 mg 04/01/18 00:47 04/03/18 15:01 Msir - PO 15 mg Q6H PRN Administration BREAKTHROUGH PAIN 6-10 Nystatin 1 applic 04/03/18 11:30 04/03/18 13:29 Nystop Powder - TP 1 applic BID [facility] Administration Pantoprazole Sodium 40 mg 04/01/18 10:00 04/03/18 09:51 Protonix - PO 40 mg DAILY [facility] Administration Impression S/P hip surgery atypical chest pain syndrome Antiphopholipid syndrome Mantle cell lymohoma S/P splenectomy negative V/Q scan Suggest - out patient extended lovenox therpy for 4 weeks LE duplex. P OBJECTIVE: ASSESSMENT AND PLAN:
[2018-04-04] MEDS: morphine SULFATE IMMEDIATE RELEASE 30 MG TAB PO PRN (00:13)
[2018-04-04] MEDS: HEPARIN - 25,000 UNIT in SODIUM CHLORIDE 495 ML IV SCH (00:14)
[2018-04-04] MEDS: morphine SO4 SUSTAINED ACTING 30 MG TABLET.SA PO SCH ×2 (05:28→16:06)
[2018-04-04] MEDS: BACLOFEN 10 MG TABLET (FP) PO SCH (05:28)
[2018-04-04] MEDS: GLIMEPIRIDE 4 MG TABLET (FP) PO SCH (06:15)
[2018-04-04 07:23] LABS: ALBUMIN 2.3 g/dl (3.4-5.0); ALK PHOS 76 U/L (45-117); ANION GAP 9 MMOL/L (8-16); BILIRUBIN,TOTAL 0.3 mg/dL (0.2-1); BLOOD UREA NITROGEN 31 mg/dL (7-18); CHLORIDE 100 mmol/L (98-107); CO2 27 mmol/L (21-32); CREATININE 1.9 mg/dL (0.55-1.3); GLUCOSE,RANDOM 130 mg/dL (74-106); POTASSIUM 3.9 mmol/L (3.5-5.1); SGOT/AST 19 U/L (15-37); SGPT/ALT 10 U/L (13-61); SODIUM 136 mmol/L (136-145); TOT PROT 5.3 g/dl (6.4-8.2)
--- NOTE | 2018-04-04 10:03 | PN ---
Progress Note, Physician Chief Complaint: Ms Painting says she is feeling dizzy and has nausea. Continues to have chest pain, says remains unresolved. Also with RLE pain s/p surgery. Currently not short of breath. - Current Medication List Current Medications: Active Medications Acetaminophen (Tylenol -) 650 mg PO Q6H PRN PRN Reason: FEVER/PAIN LEVEL 1-5 Last Admin: 04/03/18 06:36 Dose: 650 mg Albuterol Sulfate (Ventolin Hfa Inhaler -) 2 puff IH Q4H PRN PRN Reason: SHORTNESS OF BREATH Allopurinol (Zyloprim -) 150 mg PO DAILY [facility] Last Admin: 04/03/18 09:51 Dose: 150 mg Alprazolam (Xanax -) 0.5 mg PO Q8H PRN PRN Reason: ANXIETY Last Admin: 04/03/18 21:01 Dose: 0.5 mg Amlodipine Besylate (Norvasc -) 5 mg PO DAILY [facility] Last Admin: 04/03/18 09:52 Dose: 5 mg Atovaquone (Mepron -) 1,500 mg PO DAILY@0800 [facility] Last Admin: 04/03/18 09:52 Dose: 1,500 mg Budesonide/Formoterol Fumarate (Symbicort 160/4.5mcg -) 2 puff IH BID [facility] Last Admin: 04/03/18 21:02 Dose: 2 puff Calcium Carbonate (Calcium Carbonate -) 650 mg PO BID [facility] Last Admin: 04/03/18 21:00 Dose: 650 mg Docusate Sodium (Colace -) 100 mg PO BID [facility] Last Admin: 04/03/18 21:01 Dose: 100 mg Furosemide (Lasix -) 40 mg PO DAILY [facility] Last Admin: 04/03/18 09:51 Dose: 40 mg Glimepiride (Amaryl -) 4 mg PO DAILY@0700 [facility] Last Admin: 04/04/18 06:15 Dose: 4 mg Heparin Sodium (Porcine) (Heparin -) 1,000 unit IVPUSH PRN PRN PRN Reason: Heparin Last Admin: 04/02/18 23:49 Dose: 1,000 unit Heparin Sodium (Porcine) (Heparin -) 5,000 unit IVPUSH PRN PRN PRN Reason: Heparin Heparin Sodium (Porcine) 25, (000 unit/ Sodium Chloride) 500 mls @ 20 mls/hr IV TITR [facility]; Protocol Last Admin: 04/04/18 00:14 Dose: 1,650 unit/hr, 33 mls/hr Metoprolol Tartrate (Lopressor -) 50 mg PO BID [facility] Last Admin: 04/03/18 21:07 Dose: Not Given Morphine Sulfate (Ms Contin -) 60 mg PO TID [facility] Last Admin: 04/04/18 05:28 Dose: 60 mg Morphine Sulfate (Msir -) 15 mg PO Q6H PRN PRN Reason: BREAKTHROUGH PAIN 6-10 Last Admin: 04/04/18 00:13 Dose: 15 mg Nystatin (Nystop Powder -) 1 applic TP BID [facility] Last Admin: 04/03/18 21:02 Dose: 1 applic Pantoprazole Sodium (Protonix -) 40 mg PO DAILY [facility] Last Admin: 04/03/18 09:51 Dose: 40 mg - Objective Vital Signs: Vital Signs Temperature 37.2 C 04/04/18 09:00 Pulse Rate 100 H 04/04/18 09:00 Respiratory Rate 20 04/04/18 09:00 Blood Pressure 126/56 L 04/04/18 09:00 O2 Sat by Pulse Oximetry (%) 96 04/04/18 09:00 Constitutional: Yes: Mild Distress, Obese Cardiovascular: Yes: Regular Rate and Rhythm. No: Gallop, Murmur, Rub Respiratory: Yes: Regular, CTA Bilaterally. No: Rales, Rhonchi, Wheezes Gastrointestinal: Yes: Normal Bowel Sounds, Soft. No: Distention, Tenderness Extremities: Yes: WNL Edema: Yes Edema: RLE: 1+ Labs: CBC, BMP 04/03/18 06:00 04/04/18 06:00 INR, PTT INR 1.00 (0.83-1.09) 04/02/18 07:00 Problem List - Problems (1) Altered mental status Assessment/Plan: -suspect this is drug related -recently had baclofen added to regimen -will obtain head ct, since on heparin gtt but lower suspicion for bleed -stop baclofen -will check urinalysis -if has fever will check CXR, blood and urine cultures Code(s): R41.82 - ALTERED MENTAL STATUS, UNSPECIFIED (2) Chest pain Assessment/Plan: -troponins negative -monitor -cardiology following Code(s): R07.9 - CHEST PAIN, UNSPECIFIED Qualifiers: Chest pain type: precordial pain Qualified Code(s): R07.2 - Precordial pain (3) Elevated WBC count Assessment/Plan: -been present entire admission -suspect reactive -monitor Code(s): D72.829 - ELEVATED WHITE BLOOD CELL COUNT, UNSPECIFIED (4) Status post total hip replacement, right Assessment/Plan: -continue PT -currently on heparin gtt for concern about DVT -duplex dopplers ordered -if negative, can change to DVT PPx Code(s): Z96.641 - PRESENCE OF RIGHT ARTIFICIAL HIP JOINT (5) Acute on chronic renal failure Assessment/Plan: -baseline -monitor Code(s): N17.9 - ACUTE KIDNEY FAILURE, UNSPECIFIED; N18.9 - CHRONIC KIDNEY DISEASE, UNSPECIFIED Qualifiers: Chronic kidney disease stage: stage 4 (severe) (6) Anemia Assessment/Plan: -stable -currently no need for transfusion Code(s): D64.9 - ANEMIA, UNSPECIFIED Qualifiers: Anemia type: iron deficiency Iron deficiency anemia type: chronic blood loss Qualified Code(s): D50.0 - Iron deficiency anemia secondary to blood loss (chronic) (7) CKD stage 3 secondary to diabetes Assessment/Plan: -at baseline Code(s): E11.22 - TYPE 2 DIABETES MELLITUS W DIABETIC CHRONIC KIDNEY DISEASE; N18.3 - CHRONIC KIDNEY DISEASE, STAGE 3 (MODERATE) (8) COPD (chronic obstructive pulmonary disease) Assessment/Plan: -not in exacerbation Code(s): J44.9 - CHRONIC OBSTRUCTIVE PULMONARY DISEASE, UNSPECIFIED (9) Chronic ITP (idiopathic thrombocytopenia) Assessment/Plan: -platelets normal Code(s): D69.3 - IMMUNE THROMBOCYTOPENIC PURPURA (10) Chronic pain Assessment/Plan: -continue morphine Code(s): G89.29 - OTHER CHRONIC PAIN Qualifiers: Chronic pain type: chronic pain syndrome Qualified Code(s): G89.4 - Chronic pain syndrome (11) Diabetes mellitus Assessment/Plan: -continue amaryl Code(s): E11.9 - TYPE 2 DIABETES MELLITUS WITHOUT COMPLICATIONS Qualifiers: Diabetes mellitus type: drug or chemical induced Diabetes mellitus complication status: without complication (12) HTN (hypertension) Assessment/Plan: -controlled Code(s): I10 - ESSENTIAL (PRIMARY) HYPERTENSION Qualifiers: Hypertension type: essential hypertension Qualified Code(s): I10 - Essential (primary) hypertension (13) 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
--- NOTE | 2018-04-04 10:05 | PN ---
Progress Note, Physician History of Present Illness: Atypical chest pain resolved, not dyspneic. Agitated earlier in AM, suspect medication effects. - Current Medication List Current Medications: Active Medications Acetaminophen (Tylenol -) 650 mg PO Q6H PRN PRN Reason: FEVER/PAIN LEVEL 1-5 Last Admin: 04/03/18 06:36 Dose: 650 mg Albuterol Sulfate (Ventolin Hfa Inhaler -) 2 puff IH Q4H PRN PRN Reason: SHORTNESS OF BREATH Allopurinol (Zyloprim -) 150 mg PO DAILY [facility] Last Admin: 04/03/18 09:51 Dose: 150 mg Alprazolam (Xanax -) 0.5 mg PO Q8H PRN PRN Reason: ANXIETY Last Admin: 04/03/18 21:01 Dose: 0.5 mg Amlodipine Besylate (Norvasc -) 5 mg PO DAILY [facility] Last Admin: 04/03/18 09:52 Dose: 5 mg Atovaquone (Mepron -) 1,500 mg PO DAILY@0800 [facility] Last Admin: 04/03/18 09:52 Dose: 1,500 mg Budesonide/Formoterol Fumarate (Symbicort 160/4.5mcg -) 2 puff IH BID [facility] Last Admin: 04/03/18 21:02 Dose: 2 puff Calcium Carbonate (Calcium Carbonate -) 650 mg PO BID [facility] Last Admin: 04/03/18 21:00 Dose: 650 mg Docusate Sodium (Colace -) 100 mg PO BID [facility] Last Admin: 04/03/18 21:01 Dose: 100 mg Furosemide (Lasix -) 40 mg PO DAILY [facility] Last Admin: 04/03/18 09:51 Dose: 40 mg Glimepiride (Amaryl -) 4 mg PO DAILY@0700 [facility] Last Admin: 04/04/18 06:15 Dose: 4 mg Heparin Sodium (Porcine) (Heparin -) 1,000 unit IVPUSH PRN PRN PRN Reason: Heparin Last Admin: 04/02/18 23:49 Dose: 1,000 unit Heparin Sodium (Porcine) (Heparin -) 5,000 unit IVPUSH PRN PRN PRN Reason: Heparin Heparin Sodium (Porcine) 25, (000 unit/ Sodium Chloride) 500 mls @ 20 mls/hr IV TITR [facility]; Protocol Last Admin: 04/04/18 00:14 Dose: 1,650 unit/hr, 33 mls/hr Metoprolol Tartrate (Lopressor -) 50 mg PO BID [facility] Last Admin: 04/03/18 21:07 Dose: Not Given Morphine Sulfate (Ms Contin -) 60 mg PO TID [facility] Last Admin: 04/04/18 05:28 Dose: 60 mg Morphine Sulfate (Msir -) 15 mg PO Q6H PRN PRN Reason: BREAKTHROUGH PAIN 6-10 Last Admin: 04/04/18 00:13 Dose: 15 mg Nystatin (Nystop Powder -) 1 applic TP BID [facility] Last Admin: 04/03/18 21:02 Dose: 1 applic Pantoprazole Sodium (Protonix -) 40 mg PO DAILY [facility] Last Admin: 04/03/18 09:51 Dose: 40 mg - Objective Vital Signs: Vital Signs Temperature 99 F 04/04/18 09:00 Pulse Rate 100 H 04/04/18 09:00 Respiratory Rate 20 04/04/18 09:00 Blood Pressure 126/56 L 04/04/18 09:00 O2 Sat by Pulse Oximetry (%) 96 04/04/18 09:00 Constitutional: Yes: No Distress, Calm Neck: Yes: Supple Cardiovascular: Yes: Regular Rate and Rhythm Respiratory: Yes: Regular, Diminished Gastrointestinal: Yes: Normal Bowel Sounds, Soft, Abdomen, Obese Edema: No Labs: CBC, BMP 04/03/18 06:00 04/04/18 06:00 INR, PTT INR 1.00 (0.83-1.09) 04/02/18 07:00 Problem List - Problems (1) Status post total hip replacement, right Code(s): Z96.641 - PRESENCE OF RIGHT ARTIFICIAL HIP JOINT (2) Chest pain Code(s): R07.9 - CHEST PAIN, UNSPECIFIED Qualifiers: Chest pain type: precordial pain Qualified Code(s): R07.2 - Precordial pain (3) Hip pain, right Code(s): M25.551 - PAIN IN RIGHT HIP (4) Acute ITP Code(s): D69.3 - IMMUNE THROMBOCYTOPENIC PURPURA (5) CKD (chronic kidney disease) Code(s): N18.9 - CHRONIC KIDNEY DISEASE, UNSPECIFIED Qualifiers: Chronic kidney disease stage: stage 3 (moderate) Qualified Code(s): N18.3 - Chronic kidney disease, stage 3 (moderate) (6) HTN (hypertension) Code(s): I10 - ESSENTIAL (PRIMARY) HYPERTENSION Qualifiers: Hypertension type: essential hypertension Qualified Code(s): I10 - Essential (primary) hypertension (7) Mantle cell lymphoma Code(s): C83.10 - MANTLE CELL LYMPHOMA, UNSPECIFIED SITE Qualifiers: Lymphoma site: unspecified region Qualified Code(s): C83.10 - Mantle cell lymphoma, unspecified site (8) T2DM (type 2 diabetes mellitus) Code(s): E11.9 - TYPE 2 DIABETES MELLITUS WITHOUT COMPLICATIONS Qualifiers: Diabetes mellitus usp insulin use: without intermodal truck driver use Diabetes mellitus complication status: without complication Qualified Code(s): E11.9 - Type 2 diabetes mellitus without complications Assessment/Plan Echocardiography dated 08/18/2017 revealed normal bi-ventricular size and function, mild MR and TR 04/02/2018 Echo: RV not well seen, normal LV size and fxn, LVEF 60-65%, RVSP 51 mmHg 1. Atypical chest pain syndrome -> V/Q low prob for post-op PE 2. s/p recent right THR 3. Diastolic dysfunction 4. CAD angina pectoris 5. HTN 6. Type 2 Diabetes mellitus 7. Hypercholesterolemia 8. COPD 9. Acute on CKD improving 10. History of ITP post splenectomy 11. History of Mantle cell lymphoma 12. History of degenerative joint disease 13. Morbid obesity PLAN: 1. V/Q scan is low prob for PE and declined LE dopplers to r/o DVT, recommended post-op DVT prophylaxis for 4 weeks 2. Continue Lopressor 50 bid and Norvasc 5 qd 3. Continue Lasix 40 qd with close monitoring of renal function and electrolytes 4. Analgesia as needed, PT as tolerated 5. Ideally ACEI or ARBS are recommended once renal function at baseline 6. Recommend pharmacologic MPI study as outpatient once clinically stable
[2018-04-04] MEDS ORDERED: PT OWN MED DRAWER 7, Y5N ONE ×3 (10:59→19:05)
[2018-04-04] MEDS ORDERED: ONDANSETRON 4 MG/2 ML VIAL IVPUSH PRN (11:03)
[2018-04-04] MEDS: FUROSEMIDE 40 MG TABLET (FP) PO SCH (11:04)
[2018-04-04] MEDS: amLODIPine BESYLATE 5 MG TABLET (FP) PO SCH (11:05)
[2018-04-04] MEDS: PANTOPRAZOLE 40 MG TABLET (FP) PO SCH (11:05)
[2018-04-04] MEDS: DOCUSATE SODIUM 100 MG CAPSULE (FP) PO SCH ×2 (11:05→21:58)
[2018-04-04] MEDS: ALLOPURINOL 100 MG TABLET (FP) PO SCH (11:06)
[2018-04-04] MEDS: CALCIUM CARBONATE 650 MG TABLET PO SCH ×2 (11:06→21:58)
[2018-04-04] MEDS: ATOVAQUONE 750 MG/5 ML (UNIT-DOSE PACKAGING) PO SCH (11:08)
[2018-04-04] MEDS: BUDESONIDE/FORMETEROL FUMARATE 160/4.5 mcg INHALER IH SCH ×2 (11:12→21:58)
[2018-04-04] MEDS: NYSTATIN POWDER 100,000 UNITS/GM - 15 GM TOPICAL POWDER TP SCH ×2 (11:12→21:58)
--- NOTE | 2018-04-04 11:28 | PN ---
Progress Note, Physician History of Present Illness: pulmonary confused earlier,currently alert,-resp distress. v/q scan -PE - Current Medication List Current Medications: Active Medications Acetaminophen (Tylenol -) 650 mg PO Q6H PRN PRN Reason: FEVER/PAIN LEVEL 1-5 Last Admin: 04/03/18 06:36 Dose: 650 mg Albuterol Sulfate (Ventolin Hfa Inhaler -) 2 puff IH Q4H PRN PRN Reason: SHORTNESS OF BREATH Allopurinol (Zyloprim -) 150 mg PO DAILY [facility] Last Admin: 04/04/18 11:06 Dose: 150 mg Alprazolam (Xanax -) 0.5 mg PO Q8H PRN PRN Reason: ANXIETY Last Admin: 04/03/18 21:01 Dose: 0.5 mg Amlodipine Besylate (Norvasc -) 5 mg PO DAILY [facility] Last Admin: 04/04/18 11:05 Dose: 5 mg Atovaquone (Mepron -) 1,500 mg PO DAILY@0800 [facility] Last Admin: 04/04/18 11:08 Dose: 1,500 mg Budesonide/Formoterol Fumarate (Symbicort 160/4.5mcg -) 2 puff IH BID [facility] Last Admin: 04/04/18 11:12 Dose: 2 puff Calcium Carbonate (Calcium Carbonate -) 650 mg PO BID [facility] Last Admin: 04/04/18 11:06 Dose: 650 mg Docusate Sodium (Colace -) 100 mg PO BID [facility] Last Admin: 04/04/18 11:05 Dose: 100 mg Furosemide (Lasix -) 40 mg PO DAILY [facility] Last Admin: 04/04/18 11:04 Dose: 40 mg Glimepiride (Amaryl -) 4 mg PO DAILY@0700 [facility] Last Admin: 04/04/18 06:15 Dose: 4 mg Heparin Sodium (Porcine) (Heparin -) 1,000 unit IVPUSH PRN PRN PRN Reason: Heparin Last Admin: 04/02/18 23:49 Dose: 1,000 unit Heparin Sodium (Porcine) (Heparin -) 5,000 unit IVPUSH PRN PRN PRN Reason: Heparin Heparin Sodium (Porcine) 25, (000 unit/ Sodium Chloride) 500 mls @ 20 mls/hr IV TITR [facility]; Protocol Last Admin: 04/04/18 00:14 Dose: 1,650 unit/hr, 33 mls/hr Metoprolol Tartrate (Lopressor -) 50 mg PO BID [facility] Last Admin: 04/03/18 21:07 Dose: Not Given Morphine Sulfate (Ms Contin -) 60 mg PO TID [facility] Last Admin: 04/04/18 05:28 Dose: 60 mg Morphine Sulfate (Msir -) 15 mg PO Q6H PRN PRN Reason: BREAKTHROUGH PAIN 6-10 Last Admin: 04/04/18 00:13 Dose: 15 mg Nystatin (Nystop Powder -) 1 applic TP BID [facility] Last Admin: 04/04/18 11:12 Dose: 1 applic Ondansetron HCl (Zofran Injection) 4 mg IVPUSH Q6H PRN PRN Reason: NAUSEA Pantoprazole Sodium (Protonix -) 40 mg PO DAILY [facility] Last Admin: 04/04/18 11:05 Dose: 40 mg - Objective Vital Signs: Vital Signs Temperature 99 F 04/04/18 09:00 Pulse Rate 100 H 04/04/18 09:00 Respiratory Rate 20 04/04/18 09:00 Blood Pressure 126/56 L 04/04/18 09:00 O2 Sat by Pulse Oximetry (%) 96 04/04/18 09:00 Constitutional: Yes: Well Nourished, Calm Eyes: Yes: WNL HENT: Yes: WNL Neck: Yes: WNL Cardiovascular: Yes: Regular Rate and Rhythm, S1, S2 Respiratory: Yes: Diminished Extremities: Yes: WNL Edema: No Labs: CBC, BMP 04/04/18 06:00 INR, PTT INR 1.00 (0.83-1.09) 04/02/18 07:00 Assessment/Plan Problem List - Problems (1) Chest pain Code(s): R07.9 - CHEST PAIN, UNSPECIFIED Qualifiers: Chest pain type: precordial pain Qualified Code(s): R07.2 - Precordial pain (2) Hip pain, right Code(s): M25.551 - PAIN IN RIGHT HIP (3) Status post total hip replacement, right Code(s): Z96.641 - PRESENCE OF RIGHT ARTIFICIAL HIP JOINT (4) Anemia Code(s): D64.9 - ANEMIA, UNSPECIFIED Qualifiers: Anemia type: iron deficiency Iron deficiency anemia type: chronic blood loss Qualified Code(s): D50.0 - Iron deficiency anemia secondary to blood loss (chronic) (5) Atelectasis Code(s): J98.11 - ATELECTASIS (6) CKD (chronic kidney disease) Code(s): N18.9 - CHRONIC KIDNEY DISEASE, UNSPECIFIED Qualifiers: Chronic kidney disease stage: stage 3 (moderate) Qualified Code(s): N18.3 - Chronic kidney disease, stage 3 (moderate) (7) COPD (chronic obstructive pulmonary disease) Code(s): J44.9 - CHRONIC OBSTRUCTIVE PULMONARY DISEASE, UNSPECIFIED (8) Chronic ITP (idiopathic thrombocytopenia) Code(s): D69.3 - IMMUNE THROMBOCYTOPENIC PURPURA (9) Chronic kidney disease Code(s): N18.9 - CHRONIC KIDNEY DISEASE, UNSPECIFIED Qualifiers: (10) Diabetes mellitus Code(s): E11.9 - TYPE 2 DIABETES MELLITUS WITHOUT COMPLICATIONS Qualifiers: Diabetes mellitus type: drug or chemical induced Diabetes mellitus complication status: without complication (11) Diaphragmatic hernia Code(s): K44.9 - DIAPHRAGMATIC HERNIA WITHOUT OBSTRUCTION OR GANGRENE Qualifiers: Obstruction and gangrene presence: without obstruction or gangrene Qualified Code(s): K44.9 - Diaphragmatic hernia without obstruction or gangrene (12) HTN (hypertension) Code(s): I10 - ESSENTIAL (PRIMARY) HYPERTENSION Qualifiers: Hypertension type: essential hypertension Qualified Code(s): I10 - Essential (primary) hypertension (13) History of immunocompromised state Code(s): Z86.2 - PRSNL HISTORY OF DIS OF THE BLD/BLD-FORM ORG/IMMUN MECHNSM (14) ITP (idiopathic thrombocytopenic purpura) Code(s): D69.3 - IMMUNE THROMBOCYTOPENIC PURPURA (15) Mantle cell lymphoma Code(s): C83.10 - MANTLE CELL LYMPHOMA, UNSPECIFIED SITE Qualifiers: Lymphoma site: unspecified region Qualified Code(s): C83.10 - Mantle cell lymphoma, unspecified site (16) Obesity (BMI 35.0-39.9 without comorbidity) Code(s): E66.9 - OBESITY, UNSPECIFIED (17) Osteoarthritis Code(s): M19.90 - UNSPECIFIED OSTEOARTHRITIS, UNSPECIFIED SITE (18) 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 (19) SOB (shortness of breath) Code(s): R06.02 - SHORTNESS OF BREATH (20) Spinal stenosis Code(s): M48.00 - SPINAL STENOSIS, SITE UNSPECIFIED (21) T2DM (type 2 diabetes mellitus) Code(s): E11.9 - TYPE 2 DIABETES MELLITUS WITHOUT COMPLICATIONS Qualifiers: Diabetes mellitus terminal operations manager insulin use: without skilled nursing use Diabetes mellitus complication status: without complication Qualified Code(s): E11.9 - Type 2 diabetes mellitus without complications Assessment/Plan IMP: DYSPNEA ALTERED MENTAL STATUS LIKELY SECONDARY TO MEDS COPD ANEMIA RECENT R THR PLAN: O2 as needed dvt prophylaxis Pain control Incentive Spirometry chest x-ray Inhaled bronchodilators DR ISRAEL
[2018-04-04] MEDS: HEPARIN NA (PORCINE) 5,000 UNITS/ML 1ML VIAL IVPUSH PRN (11:29)
[2018-04-04] MEDS: METOPROLOL TARTRATE 50 MG TABLET (FP) PO SCH ×2 (11:41→21:58)
--- NOTE | 2018-04-04 18:17 | PN ---
Progress Note (short form) - Note Progress Note: Patient seen and [id number] Lethargic Last Vital Signs Temp Pulse Resp BP Pulse Ox 98.4 F 90 18 140/75 97 04/04/18 14:00 04/04/18 14:00 04/04/18 14:00 04/04/18 14:00 04/04/18 11:45 HEENT: DENEEN, EOM Intact Cor: RSR, No murmurs, No gallops Lungs: poor inspiratory effort Abd: Soft, Normal bowel sounds, No organomegaly Ext:No significant edema Skin: No rashes, Integument intact CBC, BMP 04/03/18 06:00 04/04/18 06:00 Current Medications Generic Name Dose Route Start Last Admin Trade Name Freq PRN Reason Stop Dose Admin Acetaminophen 650 mg 04/01/18 01:00 04/03/18 06:36 Tylenol - PO 650 mg Q6H PRN Administration FEVER/PAIN LEVEL 1-5 Albuterol Sulfate 2 puff 04/01/18 01:00 Ventolin Hfa Inhaler - IH Q4H PRN SHORTNESS OF BREATH Allopurinol 150 mg 04/01/18 10:00 04/04/18 11:06 Zyloprim - PO 150 mg DAILY [facility] Administration Alprazolam 0.5 mg 04/01/18 00:47 04/03/18 21:01 Xanax - PO 0.5 mg Q8H PRN Administration ANXIETY Amlodipine Besylate 5 mg 04/01/18 10:00 04/04/18 11:05 Norvasc - PO 5 mg DAILY [facility] Administration Atovaquone 1,500 mg 04/01/18 08:00 04/04/18 11:08 Mepron - PO 1,500 mg DAILY@0800 [facility] Administration Budesonide/Formoterol Fumarate 2 puff 04/01/18 10:00 04/04/18 11:12 Symbicort 160/4.5mcg - IH 2 puff BID [facility] Administration Calcium Carbonate 650 mg 04/01/18 10:00 04/04/18 11:06 Calcium Carbonate - PO 650 mg BID [facility] Administration Docusate Sodium 100 mg 04/01/18 10:00 04/04/18 11:05 Colace - PO 100 mg BID [facility] Administration Enoxaparin Sodium 100 mg 04/04/18 22:00 Lovenox - SQ BID [facility] Furosemide 40 mg 04/01/18 10:00 04/04/18 11:04 Lasix - PO 40 mg DAILY [facility] Administration Glimepiride 4 mg 04/01/18 07:00 04/04/18 06:15 Amaryl - PO 4 mg DAILY@0700 [facility] Administration Metoprolol Tartrate 50 mg 04/03/18 08:10 04/04/18 11:41 Lopressor - PO 50 mg BID [facility] Administration Morphine Sulfate 60 mg 04/01/18 06:00 04/04/18 16:06 Ms Contin - PO 60 mg TID [facility] Administration Morphine Sulfate 15 mg 04/01/18 00:47 04/04/18 00:13 Msir - PO 15 mg Q6H PRN Administration BREAKTHROUGH PAIN 6-10 Nystatin 1 applic 04/03/18 11:30 04/04/18 11:12 Nystop Powder - TP 1 applic BID [facility] Administration Ondansetron HCl 4 mg 04/04/18 11:03 04/04/18 11:35 Zofran Injection IVPUSH 4 mg Q6H PRN Administration NAUSEA Pantoprazole Sodium 40 mg 04/01/18 10:00 04/04/18 11:05 Protonix - PO 40 mg DAILY [facility] Administration Impression: S/P hip surgery Positive antiphospholipid antibody Mantle cell lymphoma S/P splenectomy ITP plan : In view of sedentary state, antiphospholipid antibody - full dose lovenox at 100 mg daily ( reduced for elevated INR)
[2018-04-04 19:45] LABS: URINE APPEARANCE CLEAR; URINE BILIRUBIN NEGATIVE (<2.0 mg/dL); URINE COLOR STRAW; URINE GLUCOSE (UA) NEGATIVE (NEGATIVE); URINE KETONE NEGATIVE (NEGATIVE); URINE LEUK ESTERASE NEGATIVE (NEGATIVE); URINE NITRITE NEGATIVE (NEGATIVE); URINE PROTEIN NEGATIVE (NEGATIVE); URINE UROBILINOGEN NEGATIVE mg/dL (0.2-1.0)
[2018-04-04] MEDS: ENOXAPARIN NA (PORCINE) 100 MG/1 ML DISP.SYRIN SQ SCH (21:58)
[2018-04-04] MEDS ORDERED: ENOXAPARIN NA (PORCINE) 100 MG/1 ML DISP.SYRIN SQ SCH ×2 (22:00)
[2018-04-05] MEDS: morphine SULFATE IMMEDIATE RELEASE 30 MG TAB PO PRN ×2 (06:18→20:10)
[2018-04-05] MEDS: GLIMEPIRIDE 4 MG TABLET (FP) PO SCH (06:19)
[2018-04-05 06:41] LABS: BASO % 1.5 % (0-2.0); EOS % 4.2 % (0-4.5); HEMATOCRIT 29.3 % (32.4-45.2); HEMOGLOBIN 8.9 GM/dL (10.7-15.3); LYMPH % 11.2 % (8-40); MCH 27.1 pg (25.7-33.7); MCHC 30.4 g/dl (32.0-36.0); MEAN CELL VOLUME 89.2 fl (80-96); MEAN PLT VOLUME 8.6 fl (7.5-11.1); NEUT % 70.1 % (42.8-82.8); PLATELET COUNT 417 K/MM3 (134-434); RBC 3.28 M/mm3 (3.60-5.2); WHITE BLOOD COUNT 16.8 K/mm3 (4.0-10.0)
[2018-04-05 07:12] LABS: ANION GAP 12 MMOL/L (8-16); BLOOD UREA NITROGEN 30 mg/dL (7-18); CHLORIDE 98 mmol/L (98-107); CO2 28 mmol/L (21-32); GLUCOSE,RANDOM 52 mg/dL (74-106); MAGNESIUM 2.4 mg/dL (1.8-2.4); PHOSPHOROUS 4.9 mg/dL (2.5-4.9); POTASSIUM 4.4 mmol/L (3.5-5.1); SODIUM 138 mmol/L (136-145)
[2018-04-05] MEDS ORDERED: PT OWN MED DRAWER 7, Y5N ONE (09:39)
--- NOTE | 2018-04-05 09:39 | PN ---
Progress Note, Physician History of Present Illness: Atypical chest pain occurs after using walker c/w musculoskeletal strain, not dyspneic. Sensorium improved to baseline. - Current Medication List Current Medications: Active Medications Acetaminophen (Tylenol -) 650 mg PO Q6H PRN PRN Reason: FEVER/PAIN LEVEL 1-5 Last Admin: 04/03/18 06:36 Dose: 650 mg Albuterol Sulfate (Ventolin Hfa Inhaler -) 2 puff IH Q4H PRN PRN Reason: SHORTNESS OF BREATH Allopurinol (Zyloprim -) 150 mg PO DAILY [facility] Last Admin: 04/04/18 11:06 Dose: 150 mg Alprazolam (Xanax -) 0.5 mg PO Q8H PRN PRN Reason: ANXIETY Last Admin: 04/03/18 21:01 Dose: 0.5 mg Amlodipine Besylate (Norvasc -) 5 mg PO DAILY [facility] Last Admin: 04/04/18 11:05 Dose: 5 mg Atovaquone (Mepron -) 1,500 mg PO DAILY@0800 [facility] Last Admin: 04/04/18 11:08 Dose: 1,500 mg Budesonide/Formoterol Fumarate (Symbicort 160/4.5mcg -) 2 puff IH BID [facility] Last Admin: 04/04/18 21:58 Dose: 2 puff Calcium Carbonate (Calcium Carbonate -) 650 mg PO BID [facility] Last Admin: 04/04/18 21:58 Dose: 650 mg Docusate Sodium (Colace -) 100 mg PO BID [facility] Last Admin: 04/04/18 21:58 Dose: 100 mg Enoxaparin Sodium (Lovenox -) 100 mg SQ BID [facility] Last Admin: 04/04/18 21:58 Dose: 100 mg Furosemide (Lasix -) 40 mg PO DAILY [facility] Last Admin: 04/04/18 11:04 Dose: 40 mg Glimepiride (Amaryl -) 4 mg PO DAILY@0700 [facility] Last Admin: 04/05/18 06:19 Dose: Not Given Metoprolol Tartrate (Lopressor -) 50 mg PO BID [facility] Last Admin: 04/04/18 21:58 Dose: 50 mg Morphine Sulfate (Msir -) 15 mg PO Q6H PRN PRN Reason: BREAKTHROUGH PAIN 6-10 Last Admin: 04/05/18 06:18 Dose: 15 mg Nystatin (Nystop Powder -) 1 applic TP BID [facility] Last Admin: 04/04/18 21:58 Dose: 1 applic Ondansetron HCl (Zofran Injection) 4 mg IVPUSH Q6H PRN PRN Reason: NAUSEA Last Admin: 04/04/18 11:35 Dose: 4 mg Pantoprazole Sodium (Protonix -) 40 mg PO DAILY [facility] Last Admin: 04/04/18 11:05 Dose: 40 mg - Objective Vital Signs: Vital Signs Temperature 98.2 F 04/05/18 06:00 Pulse Rate 77 04/05/18 06:00 Respiratory Rate 20 04/05/18 06:00 Blood Pressure 123/56 L 04/05/18 06:00 O2 Sat by Pulse Oximetry (%) 96 04/04/18 21:00 Constitutional: Yes: No Distress, Calm Neck: Yes: Supple Cardiovascular: Yes: Regular Rate and Rhythm Respiratory: Yes: Regular, Diminished, On Nasal O2 Gastrointestinal: Yes: Normal Bowel Sounds, Soft Edema: No Labs: CBC, BMP 04/05/18 06:00 04/05/18 06:00 INR, PTT INR 1.00 (0.83-1.09) 04/02/18 07:00 - ....Imaging Cat Scan: Report Reviewed (HCT: No cte changes) Ultrasound: Report Reviewed (No DVT, right Talavera's cyst) EKG: Report Reviewed (Tele: SR) Problem List - Problems (1) Status post total hip replacement, right Code(s): Z96.641 - PRESENCE OF RIGHT ARTIFICIAL HIP JOINT (2) Chest pain Code(s): R07.9 - CHEST PAIN, UNSPECIFIED Qualifiers: Chest pain type: precordial pain Qualified Code(s): R07.2 - Precordial pain (3) Hip pain, right Code(s): M25.551 - PAIN IN RIGHT HIP (4) Acute ITP Code(s): D69.3 - IMMUNE THROMBOCYTOPENIC PURPURA (5) CKD (chronic kidney disease) Code(s): N18.9 - CHRONIC KIDNEY DISEASE, UNSPECIFIED Qualifiers: Chronic kidney disease stage: stage 3 (moderate) Qualified Code(s): N18.3 - Chronic kidney disease, stage 3 (moderate) (6) HTN (hypertension) Code(s): I10 - ESSENTIAL (PRIMARY) HYPERTENSION Qualifiers: Hypertension type: essential hypertension Qualified Code(s): I10 - Essential (primary) hypertension (7) Mantle cell lymphoma Code(s): C83.10 - MANTLE CELL LYMPHOMA, UNSPECIFIED SITE Qualifiers: Lymphoma site: unspecified region Qualified Code(s): C83.10 - Mantle cell lymphoma, unspecified site (8) T2DM (type 2 diabetes mellitus) Code(s): E11.9 - TYPE 2 DIABETES MELLITUS WITHOUT COMPLICATIONS Qualifiers: Diabetes mellitus termite treater helper insulin use: without termite treater helper use Diabetes mellitus complication status: without complication Qualified Code(s): E11.9 - Type 2 diabetes mellitus without complications Assessment/Plan Echocardiography dated 08/18/2017 revealed normal bi-ventricular size and function, mild MR and TR 04/02/2018 Echo: RV not well seen, normal LV size and fxn, LVEF 60-65%, RVSP 51 mmHg 1. Atypical chest pain syndrome -> V/Q low prob for post-op PE 2. s/p recent right THR 3. Diastolic dysfunction 4. CAD angina pectoris 5. HTN 6. Type 2 Diabetes mellitus 7. Hypercholesterolemia 8. COPD 9. Acute on CKD improving 10. History of ITP post splenectomy 11. History of Mantle cell lymphoma 12. History of degenerative joint disease 13. Morbid obesity 14. Positive antiphospholipid antibody PLAN: 1. V/Q scan is low prob for PE and LE dopplers negative for DVT, started full dose Lovenox given hypercoagulable state 2. Continue Lopressor 50 bid and Norvasc 5 qd 3. Continue Lasix 40 qd with close monitoring of renal function and electrolytes 4. Analgesia as needed, PT as tolerated 5. Ideally ACEI or ARBS are recommended once renal function at baseline 6. Recommend pharmacologic MPI study as outpatient once clinically stable
[2018-04-05] MEDS: METOPROLOL TARTRATE 50 MG TABLET (FP) PO SCH ×2 (09:48→22:08)
[2018-04-05] MEDS: amLODIPine BESYLATE 5 MG TABLET (FP) PO SCH (09:48)
[2018-04-05] MEDS: CALCIUM CARBONATE 650 MG TABLET PO SCH ×2 (09:48→22:08)
[2018-04-05] MEDS: FUROSEMIDE 40 MG TABLET (FP) PO SCH (09:48)
[2018-04-05] MEDS: PANTOPRAZOLE 40 MG TABLET (FP) PO SCH (09:48)
[2018-04-05] MEDS: DOCUSATE SODIUM 100 MG CAPSULE (FP) PO SCH ×2 (09:48→22:08)
[2018-04-05] MEDS: ENOXAPARIN NA (PORCINE) 100 MG/1 ML DISP.SYRIN SQ SCH ×2 (09:48→22:07)
[2018-04-05] MEDS: ACETAMINOPHEN 325 MG TABLET (FP) PO PRN ×2 (09:48→19:00)
[2018-04-05] MEDS: ATOVAQUONE 750 MG/5 ML (UNIT-DOSE PACKAGING) PO SCH (09:49)
[2018-04-05] MEDS: ALLOPURINOL 100 MG TABLET (FP) PO SCH (09:49)
[2018-04-05] MEDS: BUDESONIDE/FORMETEROL FUMARATE 160/4.5 mcg INHALER IH SCH ×2 (09:49→22:09)
--- NOTE | 2018-04-05 11:05 | PN ---
Progress Note (short form) - Note Progress Note: Patient seen and examined at bedside alert, awake, and oriented Started on lovenox last night off heparin gtt not lethargic today she feels much better and well today spoke with daughter who states her mom is back to herself today daughter endorses wound at right inguinal intertriginous fold Denies nausea vomiting fever or chills Vital Signs Temperature 98.2 F 04/05/18 06:00 Pulse Rate 77 04/05/18 06:00 Respiratory Rate 20 04/05/18 06:00 Blood Pressure 123/56 L 04/05/18 06:00 O2 Sat by Pulse Oximetry (%) 96 04/04/18 21:00 PE: NAD AAox3 CTAB RRR S1 S2 Soft obese non tender non distended Right inguinal intertriginous fold wouns with skin split about a foot long and splitting is about 1-2cm at some spots does not look like there is pus or surrounding erythema but very foul smelling with clumps of nystatin powder in the wound. There is large amount of fibrinous exudate but not heladio pus seen. 04/05/18 04/05/18 06:00 06:00 WBC 16.8 H RBC 3.28 L Hgb 8.9 L Hct 29.3 L MCV 89.2 MCHC 30.4 L RDW 18.0 H Plt Count 417 D Neutrophils % 70.1 Lymphocytes % 11.2 D Monocytes % 13.0 H Eosinophils % 4.2 Basophils % 1.5 Sodium 138 Potassium 4.4 Chloride 98 Carbon Dioxide 28 Anion Gap 12 BUN 30 H Creatinine 2.0 H 67F with multiple medical problems, recent right THR, presents to the hospital with chest tightness and dyspnea on exertion, concern for PE, on heparin gtt. Problem List: Chest pain r/o PE Trop negative x3 HTN DM CKD stage 4 ITP Diabetic nephropathy mantle cell lymphoma s/p splenectomy right groin/inguinal intertriginous fold wound Plan: Patient on full dose 100mg lovenox BID subQ. continue on discharge lower extremity duplex and V/Q scan negative for DVT/PE wound in right inguinal intertriginous fold likely started out as a fungal infection and now has progressed to splitting of the skin. Continue prophylactic nystatin in skin fold on left but on right will stop nystatin power and start bacitracin-Spoke with Dr. Greenberg from vascular surgery/Wound care and will see the patient in consultation will follow with you thank you for this consultative opportunity
[2018-04-05] MEDS: NYSTATIN POWDER 100,000 UNITS/GM - 15 GM TOPICAL POWDER TP SCH ×2 (11:09→22:08)
--- NOTE | 2018-04-05 12:18 | PN ---
Progress Note (short form) - Note Progress Note: Clinically improved. Breathing feels OK. Confusion from yesterday improved. Intake & Output 04/02/18 04/03/18 04/04/18 04/05/18 23:59 23:59 23:59 23:59 Intake Total 1540 1 870 Balance 1540 2090 870 Weight 245 lb Last Vital Signs Temp Pulse Resp BP Pulse Ox 98.8 F 75 20 118/57 L 98 04/05/18 11:11 04/05/18 11:11 04/05/18 11:11 04/05/18 11:11 04/05/18 11:11 Active Medications Acetaminophen (Tylenol -) 650 mg PO Q6H PRN PRN Reason: FEVER/PAIN LEVEL 1-5 Last Admin: 04/05/18 09:48 Dose: 650 mg Albuterol Sulfate (Ventolin Hfa Inhaler -) 2 puff IH Q4H PRN PRN Reason: SHORTNESS OF BREATH Allopurinol (Zyloprim -) 150 mg PO DAILY [facility] Last Admin: 04/05/18 09:49 Dose: 150 mg Alprazolam (Xanax -) 0.5 mg PO Q8H PRN PRN Reason: ANXIETY Last Admin: 04/03/18 21:01 Dose: 0.5 mg Amlodipine Besylate (Norvasc -) 5 mg PO DAILY [facility] Last Admin: 04/05/18 09:48 Dose: 5 mg Atovaquone (Mepron -) 1,500 mg PO DAILY@0800 [facility] Last Admin: 04/05/18 09:49 Dose: 1,500 mg Bacitracin (Bacitracin -) 1 applic TP BID [facility] Budesonide/Formoterol Fumarate (Symbicort 160/4.5mcg -) 2 puff IH BID [facility] Last Admin: 04/05/18 09:49 Dose: 2 puff Calcium Carbonate (Calcium Carbonate -) 650 mg PO BID [facility] Last Admin: 04/05/18 09:48 Dose: 650 mg Docusate Sodium (Colace -) 100 mg PO BID [facility] Last Admin: 04/05/18 09:48 Dose: 100 mg Enoxaparin Sodium (Lovenox -) 100 mg SQ BID [facility] Last Admin: 04/05/18 09:48 Dose: 100 mg Furosemide (Lasix -) 40 mg PO DAILY [facility] Last Admin: 04/05/18 09:48 Dose: 40 mg Glimepiride (Amaryl -) 4 mg PO DAILY@0700 [facility] Last Admin: 04/05/18 06:19 Dose: Not Given Metoprolol Tartrate (Lopressor -) 50 mg PO BID [facility] Last Admin: 04/05/18 09:48 Dose: 50 mg Morphine Sulfate (Msir -) 15 mg PO Q6H PRN PRN Reason: BREAKTHROUGH PAIN 6-10 Last Admin: 04/05/18 06:18 Dose: 15 mg Morphine Sulfate (Ms Contin -) 45 mg PO Q8H [facility] Nystatin (Nystop Powder -) 1 applic TP BID [facility] Last Admin: 04/05/18 11:09 Dose: 1 applic Ondansetron HCl (Zofran Injection) 4 mg IVPUSH Q6H PRN PRN Reason: NAUSEA Last Admin: 04/04/18 11:35 Dose: 4 mg Pantoprazole Sodium (Protonix -) 40 mg PO DAILY [facility] Last Admin: 04/05/18 09:48 Dose: 40 mg Constitutional: Yes: NAD Eyes: Yes: WNL HENT: Yes: WNL Neck: Yes: WNL Cardiovascular: Yes: Regular Rate and Rhythm, S1, S2 Respiratory: Yes: Diminished at the bases Extremities: Yes: WNL Edema: No Labs: Laboratory Results - last 24 hr 04/04/18 04/04/18 04/05/18 14:35 19:15 05:51 WBC RBC Hgb Hct MCV MCH MCHC RDW Plt Count MPV Absolute Neuts (auto) Neutrophils % Lymphocytes % Monocytes % Eosinophils % Basophils % Nucleated RBC % Sodium Potassium Chloride Carbon Dioxide Anion Gap BUN Creatinine Creat Clearance w eGFR POC Glucometer 191 46 Random Glucose Calcium Phosphorus Magnesium Urine Color Straw Urine Appearance Clear Urine pH 6.0 D Ur Specific [place] 1.008 L Urine Protein Negative Urine Glucose (UA) Negative Urine Ketones Negative Urine Blood Negative Urine Nitrite Negative Urine Bilirubin Negative Urine Urobilinogen Negative Ur Leukocyte Esterase Negative 04/05/18 04/05/18 04/05/18 05:52 06:00 06:00 WBC 16.8 H RBC 3.28 L Hgb 8.9 L Hct 29.3 L MCV 89.2 MCH 27.1 MCHC 30.4 L RDW 18.0 H Plt Count 417 D MPV 8.6 Absolute Neuts (auto) 11.8 H Neutrophils % 70.1 Lymphocytes % 11.2 D Monocytes % 13.0 H Eosinophils % 4.2 Basophils % 1.5 Nucleated RBC % 0 Sodium 138 Potassium 4.4 Chloride 98 Carbon Dioxide 28 Anion Gap 12 BUN 30 H Creatinine 2.0 H Creat Clearance w eGFR 24.85 POC Glucometer 56 Random Glucose 52 L Calcium 9.0 Phosphorus 4.9 Magnesium 2.4 Urine Color Urine Appearance Urine pH Ur Specific [place] Urine Protein Urine Glucose (UA) Urine Ketones Urine Blood Urine Nitrite Urine Bilirubin Urine Urobilinogen Ur Leukocyte Esterase 04/05/18 04/05/18 06:49 07:39 WBC RBC Hgb Hct MCV MCH MCHC RDW Plt Count MPV Absolute Neuts (auto) Neutrophils % Lymphocytes % Monocytes % Eosinophils % Basophils % Nucleated RBC % Sodium Potassium Chloride Carbon Dioxide Anion Gap BUN Creatinine Creat Clearance w eGFR POC Glucometer 61 89 Random Glucose Calcium Phosphorus Magnesium Urine Color Urine Appearance Urine pH Ur Specific [place] Urine Protein Urine Glucose (UA) Urine Ketones Urine Blood Urine Nitrite Urine Bilirubin Urine Urobilinogen Ur Leukocyte Esterase Assessment/Plan Problem List - Problems (1) Chest pain Code(s): R07.9 - CHEST PAIN, UNSPECIFIED Qualifiers: Chest pain type: precordial pain Qualified Code(s): R07.2 - Precordial pain (2) Hip pain, right Code(s): M25.551 - PAIN IN RIGHT HIP (3) Status post total hip replacement, right Code(s): Z96.641 - PRESENCE OF RIGHT ARTIFICIAL HIP JOINT (4) Anemia Code(s): D64.9 - ANEMIA, UNSPECIFIED Qualifiers: Anemia type: iron deficiency Iron deficiency anemia type: chronic blood loss Qualified Code(s): D50.0 - Iron deficiency anemia secondary to blood loss (chronic) (5) Atelectasis Code(s): J98.11 - ATELECTASIS (6) CKD (chronic kidney disease) Code(s): N18.9 - CHRONIC KIDNEY DISEASE, UNSPECIFIED Qualifiers: Chronic kidney disease stage: stage 3 (moderate) Qualified Code(s): N18.3 - Chronic kidney disease, stage 3 (moderate) (7) COPD (chronic obstructive pulmonary disease) Code(s): J44.9 - CHRONIC OBSTRUCTIVE PULMONARY DISEASE, UNSPECIFIED (8) Chronic ITP (idiopathic thrombocytopenia) Code(s): D69.3 - IMMUNE THROMBOCYTOPENIC PURPURA (9) Chronic kidney disease Code(s): N18.9 - CHRONIC KIDNEY DISEASE, UNSPECIFIED Qualifiers: (10) Diabetes mellitus Code(s): E11.9 - TYPE 2 DIABETES MELLITUS WITHOUT COMPLICATIONS Qualifiers: Diabetes mellitus type: drug or chemical induced Diabetes mellitus complication status: without complication (11) Diaphragmatic hernia Code(s): K44.9 - DIAPHRAGMATIC HERNIA WITHOUT OBSTRUCTION OR GANGRENE Qualifiers: Obstruction and gangrene presence: without obstruction or gangrene Qualified Code(s): K44.9 - Diaphragmatic hernia without obstruction or gangrene (12) HTN (hypertension) Code(s): I10 - ESSENTIAL (PRIMARY) HYPERTENSION Qualifiers: Hypertension type: essential hypertension Qualified Code(s): I10 - Essential (primary) hypertension (13) History of immunocompromised state Code(s): Z86.2 - PRSNL HISTORY OF DIS OF THE BLD/BLD-FORM ORG/IMMUN MECHNSM (14) ITP (idiopathic thrombocytopenic purpura) Code(s): D69.3 - IMMUNE THROMBOCYTOPENIC PURPURA (15) Mantle cell lymphoma Code(s): C83.10 - MANTLE CELL LYMPHOMA, UNSPECIFIED SITE Qualifiers: Lymphoma site: unspecified region Qualified Code(s): C83.10 - Mantle cell lymphoma, unspecified site (16) Obesity (BMI 35.0-39.9 without comorbidity) Code(s): E66.9 - OBESITY, UNSPECIFIED (17) Osteoarthritis Code(s): M19.90 - UNSPECIFIED OSTEOARTHRITIS, UNSPECIFIED SITE (18) 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 (19) SOB (shortness of breath) Code(s): R06.02 - SHORTNESS OF BREATH (20) Spinal stenosis Code(s): M48.00 - SPINAL STENOSIS, SITE UNSPECIFIED (21) T2DM (type 2 diabetes mellitus) Code(s): E11.9 - TYPE 2 DIABETES MELLITUS WITHOUT COMPLICATIONS Qualifiers: Diabetes mellitus [facility] insulin 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: 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 Diabetes mellitus complication status: without complication Qualified Code(s): E11.9 - Type 2 diabetes mellitus without complications Assessment/Plan IMP: DYSPNEA ALTERED MENTAL STATUS LIKELY SECONDARY TO MEDS COPD ANEMIA RECENT R THR HIGH RISK FOR VTE PLAN: Noted that she is on Full dose Lovenox 100mg BID O2 as needed Pain control Incentive Spirometry Inhaled bronchodilators Dr Nobles Problem List - Problems (1) Chest pain Code(s): R07.9 - CHEST PAIN, UNSPECIFIED Qualifiers: Qualified Code(s): R07.2 - Precordial pain (2) Hip pain, right Code(s): M25.551 - PAIN IN RIGHT HIP (3) Status post total hip replacement, right Code(s): Z96.641 - PRESENCE OF RIGHT ARTIFICIAL HIP JOINT (4) Anemia Code(s): D64.9 - ANEMIA, UNSPECIFIED Qualifiers: Qualified Code(s): D50.0 - Iron deficiency anemia secondary to blood loss ( chronic) (5) Atelectasis Code(s): J98.11 - ATELECTASIS (6) CKD (chronic kidney disease) Code(s): N18.9 - CHRONIC KIDNEY DISEASE, UNSPECIFIED Qualifiers: Qualified Code(s): N18.3 - Chronic kidney disease, stage 3 (moderate) (7) COPD (chronic obstructive pulmonary disease) Code(s): J44.9 - CHRONIC OBSTRUCTIVE PULMONARY DISEASE, UNSPECIFIED (8) Chronic ITP (idiopathic thrombocytopenia) Code(s): D69.3 - IMMUNE THROMBOCYTOPENIC PURPURA (9) Chronic kidney disease Code(s): N18.9 - CHRONIC KIDNEY DISEASE, UNSPECIFIED Qualifiers: (10) Diabetes mellitus Code(s): E11.9 - TYPE 2 DIABETES MELLITUS WITHOUT COMPLICATIONS (11) Diaphragmatic hernia Code(s): K44.9 - DIAPHRAGMATIC HERNIA WITHOUT OBSTRUCTION OR GANGRENE Qualifiers: Qualified Code(s): K44.9 - Diaphragmatic hernia without obstruction or gangrene (12) HTN (hypertension) Code(s): I10 - ESSENTIAL (PRIMARY) HYPERTENSION Qualifiers: Qualified Code(s): I10 - Essential (primary) hypertension (13) History of immunocompromised state Code(s): Z86.2 - PRSNL HISTORY OF DIS OF THE BLD/BLD-FORM ORG/IMMUN MECHNSM (14) ITP (idiopathic thrombocytopenic purpura) Code(s): D69.3 - IMMUNE THROMBOCYTOPENIC PURPURA (15) Mantle cell lymphoma Code(s): C83.10 - MANTLE CELL LYMPHOMA, UNSPECIFIED SITE Qualifiers: Qualified Code(s): C83.10 - Mantle cell lymphoma, unspecified site (16) Obesity (BMI 35.0-39.9 without comorbidity) Code(s): E66.9 - OBESITY, UNSPECIFIED (17) Osteoarthritis Code(s): M19.90 - UNSPECIFIED OSTEOARTHRITIS, UNSPECIFIED SITE (18) 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 (19) SOB (shortness of breath) Code(s): R06.02 - SHORTNESS OF BREATH (20) Spinal stenosis Code(s): M48.00 - SPINAL STENOSIS, SITE UNSPECIFIED (21) T2DM (type 2 diabetes mellitus) Code(s): E11.9 - TYPE 2 DIABETES MELLITUS WITHOUT COMPLICATIONS Qualifiers: Qualified Code(s): E11.9 - Type 2 diabetes mellitus without complications
--- NOTE | 2018-04-05 12:23 | PN ---
Progress Note, Physician Chief Complaint: Ms Painting says she is feeling much better today. Having pain secondary to MS Contin being discontinued. Still with chest pain but it is reproducible. No sob or n/v. - Current Medication List Current Medications: Active Medications Acetaminophen (Tylenol -) 650 mg PO Q6H PRN PRN Reason: FEVER/PAIN LEVEL 1-5 Last Admin: 04/05/18 09:48 Dose: 650 mg Albuterol Sulfate (Ventolin Hfa Inhaler -) 2 puff IH Q4H PRN PRN Reason: SHORTNESS OF BREATH Allopurinol (Zyloprim -) 150 mg PO DAILY [facility] Last Admin: 04/05/18 09:49 Dose: 150 mg Alprazolam (Xanax -) 0.5 mg PO Q8H PRN PRN Reason: ANXIETY Last Admin: 04/03/18 21:01 Dose: 0.5 mg Amlodipine Besylate (Norvasc -) 5 mg PO DAILY [facility] Last Admin: 04/05/18 09:48 Dose: 5 mg Atovaquone (Mepron -) 1,500 mg PO DAILY@0800 [facility] Last Admin: 04/05/18 09:49 Dose: 1,500 mg Bacitracin (Bacitracin -) 1 applic TP BID [facility] Budesonide/Formoterol Fumarate (Symbicort 160/4.5mcg -) 2 puff IH BID [facility] Last Admin: 04/05/18 09:49 Dose: 2 puff Calcium Carbonate (Calcium Carbonate -) 650 mg PO BID [facility] Last Admin: 04/05/18 09:48 Dose: 650 mg Docusate Sodium (Colace -) 100 mg PO BID [facility] Last Admin: 04/05/18 09:48 Dose: 100 mg Enoxaparin Sodium (Lovenox -) 100 mg SQ BID [facility] Last Admin: 04/05/18 09:48 Dose: 100 mg Furosemide (Lasix -) 40 mg PO DAILY [facility] Last Admin: 04/05/18 09:48 Dose: 40 mg Glimepiride (Amaryl -) 4 mg PO DAILY@0700 [facility] Last Admin: 04/05/18 06:19 Dose: Not Given Metoprolol Tartrate (Lopressor -) 50 mg PO BID [facility] Last Admin: 04/05/18 09:48 Dose: 50 mg Morphine Sulfate (Msir -) 15 mg PO Q6H PRN PRN Reason: BREAKTHROUGH PAIN 6-10 Last Admin: 04/05/18 06:18 Dose: 15 mg Morphine Sulfate (Ms Contin -) 45 mg PO Q8H [facility] Nystatin (Nystop Powder -) 1 applic TP BID [facility] Last Admin: 04/05/18 11:09 Dose: 1 applic Ondansetron HCl (Zofran Injection) 4 mg IVPUSH Q6H PRN PRN Reason: NAUSEA Last Admin: 04/04/18 11:35 Dose: 4 mg Pantoprazole Sodium (Protonix -) 40 mg PO DAILY [facility] Last Admin: 04/05/18 09:48 Dose: 40 mg - Objective Vital Signs: Vital Signs Temperature 37.1 C 04/05/18 11:11 Pulse Rate 75 04/05/18 11:11 Respiratory Rate 20 04/05/18 11:11 Blood Pressure 118/57 L 04/05/18 11:11 O2 Sat by Pulse Oximetry (%) 98 04/05/18 11:11 Constitutional: Yes: No Distress, Calm, Obese Cardiovascular: Yes: Regular Rate and Rhythm, Other (reproducible chest pain). No: Gallop, Murmur, Rub Respiratory: Yes: Regular, CTA Bilaterally. No: Rales, Rhonchi, Wheezes Gastrointestinal: Yes: Normal Bowel Sounds, Soft. No: Distention, Tenderness Extremities: Yes: WNL Edema: No Labs: CBC, BMP 04/05/18 06:00 04/05/18 06:00 INR, PTT INR 1.00 (0.83-1.09) 04/02/18 07:00 Problem List - Problems (1) Altered mental status Code(s): R41.82 - ALTERED MENTAL STATUS, UNSPECIFIED (2) Chest pain Code(s): R07.9 - CHEST PAIN, UNSPECIFIED Qualifiers: Chest pain type: precordial pain Qualified Code(s): R07.2 - Precordial pain (3) Elevated WBC count Code(s): D72.829 - ELEVATED WHITE BLOOD CELL COUNT, UNSPECIFIED (4) Status post total hip replacement, right Code(s): Z96.641 - PRESENCE OF RIGHT ARTIFICIAL HIP JOINT (5) Acute on chronic renal failure Code(s): N17.9 - ACUTE KIDNEY FAILURE, UNSPECIFIED; N18.9 - CHRONIC KIDNEY DISEASE, UNSPECIFIED Qualifiers: Chronic kidney disease stage: stage 4 (severe) (6) Anemia Code(s): D64.9 - ANEMIA, UNSPECIFIED Qualifiers: Anemia type: iron deficiency Iron deficiency anemia type: chronic blood loss Qualified Code(s): D50.0 - Iron deficiency anemia secondary to blood loss (chronic) (7) CKD stage 3 secondary to diabetes Code(s): E11.22 - TYPE 2 DIABETES MELLITUS W DIABETIC CHRONIC KIDNEY DISEASE; N18.3 - CHRONIC KIDNEY DISEASE, STAGE 3 (MODERATE) (8) COPD (chronic obstructive pulmonary disease) Code(s): J44.9 - CHRONIC OBSTRUCTIVE PULMONARY DISEASE, UNSPECIFIED (9) Chronic ITP (idiopathic thrombocytopenia) Code(s): D69.3 - IMMUNE THROMBOCYTOPENIC PURPURA (10) Chronic pain Code(s): G89.29 - OTHER CHRONIC PAIN Qualifiers: Chronic pain type: chronic pain syndrome Qualified Code(s): G89.4 - Chronic pain syndrome (11) Diabetes mellitus Code(s): E11.9 - TYPE 2 DIABETES MELLITUS WITHOUT COMPLICATIONS Qualifiers: Diabetes mellitus type: drug or chemical induced Diabetes mellitus complication status: without complication (12) HTN (hypertension) Code(s): I10 - ESSENTIAL (PRIMARY) HYPERTENSION Qualifiers: Hypertension type: essential hypertension Qualified Code(s): I10 - Essential (primary) hypertension (13) 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 Assessment/Plan (1) Altered mental status Assessment/Plan: -toxic metabolic encephalopathy secondary to addition of baclofen -baclofen discontinued -also held MS Contin overnight -patient cleared and now at baseline -will add back MS Contin but at a lower dose (decrease from 60mg tid to 45mg tid ) -monitor to make sure patient tolerates it without excess somnolence Code(s): R41.82 - ALTERED MENTAL STATUS, UNSPECIFIED (2) Chest pain Assessment/Plan: -musculoskeletal in nature -monitor Code(s): R07.9 - CHEST PAIN, UNSPECIFIED Qualifiers: Chest pain type: precordial pain Qualified Code(s): R07.2 - Precordial pain (3) Elevated WBC count Assessment/Plan: -been present entire admission -suspect reactive -monitor Code(s): D72.829 - ELEVATED WHITE BLOOD CELL COUNT, UNSPECIFIED (4) Status post total hip replacement, right Assessment/Plan: -continue PT -on lovenox 100mg bid x4 weeks -d/w hematology Code(s): Z96.641 - PRESENCE OF RIGHT ARTIFICIAL HIP JOINT (5) Acute on chronic renal failure Assessment/Plan: -worsening -secondary to somnolence and poor po intake yesterday -encouraged fluid intake today -recheck tomorrow Code(s): N17.9 - ACUTE KIDNEY FAILURE, UNSPECIFIED; N18.9 - CHRONIC KIDNEY DISEASE, UNSPECIFIED Qualifiers: Chronic kidney disease stage: stage 4 (severe) (6) Anemia Assessment/Plan: -stable -currently no need for transfusion Code(s): D64.9 - ANEMIA, UNSPECIFIED Qualifiers: Anemia type: iron deficiency Iron deficiency anemia type: chronic blood loss Qualified Code(s): D50.0 - Iron deficiency anemia secondary to blood loss (chronic) (7) CKD stage 3 secondary to diabetes Assessment/Plan: -as above Code(s): E11.22 - TYPE 2 DIABETES MELLITUS W DIABETIC CHRONIC KIDNEY DISEASE; N18.3 - CHRONIC KIDNEY DISEASE, STAGE 3 (MODERATE) (8) COPD (chronic obstructive pulmonary disease) Assessment/Plan: -not in exacerbation Code(s): J44.9 - CHRONIC OBSTRUCTIVE PULMONARY DISEASE, UNSPECIFIED (9) Chronic ITP (idiopathic thrombocytopenia) Assessment/Plan: -platelets normal Code(s): D69.3 - IMMUNE THROMBOCYTOPENIC PURPURA (10) Chronic pain Assessment/Plan: -decreased scheduled morphine as above Code(s): G89.29 - OTHER CHRONIC PAIN Qualifiers: Chronic pain type: chronic pain syndrome Qualified Code(s): G89.4 - Chronic pain syndrome (11) Diabetes mellitus Assessment/Plan: -continue amaryl Code(s): E11.9 - TYPE 2 DIABETES MELLITUS WITHOUT COMPLICATIONS Qualifiers: Diabetes mellitus type: drug or chemical induced Diabetes mellitus complication status: without complication (12) HTN (hypertension) Assessment/Plan: -controlled Code(s): I10 - ESSENTIAL (PRIMARY) HYPERTENSION Qualifiers: Hypertension type: essential hypertension Qualified Code(s): I10 - Essential (primary) hypertension (13) 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 Dispo -monitor today, make sure tolerates po and narcotics -recheck bmp tomorrow to follow up creatinine -if creatinine improves and patient stable, can discharge in am -expect discharge in 24-48 hours
[2018-04-05] MEDS: BACITRACIN 15 GM TUBE TOPICAL OINTMENT TP SCH ×2 (13:01→22:07)
[2018-04-05] MEDS: morphine SO4 SUSTAINED ACTING 15 MG TABLET.SA PO SCH ×2 (13:02→22:07)
[2018-04-06] MEDS: morphine SULFATE IMMEDIATE RELEASE 30 MG TAB PO PRN ×3 (02:29→18:23)
[2018-04-06] MEDS ORDERED: PT OWN MED DRAWER 7, Y5N ONE ×2 (05:06→08:53)
[2018-04-06] MEDS: morphine SO4 SUSTAINED ACTING 15 MG TABLET.SA PO SCH ×2 (05:07→12:16)
[2018-04-06] MEDS: ACETAMINOPHEN 325 MG TABLET (FP) PO PRN ×2 (05:59→14:16)
[2018-04-06 07:13] LABS: BASO % 0.8 % (0-2.0); EOS % 5.2 % (0-4.5); HEMATOCRIT 28.4 % (32.4-45.2); HEMOGLOBIN 8.7 GM/dL (10.7-15.3); LYMPH % 9.5 % (8-40); MCH 27.2 pg (25.7-33.7); MCHC 30.7 g/dl (32.0-36.0); MEAN CELL VOLUME 88.8 fl (80-96); MEAN PLT VOLUME 8.7 fl (7.5-11.1); MONO % 9.9 % (3.8-10.2); NEUT % 74.6 % (42.8-82.8); PLATELET COUNT 447 K/MM3 (134-434); RDW 18.2 % (11.6-15.6); WHITE BLOOD COUNT 15.9 K/mm3 (4.0-10.0)
[2018-04-06 07:38] LABS: ANION GAP 9 MMOL/L (8-16); BLOOD UREA NITROGEN 31 mg/dL (7-18); CHLORIDE 97 mmol/L (98-107); CO2 29 mmol/L (21-32); CREATININE 1.9 mg/dL (0.55-1.3); GLUCOSE,RANDOM 95 mg/dL (74-106); MAGNESIUM 2.4 mg/dL (1.8-2.4); PHOSPHOROUS 4.1 mg/dL (2.5-4.9); SODIUM 135 mmol/L (136-145)
[2018-04-06] MEDS: METOPROLOL TARTRATE 50 MG TABLET (FP) PO SCH (09:02)
[2018-04-06] MEDS: ALLOPURINOL 100 MG TABLET (FP) PO SCH (09:02)
[2018-04-06] MEDS: PANTOPRAZOLE 40 MG TABLET (FP) PO SCH (09:02)
[2018-04-06] MEDS: CALCIUM CARBONATE 650 MG TABLET PO SCH (09:02)
[2018-04-06] MEDS: DOCUSATE SODIUM 100 MG CAPSULE (FP) PO SCH (09:02)
[2018-04-06] MEDS: FUROSEMIDE 40 MG TABLET (FP) PO SCH (09:02)
[2018-04-06] MEDS: amLODIPine BESYLATE 5 MG TABLET (FP) PO SCH (09:02)
[2018-04-06] MEDS: ATOVAQUONE 750 MG/5 ML (UNIT-DOSE PACKAGING) PO SCH (09:03)
[2018-04-06] MEDS: NYSTATIN POWDER 100,000 UNITS/GM - 15 GM TOPICAL POWDER TP SCH (09:03)
[2018-04-06] MEDS: ENOXAPARIN NA (PORCINE) 100 MG/1 ML DISP.SYRIN SQ SCH (09:03)
[2018-04-06] MEDS: GLIMEPIRIDE 4 MG TABLET (FP) PO SCH (09:03)
[2018-04-06] MEDS: BUDESONIDE/FORMETEROL FUMARATE 160/4.5 mcg INHALER IH SCH (09:04)
[2018-04-06] MEDS ORDERED: ONDANSETRON *ODT* 4 MG TABLET SL ONE (09:38)
--- NOTE | 2018-04-06 10:01 | PN ---
Progress Note (short form) - Note Progress Note: Ortho Pt seen and examined s/p right daisha thr- improving Selected Entries 04/06/18 06:00 Temperature 98.4 F Pulse Rate 62 Respiratory 20 Rate Blood Pressure 118/50 L Laboratory Tests 04/06/18 05:50 WBC 15.9 H Hgb 8.7 L Hct 28.4 L Plt Count 447 H incision c/d/i, calf soft, nt nvi a/p PT hip precautions dvt ppx pain control d/c planning
--- NOTE | 2018-04-06 10:22 | PN ---
Progress Note (short form) - Note Progress Note: PULMONARY AWAKE/ALERT NOT CONFUSED HAS SOME DISCOMFORT S/P R THR WANTS TO RETURN TO REHAB VSS/AFEBRILE ANICTERIC DIMINISHED BREATH SOUNDS LEFT BASE/OTHERWISE CLEAR S1S2 BS+ SOFT NONTENDER NO CALF TENDERNESS S/P RIGHT THR LABS/NOTES/IMAGES/MEDS REVIEWED DYSPNEA RESOLVED ALTERED MENTAL STATUS LIKELY SECONDARY TO MEDS RESOLVED COPD ANEMIA RECENT R THR HIGH RISK FOR VTE PLAN: Lovenox 100mg BID O2 as needed Pain control Incentive Spirometry Inhaled bronchodilators Agree with transfer to rehab R KENDY OLIVO
--- NOTE | 2018-04-06 12:20 | PN ---
Progress Note, Physician History of Present Illness: Atypical chest pain occurs after using walker c/w musculoskeletal strain, not dyspneic. Sensorium improved to baseline. - Current Medication List Current Medications: Active Medications Acetaminophen (Tylenol -) 650 mg PO Q6H PRN PRN Reason: FEVER/PAIN LEVEL 1-5 Last Admin: 04/06/18 05:59 Dose: 650 mg Albuterol Sulfate (Ventolin Hfa Inhaler -) 2 puff IH Q4H PRN PRN Reason: SHORTNESS OF BREATH Allopurinol (Zyloprim -) 150 mg PO DAILY [facility] Last Admin: 04/06/18 09:02 Dose: 150 mg Alprazolam (Xanax -) 0.5 mg PO Q8H PRN PRN Reason: ANXIETY Last Admin: 04/03/18 21:01 Dose: 0.5 mg Amlodipine Besylate (Norvasc -) 5 mg PO DAILY [facility] Last Admin: 04/06/18 09:02 Dose: 5 mg Atovaquone (Mepron -) 1,500 mg PO DAILY@0800 [facility] Last Admin: 04/06/18 09:03 Dose: 1,500 mg Bacitracin (Bacitracin -) 1 applic TP BID [facility] Last Admin: 04/05/18 22:07 Dose: 1 applic Budesonide/Formoterol Fumarate (Symbicort 160/4.5mcg -) 2 puff IH BID [facility] Last Admin: 04/06/18 09:04 Dose: 2 puff Calcium Carbonate (Calcium Carbonate -) 650 mg PO BID [facility] Last Admin: 04/06/18 09:02 Dose: 650 mg Docusate Sodium (Colace -) 100 mg PO BID [facility] Last Admin: 04/06/18 09:02 Dose: 100 mg Enoxaparin Sodium (Lovenox -) 100 mg SQ BID [facility] Last Admin: 04/06/18 09:03 Dose: 100 mg Furosemide (Lasix -) 40 mg PO DAILY [facility] Last Admin: 04/06/18 09:02 Dose: 40 mg Glimepiride (Amaryl -) 4 mg PO DAILY@0700 [facility] Last Admin: 04/06/18 09:03 Dose: 4 mg Metoprolol Tartrate (Lopressor -) 50 mg PO BID [facility] Last Admin: 04/06/18 09:02 Dose: 50 mg Morphine Sulfate (Msir -) 15 mg PO Q6H PRN PRN Reason: BREAKTHROUGH PAIN 6-10 Last Admin: 04/06/18 09:02 Dose: 15 mg Morphine Sulfate (Ms Contin -) 45 mg PO Q8H [facility] Last Admin: 04/06/18 12:16 Dose: Not Given Nystatin (Nystop Powder -) 1 applic TP BID [facility] Last Admin: 04/06/18 09:03 Dose: 1 applic Pantoprazole Sodium (Protonix -) 40 mg PO DAILY [facility] Last Admin: 04/06/18 09:02 Dose: 40 mg - Objective Vital Signs: Vital Signs Temperature 98.1 F 04/06/18 11:00 Pulse Rate 67 04/06/18 11:00 Respiratory Rate 20 04/06/18 11:00 Blood Pressure 112/50 L 04/06/18 11:00 O2 Sat by Pulse Oximetry (%) 93 L 04/06/18 11:00 Constitutional: Yes: No Distress, Calm Neck: Yes: Supple Cardiovascular: Yes: Regular Rate and Rhythm Respiratory: Yes: Regular, Diminished, On Nasal O2 Gastrointestinal: Yes: Normal Bowel Sounds, Soft Edema: No Labs: CBC, BMP 04/06/18 05:50 04/06/18 05:50 INR, PTT INR 1.00 (0.83-1.09) 04/02/18 07:00 - ....Imaging EKG: Report Reviewed (Tele: NSR) Problem List - Problems (1) Status post total hip replacement, right Code(s): Z96.641 - PRESENCE OF RIGHT ARTIFICIAL HIP JOINT (2) Chest pain Code(s): R07.9 - CHEST PAIN, UNSPECIFIED Qualifiers: Chest pain type: precordial pain Qualified Code(s): R07.2 - Precordial pain (3) Hip pain, right Code(s): M25.551 - PAIN IN RIGHT HIP (4) Acute ITP Code(s): D69.3 - IMMUNE THROMBOCYTOPENIC PURPURA (5) CKD (chronic kidney disease) Code(s): N18.9 - CHRONIC KIDNEY DISEASE, UNSPECIFIED Qualifiers: Chronic kidney disease stage: stage 3 (moderate) Qualified Code(s): N18.3 - Chronic kidney disease, stage 3 (moderate) (6) HTN (hypertension) Code(s): I10 - ESSENTIAL (PRIMARY) HYPERTENSION Qualifiers: Hypertension type: essential hypertension Qualified Code(s): I10 - Essential (primary) hypertension (7) Mantle cell lymphoma Code(s): C83.10 - MANTLE CELL LYMPHOMA, UNSPECIFIED SITE Qualifiers: Lymphoma site: unspecified region Qualified Code(s): C83.10 - Mantle cell lymphoma, unspecified site (8) T2DM (type 2 diabetes mellitus) Code(s): E11.9 - TYPE 2 DIABETES MELLITUS WITHOUT COMPLICATIONS Qualifiers: 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 Atypical chest pain syndrome -> V/Q low prob for post-op PE 2. s/p recent right THR 3. Diastolic dysfunction 4. CAD angina pectoris 5. HTN 6. Type 2 Diabetes mellitus 7. Hypercholesterolemia 8. COPD 9. Acute on CKD improving 10. History of ITP post splenectomy 11. History of Mantle cell lymphoma 12. History of degenerative joint disease 13. Morbid obesity 14. Positive antiphospholipid antibody PLAN: 1. V/Q scan is low prob for PE and LE dopplers negative for DVT, started full dose Lovenox given hypercoagulable state 2. Continue Lopressor 50 bid and Norvasc 5 qd 3. Continue Lasix 40 qd with close monitoring of renal function and electrolytes 4. Analgesia as needed, PT as tolerated, BD and O2 as needed, d/c planning to SNF 5. Ideally ACEI or ARBS are recommended once renal function at baseline 6. Recommend pharmacologic MPI study as outpatient once clinically stable
[2018-04-06] MEDS: BACITRACIN 15 GM TUBE TOPICAL OINTMENT TP SCH (12:28)
--- NOTE | 2018-04-06 13:15 | DS ---
Physical Examination Vital Signs: Vital Signs Temperature 98.1 F 04/06/18 11:00 Pulse Rate 67 04/06/18 11:00 Respiratory Rate 20 04/06/18 11:00 Blood Pressure 112/50 L 04/06/18 11:00 O2 Sat by Pulse Oximetry (%) 93 L 04/06/18 11:00 Constitutional: Yes: Well Nourished, No Distress, Calm Cardiovascular: Yes: Regular Rate and Rhythm. No: Pulse Irregular, Gallop, Murmur Respiratory: Yes: WNL, Regular, CTA Bilaterally. No: Accessory Muscle Use, Cough, Rales, Rhonchi, SOB, SOB on Exertion Gastrointestinal: Yes: WNL, Normal Bowel Sounds, Soft, Abdomen, Obese. No: Distention, Vomiting Renal/: Yes: WNL Musculoskeletal: Yes: WNL Edema: No Labs: CBC, BMP 04/06/18 05:50 04/06/18 05:50 Discharge Summary Reason For Visit: CHEST PAIN, ACUTE RENAL FAILURE SUPERIMPOSED ON Current Active Problems Chest pain (Acute) Elevated WBC count (Acute) Hip pain, right (Acute) Status post total hip replacement, right (Acute) Status post total hip replacement, right (Acute) Hospital Course: 67 year-old female pmh of HTN, Paroxysmal afib, T2DM, Diabetic Nephropathy CKD stage3, Mantel Cell Lymphoma not on treatment, ITP s/p splenectomy admitted for evaluation of chest pain. Pt recently had right hip replacement at [facility] was discharged to [facility] at [facility] 1 week ago where she was not on VTE prophylaxis. Pt started on heparin drip empirically, VQ scan w/ low probability , LE Doppler neg. Pt evaluated by pulm and hematology. Started on Lovenox 100mg bid x 4 weeks. Suspect chest pain to be musculoskeleteral as it is reproducible, tropns neg, ekg neg. Cardiology cleared. Pt developed altered mental status after starting baclofen, resolved when stopped. ARLETTE improved. Elevated wbc noted, suspect reactive. Pt has been cleared by pulm, cardiology, hematology, ortho for discharge. Today, pt doing well, tolerating diet, vitals stable, labs stable. Pt is medically stable for discharge to SNF. Follow up as directed 35 minutes spent in discharge planning Condition: Fair - Instructions Diet, Activity, Other Instructions: HIP PRECAUTIONS PT tolerated Lovenox x 4 weeks zofran/reglan prn Referrals: Rafael Ty MD [Staff Physician] - Kamaljit Bolaños MD [Staff Physician] - 2 Weeks Subhash Mcfarlane MD [Primary Care Provider] - 1 Week - Home Medications Comprehensive Discharge Medication List: Ambulatory Orders Sertraline HCl [Zoloft -] 50 mg PO DAILY 08/28/14 Alprazolam [Xanax] 0.5 mg PO Q8H PRN #0 tablet 09/10/14 Pantoprazole Sodium [Protonix -] 40 mg PO DAILY #0 tablet.ec 09/10/14 Allopurinol [Zyloprim -] 150 mg PO DAILY #60 tablet 04/07/16 Albuterol Sulfate Inhaler - [Ventolin HFA Inhaler -] 1 - 2 inh PO PRN 08/09/16 Docusate Sodium [Colace -] 100 mg PO BID #60 tab-cap 10/29/16 Sitagliptin Phosphate [Januvia] 50 mg PO DAILY 03/18/17 Acetaminophen [Tylenol .Regular Strength -] 650 mg PO PRN 05/26/17 Calcium Carbonate - 650 mg PO BID #60 tablet 08/31/17 Morphine Sulfate 15 mg PO QID PRN #30 tablet MDD 60mg 08/31/17 Amlodipine Besylate [Norvasc -] 5 mg PO DAILY #30 tablet 09/25/17 Budesonide/Formeterol Fumarate [SYMBICORT 160/4.5mcg -] 2 puff IH BID #1 inhaler 09/25/17 Metoprolol Tartrate [Lopressor -] 25 mg PO BID #60 tablet 09/25/17 Atovaquone [Mepron Oral Solution -] 1,500 mg PO DAILY@0800 #1 bottle 10/25/17 Furosemide [Lasix -] 40 mg PO DAILY #30 tablet 10/25/17 Glyburide 4 mg PO DAILY 03/19/18 Rituximab [Rituxan -] 0 mg IVPB Q2M 03/19/18 Bacitracin - [Bacitracin Topical Ointment -] 1 applic TP BID tube 04/06/18 Enoxaparin [Lovenox -] 100 mg SQ BID disp.syrin 04/06/18 Morphine *Sr* [Ms Contin -] 45 mg PO Q8H tablet.sa MDD 3 04/06/18 Nystatin Powder [Nystop Powder -] 1 applic TP BID applic 04/06/18
--- NOTE | 2018-04-06 13:30 | PN ---
Progress Note (short form) - Note Progress Note: Wound care surgical team was consulted to evaluate a Rt groin infection. Pt states that she has a long history of fungal infections in her right groin that come and go. Pt states that she usually treats it with nystatin ointment. Pt states area is a little itchy and tender, but no significant pain. Pt denies fever, chills. Last Vital Signs Temp Pulse Resp BP Pulse Ox 98.1 F 67 20 112/50 L 93 L 04/06/18 11:00 04/06/18 11:00 04/06/18 11:00 04/06/18 11:00 04/06/18 11:00 CBC, BMP 04/06/18 05:50 04/06/18 05:50 PE: Gen; A&O x3 Resp: breathing comfortably Ext: Rt groin shows mild redness underneath panus, some exudative discharge but no pus or collection, Problem List - Problems (1) Fungal skin infection Assessment/Plan: Plan -redness most likely fungal skin infection similar to previous infections -recommend nystatin powder and dry dressing, keep area as dry as possible -no surgical intervention at this time. Code(s): B36.9 - SUPERFICIAL MYCOSIS, UNSPECIFIED
[2018-04-06 14:26] LABS: ANISOCYTOSIS 2+; MACROCYTOSIS 1+; OVALOCYTE 1+; PLATELET ESTIMATE NORMAL; TARGET CELLS 1+; TEAR DROP CELLS 1+
[2018-04-06 15:31] VITALS: BP 148/51; PULSE 62; TEMP 98.3
== END 2018-04-06 18:59 | DRG 682 ==
LOC: JER 21:07 → SUPCPDRO 21:07 → UNDOADMIN 23:41 → JERBED 23:41 → J4S 04-02 17:25
PROVIDERS: ADMIT Internal Medicine; ATTEND Internal Medicine
DX: N17.9 Acute kidney failure, unspecified (principal); G92 Toxic encephalopathy; C83.10 Mantle cell lymphoma, unspecified site; D69.3 Immune thrombocytopenic purpura; I25.110 Atherosclerotic heart disease of native coronary artery with unstable angina pectoris; J98.11 Atelectasis; D68.61 Antiphospholipid syndrome; N18.4 Chronic kidney disease, stage 4 (severe); R07.89 Other chest pain; I12.9 Hypertensive chronic kidney disease with stage 1 through stage 4 chronic kidney disease, or unspecified chronic kidney disease; E11.22 Type 2 diabetes mellitus with diabetic chronic kidney disease; I48.0 Paroxysmal atrial fibrillation; J44.9 Chronic obstructive pulmonary disease, unspecified; D69.6 Thrombocytopenia, unspecified; M54.5 Low back pain; F41.8 Other specified anxiety disorders; M25.551 Pain in right hip; D72.829 Elevated white blood cell count, unspecified; E66.8 Other obesity; G89.4 Chronic pain syndrome; Z90.81 Acquired absence of spleen; Z96.641 Presence of right artificial hip joint; Z86.2 Personal history of diseases of the blood and blood-forming organs and certain disorders involving the immune mechanism; Z68.38 Body mass index [BMI] 38.0-38.9, adult; D50.0 Iron deficiency anemia secondary to blood loss (chronic); M48.00 Spinal stenosis, site unspecified; K44.9 Diaphragmatic hernia without obstruction or gangrene; B36.9 Superficial mycosis, unspecified; T42.8X5A Adverse effect of antiparkinsonism drugs and other central muscle-tone depressants, initial encounter
CPT/HCPCS: 36415; 70450-TC; 71045-TC-FY; 78582-TC; 80048; 80053; 80061; 81003; 81015; 82550; 82553; 82962; 83036; 83721; 83735; 84100; 84443; 84484; 85025; 85610; 85730; 93005; 93010; 93306-TC; 93970-TC; 97116-GP; 99285-25; A9539; A9540; J0475; J1644; J7030; Q0162

== ENCOUNTER 2018-04-12 12:56 | Inpatient (IN) | payer OTHER, MEDICARE ==
[2018-04-12] MEDS ORDERED: ONDANSETRON 4 MG/2 ML VIAL ONE ×2 (13:12→14:10)
[2018-04-12] MEDS ORDERED: ONDANSETRON 4 MG/2 ML VIAL IVPUSH ONE ×2 (13:12→13:53)
[2018-04-12 13:26] VITALS: BMI 39.1
[2018-04-12 13:37] LABS: BASO % 0.2 % (0-2.0); HEMATOCRIT 26.1 % (32.4-45.2); HEMOGLOBIN 8.2 GM/dL (10.7-15.3); LYMPH % 2.5 % (8-40); MCHC 31.4 g/dl (32.0-36.0); MEAN CELL VOLUME 89.3 fl (80-96); MEAN PLT VOLUME 10.1 fl (7.5-11.1); MONO % 6.7 % (3.8-10.2); NEUT % 90.6 % (42.8-82.8); PLATELET COUNT 331 K/MM3 (134-434); RBC 2.92 M/mm3 (3.60-5.2)
[2018-04-12] MEDS ORDERED: VANCOMYCIN 1 GRAM (PRE-DOCKED) 1,000 MG/250 ML BAG IVPB ONE ×2 (13:43→13:49)
[2018-04-12] MEDS ORDERED: PIPERACILLIN/TAZOB 3.375 GM 3.375 GM in DEXTROSE 5%-WATER - 50 ML IVPB ONE (13:43)
[2018-04-12] MEDS ORDERED: PIPERACILLIN/TAZOB 3.375 GM 3.375 GM/50 ML BAG IVPB ONE (13:49)
[2018-04-12 13:51] LABS: INR 1.37 (0.83-1.09); PROTHROMBIN TIME (PATIENT) 16.2 SEC (9.7-13.0)
[2018-04-12] MEDS ORDERED: LIDOCAINE HCL 1%, 10 MG/ML (20ML VIAL) ONE (13:51)
[2018-04-12] MEDS ORDERED: SODIUM CHLORIDE 0.9% 1000 ML INFUS.BAG IV ONE (13:53)
[2018-04-12] MEDS ORDERED: ACETAMINOPHEN 1000 MG/100 ML VIAL (NON FORMULARY) IVPB ONE (13:53)
--- NOTE | 2018-04-12 13:53 | PDOC ---
Attending Attestation - Resident Resident Name: Christopher Ramos - ED Attending Attestation I have performed the following: I have examined & evaluated the patient, The case was reviewed & discussed with the resident, I agree w/resident's findings & plan, Exceptions are as noted - HPI HPI: 04/12/18 14:45 67 years old past medical history significant for hypertension paroxysmal A. fib type 2 diabetes diabetic neuropathy chronic kidney disease stage III mental cell lymphoma not on treatment ITP status post splenectomy presents emergency Department with likely sepsis patient feeling weak hypotensive upon arrival pain to right hip, complaining also of chronic back discomfort symptoms been progressive over the last 2 days no alleviating factors - Physicial Exam PE: 04/12/18 14:50 Vitals: Triage Vital signs reviewed General Appearance: pale, ill appearing Head: Atraumatic, Eyes: Pupils equal reactive round, extraocular movement intact Neck: Supple;No Nucal rigidity Chest Wall: Nontender Cardiac: poor air movement, crackles at bases Abdomen: Soft, non distended, normal bowel sounds, non tender to palpation Extremities: Full range of motion to all extremities, no cyanosis, clubbing, or edema Skin: Warm and dry Neuro: Strength intact to all extremities, Sensation intact to all extremities, Psych: normal mood, normal affect - Critical Care Time Total Critical Care Time: 120 Critical Care Statement: The care of this patient involved high complexity decision making to prevent further life threatening deterioration of the patient 's condition and/or to evaluate & treat vital organ system(s) failure or risk of failure. - Medical Decision Making 04/12/18 14:52 67 years old past medical history significant for hypertension paroxysmal A. fib type 2 diabetes diabetic neuropathy chronic kidney disease stage III mental cell lymphoma not on treatment ITP status post splenectomy presents emergency Department with likely sepsis patient feeling weak hypotensive upon arrival pain to right hip, complaining also of chronic back discomfort symptoms been progressive over the last 2 days no alleviating factors Patient critically ill presents emergency Department hypotensive with cool extremities IV access obtained aggressive fluid resuscitation Patient's CODE STATUS confirmed patient is amenable to central line, pressors aggressive antibiotics but would not want compressions or intubation Broad-spectrum antibiotics ordered. 4 L normal saline ordered. Levophed started Goals of care re-addressed with patient We'll admit patient to ICU for further management. Heart Score/ECG Review - ECG Impressions Comment:: 04/12/18 15:29 EKG performed at 1510. Demonstrates normal sinus rhythm incomplete right bundle- branch block no ST elevations or T-wave inversions Interpreted by me.
[2018-04-12 13:54] LABS: ACTIVATED PTT 31.2 SECONDS (25.2-36.5)
[2018-04-12] MEDS ORDERED: NOREPINEPHRINE BITARTRATE 8,000 MCG in SODIUM CHLORIDE 0.45% 992 ML IV SCH (14:00)
[2018-04-12 14:01] LABS: WHITE BLOOD COUNT 30.4 K/mm3 (4.0-10.0)
[2018-04-12] MEDS ORDERED: ACETAMINOPHEN INJECTION 100 ML IVPB ONE (14:05)
[2018-04-12 14:50] LABS: ALBUMIN 2.6 g/dl (3.4-5.0); ALK PHOS 124 U/L (45-117); ANION GAP 21 MMOL/L (8-16); BILIRUBIN,TOTAL 0.9 mg/dL (0.2-1); BLOOD UREA NITROGEN 59 mg/dL (7-18); CALCIUM 8.6 mg/dL (8.5-10.1); CHLORIDE 86 mmol/L (98-107); CO2 17 mmol/L (21-32); CREATININE 4.7 mg/dL (0.55-1.3); GLUCOSE,RANDOM 212 mg/dL (74-106); SGOT/AST 7279 U/L (15-37); SGPT/ALT 3742 U/L (13-61); SODIUM 124 mmol/L (136-145); TOT PROT 6.3 g/dl (6.4-8.2)
[2018-04-12 15:01] LABS: URINE APPEARANCE SLCLOUDY; URINE BILIRUBIN NEGATIVE (<2.0 mg/dL); URINE COLOR YELLOW; URINE GLUCOSE (UA) NEGATIVE (NEGATIVE); URINE KETONE NEGATIVE (NEGATIVE); URINE LEUK ESTERASE TRACE (NEGATIVE); URINE NITRITE NEGATIVE (NEGATIVE); URINE PROTEIN 2+ (NEGATIVE); URINE UROBILINOGEN NEGATIVE mg/dL (0.2-1.0)
[2018-04-12 15:02] LABS: EPI CELLS FEW /HPF (FEW); URINE MUCUS RARE
--- NOTE | 2018-04-12 15:03 | HP ---
Admitting History and Physical - Primary Care Physician PCP: Subhash Mcfarlane - Admission Chief Complaint: sob History of Present Illness: 67 year old female pmh of HTN, Paroxysmal afib,NIDDM,CKD-3, Mantel Cell Lymphoma not on treatment, ITP s/p splenectomy, recent hospital admission last week presents from SNF with progressive sob and weakness. She reports she has been more sob over the last 3 days. She also reports fatigue, nausea and reduced po intake. She c/o constipation few days ago which resolved with enema. Otherwise, denies any chest pain, vomiting, fever/chills, diarrhea, rash, unilateral weakness. Daughter at bedside. In ED. pt hypotensive, in septic shock 2/2 LLL pna requiring pressors. History Source: Patient, Family Member - Past Medical History Cardiovascular: Yes: HTN. No: AFIB Pulmonary: Yes: COPD, Other (elevated left hemidiaphragm) Gastrointestinal: Yes: Diverticulitis (osteoarthritis right hip). No: Ascites Hepatobiliary: No: Cirrhosis Renal/: Yes: Renal Calculi, UTI, Other (bladder dysfunction). No: Renal Failure Heme/Onc: Yes: Thrombocytopenia (s/p splenectomy), Other (lymphoma -Mantle cell) Psych: Yes: Anxiety, Depression Musculoskeletal: Yes: Chronic low back pain, Osteoarthritis (right hip) Rheumatology: Yes: Other (degenerative spine disease) Endocrine: Yes: Diabetes Mellitus - Past Surgical History Past Surgical History: Yes: Joint Replacement (right hip replacement 03/22), Laminectomy (cervical laminectomy x2 (2001)), Splenectomy, Thoracotomy - Advance Directives Advance Directives: Yes: DNR - Smoking History Smoking history: Former smoker Have you smoked in the past 12 months: No Aproximately how many cigarettes per day: 0 If you are a former smoker, when did you quit?: 2001 - Alcohol/Substance Use Hx Alcohol Use: No History of Substance Use: reports: None - Social History ADL: Independent 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, , 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 History of Recent Travel: No Home Medications - Allergies Allergies/Adverse Reactions: Allergies Allergy/AdvReac Type Severity Reaction Status Date / Time pregabalin [From Lyrica] Allergy Severe Swelling Verified 04/12/18 13:26 ciprofloxacin HCl Allergy Intermediate Itching Verified 04/12/18 13:26 [From Cipro] levofloxacin [From Levaquin] Allergy Intermediate Rash Verified 04/12/18 13:26 atorvastatin calcium Allergy Mild muscle Verified 04/12/18 13:26 [From Lipitor] aches - Home Medications Home Medications: Ambulatory Orders Sertraline HCl [Zoloft -] 50 mg PO DAILY 08/28/14 Alprazolam [Xanax] 0.5 mg PO Q8H PRN #0 tablet 09/10/14 Pantoprazole Sodium [Protonix -] 40 mg PO DAILY #0 tablet.ec 09/10/14 Allopurinol [Zyloprim -] 150 mg PO DAILY #60 tablet 04/07/16 Albuterol Sulfate Inhaler - [Ventolin HFA Inhaler -] 1 - 2 inh PO PRN 08/09/16 Docusate Sodium [Colace -] 100 mg PO BID #60 tab-cap 10/29/16 Acetaminophen [Tylenol .Regular Strength -] 650 mg PO PRN 05/26/17 Calcium Carbonate - 650 mg PO BID #60 tablet 08/31/17 Morphine Sulfate 15 mg PO QID PRN #30 tablet MDD 60mg 08/31/17 Amlodipine Besylate [Norvasc -] 5 mg PO DAILY #30 tablet 09/25/17 Budesonide/Formeterol Fumarate [SYMBICORT 160/4.5mcg -] 2 puff IH BID #1 inhaler 09/25/17 Metoprolol Tartrate [Lopressor -] 25 mg PO BID #60 tablet 09/25/17 Atovaquone [Mepron Oral Solution -] 1,500 mg PO DAILY@0800 #1 bottle 10/25/17 Furosemide [Lasix -] 40 mg PO DAILY #30 tablet 10/25/17 Glyburide 4 mg PO DAILY 03/19/18 Rituximab [Rituxan -] 0 mg IVPB Q2M 03/19/18 Bacitracin - [Bacitracin Topical Ointment -] 1 applic TP BID tube 04/06/18 Enoxaparin [Lovenox -] 100 mg SQ BID disp.syrin 04/06/18 Morphine *Sr* [Ms Contin -] 45 mg PO Q8H tablet.sa MDD 3 04/06/18 Nystatin Powder [Nystop Powder -] 1 applic TP BID applic 04/06/18 Family Disease History - Family Disease History Family Disease History: Diabetes: Mother, Heart Disease: Mother, Other: Father ( thrombocytopenia), Daughter (hypothyroidism) Review of Systems Findings/Remarks: as per HPI Physical Examination Vital Signs: Vital Signs Temperature 98.5 F 04/12/18 13:24 Pulse Rate 77 04/12/18 14:55 Respiratory Rate 26 H 04/12/18 14:00 Blood Pressure 77/54 L 04/12/18 14:55 O2 Sat by Pulse Oximetry (%) Constitutional: Yes: Well Nourished, Calm, Mild Distress Cardiovascular: Yes: Regular Rate and Rhythm. No: Murmur, Rub Respiratory: Yes: Diminished, SOB, Tachypnea. No: Wheezes Gastrointestinal: Yes: WNL, Normal Bowel Sounds, Soft, Abdomen, Obese. No: Distention, Tenderness Renal/: Yes: WNL Extremities: Yes: WNL Edema: No Neurological: Yes: WNL, Alert, Oriented Psychiatric: Yes: WNL, Alert, Oriented Labs: CBC, BMP 04/12/18 13:20 04/12/18 13:20 Problem List - Problems (1) Septic shock Assessment/Plan: with MODS, 2/2 LLL PNA chest xray- LLL infiltrate/atelectasis wbc 30k w/ left shift, lactic acid 8, +anion gap ABG ordered blood cultures/urine legionella pending cardiac echo ordered- r/o endocarditis respiratory support per ICU trend lactic acid, troponin IVF/ antibx case discussed with ID ICU level of care prognosis guarded Code(s): A41.9 - SEPSIS, UNSPECIFIED ORGANISM; R65.21 - SEVERE SEPSIS WITH SEPTIC SHOCK (2) HAP (hospital-acquired pneumonia) Assessment/Plan: recent hospitalization resides in [facility] as above Code(s): J18.9 - PNEUMONIA, UNSPECIFIED ORGANISM (3) Shock liver Assessment/Plan: as above 2/2 sepsis monitor Code(s): K72.00 - ACUTE AND SUBACUTE HEPATIC FAILURE WITHOUT COMA (4) Acute kidney failure Assessment/Plan: 2/2 sepsis baseline cr 1.9 as above Code(s): N17.9 - ACUTE KIDNEY FAILURE, UNSPECIFIED (5) Acute respiratory failure with hypoxia Assessment/Plan: abg ordered management per ICU Code(s): J96.01 - ACUTE RESPIRATORY FAILURE WITH HYPOXIA (6) Hyperkalemia Assessment/Plan: 2/2 ARLETTE, sepsis IVF hydration recheck bmp Code(s): E87.5 - HYPERKALEMIA (7) Hyponatremia Assessment/Plan: hypovolemic IVF-NS monitor bmp Code(s): E87.1 - HYPO-OSMOLALITY AND HYPONATREMIA (8) Troponin level elevated Assessment/Plan: suspect demand trend troponin Code(s): R74.8 - ABNORMAL LEVELS OF OTHER SERUM ENZYMES (9) Lactic acidosis Assessment/Plan: trend Code(s): E87.2 - ACIDOSIS (10) Leukocytosis Assessment/Plan: as above Code(s): D72.829 - ELEVATED WHITE BLOOD CELL COUNT, UNSPECIFIED (11) Anxiety Assessment/Plan: stable Code(s): F41.9 - ANXIETY DISORDER, UNSPECIFIED (12) CKD (chronic kidney disease) Assessment/Plan: acute on chronic Code(s): N18.9 - CHRONIC KIDNEY DISEASE, UNSPECIFIED Qualifiers: Chronic kidney disease stage: stage 3 (moderate) Qualified Code(s): N18.3 - Chronic kidney disease, stage 3 (moderate) (13) COPD (chronic obstructive pulmonary disease) Assessment/Plan: chronic Code(s): J44.9 - CHRONIC OBSTRUCTIVE PULMONARY DISEASE, UNSPECIFIED (14) Chronic ITP (idiopathic thrombocytopenia) Assessment/Plan: stable Code(s): D69.3 - IMMUNE THROMBOCYTOPENIC PURPURA (15) Diabetes mellitus Assessment/Plan: BGM Insulin sliding scale Code(s): E11.9 - TYPE 2 DIABETES MELLITUS WITHOUT COMPLICATIONS Qualifiers: Diabetes mellitus type: drug or chemical induced Diabetes mellitus custodial insulin use: without operations research manager use Diabetes mellitus complication status : without complication Qualified Code(s): E09.9 - Drug or chemical induced diabetes mellitus without complications (16) HTN (hypertension) Assessment/Plan: hypotensive hold meds Code(s): I10 - ESSENTIAL (PRIMARY) HYPERTENSION Qualifiers: Hypertension type: essential hypertension Qualified Code(s): I10 - Essential (primary) hypertension (17) 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 (18) Chronic pain Assessment/Plan: stable morphine prn Code(s): G89.29 - OTHER CHRONIC PAIN Qualifiers: Chronic pain type: chronic pain syndrome Qualified Code(s): G89.4 - Chronic pain syndrome (19) Obesity (BMI 35.0-39.9 without comorbidity) Code(s): E66.9 - OBESITY, UNSPECIFIED Assessment/Plan 40 minutes spent in reviewing chart, formulating plan . Continue ICU level monitoring
--- NOTE | 2018-04-12 15:03 | PDOC ---
History of Present Illness - General Chief Complaint: Blood Pressure Problem Stated Complaint: LOW BLOOD PRESSURE Time Seen by Provider: 04/12/18 13:10 History Source: Patient, Family Exam Limitations: Clinical Condition - History of Present Illness Initial Comments: 04/12/18 15:02 Patient is a 67F with history of ITP s/p splenectomy, Lymphoma (in remission), CKD, DM, HTN, R hip replacement here today complaining of shortness of breath. EMS reports that her blood pressure was not obtainable and they were not able to get sp02 readings in the field. Patient was alert and oriented. EMS reports cold and clammy extremities. Patient states that she's had more difficultly breathing for the past 3 days. Endorses fevers, chills, nausea. Denies chest pain. Endorses R hip pain, s/p recent replacement. Reports constipation for past two days. Past History - Past Medical History Allergies/Adverse Reactions: Allergies Allergy/AdvReac Type Severity Reaction Status Date / Time pregabalin [From Lyrica] Allergy Severe Swelling Verified 04/12/18 13:26 ciprofloxacin HCl Allergy Intermediate Itching Verified 04/12/18 13:26 [From Cipro] levofloxacin [From Levaquin] Allergy Intermediate Rash Verified 04/12/18 13:26 atorvastatin calcium Allergy Mild muscle Verified 04/12/18 13:26 [From Lipitor] aches Home Medications: Ambulatory Orders Sertraline HCl [Zoloft -] 50 mg PO DAILY 08/28/14 Alprazolam [Xanax] 0.5 mg PO Q8H PRN #0 tablet 09/10/14 Pantoprazole Sodium [Protonix -] 40 mg PO DAILY #0 tablet.ec 09/10/14 Allopurinol [Zyloprim -] 150 mg PO DAILY #60 tablet 04/07/16 Albuterol Sulfate Inhaler - [Ventolin HFA Inhaler -] 1 - 2 inh PO PRN 08/09/16 Docusate Sodium [Colace -] 100 mg PO BID #60 tab-cap 10/29/16 Acetaminophen [Tylenol .Regular Strength -] 650 mg PO PRN 05/26/17 Calcium Carbonate - 650 mg PO BID #60 tablet 08/31/17 Morphine Sulfate 15 mg PO QID PRN #30 tablet MDD 60mg 08/31/17 Amlodipine Besylate [Norvasc -] 5 mg PO DAILY #30 tablet 09/25/17 Budesonide/Formeterol Fumarate [SYMBICORT 160/4.5mcg -] 2 puff IH BID #1 inhaler 09/25/17 Metoprolol Tartrate [Lopressor -] 25 mg PO BID #60 tablet 09/25/17 Atovaquone [Mepron Oral Solution -] 1,500 mg PO DAILY@0800 #1 bottle 10/25/17 Furosemide [Lasix -] 40 mg PO DAILY #30 tablet 10/25/17 Glyburide 4 mg PO DAILY 03/19/18 Rituximab [Rituxan -] 0 mg IVPB Q2M 03/19/18 Bacitracin - [Bacitracin Topical Ointment -] 1 applic TP BID tube 04/06/18 Enoxaparin [Lovenox -] 100 mg SQ BID disp.syrin 04/06/18 Morphine *Sr* [Ms Contin -] 45 mg PO Q8H tablet.sa MDD 3 04/06/18 Nystatin Powder [Nystop Powder -] 1 applic TP BID applic 04/06/18 Anemia: No (ICP) Asthma: Yes Cancer: Yes (lymphoma) Cardiac Disorders: (SOB) CVA: No COPD: No CHF: No Dementia: No Diabetes: Yes (niddm) GI Disorders: Yes (DIVERTICULOSIS) Disorders: Yes (renal calculi) HTN: Yes Hypercholesterolemia: Yes Liver Disease: No Psychiatric Problems: Yes (ANXIETY) Seizures: No Thyroid Disease: No - Surgical History Abdominal Surgery: Yes (SPLENECTOMY) Appendectomy: No Cardiac Surgery: No Cholecystectomy: No Lung Surgery: No Neurologic Surgery: Yes (cervical laminectomy x 2) Orthopedic Surgery: Yes (Anterior and posterior cervical laminectomy with fusion ) - Immunization History Immunization Up to Date: Yes - Suicide/Smoking/Psychosocial Hx Smoking Status: No Smoking History: Former smoker Have you smoked in the past 12 months: No Number of Cigarettes Smoked Daily: 0 If you are a former smoker, when did you quit?: 2001 Information on smoking cessation initiated: No Hx Alcohol Use: No Drug/Substance Use Hx: No Substance Use Type: None Hx Substance Use Treatment: No Review of Systems - Review of Systems Comments:: 04/12/18 15:10 GENERAL/CONSTITUTIONAL: +fever +chills. +weakness. HEAD, EYES, EARS, NOSE AND THROAT: No change in vision. No sore throat. CARDIOVASCULAR: No chest pain +shortness of breath RESPIRATORY: No cough, wheezing, or hemoptysis. GASTROINTESTINAL: +nausea, no vomiting, diarrhea or constipation. GENITOURINARY: No dysuria, frequency, or change in urination. MUSCULOSKELETAL: +R hip pain. No neck or back pain. SKIN: No rash NEUROLOGIC: No headache, vertigo, loss of consciousness, or change in strength/ sensation. ENDOCRINE: No increased thirst. No abnormal weight change HEMATOLOGIC/LYMPHATIC: No anemia or history of blood clots. +history of easy bleeding ALLERGIC/IMMUNOLOGIC: No hives or skin allergy. *Physical Exam - Vital Signs Last Vital Signs Temp Pulse Resp BP Pulse Ox 98.5 F 77 26 H 117/69 04/12/18 13:24 04/12/18 14:00 04/12/18 14:00 04/12/18 14:00 - Physical Exam Comments: 04/12/18 15:11 GENERAL: Awake, alert, and fully oriented, in acute distress HEAD: No signs of trauma, normocephalic, atraumatic EYES: PERRLA, EOMI, sclera anicteric, conjunctiva clear ENT: Auricles normal inspection, hearing grossly normal, nares patent, oropharynx clear without exudates. Dry mucosa NECK: Normal ROM, supple, no lymphadenopathy, JVD, or masses LUNGS: In distress, using accessory muscles, coarse bilaterally HEART: Regular rate and rhythm, normal S1 and S2, no murmurs, rubs or gallops, peripheral pulses normal and equal bilaterally. ABDOMEN: Soft, nontender, normoactive bowel sounds. No guarding, no rebound. No masses EXTREMITIES: Cyanotic, clammy, cold NEUROLOGICAL: Cranial nerves II through XII grossly intact. Normal speech, no focal sensorimotor deficits SKIN: Warm, Dry, normal turgor, no rashes or lesions noted. Procedures - Central Line Central Line Lumen: triple Central Line Position: femoral (R) Anesthesia: 1% Lidocaine Amount of anesthesia (ccs): 5 Complications: none Post Central Line Insertion: sutured, good blood return Progress: 04/12/18 15:07 Tolerated without complication. Confirmed placement with US guidance and venous blood flow. ED Treatment Course - LABORATORY CBC & Chemistry Diagram: 04/12/18 13:20 04/12/18 13:20 - ADDITIONAL ORDERS Additional order review: Laboratory Results 04/12/18 04/12/18 04/12/18 14:42 13:20 13:20 PT with INR INR PTT (Actin FS) VBG pH POC VBG pCO2 POC VBG pO2 Mixed VBG HCO3 Sodium Potassium Chloride Carbon Dioxide Anion Gap BUN Creatinine Creat Clearance w eGFR Random Glucose Lactic Acid 8.2 H* Calcium Total Bilirubin AST ALT Alkaline Phosphatase Troponin I 0.08 H Total Protein Albumin Urine Color Yellow Urine Appearance Slcloudy Urine pH 5.0 Ur Specific [place] 1.014 Urine Protein 2+ H Urine Glucose (UA) Negative Urine Ketones Negative Urine Blood Negative Urine Nitrite Negative Urine Bilirubin Negative Urine Urobilinogen Negative Ur Leukocyte Esterase Trace Urine WBC (Auto) 10 Urine RBC (Auto) 2 Ur Epithelial Cells Few Urine Mucus Rare 04/12/18 04/12/18 04/12/18 13:20 13:20 13:20 PT with INR 16.20 H INR 1.37 H PTT (Actin FS) 31.2 VBG pH Cancelled POC VBG pCO2 Cancelled POC VBG pO2 Cancelled Mixed VBG HCO3 Cancelled Sodium 124 L Potassium 6.0 H Chloride 86 L Carbon Dioxide 17 L Anion Gap 21 H BUN 59 H Creatinine 4.7 H Creat Clearance w eGFR 9.27 Random Glucose 212 H Lactic Acid Calcium 8.6 Total Bilirubin 0.9 AST 7279 H ALT 3742 H Alkaline Phosphatase 124 H Troponin I Total Protein 6.3 L Albumin 2.6 L Urine Color Urine Appearance Urine pH Ur Specific [place] Urine Protein Urine Glucose (UA) Urine Ketones Urine Blood Urine Nitrite Urine Bilirubin Urine Urobilinogen Ur Leukocyte Esterase Urine WBC (Auto) Urine RBC (Auto) Ur Epithelial Cells Urine Mucus 04/12/18 13:20 RBC 2.92 L MCV 89.3 MCHC 31.4 L RDW 18.0 H MPV 10.1 D Neutrophils % 90.6 H Lymphocytes % 2.5 L D Monocytes % 6.7 Eosinophils % 0.0 D Basophils % 0.2 - RADIOLOGY Radiology Studies Ordered: Category Date Time Status CHEST X-RAY PORTABLE* [RAD] Stat Radiology 04/12/18 13:10 Completed - Medications Given in the ED: ED Medications Discontinued Medications Generic Name Dose Route Start Last Admin Trade Name Freq PRN Reason Stop Dose Admin Acetaminophen 1,000 mg 04/12/18 13:53 04/12/18 13:20 Ofirmev Injection - IVPB 04/12/18 13:54 1,000 mg ONCE ONE Administration Piperacillin Sod/Tazobactam 50 mls @ 100 mls/hr 04/12/18 13:43 04/12/18 13:50 Sod 3.375 gm/ Dextrose IVPB 04/12/18 14:12 100 mls/hr ONCE ONE Administration Protocol Ondansetron HCl 4 mg 04/12/18 13:12 04/12/18 13:30 Zofran Injection IVPUSH 04/12/18 13:13 4 mg ONCE ONE Administration Ondansetron HCl 4 mg 04/12/18 13:53 04/12/18 13:15 Zofran Injection IVPUSH 04/12/18 13:54 4 mg ONCE ONE Administration Sodium Chloride 2,000 ml 04/12/18 13:53 04/12/18 13:55 Normal Saline - IV 04/12/18 13:54 2,000 ml ONCE ONE Administration Vancomycin HCl 1,000 mg 04/12/18 13:43 04/12/18 14:31 Vancomycin (Pre-Docked) IVPB 04/12/18 13:44 1,000 mg ONCE ONE Administration Protocol Medical Decision Making - Critical Care Time Total Critical Care Time (minutes): 120 Critical Care Statement: The care of this patient involved high complexity decision making to prevent further life threatening deterioration of the patient 's condition and/or to evaluate & treat vital organ system(s) failure or risk of failure. - Medical Decision Making 04/12/18 15:12 Patient is 67F with history of ITP, CKD, R hip replacement here today with respiratory distress. BPs difficult to measure, reading of 130/110 not likely correct, manual BPs 60s/40s. Patient's extremities appear as if she is in shock. Afebrile, temp 98.3. spO2 difficultly to obtain, but sats in 90-97 range when waveform obtained on NRB. Given 3L, tylenol, vanc, zosyn. Central line placed in right femoral vein. CXR shows left lower lobe infiltrate. 04/12/18 15:28 Laboratory Tests 04/06/18 04/12/18 04/12/18 05:50 13:20 13:20 WBC 30.4 H* Hgb 8.2 L Plt Count 331 D PT with INR 16.20 H INR 1.37 H Sodium Potassium Chloride Carbon Dioxide Anion Gap BUN Creatinine 1.9 H Random Glucose Lactic Acid AST ALT Troponin I 04/12/18 04/12/18 04/12/18 13:20 13:20 13:20 WBC Hgb Plt Count PT with INR INR Sodium 124 L Potassium 6.0 H Chloride 86 L Carbon Dioxide 17 L Anion Gap 21 H BUN 59 H Creatinine 4.7 H Random Glucose 212 H Lactic Acid 8.2 H* AST 7279 H ALT 3742 H Troponin I 0.08 H CBC shows marked leukocytosis. INR elevated but not critically so. CMP shows ARLETTE , evidence of shock liver. Lactic acid 8.2. Repeat lactic acid order placed. Trop mildly elevated to 0.08. Patient started on levophed, goal MAP 65. Patient accepted Dr Alonso for Dr Nobles for the ICU. Dr Bocanegra accepted admission. *DC/Admit/Observation/Transfer Diagnosis at time of Disposition: Pneumonia, Septic shock, MODS (multiple organ dysfunction syndrome) - Discharge Dispostion Condition at time of disposition: Critical Decision to Admit order: Yes - Referrals - Patient Instructions - Post Discharge Activity
[2018-04-12] MEDS ORDERED: SODIUM CHLORIDE 1,000 ML IV STA ×2 (15:07→20:26)
[2018-04-12] MEDS ORDERED: morphine SULFATE IMMEDIATE RELEASE 30 MG TAB PO PRN (15:23)
[2018-04-12] MEDS ORDERED: morphine SO4 SUSTAINED ACTING 15 MG TABLET.SA PO SCH (15:30)
[2018-04-12] MEDS ORDERED: SODIUM CHLORIDE 1,000 ML IV SCH (15:30)
--- NOTE | 2018-04-12 15:41 | CONSULT ---
Consultation: REQUESTING PROVIDER:Dr. Ed Bocanegra CONSULT REQUEST: We have been asked to medically evaluate this patient for septic shock. HISTORY OF PRESENT ILLNESS: Patient is a 67 year old female with past medical history of HTN, Paroxysmal A.Fib, Type 2 DM, CKD stage 4 (baseline GFR <29) 2/2 Diabetic Nephropathy, Mantle cell lymphoma (not on treatment), ITP s/p splenectomy with multiple relapse, BIBEMS due to shortness of breath for 3 days. At the long term, patient was reported to have unobtainable blood pressure. EMS arrived and was also unable to obtain blood pressure and spO2 readings. Patient was reported to have cold and clammy extremities with difficulty breathing. Patient also reports to have fever, chills and nausea. Patient has been having abdominal discomfort due to constipation for the past 2 days and was given stool softeners with bowel movements this morning. Patient denies chest pain, palpitations, urinary symptoms. At the ED, blood pressure and spO2 still unobtainable. Manual BP done, and patient was noted to be hypotensive at 60s/40s. Femoral line placed. Patient was given 3L IV NS, but remained hypotensive with MAP at 50s. Norepinephrine drip started. Patient admitted to ICU for closer monitoring. REVIEW OF SYSTEMS: CONSTITUTIONAL: Absent: fever, chills, diaphoresis, malaise, loss of appetite, weight change HEENT: Absent: rhinorrhea, nasal congestion, throat pain, throat swelling, difficulty swallowing, mouth swelling, ear pain, eye pain, visual changes CARDIOVASCULAR: Absent: chest pain, syncope, palpitations, irregular heart rate, lightheadedness , peripheral edema RESPIRATORY: shortness of breath, dyspnea with exertion Absent: cough, orthopnea, wheezing, stridor, hemoptysis GASTROINTESTINAL:nausea, constipation Absent: abdominal pain, abdominal distension, vomiting, diarrhea, melena, hematochezia GENITOURINARY: Absent: dysuria, frequency, urgency, hesitancy, hematuria, flank pain, genital pain MUSCULOSKELETAL: Absent: myalgia, arthralgia, joint swelling, back pain, neck pain SKIN: Absent: rash, itching, pallor HEMATOLOGIC/IMMUNOLOGIC: Absent: easy bleeding, easy bruising, lymphadenopathy, frequent infections ENDOCRINE: Absent: unexplained weight gain, unexplained weight loss, heat intolerance, cold intolerance NEUROLOGIC: Absent: headache, focal weakness or paresthesias, dizziness, unsteady gait, seizure, mental status changes, bladder or bowel incontinence PSYCHIATRIC: Absent: anxiety, depression, suicidal or homicidal ideation, hallucinations. PHYSICAL EXAMINATION Vital Signs - 24 hr 04/12/18 04/12/18 04/12/18 13:24 13:33 13:36 Temperature 98.5 F Pulse Rate 85 Pulse Rate [ 83 81 Apical] Respiratory 22 H 28 H 28 H Rate Blood Pressure 132/102 H Blood Pressure 60/52 L 52/33 L [Right Arm] 04/12/18 04/12/18 04/12/18 13:42 13:50 13:55 Temperature Pulse Rate Pulse Rate [ 80 77 78 Apical] Respiratory 26 H 26 H 26 H Rate Blood Pressure Blood Pressure 69/26 L 55/41 L 107/73 [Right Arm] 04/12/18 04/12/18 04/12/18 14:00 14:55 15:00 Temperature Pulse Rate 77 74 Pulse Rate [ 77 Apical] Respiratory 26 H Rate Blood Pressure 77/54 L 72/43 L Blood Pressure 117/69 [Right Arm] 04/12/18 15:30 Temperature Pulse Rate 71 Pulse Rate [ Apical] Respiratory Rate Blood Pressure 94/86 Blood Pressure [Right Arm] GENERAL: Awake, alert, and fully oriented, on non-rebreather mask HEAD: Normal with no signs of trauma. EYES: PERRLA, EOMI, sclera anicteric, conjunctiva clear. LUNGS: Decreased breath sounds bilaterally HEART: Regular rate and rhythm, normal S1 and S2 without murmur, rub or gallop. ABDOMEN: Soft, nontender, not distended, normoactive bowel sounds. UPPER EXTREMITIES: cool, clammy, 2+ pulses. No cyanosis. No clubbing. Cap refill <2 seconds. No peripheral edema. LOWER EXTREMITIES: palpable DP pulses, cool, clammy LE. +1 pitting edema bilateral NEUROLOGICAL: Cranial nerves II-XII intact. Normal speech. Gait not observed. PSYCHIATRIC: Cooperative. Good eye contact. Appropriate mood and affect. SKIN: no rashes or lesions noted. Laboratory Results - last 24 hr 04/12/18 04/12/18 04/12/18 13:20 13:20 13:20 WBC 30.4 H* RBC 2.92 L Hgb 8.2 L Hct 26.1 L MCV 89.3 MCH 28.0 MCHC 31.4 L RDW 18.0 H Plt Count 331 D MPV 10.1 D Absolute Neuts (auto) 27.5 H Neutrophils % 90.6 H Neutrophils % (Manual) 89.0 H Band Neutrophils % 4.0 Lymphocytes % 2.5 L D Lymphocytes % (Manual) 1.0 L D Monocytes % 6.7 Monocytes % (Manual) 6 Eosinophils % 0.0 D Eosinophils % (Manual) 0.0 D Basophils % 0.2 Basophils % (Manual) 0.0 Myelocytes % (Man) 0 Promyelocytes % (Man) 0 Blast Cells % (Manual) 0 Nucleated RBC % 0 Metamyelocytes 0 D PT with INR 16.20 H INR 1.37 H PTT (Actin FS) 31.2 VBG pH Cancelled POC VBG pCO2 Cancelled POC VBG pO2 Cancelled Mixed VBG HCO3 Cancelled Sodium Potassium Chloride Carbon Dioxide Anion Gap BUN Creatinine Creat Clearance w eGFR Random Glucose Lactic Acid Calcium Total Bilirubin AST ALT Alkaline Phosphatase Troponin I Total Protein Albumin Urine Color Urine Appearance Urine pH Ur Specific [place] Urine Protein Urine Glucose (UA) Urine Ketones Urine Blood Urine Nitrite Urine Bilirubin Urine Urobilinogen Ur Leukocyte Esterase Urine WBC (Auto) Urine RBC (Auto) Ur Epithelial Cells Urine Mucus 04/12/18 04/12/18 04/12/18 13:20 13:20 13:20 WBC RBC Hgb Hct MCV MCH MCHC RDW Plt Count MPV Absolute Neuts (auto) Neutrophils % Neutrophils % (Manual) Band Neutrophils % Lymphocytes % Lymphocytes % (Manual) Monocytes % Monocytes % (Manual) Eosinophils % Eosinophils % (Manual) Basophils % Basophils % (Manual) Myelocytes % (Man) Promyelocytes % (Man) Blast Cells % (Manual) Nucleated RBC % Metamyelocytes PT with INR INR PTT (Actin FS) VBG pH POC VBG pCO2 POC VBG pO2 Mixed VBG HCO3 Sodium 124 L Potassium 6.0 H Chloride 86 L Carbon Dioxide 17 L Anion Gap 21 H BUN 59 H Creatinine 4.7 H Creat Clearance w eGFR 9.27 Random Glucose 212 H Lactic Acid 8.2 H* Calcium 8.6 Total Bilirubin 0.9 AST 7279 H ALT 3742 H Alkaline Phosphatase 124 H Troponin I 0.08 H Total Protein 6.3 L Albumin 2.6 L Urine Color Urine Appearance Urine pH Ur Specific [place] Urine Protein Urine Glucose (UA) Urine Ketones Urine Blood Urine Nitrite Urine Bilirubin Urine Urobilinogen Ur Leukocyte Esterase Urine WBC (Auto) Urine RBC (Auto) Ur Epithelial Cells Urine Mucus 04/12/18 14:42 WBC RBC Hgb Hct MCV MCH MCHC RDW Plt Count MPV Absolute Neuts (auto) Neutrophils % Neutrophils % (Manual) Band Neutrophils % Lymphocytes % Lymphocytes % (Manual) Monocytes % Monocytes % (Manual) Eosinophils % Eosinophils % (Manual) Basophils % Basophils % (Manual) Myelocytes % (Man) Promyelocytes % (Man) Blast Cells % (Manual) Nucleated RBC % Metamyelocytes PT with INR INR PTT (Actin FS) VBG pH POC VBG pCO2 POC VBG pO2 Mixed VBG HCO3 Sodium Potassium Chloride Carbon Dioxide Anion Gap BUN Creatinine Creat Clearance w eGFR Random Glucose Lactic Acid Calcium Total Bilirubin AST ALT Alkaline Phosphatase Troponin I Total Protein Albumin Urine Color Yellow Urine Appearance Slcloudy Urine pH 5.0 Ur Specific [place] 1.014 Urine Protein 2+ H Urine Glucose (UA) Negative Urine Ketones Negative Urine Blood Negative Urine Nitrite Negative Urine Bilirubin Negative Urine Urobilinogen Negative Ur Leukocyte Esterase Trace Urine WBC (Auto) 10 Urine RBC (Auto) 2 Ur Epithelial Cells Few Urine Mucus Rare Active Medications Generic Name Dose Route Start Last Admin Trade Name Freq PRN Reason Stop Dose Admin Chlorhexidine Gluconate 1 applic 04/12/18 22:00 Hibiclens For Decolonization - TP HS PRASHANT Enoxaparin Sodium 113 mg 04/13/18 10:00 Lovenox - SQ DAILY PRASHANT Fludrocortisone Acetate 0.05 mg 04/13/18 10:00 Florinef - PO DAILY PRASHANT Hydrocortisone Sodium Succinate 50 mg 04/12/18 15:45 Solu-Cortef - IVPUSH Q6H PRASHANT Norepinephrine Bitartrate 8, 1,000 mls @ 37.5 mls/hr 04/12/18 14:00 04/12/18 15:30 000 mcg/ Sodium Chloride IV 15 mcg/min TITR PRASHANT 112.5 mls/hr Titration Protocol 5 MCG/MIN Sodium Chloride 1,000 mls @ 1,000 mls/hr 04/12/18 15:07 04/12/18 15:21 Normal Saline - IV 04/12/18 16:06 1,000 mls/hr ASDIR STA Administration Sodium Chloride 1,000 mls @ 125 mls/hr 04/12/18 15:30 Normal Saline - IV ASDIR PRASHANT Morphine Sulfate 45 mg 04/12/18 15:30 Ms Contin - PO TID [facility] Morphine Sulfate 15 mg 04/12/18 15:23 Msir - PO Q6H PRN breakthrough pain Mupirocin 1 applic 04/12/18 22:00 Bactroban Ointment (For Decolonization) - NS 04/17/18 21:59 BID [facility] Pantoprazole Sodium 40 mg 04/13/18 10:00 Protonix - PO DAILY [facility] ASSESSMENT/PLAN: Patient is a 67 year old female with past medical history of HTN, Paroxysmal A.Fib, Type 2 DM, CKD stage 4 (baseline GFR <29) 2/2 Diabetic Nephropathy, Mantle cell lymphoma (not on treatment), ITP s/p splenectomy with multiple relapse, BIBEMS due to shortness of breath for 3 days. #Infectious Disease 1)Multiorgan dysfunction syndrome likely 2/2 Pneumonia -Leukocytosis (30.4), RR >22, Lactic acid 8.2 -Hypotension, unresponsive to IVF boluses -Transaminitis, Acute renal failure -Femoral line placed. -Vasopressors started. On Levophed and Vasopressin -Titrate vasopressors to maintain MAP >65 -IV Hydrocortisone 50mg q6h -Fludrocortisone 0.05mg daily -ID (Dr. Enriquez) consulted. Recommendations appreciated. -IV Meropenem 1g q12h started and Vancomycin 1500mg -Influenza swab ordered -Urine legionella and pneumococcal Ag 2)Lactic acidosis, likely 2/2 septic shock -Lactic acid 8.2 -IVF given -IV zosyn and vanco given at the ED -ID consulted. -will monitor #Pulmonology 1)Acute Hypoxic Respiratory Failure likely 2/2 pneumonia -CXR - infiltrate with fluid and/or atelectasis on the left base -On high-flow nasal oxygen -ABG and CXR daily -On IV Meropenem and Vancomycin -ID consulted. #Cardiovascular 1)Hypertension -Hold home anti-HTN medications 2)Paroxysmal Atrial Fibrillation -Lovenox 110mg sq daily 3)Troponinemia -Trop 0.08 -likely 2/2 demand ischemia -will trend cardiac enzymes #Endocrinology 1)Diabetes Mellitus -Hold home medications -BGM ACHS -Insulin sliding scale implemented -will monitor BMP #Nephrology 1)ARLETTE on CKD: likely 2/2 septic shock -Diabetic nephropathy CKD stage 4 -BUN/Cr 59/4.7 -baseline Cr 1.5-2.0 -IV NS @ 125ml/hr -will continue to monitor 2)Hyperkalemia -K 6.0 -EKG done -Ca gluconate, Insulin and D50 given -monitor BMP 3)Hyponatremia -Na 124 -IV NS @125ml/hr -will monitor BMP #Gastroenterology 1)Acute Transaminitis -likely 2/2 septic shock -AST 7279 ALT 3742 Alk Phos 124 -IV fluids given -will monitor LFTs #Heme-Onc 1)ITP s/p splenectomy -Plt ct stable at 331 -will continue to monitor CBC 2)Positive antiphospholipid antibody -Heme-Onc (Dr. Ty) consulted. 3)Mantle cell lymphoma -not on any standing treatment -Oncology consulted. #FEN -IV NS @ 125 ml/hr -HyperK, HypoNa, replete PRN -routine BMP monitoring -Diabetic diet #Prophylaxis 1)DVT - Lovenox 110mg sq daily 2)GI - Protonix 40mg IV daily #Disposition -DNR/DNI -admit to ICU for closer monitoring. Dispo: We will continue to follow the patient. Thank you for this consultative opportunity. Visit type - Emergency Visit Emergency Visit: Yes ED Registration Date: 04/12/18 Care time: The patient presented to the Emergency Department on the above date and was hospitalized for further evaluation of their emergent condition. - New Patient This patient is new to me today: Yes Date on this admission: 04/13/18 - Critical Care Critical Care patient: Yes Total Critical Care Time (in minutes): 45 Critical Care Statement: The care of this patient involved high complexity decision making to prevent further life threatening deterioration of the patient 's condition and/or to evaluate & treat vital organ system(s) failure or risk of failure.
[2018-04-12] MEDS ORDERED: ONDANSETRON 4 MG/2 ML VIAL IVPUSH PRN (16:10)
[2018-04-12] MEDS ORDERED: VASOPRESSIN 20 UNITS/ML VIAL IV ONE (16:12)
[2018-04-12] MEDS ORDERED: VASOPRESSIN 50 UNITS in SODIUM CHLORIDE 97.5 ML IVPB SCH (16:15)
[2018-04-12] MEDS: VASOPRESSIN 50 UNITS in SODIUM CHLORIDE 97.5 ML IVPB SCH ×2 (16:24→16:55)
[2018-04-12] MEDS ORDERED: VANCOMYCIN 500 MG in DEXTROSE 5%-WATER - 100 ML IVPB ONE (16:37)
[2018-04-12] MEDS ORDERED: CALCIUM GLUCONATE 10% - 1,000 MG/10 ML VIAL IVPB ONE (16:58)
--- NOTE | 2018-04-12 16:58 | CON.ID ---
Consult Consult Specialty:: infectious disease Referred by:: hospitalist service Reason for Consultation:: shock - History of Present Illness Chief Complaint: nausea, sob History of Present Illness: 67 yo female with phx splenectomy for lymphoma, known mantel cell lymphoma, last rituxan 03/13/18, recent right THR 03/27 admitted postop with chest pain, discharged 04/06 on lovenex for possible PE indeterminate v/q scan developed nausea at the NH several days ago worsening sob over the last day has not been eating last several days no urine output today, not sure she urinated yesterday has been constipated and developed abdominal discomfort yesterday had an enema last night and a BM today abdominal pain is gone she is alert and on 100 % NRB mask follow commands and answers questions dnr/dni - History Source History Provided By: Patient, Family Member Limitations to Obtaining History: No Limitations - Past Medical History Cardio/Vascular: Yes: HTN. No: AFIB Pulmonary: Yes: COPD, Other (elevated left hemidiaphragm) Gastrointestinal: Yes: Diverticulitis (osteoarthritis right hip). No: Ascites Hepatobiliary: No: Cirrhosis Renal/: Yes: Renal Calculi, UTI, Other (bladder dysfunction). No: Renal Failure Psych: Yes: Anxiety, Depression Musculoskeletal: Yes: Chronic low back pain, Osteoarthritis (right hip) Rheumatology: Yes: Other (degenerative spine disease) Endocrine: Yes: Diabetes Mellitus Additional Medical History: ITP, Mantle Cell Lymphoma - Past Surgical History Past Surgical History: Yes: Joint Replacement (right hip replacement 03/22), Laminectomy (cervical laminectomy x2 (2001)), Splenectomy, Thoracotomy - Alcohol/Substance Use Hx Alcohol Use: No History of Substance Use: reports: None - Smoking History Smoking history: Former smoker Have you smoked in the past 12 months: No Aproximately how many cigarettes per day: 0 If you are a former smoker, when did you quit?: 2001 - Social History Usual Living Arrangement: Custodial ADL: Support Services 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, , 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 History of Recent Travel: No Home Medications - Allergies Allergies/Adverse Reactions: Allergies Allergy/AdvReac Type Severity Reaction Status Date / Time pregabalin [From Lyrica] Allergy Severe Swelling Verified 04/12/18 13:26 ciprofloxacin HCl Allergy Intermediate Itching Verified 04/12/18 13:26 [From Cipro] levofloxacin [From Levaquin] Allergy Intermediate Rash Verified 04/12/18 13:26 atorvastatin calcium Allergy Mild muscle Verified 04/12/18 13:26 [From Lipitor] aches - Home Medications Home Medications: Ambulatory Orders Sertraline HCl [Zoloft -] 50 mg PO DAILY 08/28/14 Alprazolam [Xanax] 0.5 mg PO Q8H PRN #0 tablet 09/10/14 Pantoprazole Sodium [Protonix -] 40 mg PO DAILY #0 tablet.ec 09/10/14 Allopurinol [Zyloprim -] 150 mg PO DAILY #60 tablet 04/07/16 Albuterol Sulfate Inhaler - [Ventolin HFA Inhaler -] 1 - 2 inh PO PRN 08/09/16 Docusate Sodium [Colace -] 100 mg PO BID #60 tab-cap 10/29/16 Acetaminophen [Tylenol .Regular Strength -] 650 mg PO PRN 05/26/17 Calcium Carbonate - 650 mg PO BID #60 tablet 08/31/17 Morphine Sulfate 15 mg PO QID PRN #30 tablet MDD 60mg 08/31/17 Amlodipine Besylate [Norvasc -] 5 mg PO DAILY #30 tablet 09/25/17 Budesonide/Formeterol Fumarate [SYMBICORT 160/4.5mcg -] 2 puff IH BID #1 inhaler 09/25/17 Metoprolol Tartrate [Lopressor -] 25 mg PO BID #60 tablet 09/25/17 Atovaquone [Mepron Oral Solution -] 1,500 mg PO DAILY@0800 #1 bottle 10/25/17 Furosemide [Lasix -] 40 mg PO DAILY #30 tablet 10/25/17 Glyburide 4 mg PO DAILY 03/19/18 Rituximab [Rituxan -] 0 mg IVPB Q2M 03/19/18 Bacitracin - [Bacitracin Topical Ointment -] 1 applic TP BID tube 04/06/18 Enoxaparin [Lovenox -] 100 mg SQ BID disp.syrin 04/06/18 Morphine *Sr* [Ms Contin -] 45 mg PO Q8H tablet.sa MDD 3 04/06/18 Nystatin Powder [Nystop Powder -] 1 applic TP BID applic 04/06/18 Family Disease History - Family Disease History Family Disease History: Diabetes: Mother, Heart Disease: Mother, Other: Father ( thrombocytopenia), Daughter (hypothyroidism) Review of Systems - Review of Systems Constitutional: reports: Loss of Appetite, Weakness Eyes: reports: No Symptoms HENT: reports: No Symptoms. denies: Throat Pain Neck: reports: No Symptoms Cardiovascular: reports: No Symptoms Respiratory: reports: SOB Gastrointestinal: reports: Constipation, Nausea Genitourinary: reports: No Symptoms Physical Exam Vital Signs: Vital Signs Temperature 98.5 F 04/12/18 13:24 Pulse Rate 71 04/12/18 15:30 Respiratory Rate 22 H 04/12/18 15:21 Blood Pressure 94/86 04/12/18 15:30 O2 Sat by Pulse Oximetry (%) 100 04/12/18 15:40 Constitutional: Yes: Anxious, Diaphoresis, Other (cool) Eyes: Yes: Conjunctiva Clear HENT: Yes: Atraumatic, Normocephalic. No: Pharyngeal Erythema, Thrush Neck: Yes: Supple, Trachea Midline Cardiovascular: Yes: Regular Rate and Rhythm Respiratory: Yes: Diminished (left base) Gastrointestinal: Yes: Normal Bowel Sounds, Soft. No: Tenderness, Epigastrium Extremities: Yes: WNL Integumentary: Yes: Other (skin tear 10 cm left inguinal fold-clean and dry) Wound/Incision: Yes: Other (hip incision right hip-clean and dry) Psychiatric: Yes: Alert Labs: CBC, BMP 04/12/18 13:20 04/12/18 13:20 Imaging - Results Chest X-ray: Report Reviewed, Image Reviewed Problem List - Problems (1) Septic shock Code(s): A41.9 - SEPSIS, UNSPECIFIED ORGANISM; R65.21 - SEVERE SEPSIS WITH SEPTIC SHOCK (2) Acute on chronic renal failure Code(s): N17.9 - ACUTE KIDNEY FAILURE, UNSPECIFIED; N18.9 - CHRONIC KIDNEY DISEASE, UNSPECIFIED Qualifiers: Chronic kidney disease stage: stage 4 (severe) (3) Shock liver Code(s): K72.00 - ACUTE AND SUBACUTE HEPATIC FAILURE WITHOUT COMA Assessment/Plan severe sepsis in this 67 yo female with lymphoma, s/p splenectomy- immunocompromised host recent THR SOB, dense LLL retrocardiac area on cxray (looks worse then before) christine hyponatremia abnl lfts- shock liver agree with aggressive ivf vancomycin/meropenem add zithromax (one dose) pending urinary antigens-recent legionella in the community liver sonogram cultures influenza screen urinary antigens CPK critically ill patient over 45 minutes spent in the care of this critically ill ICU patient overall prognosis poor- unfortunately in multiorgan failure with profound acidosis on admission to the ER d/w daughter at length at bedside
[2018-04-12] MEDS ORDERED: INSULIN REGULAR HUMAN 100 UNITS/ML *VIAL IVPUSH ONE ×2 (16:59→20:28)
[2018-04-12] MEDS ORDERED: DEXTROSE 50%-WATER - 25 GM/50 ML VIAL IVPUSH ONE ×2 (17:00→20:28)
[2018-04-12] MEDS ORDERED: MEROPENEM 1 GM in DEXTROSE 5%-WATER 100 ML IVPB SCH (17:00)
[2018-04-12] MEDS ORDERED: ALBUTEROL SO4 0.5 % INH SOLN 2.5 MG/0.5 ML VIAL.NEB. NEB PRN (17:00)
[2018-04-12] MEDS ORDERED: PROMETHAZINE HCL 25 MG/1 ML VIAL IVPB PRN (17:01)
[2018-04-12] MEDS: HYDROCORTISONE SOD SUCCINATE 100 MG/2 ML VIAL IVPUSH SCH ×2 (17:02→21:00)
[2018-04-12 17:19] VITALS: TEMP 31
[2018-04-12] MEDS ORDERED: morphine SULFATE 4 MG/ML VIAL IVPUSH PRN (17:20)
[2018-04-12] MEDS ORDERED: CALCIUM GLUCONATE 10% - 1,000 MG/10 ML VIAL ONE (17:44)
[2018-04-12] MEDS ORDERED: DEXTROSE 50%-WATER 25 GM/50 ML DISP.SYRIN ONE ×3 (17:45→21:25)
[2018-04-12 18:02] VITALS: BP 151/70; PULSE 86
[2018-04-12] MEDS ORDERED: OXYMETAZOLINE 0.05% NASAL SOLUTION 15 ML BOTTLE NS PRN (18:02)
[2018-04-12 18:19] LABS: ARTERIAL BLD GAS O2 SATURATION 92.8 % (90-98.9); ARTERIAL BLOOD GAS PCO2 31.1 mmHg (35-45); ARTERIAL BLOOD GAS PO2 98.2 mmHg (80-100)
[2018-04-12 18:20] LABS: ALLENS TEST POSITIVE
[2018-04-12 18:24] LABS: ARTERIAL BLOOD GAS BASE EXCESS -17.9 meq/l (-2-2); ARTERIAL BLOOD GAS pH 7.12 (7.35-7.45)
[2018-04-12] MEDS ORDERED: AZITHROMYCIN IVPB 500 MG/250 ML BAG IVPB ONE (18:43)
[2018-04-12] MEDS ORDERED: DEXTROSE 5%-WATER - 1,000 ML with SODIUM BICARBONATE 8.4% - 50 MEQ IV SCH (18:45)
[2018-04-12] MEDS ORDERED: DEXTROSE 5%-WATER - 1,000 ML with SODIUM BICARBONATE 8.4% - 150 MEQ IV SCH (19:00)
[2018-04-12 20:08] LABS: ALBUMIN 2.2 g/dl (3.4-5.0); ALK PHOS 117 U/L (45-117); ANION GAP 23 MMOL/L (8-16); BILIRUBIN,TOTAL 1.3 mg/dL (0.2-1); BLOOD UREA NITROGEN 55 mg/dL (7-18); CALCIUM 7.4 mg/dL (8.5-10.1); CHLORIDE 90 mmol/L (98-107); CO2 13 mmol/L (21-32); CREATININE 4.4 mg/dL (0.55-1.3); POTASSIUM 5.9 mmol/L (3.5-5.1); SGOT/AST 7345 U/L (15-37); SGPT/ALT 3783 U/L (13-61); SODIUM 126 mmol/L (136-145); TOT PROT 5.3 g/dl (6.4-8.2)
[2018-04-12 20:11] LABS: GLUCOSE,RANDOM 316 mg/dL (74-106)
[2018-04-12] MEDS ORDERED: ALBUTEROL SO4 0.083% IH SOL 2.5 MG/3 ML VIAL.NEB. NEB ONE (20:28)
[2018-04-12] MEDS ORDERED: MORPHINE SULFATE 2 MG/ML VIAL IVPUSH ONE (20:44)
[2018-04-12] MEDS ORDERED: LORazepam 2 MG/ML SDV VIAL IVPUSH ONE (20:46)
[2018-04-12] MEDS ORDERED: ATROPINE SULFATE 1 MG/10 ML DISP.SYRIN ONE (21:30)
--- NOTE | 2018-04-12 21:54 | PN ---
Progress Note (short form) - Note Progress Note: Patient became Bradycardic at 2128 Continued to maintain a saturation >95% on high flow Atropine 0.5mg given at 2130 Patient became hypoxic and ambu-bag was started 1 amp of Sodium bicarb and Calcium gluconate given at 2131 Patients heart rhythm converted to asystole with no pulse and time of called at 2133 Patients family at bedside Minerva Albarran [id number]
[2018-04-12] MEDS ORDERED: METOPROLOL TARTRATE 25 MG TABLET (FP) PO SCH (22:00)
[2018-04-12] MEDS ORDERED: ENOXAPARIN NA (PORCINE) 100 MG/1 ML DISP.SYRIN SQ SCH (22:00)
[2018-04-12] MEDS ORDERED: CHLORHEXIDINE GLUCONATE 4% CLEANSER FOR DECOLONIZATION TP SCH ×2 (22:00)
[2018-04-12] MEDS ORDERED: NYSTATIN POWDER 100,000 UNITS/GM - 15 GM TOPICAL POWDER TP SCH (22:00)
[2018-04-12] MEDS ORDERED: BUDESONIDE/FORMETEROL FUMARATE 160/4.5 mcg INHALER IH SCH (22:00)
[2018-04-12] MEDS ORDERED: MUPIROCIN 2% TOPICAL OINTMENT FOR DECOLONIZATION NS SCH ×2 (22:00)
[2018-04-12] MEDS ORDERED: INSULIN (NOVOLOG) ASPART 100 UNITS/ML 10ML VIAL SQ SCH (22:00)
[2018-04-12] MEDS ORDERED: BACITRACIN 15 GM TUBE TOPICAL OINTMENT TP SCH (22:00)
[2018-04-13] MEDS ORDERED: ATOVAQUONE 750 MG/5 ML (UNIT-DOSE PACKAGING) PO SCH (08:00)
[2018-04-13] MEDS ORDERED: SERTRALINE HCL 25 MG TABLET (FP) PO SCH (10:00)
[2018-04-13] MEDS ORDERED: ALLOPURINOL 100 MG TABLET (FP) PO SCH (10:00)
[2018-04-13] MEDS ORDERED: DOCUSATE SODIUM 100 MG CAPSULE (FP) PO SCH (10:00)
[2018-04-13] MEDS ORDERED: PANTOPRAZOLE 40 MG TABLET (FP) PO SCH (10:00)
[2018-04-13] MEDS ORDERED: ENOXAPARIN NA (PORCINE) 120 MG/0.8 ML DISP.SYRIN SQ SCH ×2 (10:00)
[2018-04-13] MEDS ORDERED: FLUDROCORTISONE ACETATE 0.1 MG TABLET (FP) PO SCH (10:00)
== END 2018-04-12 21:40 | disposition expired | DRG 871 ==
LOC: JER 12:56 → JERBED 14:22 → JICU 15:47
PROVIDERS: ADMIT Internal Medicine; ATTEND Internal Medicine
PROC: 06HM33Z Insertion of Infusion Device into Right Femoral Vein, Percutaneous Approach (ICD-10-PCS; principal; 2018-04-12)
DX: A41.89 Other specified sepsis (principal); R65.21 Severe sepsis with septic shock; K72.00 Acute and subacute hepatic failure without coma; J18.9 Pneumonia, unspecified organism; J96.01 Acute respiratory failure with hypoxia; C85.80 Other specified types of non-Hodgkin lymphoma, unspecified site; N17.9 Acute kidney failure, unspecified; E87.2 Acidosis; I24.8 Other forms of acute ischemic heart disease; N18.4 Chronic kidney disease, stage 4 (severe); E87.1 Hypo-osmolality and hyponatremia; D69.3 Immune thrombocytopenic purpura; I48.0 Paroxysmal atrial fibrillation; I12.9 Hypertensive chronic kidney disease with stage 1 through stage 4 chronic kidney disease, or unspecified chronic kidney disease; R74.8 Abnormal levels of other serum enzymes; D72.829 Elevated white blood cell count, unspecified; E11.22 Type 2 diabetes mellitus with diabetic chronic kidney disease; I45.10 Unspecified right bundle-branch block; K57.90 Diverticulosis of intestine, part unspecified, without perforation or abscess without bleeding; E78.5 Hyperlipidemia, unspecified; E66.9 Obesity, unspecified; Z68.36 Body mass index [BMI] 36.0-36.9, adult; E87.5 Hyperkalemia; J44.9 Chronic obstructive pulmonary disease, unspecified; F41.8 Other specified anxiety disorders; N31.9 Neuromuscular dysfunction of bladder, unspecified; M54.5 Low back pain; D69.6 Thrombocytopenia, unspecified; M16.11 Unilateral primary osteoarthritis, right hip; Z66 Do not resuscitate; Z90.81 Acquired absence of spleen; Z87.891 Personal history of nicotine dependence; Z96.641 Presence of right artificial hip joint
CPT/HCPCS: 36415; 36600; 71045-TC-FY; 80053; 81003; 81015; 82550; 82553; 82803; 83605; 84484; 85025; 85610; 85730; 87040; 87086; 87186; 87899; 99285-25; J0131; J7030